=== PATIENT | female | born 1955 | race Caucasian/White ===

== ENCOUNTER 2018-09-17 17:47 | Inpatient (IN) | payer MEDICAID, OTHER ==
[~2018-09-17] VITALS: Ht 167.6 cm; Wt 127.7 kg
[2018-09-17] MEDS ORDERED: NS IV 1000 ML 1,000 ML IV SCH (17:59)
[2018-09-17] MEDS ORDERED: PIPERACILLIN/TAZOBACTAM (BULK) 3.375 GM in NS (IVPB) 100 ML IV STA (17:59)
[2018-09-17] MEDS ORDERED: VANCOMYCIN INJECTION 1,000 MG in NS (IVPB) 250 ML IV SCH (18:15)
[2018-09-17] MEDS ORDERED: NS 100 ML (IVPB) BAG IV ONE (18:15)
[2018-09-17] MEDS ORDERED: IOHEXOL 350 MG/ML 100 ML (OMNIPAQUE 350) VIAL IV ONE (18:15)
[2018-09-17] MEDS ORDERED: CATHETER FLUSH 10 ML SYR IV PRN (18:15)
[2018-09-17] MEDS ORDERED: HOLD METFORMIN - RECEIVED CONTRAST 20 ML VIAL IV SCH (18:15)
[2018-09-17 18:21] LABS: HEMATOCRIT 39 % (35-52); MEAN CORPUSCULAR HEMOGLOBIN 33 PG (25-34); MEAN CORPUSCULAR HGB CONC 33 G/DL (32-36); MEAN CORPUSCULAR VOLUME 100 FL (80-99); PLATELET COUNT 235 10^3/uL (130-400); RED CELL DISTRIBUTION WIDTH 13.7 % (10.0-14.5); WHITE BLOOD COUNT 9.1 10^3/uL (4.3-11.0)
[2018-09-17 18:22] LABS: BASOPHILS % (AUTO) 0 % (0-10); EOSINOPHILS # (AUTO) 0.1 10^3/uL (0.0-0.3); EOSINOPHILS % (AUTO) 1 % (0-10); LYMPHOCYTES # (AUTO) 2.7 X 10^3 (1.0-4.0); LYMPHOCYTES % (AUTO) 29 % (12-44); MONOCYTES # (AUTO) 0.7 X 10^3 (0.0-1.0); MONOCYTES % (AUTO) 8 % (0-12); NEUTROPHILS # (AUTO) 5.6 X 10^3 (1.8-7.8); NEUTROPHILS % (AUTO) 62 % (42-75)
[2018-09-17] MEDS ORDERED: diphenhydrAMINE 50 MG/ML INJ (BENADRYL) IVP ONE (18:30)
[2018-09-17] MEDS ORDERED: methylPREDNISolone 125 MG (Solu-MEDROL) VIAL IVP ONE (18:30)
[2018-09-17 18:40] LABS: CREATININE SERUM 1.04 MG/DL (0.60-1.30); POTASSIUM 4.3 MMOL/L (3.6-5.0)
[2018-09-17 18:41] LABS: BILIRUBIN,TOTAL 0.6 MG/DL (0.1-1.0); CALCIUM 9.4 MG/DL (8.5-10.1); TOTAL PROTEIN 7.6 GM/DL (6.4-8.2)
[2018-09-17 18:42] LABS: ALBUMIN 3.8 GM/DL (3.2-4.5)
[2018-09-17 18:45] LABS: ERYTHROCYTE SEDIMENTATION RATE 12 MM/HR (0-30)
[2018-09-17] MEDS ORDERED: ATOR40TA70 PO (18:47)
[2018-09-17] MEDS ORDERED: LOSA50TA63 PO (18:47)
[2018-09-17] MEDS ORDERED: AMIT50TA3 PO (18:47)
[2018-09-17] MEDS ORDERED: GBPN600T PO (18:47)
[2018-09-17] MEDS ORDERED: FLUO40CA PO (18:47)
[2018-09-17] MEDS ORDERED: OXYB5TAB9 PO (18:47)
[2018-09-17] MEDS ORDERED: IBUP-1780 PO (18:47)
[2018-09-17] MEDS ORDERED: METF-399 PO (18:47)
[2018-09-17] MEDS ORDERED: LIRA0.6P3 SC (18:47)
--- NOTE | 2018-09-17 18:55 | NUR ---
REPORT TO GIOVANNI ALFREDO.
[2018-09-17] MEDS ORDERED: VANCOMYCIN 1000 MG/VIAL ONE (19:05)
[2018-09-17] MEDS ORDERED: NS (IVPB) 250 ML ONE (19:07)
[2018-09-17] MEDS ORDERED: PIPERACILLIN/TAZO 4.5 GM VIAL (ZOSYN) IV ONE (19:07)
--- NOTE | 2018-09-17 19:26 | Diagnostic Imaging Report ---
INDICATION: Left eye swelling and drainage. CT of the orbits with contrast. FINDINGS: There is soft tissue swelling along the left eyelid in the preseptal tissues. There is no evidence of post bulbar edema. The extraocular muscles and optic nerve appear normal. The right orbit appears normal. The globes are symmetrical and normal. There is normal enhancement of the surrounding vessels. There are no bony abnormalities. The paranasal sinuses are well aerated and clear. Nasal septum is midline. IMPRESSION: Preseptal Periorbital edema with no evidence of inflammatory changes posterior to the bulb within the orbits bilaterally. Dictated by: Dictated on workstation # [id number]
--- NOTE | 2018-09-17 20:26 | ED EENT ---
History of Present Illness General Chief Complaint: Eye Problems Stated Complaint: EYE PAIN AND DRAINAGE Nursing Triage Note: PT ARRIVAL PER POV WITH REPORT OF LEFT EYE AREA PAIN AND DRAINAGE. PT BEGAN EYE IRRITATION MONDAY NIGHT AND WORSENING NOW WITH EXTREME REDNESS AND SWELLING INTO TISSUE AROUND ORBIT/CHEEK. NO EYE PAIN REPORTED. Source: patient Exam Limitations: no limitations History of Present Illness Date Seen by Provider: Sep 17, 2018 Time Seen by Provider: 18:00 Initial Comments Patient is a 63 diabetic who presents with redness swelling around left eye starting approximately 3 days prior to ED arrival. Patient denies trauma to that region. No history of MRSA. Pressure around upper eyelid has gradually spread around the orbit with yellow crusting on the surface of eyelid. Patient denies change in vision, or pain with extraocular movement. Blood sugars have also been elevated today in the low 200 region. Patient has a low-grade fever with temperature 99.9F. Patient denies nausea vomiting, sweats. Reports mild dysuria, but denies abdominal pain. No other acute symptoms or complaints. Timing/Duration: gradual Location: eye (L) Prearrival Treatment: no prearrival treatment Modifying Factors: Worse With Activity; Improves With Other Associated Symptoms: fever, malaise Allergies and Home Medications Allergies Uncoded Allergies: IV CONTRAST (Adverse Reaction, Mild, HIVES, 09/17/18) Patient Home Medication List Home Medication List Reviewed: Yes Review of Systems Review of Systems Constitutional: see HPI Eyes: See HPI Ears: See HPI Nose: see HPI Mouth: see HPI Throat: see HPI Respiratory: see HPI Cardiovascular: see HPI Musculoskeletal: see HPI Neurological: See HPI Hematologic/Lymphatic: See HPI Past [id number] Hx Past Med/Social Hx: Reviewed Nursing Past Med/Soc Hx Patient Social History Alcohol Use: Occasionally Uses Recreational Drug Use: No Smoking Status: Former Smoker Type Used: Cigarettes 2nd Hand Smoke Exposure: No Recent Foreign Travel: No Contact w/Someone Who Travel: No Recent Infectious Disease Expo: No Recent Hopitalizations: No Physical Abuse: No Sexual Abuse: No Mistreated: No Fear: No Immunizations Up To Date Tetanus Booster (TDap): Unknown Seasonal Allergies Seasonal Allergies: No Past Medical History Surgeries: Yes (CYSTOSCOPIES, DILITATION URETHRAL STRICTURE) Appendectomy, Bladder Surgery, Section, Eye Surgery, Gallbladder, Tonsillectomy, Tubal Ligation Respiratory: Yes COPD Cardiac: Yes High Cholesterol, Hypertension Neurological: Yes (CVA W/ R SIDED WEAKNESS) Neuropathy, Stroke Genitourinary: Yes (TRIGONITIS) UTI-Chronic Musculoskeletal: Yes (CHRONIC KNEE PAIN) Arthritis Endocrine: Yes (MORBID OBESITY) Diabetes, Insulin dep Psychosocial: Yes Depression Integumentary: Yes (L ORBITAL CELLULITIS, 2018 CHEEK CELLULITIS) Recent Skin Changes Visual Acuity : Eye Location: Left Physical Exam Vital Signs Vital Signs - First Documented 09/17/18 17:52 Temp 99.9 Pulse 83 Resp 18 B/P (MAP) 130/69 (89) Pulse Ox 93 O2 Delivery Room Air Height, Weight, BMI Height: 5'6.00" Weight: 295lbs. oz. 133.435935op; BMI Method:Stated General Appearance: WD/WN, no apparent distress Eyes: left eye lid inflammation, left eye other (cellulitis involving left upper lower eyelids, and maxilla. No sinus tenderness to palpation, no pain with ocular movement.); bilateral eye normal inspection, bilateral eye PERRL, bilateral eye EOMI Nose: normal inspection Mouth/Throat: normal mouth inspection, pharynx normal Neck: non-tender, supple Cardiovascular: normal peripheral pulses, regular rate, rhythm Respiratory: chest non-tender, lungs clear Gastrointestinal: normal bowel sounds, soft Neurologic/Psychiatric: executive administrative asst II-XII nml as tested, alert, oriented x 3 Skin: other Progress/Results/Core Measures Results/Orders Lab Results Laboratory Tests Test 09/17/18 18:00 Range/Units White Blood Count 9.1 4.3-11.0 10^3/uL Red Blood Count 3.92 L 4.35-5.85 10^6/uL Hemoglobin 13.0 11.5-16.0 G/DL Hematocrit 39 35-52 % Mean Corpuscular Volume 100 H 80-99 FL Mean Corpuscular Hemoglobin 33 25-34 PG Mean Corpuscular Hemoglobin Concent 33 32-36 G/DL Red Cell Distribution Width 13.7 10.0-14.5 % Platelet Count 235 130-400 10^3/uL Mean Platelet Volume 9.0 7.4-10.4 FL Neutrophils (%) (Auto) 62 42-75 % Lymphocytes (%) (Auto) 29 12-44 % Monocytes (%) (Auto) 8 0-12 % Eosinophils (%) (Auto) 1 0-10 % Basophils (%) (Auto) 0 0-10 % Neutrophils # (Auto) 5.6 1.8-7.8 X 10^3 Lymphocytes # (Auto) 2.7 1.0-4.0 X 10^3 Monocytes # (Auto) 0.7 0.0-1.0 X 10^3 Eosinophils # (Auto) 0.1 0.0-0.3 10^3/uL Basophils # (Auto) 0.0 0.0-0.1 10^3/uL Erythrocyte Sedimentation Rate 12 0-30 MM/HR Sodium Level 142 135-145 MMOL/L Potassium Level 4.3 3.6-5.0 MMOL/L Chloride Level 104 98-107 MMOL/L Carbon Dioxide Level 26 21-32 MMOL/L Anion Gap 12 5-14 MMOL/L Blood Urea Nitrogen 29 H 7-18 MG/DL Creatinine 1.04 0.60-1.30 MG/DL Estimat Glomerular Filtration Rate 54 BUN/Creatinine Ratio 28 Glucose Level 163 H 70-105 MG/DL Lactic Acid Level 1.56 0.50-2.00 MMOL/L Calcium Level 9.4 8.5-10.1 MG/DL Corrected Calcium 9.6 8.5-10.1 MG/DL Total Bilirubin 0.6 0.1-1.0 MG/DL Aspartate Amino Transf (AST/SGOT) 14 5-34 U/L Alanine Aminotransferase (ALT/SGPT) 14 0-55 U/L Alkaline Phosphatase 68 40-136 U/L Total Protein 7.6 6.4-8.2 GM/DL Albumin 3.8 3.2-4.5 GM/DL My Orders Orders - [facility] DO Diphenhydramine Injection (Benadryl Inje (09/17/18 18:30) Methylprednisolone Sod Succ (Solu-Medrol (09/17/18 18:30) Vancomycin Injection (Vancomycin Injecti (09/17/18 19:05) Ns (Ivpb) (Sodium Chloride 0.9%) (09/17/18 19:07) Piperacillin Sodium/Tazobactam (Zosyn Vi (09/17/18 19:07) Medications Given in ED Current Medications Medications Dose Ordered Sig/Suzi Route Start Time Stop Time Status Last Admin Dose Admin Diphenhydramine HCl 50 mg ONCE ONCE IVP 09/17/18 18:30 09/17/18 18:31 DC 09/17/18 18:49 50 MG Iohexol 100 ml ONCE ONCE IV 09/17/18 18:15 09/17/18 18:16 DC 09/17/18 19:07 75 ML Methylprednisolone Sodium Succinate 125 mg ONCE ONCE IVP 09/17/18 18:30 09/17/18 18:31 DC 09/17/18 18:48 125 MG Sodium Chloride 10 ml NEEDED PRN IV 09/17/18 18:15 09/17/18 19:07 10 ML Sodium Chloride 100 ml ONCE ONCE IV 09/17/18 18:15 09/17/18 18:16 DC 09/17/18 19:07 100 ML Vital Signs/I&O 09/17/18 17:52 Temp 99.9 Pulse 83 Resp 18 B/P (MAP) 130/69 (89) Pulse Ox 93 O2 Delivery Room Air Blood Pressure Mean: 89 Departure Communication (Admissions) No findings of orbital cellulitis on CT imaging study. Lab, reviewed. IV Zosyn and vancomycin initiated. Patient resting comfortably. Dr. 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 Oneal accepts patient Departure-Patient Inst. Decision time for Depature: 20:00 WE[facility] ELLER DO Sep 17, 2018 20:26
[2018-09-17] MEDS ORDERED: CALCIUM CARBONATE 500 MG (TUMS) TAB.CHEW PO PRN (21:15)
[2018-09-17] MEDS ORDERED: fentaNYL INJECTION 100 MCG/2 ML AMP IVP PRN (21:15)
[2018-09-17] MEDS ORDERED: PIPERACILLIN/TAZOBACTAM (BULK) 4.5 GM in NS (IVPB) 100 ML IV SCH (21:15)
[2018-09-17] MEDS ORDERED: LOPERAMIDE 2 MG (IMODIUM) TABLET PO PRN (21:15)
[2018-09-17] MEDS ORDERED: ONDANSETRON 4 MG (ZOFRAN) ORAL DISSOLVE TAB PO PRN ×2 (21:15→21:45)
[2018-09-17] MEDS ORDERED: ACETAMINOPHEN 500 MG TAB (TYLENOL) PO PRN (21:15)
[2018-09-17] MEDS ORDERED: IBUPROFEN TABLET 200 MG TAB PO PRN (21:15)
[2018-09-17] MEDS ORDERED: VANCOMYCIN INJECTION 0.1 MG in NS (IVPB) 250 ML IV SCH (21:15)
[2018-09-17] MEDS ORDERED: MELATONIN 3 MG TABLET PO PRN (21:15)
[2018-09-17] MEDS ORDERED: ALPRAZolam 0.25 MG (XANAX) TAB PO PRN (21:15)
[2018-09-17] MEDS ORDERED: diphenhydrAMINE 25 MG TAB (BENADRYL) PO PRN (21:15)
[2018-09-17] MEDS ORDERED: DOCUSATE SODIUM 100 MG (COLACE) CAP PO PRN (21:15)
[2018-09-17] MEDS ORDERED: ONDANSETRON 4 MG/2 ML (SDV) Z0FRAN IVP PRN (21:15)
[2018-09-17 21:30] VITALS: BP 127/75
--- NOTE | 2018-09-17 21:30 | NUR ---
MORALES WALKER admitted to room 408-1, with an admitting diagnosis of PERIORBITAL CELLULITIS , on 09/17/18 from ED via EMS, accompanied by EMS STAFF.MORALES WALKER introduced to surroundings, call light, bed controls, phone, TV, temperature control, lights, meal times, smoking policy, visitor policy, side rail policy, bathrooms and showers. Patient Rights given to patient in the handbook.MORALES WALKER verbalizes understanding that [facility] is not responsible for the loss or damage to any personal effects or valuables that are kept in the patients posession during their hospitalization.
[2018-09-17] MEDS: HYDROcodone/APAP 5 MG/325 MG (LORTAB) TAB PO PRN (22:06)
[2018-09-17] MEDS ORDERED: VANCOMYCIN 500 MG/VIAL IV ONE (22:51)
[2018-09-17] MEDS ORDERED: VANCOMYCIN INJECTION 1GM (OMNI 250 ML IV ONE (22:52)
[2018-09-17] MEDS ORDERED: NS IV 1000 ML 1,000 ML ONE (22:54)
[2018-09-17] MEDS ORDERED: WATER (STERILE) FOR INJECTION 10 ML ONE (23:00)
--- OUTSIDE RECORDS SUMMARY | 2018-09-17 23:16 | XMS REPORT ---
Author Author Migration, Doctor Organization [facility] Address Unknown Phone Unavailable Care Team Providers Care Vacuum Spindle Sander Name Role Phone Migration, Doctor Unavailable Unavailable PROBLEMS Type Condition ICD9-CM Code WUQ21-PL Code Onset Dates Condition Status SNOMED Code Problem CAD (coronary artery disease) I25.10 Active 15532412 Problem Osteoarthritis of knees, bilateral M17.0 Active 777284059 Problem Essential hypertension I10 Active 37907639 Problem Diabetes E11.9 Active 31743179 Problem Arthritis M19.90 Active 3409625 Problem Morbid obesity E66.01 Active 167596571 Problem Hyperlipemia E78.5 Active [id number] ALLERGIES No Information ENCOUNTERS Encounter Location Date Diagnosis [place] [id number] [place] [address] Jul, [place] [id number] [place] [address] Apr, [place] [address] [address] Mar, Pustular lesion L08.9 and Encounter for immunization Z23 [place] [id number] [place] [address] Feb, [place] [id number] [place] [address] Dec, [place] [id number] [place] [address] Dec, [place] [address] [address] Dec, Diabetes E11.9 ; Essential hypertension I10 ; Arthritis M19.90 ; Urinary frequency R35.0 ; Routine adult health maintenance Z00.00 and BMI 45.0- 49.9, adult Z68.42 [place] [id number] [place] [address] Dec, [facility] [id number] [place] [address] Dec, [facility] [id number] [place] [address] Oct, [place] [id number] [place] [address] Sep, Diabetes E11.9 [place] [id number] [place] [address] Sep, Diabetes E11.9 ; Hyperlipemia E78.5 ; CAD (coronary artery disease) I25.10 ; Essential hypertension I10 and BMI 45.0-49.9, adult Z68.42 [place] [id number] [place] [address] Sep, [place] [id number] [place] [address] August, [place] [id number] [place] [address] Jan, Dysuria R30.0 [place] [id number] [place] [address] Jan, Dysuria R30.0 [place] [id number] [place] [address] Jan, Osteoarthritis of knees, bilateral M17.0 [place] [id number] [place] [address] Nov, Dysuria R30.0 [place] [id number] [place] [address] Oct, Blood in urine R31.9 ; Dysuria R30.0 ; Pharyngeal dysphagia R13.13 ; Acute cystitis with hematuria N30.01 ; CAD (coronary artery disease) I25.10 and Diabetes E11.9 [place] [address] [address] 13 Oct, 2016 [facility] [id number] [place] [address] Sep, Arthritis M19.90 ; Blood in urine R31.9 ; Diabetes E11.9 ; Acute cystitis with hematuria N30.01 and Pharyngoesophageal dysphagia R13.14 [facility] [id number] [place] [address] Sep, Osteoarthritis of knees, bilateral M17.0 [facility] [id number] [place] [address] Sep, Osteoarthritis of knees, bilateral M17.0 [facility] [id number] [place] [address] August, Arthritis M19.90 [facility] [id number] [place] [address] Jul, Arthritis M19.90 [facility] [id number] [place] [address] Jun, Arthritis M19.90 [facility] [id number] [place] [address] Jun, [facility] [id number] [place] [address] Jun, [facility] [id number] [place] [address] May, Diabetes E11.9 ; Dysuria R30.0 and Arthritis M19.90 [facility] [id number] [place] [address] Apr, [facility] [address], [place] [address] Apr, Arthritis M19.90 [facility] [id number] [place] [address] Mar, Arthritis M19.90 [facility] [address], [place] [address] Feb, [facility] [id number] [place] [address] Jan, [facility] [id number] [place] [address] Dec, Diabetes E11.9 and Arthritis M19.90 [facility] [id number] [place] [address] Dec, [facility] [id number] [place] [address] Nov, Arthritis M19.90 [facility] [id number] [place] [address] Nov, [facility] [id number] [place] [address] Oct, Arthritis M19.90 [facility] [id number] [place] [address] Sep, Osteoarthritis of knees, bilateral M17.0 [facility] [id number] [place] [address] Sep, Osteoarthritis of knees, bilateral M17.0 [facility] [id number] [place] [address] August, Arthritis M19.90 [facility] [id number] [place] [address] August, [facility] [id number] [place] [address] Jul, Hyperlipemia E78.5 [facility] [address], [place] [address] Jul, Encounter for well woman exam Z01.419 ; Morbid obesity E66.01 ; Encounter for screening for malignant neoplasm of cervix Z12.4 and Encounter for screening mammogram for breast cancer Z12.31 [place] [address] [place] [address] Jul, Arthritis M19.90 ; Diabetes E11.9 ; Blood in urine R31.9 and UTI (urinary tract infection) N39.0 [place] [id number] [place] [address] Jul, [facility] [id number] [place] [address] Jun, Arthritis M19.90 [place] [id number] [place] [address] May, Arthritis M19.90 [place] [id number] [place] [address] May, [facility] [id number] [place] [address] Apr, [facility] [id number] [place] [address] Apr, Arthritis M19.90 ; Diabetes E11.9 and Morbid obesity E66.01 [place] [id number] [place] [address] Apr, [place] [id number] [place] [address] Apr, Dyspareunia N94.1 [place] [id number] [place] [address] Apr, [place] [id number] [place] [address] Apr, [place] [address] [place] [address] 14 Apr, 2015 Osteoarthritis of knees, bilateral M17.0 [place] [id number] [place] [address] Apr, Diabetes E11.9 and CAD (coronary artery disease) I25.10 [facility] [id number] [place] [address] Mar, [facility] [id number] [place] [address] Feb, [facility] [id number] [place] [address] Jan, [facility] [id number] [place] [address] Jan, [facility] [id number] [place] [address] Jan, [facility] [id number] [place] [address] Jan, Osteoarthritis of knees, bilateral M17.0 [facility] [id number] [place] [address] Dec, [facility] [id number] [place] [address] Dec, [facility] [id number] [place] [address] Dec, [facility] [id number] [place] [address] 08 Dec, 2014 Diabetes mellitus 250.00 and UTI (urinary tract infection) 599.0 [facility] [address] [place] [address] Dec, [facility] [id number] [place] [address] Nov, [facility] [id number] [place] [address] Oct, [facility] [id number] [place] [address] Oct, [facility] [place] [facility] [address] [id number] [place] [address] Oct, [facility] [place] [facility] [address] [id number] [place] [address] Oct, [facility] [place] [facility] [address] [id number] [place] [address] Oct, [facility] [place] [facility] [address] [id number] [place] [address] Sep, [facility] [place] [facility] [address] [id number] [place] [address] August, [facility] [place] [facility] [address] [id number] [place] [address] August, [facility] [place] [facility] [address] [id number] [place] [address] August, [facility] [place] [facility] [address] [id number] [place] [address] Jul, [facility] [place] [facility] [address] [id number] [place] [address] Jul, [facility] [place] [facility] [address] [id number] [place] [address] Jul, [facility] [place] [facility] [address] [id number] [place] [address] Jun, [facility] [place] [facility] [address] [id number] [place] [address] Jun, [facility] [place] [facility] [address] [id number] [place] [address] Jun, [facility] [place] [facility] [address] [id number] [place] [address] Jun, [facility] [place] [facility] [address] [id number] [place] [address] Jun, [facility] [place] [facility] [address] [id number], [place] [address] Jun, [facility] [place] [facility] [address] [id number] [place] [address] Jun, [facility] [place] [facility] [address] [id number] [place] [address] Jun, [facility] [place] [facility] [address] [facility] [id number] [place] [address] May, 2014 [facility] [place] [facility] [address] [id number] [place] [address] May, 2014 [facility] [place] [facility] [address] [id number] [place] [address] May, 2014 [facility] [place] [facility] [address] [facility] [id number] [place] [address] May, 2014 [facility] [place] [facility] [address] [facility] [id number] [place] [address] May, 2014 [facility] [place] [facility] [address] [facility] [id number] [place] [address] May, 2014 [facility] [place] [facility] [address] [facility] [id number] [place] [address] May, 2014 [facility] [place] [facility] [address] [facility] [id number] [place] [address] May, 2014 [facility] [place] [facility] [address] [facility] [id number] [place] [address] May, 2014 [facility] [place] [facility] [address] [facility] [id number] [place] [address] May, 2014 [facility] [place] [facility] [address] [facility] [id number] [place] [address] May, 2014 [facility] [place] [facility] [address] [facility] [id number] [place] [address] May, 2014 [facility] [place] [facility] [address] [facility] [id number] [place] [address] Apr, [facility] [place] [facility] [address] [id number] [place] [address] Apr, [facility] [place] [facility] [address] [id number] [place] [address] Mar, [facility] [place] [facility] [address] [id number] [place] [address] Mar, [facility] [place] [facility] [address] [id number] [place] [address] Mar, [facility] [place] [facility] [address] [id number] [place] [address] Mar, [facility] [place] [facility] [address] [id number] [place] [address] Mar, [facility] [place] [facility] [address] [id number] [place] [address] Mar, [facility] [place] [facility] [address] [id number] [place] [address] Feb, [facility] [place] [facility] [address] [id number] [place] [address] Feb, [facility] [place] [facility] [address] [id number] [place] [address] Feb, [facility] [place] [facility] [address] [id number], [place] [address] Feb, [facility] [place] [facility] [address] [id number], [place] [address] Feb, [facility] [place] [facility] [address] [id number] [place] [address] Feb, [facility] [place] [facility] [address] [id number] [place] [address] Feb, [facility] [place] [facility] [address] [id number], [place] [address] Feb, [facility] [place] [facility] [address] [id number] [place] [address] Feb, [facility] [place] [facility] [address] [id number] [place] [address] Jan, [facility] [place] [facility] [address] [id number] [place] [address] Jan, [facility] [place] [facility] [address] [id number] [place] [address] Jan, [facility] [place] [facility] [address] [id number] [place] [address] Jan, [facility] [place] [facility] [address] [id number] [place] [address] Jan, [facility] [place] [facility] [address] [id number] [place] [address] Jan, [facility] [place] [facility] [address] [id number] [place] [address] Jan, [facility] [place] [facility] [address] [id number] [place] [address] Jan, [facility] [place] [facility] [address] [id number] [place] [address] Jan, [facility] [place] [facility] [address] [id number] [place] [address] Jan, [facility] [place] [facility] [address] [id number] [place] [address] 19 Dec, 2013 [facility] [place] [facility] [address] [id number] [place] [address] 19 Dec, 2013 [facility] [place] [facility] [address] [id number] [place] [address] 10 Dec, 2013 [facility] [place] [facility] [address] [id number] [place] [address] Dec, [facility] [place] [facility] [address] [id number] [place] [address] Nov, [facility] [place] [facility] [address] [id number] [place] [address] Nov, [facility] [place] [facility] [address] [id number] [place] [address] Nov, [facility] [place] [facility] [address] [id number] [place] [address] Nov, [facility] [place] [facility] [address] [id number] [place] [address] Nov, [facility] [place] [facility] [address] [id number] [place] [address] Nov, [facility] [place] [facility] [address] [id number] [place] [address] Nov, [facility] [place] [facility] [address] [id number] [place] [address] Nov, [facility] [place] [facility] [address] [id number] [place] [address] Nov, [facility] [place] [facility] [address] [id number] [place] [address] Oct, [facility] [place] [facility] [address] [id number] [place] [address] Oct, [facility] [place] [facility] [address] [id number] [place] [address] Sep, [facility] [place] [facility] [address] [id number] [place] [address] Sep, [facility] [place] [facility] [address] [id number] [place] [address] Sep, [facility] [place] [facility] [address] [id number] [place] [address] Sep, [facility] [place] [facility] [address] [id number] [place] [address] Sep, [facility] [place] [facility] [address] [id number] [place] [address] Sep, [facility] [place] [facility] [address] [id number] [place] [address] Sep, [facility] [place] [facility] [address] [id number] [place] [address] Sep, [facility] [place] [facility] [address] [id number] [place] [address] Sep, [facility] [place] [facility] [address] [id number] [place] [address] Sep, [facility] [place] [facility] [address] [id number] [place] [address] Sep, [facility] [place] [facility] [address] [id number] [place] [address] Sep, [facility] [place] [facility] [address] [id number] [place] [address] Sep, [facility] [place] [facility] [address] [id number] [place] [address] Sep, [facility] [place] [facility] [address] [id number] [place] [address] August, [facility] [place] [facility] [address] [id number] [place] [address] August, [facility] [place] [facility] [address] [id number] [place] [address] August, [facility] [place] [facility] [address] [id number] [place] [address] August, [facility] [place] [facility] [address] [id number] [place] [address] Jul, [facility] [place] [facility] [address] [id number] [place] [address] Jul, [facility] [place] [facility] [address] [id number] [place] [address] Jul, [facility] [place] [facility] [address] [id number] [place] [address] Jul, [facility] [place] [facility] [address] [id number] [place] [address] Jun, [facility] [place] [facility] [address] [id number] [place] [address] Jun, [facility] [place] [facility] [address] [id number] [place] [address] May, [facility] [place] [facility] [address] [id number] [place] [address] May, [facility] [place] [facility] [address] [id number] [place] [address] May, [facility] [place] [facility] [address] [id number] [place] [address] May, [facility] [place] [facility] [address] [id number] [place] [address] May, [facility] [place] [facility] [address] [id number] [place] [address] May, [facility] [place] [facility] [address] [id number] [place] [address] May, [facility] [place] [facility] [address] [id number] [place] [address] May, [facility] [place] [facility] [address] [id number] [place] [address] May, [facility] [place] [facility] [address] [id number] [place] [address] Apr, [facility] [place] [facility] [address] [id number] [place] [address] Apr, [facility] [place] [facility] [address] [id number] [place] [address] Apr, [facility] [place] [facility] [address] [id number], [place] [address] Apr, [facility] [place] [facility] [address] [id number] [place] [address] Apr, [facility] [place] [facility] [address] [id number], [place] [address] Mar, [facility] [place] [facility] [address] [id number] [place] [address] Mar, [facility] [place] [facility] [address] [id number], [place] [address] Feb, [facility] [place] [facility] [address] [id number] [place] [address] Feb, [facility] [place] [facility] [address] [id number] [place] [address] Feb, [facility] [place] [facility] [address] [id number] [place] [address] Feb, [facility] [place] [facility] [address] [id number], [place] [address] Feb, [facility] [place] [facility] [address] [id number], [place] [address] Feb, [facility] [place] [facility] [address] [id number] [place] [address] Feb, [facility] [place] [facility] [address] [id number], [place] [address] Feb, [facility] [place] [facility] [address] [id number], [place] [address] Feb, [facility] [place] [facility] [address] [id number], [place] [address] Jan, [facility] [place] [facility] [address] [id number], [place] [address] Jan, [facility] [place] [facility] [address] [id number], [place] [address] Jan, [facility] [place] [facility] [address] [id number] [place] [address] Jan, [facility] [address] [id number] [place] [address] Jan, [facility] [address] [id number] [place] [address] Dec, [facility] [address] [id number] [place] [address] Dec, [facility] [address] [id number] [place] [address] Nov, [facility] [address] [id number] [place] [address] Nov, [facility] [address] [id number] [place] [address] Oct, [facility] [address] [id number] [place] [address] Oct, [facility] [address] [id number] [place] [address] Oct, [facility] [address] [id number] [place] [address] Sep, [facility] [address] [id number] [place] [address] Sep, [facility] [address] [id number] [place] [address] Sep, [facility] [address] [id number] [place] [address] August, [facility] [place] [facility] [address] [id number] [place] [address] August, [facility] [address] [id number] [place] [address] August, [facility] [address] [id number] [place] [address] August, [facility] [address] [id number] [place] [address] Jul, [facility] [place] [facility] [address] [id number] [place] [address] Jun, [facility] [place] [facility] [address] [id number] [place] [address] Jun, [facility] [place] [facility] [address] [id number] [place] [address] Jun, [facility] [place] [facility] [address] [id number] [place] [address] May, [facility] [place] [facility] [address] [id number] [place] [address] May, [facility] [place] [facility] [address] [id number] [place] [address] May, [facility] [place] [facility] [address] [id number] [place] [address] May, [facility] [place] [facility] [address] [id number] [place] [address] Apr, [facility] [place] [facility] [address] [id number] [place] [address] Apr, [facility] [place] [facility] [address] [id number] [place] [address] 15 Apr, 2012 [facility] [place] [facility] [address] [id number] [place] [address] 14 Apr, 2012 [facility] [place] [facility] [address] [id number] [place] [address] Apr, [facility] [place] [facility] [address] [id number] [place] [address] Mar, [facility] [place] [facility] [address] [id number] [place] [address] Mar, [facility] [place] [facility] [address] [address] [id number] [place] [address] Mar, [facility] [place] [facility] [address] [id number] [place] [address] Mar, [facility] [place] [facility] [address] [id number] [place] [address] Mar, [facility] [place] [facility] [address] [id number] [place] [address] Mar, [facility] [place] [facility] [address] [id number] [place] [address] Mar, [facility] [place] [facility] [address] [id number] [place] [address] Feb, [facility] [place] [facility] [address] [id number] [place] [address] Feb, [facility] [place] [facility] [address] [id number] [place] [address] Feb, [facility] [place] [facility] [address] [id number] [place] [address] Feb, [facility] [place] [facility] [address] [id number] [place] [address] Feb, [facility] [place] [facility] [address] [facility] [id number] [place] [address] Feb, [facility] [place] [facility] [address] [id number] [place] [address] Feb, [facility] [place] [facility] [address] [id number] [place] [address] Feb, [facility] [place] [facility] [address] [id number] [place] [address] Jan, [facility] [place] [facility] [address] [id number] [place] [address] Jan, [facility] [place] [facility] [address] [id number] [place] [address] Jan, [facility] [place] [facility] [address] [id number] [place] [address] 11 Jan, 2012 [facility] [place] [facility] [address] [id number] [place] [address] 27 Dec, 2011 [facility] [place] [facility] [address] [id number] [place] [address] 25 Dec, 2011 [facility] [place] [facility] [address] [id number] [place] [address] 18 Dec, 2011 [facility] [place] [facility] [address] [id number] [place] [address] 13 Dec, 2011 [facility] [place] [facility] [address] [id number] [place] [address] 11 Dec, 2011 [facility] [place] [facility] [address] [id number] [place] [address] Oct, [facility] [place] [facility] [address] [id number] [place] [address] Oct, [facility] [place] [facility] [address] [id number] [place] [address] Sep, [facility] [place] [facility] [address] [id number] [place] [address] Sep, [facility] [place] [facility] [address] [id number] [place] [address] August, [facility] [place] [facility] [address] [id number] [place] [address] August, [facility] [place] [facility] [address] [id number] [place] [address] Jul, [facility] [place] [facility] [address] [id number] [place] [address] Jun, [facility] [place] [facility] [address] [id number] [place] [address] Jun, [facility] [place] [facility] [address] [id number] [place] [address] 23 Jun, 2011 [facility] [address] [id number] [place] [address] 19 Jun, 2011 [facility] [place] [facility] [address] [id number] [place] [address] Jun, [facility] [place] [facility] [address] [id number] [place] [address] 24 May, 2011 [facility] [place] [facility] [address] [id number] [place] [address] 22 May, 2011 [facility] [place] [facility] [address] [id number] [place] [address] 20 May, 2011 [facility] [place] [facility] [address] [id number] [place] [address] 14 May, 2011 [facility] [address] [id number] [place] [address] 13 May, 2011 [facility] [place] [facility] [address] [id number] [place] [address] 03 May, 2011 [facility] [place] [facility] [address] [id number] [place] [address] 02 May, 2011 [facility] [address] [facility] [id number] [place] [address] 02 May, 2011 [facility] [address] [id number] [place] [address] Apr, [facility] [place] [facility] [address] [id number] [place] [address] Mar, [facility] [place] [facility] [address] [id number] [place] [address] Mar, [facility] [place] [facility] [address] [id number] [place] [address] Mar, [facility] [place] [facility] [address] [id number] [place] [address] Mar, [facility] [address] [facility] [id number], [place] [address] Mar, [facility] [address] [facility] [id number], [place] [address] Jan, [facility] [address] [facility] [id number], [place] [address] Jan, [facility] [id number], [place] [address] Jan, [facility] [address] [facility] [id number], [place] [address] August, [facility] [id number], [place] [address] Mar, [facility] [id number], [place] [address] Feb, [facility] [id number], [place] [address] Jan, [facility] [address] [id number] [address] Jan, IMMUNIZATIONS No Known Immunizations SOCIAL HISTORY Never Assessed REASON FOR VISIT [facility] PLAN OF CARE VITAL SIGNS MEDICATIONS Unknown Medications RESULTS No Results PROCEDURES No Known procedures INSTRUCTIONS MEDICATIONS ADMINISTERED No Known Medications MEDICAL (GENERAL) HISTORY Type Description Date Medical History diabetes mellitus Medical History morbid obesity Medical History hypertension Medical History chronic pain Medical History Anxiety disorder Surgical History cholecystectomy Surgical History x 2 Hospitalization History surgeries Hospitalization History labor and delivery
--- OUTSIDE RECORDS SUMMARY | 2018-09-17 23:17 | XMS REPORT ---
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 Name Role Phone Migration, Doctor Unavailable Unavailable PROBLEMS Type Condition ICD9-CM Code JOQ85-RJ Code Onset Dates Condition Status SNOMED Code Problem CAD (coronary artery disease) I25.10 Active 00259517 Problem Osteoarthritis of knees, bilateral M17.0 Active 612762227 Problem Essential hypertension I10 Active 32526070 Problem Diabetes E11.9 Active 38989562 Problem Arthritis M19.90 Active 2059147 Problem Morbid obesity E66.01 Active 484232946 Problem Hyperlipemia E78.5 Active 88028978 ALLERGIES No Information ENCOUNTERS Encounter Location Date Diagnosis [place] [id number] [place] [address] Jul, [place] [id number] [place] [address] Apr, [place] [address] [address] Mar, Pustular lesion L08.9 and Encounter for immunization Z23 [place] [id number] [place] [address] Feb, [place] [id number] [place] [address] Dec, [place] [id number] [place] [address] Dec, [place] [address] [address] Dec, Diabetes E11.9 ; Essential hypertension I10 ; Arthritis M19.90 ; Urinary frequency R35.0 ; Routine adult health maintenance Z00.00 and BMI 45.0- 49.9, adult Z68.42 [place] [id number] [place] [address] Dec, [facility] [id number] [place] [address] Dec, [facility] [id number] [place] [address] Oct, [place] [id number] [place] [address] Sep, Diabetes E11.9 [place] [id number] [place] [address] Sep, Diabetes E11.9 ; Hyperlipemia E78.5 ; CAD (coronary artery disease) I25.10 ; Essential hypertension I10 and BMI 45.0-49.9, adult Z68.42 [place] [id number] [place] [address] Sep, [place] [id number] [place] [address] August, [place] [id number] [place] [address] Jan, Dysuria R30.0 [place] [id number] [place] [address] Jan, Dysuria R30.0 [place] [id number] [place] [address] Jan, Osteoarthritis of knees, bilateral M17.0 [place] [id number] [place] [address] Nov, Dysuria R30.0 [place] [id number] [place] [address] Oct, Blood in urine R31.9 ; Dysuria R30.0 ; Pharyngeal dysphagia R13.13 ; Acute cystitis with hematuria N30.01 ; CAD (coronary artery disease) I25.10 and Diabetes E11.9 [place] [address] [address] 13 Oct, 2016 [facility] [id number] [place] [address] Sep, Arthritis M19.90 ; Blood in urine R31.9 ; Diabetes E11.9 ; Acute cystitis with hematuria N30.01 and Pharyngoesophageal dysphagia R13.14 [facility] [id number] [place] [address] Sep, Osteoarthritis of knees, bilateral M17.0 [facility] [id number] [place] [address] Sep, Osteoarthritis of knees, bilateral M17.0 [facility] [id number] [place] [address] August, Arthritis M19.90 [facility] [id number] [place] [address] Jul, Arthritis M19.90 [facility] [id number] [place] [address] Jun, Arthritis M19.90 [facility] [id number] [place] [address] Jun, [facility] [id number] [place] [address] Jun, [facility] [id number] [place] [address] May, Diabetes E11.9 ; Dysuria R30.0 and Arthritis M19.90 [facility] [id number] [place] [address] Apr, [facility] [address] [address] Apr, Arthritis M19.90 [facility] [id number] [place] [address] Mar, Arthritis M19.90 [facility] [address] [address] Feb, [facility] [id number] [place] [address] Jan, [facility] [id number] [place] [address] Dec, Diabetes E11.9 and Arthritis M19.90 [facility] [id number] [place] [address] Dec, [facility] [id number] [place] [address] Nov, Arthritis M19.90 [facility] [id number] [place] [address] Nov, [facility] [id number] [place] [address] Oct, Arthritis M19.90 [facility] [id number] [place] [address] Sep, Osteoarthritis of knees, bilateral M17.0 [facility] [id number] [place] [address] Sep, Osteoarthritis of knees, bilateral M17.0 [facility] [id number] [place] [address] August, Arthritis M19.90 [facility] [id number] [place] [address] August, [facility] [id number] [place] [address] Jul, Hyperlipemia E78.5 [facility] [address] [address] Jul, Encounter for well woman exam Z01.419 ; Morbid obesity E66.01 ; Encounter for screening for malignant neoplasm of cervix Z12.4 and Encounter for screening mammogram for breast cancer Z12.31 [place] [id number] [place] [address] Jul, Arthritis M19.90 ; Diabetes E11.9 ; Blood in urine R31.9 and UTI (urinary tract infection) N39.0 [place] [id number] [place] [address] Jul, [facility] [id number] [place] [address] Jun, Arthritis M19.90 [place] [id number] [place] [address] May, Arthritis M19.90 [place] [id number] [place] [address] May, [facility] [id number] [place] [address] Apr, [facility] [id number] [place] [address] Apr, Arthritis M19.90 ; Diabetes E11.9 and Morbid obesity E66.01 [place] [id number] [place] [address] Apr, [place] [id number] [place] [address] Apr, Dyspareunia N94.1 [place] [id number] [place] [address] Apr, [place] [id number] [place] [address] Apr, [place] [id number] [place] [address] 14 Apr, 2015 Osteoarthritis of knees, bilateral M17.0 [place] [id number] [place] [address] Apr, Diabetes E11.9 and CAD (coronary artery disease) I25.10 [facility] [id number] [place] [address] Mar, [facility] [id number] [place] [address] Feb, [facility] [id number] [place] [address] Jan, [facility] [id number] [place] [address] Jan, [facility] [id number] [place] [address] Jan, [facility] [id number] [place] [address] Jan, Osteoarthritis of knees, bilateral M17.0 [facility] [id number] [place] [address] Dec, [facility] [id number] [place] [address] Dec, [facility] [id number] [place] [address] Dec, [facility] [id number] [place] [address] 08 Dec, 2014 Diabetes mellitus 250.00 and UTI (urinary tract infection) 599.0 [facility] [address] [place] [address] Dec, [facility] [id number] [place] [address] Nov, [facility] [id number] [place] [address] Oct, [facility] [id number] [place] [address] Oct, [facility] [place] [facility] [address] [id number] [place] [address] Oct, [facility] [place] [facility] [address] [id number] [place] [address] Oct, [facility] [place] [facility] [address] [id number] [place] [address] Oct, [facility] [place] [facility] [address] [id number] [place] [address] Sep, [facility] [place] [facility] [address] [id number] [place] [address] August, [facility] [place] [facility] [address] [id number] [place] [address] August, [facility] [place] [facility] [address] [id number] [place] [address] August, [facility] [place] [facility] [address] [id number] [place] [address] Jul, [facility] [place] [facility] [address] [id number] [place] [address] Jul, [facility] [place] [facility] [address] [id number] [place] [address] Jul, [facility] [place] [facility] [address] [id number] [place] [address] Jun, [facility] [place] [facility] [address] [id number] [place] [address] Jun, [facility] [place] [facility] [address] [id number] [place] [address] Jun, [facility] [place] [facility] [address] [id number] [place] [address] Jun, [facility] [place] [facility] [address] [id number] [place] [address] Jun, [facility] [place] [facility] [address] [id number] [address] Jun, [facility] [place] [facility] [address] [id number] [place] [address] Jun, [facility] [place] [facility] [address] [id number] [place] [address] Jun, [facility] [place] [facility] [address] [facility] [id number] [place] [address] May, 2014 [facility] [place] [facility] [address] [id number] [place] [address] May, 2014 [facility] [place] [facility] [address] [id number] [place] [address] May, 2014 [facility] [place] [facility] [address] [facility] [id number] [place] [address] May, 2014 [facility] [place] [facility] [address] [facility] [id number] [place] [address] May, 2014 [facility] [place] [facility] [address] [facility] [id number] [place] [address] May, 2014 [facility] [place] [facility] [address] [facility] [id number] [place] [address] May, 2014 [facility] [place] [facility] [address] [facility] [id number] [place] [address] May, 2014 [facility] [place] [facility] [address] [facility] [id number] [place] [address] May, 2014 [facility] [place] [facility] [address] [facility] [id number] [place] [address] May, 2014 [facility] [place] [facility] [address] [facility] [id number] [place] [address] May, 2014 [facility] [place] [facility] [address] [facility] [id number] [place] [address] May, 2014 [facility] [place] [facility] [address] [facility] [id number] [place] [address] Apr, [facility] [place] [facility] [address] [id number] [place] [address] Apr, [facility] [place] [facility] [address] [id number] [place] [address] Mar, [facility] [place] [facility] [address] [id number] [place] [address] Mar, [facility] [place] [facility] [address] [id number] [place] [address] Mar, [facility] [place] [facility] [address] [id number] [place] [address] Mar, [facility] [place] [facility] [address] [id number] [place] [address] Mar, [facility] [place] [facility] [address] [id number] [place] [address] Mar, [facility] [place] [facility] [address] [id number] [place] [address] Feb, [facility] [place] [facility] [address] [id number] [place] [address] Feb, [facility] [place] [facility] [address] [id number] [place] [address] Feb, [facility] [place] [facility] [address] [id number] [address] Feb, [facility] [place] [facility] [address] [id number] [place] [address] Feb, [facility] [place] [facility] [address] [id number] [place] [address] Feb, [facility] [place] [facility] [address] [id number] [place] [address] Feb, [facility] [place] [facility] [address] [id number] [place] [address] Feb, [facility] [place] [facility] [address] [id number] [place] [address] Feb, [facility] [place] [facility] [address] [id number] [place] [address] Jan, [facility] [place] [facility] [address] [id number] [place] [address] Jan, [facility] [place] [facility] [address] [id number] [place] [address] Jan, [facility] [place] [facility] [address] [id number] [place] [address] Jan, [facility] [place] [facility] [address] [id number] [place] [address] Jan, [facility] [place] [facility] [address] [id number] [place] [address] Jan, [facility] [place] [facility] [address] [id number] [place] [address] Jan, [facility] [place] [facility] [address] [id number] [place] [address] Jan, [facility] [place] [facility] [address] [id number] [place] [address] Jan, [facility] [place] [facility] [address] [id number] [place] [address] Jan, [facility] [place] [facility] [address] [id number] [place] [address] 19 Dec, 2013 [facility] [place] [facility] [address] [id number] [place] [address] 19 Dec, 2013 [facility] [place] [facility] [address] [id number] [place] [address] 10 Dec, 2013 [facility] [place] [facility] [address] [id number] [place] [address] Dec, [facility] [place] [facility] [address] [id number] [place] [address] Nov, [facility] [place] [facility] [address] [id number] [place] [address] Nov, [facility] [place] [facility] [address] [id number] [place] [address] Nov, [facility] [place] [facility] [address] [id number] [place] [address] Nov, [facility] [place] [facility] [address] [id number] [place] [address] Nov, [facility] [place] [facility] [address] [id number] [place] [address] Nov, [facility] [place] [facility] [address] [id number] [place] [address] Nov, [facility] [place] [facility] [address] [id number] [place] [address] Nov, [facility] [place] [facility] [address] [id number] [place] [address] Nov, [facility] [place] [facility] [address] [id number] [place] [address] Oct, [facility] [place] [facility] [address] [id number] [place] [address] Oct, [facility] [place] [facility] [address] [id number] [place] [address] Sep, [facility] [place] [facility] [address] [id number] [place] [address] Sep, [facility] [place] [facility] [address] [id number] [place] [address] Sep, [facility] [place] [facility] [address] [id number] [place] [address] Sep, [facility] [place] [facility] [address] [id number] [place] [address] Sep, [facility] [place] [facility] [address] [id number] [place] [address] Sep, [facility] [place] [facility] [address] [id number] [place] [address] Sep, [facility] [place] [facility] [address] [id number] [place] [address] Sep, [facility] [place] [facility] [address] [id number] [place] [address] Sep, [facility] [place] [facility] [address] [id number] [place] [address] Sep, [facility] [place] [facility] [address] [id number] [place] [address] Sep, [facility] [place] [facility] [address] [id number] [place] [address] Sep, [facility] [place] [facility] [address] [id number] [place] [address] Sep, [facility] [place] [facility] [address] [id number] [place] [address] Sep, [facility] [place] [facility] [address] [id number] [place] [address] August, [facility] [place] [facility] [address] [id number] [place] [address] August, [facility] [place] [facility] [address] [id number] [place] [address] August, [facility] [place] [facility] [address] [id number] [place] [address] August, [facility] [place] [facility] [address] [id number] [place] [address] Jul, [facility] [place] [facility] [address] [id number] [place] [address] Jul, [facility] [place] [facility] [address] [id number] [place] [address] Jul, [facility] [place] [facility] [address] [id number] [place] [address] Jul, [facility] [place] [facility] [address] [id number] [place] [address] Jun, [facility] [place] [facility] [address] [id number] [place] [address] Jun, [facility] [place] [facility] [address] [id number] [place] [address] May, [facility] [place] [facility] [address] [id number] [place] [address] May, [facility] [place] [facility] [address] [id number] [place] [address] May, [facility] [place] [facility] [address] [id number] [place] [address] May, [facility] [place] [facility] [address] [id number] [place] [address] May, [facility] [place] [facility] [address] [id number] [place] [address] May, [facility] [place] [facility] [address] [id number] [place] [address] May, [facility] [place] [facility] [address] [id number] [place] [address] May, [facility] [place] [facility] [address] [id number] [place] [address] May, [facility] [place] [facility] [address] [id number] [place] [address] Apr, [facility] [place] [facility] [address] [id number] [place] [address] Apr, [facility] [place] [facility] [address] [id number] [place] [address] Apr, [facility] [place] [facility] [address] [id number] [address] Apr, [facility] [place] [facility] [address] [id number] [place] [address] Apr, [facility] [place] [facility] [address] [id number] [place] [address] Mar, [facility] [place] [facility] [address] [id number] [place] [address] Mar, [facility] [place] [facility] [address] [id number] [place] [address] Feb, [facility] [place] [facility] [address] [id number] [place] [address] Feb, [facility] [place] [facility] [address] [id number] [place] [address] Feb, [facility] [place] [facility] [address] [id number] [place] [address] Feb, [facility] [place] [facility] [address] [id number] [place] [address] Feb, [facility] [place] [facility] [address] [id number] [place] [address] Feb, [facility] [place] [facility] [address] [id number] [place] [address] Feb, [facility] [place] [facility] [address] [id number] [place] [address] Feb, [facility] [place] [facility] [address] [id number] [place] [address] Feb, [facility] [place] [facility] [address] [id number] [place] [address] Jan, [facility] [place] [facility] [address] [id number] [place] [address] Jan, [facility] [place] [facility] [address] [id number] [place] [address] Jan, [facility] [place] [facility] [address] [id number] [place] [address] Jan, [facility] [address] [id number] [place] [address] Jan, [facility] [address] [id number] [place] [address] Dec, [facility] [address] [id number] [place] [address] Dec, [facility] [address] [id number] [place] [address] Nov, [facility] [address] [id number] [place] [address] Nov, [facility] [address] [id number] [place] [address] Oct, [facility] [address] [id number] [place] [address] Oct, [facility] [address] [id number] [place] [address] Oct, [facility] [address] [id number] [place] [address] Sep, [facility] [address] [id number] [place] [address] Sep, [facility] [address] [id number] [place] [address] Sep, [facility] [address] [id number] [place] [address] August, [facility] [place] [facility] [address] [id number] [place] [address] August, [facility] [address] [id number] [place] [address] August, [facility] [address] [id number] [place] [address] August, [facility] [address] [id number] [place] [address] Jul, [facility] [place] [facility] [address] [id number] [place] [address] Jun, [facility] [place] [facility] [address] [id number] [place] [address] Jun, [facility] [place] [facility] [address] [id number] [place] [address] Jun, [facility] [place] [facility] [address] [id number] [place] [address] May, [facility] [place] [facility] [address] [id number] [place] [address] May, [facility] [place] [facility] [address] [id number] [place] [address] May, [facility] [place] [facility] [address] [id number] [place] [address] May, [facility] [place] [facility] [address] [id number] [place] [address] Apr, [facility] [place] [facility] [address] [id number] [place] [address] Apr, [facility] [place] [facility] [address] [id number] [place] [address] 15 Apr, 2012 [facility] [place] [facility] [address] [id number] [place] [address] 14 Apr, 2012 [facility] [place] [facility] [address] [id number] [place] [address] Apr, [facility] [place] [facility] [address] [id number] [place] [address] Mar, [facility] [place] [facility] [address] [id number] [place] [address] Mar, [facility] [place] [facility] [address] [id number] [place] [address] Mar, [facility] [place] [facility] [address] [id number] [place] [address] Mar, [facility] [place] [facility] [address] [id number] [place] [address] Mar, [facility] [place] [facility] [address] [id number] [place] [address] Mar, [facility] [place] [facility] [address] [id number] [place] [address] Mar, [facility] [place] [facility] [address] [id number] [place] [address] Feb, [facility] [place] [facility] [address] [id number] [place] [address] Feb, [facility] [place] [facility] [address] [id number] [place] [address] Feb, [facility] [place] [facility] [address] [id number] [place] [address] Feb, [facility] [place] [facility] [address] [id number] [place] [address] Feb, [facility] [place] [facility] [address] [facility] [id number] [place] [address] Feb, [facility] [place] [facility] [address] [id number] [place] [address] Feb, [facility] [place] [facility] [address] [id number] [place] [address] Feb, [facility] [place] [facility] [address] [id number] [place] [address] Jan, [facility] [place] [facility] [address] [id number] [place] [address] Jan, [facility] [place] [facility] [address] [id number] [place] [address] Jan, [facility] [place] [facility] [address] [id number] [place] [address] 11 Jan, 2012 [facility] [place] [facility] [address] [id number] [place] [address] 27 Dec, 2011 [facility] [place] [facility] [address] [id number] [place] [address] 25 Dec, 2011 [facility] [place] [facility] [address] [id number] [place] [address] 18 Dec, 2011 [facility] [place] [facility] [address] [id number] [place] [address] 13 Dec, 2011 [facility] [place] [facility] [address] [id number] [place] [address] 11 Dec, 2011 [facility] [place] [facility] [address] [id number] [place] [address] Oct, [facility] [place] [facility] [address] [id number] [place] [address] Oct, [facility] [place] [facility] [address] [id number] [place] [address] Sep, [facility] [place] [facility] [address] [id number] [place] [address] Sep, [facility] [place] [facility] [address] [id number] [place] [address] August, [facility] [place] [facility] [address] [id number] [place] [address] August, [facility] [place] [facility] [address] [id number] [place] [address] Jul, [facility] [place] [facility] [address] [id number] [place] [address] Jun, [facility] [place] [facility] [address] [id number] [place] [address] Jun, [facility] [place] [facility] [address] [id number] [place] [address] 23 Jun, 2011 [facility] [address] [id number] [place] [address] 19 Jun, 2011 [facility] [place] [facility] [address] [id number] [place] [address] Jun, [facility] [place] [facility] [address] [id number] [place] [address] 24 May, 2011 [facility] [place] [facility] [address] [id number] [place] [address] 22 May, 2011 [facility] [place] [facility] [address] [id number] [place] [address] 20 May, 2011 [facility] [place] [facility] [address] [id number] [place] [address] 14 May, 2011 [facility] [address] [id number] [place] [address] 13 May, 2011 [facility] [place] [facility] [address] [id number] [place] [address] 03 May, 2011 [facility] [place] [facility] [address] [id number] [place] [address] 02 May, 2011 [facility] [address] [facility] [id number] [place] [address] 02 May, 2011 [facility] [address] [id number] [place] [address] Apr, [facility] [place] [facility] [address] [id number] [place] [address] Mar, [facility] [place] [facility] [address] [id number] [place] [address] Mar, [facility] [place] [facility] [address] [id number] [place] [address] Mar, [facility] [place] [facility] [address] [id number] [place] [address] Mar, [facility] [address] [facility] [id number] [address] Mar, [facility] [address] [facility] [id number] [place] [address] Jan, [facility] [address] [facility] [id number] [place] [address] Jan, [facility] [id number] [place] [address] Jan, [facility] [address] [facility] [id number] [place] [address] August, [facility] [id number] [place] [address] Mar, [facility] [id number] [place] [address] Feb, [facility] [id number] [place] [address] Jan, [facility] [address] [id number] [address] Jan, IMMUNIZATIONS No Known Immunizations SOCIAL HISTORY Never Assessed REASON FOR VISIT [facility] PLAN OF CARE VITAL SIGNS MEDICATIONS Unknown [...]
--- OUTSIDE RECORDS SUMMARY | 2018-09-17 23:18 | XMS REPORT ---
Author Author Migration, Doctor Organization [facility] Address Unknown Phone Unavailable Care Team Providers Care Web Systems Developer Name Role Phone Migration, Doctor Unavailable Unavailable PROBLEMS Type Condition ICD9-CM Code USA63-AO Code Onset Dates Condition Status SNOMED Code Problem CAD (coronary artery disease) I25.10 Active 09396046 Problem Osteoarthritis of knees, bilateral M17.0 Active 558655786 Problem Essential hypertension I10 Active 25704932 Problem Diabetes E11.9 Active 90675842 Problem Arthritis M19.90 Active 3491764 Problem Morbid obesity E66.01 Active 624533031 Problem Hyperlipemia E78.5 Active 49717394 ALLERGIES No Information ENCOUNTERS Encounter Location Date Diagnosis [facility] [id number] [place] [address] Jul, [facility] [id number] [place] [address] Apr, [facility] [facility] [address] [address] Mar, Pustular lesion L08.9 and Encounter for immunization Z23 [facility] [id number] [place] [address] Feb, [facility] [id number] [place] [address] Dec, [facility] [id number] [place] [address] Dec, [facility] [facility] [address] [address] Dec, Diabetes E11.9 ; Essential hypertension I10 ; Arthritis M19.90 ; Urinary frequency R35.0 ; Routine adult health maintenance Z00.00 and BMI 45.0- 49.9, adult Z68.42 [facility] [id number] [place] [address] Dec, [facility] [id number] [place] [address] Dec, [facility] [id number] [place] [address] Oct, [facility] [id number] [place] [address] Sep, Diabetes E11.9 [facility] [id number] [place] [address] Sep, Diabetes E11.9 ; Hyperlipemia E78.5 ; CAD (coronary artery disease) I25.10 ; Essential hypertension I10 and BMI 45.0-49.9, adult Z68.42 [facility] [id number] [place] [address] Sep, [facility] [id number] [place] [address] August, [facility] [id number] [place] [address] Jan, Dysuria R30.0 [facility] [id number] [place] [address] Jan, Dysuria R30.0 [facility] [id number] [place] [address] Jan, Osteoarthritis of knees, bilateral M17.0 [facility] [id number] [place] [address] Nov, Dysuria R30.0 [facility] [id number] [place] [address] Oct, Blood in urine R31.9 ; Dysuria R30.0 ; Pharyngeal dysphagia R13.13 ; Acute cystitis with hematuria N30.01 ; CAD (coronary artery disease) I25.10 and Diabetes E11.9 [place] [id number] [address] 13 Oct, 2016 [facility] [id number] [place] [address] Sep, Arthritis M19.90 ; Blood in urine R31.9 ; Diabetes E11.9 ; Acute cystitis with hematuria N30.01 and Pharyngoesophageal dysphagia R13.14 [facility] [id number] [place] [address] Sep, Osteoarthritis of knees, bilateral M17.0 [facility] [id number] [place] [address] Sep, Osteoarthritis of knees, bilateral M17.0 [facility] [id number] [place] [address] August, Arthritis M19.90 [facility] [id number] [place] [address] Jul, Arthritis M19.90 [facility] [id number] [place] [address] Jun, Arthritis M19.90 [facility] [id number] [place] [address] Jun, [facility] [id number] [place] [address] Jun, [facility] [id number] [place] [address] May, Diabetes E11.9 ; Dysuria R30.0 and Arthritis M19.90 [facility] [id number] [place] [address] Apr, [facility] [id number] [address] Apr, Arthritis M19.90 [facility] [id number] [place] [address] Mar, Arthritis M19.90 [facility] [id number] [address] Feb, [facility] [id number] [place] [address] Jan, [facility] [id number] [place] [address] Dec, Diabetes E11.9 and Arthritis M19.90 [facility] [id number] [place] [address] Dec, [facility] [id number] [place] [address] Nov, Arthritis M19.90 [facility] [id number] [place] [address] Nov, [facility] [id number] [place] [address] Oct, Arthritis M19.90 [facility] [id number] [place] [address] Sep, Osteoarthritis of knees, bilateral M17.0 [facility] [id number] [place] [address] Sep, Osteoarthritis of knees, bilateral M17.0 [facility] [id number] [place] [address] August, Arthritis M19.90 [facility] [address] [place] [address] August, [facility] [id number] [place] [address] Jul, Hyperlipemia E78.5 [facility] [address] [address] Jul, Encounter for well woman exam Z01.419 ; Morbid obesity E66.01 ; Encounter for screening for malignant neoplasm of cervix Z12.4 and Encounter for screening mammogram for breast cancer Z12.31 [facility] [place] [address] [place] [address] Jul, Arthritis M19.90 ; Diabetes E11.9 ; Blood in urine R31.9 and UTI (urinary tract infection) N39.0 [facility] [id number] [place] [address] Jul, [facility] [id number] [place] [address] Jun, Arthritis M19.90 [facility] [id number] [place] [address] May, Arthritis M19.90 [facility] [id number] [place] [address] May, [facility] [id number] [place] [address] Apr, [facility] [id number] [place] [address] Apr, Arthritis M19.90 ; Diabetes E11.9 and Morbid obesity E66.01 [facility] [id number] [place] [address] Apr, [facility] [id number] [place] [address] Apr, Dyspareunia N94.1 [facility] [id number] [place] [address] Apr, [facility] [id number] [place] [address] Apr, [facility] [address] [place] [address] 14 Apr, 2015 Osteoarthritis of knees, bilateral M17.0 [facility] [id number] [place] [address] Apr, Diabetes E11.9 and CAD (coronary artery disease) I25.10 [facility] [id number] [place] [address] Mar, [facility] [id number] [place] [address] Feb, [facility] [id number] [place] [address] Jan, [facility] [id number] [place] [address] Jan, [facility] [id number] [place] [address] Jan, [facility] [id number] [place] [address] Jan, Osteoarthritis of knees, bilateral M17.0 [facility] [id number] [place] [address] Dec, [facility] [id number] [place] [address] Dec, [facility] [id number] [place] [address] Dec, [facility] [id number] [place] [address] 08 Dec, 2014 Diabetes mellitus 250.00 and UTI (urinary tract infection) 599.0 [facility] [address] [place] [address] Dec, [facility] [id number] [place] [address] Nov, [facility] [id number] [place] [address] Oct, [facility] [id number] [place] [address] Oct, [facility] [place] [facility] [address] [id number] [place] [address] Oct, [facility] [place] [facility] [address] [id number] [place] [address] Oct, [facility] [place] [facility] [address] [id number] [place] [address] Oct, [facility] [place] [facility] [address] [id number] [place] [address] Sep, [facility] [place] [facility] [address] [id number] [place] [address] August, [facility] [place] [facility] [address] [id number] [place] [address] August, [facility] [place] [facility] [address] [id number] [place] [address] August, [facility] [place] [facility] [address] [id number] [place] [address] Jul, [facility] [place] [facility] [address] [id number] [place] [address] Jul, [facility] [place] [facility] [address] [id number] [place] [address] Jul, [facility] [place] [facility] [address] [id number] [place] [address] Jun, [facility] [place] [facility] [address] [id number] [place] [address] Jun, [facility] [place] [facility] [address] [id number] [place] [address] Jun, [facility] [place] [facility] [address] [id number] [place] [address] Jun, [facility] [place] [facility] [address] [id number] [place] [address] Jun, [facility] [place] [facility] [address] [id number] [address] Jun, [facility] [place] [facility] [address] [id number] [place] [address] Jun, [facility] [place] [facility] [address] [id number] [place] [address] Jun, [facility] [place] [facility] [address] [facility] [id number] [place] [address] May, 2014 [facility] [place] [facility] [address] [id number] [place] [address] May, 2014 [facility] [place] [facility] [address] [id number] [place] [address] May, 2014 [facility] [place] [facility] [address] [facility] [id number] [place] [address] May, 2014 [facility] [place] [facility] [address] [facility] [id number] [place] [address] May, 2014 [facility] [place] [facility] [address] [facility] [id number] [place] [address] May, 2014 [facility] [place] [facility] [address] [facility] [id number] [place] [address] May, 2014 [facility] [place] [facility] [address] [facility] [id number] [place] [address] May, 2014 [facility] [place] [facility] [address] [facility] [id number] [place] [address] May, 2014 [facility] [place] [facility] [address] [facility] [id number] [place] [address] May, 2014 [facility] [place] [facility] [address] [facility] [id number] [place] [address] May, 2014 [facility] [place] [facility] [address] [facility] [id number] [place] [address] May, 2014 [facility] [place] [facility] [address] [facility] [id number] [place] [address] Apr, [facility] [place] [facility] [address] [id number] [place] [address] Apr, [facility] [place] [facility] [address] [id number] [place] [address] Mar, [facility] [place] [facility] [address] [id number] [place] [address] Mar, [facility] [place] [facility] [address] [id number] [place] [address] Mar, [facility] [place] [facility] [address] [id number] [place] [address] Mar, [facility] [place] [facility] [address] [id number] [place] [address] Mar, [facility] [place] [facility] [address] [id number] [place] [address] Mar, [facility] [place] [facility] [address] [id number] [place] [address] Feb, [facility] [place] [facility] [address] [id number] [place] [address] Feb, [facility] [place] [facility] [address] [id number] [place] [address] Feb, [facility] [place] [facility] [address] [id number] [address] Feb, [facility] [place] [facility] [address] [id number] [address] Feb, [facility] [place] [facility] [address] [id number] [place] [address] Feb, [facility] [place] [facility] [address] [id number] [place] [address] Feb, [facility] [place] [facility] [address] [id number] [address] Feb, [facility] [place] [facility] [address] [id number] [place] [address] Feb, [facility] [place] [facility] [address] [id number] [place] [address] Jan, [facility] [place] [facility] [address] [id number] [place] [address] Jan, [facility] [place] [facility] [address] [id number] [place] [address] Jan, [facility] [place] [facility] [address] [id number] [place] [address] Jan, [facility] [place] [facility] [address] [id number] [place] [address] Jan, [facility] [place] [facility] [address] [id number] [place] [address] Jan, [facility] [place] [facility] [address] [id number] [place] [address] Jan, [facility] [place] [facility] [address] [id number] [place] [address] Jan, [facility] [place] [facility] [address] [id number] [place] [address] Jan, [facility] [place] [facility] [address] [id number] [place] [address] Jan, [facility] [place] [facility] [address] [id number] [place] [address] 19 Dec, 2013 [facility] [place] [facility] [address] [id number] [place] [address] 19 Dec, 2013 [facility] [place] [facility] [address] [id number] [place] [address] 10 Dec, 2013 [facility] [place] [facility] [address] [id number] [place] [address] Dec, [facility] [place] [facility] [address] [id number] [place] [address] Nov, [facility] [place] [facility] [address] [id number] [place] [address] Nov, [facility] [place] [facility] [address] [id number] [place] [address] Nov, [facility] [place] [facility] [address] [id number] [place] [address] Nov, [facility] [place] [facility] [address] [id number] [place] [address] Nov, [facility] [place] [facility] [address] [id number] [place] [address] Nov, [facility] [place] [facility] [address] [id number] [place] [address] Nov, [facility] [place] [facility] [address] [id number] [place] [address] Nov, [facility] [place] [facility] [address] [id number] [place] [address] Nov, [facility] [place] [facility] [address] [id number] [place] [address] Oct, [facility] [place] [facility] [address] [id number] [place] [address] Oct, [facility] [place] [facility] [address] [id number] [place] [address] Sep, [facility] [place] [facility] [address] [id number] [place] [address] Sep, [facility] [place] [facility] [address] [id number] [place] [address] Sep, [facility] [place] [facility] [address] [id number] [place] [address] Sep, [facility] [place] [facility] [address] [id number] [place] [address] Sep, [facility] [place] [facility] [address] [id number] [place] [address] Sep, [facility] [place] [facility] [address] [id number] [place] [address] Sep, [facility] [place] [facility] [address] [id number] [place] [address] Sep, [facility] [place] [facility] [address] [id number] [place] [address] Sep, [facility] [place] [facility] [address] [id number] [place] [address] Sep, [facility] [place] [facility] [address] [id number] [place] [address] Sep, [facility] [place] [facility] [address] [id number] [place] [address] Sep, [facility] [place] [facility] [address] [id number] [place] [address] Sep, [facility] [place] [facility] [address] [id number] [place] [address] Sep, [facility] [place] [facility] [address] [id number] [place] [address] August, [facility] [place] [facility] [address] [id number] [place] [address] August, [facility] [place] [facility] [address] [id number] [place] [address] August, [facility] [place] [facility] [address] [id number] [place] [address] August, [facility] [place] [facility] [address] [id number] [place] [address] Jul, [facility] [place] [facility] [address] [id number] [place] [address] Jul, [facility] [place] [facility] [address] [id number] [place] [address] Jul, [facility] [place] [facility] [address] [id number] [place] [address] Jul, [facility] [place] [facility] [address] [id number] [place] [address] Jun, [facility] [place] [facility] [address] [id number] [place] [address] Jun, [facility] [place] [facility] [address] [id number] [place] [address] May, [facility] [place] [facility] [address] [id number] [place] [address] May, [facility] [place] [facility] [address] [id number] [place] [address] May, [facility] [place] [facility] [address] [id number] [place] [address] May, [facility] [place] [facility] [address] [id number] [place] [address] May, [facility] [place] [facility] [address] [id number] [place] [address] May, [facility] [place] [facility] [address] [id number] [place] [address] May, [facility] [place] [facility] [address] [id number] [place] [address] May, [facility] [place] [facility] [address] [id number] [place] [address] May, [facility] [place] [facility] [address] [id number] [place] [address] Apr, [facility] [place] [facility] [address] [id number] [place] [address] Apr, [facility] [place] [facility] [address] [id number] [place] [address] Apr, [facility] [place] [facility] [address] [id number] [place] [address] Apr, [facility] [place] [facility] [address] [id number] [place] [address] Apr, [facility] [place] [facility] [address] [id number] [place] [address] Mar, [facility] [place] [facility] [address] [id number] [place] [address] Mar, [facility] [place] [facility] [address] [id number] [place] [address] Feb, [facility] [place] [facility] [address] [id number] [place] [address] Feb, [facility] [place] [facility] [address] [id number] [place] [address] Feb, [facility] [place] [facility] [address] [id number] [place] [address] Feb, [facility] [place] [facility] [address] [id number] [place] [address] Feb, [facility] [place] [facility] [address] [id number] [place] [address] Feb, [facility] [place] [facility] [address] [id number] [place] [address] Feb, [facility] [place] [facility] [address] [id number] [place] [address] Feb, [facility] [place] [facility] [address] [id number] [place] [address] Feb, [facility] [place] [facility] [address] [id number] [place] [address] Jan, [facility] [place] [facility] [address] [id number] [place] [address] Jan, [facility] [place] [facility] [address] [id number] [place] [address] Jan, [facility] [place] [facility] [address] [id number] [place] [address] Jan, [facility] [address] [id number] [place] [address] Jan, [facility] [address] [id number] [place] [address] Dec, [facility] [address] [id number] [place] [address] Dec, [facility] [address] [id number] [place] [address] Nov, [facility] [address] [id number] [place] [address] Nov, [facility] [address] [id number] [place] [address] Oct, [facility] [address] [id number] [place] [address] Oct, [facility] [address] [id number] [place] [address] Oct, [facility] [address] [id number] [place] [address] Sep, [facility] [address] [id number] [place] [address] Sep, [facility] [address] [id number] [place] [address] Sep, [facility] [address] [id number] [place] [address] August, [facility] [place] [facility] [address] [id number] [place] [address] August, [facility] [address] [id number] [place] [address] August, [facility] [address] [id number] [place] [address] August, [facility] [address] [id number] [place] [address] Jul, [facility] [place] [facility] [address] [id number] [place] [address] Jun, [facility] [place] [facility] [address] [id number] [place] [address] Jun, [facility] [place] [facility] [address] [id number] [place] [address] Jun, [facility] [place] [facility] [address] [id number] [place] [address] May, [facility] [place] [facility] [address] [id number] [place] [address] May, [facility] [place] [facility] [address] [id number] [place] [address] May, [facility] [place] [facility] [address] [id number] [place] [address] May, [facility] [place] [facility] [address] [id number] [place] [address] Apr, [facility] [place] [facility] [address] [id number] [place] [address] Apr, [facility] [place] [facility] [address] [id number] [place] [address] 15 Apr, 2012 [facility] [place] [facility] [address] [id number] [place] [address] 14 Apr, 2012 [facility] [place] [facility] [address] [id number] [place] [address] Apr, [facility] [place] [facility] [address] [id number] [place] [address] Mar, [facility] [place] [facility] [address] [id number] [place] [address] Mar, [facility] [place] [facility] [address] [id number] [place] [address] Mar, [facility] [place] [facility] [address] [id number] [place] [address] Mar, [facility] [place] [facility] [address] [id number] [place] [address] Mar, [facility] [place] [facility] [address] [id number] [place] [address] Mar, [facility] [place] [facility] [address] [id number] [place] [address] Mar, [facility] [place] [facility] [address] [id number] [place] [address] Feb, [facility] [place] [facility] [address] [id number] [place] [address] Feb, [facility] [place] [facility] [address] [id number] [place] [address] Feb, [facility] [place] [facility] [address] [id number] [place] [id number] Feb, [facility] [place] [facility] [address] [id number] [place] [address] Feb, [facility] [place] [facility] [address] [facility] [id number] [place] [address] Feb, [facility] [place] [facility] [address] [id number] [place] [address] Feb, [facility] [place] [facility] [address] [id number] [place] [address] Feb, [facility] [place] [facility] [address] [id number] [place] [address] Jan, [facility] [place] [facility] [address] [id number] [place] [address] Jan, [facility] [place] [facility] [address] [id number] [place] [address] Jan, [facility] [place] [facility] [address] [id number] [place] [address] 11 Jan, 2012 [facility] [place] [facility] [address] [id number] [place] [address] 27 Dec, 2011 [facility] [place] [facility] [address] [id number] [place] [address] 25 Dec, 2011 [facility] [place] [facility] [address] [id number] [place] [address] 18 Dec, 2011 [facility] [place] [facility] [address] [id number] [place] [address] 13 Dec, 2011 [facility] [place] [facility] [address] [id number] [place] [address] 11 Dec, 2011 [facility] [place] [facility] [address] [id number] [place] [address] Oct, [facility] [place] [facility] [address] [id number] [place] [address] Oct, [facility] [place] [facility] [address] [id number] [place] [address] Sep, [facility] [place] [facility] [address] [id number] [place] [address] Sep, [facility] [place] [facility] [address] [id number] [place] [address] August, [facility] [place] [facility] [address] [id number] [place] [address] August, [facility] [place] [facility] [address] [id number] [place] [address] Jul, [facility] [place] [facility] [address] [id number] [place] [address] Jun, [facility] [place] [facility] [address] [id number] [place] [address] Jun, [facility] [place] [facility] [address] [id number] [place] [address] 23 Jun, 2011 [facility] [address] [id number] [place] [address] 19 Jun, 2011 [facility] [place] [facility] [address] [id number] [place] [address] Jun, [facility] [place] [facility] [address] [id number] [place] [address] 24 May, 2011 [facility] [place] [facility] [address] [id number] [place] [address] 22 May, 2011 [facility] [place] [facility] [address] [id number] [place] [address] 20 May, 2011 [facility] [place] [facility] [address] [id number] [place] [address] 14 May, 2011 [facility] [address] [id number] [place] [address] 13 May, 2011 [facility] [place] [facility] [address] [id number] [place] [address] 03 May, 2011 [facility] [place] [facility] [address] [id number] [place] [address] 02 May, 2011 [facility] [address] [facility] [id number] [place] [address] 02 May, 2011 [facility] [address] [id number] [place] [address] Apr, [facility] [place] [facility] [address] [id number] [place] [address] Mar, [facility] [place] [facility] [address] [id number] [place] [address] Mar, [facility] [place] [facility] [address] [id number] [place] [address] Mar, [facility] [place] [facility] [address] [id number] [place] [address] Mar, [facility] [address] [facility] [id number] [place] [address] Mar, [facility] [address] [facility] [id number] [place] [address] Jan, [facility] [address] [facility] [id number] [place] [address] Jan, [facility] [id number] [address] Jan, [facility] [address] [facility] [id number] [place] [address] August, [facility] [id number] [address] Mar, [facility] [id number] [address] Feb, [facility] [id number] [address] Jan, [facility] [address] [id number] [address] Jan, IMMUNIZATIONS No Known Immunizations SOCIAL HISTORY Never Assessed REASON FOR VISIT [facility] PLAN OF CARE VITAL SIGNS MEDICATIONS Unknown [...]
--- OUTSIDE RECORDS SUMMARY | 2018-09-17 23:19 | XMS REPORT ---
Author Author Migration, Doctor Organization [facility] Address Unknown Phone Unavailable Care Team Providers Care Ic Design Manager Name Role Phone Migration, Doctor Unavailable Unavailable PROBLEMS Type Condition ICD9-CM Code OHA33-HX Code Onset Dates Condition Status SNOMED Code Problem CAD (coronary artery disease) I25.10 Active 80462352 Problem Osteoarthritis of knees, bilateral M17.0 Active 333221451 Problem Essential hypertension I10 Active 58901277 Problem Diabetes E11.9 Active 52049541 Problem Arthritis M19.90 Active 8620504 Problem Morbid obesity E66.01 Active 934193138 Problem Hyperlipemia E78.5 Active [id number] ALLERGIES No Information ENCOUNTERS Encounter Location Date Diagnosis [place] [id number] [place] [address] Jul, [place] [id number] [place] [address] Apr, [place] [address] [address] Mar, Pustular lesion L08.9 and Encounter for immunization Z23 [place] [id number] [place] [address] Feb, [place] [id number] [place] [address] Dec, [place] [id number] [place] [address] Dec, [place] [address] [address] Dec, Diabetes E11.9 ; Essential hypertension I10 ; Arthritis M19.90 ; Urinary frequency R35.0 ; Routine adult health maintenance Z00.00 and BMI 45.0- 49.9, adult Z68.42 [place] [id number] [place] [address] Dec, [facility] [id number] [place] [address] Dec, [facility] [id number] [place] [address] Oct, [place] [id number] [place] [address] Sep, Diabetes E11.9 [place] [id number] [place] [address] Sep, Diabetes E11.9 ; Hyperlipemia E78.5 ; CAD (coronary artery disease) I25.10 ; Essential hypertension I10 and BMI 45.0-49.9, adult Z68.42 [place] [id number] [place] [address] Sep, [place] [id number] [place] [address] August, [place] [id number] [place] [address] Jan, Dysuria R30.0 [place] [id number] [place] [address] Jan, Dysuria R30.0 [place] [id number] [place] [address] Jan, Osteoarthritis of knees, bilateral M17.0 [place] [id number] [place] [address] Nov, Dysuria R30.0 [place] [id number] [place] [address] Oct, Blood in urine R31.9 ; Dysuria R30.0 ; Pharyngeal dysphagia R13.13 ; Acute cystitis with hematuria N30.01 ; CAD (coronary artery disease) I25.10 and Diabetes E11.9 [place] [address] [address] 13 Oct, 2016 [facility] [id number] [place] [address] Sep, Arthritis M19.90 ; Blood in urine R31.9 ; Diabetes E11.9 ; Acute cystitis with hematuria N30.01 and Pharyngoesophageal dysphagia R13.14 [facility] [id number] [place] [address] Sep, Osteoarthritis of knees, bilateral M17.0 [facility] [id number] [place] [address] Sep, Osteoarthritis of knees, bilateral M17.0 [facility] [id number] [place] [address] August, Arthritis M19.90 [facility] [id number] [place] [address] Jul, Arthritis M19.90 [facility] [id number] [place] [address] Jun, Arthritis M19.90 [facility] [id number] [place] [address] Jun, [facility] [id number] [place] [address] Jun, [facility] [id number] [place] [address] May, Diabetes E11.9 ; Dysuria R30.0 and Arthritis M19.90 [facility] [id number] [place] [address] Apr, [facility] [address] [address] Apr, Arthritis M19.90 [facility] [id number] [place] [address] Mar, Arthritis M19.90 [facility] [address] [address] Feb, [facility] [id number] [place] [address] Jan, [facility] [id number] [place] [address] Dec, Diabetes E11.9 and Arthritis M19.90 [facility] [id number] [place] [address] Dec, [facility] [id number] [place] [address] Nov, Arthritis M19.90 [facility] [id number] [place] [address] Nov, [facility] [id number] [place] [address] Oct, Arthritis M19.90 [facility] [id number] [place] [address] Sep, Osteoarthritis of knees, bilateral M17.0 [facility] [id number] [place] [address] Sep, Osteoarthritis of knees, bilateral M17.0 [facility] [id number] [place] [address] August, Arthritis M19.90 [facility] [id number] [place] [address] August, [facility] [id number] [place] [address] Jul, Hyperlipemia E78.5 [facility] [address] [address] Jul, Encounter for well woman exam Z01.419 ; Morbid obesity E66.01 ; Encounter for screening for malignant neoplasm of cervix Z12.4 and Encounter for screening mammogram for breast cancer Z12.31 [place] [id number] [place] [address] Jul, Arthritis M19.90 ; Diabetes E11.9 ; Blood in urine R31.9 and UTI (urinary tract infection) N39.0 [place] [id number] [place] [address] Jul, [facility] [id number] [place] [address] Jun, Arthritis M19.90 [place] [id number] [place] [address] May, Arthritis M19.90 [place] [id number] [place] [address] May, [facility] [id number] [place] [address] Apr, [facility] [id number] [place] [address] Apr, Arthritis M19.90 ; Diabetes E11.9 and Morbid obesity E66.01 [place] [id number] [place] [address] Apr, [place] [id number] [place] [address] Apr, Dyspareunia N94.1 [place] [id number] [place] [address] Apr, [place] [id number] [place] [address] Apr, [place] [id number] [place] [address] 14 Apr, 2015 Osteoarthritis of knees, bilateral M17.0 [place] [id number] [place] [address] Apr, Diabetes E11.9 and CAD (coronary artery disease) I25.10 [facility] [id number] [place] [address] Mar, [facility] [id number] [place] [address] Feb, [facility] [id number] [place] [address] Jan, [facility] [id number] [place] [address] Jan, [facility] [id number] [place] [address] Jan, [facility] [id number] [place] [address] Jan, Osteoarthritis of knees, bilateral M17.0 [facility] [id number] [place] [address] Dec, [facility] [id number] [place] [address] Dec, [facility] [id number] [place] [address] Dec, [facility] [id number] [place] [address] 08 Dec, 2014 Diabetes mellitus 250.00 and UTI (urinary tract infection) 599.0 [facility] [id number] [place] [address] Dec, [facility] [id number] [place] [address] Nov, [facility] [id number] [place] [address] Oct, [facility] [id number] [place] [address] Oct, [facility] [place] [facility] [address] [id number] [place] [address] Oct, [facility] [place] [facility] [address] [id number] [place] [address] Oct, [facility] [place] [facility] [address] [id number] [place] [address] Oct, [facility] [place] [facility] [address] [id number] [place] [address] Sep, [facility] [place] [facility] [address] [id number] [place] [address] August, [facility] [place] [facility] [address] [id number] [place] [address] August, [facility] [place] [facility] [address] [id number] [place] [address] August, [facility] [place] [facility] [address] [id number] [place] [address] Jul, [facility] [place] [facility] [address] [id number] [place] [address] Jul, [facility] [place] [facility] [address] [id number] [place] [address] Jul, [facility] [place] [facility] [address] [id number] [place] [address] Jun, [facility] [place] [facility] [address] [id number] [place] [address] Jun, [facility] [place] [facility] [address] [id number] [place] [address] Jun, [facility] [place] [facility] [address] [id number] [place] [address] Jun, [facility] [place] [facility] [address] [id number] [place] [address] Jun, [facility] [place] [facility] [address] [id number] [address] Jun, [facility] [place] [facility] [address] [id number] [place] [address] Jun, [facility] [place] [facility] [address] [id number] [place] [address] Jun, [facility] [place] [facility] [address] [facility] [id number] [place] [address] May, 2014 [facility] [place] [facility] [address] [id number] [place] [address] May, 2014 [facility] [place] [facility] [address] [id number] [place] [address] May, 2014 [facility] [place] [facility] [address] [facility] [id number] [place] [address] May, 2014 [facility] [place] [facility] [address] [facility] [id number] [place] [address] May, 2014 [facility] [place] [facility] [address] [facility] [id number] [place] [address] May, 2014 [facility] [place] [facility] [address] [facility] [id number] [place] [address] May, 2014 [facility] [place] [facility] [address] [facility] [id number] [place] [address] May, 2014 [facility] [place] [facility] [address] [facility] [id number] [place] [address] May, 2014 [facility] [place] [facility] [address] [facility] [id number] [place] [address] May, 2014 [facility] [place] [facility] [address] [facility] [id number] [place] [address] May, 2014 [facility] [place] [facility] [address] [facility] [id number] [place] [address] May, 2014 [facility] [place] [facility] [address] [facility] [id number] [place] [address] Apr, [facility] [place] [facility] [address] [id number] [place] [address] Apr, [facility] [place] [facility] [address] [id number] [place] [address] Mar, [facility] [place] [facility] [address] [id number] [place] [address] Mar, [facility] [place] [facility] [address] [id number] [place] [address] Mar, [facility] [place] [facility] [address] [id number] [place] [address] Mar, [facility] [place] [facility] [address] [id number] [place] [address] Mar, [facility] [place] [facility] [address] [id number] [place] [address] Mar, [facility] [place] [facility] [address] [id number] [place] [address] Feb, [facility] [place] [facility] [address] [id number] [place] [address] Feb, [facility] [place] [facility] [address] [id number] [place] [address] Feb, [facility] [place] [facility] [address] [id number] [address] Feb, [facility] [place] [facility] [address] [id number], [place] [address] Feb, [facility] [place] [facility] [address] [id number] [place] [address] Feb, [facility] [place] [facility] [address] [id number] [place] [address] Feb, [facility] [place] [facility] [address] [id number] [address] Feb, [facility] [place] [facility] [address] [id number] [place] [address] Feb, [facility] [place] [facility] [address] [id number] [place] [address] Jan, [facility] [place] [facility] [address] [id number] [place] [address] Jan, [facility] [place] [facility] [address] [id number] [place] [address] Jan, [facility] [place] [facility] [address] [id number] [place] [address] Jan, [facility] [place] [facility] [address] [id number] [place] [address] Jan, [facility] [place] [facility] [address] [id number] [place] [address] Jan, [facility] [place] [facility] [address] [id number] [place] [address] Jan, [facility] [place] [facility] [address] [id number] [place] [address] Jan, [facility] [place] [facility] [address] [id number] [place] [address] Jan, [facility] [place] [facility] [address] [id number] [place] [address] Jan, [facility] [place] [facility] [address] [id number] [place] [address] 19 Dec, 2013 [facility] [place] [facility] [address] [id number] [place] [address] 19 Dec, 2013 [facility] [place] [facility] [address] [id number] [place] [address] 10 Dec, 2013 [facility] [place] [facility] [address] [id number] [place] [address] Dec, [facility] [place] [facility] [address] [id number] [place] [address] Nov, [facility] [place] [facility] [address] [id number] [place] [address] Nov, [facility] [place] [facility] [address] [id number] [place] [address] Nov, [facility] [place] [facility] [address] [id number] [place] [address] Nov, [facility] [place] [facility] [address] [id number] [place] [address] Nov, [facility] [place] [facility] [address] [id number] [place] [address] Nov, [facility] [place] [facility] [address] [id number] [place] [address] Nov, [facility] [place] [facility] [address] [id number] [place] [address] Nov, [facility] [place] [facility] [address] [id number] [place] [address] Nov, [facility] [place] [facility] [address] [id number] [place] [address] Oct, [facility] [place] [facility] [address] [id number] [place] [address] Oct, [facility] [place] [facility] [address] [id number] [place] [address] Sep, [facility] [place] [facility] [address] [id number] [place] [address] Sep, [facility] [place] [facility] [address] [id number] [place] [address] Sep, [facility] [place] [facility] [address] [id number] [place] [address] Sep, [facility] [place] [facility] [address] [id number] [place] [address] Sep, [facility] [place] [facility] [address] [id number] [place] [address] Sep, [facility] [place] [facility] [address] [id number] [place] [address] Sep, [facility] [place] [facility] [address] [id number] [place] [address] Sep, [facility] [place] [facility] [address] [id number] [place] [address] Sep, [facility] [place] [facility] [address] [id number] [place] [address] Sep, [facility] [place] [facility] [address] [id number] [place] [address] Sep, [facility] [place] [facility] [address] [id number] [place] [address] Sep, [facility] [place] [facility] [address] [id number] [place] [address] Sep, [facility] [place] [facility] [address] [id number] [place] [address] Sep, [facility] [place] [facility] [address] [id number] [place] [address] August, [facility] [place] [facility] [address] [id number] [place] [address] August, [facility] [place] [facility] [address] [id number] [place] [address] August, [facility] [place] [facility] [address] [id number] [place] [address] August, [facility] [place] [facility] [address] [id number] [place] [address] Jul, [facility] [place] [facility] [address] [id number] [place] [address] Jul, [facility] [place] [facility] [address] [id number] [place] [address] Jul, [facility] [place] [facility] [address] [id number] [place] [address] Jul, [facility] [place] [facility] [address] [id number] [place] [address] Jun, [facility] [place] [facility] [address] [id number] [place] [address] Jun, [facility] [place] [facility] [address] [id number] [place] [address] May, [facility] [place] [facility] [address] [id number] [place] [address] May, [facility] [place] [facility] [address] [id number] [place] [address] May, [facility] [place] [facility] [address] [id number] [place] [address] May, [facility] [place] [facility] [address] [id number] [place] [address] May, [facility] [place] [facility] [address] [id number] [place] [address] May, [facility] [place] [facility] [address] [id number] [place] [address] May, [facility] [place] [facility] [address] [id number] [place] [address] May, [facility] [place] [facility] [address] [id number] [place] [address] May, [facility] [place] [facility] [address] [id number] [place] [address] Apr, [facility] [place] [facility] [address] [id number] [place] [address] Apr, [facility] [place] [facility] [address] [id number] [place] [address] Apr, [facility] [place] [facility] [address] [id number], [place] [address] Apr, [facility] [place] [facility] [address] [id number] [place] [address] Apr, [facility] [place] [facility] [address] [id number], [place] [address] Mar, [facility] [place] [facility] [address] [id number] [place] [address] Mar, [facility] [place] [facility] [address] [id number], [place] [address] Feb, [facility] [place] [facility] [address] [id number] [place] [address] Feb, [facility] [place] [facility] [address] [id number] [place] [address] Feb, [facility] [place] [facility] [address] [id number] [place] [address] Feb, [facility] [place] [facility] [address] [id number], [place] [address] Feb, [facility] [place] [facility] [address] [id number], [place] [address] Feb, [facility] [place] [facility] [address] [id number] [place] [address] Feb, [facility] [place] [facility] [address] [id number], [place] [address] Feb, [facility] [place] [facility] [address] [id number], [place] [address] Feb, [facility] [place] [facility] [address] [id number], [place] [address] Jan, [facility] [place] [facility] [address] [id number], [place] [address] Jan, [facility] [place] [facility] [address] [id number], [place] [address] Jan, [facility] [place] [facility] [address] [id number] [place] [address] Jan, [facility] [address] [id number] [place] [address] Jan, [facility] [address] [id number] [place] [address] Dec, [facility] [address] [id number] [place] [address] Dec, [facility] [address] [id number] [place] [address] Nov, [facility] [address] [id number] [place] [address] Nov, [facility] [address] [id number] [place] [address] Oct, [facility] [address] [id number] [place] [address] Oct, [facility] [address] [id number] [place] [address] Oct, [facility] [address] [id number] [place] [address] Sep, [facility] [address] [id number] [place] [address] Sep, [facility] [address] [id number] [place] [address] Sep, [facility] [address] [id number] [place] [address] August, [facility] [place] [facility] [address] [id number] [place] [address] August, [facility] [address] [id number] [place] [address] August, [facility] [address] [id number] [place] [address] August, [facility] [address] [id number] [place] [address] Jul, [facility] [place] [facility] [address] [id number] [place] [address] Jun, [facility] [place] [facility] [address] [id number] [place] [address] Jun, [facility] [place] [facility] [address] [id number] [place] [address] Jun, [facility] [place] [facility] [address] [id number] [place] [address] May, [facility] [place] [facility] [address] [id number] [place] [address] May, [facility] [place] [facility] [address] [id number] [place] [address] May, [facility] [place] [facility] [address] [id number] [place] [address] May, [facility] [place] [facility] [address] [id number] [place] [address] Apr, [facility] [place] [facility] [address] [id number] [place] [address] Apr, [facility] [place] [facility] [address] [id number] [place] [address] 15 Apr, 2012 [facility] [place] [facility] [address] [id number] [place] [address] 14 Apr, 2012 [facility] [place] [facility] [address] [id number] [place] [address] Apr, [facility] [place] [facility] [address] [id number] [place] [address] Mar, [facility] [place] [facility] [address] [id number] [place] [address] Mar, [facility] [place] [facility] [address] [id number] [place] [address] Mar, [facility] [place] [facility] [address] [id number] [place] [address] Mar, [facility] [place] [facility] [address] [id number] [place] [address] Mar, [facility] [place] [facility] [address] [id number] [place] [address] Mar, [facility] [place] [facility] [address] [id number] [place] [address] Mar, [facility] [place] [facility] [address] [id number] [place] [address] Feb, [facility] [place] [facility] [address] [id number] [place] [address] Feb, [facility] [place] [facility] [address] [id number] [place] [address] Feb, [facility] [place] [facility] [address] [id number] [place] [address] Feb, [facility] [place] [facility] [address] [id number] [place] [address] Feb, [facility] [place] [facility] [address] [facility] [id number] [place] [address] Feb, [facility] [place] [facility] [address] [id number] [place] [address] Feb, [facility] [place] [facility] [address] [id number] [place] [address] Feb, [facility] [place] [facility] [address] [id number] [place] [address] Jan, [facility] [place] [facility] [address] [id number] [place] [address] Jan, [facility] [place] [facility] [address] [id number] [place] [address] Jan, [facility] [place] [facility] [address] [id number] [place] [address] 11 Jan, 2012 [facility] [place] [facility] [address] [id number] [place] [address] 27 Dec, 2011 [facility] [place] [facility] [address] [id number] [place] [address] 25 Dec, 2011 [facility] [place] [facility] [address] [id number] [place] [address] 18 Dec, 2011 [facility] [place] [facility] [address] [id number] [place] [address] 13 Dec, 2011 [facility] [place] [facility] [address] [id number] [place] [address] 11 Dec, 2011 [facility] [place] [facility] [address] [id number] [place] [address] Oct, [facility] [place] [facility] [address] [id number] [place] [address] Oct, [facility] [place] [facility] [address] [id number] [place] [address] Sep, [facility] [place] [facility] [address] [id number] [place] [address] Sep, [facility] [place] [facility] [address] [id number] [place] [address] August, [facility] [place] [facility] [address] [id number] [place] [address] August, [facility] [place] [facility] [address] [id number] [place] [address] Jul, [facility] [place] [facility] [address] [id number] [place] [address] Jun, [facility] [place] [facility] [address] [id number] [place] [address] Jun, [facility] [place] [facility] [address] [id number] [place] [address] 23 Jun, 2011 [facility] [address] [id number] [place] [address] 19 Jun, 2011 [facility] [place] [facility] [address] [id number] [place] [address] Jun, [facility] [place] [facility] [address] [id number] [place] [address] 24 May, 2011 [facility] [place] [facility] [address] [id number] [place] [address] 22 May, 2011 [facility] [place] [facility] [address] [id number] [place] [address] 20 May, 2011 [facility] [place] [facility] [address] [id number] [place] [address] 14 May, 2011 [facility] [address] [id number] [place] [address] 13 May, 2011 [facility] [place] [facility] [address] [id number] [place] [address] 03 May, 2011 [facility] [place] [facility] [address] [id number] [place] [address] 02 May, 2011 [facility] [address] [facility] [id number] [place] [address] 02 May, 2011 [facility] [address] [id number] [place] [address] Apr, [facility] [place] [facility] [address] [id number] [place] [address] Mar, [facility] [place] [facility] [address] [id number] [place] [address] Mar, [facility] [place] [facility] [address] [id number] [place] [address] Mar, [facility] [place] [facility] [address] [id number] [place] [address] Mar, [facility] [address] [facility] [id number], [place] [address] Mar, [facility] [address] [facility] [id number], [place] [address] Jan, [facility] [address] [facility] [id number], [place] [address] Jan, [facility] [id number] [address] Jan, [facility] [address] [facility] [id number], [place] [address] August, [facility] [id number], [place] [address] Mar, [facility] [id number], [place] [address] Feb, [facility] [id number], [place] [address] Jan, [facility] [address] [id number], [place] [address] Jan, IMMUNIZATIONS No Known Immunizations SOCIAL HISTORY Never Assessed REASON FOR VISIT [facility] VITAL SIGNS MEDICATIONS Unknown [...]
--- OUTSIDE RECORDS SUMMARY | 2018-09-17 23:19 | XMS REPORT ---
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 Name Role Phone Migration, Doctor Unavailable Unavailable PROBLEMS Type Condition ICD9-CM Code BCL92-HV Code Onset Dates Condition Status SNOMED Code Problem CAD (coronary artery disease) I25.10 Active 12607117 Problem Osteoarthritis of knees, bilateral M17.0 Active 167971382 Problem Essential hypertension I10 Active 79365128 Problem Diabetes E11.9 Active 35460501 Problem Arthritis M19.90 Active 0597565 Problem Morbid obesity E66.01 Active 938571235 Problem Hyperlipemia E78.5 Active [id number] ALLERGIES No Information ENCOUNTERS Encounter Location Date Diagnosis [place] [id number] [place] [address] Apr, [place] [id number] [place] [address] Mar, Pustular lesion L08.9 and Encounter for immunization Z23 [place] [id number] [place] [address] Feb, [place] [id number] [place] [address] Dec, [place] [id number] [place] [address] Dec, [place] [id number] [place] [address] Dec, Diabetes E11.9 ; Essential hypertension I10 ; Arthritis M19.90 ; Urinary frequency R35.0 ; Routine adult health maintenance Z00.00 and BMI 45.0- 49.9, adult Z68.42 [place] [id number] [place] [address] Dec, [place] [id number] [place] [address] Dec, [place] [address] [address] Oct, [place] [id number] [place] [address] Sep, Diabetes E11.9 [place] [address] [address] Sep, Diabetes E11.9 ; Hyperlipemia E78.5 ; CAD (coronary artery disease) I25.10 ; Essential hypertension I10 and BMI 45.0-49.9, adult Z68.42 [place] [address] [address] Sep, [place] [id number] [place] [address] August, [place] [id number] [place] [address] Jan, Dysuria R30.0 [place] [address] [address] Jan, Dysuria R30.0 [place] [id number] [place] [address] Jan, Osteoarthritis of knees, bilateral M17.0 [place] [id number] [place] [address] Nov, Dysuria R30.0 [place] [id number] [place] [address] Oct, Blood in urine R31.9 ; Dysuria R30.0 ; Pharyngeal dysphagia R13.13 ; Acute cystitis with hematuria N30.01 ; CAD (coronary artery disease) I25.10 and Diabetes E11.9 [place] [id number] [place] [address] Oct, [place] [id number] [place] [address] Sep, Arthritis M19.90 ; Blood in urine R31.9 ; Diabetes E11.9 ; Acute cystitis with hematuria N30.01 and Pharyngoesophageal dysphagia R13.14 [facility] [id number] [place] [address] Sep, Osteoarthritis of knees, bilateral M17.0 [facility] [id number] [place] [address] Sep, Osteoarthritis of knees, bilateral M17.0 [facility] [id number] [place] [address] August, Arthritis M19.90 [facility] [id number] [place] [address] Jul, Arthritis M19.90 [facility] [id number] [place] [address] Jun, Arthritis M19.90 [facility] [id number] [place] [address] Jun, [facility] [id number] [place] [address] Jun, [facility] [id number] [place] [address] May, Diabetes E11.9 ; Dysuria R30.0 and Arthritis M19.90 [facility] [id number] [place] [address] Apr, [facility] [id number] [place] [address] Apr, Arthritis M19.90 [facility] [id number] [place] [address] Mar, Arthritis M19.90 [facility] [id number] [address] Feb, [facility] [id number] [place] [address] Jan, [facility] [id number] [place] [address] 29 Dec, 2015 Diabetes E11.9 and Arthritis M19.90 [facility] [id number] [place] [address] Dec, [facility] [id number] [place] [address] Nov, Arthritis M19.90 [facility] [id number] [place] [address] Nov, [facility] [id number] [place] [address] Oct, Arthritis M19.90 [facility] [id number] [place] [address] Sep, Osteoarthritis of knees, bilateral M17.0 [facility] [id number] [place] [address] Sep, Osteoarthritis of knees, bilateral M17.0 [facility] [id number] [place] [address] August, Arthritis M19.90 [facility] [id number] [place] [address] August, [facility] [id number] [place] [address] Jul, Hyperlipemia E78.5 [facility] [id number] [place] [address] Jul, Encounter for well woman exam Z01.419 ; Morbid obesity E66.01 ; Encounter for screening for malignant neoplasm of cervix Z12.4 and Encounter for screening mammogram for breast cancer Z12.31 [facility] [address] [address] Jul, Arthritis M19.90 ; Diabetes E11.9 ; Blood in urine R31.9 and UTI (urinary tract infection) N39.0 [facility] [id number] [address] Jul, [facility] [address] [address] Jun, Arthritis M19.90 [facility] [address] [address] May, Arthritis M19.90 [facility] [address] [address] May, [facility] [address] [address] Apr, [facility] [id number] [place] [address] Apr, Arthritis M19.90 ; Diabetes E11.9 and Morbid obesity E66.01 [facility] [address] [address] Apr, [facility] [id number] [address] Apr, Dyspareunia N94.1 [facility] [id number] [address] Apr, [facility] [id number] [address] Apr, [facility] [id number] [address] Apr, Osteoarthritis of knees, bilateral M17.0 [facility] [id number] [address] Apr, Diabetes E11.9 and CAD (coronary artery disease) I25.10 [facility] [id number] [address] Mar, [facility] [id number] [address] Feb, [facility] [id number] [address] Jan, [facility] [id number] [place] [address] Jan, [facility] [id number] [place] [address] Jan, [facility] [id number] [place] [address], [place] [address] Jan, Osteoarthritis of knees, bilateral M17.0 [facility] [id number] [place] [address] Dec, [facility] [id number] [address] Dec, [facility] [id number] [address] Dec, [facility] [id number] [address] Dec, Diabetes mellitus 250.00 and UTI (urinary tract infection) 599.0 [facility] [id number] [address] Dec, [facility] [id number] [address] Nov, [facility] [id number], [place] [address] Oct, [facility] [id number] [address] Oct, [facility] [id number] [address] Oct, [facility] [place] [facility] [address] [id number] [place] [address] Oct, [facility] [place] [facility] [address] [id number] [place] [address] Oct, [facility] [place] [facility] [address] [id number] [place] [address] Sep, [facility] [place] [facility] [address] [id number] [place] [address] August, [facility] [place] [facility] [address] [id number] [place] [address] August, [facility] [place] [facility] [address] [id number] [place] [address] August, [facility] [place] [facility] [address] [id number] [place] [address] Jul, [facility] [place] [facility] [address] [id number] [place] [address] Jul, [facility] [place] [facility] [address] [id number] [place] [address] Jul, [facility] [place] [facility] [address] [id number] [place] [address] Jun, [facility] [place] [facility] [address] [id number] [place] [address] 24 Jun, 2014 [facility] [place] [facility] [address] [id number] [place] [address] 24 Jun, 2014 [facility] [place] [facility] [address] [id number] [place] [address] 24 Jun, 2014 [facility] [place] [facility] [address] [id number] [place] [address] 24 Jun, 2014 [facility] [place] [facility] [address] [id number] [place] [address] 16 Jun, 2014 [facility] [place] [facility] [address] [id number] [address] Jun, [facility] [place] [facility] [address] [id number] [place] [address] Jun, [facility] [place] [facility] [address] [id number] [place] [address] May, 2014 [facility] [place] [facility] [address] [facility] [id number] [place] [address] May, 2014 [facility] [place] [facility] [address] [facility] [id number] [place] [address] May, 2014 [facility] [place] [facility] [address] [id number] [place] [address] May, 2014 [facility] [place] [facility] [address] [facility] [id number] [place] [address] May, 2014 [facility] [place] [facility] [id number] [place] [address] May, 2014 [facility] [place] [facility] [address] [facility] [id number] [place] [address] May, 2014 [facility] [place] [facility] [id number] [place] [address] May, 2014 [facility] [place] [facility] [id number] [place] [address] May, 2014 [facility] [place] [facility] [address] [facility] [id number] [place] [address] May, 2014 [facility] [place] [facility] [address] [facility] [id number], [place] [address] May, [facility] [place] [facility] [address] [facility] [id number] [place] [address] May, 2014 [facility] [place] [facility] [address] [facility] [id number], [place] [address] Apr, [facility] [place] [facility] [address] [facility] [id number] [address] Apr, [facility] [place] [facility] [address] [id number] [place] [address] Mar, [facility] [place] [facility] [address] [id number] [place] [address] Mar, [facility] [place] [facility] [address] [id number] [place] [address] Mar, [facility] [place] [facility] [address] [id number] [place] [address] Mar, [facility] [place] [facility] [address] [id number] [place] [address] Mar, [facility] [place] [facility] [address] [id number] [place] [address] Mar, [facility] [place] [facility] [address] [id number] [place] [address] Feb, [facility] [place] [facility] [address] [id number] [place] [address] Feb, [facility] [place] [facility] [address] [id number] [place] [address] Feb, [facility] [place] [facility] [address] [id number] [place] [address] Feb, [facility] [place] [facility] [address] [id number], [place] [address] Feb, [facility] [place] [facility] [address] [id number], [place] [address] Feb, [facility] [place] [facility] [address] [id number] [place] [address] Feb, [facility] [place] [facility] [address] [id number], [place] [address] Feb, [facility] [place] [facility] [address] [id number], [place] [address] Feb, [facility] [place] [facility] [address] [id number] [place] [address] Jan, [facility] [place] [facility] [address] [id number] [place] [address] Jan, [facility] [place] [facility] [address] [id number] [place] [address] Jan, [facility] [place] [facility] [address] [id number] [place] [address] Jan, [facility] [place] [facility] [address] [id number] [place] [address] Jan, [facility] [place] [facility] [address] [id number] [place] [address] Jan, [facility] [place] [facility] [address] [id number] [place] [address] Jan, [facility] [place] [facility] [address] [id number] [place] [address] Jan, [facility] [place] [facility] [address] [id number] [place] [address] Jan, [facility] [place] [facility] [address] [id number] [place] [address] Jan, [facility] [place] [facility] [address] [id number] [place] [address] Dec, [facility] [place] [facility] [address] [id number] [place] [address] 19 Dec, 2013 [facility] [place] [facility] [address] [id number] [place] [address] 10 Dec, 2013 [facility] [place] [facility] [address] [id number] [place] [address] Dec, [facility] [place] [facility] [address] [id number] [place] [address] Nov, [facility] [place] [facility] [address] [id number] [place] [address] Nov, [facility] [place] [facility] [address] [id number] [place] [address] Nov, [facility] [place] [facility] [address] [id number] [place] [address] Nov, [facility] [place] [facility] [address] [id number] [place] [address] Nov, [facility] [place] [facility] [address] [id number] [place] [address] Nov, [facility] [place] [facility] [address] [id number] [place] [address] Nov, [facility] [place] [facility] [address] [id number] [place] [address] Nov, [facility] [place] [facility] [address] [id number] [place] [address] Nov, [facility] [place] [facility] [address] [id number] [place] [address] Oct, [facility] [place] [facility] [address] [id number] [place] [address] Oct, [facility] [place] [facility] [address] [id number] [place] [address] Sep, [facility] [place] [facility] [address] [id number] [place] [address] Sep, [facility] [place] [facility] [address] [id number] [place] [address] Sep, [facility] [place] [facility] [address] [id number] [place] [address] Sep, [facility] [place] [facility] [address] [id number] [place] [address] Sep, [facility] [place] [facility] [address] [id number] [place] [address] Sep, [facility] [place] [facility] [address] [id number] [place] [address] Sep, [facility] [place] [facility] [address] [id number] [place] [address] Sep, [facility] [place] [facility] [address] [id number] [place] [address] Sep, [facility] [place] [facility] [address] [id number] [place] [address] Sep, [facility] [place] [facility] [address] [id number] [place] [address] Sep, [facility] [place] [facility] [address] [id number] [place] [address] Sep, [facility] [place] [facility] [address] [id number] [place] [address] Sep, [facility] [place] [facility] [address] [id number] [place] [address] Sep, [facility] [place] [facility] [address] [id number] [place] [address] August, [facility] [place] [facility] [address] [id number] [place] [address] August, [facility] [place] [facility] [address] [id number] [place] [address] August, [facility] [place] [facility] [address] [id number] [place] [address] August, [facility] [place] [facility] [address] [id number] [place] [address] Jul, [facility] [place] [facility] [address] [id number] [place] [address] Jul, [facility] [place] [facility] [address] [id number] [place] [address] Jul, [facility] [place] [facility] [address] [id number] [place] [address] Jul, [facility] [place] [facility] [address] [id number] [place] [address] Jun, [facility] [place] [facility] [address] [id number] [place] [address] Jun, [facility] [place] [facility] [address] [id number] [place] [address] May, [facility] [place] [facility] [address] [id number] [place] [address] May, [facility] [place] [facility] [address] [id number] [place] [address] May, [facility] [place] [facility] [address] [id number] [place] [address] May, [facility] [place] [facility] [address] [id number] [place] [address] May, [facility] [place] [facility] [address] [id number] [place] [address] May, [facility] [place] [facility] [address] [id number] [place] [address] May, [facility] [place] [facility] [address] [id number] [place] [address] May, [facility] [place] [facility] [address] [id number] [place] [address] May, [facility] [place] [facility] [address] [id number] [place] [address] Apr, [facility] [place] [facility] [address] [id number] [place] [address] Apr, [facility] [place] [facility] [address] [id number] [place] [address] Apr, [facility] [place] [facility] [address] [id number] [place] [address] Apr, [facility] [place] [facility] [address] [id number], [place] [address] Apr, [facility] [place] [facility] [address] [id number] [place] [address] Mar, [facility] [place] [facility] [address] [id number], [place] [address] Mar, [facility] [place] [facility] [address] [id number] [place] [address] Feb, [facility] [place] [facility] [address] [id number] [place] [address] Feb, [facility] [place] [facility] [address] [id number] [place] [address] Feb, [facility] [place] [facility] [address] [id number] [place] [address] Feb, [facility] [place] [facility] [address] [id number], [place] [address] Feb, [facility] [place] [facility] [address] [id number], [place] [address] Feb, [facility] [place] [facility] [address] [id number], [place] [address] Feb, [facility] [place] [facility] [address] [id number], [place] [address] Feb, [facility] [place] [facility] [address] [id number], [place] [address] Feb, [facility] [place] [facility] [address] [id number], [place] [address] Jan, [facility] [place] [facility] [address] [id number], [place] [address] Jan, [facility] [place] [facility] [address] [id number], [place] [address] Jan, [facility] [place] [facility] [address] [id number], [place] [address] Jan, [facility] [place] [facility] [address] [id number] [place] [address] Jan, [facility] [address] [id number] [place] [address] Dec, [facility] [address] [id number] [place] [address] Dec, [facility] [address] [id number] [place] [address] Nov, [facility] [address] [id number] [place] [address] Nov, [facility] [address] [id number] [place] [address] Oct, [facility] [address] [id number] [place] [address] Oct, [facility] [address] [id number] [place] [address] Oct, [facility] [address] [id number] [place] [address] Sep, [facility] [address] [id number] [place] [address] Sep, [facility] [address] [id number] [place] [address] Sep, [facility] [address] [id number] [place] [address] August, [facility] [address] [id number] [place] [address] August, [facility] [address] [id number] [place] [address] August, [facility] [address] [id number] [place] [address] August, [facility] [address] [id number] [place] [address] Jul, [facility] [address] [id number] [place] [address] Jun, [facility] [place] [facility] [address] [id number] [place] [address] Jun, [facility] [place] [facility] [address] [id number] [place] [address] Jun, [facility] [place] [facility] [address] [id number] [place] [address] May, [facility] [place] [facility] [address] [id number] [place] [address] May, [facility] [place] [facility] [address] [id number] [place] [address] May, [facility] [place] [facility] [address] [id number] [place] [address] May, [facility] [place] [facility] [address] [id number] [place] [address] Apr, [facility] [place] [facility] [address] [id number] [place] [address] Apr, [facility] [place] [facility] [address] [id number] [place] [address] Apr, [facility] [place] [facility] [address] [id number] [place] [address] Apr, [facility] [place] [facility] [address] [id number] [place] [address] Apr, [facility] [place] [facility] [address] [id number] [place] [address] Mar, [facility] [place] [facility] [address] [id number] [place] [address] Mar, [facility] [place] [facility] [address] [id number] [place] [address] Mar, [facility] [place] [facility] [address] [id number] [place] [address] Mar, [facility] [place] [facility] [address] [id number] [place] [address] Mar, [facility] [place] [facility] [address] [id number] [place] [address] Mar, [facility] [place] [facility] [address] [id number] [place] [address] Mar, [facility] [place] [facility] [address] [id number] [place] [address] Feb, [facility] [place] [facility] [address] [id number] [place] [address] Feb, [facility] [place] [facility] [address] [id number] [place] [address] Feb, [facility] [place] [facility] [address] [id number] [place] [address] Feb, [facility] [place] [facility] [address] [id number] [place] [address] Feb, [facility] [place] [facility] [address] [id number] [place] [address] Feb, [facility] [place] [facility] [address] [facility] [id number] [place] [address] Feb, [facility] [place] [facility] [address] [id number] [place] [address] Feb, [facility] [place] [facility] [address] [id number], [place] [address] Jan, [facility] [place] [facility] [address] [id number] [place] [address] Jan, [facility] [place] [facility] [address] [facility] [id number] [place] [address] Jan, [facility] [place] [facility] [address] [id number] [place] [address] Jan, [facility] [place] [facility] [address] [id number] [place] [address] 27 Dec, 2011 [facility] [place] [facility] [address] [id number] [place] [address] 25 Dec, 2011 [facility] [place] [facility] [address] [id number] [place] [address] 18 Dec, 2011 [facility] [place] [facility] [address] [id number] [place] [address] 13 Dec, 2011 [facility] [address] [id number] [place] [address] 11 Dec, 2011 [facility] [place] [facility] [address] [id number] [place] [address] Oct, [facility] [address] [id number] [place] [address] Oct, [facility] [address] [id number] [place] [address] Sep, [facility] [place] [facility] [address] [id number] [place] [address] Sep, [facility] [place] [facility] [address] [id number] [place] [address] August, [facility] [place] [facility] [address] [id number] [place] [address] August, [facility] [place] [facility] [address] [id number] [place] [address] Jul, [facility] [place] [facility] [address] [id number] [place] [address] Jun, [facility] [place] [facility] [address] [id number] [place] [address] Jun, [facility] [place] [facility] [address] [id number] [place] [address] Jun, [facility] [place] [facility] [address] [id number] [place] [address] Jun, [facility] [address] [id number] [place] [address] Jun, [facility] [place] [facility] [address] [id number] [place] [address] 24 May, 2011 [facility] [place] [facility] [address] [id number] [place] [address] May, [facility] [place] [facility] [address] [id number] [place] [address] 20 May, 2011 [facility] [place] [facility] [address] [id number] [place] [address] 14 May, 2011 [facility] [place] [facility] [address] [id number] [place] [address] 13 May, 2011 [facility] [address] [id number] [place] [address] 03 May, 2011 [facility] [place] [facility] [address] [id number] [place] [address] May, [facility] [place] [facility] [address] [id number] [place] [address] May, [facility] [address] [facility] [id number] [place] [address] Apr, [facility] [address] [id number] [place] [address] Mar, [facility] [place] [facility] [address] [id number] [place] [address] Mar, [facility] [place] [facility] [address] [id number] [place] [address] Mar, [facility] [place] [facility] [address] [id number] [place] [address] Mar, [facility] [place] [facility] [address] [id number] [place] [address] Mar, [facility] [address] [facility] [id number], [place] [address] Jan, [facility] [address] [id number], [place] [address] Jan, [facility] [address] [id number], [place] [address] Jan, [facility] [id number] [address] August, [facility] [address] [id number], [place] [address] Mar, [facility] [id number], [place] [address] Feb, [facility] [id number], [place] [address] Jan, [facility] [address] [id number], [place] [address] Jan, IMMUNIZATIONS No Known Immunizations SOCIAL HISTORY Never Assessed REASON FOR VISIT EMR-[facility] [place] PLAN OF CARE VITAL SIGNS MEDICATIONS Medication Instructions Dosage Frequency Start Date End Date Duration Status Bactrim DS 800-160 mg 1 tablet by Oral route 2 times per day for 5 day(s) May, Active Amoxicillin 500 mg 1 capsule by Oral route 3 times per day for 10 day(s) Oct, Active Cozaar 50 mg 1 tablet by Oral route 1 time per day for BP- take in PM May, Active Cipro 500 mg 1 tablet by Oral route every 12 hours for 7 day(s) Sep, Active RESULTS No Results PROCEDURES No Known procedures INSTRUCTIONS MEDICATIONS ADMINISTERED No Known Medications MEDICAL (GENERAL) HISTORY Type Description Date Medical History diabetes mellitus Medical History morbid obesity Medical History hypertension Medical History chronic pain Medical History Anxiety disorder Surgical History cholecystectomy Surgical History x 2 Hospitalization History surgeries Hospitalization History labor and delivery
--- OUTSIDE RECORDS SUMMARY | 2018-09-17 23:20 | XMS REPORT ---
Author Author Migration, Doctor Organization [facility] Address Unknown Phone Unavailable Care Team Providers Care Morgue Attendant Name Role Phone Migration, Doctor Unavailable Unavailable PROBLEMS Type Condition ICD9-CM Code [id number] Code Onset Dates Condition Status SNOMED Code Problem CAD (coronary artery disease) I25.10 Active 38260271 Problem Osteoarthritis of knees, bilateral M17.0 Active 972873658 Problem Essential hypertension I10 Active 10862865 Problem Diabetes E11.9 Active 50592029 Problem Arthritis M19.90 Active 2094487 Problem Morbid obesity E66.01 Active 779444631 Problem Hyperlipemia E78.5 Active 12353541 ALLERGIES No Information ENCOUNTERS Encounter Location Date Diagnosis [place] [id number] [place] [address] Apr, [place] [id number] [place] [address] Mar, Pustular lesion L08.9 and Encounter for immunization Z23 [place] [id number] [place] [address] Feb, [place] [id number] [place] [address] Dec, [place] [id number] [place] [address] Dec, [place] [id number] [place] [address] Dec, Diabetes E11.9 ; Essential hypertension I10 ; Arthritis M19.90 ; Urinary frequency R35.0 ; Routine adult health maintenance Z00.00 and BMI 45.0- 49.9, adult Z68.42 [place] [id number] [place] [address] Dec, [place] [id number] [place] [address] Dec, [place] [address] [address] Oct, [place] [id number] [place] [address] Sep, Diabetes E11.9 [place] [address] [address] Sep, Diabetes E11.9 ; Hyperlipemia E78.5 ; CAD (coronary artery disease) I25.10 ; Essential hypertension I10 and BMI 45.0-49.9, adult Z68.42 [place] [address] [address] Sep, [place] [id number] [place] [address] August, [place] [id number] [place] [address] Jan, Dysuria R30.0 [place] [address] [address] Jan, Dysuria R30.0 [place] [id number] [place] [address] Jan, Osteoarthritis of knees, bilateral M17.0 [place] [id number] [place] [address] Nov, Dysuria R30.0 [place] [id number] [place] [address] Oct, Blood in urine R31.9 ; Dysuria R30.0 ; Pharyngeal dysphagia R13.13 ; Acute cystitis with hematuria N30.01 ; CAD (coronary artery disease) I25.10 and Diabetes E11.9 [place] [id number] [place] [address] Oct, [place] [id number] [place] [address] Sep, Arthritis M19.90 ; Blood in urine R31.9 ; Diabetes E11.9 ; Acute cystitis with hematuria N30.01 and Pharyngoesophageal dysphagia R13.14 [facility] [id number] [place] [address] Sep, Osteoarthritis of knees, bilateral M17.0 [facility] [id number] [place] [address] Sep, Osteoarthritis of knees, bilateral M17.0 [facility] [id number] [place] [address] August, Arthritis M19.90 [facility] [id number] [place] [address] Jul, Arthritis M19.90 [facility] [id number] [place] [address] Jun, Arthritis M19.90 [facility] [id number] [place] [address] Jun, [facility] [id number] [place] [address] Jun, [facility] [id number] [place] [address] May, Diabetes E11.9 ; Dysuria R30.0 and Arthritis M19.90 [facility] [id number] [place] [address] Apr, [facility] [id number] [place] [address] Apr, Arthritis M19.90 [facility] [id number] [place] [address] Mar, Arthritis M19.90 [facility] [id number] [address] Feb, [facility] [id number] [place] [address] Jan, [facility] [id number] [place] [address] 29 Dec, 2015 Diabetes E11.9 and Arthritis M19.90 [facility] [id number] [place] [address] Dec, [facility] [id number] [place] [address] Nov, Arthritis M19.90 [facility] [id number] [place] [address] Nov, [facility] [id number] [place] [address] Oct, Arthritis M19.90 [facility] [id number] [place] [address] Sep, Osteoarthritis of knees, bilateral M17.0 [facility] [id number] [place] [address] Sep, Osteoarthritis of knees, bilateral M17.0 [facility] [id number] [place] [address] August, Arthritis M19.90 [facility] [id number] [place] [address] August, [facility] [id number] [place] [address] Jul, Hyperlipemia E78.5 [facility] [id number] [place] [address] Jul, Encounter for well woman exam Z01.419 ; Morbid obesity E66.01 ; Encounter for screening for malignant neoplasm of cervix Z12.4 and Encounter for screening mammogram for breast cancer Z12.31 [facility] [address] [address] Jul, Arthritis M19.90 ; Diabetes E11.9 ; Blood in urine R31.9 and UTI (urinary tract infection) N39.0 [facility] [address] [address] Jul, [facility] [address] [address] Jun, Arthritis M19.90 [facility] [address] [address] May, Arthritis M19.90 [facility] [address] [address] May, [facility] [address] [address] Apr, [facility] [address] [place] [address] Apr, Arthritis M19.90 ; Diabetes E11.9 and Morbid obesity E66.01 [facility] [address] [address] Apr, [facility] [address] [address] Apr, Dyspareunia N94.1 [facility] [address] [address] Apr, [facility] [address] [address] Apr, [facility] [address] [address] Apr, Osteoarthritis of knees, bilateral M17.0 [facility] [address] [address] Apr, Diabetes E11.9 and CAD (coronary artery disease) I25.10 [facility] [id number] [address] Mar, [facility] [address] [address] Feb, [facility] [address] [address] Jan, [facility] [id number] [place] [address] Jan, [facility] [id number] [place] [address] Jan, [facility] [id number] [place] [address], [place] [address] Jan, Osteoarthritis of knees, bilateral M17.0 [facility] [address] [place] [address] Dec, [facility] [address] [address] Dec, [facility] [address] [address] Dec, [facility] [address] [address] Dec, Diabetes mellitus 250.00 and UTI (urinary tract infection) 599.0 [facility] [address] [address] Dec, [facility] [id number] [address] Nov, [facility] [address] [address] Oct, [facility] [address] [address] Oct, [facility] [id number] [address] Oct, [facility] [place] [facility] [address] [id number] [place] [address] Oct, [facility] [place] [facility] [address] [id number] [place] [address] Oct, [facility] [place] [facility] [address] [id number] [place] [address] Sep, [facility] [place] [facility] [address] [id number] [place] [address] August, [facility] [place] [facility] [address] [id number] [place] [address] August, [facility] [place] [facility] [address] [id number] [place] [address] August, [facility] [place] [facility] [address] [id number] [place] [address] Jul, [facility] [place] [facility] [address] [id number] [place] [address] Jul, [facility] [place] [facility] [address] [id number] [place] [address] Jul, [facility] [place] [facility] [address] [id number] [place] [address] Jun, [facility] [place] [facility] [address] [id number] [place] [address] 24 Jun, 2014 [facility] [place] [facility] [address] [id number] [place] [address] 24 Jun, 2014 [facility] [place] [facility] [address] [id number] [place] [address] 24 Jun, 2014 [facility] [place] [facility] [address] [id number] [place] [address] 24 Jun, 2014 [facility] [place] [facility] [address] [id number] [place] [address] 16 Jun, 2014 [facility] [place] [facility] [address] [id number] [address] Jun, [facility] [place] [facility] [address] [id number] [place] [address] Jun, [facility] [place] [facility] [address] [id number] [place] [address] May, 2014 [facility] [place] [facility] [address] [facility] [id number] [place] [address] May, 2014 [facility] [place] [facility] [address] [facility] [id number] [place] [address] May, 2014 [facility] [place] [facility] [address] [id number] [place] [address] May, 2014 [facility] [place] [facility] [address] [facility] [id number] [place] [address] May, 2014 [facility] [place] [facility] [id number] [place] [address] May, 2014 [facility] [place] [facility] [address] [facility] [id number] [place] [address] May, 2014 [facility] [place] [facility] [id number] [place] [address] May, 2014 [facility] [place] [facility] [id number] [place] [address] May, 2014 [facility] [place] [facility] [address] [facility] [id number] [place] [address] May, 2014 [facility] [place] [facility] [address] [facility] [id number] [address] May, [facility] [place] [facility] [address] [facility] [id number] [place] [address] May, 2014 [facility] [place] [facility] [address] [facility] [id number] [address] Apr, [facility] [place] [facility] [address] [facility] [id number] [address] Apr, [facility] [place] [facility] [address] [id number] [place] [address] Mar, [facility] [place] [facility] [address] [id number] [place] [address] Mar, [facility] [place] [facility] [address] [id number] [place] [address] Mar, [facility] [place] [facility] [address] [id number] [place] [address] Mar, [facility] [place] [facility] [address] [id number] [place] [address] Mar, [facility] [place] [facility] [address] [id number] [place] [address] Mar, [facility] [place] [facility] [address] [id number] [place] [address] Feb, [facility] [place] [facility] [address] [id number] [place] [address] Feb, [facility] [place] [facility] [address] [id number] [place] [address] Feb, [facility] [place] [facility] [address] [id number] [place] [address] Feb, [facility] [place] [facility] [address] [id number] [address] Feb, [facility] [place] [facility] [address] [id number] [place] [address] Feb, [facility] [place] [facility] [address] [id number] [place] [address] Feb, [facility] [place] [facility] [address] [id number] [address] Feb, [facility] [place] [facility] [address] [id number] [address] Feb, [facility] [place] [facility] [address] [id number] [place] [address] Jan, [facility] [place] [facility] [address] [id number] [place] [address] Jan, [facility] [place] [facility] [address] [id number] [place] [address] Jan, [facility] [place] [facility] [address] [id number] [place] [address] Jan, [facility] [place] [facility] [address] [id number] [place] [address] Jan, [facility] [place] [facility] [address] [id number] [place] [address] Jan, [facility] [place] [facility] [address] [id number] [place] [address] Jan, [facility] [place] [facility] [address] [id number] [place] [address] Jan, [facility] [place] [facility] [address] [id number] [place] [address] Jan, [facility] [place] [facility] [address] [id number] [place] [address] Jan, [facility] [place] [facility] [address] [id number] [place] [address] Dec, [facility] [place] [facility] [address] [id number] [place] [address] 19 Dec, 2013 [facility] [place] [facility] [address] [id number] [place] [address] 10 Dec, 2013 [facility] [place] [facility] [address] [id number] [place] [address] Dec, [facility] [place] [facility] [address] [id number] [place] [address] Nov, [facility] [place] [facility] [address] [id number] [place] [address] Nov, [facility] [place] [facility] [address] [id number] [place] [address] Nov, [facility] [place] [facility] [address] [id number] [place] [address] Nov, [facility] [place] [facility] [address] [id number] [place] [address] Nov, [facility] [place] [facility] [address] [id number] [place] [address] Nov, [facility] [place] [facility] [address] [id number] [place] [address] Nov, [facility] [place] [facility] [address] [id number] [place] [address] Nov, [facility] [place] [facility] [address] [id number] [place] [address] Nov, [facility] [place] [facility] [address] [id number] [place] [address] Oct, [facility] [place] [facility] [address] [id number] [place] [address] Oct, [facility] [place] [facility] [address] [id number] [place] [address] Sep, [facility] [place] [facility] [address] [id number] [place] [address] Sep, [facility] [place] [facility] [address] [id number] [place] [address] Sep, [facility] [place] [facility] [address] [id number] [place] [address] Sep, [facility] [place] [facility] [address] [id number] [place] [address] Sep, [facility] [place] [facility] [address] [id number] [place] [address] Sep, [facility] [place] [facility] [address] [id number] [place] [address] Sep, [facility] [place] [facility] [address] [id number] [place] [address] Sep, [facility] [place] [facility] [address] [id number] [place] [address] Sep, [facility] [place] [facility] [address] [id number] [place] [address] Sep, [facility] [place] [facility] [address] [id number] [place] [address] Sep, [facility] [place] [facility] [address] [id number] [place] [address] Sep, [facility] [place] [facility] [address] [id number] [place] [address] Sep, [facility] [place] [facility] [address] [id number] [place] [address] Sep, [facility] [place] [facility] [address] [id number] [place] [address] August, [facility] [place] [facility] [address] [id number] [place] [address] August, [facility] [place] [facility] [address] [id number] [place] [address] August, [facility] [place] [facility] [address] [id number] [place] [address] August, [facility] [place] [facility] [address] [id number] [place] [address] Jul, [facility] [place] [facility] [address] [id number] [place] [address] Jul, [facility] [place] [facility] [address] [id number] [place] [address] Jul, [facility] [place] [facility] [address] [id number] [place] [address] Jul, [facility] [place] [facility] [address] [id number] [place] [address] Jun, [facility] [place] [facility] [address] [id number] [place] [address] Jun, [facility] [place] [facility] [address] [id number] [place] [address] May, [facility] [place] [facility] [address] [id number] [place] [address] May, [facility] [place] [facility] [address] [id number] [place] [address] May, [facility] [place] [facility] [address] [id number] [place] [address] May, [facility] [place] [facility] [address] [id number] [place] [address] May, [facility] [place] [facility] [address] [id number] [place] [address] May, [facility] [place] [facility] [address] [id number] [place] [address] May, [facility] [place] [facility] [address] [id number] [place] [address] May, [facility] [place] [facility] [address] [id number] [place] [address] May, [facility] [place] [facility] [address] [id number] [place] [address] Apr, [facility] [place] [facility] [address] [id number] [place] [address] Apr, [facility] [place] [facility] [address] [id number] [place] [address] Apr, [facility] [place] [facility] [address] [id number] [place] [address] Apr, [facility] [place] [facility] [address] [id number] [address] Apr, [facility] [place] [facility] [address] [id number] [place] [address] Mar, [facility] [place] [facility] [address] [id number] [place] [address] Mar, [facility] [place] [facility] [address] [id number] [place] [address] Feb, [facility] [place] [facility] [address] [id number] [place] [address] Feb, [facility] [place] [facility] [address] [id number] [place] [address] Feb, [facility] [place] [facility] [address] [id number] [place] [address] Feb, [facility] [place] [facility] [address] [id number] [place] [address] Feb, [facility] [place] [facility] [address] [id number] [place] [address] Feb, [facility] [place] [facility] [address] [id number] [place] [address] Feb, [facility] [place] [facility] [address] [id number] [place] [address] Feb, [facility] [place] [facility] [address] [id number] [place] [address] Feb, [facility] [place] [facility] [address] [id number] [place] [address] Jan, [facility] [place] [facility] [address] [id number] [place] [address] Jan, [facility] [place] [facility] [address] [id number] [place] [address] Jan, [facility] [place] [facility] [address] [id number] [place] [address] Jan, [facility] [place] [facility] [address] [id number] [place] [address] Jan, [facility] [address] [id number] [place] [address] Dec, [facility] [address] [id number] [place] [address] Dec, [facility] [address] [id number] [place] [address] Nov, [facility] [address] [id number] [place] [address] Nov, [facility] [address] [id number] [place] [address] Oct, [facility] [address] [id number] [place] [address] Oct, [facility] [address] [id number] [place] [address] Oct, [facility] [address] [id number] [place] [address] Sep, [facility] [address] [id number] [place] [address] Sep, [facility] [address] [id number] [place] [address] Sep, [facility] [address] [id number] [place] [address] August, [facility] [address] [id number] [place] [address] August, [facility] [address] [id number] [place] [address] August, [facility] [address] [id number] [place] [address] August, [facility] [address] [id number] [place] [address] Jul, [facility] [address] [id number] [place] [address] Jun, [facility] [place] [facility] [address] [id number] [place] [address] Jun, [facility] [place] [facility] [address] [id number] [place] [address] Jun, [facility] [place] [facility] [address] [id number] [place] [address] May, [facility] [place] [facility] [address] [id number] [place] [address] May, [facility] [place] [facility] [address] [id number] [place] [address] May, [facility] [place] [facility] [address] [id number] [place] [address] May, [facility] [place] [facility] [address] [id number] [place] [address] Apr, [facility] [place] [facility] [address] [id number] [place] [address] Apr, [facility] [place] [facility] [address] [id number] [place] [address] Apr, [facility] [place] [facility] [address] [id number] [place] [address] Apr, [facility] [place] [facility] [address] [id number] [place] [address] Apr, [facility] [place] [facility] [address] [id number] [place] [address] Mar, [facility] [place] [facility] [address] [id number] [place] [address] Mar, [facility] [place] [facility] [address] [id number] [place] [address] Mar, [facility] [place] [facility] [address] [id number] [place] [address] Mar, [facility] [place] [facility] [address] [id number] [place] [address] Mar, [facility] [place] [facility] [address] [id number] [place] [address] Mar, [facility] [place] [facility] [address] [id number] [place] [address] Mar, [facility] [place] [facility] [address] [id number] [place] [address] Feb, [facility] [place] [facility] [address] [id number] [place] [address] Feb, [facility] [place] [facility] [address] [id number] [place] [address] Feb, [facility] [place] [facility] [address] [id number] [place] [address] Feb, [facility] [place] [facility] [address] [id number] [place] [address] Feb, [facility] [place] [facility] [address] [id number] [place] [address] Feb, [facility] [place] [facility] [address] [facility] [id number] [place] [address] Feb, [facility] [place] [facility] [address] [id number] [place] [address] Feb, [facility] [place] [facility] [address] [id number] [address] Jan, [facility] [place] [facility] [address] [id number] [place] [address] Jan, [facility] [place] [facility] [address] [facility] [id number] [place] [address] Jan, [facility] [place] [facility] [address] [id number] [place] [address] Jan, [facility] [place] [facility] [address] [id number] [place] [address] 27 Dec, 2011 [facility] [place] [facility] [address] [id number] [place] [address] 25 Dec, 2011 [facility] [place] [facility] [address] [id number] [place] [address] 18 Dec, 2011 [facility] [place] [facility] [address] [id number] [place] [address] 13 Dec, 2011 [facility] [address] [id number] [place] [address] 11 Dec, 2011 [facility] [place] [facility] [address] [id number] [place] [address] Oct, [facility] [address] [id number] [place] [address] Oct, [facility] [address] [id number] [place] [address] Sep, [facility] [place] [facility] [address] [id number] [place] [address] Sep, [facility] [place] [facility] [address] [id number] [place] [address] August, [facility] [place] [facility] [address] [id number] [place] [address] August, [facility] [place] [facility] [address] [id number] [place] [address] Jul, [facility] [place] [facility] [address] [id number] [place] [address] Jun, [facility] [place] [facility] [address] [id number] [place] [address] Jun, [facility] [place] [facility] [address] [id number] [place] [address] Jun, [facility] [place] [facility] [address] [id number] [place] [address] Jun, [facility] [address] [id number] [place] [address] Jun, [facility] [place] [facility] [address] [id number] [place] [address] 24 May, 2011 [facility] [place] [facility] [address] [id number] [place] [address] May, [facility] [place] [facility] [address] [id number] [place] [address] 20 May, 2011 [facility] [place] [facility] [address] [id number] [place] [address] 14 May, 2011 [facility] [place] [facility] [address] [id number] [place] [address] 13 May, 2011 [facility] [address] [id number] [place] [address] 03 May, 2011 [facility] [place] [facility] [address] [id number] [place] [address] May, [facility] [place] [facility] [address] [id number] [place] [address] May, [facility] [address] [facility] [id number] [place] [address] Apr, [facility] [address] [id number] [place] [address] Mar, [facility] [place] [facility] [address] [id number] [place] [address] Mar, [facility] [place] [facility] [address] [id number] [place] [address] Mar, [facility] [place] [facility] [address] [id number] [place] [address] Mar, [facility] [place] [facility] [address] [id number] [place] [address] Mar, [facility] [address] [id number] [address] Jan, [facility] [id number] [address] Jan, [facility] [id number] [address] Jan, [facility] [id number] [address] August, [facility] [id number] [address] Mar, [facility] [id number] [address] Feb, [facility] [id number] [address] Jan, [facility] [id number] [address] Jan, IMMUNIZATIONS No Known Immunizations SOCIAL HISTORY Never Assessed REASON [place] [place] VITAL SIGNS MEDICATIONS Unknown [...]
--- OUTSIDE RECORDS SUMMARY | 2018-09-17 23:21 | XMS REPORT ---
Author Author KATIE HUDSON Organization [facility] Address [address] [place] [address] Care Team Providers Care Ruling Machine Feeder Name Role Phone KATIE HUDSON Unavailable PROBLEMS Type Condition ICD9-CM Code IEL01-QH Code Onset Dates Condition Status SNOMED Code Problem CAD (coronary artery disease) I25.10 Active 31967219 Problem Essential hypertension I10 Active 20277841 Problem Osteoarthritis of knees, bilateral M17.0 Active 174743530 Problem Arthritis M19.90 Active 3611702 Problem Diabetes E11.9 Active 52768097 Problem Hyperlipemia E78.5 Active 85648606 Problem Morbid obesity E66.01 Active [id number] ALLERGIES No Information ENCOUNTERS Encounter Location Date Diagnosis [facility] [id number] [place] [address] Dec, [facility] [id number] [place] [address] Dec, [facility] [id number] [place] [address] Dec, Diabetes E11.9 ; Essential hypertension I10 ; Arthritis M19.90 ; Urinary frequency R35.0 ; Routine adult health maintenance Z00.00 and BMI 45.0- 49.9, adult Z68.42 [facility] [id number] [place] [address] Dec, [facility] [address] [address] Dec, [facility] [id number] [place] [address] Oct, [facility] [id number] [place] [address] Sep, Diabetes E11.9 [facility] [id number] [place] [address] Sep, Diabetes E11.9 ; Hyperlipemia E78.5 ; CAD (coronary artery disease) I25.10 ; Essential hypertension I10 and BMI 45.0-49.9, adult Z68.42 [facility] [id number] [place] [address] Sep, [facility] [id number] [place] [address] August, [facility] [address] [address] Jan, Dysuria R30.0 [facility] [id number] [place] [address] Jan, Dysuria R30.0 [facility] [id number] [place] [address] Jan, Osteoarthritis of knees, bilateral M17.0 [facility] [id number] [place] [address] Nov, Dysuria R30.0 [facility] [id number] [place] [address] Oct, Blood in urine R31.9 ; Dysuria R30.0 ; Pharyngeal dysphagia R13.13 ; Acute cystitis with hematuria N30.01 ; CAD (coronary artery disease) I25.10 and Diabetes E11.9 [facility] [id number] [place] [address] Oct, [facility] [id number] [place] [address] Sep, Arthritis M19.90 ; Blood in urine R31.9 ; Diabetes E11.9 ; Acute cystitis with hematuria N30.01 and Pharyngoesophageal dysphagia R13.14 [facility] [address] [place] [address] 29 Sep, 2016 Osteoarthritis of knees, bilateral M17.0 [facility] [id number] [place] [address] 19 Sep, 2016 Osteoarthritis of knees, bilateral M17.0 [facility] [id number] [place] [address] August, Arthritis M19.90 [facility] [id number] [place] [address] Jul, Arthritis M19.90 [facility] [id number] [place] [address] Jun, Arthritis M19.90 [facility] [id number] [place] [address] Jun, [facility] [id number] [place] [address] Jun, [facility] [id number] [place] [address] May, Diabetes E11.9 ; Dysuria R30.0 and Arthritis M19.90 [facility] [id number] [place] [address] Apr, [facility] [id number] [place] [address] Apr, Arthritis M19.90 [facility] [id number] [place] [address] Mar, Arthritis M19.90 [facility] [id number] [place] [address] Feb, [facility] [id number] [place] [address] Jan, [facility] [id number] [place] [address] 29 Dec, 2015 Diabetes E11.9 and Arthritis M19.90 [facility] [address] [address] Dec, [facility] [id number] [place] [address] Nov, Arthritis M19.90 [facility] [address] [address] Nov, [facility] [id number] [place] [address] Oct, Arthritis M19.90 [facility] [id number] [place] [address] Sep, Osteoarthritis of knees, bilateral M17.0 [facility] [id number] [place] [address] Sep, Osteoarthritis of knees, bilateral M17.0 [facility] [id number] [place] [address] August, Arthritis M19.90 [facility] [address] [place] [address] August, [facility] [address] [place] [address] Jul, Hyperlipemia E78.5 [facility] [address] [place] [address] Jul, Encounter for well woman exam Z01.419 ; Morbid obesity E66.01 ; Encounter for screening for malignant neoplasm of cervix Z12.4 and Encounter for screening mammogram for breast cancer Z12.31 [facility] [address] [place] [address] Jul, Arthritis M19.90 ; Diabetes E11.9 ; Blood in urine R31.9 and UTI (urinary tract infection) N39.0 [facility] [address] [address] Jul, [facility] [address] [place] [address] Jun, Arthritis M19.90 [facility] [id number] [place] [address] May, Arthritis M19.90 [facility] [id number] [place] [address] May, [facility] [id number] [place] [address] Apr, [facility] [id number] [place] [address] Apr, Arthritis M19.90 ; Diabetes E11.9 and Morbid obesity E66.01 [facility] [id number] [place] [address] Apr, [facility] [id number] [place] [address] Apr, Dyspareunia N94.1 [facility] [id number] [place] [address] Apr, [facility] [id number] [place] [address] Apr, [facility] [id number] [place] [address] Apr, Osteoarthritis of knees, bilateral M17.0 [facility] [id number] [place] [address] Apr, Diabetes E11.9 and CAD (coronary artery disease) I25.10 [facility] [id number] [place] [address] 08 Mar, 2015 [facility] [id number] [place] [address] 10 Feb, 2015 [facility] [id number] [place] [address] Jan, [facility] [address] [id number] [address] Jan, [facility] [address] [facility] [id number] [address] Jan, [facility] [address] [facility] [id number] [address] Jan, Osteoarthritis of knees, bilateral M17.0 [facility] [address] [id number] [address] 30 Dec, 2014 [facility] [address] [facility] [id number] [place] [address] Dec, [facility] [address] [facility] [id number] [address] Dec, [facility] [id number] [address] 08 Dec, 2014 Diabetes mellitus 250.00 and UTI (urinary tract infection) 599.0 [facility] [address] [facility] [id number] [address] Dec, [facility] [address] [facility] [id number] [address] Nov, [facility] [address] [facility] [id number] [address] Oct, [facility] [address] [facility] [id number] [address] Oct, [facility] [address] [facility] [id number] [address] Oct, [facility] [address] [facility] [id number] [address] Oct, [facility] [address] [facility] [id number] [address] Oct, [facility] [address] [facility] [id number] [address] Sep, [facility] [place] [facility] [address] [id number] [place] [address] August, [facility] [place] [facility] [address] [id number] [place] [address] August, [facility] [place] [facility] [address] [id number] [place] [address] August, [facility] [place] [facility] [address] [id number] [place] [address] Jul, [facility] [place] [facility] [address] [id number] [place] [address] Jul, [facility] [place] [facility] [address] [id number] [place] [address] Jul, [facility] [place] [facility] [address] [id number] [place] [address] Jun, [facility] [place] [facility] [address] [id number] [place] [address] Jun, [facility] [place] [facility] [address] [id number] [place] [address] Jun, [facility] [place] [facility] [address] [facility] [id number] [place] [address] Jun, [facility] [place] [facility] [address] [id number] [place] [address] Jun, [facility] [place] [facility] [address] [id number] [place] [address] Jun, [facility] [place] [facility] [address] [id number] [place] [address] Jun, [facility] [place] [facility] [address] [facility] [id number] [place] [address] Jun, [facility] [place] [facility] [address] [facility] [id number] [place] [address] May, [facility] [place] [facility] [address] [id number] [place] [address] May, 2014 [facility] [place] [facility] [address] [id number] [place] [address] May, 2014 [facility] [place] [facility] [address] [id number] [place] [address] May, 2014 [facility] [place] [facility] [address] [id number] [place] [address] May, 2014 [facility] [place] [facility] [address] [id number] [place] [address] May, 2014 [facility] [place] [facility] [address] [id number] [place] [address] May, 2014 [facility] [place] [facility] [address] [facility] [id number] [place] [address] May, 2014 [facility] [place] [facility] [address] [id number] [place] [address] May, 2014 [facility] [place] [facility] [address] [id number] [place] [address] May, 2014 [facility] [place] [facility] [address] [facility] [id number] [place] [address] May, [facility] [place] [facility] [address] [facility] [id number] [address] May, [facility] [place] [facility] [address] [id number] [address] Apr, [facility] [place] [facility] [address] [id number] [place] [address] Apr, [facility] [place] [facility] [address] [id number] [address] Mar, [facility] [place] [facility] [address] [facility] [id number] [place] [address] Mar, [facility] [place] [facility] [address] [id number] [place] [address] 17 Mar, 2014 [facility] [place] [facility] [address] [id number] [place] [address] 17 Mar, 2014 [facility] [place] [facility] [address] [id number] [place] [address] 17 Mar, 2014 [facility] [place] [facility] [address] [id number] [place] [address] 16 Mar, 2014 [facility] [place] [facility] [address] [id number] [place] [address] Feb, [facility] [place] [facility] [address] [id number] [place] [address] Feb, [facility] [place] [facility] [address] [id number] [place] [address] Feb, [facility] [place] [facility] [address] [id number] [place] [address] 24 Feb, 2014 [facility] [place] [facility] [address] [id number] [place] [address] Feb, [facility] [place] [facility] [address] [id number] [place] [address] Feb, [facility] [place] [facility] [address] [facility] [id number] [place] [address] Feb, [facility] [place] [facility] [address] [id number] [place] [address] 18 Feb, 2014 [facility] [place] [facility] [address] [id number] [address] Feb, [facility] [place] [facility] [address] [id number] [place] [address] Jan, [facility] [place] [facility] [address] [id number] [place] [address] Jan, [facility] [place] [facility] [address] [id number] [address] Jan, [facility] [place] [facility] [address] [id number] [place] [address] Jan, [facility] [place] [facility] [address] [id number] [place] [address] Jan, [facility] [place] [facility] [address] [id number] [place] [address] Jan, [facility] [place] [facility] [address] [id number] [place] [address] Jan, [facility] [place] [facility] [address] [id number] [place] [address] Jan, [facility] [place] [facility] [address] [id number] [place] [address] Jan, [facility] [place] [facility] [address] [id number] [place] [address] Jan, [facility] [place] [facility] [address] [id number] [place] [address] Dec, [facility] [place] [facility] [address] [id number] [place] [address] Dec, [facility] [place] [facility] [address] [id number] [place] [address] Dec, [facility] [place] [facility] [address] [id number] [place] [address] Dec, [facility] [place] [facility] [address] [id number] [place] [address] Nov, [facility] [place] [facility] [address] [id number] [place] [address] Nov, [facility] [place] [facility] [address] [id number] [place] [address] Nov, [facility] [place] [facility] [address] [id number] [place] [address] Nov, [facility] [place] [facility] [address] [id number] [place] [address] Nov, [facility] [place] [facility] [address] [id number] [place] [address] Nov, [facility] [place] [facility] [address] [id number] [place] [address] Nov, [facility] [place] [facility] [address] [id number] [place] [address] Nov, [facility] [place] [facility] [address] [id number] [place] [address] Nov, [facility] [place] [facility] [address] [id number] [place] [address] Oct, [facility] [place] [facility] [address] [id number] [place] [address] Oct, [facility] [place] [facility] [address] [id number] [place] [address] Sep, [facility] [place] [facility] [address] [id number] [place] [address] Sep, [facility] [place] [facility] [address] [id number] [place] [address] Sep, [facility] [place] [facility] [address] [id number] [place] [address] Sep, [facility] [place] [facility] [address] [id number] [place] [address] Sep, [facility] [place] [facility] [address] [id number] [place] [address] Sep, [facility] [place] [facility] [address] [id number] [place] [address] Sep, [facility] [place] [facility] [address] [id number] [place] [address] Sep, [facility] [place] [facility] [address] [id number] [place] [address] Sep, [facility] [place] [facility] [address] [id number] [place] [address] Sep, [facility] [place] [facility] [address] [id number] [place] [address] Sep, [facility] [place] [facility] [address] [id number] [place] [address] Sep, [facility] [place] [facility] [address] [id number] [place] [address] Sep, [facility] [place] [facility] [address] [id number] [place] [address] Sep, [facility] [place] [facility] [address] [id number] [place] [address] August, [facility] [place] [facility] [address] [id number] [place] [address] August, [facility] [place] [facility] [address] [id number] [place] [address] August, [facility] [place] [facility] [address] [id number] [place] [address] August, [facility] [place] [facility] [address] [id number] [place] [address] Jul, [facility] [place] [facility] [address] [id number] [place] [address] Jul, [facility] [place] [facility] [address] [id number] [place] [address] Jul, [facility] [place] [facility] [address] [id number] [place] [address] Jul, [facility] [place] [facility] [address] [id number] [place] [address] Jun, [facility] [place] [facility] [address] [id number] [place] [address] Jun, [facility] [place] [facility] [address] [id number] [place] [address] May, [facility] [place] [facility] [address] [id number] [place] [address] May, [facility] [place] [facility] [address] [id number] [place] [address] May, [facility] [place] [facility] [address] [id number] [place] [address] May, [facility] [place] [facility] [address] [id number] [place] [address] May, [facility] [place] [facility] [address] [id number] [place] [address] May, [facility] [place] [facility] [address] [id number] [place] [address] May, [facility] [place] [facility] [address] [id number] [place] [address] May, [facility] [place] [facility] [address] [id number] [place] [address] May, [facility] [place] [facility] [address] [id number] [place] [address] Apr, [facility] [place] [facility] [address] [id number] [place] [address] Apr, [facility] [place] [facility] [address] [id number] [place] [address] Apr, [facility] [place] [facility] [address] [id number] [place] [address] Apr, [facility] [place] [facility] [address] [id number] [place] [address] Apr, [facility] [place] [facility] [address] [id number] [place] [address] Mar, [facility] [place] [facility] [address] [id number] [place] [address] Mar, [facility] [place] [facility] [address] [id number] [place] [address] Feb, [facility] [address] [id number] [place] [address] Feb, [facility] [place] [facility] [address] [id number] [place] [address] Feb, [facility] [address] [id number] [place] [address] Feb, [facility] [place] [facility] [address] [id number] [place] [address] Feb, [facility] [address] [id number] [place] [address] Feb, [facility] [address] [id number] [place] [address] Feb, [facility] [place] [facility] [address] [id number] [place] [address] Feb, [facility] [address] [id number] [place] [address] Feb, [facility] [place] [facility] [address] [id number] [place] [address] Jan, [facility] [address] [id number] [place] [address] Jan, [facility] [place] [facility] [address] [id number] [place] [address] Jan, [facility] [place] [facility] [address] [id number] [place] [address] Jan, [facility] [place] [facility] [address] [id number] [place] [address] Jan, [facility] [place] [facility] [address] [id number] [place] [address] Dec, [facility] [place] [facility] [address] [id number] [place] [address] Dec, [facility] [address] [id number] [place] [address] Nov, [facility] [place] [facility] [address] [id number] [place] [address] Nov, [facility] [place] [facility] [address] [id number] [place] [address] Oct, [facility] [place] [facility] [address] [id number] [place] [address] Oct, [facility] [place] [facility] [address] [id number] [place] [address] Oct, [facility] [place] [facility] [address] [id number] [place] [address] Sep, [facility] [place] [facility] [address] [id number] [place] [address] Sep, [facility] [place] [facility] [address] [id number] [place] [address] Sep, [facility] [place] [facility] [address] [id number] [place] [address] August, [facility] [place] [facility] [address] [id number] [place] [address] August, [facility] [place] [facility] [address] [id number] [place] [address] August, [facility] [place] [facility] [address] [id number] [place] [address] August, [facility] [place] [facility] [address] [id number] [place] [address] Jul, [facility] [place] [facility] [address] [id number] [place] [address] Jun, [facility] [place] [facility] [address] [id number] [place] [address] Jun, [facility] [place] [facility] [address] [id number] [place] [address] Jun, [facility] [address] [id number] [place] [address] May, [facility] [address] [id number] [place] [address] May, [facility] [address] [id number] [place] [address] May, [facility] [place] [facility] [address] [id number] [place] [address] May, [facility] [address] [id number] [place] [address] Apr, [facility] [address] [id number] [place] [address] Apr, [facility] [address] [id number] [place] [address] Apr, [facility] [address] [id number] [place] [address] Apr, [facility] [address] [id number] [place] [address] Apr, [facility] [address] [id number] [place] [address] Mar, [facility] [address] [id number] [place] [address] Mar, [facility] [address] [id number] [place] [address] Mar, [facility] [place] [facility] [address] [id number] [place] [address] Mar, [facility] [place] [facility] [address] [id number] [place] [address] Mar, [facility] [address] [id number] [place] [address] Mar, [facility] [place] [facility] [address] [id number] [place] [address] Mar, [facility] [place] [facility] [address] [id number] [place] [address] Feb, [facility] [place] [facility] [address] [id number] [place] [address] Feb, [facility] [place] [facility] [id number] [place] [address], [place] [address] Feb, [facility] [place] [facility] [address] [id number] [place] [address] Feb, [facility] [place] [facility] [address] [id number] [place] [address] Feb, [facility] [place] [facility] [address] [facility] [id number] [place] [address] Feb, [facility] [facility] [address] [id number] [place] [address] Feb, [facility] [place] [facility] [address] [id number] [place] [address] Feb, [facility] [place] [facility] [address] [id number] [place] [address] Jan, [facility] [place] [facility] [address] [id number] [place] [address] Jan, [facility] [place] [facility] [address] [id number] [address] Jan, [facility] [place] [facility] [address] [id number] [place] [address] Jan, [facility] [place] [facility] [address] [id number] [place] [address] Dec, [facility] [place] [facility] [address] [id number] [place] [address] Dec, [facility] [place] [facility] [address] [id number] [address] 18 Dec, 2011 [facility] [place] [facility] [address] [id number] [place] [address] 13 Dec, 2011 [facility] [place] [facility] [address] [id number] [place] [address] 11 Dec, 2011 [facility] [place] [facility] [address] [id number] [place] [address] Oct, [facility] [place] [facility] [address] [id number] [place] [address] Oct, [facility] [place] [facility] [address] [id number] [place] [address] Sep, [facility] [place] [facility] [address] [id number] [place] [address] Sep, [facility] [place] [facility] [address] [id number] [place] [address] August, [facility] [place] [facility] [address] [id number] [place] [address] August, [facility] [place] [facility] [address] [id number] [place] [address] Jul, [facility] [place] [facility] [address] [id number] [place] [address] Jun, [facility] [place] [facility] [address] [id number] [place] [address] Jun, [facility] [place] [facility] [address] [id number] [place] [address] Jun, [facility] [place] [facility] [address] [id number] [place] [address] Jun, [facility] [place] [facility] [address] [id number] [place] [address] Jun, [facility] [place] [facility] [address] [id number] [place] [address] 24 May, 2011 [facility] [place] [facility] [address] [id number] [place] [address] 22 May, 2011 [facility] [place] [facility] [address] [id number] [place] [address] 20 May, 2011 [facility] [place] [facility] [address] [id number] [place] [address] 14 May, 2011 [facility] [place] [facility] [address] [id number] [place] [address] 13 May, 2011 [facility] [place] [facility] [address] [id number] [place] [address] 03 May, 2011 [facility] [place] [facility] [address] [id number] [place] [address] 02 May, 2011 [facility] [address] [id number] [place] [address] May, [facility] [address] [facility] [id number] [place] [address] Apr, [facility] [address] [id number] [place] [address] Mar, [facility] [address] [id number] [place] [address] Mar, [facility] [address] [id number] [place] [address] Mar, [facility] [address] [id number] [address] 15 Mar, 2011 [facility] [address] [id number] [place] [address] Mar, [facility] [address] [id number] [place] [address] 17 Jan, 2011 [facility] [place] [facility] [address] [id number] [place] [address] 11 Jan, 2011 [facility] [address] [id number] [place] [address] Jan, [facility] [address] [facility] [id number] [address] August, [facility] [address] [id number] [address] Mar, [facility] [address] [id number] [address] Feb, [facility] [address] [id number] [address] 14 Jan, 2010 [facility] [address] [facility] [id number] [address] Jan, IMMUNIZATIONS No Known Immunizations SOCIAL HISTORY Never Assessed REASON FOR VISIT chest xray order PLAN OF CARE VITAL SIGNS MEDICATIONS Unknown [...]
--- OUTSIDE RECORDS SUMMARY | 2018-09-17 23:21 | XMS REPORT ---
Author Author KATIE HUDSON Organization [facility] Address [address] [place] [address] Care Team Providers Care Cna Hha Name Role Phone KATIE HUDSON Unavailable PROBLEMS Type Condition ICD9-CM Code [id number] Code Onset Dates Condition Status SNOMED Code Problem CAD (coronary artery disease) I25.10 Active 62397912 Problem Essential hypertension I10 Active 00118607 Problem Osteoarthritis of knees, bilateral M17.0 Active 672267269 Problem Arthritis M19.90 Active 8106416 Problem Diabetes E11.9 Active 79354708 Problem Hyperlipemia E78.5 Active 38255274 Problem Morbid obesity E66.01 Active [id number] ALLERGIES No Information ENCOUNTERS Encounter Location Date Diagnosis [place] [id number] [address] Mar, [facility] [address] [address] Feb, [facility] [address] [place] [id number] [place] [address] Dec, [facility] [address] [place] [id number] [place] [address] Dec, [place] [address] [address] Dec, Diabetes E11.9 ; Essential hypertension I10 ; Arthritis M19.90 ; Urinary frequency R35.0 ; Routine adult health maintenance Z00.00 and BMI 45.0- 49.9, adult Z68.42 [facility] [address] [place] [id number] [place] [address] 18 Dec, 2017 [facility] [address] [address] Dec, [facility] [address] [place] [id number] [place] [address] Oct, [facility] [address] [place] [id number] [place] [address] Sep, Diabetes E11.9 [place] [address] [place] [id number] [place] [address] Sep, Diabetes E11.9 ; Hyperlipemia E78.5 ; CAD (coronary artery disease) I25.10 ; Essential hypertension I10 and BMI 45.0-49.9, adult Z68.42 [place] [address] [address] Sep, [place] [address] [place] [id number] [place] [address] August, [place] [address] [address] Jan, Dysuria R30.0 [place] [address] [place] [id number] [place] [address] Jan, Dysuria R30.0 [place] [address] [address] Jan, Osteoarthritis of knees, bilateral M17.0 [place] [address] [place] [id number] [place] [address] Nov, Dysuria R30.0 [place] [address] [place] [id number] [place] [address] Oct, Blood in urine R31.9 ; Dysuria R30.0 ; Pharyngeal dysphagia R13.13 ; Acute cystitis with hematuria N30.01 ; CAD (coronary artery disease) I25.10 and Diabetes E11.9 [facility] [address] [place] [id number] [place] [address] Oct, [place] [address] [address] Sep, Arthritis M19.90 ; Blood in urine R31.9 ; Diabetes E11.9 ; Acute cystitis with hematuria N30.01 and Pharyngoesophageal dysphagia R13.14 [facility] [address] [address] 29 Sep, 2016 Osteoarthritis of knees, bilateral M17.0 [facility] [address] [place] [id number] [place] [address] Sep, Osteoarthritis of knees, bilateral M17.0 [facility] [address] [place] [id number] [place] [address] August, Arthritis M19.90 [facility] [address] [place] [id number] [place] [address] Jul, Arthritis M19.90 [facility] [address] [place] [id number] [place] [address] Jun, Arthritis M19.90 [facility] [address] [place] [id number] [place] [address] Jun, [facility] [address] [place] [id number] [place] [address] Jun, [facility] [id number] [place] [address] May, Diabetes E11.9 ; Dysuria R30.0 and Arthritis M19.90 [facility] [id number] [place] [address] Apr, [facility] [id number] [place] [address] Apr, Arthritis M19.90 [facility] [id number] [place] [address] Mar, Arthritis M19.90 [facility] [address] [place] [id number] [place] [address] Feb, [facility] [address] [address] Jan, [facility] [address] [place] [id number] [place] [address] 29 Dec, 2015 Diabetes E11.9 and Arthritis M19.90 [facility] [address] [address] Dec, [facility] [address] [place] [id number] [place] [address] Nov, Arthritis M19.90 [facility] [address] [place] [id number] [place] [address] Nov, [facility] [address] [place] [id number] [place] [address] Oct, Arthritis M19.90 [facility] [id number] [place] [address] Sep, Osteoarthritis of knees, bilateral M17.0 [facility] [id number] [place] [address] Sep, Osteoarthritis of knees, bilateral M17.0 [facility] [id number] [place] [address] August, Arthritis M19.90 [facility] [address] [address] August, [facility] [id number] [place] [address] Jul, Hyperlipemia E78.5 [facility] [id number] [place] [address] Jul, Encounter for well woman exam Z01.419 ; Morbid obesity E66.01 ; Encounter for screening for malignant neoplasm of cervix Z12.4 and Encounter for screening mammogram for breast cancer Z12.31 [facility] [address] [place] [address] Jul, Arthritis M19.90 ; Diabetes E11.9 ; Blood in urine R31.9 and UTI (urinary tract infection) N39.0 [facility] [address] [place] [id number] [place] [address] Jul, [facility] [address] [place] [id number] [place] [address] Jun, Arthritis M19.90 [facility] [address] [place] [id number] [place] [address] May, Arthritis M19.90 [facility] [address] [place] [id number] [place] [address] May, [facility] [address] [place] [id number] [place] [address] Apr, [facility] [address] [place] [id number] [place] [address] Apr, Arthritis M19.90 ; Diabetes E11.9 and Morbid obesity E66.01 [facility] [address] [place] [id number] [place] [address] Apr, [facility] [address] [place] [id number] [place] [address] Apr, Dyspareunia N94.1 [facility] [address] [place] [id number] [place] [address] Apr, [facility] [address] [place] [address] Apr, [facility] [address] [place] [address] Apr, Osteoarthritis of knees, bilateral M17.0 [facility] [address] [place] [id number] [place] [address] Apr, Diabetes E11.9 and CAD (coronary artery disease) I25.10 [facility] [address] [place] [id number] [place] [address] Mar, [facility] [address] [facility] [id number] [address] Feb, [facility] [address] [facility] [id number] [address] Jan, [facility] [address] [place] [id number] [address] Jan, [facility] [address] [facility] [id number] [place] [address] Jan, [facility] [address] [place] [id number] [address] Jan, Osteoarthritis of knees, bilateral M17.0 [facility] [address] [place] [id number] [address] Dec, [facility] [address] [place] [address] Dec, [facility] [address] [place] [id number] [address] Dec, [facility] [id number] [place] [address] Dec, Diabetes mellitus 250.00 and UTI (urinary tract infection) 599.0 [facility] [address] [place] [id number] [address] Dec, [facility] [address] [place] [id number] [address] Nov, [facility] [address] [place] [id number] [address] Oct, [facility] [address] [place] [id number] [address] Oct, [facility] [address] [place] [id number] [address] Oct, [facility] [address] [place] [id number] [address] Oct, [facility] [place] [facility] [address] [id number] [place] [address] Oct, [facility] [place] [facility] [address] [id number] [place] [address] Sep, [facility] [place] [facility] [address] [id number] [place] [address] August, [facility] [place] [facility] [address] [id number] [place] [address] August, [facility] [place] [facility] [address] [id number] [place] [address] August, [facility] [place] [facility] [address] [id number] [place] [address] Jul, [facility] [place] [facility] [address] [id number] [place] [address] Jul, [facility] [place] [facility] [address] [id number] [place] [address] Jul, [facility] [place] [facility] [address] [id number] [place] [address] Jun, [facility] [place] [facility] [address] [id number] [place] [address] 24 Jun, 2014 [facility] [place] [facility] [address] [id number] [place] [address] 24 Jun, 2014 [facility] [place] [facility] [address] [id number] [place] [address] 24 Jun, 2014 [facility] [place] [facility] [address] [id number] [place] [address] 24 Jun, 2014 [facility] [place] [facility] [address] [id number] [place] [address] 16 Jun, 2014 [facility] [place] [facility] [address] [id number] [place] [address] 16 Jun, 2014 [facility] [place] [facility] [address] [id number] [place] [address] Jun, [facility] [place] [facility] [address] [id number] [place] [address] May, 2014 [facility] [place] [facility] [address] [id number] [place] [address] May, 2014 [facility] [place] [facility] [address] [id number] [place] [address] May, 2014 [facility] [place] [facility] [address] [id number] [place] [address] May, 2014 [facility] [place] [facility] [address] [id number] [place] [address] May, 2014 [facility] [place] [facility] [address] [facility] [id number] [place] [address] May, 2014 [facility] [place] [facility] [address] [id number] [place] [address] May, 2014 [facility] [place] [facility] [address] [id number] [place] [address] May, [facility] [place] [facility] [address] [facility] [id number] [place] [address] May, [facility] [place] [facility] [address] [facility] [id number] [place] [address] May, 2014 [facility] [place] [facility] [address] [id number], [place] [address] May, [facility] [place] [facility] [address] [facility] [id number] [place] [address] May, [facility] [place] [facility] [address] [facility] [id number] [place] [address] Apr, [facility] [place] [facility] [address] [facility] [id number] [place] [address] Apr, [facility] [place] [facility] [address] [facility] [id number] [place] [address] 29 Mar, 2014 [facility] [place] [facility] [address] [id number] [place] [address] 29 Mar, 2014 [facility] [place] [facility] [address] [id number] [place] [address] Mar, [facility] [place] [facility] [address] [id number] [place] [address] Mar, [facility] [place] [facility] [address] [id number] [place] [address] Mar, [facility] [place] [facility] [address] [id number] [place] [address] 16 Mar, 2014 [facility] [place] [facility] [address] [id number] [place] [address] Feb, [facility] [place] [facility] [address] [id number] [place] [address] Feb, [facility] [place] [facility] [address] [id number] [place] [address] 24 Feb, 2014 [facility] [place] [facility] [address] [id number] [place] [address] 24 Feb, 2014 [facility] [place] [facility] [address] [facility] [id number] [place] [address] Feb, [facility] [place] [facility] [address] [id number] [place] [address] 18 Feb, 2014 [facility] [place] [facility] [address] [id number] [place] [address] 18 Feb, 2014 [facility] [place] [facility] [address] [id number] [place] [address] 18 Feb, 2014 [facility] [place] [facility] [address] [facility] [id number] [place] [address] 13 Feb, 2014 [facility] [place] [facility] [address] [id number] [place] [address] Jan, [facility] [place] [facility] [address] [id number] [place] [address] Jan, [facility] [place] [facility] [address] [id number] [place] [address] Jan, [facility] [place] [facility] [address] [id number] [place] [address] Jan, [facility] [place] [facility] [address] [id number] [place] [address] Jan, [facility] [place] [facility] [address] [id number] [place] [address] Jan, [facility] [place] [facility] [address] [id number] [place] [address] Jan, [facility] [place] [facility] [address] [id number] [place] [address] Jan, [facility] [place] [facility] [address] [id number] [place] [address] Jan, [facility] [place] [facility] [address] [id number] [place] [address] Jan, [facility] [place] [facility] [address] [id number] [place] [address] Dec, [facility] [place] [facility] [address] [id number] [place] [address] Dec, [facility] [place] [facility] [address] [id number] [place] [address] Dec, [facility] [place] [facility] [address] [id number] [place] [address] Dec, [facility] [place] [facility] [address] [id number] [place] [address] Nov, [facility] [place] [facility] [address] [id number] [place] [address] Nov, [facility] [place] [facility] [address] [id number] [place] [address] Nov, [facility] [place] [facility] [address] [id number] [place] [address] Nov, [facility] [place] [facility] [address] [id number] [place] [address] Nov, [facility] [place] [facility] [address] [id number] [place] [address] Nov, [facility] [place] [facility] [address] [id number] [place] [address] Nov, [facility] [place] [facility] [address] [id number] [place] [address] Nov, [facility] [place] [facility] [address] [id number] [place] [address] Nov, [facility] [place] [facility] [address] [id number] [place] [address] Oct, [facility] [place] [facility] [address] [id number] [place] [address] Oct, [facility] [place] [facility] [address] [id number] [place] [address] Sep, [facility] [place] [facility] [address] [id number] [place] [address] Sep, [facility] [place] [facility] [address] [id number] [place] [address] Sep, [facility] [place] [facility] [address] [id number] [place] [address] Sep, [facility] [place] [facility] [address] [id number] [place] [address] Sep, [facility] [place] [facility] [address] [id number] [place] [address] Sep, [facility] [place] [facility] [address] [id number] [place] [address] Sep, [facility] [place] [facility] [address] [id number] [place] [address] 14 Sep, 2013 [facility] [place] [facility] [address] [id number] [place] [address] Sep, [facility] [place] [facility] [address] [id number] [place] [address] Sep, [facility] [place] [facility] [address] [id number] [place] [address] Sep, [facility] [place] [facility] [address] [id number] [place] [address] Sep, [facility] [place] [facility] [address] [id number] [place] [address] Sep, [facility] [place] [facility] [address] [id number] [place] [address] Sep, [facility] [place] [facility] [address] [id number] [place] [address] August, [facility] [place] [facility] [address] [id number] [place] [address] August, [facility] [place] [facility] [address] [id number] [place] [address] August, [facility] [place] [facility] [address] [id number] [place] [address] August, [facility] [place] [facility] [address] [id number] [place] [address] Jul, [facility] [place] [facility] [address] [id number] [place] [address] Jul, [facility] [place] [facility] [address] [id number] [place] [address] Jul, [facility] [place] [facility] [address] [id number] [place] [address] Jul, [facility] [place] [facility] [address] [id number] [place] [address] Jun, [facility] [place] [facility] [address] [id number] [place] [address] Jun, [facility] [place] [facility] [address] [id number] [place] [address] May, [facility] [place] [facility] [address] [id number] [place] [address] May, [facility] [place] [facility] [address] [id number] [place] [address] May, [facility] [place] [facility] [address] [id number] [place] [address] May, [facility] [place] [facility] [address] [id number] [place] [address] May, [facility] [place] [facility] [address] [id number] [place] [address] May, [facility] [place] [facility] [address] [id number] [place] [address] May, [facility] [place] [facility] [address] [id number] [place] [address] May, [facility] [place] [facility] [address] [id number] [place] [address] May, [facility] [place] [facility] [address] [id number] [place] [address] Apr, [facility] [place] [facility] [address] [id number] [place] [address] Apr, [facility] [place] [facility] [address] [id number] [place] [address] Apr, [facility] [place] [facility] [address] [id number] [place] [address] Apr, [facility] [place] [facility] [address] [id number] [place] [address] Apr, [facility] [place] [facility] [address] [id number] [place] [address] Mar, [facility] [address] [id number] [place] [address] Mar, [facility] [place] [facility] [address] [id number] [place] [address] Feb, [facility] [address] [id number] [place] [address] Feb, [facility] [place] [facility] [address] [id number] [place] [address] Feb, [facility] [address] [id number] [place] [address] Feb, [facility] [address] [id number] [place] [address] Feb, [facility] [address] [id number] [place] [address] Feb, [facility] [address] [id number] [place] [address] Feb, [facility] [place] [facility] [address] [id number] [place] [address] Feb, [facility] [address] [id number] [place] [address] Feb, [facility] [place] [facility] [address] [id number] [place] [address] Jan, [facility] [place] [facility] [address] [id number], [place] [address] Jan, [facility] [place] [facility] [address] [id number] [place] [address] Jan, [facility] [place] [facility] [address] [id number] [place] [address] Jan, [facility] [place] [facility] [address] [id number] [place] [address] Jan, [facility] [address] [id number] [place] [address] Dec, [facility] [place] [facility] [address] [id number] [place] [address] Dec, [facility] [place] [facility] [address] [id number] [place] [address] Nov, [facility] [place] [facility] [address] [id number] [place] [address] Nov, [facility] [place] [facility] [address] [id number] [place] [address] Oct, [facility] [place] [facility] [address] [id number] [place] [address] Oct, [facility] [place] [facility] [address] [id number] [place] [address] Oct, [facility] [place] [facility] [address] [id number] [place] [address] Sep, [facility] [place] [facility] [address] [id number] [place] [address] Sep, [facility] [place] [facility] [address] [id number] [place] [address] Sep, [facility] [place] [facility] [address] [id number] [place] [address] August, [facility] [place] [facility] [address] [id number] [place] [address] August, [facility] [place] [facility] [address] [id number] [place] [address] August, [facility] [place] [facility] [address] [id number] [place] [address] August, [facility] [place] [facility] [address] [id number] [place] [address] Jul, [facility] [place] [facility] [address] [id number] [place] [address] Jun, [facility] [address] [id number] [place] [address] Jun, [facility] [place] [facility] [address] [id number] [place] [address] Jun, [facility] [address] [id number] [place] [address] May, [facility] [place] [facility] [address] [id number] [place] [address] May, [facility] [address] [id number] [place] [address] May, [facility] [place] [facility] [address] [id number] [place] [address] May, [facility] [address] [id number] [place] [address] Apr, [facility] [address] [id number] [place] [address] Apr, [facility] [address] [id number] [place] [address] Apr, [facility] [address] [id number] [place] [address] Apr, [facility] [address] [id number] [place] [address] Apr, [facility] [address] [id number] [place] [address] Mar, [facility] [place] [facility] [address] [id number] [place] [address] Mar, [facility] [place] [facility] [address] [id number] [place] [address] Mar, [facility] [place] [facility] [address] [id number] [place] [address] Mar, [facility] [place] [facility] [address] [id number] [place] [address] Mar, [facility] [place] [facility] [address] [id number] [place] [address] Mar, [facility] [place] [facility] [address] [id number] [place] [address] Mar, [facility] [place] [facility] [address] [id number] [place] [address] Feb, [facility] [place] [facility] [address] [id number] [place] [address] Feb, [facility] [place] [facility] [address] [id number] [place] [address] Feb, [facility] [place] [facility] [address] [id number] [place] [address] Feb, [facility] [place] [facility] [address] [id number] [place] [address] Feb, [facility] [place] [facility] [address] [id number] [place] [address] Feb, [facility] [place] [facility] [address] [id number] [place] [address] Feb, [facility] [place] [facility] [address] [id number] [place] [address] Feb, [facility] [place] [facility] [address] [id number], [place] [address] Jan, [facility] [place] [facility] [address] [id number] [place] [address] Jan, [facility] [place] [facility] [address] [id number] [place] [address] Jan, [facility] [place] [facility] [address] [id number] [place] [address] Jan, [facility] [place] [facility] [address] [id number], [place] [address] 27 Dec, 2011 [facility] [place] [facility] [address] [id number] [place] [address] 25 Dec, 2011 [facility] [place] [facility] [address] [id number] [place] [address] 18 Dec, 2011 [facility] [place] [facility] [address] [id number] [place] [address] 13 Dec, 2011 [facility] [place] [facility] [address] [id number] [place] [address] 11 Dec, 2011 [facility] [place] [facility] [address] [id number] [place] [address] 19 Oct, 2011 [facility] [place] [facility] [address] [id number] [place] [address] Oct, [facility] [place] [facility] [address] [id number] [place] [address] Sep, [facility] [place] [facility] [address] [id number] [place] [address] Sep, [facility] [place] [facility] [address] [id number] [place] [address] August, [facility] [place] [facility] [address] [id number] [place] [address] August, [facility] [place] [facility] [address] [id number] [place] [address] Jul, [facility] [place] [facility] [address] [id number] [place] [address] Jun, [facility] [place] [facility] [address] [id number] [place] [address] Jun, [facility] [place] [facility] [address] [id number] [place] [address] Jun, [facility] [place] [facility] [address] [id number] [place] [address] 19 Jun, 2011 [facility] [place] [facility] [address] [id number] [place] [address] Jun, [facility] [address] [id number] [place] [address] 24 May, 2011 [facility] [place] [facility] [address] [id number] [place] [address] May, [facility] [address] [id number] [place] [address] 20 May, 2011 [facility] [place] [facility] [address] [id number] [place] [address] 14 May, 2011 [facility] [place] [facility] [address] [id number] [place] [address] 13 May, 2011 [facility] [address] [facility] [id number] [place] [address] May, [facility] [address] [facility] [id number] [place] [address] May, [facility] [address] [id number] [place] [address] May, [facility] [address] [facility] [id number] [place] [address] Apr, [facility] [address] [facility] [id number] [place] [address] Mar, [facility] [address] [id number] [place] [address] Mar, [facility] [place] [place] [facility] [address] [id number] [place] [address] Mar, [facility] [place] [facility] [address] [id number] [place] [address] 15 Mar, 2011 [facility] [place] [facility] [address] [id number] [place] [address] Mar, [facility] [place] [place] [facility] [address] [id number], [place] [address] Jan, [facility] [address] [facility] [id number], [place] [address] Jan, [facility] [address] [facility] [id number], [place] [address] Jan, [facility] [address] [id number], [place] [address] August, [facility] [address] [id number], [place] [address] Mar, [facility] [address] [id number], [place] [address] Feb, [facility] [address] [id number], [place] [address] 14 Jan, 2010 [facility] [address] [id number], [place] [address] Jan, IMMUNIZATIONS No Known Immunizations SOCIAL HISTORY Never Assessed [facility]AN OF CARE VITAL SIGNS MEDICATIONS Unknown [...]
--- OUTSIDE RECORDS SUMMARY | 2018-09-17 23:22 | XMS REPORT ---
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 Name Role Phone KATIE HUDSON Unavailable PROBLEMS Type Condition ICD9-CM Code FII82-XT Code Onset Dates Condition Status SNOMED Code Problem CAD (coronary artery disease) I25.10 Active 33572514 Problem Essential hypertension I10 Active 75051480 Problem Osteoarthritis of knees, bilateral M17.0 Active 587893610 Problem Arthritis M19.90 Active 5809432 Problem Diabetes E11.9 Active 66592263 Problem Hyperlipemia E78.5 Active 44402274 Problem Morbid obesity E66.01 Active 541459388 ALLERGIES No Information ENCOUNTERS Encounter Location Date Diagnosis [facility] [id number] [place] [address] Dec, [facility] [id number] [place] [address] Dec, [facility] [id number] [place] [address] Dec, Diabetes E11.9 ; Essential hypertension I10 ; Arthritis M19.90 ; Urinary frequency R35.0 ; Routine adult health maintenance Z00.00 and BMI 45.0- 49.9, adult Z68.42 [facility] [id number] [place] [address] Dec, [facility] [address] [address] Dec, [facility] [id number] [place] [address] Oct, [facility] [id number] [place] [address] Sep, Diabetes E11.9 [facility] [id number] [place] [address] Sep, Diabetes E11.9 ; Hyperlipemia E78.5 ; CAD (coronary artery disease) I25.10 ; Essential hypertension I10 and BMI 45.0-49.9, adult Z68.42 [facility] [id number] [place] [address] Sep, [facility] [id number] [place] [address] August, [facility] [address] [address] Jan, Dysuria R30.0 [facility] [facility] [id number] [place] [address] Jan, Dysuria R30.0 [facility] [facility] [id number] [place] [address] Jan, Osteoarthritis of knees, bilateral M17.0 [facility] [facility] [id number] [place] [address] Nov, Dysuria R30.0 [facility] [id number] [place] [address] Oct, Blood in urine R31.9 ; Dysuria R30.0 ; Pharyngeal dysphagia R13.13 ; Acute cystitis with hematuria N30.01 ; CAD (coronary artery disease) I25.10 and Diabetes E11.9 [facility] [id number] [place] [address] Oct, [facility] [id number] [place] [address] Sep, Arthritis M19.90 ; Blood in urine R31.9 ; Diabetes E11.9 ; Acute cystitis with hematuria N30.01 and Pharyngoesophageal dysphagia R13.14 [facility] [address] [place] [address] 29 Sep, 2016 Osteoarthritis of knees, bilateral M17.0 [facility] [id number] [place] [address] 19 Sep, 2016 Osteoarthritis of knees, bilateral M17.0 [facility] [id number] [place] [address] August, Arthritis M19.90 [facility] [id number] [place] [address] Jul, Arthritis M19.90 [facility] [id number] [place] [address] Jun, Arthritis M19.90 [facility] [id number] [place] [address] Jun, [facility] [id number] [place] [address] Jun, [facility] [id number] [place] [address] May, Diabetes E11.9 ; Dysuria R30.0 and Arthritis M19.90 [facility] [id number] [place] [address] Apr, [facility] [id number] [place] [address] Apr, Arthritis M19.90 [facility] [id number] [place] [address] Mar, Arthritis M19.90 [facility] [id number] [place] [address] Feb, [facility] [id number] [place] [address] Jan, [facility] [id number] [place] [address] 29 Dec, 2015 Diabetes E11.9 and Arthritis M19.90 [facility] [address] [address] Dec, [facility] [id number] [place] [address] Nov, Arthritis M19.90 [facility] [address] [address] Nov, [facility] [id number] [place] [address] Oct, Arthritis M19.90 [facility] [id number] [place] [address] Sep, Osteoarthritis of knees, bilateral M17.0 [facility] [id number] [place] [address] Sep, Osteoarthritis of knees, bilateral M17.0 [facility] [id number] [place] [address] August, Arthritis M19.90 [facility] [id number] [place] [address] August, [facility] [id number] [place] [address] Jul, Hyperlipemia E78.5 [facility] [id number] [place] [address] Jul, Encounter for well woman exam Z01.419 ; Morbid obesity E66.01 ; Encounter for screening for malignant neoplasm of cervix Z12.4 and Encounter for screening mammogram for breast cancer Z12.31 [facility] [place] [id number] [place] [address] Jul, Arthritis M19.90 ; Diabetes E11.9 ; Blood in urine R31.9 and UTI (urinary tract infection) N39.0 [facility] [address] [address] Jul, [facility] [id number] [place] [address] Jun, Arthritis M19.90 [facility] [id number] [place] [address] May, Arthritis M19.90 [facility] [id number] [place] [address] May, [facility] [id number] [place] [address] Apr, [facility] [id number] [place] [address] Apr, Arthritis M19.90 ; Diabetes E11.9 and Morbid obesity E66.01 [facility] [id number] [place] [address] Apr, [facility] [id number] [place] [address] Apr, Dyspareunia N94.1 [facility] [id number] [place] [address] Apr, [facility] [id number] [place] [address] Apr, [facility] [id number] [place] [address] Apr, Osteoarthritis of knees, bilateral M17.0 [facility] [id number] [place] [address] Apr, Diabetes E11.9 and CAD (coronary artery disease) I25.10 [facility] [id number] [place] [address] 08 Mar, 2015 [facility] [id number] [place] [address] 10 Feb, 2015 [facility] [id number] [place] [address] Jan, [facility] [address] [id number] [address] Jan, [facility] [address] [facility] [id number], [place] [address] Jan, [facility] [address] [facility] [id number][place] [address] Jan, Osteoarthritis of knees, bilateral M17.0 [facility] [address] [id number], [place] [address] 30 Dec, 2014 [facility] [address] [facility] [id number] [place] [address] Dec, [facility] [address] [facility] [id number], [place] [address] Dec, [facility] [id number] [address] 08 Dec, 2014 Diabetes mellitus 250.00 and UTI (urinary tract infection) 599.0 [facility] [address] [facility] [id number], [place] [address] Dec, [facility] [address] [facility] [id number], [place] [address] Nov, [facility] [address] [facility] [id number][place] [address] Oct, [facility] [address] [facility] [id number], [place] [address] Oct, [facility] [address] [facility] [id number], [place] [address] Oct, [facility] [address] [facility] [id number], [place] [address] Oct, [facility] [address] [facility] [id number], [place] [address] Oct, [facility] [address] [facility] [id number], [place] [address] Sep, [facility] [place] [facility] [address] [id number] [place] [address] August, [facility] [place] [facility] [address] [id number] [place] [address] August, [facility] [place] [facility] [address] [id number] [place] [address] August, [facility] [place] [facility] [address] [id number] [place] [address] Jul, [facility] [place] [facility] [address] [id number] [place] [address] Jul, [facility] [place] [facility] [address] [id number] [place] [address] Jul, [facility] [place] [facility] [address] [id number] [place] [address] Jun, [facility] [place] [facility] [address] [id number] [place] [address] Jun, [facility] [place] [facility] [address] [id number] [place] [address] Jun, [facility] [place] [facility] [address] [facility] [id number] [place] [address] Jun, [facility] [place] [facility] [address] [id number] [place] [address] Jun, [facility] [place] [facility] [address] [id number] [place] [address] Jun, [facility] [place] [facility] [address] [id number] [place] [address] Jun, [facility] [place] [facility] [address] [facility] [id number] [place] [address] Jun, [facility] [place] [facility] [address] [facility] [id number] [place] [address] May, [facility] [place] [facility] [address] [id number] [place] [address] May, 2014 [facility] [place] [facility] [address] [id number] [place] [address] May, 2014 [facility] [place] [facility] [address] [id number] [place] [address] May, 2014 [facility] [place] [facility] [address] [id number] [place] [address] May, 2014 [facility] [place] [facility] [address] [id number] [place] [address] May, 2014 [facility] [place] [facility] [address] [id number] [place] [address] May, 2014 [facility] [place] [facility] [address] [facility] [id number] [place] [address] May, 2014 [facility] [place] [facility] [address] [id number] [place] [address] May, 2014 [facility] [place] [facility] [address] [id number] [place] [address] May, 2014 [facility] [place] [facility] [address] [facility] [id number] [place] [address] May, [facility] [place] [facility] [address] [facility] [id number], [place] [address] May, [facility] [place] [facility] [address] [id number], [place] [address] Apr, [facility] [place] [facility] [address] [id number] [place] [address] Apr, [facility] [place] [facility] [address] [id number], [place] [address] Mar, [facility] [place] [facility] [address] [facility] [id number] [place] [address] Mar, [facility] [place] [facility] [address] [id number] [place] [address] 17 Mar, 2014 [facility] [place] [facility] [address] [id number] [place] [address] 17 Mar, 2014 [facility] [place] [facility] [address] [id number] [place] [address] 17 Mar, 2014 [facility] [place] [facility] [address] [id number] [place] [address] 16 Mar, 2014 [facility] [place] [facility] [address] [id number] [place] [address] Feb, [facility] [place] [facility] [address] [id number] [place] [address] Feb, [facility] [place] [facility] [address] [id number] [place] [address] Feb, [facility] [place] [facility] [address] [id number] [place] [address] 24 Feb, 2014 [facility] [place] [facility] [address] [id number] [place] [address] Feb, [facility] [place] [facility] [address] [id number] [place] [address] Feb, [facility] [place] [facility] [address] [facility] [id number] [place] [address] Feb, [facility] [place] [facility] [address] [id number] [place] [address] 18 Feb, 2014 [facility] [place] [facility] [address] [id number], [place] [address] Feb, [facility] [place] [facility] [address] [id number] [place] [address] Jan, [facility] [place] [facility] [address] [id number] [place] [address] Jan, [facility] [place] [facility] [address] [id number], [place] [address] Jan, [facility] [place] [facility] [address] [id number] [place] [address] Jan, [facility] [place] [facility] [address] [id number] [place] [address] Jan, [facility] [place] [facility] [address] [id number] [place] [address] Jan, [facility] [place] [facility] [address] [id number] [place] [address] Jan, [facility] [place] [facility] [address] [id number] [place] [address] Jan, [facility] [place] [facility] [address] [id number] [place] [address] Jan, [facility] [place] [facility] [address] [id number] [place] [address] Jan, [facility] [place] [facility] [address] [id number] [place] [address] Dec, [facility] [place] [facility] [address] [id number] [place] [address] Dec, [facility] [place] [facility] [address] [id number] [place] [address] Dec, [facility] [place] [facility] [address] [id number] [place] [address] Dec, [facility] [place] [facility] [address] [id number] [place] [address] Nov, [facility] [place] [facility] [address] [id number] [place] [address] Nov, [facility] [place] [facility] [address] [id number] [place] [address] Nov, [facility] [place] [facility] [address] [id number] [place] [address] Nov, [facility] [place] [facility] [address] [id number] [place] [address] Nov, [facility] [place] [facility] [address] [id number] [place] [address] Nov, [facility] [place] [facility] [address] [id number] [place] [address] Nov, [facility] [place] [facility] [address] [id number] [place] [address] Nov, [facility] [place] [facility] [address] [id number] [place] [address] Nov, [facility] [place] [facility] [address] [id number] [place] [address] Oct, [facility] [place] [facility] [address] [id number] [place] [address] Oct, [facility] [place] [facility] [address] [id number] [place] [address] Sep, [facility] [place] [facility] [address] [id number] [place] [address] Sep, [facility] [place] [facility] [address] [id number] [place] [address] Sep, [facility] [place] [facility] [address] [id number] [place] [address] Sep, [facility] [place] [facility] [address] [id number] [place] [address] Sep, [facility] [place] [facility] [address] [id number] [place] [address] Sep, [facility] [place] [facility] [address] [id number] [place] [address] Sep, [facility] [place] [facility] [address] [id number] [place] [address] Sep, [facility] [place] [facility] [address] [id number] [place] [address] Sep, [facility] [place] [facility] [address] [id number] [place] [address] Sep, [facility] [place] [facility] [address] [id number] [place] [address] Sep, [facility] [place] [facility] [address] [id number] [place] [address] Sep, [facility] [place] [facility] [address] [id number] [place] [address] Sep, [facility] [place] [facility] [address] [id number] [place] [address] Sep, [facility] [place] [facility] [address] [id number] [place] [address] August, [facility] [place] [facility] [address] [id number] [place] [address] August, [facility] [place] [facility] [address] [id number] [place] [address] August, [facility] [place] [facility] [address] [id number] [place] [address] August, [facility] [place] [facility] [address] [id number] [place] [address] Jul, [facility] [place] [facility] [address] [id number] [place] [address] Jul, [facility] [place] [facility] [address] [id number] [place] [address] Jul, [facility] [place] [facility] [address] [id number] [place] [address] Jul, [facility] [place] [facility] [address] [id number] [place] [address] Jun, [facility] [place] [facility] [address] [id number] [place] [address] Jun, [facility] [place] [facility] [address] [id number] [place] [address] May, [facility] [place] [facility] [address] [id number] [place] [address] May, [facility] [place] [facility] [address] [id number] [place] [address] May, [facility] [place] [facility] [address] [id number] [place] [address] May, [facility] [place] [facility] [address] [id number] [place] [address] May, [facility] [place] [facility] [address] [id number] [place] [address] May, [facility] [place] [facility] [address] [id number] [place] [address] May, [facility] [place] [facility] [address] [id number] [place] [address] May, [facility] [place] [facility] [address] [id number] [place] [address] May, [facility] [place] [facility] [address] [id number] [place] [address] Apr, [facility] [place] [facility] [address] [id number] [place] [address] Apr, [facility] [place] [facility] [address] [id number] [place] [address] Apr, [facility] [place] [facility] [address] [id number] [place] [address] Apr, [facility] [place] [facility] [address] [id number] [place] [address] Apr, [facility] [place] [facility] [address] [id number] [place] [address] Mar, [facility] [place] [facility] [address] [id number] [place] [address] Mar, [facility] [place] [facility] [address] [id number] [place] [address] Feb, [facility] [address] [id number] [place] [address] Feb, [facility] [place] [facility] [address] [id number] [place] [address] Feb, [facility] [address] [id number] [place] [address] Feb, [facility] [place] [facility] [address] [id number] [place] [address] Feb, [facility] [address] [id number] [place] [address] Feb, [facility] [address] [id number] [place] [address] Feb, [facility] [place] [facility] [address] [id number] [place] [address] Feb, [facility] [address] [id number] [place] [address] Feb, [facility] [place] [facility] [address] [id number] [place] [address] Jan, [facility] [address] [id number] [place] [address] Jan, [facility] [place] [facility] [address] [id number] [place] [address] Jan, [facility] [place] [facility] [address] [id number] [place] [address] Jan, [facility] [place] [facility] [address] [id number] [place] [address] Jan, [facility] [place] [facility] [address] [id number] [place] [address] Dec, [facility] [place] [facility] [address] [id number] [place] [address] Dec, [facility] [address] [id number] [place] [address] Nov, [facility] [place] [facility] [address] [id number] [place] [address] Nov, [facility] [place] [facility] [address] [id number] [place] [address] Oct, [facility] [place] [facility] [address] [id number] [place] [address] Oct, [facility] [place] [facility] [address] [id number] [place] [address] Oct, [facility] [place] [facility] [address] [id number] [place] [address] Sep, [facility] [place] [facility] [address] [id number] [place] [address] Sep, [facility] [place] [facility] [address] [id number] [place] [address] Sep, [facility] [place] [facility] [address] [id number] [place] [address] August, [facility] [place] [facility] [address] [id number] [place] [address] August, [facility] [place] [facility] [address] [id number] [place] [address] August, [facility] [place] [facility] [address] [id number] [place] [address] August, [facility] [place] [facility] [address] [id number] [place] [address] Jul, [facility] [place] [facility] [address] [id number] [place] [address] Jun, [facility] [place] [facility] [address] [id number] [place] [address] Jun, [facility] [place] [facility] [address] [id number] [place] [address] Jun, [facility] [address] [id number] [place] [address] May, [facility] [address] [id number] [place] [address] May, [facility] [address] [id number] [place] [address] May, [facility] [place] [facility] [address] [id number] [place] [address] May, [facility] [address] [id number] [place] [address] Apr, [facility] [address] [id number] [place] [address] Apr, [facility] [address] [id number] [place] [address] Apr, [facility] [address] [id number] [place] [address] Apr, [facility] [address] [id number] [place] [address] Apr, [facility] [address] [id number] [place] [address] Mar, [facility] [address] [id number] [place] [address] Mar, [facility] [facility] [address] [id number] [place] [address] Mar, [facility] [place] [facility] [address] [id number] [place] [address] Mar, [facility] [place] [facility] [address] [id number] [place] [address] Mar, [facility] [address] [id number] [place] [address] Mar, [facility] [place] [facility] [address] [id number] [place] [address] Mar, [facility] [place] [facility] [address] [id number] [place] [address] Feb, [facility] [place] [facility] [address] [id number] [place] [address] Feb, [facility] [place] [facility] [address] [id number] [place] [place] [address], [place] [address] Feb, [facility] [place] [facility] [address] [id number] [place] [address] Feb, [facility] [place] [facility] [address] [id number] [place] [address] Feb, [facility] [place] [facility] [address] [facility] [id number] [place] [address] Feb, [facility] [place] [facility] [address] [id number] [place] [address] Feb, [facility] [place] [facility] [address] [id number] [place] [address] Feb, [facility] [place] [facility] [address] [id number] [place] [address] Jan, [facility] [place] [facility] [address] [id number] [place] [address] Jan, [facility] [place] [facility] [address] [id number] [address] Jan, [facility] [place] [facility] [address] [id number] [place] [address] Jan, [facility] [place] [facility] [address] [id number] [place] [address] Dec, [facility] [place] [facility] [address] [id number] [place] [address] Dec, [facility] [place] [facility] [address] [id number], [place] [address] 18 Dec, 2011 [facility] [place] [facility] [address] [id number] [place] [address] 13 Dec, 2011 [facility] [place] [facility] [address] [id number] [place] [address] 11 Dec, 2011 [facility] [place] [facility] [address] [id number] [place] [address] Oct, [facility] [place] [facility] [address] [id number] [place] [address] Oct, [facility] [place] [facility] [address] [id number] [place] [address] Sep, [facility] [place] [facility] [address] [id number] [place] [address] Sep, [facility] [place] [facility] [address] [id number] [place] [address] August, [facility] [place] [facility] [address] [id number] [place] [address] August, [facility] [place] [facility] [address] [id number] [place] [address] Jul, [facility] [place] [facility] [address] [id number] [place] [address] Jun, [facility] [place] [facility] [address] [id number] [place] [address] Jun, [facility] [place] [facility] [address] [id number] [place] [address] Jun, [facility] [place] [facility] [address] [id number] [place] [address] Jun, [facility] [place] [facility] [address] [id number] [place] [address] Jun, [facility] [place] [facility] [address] [id number] [place] [address] 24 May, 2011 [facility] [place] [facility] [address] [id number] [place] [address] 22 May, 2011 [facility] [place] [facility] [address] [id number] [place] [address] 20 May, 2011 [facility] [place] [facility] [address] [id number] [place] [address] 14 May, 2011 [facility] [place] [facility] [address] [id number] [place] [address] 13 May, 2011 [facility] [place] [facility] [address] [id number] [place] [address] 03 May, 2011 [facility] [place] [facility] [address] [id number] [place] [address] 02 May, 2011 [facility] [place] [facility] [address] [id number] [place] [address] May, [facility] [place] [facility] [address] [facility] [id number] [place] [address] Apr, [facility] [place] [facility] [address] [id number] [place] [address] Mar, [facility] [place] [facility] [address] [id number] [place] [address] Mar, [facility] [place] [facility] [address] [id number] [place] [address] Mar, [facility] [place] [facility] [address] [id number], [place] [address] 15 Mar, 2011 [facility] [place] [facility] [address] [id number] [place] [address] Mar, [facility] [place] [facility] [address] [id number] [place] [address] 17 Jan, 2011 [facility] [place] [facility] [address] [id number] [place] [address] 11 Jan, 2011 [facility] [place] [facility] [address] [id number] [place] [address] Jan, [facility] [address] [facility] [id number], [place] [address] August, [facility] [address] [id number] [address] Mar, [facility] [address] [id number] [address] Feb, [facility] [address] [id number] [address] 14 Jan, 2010 [facility] [address] [facility] [id number], [place] [address] Jan, IMMUNIZATIONS No Known Immunizations SOCIAL HISTORY Never Assessed REASON FOR VISIT request call PLAN OF CARE VITAL SIGNS MEDICATIONS Unknown [...]
--- OUTSIDE RECORDS SUMMARY | 2018-09-17 23:23 | XMS REPORT ---
Author Author KATIE HUDSON Organization [facility] Address [address] [place] [address] Care Team Providers Care Director Women Name Role Phone KATIE HUDSON Unavailable PROBLEMS Type Condition ICD9-CM Code [id number] Code Onset Dates Condition Status SNOMED Code Problem CAD (coronary artery disease) I25.10 Active 32738609 Problem Essential hypertension I10 Active 52998614 Problem Osteoarthritis of knees, bilateral M17.0 Active 899728676 Problem Arthritis M19.90 Active 7858135 Problem Diabetes E11.9 Active 07433142 Problem Hyperlipemia E78.5 Active 24634861 Problem Morbid obesity E66.01 Active [id number] ALLERGIES Substance Reaction Event Type Date Status contrast hives Non Drug Allergy Dec, Active ENCOUNTERS Encounter Location Date Diagnosis [facility] [id number] [place] [address] Dec, [facility] [id number] [place] [address] Dec, [facility] [id number] [place] [address] Dec, Diabetes E11.9 ; Essential hypertension I10 ; Arthritis M19.90 ; Urinary frequency R35.0 ; Routine adult health maintenance Z00.00 and BMI 45.0- 49.9, adult Z68.42 [facility] [id number] [address] Dec, [facility] [id number] [place] [address] Dec, [facility] [id number] [place] [address] Oct, [facility] [address] [place] [address] Sep, Diabetes E11.9 [place] [address] [address] Sep, Diabetes E11.9 ; Hyperlipemia E78.5 ; CAD (coronary artery disease) I25.10 ; Essential hypertension I10 and BMI 45.0-49.9, adult Z68.42 [place] [address] [address] Sep, [place] [id number] [place] [address] August, [place] [address] [address] Jan, Dysuria R30.0 [place] [address] [address] Jan, Dysuria R30.0 [place] [address] [address] Jan, Osteoarthritis of knees, bilateral M17.0 [place] [id number] [place] [address] Nov, Dysuria R30.0 [place] [id number] [place] [address] Oct, Blood in urine R31.9 ; Dysuria R30.0 ; Pharyngeal dysphagia R13.13 ; Acute cystitis with hematuria N30.01 ; CAD (coronary artery disease) I25.10 and Diabetes E11.9 [place] [id number] [place] [address] Oct, [place] [id number] [place] [address] Sep, Arthritis M19.90 ; Blood in urine R31.9 ; Diabetes E11.9 ; Acute cystitis with hematuria N30.01 and Pharyngoesophageal dysphagia R13.14 [facility] [id number] [address] 29 Sep, 2016 Osteoarthritis of knees, bilateral M17.0 [facility] [id number] [place] [address] Sep, Osteoarthritis of knees, bilateral M17.0 [facility] [id number] [place] [address] August, Arthritis M19.90 [facility] [id number] [place] [address] Jul, Arthritis M19.90 [facility] [id number] [place] [address] Jun, Arthritis M19.90 [facility] [id number] [place] [address] Jun, [facility] [id number] [place] [address] Jun, [facility] [id number] [place] [address] May, Diabetes E11.9 ; Dysuria R30.0 and Arthritis M19.90 [facility] [id number] [place] [address] Apr, [facility] [id number] [place] [address] Apr, Arthritis M19.90 [facility] [id number] [place] [address] Mar, Arthritis M19.90 [facility] [id number] [place] [address] Feb, [facility] [id number] [place] [address] Jan, [facility] [id number] [place] [address] Dec, Diabetes E11.9 and Arthritis M19.90 [facility] [id number] [place] [address] Dec, [facility] [id number] [place] [address] Nov, Arthritis M19.90 [facility] [id number] [place] [address] Nov, [facility] [id number] [place] [address] Oct, Arthritis M19.90 [place] [id number] [place] [address] Sep, Osteoarthritis of knees, bilateral M17.0 [place] [id number] [place] [address] Sep, Osteoarthritis of knees, bilateral M17.0 [facility] [id number] [place] [address] August, Arthritis M19.90 [place] [id number] [place] [address] August, [place] [id number] [place] [address] Jul, Hyperlipemia E78.5 [place] [address] [place] [address] Jul, Encounter for well woman exam Z01.419 ; Morbid obesity E66.01 ; Encounter for screening for malignant neoplasm of cervix Z12.4 and Encounter for screening mammogram for breast cancer Z12.31 [place] [address] [place] [address] Jul, Arthritis M19.90 ; Diabetes E11.9 ; Blood in urine R31.9 and UTI (urinary tract infection) N39.0 [place] [address] [address] 05 Jul, 2015 [facility] [address] [address] Jun, Arthritis M19.90 [facility] [id number] [place] [address] May, Arthritis M19.90 [facility] [id number] [place] [address] May, [facility] [id number] [place] [address] Apr, [facility] [id number] [place] [address] Apr, Arthritis M19.90 ; Diabetes E11.9 and Morbid obesity E66.01 [facility] [id number] [place] [address] Apr, [facility] [id number] [place] [address] Apr, Dyspareunia N94.1 [facility] [id number] [place] [address] Apr, [facility] [address], [place] [address] Apr, [facility] [id number] [place] [address] Apr, Osteoarthritis of knees, bilateral M17.0 [facility] [address], [place] [address] Apr, Diabetes E11.9 and CAD (coronary artery disease) I25.10 [facility] [address] [address] 08 Mar, 2015 [facility] [address], [place] [address] Feb, [facility] [address] [facility] [id number], [place] [address] Jan, [facility] [address] [facility] [id number], [place] [address] Jan, [facility] [address] [facility] [id number] [place] [address] Jan, [facility] [id number] [place] [address] Jan, Osteoarthritis of knees, bilateral M17.0 [facility] [address] [id number] [place] [address] Dec, [facility] [id number] [address] Dec, [facility] [address], [place] [address] Dec, [facility] [address], [place] [address] 08 Dec, 2014 Diabetes mellitus 250.00 and UTI (urinary tract infection) 599.0 [facility] [address], [place] [address] Dec, [facility] [id number] [address] Nov, [facility] [address], [place] [address] Oct, [facility] [address] [facility] [id number], [place] [address] Oct, [facility] [id number], [place] [address] Oct, [facility] [address] [facility] [id number], [place] [address] Oct, [facility] [id number], [place] [address] Oct, [facility] [place] [facility] [address] [id number] [place] [address] Sep, [facility] [place] [facility] [address] [id number] [place] [address] August, [facility] [place] [facility] [address] [id number] [place] [address] August, [facility] [place] [facility] [address] [id number] [place] [address] August, [facility] [place] [facility] [address] [id number] [place] [address] Jul, [facility] [place] [facility] [address] [id number] [place] [address] Jul, [facility] [place] [facility] [address] [id number] [place] [address] Jul, [facility] [place] [facility] [address] [id number] [place] [address] Jun, [facility] [place] [facility] [address] [id number] [place] [address] 24 Jun, 2014 [facility] [place] [facility] [address] [id number] [place] [address] 24 Jun, 2014 [facility] [place] [facility] [address] [id number] [place] [address] 24 Jun, 2014 [facility] [place] [facility] [address] [id number] [place] [address] 24 Jun, 2014 [facility] [place] [facility] [address] [id number] [place] [address] Jun, [facility] [place] [facility] [address] [id number] [place] [address] 16 Jun, 2014 [facility] [place] [facility] [address] [id number] [place] [address] Jun, [facility] [place] [facility] [address] [id number] [place] [address] May, 2014 [facility] [place] [facility] [address] [id number] [place] [address] May, 2014 [facility] [place] [facility] [address] [id number] [place] [address] May, 2014 [facility] [place] [facility] [address] [facility] [id number] [place] [address] May, 2014 [facility] [place] [facility] [address] [id number] [place] [address] May, 2014 [facility] [place] [facility] [address] [id number] [place] [address] May, 2014 [facility] [place] [facility] [address] [facility] [id number] [place] [address] May, 2014 [facility] [place] [facility] [address] [facility] [id number] [place] [address] May, 2014 [facility] [place] [facility] [address] [facility] [id number] [place] [address] May, [facility] [place] [facility] [address] [facility] [id number] [place] [address] May, 2014 [facility] [place] [facility] [address] [facility] [id number] [place] [address] May, [facility] [place] [facility] [address] [facility] [id number] [place] [address] May, [facility] [place] [facility] [address] [facility] [id number], [place] [address] Apr, [facility] [place] [facility] [address] [facility] [id number] [place] [address] Apr, [facility] [place] [facility] [address] [facility] [id number] [place] [address] Mar, [facility] [place] [facility] [address] [facility] [id number] [place] [address] Mar, [facility] [place] [facility] [address] [id number] [place] [address] Mar, [facility] [place] [facility] [address] [id number] [place] [address] Mar, [facility] [place] [facility] [address] [id number] [place] [address] Mar, [facility] [place] [facility] [address] [id number] [place] [address] Mar, [facility] [place] [facility] [address] [id number] [place] [address] Feb, [facility] [place] [facility] [address] [id number] [place] [address] Feb, [facility] [place] [facility] [address] [id number] [place] [address] Feb, [facility] [place] [facility] [address] [id number] [place] [address] Feb, [facility] [place] [facility] [address] [id number] [place] [address] Feb, [facility] [place] [facility] [address] [id number], [place] [address] Feb, [facility] [place] [facility] [address] [id number], [place] [address] Feb, [facility] [place] [facility] [address] [id number], [place] [address] 18 Feb, 2014 [facility] [place] [facility] [address] [id number], [place] [address] Feb, [facility] [place] [facility] [address] [id number], [place] [address] Jan, [facility] [place] [facility] [address] [id number], [place] [address] Jan, [facility] [place] [facility] [address] [id number], [place] [address] Jan, [facility] [place] [facility] [address] [id number] [place] [address] Jan, [facility] [place] [facility] [address] [id number] [place] [address] Jan, [facility] [place] [facility] [address] [id number] [place] [address] Jan, [facility] [place] [facility] [address] [id number] [place] [address] Jan, [facility] [place] [facility] [address] [id number] [place] [address] Jan, [facility] [place] [facility] [address] [id number] [place] [address] Jan, [facility] [place] [facility] [address] [id number] [place] [address] Jan, [facility] [place] [facility] [address] [id number] [place] [address] Dec, [facility] [place] [facility] [address] [id number] [place] [address] Dec, [facility] [place] [facility] [address] [id number] [place] [address] Dec, [facility] [place] [facility] [address] [id number] [place] [address] Dec, [facility] [place] [facility] [address] [id number] [place] [address] Nov, [facility] [place] [facility] [address] [id number] [place] [address] Nov, [facility] [place] [facility] [address] [id number] [place] [address] Nov, [facility] [place] [facility] [address] [id number] [place] [address] Nov, [facility] [place] [facility] [address] [id number] [place] [address] Nov, [facility] [place] [facility] [address] [id number] [place] [address] Nov, [facility] [place] [facility] [address] [id number] [place] [address] Nov, [facility] [place] [facility] [address] [id number] [place] [address] Nov, [facility] [place] [facility] [address] [id number] [place] [address] Nov, [facility] [place] [facility] [address] [id number] [place] [address] Oct, [facility] [place] [facility] [address] [id number] [place] [address] Oct, [facility] [place] [facility] [address] [id number] [place] [address] Sep, [facility] [place] [facility] [address] [id number] [place] [address] Sep, [facility] [place] [facility] [address] [id number] [place] [address] Sep, [facility] [place] [facility] [address] [id number] [place] [address] Sep, [facility] [place] [facility] [address] [id number] [place] [address] Sep, [facility] [place] [facility] [address] [id number] [place] [address] Sep, [facility] [place] [facility] [address] [id number] [place] [address] Sep, [facility] [place] [facility] [address] [id number] [place] [address] Sep, [facility] [place] [facility] [address] [id number] [place] [address] Sep, [facility] [place] [facility] [address] [id number] [place] [address] Sep, [facility] [place] [facility] [address] [id number] [place] [address] Sep, [facility] [place] [facility] [address] [id number] [place] [address] Sep, [facility] [place] [facility] [address] [id number] [place] [address] Sep, [facility] [place] [facility] [address] [id number] [place] [address] Sep, [facility] [place] [facility] [address] [id number] [place] [address] August, [facility] [place] [facility] [address] [id number] [place] [address] August, [facility] [place] [facility] [address] [id number] [place] [address] August, [facility] [place] [facility] [address] [id number] [place] [address] August, [facility] [place] [facility] [address] [id number] [place] [address] Jul, [facility] [place] [facility] [address] [id number] [place] [address] Jul, [facility] [place] [facility] [address] [id number], [place] [address] Jul, [facility] [place] [facility] [address] [id number] [place] [address] Jul, [facility] [place] [facility] [address] [id number] [place] [address] Jun, [facility] [place] [facility] [address] [id number] [place] [address] Jun, [facility] [place] [facility] [address] [id number] [place] [address] May, [facility] [place] [facility] [address] [id number] [place] [address] May, [facility] [place] [facility] [address] [id number] [place] [address] May, [facility] [place] [facility] [address] [id number] [place] [address] May, [facility] [place] [facility] [address] [id number] [place] [address] May, [facility] [place] [facility] [address] [id number] [place] [address] May, [facility] [place] [facility] [address] [id number] [place] [address] May, [facility] [place] [facility] [address] [id number] [place] [address] May, [facility] [place] [facility] [address] [id number] [place] [address] May, [facility] [place] [facility] [address] [id number] [place] [address] Apr, [facility] [place] [facility] [address] [id number] [place] [address] Apr, [facility] [place] [facility] [address] [id number] [place] [address] Apr, [facility] [place] [facility] [address] [id number] [place] [address] Apr, [facility] [place] [facility] [address] [id number] [place] [address] Apr, [facility] [place] [facility] [address] [id number] [place] [address] Mar, [facility] [place] [facility] [address] [id number] [place] [address] Mar, [facility] [place] [facility] [address] [id number] [place] [address] Feb, [facility] [place] [facility] [address] [id number] [place] [address] Feb, [facility] [place] [facility] [address] [id number] [place] [address] Feb, [facility] [place] [facility] [address] [id number] [place] [address] Feb, [facility] [place] [facility] [address] [id number] [place] [address] Feb, [facility] [place] [facility] [address] [id number] [place] [address] Feb, [facility] [place] [facility] [address] [id number] [place] [address] Feb, [facility] [place] [facility] [address] [id number], [place] [address] Feb, [facility] [place] [facility] [address] [id number], [place] [address] Feb, [facility] [place] [facility] [address] [id number], [place] [address] Jan, [facility] [place] [facility] [address] [id number], [place] [address] Jan, [facility] [place] [facility] [address] [id number], [place] [address] Jan, [facility] [place] [facility] [address] [id number], [place] [address] Jan, [facility] [place] [facility] [address] [id number], [place] [address] Jan, [facility] [place] [facility] [address] [id number], [place] [address] Dec, [facility] [place] [facility] [address] [id number] [place] [address] Dec, [facility] [address] [id number] [place] [address] Nov, [facility] [place] [facility] [address] [id number] [place] [address] Nov, [facility] [address] [id number] [place] [address] Oct, [facility] [place] [facility] [address] [id number] [place] [address] Oct, [facility] [address] [id number] [place] [address] Oct, [facility] [address] [id number] [place] [address] Sep, [facility] [address] [id number] [place] [address] Sep, [facility] [address] [id number] [place] [address] Sep, [facility] [place] [facility] [address] [id number] [place] [address] August, [facility] [address] [id number] [place] [address] August, [facility] [place] [facility] [address] [id number] [place] [address] August, [facility] [place] [facility] [address] [id number] [place] [address] August, [facility] [place] [facility] [address] [id number] [place] [address] Jul, [facility] [place] [facility] [address] [id number] [place] [address] Jun, [facility] [place] [facility] [address] [id number] [place] [address] Jun, [facility] [place] [facility] [address] [id number] [place] [address] Jun, [facility] [place] [facility] [address] [id number] [place] [address] May, [facility] [place] [facility] [address] [id number] [place] [address] May, [facility] [place] [facility] [address] [id number] [place] [address] May, [facility] [place] [facility] [address] [id number] [place] [address] May, [facility] [place] [facility] [address] [id number] [place] [address] Apr, [facility] [place] [facility] [address] [id number] [place] [address] Apr, [facility] [place] [facility] [address] [id number] [place] [address] Apr, [facility] [place] [facility] [address] [id number] [place] [address] Apr, [facility] [place] [facility] [address] [id number] [place] [address] Apr, [facility] [place] [facility] [address] [id number], [place] [address] Mar, [facility] [place] [facility] [address] [id number], [place] [address] Mar, [facility] [place] [facility] [address] [id number] [place] [address] Mar, [facility] [place] [facility] [address] [id number] [place] [address] Mar, [facility] [place] [facility] [address] [id number], [place] [address] Mar, [facility] [place] [facility] [address] [id number], [place] [address] Mar, [facility] [place] [facility] [address] [id number] [place] [address] Mar, [facility] [place] [facility] [address] [facility] [id number], [place] [address] Feb, [facility] [place] [facility] [id number] [place] [address] Feb, [facility] [place] [facility] [address] [facility] [id number] [address] Feb, [facility] [place] [facility] [id number] [place] [address], [place] [address] Feb, [facility] [place] [facility] [address] [facility] [id number] [place] [address] Feb, [facility] [place] [facility] [id number] [place] [address] Feb, [facility] [place] [facility] [address] [id number] [address] Feb, [facility] [place] [facility] [address] [id number] [address] Feb, [facility] [place] [facility] [address] [id number], [place] [address] Jan, [facility] [place] [facility] [address] [facility] [id number], [place] [address] Jan, [facility] [place] [facility] [address] [facility] [id number], [place] [address] Jan, [facility] [place] [facility] [address] [facility] [id number], [place] [address] Jan, [facility] [place] [facility] [address] [facility] [id number], [place] [address] Dec, [facility] [place] [facility] [address] [id number] [address] 25 Dec, 2011 [facility] [place] [facility] [address] [id number] [place] [address] 18 Dec, 2011 [facility] [place] [facility] [address] [id number] [place] [address] 13 Dec, 2011 [facility] [place] [facility] [address] [id number] [place] [address] 11 Dec, 2011 [facility] [place] [facility] [address] [id number] [place] [address] 19 Oct, 2011 [facility] [place] [facility] [address] [id number] [place] [address] Oct, [facility] [place] [facility] [address] [id number] [place] [address] Sep, [facility] [place] [facility] [address] [id number] [place] [address] Sep, [facility] [place] [facility] [address] [id number] [place] [address] August, [facility] [place] [facility] [address] [id number] [place] [address] August, [facility] [place] [facility] [address] [id number] [place] [address] Jul, [facility] [place] [facility] [address] [id number] [place] [address] Jun, [facility] [place] [facility] [address] [id number] [place] [address] Jun, [facility] [place] [facility] [address] [id number] [place] [address] 23 Jun, 2011 [facility] [place] [facility] [address] [id number] [place] [address] 19 Jun, 2011 [facility] [place] [facility] [address] [id number] [place] [address] 2011 [facility] [place] [facility] [address] [id number] [place] [address] 24 May, 2011 [facility] [address] [facility] [id number] [place] [address] May, [facility] [place] [facility] [address] [facility] [id number] [place] [address] 20 May, 2011 [facility] [place] [facility] [address] [facility] [id number] [place] [address] 14 May, 2011 [facility] [place] [facility] [address] [facility] [id number] [place] [address] 13 May, 2011 [facility] [place] [facility] [address] [facility] [id number] [place] [address] May, [facility] [place] [facility] [address] [facility] [id number] [place] [address] May, [facility] [id number] [place] [place] [address] May, [facility] [place] [facility] [id number] [place] [place] [address] Apr, [facility] [id number] [place] [address] Mar, [facility] [place] [facility] [id number] [place] [address] Mar, [facility] [place] [facility] [id number] [place] [place] [address] Mar, [facility] [place] [facility] [address] [facility] [id number], [place] [address] 15 Mar, 2011 [facility] [place] [facility] [address] [id number] [address] Mar, [facility] [place] [facility] [address] [id number], [place] [address] 17 Jan, 2011 [facility] [place] [facility] [id number], [place] [address] Jan, [facility] [place] [facility] [address] [facility] [id number], [place] [address] 11 Jan, 2011 [facility] [address] [facility] [id number], [place] [address] August, [facility] [address] [id number] [address] Mar, [facility] [address] [id number] [address] Feb, [facility] [address] [facility] [id number], [place] [address] Jan, [facility] [id number], [place] [address] Jan, IMMUNIZATIONS No Known Immunizations SOCIAL HISTORY Never Assessed REASON FOR VISIT Diabetes f/u [facility], A1C done [facility], wants admitted to hosp for mri and p ap and mammo and xrays for hernia's and see if any blood clots [facility] HOLBR[facility] PLAN OF CARE Activity Details Follow Up 3 Months Reason: Pending Test Mammogram, Bilateral Screening VITAL SIGNS Height 66 in 2018-01-09 Weight 308 lbs 2018-01-09 Temperature 98.1 degrees Fahrenheit 2018-01-09 Heart Rate 83 bpm 2018-01-09 Respiratory Rate 18 2018-01-09 BMI 49.71 kg/m2 2018-01-09 Blood pressure systolic 118 mmHg 2018-01-09 Blood pressure diastolic 62 mmHg 2018-01-09 MEDICATIONS Medication Instructions Dosage Frequency Start Date End Date Duration Status BD Pen Needle Short U/F 0 USE WITH VICTOZA DIRECTED 30 Active Nystatin 737148 UNIT/GM APPLY 3 TIMES PER DAY EXTERNALLY 10 10 Active Lipitor 40 mg Orally Once a day 1 tablet 24h Jul, Active Oxybutynin Chloride 5 mg Orally 3 times a day 1 tablet 8h 30 Active Fluoxetine HCl 40 mg Orally Once a day 2 capsule 24h 30 Active Easy Comfort Pen [place] 31G X 8 MM 1 pen needle 24h Apr, Active Victoza 18 MG/3ML Subcutaneous Once a day 1.8 mg 24h 14 Apr, 2015 Active Amitriptyline HCl 50 mg Orally Once a day 1 tablet 24h 30 Active Ibuprofen 800 MG Orally 3 times a day 1 tablet 8h Active Gabapentin 600 MG Orally 3 times a day 1 tablet 8h Active Metformin HCl 1000 MG Orally 2 times a day 1 tablet 12h 30 Active Cozaar 50 mg Orally Once a day 1 tablet 24h Active RESULTS Name Result Date Reference Range UA LONG DIP (IN HOUSE) 2018-01-09 Lot # [id number] Exp date 07/2018 Clarity clear Color orange Odor foul GLU negative HALEY positive KET trace SG 1.030 BLO trace-intact pH 6.0 Protein 2+ URO 1.0 NIT negative RIYA negative Lot # Exp date A1C (IN HOUSE) 2018-01-09 A1C IN HOUSE 7.1 4.3 - 5.6 % Previous A1c 7.2 Lot [id number] Exp date 06/2019 PROCEDURES Procedure Date Ordered Result Body Site URINALYSIS, AUTO, W/O SCOPE Jan 09, 2018 GLYCATED HEMOGLOBIN TEST Jan 09, 2018 INSTRUCTIONS MEDICATIONS ADMINISTERED No Known Medications MEDICAL (GENERAL) HISTORY Type Description Date Medical History diabetes mellitus Medical History morbid obesity Medical History hypertension Medical History chronic pain Medical History Anxiety disorder Surgical History cholecystectomy Surgical History x 2 Hospitalization History surgeries Hospitalization History labor and delivery
--- OUTSIDE RECORDS SUMMARY | 2018-09-17 23:24 | XMS REPORT ---
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 Name Role Phone NATALIO GUNN Unavailable PROBLEMS Type Condition ICD9-CM Code RNR68-BG Code Onset Dates Condition Status SNOMED Code Problem CAD (coronary artery disease) I25.10 Active 06939995 Problem Essential hypertension I10 Active 02878331 Problem Osteoarthritis of knees, bilateral M17.0 Active 334650769 Problem Arthritis M19.90 Active 3168699 Problem Diabetes E11.9 Active 20786695 Problem Hyperlipemia E78.5 Active 65119012 Problem Morbid obesity E66.01 Active [id number] ALLERGIES No Information ENCOUNTERS Encounter Location Date Diagnosis [facility] [id number] [place] [address] Dec, [facility] [id number] [place] [address] Dec, [facility] [id number] [place] [address] Dec, Diabetes E11.9 ; Essential hypertension I10 ; Arthritis M19.90 ; Urinary frequency R35.0 ; Routine adult health maintenance Z00.00 and BMI 45.0- 49.9, adult Z68.42 [facility] [id number] [place] [address] Dec, [facility] [address] [address] Dec, [facility] [id number] [place] [address] Oct, [facility] [id number] [place] [address] Sep, Diabetes E11.9 [facility] [id number] [place] [address] Sep, Diabetes E11.9 ; Hyperlipemia E78.5 ; CAD (coronary artery disease) I25.10 ; Essential hypertension I10 and BMI 45.0-49.9, adult Z68.42 [facility] [id number] [place] [address] Sep, [facility] [id number] [place] [address] August, [facility] [address] [address] Jan, Dysuria R30.0 [facility] [id number] [place] [address] Jan, Dysuria R30.0 [facility] [id number] [place] [address] Jan, Osteoarthritis of knees, bilateral M17.0 [facility] [id number] [place] [address] Nov, Dysuria R30.0 [facility] [id number] [place] [address] Oct, Blood in urine R31.9 ; Dysuria R30.0 ; Pharyngeal dysphagia R13.13 ; Acute cystitis with hematuria N30.01 ; CAD (coronary artery disease) I25.10 and Diabetes E11.9 [facility] [id number] [place] [address] Oct, [facility] [id number] [place] [address] Sep, Arthritis M19.90 ; Blood in urine R31.9 ; Diabetes E11.9 ; Acute cystitis with hematuria N30.01 and Pharyngoesophageal dysphagia R13.14 [facility] [address] [place] [address] 29 Sep, 2016 Osteoarthritis of knees, bilateral M17.0 [facility] [id number] [place] [address] 19 Sep, 2016 Osteoarthritis of knees, bilateral M17.0 [facility] [id number] [place] [address] August, Arthritis M19.90 [facility] [id number] [place] [address] Jul, Arthritis M19.90 [facility] [id number] [place] [address] Jun, Arthritis M19.90 [facility] [id number] [place] [address] Jun, [facility] [id number] [place] [address] Jun, [facility] [id number] [place] [address] May, Diabetes E11.9 ; Dysuria R30.0 and Arthritis M19.90 [facility] [id number] [place] [address] Apr, [facility] [id number] [place] [address] Apr, Arthritis M19.90 [facility] [id number] [place] [address] Mar, Arthritis M19.90 [facility] [id number] [place] [address] Feb, [facility] [id number] [place] [address] Jan, [facility] [id number] [place] [address] 29 Dec, 2015 Diabetes E11.9 and Arthritis M19.90 [facility] [address] [address] Dec, [facility] [id number] [place] [address] Nov, Arthritis M19.90 [facility] [address] [place] [address] Nov, [facility] [id number] [place] [address] Oct, Arthritis M19.90 [facility] [id number] [place] [address] Sep, Osteoarthritis of knees, bilateral M17.0 [facility] [id number] [place] [address] Sep, Osteoarthritis of knees, bilateral M17.0 [facility] [id number] [place] [address] August, Arthritis M19.90 [facility] [address] [place] [address] August, [facility] [address] [place] [address] Jul, Hyperlipemia E78.5 [facility] [id number] [place] [address] Jul, Encounter for well woman exam Z01.419 ; Morbid obesity E66.01 ; Encounter for screening for malignant neoplasm of cervix Z12.4 and Encounter for screening mammogram for breast cancer Z12.31 [facility] [address] [place] [address] Jul, Arthritis M19.90 ; Diabetes E11.9 ; Blood in urine R31.9 and UTI (urinary tract infection) N39.0 [facility] [address] [address] Jul, [facility] [id number] [place] [address] Jun, Arthritis M19.90 [facility] [id number] [place] [address] May, Arthritis M19.90 [facility] [id number] [place] [address] May, [facility] [id number] [place] [address] Apr, [facility] [id number] [place] [address] Apr, Arthritis M19.90 ; Diabetes E11.9 and Morbid obesity E66.01 [facility] [id number] [place] [address] Apr, [facility] [id number] [place] [address] Apr, Dyspareunia N94.1 [facility] [id number] [place] [address] Apr, [facility] [id number] [place] [address] Apr, [facility] [id number] [place] [address] Apr, Osteoarthritis of knees, bilateral M17.0 [facility] [id number] [place] [address] Apr, Diabetes E11.9 and CAD (coronary artery disease) I25.10 [facility] [id number] [place] [address] 08 Mar, 2015 [facility] [id number] [place] [address] 10 Feb, 2015 [facility] [id number] [place] [address] Jan, [facility] [address] [id number], [place] [address] Jan, [facility] [address] [facility] [id number], [place] [address] Jan, [facility] [address] [facility] [id number], [place] [address] Jan, Osteoarthritis of knees, bilateral M17.0 [facility] [address] [id number], [place] [address] 30 Dec, 2014 [facility] [address] [facility] [id number] [place] [address] Dec, [facility] [address] [facility] [id number], [place] [address] Dec, [facility] [id number] [address] 08 Dec, 2014 Diabetes mellitus 250.00 and UTI (urinary tract infection) 599.0 [facility] [address] [facility] [id number], [place] [address] Dec, [facility] [address] [facility] [id number], [place] [address] Nov, [facility] [address] [facility] [id number], [place] [address] Oct, [facility] [address] [facility] [id number], [place] [address] Oct, [facility] [address] [facility] [id number], [place] [address] Oct, [facility] [address] [facility] [id number], [place] [address] Oct, [facility] [address] [facility] [id number], [place] [address] Oct, [facility] [address] [facility] [id number], [place] [address] Sep, [facility] [place] [facility] [address] [id number] [place] [address] August, [facility] [place] [facility] [address] [id number] [place] [address] August, [facility] [place] [facility] [address] [id number] [place] [address] August, [facility] [place] [facility] [address] [id number] [place] [address] Jul, [facility] [place] [facility] [address] [id number] [place] [address] Jul, [facility] [place] [facility] [address] [id number] [place] [address] Jul, [facility] [place] [facility] [address] [id number] [place] [address] Jun, [facility] [place] [facility] [address] [id number] [place] [address] Jun, [facility] [place] [facility] [address] [id number] [place] [address] Jun, [facility] [place] [facility] [address] [facility] [id number] [place] [address] Jun, [facility] [place] [facility] [address] [id number] [place] [address] Jun, [facility] [place] [facility] [address] [id number] [place] [address] Jun, [facility] [place] [facility] [address] [id number] [place] [address] Jun, [facility] [place] [facility] [address] [facility] [id number] [place] [address] Jun, [facility] [place] [facility] [address] [facility] [id number] [place] [address] May, [facility] [place] [facility] [address] [id number] [place] [address] May, 2014 [facility] [place] [facility] [address] [id number] [place] [address] May, 2014 [facility] [place] [facility] [address] [id number] [place] [address] May, 2014 [facility] [place] [facility] [address] [id number] [place] [address] May, 2014 [facility] [place] [facility] [address] [id number] [place] [address] May, 2014 [facility] [place] [facility] [address] [id number] [place] [address] May, 2014 [facility] [place] [facility] [address] [facility] [id number] [place] [address] May, 2014 [facility] [place] [facility] [address] [id number] [place] [address] May, 2014 [facility] [place] [facility] [address] [id number] [place] [address] May, 2014 [facility] [place] [facility] [address] [facility] [id number] [place] [address] May, [facility] [place] [facility] [address] [facility] [id number], [place] [address] May, [facility] [place] [facility] [address] [id number], [place] [address] Apr, [facility] [place] [facility] [address] [id number] [place] [address] Apr, [facility] [place] [facility] [address] [id number], [place] [address] Mar, [facility] [place] [facility] [address] [facility] [id number] [place] [address] Mar, [facility] [place] [facility] [address] [id number] [place] [address] 17 Mar, 2014 [facility] [place] [facility] [address] [id number] [place] [address] 17 Mar, 2014 [facility] [place] [facility] [address] [id number] [place] [address] 17 Mar, 2014 [facility] [place] [facility] [address] [id number] [place] [address] 16 Mar, 2014 [facility] [place] [facility] [address] [id number] [place] [address] Feb, [facility] [place] [facility] [address] [id number] [place] [address] Feb, [facility] [place] [facility] [address] [id number] [place] [address] Feb, [facility] [place] [facility] [address] [id number] [place] [address] 24 Feb, 2014 [facility] [place] [facility] [address] [id number] [place] [address] Feb, [facility] [place] [facility] [address] [id number] [place] [address] Feb, [facility] [place] [facility] [address] [facility] [id number] [place] [address] Feb, [facility] [place] [facility] [address] [id number] [place] [address] 18 Feb, 2014 [facility] [place] [facility] [address] [id number], [place] [address] Feb, [facility] [place] [facility] [address] [id number] [place] [address] Jan, [facility] [place] [facility] [address] [id number] [place] [address] Jan, [facility] [place] [facility] [address] [id number], [place] [address] Jan, [facility] [place] [facility] [address] [id number] [place] [address] Jan, [facility] [place] [facility] [address] [id number] [place] [address] Jan, [facility] [place] [facility] [address] [id number] [place] [address] Jan, [facility] [place] [facility] [address] [id number] [place] [address] Jan, [facility] [place] [facility] [address] [id number] [place] [address] Jan, [facility] [place] [facility] [address] [id number] [place] [address] Jan, [facility] [place] [facility] [address] [id number] [place] [address] Jan, [facility] [place] [facility] [address] [id number] [place] [address] Dec, [facility] [place] [facility] [address] [id number] [place] [address] Dec, [facility] [place] [facility] [address] [id number] [place] [address] Dec, [facility] [place] [facility] [address] [id number] [place] [address] Dec, [facility] [place] [facility] [address] [id number] [place] [address] Nov, [facility] [place] [facility] [address] [id number] [place] [address] Nov, [facility] [place] [facility] [address] [id number] [place] [address] Nov, [facility] [place] [facility] [address] [id number] [place] [address] Nov, [facility] [place] [facility] [address] [id number] [place] [address] Nov, [facility] [place] [facility] [address] [id number] [place] [address] Nov, [facility] [place] [facility] [address] [id number] [place] [address] Nov, [facility] [place] [facility] [address] [id number] [place] [address] Nov, [facility] [place] [facility] [address] [id number] [place] [address] Nov, [facility] [place] [facility] [address] [id number] [place] [address] Oct, [facility] [place] [facility] [address] [id number] [place] [address] Oct, [facility] [place] [facility] [address] [id number] [place] [address] Sep, [facility] [place] [facility] [address] [id number] [place] [address] Sep, [facility] [place] [facility] [address] [id number] [place] [address] Sep, [facility] [place] [facility] [address] [id number] [place] [address] Sep, [facility] [place] [facility] [address] [id number] [place] [address] Sep, [facility] [place] [facility] [address] [id number] [place] [address] Sep, [facility] [place] [facility] [address] [id number] [place] [address] Sep, [facility] [place] [facility] [address] [id number] [place] [address] Sep, [facility] [place] [facility] [address] [id number] [place] [address] Sep, [facility] [place] [facility] [address] [id number] [place] [address] Sep, [facility] [place] [facility] [address] [id number] [place] [address] Sep, [facility] [place] [facility] [address] [id number] [place] [address] Sep, [facility] [place] [facility] [address] [id number] [place] [address] Sep, [facility] [place] [facility] [address] [id number] [place] [address] Sep, [facility] [place] [facility] [address] [id number] [place] [address] August, [facility] [place] [facility] [address] [id number] [place] [address] August, [facility] [place] [facility] [address] [id number] [place] [address] August, [facility] [place] [facility] [address] [id number] [place] [address] August, [facility] [place] [facility] [address] [id number] [place] [address] Jul, [facility] [place] [facility] [address] [id number] [place] [address] Jul, [facility] [place] [facility] [address] [id number] [place] [address] Jul, [facility] [place] [facility] [address] [id number] [place] [address] Jul, [facility] [place] [facility] [address] [id number] [place] [address] Jun, [facility] [place] [facility] [address] [id number] [place] [address] Jun, [facility] [place] [facility] [address] [id number] [place] [address] May, [facility] [place] [facility] [address] [id number] [place] [address] May, [facility] [place] [facility] [address] [id number] [place] [address] May, [facility] [place] [facility] [address] [id number] [place] [address] May, [facility] [place] [facility] [address] [id number] [place] [address] May, [facility] [place] [facility] [address] [id number] [place] [address] May, [facility] [place] [facility] [address] [id number] [place] [address] May, [facility] [place] [facility] [address] [id number] [place] [address] May, [facility] [place] [facility] [address] [id number] [place] [address] May, [facility] [place] [facility] [address] [id number] [place] [address] Apr, [facility] [place] [facility] [address] [id number] [place] [address] Apr, [facility] [place] [facility] [address] [id number] [place] [address] Apr, [facility] [place] [facility] [address] [id number] [place] [address] Apr, [facility] [place] [facility] [address] [id number] [place] [address] Apr, [facility] [place] [facility] [address] [id number] [place] [address] Mar, [facility] [place] [facility] [address] [id number] [place] [address] Mar, [facility] [place] [facility] [address] [id number] [place] [address] Feb, [facility] [address] [id number] [place] [address] Feb, [facility] [place] [facility] [address] [id number] [place] [address] Feb, [facility] [address] [id number] [place] [address] Feb, [facility] [place] [facility] [address] [id number] [place] [address] Feb, [facility] [address] [id number] [place] [address] Feb, [facility] [address] [id number] [place] [address] Feb, [facility] [place] [facility] [address] [id number] [place] [address] Feb, [facility] [address] [id number] [place] [address] Feb, [facility] [place] [facility] [address] [id number] [place] [address] Jan, [facility] [address] [id number] [place] [address] Jan, [facility] [place] [facility] [address] [id number] [place] [address] Jan, [facility] [place] [facility] [address] [id number] [place] [address] Jan, [facility] [place] [facility] [address] [id number] [place] [address] Jan, [facility] [place] [facility] [address] [id number] [place] [address] Dec, [facility] [place] [facility] [address] [id number] [place] [address] Dec, [facility] [address] [id number] [place] [address] Nov, [facility] [place] [facility] [address] [id number] [place] [address] Nov, [facility] [place] [facility] [address] [id number] [place] [address] Oct, [facility] [place] [facility] [address] [id number] [place] [address] Oct, [facility] [place] [facility] [address] [id number] [place] [address] Oct, [facility] [place] [facility] [address] [id number] [place] [address] Sep, [facility] [place] [facility] [address] [id number] [place] [address] Sep, [facility] [place] [facility] [address] [id number] [place] [address] Sep, [facility] [place] [facility] [address] [id number] [place] [address] August, [facility] [place] [facility] [address] [id number] [place] [address] August, [facility] [place] [facility] [address] [id number] [place] [address] August, [facility] [place] [facility] [address] [id number] [place] [address] August, [facility] [place] [facility] [address] [id number] [place] [address] Jul, [facility] [place] [facility] [address] [id number] [place] [address] Jun, [facility] [place] [facility] [address] [id number] [place] [address] Jun, [facility] [place] [facility] [address] [id number] [place] [address] Jun, [facility] [address] [id number] [place] [address] May, [facility] [address] [id number] [place] [address] May, [facility] [address] [id number] [place] [address] May, [facility] [place] [facility] [address] [id number] [place] [address] May, [facility] [address] [id number] [place] [address] Apr, [facility] [address] [id number] [place] [address] Apr, [facility] [address] [id number] [place] [address] Apr, [facility] [address] [id number] [place] [address] Apr, [facility] [address] [id number] [place] [address] Apr, [facility] [address] [id number] [place] [address] Mar, [facility] [address] [id number] [place] [address] Mar, [facility] [address] [id number] [place] [address] Mar, [facility] [place] [facility] [address] [id number] [place] [address] Mar, [facility] [place] [facility] [address] [id number] [place] [address] Mar, [facility] [address] [id number] [place] [address] Mar, [facility] [place] [facility] [address] [id number] [place] [address] Mar, [facility] [place] [facility] [address] [id number] [place] [address] Feb, [facility] [facility] [address] [id number] [place] [address] Feb, [facility] [place] [facility] [id number] [place] [address], [place] [address] Feb, [facility] [place] [facility] [address] [id number] [place] [address] Feb, [facility] [place] [facility] [address] [id number] [place] [address] Feb, [facility] [place] [facility] [address] [facility] [id number] [place] [address] Feb, [facility] [place] [facility] [address] [id number] [place] [address] Feb, [facility] [place] [facility] [address] [id number] [place] [address] Feb, [facility] [place] [facility] [address] [id number] [place] [address] Jan, [facility] [place] [facility] [address] [id number] [place] [address] Jan, [facility] [place] [facility] [address] [id number], [place] [address] Jan, [facility] [place] [facility] [address] [id number] [place] [address] Jan, [facility] [place] [facility] [address] [id number] [place] [address] Dec, [facility] [place] [facility] [address] [id number] [place] [address] Dec, [facility] [place] [facility] [address] [id number], [place] [address] 18 Dec, 2011 [facility] [place] [facility] [address] [id number] [place] [address] 13 Dec, 2011 [facility] [place] [facility] [address] [id number] [place] [address] 11 Dec, 2011 [facility] [place] [facility] [address] [id number] [place] [address] Oct, [facility] [place] [facility] [address] [id number] [place] [address] Oct, [facility] [place] [facility] [address] [id number] [place] [address] Sep, [facility] [place] [facility] [address] [id number] [place] [address] Sep, [facility] [place] [facility] [address] [id number] [place] [address] August, [facility] [place] [facility] [address] [id number] [place] [address] August, [facility] [place] [facility] [address] [id number] [place] [address] Jul, [facility] [place] [facility] [address] [id number] [place] [address] Jun, [facility] [place] [facility] [address] [id number] [place] [address] Jun, [facility] [place] [facility] [address] [id number] [place] [address] Jun, [facility] [place] [facility] [address] [id number] [place] [address] Jun, [facility] [place] [facility] [address] [id number] [place] [address] Jun, [facility] [place] [facility] [address] [id number] [place] [address] 24 May, 2011 [facility] [place] [facility] [address] [id number] [place] [address] 22 May, 2011 [facility] [place] [facility] [address] [id number] [place] [address] 20 May, 2011 [facility] [place] [facility] [address] [id number] [place] [address] 14 May, 2011 [facility] [place] [facility] [address] [id number] [place] [address] 13 May, 2011 [facility] [place] [facility] [address] [id number] [place] [address] 03 May, 2011 [facility] [place] [address] [id number] [place] [address] 02 May, 2011 [facility] [facility] [address] [id number] [place] [address] May, [facility] [place] [address] [facility] [id number] [place] [address] Apr, [facility] [address] [id number] [place] [address] Mar, [facility] [facility] [address] [id number] [place] [address] Mar, [facility] [address] [id number] [place] [address] Mar, [facility] [address] [id number], [place] [address] 15 Mar, 2011 [facility] [address] [id number] [place] [address] Mar, [facility] [place] [address] [id number] [place] [address] 17 Jan, 2011 [facility] [address] [id number] [place] [address] 11 Jan, 2011 [facility] [address] [id number] [place] [address] Jan, [facility] [address] [facility] [id number], [place] [address] August, [facility] [address] [id number], [place] [address] Mar, [facility] [address] [id number] [address] Feb, [facility] [address] [id number], [place] [address] 14 Jan, 2010 [facility] [address] [facility] [id number], [place] [address] Jan, IMMUNIZATIONS No Known Immunizations SOCIAL HISTORY Never Assessed REASON FOR VISIT Requests return call PLAN OF CARE VITAL SIGNS MEDICATIONS [...]
--- OUTSIDE RECORDS SUMMARY | 2018-09-17 23:24 | XMS REPORT ---
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 Name Role Phone KATIE HUDSON Unavailable PROBLEMS Type Condition ICD9-CM Code GDZ36-NE Code Onset Dates Condition Status SNOMED Code Problem CAD (coronary artery disease) I25.10 Active 44966903 Problem Essential hypertension I10 Active 40116113 Problem Osteoarthritis of knees, bilateral M17.0 Active 285637925 Problem Arthritis M19.90 Active 0958736 Problem Diabetes E11.9 Active 98243686 Problem Hyperlipemia E78.5 Active 67261131 Problem Morbid obesity E66.01 Active [id number] ALLERGIES No Information ENCOUNTERS Encounter Location Date Diagnosis [facility] [id number] [place] [address] Dec, [facility] [id number] [place] [address] Dec, [facility] [id number] [place] [address] Dec, Diabetes E11.9 ; Essential hypertension I10 ; Arthritis M19.90 ; Urinary frequency R35.0 ; Routine adult health maintenance Z00.00 and BMI 45.0- 49.9, adult Z68.42 [facility] [id number] [place] [address] Dec, [facility] [address] [address] Dec, [facility] [id number] [place] [address] Oct, [facility] [id number] [place] [address] Sep, Diabetes E11.9 [facility] [id number] [place] [address] Sep, Diabetes E11.9 ; Hyperlipemia E78.5 ; CAD (coronary artery disease) I25.10 ; Essential hypertension I10 and BMI 45.0-49.9, adult Z68.42 [facility] [id number] [place] [address] Sep, [facility] [id number] [place] [address] August, [facility] [address] [address] Jan, Dysuria R30.0 [facility] [id number] [place] [address] Jan, Dysuria R30.0 [facility] [id number] [place] [address] Jan, Osteoarthritis of knees, bilateral M17.0 [facility] [id number] [place] [address] Nov, Dysuria R30.0 [facility] [id number] [place] [address] Oct, Blood in urine R31.9 ; Dysuria R30.0 ; Pharyngeal dysphagia R13.13 ; Acute cystitis with hematuria N30.01 ; CAD (coronary artery disease) I25.10 and Diabetes E11.9 [facility] [id number] [place] [address] Oct, [facility] [id number] [place] [address] Sep, Arthritis M19.90 ; Blood in urine R31.9 ; Diabetes E11.9 ; Acute cystitis with hematuria N30.01 and Pharyngoesophageal dysphagia R13.14 [facility] [address] [place] [address] 29 Sep, 2016 Osteoarthritis of knees, bilateral M17.0 [facility] [id number] [place] [address] 19 Sep, 2016 Osteoarthritis of knees, bilateral M17.0 [facility] [id number] [place] [address] August, Arthritis M19.90 [facility] [id number] [place] [address] Jul, Arthritis M19.90 [facility] [id number] [place] [address] Jun, Arthritis M19.90 [facility] [id number] [place] [address] Jun, [facility] [id number] [place] [address] Jun, [facility] [id number] [place] [address] May, Diabetes E11.9 ; Dysuria R30.0 and Arthritis M19.90 [facility] [id number] [place] [address] Apr, [facility] [id number] [place] [address] Apr, Arthritis M19.90 [facility] [id number] [place] [address] Mar, Arthritis M19.90 [facility] [id number] [place] [address] Feb, [facility] [id number] [place] [address] Jan, [facility] [id number] [place] [address] 29 Dec, 2015 Diabetes E11.9 and Arthritis M19.90 [facility] [address] [address] Dec, [facility] [id number] [place] [address] Nov, Arthritis M19.90 [facility] [address] [address] Nov, [facility] [id number] [place] [address] Oct, Arthritis M19.90 [facility] [id number] [place] [address] Sep, Osteoarthritis of knees, bilateral M17.0 [facility] [id number] [place] [address] Sep, Osteoarthritis of knees, bilateral M17.0 [facility] [id number] [place] [address] August, Arthritis M19.90 [facility] [id number] [place] [address] August, [facility] [id number] [place] [address] Jul, Hyperlipemia E78.5 [facility] [place] [id number] [place] [address] Jul, Encounter for well woman exam Z01.419 ; Morbid obesity E66.01 ; Encounter for screening for malignant neoplasm of cervix Z12.4 and Encounter for screening mammogram for breast cancer Z12.31 [facility] [id number] [place] [address] Jul, Arthritis M19.90 ; Diabetes E11.9 ; Blood in urine R31.9 and UTI (urinary tract infection) N39.0 [facility] [address] [address] Jul, [facility] [id number] [place] [address] Jun, Arthritis M19.90 [facility] [id number] [place] [address] May, Arthritis M19.90 [facility] [id number] [place] [address] May, [facility] [id number] [place] [address] Apr, [facility] [id number] [place] [address] Apr, Arthritis M19.90 ; Diabetes E11.9 and Morbid obesity E66.01 [facility] [id number] [place] [address] Apr, [facility] [id number] [place] [address] Apr, Dyspareunia N94.1 [facility] [id number] [place] [address] Apr, [facility] [id number] [place] [address] Apr, [facility] [id number] [place] [address] Apr, Osteoarthritis of knees, bilateral M17.0 [facility] [id number] [place] [address] Apr, Diabetes E11.9 and CAD (coronary artery disease) I25.10 [facility] [id number] [place] [address] 08 Mar, 2015 [facility] [id number] [place] [address] 10 Feb, 2015 [facility] [id number] [place] [address] Jan, [facility] [address] [id number], [place] [address] Jan, [facility] [address] [facility] [id number], [place] [address] Jan, [facility] [address] [facility] [id number], [place] [address] Jan, Osteoarthritis of knees, bilateral M17.0 [facility] [address] [id number], [place] [address] 30 Dec, 2014 [facility] [address] [facility] [id number] [place] [address] Dec, [facility] [address] [facility] [id number], [place] [address] Dec, [facility] [id number] [address] 08 Dec, 2014 Diabetes mellitus 250.00 and UTI (urinary tract infection) 599.0 [facility] [address] [facility] [id number], [place] [address] Dec, [facility] [address] [facility] [id number], [place] [address] Nov, [facility] [address] [facility] [id number], [place] [address] Oct, [facility] [address] [facility] [id number], [place] [address] Oct, [facility] [address] [facility] [id number], [place] [address] Oct, [facility] [address] [facility] [id number], [place] [address] Oct, [facility] [address] [facility] [id number], [place] [address] Oct, [facility] [address] [facility] [id number], [place] [address] Sep, [facility] [place] [facility] [address] [id number] [place] [address] August, [facility] [place] [facility] [address] [id number] [place] [address] August, [facility] [place] [facility] [address] [id number] [place] [address] August, [facility] [place] [facility] [address] [id number] [place] [address] Jul, [facility] [place] [facility] [address] [id number] [place] [address] Jul, [facility] [place] [facility] [address] [id number] [place] [address] Jul, [facility] [place] [facility] [address] [id number] [place] [address] Jun, [facility] [place] [facility] [address] [id number] [place] [address] Jun, [facility] [place] [facility] [address] [id number] [place] [address] Jun, [facility] [place] [facility] [address] [facility] [id number] [place] [address] Jun, [facility] [place] [facility] [address] [id number] [place] [address] Jun, [facility] [place] [facility] [address] [id number] [place] [address] Jun, [facility] [place] [facility] [address] [id number] [place] [address] Jun, [facility] [place] [facility] [address] [facility] [id number] [place] [address] Jun, [facility] [place] [facility] [address] [facility] [id number] [place] [address] May, [facility] [place] [facility] [address] [id number] [place] [address] May, 2014 [facility] [place] [facility] [address] [id number] [place] [address] May, 2014 [facility] [place] [facility] [address] [id number] [place] [address] May, 2014 [facility] [place] [facility] [address] [id number] [place] [address] May, 2014 [facility] [place] [facility] [address] [id number] [place] [address] May, 2014 [facility] [place] [facility] [address] [id number] [place] [address] May, 2014 [facility] [place] [facility] [address] [facility] [id number] [place] [address] May, 2014 [facility] [place] [facility] [address] [id number] [place] [address] May, 2014 [facility] [place] [facility] [address] [id number] [place] [address] May, 2014 [facility] [place] [facility] [address] [facility] [id number] [place] [address] May, [facility] [place] [facility] [address] [facility] [id number], [place] [address] May, [facility] [place] [facility] [address] [id number], [place] [address] Apr, [facility] [place] [facility] [address] [id number] [place] [address] Apr, [facility] [place] [facility] [address] [id number], [place] [address] Mar, [facility] [place] [facility] [address] [facility] [id number] [place] [address] Mar, [facility] [place] [facility] [address] [id number] [place] [address] 17 Mar, 2014 [facility] [place] [facility] [address] [id number] [place] [address] 17 Mar, 2014 [facility] [place] [facility] [address] [id number] [place] [address] 17 Mar, 2014 [facility] [place] [facility] [address] [id number] [place] [address] 16 Mar, 2014 [facility] [place] [facility] [address] [id number] [place] [address] Feb, [facility] [place] [facility] [address] [id number] [place] [address] Feb, [facility] [place] [facility] [address] [id number] [place] [address] Feb, [facility] [place] [facility] [address] [id number] [place] [address] 24 Feb, 2014 [facility] [place] [facility] [address] [id number] [place] [address] Feb, [facility] [place] [facility] [address] [id number] [place] [address] Feb, [facility] [place] [facility] [address] [facility] [id number] [place] [address] Feb, [facility] [place] [facility] [address] [id number] [place] [address] 18 Feb, 2014 [facility] [place] [facility] [address] [id number], [place] [address] Feb, [facility] [place] [facility] [address] [id number] [place] [address] Jan, [facility] [place] [facility] [address] [id number] [place] [address] Jan, [facility] [place] [facility] [address] [id number], [place] [address] Jan, [facility] [place] [facility] [address] [id number] [place] [address] Jan, [facility] [place] [facility] [address] [id number] [place] [address] Jan, [facility] [place] [facility] [address] [id number] [place] [address] Jan, [facility] [place] [facility] [address] [id number] [place] [address] Jan, [facility] [place] [facility] [address] [id number] [place] [address] Jan, [facility] [place] [facility] [address] [id number] [place] [address] Jan, [facility] [place] [facility] [address] [id number] [place] [address] Jan, [facility] [place] [facility] [address] [id number] [place] [address] Dec, [facility] [place] [facility] [address] [id number] [place] [address] Dec, [facility] [place] [facility] [address] [id number] [place] [address] Dec, [facility] [place] [facility] [address] [id number] [place] [address] Dec, [facility] [place] [facility] [address] [id number] [place] [address] Nov, [facility] [place] [facility] [address] [id number] [place] [address] Nov, [facility] [place] [facility] [address] [id number] [place] [address] Nov, [facility] [place] [facility] [address] [id number] [place] [address] Nov, [facility] [place] [facility] [address] [id number] [place] [address] Nov, [facility] [place] [facility] [address] [id number] [place] [address] Nov, [facility] [place] [facility] [address] [id number] [place] [address] Nov, [facility] [place] [facility] [address] [id number] [place] [address] Nov, [facility] [place] [facility] [address] [id number] [place] [address] Nov, [facility] [place] [facility] [address] [id number] [place] [address] Oct, [facility] [place] [facility] [address] [id number] [place] [address] Oct, [facility] [place] [facility] [address] [id number] [place] [address] Sep, [facility] [place] [facility] [address] [id number] [place] [address] Sep, [facility] [place] [facility] [address] [id number] [place] [address] Sep, [facility] [place] [facility] [address] [id number] [place] [address] Sep, [facility] [place] [facility] [address] [id number] [place] [address] Sep, [facility] [place] [facility] [address] [id number] [place] [address] Sep, [facility] [place] [facility] [address] [id number] [place] [address] Sep, [facility] [place] [facility] [address] [id number] [place] [address] Sep, [facility] [place] [facility] [address] [id number] [place] [address] Sep, [facility] [place] [facility] [address] [id number] [place] [address] Sep, [facility] [place] [facility] [address] [id number] [place] [address] Sep, [facility] [place] [facility] [address] [id number] [place] [address] Sep, [facility] [place] [facility] [address] [id number] [place] [address] Sep, [facility] [place] [facility] [address] [id number] [place] [address] Sep, [facility] [place] [facility] [address] [id number] [place] [address] August, [facility] [place] [facility] [address] [id number] [place] [address] August, [facility] [place] [facility] [address] [id number] [place] [address] August, [facility] [place] [facility] [address] [id number] [place] [address] August, [facility] [place] [facility] [address] [id number] [place] [address] Jul, [facility] [place] [facility] [address] [id number] [place] [address] Jul, [facility] [place] [facility] [address] [id number] [place] [address] Jul, [facility] [place] [facility] [address] [id number] [place] [address] Jul, [facility] [place] [facility] [address] [id number] [place] [address] Jun, [facility] [place] [facility] [address] [id number] [place] [address] Jun, [facility] [place] [facility] [address] [id number] [place] [address] May, [facility] [place] [facility] [address] [id number] [place] [address] May, [facility] [place] [facility] [address] [id number] [place] [address] May, [facility] [place] [facility] [address] [id number] [place] [address] May, [facility] [place] [facility] [address] [id number] [place] [address] May, [facility] [place] [facility] [address] [id number] [place] [address] May, [facility] [place] [facility] [address] [id number] [place] [address] May, [facility] [place] [facility] [address] [id number] [place] [address] May, [facility] [place] [facility] [address] [id number] [place] [address] May, [facility] [place] [facility] [address] [id number] [place] [address] Apr, [facility] [place] [facility] [address] [id number] [place] [address] Apr, [facility] [place] [facility] [address] [id number] [place] [address] Apr, [facility] [place] [facility] [address] [id number] [place] [address] Apr, [facility] [place] [facility] [address] [id number] [place] [address] Apr, [facility] [place] [facility] [address] [id number] [place] [address] Mar, [facility] [place] [facility] [address] [id number] [place] [address] Mar, [facility] [place] [facility] [address] [id number] [place] [address] Feb, [facility] [address] [id number] [place] [address] Feb, [facility] [place] [facility] [address] [id number] [place] [address] Feb, [facility] [address] [id number] [place] [address] Feb, [facility] [place] [facility] [address] [id number] [place] [address] Feb, [facility] [address] [id number] [place] [address] Feb, [facility] [address] [id number] [place] [address] Feb, [facility] [place] [facility] [address] [id number] [place] [address] Feb, [facility] [address] [id number] [place] [address] Feb, [facility] [place] [facility] [address] [id number] [place] [address] Jan, [facility] [address] [id number] [place] [address] Jan, [facility] [place] [facility] [address] [id number] [place] [address] Jan, [facility] [place] [facility] [address] [id number] [place] [address] Jan, [facility] [place] [facility] [address] [id number] [place] [address] Jan, [facility] [place] [facility] [address] [id number] [place] [address] Dec, [facility] [place] [facility] [address] [id number] [place] [address] Dec, [facility] [address] [id number] [place] [address] Nov, [facility] [place] [facility] [address] [id number] [place] [address] Nov, [facility] [place] [facility] [address] [id number] [place] [address] Oct, [facility] [place] [facility] [address] [id number] [place] [address] Oct, [facility] [place] [facility] [address] [id number] [place] [address] Oct, [facility] [place] [facility] [address] [id number] [place] [address] Sep, [facility] [place] [facility] [address] [id number] [place] [address] Sep, [facility] [place] [facility] [address] [id number] [place] [address] Sep, [facility] [place] [facility] [address] [id number] [place] [address] August, [facility] [place] [facility] [address] [id number] [place] [address] August, [facility] [place] [facility] [address] [id number] [place] [address] August, [facility] [place] [facility] [address] [id number] [place] [address] August, [facility] [place] [facility] [address] [id number] [place] [address] Jul, [facility] [place] [facility] [address] [id number] [place] [address] Jun, [facility] [place] [facility] [address] [id number] [place] [address] Jun, [facility] [place] [facility] [address] [id number] [place] [address] Jun, [facility] [address] [id number] [place] [address] May, [facility] [address] [id number] [place] [address] May, [facility] [address] [id number] [place] [address] May, [facility] [place] [facility] [address] [id number] [place] [address] May, [facility] [address] [id number] [place] [address] Apr, [facility] [address] [id number] [place] [address] Apr, [facility] [address] [id number] [place] [address] Apr, [facility] [address] [id number] [place] [address] Apr, [facility] [address] [id number] [place] [address] Apr, [facility] [address] [id number] [place] [address] Mar, [facility] [address] [id number] [place] [address] Mar, [facility] [facility] [address] [id number] [place] [address] Mar, [facility] [place] [facility] [address] [id number] [place] [address] Mar, [facility] [place] [facility] [address] [id number] [place] [address] Mar, [facility] [address] [id number] [place] [address] Mar, [facility] [place] [facility] [address] [id number] [place] [address] Mar, [facility] [place] [facility] [address] [id number] [place] [address] Feb, [facility] [place] [facility] [address] [id number] [place] [address] Feb, [facility] [place] [facility] [address] [id number] [place] [address], [place] [address] Feb, [facility] [place] [facility] [address] [id number] [place] [address] Feb, [facility] [place] [facility] [address] [id number] [place] [address] Feb, [facility] [place] [facility] [address] [facility] [id number] [place] [address] Feb, [facility] [place] [facility] [address] [id number] [place] [address] Feb, [facility] [place] [facility] [address] [id number] [place] [address] Feb, [facility] [place] [facility] [address] [id number] [place] [address] Jan, [facility] [place] [facility] [address] [id number] [place] [address] Jan, [facility] [place] [facility] [address] [id number], [place] [address] Jan, [facility] [place] [facility] [address] [id number] [place] [address] Jan, [facility] [place] [facility] [address] [id number] [place] [address] Dec, [facility] [place] [facility] [address] [id number] [place] [address] Dec, [facility] [place] [facility] [address] [id number], [place] [address] 18 Dec, 2011 [facility] [place] [facility] [address] [id number] [place] [address] 13 Dec, 2011 [facility] [place] [facility] [address] [id number] [place] [address] 11 Dec, 2011 [facility] [place] [facility] [address] [id number] [place] [address] Oct, [facility] [place] [facility] [address] [id number] [place] [address] Oct, [facility] [place] [facility] [address] [id number] [place] [address] Sep, [facility] [place] [facility] [address] [id number] [place] [address] Sep, [facility] [place] [facility] [address] [id number] [place] [address] August, [facility] [place] [facility] [address] [id number] [place] [address] August, [facility] [place] [facility] [address] [id number] [place] [address] Jul, [facility] [place] [facility] [address] [id number] [place] [address] Jun, [facility] [place] [facility] [address] [id number] [place] [address] Jun, [facility] [place] [facility] [address] [id number] [place] [address] Jun, [facility] [place] [facility] [address] [id number] [place] [address] Jun, [facility] [place] [facility] [address] [id number] [place] [address] Jun, [facility] [place] [facility] [address] [id number] [place] [address] 24 May, 2011 [facility] [place] [facility] [address] [id number] [place] [address] 22 May, 2011 [facility] [place] [facility] [address] [id number] [place] [address] 20 May, 2011 [facility] [place] [facility] [address] [id number] [place] [address] 14 May, 2011 [facility] [place] [facility] [address] [id number] [place] [address] 13 May, 2011 [facility] [place] [facility] [address] [id number] [place] [address] 03 May, 2011 [facility] [place] [facility] [address] [id number] [place] [address] 02 May, 2011 [facility] [place] [facility] [address] [id number] [place] [address] May, [facility] [place] [facility] [address] [facility] [id number] [place] [address] Apr, [facility] [place] [facility] [address] [id number] [place] [address] Mar, [facility] [place] [facility] [address] [id number] [place] [address] Mar, [facility] [place] [facility] [address] [id number] [place] [address] Mar, [facility] [place] [facility] [address] [id number], [place] [address] 15 Mar, 2011 [facility] [place] [facility] [address] [id number] [place] [address] Mar, [facility] [place] [facility] [address] [id number] [place] [address] 17 Jan, 2011 [facility] [place] [facility] [address] [id number] [place] [address] 11 Jan, 2011 [facility] [place] [facility] [address] [id number] [place] [address] Jan, [facility] [address] [facility] [id number], [place] [address] August, [facility] [address] [id number], [place] [address] Mar, [facility] [address] [id number], [place] [address] Feb, [facility] [address] [id number], [place] [address] 14 Jan, 2010 [facility] [address] [facility] [id number], [place] [address] Jan, IMMUNIZATIONS No Known Immunizations SOCIAL HISTORY Never Assessed REASON FOR VISIT Refill request PLAN OF CARE VITAL SIGNS MEDICATIONS Unknown [...]
--- OUTSIDE RECORDS SUMMARY | 2018-09-17 23:25 | XMS REPORT ---
Author Author KATIE HUDSON Organization [facility] Address [address] [place] [address] Care Team Providers Care Water Quality Tester Name Role Phone KATIE HUDSON Unavailable PROBLEMS Type Condition ICD9-CM Code NOJ46-YU Code Onset Dates Condition Status SNOMED Code Problem CAD (coronary artery disease) I25.10 Active 55505084 Problem Arthritis M19.90 Active 0114760 Problem Diabetes E11.9 Active 67862017 Problem Essential hypertension I10 Active 23669609 Problem Pharyngeal dysphagia R13.13 Active [id number] Problem Hyperlipemia E78.5 Active 70194317 Problem Morbid obesity E66.01 Active 095292088 Problem Osteoarthritis of knees, bilateral M17.0 Active 817934514 Problem Pharyngoesophageal dysphagia R13.14 Active [id number] ALLERGIES No Information ENCOUNTERS Encounter Location Date Diagnosis [place] [id number] [place] [address] Dec, [place] [id number] [place] [address] Dec, [place] [id number] [place] [address] Oct, [facility] [id number] [place] [address] Sep, Diabetes E11.9 [place] [id number] [place] [address] Sep, Diabetes E11.9 ; Hyperlipemia E78.5 ; CAD (coronary artery disease) I25.10 ; Essential hypertension I10 and BMI 45.0-49.9, adult Z68.42 [place] [address] [address] Sep, [facility] [address] [address] August, [facility] [id number] [place] [address] Jan, Dysuria R30.0 [facility] [id number] [place] [address] Jan, Dysuria R30.0 [facility] [id number] [place] [address] Jan, Osteoarthritis of knees, bilateral M17.0 [facility] [id number] [place] [address] Nov, Dysuria R30.0 [facility] [id number] [place] [address] Oct, Blood in urine R31.9 ; Dysuria R30.0 ; Pharyngeal dysphagia R13.13 ; Acute cystitis with hematuria N30.01 ; CAD (coronary artery disease) I25.10 and Diabetes E11.9 [place] [id number] [place] [address] Oct, [facility] [id number] [place] [address] Sep, Arthritis M19.90 ; Blood in urine R31.9 ; Diabetes E11.9 ; Acute cystitis with hematuria N30.01 and Pharyngoesophageal dysphagia R13.14 [facility] [id number] [place] [address] Sep, Osteoarthritis of knees, bilateral M17.0 [facility] [id number] [place] [address] Sep, Osteoarthritis of knees, bilateral M17.0 [facility] [id number] [place] [address] August, Arthritis M19.90 [facility] [address] [address] Jul, [address].90 [facility] [id number] [place] [address] Jun, Arthritis M19.90 [facility] [id number] [place] [address] Jun, [facility] [id number] [place] [address] Jun, [facility] [id number] [place] [address] May, Diabetes E11.9 ; Dysuria R30.[address] [facility] [id number] [place] [address] Apr, [facility] [id number] [place] [address] Apr, Arthritis M19.90 [facility] [id number] [place] [address] Mar, Arthritis M19.90 [facility] [id number] [place] [address] Feb, [facility] [address] [address] Jan, [facility] [id number] [place] [address] Dec, Diabetes E11.[address] [facility] [id number] [place] [address] Dec, [facility] [id number] [place] [address] Nov, Arthritis M19.90 [facility] [address] [address] Nov, [facility] [address] [address] Oct, Arthritis M19.90 [facility] [address] [address] 10 Sep, 2015 Osteoarthritis of knees, bilateral M17.0 [facility] [address] [address] 09 Sep, 2015 Osteoarthritis of knees, bilateral M17.0 [facility] [address] [address] August, Arthritis M19.90 [place] [id number] [place] [address] August, [place] [id number] [place] [address] Jul, Hyperlipemia E78.5 [place] [id number] [place] [address] Jul, Encounter for well woman exam Z01.419 ; Morbid obesity E66.01 ; Encounter for screening for malignant neoplasm of cervix Z12.4 and Encounter for screening mammogram for breast cancer Z12.31 [place] [address] [address] Jul, Arthritis M19.90 ; Diabetes E11.9 ; Blood in urine R31.9 and UTI (urinary tract infection) N39.0 [place] [address] [address] Jul, [place] [address] [address] Jun, Arthritis M19.90 [place] [address] [address] May, Arthritis M19.90 [place] [address] [address] May, [facility] [address] [address] Apr, [facility] [id number] [place] [address] Apr, Arthritis M19.90 ; Diabetes E11.9 and Morbid obesity E66.01 [facility] [id number] [place] [address] Apr, [facility] [id number] [place] [address] Apr, Dyspareunia N94.1 [facility] [id number] [place] [address] Apr, [facility] [id number] [place] [address] Apr, [facility] [id number] [place] [address] Apr, Osteoarthritis of knees, bilateral M17.0 [facility] [address] [address] Apr, Diabetes E11.9 and CAD (coronary artery disease) I25.10 [facility] [address] [address] 08 Mar, 2015 [facility] [address] [address] Feb, [facility] [address] [address] 30 Jan, 2015 [facility] [id number] [place] [address] Jan, [facility] [id number] [address] Jan, [facility] [address] [address] Jan, Osteoarthritis of knees, bilateral M17.0 [facility] [address] [id number] [place] [address] [address], 2014 [facility] [address] [id number] [place] [address] Dec, [facility] [address] [id number] [place] [address] Dec, [facility] [address] [id number] [place] [address] Dec, Diabetes mellitus 250.00 and UTI (urinary tract infection) 599.0 [facility] [address] [id number] [place] [address] Dec, [facility] [address] [id number] [place] [address] Nov, [facility] [address] [id number] [place] [address] Oct, [facility] [address] [id number] [place] [address] Oct, [facility] [address] [id number] [place] [address] Oct, [facility] [address] [facility] [id number] [place] [address] Oct, [facility] [address] [id number] [place] [address] Oct, [facility] [address] [id number] [place] [address] Sep, [facility] [address] [id number] [place] [address] August, [facility] [address] [id number] [place] [address] August, [facility] [address] [id number] [place] [address] August, [facility] [place] [facility] [address] [id number] [place] [address] Jul, [facility] [place] [facility] [address] [id number] [place] [address] Jul, [facility] [place] [facility] [address] [id number] [place] [address] Jul, [facility] [place] [facility] [address] [id number] [place] [address] Jun, [facility] [place] [facility] [address] [id number] [place] [address] Jun, [facility] [place] [facility] [address] [id number] [place] [address] Jun, [facility] [place] [facility] [address] [id number] [place] [address] Jun, [facility] [place] [facility] [address] [id number] [place] [address] Jun, [facility] [place] [facility] [address] [id number] [place] [address] Jun, [facility] [place] [facility] [address] [id number] [place] [address] Jun, [facility] [place] [facility] [address] [id number] [place] [address] Jun, [facility] [place] [facility] [address] [id number] [place] [address] May, [facility] [place] [facility] [address] [id number] [place] [address] May, [facility] [place] [facility] [address] [id number] [place] [address] May, [facility] [place] [facility] [address] [id number] [place] [address] May, [facility] [place] [facility] [address] [id number] [place] [address] May, 2014 [facility] [place] [facility] [address] [id number] [place] [address] May, 2014 [facility] [place] [facility] [address] [id number] [place] [address] May, 2014 [facility] [place] [facility] [address] [id number] [place] [address] May, 2014 [facility] [place] [facility] [address] [id number] [place] [address] May, 2014 [facility] [place] [facility] [address] [id number] [place] [address] May, 2014 [facility] [place] [facility] [address] [facility] [id number] [place] [address] May, 2014 [facility] [place] [facility] [address] [facility] [id number] [place] [address] May, 2014 [facility] [place] [facility] [address] [id number] [place] [address] Apr, [facility] [place] [facility] [address] [facility] [id number] [place] [address] Apr, [facility] [place] [facility] [address] [facility] [id number] [place] [address] Mar, [facility] [place] [facility] [address] [id number] [place] [address] Mar, [facility] [place] [facility] [address] [id number] [place] [address] Mar, [facility] [place] [facility] [address] [id number] [place] [address] Mar, [facility] [place] [facility] [address] [id number] [place] [address] Mar, [facility] [place] [facility] [address] [facility] [id number] [place] [address] Mar, [facility] [place] [facility] [address] [id number] [place] [address] Feb, [facility] [place] [facility] [address] [id number] [place] [address] Feb, [facility] [place] [facility] [address] [id number] [place] [address] Feb, [facility] [place] [facility] [address] [id number] [place] [address] Feb, [facility] [place] [facility] [address] [id number] [place] [address] Feb, [facility] [place] [facility] [address] [id number] [place] [address] Feb, [facility] [place] [facility] [address] [id number] [place] [address] Feb, [facility] [place] [facility] [address] [id number] [place] [address] Feb, [facility] [place] [facility] [address] [id number] [place] [address] Feb, [facility] [place] [facility] [address] [id number] [place] [address] Jan, [facility] [place] [facility] [address] [id number] [place] [address] Jan, [facility] [place] [facility] [address] [id number] [address] Jan, [facility] [place] [facility] [address] [id number] [place] [address] Jan, [facility] [place] [facility] [address] [id number] [place] [address] Jan, [facility] [place] [facility] [address] [id number] [place] [address] Jan, [facility] [place] [facility] [address] [id number] [place] [address] 17 Jan, 2014 [facility] [place] [facility] [address] [id number] [place] [address] 17 Jan, 2014 [facility] [place] [facility] [address] [id number] [place] [address] 13 Jan, 2014 [facility] [place] [facility] [address] [id number] [place] [address] Jan, [facility] [place] [facility] [address] [id number] [place] [address] 19 Dec, 2013 [facility] [place] [facility] [address] [id number] [place] [address] 19 Dec, 2013 [facility] [place] [facility] [address] [id number] [place] [address] Dec, [facility] [place] [facility] [address] [id number] [place] [address] Dec, [facility] [place] [facility] [address] [id number] [place] [address] Nov, [facility] [place] [facility] [address] [id number] [place] [address] Nov, [facility] [place] [facility] [address] [id number] [place] [address] Nov, [facility] [place] [facility] [address] [id number] [place] [address] Nov, [facility] [place] [facility] [address] [id number] [place] [address] Nov, [facility] [place] [facility] [address] [id number] [place] [address] Nov, [facility] [place] [facility] [address] [id number] [place] [address] Nov, [facility] [place] [facility] [address] [id number] [place] [address] Nov, [facility] [place] [facility] [address] [id number] [place] [address] Nov, [facility] [place] [facility] [address] [id number] [place] [address] Oct, [facility] [place] [facility] [address] [id number] [place] [address] Oct, [facility] [place] [facility] [address] [id number] [place] [address] Sep, [facility] [place] [facility] [address] [id number] [place] [address] Sep, [facility] [place] [facility] [address] [id number] [place] [address] Sep, [facility] [place] [facility] [address] [id number] [place] [address] Sep, [facility] [place] [facility] [address] [id number] [place] [address] Sep, [facility] [place] [facility] [address] [id number] [place] [address] Sep, [facility] [place] [facility] [address] [id number] [place] [address] Sep, [facility] [place] [facility] [address] [id number] [place] [address] Sep, [facility] [place] [facility] [address] [id number] [place] [address] Sep, [facility] [place] [facility] [address] [id number] [place] [address] Sep, [facility] [place] [facility] [address] [id number] [place] [address] Sep, [facility] [place] [facility] [address] [id number] [place] [address] Sep, [facility] [place] [facility] [address] [id number] [place] [address] Sep, [facility] [place] [facility] [address] [id number] [place] [address] Sep, [facility] [place] [facility] [address] [id number] [place] [address] August, [facility] [place] [facility] [address] [id number] [place] [address] August, [facility] [place] [facility] [address] [id number] [place] [address] August, [facility] [place] [facility] [address] [id number] [place] [address] August, [facility] [place] [facility] [address] [id number] [place] [address] Jul, [facility] [place] [facility] [address] [id number] [place] [address] Jul, [facility] [place] [facility] [address] [id number] [place] [address] Jul, [facility] [place] [facility] [address] [id number] [place] [address] Jul, [facility] [place] [facility] [address] [id number] [place] [address] Jun, [facility] [place] [facility] [address] [id number] [place] [address] Jun, [facility] [place] [facility] [address] [id number] [place] [address] May, [facility] [place] [facility] [address] [id number] [place] [address] May, [facility] [place] [facility] [address] [id number] [place] [address] May, [facility] [place] [facility] [address] [id number] [place] [address] May, [facility] [place] [facility] [address] [id number] [place] [address] May, [facility] [place] [facility] [address] [id number] [place] [address] May, [facility] [place] [facility] [address] [id number] [place] [address] May, [facility] [place] [facility] [address] [id number] [place] [address] May, [facility] [place] [facility] [address] [id number] [place] [address] May, [facility] [place] [facility] [address] [id number] [place] [address] Apr, [facility] [place] [facility] [address] [id number] [place] [address] Apr, [facility] [place] [facility] [address] [id number] [place] [address] Apr, [facility] [place] [facility] [address] [id number] [place] [address] Apr, [facility] [place] [facility] [address] [id number] [place] [address] Apr, [facility] [place] [facility] [address] [id number] [place] [address] Mar, [facility] [place] [facility] [address] [id number] [place] [address] Mar, [facility] [place] [facility] [address] [id number] [place] [address] Feb, [facility] [place] [facility] [address] [id number] [place] [address] Feb, [facility] [place] [facility] [address] [id number] [place] [address] Feb, [facility] [place] [facility] [address] [id number] [place] [address] Feb, [facility] [place] [facility] [address] [id number] [place] [address] Feb, [facility] [place] [facility] [address] [id number] [place] [address] Feb, [facility] [place] [facility] [address] [id number] [place] [address] Feb, [facility] [place] [facility] [address] [id number] [place] [address] Feb, [facility] [place] [facility] [address] [id number] [place] [address] Feb, [facility] [place] [facility] [address] [id number] [place] [address] Jan, [facility] [place] [facility] [address] [id number] [place] [address] Jan, [facility] [place] [facility] [address] [id number] [place] [address] Jan, [facility] [place] [facility] [address] [id number] [place] [address] Jan, [facility] [place] [facility] [address] [id number] [place] [address] Jan, [facility] [place] [facility] [address] [id number] [place] [address] Dec, [facility] [place] [facility] [address] [id number] [place] [address] Dec, [facility] [place] [facility] [address] [id number] [place] [address] Nov, [facility] [place] [facility] [address] [id number] [place] [address] Nov, [facility] [place] [facility] [address] [id number] [place] [address] Oct, [facility] [place] [facility] [address] [id number] [place] [address] Oct, [facility] [address] [id number] [place] [address] Oct, [facility] [address] [id number] [place] [address] Sep, [facility] [address] [id number] [place] [address] Sep, [facility] [address] [id number] [place] [address] Sep, [facility] [address] [id number] [place] [address] August, [facility] [address] [id number] [place] [address] August, [facility] [address] [id number] [place] [address] August, [facility] [address] [id number] [place] [address] August, [facility] [address] [id number] [place] [address] Jul, [facility] [address] [id number] [place] [address] Jun, [facility] [address] [id number] [place] [address] Jun, [facility] [address] [id number] [place] [address] Jun, [facility] [address] [id number] [place] [address] May, [facility] [address] [id number] [place] [address] May, [facility] [address] [id number] [place] [address] May, [facility] [address] [id number] [place] [address] May, [facility] [place] [facility] [address] [id number] [place] [address] Apr, [facility] [address] [id number] [place] [address] Apr, [facility] [place] [facility] [address] [id number] [place] [address] Apr, [facility] [address] [id number] [place] [address] Apr, [facility] [address] [id number] [place] [address] Apr, [facility] [address] [id number] [place] [address] Mar, [facility] [place] [facility] [address] [id number] [place] [address] Mar, [facility] [place] [facility] [address] [id number] [place] [address] Mar, [facility] [place] [facility] [address] [id number] [place] [address] Mar, [facility] [place] [facility] [address] [id number] [place] [address] Mar, [facility] [place] [facility] [address] [id number] [place] [address] Mar, [facility] [place] [facility] [address] [id number] [place] [address] Mar, [facility] [place] [facility] [address] [id number] [place] [address] Feb, [facility] [place] [facility] [address] [id number] [place] [address] Feb, [facility] [place] [facility] [address] [id number] [place] [address] Feb, [facility] [place] [facility] [address] [id number] [place] [address] Feb, [facility] [place] [facility] [address] [id number] [place] [address] Feb, [facility] [place] [facility] [address] [id number] [place] [address] Feb, [facility] [place] [facility] [address] [id number] [place] [address] Feb, [facility] [place] [facility] [address] [id number] [place] [address] Feb, [facility] [place] [facility] [address] [id number] [place] [address] Jan, [facility] [place] [facility] [address] [id number] [place] [address] Jan, [facility] [place] [facility] [address] [id number] [place] [address] Jan, [facility] [place] [facility] [address] [id number] [place] [address] Jan, [facility] [place] [facility] [address] [facility] [id number] [place] [address] 27 Dec, 2011 [facility] [place] [facility] [address] [id number] [place] [address] 25 Dec, 2011 [facility] [place] [facility] [address] [id number] [place] [address] 18 Sep2011 [facility] [place] [facility] [address] [id number] [place] [address] 13 Dec, 2011 [facility] [place] [facility] [address] [facility] [id number] [place] [address] 11 Dec, 2011 [facility] [place] [facility] [address] [facility] [id number] [place] [address] Oct, [facility] [place] [facility] [address] [id number] [place] [address] Oct, [facility] [place] [facility] [address] [id number] [place] [address] Sep, [facility] [place] [facility] [address] [id number] [place] [address] Sep, [facility] [place] [facility] [address] [id number] [place] [address] August, [facility] [place] [facility] [address] [id number] [place] [address] August, [facility] [place] [facility] [address] [id number] [place] [address] Jul, [facility] [place] [facility] [address] [id number] [place] [address] Jun, [facility] [place] [facility] [address] [id number] [place] [address] Jun, [facility] [place] [facility] [address] [id number] [place] [address] Jun, [facility] [place] [facility] [address] [id number] [place] [address] Jun, [facility] [place] [facility] [address] [id number] [place] [address] Jun, [facility] [place] [facility] [address] [id number] [place] [address] May, [facility] [place] [facility] [address] [id number] [place] [address] May, [facility] [place] [facility] [address] [id number] [place] [address] May, [facility] [place] [facility] [address] [id number] [place] [address] 14 May, 2011 [facility] [place] [facility] [address] [id number] [place] [address] 13 May, 2011 [facility] [address] [id number] [place] [address] May, [facility] [place] [facility] [address] [id number] [place] [address] May, [facility] [place] [facility] [address] [id number] [place] [address] May, [facility] [place] [facility] [address] [id number] [place] [address] Apr, [facility] [address] [id number] [place] [address] Mar, [facility] [place] [facility] [address] [id number] [place] [address] Mar, [facility] [address] [facility] [id number] [place] [address] Mar, [facility] [place] [facility] [address] [facility] [id number] [place] [address] Mar, [facility] [place] [facility] [address] [facility] [id number] [place] [address] Mar, [facility] [place] [facility] [address] [facility] [id number] [place] [address] Jan, [facility] [place] [facility] [address] [facility] [id number] [place] [address] Jan, [facility] [place] [facility] [address] [id number] [place] [address] Jan, [facility] [place] [facility] [address] [id number] [place] [address] August, [facility] [place] [facility] [address] [facility] [id number] [place] [address] Mar, [facility] [place] [facility] [address] [facility] [id number] [place] [address] Feb, [facility] [place] [facility] [address] [facility] [id number] [place] [address] Jan, [facility] [address] [facility] [id number] [place] [address] Jan, IMMUNIZATIONS No Known Immunizations SOCIAL HISTORY [...]
--- OUTSIDE RECORDS SUMMARY | 2018-09-17 23:26 | XMS REPORT ---
Author Author KATIE HUDSON Organization [facility] Address [address] [place] [address] Care Team Providers Care Drier Operator Name Role Phone KATIE HUDSON Unavailable PROBLEMS Type Condition ICD9-CM Code FRW22-KC Code Onset Dates Condition Status SNOMED Code Problem CAD (coronary artery disease) I25.10 Active 69832322 Problem Arthritis M19.90 Active 2823190 Problem Diabetes E11.9 Active 02106543 Problem Essential hypertension I10 Active 04804353 Problem Pharyngeal dysphagia R13.13 Active 93171923475601 Problem Hyperlipemia E78.5 Active 69302838 Problem Morbid obesity E66.01 Active 215424379 Problem Osteoarthritis of knees, bilateral M17.0 Active 517531778 Problem Pharyngoesophageal dysphagia R13.14 Active 83910641 ALLERGIES Substance Reaction Event Type Date Status contrast hives Non Drug Allergy Sep, Active ENCOUNTERS Encounter Location Date Diagnosis [place] [address] [address] Oct, [place] [address] [place] [id number] [place] [address] Sep, Diabetes E11.9 [place] [address] [place] [id number] [place] [address] Sep, Diabetes E11.9 ; Hyperlipemia E78.5 ; CAD (coronary artery disease) I25.10 ; Essential hypertension I10 and BMI 45.0-49.9, adult Z68.42 [facility] [address] [address] Sep, [facility] [address] [place] [id number] [place] [address] August, [place] [address] [place] [address] Jan, Dysuria R30.0 [facility] [address] [address] Jan, Dysuria R30.0 [facility] [address] [place] [id number] [place] [address] Jan, Osteoarthritis of knees, bilateral M17.0 [facility] [address] [place] [id number] [place] [address] Nov, Dysuria R30.0 [facility] [address] [address] Oct, Blood in urine R31.9 ; Dysuria R30.0 ; Pharyngeal dysphagia R13.13 ; Acute cystitis with hematuria N30.01 ; CAD (coronary artery disease) I25.10 and Diabetes E11.9 [facility] [id number] [place] [address] Oct, [facility] [address] [place] [id number] [place] [address] Sep, Arthritis M19.90 ; Blood in urine R31.9 ; Diabetes E11.9 ; Acute cystitis with hematuria N30.01 and Pharyngoesophageal dysphagia R13.14 [facility] [address] [place] [id number] [place] [address] Sep, Osteoarthritis of knees, bilateral M17.0 [facility] [address] [place] [address] [id number] [place] [address] Sep, Osteoarthritis of knees, bilateral M17.0 [facility] [address] [place] [id number] [place] [address] August, Arthritis M19.90 [facility] [address] [place] [id number] [place] [address] Jul, Arthritis M19.90 [facility] [address] [place] [id number] [place] [address] Jun, Arthritis M19.90 [facility] [id number] [place] [address] Jun, [facility] [address] [place] [id number] [place] [address] Jun, [facility] [address] [place] [address] [id number] [place] [address] May, Diabetes E11.9 ; Dysuria R30.0 and Arthritis M19.90 [facility] [address] [place] [id number] [place] [address], [place] [address] Apr, [facility] [address] [place] [id number] [place] [address] Apr, Arthritis M19.90 [facility] [address] [place] [id number] [place] [address] Mar, Arthritis M19.90 [facility] [address] [place] [id number] [place] [address] Feb, [facility] [address] [place] [id number] [place] [address] Jan, [facility] [id number] [place] [address] Dec, Diabetes E11.9 and Arthritis M19.90 [facility] [address] [place] [id number] [place] [address] Dec, [facility] [address] [place] [address] Nov, Arthritis M19.90 [facility] [address] [place] [address] [id number] [address] Nov, [facility] [address] [address] Oct, Arthritis M19.90 [facility] [id number] [address] 10 Sep, 2015 Osteoarthritis of knees, bilateral M17.0 [facility] [address] [place] [id number] [place] [address] 09 Sep, 2015 Osteoarthritis of knees, bilateral M17.0 [facility] [address] [place] [address] August, Arthritis M19.90 [facility] [address] [place] [id number] [place] [address] August, [facility] [address] [place] [id number] [place] [address] Jul, Hyperlipemia E78.5 [place] [address] [place] [id number] [place] [address] Jul, Encounter for well woman exam Z01.419 ; Morbid obesity E66.01 ; Encounter for screening for malignant neoplasm of cervix Z12.4 and Encounter for screening mammogram for breast cancer Z12.31 [place] [address] [place] [address] Jul, Arthritis M19.90 ; Diabetes E11.9 ; Blood in urine R31.9 and UTI (urinary tract infection) N39.0 [place] [address] [place] [address] Jul, [facility] [address] [place] [address] Jun, Arthritis M19.90 [facility] [address] [place] [address] May, Arthritis M19.90 [facility] [address] [place] [id number] [place] [address] May, [facility] [address] [place] [address] Apr, [facility] [address] [place] [id number] [place] [address] Apr, Arthritis M19.90 ; Diabetes E11.9 and Morbid obesity E66.01 [facility] [address] [place] [address] Apr, [facility] [address] [place] [address] Apr, Dyspareunia N94.1 [facility] [address] [place] [id number] [place] [address] 15 Apr, 2015 [facility] [address] [place] [id number] [place] [address] Apr, [facility] [address] [place] [id number] [place] [address] Apr, Osteoarthritis of knees, bilateral M17.0 [facility] [address] [place] [id number] [place] [address] Apr, Diabetes E11.9 and CAD (coronary artery disease) I25.10 [facility] [address] [place] [id number] [place] [address] Mar, [facility] [address] [place] [id number] [place] [address] Feb, [facility] [address] [address] Jan, [facility] [address] [place] [address] Jan, [facility] [address] [address] Jan, [facility] [address] [place] [id number] [place] [address] Jan, Osteoarthritis of knees, bilateral M17.0 [facility] [address] [address] 30 Dec, 2014 [facility] [address] [place] [id number] [address] 17 Dec, 2014 [facility] [address] [id number], [place] [address] Dec, [facility] [address] [id number], [place] [address] Dec, Diabetes mellitus 250.00 and UTI (urinary tract infection) 599.0 [facility] [address] [id number] [place] [address] Dec, [facility] [address] [id number] [place] [address] Nov, [facility] [address] [id number], [place] [address] Oct, [facility] [address] [id number] [place] [address] Oct, [facility] [address] [id number], [place] [address] Oct, [facility] [address] [id number] [place] [address] Oct, [facility] [address] [facility] [id number], [place] [address] Oct, [facility] [address] [id number], [place] [address] Sep, [facility] [address] [id number], [place] [address] August, [facility] [address] [id number] [place] [address] August, [facility] [address] [id number], [place] [address] August, [facility] [address] [id number], [place] [address] Jul, [facility] [address] [id number], [place] [address] 14 Jul, 2014 [facility] [place] [facility] [address] [id number] [place] [address] 13 Jul, 2014 [facility] [place] [facility] [address] [facility] [id number] [place] [address] Jun, [facility] [place] [facility] [address] [facility] [id number] [place] [address] Jun, [facility] [place] [facility] [address] [facility] [id number] [place] [address] Jun, [facility] [place] [facility] [address] [facility] [id number] [place] [address] Jun, [facility] [place] [facility] [address] [facility] [id number] [place] [address] Jun, [facility] [place] [facility] [address] [place] [id number] [place] [address] Jun, [facility] [place] [facility] [address] [facility] [id number] [place] [address] Jun, [facility] [place] [facility] [address] [place] [id number] [place] [address] Jun, [facility] [place] [facility] [address] [place] [id number] [place] [address] May, [facility] [place] [facility] [address] [place] [id number] [place] [address] May, [facility] [place] [facility] [address] [facility] [id number], [place] [address] May, [facility] [place] [facility] [address] [id number] [place] [address] May, [facility] [place] [facility] [address] [facility] [id number], [place] [address] May, [facility] [place] [facility] [address] [facility] [id number], [place] [address] May, [facility] [place] [facility] [address] [id number] [place] [address] May, 2014 [facility] [place] [facility] [address] [id number] [place] [address] May, 2014 [facility] [place] [facility] [address] [id number] [place] [address] May, 2014 [facility] [place] [facility] [address] [id number] [place] [address] May, 2014 [facility] [place] [facility] [address] [id number] [place] [address] May, [facility] [place] [facility] [address] [id number] [place] [address] May, [facility] [place] [facility] [address] [facility] [id number] [place] [address] Apr, [facility] [place] [facility] [address] [id number] [place] [address] Apr, [facility] [place] [facility] [address] [id number] [place] [address] Mar, [facility] [place] [facility] [address] [id number] [place] [address] Mar, [facility] [place] [facility] [address] [id number] [place] [address] Mar, [facility] [place] [facility] [address] [id number] [place] [address] Mar, [facility] [place] [facility] [address] [id number] [place] [address] Mar, [facility] [place] [facility] [address] [id number] [place] [address] 16 Mar, 2014 [facility] [place] [facility] [address] [id number] [place] [address] Feb, [facility] [place] [facility] [address] [id number] [place] [address] Feb, [facility] [place] [facility] [address] [id number] [place] [address] Feb, [facility] [place] [facility] [address] [id number] [place] [address] Feb, [facility] [place] [facility] [address] [id number] [place] [address] Feb, [facility] [place] [facility] [address] [id number] [place] [address] Feb, [facility] [place] [facility] [address] [id number] [place] [address] Feb, [facility] [place] [facility] [address] [id number] [place] [address] Feb, [facility] [place] [facility] [address] [id number] [place] [address] Feb, [facility] [place] [facility] [address] [id number] [place] [address] Jan, [facility] [place] [facility] [address] [id number] [place] [address] Jan, [facility] [place] [facility] [address] [id number] [place] [address] Jan, [facility] [place] [facility] [address] [id number] [place] [address] Jan, [facility] [place] [facility] [address] [id number] [place] [address] Jan, [facility] [place] [facility] [address] [id number] [place] [address] Jan, [facility] [place] [facility] [address] [id number] [place] [address] Jan, [facility] [place] [facility] [address] [id number] [place] [address] Jan, [facility] [place] [facility] [address] [id number] [place] [address] Jan, [facility] [place] [facility] [address] [id number] [place] [address] Jan, [facility] [place] [facility] [address] [id number] [place] [address] Dec, [facility] [place] [facility] [address] [id number] [place] [address] Dec, [facility] [place] [facility] [address] [id number] [place] [address] Dec, [facility] [place] [facility] [address] [id number] [place] [address] Dec, [facility] [place] [facility] [address] [id number] [place] [address] Nov, [facility] [place] [facility] [address] [id number] [place] [address] Nov, [facility] [place] [facility] [address] [id number] [place] [address] Nov, [facility] [place] [facility] [address] [id number] [place] [address] Nov, [facility] [place] [facility] [address] [id number] [place] [address] Nov, [facility] [place] [facility] [address] [id number] [place] [address] Nov, [facility] [place] [facility] [address] [id number] [place] [address] Nov, [facility] [place] [facility] [address] [id number] [place] [address] Nov, [facility] [place] [facility] [address] [id number] [place] [address] Nov, [facility] [place] [facility] [address] [id number] [place] [address] Oct, [facility] [place] [facility] [address] [id number] [place] [address] Oct, [facility] [place] [facility] [address] [id number] [place] [address] Sep, [facility] [place] [facility] [address] [id number] [place] [address] Sep, [facility] [place] [facility] [address] [id number] [place] [address] Sep, [facility] [place] [facility] [address] [id number] [place] [address] Sep, [facility] [place] [facility] [address] [id number] [place] [address] Sep, [facility] [place] [facility] [address] [id number] [place] [address] Sep, [facility] [place] [facility] [address] [id number] [place] [address] Sep, [facility] [place] [facility] [address] [id number] [place] [address] Sep, [facility] [place] [facility] [address] [id number] [place] [address] Sep, [facility] [place] [facility] [address] [id number] [place] [address] Sep, [facility] [place] [facility] [address] [id number] [place] [address] Sep, [facility] [place] [facility] [address] [id number] [place] [address] Sep, [facility] [place] [facility] [address] [id number] [place] [address] Sep, [facility] [place] [facility] [address] [id number] [place] [address] Sep, [facility] [place] [facility] [address] [id number] [place] [address] August, [facility] [address] [id number] [place] [address] August, [facility] [place] [facility] [address] [id number] [place] [address] August, [facility] [address] [id number] [place] [address] August, [facility] [place] [facility] [address] [id number] [place] [address] Jul, [facility] [place] [facility] [address] [id number] [place] [address] Jul, [facility] [place] [facility] [address] [id number] [place] [address] Jul, [facility] [place] [facility] [address] [id number] [place] [address] Jul, [facility] [address] [id number] [place] [address] Jun, [facility] [place] [facility] [address] [id number] [place] [address] Jun, [facility] [address] [id number] [place] [address] May, [facility] [place] [facility] [address] [id number] [place] [address] May, [facility] [place] [facility] [address] [id number] [place] [address] May, [facility] [place] [facility] [address] [id number] [place] [address] May, [facility] [place] [facility] [address] [id number] [place] [address] May, [facility] [place] [facility] [address] [id number] [place] [address] May, [facility] [address] [id number] [place] [address] May, [facility] [place] [facility] [address] [id number] [place] [address] May, [facility] [place] [facility] [address] [id number] [place] [address] May, [facility] [place] [facility] [address] [id number] [place] [address] Apr, [facility] [place] [facility] [address] [id number] [place] [address] Apr, [facility] [place] [facility] [address] [id number] [place] [address] Apr, [facility] [place] [facility] [address] [id number] [place] [address] Apr, [facility] [place] [facility] [address] [id number] [place] [address] Apr, [facility] [place] [facility] [address] [id number] [place] [address] Mar, [facility] [place] [facility] [address] [id number] [place] [address] Mar, [facility] [place] [facility] [address] [id number], [place] [address] Feb, [facility] [place] [facility] [address] [id number], [place] [address] Feb, [facility] [place] [facility] [address] [id number] [place] [address] Feb, [facility] [place] [facility] [address] [id number] [place] [address] Feb, [facility] [place] [facility] [address] [id number] [place] [address] Feb, [facility] [place] [facility] [address] [id number] [place] [address] Feb, [facility] [place] [facility] [address] [id number] [place] [address] Feb, [facility] [place] [facility] [address] [id number] [place] [address] Feb, [facility] [place] [facility] [address] [id number] [place] [address] Feb, [facility] [place] [facility] [address] [id number] [place] [address] Jan, [facility] [place] [facility] [address] [id number] [place] [address] Jan, [facility] [place] [facility] [address] [id number] [place] [address] Jan, [facility] [place] [facility] [address] [id number] [place] [address] Jan, [facility] [place] [facility] [address] [id number] [place] [address] Jan, [facility] [place] [facility] [address] [id number] [place] [address] Dec, [facility] [place] [facility] [address] [id number] [place] [address] Dec, [facility] [place] [facility] [address] [id number] [place] [address] Nov, [facility] [place] [facility] [address] [id number] [place] [address] Nov, [facility] [place] [facility] [address] [id number] [place] [address] Oct, [facility] [place] [facility] [address] [id number] [place] [address] Oct, [facility] [place] [facility] [address] [id number] [place] [address] Oct, [facility] [address] [id number] [place] [address] Sep, [facility] [place] [facility] [address] [id number] [place] [address] Sep, [facility] [place] [facility] [address] [id number] [place] [address] Sep, [facility] [place] [facility] [address] [id number] [place] [address] August, [facility] [address] [id number] [place] [address] August, [facility] [place] [facility] [address] [id number] [place] [address] August, [facility] [place] [facility] [address] [id number] [place] [address] August, [facility] [place] [facility] [address] [id number] [place] [address] Jul, [facility] [place] [facility] [address] [id number] [place] [address] Jun, [facility] [place] [facility] [address] [id number] [place] [address] Jun, [facility] [place] [facility] [address] [id number] [place] [address] Jun, [facility] [place] [facility] [address] [id number] [place] [address] May, [facility] [place] [facility] [address] [id number] [place] [address] May, [facility] [place] [facility] [address] [id number] [place] [address] May, [facility] [place] [facility] [address] [id number] [place] [address] May, [facility] [place] [facility] [address] [id number] [place] [address] 31 Apr, 2012 [facility] [address] [id number] [place] [address] 31 Apr, 2012 [facility] [place] [facility] [address] [id number] [place] [address] 15 Apr, 2012 [facility] [address] [id number] [place] [address] 14 Apr, 2012 [facility] [place] [facility] [address] [address] [id number] [place] [address] 02 Apr, 2012 [facility] [address] [id number] [place] [address] Mar, [facility] [address] [id number] [place] [address] Mar, [facility] [address] [id number] [place] [address] Mar, [facility] [address] [id number] [place] [address] Mar, [facility] [place] [facility] [address] [id number] [place] [address] Mar, [facility] [address] [id number] [place] [address] Mar, [facility] [place] [facility] [address] [id number] [place] [address] Mar, [facility] [place] [facility] [address] [id number] [place] [address] Feb, [facility] [place] [facility] [address] [id number] [place] [address] Feb, [facility] [place] [facility] [address] [id number] [place] [address] Feb, [facility] [place] [facility] [address] [id number] [place] [address] Feb, [facility] [place] [facility] [address] [id number] [place] [address] Feb, [facility] [place] [facility] [address] [id number] [place] [address] Feb, [facility] [place] [facility] [address] [id number] [place] [address] Feb, [facility] [place] [facility] [address] [id number] [place] [address] Feb, [facility] [place] [facility] [address] [id number] [place] [address] Jan, [facility] [place] [facility] [address] [id number] [place] [address] Jan, [facility] [place] [facility] [address] [id number] [place] [address] Jan, [facility] [place] [facility] [address] [id number] [place] [address] Jan, [facility] [place] [facility] [address] [id number] [place] [address] 27 Dec, 2011 [facility] [place] [facility] [address] [id number] [place] [address] 25 Dec, 2011 [facility] [place] [facility] [address] [id number] [place] [address] 18 Dec, 2011 [facility] [place] [facility] [address] [id number], [place] [address] 13 Dec, 2011 [facility] [place] [facility] [address] [id number] [place] [address] 11 Dec, 2011 [facility] [place] [facility] [address] [id number] [place] [address] Oct, [facility] [place] [facility] [address] [id number] [place] [address] 12 Oct, 2011 [facility] [place] [facility] [address] [id number], [place] [address] Sep, [facility] [address] [id number] [place] [address] Sep, [facility] [place] [facility] [address] [id number] [place] [address] August, [facility] [place] [facility] [address] [id number] [place] [address] August, [facility] [place] [facility] [address] [id number] [place] [address] Jul, [facility] [place] [facility] [address] [id number] [place] [address] Jun, [facility] [place] [facility] [address] [id number] [place] [address] Jun, [facility] [address] [id number] [place] [address] Jun, [facility] [place] [facility] [address] [id number] [place] [address] Jun, [facility] [place] [facility] [address] [id number] [place] [address] Jun, [facility] [place] [facility] [address] [id number] [place] [address] May, [facility] [place] [facility] [address] [id number] [place] [address] May, [facility] [place] [facility] [address] [id number] [place] [address] 20 May, 2011 [facility] [place] [facility] [address] [id number] [place] [address] 14 May, 2011 [facility] [place] [facility] [address] [id number] [place] [address] 13 May, 2011 [facility] [place] [facility] [address] [facility] [id number] [place] [address] 03 May, 2011 [facility] [place] [facility] [address] [id number] [place] [address] May, [facility] [place] [facility] [address] [id number] [place] [address] May, [facility] [place] [facility] [address] [id number] [place] [address] Apr, [facility] [address] [id number] [place] [address] Mar, [facility] [address] [id number] [place] [address] Mar, [facility] [place] [facility] [address] [id number] [place] [address] Mar, [facility] [address] [id number] [place] [address] Mar, [facility] [address] [id number] [place] [address] Mar, [facility] [place] [facility] [address] [id number] [place] [address] Jan, [facility] [place] [facility] [address] [id number] [place] [address] Jan, [facility] [place] [facility] [address] [id number] [place] [address] Jan, [facility] [place] [facility] [address] [id number], [place] [address] August, [facility] [place] [facility] [address] [id number] [place] [address] Mar, [facility] [place] [facility] [address] [id number] [place] [address] Feb, [facility] [place] [facility] [address] [id number] [place] [address] 14 Jan, 2010 [facility] [place] [facility] [address] [id number] [place] [address] Jan, IMMUNIZATIONS No Known Immunizations SOCIAL HISTORY Never Assessed REASON FOR VISIT Diabetes-Cait HOLBROOK , PT went to the ER at [facility] on 09/17 due jewell avalos -Curtis HOLBROOK PLAN OF CARE Activity Details Follow Up 4 Months Reason: VITAL SIGNS Height 66 in 2017-10-06 Weight 296 lbs 2017-10-06 Temperature 98.5 degrees Fahrenheit 2017-10-06 Heart Rate 76 bpm 2017-10-06 Respiratory Rate 20 2017-10-06 Oximetry on room air:96 % 2017-10-06 BMI 47.77 kg/m2 2017-10-06 Blood pressure systolic 120 mmHg 2017-10-06 Blood pressure diastolic 72 mmHg 2017-10-06 MEDICATIONS Medication Instructions Dosage Frequency Start Date End Date Duration Status Fluoxetine HCl 40 MG TAKE 2 CAPSULES BY MOUTH DAILY IN THE MORNING 30 Active Lipitor 40 mg Orally Once a day 1 tablet 24h Jul, Active Gabapentin 600 mg Orally 3 times a day 1 tablet 8h 30 Not-Taking Victoza 18 MG/3ML Subcutaneous Once a day 1.8 mg 24h Apr, Active Ibuprofen 800 MG 1 Tablet by Oral route 3 times per day as needed for pain Active Oxybutynin Chloride 5 MG Orally 3 times a day 1 tablet 8h 30 Active Cozaar 50 MG 1 tablet by Oral route 1 time per day for BP- take in PM Active Losartan Potassium 50 TAKE 1 TABLET BY MOUTH ONE TIME PER DAY FOR BLOOD PRESSURE. TAKE IN EVENING 30 Active Amitriptyline HCl 50 mg Orally Once a day 1 tablet 24h 30 Not-Taking BD Pen Needle Short U/F 0 USE WITH VICTOZA DIRECTED 30 Active Metformin HCl 1000 TAKE 1 TABLET BY MOUTH TWICE DAILY 30 Not-Taking Fluoxetine HCl 40 TAKE 2 CAPSULES BY MOUTH DAILY IN THE MORNING 15 Not-Taking Gabapentin 600 MG TAKE ONE TABLET BY MOUTH THREE TIMES DAILY 30 Active Ibuprofen 800 mg Orally 3 times a day 1 tablet 8h 30 Not-Taking Easy Comfort Pen [place] 31G X 8 MM 1 pen needle 24h Apr, Active Metformin HCl 1000 MG TAKE 1 TABLET BY ORAL ROUTE 2 TIMES PER DAY 30 Active Nystatin [id number] UNIT/GM APPLY 3 TIMES PER DAY EXTERNALLY 10 10 Active Amitriptyline HCl 50 MG TAKE 1 TABLET BY ORAL ROUTE 1 TIME PER DAY AT BEDTIME 30 Active Oxybutynin Chloride 5 TAKE 1 TABLET BY MOUTH THREE TIMES DAILY 3 Not-Taking RESULTS No Results PROCEDURES Procedure Date Ordered Result Body Site GLYCATED HEMOGLOBIN TEST October 06, 2017 LAB NOT BILLED BY [facility] October 06, 2017 VENIPUNCT, ROUTINE* October 06, 2017 INSTRUCTIONS MEDICATIONS ADMINISTERED No Known Medications MEDICAL (GENERAL) HISTORY Type Description Date Medical History diabetes mellitus Medical History morbid obesity Medical History hypertension Medical History chronic pain Medical History Anxiety disorder Surgical History cholecystectomy Surgical History x 2 Hospitalization History surgeries Hospitalization History labor and delivery
--- OUTSIDE RECORDS SUMMARY | 2018-09-17 23:27 | XMS REPORT ---
Author Author KATIE HUDSON Organization [facility] Address [address] [place] [address] Care Team Providers Care Communication And Outreach Manager Name Role Phone KATIE HUDSON Unavailable PROBLEMS Type Condition ICD9-CM Code WIA01-DV Code Onset Dates Condition Status SNOMED Code Problem CAD (coronary artery disease) I25.10 Active 08228659 Problem Arthritis M19.90 Active 9336389 Problem Diabetes E11.9 Active 64923394 Problem Essential hypertension I10 Active 34454053 Problem Pharyngeal dysphagia R13.13 Active 81130260704791 Problem Hyperlipemia E78.5 Active 21040184 Problem Morbid obesity E66.01 Active 876169382 Problem Osteoarthritis of knees, bilateral M17.0 Active 199436742 Problem Pharyngoesophageal dysphagia R13.14 Active 03015884 ALLERGIES No Information ENCOUNTERS Encounter Location Date Diagnosis [place] [id number] [place] [address] Oct, [place] [id number] [place] [address] Sep, Diabetes E11.9 [place] [id number] [place] [address] Sep, Diabetes E11.9 ; Hyperlipemia E78.5 ; CAD (coronary artery disease) I25.10 ; Essential hypertension I10 and BMI 45.0-49.9, adult Z68.42 [place] [address] [address] Sep, [place] [id number] [place] [address] August, [place] [address] [address] Jan, Dysuria R30.0 [facility] [id number] [place] [address] Jan, Dysuria R30.0 [facility] [id number] [place] [address] Jan, Osteoarthritis of knees, bilateral M17.0 [place] [id number] [place] [address] 14 Nov, 2016 Dysuria R30.0 [place] [id number] [place] [address] 17 Oct, 2016 Blood in urine R31.9 ; Dysuria R30.0 ; Pharyngeal dysphagia R13.13 ; Acute cystitis with hematuria N30.01 ; CAD (coronary artery disease) I25.10 and Diabetes E11.9 [place] [id number] [place] [address] Oct, [place] [id number] [place] [address] Sep, Arthritis M19.90 ; Blood in urine R31.9 ; Diabetes E11.9 ; Acute cystitis with hematuria N30.01 and Pharyngoesophageal dysphagia R13.14 [place] [id number] [place] [address] 29 Sep, 2016 Osteoarthritis of knees, bilateral M17.0 [place] [id number] [place] [address] Sep, Osteoarthritis of knees, bilateral M17.0 [place] [id number] [place] [address] August, Arthritis M19.90 [place] [id number] [place] [address] Jul, Arthritis M19.90 [place] [id number] [place] [address] Jun, [address]ritis M19.90 [facility] [address], [place] [address] Jun, [facility] [id number] [place] [address] Jun, [facility] [id number] [place] [address] May, Diabetes E11.9 ; Dysuria R30.[address] [facility] [id number] [place] [address], [place] [address] Apr, [facility] [id number] [place] [address] Apr, Arthritis M19.90 [facility] [id number] [place] [address] Mar, Arthritis M19.90 [facility] [id number] [place] [address] Feb, [facility] [id number] [place] [address], [place] [address] Jan, [facility] [id number] [place] [address] Dec, Diabetes E11.[address] [facility] [id number] [place] [address] Dec, [facility] [id number] [place] [address] Nov, Arthritis M19.90 [facility] [address], [place] [address] Nov, [facility] [address], [place] [address] Oct, Ar[address]ritis M19.90 [facility] [id number] [place] [address] Sep, Osteoarthritis of knees, bilateral M17.0 [facility] [address], [place] [address] 09 Sep, 2015 Osteoarthritis of knees, bilateral M17.0 [facility] [id number] [place] [address] August, Arthritis M19.90 [place] [id number] [place] [address] August, [place] [id number] [place] [address] Jul, Hyperlipemia E78.5 [place] [id number] [place] [address] Jul, Encounter for well woman exam Z01.419 ; Morbid obesity E66.01 ; Encounter for screening for malignant neoplasm of cervix Z12.4 and Encounter for screening mammogram for breast cancer Z12.31 [place] [id number] [place] [address] Jul, Arthritis M19.90 ; Diabetes E11.9 ; Blood in urine R31.9 and UTI (urinary tract infection) N39.0 [place] [id number] [place] [address] Jul, [place] [address], [place] [address] Jun, Arthritis M19.90 [place] [id number] [place] [address] May, Arthritis M19.90 [place] [id number] [place] [address] May, [place] [id number] [place] [address] Apr, [place] [id number] [place] [address] Apr, Arthritis M19.90 ; Diabetes E11.9 and Morbid obesity E66.01 [facility] [address], [place] [address] Apr, [facility] [id number] [place] [address] 18 Apr, [address] [facility] [id number] [place] [address] 15 Apr, 2015 [facility] [id number] [place] [address] 15 Apr, 2015 [facility] [id number] [place] [address] Apr, Osteoarthritis of knees, bilateral M17.0 [facility] [id number] [place] [address] Apr, Diabetes E11.9 and CAD (coronary artery disease) I25.10 [facility] [id number] [place] [address] 08 Mar, 2015 [facility] [id number] [place] [address] Feb, [facility] [id number] [place] [address] 30 Jan, 2015 [facility] [id number] [place] [address] Jan, [facility] [id number] [place] [address] Jan, [facility] [id number] [place] [address] Jan, Osteoarthritis of knees, bilateral M17.0 [facility] [id number] [place] [address] [address], [address] [facility] [id number] [place] [address] Dec, [facility] [address] [id number] [place] [address] Dec, [facility] [address] [id number] [place] [address] Dec, Diabetes mellitus 250.00 and UTI (urinary tract infection) 599.0 [facility] [address] [id number] [place] [address] Dec, [facility] [address] [id number] [place] [address] Nov, [facility] [address] [id number] [place] [address] Oct, [facility] [address] [id number] [place] [address] Oct, [facility] [address] [id number] [place] [address] Oct, [facility] [address] [id number] [place] [address] Oct, [facility] [address] [id number] [place] [address] Oct, [facility] [address] [id number] [place] [address] Sep, [facility] [address] [id number] [place] [address] August, [facility] [address] [id number] [place] [address] August, [facility] [address] [id number] [place] [address] August, [facility] [address] [id number] [place] [address] Jul, [facility] [address] [id number] [place] [address] Jul, [facility] [place] [facility] [address] [id number] [place] [address] 13 Jul, 2014 [facility] [place] [facility] [address] [id number] [place] [address] Jun, [facility] [place] [facility] [address] [id number] [place] [address] Jun, [facility] [place] [facility] [address] [id number] [place] [address] Jun, [facility] [place] [facility] [address] [id number] [place] [address] Jun, [facility] [place] [facility] [address] [id number] [place] [address] Jun, [facility] [place] [facility] [address] [id number] [place] [address] Jun, [facility] [place] [facility] [address] [id number] [place] [address] Jun, [facility] [place] [facility] [address] [id number] [place] [address] Jun, [facility] [place] [facility] [address] [id number] [place] [address] May, [facility] [place] [facility] [address] [id number] [place] [address] May, [facility] [place] [facility] [address] [id number] [address] May, [facility] [place] [facility] [address] [id number] [place] [address] May, [facility] [place] [facility] [address] [id number] [place] [address] May, [facility] [place] [facility] [address] [id number] [place] [address] May, [facility] [place] [facility] [address] [id number] [place] [address] May, 2014 [facility] [place] [facility] [address] [id number] [place] [address] May, 2014 [facility] [place] [facility] [address] [id number] [place] [address] May, 2014 [facility] [place] [facility] [address] [id number] [place] [address] May, 2014 [facility] [place] [facility] [address] [id number] [place] [address] May, 2014 [facility] [place] [facility] [address] [id number] [place] [address] May, 2014 [facility] [place] [facility] [address] [facility] [id number] [place] [address] Apr, [facility] [place] [facility] [address] [facility] [id number] [place] [address] Apr, [facility] [place] [facility] [address] [id number] [place] [address] Mar, [facility] [place] [facility] [address] [id number] [place] [address] Mar, [facility] [place] [facility] [address] [facility] [id number] [place] [address] Mar, [facility] [place] [facility] [address] [id number] [place] [address] Mar, [facility] [place] [facility] [address] [id number] [place] [address] Mar, [facility] [place] [facility] [address] [id number] [place] [address] Mar, [facility] [place] [facility] [address] [id number] [place] [address] Feb, [facility] [place] [facility] [address] [id number] [place] [address] Feb, [facility] [place] [facility] [address] [id number] [place] [address] Feb, [facility] [place] [facility] [address] [id number] [place] [address] Feb, [facility] [place] [facility] [address] [id number] [place] [address] Feb, [facility] [place] [facility] [address] [id number] [place] [address] Feb, [facility] [place] [facility] [address] [id number] [place] [address] Feb, [facility] [place] [facility] [address] [id number] [place] [address] Feb, [facility] [place] [facility] [address] [id number] [place] [address] Feb, [facility] [place] [facility] [address] [id number] [place] [address] Jan, [facility] [place] [facility] [address] [id number] [place] [address] Jan, [facility] [place] [facility] [address] [id number] [place] [address] Jan, [facility] [place] [facility] [address] [id number] [place] [address] Jan, [facility] [place] [facility] [address] [id number] [address] Jan, [facility] [place] [facility] [address] [id number] [place] [address] Jan, [facility] [place] [facility] [address] [id number] [place] [address] Jan, [facility] [place] [facility] [address] [id number] [place] [address] Jan, [facility] [place] [facility] [address] [id number] [place] [address] Jan, [facility] [place] [facility] [address] [id number] [place] [address] Jan, [facility] [place] [facility] [address] [id number] [place] [address] Dec, [facility] [place] [facility] [address] [id number] [place] [address] Dec, [facility] [place] [facility] [address] [id number] [place] [address] Dec, [facility] [place] [facility] [address] [id number] [place] [address] Dec, [facility] [place] [facility] [address] [id number] [place] [address] Nov, [facility] [place] [facility] [address] [id number] [place] [address] Nov, [facility] [place] [facility] [address] [id number] [place] [address] Nov, [facility] [place] [facility] [address] [id number] [place] [address] Nov, [facility] [place] [facility] [address] [id number] [place] [address] Nov, [facility] [place] [facility] [address] [id number] [place] [address] Nov, [facility] [place] [facility] [address] [id number] [place] [address] Nov, [facility] [place] [facility] [address] [id number] [place] [address] Nov, [facility] [place] [facility] [address] [id number] [place] [address] Nov, [facility] [place] [facility] [address] [id number] [place] [address] Oct, [facility] [place] [facility] [address] [id number] [place] [address] Oct, [facility] [place] [facility] [address] [id number] [place] [address] Sep, [facility] [place] [facility] [address] [id number] [place] [address] Sep, [facility] [place] [facility] [address] [id number] [place] [address] Sep, [facility] [place] [facility] [address] [id number] [place] [address] Sep, [facility] [place] [facility] [address] [id number] [place] [address] Sep, [facility] [place] [facility] [address] [id number] [place] [address] Sep, [facility] [place] [facility] [address] [id number] [place] [address] Sep, [facility] [place] [facility] [address] [id number] [place] [address] Sep, [facility] [place] [facility] [address] [id number] [place] [address] Sep, [facility] [place] [facility] [address] [id number] [place] [address] Sep, [facility] [place] [facility] [address] [id number] [place] [address] Sep, [facility] [place] [facility] [address] [id number] [place] [address] Sep, [facility] [place] [facility] [address] [id number] [place] [address] Sep, [facility] [place] [facility] [address] [id number] [place] [address] Sep, [facility] [place] [facility] [address] [id number] [place] [address] August, [facility] [place] [facility] [address] [id number] [place] [address] August, [facility] [place] [facility] [address] [id number] [place] [address] August, [facility] [place] [facility] [address] [facility] [id number] [place] [address] August, [facility] [place] [facility] [address] [id number] [place] [address] Jul, [facility] [place] [facility] [address] [id number] [place] [address] Jul, [facility] [place] [facility] [address] [id number] [place] [address] Jul, [facility] [place] [facility] [address] [facility] [id number] [place] [address] Jul, [facility] [place] [facility] [address] [id number] [place] [address] Jun, [facility] [place] [facility] [address] [id number] [place] [address] Jun, [facility] [place] [facility] [address] [facility] [id number] [place] [address] May, [facility] [place] [facility] [address] [id number] [place] [address] May, [facility] [place] [facility] [address] [id number] [place] [address] May, [facility] [place] [facility] [address] [id number] [place] [address] May, [facility] [place] [facility] [address] [id number] [place] [address] May, [facility] [place] [facility] [address] [id number] [place] [address] May, [facility] [place] [facility] [address] [id number] [place] [address] May, [facility] [place] [facility] [address] [id number] [place] [address] May, [facility] [place] [facility] [address] [id number] [place] [address] May, [facility] [place] [facility] [address] [id number] [place] [address] Apr, [facility] [place] [facility] [address] [id number] [place] [address] Apr, [facility] [place] [facility] [address] [id number] [place] [address] Apr, [facility] [place] [facility] [address] [id number] [place] [address] Apr, [facility] [place] [facility] [address] [id number] [place] [address] Apr, [facility] [place] [facility] [address] [id number] [place] [address] Mar, [facility] [place] [facility] [address] [id number] [place] [address] Mar, [facility] [place] [facility] [address] [id number] [place] [address] Feb, [facility] [place] [facility] [address] [id number] [place] [address] Feb, [facility] [place] [facility] [address] [id number] [place] [address] Feb, [facility] [place] [facility] [address] [id number] [place] [address] Feb, [facility] [place] [facility] [address] [id number] [place] [address] Feb, [facility] [place] [facility] [address] [id number] [place] [address] Feb, [facility] [place] [facility] [address] [id number] [place] [address] Feb, [facility] [place] [facility] [address] [id number] [place] [address] Feb, [facility] [place] [facility] [address] [id number] [place] [address] Feb, [facility] [place] [facility] [address] [id number] [place] [address] Jan, [facility] [place] [facility] [address] [id number] [place] [address] Jan, [facility] [place] [facility] [address] [id number] [place] [address] Jan, [facility] [place] [facility] [address] [id number] [place] [address] Jan, [facility] [place] [facility] [address] [id number] [place] [address] Jan, [facility] [place] [facility] [address] [id number] [place] [address] Dec, [facility] [place] [facility] [address] [id number] [place] [address] Dec, [facility] [place] [facility] [address] [id number] [place] [address] Nov, [facility] [place] [facility] [address] [id number], [place] [address] Nov, [facility] [place] [facility] [address] [id number] [place] [address] Oct, [facility] [place] [facility] [address] [id number] [place] [address] Oct, [facility] [place] [facility] [address] [id number] [place] [address] Oct, [facility] [place] [facility] [address] [id number] [place] [address] Sep, [facility] [address] [id number] [place] [address] Sep, [facility] [address] [id number] [place] [address] Sep, [facility] [address] [id number] [place] [address] August, [facility] [address] [id number] [place] [address] August, [facility] [address] [id number] [place] [address] August, [facility] [address] [id number] [place] [address] August, [facility] [address] [id number] [place] [address] Jul, [facility] [address] [id number] [place] [address] Jun, [facility] [address] [id number] [place] [address] Jun, [facility] [address] [id number] [place] [address] Jun, [facility] [address] [id number] [place] [address] May, [facility] [address] [id number] [place] [address] May, [facility] [address] [id number] [place] [address] May, [facility] [address] [id number] [place] [address] May, [facility] [address] [id number] [place] [address] Apr, [facility] [address] [id number] [place] [address] 31 Apr, 2012 [facility] [place] [facility] [address] [id number] [place] [address] 15 Apr, 2012 [facility] [place] [facility] [address] [id number] [place] [address] 14 Apr, 2012 [facility] [place] [facility] [address] [id number] [place] [address] Apr, [facility] [place] [facility] [address] [id number] [place] [address] Mar, [facility] [place] [facility] [address] [id number] [place] [address] Mar, [facility] [place] [facility] [address] [id number] [place] [address] Mar, [facility] [place] [facility] [address] [id number] [place] [address] Mar, [facility] [place] [facility] [address] [id number] [place] [address] Mar, [facility] [place] [facility] [address] [id number] [place] [address] Mar, [facility] [place] [facility] [address] [id number] [place] [address] Mar, [facility] [place] [facility] [address] [id number], [place] [address] Feb, [facility] [place] [facility] [address] [id number] [place] [address] Feb, [facility] [place] [facility] [address] [id number] [place] [address] Feb, [facility] [place] [facility] [address] [id number] [place] [address] Feb, [facility] [place] [facility] [address] [id number] [place] [address] Feb, [facility] [place] [facility] [address] [id number] [place] [address] Feb, [facility] [place] [facility] [address] [id number] [place] [address] Feb, [facility] [place] [facility] [address] [facility] [id number] [place] [address] Feb, [facility] [place] [facility] [address] [id number] [place] [address] Jan, [facility] [place] [facility] [address] [id number] [place] [address] Jan, [facility] [place] [facility] [address] [id number] [place] [address] Jan, [facility] [place] [facility] [address] [id number] [place] [address] Jan, [facility] [place] [facility] [address] [id number] [place] [address] 27 Dec, 2011 [facility] [place] [facility] [address] [id number] [place] [address] 25 Dec, 2011 [facility] [place] [facility] [address] [facility] [id number] [place] [address] 18 Dec, 2011 [facility] [place] [facility] [address] [id number] [place] [address] 13 Dec, 2011 [facility] [place] [facility] [address] [id number] [place] [address] 11 Dec, 2011 [facility] [place] [facility] [address] [id number] [place] [address] Oct, [facility] [place] [facility] [address] [facility] [id number] [place] [address] Oct, [facility] [place] [facility] [address] [facility] [id number] [place] [address] Sep, [facility] [place] [facility] [address] [id number] [place] [address] Sep, [facility] [place] [facility] [address] [id number] [place] [address] August, [facility] [place] [facility] [address] [id number] [place] [address] August, [facility] [place] [facility] [address] [id number] [place] [address] Jul, [facility] [place] [facility] [address] [id number] [place] [address] Jun, [facility] [place] [facility] [address] [id number] [place] [address] Jun, [facility] [place] [facility] [address] [id number] [place] [address] Jun, [facility] [place] [facility] [address] [id number] [place] [address] Jun, [facility] [place] [facility] [address] [id number] [place] [address] Jun, [facility] [place] [facility] [address] [id number] [place] [address] May, [facility] [place] [facility] [address] [id number] [place] [address] May, [facility] [place] [facility] [address] [id number] [place] [address] 20 May, 2011 [facility] [place] [facility] [address] [id number] [place] [address] 14 May, 2011 [facility] [place] [facility] [address] [id number] [place] [address] 13 May, 2011 [facility] [place] [facility] [address] [id number] [place] [address] 03 May, 2011 [facility] [place] [facility] [address] [id number], [place] [address] May, [facility] [address] [facility] [id number] [place] [address] May, [facility] [address] [facility] [id number], [place] [address] Apr, [facility] [address] [facility] [id number] [place] [address] Mar, [facility] [address] [facility] [id number] [place] [address] Mar, [facility] [address] [facility] [id number] [place] [address] Mar, [facility] [address] [facility] [id number] [place] [address] Mar, [facility] [address] [id number], [place] [address] Mar, [facility] [address] [facility] [id number], [place] [address] Jan, [facility] [address] [id number], [place] [address] Jan, [facility] [address] [id number], [place] [address] Jan, [facility] [address] [id number], [place] [address] August, [facility] [address] [facility] [id number], [place] [address] Mar, [facility] [address] [facility] [id number], [place] [address] Feb, [facility] [address] [facility] [id number], [place] [address] 14 Jan, 2010 [facility] [address] [id number], [place] [address] Jan, IMMUNIZATIONS No Known Immunizations SOCIAL HISTORY Never Assessed REASON FOR VISIT Refill request PLAN OF CARE VITAL SIGNS MEDICATIONS Medication Instructions Dosage Frequency Start Date End Date Duration Status Gabapentin 600 MG Orally 3 times a day 1 tablet 8h Active Victoza 18 MG/3ML Subcutaneous Once a day 1.8 mg 24h Apr, Active Lipitor 40 mg Orally Once a day 1 tablet 24h Jul, Active Easy Comfort Pen Paradise 31G X 8 MM 1 pen needle 24h Apr, Active Ibuprofen 800 MG Orally 3 times a day 1 tablet 8h Active Oxybutynin Chloride 5 mg Orally 3 times a day 1 tablet 8h 30 Active Nystatin 050017 UNIT/GM APPLY 3 TIMES PER DAY EXTERNALLY 10 10 Active Amitriptyline HCl 50 mg Orally Once a day 1 tablet 24h 30 Active Metformin HCl 1000 MG Orally 2 times a day 1 tablet 12h 30 Active BD Pen Needle Short U/F 0 USE WITH VICTOZA DIRECTED 30 Active Fluoxetine HCl 40 mg Orally Once a day 2 capsule 24h 30 Active Cozaar 50 mg Orally Once a day 1 tablet 24h Active RESULTS No Results PROCEDURES No Known procedures INSTRUCTIONS MEDICATIONS ADMINISTERED No Known Medications MEDICAL (GENERAL) HISTORY Type Description Date Medical History diabetes mellitus Medical History morbid obesity Medical History hypertension Medical History chronic pain Medical History Anxiety disorder Surgical History cholecystectomy Surgical History x 2 Hospitalization History surgeries Hospitalization History labor and delivery
--- OUTSIDE RECORDS SUMMARY | 2018-09-17 23:28 | XMS REPORT ---
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 Name Role Phone KATIE HUDSON Unavailable PROBLEMS Type Condition ICD9-CM Code ADD87-AR Code Onset Dates Condition Status SNOMED Code Problem CAD (coronary artery disease) I25.10 Active 40620170 Problem Arthritis M19.90 Active 9365857 Problem Diabetes E11.9 Active 64303093 Problem Essential hypertension I10 Active 30250792 Problem Pharyngeal dysphagia R13.13 Active 73595410338893 Problem Hyperlipemia E78.5 Active 02405118 Problem Morbid obesity E66.01 Active 120677418 Problem Osteoarthritis of knees, bilateral M17.0 Active 815712730 Problem Pharyngoesophageal dysphagia R13.14 Active 03758393 ALLERGIES No Information ENCOUNTERS Encounter Location Date Diagnosis [place] [id number] [place] [address] Oct, [place] [id number] [place] [address] Sep, Diabetes E11.9 [facility] [facility] [id number] [place] [address] Sep, Diabetes E11.9 ; Hyperlipemia E78.5 ; CAD (coronary artery disease) I25.10 ; Essential hypertension I10 and BMI 45.0-49.9, adult Z68.42 [place] [address] [address] Sep, [place] [id number] [place] [address] August, [place] [address] [address] Jan, Dysuria R30.0 [facility] [id number] [place] [address] Jan, Dysuria R30.0 [facility] [id number] [place] [address] Jan, Osteoarthritis of knees, bilateral M17.0 [facility] [id number] [place] [address] 14 Nov, 2016 Dysuria R30.0 [facility] [id number] [place] [address] 17 Oct, 2016 Blood in urine R31.9 ; Dysuria R30.0 ; Pharyngeal dysphagia R13.13 ; Acute cystitis with hematuria N30.01 ; CAD (coronary artery disease) I25.10 and Diabetes E11.9 [place] [id number] [place] [address] Oct, [place] [id number] [place] [address] Sep, Arthritis M19.90 ; Blood in urine R31.9 ; Diabetes E11.9 ; Acute cystitis with hematuria N30.01 and Pharyngoesophageal dysphagia R13.14 [place] [id number] [place] [address] 29 Sep, 2016 Osteoarthritis of knees, bilateral M17.0 [place] [id number] [place] [address] Sep, Osteoarthritis of knees, bilateral M17.0 [place] [id number] [place] [address] August, Arthritis M19.90 [facility] [id number] [place] [address] Jul, Arthritis M19.90 [place] [id number] [place] [address] Jun, Arthritis M19.90 [facility] [address] [address] Jun, [facility] [id number] [place] [address] Jun, [facility] [id number] [place] [address] May, Diabetes E11.9 ; Dysuria R30.0 and Arthritis M19.90 [facility] [id number] [place] [address], [place] [address] Apr, [facility] [id number] [place] [address] Apr, Arthritis M19.90 [facility] [id number] [place] [address] Mar, Arthritis M19.90 [facility] [id number] [place] [address] Feb, [facility] [id number] [place] [address], [place] [address] Jan, [facility] [id number] [place] [address] Dec, Diabetes E11.9 and Arthritis M19.90 [facility] [id number] [place] [address] Dec, [facility] [id number] [place] [address] Nov, Arthritis M19.90 [facility] [address] [address] Nov, [facility] [address] [address] Oct, Arthritis M19.90 [facility] [id number] [place] [address] Sep, Osteoarthritis of knees, bilateral M17.0 [facility] [address] [address] 09 Sep, 2015 Osteoarthritis of knees, bilateral M17.0 [facility] [id number] [place] [address] August, Arthritis M19.90 [place] [id number] [place] [address] August, [place] [id number] [place] [address] Jul, Hyperlipemia E78.5 [place] [id number] [place] [address] Jul, Encounter for well woman exam Z01.419 ; Morbid obesity E66.01 ; Encounter for screening for malignant neoplasm of cervix Z12.4 and Encounter for screening mammogram for breast cancer Z12.31 [place] [address] [place] [address] Jul, Arthritis M19.90 ; Diabetes E11.9 ; Blood in urine R31.9 and UTI (urinary tract infection) N39.0 [place] [address] [place] [address] Jul, [place] [address] [address] Jun, Arthritis M19.90 [place] [id number] [place] [address] May, Arthritis M19.90 [place] [address] [place] [address] May, [place] [id number] [place] [address] Apr, [place] [address] [place] [address] Apr, Arthritis M19.90 ; Diabetes E11.9 and Morbid obesity E66.01 [facility] [address] [address] Apr, [facility] [id number] [place] [address] 18 Apr, 2015 Dyspareunia N94.1 [facility] [id number] [place] [address] 15 Apr, 2015 [facility] [id number] [place] [address] 15 Apr, 2015 [facility] [id number] [place] [address] Apr, Osteoarthritis of knees, bilateral M17.0 [facility] [id number] [place] [address] Apr, Diabetes E11.9 and CAD (coronary artery disease) I25.10 [facility] [id number] [place] [address] 08 Mar, 2015 [facility] [id number] [place] [address] Feb, [facility] [id number] [place] [address] 30 Jan, 2015 [facility] [id number] [place] [address] Jan, [facility] [id number] [place] [address] Jan, [facility] [id number] [place] [address] Jan, Osteoarthritis of knees, bilateral M17.0 [facility] [address] [place] [address] 30 Dec, 2014 [facility] [id number] [place] [address] Dec, [facility] [address] [id number] [place] [address] Dec, [facility] [address] [id number] [place] [address] Dec, Diabetes mellitus 250.00 and UTI (urinary tract infection) 599.0 [facility] [address] [id number] [place] [address] Dec, [facility] [address] [id number] [place] [address] Nov, [facility] [address] [id number] [place] [address] Oct, [facility] [address] [id number] [place] [address] Oct, [facility] [address] [id number] [place] [address] Oct, [facility] [address] [id number] [place] [address] Oct, [facility] [address] [id number] [place] [address] Oct, [facility] [address] [id number] [place] [address] Sep, [facility] [address] [id number] [place] [address] August, [facility] [address] [id number] [place] [address] August, [facility] [address] [id number] [place] [address] August, [facility] [address] [id number] [place] [address] Jul, [facility] [address] [id number] [place] [address] Jul, [facility] [place] [facility] [address] [id number] [place] [address] 13 Jul, 2014 [facility] [place] [facility] [address] [id number] [place] [address] Jun, [facility] [place] [facility] [address] [id number] [place] [address] Jun, [facility] [place] [facility] [address] [id number] [place] [address] Jun, [facility] [place] [facility] [address] [id number] [place] [address] Jun, [facility] [place] [facility] [address] [id number] [place] [address] Jun, [facility] [place] [facility] [address] [id number] [place] [address] Jun, [facility] [place] [facility] [address] [id number] [place] [address] Jun, [facility] [place] [facility] [address] [id number] [place] [address] Jun, [facility] [place] [facility] [address] [id number] [place] [address] May, [facility] [place] [facility] [address] [id number] [place] [address] May, [facility] [place] [facility] [address] [id number] [address] May, [facility] [place] [facility] [address] [id number] [place] [address] May, [facility] [place] [facility] [address] [id number] [place] [address] May, [facility] [place] [facility] [address] [id number] [place] [address] May, [facility] [place] [facility] [address] [id number] [place] [address] May, 2014 [facility] [place] [facility] [address] [id number] [place] [address] May, 2014 [facility] [place] [facility] [address] [id number] [place] [address] May, 2014 [facility] [place] [facility] [address] [id number] [place] [address] May, 2014 [facility] [place] [facility] [address] [id number] [place] [address] May, 2014 [facility] [place] [facility] [address] [id number] [place] [address] May, 2014 [facility] [place] [facility] [address] [facility] [id number] [place] [address] Apr, [facility] [place] [facility] [address] [facility] [id number] [place] [address] Apr, [facility] [place] [facility] [address] [id number] [place] [address] Mar, [facility] [place] [facility] [address] [id number] [place] [address] Mar, [facility] [place] [facility] [address] [facility] [id number] [place] [address] Mar, [facility] [place] [facility] [address] [id number] [place] [address] Mar, [facility] [place] [facility] [address] [id number] [place] [address] Mar, [facility] [place] [facility] [address] [id number] [place] [address] Mar, [facility] [place] [facility] [address] [id number] [place] [address] Feb, [facility] [place] [facility] [address] [id number] [place] [address] Feb, [facility] [place] [facility] [address] [id number] [place] [address] Feb, [facility] [place] [facility] [address] [id number] [place] [address] Feb, [facility] [place] [facility] [address] [id number] [place] [address] Feb, [facility] [place] [facility] [address] [id number] [place] [address] Feb, [facility] [place] [facility] [address] [id number] [place] [address] Feb, [facility] [place] [facility] [address] [id number] [place] [address] Feb, [facility] [place] [facility] [address] [id number] [place] [address] Feb, [facility] [place] [facility] [address] [id number] [place] [address] Jan, [facility] [place] [facility] [address] [id number] [place] [address] Jan, [facility] [place] [facility] [address] [id number] [place] [address] Jan, [facility] [place] [facility] [address] [id number] [place] [address] Jan, [facility] [place] [facility] [address] [id number] [address] Jan, [facility] [place] [facility] [address] [id number] [place] [address] Jan, [facility] [place] [facility] [address] [id number] [place] [address] Jan, [facility] [place] [facility] [address] [id number] [place] [address] Jan, [facility] [place] [facility] [address] [id number] [place] [address] Jan, [facility] [place] [facility] [address] [id number] [place] [address] Jan, [facility] [place] [facility] [address] [id number] [place] [address] Dec, [facility] [place] [facility] [address] [id number] [place] [address] Dec, [facility] [place] [facility] [address] [id number] [place] [address] Dec, [facility] [place] [facility] [address] [id number] [place] [address] Dec, [facility] [place] [facility] [address] [id number] [place] [address] Nov, [facility] [place] [facility] [address] [id number] [place] [address] Nov, [facility] [place] [facility] [address] [id number] [place] [address] Nov, [facility] [place] [facility] [address] [id number] [place] [address] Nov, [facility] [place] [facility] [address] [id number] [place] [address] Nov, [facility] [place] [facility] [address] [id number] [place] [address] Nov, [facility] [place] [facility] [address] [id number] [place] [address] Nov, [facility] [place] [facility] [address] [id number] [place] [address] Nov, [facility] [place] [facility] [address] [id number] [place] [address] Nov, [facility] [place] [facility] [address] [id number] [place] [address] Oct, [facility] [place] [facility] [address] [id number] [place] [address] Oct, [facility] [place] [facility] [address] [id number] [place] [address] Sep, [facility] [place] [facility] [address] [id number] [place] [address] Sep, [facility] [place] [facility] [address] [id number] [place] [address] Sep, [facility] [place] [facility] [address] [id number] [place] [address] Sep, [facility] [place] [facility] [address] [id number] [place] [address] Sep, [facility] [place] [facility] [address] [id number] [place] [address] Sep, [facility] [place] [facility] [address] [id number] [place] [address] Sep, [facility] [place] [facility] [address] [id number] [place] [address] Sep, [facility] [place] [facility] [address] [id number] [place] [address] Sep, [facility] [place] [facility] [address] [id number] [place] [address] Sep, [facility] [place] [facility] [address] [id number] [place] [address] Sep, [facility] [place] [facility] [address] [id number] [place] [address] Sep, [facility] [place] [facility] [address] [id number] [place] [address] Sep, [facility] [place] [facility] [address] [id number] [place] [address] Sep, [facility] [place] [facility] [address] [id number] [place] [address] August, [facility] [place] [facility] [address] [id number] [place] [address] August, [facility] [place] [facility] [address] [id number] [place] [address] August, [facility] [place] [facility] [address] [facility] [id number] [place] [address] August, [facility] [place] [facility] [address] [id number] [place] [address] Jul, [facility] [place] [facility] [address] [id number] [place] [address] Jul, [facility] [place] [facility] [address] [id number] [place] [address] Jul, [facility] [place] [facility] [address] [facility] [id number] [place] [address] Jul, [facility] [place] [facility] [address] [id number] [place] [address] Jun, [facility] [place] [facility] [address] [id number] [place] [address] Jun, [facility] [place] [facility] [address] [facility] [id number] [place] [address] May, [facility] [place] [facility] [address] [id number] [place] [address] May, [facility] [place] [facility] [address] [id number] [place] [address] May, [facility] [place] [facility] [address] [id number] [place] [address] May, [facility] [place] [facility] [address] [id number] [place] [address] May, [facility] [place] [facility] [address] [id number] [place] [address] May, [facility] [place] [facility] [address] [id number] [place] [address] May, [facility] [place] [facility] [address] [id number] [place] [address] May, [facility] [place] [facility] [address] [id number] [place] [address] May, [facility] [place] [facility] [address] [id number] [place] [address] Apr, [facility] [place] [facility] [address] [id number] [place] [address] Apr, [facility] [place] [facility] [address] [id number] [place] [address] Apr, [facility] [place] [facility] [address] [id number] [place] [address] Apr, [facility] [place] [facility] [address] [id number] [place] [address] Apr, [facility] [place] [facility] [address] [id number] [place] [address] Mar, [facility] [place] [facility] [address] [id number] [place] [address] Mar, [facility] [place] [facility] [address] [id number] [place] [address] Feb, [facility] [place] [facility] [address] [id number] [place] [address] Feb, [facility] [place] [facility] [address] [id number] [place] [address] Feb, [facility] [place] [facility] [address] [id number] [place] [address] Feb, [facility] [place] [facility] [address] [id number] [place] [address] Feb, [facility] [place] [facility] [address] [id number] [place] [address] Feb, [facility] [place] [facility] [address] [id number] [place] [address] Feb, [facility] [place] [facility] [address] [id number] [place] [address] Feb, [facility] [place] [facility] [address] [id number] [place] [address] Feb, [facility] [place] [facility] [address] [id number] [place] [address] Jan, [facility] [place] [facility] [address] [id number] [place] [address] Jan, [facility] [place] [facility] [address] [id number] [place] [address] Jan, [facility] [place] [facility] [address] [id number] [place] [address] Jan, [facility] [place] [facility] [address] [id number] [place] [address] Jan, [facility] [place] [facility] [address] [id number] [place] [address] Dec, [facility] [place] [facility] [address] [id number] [place] [address] Dec, [facility] [place] [facility] [address] [id number] [place] [address] Nov, [facility] [place] [facility] [address] [id number], [place] [address] Nov, [facility] [place] [facility] [address] [id number] [place] [address] Oct, [facility] [place] [facility] [address] [id number] [place] [address] Oct, [facility] [place] [facility] [address] [id number] [place] [address] Oct, [facility] [place] [facility] [address] [id number] [place] [address] Sep, [facility] [address] [id number] [place] [address] Sep, [facility] [address] [id number] [place] [address] Sep, [facility] [address] [id number] [place] [address] August, [facility] [address] [id number] [place] [address] August, [facility] [address] [id number] [place] [address] August, [facility] [address] [id number] [place] [address] August, [facility] [address] [id number] [place] [address] Jul, [facility] [address] [id number] [place] [address] Jun, [facility] [address] [id number] [place] [address] Jun, [facility] [address] [id number] [place] [address] Jun, [facility] [address] [id number] [place] [address] May, [facility] [address] [id number] [place] [address] May, [facility] [address] [id number] [place] [address] May, [facility] [address] [id number] [place] [address] May, [facility] [address] [id number] [place] [address] Apr, [facility] [address] [id number] [place] [address] 31 Apr, 2012 [facility] [place] [facility] [address] [id number] [place] [address] 15 Apr, 2012 [facility] [place] [facility] [address] [id number] [place] [address] 14 Apr, 2012 [facility] [place] [facility] [address] [id number] [place] [address] Apr, [facility] [place] [facility] [address] [id number] [place] [address] Mar, [facility] [place] [facility] [address] [id number] [place] [address] Mar, [facility] [place] [facility] [address] [id number] [place] [address] Mar, [facility] [place] [facility] [address] [id number] [place] [address] Mar, [facility] [place] [facility] [address] [id number] [place] [address] Mar, [facility] [place] [facility] [address] [id number] [place] [address] Mar, [facility] [place] [facility] [address] [id number] [place] [address] Mar, [facility] [place] [facility] [address] [id number], [place] [address] Feb, [facility] [place] [facility] [address] [id number] [place] [address] Feb, [facility] [place] [facility] [address] [id number] [place] [address] Feb, [facility] [place] [facility] [address] [id number] [place] [address] Feb, [facility] [place] [facility] [address] [id number] [place] [address] Feb, [facility] [place] [facility] [address] [id number] [place] [address] Feb, [facility] [place] [facility] [address] [id number] [place] [address] Feb, [facility] [place] [facility] [address] [facility] [id number] [place] [address] Feb, [facility] [place] [facility] [address] [id number] [place] [address] Jan, [facility] [place] [facility] [address] [id number] [place] [address] Jan, [facility] [place] [facility] [address] [id number] [place] [address] Jan, [facility] [place] [facility] [address] [id number] [place] [address] Jan, [facility] [place] [facility] [address] [id number] [place] [address] 27 Dec, 2011 [facility] [place] [facility] [address] [id number] [place] [address] 25 Dec, 2011 [facility] [place] [facility] [address] [facility] [id number] [place] [address] 18 Dec, 2011 [facility] [place] [facility] [address] [id number] [place] [address] 13 Dec, 2011 [facility] [place] [facility] [address] [id number] [place] [address] 11 Dec, 2011 [facility] [place] [facility] [address] [id number] [place] [address] Oct, [facility] [place] [facility] [address] [facility] [id number] [place] [address] Oct, [facility] [place] [facility] [address] [facility] [id number] [place] [address] Sep, [facility] [place] [facility] [address] [id number] [place] [address] Sep, [facility] [place] [facility] [address] [id number] [place] [address] August, [facility] [place] [facility] [address] [id number] [place] [address] August, [facility] [place] [facility] [address] [id number] [place] [address] Jul, [facility] [place] [facility] [address] [id number] [place] [address] Jun, [facility] [place] [facility] [address] [id number] [place] [address] Jun, [facility] [place] [facility] [address] [id number] [place] [address] Jun, [facility] [place] [facility] [address] [id number] [place] [address] Jun, [facility] [place] [facility] [address] [id number] [place] [address] Jun, [facility] [place] [facility] [address] [id number] [place] [address] May, [facility] [place] [facility] [address] [id number] [place] [address] May, [facility] [place] [facility] [address] [id number] [place] [address] 20 May, 2011 [facility] [place] [facility] [address] [id number] [place] [address] 14 May, 2011 [facility] [place] [facility] [address] [id number] [place] [address] 13 May, 2011 [facility] [place] [facility] [address] [id number] [place] [address] 03 May, 2011 [facility] [place] [facility] [address] [id number], [place] [address] May, [facility] [address] [facility] [id number] [place] [address] May, [facility] [address] [facility] [id number], [place] [address] Apr, [facility] [address] [facility] [id number] [place] [address] Mar, [facility] [address] [facility] [id number] [place] [address] Mar, [facility] [address] [facility] [id number] [place] [address] Mar, [facility] [address] [facility] [id number] [place] [address] Mar, [facility] [address] [id number] [address] Mar, [facility] [address] [facility] [id number], [place] [address] Jan, [facility] [address] [id number], [place] [address] Jan, [facility] [address] [id number], [place] [address] Jan, [facility] [address] [id number], [place] [address] August, [facility] [address] [facility] [id number], [place] [address] Mar, [facility] [address] [facility] [id number], [place] [address] Feb, [facility] [address] [facility] [id number], [place] [address] 14 Jan, 2010 [facility] [address] [id number], [place] [address] Jan, IMMUNIZATIONS No Known Immunizations SOCIAL HISTORY [...]
--- OUTSIDE RECORDS SUMMARY | 2018-09-17 23:29 | XMS REPORT ---
Author Author KATIE HUDSON Organization [facility] Address [address] [place] [address] Care Team Providers Care Certified Coder Name Role Phone KATIE HUDSON Unavailable PROBLEMS Type Condition ICD9-CM Code TAJ16-VA Code Onset Dates Condition Status SNOMED Code Problem CAD (coronary artery disease) I25.10 Active 84068130 Problem Arthritis M19.90 Active 7323207 Problem Diabetes E11.9 Active 77280730 Problem Essential hypertension I10 Active 94087635 Problem Pharyngeal dysphagia R13.13 Active 90167299429701 Problem Hyperlipemia E78.5 Active 15586410 Problem Morbid obesity E66.01 Active 246616610 Problem Osteoarthritis of knees, bilateral M17.0 Active 282524294 Problem Pharyngoesophageal dysphagia R13.14 Active 90430107 ALLERGIES No Information ENCOUNTERS Encounter Location Date Diagnosis [place] [id number] [place] [address] Oct, [place] [id number] [place] [address] Sep, Diabetes E11.9 [place] [id number] [place] [address] Sep, Diabetes E11.9 ; Hyperlipemia E78.5 ; CAD (coronary artery disease) I25.10 ; Essential hypertension I10 and BMI 45.0-49.9, adult Z68.42 [place] [address] [address] Sep, [place] [id number] [place] [address] August, [place] [address] [address] Jan, Dysuria R30.0 [facility] [id number] [place] [address] Jan, Dysuria R30.0 [facility] [id number] [place] [address] Jan, Osteoarthritis of knees, bilateral M17.0 [place] [id number] [place] [address] 14 Nov, 2016 Dysuria R30.0 [place] [id number] [place] [address] 17 Oct, 2016 Blood in urine R31.9 ; Dysuria R30.0 ; Pharyngeal dysphagia R13.13 ; Acute cystitis with hematuria N30.01 ; CAD (coronary artery disease) I25.10 and Diabetes E11.9 [place] [id number] [place] [address] Oct, [place] [id number] [place] [address] Sep, Arthritis M19.90 ; Blood in urine R31.9 ; Diabetes E11.9 ; Acute cystitis with hematuria N30.01 and Pharyngoesophageal dysphagia R13.14 [place] [id number] [place] [address] 29 Sep, 2016 Osteoarthritis of knees, bilateral M17.0 [place] [id number] [place] [address] Sep, Osteoarthritis of knees, bilateral M17.0 [place] [id number] [place] [address] August, Arthritis M19.90 [place] [id number] [place] [address] Jul, Arthritis M19.90 [place] [id number] [place] [address] Jun, Arthritis M19.90 [facility] [address] [address] Jun, [facility] [id number] [place] [address] Jun, [facility] [id number] [place] [address] May, Diabetes E11.9 ; Dysuria R30.0 and Arthritis M19.90 [facility] [id number] [place] [address], [place] [address] Apr, [facility] [id number] [place] [address] Apr, Arthritis M19.90 [facility] [id number] [place] [address] Mar, Arthritis M19.90 [facility] [id number] [place] [address] Feb, [facility] [id number] [place] [address], [place] [address] Jan, [facility] [id number] [place] [address] Dec, Diabetes E11.9 and Arthritis M19.90 [facility] [id number] [place] [address] Dec, [facility] [id number] [place] [address] Nov, Arthritis M19.90 [facility] [address] [address] Nov, [facility] [address], [place] [address] Oct, Arthritis M19.90 [facility] [id number] [place] [address] Sep, Osteoarthritis of knees, bilateral M17.0 [facility] [address] [address] 09 Sep, 2015 Osteoarthritis of knees, bilateral M17.0 [facility] [id number] [place] [address] August, Arthritis M19.90 [place] [id number] [place] [address] August, [place] [id number] [place] [address] Jul, Hyperlipemia E78.5 [place] [id number] [place] [address] Jul, Encounter for well woman exam Z01.419 ; Morbid obesity E66.01 ; Encounter for screening for malignant neoplasm of cervix Z12.4 and Encounter for screening mammogram for breast cancer Z12.31 [place] [id number] [place] [address] Jul, Arthritis M19.90 ; Diabetes E11.9 ; Blood in urine R31.9 and UTI (urinary tract infection) N39.0 [place] [id number] [place] [address] Jul, [place] [address] [address] Jun, Arthritis M19.90 [place] [id number] [place] [address] May, Arthritis M19.90 [place] [id number] [place] [address] May, [place] [id number] [place] [address] Apr, [place] [id number] [place] [address] Apr, Arthritis M19.90 ; Diabetes E11.9 and Morbid obesity E66.01 [facility] [address], [place] [address] Apr, [facility] [id number] [place] [address] 18 Apr, 2015 Dyspareunia N94.1 [facility] [id number] [place] [address] 15 Apr, 2015 [facility] [id number] [place] [address] 15 Apr, 2015 [facility] [id number] [place] [address] Apr, Osteoarthritis of knees, bilateral M17.0 [facility] [id number] [place] [address] Apr, Diabetes E11.9 and CAD (coronary artery disease) I25.10 [facility] [id number] [place] [address] 08 Mar, 2015 [facility] [id number] [place] [address] Feb, [facility] [id number] [place] [address] 30 Jan, 2015 [facility] [id number] [place] [address] Jan, [facility] [id number] [place] [address] Jan, [facility] [id number] [place] [address] Jan, Osteoarthritis of knees, bilateral M17.0 [facility] [id number] [place] [address] 30 Dec, 2014 [facility] [id number] [place] [address] Dec, [facility] [address] [id number] [place] [address] Dec, [facility] [address] [id number] [place] [address] Dec, Diabetes mellitus 250.00 and UTI (urinary tract infection) 599.0 [facility] [address] [id number] [place] [address] Dec, [facility] [address] [id number] [place] [address] Nov, [facility] [address] [id number] [place] [address] Oct, [facility] [address] [id number] [place] [address] Oct, [facility] [address] [id number] [place] [address] Oct, [facility] [address] [id number] [place] [address] Oct, [facility] [address] [id number] [place] [address] Oct, [facility] [address] [id number] [place] [address] Sep, [facility] [address] [id number] [place] [address] August, [facility] [address] [id number] [place] [address] August, [facility] [address] [id number] [place] [address] August, [facility] [address] [id number] [place] [address] Jul, [facility] [address] [id number] [place] [address] Jul, [facility] [place] [facility] [address] [id number] [place] [address] 13 Jul, 2014 [facility] [place] [facility] [address] [id number] [place] [address] Jun, [facility] [place] [facility] [address] [id number] [place] [address] Jun, [facility] [place] [facility] [address] [id number] [place] [address] Jun, [facility] [place] [facility] [address] [id number] [place] [address] Jun, [facility] [place] [facility] [address] [id number] [place] [address] Jun, [facility] [place] [facility] [address] [id number] [place] [address] Jun, [facility] [place] [facility] [address] [id number] [place] [address] Jun, [facility] [place] [facility] [address] [id number] [place] [address] Jun, [facility] [place] [facility] [address] [id number] [place] [address] May, [facility] [place] [facility] [address] [id number] [place] [address] May, [facility] [place] [facility] [address] [id number] [address] May, [facility] [place] [facility] [address] [id number] [place] [address] May, [facility] [place] [facility] [address] [id number] [place] [address] May, [facility] [place] [facility] [address] [id number] [place] [address] May, [facility] [place] [facility] [address] [id number] [place] [address] May, 2014 [facility] [place] [facility] [address] [id number] [place] [address] May, 2014 [facility] [place] [facility] [address] [id number] [place] [address] May, 2014 [facility] [place] [facility] [address] [id number] [place] [address] May, 2014 [facility] [place] [facility] [address] [id number] [place] [address] May, 2014 [facility] [place] [facility] [address] [id number] [place] [address] May, 2014 [facility] [place] [facility] [address] [facility] [id number] [place] [address] Apr, [facility] [place] [facility] [address] [facility] [id number] [place] [address] Apr, [facility] [place] [facility] [address] [id number] [place] [address] Mar, [facility] [place] [facility] [address] [id number] [place] [address] Mar, [facility] [place] [facility] [address] [facility] [id number] [place] [address] Mar, [facility] [place] [facility] [address] [id number] [place] [address] Mar, [facility] [place] [facility] [address] [id number] [place] [address] Mar, [facility] [place] [facility] [address] [id number] [place] [address] Mar, [facility] [place] [facility] [address] [id number] [place] [address] Feb, [facility] [place] [facility] [address] [id number] [place] [address] Feb, [facility] [place] [facility] [address] [id number] [place] [address] Feb, [facility] [place] [facility] [address] [id number] [place] [address] Feb, [facility] [place] [facility] [address] [id number] [place] [address] Feb, [facility] [place] [facility] [address] [id number] [place] [address] Feb, [facility] [place] [facility] [address] [id number] [place] [address] Feb, [facility] [place] [facility] [address] [id number] [place] [address] Feb, [facility] [place] [facility] [address] [id number] [place] [address] Feb, [facility] [place] [facility] [address] [id number] [place] [address] Jan, [facility] [place] [facility] [address] [id number] [place] [address] Jan, [facility] [place] [facility] [address] [id number] [place] [address] Jan, [facility] [place] [facility] [address] [id number] [place] [address] Jan, [facility] [place] [facility] [address] [id number], [place] [address] Jan, [facility] [place] [facility] [address] [id number] [place] [address] Jan, [facility] [place] [facility] [address] [id number] [place] [address] Jan, [facility] [place] [facility] [address] [id number] [place] [address] Jan, [facility] [place] [facility] [address] [id number] [place] [address] Jan, [facility] [place] [facility] [address] [id number] [place] [address] Jan, [facility] [place] [facility] [address] [id number] [place] [address] Dec, [facility] [place] [facility] [address] [id number] [place] [address] Dec, [facility] [place] [facility] [address] [id number] [place] [address] Dec, [facility] [place] [facility] [address] [id number] [place] [address] Dec, [facility] [place] [facility] [address] [id number] [place] [address] Nov, [facility] [place] [facility] [address] [id number] [place] [address] Nov, [facility] [place] [facility] [address] [id number] [place] [address] Nov, [facility] [place] [facility] [address] [id number] [place] [address] Nov, [facility] [place] [facility] [address] [id number] [place] [address] Nov, [facility] [place] [facility] [address] [id number] [place] [address] Nov, [facility] [place] [facility] [address] [id number] [place] [address] Nov, [facility] [place] [facility] [address] [id number] [place] [address] Nov, [facility] [place] [facility] [address] [id number] [place] [address] Nov, [facility] [place] [facility] [address] [id number] [place] [address] Oct, [facility] [place] [facility] [address] [id number] [place] [address] Oct, [facility] [place] [facility] [address] [id number] [place] [address] Sep, [facility] [place] [facility] [address] [id number] [place] [address] Sep, [facility] [place] [facility] [address] [id number] [place] [address] Sep, [facility] [place] [facility] [address] [id number] [place] [address] Sep, [facility] [place] [facility] [address] [id number] [place] [address] Sep, [facility] [place] [facility] [address] [id number] [place] [address] Sep, [facility] [place] [facility] [address] [id number] [place] [address] Sep, [facility] [place] [facility] [address] [id number] [place] [address] Sep, [facility] [place] [facility] [address] [id number] [place] [address] Sep, [facility] [place] [facility] [address] [id number] [place] [address] Sep, [facility] [place] [facility] [address] [id number] [place] [address] Sep, [facility] [place] [facility] [address] [id number] [place] [address] Sep, [facility] [place] [facility] [address] [id number] [place] [address] Sep, [facility] [place] [facility] [address] [id number] [place] [address] Sep, [facility] [place] [facility] [address] [id number] [place] [address] August, [facility] [place] [facility] [address] [id number] [place] [address] August, [facility] [place] [facility] [address] [id number] [place] [address] August, [facility] [place] [facility] [address] [facility] [id number] [place] [address] August, [facility] [place] [facility] [address] [id number] [place] [address] Jul, [facility] [place] [facility] [address] [id number] [place] [address] Jul, [facility] [place] [facility] [address] [id number] [place] [address] Jul, [facility] [place] [facility] [address] [facility] [id number] [place] [address] Jul, [facility] [place] [facility] [address] [id number] [place] [address] Jun, [facility] [place] [facility] [address] [id number] [place] [address] Jun, [facility] [place] [facility] [address] [facility] [id number] [place] [address] May, [facility] [place] [facility] [address] [id number] [place] [address] May, [facility] [place] [facility] [address] [id number] [place] [address] May, [facility] [place] [facility] [address] [id number] [place] [address] May, [facility] [place] [facility] [address] [id number] [place] [address] May, [facility] [place] [facility] [address] [id number] [place] [address] May, [facility] [place] [facility] [address] [id number] [place] [address] May, [facility] [place] [facility] [address] [id number] [place] [address] May, [facility] [place] [facility] [address] [id number] [place] [address] May, [facility] [place] [facility] [address] [id number] [place] [address] Apr, [facility] [place] [facility] [address] [id number] [place] [address] Apr, [facility] [place] [facility] [address] [id number] [place] [address] Apr, [facility] [place] [facility] [address] [id number] [place] [address] Apr, [facility] [place] [facility] [address] [id number] [place] [address] Apr, [facility] [place] [facility] [address] [id number] [place] [address] Mar, [facility] [place] [facility] [address] [id number] [place] [address] Mar, [facility] [place] [facility] [address] [id number] [place] [address] Feb, [facility] [place] [facility] [address] [id number] [place] [address] Feb, [facility] [place] [facility] [address] [id number] [place] [address] Feb, [facility] [place] [facility] [address] [id number] [place] [address] Feb, [facility] [place] [facility] [address] [id number] [place] [address] Feb, [facility] [place] [facility] [address] [id number] [place] [address] Feb, [facility] [place] [facility] [address] [id number] [place] [address] Feb, [facility] [place] [facility] [address] [id number] [place] [address] Feb, [facility] [place] [facility] [address] [id number] [place] [address] Feb, [facility] [place] [facility] [address] [id number] [place] [address] Jan, [facility] [place] [facility] [address] [id number] [place] [address] Jan, [facility] [place] [facility] [address] [id number] [place] [address] Jan, [facility] [place] [facility] [address] [id number] [place] [address] Jan, [facility] [place] [facility] [address] [id number] [place] [address] Jan, [facility] [place] [facility] [address] [id number] [place] [address] Dec, [facility] [place] [facility] [address] [id number] [place] [address] Dec, [facility] [place] [facility] [address] [id number] [place] [address] Nov, [facility] [place] [facility] [address] [id number] [address] Nov, [facility] [place] [facility] [address] [id number] [place] [address] Oct, [facility] [place] [facility] [address] [id number] [place] [address] Oct, [facility] [place] [facility] [address] [id number] [place] [address] Oct, [facility] [place] [facility] [address] [id number] [place] [address] Sep, [facility] [address] [id number] [place] [address] Sep, [facility] [address] [id number] [place] [address] Sep, [facility] [address] [id number] [place] [address] August, [facility] [address] [id number] [place] [address] August, [facility] [address] [id number] [place] [address] August, [facility] [address] [id number] [place] [address] August, [facility] [address] [id number] [place] [address] Jul, [facility] [address] [id number] [place] [address] Jun, [facility] [address] [id number] [place] [address] Jun, [facility] [address] [id number] [place] [address] Jun, [facility] [address] [id number] [place] [address] May, [facility] [address] [id number] [place] [address] May, [facility] [address] [id number] [place] [address] May, [facility] [address] [id number] [place] [address] May, [facility] [address] [id number] [place] [address] Apr, [facility] [address] [id number] [place] [address] 31 Apr, 2012 [facility] [place] [facility] [address] [id number] [place] [address] 15 Apr, 2012 [facility] [place] [facility] [address] [id number] [place] [address] 14 Apr, 2012 [facility] [place] [facility] [address] [id number] [place] [address] Apr, [facility] [place] [facility] [address] [id number] [place] [address] Mar, [facility] [place] [facility] [address] [id number] [place] [address] Mar, [facility] [place] [facility] [address] [id number] [place] [address] Mar, [facility] [place] [facility] [address] [id number] [place] [address] Mar, [facility] [place] [facility] [address] [id number] [place] [address] Mar, [facility] [place] [facility] [address] [id number] [place] [address] Mar, [facility] [place] [facility] [address] [id number] [place] [address] Mar, [facility] [place] [facility] [address] [id number], [place] [address] Feb, [facility] [place] [facility] [address] [id number] [place] [address] Feb, [facility] [place] [facility] [address] [id number] [place] [address] Feb, [facility] [place] [facility] [address] [id number] [place] [address] Feb, [facility] [place] [facility] [address] [id number] [place] [address] Feb, [facility] [place] [facility] [address] [id number] [place] [address] Feb, [facility] [place] [facility] [address] [id number] [place] [address] Feb, [facility] [place] [facility] [address] [facility] [id number] [place] [address] Feb, [facility] [place] [facility] [address] [id number] [place] [address] Jan, [facility] [place] [facility] [address] [id number] [place] [address] Jan, [facility] [place] [facility] [address] [id number] [place] [address] Jan, [facility] [place] [facility] [address] [id number] [place] [address] Jan, [facility] [place] [facility] [address] [id number] [place] [address] 27 Dec, 2011 [facility] [place] [facility] [address] [id number] [place] [address] 25 Dec, 2011 [facility] [place] [facility] [address] [facility] [id number] [place] [address] 18 Dec, 2011 [facility] [place] [facility] [address] [id number] [place] [address] 13 Dec, 2011 [facility] [place] [facility] [address] [id number] [place] [address] 11 Dec, 2011 [facility] [place] [facility] [address] [id number] [place] [address] Oct, [facility] [place] [facility] [address] [facility] [id number] [place] [address] Oct, [facility] [place] [facility] [address] [facility] [id number] [place] [address] Sep, [facility] [place] [facility] [address] [id number] [place] [address] Sep, [facility] [place] [facility] [address] [id number] [place] [address] August, [facility] [place] [facility] [address] [id number] [place] [address] August, [facility] [place] [facility] [address] [id number] [place] [address] Jul, [facility] [place] [facility] [address] [id number] [place] [address] Jun, [facility] [place] [facility] [address] [id number] [place] [address] Jun, [facility] [place] [facility] [address] [id number] [place] [address] Jun, [facility] [place] [facility] [address] [id number] [place] [address] Jun, [facility] [place] [facility] [address] [id number] [place] [address] Jun, [facility] [place] [facility] [address] [id number] [place] [address] May, [facility] [place] [facility] [address] [id number] [place] [address] May, [facility] [place] [facility] [address] [id number] [place] [address] 20 May, 2011 [facility] [place] [facility] [address] [id number] [place] [address] 14 May, 2011 [facility] [place] [facility] [address] [id number] [place] [address] 13 May, 2011 [facility] [place] [facility] [address] [id number] [place] [address] 03 May, 2011 [facility] [place] [facility] [address] [id number], [place] [address] May, [facility] [address] [facility] [id number] [place] [address] May, [facility] [address] [facility] [id number], [place] [address] Apr, [facility] [address] [facility] [id number] [place] [address] Mar, [facility] [address] [facility] [id number] [place] [address] Mar, [facility] [address] [facility] [id number] [place] [address] Mar, [facility] [address] [facility] [id number] [place] [address] Mar, [facility] [address] [id number], [place] [address] Mar, [facility] [address] [facility] [id number], [place] [address] Jan, [facility] [address] [id number], [place] [address] Jan, [facility] [address] [id number], [place] [address] Jan, [facility] [address] [id number], [place] [address] August, [facility] [address] [facility] [id number], [place] [address] Mar, [facility] [address] [facility] [id number], [place] [address] Feb, [facility] [address] [facility] [id number], [place] [address] 14 Jan, 2010 [facility] [address] [id number], [place] [address] Jan, IMMUNIZATIONS No Known Immunizations SOCIAL HISTORY Never Assessed REASON FOR VISIT Refill request PLAN OF CARE VITAL SIGNS MEDICATIONS Medication Instructions Dosage Frequency Start Date End Date Duration Status Ibuprofen 800 mg Orally 3 times a day 1 tablet 8h 30 Active Gabapentin 600 mg Orally 3 times a day 1 tablet 8h 30 Active Amitriptyline HCl 50 mg Orally Once a day 1 tablet 24h 30 Active RESULTS No Results PROCEDURES No Known procedures INSTRUCTIONS MEDICATIONS ADMINISTERED No Known Medications MEDICAL (GENERAL) HISTORY Type Description Date Medical History diabetes mellitus Medical History morbid obesity Medical History hypertension Medical History chronic pain Medical History Anxiety disorder Surgical History cholecystectomy Surgical History x 2 Hospitalization History surgeries Hospitalization History labor and delivery
--- OUTSIDE RECORDS SUMMARY | 2018-09-17 23:29 | XMS REPORT ---
Author Author KATIE HUDSON Organization [facility] Address [address] [place] [address] Care Team Providers Care Roundsman Name Role Phone KATIE HUDSON Unavailable PROBLEMS Type Condition ICD9-CM Code TTV73-WT Code Onset Dates Condition Status SNOMED Code Problem Diabetes E11.9 Active 64377754 Problem CAD (coronary artery disease) I25.10 Active 58266911 Problem Pharyngeal dysphagia R13.13 Active [id number] Problem Osteoarthritis of knees, bilateral M17.0 Active 382340740 Problem Arthritis M19.90 Active 1372981 Problem Morbid obesity E66.01 Active 596844647 Problem Pharyngoesophageal dysphagia R13.14 Active 52057650 Problem Hyperlipemia E78.5 Active 52576225 ALLERGIES No Information ENCOUNTERS Encounter Location Date Diagnosis [facility] [id number] [place] [address] Jan, Dysuria R30.0 [facility] [address] [address] Jan, Dysuria R30.0 [facility] [id number] [place] [address] Jan, Osteoarthritis of knees, bilateral M17.0 [facility] [id number] [place] [address] Nov, Dysuria R30.0 [facility] [address] [address] Oct, Blood in urine R31.9 ; Dysuria R30.0 ; Pharyngeal dysphagia R13.13 ; Acute cystitis with hematuria N30.01 ; CAD (coronary artery disease) I25.10 and Diabetes E11.9 [facility] [id number] [address] 13 Oct, 2016 [facility] [id number] [place] [address] Sep, Arthritis M19.90 ; Blood in urine R31.9 ; Diabetes E11.9 ; Acute cystitis with hematuria N30.01 and Pharyngoesophageal dysphagia R13.14 [facility] [id number] [place] [address] Sep, Osteoarthritis of knees, bilateral M17.0 [facility] [id number] [place] [address] Sep, Osteoarthritis of knees, bilateral M17.0 [facility] [id number] [place] [address] August, Arthritis M19.90 [facility] [id number] [place] [address] Jul, Arthritis M19.90 [facility] [id number] [place] [address] Jun, Arthritis M19.90 [facility] [address] [address] Jun, [facility] [address] [address] Jun, [facility] [id number] [place] [address] May, Diabetes E11.9 ; Dysuria R30.0 and Arthritis M19.90 [facility] [address] [address] Apr, [facility] [address] [address] Apr, Arthritis M19.90 [facility] [address] [address] Mar, Arthritis M19.90 [facility] [address] [address] Feb, [facility] [id number] [place] [address] Jan, [facility] [id number] [place] [address] Dec, Diabetes E11.9 and Arthritis M19.90 [facility] [id number] [place] [address] Dec, [facility] [id number] [place] [address] Nov, Arthritis M19.90 [facility] [id number] [place] [address] Nov, [facility] [id number] [place] [address] Oct, Arthritis M19.90 [facility] [id number] [place] [address] Sep, Osteoarthritis of knees, bilateral M17.0 [facility] [id number] [place] [address] Sep, Osteoarthritis of knees, bilateral M17.0 [facility] [id number] [place] [address] August, Arthritis M19.90 [facility] [address], [place] [address] August, [facility] [id number] [place] [address] Jul, Hyperlipemia E78.5 [facility] [address], [place] [address] Jul, Encounter for well woman exam Z01.419 ; Morbid obesity E66.01 ; Encounter for screening for malignant neoplasm of cervix Z12.4 and Encounter for screening mammogram for breast cancer Z12.31 [facility] [address], [place] [address] Jul, Arthritis M19.90 ; Diabetes E11.9 ; Blood in urine R31.9 and UTI (urinary tract infection) N39.0 [facility] [address] [place] [address] Jul, [facility] [id number] [place] [address] Jun, Arthritis M19.90 [facility] [id number] [place] [address] May, Arthritis M19.90 [facility] [id number] [place] [address] May, [facility] [id number] [place] [address] Apr, [facility] [id number] [place] [address] Apr, Arthritis M19.90 ; Diabetes E11.9 and Morbid obesity E66.01 [facility] [address] [address] Apr, [facility] [address] [place] [address] Apr, Dyspareunia N94.1 [facility] [address] [address] 15 Apr, 2015 [facility] [id number] [place] [address] Apr, [facility] [address], [place] [address] 14 Apr, 2015 Osteoarthritis of knees, bilateral M17.0 [facility] [id number] [place] [address] Apr, Diabetes E11.9 and CAD (coronary artery disease) I25.10 [facility] [id number] [place] [address] Mar, [facility] [id number] [place] [address] Feb, [facility] [id number] [place] [address] Jan, [facility] [id number] [place] [address] Jan, [facility] [id number] [place] [address] Jan, [facility] [id number] [place] [address] Jan, Osteoarthritis of knees, bilateral M17.0 [facility] [id number] [place] [address] Dec, [facility] [id number] [place] [address] Dec, [facility] [id number] [place] [address] Dec, [facility] [id number] [place] [address] Dec, Diabetes mellitus 250.00 and UTI (urinary tract infection) 599.0 [facility] [address] [place] [address] Dec, [facility] [id number] [place] [address] Nov, [facility] [id number] [place] [address] Oct, [facility] [address] [place] [address] Oct, [facility] [place] [facility] [address] [id number] [place] [address] Oct, [facility] [place] [facility] [address] [id number] [place] [address] Oct, [facility] [place] [facility] [address] [id number] [place] [address] Oct, [facility] [place] [facility] [address] [id number] [place] [address] Sep, [facility] [place] [facility] [address] [id number] [place] [address] August, [facility] [place] [facility] [address] [id number] [place] [address] August, [facility] [place] [facility] [address] [id number] [place] [address] August, [facility] [place] [facility] [address] [id number] [place] [address] Jul, [facility] [place] [facility] [address] [id number] [place] [address] Jul, [facility] [place] [facility] [address] [id number] [place] [address] Jul, [facility] [place] [facility] [address] [id number] [place] [address] Jun, [facility] [place] [facility] [address] [id number] [place] [address] 24 Jun, 2014 [facility] [place] [facility] [address] [id number] [place] [address] Jun, [facility] [place] [facility] [address] [id number] [place] [address] Jun, [facility] [place] [facility] [address] [id number] [place] [address] 24 Jun, 2014 [facility] [place] [facility] [address] [id number] [place] [address] Jun, [facility] [place] [facility] [address] [id number] [place] [address] Jun, [facility] [place] [facility] [address] [facility] [id number] [place] [address] Jun, [facility] [place] [facility] [address] [facility] [id number] [place] [address] May, 2014 [facility] [place] [facility] [address] [facility] [id number] [place] [address] May, 2014 [facility] [place] [facility] [address] [id number] [place] [address] May, 2014 [facility] [place] [facility] [address] [facility] [id number] [place] [address] May, 2014 [facility] [place] [facility] [address] [facility] [id number] [place] [address] May, 2014 [facility] [place] [facility] [address] [facility] [id number] [place] [address] May, 2014 [facility] [place] [facility] [address] [facility] [id number] [place] [address] May, 2014 [facility] [place] [facility] [address] [facility] [id number] [place] [address] May, [facility] [place] [facility] [address] [facility] [id number] [place] [address] May, 2014 [facility] [place] [facility] [address] [facility] [id number], [place] [address] May, 2014 [facility] [place] [facility] [address] [facility] [id number] [place] [address] May, 2014 [facility] [place] [facility] [address] [facility] [id number], [place] [address] May, 2014 [facility] [place] [facility] [address] [facility] [id number], [place] [address] Apr, [facility] [place] [facility] [address] [id number] [place] [address] Apr, [facility] [place] [facility] [address] [id number] [place] [address] Mar, [facility] [place] [facility] [address] [id number] [place] [address] Mar, [facility] [place] [facility] [address] [id number] [place] [address] Mar, [facility] [place] [facility] [address] [id number] [place] [address] Mar, [facility] [place] [facility] [address] [id number] [place] [address] Mar, [facility] [place] [facility] [address] [id number] [place] [address] Mar, [facility] [place] [facility] [address] [id number] [place] [address] Feb, [facility] [place] [facility] [address] [id number] [place] [address] Feb, [facility] [place] [facility] [address] [id number] [place] [address] Feb, [facility] [place] [facility] [address] [id number] [place] [address] Feb, [facility] [place] [facility] [address] [id number] [place] [address] Feb, [facility] [place] [facility] [address] [id number] [place] [address] Feb, [facility] [place] [facility] [address] [id number] [place] [address] Feb, [facility] [place] [facility] [address] [id number] [place] [address] Feb, [facility] [place] [facility] [address] [id number], [place] [address] Feb, [facility] [place] [facility] [address] [id number] [place] [address] Jan, [facility] [place] [facility] [address] [id number] [place] [address] Jan, [facility] [place] [facility] [address] [id number] [place] [address] Jan, [facility] [place] [facility] [address] [id number] [place] [address] Jan, [facility] [place] [facility] [address] [id number] [place] [address] Jan, [facility] [place] [facility] [address] [id number] [place] [address] Jan, [facility] [place] [facility] [address] [id number] [place] [address] Jan, [facility] [place] [facility] [address] [id number] [place] [address] Jan, [facility] [place] [facility] [address] [id number] [place] [address] Jan, [facility] [place] [facility] [address] [id number] [place] [address] Jan, [facility] [place] [facility] [address] [id number], [place] [address] Dec, [facility] [place] [facility] [address] [id number], [place] [address] 19 Dec, 2013 [facility] [place] [facility] [address] [id number] [place] [address] 10 Dec, 2013 [facility] [place] [facility] [address] [id number] [place] [address] Dec, [facility] [place] [facility] [address] [id number] [place] [address] Nov, [facility] [place] [facility] [address] [id number] [place] [address] Nov, [facility] [place] [facility] [address] [id number] [place] [address] Nov, [facility] [place] [facility] [address] [id number] [place] [address] Nov, [facility] [place] [facility] [address] [id number] [place] [address] Nov, [facility] [place] [facility] [address] [id number] [place] [address] Nov, [facility] [place] [facility] [address] [id number] [place] [address] Nov, [facility] [place] [facility] [address] [id number] [place] [address] Nov, [facility] [place] [facility] [address] [id number] [place] [address] Nov, [facility] [place] [facility] [address] [id number] [place] [address] Oct, [facility] [place] [facility] [address] [id number] [place] [address] Oct, [facility] [place] [facility] [address] [id number] [place] [address] Sep, [facility] [place] [facility] [address] [id number] [place] [address] Sep, [facility] [place] [facility] [address] [id number] [place] [address] Sep, [facility] [place] [facility] [address] [id number] [place] [address] Sep, [facility] [place] [facility] [address] [id number] [place] [address] Sep, [facility] [place] [facility] [address] [id number] [place] [address] Sep, [facility] [place] [facility] [address] [id number] [place] [address] Sep, [facility] [place] [facility] [address] [id number] [place] [address] Sep, [facility] [place] [facility] [address] [id number] [place] [address] Sep, [facility] [place] [facility] [address] [id number] [place] [address] Sep, [facility] [place] [facility] [address] [id number] [place] [address] Sep, [facility] [place] [facility] [address] [id number] [place] [address] Sep, [facility] [place] [facility] [address] [id number] [place] [address] Sep, [facility] [place] [facility] [address] [id number] [place] [address] Sep, [facility] [place] [facility] [address] [id number] [place] [address] August, [facility] [place] [facility] [address] [id number] [place] [address] August, [facility] [place] [facility] [address] [id number] [place] [address] August, [facility] [place] [facility] [address] [id number] [place] [address] August, [facility] [place] [facility] [address] [id number] [place] [address] Jul, [facility] [place] [facility] [address] [id number] [place] [address] Jul, [facility] [place] [facility] [address] [id number] [place] [address] Jul, [facility] [place] [facility] [address] [id number] [place] [address] Jul, [facility] [place] [facility] [address] [id number] [place] [address] Jun, [facility] [place] [facility] [address] [id number] [place] [address] Jun, [facility] [place] [facility] [address] [id number] [place] [address] May, [facility] [place] [facility] [address] [id number] [place] [address] May, [facility] [place] [facility] [address] [id number] [place] [address] May, [facility] [place] [facility] [address] [id number] [place] [address] May, [facility] [place] [facility] [address] [id number] [place] [address] May, [facility] [place] [facility] [address] [id number] [place] [address] May, [facility] [place] [facility] [address] [id number] [place] [address] May, [facility] [place] [facility] [address] [id number] [place] [address] May, [facility] [place] [facility] [address] [id number] [place] [address] May, [facility] [place] [facility] [address] [id number] [place] [address] Apr, [facility] [place] [facility] [address] [id number] [place] [address] Apr, [facility] [place] [facility] [address] [id number] [place] [address] Apr, [facility] [place] [facility] [address] [id number] [place] [address] Apr, [facility] [place] [facility] [address] [id number] [place] [address] Apr, [facility] [place] [facility] [address] [id number] [place] [address] Mar, [facility] [place] [facility] [address] [id number] [place] [address] Mar, [facility] [place] [facility] [address] [id number] [place] [address] Feb, [facility] [place] [facility] [address] [id number] [place] [address] Feb, [facility] [place] [facility] [address] [id number] [place] [address] Feb, [facility] [place] [facility] [address] [id number] [place] [address] Feb, [facility] [place] [facility] [address] [id number], [place] [address] Feb, [facility] [place] [facility] [address] [id number] [place] [address] Feb, [facility] [place] [facility] [address] [id number], [place] [address] Feb, [facility] [place] [facility] [address] [id number], [place] [address] Feb, [facility] [place] [facility] [address] [id number], [place] [address] Feb, [facility] [place] [facility] [address] [id number] [place] [address] Jan, [facility] [place] [facility] [address] [id number], [place] [address] Jan, [facility] [place] [facility] [address] [id number], [place] [address] Jan, [facility] [place] [facility] [address] [id number] [place] [address] Jan, [facility] [address] [id number] [place] [address] Jan, [facility] [place] [facility] [address] [id number] [place] [address] Dec, [facility] [place] [facility] [address] [id number] [place] [address] Dec, [facility] [place] [facility] [address] [id number] [place] [address] Nov, [facility] [place] [facility] [address] [id number] [place] [address] Nov, [facility] [place] [facility] [address] [id number] [place] [address] Oct, [facility] [address] [id number] [place] [address] Oct, [facility] [place] [facility] [address] [id number] [place] [address] Oct, [facility] [place] [facility] [address] [id number] [place] [address] Sep, [facility] [place] [facility] [address] [id number] [place] [address] Sep, [facility] [place] [facility] [address] [id number] [place] [address] Sep, [facility] [place] [facility] [address] [id number] [place] [address] August, [facility] [place] [facility] [address] [id number] [place] [address] August, [facility] [place] [facility] [address] [id number] [place] [address] August, [facility] [place] [facility] [address] [id number] [place] [address] August, [facility] [place] [facility] [address] [id number] [place] [address] 17 Jul, 2012 [facility] [place] [facility] [address] [id number] [place] [address] Jun, [facility] [place] [facility] [address] [id number] [place] [address] 08 Jun, 2012 [facility] [place] [facility] [address] [id number] [place] [address] 05 Jun, 2012 [facility] [place] [facility] [address] [id number] [place] [address] May, [facility] [place] [facility] [address] [id number] [place] [address] May, [facility] [place] [facility] [address] [id number] [place] [address] May, [facility] [place] [facility] [address] [id number] [place] [address] May, [facility] [place] [facility] [address] [id number] [place] [address] Apr, [facility] [place] [facility] [address] [id number] [place] [address] Apr, [facility] [place] [facility] [address] [id number] [place] [address] 15 Apr, 2012 [facility] [place] [facility] [address] [id number] [place] [address] 14 Apr, 2012 [facility] [place] [facility] [address] [id number] [place] [address] Apr, [facility] [place] [facility] [address] [id number] [place] [address] Mar, [facility] [place] [facility] [address] [id number] [place] [address] Mar, [facility] [place] [facility] [address] [id number], [place] [address] Mar, [facility] [place] [facility] [address] [id number] [place] [address] Mar, [facility] [place] [facility] [address] [id number], [place] [address] Mar, [facility] [place] [facility] [address] [facility] [id number] [place] [address] Mar, [facility] [place] [facility] [address] [id number] [place] [address] Mar, [facility] [place] [facility] [address] [id number] [place] [address] Feb, [facility] [place] [facility] [address] [id number] [place] [address] Feb, [facility] [place] [facility] [address] [id number], [place] [address] Feb, [facility] [place] [facility] [address] [id number] [place] [address] Feb, [facility] [place] [facility] [address] [id number], [place] [address] Feb, [facility] [place] [facility] [address] [facility] [id number], [place] [address] Feb, [facility] [place] [facility] [address] [id number], [place] [address] Feb, [facility] [place] [facility] [address] [id number], [place] [address] Feb, [facility] [place] [facility] [address] [id number], [place] [address] Jan, [facility] [place] [facility] [address] [id number], [place] [address] Jan, [facility] [place] [facility] [address] [facility] [id number], [place] [address] Jan, [facility] [place] [facility] [address] [id number] [place] [address] 11 Jan, 2012 [facility] [place] [facility] [address] [id number] [place] [address] 27 Dec, 2011 [facility] [place] [facility] [address] [id number] [place] [address] 25 Dec, 2011 [facility] [place] [facility] [address] [id number] [place] [address] 18 Dec, 2011 [facility] [place] [facility] [address] [id number] [place] [address] 13 Dec, 2011 [facility] [place] [facility] [address] [id number] [place] [address] 11 Dec, 2011 [facility] [place] [facility] [address] [id number] [place] [address] 19 Oct, 2011 [facility] [place] [facility] [address] [id number] [place] [address] Oct, [facility] [place] [facility] [address] [id number] [place] [address] Sep, [facility] [place] [facility] [address] [id number] [place] [address] Sep, [facility] [place] [facility] [address] [id number] [place] [address] August, [facility] [place] [facility] [address] [id number] [place] [address] August, [facility] [place] [facility] [address] [id number] [place] [address] Jul, [facility] [place] [facility] [address] [id number] [place] [address] Jun, [facility] [place] [facility] [address] [id number] [place] [address] Jun, [facility] [place] [facility] [address] [id number] [place] [address] Jun, [facility] [address] [id number] [place] [address] 19 Jun, 2011 [facility] [place] [facility] [address] [id number] [place] [address] Jun, [facility] [place] [facility] [address] [id number] [place] [address] 24 May, 2011 [facility] [place] [facility] [address] [id number] [place] [address] May, [facility] [place] [facility] [address] [id number] [place] [address] 20 May, 2011 [facility] [place] [facility] [address] [id number] [place] [address] 14 May, 2011 [facility] [place] [facility] [address] [id number] [place] [address] 13 May, 2011 [facility] [place] [facility] [address] [id number] [place] [address] 03 May, 2011 [facility] [place] [facility] [address] [id number] [place] [address] May, [facility] [place] [facility] [address] [id number] [place] [address] May, [facility] [place] [facility] [address] [id number] [place] [address] Apr, [facility] [place] [facility] [address] [id number] [place] [address] Mar, [facility] [place] [facility] [address] [id number] [place] [address] Mar, [facility] [place] [facility] [address] [id number] [place] [address] Mar, [facility] [place] [facility] [address] [id number] [place] [address] 15 Mar, 2011 [facility] [place] [facility] [address] [facility] [id number], [place] [address] Mar, [facility] [address] [facility] [id number], [place] [address] Jan, [facility] [address] [facility] [id number], [place] [address] Jan, [facility] [address] [id number], [place] [address] Jan, [facility] [address] [facility] [id number], [place] [address] August, [facility] [id number], [place] [address] Mar, [facility] [id number], [place] [address] Feb, [facility] [id number], [place] [address] Jan, [facility] [address] [id number], [place] [address] Jan, IMMUNIZATIONS No Known Immunizations SOCIAL HISTORY Never Assessed REASON FOR VISIT PLAN OF CARE VITAL SIGNS MEDICATIONS Medication Instructions Dosage Frequency Start Date End Date Duration Status Cipro 500 mg Orally Twice a day 1 tablet 12h 16 Jan, 2017 Jan, 05 days Active RESULTS No Results PROCEDURES No Known procedures INSTRUCTIONS MEDICATIONS ADMINISTERED No Known Medications MEDICAL (GENERAL) HISTORY Type Description Date Medical History diabetes mellitus Medical History morbid obesity Medical History hypertension Medical History chronic pain Medical History Anxiety disorder Surgical History cholecystectomy Surgical History x 2 Hospitalization History surgeries Hospitalization History labor and delivery
--- OUTSIDE RECORDS SUMMARY | 2018-09-17 23:30 | XMS REPORT ---
Author Author YAIR GUNN Organization [facility] [place] Address [address] [place] [address] Care Team Providers [employer] T[employer] Name Role Phone YAIR GUNN Unavailable PROBLEMS Type Condition ICD9-CM Code PWQ14-GV Code Onset Dates Condition Status SNOMED Code Problem Diabetes E11.9 Active 99837940 Problem CAD (coronary artery disease) I25.10 Active 01438218 Problem Pharyngeal dysphagia R13.13 Active [id number] Problem Osteoarthritis of knees, bilateral M17.0 Active 303124895 Problem Arthritis M19.90 Active 7669838 Problem Morbid obesity E66.01 Active 272754471 Problem Pharyngoesophageal dysphagia R13.14 Active 72735355 Problem Hyperlipemia E78.5 Active 99740035 ALLERGIES No Information ENCOUNTERS Encounter Location Date Diagnosis [facility] [facility] [id number] [place] [address] Jan, Dysuria R30.0 [facility] [facility] [address] [address] Jan, Dysuria R30.0 [facility] [id number] [place] [address] Jan, Osteoarthritis of knees, bilateral M17.0 [facility] [place] [id number] [place] [address] Nov, Dysuria R30.0 [place] [address] [address] Oct, Blood in urine R31.9 ; Dysuria R30.0 ; Pharyngeal dysphagia R13.13 ; Acute cystitis with hematuria N30.01 ; CAD (coronary artery disease) I25.10 and Diabetes E11.9 [facility] [place] [id number] [address] 13 Oct, 2016 [facility] [place] [id number] [place] [address] Sep, Arthritis M19.90 ; Blood in urine R31.9 ; Diabetes E11.9 ; Acute cystitis with hematuria N30.01 and Pharyngoesophageal dysphagia R13.14 [facility] [place] [id number] [place] [address] Sep, Osteoarthritis of knees, bilateral M17.0 [facility] [place] [id number] [place] [address] Sep, Osteoarthritis of knees, bilateral M17.0 [facility] [place] [id number] [place] [address] August, Arthritis M19.90 [facility] [place] [id number] [place] [address] Jul, Arthritis M19.90 [facility] [place] [id number] [place] [address] Jun, Arthritis M19.90 [facility] [place] [address] [address] Jun, [facility] [place] [address] [address] Jun, [facility] [place] [id number] [place] [address] May, Diabetes E11.9 ; Dysuria R30.0 and Arthritis M19.90 [facility] [place] [address] [address] Apr, [facility] [place] [address] [address] Apr, Arthritis M19.90 [facility] [place] [address] [address] Mar, Arthritis M19.90 [facility] [place] [address] [address] Feb, [facility] [place] [id number] [place] [address] Jan, [facility] [place] [id number] [place] [address] Dec, Diabetes E11.9 and Arthritis M19.90 [facility] [place] [id number] [place] [address] Dec, [facility] [place] [id number] [place] [address] Nov, Arthritis M19.90 [facility] [place] [id number] [place] [address] Nov, [facility] [place] [id number] [place] [address] Oct, Arthritis M19.90 [facility] [place] [id number] [place] [address] Sep, Osteoarthritis of knees, bilateral M17.0 [facility] [place] [id number] [place] [address] Sep, Osteoarthritis of knees, bilateral M17.0 [facility] [place] [id number] [place] [address] August, Arthritis M19.90 [facility] [place] [address] [address] August, [facility] [place] [id number] [place] [address] Jul, Hyperlipemia E78.5 [facility] [place] [address] [address] Jul, Encounter for well woman exam Z01.419 ; Morbid obesity E66.01 ; Encounter for screening for malignant neoplasm of cervix Z12.4 and Encounter for screening mammogram for breast cancer Z12.31 [facility] [place] [address] [address] Jul, Arthritis M19.90 ; Diabetes E11.9 ; Blood in urine R31.9 and UTI (urinary tract infection) N39.0 [facility] [place] [address] [address] Jul, [facility] [place] [id number] [place] [address] Jun, Arthritis M19.90 [facility] [place] [id number] [place] [address] May, Arthritis M19.90 [facility] [place] [id number] [place] [address] May, [facility] [place] [id number] [place] [address] Apr, [facility] [place] [id number] [place] [address] Apr, Arthritis M19.90 ; Diabetes E11.9 and Morbid obesity E66.01 [facility] [place] [id number] [address] Apr, [facility] [address] [address] Apr, Dyspareunia N94.1 [place] [id number] [address] 15 Apr, 2015 [place] [id number] [place] [address] Apr, [place] [address] [address] 14 Apr, 2015 Osteoarthritis of knees, bilateral M17.0 [facility] [place] [id number] [place] [address] Apr, Diabetes E11.9 and CAD (coronary artery disease) I25.10 [facility] [place] [id number] [place] [address] Mar, [facility] [place] [id number] [place] [address] Feb, [facility] [place] [id number] [place] [address] Jan, [facility] [place] [id number] [place] [address] Jan, [facility] [place] [id number] [place] [address] Jan, [facility] [place] [id number] [place] [address] Jan, Osteoarthritis of knees, bilateral M17.0 [facility] [place] [id number] [place] [address] Dec, [facility] [place] [id number] [place] [address] Dec, [facility] [place] [id number] [place] [address] Dec, [facility] [place] [id number] [place] [address] Dec, Diabetes mellitus 250.00 and UTI (urinary tract infection) 599.0 [facility] [place] [address] [address] Dec, [facility] [place] [id number] [place] [address] Nov, [facility] [place] [id number] [place] [address] Oct, [facility] [place] [id number] [place] [address] Oct, [facility] [place] [facility] [address] [id number] [place] [address] Oct, [facility] [place] [facility] [address] [id number] [place] [address] Oct, [facility] [place] [facility] [address] [id number] [place] [address] Oct, [facility] [place] [facility] [address] [id number] [place] [address] Sep, [facility] [place] [facility] [address] [id number] [place] [address] August, [facility] [place] [facility] [address] [id number] [place] [address] August, [facility] [place] [facility] [address] [id number] [place] [address] August, [facility] [place] [facility] [address] [id number] [place] [address] Jul, [facility] [place] [facility] [address] [id number] [place] [address] Jul, [facility] [place] [facility] [address] [id number] [place] [address] Jul, [facility] [place] [facility] [address] [id number] [place] [address] Jun, [facility] [place] [facility] [address] [id number] [place] [address] 24 Jun, 2014 [facility] [place] [facility] [address] [id number] [place] [address] Jun, [facility] [place] [facility] [address] [id number] [place] [address] Jun, [facility] [place] [facility] [address] [id number] [place] [address] 24 Jun, 2014 [facility] [place] [facility] [address] [id number] [place] [address] Jun, [facility] [place] [facility] [address] [id number] [place] [address] Jun, [facility] [place] [facility] [address] [facility] [id number] [place] [address] Jun, [facility] [place] [facility] [address] [facility] [id number] [place] [address] May, 2014 [facility] [place] [facility] [address] [facility] [id number] [place] [address] May, 2014 [facility] [place] [facility] [address] [id number] [place] [address] May, 2014 [facility] [place] [facility] [address] [facility] [id number] [place] [address] May, 2014 [facility] [place] [facility] [address] [facility] [id number] [place] [address] May, 2014 [facility] [place] [facility] [address] [facility] [id number] [place] [address] May, 2014 [facility] [place] [facility] [address] [facility] [id number] [place] [address] May, 2014 [facility] [place] [facility] [address] [facility] [id number] [place] [address] May, [facility] [place] [facility] [address] [facility] [id number] [place] [address] May, 2014 [facility] [place] [facility] [address] [facility] [id number] [address] May, 2014 [facility] [place] [facility] [address] [facility] [id number] [place] [address] May, 2014 [facility] [place] [facility] [address] [facility] [id number] [address] May, 2014 [facility] [place] [facility] [address] [facility] [id number] [address] Apr, [facility] [place] [facility] [address] [id number] [place] [address] Apr, [facility] [place] [facility] [address] [id number] [place] [address] Mar, [facility] [place] [facility] [address] [id number] [place] [address] Mar, [facility] [place] [facility] [address] [id number] [place] [address] Mar, [facility] [place] [facility] [address] [id number] [place] [address] Mar, [facility] [place] [facility] [address] [id number] [place] [address] Mar, [facility] [place] [facility] [address] [id number] [place] [address] Mar, [facility] [place] [facility] [address] [id number] [place] [address] Feb, [facility] [place] [facility] [address] [id number] [place] [address] Feb, [facility] [place] [facility] [address] [id number] [place] [address] Feb, [facility] [place] [facility] [address] [id number] [place] [address] Feb, [facility] [place] [facility] [address] [id number] [place] [address] Feb, [facility] [place] [facility] [address] [id number] [place] [address] Feb, [facility] [place] [facility] [address] [id number] [place] [address] Feb, [facility] [place] [facility] [address] [id number] [place] [address] Feb, [facility] [place] [facility] [address] [id number] [address] Feb, [facility] [place] [facility] [address] [id number] [place] [address] Jan, [facility] [place] [facility] [address] [id number] [place] [address] Jan, [facility] [place] [facility] [address] [id number] [place] [address] Jan, [facility] [place] [facility] [address] [id number] [place] [address] Jan, [facility] [place] [facility] [address] [id number] [place] [address] Jan, [facility] [place] [facility] [address] [id number] [place] [address] Jan, [facility] [place] [facility] [address] [id number] [place] [address] Jan, [facility] [place] [facility] [address] [id number] [place] [address] Jan, [facility] [place] [facility] [address] [id number] [place] [address] Jan, [facility] [place] [facility] [address] [id number] [place] [address] Jan, [facility] [place] [facility] [address] [id number] [address] Dec, [facility] [place] [facility] [address] [id number] [address] 19 Dec, 2013 [facility] [place] [facility] [address] [id number] [place] [address] 10 Dec, 2013 [facility] [place] [facility] [address] [id number] [place] [address] Dec, [facility] [place] [facility] [address] [id number] [place] [address] Nov, [facility] [place] [facility] [address] [id number] [place] [address] Nov, [facility] [place] [facility] [address] [id number] [place] [address] Nov, [facility] [place] [facility] [address] [id number] [place] [address] Nov, [facility] [place] [facility] [address] [id number] [place] [address] Nov, [facility] [place] [facility] [address] [id number] [place] [address] Nov, [facility] [place] [facility] [address] [id number] [place] [address] Nov, [facility] [place] [facility] [address] [id number] [place] [address] Nov, [facility] [place] [facility] [address] [id number] [place] [address] Nov, [facility] [place] [facility] [address] [id number] [place] [address] Oct, [facility] [place] [facility] [address] [id number] [place] [address] Oct, [facility] [place] [facility] [address] [id number] [place] [address] Sep, [facility] [place] [facility] [address] [id number] [place] [address] Sep, [facility] [place] [facility] [address] [id number] [place] [address] Sep, [facility] [place] [facility] [address] [id number] [place] [address] Sep, [facility] [place] [facility] [address] [id number] [place] [address] Sep, [facility] [place] [facility] [address] [id number] [place] [address] Sep, [facility] [place] [facility] [address] [id number] [place] [address] Sep, [facility] [place] [facility] [address] [id number] [place] [address] Sep, [facility] [place] [facility] [address] [id number] [place] [address] Sep, [facility] [place] [facility] [address] [id number] [place] [address] Sep, [facility] [place] [facility] [address] [id number] [place] [address] Sep, [facility] [place] [facility] [address] [id number] [place] [address] Sep, [facility] [place] [facility] [address] [id number] [place] [address] Sep, [facility] [place] [facility] [address] [id number] [place] [address] Sep, [facility] [place] [facility] [address] [id number] [place] [address] August, [facility] [place] [facility] [address] [id number] [place] [address] August, [facility] [place] [facility] [address] [id number] [place] [address] August, [facility] [place] [facility] [address] [id number] [place] [address] August, [facility] [place] [facility] [address] [id number] [place] [address] Jul, [facility] [place] [facility] [address] [id number] [place] [address] Jul, [facility] [place] [facility] [address] [id number] [place] [address] Jul, [facility] [place] [facility] [address] [id number] [place] [address] Jul, [facility] [place] [facility] [address] [id number] [place] [address] Jun, [facility] [place] [facility] [address] [id number] [place] [address] Jun, [facility] [place] [facility] [address] [id number] [place] [address] May, [facility] [place] [facility] [address] [id number] [place] [address] May, [facility] [place] [facility] [address] [id number] [place] [address] May, [facility] [place] [facility] [address] [id number] [place] [address] May, [facility] [place] [facility] [address] [id number] [place] [address] May, [facility] [place] [facility] [address] [id number] [place] [address] May, [facility] [place] [facility] [address] [id number] [place] [address] May, [facility] [place] [facility] [address] [id number] [place] [address] May, [facility] [place] [facility] [address] [id number] [place] [address] May, [facility] [place] [facility] [address] [id number] [place] [address] Apr, [facility] [place] [facility] [address] [id number] [place] [address] Apr, [facility] [place] [facility] [address] [id number] [place] [address] Apr, [facility] [place] [facility] [address] [id number] [place] [address] Apr, [facility] [place] [facility] [address] [id number] [place] [address] Apr, [facility] [place] [facility] [address] [id number] [place] [address] Mar, [facility] [place] [facility] [address] [id number] [place] [address] Mar, [facility] [place] [facility] [address] [id number] [place] [address] Feb, [facility] [place] [facility] [address] [id number] [place] [address] Feb, [facility] [place] [facility] [address] [id number] [place] [address] Feb, [facility] [place] [facility] [address] [id number] [place] [address] Feb, [facility] [place] [facility] [address] [id number] [place] [address] Feb, [facility] [place] [facility] [address] [id number] [place] [address] Feb, [facility] [place] [facility] [address] [id number] [place] [address] Feb, [facility] [place] [facility] [address] [id number] [place] [address] Feb, [facility] [place] [facility] [address] [id number] [place] [address] Feb, [facility] [place] [facility] [address] [id number] [place] [address] Jan, [facility] [place] [facility] [address] [id number] [place] [address] Jan, [facility] [place] [facility] [address] [id number] [place] [address] Jan, [facility] [place] [facility] [address] [id number] [place] [address] Jan, [facility] [address] [id number] [place] [address] Jan, [facility] [place] [facility] [address] [id number] [place] [address] Dec, [facility] [place] [facility] [address] [id number] [place] [address] Dec, [facility] [place] [facility] [address] [id number] [place] [address] Nov, [facility] [place] [facility] [address] [id number] [place] [address] Nov, [facility] [place] [facility] [address] [id number] [place] [address] Oct, [facility] [address] [id number] [place] [address] Oct, [facility] [place] [facility] [address] [id number] [place] [address] Oct, [facility] [place] [facility] [address] [id number] [place] [address] Sep, [facility] [place] [facility] [address] [id number] [place] [address] Sep, [facility] [place] [facility] [address] [id number] [place] [address] Sep, [facility] [place] [facility] [address] [id number] [place] [address] August, [facility] [place] [facility] [address] [id number] [place] [address] August, [facility] [place] [facility] [address] [id number] [place] [address] August, [facility] [place] [facility] [address] [id number] [place] [address] August, [facility] [place] [facility] [address] [id number] [place] [address] 17 Jul, 2012 [facility] [place] [facility] [address] [id number] [place] [address] Jun, [facility] [place] [facility] [address] [id number] [place] [address] 08 Jun, 2012 [facility] [place] [facility] [address] [id number] [place] [address] 05 Jun, 2012 [facility] [place] [facility] [address] [id number] [place] [address] May, [facility] [place] [facility] [address] [id number] [place] [address] May, [facility] [place] [facility] [address] [id number] [place] [address] May, [facility] [place] [facility] [address] [id number] [place] [address] May, [facility] [place] [facility] [address] [id number] [place] [address] Apr, [facility] [place] [facility] [address] [id number] [place] [address] Apr, [facility] [place] [facility] [address] [id number] [place] [address] 15 Apr, 2012 [facility] [place] [facility] [address] [id number] [place] [address] 14 Apr, 2012 [facility] [place] [facility] [address] [id number] [place] [address] Apr, [facility] [place] [facility] [address] [id number] [place] [address] Mar, [facility] [place] [facility] [address] [id number] [place] [address] Mar, [facility] [place] [facility] [address] [id number] [place] [address] Mar, [facility] [place] [facility] [address] [id number] [place] [address] Mar, [facility] [place] [facility] [address] [id number] [place] [address] Mar, [facility] [place] [facility] [address] [facility] [id number] [place] [address] Mar, [facility] [place] [facility] [address] [id number] [place] [address] Mar, [facility] [place] [facility] [address] [id number] [place] [address] Feb, [facility] [place] [facility] [address] [id number] [place] [address] Feb, [facility] [place] [facility] [address] [id number] [place] [address] Feb, [facility] [place] [facility] [address] [id number] [place] [address] Feb, [facility] [place] [facility] [address] [id number] [place] [address] Feb, [facility] [place] [facility] [address] [facility] [id number] [place] [address] Feb, [facility] [place] [facility] [address] [id number] [place] [address] Feb, [facility] [place] [facility] [address] [id number] [place] [address] Feb, [facility] [place] [facility] [address] [id number] [place] [address] Jan, [facility] [place] [facility] [address] [id number] [place] [address] Jan, [facility] [place] [facility] [address] [facility] [id number] [address] Jan, [facility] [place] [facility] [address] [id number] [place] [address] 11 Jan, 2012 [facility] [place] [facility] [address] [id number] [place] [address] 27 Dec, 2011 [facility] [place] [facility] [address] [id number] [place] [address] 25 Dec, 2011 [facility] [place] [facility] [address] [id number] [place] [address] 18 Dec, 2011 [facility] [place] [facility] [address] [id number] [place] [address] 13 Dec, 2011 [facility] [place] [facility] [address] [id number] [place] [address] 11 Dec, 2011 [facility] [place] [facility] [address] [id number] [place] [address] 19 Oct, 2011 [facility] [place] [facility] [address] [id number] [place] [address] Oct, [facility] [place] [facility] [address] [id number] [place] [address] Sep, [facility] [place] [facility] [address] [id number] [place] [address] Sep, [facility] [place] [facility] [address] [id number] [place] [address] August, [facility] [place] [facility] [address] [id number] [place] [address] August, [facility] [place] [facility] [address] [id number] [place] [address] Jul, [facility] [place] [facility] [address] [id number] [place] [address] Jun, [facility] [place] [facility] [address] [id number] [place] [address] Jun, [facility] [place] [facility] [address] [id number] [place] [address] Jun, [facility] [address] [id number] [place] [address] 19 Jun, 2011 [facility] [place] [facility] [address] [id number] [place] [address] Jun, [facility] [place] [facility] [address] [id number] [place] [address] 24 May, 2011 [facility] [place] [facility] [address] [id number] [place] [address] May, [facility] [place] [facility] [address] [id number] [place] [address] 20 May, 2011 [facility] [place] [facility] [address] [id number] [place] [address] 14 May, 2011 [facility] [place] [facility] [address] [id number] [place] [address] 13 May, 2011 [facility] [place] [facility] [address] [id number] [place] [address] 03 May, 2011 [facility] [place] [facility] [address] [id number] [place] [address] May, [facility] [place] [facility] [address] [id number] [place] [address] May, [facility] [place] [facility] [address] [id number] [place] [address] Apr, [facility] [place] [facility] [address] [id number] [place] [address] Mar, [facility] [place] [facility] [address] [id number] [place] [address] Mar, [facility] [place] [facility] [address] [id number] [place] [address] Mar, [facility] [place] [facility] [address] [id number] [place] [address] 15 Mar, 2011 [facility] [place] [facility] [address] [id number] [address] Mar, [facility] [place] [address] [facility] [id number] [place] [address] Jan, [facility] [place] [address] [facility] [id number] [place] [address] Jan, [facility] [place] [address] [id number] [address] Jan, [facility] [place] [address] [facility] [id number] [place] [address] August, [facility] [place] [address]00565[address] [address] Mar, [facility] [place] [address]65[address] [address] Feb, [facility] [place] [address] [id number] [address] Jan, [facility] [place] [address] [id number] [address] Jan, IMMUNIZATIONS No Known Immunizations SOCIAL HISTORY Never Assessed REASON FOR VISIT 3 mo f/u. Consult Yair Zhong RT(R) PLAN OF CARE Activity Details Follow Up prn Reason: VITAL SIGNS MEDICATIONS Unknown Medications RESULTS No Results PROCEDURES Procedure Date Ordered Result Body Site DRAIN/INJECT, JOINT/BURSA Jan 26, 2017 DEPO MEDROL 80 MG/ML Jan 26, 2017 INSTRUCTIONS MEDICATIONS ADMINISTERED No Known Medications MEDICAL (GENERAL) HISTORY Type Description Date Medical History diabetes mellitus Medical History morbid obesity Medical History hypertension Medical History chronic pain Medical History Anxiety disorder Surgical History cholecystectomy Surgical History x 2 Hospitalization History surgeries Hospitalization History labor and delivery
--- OUTSIDE RECORDS SUMMARY | 2018-09-17 23:30 | XMS REPORT ---
Author Author KATIE HUDSON [facility] Address [address] [place] [address] Care Team Providers Care Belt Measurer Name Role Phone KATIE HUDSON Unavailable PROBLEMS Type Condition ICD9-CM Code [id number] Code Onset Dates Condition Status SNOMED Code Problem Diabetes E11.9 Active 04624622 Problem CAD (coronary artery disease) I25.10 Active 27445259 Problem Pharyngeal dysphagia R13.13 Active 61458419714412 Problem Osteoarthritis of knees, bilateral M17.0 Active 606935983 Problem Arthritis M19.90 Active 5258165 Problem Morbid obesity E66.01 Active 050895015 Problem Pharyngoesophageal dysphagia R13.14 Active 80607563 Problem Hyperlipemia E78.5 Active 14434054 ALLERGIES No Information SOCIAL HISTORY Never Assessed PLAN OF CARE VITAL SIGNS MEDICATIONS Medication Instructions Dosage Frequency Start Date End Date Duration Status Hydrocodone-Acetaminophen 10-325 MG Orally every 6 hrs 1 tablet as needed 6h August, 28 days Active RESULTS No Results PROCEDURES No Known procedures IMMUNIZATIONS No Known Immunizations MEDICAL (GENERAL) HISTORY Type Description Date Medical History diabetes mellitus Medical History morbid obesity Medical History hypertension Medical History chronic pain Medical History Anxiety disorder Surgical History cholecystectomy Surgical History x 2 Hospitalization History surgeries Hospitalization History labor and delivery
--- OUTSIDE RECORDS SUMMARY | 2018-09-17 23:30 | XMS REPORT ---
Author Author KATIE HUDSON Organization [employer] Address Unknown Phone Unavailable Care Team Providers Care Forklift Wheel Loader Name Role Phone KATIE HUDSON CP Unavailable Allergies No Known Allergies Problems Problem Type Condition ICD-9 Code Onset Dates Condition Status Problem Unspecified arthropathy, site unspecified 716.90 Active Problem Dysuria 788.1 Active Problem Reflux esophagitis 530.11 Active Problem Coronary atherosclerosis of unspecified type of vessel, [place] or graft 414.00 Active Problem Unspecified hereditary and idiopathic peripheral neuropathy 356.9 Active Problem PPV23 (PNEUMOVAX) DX V03.82 Active Problem Dermatophytosis of nail 110.1 Active 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
--- OUTSIDE RECORDS SUMMARY | 2018-09-17 23:31 | XMS REPORT ---
Author Author KATIE CELIS [facility] eClinical[employer] Address Unknown Phone Unavailable Care Team Providers Care Swing Grinder Name Role Phone KATIE CELIS CP Unavailable Allergies No Known Allergies Problems Problem Type Condition Code Onset Dates Condition Status Problem Unspecified arthropathy, site unspecified 716.90 Active Problem Dysuria 788.1 Active Problem Reflux esophagitis 530.11 Active Problem Coronary atherosclerosis of unspecified type of vessel, [place] or graft 414.00 Active Problem Unspecified hereditary and idiopathic peripheral neuropathy 356.9 Active Problem PPV23 (PNEUMOVAX) DX V03.82 Active Problem Dermatophytosis of nail 110.1 Active 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
--- OUTSIDE RECORDS SUMMARY | 2018-09-17 23:31 | XMS REPORT ---
Author Author KATIE HUDSON Organization [employer] Address Unknown Phone Unavailable Care Team Providers Care Hadoop Analyst Name Role Phone KATIE HUDSON CP Unavailable Allergies No Known Allergies Problems Problem Type Condition Code Onset Dates Condition Status Problem CAD (coronary artery disease) I25.10 Active Problem Unspecified hereditary and idiopathic peripheral neuropathy 356.9 Active Problem Diabetes E11.9 Active Problem Reflux esophagitis 530.11 Active Problem Unspecified arthropathy, site unspecified 716.90 Active Medications Medication Code System Code Instructions Start Date End Date Status Dosage Osphena [facility] [address]-25 60 MG Orally Once a day May 04, 2015 1 tablet with food Results No Known Results Summary Purpose eClinicalWorks Submission
--- OUTSIDE RECORDS SUMMARY | 2018-09-17 23:31 | XMS REPORT ---
Author Author KATIE HUDSON [facility] eClinicalWorks Address Unknown Phone Unavailable Care Team Providers Care Highway Painter Name Role Phone KATIE HUDSON CP Unavailable Allergies, Adverse Reactions, Alerts Substance Reaction Event Type contrast hives Non Drug Allergy Problems Problem Type Condition Code Onset Dates Condition Status Assessment Blood in urine R31.9 Active Assessment Arthritis M19.90 Active Assessment Diabetes E11.9 Active Assessment UTI (urinary tract infection) N39.0 Active Problem Morbid obesity E66.01 Active Problem Diabetes E11.9 Active Problem Arthritis M19.90 Active Problem Reflux esophagitis 530.11 Active Problem Unspecified arthropathy, site unspecified 716.90 Active Problem CAD (coronary artery disease) I25.10 Active Problem Unspecified hereditary and idiopathic peripheral neuropathy 356.9 Active Medications Medication Code System Code Instructions Start Date End Date Status Dosage Nystatin [facility] 82950486433 619182 UNIT/GM APPLY 3 TIMES PER DAY Metformin HCl [facility] 82653652559 1000 MG TAKE 1 TABLET BY ORAL ROUTE 2 TIMES PER DAY Easy Comfort Pen [place] [facility] [address] 31G X 8 MM Once a day May 14, 2015 1 pen needle Oxybutynin Chloride [facility] 47536854415 5 MG Orally 3 times a day 1 tablet Victoza [facility] [address]-99 18 MG/3ML Subcutaneous Once a day Apr 30, 2015 Week 1: 0.6 mg, Week 2: 1.2 mg, Week 3: 1.8mg Cozaar [facility] 16562938922 50 MG 1 tablet by Oral route 1 time per day for BP- take in PM Aspirin EC Low Dose [facility] 72018576470 81 MG TAKE ONE TABLET BY MOUTH DAILY Bactrim DS [facility] [address]-21 800-160 MG Orally Twice a day August 06, 2015 August 13, 2015 1 tablet Ibuprofen [facility] 08506755486 800 MG 1 Tablet by Oral route 3 times per day as needed for pain Hydrocodone-Acetaminophen [facility] [address]-60 10-325 MG Orally 3 times a day August 13, 2014 1 tablet as needed Gabapentin [facility] 15432440125 600 MG TAKE ONE TABLET BY MOUTH THREE TIMES DAILY Fluoxetine HCl [facility] 24367993493 40 MG TAKE 2 CAPSULES BY MOUTH DAILY IN THE MORNING Amitriptyline HCl [facility] 98693960480 50 MG TAKE 1 TABLET BY ORAL ROUTE 1 TIME PER DAY AT BEDTIME Insulin Detemir [facility] [address]-86 100 UNIT/ML Subcutaneous Once a day Apr 30, 2015 20 u Procedures Procedure Coding System Code Date URINALYSIS, AUTO, W/O SCOPE CPT-4 74111 August 06, 2015 [facility] CPT-4 NOBLL August 06, 2015 GLYCATED HEMOGLOBIN TEST CPT-4 34623 August 06, 2015 Office Visit, Est Pt., Level 4 CPT-4 59840 August 06, 2015 VENIPUNCT, ROUTINE* CPT-4 14209 August 06, 2015 Vital Signs Date/Time: August 06, 2015 Temperature 97.9 F Weight 339.0 lbs Height 66 in BMI 54.71 Index Blood Pressure Diastolic 84 mmHg Blood Pressure Systolic 136 mmHg Cardiac Monitoring Heart Rate 92 bpm Results No Known Results Summary Purpose eClinicalWorks Submission
--- OUTSIDE RECORDS SUMMARY | 2018-09-17 23:31 | XMS REPORT ---
Author Author KATIE HUDSON [facility] Address [address] [place] [address] Care Team Providers Care Commodities Broker Name Role Phone KATIE HUDSON Unavailable PROBLEMS Type Condition ICD9-CM Code [id number] Code Onset Dates Condition Status SNOMED Code Problem Diabetes E11.9 Active 62866360 Problem CAD (coronary artery disease) I25.10 Active 96806661 Problem Pharyngeal dysphagia R13.13 Active 19564831765029 Problem Osteoarthritis of knees, bilateral M17.0 Active 572582192 Problem Arthritis M19.90 Active 7034881 Problem Morbid obesity E66.01 Active 163677681 Problem Pharyngoesophageal dysphagia R13.14 Active 91598692 Problem Hyperlipemia E78.5 Active 35856994 ALLERGIES No Information SOCIAL HISTORY Never Assessed PLAN OF CARE VITAL SIGNS MEDICATIONS Medication Instructions Dosage Frequency Start Date End Date Duration Status Hydrocodone-Acetaminophen 10-325 MG Orally every 6 hrs 1 tablet as needed 6h Jun, 28 days Active RESULTS No Results PROCEDURES No Known procedures IMMUNIZATIONS No Known Immunizations MEDICAL (GENERAL) HISTORY Type Description Date Medical History diabetes mellitus Medical History morbid obesity Medical History hypertension Medical History chronic pain Medical History Anxiety disorder Surgical History cholecystectomy Surgical History x 2 Hospitalization History surgeries Hospitalization History labor and delivery
--- OUTSIDE RECORDS SUMMARY | 2018-09-17 23:31 | XMS REPORT ---
Author Author KATIE HUDSON Organization eClinicalWorks Address Unknown Phone Unavailable Care Team Providers Care Process Plant Operator Name Role Phone KATIE HUDSON CP Unavailable Allergies No Known Allergies Problems Problem Type Condition Code Onset Dates Condition Status Problem Unspecified arthropathy, site unspecified 716.90 Active Problem Dysuria 788.1 Active Problem Reflux esophagitis 530.11 Active Problem Coronary atherosclerosis of unspecified type of vessel, [place] or graft 414.00 Active Problem Unspecified hereditary and idiopathic peripheral neuropathy 356.9 Active Problem PPV23 (PNEUMOVAX) DX V03.82 Active Problem Dermatophytosis of nail 110.1 Active 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
--- OUTSIDE RECORDS SUMMARY | 2018-09-17 23:31 | XMS REPORT ---
Author Author KATIE HUDSON [facility] eClinicalWorks Address Unknown Phone Unavailable Care Team Providers Care Vegetable Ii Farmworker Name Role Phone KATIE HUDSON CP Unavailable Allergies, Adverse Reactions, Alerts Substance Reaction Event Type N.K.D.A. Info Not Available Non Drug Allergy Problems Problem Type Condition ICD-9 Code Onset Dates Condition Status Assessment Diabetes mellitus 250.00 Active Problem Unspecified arthropathy, site unspecified 716.90 Active Problem Dysuria 788.1 Active Assessment UTI (urinary tract infection) 599.0 Active Problem Reflux esophagitis 530.11 Active Problem Coronary atherosclerosis of unspecified type of vessel, [place] or graft 414.00 Active Problem Unspecified hereditary and idiopathic peripheral neuropathy 356.9 Active Problem PPV23 (PNEUMOVAX) DX V03.82 Active Problem Dermatophytosis of nail 110.1 Active 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 Problem Unspecified disorder of the teeth and supporting structures 525.9 Active Medications Medication Code System Code Instructions Start Date End Date Status Dosage Bactrim DS [facility] [address]-77 800-160 MG Orally 2 times a day Dec 23, 2014 Dec 28, 2014 1 tablet Clopidogrel Bisulfate [facility] 85480356872 75 MG 1 Tablet by Oral route 1 time per day take one tablet by mouth daily Gabapentin [facility] 35433447131 600 MG TAKE ONE TABLET BY MOUTH THREE TIMES DAILY Nystatin [facility] 93844202626 693843 UNIT/GM APPLY 3 TIMES PER DAY Metformin HCl [facility] 24464239320 1000 MG TAKE 1 TABLET BY ORAL ROUTE 2 TIMES PER DAY Cozaar [facility] [address]-42 50 mg 2014 1 tablet by Oral route 1 time per day for BP- take in PM Humulin 70/30 [facility] [address]-53 (70-30) 100 UNIT/ML Must be seen for more refill 10 UNITS BY SUBCUTANEOUS ROUTE 2 TIMES PER DAY Amitriptyline HCl [facility] 03366285798 50 MG TAKE 1 TABLET BY ORAL ROUTE 1 TIME PER DAY AT BEDTIME Hydrocodone-Acetaminophen [facility] [address]-15 10-325 MG Orally, must be seen before more refills TID August 13, 2014 1 tablet as needed Aspirin EC Low Dose [facility] 77105358887 81 MG TAKE ONE TABLET BY MOUTH DAILY Oxybutynin Chloride [facility] [address]-62 5 MG Orally 3 times a day September 04, 2014 1 tablet Procedures Procedure Coding System Code Date URINALYSIS, AUTO, W/O SCOPE CPT-4 87997 Dec 23, 2014 URINE CULTURE/COLONY COUNT CPT-4 36772 Dec 23, 2014 GLYCATED HEMOGLOBIN TEST CPT-4 31315 Dec 23, 2014 Office Visit, Est Pt., Level 3 CPT-4 85373 Dec 23, 2014 Vital Signs Date/Time: Dec 23, 2014 Temperature 97.8 F Weight 352.8 lbs Height 66 in BMI 56.94 Index Blood Pressure Diastolic 70 mmHg Blood Pressure Systolic 122 mmHg Cardiac Monitoring Heart Rate 80 bpm Results No Known Results Summary Purpose eClinicalWorks Submission
--- OUTSIDE RECORDS SUMMARY | 2018-09-17 23:31 | XMS REPORT ---
Author Author KATIE HUDSON Organization eClinicalWorks Address Unknown Phone Unavailable Care Team Providers Care Electron Gun Inspector Name Role Phone KATIE HUDSON CP Unavailable Allergies No Known Allergies Problems Problem Type Condition Code Onset Dates Condition Status Problem CAD (coronary artery disease) I25.10 Active Problem Unspecified hereditary and idiopathic peripheral neuropathy 356.9 Active Problem Diabetes E11.9 Active Problem Reflux esophagitis 530.11 Active Problem Unspecified arthropathy, site unspecified 716.90 Active Medications No Known Medications Results No Known Results Summary Purpose eClinicalWorks Submission
--- OUTSIDE RECORDS SUMMARY | 2018-09-17 23:31 | XMS REPORT ---
Author Author KATIE HUDSON Organization [employer]Clinical[employer] Address Unknown Phone Unavailable Care Team Providers Care Community Action Worker Name Role Phone KATIE HUDSON CP Unavailable Allergies No Known Allergies Problems Problem Type Condition ICD-9 Code Onset Dates Condition Status Problem Unspecified arthropathy, site unspecified 716.90 Active Problem Dysuria 788.1 Active Problem Reflux esophagitis 530.11 Active Problem Coronary atherosclerosis of unspecified type of vessel, [place] or graft 414.00 Active Problem Unspecified hereditary and idiopathic peripheral neuropathy 356.9 Active Problem PPV23 (PNEUMOVAX) DX V03.82 Active Problem Dermatophytosis of nail 110.1 Active 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
--- OUTSIDE RECORDS SUMMARY | 2018-09-17 23:31 | XMS REPORT ---
Author KATIE Patrick [facility] eClinicalWorks Address Unknown Phone Unavailable Care Team Providers Care Cnc Maintenance Mechanic Name Role Phone KATIE CELIS CP Unavailable Allergies, Adverse Reactions, Alerts Substance Reaction Event Type N.K.D.A. Info Not Available Non Drug Allergy Problems Problem Type Condition Code Onset Dates Condition Status Assessment Morbid obesity E66.01 Active Assessment Arthritis M19.90 Active Assessment Diabetes E11.9 Active Problem Morbid obesity E66.01 Active Problem Diabetes E11.9 Active Problem Arthritis M19.90 Active Problem Reflux esophagitis 530.11 Active Problem Unspecified arthropathy, site unspecified 716.90 Active Problem CAD (coronary artery disease) I25.10 Active Problem Unspecified hereditary and idiopathic peripheral neuropathy 356.9 Active Medications Medication Code System Code Instructions Start Date End Date Status Dosage Hydrocodone-Acetaminophen [facility] [address]-45 10-325 MG Orally,Last fill, must be seen by Dr Celis for more refills 3 times a day August 13, 2014 1 tablet as needed Gabapentin [facility] 62760113609 600 MG TAKE ONE TABLET BY MOUTH THREE TIMES DAILY Nystatin [facility] 88666880372 662002 UNIT/GM APPLY 3 TIMES PER DAY Metformin HCl [facility] 83888847627 1000 MG TAKE 1 TABLET BY ORAL ROUTE 2 TIMES PER DAY Cozaar [facility] [address]-32 50 mg 2014 1 tablet by Oral route 1 time per day for BP- take in PM Fluoxetine HCl [facility] [address]-24 40 MG Orally Once a day 1 capsule in the morning Amitriptyline HCl [facility] 10145180306 50 MG TAKE 1 TABLET BY ORAL ROUTE 1 TIME PER DAY AT BEDTIME Osphena [facility] [address]-58 60 MG Orally Once a day May 04, 2015 1 tablet with food Ibuprofen ND 76738478519 800 MG 1 Tablet by Oral route 3 times per day as needed for pain Aspirin EC Low Dose ND 73316784487 81 MG TAKE ONE TABLET BY MOUTH DAILY Insulin Detemir [facility] [address]-14 100 UNIT/ML Subcutaneous Once a day Apr 30, 2015 20 u hs Victoza [facility] [address]-10 18 MG/3ML Subcutaneous Once a day Apr 30, 2015 Week 1: 0.6 mg, Week 2: 1.2 mg, Week 3: 1.8mg Oxybutynin Chloride [facility] 68571858628 5 MG Orally 3 times a day 1 tablet Procedures Procedure Coding System Code Date MEASURE BLOOD OXYGEN LEVEL CPT-4 60510 May 12, 2015 Vital Signs Date/Time: May 12, 2015 Temperature 98.4 F Weight 340 lbs Height 66 in Oximetry 96 % Blood Pressure Diastolic 70 mmHg Blood Pressure Systolic 124 mmHg Cardiac Monitoring Heart Rate 88 bpm BMI 54.87 Index Results No Known Results Summary Purpose eClinicalWorks Submission
--- OUTSIDE RECORDS SUMMARY | 2018-09-17 23:31 | XMS REPORT ---
Author Author KATIE HUDSON [facility] Address [address] [place] [address] Care Team Providers Care Document Preparer Microfilming Name Role Phone KATIE HUDSON Unavailable PROBLEMS Type Condition ICD9-CM Code [id number] Code Onset Dates Condition Status SNOMED Code Problem Hyperlipemia E78.5 Active 01473511 Problem Arthritis M19.90 Active 8592921 Problem CAD (coronary artery disease) I25.10 Active 89183534 Problem Morbid obesity E66.01 Active 104223880 Problem Diabetes E11.9 Active 06292775 ALLERGIES Unknown Allergies SOCIAL HISTORY No smoking Hx information available PLAN OF CARE VITAL SIGNS MEDICATIONS Unknown Medications RESULTS No Results PROCEDURES No Known procedures IMMUNIZATIONS No Known Immunizations
--- OUTSIDE RECORDS SUMMARY | 2018-09-17 23:31 | XMS REPORT ---
Author Author KATIE HUDSON [facility] Address [address] [place] [address] Care Team Providers Care Rescue Boat Operator Name Role Phone KATIE HUDSON Unavailable PROBLEMS Type Condition ICD9-CM Code [id number] Code Onset Dates Condition Status SNOMED Code Problem Diabetes E11.9 Active 02231847 Problem CAD (coronary artery disease) I25.10 Active 27640219 Problem Pharyngeal dysphagia R13.13 Active 28660183568595 Problem Osteoarthritis of knees, bilateral M17.0 Active 910152900 Problem Arthritis M19.90 Active 9312205 Problem Morbid obesity E66.01 Active 881757079 Problem Pharyngoesophageal dysphagia R13.14 Active 67486213 Problem Hyperlipemia E78.5 Active 85008264 ALLERGIES Unknown Allergies SOCIAL HISTORY No smoking Hx information available PLAN OF CARE VITAL SIGNS MEDICATIONS Unknown Medications RESULTS No Results PROCEDURES No Known procedures IMMUNIZATIONS No Known Immunizations
--- OUTSIDE RECORDS SUMMARY | 2018-09-17 23:32 | XMS REPORT ---
Author Author KATIE HUDSON Organization [employer] Address Unknown Phone Unavailable Care Team Providers Care Senior Clinical Research Scientist Name Role Phone KATIE HUDSON CP Unavailable Allergies No Known Allergies Problems Problem Type Condition Code Onset Dates Condition Status Problem Unspecified arthropathy, site unspecified 716.90 Active Problem Dysuria 788.1 Active Problem Reflux esophagitis 530.11 Active Problem Coronary atherosclerosis of unspecified type of vessel, [place] or graft 414.00 Active Problem Unspecified hereditary and idiopathic peripheral neuropathy 356.9 Active Problem PPV23 (PNEUMOVAX) DX V03.82 Active Problem Dermatophytosis of nail 110.1 Active 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
--- OUTSIDE RECORDS SUMMARY | 2018-09-17 23:32 | XMS REPORT ---
Author Author KATIE HUDSON Organization [employer] Address Unknown Phone Unavailable Care Team Providers Care General I Farmworker Name Role Phone KATIE HUDSON CP Unavailable Allergies No Known Allergies Problems Problem Type Condition Code Onset Dates Condition Status Problem Unspecified arthropathy, site unspecified 716.90 Active Assessment Hyperlipemia E78.5 Active Problem Arthritis M19.90 Active Problem Morbid obesity E66.01 Active Problem Hyperlipemia E78.5 Active Problem Unspecified hereditary and idiopathic peripheral neuropathy 356.9 Active Problem Reflux esophagitis 530.11 Active Problem Diabetes E11.9 Active Problem CAD (coronary artery disease) I25.10 Active Medications Medication Code System Code Instructions Start Date End Date Status Dosage Lipitor [facility] [address]-42 40 mg Orally Once a day August 13, 2015 1 tablet Results No Known Results Summary Purpose [employer] Submission
--- OUTSIDE RECORDS SUMMARY | 2018-09-17 23:32 | XMS REPORT ---
Author Author KATIE HUDSON Organization [employer] Address Unknown Phone Unavailable Care Team Providers Care Carbon Accountant Name Role Phone KATIE HUDSON CP Unavailable Allergies No Known Allergies Problems Problem Type Condition Code Onset Dates Condition Status Problem Unspecified arthropathy, site unspecified 716.90 Active Problem Dysuria 788.1 Active Problem Reflux esophagitis 530.11 Active Problem Coronary atherosclerosis of unspecified type of vessel, [place] or graft 414.00 Active Problem Unspecified hereditary and idiopathic peripheral neuropathy 356.9 Active Problem PPV23 (PNEUMOVAX) DX V03.82 Active Problem Dermatophytosis of nail 110.1 Active 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
--- OUTSIDE RECORDS SUMMARY | 2018-09-17 23:32 | XMS REPORT ---
Author Author KATIE HUDSON Organization [employer] Address Unknown Phone Unavailable Care Team Providers Care Ward Helper Name Role Phone KATIE HUDSON CP Unavailable Allergies No Known Allergies Problems Problem Type Condition Code Onset Dates Condition Status Problem Unspecified arthropathy, site unspecified 716.90 Active Problem Dysuria 788.1 Active Problem Reflux esophagitis 530.11 Active Problem Coronary atherosclerosis of unspecified type of vessel, [place] or graft 414.00 Active Problem Unspecified hereditary and idiopathic peripheral neuropathy 356.9 Active Problem PPV23 (PNEUMOVAX) DX V03.82 Active Problem Dermatophytosis of nail 110.1 Active 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
--- OUTSIDE RECORDS SUMMARY | 2018-09-17 23:32 | XMS REPORT ---
Author Author KATIE HUDSON Organization [employer] Address Unknown Phone Unavailable Care Team Providers Care Shift Production Associate Name Role Phone KATIE HUDSON Unavailable Allergies No Known Allergies Problems Problem Type Condition Code Onset Dates Condition Status Problem Morbid obesity E66.01 Active Problem Diabetes E11.9 Active Problem Arthritis M19.90 Active Problem Reflux esophagitis 530.11 Active Problem Unspecified arthropathy, site unspecified 716.90 Active Problem CAD (coronary artery disease) I25.10 Active Problem Unspecified hereditary and idiopathic peripheral neuropathy 356.9 Active Medications No Known Medications Results No Known Results Summary Purpose [employer]Clinical[employer] Submission
--- OUTSIDE RECORDS SUMMARY | 2018-09-17 23:32 | XMS REPORT ---
Author Author EVELYN POST Organization [employer] Address Unknown Phone Unavailable Care Team Providers Care Advertising Sales Representative Name Role Phone EVELYN POST CP Unavailable Allergies No Known Allergies Problems Problem Type Condition Code Onset Dates Condition Status Problem Arthritis M19.90 Active Problem Morbid obesity E66.01 Active Problem Hyperlipemia E78.5 Active Problem Diabetes E11.9 Active Problem CAD (coronary artery disease) I25.10 Active Medications Medication Code System Code Instructions Start Date End Date Status Dosage Hydrocodone-Acetaminophen [facility] [address]-53 10-325 MG Orally q 6 h prn pain August 13, 2014 1 tablet as needed Results No Known Results Summary Purpose [employer]ClinicalWorks Submission
--- OUTSIDE RECORDS SUMMARY | 2018-09-17 23:32 | XMS REPORT ---
Author Author KATIE HUDSON [facility] Address [address] [place] [address] Care Team Providers Care Airport Operations Supervisor Name Role Phone KATIE HUDSON Unavailable PROBLEMS Type Condition ICD9-CM Code [id number] Code Onset Dates Condition Status SNOMED Code Problem Diabetes E11.9 Active 86364660 Problem CAD (coronary artery disease) I25.10 Active 00204168 Problem Pharyngeal dysphagia R13.13 Active 11357818965893 Problem Osteoarthritis of knees, bilateral M17.0 Active 692691073 Problem Arthritis M19.90 Active 6022552 Problem Morbid obesity E66.01 Active 901871449 Problem Pharyngoesophageal dysphagia R13.14 Active 34947780 Problem Hyperlipemia E78.5 Active 22429097 ALLERGIES Substance Reaction Event Type Date Status contrast hives Non Drug Allergy May, Active SOCIAL HISTORY Never Assessed PLAN OF CARE Activity Details Follow Up 3 Months Reason: VITAL SIGNS Height 66 in 2016-06-03 Weight 323.0 lbs 2016-06-03 Temperature 98.3 degrees Fahrenheit 2016-06-03 Heart Rate 82 bpm 2016-06-03 Respiratory Rate 20 2016-06-03 BMI 52.13 kg/m2 2016-06-03 Blood pressure systolic 124 mmHg 2016-06-03 Blood pressure diastolic 74 mmHg 2016-06-03 MEDICATIONS Medication Instructions Dosage Frequency Start Date End Date Duration Status Amitriptyline HCl 50 MG TAKE 1 TABLET BY ORAL ROUTE 1 TIME PER DAY AT BEDTIME 30 Active Victoza 18 MG/3ML Subcutaneous Once a day Week 1: 0.6 mg, Week 2: 1.2 mg, Week 3: 1.8mg 24h Apr, Active Easy Comfort Pen Brinson 31G X 8 MM 1 pen needle 24h Apr, Active Metformin HCl 1000 MG TAKE 1 TABLET BY ORAL ROUTE 2 TIMES PER DAY 30 Active Ibuprofen 800 MG 1 Tablet by Oral route 3 times per day as needed for pain Active Cozaar 50 MG 1 tablet by Oral route 1 time per day for BP- take in PM Active Nystatin 542336 UNIT/GM APPLY 3 TIMES PER DAY 10 Active Fluoxetine HCl 40 MG TAKE 2 CAPSULES BY MOUTH DAILY IN THE MORNING 30 Active Insulin Detemir 100 UNIT/ML Subcutaneous Once a day 20 u hs 24h 14 Apr, 2015 Active Hydrocodone-Acetaminophen 10-325 MG Orally every 6 hrs 1 tablet as needed 6h 17 May, 2016 Active Gabapentin 600 MG TAKE ONE TABLET BY MOUTH THREE TIMES DAILY 30 Active Oxybutynin Chloride 5 MG Orally 3 times a day 1 tablet 8h 30 Active Lipitor 40 mg Orally Once a day 1 tablet 24h Jul, Active RESULTS Name Result Date Reference Range A1C (IN HOUSE) 2016-06-03 A1C IN HOUSE 7.6 4.3 - 5.6 % Previous A1c 7.6 Lot [id number] Exp date 02/2018 MICROALBUMIN, URINE (IN HOUSE) 2016-06-03 MICROALBUMIN abnormal Lot # [id number] Exp date 05/2017 Clarity clear Color orange ALB 80 CRE 200 A:C (IN HOUSE) 30-300 Control + Control Lot # Exp UA LONG DIP (IN HOUSE) 2016-06-03 Lot # [id number] Exp date 04/2017 Clarity clear Color orange Odor yes GLU 2+ HALEY 1+ KET trace* SG >=1.030 BLO trace-lysed pH 5.5 Protein 1+ URO 2.0 NIT negative RIYA negative Lot # Exp MICROALBUMIN/CREATININE RATIO, URINE 2016-06-03 Creatinine, Urine 184.8 Not Estab. Microalbumin, Urine 56.6 Not Estab. Microalb/Creat Ratio 30.6 0.0-30.0 MICROALBUMIN/CREATININE RATIO, URINE 2016-06-03 Creatinine, Urine 184.8 Not Estab. Microalbumin, Urine 56.6 Not Estab. Microalb/Creat Ratio 30.6 0.0-30.0 CULTURE, URINE 2016-06-03 Urine Culture, Routine Final report Result 1 No growth PROCEDURES Procedure Date Ordered Result Body Site GLYCATED HEMOGLOBIN TEST Jun 03, 2016 MICROALBUMIN, SEMIQUANT Jun 03, 2016 LAB NOT BILLED BY [facility] Jun 03, 2016 IMMUNIZATIONS No Known Immunizations MEDICAL (GENERAL) HISTORY Type Description Date Medical History diabetes mellitus Medical History morbid obesity Medical History hypertension Medical History chronic pain Medical History Anxiety disorder Surgical History cholecystectomy Surgical History x 2 Hospitalization History surgeries Hospitalization History labor and delivery
--- OUTSIDE RECORDS SUMMARY | 2018-09-17 23:32 | XMS REPORT ---
Author Author ALVARO MITCHELL Organization [employer] Address Unknown Phone Unavailable Care Team Providers Care New Business Clerk Name Role Phone ALVARO MITCHELL CP Unavailable Allergies, Adverse Reactions, Alerts Substance Reaction Event Type contrast hives Non Drug Allergy Problems Problem Type Condition Code Onset Dates Condition Status Assessment Encounter for screening for malignant neoplasm of cervix Z12.4 Active Assessment Encounter for well woman exam Z01.419 Active Assessment Morbid obesity E66.01 Active Assessment Encounter for screening mammogram for breast cancer Z12.31 Active Problem Morbid obesity E66.01 Active Problem Diabetes E11.9 Active Problem Arthritis M19.90 Active Problem Reflux esophagitis 530.11 Active Problem Unspecified arthropathy, site unspecified 716.90 Active Problem CAD (coronary artery disease) I25.10 Active Problem Unspecified hereditary and idiopathic peripheral neuropathy 356.9 Active Medications Medication Code System Code Instructions Start Date End Date Status Dosage Gabapentin [facility] 04402070674 600 MG TAKE ONE TABLET BY MOUTH THREE TIMES DAILY Victoza [facility] [address]-71 18 MG/3ML Subcutaneous Once a day Apr 30, 2015 Week 1: 0.6 mg, Week 2: 1.2 mg, Week 3: 1.8mg Aspirin EC Low Dose [facility] 58910069601 81 MG TAKE ONE TABLET BY MOUTH DAILY Fluoxetine HCl [facility] 63791996946 40 MG TAKE 2 CAPSULES BY MOUTH DAILY IN THE MORNING Ibuprofen [facility] 32967887428 800 MG 1 Tablet by Oral route 3 times per day as needed for pain Easy Comfort Pen Spade [facility] [address] 31G X 8 MM Once a day May 14, 2015 1 pen needle Oxybutynin Chloride [facility] 69683281510 5 MG Orally 3 times a day 1 tablet Nystatin [facility] 76273744610 179092 UNIT/GM APPLY 3 TIMES PER DAY Metformin HCl [facility] 37095886589 1000 MG TAKE 1 TABLET BY ORAL ROUTE 2 TIMES PER DAY Hydrocodone-Acetaminophen [facility] [address]-67 10-325 MG Orally 3 times a day August 13, 2014 1 tablet as needed Cozaar [facility] 68472818025 50 MG 1 tablet by Oral route 1 time per day for BP- take in PM Amitriptyline HCl [facility] 55825432119 50 MG TAKE 1 TABLET BY ORAL ROUTE 1 TIME PER DAY AT BEDTIME Bactrim DS [facility] [address]-42 800-160 MG Orally Twice a day August 06, 2015 August 13, 2015 1 tablet Insulin Detemir [facility] [address]-89 100 UNIT/ML Subcutaneous Once a day Apr 30, 2015 20 u Procedures Procedure Coding System Code Date Office Visit, Est Pt., Level 3 CPT-4 13348 August 06, 2015 SPECIMEN HANDLING CPT-4 06156 August 06, 2015 Vital Signs Date/Time: August 06, 2015 Temperature 98.0 F Weight 340.0 lbs Height 66 in BMI 54.87 Index Blood Pressure Diastolic 63 mmHg Blood Pressure Systolic 120 mmHg Cardiac Monitoring Heart Rate 80 bpm Results Name Result Date Reference Range Unit Abnormality Flag PDF Report ----PDF Report1 [facility] [id number] PAP TEST W/ HPV REGARDLESS ----HPV, high-risk Negative [id number] Negative ----. . [id number] Summary Purpose eClinicalWorks Submission
--- OUTSIDE RECORDS SUMMARY | 2018-09-17 23:32 | XMS REPORT ---
Author Author KATIE HUDSON Organization [employer] Address Unknown Phone Unavailable Care Team Providers Care Watcher Automat Long Goods Name Role Phone KATIE HUDSON CP Unavailable Allergies No Known Allergies Problems Problem Type Condition ICD-9 Code Onset Dates Condition Status Problem Unspecified arthropathy, site unspecified 716.90 Active Problem Dysuria 788.1 Active Problem Reflux esophagitis 530.11 Active Problem Coronary atherosclerosis of unspecified type of vessel, [place] or graft 414.00 Active Problem Unspecified hereditary and idiopathic peripheral neuropathy 356.9 Active Problem PPV23 (PNEUMOVAX) DX V03.82 Active Problem Dermatophytosis of nail 110.1 Active 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
--- OUTSIDE RECORDS SUMMARY | 2018-09-17 23:32 | XMS REPORT ---
Author Author KATIE HUDSON Organization [employer] Address Unknown Phone Unavailable Care Team Providers Care Underwriting Support Specialist Name Role Phone KATIE HUDSON CP Unavailable Allergies No Known Allergies Problems Problem Type Condition Code Onset Dates Condition Status Problem Unspecified arthropathy, site unspecified 716.90 Active Assessment Arthritis M19.90 Active Problem Arthritis M19.90 Active Problem Morbid obesity E66.01 Active Problem Hyperlipemia E78.5 Active Problem Unspecified hereditary and idiopathic peripheral neuropathy 356.9 Active Problem Reflux esophagitis 530.11 Active Problem Diabetes E11.9 Active Problem CAD (coronary artery disease) I25.10 Active Medications Medication Code System Code Instructions Start Date End Date Status Dosage Hydrocodone-Acetaminophen [facility] [address]-54 10-325 MG Orally 3 times a day August 13, 2014 1 tablet as needed Results No Known Results Summary Purpose eClinicalWorks Submission
--- OUTSIDE RECORDS SUMMARY | 2018-09-17 23:32 | XMS REPORT ---
Author Author KATIE HUDSON [facility] Address [address] [place] [address] Care Team Providers Care Cutter Hand Name Role Phone KATIE HUDSON Unavailable PROBLEMS Type Condition ICD9-CM Code [id number] Code Onset Dates Condition Status SNOMED Code Problem Diabetes E11.9 Active 06291044 Problem CAD (coronary artery disease) I25.10 Active 61831324 Problem Pharyngeal dysphagia R13.13 Active 70462475796051 Problem Osteoarthritis of knees, bilateral M17.0 Active 300811872 Problem Arthritis M19.90 Active 5981627 Problem Morbid obesity E66.01 Active 430920028 Problem Pharyngoesophageal dysphagia R13.14 Active 75524545 Problem Hyperlipemia E78.5 Active 91433632 ALLERGIES No Information SOCIAL HISTORY Never Assessed PLAN OF CARE VITAL SIGNS MEDICATIONS Medication Instructions Dosage Frequency Start Date End Date Duration Status Diflucan 150 MG 1 tablet Jun, Active RESULTS No Results PROCEDURES No Known procedures IMMUNIZATIONS No Known Immunizations MEDICAL (GENERAL) HISTORY Type Description Date Medical History diabetes mellitus Medical History morbid obesity Medical History hypertension Medical History chronic pain Medical History Anxiety disorder Surgical History cholecystectomy Surgical History x 2 Hospitalization History surgeries Hospitalization History labor and delivery
--- OUTSIDE RECORDS SUMMARY | 2018-09-17 23:33 | XMS REPORT ---
Author Author EARL SANDERSON Organization [facility] Address [address] [place] [address] Care Team Providers Care Timber Management Assistant Name Role Phone EARL SANDERSON Unavailable PROBLEMS Type Condition ICD9-CM Code [id number] Code Onset Dates Condition Status SNOMED Code Problem Diabetes E11.9 Active 42032780 Problem CAD (coronary artery disease) I25.10 Active 64612249 Problem Pharyngeal dysphagia R13.13 Active 72541424676977 Problem Osteoarthritis of knees, bilateral M17.0 Active 408589451 Problem Arthritis M19.90 Active 0711462 Problem Morbid obesity E66.01 Active 941764405 Problem Pharyngoesophageal dysphagia R13.14 Active 46165372 Problem Hyperlipemia E78.5 Active 15245135 ALLERGIES Unknown Allergies SOCIAL HISTORY No smoking Hx information available PLAN OF CARE VITAL SIGNS MEDICATIONS Medication Instructions Dosage Frequency Start Date End Date Duration Status Hydrocodone-Acetaminophen 10-325 MG Orally, Must be seen for more refills every 6 hrs 1 tablet 6h Mar, Active RESULTS No Results PROCEDURES No Known procedures IMMUNIZATIONS No Known Immunizations
--- OUTSIDE RECORDS SUMMARY | 2018-09-17 23:33 | XMS REPORT | Continuity of Care Document ---
Author Organization Unknown Address Unknown Allergies Active Description Code Type Severity Reaction Onset Reported/Identified Relationship to Patient Clinical Status Yes iodinated radiocontrast agent Drug Allergy 06/23/2009 Medications There is no data. Problems Date Dx Coded Attending Type Code Diagnosis Diagnosed By 05/26/2009 BRITTANY MIRZA DO 250.02 DIABETES II UNCONTROLLED 05/26/2009 BRITTANY MIRZA DO 278.01 MORBID OBESITY 05/26/2009 BRITTANY MIRZA DO 428.0 CONGESTIVE HEART FAILURE, UNSPECIFIED 05/26/2009 KATIE HUDSON MD 250.02 DIABETES II UNCONTROLLED 05/26/2009 BECCA CACERES, KATIE 278.01 MORBID OBESITY 05/26/2009 BECCA CACERES, KATIE 428.0 CONGESTIVE HEART FAILURE, UNSPECIFIED 05/26/2009 250.02 DIABETES II UNCONTROLLED 05/26/2009 278.01 MORBID OBESITY 05/26/2009 428.0 CONGESTIVE HEART FAILURE, UNSPECIFIED 05/26/2009 KATIE HUDSON MD 250.02 DIABETES II UNCONTROLLED 05/26/2009 KATIE HUDSON MD 278.01 MORBID OBESITY 05/26/2009 BECCA CACERES, KATIE 428.0 CONGESTIVE HEART FAILURE, UNSPECIFIED 05/26/2009 KATIE HUDSON MD 250.02 DIABETES II UNCONTROLLED 05/26/2009 KATIE HUDSON MD 278.01 MORBID OBESITY 05/26/2009 KATIE HUDSON MD 428.0 CONGESTIVE HEART FAILURE, UNSPECIFIED 05/26/2009 KATIE HUDSON MD 250.02 DIABETES II UNCONTROLLED 05/26/2009 KATIE HUDSON MD 278.01 MORBID OBESITY 05/26/2009 KATIE HUDSON MD 428.0 CONGESTIVE HEART FAILURE, UNSPECIFIED 05/26/2009 KTAIE HUDSON MD 250.02 DIABETES II UNCONTROLLED 05/26/2009 KATIE HUDSON MD 278.01 MORBID OBESITY 05/26/2009 KATIE HUDSON MD 428.0 CONGESTIVE HEART FAILURE, UNSPECIFIED 05/26/2009 BRITTANY MIRZA DO 250.02 DIABETES II UNCONTROLLED 05/26/2009 BRITTANY MIRZA DO 278.01 MORBID OBESITY 05/26/2009 BRITTANY MIRZA DO 428.0 CONGESTIVE HEART FAILURE, UNSPECIFIED 05/26/2009 KATIE HUDSON MD 250.02 DIABETES II UNCONTROLLED 05/26/2009 BECCA CACERES, KATIE 278.01 MORBID OBESITY 05/26/2009 BECCA ACCERES, KATIE 428.0 CONGESTIVE HEART FAILURE, UNSPECIFIED 05/26/2009 BRITTANY MIRZA DO K 250.02 DIABETES II UNCONTROLLED 05/26/2009 BRITTANY MIRZA DO K 278.01 MORBID OBESITY 05/26/2009 BRITTANY MIRZA DO 428.0 CONGESTIVE HEART FAILURE, UNSPECIFIED 05/26/2009 KATIE HUDSON MD 250.02 DIABETES II UNCONTROLLED 05/26/2009 KATIE HUDSON MD 278.01 MORBID OBESITY 05/26/2009 BECCA CACERES, KATIE 428.0 CONGESTIVE HEART FAILURE, UNSPECIFIED 05/26/2009 KATIE HUDSON MD 250.02 DIABETES II UNCONTROLLED 05/26/2009 KATIE HUDSON MD 278.01 MORBID OBESITY 05/26/2009 KATIE HUDSON MD 428.0 CONGESTIVE HEART FAILURE, UNSPECIFIED 05/26/2009 BRITTANY MIRZA DO 250.02 DIABETES II UNCONTROLLED 05/26/2009 BRITTANY MIRZA DO K 278.01 MORBID OBESITY 05/26/2009 BRITTANY MIRZA DO 428.0 CONGESTIVE HEART FAILURE, UNSPECIFIED 05/26/2009 KATIE HUDSON MD 250.02 DIABETES II UNCONTROLLED 05/26/2009 KATIE HUDSON MD 278.01 MORBID OBESITY 05/26/2009 KATIE HUDSON MD 428.0 CONGESTIVE HEART FAILURE, UNSPECIFIED 05/26/2009 KATIE HUDSON MD 250.02 DIABETES II UNCONTROLLED 05/26/2009 KATIE HUDSON MD 278.01 MORBID OBESITY 05/26/2009 BECCA CACERES, KATIE 428.0 CONGESTIVE HEART FAILURE, UNSPECIFIED 05/26/2009 KATIE HUDSON MD 250.02 DIABETES II UNCONTROLLED 05/26/2009 KATIE HUDSON MD 278.01 MORBID OBESITY 05/26/2009 KATIE HUDSON MD 428.0 CONGESTIVE HEART FAILURE, UNSPECIFIED 06/23/2009 BRITTANY MIRZA DO K 250.00 DIABETES II CONTROLLED 06/23/2009 BRITTANY MIRZA DO K 272.4 HYPERLIPIDEMIA UNSPECIFIED 06/23/2009 MIRZA DO, BRITTANY K 599.0 Urinary Tract Infection 06/23/2009 BECCA CACERES, KATIE 250.00 DIABETES II CONTROLLED 06/23/2009 BECCA CACERES, KATIE 272.4 HYPERLIPIDEMIA UNSPECIFIED 06/23/2009 BECCA CACERES, KATIE 599.0 Urinary Tract Infection 06/23/2009 250.00 DIABETES II CONTROLLED 06/23/2009 272.4 HYPERLIPIDEMIA UNSPECIFIED 06/23/2009 599.0 Urinary Tract Infection 06/23/2009 BECCA CACERES, KATIE 250.00 DIABETES II CONTROLLED 06/23/2009 BECCA CACERES, KATIE 272.4 HYPERLIPIDEMIA UNSPECIFIED 06/23/2009 BECCA CACERES, KATIE 599.0 Urinary Tract Infection 06/23/2009 BECCA CACERES, KATIE 250.00 DIABETES II CONTROLLED 06/23/2009 BECCA CACERES, KATIE 272.4 HYPERLIPIDEMIA UNSPECIFIED 06/23/2009 BECCA CACERES, KATIE 599.0 Urinary Tract Infection 06/23/2009 BECCA CACERES, KATIE 250.00 DIABETES II CONTROLLED 06/23/2009 BECCA CACERES, KATIE 272.4 HYPERLIPIDEMIA UNSPECIFIED 06/23/2009 KATIE HUDSON MD 599.0 Urinary Tract Infection 06/23/2009 KATIE HUDSON MD 250.00 DIABETES II CONTROLLED 06/23/2009 BECCA CACERES, KATIE 272.4 HYPERLIPIDEMIA UNSPECIFIED 06/23/2009 KATIE HUDSON MD 599.0 Urinary Tract Infection 06/23/2009 DEVYN MIRZA DOA K 250.00 DIABETES II CONTROLLED 06/23/2009 DEVYN MIRZA DOA K 272.4 HYPERLIPIDEMIA UNSPECIFIED 06/23/2009 DEVYN MIRZA DOA K 599.0 Urinary Tract Infection 06/23/2009 KATIE HUDSON MD 250.00 DIABETES II CONTROLLED 06/23/2009 KATIE HUDSON MD 272.4 HYPERLIPIDEMIA UNSPECIFIED 06/23/2009 KATIE HUDSON MD 599.0 Urinary Tract Infection 06/23/2009 MIRZA DO BRITTANY K 250.00 DIABETES II CONTROLLED 06/23/2009 MIRZA DEVYN HERNADEZA K 272.4 HYPERLIPIDEMIA UNSPECIFIED 06/23/2009 DEVYN MIRZA DOA K 599.0 Urinary Tract Infection 06/23/2009 KATIE HUDSON MD 250.00 DIABETES II CONTROLLED 06/23/2009 KATIE HUDSON MD 272.4 HYPERLIPIDEMIA UNSPECIFIED 06/23/2009 KATIE HUDSON MD 599.0 Urinary Tract Infection 06/23/2009 BECCA CACERES, KATIE 250.00 DIABETES II CONTROLLED 06/23/2009 BECCA CACERES, KATIE 272.4 HYPERLIPIDEMIA UNSPECIFIED 06/23/2009 BECCA CACERES, KATIE 599.0 Urinary Tract Infection 06/23/2009 BRITTANY MIRZA DO 250.00 DIABETES II CONTROLLED 06/23/2009 YUKI HERNADEZ, BRITTANY Vazquez 272.4 HYPERLIPIDEMIA UNSPECIFIED 06/23/2009 BRITTANY MIRZA DO 599.0 Urinary Tract Infection 06/23/2009 BECCA CACERES, KATIE 250.00 DIABETES II CONTROLLED 06/23/2009 BECCA CACERES, KATIE 272.4 HYPERLIPIDEMIA UNSPECIFIED 06/23/2009 BECCA CACERES, KATIE 599.0 Urinary Tract Infection 06/23/2009 BECCA CACERES, KATIE 250.00 DIABETES II CONTROLLED 06/23/2009 BECCA CACERES, KATIE 272.4 HYPERLIPIDEMIA UNSPECIFIED 06/23/2009 BECCA CACERES, KATIE 599.0 Urinary Tract Infection 06/23/2009 BECCA CACERES, KATIE 250.00 DIABETES II CONTROLLED 06/23/2009 BECCA CACERES, KATIE 272.4 HYPERLIPIDEMIA UNSPECIFIED 06/23/2009 BECCA CACERES, KATIE 599.0 Urinary Tract Infection 08/31/2010 BRITTANY MIRZA DO 716.90 Unspecified Arthropathy Site Unspecified 08/31/2010 KATIE HUDSON MD 716.90 Unspecified Arthropathy Site Unspecified 08/31/2010 716.90 Unspecified Arthropathy Site Unspecified 08/31/2010 KATIE HUDSON MD 716.90 Unspecified Arthropathy Site Unspecified 08/31/2010 KATIE HUDSON MD 716.90 Unspecified Arthropathy Site Unspecified 08/31/2010 KATIE HUDSON MD 716.90 Unspecified Arthropathy Site Unspecified 08/31/2010 KATIE HUDSON MD 716.90 Unspecified Arthropathy Site Unspecified 08/31/2010 BRITTANY MIRZA DO 716.90 Unspecified Arthropathy Site Unspecified 08/31/2010 KATIE HUDSON MD 716.90 Unspecified Arthropathy Site Unspecified 08/31/2010 BRITTANY MIRZA DO 716.90 Unspecified Arthropathy Site Unspecified 08/31/2010 KATIE HUDSON MD 716.90 Unspecified Arthropathy Site Unspecified 08/31/2010 BECCA CACERES, KATIE 716.90 Unspecified Arthropathy Site Unspecified 08/31/2010 BRITTANY MIRZA DO 716.90 Unspecified Arthropathy Site Unspecified 08/31/2010 BECCA CACERES, KATIE 716.90 Unspecified Arthropathy Site Unspecified 08/31/2010 BECCA CACERES, KATIE 716.90 Unspecified Arthropathy Site Unspecified 08/31/2010 BECCA CACERES, KATIE 716.90 Unspecified Arthropathy Site Unspecified 09/16/2010 BRITTANY MIRZA DO 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 09/16/2010 BECCA CACERES, KATIE 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 09/16/2010 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 09/16/2010 BECCA CACERES, KATIE 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 09/16/2010 BECCA CACERES, KATIE 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 09/16/2010 BECCA CACERES, KATIE 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 09/16/2010 BECCA CACERES, KATIE 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 09/16/2010 BRITTANY MIRZA DO 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 09/16/2010 BECCA CACERES, KATIE 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 09/16/2010 BRITTANY MIRZA DO 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 09/16/2010 BECCA CACERES, KATIE 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 09/16/2010 BECCA CACERES, KATIE 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 09/16/2010 BRITTANY MIRZA DO 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 09/16/2010 BECCA CACERES, KATIE 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 09/16/2010 KATIE HUDSON MD 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 09/16/2010 KATIE HUDSON MD 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 11/16/2010 BRITTANY MIRZA DO V72.31 Dcs Engineer Exam, Routine 11/16/2010 BECCA CACERES, KATIE V72.31 Dcs Engineer Exam, Routine 11/16/2010 V72.31 Dcs Engineer Exam, Routine 11/16/2010 BECCA CACERES, KATIE V72.31 Dcs Engineer Exam, Routine 11/16/2010 BECCA CACERES, KATIE V72.31 Dcs Engineer Exam, Routine 11/16/2010 KATIE HUDSON MD V72.31 Dcs Engineer Exam, Routine 11/16/2010 KATIE HUDSON MD V72.31 Dcs Engineer Exam, Routine 11/16/2010 BRITTANY MIRZA DO V72.31 Dcs Engineer Exam, Routine 11/16/2010 KATIE HUDSON MD V72.31 Dcs Engineer Exam, Routine 11/16/2010 BRITTANY MIRZA DO V72.31 Dcs Engineer Exam, Routine 11/16/2010 KATIE HUDSON MD V72.31 Dcs Engineer Exam, Routine 11/16/2010 KATIE HUDSON MD V72.31 Dcs Engineer Exam, Routine 11/16/2010 BRITTANY MIRZA DO V72.31 Dcs Engineer Exam, Routine 11/16/2010 KATIE HUDSON MD V72.31 Dcs Engineer Exam, Routine 11/16/2010 KATIE HUDSNO MD V72.31 Dcs Engineer Exam, Routine 11/16/2010 KATEI HUDSON MD V72.31 Dcs Engineer Exam, Routine 01/25/2011 BRITTANY MIRZA DO V04.81 Flu Dx (3 Yrs And Above, Im) 01/25/2011 KATIE HUDSON MD V04.81 Flu Dx (3 Yrs And Above, Im) 01/25/2011 V04.81 Flu Dx (3 Yrs And Above, Im) 01/25/2011 KATIE HUDSON MD V04.81 Flu Dx (3 Yrs And Above, Im) 01/25/2011 KATIE HUDSON MD V04.81 Flu Dx (3 Yrs And Above, Im) 01/25/2011 KATIE HUDSON MD V04.81 Flu Dx (3 Yrs And Above, Im) 01/25/2011 KATIE HUDSON MD V04.81 Flu Dx (3 Yrs And Above, Im) 01/25/2011 BRITTANY MIRZA DO V04.81 Flu Dx (3 Yrs And Above, Im) 01/25/2011 KATIE HUDSON MD V04.81 Flu Dx (3 Yrs And Above, Im) 01/25/2011 BRITTANY MIRZA DO V04.81 Flu Dx (3 Yrs And Above, Im) 01/25/2011 KATIE HUDSON MD V04.81 Flu Dx (3 Yrs And Above, Im) 01/25/2011 KATIE HUDSON MD V04.81 Flu Dx (3 Yrs And Above, Im) 01/25/2011 BRITTANY MIRZA DO V04.81 Flu Dx (3 Yrs And Above, Im) 01/25/2011 BECCA CACERES, KATIE V04.81 Flu Dx (3 Yrs And Above, Im) 01/25/2011 BECCA CACERES, KATIE V04.81 Flu Dx (3 Yrs And Above, Im) 01/25/2011 BECCA CACERES, KATIE V04.81 Flu Dx (3 Yrs And Above, Im) 04/21/2011 YUKI HERNADEZ, BRITTANY Vazquez 414.00 CAD 04/21/2011 BECCA CACERES, KATIE 414.00 CAD 04/21/2011 414.00 CAD 04/21/2011 BECCA CACERES, KATIE 414.00 CAD 04/21/2011 BECCA CACERES, KATIE 414.00 CAD 04/21/2011 BECCA CACERES, KATIE 414.00 CAD 04/21/2011 BECCA CACERES, KATIE 414.00 CAD 04/21/2011 YUKI HERNADEZ, BRITTANY Vazquez 414.00 CAD 04/21/2011 BECCA CACERES, KATIE 414.00 CAD 04/21/2011 BRITTANY MIRZA DO 414.00 CAD 04/21/2011 BECCA CACERES, KATIE 414.00 CAD 04/21/2011 BECCA CACERES, KATIE 414.00 CAD 04/21/2011 BRITTANY MIRZA DO 414.00 CAD 04/21/2011 BECCA CACERES, KATIE 414.00 CAD 04/21/2011 BECCA CACERES, KATIE 414.00 CAD 04/21/2011 BECCA CACERES, KATIE 414.00 CAD 08/19/2011 BRITTANY MIRZA DO 530.11 REFLUX ESOPHAGITIS 08/19/2011 BECCA CACERES, KATIE 530.11 REFLUX ESOPHAGITIS 08/19/2011 530.11 REFLUX ESOPHAGITIS 08/19/2011 BECCA CACERES, KATIE 530.11 REFLUX ESOPHAGITIS 08/19/2011 BECCA CACERES, KATIE 530.11 REFLUX ESOPHAGITIS 08/19/2011 BECCA CACERES, KATIE 530.11 REFLUX ESOPHAGITIS 08/19/2011 BECCA CACERES, KATIE 530.11 REFLUX ESOPHAGITIS 08/19/2011 BRITTANY MIRZA DO 530.11 REFLUX ESOPHAGITIS 08/19/2011 BECCA CACERES, KATIE 530.11 REFLUX ESOPHAGITIS 08/19/2011 BRITTANY MIRZA DO 530.11 REFLUX ESOPHAGITIS 08/19/2011 BECCA CACERES, KATIE 530.11 REFLUX ESOPHAGITIS 08/19/2011 BECCA CACERES, KATIE 530.11 REFLUX ESOPHAGITIS 08/19/2011 BRITTANY MIRZA DO 530.11 REFLUX ESOPHAGITIS 08/19/2011 KATIE HUDSON MD 530.11 REFLUX ESOPHAGITIS 08/19/2011 KATIE HUDSON MD 530.11 REFLUX ESOPHAGITIS 08/19/2011 BECCA CACERES, KATIE 530.11 REFLUX ESOPHAGITIS 03/16/2012 BRITTANY MIRZA DO 788.1 DYSURIA 03/16/2012 KATIE HUDSON MD8.1 DYSURIA 03/16/2012 788.1 DYSURIA 03/16/2012 KATIE HUDSON MD8.1 DYSURIA 03/16/2012 KATIE HUDSON MD.1 DYSURIA 03/16/2012 KATIE HUDSON MD8.1 DYSURIA 03/16/2012 KATIE HUDSON MD8.1 DYSURIA 03/16/2012 BRITTANY MIRZA DO 788.1 DYSURIA 03/16/2012 KATIE HUDSON MD 788.1 DYSURIA 03/16/2012 BRITTANY MIRZA DO 788.1 DYSURIA 03/16/2012 KATIE HUDSON MD 788.1 DYSURIA 03/16/2012 KATIE HUDSON MD 788.1 DYSURIA 03/16/2012 BRITTANY MIRZA DO 788.1 DYSURIA 03/16/2012 KATIE HUDSON MD 788.1 DYSURIA 03/16/2012 KATIE HUDSON MD 788.1 DYSURIA 03/16/2012 KATIE HUDSON MD8.1 DYSURIA 03/22/2012 BRITTANY MIRZA DO 733.92 CHONDROMALACIA 03/22/2012 KATIE HUDSON MD 733.92 CHONDROMALACIA 03/22/2012 733.92 CHONDROMALACIA 03/22/2012 KATIE HUDSON MD 733.92 CHONDROMALACIA 03/22/2012 KATIE HUDSON MD 733.92 CHONDROMALACIA 03/22/2012 KATIE HUDSON MD 733.92 CHONDROMALACIA 03/22/2012 BRITTANY MIRZA DO 733.92 CHONDROMALACIA 03/22/2012 KATIE HUDSON MD3.92 CHONDROMALACIA 03/22/2012 BRITTANY MIRZA DO 733.92 CHONDROMALACIA 03/22/2012 BECCA CACERES, KATIE 733.92 CHONDROMALACIA 03/22/2012 KATIE HUDSON MD 733.92 CHONDROMALACIA 03/22/2012 BRITTANY MIRZA DO 733.92 CHONDROMALACIA 03/22/2012 BECCA CACERES, KATIE 733.92 CHONDROMALACIA 03/22/2012 KATIE HUDSON MD 733.92 CHONDROMALACIA 03/22/2012 KATIE HUDSON MD 733.92 CHONDROMALACIA 04/18/2012 BRITTANY MIRZA DO 356.9 NEUROPATHY 04/18/2012 BECCA CACERES, KATIE 356.9 NEUROPATHY 04/18/2012 356.9 NEUROPATHY 04/18/2012 BECCA CACERES, KATIE 356.9 NEUROPATHY 04/18/2012 BECCA CACERES, KATIE 356.9 NEUROPATHY 04/18/2012 BECCA CACERES, KATIE 356.9 NEUROPATHY 04/18/2012 BRITTANY MIRZA DO 356.9 NEUROPATHY 04/18/2012 BECCA CACERES, KATIE 356.9 NEUROPATHY 04/18/2012 BRITTANY MIRZA DO 356.9 NEUROPATHY 04/18/2012 BECCA CACERES, KATIE 356.9 NEUROPATHY 04/18/2012 BECCA CACERES, KATIE 356.9 NEUROPATHY 04/18/2012 BRITTANY MIRZA DO 356.9 NEUROPATHY 04/18/2012 BECCA CACERES, KATIE 356.9 NEUROPATHY 04/18/2012 KATIE HUDSON MD 356.9 NEUROPATHY 04/18/2012 BECCA CACREES, KATIE 356.9 NEUROPATHY 10/25/2012 525.9 UNSPECIFIED DISORDER OF THE TEETH AND SUPPORTING STRUCTURES 10/25/2012 KATIE HUDSON MD 525.9 UNSPECIFIED DISORDER OF THE TEETH AND SUPPORTING STRUCTURES 10/25/2012 KATIE HUDSON MD 525.9 UNSPECIFIED DISORDER OF THE TEETH AND SUPPORTING STRUCTURES 10/25/2012 KATIE HUDSON MD 525.9 UNSPECIFIED DISORDER OF THE TEETH AND SUPPORTING STRUCTURES 10/25/2012 BRITTANY MIRZA DO 525.9 UNSPECIFIED DISORDER OF THE TEETH AND SUPPORTING STRUCTURES 10/25/2012 KATIE HUDSON MD 525.9 UNSPECIFIED DISORDER OF THE TEETH AND SUPPORTING STRUCTURES 10/25/2012 BRITTANY MIRZA DO 525.9 UNSPECIFIED DISORDER OF THE TEETH AND SUPPORTING STRUCTURES 10/25/2012 KATIE HUDSON MD 525.9 UNSPECIFIED DISORDER OF THE TEETH AND SUPPORTING STRUCTURES 10/25/2012 KATIE HUDSON MD 525.9 UNSPECIFIED DISORDER OF THE TEETH AND SUPPORTING STRUCTURES 10/25/2012 BRITTANY MIRZA DO 525.9 UNSPECIFIED DISORDER OF THE TEETH AND SUPPORTING STRUCTURES 10/25/2012 KATIE HUDSON MD 525.9 UNSPECIFIED DISORDER OF THE TEETH AND SUPPORTING STRUCTURES 10/25/2012 KATIE HUDSON MD 525.9 UNSPECIFIED DISORDER OF THE TEETH AND SUPPORTING STRUCTURES 10/25/2012 KATIE HUDSON MD 525.9 UNSPECIFIED DISORDER OF THE TEETH AND SUPPORTING STRUCTURES 03/10/2014 KATIE HUDSON MD 110.1 DERMATOPHYTOSIS OF NAIL 03/10/2014 KATIE HUDSON MD V03.82 PCV-13 (PREVNAR) DX 03/10/2014 KATIE HUDSON MD 110.1 DERMATOPHYTOSIS OF NAIL 03/10/2014 KATIE HUDSON MD V03.82 PCV-13 (PREVNAR) DX 06/12/2014 KATIE HUDSON MD 716.90 UNSPECIFIED ARTHROPATHY SITE UNSPECIFIED Procedures Code Description [place] [address] ROUTINE VENIPUNCTURE 03/16/2012 91325 UA W/ CULTURE IF INDICATED 03/16/2012 25844 URINE DRUG SCREEN (IN-HOUSE) 03/16/2012 16767 A1C (IN-HOUSE) 03/16/2012 61436 CBC 03/16/2012 61145 CMP 03/16/2012 60225 LIPID PANEL 03/16/2012 [id number] GFR CALC (RESULT ONLY) 03/16/2012 13457 CULTURE URINE 03/18/2012 91970 JOINT INJECTION- LARGE JOINT (SPECIFY MEDCIN DESCRIPTION) 03/22/2012 78016 ROUTINE VENIPUNCTURE 03/08/2013 80459 A1C (IN-HOUSE) 03/08/2013 [id number] GFR CALC (RESULT ONLY) 03/08/2013 25648 CMP 03/08/2013 85700 LIPID PANEL 03/08/2013 46848 JOINT INJECTION- LARGE JOINT (SPECIFY MEDCIN DESCRIPTION) 06/06/2013 01774 UA W/ CULTURE IF INDICATED 06/06/2013 78850 CULTURE URINE 06/08/2013 [facility] 09/26/2013 22741 A1C (IN-HOUSE) 09/26/2013 63242 UA W/ CULTURE IF INDICATED 09/26/2013 48948 CULTURE URINE 09/28/2013 19107 OXIMETRY - OVERNIGHT 10/07/2013 67408 A1C (IN-HOUSE) 02/06/2014 90550 JOINT INJECTION- LARGE JOINT (SPECIFY MEDCIN DESCRIPTION) 02/06/2014 J1040 DEPO MEDROL 80 MG INJ 02/06/2014 91572 ROUTINE VENIPUNCTURE 03/10/2014 [id number] GFR CALC (RESULT ONLY) 03/10/2014 94331 CMP 03/10/2014 Results Test Result Range Comp. Metabolic Panel (14) - 01/14/16 17:38 Glucose, Serum 165 mg/dL 65-99 BUN 17 mg/dL 8-27 Creatinine, Serum 0.94 mg/dL 0.57-1.00 eGFR If NonAfricn Am 66 mL/min/1.73 >59 eGFR If Africn Am 76 mL/min/1.73 >59 BUN/Creatinine Ratio 18 11-26 Sodium, Serum 138 mmol/L 134-144 Potassium, Serum 4.7 mmol/L 3.5-5.2 Chloride, Serum 98 mmol/L 97-108 Carbon Dioxide, Total 26 mmol/L 18-29 Calcium, Serum 8.9 mg/dL 8.7-10.3 Protein, Total, Serum 6.6 g/dL 6.0-8.5 Albumin, Serum 3.5 g/dL 3.6-4.8 Globulin, Total 3.1 g/dL 1.5-4.5 A/G Ratio 1.1 1.1-2.5 Bilirubin, Total 0.3 mg/dL 0.0-1.2 Alkaline Phosphatase, S 65 IU/L 39-117 AST (SGOT) 32 IU/L 0-40 ALT (SGPT) 25 IU/L 0-32 Microalb/Creat Ratio, Randm Ur - 06/03/16 08:04 Creatinine, Urine 184.8 mg/dL Not Estab. Microalbumin, Urine 56.6 ug/mL Not Estab. Microalb/Creat Ratio 30.6 mg/g creat 0.0-30.0 Urine Culture, Routine - 06/03/16 08:04 Urine Culture, Routine Note Urine Culture, Routine - 01/26/17 15:01 Urine Culture, Routine Note CULTURE, URINE - 01/26/17 15:01 Urine Culture, Routine Final report NRG Result 1 Escherichia coli NRG Antimicrobial Susceptibility NRG [facility] - 10/06/17 16:29 GLUCOSE 121 mg/dL 65-99 UREA NITROGEN (BUN) 23 mg/dL 7-25 CREATININE 0.90 mg/dL 0.50-0.99 eGFR NON-AFR. [place] 69 mL/min/1.73m2 > OR=60 eGFR 79 mL/min/1.73m2 > OR=60 BUN/CREATININE RATIO NOT APPLICABLE (calc) 6-22 SODIUM 139 mmol/L 135-146 POTASSIUM 4.0 mmol/L 3.5-5.3 CHLORIDE 101 mmol/L 98-110 CARBON DIOXIDE 26 mmol/L 20-31 CALCIUM 9.1 mg/dL 8.6-10.4 PROTEIN, TOTAL 7.5 g/dL 6.1-8.1 ALBUMIN 3.9 g/dL 3.6-5.1 GLOBULIN 3.6 g/dL (calc) 1.9-3.7 ALBUMIN/GLOBULIN RATIO 1.1 (calc) 1.0-2.5 BILIRUBIN, TOTAL 0.6 mg/dL 0.2-1.2 ALKALINE PHOSPHATASE 61 U/L 33-130 AST 42 U/L 10-35 ALT 26 U/L 6-29 CBC - 03/29/18 15:09 WHITE BLOOD CELL COUNT 6.5 Thousand/uL 3.8-10.8 RED BLOOD CELL COUNT 4.17 Million/uL 3.80-5.10 HEMOGLOBIN 13.4 g/dL 11.7-15.5 HEMATOCRIT 39.1 % 35.0-45.0 MCV 93.8 fL 80.0-100.0 MCH 32.1 pg 27.0-33.0 MCHC 34.3 g/dL 32.0-36.0 RDW 12.4 % 11.0-15.0 PLATELET COUNT 250 Thousand/uL 140-400 MPV 9.2 fL 7.5-12.5 ABSOLUTE NEUTROPHILS 4225 cells/uL 0765-6941 ABSOLUTE LYMPHOCYTES 1697 cells/uL 850-3900 ABSOLUTE MONOCYTES 397 cells/uL 200-950 ABSOLUTE EOSINOPHILS 150 cells/uL 15-500 ABSOLUTE BASOPHILS 33 cells/uL 0-200 NEUTROPHILS 65 % NRG LYMPHOCYTES 26.1 % NRG MONOCYTES 6.1 % NRG EOSINOPHILS 2.3 % NRG BASOPHILS 0.5 % NRG Encounters ACCT No. Visit Date/Time Discharge Status Pt. Type Provider Facility Loc./Unit Complaint [id number] 06/12/2014 14:34:00 06/12/2014 23:59:59 CLS Outpatient KATIE HUDSON MD [id number] 03/10/2014 13:49:00 03/10/2014 23:59:59 CLS Outpatient KATIE HUDSON MD [id number] 02/06/2014 14:56:00 02/06/2014 23:59:59 CLS Outpatient BRITTANY MIRZA DO [id number] 02/06/2014 14:01:00 02/06/2014 23:59:59 CLS Outpatient KATIE HUDSON MD [id number] 09/26/2013 13:12:00 09/26/2013 23:59:59 CLS Outpatient KATIE HUDSON MD [id number] 09/26/2013 13:12:00 09/26/2013 23:59:59 CLS Outpatient KATIE HUDSON MD [id number] 09/26/2013 12:43:00 09/26/2013 23:59:59 CLS Outpatient BRITTANY MIRZA DO [id number] 06/06/2013 14:02:00 06/06/2013 23:59:59 CLS Outpatient KATIE HUDSON MD [id number] 06/06/2013 13:04:00 06/06/2013 23:59:59 CLS Outpatient BRITTANY MIRZA DO [id number] 03/08/2013 14:26:00 03/08/2013 23:59:59 CLS Outpatient KATIE HUDSON MD [id number] 03/08/2013 14:26:00 03/08/2013 23:59:59 CLS Outpatient KATIE HUDSON MD [id number] 10/25/2012 15:19:00 10/25/2012 23:59:59 CLS Outpatient KATIE HUDSON MD [id number] 03/22/2012 13:00:00 03/22/2012 23:59:59 CLS Outpatient BRITTANY MIRZA DO [id number] 03/16/2012 10:37:00 03/16/2012 23:59:59 [place] [id number] 08/19/2011 09:42:00 08/19/2011 23:59:59 CLS Outpatient KATIE HUDSON MD [id number] 10/25/2012 15:19:00 Document Registration [id number] 01/15/2016 07:06:00 Document Registration [id number] 06/08/2016 03:06:00 Document Registration [id number] 01/29/2017 16:06:00 Document Registration [id number] 03/29/2018 14:20:00 03/29/2018 23:59:59 [facility] Megan HUDSON MD, KATIE [facility] [id number] 03/29/2018 14:20:00 Document Registration [id number] 10/06/2017 16:00:00 Document Registration [id number] 01/26/2017 15:00:00 Document Registration
--- OUTSIDE RECORDS SUMMARY | 2018-09-17 23:33 | XMS REPORT ---
Author Author KATIE HUDSON Organization [employer] Address Unknown Phone Unavailable Care Team Providers Care Edger Hand Name Role Phone KATIE HUDSON CP Unavailable Allergies No Known Allergies Problems Problem Type Condition Code Onset Dates Condition Status Problem Arthritis M19.90 Active Problem Morbid obesity E66.01 Active Problem Hyperlipemia E78.5 Active Problem Diabetes E11.9 Active Problem CAD (coronary artery disease) I25.10 Active Medications Medication Code System Code Instructions Start Date End Date Status Dosage Hydrocodone-Acetaminophen [facility] [address]-34 10-325 MG Orally q 6 h prn pain August 13, 2014 1 tablet as needed Results No Known Results Summary Purpose [employer] Submission
--- OUTSIDE RECORDS SUMMARY | 2018-09-17 23:33 | XMS REPORT ---
Author Author KATIE HUDSON [facility] Address [address] [place] [address] Care Team Providers Care Boarder Hand Name Role Phone KATIE HUDSON Unavailable PROBLEMS Type Condition ICD9-CM Code MYE28-VL Code Onset Dates Condition Status SNOMED Code Problem Diabetes E11.9 Active 34240403 Problem CAD (coronary artery disease) I25.10 Active 31777841 Problem Pharyngeal dysphagia R13.13 Active 88424086988771 Problem Osteoarthritis of knees, bilateral M17.0 Active 764810687 Problem Arthritis M19.90 Active 2454653 Problem Morbid obesity E66.01 Active 801454830 Problem Pharyngoesophageal dysphagia R13.14 Active 71461218 Problem Hyperlipemia E78.5 Active 49001650 ALLERGIES No Information SOCIAL HISTORY Never Assessed PLAN OF CARE VITAL SIGNS MEDICATIONS Unknown [...]
--- OUTSIDE RECORDS SUMMARY | 2018-09-17 23:33 | XMS REPORT ---
Author Author KATIE HUDSON Organization [employer] Address Unknown Phone Unavailable Care Team Providers Care Beverage Manager Name Role Phone KATIE HUDSON CP Unavailable Allergies No Known Allergies Problems Problem Type Condition ICD-9 Code Onset Dates Condition Status Problem Unspecified arthropathy, site unspecified 716.90 Active Problem Dysuria 788.1 Active Problem Reflux esophagitis 530.11 Active Problem Coronary atherosclerosis of unspecified type of vessel, pala or graft 414.00 Active Problem Unspecified hereditary and idiopathic peripheral neuropathy 356.9 Active Problem PPV23 (PNEUMOVAX) DX V03.82 Active Problem Dermatophytosis of nail 110.1 Active 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
--- OUTSIDE RECORDS SUMMARY | 2018-09-17 23:33 | XMS REPORT ---
Author Author NATALIO GUNN [facility] eClinicalWorks Address Unknown Phone Unavailable Care Team Providers Care Banquet Lead Name Role Phone NATALIO GUNN Unavailable Allergies No Known Allergies Problems Problem Type Condition Code Onset Dates Condition Status Problem CAD (coronary artery disease) I25.10 Active Problem Unspecified hereditary and idiopathic peripheral neuropathy 356.9 Active Problem Diabetes E11.9 Active Assessment Osteoarthritis of knees, bilateral M17.0 Active Problem Reflux esophagitis 530.11 Active Problem Unspecified arthropathy, site unspecified 716.90 Active Medications No Known Medications Procedures Procedure Coding System Code Date Office Visit, Est Pt., Level 3 CPT-4 00628 Apr 30, 2015 DEPO MEDROL 80 MG/ML CPT-4 J1040 Apr 30, 2015 DRAIN/INJECT, JOINT/BURSA CPT-4 30996 Apr 30, 2015 Vital Signs Date/Time: Apr 30, 2015 Blood Pressure Diastolic 64 mmHg Blood Pressure Systolic 122 mmHg Height 66 in Results Name Result Date Reference Range Unit Abnormality Flag JOINT INJECTION-LARGE JOINT (specify site) Summary Purpose eClinicalWorks Submission
[2018-09-17 23:49] VITALS: BP 141/77
--- OUTSIDE RECORDS SUMMARY | 2018-09-18 00:09 | XMS REPORT | Continuity of Care Document ---
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 11/16/2010 BRITTANY MIRZA DO V72.31 Section Repairer Exam, Routine 11/16/2010 BECCA CACERES, KATIE V72.31 Section Repairer Exam, Routine 11/16/2010 V72.31 Section Repairer Exam, Routine 11/16/2010 BECCA CACERES, KATIE V72.31 Section Repairer Exam, Routine 11/16/2010 BECCA CACERES, KATIE V72.31 Section Repairer Exam, Routine 11/16/2010 KATIE HUDSON MD V72.31 Section Repairer Exam, Routine 11/16/2010 KATIE HUDSON MD V72.31 Section Repairer Exam, Routine 11/16/2010 BRITTANY MIRZA DO V72.31 Section Repairer Exam, Routine 11/16/2010 AKTIE HUDSON MD V72.31 Section Repairer Exam, Routine 11/16/2010 BRITTANY MIRZA DO V72.31 Section Repairer Exam, Routine 11/16/2010 KATIE HUDSON MD V72.31 Section Repairer Exam, Routine 11/16/2010 KATIE HUDSON MD V72.31 Section Repairer Exam, Routine 11/16/2010 BRITTANY MIRZA DO V72.31 Section Repairer Exam, Routine 11/16/2010 KATIE HUDSON MD V72.31 Section Repairer Exam, Routine 11/16/2010 KATIE HUDSON MD V72.31 Section Repairer Exam, Routine 11/16/2010 KATIE HUDSON MD V72.31 Section Repairer Exam, Routine 01/25/2011 BRITTANY MIRZA DO V04.81 [...] Dx (3 Yrs And Above, Im) 01/25/2011 RBITTANY MIRZA DO V04.81 Flu Dx (3 Yrs [...] KATIE HUDSON MD 356.9 NEUROPATHY 04/18/2012 BECCA CACERES, KATIE 356.9 NEUROPATHY 10/25/2012 525.9 UNSPECIFIED DISORDER [...] Procedures Code [place] [address] ROUTINE VENIPUNCTURE 03/16/2012 56179 UA W/ CULTURE IF INDICATED 03/16/2012 98777 URINE DRUG SCREEN (IN-HOUSE) 03/16/2012 19978 A1C (IN-HOUSE) 03/16/2012 40995 CBC 03/16/2012 40179 CMP 03/16/2012 07978 LIPID PANEL 03/16/2012 4975173 GFR CALC (RESULT ONLY) 03/16/2012 12486 CULTURE URINE 03/18/2012 74715 JOINT INJECTION- LARGE JOINT (SPECIFY MEDCIN DESCRIPTION) 03/22/2012 43889 ROUTINE VENIPUNCTURE 03/08/2013 07607 A1C (IN-HOUSE) 03/08/2013 9375852 GFR CALC (RESULT ONLY) 03/08/2013 85225 CMP 03/08/2013 68047 LIPID PANEL 03/08/2013 74590 JOINT INJECTION- LARGE JOINT (SPECIFY MEDCIN DESCRIPTION) 06/06/2013 93820 UA W/ CULTURE IF INDICATED 06/06/2013 72484 CULTURE URINE 06/08/2013 [facility] 09/26/2013 00176 A1C (IN-HOUSE) 09/26/2013 97779 UA W/ CULTURE IF INDICATED 09/26/2013 13305 CULTURE URINE 09/28/2013 09481 OXIMETRY - OVERNIGHT 10/07/2013 45473 A1C (IN-HOUSE) 02/06/2014 07915 JOINT INJECTION- LARGE JOINT (SPECIFY MEDCIN DESCRIPTION) 02/06/2014 J1040 DEPO MEDROL 80 MG INJ 02/06/2014 10841 ROUTINE VENIPUNCTURE 03/10/2014 4382041 GFR CALC (RESULT ONLY) 03/10/2014 33210 CMP 03/10/2014 Results Test Result Range Comp. [...] - 06/03/16 08:04 Urine Culture, Routine Note CULTURE, URINE - 01/26/17 15:01 Urine Culture, Routine Final report NRG Result 1 Escherichia coli NRG Antimicrobial Susceptibility NRG Urine Culture, Routine - 01/26/17 15:01 Urine Culture, Routine Note CMP - 10/06/17 16:29 GLUCOSE 121 mg/dL 65-99 UREA NITROGEN (BUN) 23 mg/dL 7-25 CREATININE 0.90 mg/dL 0.50-0.99 eGFR NON-AFR. SRI LANKAN 69 mL/min/1.73m2 > OR=60 eGFR 79 mL/min/1.73m2 [...] 9.2 fL 7.5-12.5 ABSOLUTE NEUTROPHILS 4225 cells/uL 0564-0930 ABSOLUTE LYMPHOCYTES 1697 cells/uL 850-3900 ABSOLUTE MONOCYTES 397 cells/uL 200-950 ABSOLUTE EOSINOPHILS 150 cells/uL 15-500 ABSOLUTE BASOPHILS 33 cells/uL 0-200 NEUTROPHILS 65 % NRG LYMPHOCYTES 26.1 % NRG MONOCYTES 6.1 % NRG EOSINOPHILS 2.3 % NRG BASOPHILS 0.5 % NRG Encounters ACCT No. Visit Date/Time Discharge Status Pt. Type Provider Facility Loc./Unit Complaint [id number] 06/12/2014 14:34:00 06/12/2014 23:59:59 CLS Outpatient KATIE HUDSON MD [id number] 03/10/2014 13:49:00 03/10/2014 23:59:59 CLS Outpatient KATIE HUDSON MD [id number] 02/06/2014 14:56:00 02/06/2014 23:59:59 CLS Outpatient BRITTANY MIRZA DO [id number] 02/06/2014 14:01:00 02/06/2014 23:59:59 CLS Outpatient KATIE HUDSON MD [id number] 09/26/2013 13:12:00 09/26/2013 23:59:59 CLS Outpatient KATIE HUDSON MD [id number] 09/26/2013 13:12:00 09/26/2013 23:59:59 CLS Outpatient KATIE HUDSON MD [id number] 09/26/2013 12:43:00 09/26/2013 23:59:59 CLS Outpatient BRITTANY MIRZA DO [id number] 06/06/2013 14:02:00 06/06/2013 23:59:59 CLS Outpatient KATIE HUDSON MD [id number] 06/06/2013 13:04:00 06/06/2013 23:59:59 CLS Outpatient BRITTANY MIRZA DO [id number] 03/08/2013 14:26:00 03/08/2013 23:59:59 CLS Outpatient KATIE HUDSON MD [id number] 03/08/2013 14:26:00 03/08/2013 23:59:59 CLS Outpatient KATIE HUDSON MD [id number] 10/25/2012 15:19:00 10/25/2012 23:59:59 CLS Outpatient KATIE HUDSON MD [id number] 03/22/2012 13:00:00 03/22/2012 23:59:59 CLS Outpatient BRITTANY MIRZA DO [id number] 03/16/2012 10:37:00 03/16/2012 23:59:59 [place] [id number] 08/19/2011 09:42:00 08/19/2011 23:59:59 CLS Outpatient KATIE HUDSON MD [id number] 10/25/2012 15:19:00 Document Registration [id number] 06/08/2016 03:06:00 Document Registration [id number] 01/15/2016 07:06:00 Document Registration [id number] 03/29/2018 14:20:00 03/29/2018 23:59:59 [facility] Megan HUDSON MD, KATIE [facility] [id number] 03/29/2018 14:20:00 Document Registration [id number] 10/06/2017 16:00:00 Document Registration [id number] 01/26/2017 15:00:00 Document Registration [id number] 01/29/2017 16:06:00 Document Registration
[2018-09-18] MEDS ORDERED: PIPERACILLIN/TAZO 4.5 GM VIAL (ZOSYN) IV ONE (01:33)
[2018-09-18] MEDS ORDERED: NS (IVPB) 100 ML ONE (01:33)
[2018-09-18] MEDS: PIPERACILLIN/TAZOBACTAM (BULK) 4.5 GM in NS (IVPB) 100 ML IV SCH ×3 (01:58→16:39)
[2018-09-18 04:06] VITALS: BP 139/73
[2018-09-18 06:31] LABS: BASOPHILS % (AUTO) 0 % (0-10); EOSINOPHILS % (AUTO) 0 % (0-10); HEMATOCRIT 37 % (35-52); HEMOGLOBIN 12.4 G/DL (11.5-16.0); LYMPHOCYTES # (AUTO) 1.1 X 10^3 (1.0-4.0); LYMPHOCYTES % (AUTO) 18 % (12-44); MEAN CORPUSCULAR HEMOGLOBIN 33 PG (25-34); MEAN CORPUSCULAR HGB CONC 34 G/DL (32-36); MEAN CORPUSCULAR VOLUME 98 FL (80-99); MEAN PLATELET VOLUME 9.3 FL (7.4-10.4); MONOCYTES # (AUTO) 0.1 X 10^3 (0.0-1.0); MONOCYTES % (AUTO) 1 % (0-12); NEUTROPHILS # (AUTO) 5.2 X 10^3 (1.8-7.8); NEUTROPHILS % (AUTO) 81 % (42-75); PLATELET COUNT 226 10^3/uL (130-400); RED CELL DISTRIBUTION WIDTH 13.8 % (10.0-14.5); WHITE BLOOD COUNT 6.5 10^3/uL (4.3-11.0)
[2018-09-18 07:01] LABS: ALBUMIN 3.4 GM/DL (3.2-4.5); BILIRUBIN,TOTAL 0.5 MG/DL (0.1-1.0); CREATININE SERUM 1.05 MG/DL (0.60-1.30); POTASSIUM 4.2 MMOL/L (3.6-5.0); TOTAL PROTEIN 6.9 GM/DL (6.4-8.2)
[2018-09-18] MEDS: inSUlin ASPART (NovoLOG) 1 UNIT/0.01 ML (CHARGE PER UNIT) SC SCH ×3 (07:01→16:39)
--- NOTE | 2018-09-18 07:52 | NUR ---
VANCOMYCIN DOSING CALLED AT HOME AFTER HOURS TO DOSE VANCOMYCIN - BASED ON PT INFORMATION I ADDED AN ADDITIONAL 1500 MG TO THE 1000 MG GIVEN IN [facility] ED FOR A TOTAL BOLUS OF 2500 MG (127 KG X 20 MG/KG) THEN VANC 15 MG/KG ~ 1750 MG Q12H; SCR 1.05 CRCL ~ 74 CHECK TROUGH 6/5 1000 HOLD DOSE AND CONTACT PHARMACY IF LEVEL IS GREATER THAN 20
[2018-09-18 08:00] VITALS: BP 127/68
[2018-09-18] MEDS ORDERED: SENNA W/DOCUSATE (SENOKOT S) TABLET PO SCH (09:00)
--- NOTE | 2018-09-18 09:04 | NUR ---
WENT OVER THE EXT MED HX WITH THE PATIENT, SHE VERIFIED HOW SHE TAKES HER MEDICATIONS. SHE STATES SHE TAKES HER VICTOZA TWICE DAILY HOWEVER THAT IS NOT HOW IT IS PRESCRIBED AND SHE DOES NOT FILL IT MORE FREQUENTLY THAN ONCE A MONTH. I LEFT IT ON MED REC ONCE DAILY.
--- NOTE | 2018-09-18 10:12 | Short Stay Summary-Hospitalist ---
History of Present Illness HPI/Chief Complaint CC: Left facial redness HPI: This is 63yo[facility] clinic pt of Dr. Celis with a PMH of diabetes who presented with several day history of left eye redness that progressed to the point that she presented to the ER. Nancy Gonzalez evaluated her to have preseptal cellulitis of the left eyelid and pt was placed on Vancomycin and Zosyn with close monitoring on the med surge floor. Dr. Gale was gracious enough to consult and did perform a small IND and recommended Augmentin TID along with lid scrub and eye drops all those were ordered and placed on discharged med list. She is ready to go home I have accommodated by providing a small amount of Hydrocodone and overall she seems to be improved enough to go home and she agrees with the plan. Source: patient Exam Limitations: no limitations Date Seen 09/18/18 Time Seen by a Provider: 10:00 Attending Physician Bisi Newman DO PCP Andrew Celis MD Referring Physician Date of Admission Sep 17, 2018 at 20:37 Home Medications & Allergies Home Medications Reviewed patient Home Medication Reconciliation performed by pharmacy medication reconciliations phlebotomy services technician and/or nursing. Patients Allergies have been reviewed. Allergies Allergies Uncoded Allergies IV CONTRAST ( Adverse Reaction, Mild, HIVES, 09/17/18) Past Hswqzps-Nvgoch-Gwpaqx Hx Past Med/Social Hx: Reviewed Nursing Past Med/Soc Hx, Reviewed and Corrections made Patient Social History Marrital Status: single Alcohol Use: Occasionally Uses Recreational Drug Use: No Smoking Status: Former Smoker Type Used: Cigarettes 2nd Hand Smoke Exposure: No Physical Abuse Screen: No Sexual Abuse: No Recent Foreign Travel: No Contact w/other who traveled: No Recent Hopitalizations: No Recent Infectious Disease Expo: No Immunizations Up To Date Tetanus Booster (TDap): Unknown Date of Pneumonia Vaccine: Feb 13, 2018 Seasonal Allergies Seasonal Allergies: No Past Medical History Surgeries: Appendectomy, Bladder Surgery, Section, Eye Surgery, Gallbladder, Tonsillectomy, Tubal Ligation Cardiac: High Cholesterol, Hypertension Neurological: Neuropathy, Stroke : No Genitourinary: UTI-Chronic Musculoskeletal: Arthritis Endocrine: Diabetes, Insulin dep Psychosocial: Depression Skin/Integumentary: Recent Skin Changes Review of Systems Constitutional: see HPI EENTM: see HPI, ear pain, blurred vision, eye pain Respiratory: no symptoms reported Cardiovascular: no symptoms reported Gastrointestinal: no symptoms reported Genitourinary: no symptoms reported Musculoskeletal: no symptoms reported Skin: no symptoms reported Psychiatric/Neurological: No Symptoms Reported Physical Exam Physical Exam Vital Signs Vital Signs - First Documented 09/17/18 17:52 Temp 99.9 Pulse 83 Resp 18 B/P (MAP) 130/69 (89) Pulse Ox 93 O2 Delivery Room Air Capillary Refill : Less Than 3 Seconds Height, Weight, BMI Height: 5'6.00" Weight: 281lbs. 7.2oz. 127.623174wn; 45.4 BMI Method:Stated General Appearance: No Apparent Distress, WD/WN, Chronically ill, Obese Eyes: Left Eye Lid Inflammation, Left Eye Other (cellulitis involving left upper lower eyelids, and maxilla. No sinus tenderness to palpation, no pain with ocular movement.); Bilateral Eye Normal Inspection, Bilateral Eye PERRL, Bilateral Eye EOMI HEENT: TMs Normal, Pharynx Normal, Other (left eyelid edema with erythema improved from last evening reports) Neck: Full Range of Motion, Normal Inspection, Non Tender, Supple, Carotid Bruit Respiratory: Chest Non Tender, Lungs Clear, Normal Breath Sounds, No Accessory Muscle Use, No Respiratory Distress Cardiovascular: Regular Rate, Rhythm, No Edema, No Gallop, No JVD, No Murmur, Normal Peripheral Pulses Gastrointestinal: Normal Bowel Sounds, No Organomegaly, No Pulsatile Mass, Non Tender, Soft Back: Normal Inspection, No CVA Tenderness, No Vertebral Tenderness Extremity: Normal Capillary Refill, Normal Inspection, Normal Range of Motion, Non Tender, No Calf Tenderness, No Pedal Edema Neurologic/Psychiatric: Alert, Oriented x3, No Motor/Sensory Deficits, Normal Mood/Affect Skin: Normal Color, Warm/Dry Lymphatic: No Adenopathy Results Results/Procedures Labs Laboratory Tests 09/17/18 18:00 09/18/18 05:46 Patient resulted labs reviewed. Short Stay Diagnosis Discharge Diagnosis-Short Stay Admission Diagnosis Preseptal cellulitis DM HTN Final Discharge Diagnosis Preseptal cellulitis DM HTN Conclusion Plan Plan: DC home Abx Eye treatment Diagnosis/Problems Diagnosis/Problems (1) Facial cellulitis Status: Acute Clinical Quality Measures DVT/VTE Risk/Contraindication: Risk Factor Score Per Nursin RFS Level Per Nursing on Admit: 2=Moderate Other: SEE INTERVENTIONS BISI NEWMAN DO Sep 18, 2018 10:12
[2018-09-18] MEDS ORDERED: BESI5DRO OP (10:15)
[2018-09-18] MEDS ORDERED: AMOX1TAB11 PO (10:15)
[2018-09-18] MEDS ORDERED: EYEL1KIT TP (10:15)
[2018-09-18] MEDS ORDERED: ACHD5005 PO (10:15)
[2018-09-18] MEDS ORDERED: VANCOMYCIN 1,750 MG/NS 500 ML IVPB IV SCH ×2 (11:00)
[2018-09-18] MEDS: NS IV 1000 ML 1,000 ML IV SCH ×2 (11:28→15:27)
[2018-09-18 12:00] VITALS: BP 118/65
[2018-09-18] MEDS: HYDROcodone/APAP 5 MG/325 MG (LORTAB) TAB PO PRN (15:51)
[2018-09-18 16:38] VITALS: BP 140/68
[2018-09-18 17:34] VITALS: BP 118/65
[2018-09-18] MEDS ORDERED: VANCOMYCIN 2000 MG/NS 500 ML IVPB IV SCH ×2 (19:00)
[2018-09-18] MEDS ORDERED: GABAPENTIN 600 MG (NEURONTIN) TAB PO SCH (21:00)
[2018-09-18] MEDS ORDERED: ATORVASTATIN 40 MG (LIPITOR) TABLET PO SCH (21:00)
[2018-09-18] MEDS ORDERED: AMITRIPTYLINE 50 MG (ELAVIL) TAB PO SCH (21:00)
[2018-09-19] MEDS ORDERED: TROUGH ORDER-PHARMACY XX NR (10:00)
[2018-10-22] MEDS ORDERED: CIPR500T4 PO (13:45)
--- NOTE | 2018-10-26 09:47 | Physician Query Clarification ---
PQ-Further Specificity Admission/Discharge Admission Date: Sep 17, 2018 at 20:37 Discharge Date: Sep 18, 2018 at 18:00 The medical record reflects the following clinical scenario: History/Risk Factors: Cellulitis Lt. eyelid Clinical Findings: LEFT EYE AREA PAIN AND DRAINAGE. PT BEGAN EYE IRRITATION MONDAY NIGHT AND WORSENING NOW WITH EXTREME REDNESS AND SWELLING INTO TISSUE AROUND ORBIT/CHEEK. Treatment: IV Vancomycin, IV Zofran, Augmentin TID, Lid scrub, eye drops Question: Dr. Oneal states that you performed a small I&D. Please verify if this was done. If so, please document the I&D. Please document a response in the Progress Notes or Discharge Summary. 1. I&D lt upper eyelid 2. I&D lt lower eyelid 3. I&D both lt upper and lower eyelid 4.. Other, with explanation of the clinical findings. 5. Clinically undetermined, no explanation for the clinical findings. Please remember a lack of response to the above will prompt a phone page by CDI/Coding staff. In responding to this query, please exercise your independent professional judgment. The purpose of this communication is to more accurately reflect the complexity of your patients condition. The fact that a question is asked does not imply that any particular answer is desired or expected. Thank you for your timely response to this clarification. Requestors name: Cain THIS PHYSICIAN QUERY FORM IS A PERMANENT PART OF THE MEDICAL RECORD CAIN JORDAN Oct 26, 2018 09:47
== END 2018-09-18 18:00 | disposition home or self-care (01) | DRG 603 ==
LOC: ER FS 17:49 → 4TH 20:37
PROVIDERS: ADMIT Internal Medicine; ATTEND Internal Medicine
DX: L03.211 Cellulitis of face (principal); H00.034 Abscess of left upper eyelid; H00.035 Abscess of left lower eyelid; H00.016 Hordeolum externum left eye, unspecified eyelid; H01.006 Unspecified blepharitis left eye, unspecified eyelid; E66.01 Morbid (severe) obesity due to excess calories; Z68.42 Body mass index [BMI] 45.0-49.9, adult; I69.351 Hemiplegia and hemiparesis following cerebral infarction affecting right dominant side; E11.9 Type 2 diabetes mellitus without complications; Z87.891 Personal history of nicotine dependence; I10 Essential (primary) hypertension; J44.9 Chronic obstructive pulmonary disease, unspecified; E78.00 Pure hypercholesterolemia, unspecified; Z79.4 Long term (current) use of insulin
CPT/HCPCS: 36415; 70481; 80053; 82962; 83036; 83605; 85025; 85652; 86141; 87040; 87070; 87077; 87186; 87205; 96361; 96365; 96367; 96375

== ENCOUNTER 2018-10-19 11:48 | Emergency (ER) | payer MEDICAID ==
[~2018-10-19] VITALS: Ht 167.6 cm; Wt 127.5 kg
[~2018-10-19 11:48] MED LIST: ACHD5005 PO; AMIT50TA3 PO; AMOX1TAB11 PO; ATOR40TA70 PO; BESI5DRO OP; EYEL1KIT TP; FLUO40CA PO; GBPN600T PO; IBUP-1780 PO; LIRA0.6P3 SC; LOSA50TA63 PO; METF-399 PO; OXYB5TAB9 PO
--- OUTSIDE RECORDS SUMMARY | 2018-10-19 11:54 | XMS REPORT ---
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 Name Role Phone KATIE HUDSON Unavailable PROBLEMS Type Condition ICD9-CM Code LSG70-EM Code Onset Dates Condition Status SNOMED Code Problem CAD (coronary artery disease) I25.10 Active 00602776 Problem Osteoarthritis of knees, bilateral M17.0 Active 405205751 Problem Essential hypertension I10 Active 42596621 Problem Diabetes E11.9 Active 17029304 Problem Arthritis M19.90 Active 8345714 Problem Morbid obesity E66.01 Active 471967228 Problem Hyperlipemia E78.5 Active 00950725 ALLERGIES No Information ENCOUNTERS Encounter Location Date Diagnosis [facility] [address] [address] Sep, [facility] [address] [address] Jul, [facility] [address] [address] Apr, [facility] [id number] [place] [address] Mar, Pustular lesion L08.9 and Encounter for immunization Z23 [facility] [id number] [place] [address] Feb, [facility] [address] [address] Dec, [facility] [address] [address] Dec, [facility] [address] [address] Dec, Diabetes E11.9 ; Essential hypertension I10 ; Arthritis M19.90 ; Urinary frequency R35.0 ; Routine adult health maintenance Z00.00 and BMI 45.0- 49.9, adult Z68.42 [facility] [id number] [place] [address] 18 Dec, 2017 [facility] [id number] [place] [address] Dec, [facility] [id number] [place] [address] Oct, [facility] [id number] [place] [address] Sep, Diabetes E11.9 [facility] [id number] [place] [address] Sep, Diabetes E11.9 ; Hyperlipemia E78.5 ; CAD (coronary artery disease) I25.10 ; Essential hypertension I10 and BMI 45.0-49.9, adult Z68.42 [facility] [id number] [place] [address] Sep, [facility] [id number] [place] [address] August, [facility] [id number] [place] [address] Jan, Dysuria R30.0 [facility] [id number] [place] [address] Jan, Dysuria R30.0 [facility] [id number] [place] [address] Jan, Osteoarthritis of knees, bilateral M17.0 [facility] [id number] [place] [address] Nov, Dysuria R30.0 [facility] [id number] [place] [address] Oct, Blood in urine R31.9 ; Dysuria R30.0 ; Pharyngeal dysphagia R13.13 ; Acute cystitis with hematuria N30.01 ; CAD (coronary artery disease) I25.10 and Diabetes E11.9 [facility] [id number] [place] [address] Oct, [facility] [id number] [place] [address] Sep, Arthritis M19.90 ; Blood in urine R31.9 ; Diabetes E11.9 ; Acute cystitis with hematuria N30.01 and Pharyngoesophageal dysphagia R13.14 [facility] [id number] [place] [address] Sep, Osteoarthritis of knees, bilateral M17.0 [facility] [id number] [place] [address] Sep, Osteoarthritis of knees, bilateral M17.0 [facility] [id number] [place] [address] August, Arthritis M19.90 [facility] [id number] [place] [address] Jul, Arthritis M19.90 [facility] [id number] [place] [address] Jun, Arthritis M19.90 [facility] [id number] [place] [address] Jun, [facility] [id number] [place] [address] Jun, [facility] [id number] [place] [address] May, Diabetes E11.9 ; Dysuria R30.0 and Arthritis M19.90 [facility] [id number] [place] [address] Apr, [facility] [address] [facility] [id number] [address] Apr, Arthritis M19.90 [facility] [address] [place] [address] Mar, Arthritis M19.90 [facility] [id number] [place] [address] Feb, [facility] [address] [place] [address] Jan, [facility] [address] [place] [address] Dec, Diabetes E11.9 and Arthritis M19.90 [facility] [id number] [place] [address], [place] [address] Dec, [facility] [id number] [place] [address] Nov, Arthritis M19.90 [facility] [address] [address] Nov, [facility] [address] [address] Oct, Arthritis M19.90 [facility] [address] [address] Sep, Osteoarthritis of knees, bilateral M17.0 [facility] [id number] [address] Sep, Osteoarthritis of knees, bilateral M17.0 [facility] [id number] [address] August, Arthritis M19.90 [facility] [id number] [address] August, [facility] [id number] [address] Jul, Hyperlipemia E78.5 [facility] [address] [address] Jul, Encounter for well woman exam Z01.419 ; Morbid obesity E66.01 ; Encounter for screening for malignant neoplasm of cervix Z12.4 and Encounter for screening mammogram for breast cancer Z12.31 [facility] [address] [address] Jul, Arthritis M19.90 ; Diabetes E11.9 ; Blood in urine R31.9 and UTI (urinary tract infection) N39.0 [facility] [address] [address] Jul, [facility] [id number] [address] Jun, Arthritis M19.90 [facility] [id number] [address] May, Arthritis M19.90 [facility] [address] [address] May, [facility] [address] [address] Apr, [facility] [address] [address] Apr, Arthritis M19.90 ; Diabetes E11.9 and Morbid obesity E66.01 [facility] [address] [address] Apr, [facility] [address] [address] Apr, Dyspareunia N94.1 [facility] [address] [address] Apr, [facility] [address] [address] Apr, [facility] [address] [address] Apr, Osteoarthritis of knees, bilateral M17.0 [facility] [address] [place] [address] Apr, Diabetes E11.9 and CAD (coronary artery disease) I25.10 [facility] [address] [place] [address] Mar, [facility] [id number] [place] [address] Feb, [facility] [id number] [place] [address] Jan, [facility] [id number] [place] [address] Jan, [facility] [id number] [place] [address] Jan, [facility] [address] [place] [address] Jan, Osteoarthritis of knees, bilateral M17.0 [facility] [address] [address] 30 Dec, 2014 [facility] [address] [address] 17 Dec, 2014 [facility] [address] [place] [address] Dec, [facility] [address] [address] 08 Dec, 2014 Diabetes mellitus 250.00 and UTI (urinary tract infection) 599.0 [facility] [address] [address] Dec, [facility] [address] [address] Nov, [facility] [place] [facility] [address] [id number] [place] [address] Oct, [facility] [place] [facility] [address] [id number] [place] [address] Oct, [facility] [place] [facility] [address] [id number] [place] [address] Oct, [facility] [place] [facility] [address] [id number] [place] [address] Oct, [facility] [place] [facility] [address] [id number] [place] [address] Oct, [facility] [place] [facility] [address] [id number] [place] [address] Sep, [facility] [place] [facility] [address] [id number] [place] [address] August, [facility] [place] [facility] [address] [id number] [place] [address] August, [facility] [place] [facility] [address] [id number] [place] [address] August, [facility] [place] [facility] [address] [id number] [place] [address] Jul, [facility] [place] [facility] [address] [id number] [place] [address] Jul, [facility] [place] [facility] [address] [id number] [place] [address] Jul, [facility] [place] [facility] [address] [id number] [place] [address] Jun, [facility] [place] [facility] [address] [id number] [place] [address] Jun, [facility] [place] [facility] [address] [id number] [place] [address] Jun, [facility] [place] [facility] [address] [id number] [place] [address] Jun, [facility] [place] [facility] [address] [id number] [place] [address] Jun, [facility] [place] [facility] [address] [facility] [id number] [place] [address] Jun, [facility] [place] [facility] [address] [facility] [id number] [place] [address] Jun, [facility] [place] [facility] [address] [facility] [id number] [place] [address] Jun, [facility] [place] [facility] [address] [facility] [id number] [place] [address] May, [facility] [place] [facility] [address] [facility] [id number] [place] [address] May, 2014 [facility] [place] [facility] [address] [facility] [id number] [place] [address] May, 2014 [facility] [place] [facility] [address] [facility] [id number] [place] [address] May, 2014 [facility] [place] [facility] [address] [facility] [id number] [place] [address] May, 2014 [facility] [place] [facility] [address] [facility] [id number] [place] [address] May, 2014 [facility] [place] [facility] [address] [facility] [id number] [place] [address] May, 2014 [facility] [place] [facility] [address] [facility] [id number] [address] May, 2014 [facility] [place] [facility] [address] [facility] [id number] [place] [address] May, 2014 [facility] [place] [facility] [address] [facility] [id number] [address] May, 2014 [facility] [place] [facility] [address] [facility] [id number] [address] May, [facility] [place] [facility] [address] [id number] [place] [address] May, [facility] [place] [facility] [address] [id number] [place] [address] Apr, [facility] [place] [facility] [address] [id number] [place] [address] Apr, [facility] [place] [facility] [address] [id number] [place] [address] Mar, [facility] [place] [facility] [address] [id number] [place] [address] Mar, [facility] [place] [facility] [address] [id number] [place] [address] Mar, [facility] [place] [facility] [address] [id number] [place] [address] Mar, [facility] [place] [facility] [address] [id number] [place] [address] Mar, [facility] [place] [facility] [address] [id number] [place] [address] Mar, [facility] [place] [facility] [address] [id number] [place] [address] Feb, [facility] [place] [facility] [address] [id number] [place] [address] Feb, [facility] [place] [facility] [address] [id number] [place] [address] Feb, [facility] [place] [facility] [address] [id number] [place] [address] Feb, [facility] [place] [facility] [address] [id number] [place] [address] Feb, [facility] [place] [facility] [address] [id number] [place] [address] Feb, [facility] [place] [facility] [address] [id number], [place] [address] Feb, [facility] [place] [facility] [address] [id number] [place] [address] Feb, [facility] [place] [facility] [address] [id number] [place] [address] Feb, [facility] [place] [facility] [address] [id number] [place] [address] Jan, [facility] [place] [facility] [address] [id number] [place] [address] Jan, [facility] [place] [facility] [address] [id number] [place] [address] Jan, [facility] [place] [facility] [address] [id number] [place] [address] Jan, [facility] [place] [facility] [address] [id number] [place] [address] Jan, [facility] [place] [facility] [address] [id number] [place] [address] Jan, [facility] [place] [facility] [address] [id number] [place] [address] Jan, [facility] [place] [facility] [address] [id number] [place] [address] Jan, [facility] [place] [facility] [address] [id number] [address] Jan, [facility] [place] [facility] [address] [id number] [address] Jan, [facility] [place] [facility] [address] [id number] [place] [address] 19 Dec, 2013 [facility] [place] [facility] [address] [id number] [place] [address] 19 Dec, 2013 [facility] [place] [facility] [address] [id number] [place] [address] 10 Dec, 2013 [facility] [place] [facility] [address] [id number] [place] [address] Dec, [facility] [place] [facility] [address] [id number] [place] [address] Nov, [facility] [place] [facility] [address] [id number] [place] [address] Nov, [facility] [place] [facility] [address] [id number] [place] [address] Nov, [facility] [place] [facility] [address] [id number] [place] [address] Nov, [facility] [place] [facility] [address] [id number] [place] [address] Nov, [facility] [place] [facility] [address] [id number] [place] [address] Nov, [facility] [place] [facility] [address] [id number] [place] [address] Nov, [facility] [place] [facility] [address] [id number] [place] [address] Nov, [facility] [place] [facility] [address] [id number] [place] [address] Nov, [facility] [place] [facility] [address] [id number] [place] [address] Oct, [facility] [place] [facility] [address] [id number] [place] [address] Oct, [facility] [place] [facility] [address] [id number] [place] [address] Sep, [facility] [place] [facility] [address] [id number] [place] [address] Sep, [facility] [place] [facility] [address] [id number] [place] [address] Sep, [facility] [place] [facility] [address] [id number] [place] [address] Sep, [facility] [place] [facility] [address] [id number] [place] [address] Sep, [facility] [place] [facility] [address] [id number] [place] [address] Sep, [facility] [place] [facility] [address] [id number] [place] [address] Sep, [facility] [place] [facility] [address] [id number] [place] [address] Sep, [facility] [place] [facility] [address] [id number] [place] [address] Sep, [facility] [place] [facility] [address] [id number] [place] [address] Sep, [facility] [place] [facility] [address] [id number] [place] [address] Sep, [facility] [place] [facility] [address] [id number] [place] [address] Sep, [facility] [place] [facility] [address] [id number] [place] [address] Sep, [facility] [place] [facility] [address] [id number] [place] [address] Sep, [facility] [place] [facility] [address] [id number] [place] [address] August, [facility] [place] [facility] [address] [id number] [place] [address] August, [facility] [place] [facility] [address] [id number] [place] [address] August, [facility] [place] [facility] [address] [id number] [place] [address] August, [facility] [place] [facility] [address] [id number] [place] [address] Jul, [facility] [place] [facility] [address] [id number] [place] [address] Jul, [facility] [place] [facility] [address] [id number] [place] [address] Jul, [facility] [place] [facility] [address] [id number] [place] [address] Jul, [facility] [place] [facility] [address] [id number] [place] [address] Jun, [facility] [place] [facility] [address] [id number] [place] [address] Jun, [facility] [place] [facility] [address] [id number] [place] [address] May, [facility] [place] [facility] [address] [id number] [place] [address] May, [facility] [place] [facility] [address] [id number] [place] [address] May, [facility] [place] [facility] [address] [id number] [place] [address] May, [facility] [place] [facility] [address] [id number] [place] [address] May, [facility] [place] [facility] [address] [id number] [place] [address] May, [facility] [place] [facility] [address] [id number] [place] [address] May, [facility] [place] [facility] [address] [id number] [place] [address] May, [facility] [place] [facility] [address] [id number] [place] [address] May, [facility] [place] [facility] [address] [id number] [place] [address] Apr, [facility] [place] [facility] [address] [id number] [place] [address] Apr, [facility] [place] [facility] [address] [id number] [place] [address] Apr, [facility] [place] [facility] [address] [id number] [place] [address] Apr, [facility] [place] [facility] [address] [id number] [place] [address] Apr, [facility] [place] [facility] [address] [id number] [place] [address] Mar, [facility] [place] [facility] [address] [id number] [place] [address] Mar, [facility] [place] [facility] [address] [id number] [place] [address] Feb, [facility] [place] [facility] [address] [id number] [place] [address] Feb, [facility] [place] [facility] [address] [id number] [place] [address] Feb, [facility] [place] [facility] [address] [id number] [place] [address] Feb, [facility] [place] [facility] [address] [id number] [address] Feb, [facility] [place] [facility] [address] [id number], [place] [address] Feb, [facility] [place] [facility] [address] [id number], [place] [address] Feb, [facility] [place] [facility] [address] [id number] [place] [address] Feb, [facility] [place] [facility] [address] [id number], [place] [address] Feb, [facility] [place] [facility] [address] [id number], [place] [address] Jan, [facility] [place] [facility] [address] [id number] [place] [address] Jan, [facility] [address] [id number] [place] [address] Jan, [facility] [place] [facility] [address] [id number] [place] [address] Jan, [facility] [place] [facility] [address] [id number] [place] [address] Jan, [facility] [place] [facility] [address] [id number] [place] [address] Dec, [facility] [place] [facility] [address] [id number] [place] [address] Dec, [facility] [place] [facility] [address] [id number] [place] [address] Nov, [facility] [place] [facility] [address] [id number] [place] [address] Nov, [facility] [place] [facility] [address] [id number] [place] [address] Oct, [facility] [place] [facility] [address] [id number] [place] [address] Oct, [facility] [place] [facility] [address] [id number] [place] [address] Oct, [facility] [place] [facility] [address] [id number] [place] [address] Sep, [facility] [place] [facility] [address] [id number] [place] [address] Sep, [facility] [place] [facility] [address] [id number] [place] [address] Sep, [facility] [place] [facility] [address] [id number] [place] [address] August, [facility] [place] [facility] [address] [id number] [place] [address] August, [facility] [place] [facility] [address] [id number] [place] [address] August, [facility] [address] [id number] [place] [address] August, [facility] [place] [facility] [address] [id number] [place] [address] Jul, [facility] [place] [facility] [address] [id number] [place] [address] Jun, [facility] [place] [facility] [address] [id number] [place] [address] Jun, [facility] [place] [facility] [address] [id number] [place] [address] Jun, [facility] [address] [id number] [place] [address] May, [facility] [address] [id number] [place] [address] May, [facility] [place] [facility] [address] [id number] [place] [address] May, [facility] [address] [id number] [place] [address] May, [facility] [place] [facility] [address] [id number] [place] [address] Apr, [facility] [place] [facility] [address] [id number] [place] [address] Apr, [facility] [place] [facility] [address] [id number] [place] [address] Apr, [facility] [place] [facility] [address] [id number] [place] [address] 14 Apr, 2012 [facility] [place] [facility] [address] [id number] [place] [address] Apr, [facility] [place] [facility] [address] [id number], [place] [address] Mar, [facility] [place] [facility] [address] [id number] [place] [address] Mar, [facility] [place] [facility] [address] [id number] [place] [address] Mar, [facility] [place] [facility] [address] [facility] [id number] [place] [address] Mar, [facility] [place] [facility] [address] [id number] [place] [address] Mar, [facility] [place] [facility] [address] [address] [id number] [place] [address] Mar, [facility] [place] [facility] [address] [id number] [place] [address] Mar, [facility] [place] [facility] [address] [id number] [place] [address] Feb, [facility] [place] [facility] [address] [id number] [place] [address] Feb, [facility] [place] [facility] [address] [facility] [id number] [place] [address] Feb, [facility] [place] [facility] [address] [facility] [id number] [place] [address] Feb, [facility] [place] [facility] [address] [facility] [id number] [address] Feb, [facility] [place] [facility] [address] [facility] [id number] [address] Feb, [facility] [place] [facility] [address] [id number] [place] [address] Feb, [facility] [place] [facility] [address] [facility] [id number], [place] [address] Feb, [facility] [place] [facility] [address] [facility] [id number] [place] [address] Jan, [facility] [place] [facility] [address] [id number] [place] [address] 24 Jan, 2012 [facility] [place] [facility] [address] [id number] [place] [address] Jan, [facility] [place] [facility] [address] [id number] [place] [address] Jan, [facility] [place] [facility] [address] [id number] [place] [address] 27 Dec, 2011 [facility] [place] [facility] [address] [id number] [place] [address] 25 Dec, 2011 [facility] [place] [facility] [address] [id number] [place] [address] 18 Dec, 2011 [facility] [place] [facility] [address] [id number] [place] [address] 13 Dec, 2011 [facility] [place] [facility] [address] [id number] [place] [address] 11 Dec, 2011 [facility] [place] [facility] [address] [id number] [place] [address] Oct, [facility] [place] [facility] [address] [id number] [place] [address] Oct, [facility] [place] [facility] [address] [id number] [place] [address] Sep, [facility] [place] [facility] [address] [id number] [place] [address] Sep, [facility] [place] [facility] [address] [id number] [place] [address] August, [facility] [place] [facility] [address] [id number] [place] [address] August, [facility] [place] [facility] [address] [id number] [place] [address] Jul, [facility] [place] [facility] [address] [id number] [place] [address] 28 Jun, 2011 [facility] [place] [facility] [address] [id number] [place] [address] 23 Jun, 2011 [facility] [place] [facility] [address] [id number] [place] [address] 23 Jun, 2011 [facility] [place] [facility] [address] [id number] [place] [address] 19 Jun, 2011 [facility] [place] [facility] [address] [id number] [place] [address] 2011 [facility] [place] [facility] [address] [id number] [place] [address] 24 May, 2011 [facility] [place] [facility] [address] [id number] [place] [address] 22 May, 2011 [facility] [place] [facility] [address] [id number] [place] [address] 20 May, 2011 [facility] [place] [facility] [address] [id number] [place] [address] 14 May, 2011 [facility] [place] [facility] [address] [id number] [place] [address] 13 May, 2011 [facility] [place] [facility] [address] [id number] [place] [address] 03 May, 2011 [facility] [place] [facility] [address] [id number] [place] [address] May, [facility] [place] [facility] [address] [id number] [place] [address] May, [facility] [place] [facility] [address] [id number] [place] [address] Apr, [facility] [place] [facility] [address] [id number] [place] [address] Mar, [facility] [place] [facility] [address] [id number] [place] [address] Mar, [facility] [place] [facility] [address] [facility] [id number], [place] [address] Mar, [facility] [address] [facility] [id number], [place] [address] Mar, [facility] [address] [facility] [id number], [place] [address] Mar, [facility] [address] [facility] [id number][place] [address] Jan, [facility] [address] [facility] [id number], [place] [address] Jan, [facility] [address] [facility] [id number], [place] [address] Jan, [facility] [address] [facility] [id number], [place] [address] August, [facility] [id number] [address] Mar, [facility] [address] [facility] [id number], [place] [address] Feb, [facility] [address] [facility] [id number][place] [address] Jan, [facility] [address] [id number] [address] Jan, IMMUNIZATIONS No Known Immunizations SOCIAL HISTORY Never Assessed REASON FOR VISIT PLAN OF CARE VITAL SIGNS MEDICATIONS Unknown [...]
--- OUTSIDE RECORDS SUMMARY | 2018-10-19 12:07 | XMS REPORT | Continuity of Care Document ---
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 11/16/2010 BRITTANY MIRZA DO V72.31 [facility] Exam, Routine 11/16/2010 BECCA CACERES, KATIE V72.31 [facility] Exam, Routine 11/16/2010 V72.31 [facility] Exam, Routine 11/16/2010 BECCA CACERES, KATIE V72.31 [facility] Exam, Routine 11/16/2010 BECCA CACERES, KATIE V72.31 [facility] Exam, Routine 11/16/2010 KATIE HUDSON MD V72.31 [facility] Exam, Routine 11/16/2010 KATIE HUDSON MD V72.31 [facility] Exam, Routine 11/16/2010 BRITTANY MIRZA DO V72.31 [facility] Exam, Routine 11/16/2010 KATIE HUDSON MD V72.31 [facility] Exam, Routine 11/16/2010 BRITTANY MIRZA DO V72.31 [facility] Exam, Routine 11/16/2010 KATIE HUDSON MD V72.31 [facility] Exam, Routine 11/16/2010 KATIE HUDSON MD V72.31 [facility] Exam, Routine 11/16/2010 BRITTANY MIRZA DO V72.31 [facility] Exam, Routine 11/16/2010 KATIE HUDSON MD V72.31 [facility] Exam, Routine 11/16/2010 KATIE HUDSON MD V72.31 [facility] Exam, Routine 11/16/2010 KATIE HUDSON MD V72.31 [facility] Exam, Routine 01/25/2011 BRITTANY IMRZA DO V04.81 Flu Dx (3 Yrs And [...] Procedures Code [place] [address] ROUTINE VENIPUNCTURE 03/16/2012 34884 UA W/ CULTURE IF INDICATED 03/16/2012 99615 URINE DRUG SCREEN (IN-HOUSE) 03/16/2012 49963 A1C (IN-HOUSE) 03/16/2012 91437 CBC 03/16/2012 70768 CMP 03/16/2012 58886 LIPID PANEL 03/16/2012 [id number] GFR CALC (RESULT ONLY) 03/16/2012 29824 CULTURE URINE 03/18/2012 77154 JOINT INJECTION- LARGE JOINT (SPECIFY MEDCIN DESCRIPTION) 03/22/2012 64842 ROUTINE VENIPUNCTURE 03/08/2013 55211 A1C (IN-HOUSE) 03/08/2013 [id number] GFR CALC (RESULT ONLY) 03/08/2013 40653 CMP 03/08/2013 27072 LIPID PANEL 03/08/2013 75362 JOINT INJECTION- LARGE JOINT (SPECIFY MEDCIN DESCRIPTION) 06/06/2013 00966 UA W/ CULTURE IF INDICATED 06/06/2013 04799 CULTURE URINE 06/08/2013 [facility] 09/26/2013 83607 A1C (IN-HOUSE) 09/26/2013 71962 UA W/ CULTURE IF INDICATED 09/26/2013 82818 CULTURE URINE 09/28/2013 61270 OXIMETRY - OVERNIGHT 10/07/2013 12154 A1C (IN-HOUSE) 02/06/2014 66872 JOINT INJECTION- LARGE JOINT (SPECIFY MEDCIN DESCRIPTION) 02/06/2014 J1040 DEPO MEDROL 80 MG INJ 02/06/2014 05793 ROUTINE VENIPUNCTURE 03/10/2014 7210926 GFR CALC (RESULT ONLY) 03/10/2014 73654 CMP 03/10/2014 Results Test Result Range Comp. [...] 1 Escherichia coli NRG Antimicrobial Susceptibility NRG [facility] - 10/06/17 16:29 GLUCOSE 121 mg/dL 65-99 UREA NITROGEN (BUN) 23 mg/dL 7-25 CREATININE 0.90 mg/dL 0.50-0.99 eGFR NON-AFR. LAO 69 mL/min/1.73m2 > OR=60 eGFR 79 mL/min/1.73m2 [...] 9.2 fL 7.5-12.5 ABSOLUTE NEUTROPHILS 4225 cells/uL 1047-2024 ABSOLUTE LYMPHOCYTES 1697 cells/uL 850-3900 ABSOLUTE MONOCYTES 397 cells/uL 200-950 ABSOLUTE EOSINOPHILS 150 cells/uL 15-500 ABSOLUTE BASOPHILS 33 cells/uL 0-200 NEUTROPHILS 65 % NRG LYMPHOCYTES 26.1 % NRG MONOCYTES 6.1 % NRG EOSINOPHILS 2.3 % NRG BASOPHILS 0.5 % NRG Encounters ACCT No. Visit Date/Time Discharge Status Pt. Type Provider Facility Loc./Unit Complaint [id number] 06/12/2014 14:34:00 06/12/2014 23:59:59 CLS Outpatient KATIE HUDSON MD [id number] 03/10/2014 13:49:00 03/10/2014 23:59:59 CLS Outpatient KATIE HUDSON MD [id number] 02/06/2014 14:56:00 02/06/2014 23:59:59 CLS Outpatient BRITTANY MIRZA DO [id number] 02/06/2014 14:01:00 02/06/2014 23:59:59 CLS Outpatient KATIE HUDSON MD [id number] 09/26/2013 13:12:00 09/26/2013 23:59:59 CLS Outpatient KATIE HUDSON MD [id number] 09/26/2013 13:12:00 09/26/2013 23:59:59 CLS Outpatient KATIE HUDSON MD [id number] 09/26/2013 12:43:00 09/26/2013 23:59:59 CLS Outpatient BRITTANY MIRZA DO [id number] 06/06/2013 14:02:00 06/06/2013 23:59:59 CLS Outpatient KATIE HUDSON MD [id number] 06/06/2013 13:04:00 06/06/2013 23:59:59 CLS Outpatient BRITTANY MIRZA DO [id number] 03/08/2013 14:26:00 03/08/2013 23:59:59 CLS Outpatient KATIE HUDSON MD [id number] 03/08/2013 14:26:00 03/08/2013 23:59:59 CLS Outpatient KATIE HUDSON MD [id number] 10/25/2012 15:19:00 10/25/2012 23:59:59 CLS Outpatient KATIE HUDSON MD [id number] 03/22/2012 13:00:00 03/22/2012 23:59:59 CLS Outpatient BRITTANY MIRZA DO [id number] 03/16/2012 10:37:00 03/16/2012 23:59:59 [place] [id number] 08/19/2011 09:42:00 08/19/2011 23:59:59 CLS Outpatient KATIE HUDSON MD [id number] 10/25/2012 15:19:00 Document Registration [id number] 01/15/2016 07:06:00 Document Registration [id number] 06/08/2016 03:06:00 Document Registration [id number] 01/29/2017 16:06:00 Document Registration [id number] 03/29/2018 14:20:00 03/29/2018 23:59:59 [facility] Megan HUDSON MD, KATIE [facility] [id number] 03/29/2018 14:20:00 Document Registration [id number] 10/06/2017 16:00:00 Document Registration [id number] 01/26/2017 15:00:00 Document Registration
[2018-10-19 14:02] LABS: CLARITY,URINE CLOUDY; COLOR,URINE YELLOW; GLUCOSE, URINE (UA) NEGATIVE (NEGATIVE); PROTEIN,URINE 2+ (NEGATIVE)
[2018-10-19 14:03] LABS: BACTERIA,URINE LARGE /HPF; BILIRUBIN,URINE NEGATIVE (NEGATIVE); KETONES,URINE NEGATIVE (NEGATIVE); LEUKOCYTE ESTERASE ,URINE TRACE (NEGATIVE); NITRITE,URINE NEGATIVE (NEGATIVE); RBC,URINE 0-2 /HPF; UROBILINOGEN,URINE 0.2 MG/DL (NORMAL); WBC,URINE 25-50 /HPF
[2018-10-19] MEDS ORDERED: cefTRIAXone 1,000 MG/2.86 ml vial (IM ONLY) ONE (14:15)
[2018-10-19] MEDS ORDERED: KETOROLAC 60 MG/2 ML VIAL IM ONE (14:15)
[2018-10-19] MEDS ORDERED: LIDOCAINE 1% INJ 20 ML 20 ML VIAL INJ ONE (14:15)
[2018-10-19] MEDS ORDERED: CEFU250T80 PO (14:16)
--- NOTE | 2018-10-19 14:16 | ED GU-Female ---
General Chief Complaint: - Urinary Stated Complaint: URINARY PAIN; RASH Nursing Triage Note: Pt reports burning urination since this a.m. with lower back pain. Pt shows staff numerous scabbed lesions reporting a rash for 1 week. Pt reporting outdoors most of the time on porch and also has pets. Pt denies insect bites. Nursing Sepsis Screen: No Definite Risk Source: patient, RN notes reviewed Exam Limitations: no limitations History of Present Illness Date Seen by Provider: Oct 19, 2018 Time Seen by Provider: 12:00 Initial Comments Patient presents c/ c/o dysuria since this AM, and worsening LBP. Timing/Duration: this morning, constant Severity/Quality: severe (12/25) Location: other Radiation: none Activities at Onset: other (none) Modifying Factors: Worsens With Urinating Associated Symptoms: denies symptoms (x/ as noted.), dysuria, lower back pain Allergies and Home Medications Allergies Uncoded Allergies: IV CONTRAST (Adverse Reaction, Mild, HIVES, 09/17/18) Home Medications Amitriptyline HCl 50 Mg Tablet, 50 MG PO HS, (Reported) Amoxicillin/Potassium Clav 1 Each Tablet, 1 EACH PO TID Prescribed by: ALTHEA NEWMAN on 09/18/18 1015 Atorvastatin Calcium 40 Mg Tablet, 40 MG PO DAILY, (Reported) Besifloxacin Hydrochloride 5 Ml Drops.susp, 5 ML OP TID Prescribed by: ALTHEA NEWMAN on 09/18/18 1015 Cefuroxime Axetil 250 Mg Tablet, 250 MG PO BID Prescribed by: EVELYN SAMPSON on 10/19/18 1416 Eyelid Cleanser Comb No.7 1 Each Kit, 1 EACH TP TID Prescribed by: ALTHEA NEWMAN on 09/18/18 1015 Fluoxetine HCl 40 Mg Capsule, 40 MG PO BID, (Reported) Gabapentin 600 Mg Tablet, 600 MG PO TID, (Reported) Hydrocodone Bit/Acetaminophen 1 Tab Tab, 1 TAB PO Q4H PRN for MOD Prescribed by: ALTHEA NEWMAN on 09/18/18 1015 Ibuprofen 800 Mg Tablet, 800 MG PO TID PRN for PAIN-MILD, (Reported) Liraglutide 0.6 Mg/0.1 Ml Pen.injctr, 1.8 MG SC DAILY, (Reported) Losartan Potassium 50 Mg Tablet, 50 MG PO DAILY, (Reported) Metformin HCl 1,000 Mg Tablet, 1,000 MG PO BID, (Reported) Oxybutynin Chloride 5 Mg Tablet, 5 MG PO TID, (Reported) Patient Home Medication List Home Medication List Reviewed: Yes Review of Systems Review of Systems Constitutional: see HPI Genitourinary: see HPI, burning, dysuria : No Musculoskeletal: see HPI, back pain (lower) Skin: see HPI, lesions (diffuse, multiple, scabbed lesions) All Other Systemes Reviewed Negative Unless Noted: Yes (Negative excepted noted.) Past Zjahkzk-Osxtcl-Iptuvu Hx Patient Social History Alcohol Use: Denies Use Recreational Drug Use: No Smoking Status: Former Smoker Type Used: Cigarettes 2nd Hand Smoke Exposure: No Recent Foreign Travel: No Contact w/Someone Who Travel: No Recent Infectious Disease Expo: No Recent Hopitalizations: No Physical Abuse: No Sexual Abuse: No Mistreated: No Fear: No Immunizations Up To Date Tetanus Booster (TDap): Unknown Date of Pneumonia Vaccine: Feb 13, 2018 Seasonal Allergies Seasonal Allergies: No Past Medical History Surgeries: Yes (CYSTOSCOPIES, DILITATION URETHRAL STRICTURE) Appendectomy, Bladder Surgery, Section, Eye Surgery, Gallbladder, Tonsillectomy, Tubal Ligation Respiratory: Yes COPD Cardiac: Yes High Cholesterol, Hypertension Neurological: Yes (CVA W/ R SIDED WEAKNESS) Neuropathy, Stroke Genitourinary: Yes (TRIGONITIS) UTI-Chronic Gastrointestinal: No Musculoskeletal: Yes (CHRONIC KNEE PAIN) Arthritis Endocrine: Yes (MORBID OBESITY) Diabetes, Insulin dep HEENT: No (prior cataract surgeries) Psychosocial: Yes Depression Integumentary: Yes (L ORBITAL CELLULITIS, 2018 CHEEK CELLULITIS) Recent Skin Changes Physical Exam Vital Signs Vital Signs - First Documented 10/19/18 11:55 Temp 98.0 Pulse 74 Resp 18 B/P (MAP) 116/72 (87) Pulse Ox 98 O2 Delivery Room Air Capillary Refill : Less Than 3 Seconds Height, Weight, BMI Height: 5'6.00" Weight: 281lbs. 7.2oz. 127.056622xq; 45.4 BMI Method:Stated General Appearance: WD/WN, mild distress, obese Cardiovascular: regular rate, rhythm Respiratory: no respiratory distress Rectal: deferred Back: CVA tenderness (R), CVA tenderness (L) Neurologic/Psychiatric: no motor/sensory deficits, alert, oriented x 3 Skin: other (multiple scabbed lesions over body that appear c/w infected insect bites.) Progress/Results/Core Measures Suspected Sepsis Recent Fever Within 48 Hours: No Infection Criteria Present: None New/Unexplained Altered Menta: No Sepsis Screen: No Definite Risk SIRS Temperature:98.0 Pulse: 74 Respiratory Rate: 18 Blood Pressure 116 /72 Mean: 87 Results/Orders Lab Results My Orders Vital Signs/I&O Capillary Refill : Less Than 3 Seconds Blood Pressure Mean: 87 Departure Impression Primary Impression: Urinary tract infection Additional Impressions: Infected insect bites of multiple sites Back pain Disposition: HOME, SELF-CARE Condition: Stable Departure-Patient Inst. Referrals: KATIE HUDSON MD (PCP/Family) Primary Care Physician Patient Instructions: Insect Bites and Stings (DC), Urinary Tract Infection, Adult (DC) Add. Discharge Instructions: All discharge instructions reviewed with patient and/or family. Voiced understanding. RECOMMEND 600 mg OF IBUPROFEN &/OR 1000 mg OF TYLENOL EVERY 6 HOURS NEEDED FOR PAIN. DO NOT EXCEED 4000 mg OF TYLENOL IN A 24 HOUR PERIOD. Scripts Cefuroxime Axetil (Cefuroxime) 250 Mg Tablet 250 MG PO BID for UTI for 10 Days, #20 TAB 0 Refills Prov: EVELYN SAMPSON DO 10/19/18 EVELYN SAMPSON DO Oct 19, 2018 14:16
[2018-10-19 14:35] VITALS: BP 116/70
[2018-10-20] MEDS ORDERED: cefTRIAXone 1,000 MG/2.86 ml vial (IM ONLY) IM SCH (09:00)
[2018-10-22] MEDS ORDERED: CIPR500T4 PO (13:45)
== END 2018-10-19 14:35 | disposition home or self-care (01) ==
LOC: EDUNIT# 11:48 → ER FS 11:49
DX: T14.8XXA Other injury of unspecified body region, initial encounter (principal); N39.0 Urinary tract infection, site not specified; L08.9 Local infection of the skin and subcutaneous tissue, unspecified; J44.9 Chronic obstructive pulmonary disease, unspecified; I10 Essential (primary) hypertension; E78.00 Pure hypercholesterolemia, unspecified; E11.40 Type 2 diabetes mellitus with diabetic neuropathy, unspecified; E66.01 Morbid (severe) obesity due to excess calories; F32.9 Major depressive disorder, single episode, unspecified; Z87.440 Personal history of urinary (tract) infections; Z86.73 Personal history of transient ischemic attack (TIA), and cerebral infarction without residual deficits; Z90.49 Acquired absence of other specified parts of digestive tract; Z90.89 Acquired absence of other organs; Z98.51 Tubal ligation status; Z79.84 Long term (current) use of oral hypoglycemic drugs; Z87.891 Personal history of nicotine dependence; Z91.041 Radiographic dye allergy status; W57.XXXA Bitten or stung by nonvenomous insect and other nonvenomous arthropods, initial encounter
CPT/HCPCS: 81000; 87077; 87088; 87186; 96372; 99284

== ENCOUNTER 2018-11-10 16:00 | Emergency (ER) | payer MEDICAID ==
[~2018-11-10] VITALS: Ht 167.6 cm; Wt 127.5 kg
[~2018-11-10 16:00] MED LIST changes: +CEFU250T80 PO; +CIPR500T4 PO
--- OUTSIDE RECORDS SUMMARY | 2018-11-10 16:06 | XMS REPORT ---
Author Author KATIE HUDSON Organization [facility] Address [address] [place] [address] Care Team Providers Care [employer] Manager Name Role Phone KATIE HUDSON Unavailable PROBLEMS Type Condition ICD9-CM Code HNV90-SX Code Onset Dates Condition Status SNOMED Code Problem CAD (coronary artery disease) I25.10 Active 32749325 Problem Osteoarthritis of knees, bilateral M17.0 Active 741511983 Problem Essential hypertension I10 Active 73861966 Problem Diabetes E11.9 Active 09554779 Problem Arthritis M19.90 Active 1561596 Problem Morbid obesity E66.01 Active 188910150 Problem Hyperlipemia E78.5 Active 97025109 ALLERGIES No Information ENCOUNTERS Encounter Location Date Diagnosis [facility] [address] [address] Sep, [facility] [address] [address] Jul, [facility] [address] [address] Apr, [facility] [id number] [place] [address] Mar, Pustular lesion L08.9 and Encounter for immunization Z23 [facility] [id number] [place] [address] Feb, [facility] [address] [address] Dec, [facility] [address] [address] Dec, [facility] [address] [address] Dec, Diabetes E11.9 ; Essential hypertension I10 ; Arthritis M19.90 ; Urinary frequency R35.0 ; Routine adult health maintenance Z00.00 and BMI 45.0- 49.9, adult Z68.42 [facility] [id number] [place] [address] 18 Dec, 2017 [facility] [id number] [place] [address] Dec, [facility] [id number] [place] [address] Oct, [facility] [id number] [place] [address] Sep, Diabetes E11.9 [facility] [id number] [place] [address] Sep, Diabetes E11.9 ; Hyperlipemia E78.5 ; CAD (coronary artery disease) I25.10 ; Essential hypertension I10 and BMI 45.0-49.9, adult Z68.42 [facility] [id number] [place] [address] Sep, [facility] [id number] [place] [address] August, [facility] [id number] [place] [address] Jan, Dysuria R30.0 [facility] [id number] [place] [address] Jan, Dysuria R30.0 [facility] [id number] [place] [address] Jan, Osteoarthritis of knees, bilateral M17.0 [facility] [id number] [place] [address] Nov, Dysuria R30.0 [facility] [id number] [place] [address] Oct, Blood in urine R31.9 ; Dysuria R30.0 ; Pharyngeal dysphagia R13.13 ; Acute cystitis with hematuria N30.01 ; CAD (coronary artery disease) I25.10 and Diabetes E11.9 [facility] [id number] [place] [address] Oct, [facility] [id number] [place] [address] Sep, Arthritis M19.90 ; Blood in urine R31.9 ; Diabetes E11.9 ; Acute cystitis with hematuria N30.01 and Pharyngoesophageal dysphagia R13.14 [facility] [id number] [place] [address] Sep, Osteoarthritis of knees, bilateral M17.0 [facility] [id number] [place] [address] Sep, Osteoarthritis of knees, bilateral M17.0 [facility] [id number] [place] [address] August, Arthritis M19.90 [facility] [id number] [place] [address] Jul, Arthritis M19.90 [facility] [id number] [place] [address] Jun, Arthritis M19.90 [facility] [id number] [place] [address] Jun, [facility] [id number] [place] [address] Jun, [facility] [id number] [place] [address] May, Diabetes E11.9 ; Dysuria R30.0 and Arthritis M19.90 [facility] [id number] [place] [address] Apr, [facility] [address] [facility] [place] [id number] [address] Apr, Arthritis M19.90 [facility] [id number] [place] [address] Mar, Arthritis M19.90 [facility] [id number] [place] [address] Feb, [facility] [id number] [place] [address] Jan, [facility] [address] [place] [address] Dec, Diabetes E11.9 and Arthritis M19.90 [facility] [id number] [place] [address], [place] [address] Dec, [facility] [id number] [place] [address] Nov, Arthritis M19.90 [facility] [address], [place] [address] Nov, [facility] [address], [place] [address] Oct, Arthritis M19.90 [facility] [address], [place] [address] Sep, Osteoarthritis of knees, bilateral M17.0 [facility] [id number] [address] Sep, Osteoarthritis of knees, bilateral M17.0 [facility] [id number] [address] August, Arthritis M19.90 [facility] [id number] [address] August, [facility] [id number] [address] Jul, Hyperlipemia E78.5 [facility] [address], [place] [address] Jul, Encounter for well woman exam Z01.419 ; Morbid obesity E66.01 ; Encounter for screening for malignant neoplasm of cervix Z12.4 and Encounter for screening mammogram for breast cancer Z12.31 [facility] [address], [place] [address] Jul, Arthritis M19.90 ; Diabetes E11.9 ; Blood in urine R31.9 and UTI (urinary tract infection) N39.0 [facility] [address] [address] Jul, [facility] [id number] [address] Jun, Arthritis M19.90 [facility] [id number] [address] May, Arthritis M19.90 [facility] [address], [place] [address] May, [facility] [address], [place] [address] Apr, [facility] [address], [place] [address] Apr, Arthritis M19.90 ; Diabetes E11.9 and Morbid obesity E66.01 [facility] [address], [place] [address] Apr, [facility] [address], [place] [address] Apr, Dyspareunia N94.1 [facility] [address], [place] [address] Apr, [facility] [address], [place] [address] Apr, [facility] [address], [place] [address] Apr, Osteoarthritis of knees, bilateral M17.0 [facility] [address] [place] [address] Apr, Diabetes E11.9 and CAD (coronary artery disease) I25.10 [facility] [address] [place] [address] Mar, [facility] [id number] [place] [address] Feb, [facility] [id number] [place] [address] Jan, [facility] [id number] [place] [address] Jan, [facility] [id number] [place] [address] Jan, [facility] [address] [place] [address] Jan, Osteoarthritis of knees, bilateral M17.0 [facility] [address], [place] [address] 30 Dec, 2014 [facility] [address], [place] [address] 17 Dec, 2014 [facility] [address] [place] [address] Dec, [facility] [address], [place] [address] 08 Dec, 2014 Diabetes mellitus 250.00 and UTI (urinary tract infection) 599.0 [facility] [address], [place] [address] Dec, [facility] [address], [place] [address] Nov, [facility] [place] [facility] [address] [id number] [place] [address] Oct, [facility] [place] [facility] [address] [id number] [place] [address] Oct, [facility] [place] [facility] [address] [id number] [place] [address] Oct, [facility] [place] [facility] [address] [id number] [place] [address] Oct, [facility] [place] [facility] [address] [id number] [place] [address] Oct, [facility] [place] [facility] [address] [id number] [place] [address] Sep, [facility] [place] [facility] [address] [id number] [place] [address] August, [facility] [place] [facility] [address] [id number] [place] [address] August, [facility] [place] [facility] [address] [id number] [place] [address] August, [facility] [place] [facility] [address] [id number] [place] [address] Jul, [facility] [place] [facility] [address] [id number] [place] [address] Jul, [facility] [place] [facility] [address] [id number] [place] [address] Jul, [facility] [place] [facility] [address] [id number] [place] [address] Jun, [facility] [place] [facility] [address] [id number] [place] [address] Jun, [facility] [place] [facility] [address] [id number] [place] [address] Jun, [facility] [place] [facility] [address] [id number] [place] [address] Jun, [facility] [place] [facility] [address] [id number] [place] [address] Jun, [facility] [place] [facility] [address] [facility] [place] [id number] [place] [address] Jun, [facility] [place] [facility] [address] [facility] [place] [id number] [place] [address] Jun, [facility] [place] [facility] [address] [facility] [place] [id number] [place] [address] Jun, [facility] [place] [facility] [address] [facility] [place]] [id number] [place] [address] May, [facility] [place] [facility] [address] [facility] [place] [id number] [place] [address] May, 2014 [facility] [place] [facility] [address] [facility] [place] [id number] [place] [address] May, 2014 [facility] [place] [facility] [address] [facility] [place] [id number] [place] [address] May, 2014 [facility] [place] [facility] [address] [facility] [place] [id number] [place] [address] May, 2014 [facility] [place] [facility] [address] [facility] [place]] [id number] [place] [address] May, 2014 [facility] [place] [facility] [address] [facility] [place] [id number] [place] [address] May, 2014 [facility] [place] [facility] [address] [facility] [place] [id number], [place] [address] May, 2014 [facility] [place] [facility] [address] [facility] [place] [id number] [place] [address] May, 2014 [facility] [place] [facility] [address] [facility] [place]] [id number], [place] [address] May, 2014 [facility] [place] [facility] [address] [facility] [id number], [place] [address] May, [facility] [place] [facility] [address] [id number] [place] [address] May, [facility] [place] [facility] [address] [id number] [place] [address] Apr, [facility] [place] [facility] [address] [id number] [place] [address] Apr, [facility] [place] [facility] [address] [id number] [place] [address] Mar, [facility] [place] [facility] [address] [id number] [place] [address] Mar, [facility] [place] [facility] [address] [id number] [place] [address] Mar, [facility] [place] [facility] [address] [id number] [place] [address] Mar, [facility] [place] [facility] [address] [id number] [place] [address] Mar, [facility] [place] [facility] [address] [id number] [place] [address] Mar, [facility] [place] [facility] [address] [id number] [place] [address] Feb, [facility] [place] [facility] [address] [id number] [place] [address] Feb, [facility] [place] [facility] [address] [id number] [place] [address] Feb, [facility] [place] [facility] [address] [id number] [place] [address] Feb, [facility] [place] [facility] [address] [id number] [place] [address] Feb, [facility] [place] [facility] [address] [id number] [place] [address] Feb, [facility] [place] [facility] [address] [id number], [place] [address] Feb, [facility] [place] [facility] [address] [id number] [place] [address] Feb, [facility] [place] [facility] [address] [id number] [place] [address] Feb, [facility] [place] [facility] [address] [id number] [place] [address] Jan, [facility] [place] [facility] [address] [id number] [place] [address] Jan, [facility] [place] [facility] [address] [id number] [place] [address] Jan, [facility] [place] [facility] [address] [id number] [place] [address] Jan, [facility] [place] [facility] [address] [id number] [place] [address] Jan, [facility] [place] [facility] [address] [id number] [place] [address] Jan, [facility] [place] [facility] [address] [id number] [place] [address] Jan, [facility] [place] [facility] [address] [id number] [place] [address] Jan, [facility] [place] [facility] [address] [id number], [place] [address] Jan, [facility] [place] [facility] [address] [id number], [place] [address] Jan, [facility] [place] [facility] [address] [id number] [place] [address] 19 Dec, 2013 [facility] [place] [facility] [address] [id number] [place] [address] 19 Dec, 2013 [facility] [place] [facility] [address] [id number] [place] [address] 10 Dec, 2013 [facility] [place] [facility] [address] [id number] [place] [address] Dec, [facility] [place] [facility] [address] [id number] [place] [address] Nov, [facility] [place] [facility] [address] [id number] [place] [address] Nov, [facility] [place] [facility] [address] [id number] [place] [address] Nov, [facility] [place] [facility] [address] [id number] [place] [address] Nov, [facility] [place] [facility] [address] [id number] [place] [address] Nov, [facility] [place] [facility] [address] [id number] [place] [address] Nov, [facility] [place] [facility] [address] [id number] [place] [address] Nov, [facility] [place] [facility] [address] [id number] [place] [address] Nov, [facility] [place] [facility] [address] [id number] [place] [address] Nov, [facility] [place] [facility] [address] [id number] [place] [address] Oct, [facility] [place] [facility] [address] [id number] [place] [address] Oct, [facility] [place] [facility] [address] [id number] [place] [address] Sep, [facility] [place] [facility] [address] [id number] [place] [address] Sep, [facility] [place] [facility] [address] [id number] [place] [address] Sep, [facility] [place] [facility] [address] [id number] [place] [address] Sep, [facility] [place] [facility] [address] [id number] [place] [address] Sep, [facility] [place] [facility] [address] [id number] [place] [address] Sep, [facility] [place] [facility] [address] [id number] [place] [address] Sep, [facility] [place] [facility] [address] [id number] [place] [address] Sep, [facility] [place] [facility] [address] [id number] [place] [address] Sep, [facility] [place] [facility] [address] [id number] [place] [address] Sep, [facility] [place] [facility] [address] [id number] [place] [address] Sep, [facility] [place] [facility] [address] [id number] [place] [address] Sep, [facility] [place] [facility] [address] [id number] [place] [address] Sep, [facility] [place] [facility] [address] [id number] [place] [address] Sep, [facility] [place] [facility] [address] [id number] [place] [address] August, [facility] [place] [facility] [address] [id number] [place] [address] August, [facility] [place] [facility] [address] [id number] [place] [address] August, [facility] [place] [facility] [address] [id number] [place] [address] August, [facility] [place] [facility] [address] [id number] [place] [address] Jul, [facility] [place] [facility] [address] [id number] [place] [address] Jul, [facility] [place] [facility] [address] [id number] [place] [address] Jul, [facility] [place] [facility] [address] [id number] [place] [address] Jul, [facility] [place] [facility] [address] [id number] [place] [address] Jun, [facility] [place] [facility] [address] [id number] [place] [address] Jun, [facility] [place] [facility] [address] [id number] [place] [address] May, [facility] [place] [facility] [address] [id number] [place] [address] May, [facility] [place] [facility] [address] [id number] [place] [address] May, [facility] [place] [facility] [address] [id number] [place] [address] May, [facility] [place] [facility] [address] [id number] [place] [address] May, [facility] [place] [facility] [address] [id number] [place] [address] May, [facility] [place] [facility] [address] [id number] [place] [address] May, [facility] [place] [facility] [address] [id number] [place] [address] May, [facility] [place] [facility] [address] [id number] [place] [address] May, [facility] [place] [facility] [address] [id number] [place] [address] Apr, [facility] [place] [facility] [address] [id number] [place] [address] Apr, [facility] [place] [facility] [address] [id number] [place] [address] Apr, [facility] [place] [facility] [address] [id number] [place] [address] Apr, [facility] [place] [facility] [address] [id number] [place] [address] Apr, [facility] [place] [facility] [address] [id number] [place] [address] Mar, [facility] [place] [facility] [address] [id number] [place] [address] Mar, [facility] [place] [facility] [address] [id number] [place] [address] Feb, [facility] [place] [facility] [address] [id number] [place] [address] Feb, [facility] [place] [facility] [address] [id number] [place] [address] Feb, [facility] [place] [facility] [address] [id number] [place] [address] Feb, [facility] [place] [facility] [address] [id number], [place] [address] Feb, [facility] [place] [facility] [address] [id number], [place] [address] Feb, [facility] [place] [facility] [address] [id number], [place] [address] Feb, [facility] [place] [facility] [address] [id number] [place] [address] Feb, [facility] [place] [facility] [address] [id number], [place] [address] Feb, [facility] [place] [facility] [address] [id number], [place] [address] Jan, [facility] [place] [facility] [address] [id number] [place] [address] Jan, [facility] [address] [id number] [place] [address] Jan, [facility] [place] [facility] [address] [id number] [place] [address] Jan, [facility] [place] [facility] [address] [id number] [place] [address] Jan, [facility] [place] [facility] [address] [id number] [place] [address] Dec, [facility] [place] [facility] [address] [id number] [place] [address] Dec, [facility] [place] [facility] [address] [id number] [place] [address] Nov, [facility] [place] [facility] [address] [id number] [place] [address] Nov, [facility] [place] [facility] [address] [id number] [place] [address] Oct, [facility] [place] [facility] [address] [id number] [place] [address] Oct, [facility] [place] [facility] [address] [id number] [place] [address] Oct, [facility] [place] [facility] [address] [id number] [place] [address] Sep, [facility] [place] [facility] [address] [id number] [place] [address] Sep, [facility] [place] [facility] [address] [id number] [place] [address] Sep, [facility] [place] [facility] [address] [id number] [place] [address] August, [facility] [place] [facility] [address] [id number] [place] [address] August, [facility] [place] [facility] [address] [id number] [place] [address] August, [facility] [address] [id number] [place] [address] August, [facility] [place] [facility] [address] [id number] [place] [address] Jul, [facility] [place] [facility] [address] [id number] [place] [address] Jun, [facility] [place] [facility] [address] [id number] [place] [address] Jun, [facility] [place] [facility] [address] [id number] [place] [address] Jun, [facility] [address] [id number] [place] [address] May, [facility] [address] [id number] [place] [address] May, [facility] [place] [facility] [address] [id number] [place] [address] May, [facility] [address] [id number] [place] [address] May, [facility] [place] [facility] [address] [id number] [place] [address] Apr, [facility] [place] [facility] [address] [id number] [place] [address] Apr, [facility] [place] [facility] [address] [id number] [place] [address] Apr, [facility] [place] [facility] [address] [id number] [place] [address] 14 Apr, 2012 [facility] [place] [facility] [address] [id number] [place] [address] Apr, [facility] [place] [facility] [address] [id number], [place] [address] Mar, [facility] [place] [facility] [address] [id number] [place] [address] Mar, [facility] [place] [facility] [address] [id number] [place] [address] Mar, [facility] [place] [facility] [address] [facility] [place] [id number] [place] [address] Mar, [facility] [place] [facility] [address] [id number] [place] [address] Mar, [facility] [place] [facility] [address] [id number] [place] [address] Mar, [facility] [place] [facility] [address] [id number] [place] [address] Mar, [facility] [place] [facility] [address] [id number] [facility] [address] Feb, [facility] [place] [facility] [address] [id number] [place] [address] Feb, [facility] [place] [facility] [address] [facility] [place] [id number] [place] [address] Feb, [facility] [place] [facility] [address] [facility] [place] [id number] [place] [address] Feb, [facility] [place] [facility] [address] [facility] [place] [facility] [id number], [place] [address] Feb, [facility] [place] [facility] [address] [facility] [place] [id number], [place] [address] Feb, [facility] [place] [facility] [address] [id number] [place] [address] Feb, [facility] [place] [facility] [address] [facility] [place] [facility] [id number], [place] [address] Feb, [facility] [place] [facility] [address] [facility] [place] [id number] [place] [address] Jan, [facility] [place] [facility] [address] [id number] [place] [address] 24 Jan, 2012 [facility] [place] [facility] [address] [id number] [place] [address] Jan, [facility] [place] [facility] [address] [id number] [place] [address] Jan, [facility] [place] [facility] [address] [id number] [place] [address] 27 Dec, 2011 [facility] [place] [facility] [address] [id number] [place] [address] 25 Dec, 2011 [facility] [place] [facility] [address] [id number] [place] [address] 18 Dec, 2011 [facility] [place] [facility] [address] [id number] [place] [address] 13 Dec, 2011 [facility] [place] [facility] [address] [id number] [place] [address] 11 Dec, 2011 [facility] [place] [facility] [address] [id number] [place] [address] Oct, [facility] [place] [facility] [address] [id number] [place] [address] Oct, [facility] [place] [facility] [address] [id number] [place] [address] Sep, [facility] [place] [facility] [address] [id number] [place] [address] Sep, [facility] [place] [facility] [address] [id number] [place] [address] August, [facility] [place] [facility] [address] [id number] [place] [address] August, [facility] [place] [facility] [address] [id number] [place] [address] Jul, [facility] [place] [facility] [address] [id number] [place] [address] 28 Jun, 2011 [facility] [place] [facility] [address] [id number] [place] [address] 23 Jun, 2011 [facility] [place] [facility] [address] [id number] [place] [address] 23 Jun, 2011 [facility] [place] [facility] [address] [id number] [place] [address] 19 Jun, 2011 [facility] [place] [facility] [address] [id number] [place] [address] 2011 [facility] [place] [facility] [address] [id number] [place] [address] 24 May, 2011 [facility] [place] [facility] [address] [id number] [place] [address] 22 May, 2011 [facility] [place] [facility] [address] [id number] [place] [address] 20 May, 2011 [facility] [place] [facility] [address] [id number] [place] [address] 14 May, 2011 [facility] [place] [facility] [address] [id number] [place] [address] 13 May, 2011 [facility] [place] [facility] [address] [id number] [place] [address] 03 May, 2011 [facility] [place] [facility] [address] [id number] [place] [address] May, [facility] [place] [facility] [address] [id number] [place] [address] May, [facility] [place] [facility] [address] [id number] [place] [address] Apr, [facility] [place] [facility] [address] [id number] [place] [address] Mar, [facility] [place] [facility] [address] [id number] [place] [address] Mar, [facility] [place] [facility] [address] [facility] [place] [id number], [place] [address] Mar, [facility] [address] [facility] [place] [id number], [place] [address] Mar, [facility] [address] [facility] [place] [id number], [place] [address] Mar, [facility] [address] [facility] [place] [id number], [place] [address] Jan, [facility] [address] [facility] [place] [id number], [place] [address] Jan, [facility] [address] [facility] [place] [id number], [place] [address] Jan, [facility] [address] [facility] [place] [id number], [place] [address] August, [facility] [id number], [place] [address] Mar, [facility] [address] [facility] [place] [id number], [place] [address] Feb, [facility] [address] [facility] [place] [id number], [place] [address] Jan, [facility] [address] [id number], [place] [address] Jan, IMMUNIZATIONS No Known Immunizations SOCIAL HISTORY [...]
--- OUTSIDE RECORDS SUMMARY | 2018-11-10 16:06 | XMS REPORT ---
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 Name Role Phone KATIE HUDSON Unavailable PROBLEMS Type Condition ICD9-CM Code DOE93-JF Code Onset Dates Condition Status SNOMED Code Problem CAD (coronary artery disease) I25.10 Active 57561569 Problem Osteoarthritis of knees, bilateral M17.0 Active 416485112 Problem Essential hypertension I10 Active 65669235 Problem Diabetes E11.9 Active 89478017 Problem Arthritis M19.90 Active 6096022 Problem Morbid obesity E66.01 Active 676647674 Problem Hyperlipemia E78.5 Active 83910585 ALLERGIES No Information ENCOUNTERS Encounter Location Date Diagnosis [facility] [address] [address] Nov, [facility] [address] [address] Nov, [facility] [id number] [place] [address] Sep, [facility] [id number] [place] [address] Jul, [facility] [address] [address] Apr, [facility] [id number] [place] [address] Mar, Pustular lesion L08.9 and Encounter for immunization Z23 [facility] [id number] [place] [address] Feb, [facility] [address] [address] Dec, [facility] [address] [address] Dec, [facility] [id number] [place] [address] Dec, Diabetes E11.9 ; Essential hypertension I10 ; Arthritis M19.90 ; Urinary frequency R35.0 ; Routine adult health maintenance Z00.00 and BMI 45.0- 49.9, adult Z68.42 [facility] [id number] [place] [address] 18 Dec, 2017 [facility] [id number] [place] [address] Dec, [facility] [id number] [place] [address] Oct, [facility] [id number] [place] [address] Sep, Diabetes E11.9 [facility] [id number] [place] [address] Sep, Diabetes E11.9 ; Hyperlipemia E78.5 ; CAD (coronary artery disease) I25.10 ; Essential hypertension I10 and BMI 45.0-49.9, adult Z68.42 [facility] [id number] [place] [address] Sep, [facility] [id number] [place] [address] August, [facility] [id number] [place] [address] Jan, Dysuria R30.0 [facility] [id number] [place] [address] Jan, Dysuria R30.0 [facility] [id number] [place] [address] Jan, Osteoarthritis of knees, bilateral M17.0 [facility] [address] [place] [address] 14 Nov, 2016 Dysuria R30.0 [facility] [id number] [place] [address] Oct, Blood in urine R31.9 ; Dysuria R30.0 ; Pharyngeal dysphagia R13.13 ; Acute cystitis with hematuria N30.01 ; CAD (coronary artery disease) I25.10 and Diabetes E11.9 [facility] [id number] [place] [address] Oct, [facility] [id number] [place] [address] Sep, Arthritis M19.90 ; Blood in urine R31.9 ; Diabetes E11.9 ; Acute cystitis with hematuria N30.01 and Pharyngoesophageal dysphagia R13.14 [facility] [id number] [place] [address] Sep, Osteoarthritis of knees, bilateral M17.0 [facility] [id number] [place] [address] Sep, Osteoarthritis of knees, bilateral M17.0 [facility] [id number] [place] [address] August, Arthritis M19.90 [facility] [id number] [place] [address] Jul, Arthritis M19.90 [facility] [id number] [place] [address] Jun, Arthritis M19.90 [facility] [id number] [place] [address] Jun, [facility] [id number] [place] [address] Jun, [facility] [id number] [place] [address] May, Diabetes E11.9 ; Dysuria R30.0 and Arthritis M19.90 [facility] [id number] [place] [address] Apr, [facility] [id number] [place] [address] Apr, Arthritis M19.90 [facility] [id number] [place] [address] Mar, Arthritis M19.90 [facility] [id number] [place] [address] Feb, [facility] [id number] [place] [address] Jan, [facility] [id number] [place] [address] Dec, Diabetes E11.9 and Arthritis M19.90 [facility] [id number] [place] [address] Dec, [facility] [id number] [place] [address] Nov, Arthritis M19.90 [facility] [id number] [place] [address] Nov, [facility] [id number] [place] [address] Oct, Arthritis M19.90 [facility] [address] [place] [address] Sep, Osteoarthritis of knees, bilateral M17.0 [facility] [id number] [place] [address] Sep, Osteoarthritis of knees, bilateral M17.0 [facility] [address] [place] [address] August, Arthritis M19.90 [facility] [address] [address] August, [facility] [id number] [place] [address] Jul, Hyperlipemia E78.5 [facility] [address] [address] Jul, Encounter for well woman exam Z01.419 ; Morbid obesity E66.01 ; Encounter for screening for malignant neoplasm of cervix Z12.4 and Encounter for screening mammogram for breast cancer Z12.31 [place] [facility] [address] [place] [address] Jul, Arthritis M19.90 ; Diabetes E11.9 ; Blood in urine R31.9 and UTI (urinary tract infection) N39.0 [facility] [facility] [address] [address] Jul, [facility] [address] [address] Jun, Arthritis M19.90 [facility] [id number] [place] [address] May, Arthritis M19.90 [facility] [address] [address] May, [facility] [address] [address] Apr, [facility] [address] [address] Apr, Arthritis M19.90 ; Diabetes E11.9 and Morbid obesity E66.01 [facility] [address] [address] Apr, [facility] [address] [address] Apr, Dyspareunia N94.1 [facility] [address] [address] 15 Apr, 2015 [facility] [id number] [place] [address] 15 Apr, 2015 [facility] [id number] [place] [address] 14 Apr, 2015 Osteoarthritis of knees, bilateral M17.0 [facility] [id number] [place] [address] Apr, Diabetes E11.9 and CAD (coronary artery disease) I25.10 [facility] [id number] [place] [address] Mar, [facility] [id number] [place] [address] Feb, [facility] [id number] [place] [address] Jan, [facility] [address] [place] [address] Jan, [facility] [id number] [place] [address] Jan, [facility] [address] [place] [address] Jan, Osteoarthritis of knees, bilateral M17.0 [facility] [address] [place] [address] 30 Dec, 2014 [facility] [address] [address] 17 Dec, 2014 [facility] [address] [place] [address] 10 Dec, 2014 [facility] [address] [address] 08 Dec, 2014 Diabetes mellitus 250.00 and UTI (urinary tract infection) 599.0 [facility] [address] [id number] [place] [address] Dec, [facility] [place] [facility] [address] [id number] [place] [address] Nov, [facility] [place] [facility] [address] [id number] [place] [address] Oct, [facility] [place] [facility] [address] [id number] [place] [address] Oct, [facility] [place] [facility] [address] [id number] [place] [address] Oct, [facility] [place] [facility] [address] [id number] [place] [address] Oct, [facility] [place] [facility] [address] [id number] [place] [address] Oct, [facility] [place] [facility] [address] [id number] [place] [address] Sep, [facility] [place] [facility] [address] [id number] [place] [address] August, [facility] [place] [facility] [address] [id number] [place] [address] August, [facility] [place] [facility] [address] [id number] [place] [address] August, [facility] [place] [facility] [address] [id number] [place] [address] Jul, [facility] [place] [facility] [address] [id number] [place] [address] Jul, [facility] [place] [facility] [address] [id number] [place] [address] Jul, [facility] [place] [facility] [address] [id number] [place] [address] Jun, [facility] [place] [facility] [address] [id number] [place] [address] Jun, [facility] [place] [facility] [address] [id number] [place] [address] Jun, [facility] [place] [facility] [address] [id number] [place] [address] Jun, [facility] [place] [facility] [address] [facility] [id number] [place] [address] Jun, [facility] [place] [facility] [address] [facility] [id number] [place] [address] Jun, [facility] [place] [facility] [address] [id number] [place] [address] Jun, [facility] [place] [facility] [address] [facility] [id number] [place] [address] Jun, [facility] [place] [facility] [address] [facility] [id number] [place] [address] May, [facility] [place] [facility] [address] [facility] [id number] [place] [address] May, [facility] [place] [facility] [address] [facility] [id number] [place] [address] May, 2014 [facility] [place] [facility] [address] [facility] [id number] [place] [address] May, [facility] [place] [facility] [address] [facility] [id number] [place] [address] May, 2014 [facility] [place] [facility] [address] [facility] [id number] [address] May, 2014 [facility] [place] [facility] [address] [facility] [id number] [place] [address] May, 2014 [facility] [place] [facility] [address] [facility] [id number] [place] [address] May, 2014 [facility] [place] [facility] [address] [facility] [id number] [address] May, 2014 [facility] [place] [facility] [address] [id number] [place] [address] May, 2014 [facility] [place] [facility] [address] [id number] [place] [address] May, [facility] [place] [facility] [address] [id number] [place] [address] May, [facility] [place] [facility] [address] [id number] [place] [address] Apr, [facility] [place] [facility] [address] [id number] [place] [address] Apr, [facility] [place] [facility] [address] [id number] [place] [address] Mar, [facility] [place] [facility] [address] [id number] [place] [address] Mar, [facility] [place] [facility] [address] [id number] [place] [address] Mar, [facility] [place] [facility] [address] [id number] [place] [address] Mar, [facility] [place] [facility] [address] [id number] [place] [address] Mar, [facility] [place] [facility] [address] [id number] [place] [address] Mar, [facility] [place] [facility] [address] [id number] [place] [address] Feb, [facility] [place] [facility] [address] [id number] [place] [address] Feb, [facility] [place] [facility] [address] [id number] [place] [address] Feb, [facility] [place] [facility] [address] [id number] [place] [address] Feb, [facility] [place] [facility] [address] [id number] [address] Feb, [facility] [place] [facility] [address] [id number] [place] [address] Feb, [facility] [place] [facility] [address] [id number] [place] [address] Feb, [facility] [place] [facility] [address] [id number] [place] [address] Feb, [facility] [place] [facility] [address] [id number] [place] [address] Feb, [facility] [place] [facility] [address] [id number] [place] [address] Jan, [facility] [place] [facility] [address] [id number] [place] [address] Jan, [facility] [place] [facility] [address] [id number] [place] [address] Jan, [facility] [place] [facility] [address] [id number] [place] [address] Jan, [facility] [place] [facility] [address] [id number] [place] [address] Jan, [facility] [place] [facility] [address] [id number] [place] [address] Jan, [facility] [place] [facility] [address] [id number] [address] Jan, [facility] [place] [facility] [address] [id number] [address] 17 Jan, 2014 [facility] [place] [facility] [address] [id number] [place] [address] Jan, [facility] [place] [facility] [address] [id number] [place] [address] Jan, [facility] [place] [facility] [address] [id number] [place] [address] 19 Dec, 2013 [facility] [place] [facility] [address] [id number] [place] [address] Dec, [facility] [place] [facility] [address] [id number] [place] [address] Dec, [facility] [place] [facility] [address] [id number] [place] [address] Dec, [facility] [place] [facility] [address] [id number] [place] [address] Nov, [facility] [place] [facility] [address] [id number] [place] [address] Nov, [facility] [place] [facility] [address] [id number] [place] [address] Nov, [facility] [place] [facility] [address] [id number] [place] [address] Nov, [facility] [place] [facility] [address] [id number] [place] [address] Nov, [facility] [place] [facility] [address] [id number] [place] [address] Nov, [facility] [place] [facility] [address] [id number] [place] [address] Nov, [facility] [place] [facility] [address] [id number] [place] [address] Nov, [facility] [place] [facility] [address] [id number] [place] [address] Nov, [facility] [place] [facility] [address] [id number] [place] [address] Oct, [facility] [place] [facility] [address] [id number] [place] [address] Oct, [facility] [place] [facility] [address] [id number] [place] [address] Sep, [facility] [place] [facility] [address] [id number] [place] [address] Sep, [facility] [place] [facility] [address] [id number] [place] [address] Sep, [facility] [place] [facility] [address] [id number] [place] [address] Sep, [facility] [place] [facility] [address] [id number] [place] [address] Sep, [facility] [place] [facility] [address] [id number] [place] [address] Sep, [facility] [place] [facility] [address] [id number] [place] [address] Sep, [facility] [place] [facility] [address] [id number] [place] [address] Sep, [facility] [place] [facility] [address] [id number] [place] [address] Sep, [facility] [place] [facility] [address] [id number] [place] [address] Sep, [facility] [place] [facility] [address] [id number] [place] [address] Sep, [facility] [place] [facility] [address] [id number] [place] [address] Sep, [facility] [place] [facility] [address] [id number] [place] [address] Sep, [facility] [place] [facility] [address] [id number] [place] [address] Sep, [facility] [place] [facility] [address] [id number] [place] [address] August, [facility] [place] [facility] [address] [id number] [place] [address] August, [facility] [place] [facility] [address] [id number] [place] [address] August, [facility] [place] [facility] [address] [id number] [place] [address] August, [facility] [place] [facility] [address] [id number] [place] [address] Jul, [facility] [place] [facility] [address] [id number] [place] [address] Jul, [facility] [place] [facility] [address] [facility] [id number] [place] [address] Jul, [facility] [place] [facility] [address] [id number] [place] [address] Jul, [facility] [place] [facility] [address] [id number] [place] [address] Jun, [facility] [place] [facility] [address] [facility] [id number] [place] [address] Jun, [facility] [place] [facility] [address] [id number] [place] [address] May, [facility] [place] [facility] [address] [id number] [place] [address] May, [facility] [place] [facility] [address] [facility] [id number] [place] [address] May, [facility] [place] [facility] [address] [facility] [id number] [place] [address] May, [facility] [place] [facility] [address] [facility] [id number] [place] [address] May, [facility] [place] [facility] [address] [facility] [id number] [place] [address] May, [facility] [place] [facility] [address] [facility] [id number] [place] [address] May, [facility] [place] [facility] [address] [facility] [id number] [place] [address] May, [facility] [place] [facility] [address] [facility] [id number] [place] [address] May, [facility] [place] [facility] [address] [id number] [place] [address] Apr, [facility] [place] [facility] [address] [id number] [place] [address] Apr, [facility] [place] [facility] [address] [id number] [place] [address] Apr, [facility] [place] [facility] [address] [id number] [place] [address] Apr, [facility] [place] [facility] [address] [id number] [place] [address] Apr, [facility] [place] [facility] [address] [id number] [place] [address] Mar, [facility] [place] [facility] [address] [id number] [place] [address] Mar, [facility] [place] [facility] [address] [id number] [place] [address] Feb, [facility] [place] [facility] [address] [id number] [place] [address] Feb, [facility] [place] [facility] [address] [id number] [place] [address] Feb, [facility] [place] [facility] [address] [id number] [place] [address] Feb, [facility] [place] [facility] [address] [id number] [place] [address] Feb, [facility] [place] [facility] [address] [id number] [place] [address] Feb, [facility] [place] [facility] [address] [id number] [place] [address] Feb, [facility] [place] [facility] [address] [id number] [place] [address] Feb, [facility] [place] [facility] [address] [id number] [place] [address] Feb, [facility] [place] [facility] [address] [id number] [place] [address] Jan, [facility] [place] [facility] [address] [id number] [place] [address] Jan, [facility] [place] [facility] [address] [id number] [place] [address] Jan, [facility] [place] [facility] [address] [id number] [place] [address] Jan, [facility] [place] [facility] [address] [id number] [place] [address] Jan, [facility] [place] [facility] [address] [id number] [place] [address] Dec, [facility] [place] [facility] [address] [id number] [place] [address] Dec, [facility] [place] [facility] [address] [id number] [place] [address] Nov, [facility] [place] [facility] [address] [id number] [place] [address] Nov, [facility] [place] [facility] [address] [id number] [place] [address] Oct, [facility] [place] [facility] [address] [id number] [place] [address] Oct, [facility] [place] [facility] [address] [id number] [place] [address] Oct, [facility] [place] [facility] [address] [id number] [place] [address] Sep, [facility] [place] [facility] [address] [id number] [place] [address] Sep, [facility] [place] [facility] [address] [id number] [place] [address] Sep, [facility] [place] [facility] [address] [id number] [place] [address] August, [facility] [address] [id number] [place] [address] August, [facility] [address] [id number] [place] [address] August, [facility] [address] [id number] [place] [address] August, [facility] [address] [id number] [place] [address] Jul, [facility] [address] [id number] [place] [address] Jun, [facility] [address] [id number] [place] [address] Jun, [facility] [address] [id number] [place] [address] Jun, [facility] [address] [id number] [place] [address] May, [facility] [address] [id number] [place] [address] May, [facility] [place] [facility] [address] [id number] [place] [address] May, [facility] [address] [id number] [place] [address] May, [facility] [place] [facility] [address] [id number] [place] [address] Apr, [facility] [place] [facility] [address] [id number] [place] [address] Apr, [facility] [place] [facility] [address] [id number] [place] [address] Apr, [facility] [place] [facility] [address] [id number] [place] [address] Apr, [facility] [address] [id number] [place] [address] Apr, [facility] [place] [facility] [address] [id number] [place] [address] Mar, [facility] [place] [facility] [address] [id number] [place] [address] Mar, [facility] [place] [facility] [address] [id number] [place] [address] Mar, [facility] [facility] [address] [id number] [place] [address] Mar, [facility] [place] [facility] [address] [id number] [place] [address] Mar, [facility] [place] [facility] [address] [id number] [place] [address] Mar, [facility] [place] [facility] [address] [id number] [place] [address] Mar, [facility] [place] [facility] [address] [id number] [place] [address] Feb, [facility] [place] [facility] [address] [facility] [id number] [place] [address] Feb, [facility] [place] [facility] [address] [id number] [place] [address] Feb, [facility] [place] [facility] [address] [id number] [place] [address] Feb, [facility] [place] [facility] [address] [id number] [place] [address] Feb, [facility] [place] [facility] [address] [facility] [id number] [place] [address] Feb, [facility] [place] [facility] [address] [facility] [id number] [place] [address] Feb, [facility] [place] [facility] [address] [id number] [place] [address] Feb, [facility] [place] [facility] [address] [id number] [place] [address] Jan, [facility] [place] [facility] [address] [id number] [place] [address] Jan, [facility] [place] [facility] [address] [id number] [place] [address] Jan, [facility] [place] [facility] [address] [id number] [place] [address] Jan, [facility] [place] [facility] [address] [id number] [place] [address] 27 Dec, 2011 [facility] [place] [facility] [address] [id number] [place] [address] 25 Dec, 2011 [facility] [place] [facility] [address] [id number] [place] [address] 18 Dec, 2011 [facility] [place] [facility] [address] [id number] [place] [address] 13 Dec, 2011 [facility] [place] [facility] [address] [id number] [place] [address] Dec, [facility] [place] [facility] [address] [id number] [place] [address] Oct, [facility] [place] [facility] [address] [id number] [place] [address] Oct, [facility] [place] [facility] [address] [id number] [place] [address] Sep, [facility] [place] [facility] [address] [id number] [place] [address] Sep, [facility] [place] [facility] [address] [id number] [place] [address] August, [facility] [place] [facility] [address] [id number] [place] [address] August, [facility] [place] [facility] [address] [id number] [place] [address] 04 Jul, 2011 [facility] [place] [facility] [address] [id number] [place] [address] Jun, [facility] [place] [facility] [address] [id number] [place] [address] Jun, [facility] [place] [facility] [address] [id number] [place] [address] 23 Jun, 2011 [facility] [place] [facility] [address] [id number] [place] [address] 19 Jun, 2011 [facility] [place] [facility] [address] [id number] [place] [address] Jun, [facility] [place] [facility] [address] [facility] [id number] [place] [address] 24 May, 2011 [facility] [place] [facility] [address] [id number] [place] [address] May, [facility] [place] [facility] [address] [facility] [id number] [place] [address] May, [facility] [place] [facility] [address] [facility] [id number] [place] [address] 14 May, 2011 [facility] [place] [facility] [address] [id number] [place] [address] 13 May, 2011 [facility] [place] [facility] [address] [id number] [place] [address] 03 May, 2011 [facility] [place] [facility] [address] [facility] [id number] [place] [address] 02 May, 2011 [facility] [place] [facility] [address] [facility] [id number] [place] [address] 02 May, 2011 [facility] [place] [facility] [address] [facility] [id number] [place] [address] Apr, [facility] [place] [facility] [address] [facility] [id number] [place] [address] Mar, [facility] [address] [facility] [id number] [place] [address] Mar, [facility] [address] [facility] [id number] [place] [address] Mar, [facility] [address] [facility] [id number] [place] [address] Mar, [facility] [address] [facility] [id number] [place] [address] Mar, [facility] [address] [facility] [id number] [place] [address] Jan, [facility] [address] [facility] [id number] [place] [address] Jan, [facility] [id number] [address] Jan, [facility] [address] [facility] [id number] [place] [address] August, [facility] [address] [facility] [id number] [place] [address] Mar, [facility] [address] [id number] [address] Feb, [facility] [address] [id number] [place] [address] 14 Jan, 2010 [facility] [address] [facility] [id number] [place] [address] Jan, IMMUNIZATIONS No Known Immunizations SOCIAL HISTORY [...]
--- OUTSIDE RECORDS SUMMARY | 2018-11-10 16:07 | XMS REPORT ---
Author Author KATIE HUDSON Organization [facility] Address [address] [place] [address] Care Team Providers Care Foster Care Case Manager Name Role Phone KATIE HUDSON Unavailable PROBLEMS Type Condition ICD9-CM Code WLP12-QR Code Onset Dates Condition Status SNOMED Code Problem CAD (coronary artery disease) I25.10 Active 63008004 Problem Osteoarthritis of knees, bilateral M17.0 Active 639245391 Problem Essential hypertension I10 Active 32685466 Problem Diabetes E11.9 Active 77229647 Problem Arthritis M19.90 Active 6345372 Problem Morbid obesity E66.01 Active 734679332 Problem Hyperlipemia E78.5 Active [id number] ALLERGIES No Information ENCOUNTERS Encounter Location Date Diagnosis [facility] [address] [address] Sep, [facility] [address] [address] Jul, [facility] [address] [address] Apr, [facility] [id number] [place] [address] Mar, Pustular lesion L08.9 and Encounter for immunization Z23 [facility] [id number] [place] [address] Feb, [facility] [address] [address] Dec, [facility] [address] [address] Dec, [facility] [address] [address] Dec, Diabetes E11.9 ; Essential hypertension I10 ; Arthritis M19.90 ; Urinary frequency R35.0 ; Routine adult health maintenance Z00.00 and BMI 45.0- 49.9, adult Z68.42 [facility] [id number] [place] [address] 18 Dec, 2017 [facility] [id number] [place] [address] Dec, [facility] [id number] [place] [address] Oct, [facility] [id number] [place] [address] Sep, Diabetes E11.9 [facility] [id number] [place] [address] Sep, Diabetes E11.9 ; Hyperlipemia E78.5 ; CAD (coronary artery disease) I25.10 ; Essential hypertension I10 and BMI 45.0-49.9, adult Z68.42 [facility] [id number] [place] [address] Sep, [facility] [id number] [place] [address] August, [facility] [id number] [place] [address] Jan, Dysuria R30.0 [facility] [id number] [place] [address] Jan, Dysuria R30.0 [facility] [id number] [place] [address] Jan, Osteoarthritis of knees, bilateral M17.0 [facility] [id number] [place] [address] Nov, Dysuria R30.0 [facility] [id number] [place] [address] Oct, Blood in urine R31.9 ; Dysuria R30.0 ; Pharyngeal dysphagia R13.13 ; Acute cystitis with hematuria N30.01 ; CAD (coronary artery disease) I25.10 and Diabetes E11.9 [facility] [id number] [place] [address] Oct, [facility] [id number] [place] [address] Sep, Arthritis M19.90 ; Blood in urine R31.9 ; Diabetes E11.9 ; Acute cystitis with hematuria N30.01 and Pharyngoesophageal dysphagia R13.14 [place] [id number] [place] [address] Sep, Osteoarthritis of knees, bilateral M17.0 [place] [id number] [place] [address] Sep, Osteoarthritis of knees, bilateral M17.0 [place] [id number] [place] [address] August, Arthritis M19.90 [place] [id number] [place] [address] Jul, Arthritis M19.90 [facility] [id number] [place] [address] Jun, Arthritis M19.90 [facility] [id number] [place] [address] Jun, [facility] [id number] [place] [address] Jun, [facility] [id number] [place] [address] May, Diabetes E11.9 ; Dysuria R30.0 and Arthritis M19.90 [facility] [id number] [place] [address] Apr, [facility] [address] [facility] [id number] [address] Apr, Arthritis M19.90 [facility] [id number] [place] [address] Mar, Arthritis M19.90 [facility] [id number] [address] Feb, [facility] [id number] [place] [address] Jan, [facility] [id number] [place] [address] Dec, Diabetes E11.9 and Arthritis M19.90 [facility] [id number] [place] [address], [place] [address] Dec, [facility] [id number] [place] [address] Nov, Arthritis M19.90 [facility] [address] [address] Nov, [facility] [id number] [address] Oct, Arthritis M19.90 [facility] [address] [address] Sep, Osteoarthritis of knees, bilateral M17.0 [facility] [id number] [address] Sep, Osteoarthritis of knees, bilateral M17.0 [facility] [id number] [address] August, Arthritis M19.90 [facility] [id number] [address] August, [facility] [id number] [address] Jul, Hyperlipemia E78.5 [facility] [address] [address] Jul, Encounter for well woman exam Z01.419 ; Morbid obesity E66.01 ; Encounter for screening for malignant neoplasm of cervix Z12.4 and Encounter for screening mammogram for breast cancer Z12.31 [facility] [address] [address] Jul, Arthritis M19.90 ; Diabetes E11.9 ; Blood in urine R31.9 and UTI (urinary tract infection) N39.0 [facility] [address] [address] Jul, [facility] [id number] [address] Jun, Arthritis M19.90 [facility] [id number] [address] May, Arthritis M19.90 [facility] [address] [address] May, [facility] [address] [address] Apr, [facility] [address] [address] Apr, Arthritis M19.90 ; Diabetes E11.9 and Morbid obesity E66.01 [facility] [address] [address] Apr, [facility] [address] [address] Apr, Dyspareunia N94.1 [facility] [address] [address] Apr, [facility] [address] [address] Apr, [facility] [address] [address] Apr, Osteoarthritis of knees, bilateral M17.0 [facility] [id number] [place] [address] Apr, Diabetes E11.9 and CAD (coronary artery disease) I25.10 [facility] [id number] [place] [address] Mar, [facility] [id number] [place] [address] Feb, [facility] [id number] [place] [address] Jan, [facility] [id number] [place] [address] Jan, [facility] [id number] [place] [address] Jan, [facility] [id number] [place] [address] Jan, Osteoarthritis of knees, bilateral M17.0 [facility] [address] [address] 30 Dec, 2014 [facility] [address] [address] 17 Dec, 2014 [facility] [id number] [place] [address] Dec, [facility] [address] [address] 08 Dec, 2014 Diabetes mellitus 250.00 and UTI (urinary tract infection) 599.0 [facility] [address] [address] Dec, [facility] [address] [address] Nov, [facility] [place] [facility] [address] [id number] [place] [address] Oct, [facility] [place] [facility] [address] [id number] [place] [address] Oct, [facility] [place] [facility] [address] [id number] [place] [address] Oct, [facility] [place] [facility] [address] [id number] [place] [address] Oct, [facility] [place] [facility] [address] [id number] [place] [address] Oct, [facility] [place] [facility] [address] [id number] [place] [address] Sep, [facility] [place] [facility] [address] [id number] [place] [address] August, [facility] [place] [facility] [address] [id number] [place] [address] August, [facility] [place] [facility] [address] [id number] [place] [address] August, [facility] [place] [facility] [address] [id number] [place] [address] Jul, [facility] [place] [facility] [address] [id number] [place] [address] Jul, [facility] [place] [facility] [address] [id number] [place] [address] Jul, [facility] [place] [facility] [address] [id number] [place] [address] Jun, [facility] [place] [facility] [address] [id number] [place] [address] Jun, [facility] [place] [facility] [address] [id number] [place] [address] Jun, [facility] [place] [facility] [address] [id number] [place] [address] Jun, [facility] [place] [facility] [address] [id number] [place] [address] Jun, [facility] [place] [facility] [address] [facility] [id number] [place] [address] Jun, [facility] [place] [facility] [address] [facility] [id number] [place] [address] Jun, [facility] [place] [facility] [address] [facility] [id number] [place] [address] Jun, [facility] [place] [facility] [address] [facility] [id number] [place] [address] May, [facility] [place] [facility] [address] [facility] [id number] [place] [address] May, 2014 [facility] [place] [facility] [address] [facility] [id number] [place] [address] May, 2014 [facility] [place] [facility] [address] [facility] [id number] [place] [address] May, 2014 [facility] [place] [facility] [address] [facility] [id number] [place] [address] May, 2014 [facility] [place] [facility] [address] [facility] [id number] [place] [address] May, 2014 [facility] [place] [facility] [address] [facility] [id number] [place] [address] May, 2014 [facility] [place] [facility] [address] [facility] [id number] [place] [address] May, 2014 [facility] [place] [facility] [address] [facility] [id number] [place] [address] May, 2014 [facility] [place] [facility] [address] [facility] [id number] [place] [address] May, 2014 [facility] [place] [facility] [address] [facility] [id number] [place] [address] May, [facility] [place] [facility] [address] [id number] [place] [address] May, [facility] [place] [facility] [address] [id number] [place] [address] Apr, [facility] [place] [facility] [address] [id number] [place] [address] Apr, [facility] [place] [facility] [address] [id number] [place] [address] Mar, [facility] [place] [facility] [address] [id number] [place] [address] Mar, [facility] [place] [facility] [address] [id number] [place] [address] Mar, [facility] [place] [facility] [address] [id number] [place] [address] Mar, [facility] [place] [facility] [address] [id number] [place] [address] Mar, [facility] [place] [facility] [address] [id number] [place] [address] Mar, [facility] [place] [facility] [address] [id number] [place] [address] Feb, [facility] [place] [facility] [address] [id number] [place] [address] Feb, [facility] [place] [facility] [address] [id number] [place] [address] Feb, [facility] [place] [facility] [address] [id number] [place] [address] Feb, [facility] [place] [facility] [address] [id number] [place] [address] Feb, [facility] [place] [facility] [address] [id number] [place] [address] Feb, [facility] [place] [facility] [address] [id number] [place] [address] Feb, [facility] [place] [facility] [address] [id number] [place] [address] Feb, [facility] [place] [facility] [address] [id number] [place] [address] Feb, [facility] [place] [facility] [address] [id number] [place] [address] Jan, [facility] [place] [facility] [address] [id number] [place] [address] Jan, [facility] [place] [facility] [address] [id number] [place] [address] Jan, [facility] [place] [facility] [address] [id number] [place] [address] Jan, [facility] [place] [facility] [address] [id number] [place] [address] Jan, [facility] [place] [facility] [address] [id number] [place] [address] Jan, [facility] [place] [facility] [address] [id number] [place] [address] Jan, [facility] [place] [facility] [address] [id number] [place] [address] Jan, [facility] [place] [facility] [address] [id number] [place] [address] Jan, [facility] [place] [facility] [address] [id number] [place] [address] Jan, [facility] [place] [facility] [address] [id number] [place] [address] 19 Dec, 2013 [facility] [place] [facility] [address] [id number] [place] [address] 19 Dec, 2013 [facility] [place] [facility] [address] [id number] [place] [address] 10 Dec, 2013 [facility] [place] [facility] [address] [id number] [place] [address] Dec, [facility] [place] [facility] [address] [id number] [place] [address] Nov, [facility] [place] [facility] [address] [id number] [place] [address] Nov, [facility] [place] [facility] [address] [id number] [place] [address] Nov, [facility] [place] [facility] [address] [id number] [place] [address] Nov, [facility] [place] [facility] [address] [id number] [place] [address] Nov, [facility] [place] [facility] [address] [id number] [place] [address] Nov, [facility] [place] [facility] [address] [id number] [place] [address] Nov, [facility] [place] [facility] [address] [id number] [place] [address] Nov, [facility] [place] [facility] [address] [id number] [place] [address] Nov, [facility] [place] [facility] [address] [id number] [place] [address] Oct, [facility] [place] [facility] [address] [id number] [place] [address] Oct, [facility] [place] [facility] [address] [id number] [place] [address] Sep, [facility] [place] [facility] [address] [id number] [place] [address] Sep, [facility] [place] [facility] [address] [id number] [place] [address] Sep, [facility] [place] [facility] [address] [id number] [place] [address] Sep, [facility] [place] [facility] [address] [id number] [place] [address] Sep, [facility] [place] [facility] [address] [id number] [place] [address] Sep, [facility] [place] [facility] [address] [id number] [place] [address] Sep, [facility] [place] [facility] [address] [id number] [place] [address] Sep, [facility] [place] [facility] [address] [id number] [place] [address] Sep, [facility] [place] [facility] [address] [id number] [place] [address] Sep, [facility] [place] [facility] [address] [id number] [place] [address] Sep, [facility] [place] [facility] [address] [id number] [place] [address] Sep, [facility] [place] [facility] [address] [id number] [place] [address] Sep, [facility] [place] [facility] [address] [id number] [place] [address] Sep, [facility] [place] [facility] [address] [id number] [place] [address] August, [facility] [place] [facility] [address] [id number] [place] [address] August, [facility] [place] [facility] [address] [id number] [place] [address] August, [facility] [place] [facility] [address] [id number] [place] [address] August, [facility] [place] [facility] [address] [id number] [place] [address] Jul, [facility] [place] [facility] [address] [id number] [place] [address] Jul, [facility] [place] [facility] [address] [id number] [place] [address] Jul, [facility] [place] [facility] [address] [id number] [place] [address] Jul, [facility] [place] [facility] [address] [id number] [place] [address] Jun, [facility] [place] [facility] [address] [id number] [place] [address] Jun, [facility] [place] [facility] [address] [id number] [place] [address] May, [facility] [place] [facility] [address] [id number] [place] [address] May, [facility] [place] [facility] [address] [id number] [place] [address] May, [facility] [place] [facility] [address] [id number] [place] [address] May, [facility] [place] [facility] [address] [id number] [place] [address] May, [facility] [place] [facility] [address] [id number] [place] [address] May, [facility] [place] [facility] [address] [id number] [place] [address] May, [facility] [place] [facility] [address] [id number] [place] [address] May, [facility] [place] [facility] [address] [id number] [place] [address] May, [facility] [place] [facility] [address] [id number] [place] [address] Apr, [facility] [place] [facility] [address] [id number] [place] [address] Apr, [facility] [place] [facility] [address] [id number] [place] [address] Apr, [facility] [place] [facility] [address] [id number] [place] [address] Apr, [facility] [place] [facility] [address] [id number] [place] [address] Apr, [facility] [place] [facility] [address] [id number] [place] [address] Mar, [facility] [place] [facility] [address] [id number] [place] [address] Mar, [facility] [place] [facility] [address] [id number] [place] [address] Feb, [facility] [place] [facility] [address] [id number] [place] [address] Feb, [facility] [place] [facility] [address] [id number] [place] [address] Feb, [facility] [place] [facility] [address] [id number] [place] [address] Feb, [facility] [place] [facility] [address] [id number] [place] [address] Feb, [facility] [place] [facility] [address] [id number] [place] [address] Feb, [facility] [place] [facility] [address] [id number] [place] [address] Feb, [facility] [place] [facility] [address] [id number] [place] [address] Feb, [facility] [place] [facility] [address] [id number] [place] [address] Feb, [facility] [place] [facility] [address] [id number] [place] [address] Jan, [facility] [place] [facility] [address] [id number] [place] [address] Jan, [facility] [address] [id number] [place] [address] Jan, [facility] [place] [facility] [address] [id number] [place] [address] Jan, [facility] [place] [facility] [address] [id number] [place] [address] Jan, [facility] [place] [facility] [address] [id number] [place] [address] Dec, [facility] [place] [facility] [address] [id number] [place] [address] Dec, [facility] [place] [facility] [address] [id number] [place] [address] Nov, [facility] [place] [facility] [address] [id number] [place] [address] Nov, [facility] [place] [facility] [address] [id number] [place] [address] Oct, [facility] [place] [facility] [address] [id number] [place] [address] Oct, [facility] [place] [facility] [address] [id number] [place] [address] Oct, [facility] [place] [facility] [address] [id number] [place] [address] Sep, [facility] [place] [facility] [address] [id number] [place] [address] Sep, [facility] [place] [facility] [address] [id number] [place] [address] Sep, [facility] [place] [facility] [address] [id number] [place] [address] August, [facility] [place] [facility] [address] [id number] [place] [address] August, [facility] [place] [facility] [address] [id number] [place] [address] August, [facility] [address] [id number] [place] [address] August, [facility] [place] [facility] [address] [id number] [place] [address] Jul, [facility] [place] [facility] [address] [id number] [place] [address] Jun, [facility] [place] [facility] [address] [id number] [place] [address] Jun, [facility] [place] [facility] [address] [id number] [place] [address] Jun, [facility] [address] [id number] [place] [address] May, [facility] [address] [id number] [place] [address] May, [facility] [place] [facility] [address] [id number] [place] [address] May, [facility] [address] [id number] [place] [address] May, [facility] [place] [facility] [address] [id number] [place] [address] Apr, [facility] [place] [facility] [address] [id number] [place] [address] Apr, [facility] [place] [facility] [address] [id number] [place] [address] Apr, [facility] [place] [facility] [address] [id number] [place] [address] 14 Apr, 2012 [facility] [place] [facility] [address] [id number] [place] [address] Apr, [facility] [place] [facility] [address] [id number] [place] [address] Mar, [facility] [place] [facility] [address] [id number] [place] [address] Mar, [facility] [place] [facility] [address] [id number] [place] [address] Mar, [facility] [place] [facility] [address] [facility] [id number] [place] [address] Mar, [facility] [place] [facility] [address] [id number] [place] [address] Mar, [facility] [place] [facility] [address] [id number] [place] [address] Mar, [facility] [place] [facility] [address] [id number] [place] [address] Mar, [facility] [place] [facility] [address] [id number] [address] Feb, [facility] [place] [facility] [address] [id number] [place] [address] Feb, [facility] [place] [facility] [address] [facility] [id number] [place] [address] Feb, [facility] [place] [facility] [address] [facility] [id number] [place] [address] Feb, [facility] [place] [facility] [address] [facility] [id number] [place] [address] Feb, [facility] [place] [facility] [address] [facility] [id number] [place] [address] Feb, [facility] [place] [facility] [address] [id number] [place] [address] Feb, [facility] [place] [facility] [address] [facility] [id number] [place] [address] Feb, [facility] [place] [facility] [address] [facility] [id number] [place] [address] Jan, [facility] [place] [facility] [address] [id number] [place] [address] 24 Jan, 2012 [facility] [place] [facility] [address] [id number] [place] [address] Jan, [facility] [place] [facility] [address] [id number] [place] [address] Jan, [facility] [place] [facility] [address] [id number] [place] [address] 27 Dec, 2011 [facility] [place] [facility] [address] [id number] [place] [address] 25 Dec, 2011 [facility] [place] [facility] [address] [id number] [place] [address] 18 Dec, 2011 [facility] [place] [facility] [address] [id number] [place] [address] 13 Dec, 2011 [facility] [place] [facility] [address] [id number] [place] [address] 11 Dec, 2011 [facility] [place] [facility] [address] [id number] [place] [address] Oct, [facility] [place] [facility] [address] [id number] [place] [address] Oct, [facility] [place] [facility] [address] [id number] [place] [address] Sep, [facility] [place] [facility] [address] [id number] [place] [address] Sep, [facility] [place] [facility] [address] [id number] [place] [address] August, [facility] [place] [facility] [address] [id number] [place] [address] August, [facility] [place] [facility] [address] [id number] [place] [address] Jul, [facility] [place] [facility] [address] [id number] [place] [address] 28 Jun, 2011 [facility] [place] [facility] [address] [id number] [place] [address] 23 Jun, 2011 [facility] [place] [facility] [address] [id number] [place] [address] 23 Jun, 2011 [facility] [place] [facility] [address] [id number] [place] [address] 19 Jun, 2011 [facility] [place] [facility] [address] [id number] [place] [address] 2011 [facility] [place] [facility] [address] [id number] [place] [address] 24 May, 2011 [facility] [place] [facility] [address] [id number] [place] [address] 22 May, 2011 [facility] [place] [facility] [address] [id number] [place] [address] 20 May, 2011 [facility] [place] [facility] [address] [id number] [place] [address] 14 May, 2011 [facility] [place] [facility] [address] [id number] [place] [address] 13 May, 2011 [facility] [place] [facility] [address] [id number] [place] [address] 03 May, 2011 [facility] [place] [facility] [address] [id number] [place] [address] May, [facility] [place] [facility] [address] [id number] [place] [address] May, [facility] [place] [facility] [address] [id number] [place] [address] Apr, [facility] [place] [facility] [address] [id number] [place] [address] Mar, [facility] [place] [facility] [address] [id number] [place] [address] Mar, [facility] [place] [facility] [address] [facility] [id number] [place] [address] Mar, [facility] [address] [facility] [id number] [place] [address] Mar, [facility] [address] [facility] [id number] [place] [address] Mar, [facility] [address] [facility] [id number] [place] [address] Jan, [facility] [address] [facility] [id number] [place] [address] Jan, [facility] [address] [facility] [id number] [place] [address] Jan, [facility] [address] [facility] [id number] [place] [address] August, [facility] [id number] [address] Mar, [facility] [address] [facility] [id number] [place] [address] Feb, [facility] [address] [facility] [id number] [place] [address] Jan, [facility] [address] [id number] [address] Jan, IMMUNIZATIONS No Known Immunizations SOCIAL HISTORY [...]
--- OUTSIDE RECORDS SUMMARY | 2018-11-10 16:07 | XMS REPORT ---
Author Author Migration, Doctor Organization [facility] Address Unknown Phone Unavailable Care Team Providers Care Manager Editorial Name Role Phone Migration, Doctor Unavailable Unavailable PROBLEMS Type Condition ICD9-CM Code PBU84-HE Code Onset Dates Condition Status SNOMED Code Problem CAD (coronary artery disease) I25.10 Active 56907306 Problem Osteoarthritis of knees, bilateral M17.0 Active 403518679 Problem Essential hypertension I10 Active 11204499 Problem Diabetes E11.9 Active 29790884 Problem Arthritis M19.90 Active 8046820 Problem Morbid obesity E66.01 Active 635121253 Problem Hyperlipemia E78.5 Active 54412274 ALLERGIES No Information ENCOUNTERS Encounter Location Date Diagnosis [place] [address] [address] Sep, [place] [address] [address] Jul, [place] [address] [address] Apr, [facility], [place] [address] [address] Mar, Pustular lesion L08.9 and Encounter for immunization Z23 [place] [address] [place] [id number] [place] [address] Feb, [place] [address] [address] Dec, [place] [address] [address] Dec, [place] [address] [address] Dec, Diabetes E11.9 ; Essential hypertension I10 ; Arthritis M19.90 ; Urinary frequency R35.0 ; Routine adult health maintenance Z00.00 and BMI 45.0- 49.9, adult Z68.42 [place] [address] [place] [id number] [place] [address] 18 Dec, 2017 [facility], [place] [address] [place] [id number] [place] [address] Dec, [place] [address] [place] [id number] [place] [address] Oct, [place] [address] [place] [id number] [place] [address] Sep, Diabetes E11.9 [place] [address] [address] Sep, Diabetes E11.9 ; Hyperlipemia E78.5 ; CAD (coronary artery disease) I25.10 ; Essential hypertension I10 and BMI 45.0-49.9, adult Z68.42 [place] [address] [place] [id number] [place] [address] Sep, [place] [address] [place] [id number] [place] [address] August, [place] [address] [place] [id number] [place] [address] Jan, Dysuria R30.0 [place] [address] [place] [id number] [place] [address] Jan, Dysuria R30.0 [place] [address] [place] [id number] [place] [address] Jan, Osteoarthritis of knees, bilateral M17.0 [place] [address] [address] Nov, Dysuria R30.0 [place] [address] [place] [id number] [place] [address] Oct, Blood in urine R31.9 ; Dysuria R30.0 ; Pharyngeal dysphagia R13.13 ; Acute cystitis with hematuria N30.01 ; CAD (coronary artery disease) I25.10 and Diabetes E11.9 [facility], [place] [address] [place] [id number] [place] [address] Oct, [facility], [place] [address] [place] [id number] [place] [address] Sep, Arthritis M19.90 ; Blood in urine R31.9 ; Diabetes E11.9 ; Acute cystitis with hematuria N30.01 and Pharyngoesophageal dysphagia R13.14 [facility], [place] [address] [place] [id number] [place] [address] Sep, Osteoarthritis of knees, bilateral M17.0 [facility], [place] [address] [place] [id number] [place] [address] Sep, Osteoarthritis of knees, bilateral M17.0 [facility], [place] [address] [place] [id number] [place] [address] August, Arthritis M19.90 [facility], [place] [address] [place] [id number] [place] [address] Jul, Arthritis M19.90 [facility], [place] [address] [place] [id number] [place] [address] Jun, Arthritis M19.90 [facility], [place] [address] [place] [id number] [place] [address] Jun, [facility], [place] [address] [place] [id number] [place] [address] Jun, [facility], [place] [address] [place] [id number] [place] [address] May, Diabetes E11.9 ; Dysuria R30.0 and Arthritis M19.90 [facility], [place] [address] [place] [id number] [place] [address] Apr, [facility], [place] [address] [place] [id number] [place] [address] Apr, Arthritis M19.90 [facility], [place] [address] [address] Mar, Arthritis M19.90 [facility], [place] [id number] [place] [address] Feb, [facility], [place] [address] [place] [id number] [place] [address] Jan, [facility], [place] [address] [place] [id number] [place] [address] Dec, Diabetes E11.9 and Arthritis M19.90 [facility], [place] [address] [place] [id number] [place] [address] Dec, [facility], [place] [address] [place] [id number] [place] [address] Nov, Arthritis M19.90 [facility], [place] [address] [place] [id number] [place] [address] Nov, [facility], [place] [id number] [place] [address] Oct, Arthritis M19.90 [facility], [place] [id number] [place] [address] Sep, Osteoarthritis of knees, bilateral M17.0 [facility], [place] [id number] [place] [address] Sep, Osteoarthritis of knees, bilateral M17.0 [facility], [place] [id number] [place] [address] August, Arthritis M19.90 [facility], [place] [address] [place] [id number] [place] [address] August, [facility], [place] [id number] [place] [address] Jul, Hyperlipemia E78.5 [facility], [place] [address] [place] [id number] [place] [address] Jul, Encounter for well woman exam Z01.419 ; Morbid obesity E66.01 ; Encounter for screening for malignant neoplasm of cervix Z12.4 and Encounter for screening mammogram for breast cancer Z12.31 [facility], [place] [address] [address] Jul, Arthritis M19.90 ; Diabetes E11.9 ; Blood in urine R31.9 and UTI (urinary tract infection) N39.0 [facility], [place] [address] [address] Jul, [place] [id number] [place] [address] Jun, Arthritis M19.90 [place] [address], [place] [address] May, Arthritis M19.90 [place] [address] [address] May, [facility], [place] [address] [address] Apr, [place] [address], [place] [address] Apr, Arthritis M19.90 ; Diabetes E11.9 and Morbid obesity E66.01 [place] [address], [place] [address] Apr, [facility], [place] [address] [address] Apr, Dyspareunia N94.1 [place] [address] [address] Apr, [place] [address] [place] [address] Apr, [place] [address] [place] [address] Apr, Osteoarthritis of knees, bilateral M17.0 [facility], [place] [address] [place] [id number] [place] [address] Apr, Diabetes E11.9 and CAD (coronary artery disease) I25.10 [facility], [place] [address] [place] [id number] [place] [address] Mar, [facility], [place] [address] [address] Feb, [facility], [place] [address] [place] [id number] [place] [address] Jan, [facility], [place] [address] [place] [id number] [place] [address] Jan, [facility], [place] [address] [place] [id number] [place] [address] Jan, [facility], [place] [address] [place] [id number] [place] [address] Jan, Osteoarthritis of knees, bilateral M17.0 [facility], [place] [address] [place] [id number] [place] [address] Dec, [facility], [place] [address] [place] [id number] [place] [address] Dec, [facility], [place] [address] [place] [id number] [place] [address] Dec, [facility], [place] [address] [place] [id number] [place] [address] Dec, Diabetes mellitus 250.00 and UTI (urinary tract infection) 599.0 [facility], [place] [address] [place] [id number] [place] [address] Dec, [facility], [place] [address] [place] [id number] [place] [address] Nov, [facility], [place] [address] [place] [id number] [place] [address] Oct, [facility] [place] [facility] [address] [id number] [place] [address] Oct, [facility] [place] [facility] [address] [id number] [place] [address] Oct, [facility] [place] [facility] [address] [id number] [place] [address] Oct, [facility] [place] [facility] [address] [id number] [place] [address] Oct, [facility] [place] [facility] [address] [id number] [place] [address] Sep, [facility] [place] [facility] [address] [id number] [place] [address] August, [facility] [place] [facility] [address] [id number] [place] [address] August, [facility] [place] [facility] [address] [id number] [place] [address] August, [facility] [place] [facility] [address] [id number] [place] [address] Jul, [facility] [place] [facility] [address] [id number] [place] [address] Jul, [facility] [place] [facility] [address] [id number] [place] [address] Jul, [facility] [place] [facility] [address] [id number] [place] [address] Jun, [facility] [place] [facility] [address] [id number] [place] [address] Jun, [facility] [place] [facility] [address] [id number] [place] [address] Jun, [facility] [place] [facility] [address] [id number] [place] [address] Jun, [facility] [place] [facility] [address] [id number] [place] [address] Jun, [facility] [place] [facility] [address] [id number] [place] [address] Jun, 2014 [facility] [place] [facility] [address] [id number] [place] [address] Jun, 2014 [facility] [place] [facility] [address] [facility] [id number] [place] [address] Jun, [facility] [place] [facility] [address] [id number] [place] [address] May, 2014 [facility] [place] [facility] [address] [id number] [place] [address] May, 2014 [facility] [place] [facility] [address] [facility] [id number] [place] [address] May, 2014 [facility] [place] [facility] [address] [facility] [id number] [place] [address] May, 2014 [facility] [place] [facility] [address] [facility] [id number] [place] [address] May, 2014 [facility] [place] [facility] [address] [facility] [id number] [place] [address] May, 2014 [facility] [place] [facility] [address] [facility] [id number] [place] [address] May, 2014 [facility] [place] [facility] [address] [facility] [id number] [place] [address] May, 2014 [facility] [place] [facility] [address] [facility] [id number] [place] [address] May, 2014 [facility] [place] [facility] [address] [facility] [id number] [place] [address] May, 2014 [facility] [place] [facility] [address] [facility] [id number] [place] [address] May, 2014 [facility] [place] [facility] [address] [facility] [id number] [place] [address] May, [facility] [place] [facility] [address] [id number] [place] [address] Apr, [facility] [place] [facility] [address] [id number] [place] [address] Apr, [facility] [place] [facility] [address] [id number] [place] [address] Mar, [facility] [place] [facility] [address] [id number] [place] [address] Mar, [facility] [place] [facility] [address] [id number] [place] [address] Mar, [facility] [place] [facility] [address] [id number] [place] [address] Mar, [facility] [place] [facility] [address] [id number] [place] [address] Mar, [facility] [place] [facility] [address] [id number] [place] [address] Mar, [facility] [place] [facility] [address] [id number] [place] [address] Feb, [facility] [place] [facility] [address] [id number] [place] [address] Feb, [facility] [place] [facility] [address] [id number] [place] [address] Feb, [facility] [place] [facility] [address] [id number], [place] [address] Feb, [facility] [place] [facility] [address] [id number] [place] [address] Feb, [facility] [place] [facility] [address] [id number] [place] [address] Feb, [facility] [place] [facility] [address] [id number] [place] [address] Feb, [facility] [place] [facility] [address] [id number] [place] [address] Feb, [facility] [place] [facility] [address] [id number] [place] [address] Feb, [facility] [place] [facility] [address] [id number] [place] [address] Jan, [facility] [place] [facility] [address] [id number] [place] [address] Jan, [facility] [place] [facility] [address] [id number] [place] [address] Jan, [facility] [place] [facility] [address] [id number] [place] [address] Jan, [facility] [place] [facility] [address] [id number] [place] [address] Jan, [facility] [place] [facility] [address] [id number] [place] [address] Jan, [facility] [place] [facility] [address] [id number] [place] [address] Jan, [facility] [place] [facility] [address] [id number] [place] [address] Jan, [facility] [place] [facility] [address] [id number] [place] [address] Jan, [facility] [place] [facility] [address] [id number] [place] [address] Jan, [facility] [place] [facility] [address] [id number], [place] [address] 19 Dec, 2013 [facility] [place] [facility] [address] [id number] [place] [address] 19 Dec, 2013 [facility] [place] [facility] [address] [id number] [place] [address] 10 Dec, 2013 [facility] [place] [facility] [address] [id number] [place] [address] Dec, [facility] [place] [facility] [address] [id number] [place] [address] Nov, [facility] [place] [facility] [address] [id number] [place] [address] Nov, [facility] [place] [facility] [address] [id number] [place] [address] Nov, [facility] [place] [facility] [address] [id number] [place] [address] Nov, [facility] [place] [facility] [address] [id number] [place] [address] Nov, [facility] [place] [facility] [address] [id number] [place] [address] Nov, [facility] [place] [facility] [address] [id number] [place] [address] Nov, [facility] [place] [facility] [address] [id number] [place] [address] Nov, [facility] [place] [facility] [address] [id number] [place] [address] Nov, [facility] [place] [facility] [address] [id number] [place] [address] Oct, [facility] [place] [facility] [address] [id number] [place] [address] Oct, [facility] [place] [facility] [address] [id number] [place] [address] Sep, [facility] [place] [facility] [address] [id number] [place] [address] Sep, [facility] [place] [facility] [address] [id number] [place] [address] Sep, [facility] [place] [facility] [address] [id number] [place] [address] Sep, [facility] [place] [facility] [address] [id number] [place] [address] Sep, [facility] [place] [facility] [address] [id number] [place] [address] Sep, [facility] [place] [facility] [address] [id number] [place] [address] Sep, [facility] [place] [facility] [address] [id number] [place] [address] Sep, [facility] [place] [facility] [address] [id number] [place] [address] Sep, [facility] [place] [facility] [address] [id number] [place] [address] Sep, [facility] [place] [facility] [address] [id number] [place] [address] Sep, [facility] [place] [facility] [address] [id number] [place] [address] Sep, [facility] [place] [facility] [address] [id number] [place] [address] Sep, [facility] [place] [facility] [address] [id number] [place] [address] Sep, [facility] [place] [facility] [address] [id number] [place] [address] August, [facility] [place] [facility] [address] [id number] [place] [address] August, [facility] [place] [facility] [address] [id number] [place] [address] August, [facility] [place] [facility] [address] [id number] [place] [address] August, [facility] [place] [facility] [address] [id number] [place] [address] Jul, [facility] [place] [facility] [address] [id number] [place] [address] Jul, [facility] [place] [facility] [address] [id number] [place] [address] Jul, [facility] [place] [facility] [address] [id number] [place] [address] Jul, [facility] [place] [facility] [address] [id number] [place] [address] Jun, [facility] [place] [facility] [address] [id number] [place] [address] Jun, [facility] [place] [facility] [address] [id number] [place] [address] May, [facility] [place] [facility] [address] [id number] [place] [address] May, [facility] [place] [facility] [address] [id number] [place] [address] May, [facility] [place] [facility] [address] [id number] [place] [address] May, [facility] [place] [facility] [address] [id number] [place] [address] May, [facility] [place] [facility] [address] [id number] [place] [address] May, [facility] [place] [facility] [address] [id number] [place] [address] May, [facility] [place] [facility] [address] [id number] [place] [address] May, [facility] [place] [facility] [address] [id number] [place] [address] May, [facility] [place] [facility] [address] [id number] [place] [address] Apr, [facility] [place] [facility] [address] [id number] [place] [address] Apr, [facility] [place] [facility] [address] [id number], [place] [address] Apr, [facility] [address] [id number] [place] [address] Apr, [facility] [place] [facility] [address] [id number] [place] [address] Apr, [facility] [place] [facility] [address] [id number] [place] [address] Mar, [facility] [place] [facility] [address] [id number] [place] [address] Mar, [facility] [place] [facility] [address] [id number] [place] [address] Feb, [facility] [place] [facility] [address] [id number] [place] [address] Feb, [facility] [place] [facility] [address] [id number] [place] [address] Feb, [facility] [place] [facility] [address] [id number] [place] [address] Feb, [facility] [place] [facility] [address] [id number], [place] [address] Feb, [facility] [place] [facility] [address] [id number] [place] [address] Feb, [facility] [place] [facility] [address] [id number], [place] [address] Feb, [facility] [place] [facility] [address] [id number], [place] [address] Feb, [facility] [place] [facility] [address] [id number], [place] [address] Feb, [facility] [place] [facility] [address] [id number], [place] [address] Jan, [facility] [place] [facility] [address] [id number] [place] [address] Jan, [facility] [place] [facility] [address] [id number] [place] [address] Jan, [facility] [address] [id number] [place] [address] Jan, [facility] [place] [facility] [address] [id number] [place] [address] Jan, [facility] [address] [id number] [place] [address] Dec, [facility] [address] [id number] [place] [address] Dec, [facility] [address] [id number] [place] [address] Nov, [facility] [address] [id number] [place] [address] Nov, [facility] [address] [id number] [place] [address] Oct, [facility] [address] [id number] [place] [address] Oct, [facility] [address] [id number] [place] [address] Oct, [facility] [address] [id number] [place] [address] Sep, [facility] [address] [id number] [place] [address] Sep, [facility] [address] [id number] [place] [address] Sep, [facility] [place] [facility] [address] [id number] [place] [address] August, [facility] [place] [facility] [address] [id number] [place] [address] August, [facility] [address] [id number] [place] [address] August, [facility] [address] [id number] [place] [address] August, [facility] [address] [id number] [place] [address] Jul, [facility] [address] [id number] [place] [address] Jun, [facility] [place] [facility] [address] [id number] [place] [address] Jun, [facility] [address] [id number] [place] [address] Jun, [facility] [place] [facility] [address] [id number] [place] [address] May, [facility] [address] [id number] [place] [address] May, [facility] [address] [id number] [place] [address] May, [facility] [address] [id number] [place] [address] May, [facility] [address] [id number] [place] [address] Apr, [facility] [address] [id number] [place] [address] Apr, [facility] [place] [facility] [address] [id number] [place] [address] 15 Apr, 2012 [facility] [place] [facility] [address] [id number] [place] [address] Apr, [facility] [place] [facility] [address] [id number] [place] [address] Apr, [facility] [place] [facility] [address] [id number] [place] [address] Mar, [facility] [place] [facility] [address] [id number] [place] [address] Mar, [facility] [place] [facility] [address] [id number] [place] [address] Mar, [facility] [place] [facility] [address] [id number] [place] [address] Mar, [facility] [place] [facility] [address] [id number] [place] [id number] Mar, [facility] [place] [facility] [address] [id number] [place] [address] Mar, [facility] [place] [facility] [address] [id number] [place] [address] Mar, [facility] [place] [facility] [address] [id number] [place] [address] Feb, [facility] [place] [facility] [address] [id number] [place] [address] Feb, [facility] [place] [facility] [address] [id number] [place] [address] Feb, [facility] [place] [facility] [address] [id number] [place] [address] Feb, [facility] [place] [facility] [address] [facility] [id number] [place] [address] Feb, [facility] [place] [facility] [address] [id number] [place] [address] Feb, [facility] [place] [facility] [address] [id number] [place] [address] Feb, [facility] [place] [facility] [address] [id number] [place] [address] Feb, [facility] [place] [facility] [address] [facility] [id number] [place] [address] Jan, [facility] [place] [facility] [address] [id number] [place] [address] Jan, [facility] [place] [facility] [address] [id number] [place] [address] Jan, [facility] [place] [facility] [address] [id number] [place] [address] Jan, [facility] [place] [facility] [address] [id number] [place] [address] 27 Dec, 2011 [facility] [place] [facility] [address] [id number] [place] [address] 25 Dec, 2011 [facility] [address] [id number] [place] [address] 18 Dec, 2011 [facility] [place] [facility] [address] [id number] [place] [address] 13 Dec, 2011 [facility] [address] [id number] [place] [address] Dec, [facility] [place] [facility] [address] [id number] [place] [address] Oct, [facility] [place] [facility] [address] [id number] [place] [address] Oct, [facility] [place] [facility] [address] [id number] [place] [address] Sep, [facility] [place] [facility] [address] [id number] [place] [address] Sep, [facility] [place] [facility] [address] [id number] [place] [address] August, [facility] [place] [facility] [address] [id number] [place] [address] August, [facility] [place] [facility] [address] [id number] [place] [address] Jul, [facility] [place] [facility] [address] [id number] [place] [address] Jun, [facility] [place] [facility] [address] [id number] [place] [address] 23 Jun, 2011 [facility] [address] [id number] [place] [address] Jun, [facility] [place] [facility] [address] [id number] [place] [address] Jun, [facility] [address] [id number] [place] [address] Jun, [facility] [address] [id number] [place] [address] 24 May, 2011 [facility] [address] [id number] [place] [address] May, [facility] [place] [facility] [address] [id number] [place] [address] 20 May, 2011 [facility] [address] [id number] [place] [address] 14 May, 2011 [facility] [address] [id number] [place] [address] 13 May, 2011 [facility] [address] [id number] [place] [address] 03 May, 2011 [facility] [address] [id number] [place] [address] 02 May, 2011 [facility] [address] [id number] [place] [address] May, [facility] [address] [id number] [place] [address] Apr, [facility] [place] [facility] [address] [id number] [place] [address] Mar, [facility] [place] [facility] [address] [id number] [place] [address] Mar, [facility] [address] [id number] [place] [address] Mar, [facility] [place] [address] [id number] [address] 15 Mar, 2011 [facility] [place] [id number] [place] [address] Mar, [facility] [place] [address] [id number] [address] Jan, [facility] [place] [id number] [place] [address] Jan, [facility] [place] [address] [id number] [address] Jan, [facility] [place] [id number] [place] [address] August, [facility] [place] [id number] [place] [address] Mar, [facility] [place] [id number] [place] [address] Feb, [facility] [place] [address] [id number] [address] Jan, [facility] [place] [address] [id number] [address] Jan, IMMUNIZATIONS No Known Immunizations SOCIAL HISTORY Never Assessed REASON FOR VISIT PLAN OF CARE VITAL SIGNS Height 66 in 2014-06-12 Weight 340 lbs 2014-06-12 Temperature 97.8 degrees Fahrenheit 2014-06-12 Heart Rate 80 bpm 2014-06-12 Respiratory Rate 18 2014-06-12 Blood pressure systolic 130 mmHg 2014-06-12 Blood pressure diastolic 88 mmHg 2014-06-12 MEDICATIONS Unknown Medications RESULTS No Results PROCEDURES Procedure Date Ordered Result Body Site GLYCATED HEMOGLOBIN TEST Jun 12, 2014 BASIC METABOLIC PANEL Jun 12, 2014 DRAIN/INJECT, JOINT/BURSA Jun 12, 2014 VENIPUNCT, ROUTINE* Jun 12, 2014 INSTRUCTIONS MEDICATIONS ADMINISTERED No Known Medications MEDICAL (GENERAL) HISTORY Type Description Date Medical History diabetes mellitus Medical History morbid obesity Medical History hypertension Medical History chronic pain Medical History Anxiety disorder Surgical History cholecystectomy Surgical History x 2 Hospitalization History surgeries Hospitalization History labor and delivery
--- OUTSIDE RECORDS SUMMARY | 2018-11-10 16:08 | XMS REPORT ---
Author Author KATIE HUDSON Organization [facility] Address [address] [place] [address] Care Team Providers Care Site Administrator Name Role Phone KATIE HUDSON Unavailable PROBLEMS Type Condition ICD9-CM Code QCD92-VY Code Onset Dates Condition Status SNOMED Code Problem CAD (coronary artery disease) I25.10 Active 60308581 Problem Osteoarthritis of knees, bilateral M17.0 Active 873834434 Problem Essential hypertension I10 Active 93621111 Problem Diabetes E11.9 Active 87475227 Problem Arthritis M19.90 Active 7921989 Problem Morbid obesity E66.01 Active 402474782 Problem Hyperlipemia E78.5 Active 28805606 ALLERGIES No Information ENCOUNTERS Encounter Location Date Diagnosis [facility] [address] [address] Sep, [facility] [address] [address] Jul, [facility] [address] [address] Apr, [facility] [id number] [place] [address] Mar, Pustular lesion L08.9 and Encounter for immunization Z23 [facility] [id number] [place] [address] Feb, [facility] [address] [address] Dec, [facility] [address] [address] Dec, [facility] [address] [address] Dec, Diabetes E11.9 ; Essential hypertension I10 ; Arthritis M19.90 ; Urinary frequency R35.0 ; Routine adult health maintenance Z00.00 and BMI 45.0- 49.9, adult Z68.42 [facility] [id number] [place] [address] 18 Dec, 2017 [facility] [id number] [place] [address] Dec, [facility] [id number] [place] [address] Oct, [facility] [id number] [place] [address] Sep, Diabetes E11.9 [facility] [id number] [place] [address] Sep, Diabetes E11.9 ; Hyperlipemia E78.5 ; CAD (coronary artery disease) I25.10 ; Essential hypertension I10 and BMI 45.0-49.9, adult Z68.42 [facility] [id number] [place] [address] Sep, [facility] [id number] [place] [address] August, [facility] [id number] [place] [address] Jan, Dysuria R30.0 [facility] [id number] [place] [address] Jan, Dysuria R30.0 [facility] [id number] [place] [address] Jan, Osteoarthritis of knees, bilateral M17.0 [facility] [id number] [place] [address] Nov, Dysuria R30.0 [facility] [id number] [place] [address] Oct, Blood in urine R31.9 ; Dysuria R30.0 ; Pharyngeal dysphagia R13.13 ; Acute cystitis with hematuria N30.01 ; CAD (coronary artery disease) I25.10 and Diabetes E11.9 [facility] [id number] [place] [address] Oct, [facility] [id number] [place] [address] Sep, Arthritis M19.90 ; Blood in urine R31.9 ; Diabetes E11.9 ; Acute cystitis with hematuria N30.01 and Pharyngoesophageal dysphagia R13.14 [place] [id number] [place] [address] Sep, Osteoarthritis of knees, bilateral M17.0 [place] [id number] [place] [address] Sep, Osteoarthritis of knees, bilateral M17.0 [place] [id number] [place] [address] August, Arthritis M19.90 [place] [id number] [place] [address] Jul, Arthritis M19.90 [facility] [id number] [place] [address] Jun, Arthritis M19.90 [facility] [id number] [place] [address] Jun, [facility] [id number] [place] [address] Jun, [facility] [id number] [place] [address] May, Diabetes E11.9 ; Dysuria R30.0 and Arthritis M19.90 [facility] [id number] [place] [address] Apr, [facility] [address] [facility] [id number] [address] Apr, Arthritis M19.90 [facility] [id number] [place] [address] Mar, Arthritis M19.90 [facility] [id number] [address] Feb, [facility] [id number] [place] [address] Jan, [facility] [id number] [place] [address] Dec, Diabetes E11.9 and Arthritis M19.90 [facility] [address] [place] [address], [place] [address] Dec, [facility] [id number] [place] [address] Nov, Arthritis M19.90 [facility] [address] [address] Nov, [facility] [address] [address] Oct, Arthritis M19.90 [facility] [address] [address] Sep, Osteoarthritis of knees, bilateral M17.0 [facility] [id number] [address] Sep, Osteoarthritis of knees, bilateral M17.0 [facility] [id number] [address] August, Arthritis M19.90 [facility] [id number] [address] August, [facility] [id number] [address] Jul, Hyperlipemia E78.5 [facility] [address] [address] Jul, Encounter for well woman exam Z01.419 ; Morbid obesity E66.01 ; Encounter for screening for malignant neoplasm of cervix Z12.4 and Encounter for screening mammogram for breast cancer Z12.31 [facility] [address] [address] Jul, Arthritis M19.90 ; Diabetes E11.9 ; Blood in urine R31.9 and UTI (urinary tract infection) N39.0 [facility] [address] [address] Jul, [facility] [id number] [address] Jun, Arthritis M19.90 [facility] [id number] [address] May, Arthritis M19.90 [facility] [address] [address] May, [facility] [address] [address] Apr, [facility] [address] [address] Apr, Arthritis M19.90 ; Diabetes E11.9 and Morbid obesity E66.01 [facility] [address] [address] Apr, [facility] [address] [address] Apr, Dyspareunia N94.1 [facility] [address] [address] Apr, [facility] [address] [address] Apr, [facility] [address] [address] Apr, Osteoarthritis of knees, bilateral M17.0 [facility] [id number] [place] [address] Apr, Diabetes E11.9 and CAD (coronary artery disease) I25.10 [facility] [address] [place] [address] Mar, [facility] [id number] [place] [address] Feb, [facility] [id number] [place] [address] Jan, [facility] [id number] [place] [address] Jan, [facility] [id number] [place] [address] Jan, [facility] [id number] [place] [address] Jan, Osteoarthritis of knees, bilateral M17.0 [facility] [address] [address] 30 Dec, 2014 [facility] [address] [address] 17 Dec, 2014 [facility] [address] [place] [address] Dec, [facility] [address] [address] 08 Dec, 2014 Diabetes mellitus 250.00 and UTI (urinary tract infection) 599.0 [facility] [address] [address] Dec, [facility] [address] [address] Nov, [facility] [place] [facility] [address] [id number] [place] [address] Oct, [facility] [place] [facility] [address] [id number] [place] [address] Oct, [facility] [place] [facility] [address] [id number] [place] [address] Oct, [facility] [place] [facility] [address] [id number] [place] [address] Oct, [facility] [place] [facility] [address] [id number] [place] [address] Oct, [facility] [place] [facility] [address] [id number] [place] [address] Sep, [facility] [place] [facility] [address] [id number] [place] [address] August, [facility] [place] [facility] [address] [id number] [place] [address] August, [facility] [place] [facility] [address] [id number] [place] [address] August, [facility] [place] [facility] [address] [id number] [place] [address] Jul, [facility] [place] [facility] [address] [id number] [place] [address] Jul, [facility] [place] [facility] [address] [id number] [place] [address] Jul, [facility] [place] [facility] [address] [id number] [place] [address] Jun, [facility] [place] [facility] [address] [id number] [place] [address] Jun, [facility] [place] [facility] [address] [id number] [place] [address] Jun, [facility] [place] [facility] [address] [id number] [place] [address] Jun, [facility] [place] [facility] [address] [id number] [place] [address] Jun, [facility] [place] [facility] [address] [facility] [id number] [place] [address] Jun, [facility] [place] [facility] [address] [facility] [id number] [place] [address] Jun, [facility] [place] [facility] [address] [facility] [id number] [place] [address] Jun, [facility] [place] [facility] [address] [facility] [id number] [place] [address] May, [facility] [place] [facility] [address] [facility] [id number] [place] [address] May, 2014 [facility] [place] [facility] [address] [facility] [id number] [place] [address] May, 2014 [facility] [place] [facility] [address] [facility] [id number] [place] [address] May, 2014 [facility] [place] [facility] [address] [facility] [id number] [place] [address] May, 2014 [facility] [place] [facility] [address] [facility] [id number] [place] [address] May, 2014 [facility] [place] [facility] [address] [facility] [id number] [place] [address] May, 2014 [facility] [place] [facility] [address] [facility] [id number], [place] [address] May, 2014 [facility] [place] [facility] [address] [facility] [id number] [place] [address] May, 2014 [facility] [place] [facility] [address] [facility] [id number] [address] May, 2014 [facility] [place] [facility] [address] [facility] [id number] [address] May, [facility] [place] [facility] [address] [id number] [place] [address] May, [facility] [place] [facility] [address] [id number] [place] [address] Apr, [facility] [place] [facility] [address] [id number] [place] [address] Apr, [facility] [place] [facility] [address] [id number] [place] [address] Mar, [facility] [place] [facility] [address] [id number] [place] [address] Mar, [facility] [place] [facility] [address] [id number] [place] [address] Mar, [facility] [place] [facility] [address] [id number] [place] [address] Mar, [facility] [place] [facility] [address] [id number] [place] [address] Mar, [facility] [place] [facility] [address] [id number] [place] [address] Mar, [facility] [place] [facility] [address] [id number] [place] [address] Feb, [facility] [place] [facility] [address] [id number] [place] [address] Feb, [facility] [place] [facility] [address] [id number] [place] [address] Feb, [facility] [place] [facility] [address] [id number] [place] [address] Feb, [facility] [place] [facility] [address] [id number] [place] [address] Feb, [facility] [place] [facility] [address] [id number] [place] [address] Feb, [facility] [place] [facility] [address] [id number], [place] [address] Feb, [facility] [place] [facility] [address] [id number] [place] [address] Feb, [facility] [place] [facility] [address] [id number] [place] [address] Feb, [facility] [place] [facility] [address] [id number] [place] [address] Jan, [facility] [place] [facility] [address] [id number] [place] [address] Jan, [facility] [place] [facility] [address] [id number] [place] [address] Jan, [facility] [place] [facility] [address] [id number] [place] [address] Jan, [facility] [place] [facility] [address] [id number] [place] [address] Jan, [facility] [place] [facility] [address] [id number] [place] [address] Jan, [facility] [place] [facility] [address] [id number] [place] [address] Jan, [facility] [place] [facility] [address] [id number] [place] [address] Jan, [facility] [place] [facility] [address] [id number], [place] [address] Jan, [facility] [place] [facility] [address] [id number], [place] [address] Jan, [facility] [place] [facility] [address] [id number] [place] [address] 19 Dec, 2013 [facility] [place] [facility] [address] [id number] [place] [address] 19 Dec, 2013 [facility] [place] [facility] [address] [id number] [place] [address] 10 Dec, 2013 [facility] [place] [facility] [address] [id number] [place] [address] Dec, [facility] [place] [facility] [address] [id number] [place] [address] Nov, [facility] [place] [facility] [address] [id number] [place] [address] Nov, [facility] [place] [facility] [address] [id number] [place] [address] Nov, [facility] [place] [facility] [address] [id number] [place] [address] Nov, [facility] [place] [facility] [address] [id number] [place] [address] Nov, [facility] [place] [facility] [address] [id number] [place] [address] Nov, [facility] [place] [facility] [address] [id number] [place] [address] Nov, [facility] [place] [facility] [address] [id number] [place] [address] Nov, [facility] [place] [facility] [address] [id number] [place] [address] Nov, [facility] [place] [facility] [address] [id number] [place] [address] Oct, [facility] [place] [facility] [address] [id number] [place] [address] Oct, [facility] [place] [facility] [address] [id number] [place] [address] Sep, [facility] [place] [facility] [address] [id number] [place] [address] Sep, [facility] [place] [facility] [address] [id number] [place] [address] Sep, [facility] [place] [facility] [address] [id number] [place] [address] Sep, [facility] [place] [facility] [address] [id number] [place] [address] Sep, [facility] [place] [facility] [address] [id number] [place] [address] Sep, [facility] [place] [facility] [address] [id number] [place] [address] Sep, [facility] [place] [facility] [address] [id number] [place] [address] Sep, [facility] [place] [facility] [address] [id number] [place] [address] Sep, [facility] [place] [facility] [address] [id number] [place] [address] Sep, [facility] [place] [facility] [address] [id number] [place] [address] Sep, [facility] [place] [facility] [address] [id number] [place] [address] Sep, [facility] [place] [facility] [address] [id number] [place] [address] Sep, [facility] [place] [facility] [address] [id number] [place] [address] Sep, [facility] [place] [facility] [address] [id number] [place] [address] August, [facility] [place] [facility] [address] [id number] [place] [address] August, [facility] [place] [facility] [address] [id number] [place] [address] August, [facility] [place] [facility] [address] [id number] [place] [address] August, [facility] [place] [facility] [address] [id number] [place] [address] Jul, [facility] [place] [facility] [address] [id number] [place] [address] Jul, [facility] [place] [facility] [address] [id number] [place] [address] Jul, [facility] [place] [facility] [address] [id number] [place] [address] Jul, [facility] [place] [facility] [address] [id number] [place] [address] Jun, [facility] [place] [facility] [address] [id number] [place] [address] Jun, [facility] [place] [facility] [address] [id number] [place] [address] May, [facility] [place] [facility] [address] [id number] [place] [address] May, [facility] [place] [facility] [address] [id number] [place] [address] May, [facility] [place] [facility] [address] [id number] [place] [address] May, [facility] [place] [facility] [address] [id number] [place] [address] May, [facility] [place] [facility] [address] [id number] [place] [address] May, [facility] [place] [facility] [address] [id number] [place] [address] May, [facility] [place] [facility] [address] [id number] [place] [address] May, [facility] [place] [facility] [address] [id number] [place] [address] May, [facility] [place] [facility] [address] [id number] [place] [address] Apr, [facility] [place] [facility] [address] [id number] [place] [address] Apr, [facility] [place] [facility] [address] [id number] [place] [address] Apr, [facility] [place] [facility] [address] [id number] [place] [address] Apr, [facility] [place] [facility] [address] [id number] [place] [address] Apr, [facility] [place] [facility] [address] [id number] [place] [address] Mar, [facility] [place] [facility] [address] [id number] [place] [address] Mar, [facility] [place] [facility] [address] [id number] [place] [address] Feb, [facility] [place] [facility] [address] [id number] [place] [address] Feb, [facility] [place] [facility] [address] [id number] [place] [address] Feb, [facility] [place] [facility] [address] [id number] [place] [address] Feb, [facility] [place] [facility] [address] [id number], [place] [address] Feb, [facility] [place] [facility] [address] [id number], [place] [address] Feb, [facility] [place] [facility] [address] [id number], [place] [address] Feb, [facility] [place] [facility] [address] [id number] [place] [address] Feb, [facility] [place] [facility] [address] [id number], [place] [address] Feb, [facility] [place] [facility] [address] [id number], [place] [address] Jan, [facility] [place] [facility] [address] [id number] [place] [address] Jan, [facility] [address] [id number] [place] [address] Jan, [facility] [place] [facility] [address] [id number] [place] [address] Jan, [facility] [place] [facility] [address] [id number] [place] [address] Jan, [facility] [place] [facility] [address] [id number] [place] [address] Dec, [facility] [place] [facility] [address] [id number] [place] [address] Dec, [facility] [place] [facility] [address] [id number] [place] [address] Nov, [facility] [place] [facility] [address] [id number] [place] [address] Nov, [facility] [place] [facility] [address] [id number] [place] [address] Oct, [facility] [place] [facility] [address] [id number] [place] [address] Oct, [facility] [place] [facility] [address] [id number] [place] [address] Oct, [facility] [place] [facility] [address] [id number] [place] [address] Sep, [facility] [place] [facility] [address] [id number] [place] [address] Sep, [facility] [place] [facility] [address] [id number] [place] [address] Sep, [facility] [place] [facility] [address] [id number] [place] [address] August, [facility] [place] [facility] [address] [id number] [place] [address] August, [facility] [place] [facility] [address] [id number] [place] [address] August, [facility] [address] [id number] [place] [address] August, [facility] [place] [facility] [address] [id number] [place] [address] Jul, [facility] [place] [facility] [address] [id number] [place] [address] Jun, [facility] [place] [facility] [address] [id number] [place] [address] Jun, [facility] [place] [facility] [address] [id number] [place] [address] Jun, [facility] [address] [id number] [place] [address] May, [facility] [address] [id number] [place] [address] May, [facility] [place] [facility] [address] [id number] [place] [address] May, [facility] [address] [id number] [place] [address] May, [facility] [place] [facility] [address] [id number] [place] [address] Apr, [facility] [place] [facility] [address] [id number] [place] [address] Apr, [facility] [place] [facility] [address] [id number] [place] [address] Apr, [facility] [place] [facility] [address] [id number] [place] [address] 14 Apr, 2012 [facility] [place] [facility] [address] [id number] [place] [address] Apr, [facility] [place] [facility] [address] [id number], [place] [address] Mar, [facility] [place] [facility] [address] [id number] [place] [address] Mar, [facility] [place] [facility] [address] [id number] [place] [address] Mar, [facility] [place] [facility] [address] [facility] [id number] [place] [address] Mar, [facility] [place] [facility] [address] [id number] [place] [address] Mar, [facility] [facility] [address] [id number] [place] [address] Mar, [facility] [place] [facility] [address] [id number] [place] [address] Mar, [facility] [place] [facility] [address] [id number] [place] [address] Feb, [facility] [place] [facility] [address] [id number] [place] [address] Feb, [facility] [place] [facility] [address] [facility] [id number] [place] [address] Feb, [facility] [place] [facility] [address] [facility] [id number] [place] [address] Feb, [facility] [place] [facility] [address] [facility] [id number] [address] Feb, [facility] [place] [facility] [address] [facility] [id number], [place] [address] Feb, [facility] [place] [facility] [address] [id number] [place] [address] Feb, [facility] [place] [facility] [address] [facility] [id number][place] [address] Feb, [facility] [place] [facility] [address] [facility] [id number] [place] [address] Jan, [facility] [place] [facility] [address] [id number] [place] [address] 24 Jan, 2012 [facility] [place] [facility] [address] [id number] [place] [address] Jan, [facility] [place] [facility] [address] [id number] [place] [address] Jan, [facility] [place] [facility] [address] [id number] [place] [address] 27 Dec, 2011 [facility] [place] [facility] [address] [id number] [place] [address] 25 Dec, 2011 [facility] [place] [facility] [address] [id number] [place] [address] 18 Dec, 2011 [facility] [place] [facility] [address] [id number] [place] [address] 13 Dec, 2011 [facility] [place] [facility] [address] [id number] [place] [address] 11 Dec, 2011 [facility] [place] [facility] [address] [id number] [place] [address] Oct, [facility] [place] [facility] [address] [id number] [place] [address] Oct, [facility] [place] [facility] [address] [id number] [place] [address] Sep, [facility] [place] [facility] [address] [id number] [place] [address] Sep, [facility] [place] [facility] [address] [id number] [place] [address] August, [facility] [place] [facility] [address] [id number] [place] [address] August, [facility] [place] [facility] [address] [id number] [place] [address] Jul, [facility] [place] [facility] [address] [id number] [place] [address] 28 Jun, 2011 [facility] [place] [facility] [address] [id number] [place] [address] 23 Jun, 2011 [facility] [place] [facility] [address] [id number] [place] [address] 23 Jun, 2011 [facility] [place] [facility] [address] [id number] [place] [address] 19 Jun, 2011 [facility] [place] [facility] [address] [id number] [place] [address] 2011 [facility] [place] [facility] [address] [id number] [place] [address] 24 May, 2011 [facility] [place] [facility] [address] [id number] [place] [address] 22 May, 2011 [facility] [place] [facility] [address] [id number] [place] [address] 20 May, 2011 [facility] [place] [facility] [address] [id number] [place] [address] 14 May, 2011 [facility] [place] [facility] [address] [id number] [place] [address] 13 May, 2011 [facility] [place] [facility] [address] [id number] [place] [address] 03 May, 2011 [facility] [place] [facility] [address] [id number] [place] [address] May, [facility] [place] [facility] [address] [id number] [place] [address] May, [facility] [place] [facility] [address] [id number] [place] [address] Apr, [facility] [place] [facility] [address] [id number] [place] [address] Mar, [facility] [place] [facility] [address] [id number] [place] [address] Mar, [facility] [place] [facility] [address] [facility] [id number], [place] [address] Mar, [facility] [address] [facility] [id number], [place] [address] Mar, [facility] [address] [facility] [id number], [place] [address] Mar, [facility] [address] [facility] [id number], [place] [address] Jan, [facility] [address] [facility] [id number], [place] [address] Jan, [facility] [address] [facility] [id number], [place] [address] Jan, [facility] [address] [facility] [id number], [place] [address] August, [facility] [id number], [place] [address] Mar, [facility] [address] [facility] [id number], [place] [address] Feb, [facility] [address] [facility] [id number], [place] [address] Jan, [facility] [address] [id number] [address] Jan, IMMUNIZATIONS No Known Immunizations SOCIAL HISTORY [...]
--- OUTSIDE RECORDS SUMMARY | 2018-11-10 16:08 | XMS REPORT ---
Author Author KATIE HUDSON Organization [facility] Address [address] [place] [address] Care Team Providers Care Teletypist Name Role Phone KATIE HUDSON Unavailable PROBLEMS Type Condition ICD9-CM Code IBE53-OS Code Onset Dates Condition Status SNOMED Code Problem CAD (coronary artery disease) I25.10 Active 69730720 Problem Osteoarthritis of knees, bilateral M17.0 Active 095130232 Problem Essential hypertension I10 Active 59721445 Problem Diabetes E11.9 Active 45281551 Problem Arthritis M19.90 Active 8731615 Problem Morbid obesity E66.01 Active 519928059 Problem Hyperlipemia E78.5 Active [id number] ALLERGIES No Information ENCOUNTERS Encounter Location Date Diagnosis [facility] [address] [address] Sep, [facility] [address] [address] Jul, [facility] [address] [address] Apr, [facility] [id number] [place] [address] Mar, Pustular lesion L08.9 and Encounter for immunization Z23 [facility] [id number] [place] [address] Feb, [facility] [address] [address] Dec, [facility] [address] [address] Dec, [facility] [address] [address] Dec, Diabetes E11.9 ; Essential hypertension I10 ; Arthritis M19.90 ; Urinary frequency R35.0 ; Routine adult health maintenance Z00.00 and BMI 45.0- 49.9, adult Z68.42 [facility] [id number] [place] [address] 18 Dec, 2017 [facility] [id number] [place] [address] Dec, [facility] [id number] [place] [address] Oct, [facility] [id number] [place] [address] Sep, Diabetes E11.9 [facility] [id number] [place] [address] Sep, Diabetes E11.9 ; Hyperlipemia E78.5 ; CAD (coronary artery disease) I25.10 ; Essential hypertension I10 and BMI 45.0-49.9, adult Z68.42 [facility] [id number] [place] [address] Sep, [facility] [id number] [place] [address] August, [facility] [id number] [place] [address] Jan, Dysuria R30.0 [facility] [id number] [place] [address] Jan, Dysuria R30.0 [facility] [id number] [place] [address] Jan, Osteoarthritis of knees, bilateral M17.0 [facility] [id number] [place] [address] Nov, Dysuria R30.0 [facility] [id number] [place] [address] Oct, Blood in urine R31.9 ; Dysuria R30.0 ; Pharyngeal dysphagia R13.13 ; Acute cystitis with hematuria N30.01 ; CAD (coronary artery disease) I25.10 and Diabetes E11.9 [facility] [id number] [place] [address] Oct, [facility] [id number] [place] [address] Sep, Arthritis M19.90 ; Blood in urine R31.9 ; Diabetes E11.9 ; Acute cystitis with hematuria N30.01 and Pharyngoesophageal dysphagia R13.14 [facility] [id number] [place] [address] Sep, Osteoarthritis of knees, bilateral M17.0 [facility] [id number] [place] [address] Sep, Osteoarthritis of knees, bilateral M17.0 [facility] [id number] [place] [address] August, Arthritis M19.90 [facility] [id number] [place] [address] Jul, Arthritis M19.90 [facility] [id number] [place] [address] Jun, Arthritis M19.90 [facility] [id number] [place] [address] Jun, [facility] [id number] [place] [address] Jun, [facility] [id number] [place] [address] May, Diabetes E11.9 ; Dysuria R30.0 and Arthritis M19.90 [facility] [id number] [place] [address] Apr, [facility] [address] [facility] [id number] [address] Apr, Arthritis M19.90 [facility] [id number] [place] [address] Mar, Arthritis M19.90 [facility] [address] [place] [address] Feb, [facility] [id number] [place] [address] Jan, [facility] [id number] [place] [address] Dec, Diabetes E11.9 and Arthritis M19.90 [facility] [address] [place] [address], [place] [address] Dec, [facility] [id number] [place] [address] Nov, Arthritis M19.90 [facility] [address] [address] Nov, [facility] [address] [address] Oct, Arthritis M19.90 [facility] [address] [address] Sep, Osteoarthritis of knees, bilateral M17.0 [facility] [id number] [address] Sep, Osteoarthritis of knees, bilateral M17.0 [facility] [id number] [address] August, Arthritis M19.90 [facility] [id number] [address] August, [facility] [id number] [address] Jul, Hyperlipemia E78.5 [facility] [address] [address] Jul, Encounter for well woman exam Z01.419 ; Morbid obesity E66.01 ; Encounter for screening for malignant neoplasm of cervix Z12.4 and Encounter for screening mammogram for breast cancer Z12.31 [facility] [address], [place] [address] Jul, Arthritis M19.90 ; Diabetes E11.9 ; Blood in urine R31.9 and UTI (urinary tract infection) N39.0 [facility] [address] [address] Jul, [facility] [id number] [address] Jun, Arthritis M19.90 [facility] [id number] [address] May, Arthritis M19.90 [facility] [address] [address] May, [facility] [address], [place] [address] Apr, [facility] [address] [address] Apr, Arthritis M19.90 ; Diabetes E11.9 and Morbid obesity E66.01 [facility] [address], [place] [address] Apr, [facility] [address], [place] [address] Apr, Dyspareunia N94.1 [facility] [address] [address] Apr, [facility] [address], [place] [address] Apr, [facility] [address], [place] [address] Apr, Osteoarthritis of knees, bilateral M17.0 [facility] [address] [place] [address] Apr, Diabetes E11.9 and CAD (coronary artery disease) I25.10 [facility] [id number] [place] [address] Mar, [facility] [id number] [place] [address] Feb, [facility] [id number] [place] [address] Jan, [facility] [id number] [place] [address] Jan, [facility] [id number] [place] [address] Jan, [facility] [id number] [place] [address] Jan, Osteoarthritis of knees, bilateral M17.0 [facility] [address] [address] 30 Dec, 2014 [facility] [address], [place] [address] 17 Dec, 2014 [facility] [id number] [place] [address] Dec, [facility] [address], [place] [address] 08 Dec, 2014 Diabetes mellitus 250.00 and UTI (urinary tract infection) 599.0 [facility] [address], [place] [address] Dec, [facility] [address], [place] [address] Nov, [facility] [place] [facility] [address] [id number] [place] [address] Oct, [facility] [place] [facility] [address] [id number] [place] [address] Oct, [facility] [place] [facility] [address] [id number] [place] [address] Oct, [facility] [place] [facility] [address] [id number] [place] [address] Oct, [facility] [place] [facility] [address] [id number] [place] [address] Oct, [facility] [place] [facility] [address] [id number] [place] [address] Sep, [facility] [place] [facility] [address] [id number] [place] [address] August, [facility] [place] [facility] [address] [id number] [place] [address] August, [facility] [place] [facility] [address] [id number] [place] [address] August, [facility] [place] [facility] [address] [id number] [place] [address] Jul, [facility] [place] [facility] [address] [id number] [place] [address] Jul, [facility] [place] [facility] [address] [id number] [place] [address] Jul, [facility] [place] [facility] [address] [id number] [place] [address] Jun, [facility] [place] [facility] [address] [id number] [place] [address] Jun, [facility] [place] [facility] [address] [id number] [place] [address] Jun, [facility] [place] [facility] [address] [id number] [place] [address] Jun, [facility] [place] [facility] [address] [id number] [place] [address] Jun, [facility] [place] [facility] [address] [facility] [id number] [place] [address] Jun, [facility] [place] [facility] [address] [facility] [id number] [place] [address] Jun, [facility] [place] [facility] [address] [facility] [id number] [place] [address] Jun, [facility] [place] [facility] [address] [facility] [id number] [place] [address] May, [facility] [place] [facility] [address] [facility] [id number] [place] [address] May, 2014 [facility] [place] [facility] [address] [facility] [id number] [place] [address] May, 2014 [facility] [place] [facility] [address] [facility] [id number] [place] [address] May, 2014 [facility] [place] [facility] [address] [facility] [id number] [place] [address] May, 2014 [facility] [place] [facility] [address] [facility] [id number] [place] [address] May, 2014 [facility] [place] [facility] [address] [facility] [id number] [place] [address] May, 2014 [facility] [place] [facility] [address] [facility] [id number], [place] [address] May, 2014 [facility] [place] [facility] [address] [facility] [id number] [place] [address] May, 2014 [facility] [place] [facility] [address] [facility] [id number], [place] [address] May, 2014 [facility] [place] [facility] [address] [facility] [id number], [place] [address] May, [facility] [place] [facility] [address] [id number] [place] [address] May, [facility] [place] [facility] [address] [id number] [place] [address] Apr, [facility] [place] [facility] [address] [id number] [place] [address] Apr, [facility] [place] [facility] [address] [id number] [place] [address] Mar, [facility] [place] [facility] [address] [id number] [place] [address] Mar, [facility] [place] [facility] [address] [id number] [place] [address] Mar, [facility] [place] [facility] [address] [id number] [place] [address] Mar, [facility] [place] [facility] [address] [id number] [place] [address] Mar, [facility] [place] [facility] [address] [id number] [place] [address] Mar, [facility] [place] [facility] [address] [id number] [place] [address] Feb, [facility] [place] [facility] [address] [id number] [place] [address] Feb, [facility] [place] [facility] [address] [id number] [place] [address] Feb, [facility] [place] [facility] [address] [id number] [place] [address] Feb, [facility] [place] [facility] [address] [id number] [place] [address] Feb, [facility] [place] [facility] [address] [id number] [place] [address] Feb, [facility] [place] [facility] [address] [id number], [place] [address] Feb, [facility] [place] [facility] [address] [id number] [place] [address] Feb, [facility] [place] [facility] [address] [id number] [place] [address] Feb, [facility] [place] [facility] [address] [id number] [place] [address] Jan, [facility] [place] [facility] [address] [id number] [place] [address] Jan, [facility] [place] [facility] [address] [id number] [place] [address] Jan, [facility] [place] [facility] [address] [id number] [place] [address] Jan, [facility] [place] [facility] [address] [id number] [place] [address] Jan, [facility] [place] [facility] [address] [id number] [place] [address] Jan, [facility] [place] [facility] [address] [id number] [place] [address] Jan, [facility] [place] [facility] [address] [id number] [place] [address] Jan, [facility] [place] [facility] [address] [id number], [place] [address] Jan, [facility] [place] [facility] [address] [id number], [place] [address] Jan, [facility] [place] [facility] [address] [id number] [place] [address] 19 Dec, 2013 [facility] [place] [facility] [address] [id number] [place] [address] 19 Dec, 2013 [facility] [place] [facility] [address] [id number] [place] [address] 10 Dec, 2013 [facility] [place] [facility] [address] [id number] [place] [address] Dec, [facility] [place] [facility] [address] [id number] [place] [address] Nov, [facility] [place] [facility] [address] [id number] [place] [address] Nov, [facility] [place] [facility] [address] [id number] [place] [address] Nov, [facility] [place] [facility] [address] [id number] [place] [address] Nov, [facility] [place] [facility] [address] [id number] [place] [address] Nov, [facility] [place] [facility] [address] [id number] [place] [address] Nov, [facility] [place] [facility] [address] [id number] [place] [address] Nov, [facility] [place] [facility] [address] [id number] [place] [address] Nov, [facility] [place] [facility] [address] [id number] [place] [address] Nov, [facility] [place] [facility] [address] [id number] [place] [address] Oct, [facility] [place] [facility] [address] [id number] [place] [address] Oct, [facility] [place] [facility] [address] [id number] [place] [address] Sep, [facility] [place] [facility] [address] [id number] [place] [address] Sep, [facility] [place] [facility] [address] [id number] [place] [address] Sep, [facility] [place] [facility] [address] [id number] [place] [address] Sep, [facility] [place] [facility] [address] [id number] [place] [address] Sep, [facility] [place] [facility] [address] [id number] [place] [address] Sep, [facility] [place] [facility] [address] [id number] [place] [address] Sep, [facility] [place] [facility] [address] [id number] [place] [address] Sep, [facility] [place] [facility] [address] [id number] [place] [address] Sep, [facility] [place] [facility] [address] [id number] [place] [address] Sep, [facility] [place] [facility] [address] [id number] [place] [address] Sep, [facility] [place] [facility] [address] [id number] [place] [address] Sep, [facility] [place] [facility] [address] [id number] [place] [address] Sep, [facility] [place] [facility] [address] [id number] [place] [address] Sep, [facility] [place] [facility] [address] [id number] [place] [address] August, [facility] [place] [facility] [address] [id number] [place] [address] August, [facility] [place] [facility] [address] [id number] [place] [address] August, [facility] [place] [facility] [address] [id number] [place] [address] August, [facility] [place] [facility] [address] [id number] [place] [address] Jul, [facility] [place] [facility] [address] [id number] [place] [address] Jul, [facility] [place] [facility] [address] [id number] [place] [address] Jul, [facility] [place] [facility] [address] [id number] [place] [address] Jul, [facility] [place] [facility] [address] [id number] [place] [address] Jun, [facility] [place] [facility] [address] [id number] [place] [address] Jun, [facility] [place] [facility] [address] [id number] [place] [address] May, [facility] [place] [facility] [address] [id number] [place] [address] May, [facility] [place] [facility] [address] [id number] [place] [address] May, [facility] [place] [facility] [address] [id number] [place] [address] May, [facility] [place] [facility] [address] [id number] [place] [address] May, [facility] [place] [facility] [address] [id number] [place] [address] May, [facility] [place] [facility] [address] [id number] [place] [address] May, [facility] [place] [facility] [address] [id number] [place] [address] May, [facility] [place] [facility] [address] [id number] [place] [address] May, [facility] [place] [facility] [address] [id number] [place] [address] Apr, [facility] [place] [facility] [address] [id number] [place] [address] Apr, [facility] [place] [facility] [address] [id number] [place] [address] Apr, [facility] [place] [facility] [address] [id number] [place] [address] Apr, [facility] [place] [facility] [address] [id number] [place] [address] Apr, [facility] [place] [facility] [address] [id number] [place] [address] Mar, [facility] [place] [facility] [address] [id number] [place] [address] Mar, [facility] [place] [facility] [address] [id number] [place] [address] Feb, [facility] [place] [facility] [address] [id number] [place] [address] Feb, [facility] [place] [facility] [address] [id number] [place] [address] Feb, [facility] [place] [facility] [address] [id number] [place] [address] Feb, [facility] [place] [facility] [address] [id number], [place] [address] Feb, [facility] [place] [facility] [address] [id number], [place] [address] Feb, [facility] [place] [facility] [address] [id number], [place] [address] Feb, [facility] [place] [facility] [address] [id number] [place] [address] Feb, [facility] [place] [facility] [address] [id number], [place] [address] Feb, [facility] [place] [facility] [address] [id number], [place] [address] Jan, [facility] [place] [facility] [address] [id number] [place] [address] Jan, [facility] [address] [id number] [place] [address] Jan, [facility] [place] [facility] [address] [id number] [place] [address] Jan, [facility] [place] [facility] [address] [id number] [place] [address] Jan, [facility] [place] [facility] [address] [id number] [place] [address] Dec, [facility] [place] [facility] [address] [id number] [place] [address] Dec, [facility] [place] [facility] [address] [id number] [place] [address] Nov, [facility] [place] [facility] [address] [id number] [place] [address] Nov, [facility] [place] [facility] [address] [id number] [place] [address] Oct, [facility] [place] [facility] [address] [id number] [place] [address] Oct, [facility] [place] [facility] [address] [id number] [place] [address] Oct, [facility] [place] [facility] [address] [id number] [place] [address] Sep, [facility] [place] [facility] [address] [id number] [place] [address] Sep, [facility] [place] [facility] [address] [id number] [place] [address] Sep, [facility] [place] [facility] [address] [id number] [place] [address] August, [facility] [place] [facility] [address] [id number] [place] [address] August, [facility] [place] [facility] [address] [id number] [place] [address] August, [facility] [address] [id number] [place] [address] August, [facility] [place] [facility] [address] [id number] [place] [address] Jul, [facility] [place] [facility] [address] [id number] [place] [address] Jun, [facility] [place] [facility] [address] [id number] [place] [address] Jun, [facility] [place] [facility] [address] [id number] [place] [address] Jun, [facility] [address] [id number] [place] [address] May, [facility] [address] [id number] [place] [address] May, [facility] [place] [facility] [address] [id number] [place] [address] May, [facility] [address] [id number] [place] [address] May, [facility] [facility] [address] [id number] [place] [address] Apr, [facility] [place] [facility] [address] [id number] [place] [address] Apr, [facility] [place] [facility] [address] [id number] [place] [address] Apr, [facility] [place] [facility] [address] [id number] [place] [address] 14 Apr, 2012 [facility] [place] [facility] [address] [id number] [place] [address] Apr, [facility] [place] [facility] [address] [id number], [place] [address] Mar, [facility] [place] [facility] [address] [id number] [place] [address] Mar, [facility] [place] [facility] [address] [id number] [place] [address] Mar, [facility] [place] [facility] [address] [facility] [id number] [place] [address] Mar, [facility] [place] [facility] [address] [id number] [place] [address] Mar, [facility] [place] [facility] [address] [id number] [place] [address] Mar, [facility] [place] [facility] [address] [id number] [place] [address] Mar, [facility] [place] [facility] [address] [id number] [place] [address] Feb, [facility] [place] [facility] [address] [id number] [place] [address] Feb, [facility] [place] [facility] [address] [facility] [id number] [place] [address] Feb, [facility] [place] [facility] [address] [facility] [id number] [place] [address] Feb, [facility] [place] [facility] [address] [facility] [id number], [place] [address] Feb, [facility] [place] [facility] [address] [facility] [id number], [place] [address] Feb, [facility] [place] [facility] [address] [id number] [place] [address] Feb, [facility] [place] [facility] [address] [facility] [id number], [place] [address] Feb, [facility] [place] [facility] [address] [facility] [id number] [place] [address] Jan, [facility] [place] [facility] [address] [id number] [place] [address] 24 Jan, 2012 [facility] [place] [facility] [address] [id number] [place] [address] Jan, [facility] [place] [facility] [address] [id number] [place] [address] Jan, [facility] [place] [facility] [address] [id number] [place] [address] 27 Dec, 2011 [facility] [place] [facility] [address] [id number] [place] [address] 25 Dec, 2011 [facility] [place] [facility] [address] [id number] [place] [address] 18 Dec, 2011 [facility] [place] [facility] [address] [id number] [place] [address] 13 Dec, 2011 [facility] [place] [facility] [address] [id number] [place] [address] 11 Dec, 2011 [facility] [place] [facility] [address] [id number] [place] [address] Oct, [facility] [place] [facility] [address] [id number] [place] [address] Oct, [facility] [place] [facility] [address] [id number] [place] [address] Sep, [facility] [place] [facility] [address] [id number] [place] [address] Sep, [facility] [address] [id number] [place] [address] August, [facility] [place] [facility] [address] [id number] [place] [address] August, [facility] [place] [facility] [address] [id number] [place] [address] Jul, [facility] [place] [facility] [address] [id number] [place] [address] 28 Jun, 2011 [facility] [place] [facility] [address] [id number] [place] [address] 23 Jun, 2011 [facility] [place] [facility] [address] [id number] [place] [address] 23 Jun, 2011 [facility] [place] [facility] [address] [id number] [place] [address] 19 Jun, 2011 [facility] [place] [facility] [address] [id number] [place] [address] 2011 [facility] [place] [facility] [address] [id number] [place] [address] 24 May, 2011 [facility] [place] [facility] [address] [id number] [place] [address] 22 May, 2011 [facility] [place] [facility] [address] [id number] [place] [address] 20 May, 2011 [facility] [address] [id number] [place] [address] 14 May, 2011 [facility] [place] [address] [id number] [place] [address] 13 May, 2011 [facility] [place] [facility] [address] [id number] [place] [address] 03 May, 2011 [facility] [address] [id number] [place] [address] May, [facility] [address] [id number] [place] [address] May, [facility] [place] [facility] [address] [id number] [place] [address] Apr, [facility] [facility] [address] [id number] [place] [address] Mar, [facility] [address] [id number] [place] [address] Mar, [facility] [address] [facility] [id number], [place] [address] Mar, [facility] [address] [facility] [id number], [place] [address] Mar, [facility] [address] [facility] [id number], [place] [address] Mar, [facility] [address] [facility] [id number], [place] [address] Jan, [facility] [address] [facility] [id number], [place] [address] Jan, [facility] [address] [facility] [id number], [place] [address] Jan, [facility] [address] [facility] [id number], [place] [address] August, [facility] [id number] [address] Mar, [facility] [address] [facility] [id number], [place] [address] Feb, [facility] [address] [facility] [id number], [place] [address] Jan, [facility] [address] [id number], [place] [address] Jan, IMMUNIZATIONS No Known Immunizations SOCIAL HISTORY [...]
--- OUTSIDE RECORDS SUMMARY | 2018-11-10 16:09 | XMS REPORT ---
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 Name Role Phone KATIE HUDSON Unavailable PROBLEMS Type Condition ICD9-CM Code [id number] Code Onset Dates Condition Status SNOMED Code Problem CAD (coronary artery disease) I25.10 Active 19475591 Problem Osteoarthritis of knees, bilateral M17.0 Active 793959525 Problem Essential hypertension I10 Active 68262065 Problem Diabetes E11.9 Active 14274120 Problem Arthritis M19.90 Active 8669257 Problem Morbid obesity E66.01 Active 248485489 Problem Hyperlipemia E78.5 Active [id number] ALLERGIES No Information ENCOUNTERS Encounter Location Date Diagnosis [facility] [address] [address] Sep, [facility] [address] [address] Jul, [facility] [address] [address] Apr, [facility] [id number] [place] [address] Mar, Pustular lesion L08.9 and Encounter for immunization Z23 [facility] [id number] [place] [address] Feb, [facility] [address] [address] Dec, [facility] [address] [address] Dec, [facility] [address] [address] Dec, Diabetes E11.9 ; Essential hypertension I10 ; Arthritis M19.90 ; Urinary frequency R35.0 ; Routine adult health maintenance Z00.00 and BMI 45.0- 49.9, adult Z68.42 [facility] [id number] [place] [address] 18 Dec, 2017 [facility] [id number] [place] [address] Dec, [facility] [id number] [place] [address] Oct, [facility] [id number] [place] [address] Sep, Diabetes E11.9 [facility] [id number] [place] [address] Sep, Diabetes E11.9 ; Hyperlipemia E78.5 ; CAD (coronary artery disease) I25.10 ; Essential hypertension I10 and BMI 45.0-49.9, adult Z68.42 [facility] [id number] [place] [address] Sep, [facility] [id number] [place] [address] August, [facility] [id number] [place] [address] Jan, Dysuria R30.0 [facility] [id number] [place] [address] Jan, Dysuria R30.0 [facility] [id number] [place] [address] Jan, Osteoarthritis of knees, bilateral M17.0 [facility] [id number] [place] [address] Nov, Dysuria R30.0 [facility] [id number] [place] [address] Oct, Blood in urine R31.9 ; Dysuria R30.0 ; Pharyngeal dysphagia R13.13 ; Acute cystitis with hematuria N30.01 ; CAD (coronary artery disease) I25.10 and Diabetes E11.9 [facility] [id number] [place] [address] Oct, [facility] [id number] [place] [address] Sep, Arthritis M19.90 ; Blood in urine R31.9 ; Diabetes E11.9 ; Acute cystitis with hematuria N30.01 and Pharyngoesophageal dysphagia R13.14 [facility] [id number] [place] [address] Sep, Osteoarthritis of knees, bilateral M17.0 [facility] [id number] [place] [address] Sep, Osteoarthritis of knees, bilateral M17.0 [facility] [id number] [place] [address] August, Arthritis M19.90 [facility] [id number] [place] [address] Jul, Arthritis M19.90 [facility] [id number] [place] [address] Jun, Arthritis M19.90 [facility] [id number] [place] [address] Jun, [facility] [id number] [place] [address] Jun, [facility] [id number] [place] [address] May, Diabetes E11.9 ; Dysuria R30.0 and Arthritis M19.90 [facility] [id number] [place] [address] Apr, [facility] [address] [facility] [id number] [address] Apr, Arthritis M19.90 [facility] [id number] [place] [address] Mar, Arthritis M19.90 [facility] [address] [place] [address] Feb, [facility] [id number] [place] [address] Jan, [facility] [id number] [place] [address] Dec, Diabetes E11.9 and Arthritis M19.90 [facility] [address] [place] [address], [place] [address] Dec, [facility] [id number] [place] [address] Nov, Arthritis M19.90 [facility] [address] [address] Nov, [facility] [address] [address] Oct, Arthritis M19.90 [facility] [address] [address] Sep, Osteoarthritis of knees, bilateral M17.0 [facility] [id number] [address] Sep, Osteoarthritis of knees, bilateral M17.0 [facility] [id number] [address] August, Arthritis M19.90 [facility] [id number] [address] August, [facility] [id number] [address] Jul, Hyperlipemia E78.5 [facility] [address] [address] Jul, Encounter for well woman exam Z01.419 ; Morbid obesity E66.01 ; Encounter for screening for malignant neoplasm of cervix Z12.4 and Encounter for screening mammogram for breast cancer Z12.31 [facility] [address] [address] Jul, Arthritis M19.90 ; Diabetes E11.9 ; Blood in urine R31.9 and UTI (urinary tract infection) N39.0 [facility] [address] [address] Jul, [facility] [id number] [address] Jun, Arthritis M19.90 [facility] [id number] [address] May, Arthritis M19.90 [facility] [address] [address] May, [facility] [address] [address] Apr, [facility] [address], [place] [address] Apr, Arthritis M19.90 ; Diabetes E11.9 and Morbid obesity E66.01 [facility] [address], [place] [address] Apr, [facility] [address], [place] [address] Apr, Dyspareunia N94.1 [facility] [address] [address] Apr, [facility] [address], [place] [address] Apr, [facility] [address], [place] [address] Apr, Osteoarthritis of knees, bilateral M17.0 [facility] [address] [place] [address] Apr, Diabetes E11.9 and CAD (coronary artery disease) I25.10 [facility] [id number] [place] [address] Mar, [facility] [id number] [place] [address] Feb, [facility] [id number] [place] [address] Jan, [facility] [id number] [place] [address] Jan, [facility] [id number] [place] [address] Jan, [facility] [id number] [place] [address] Jan, Osteoarthritis of knees, bilateral M17.0 [facility] [address], [place] [address] 30 Dec, 2014 [facility] [address], [place] [address] 17 Dec, 2014 [facility] [id number] [place] [address] Dec, [facility] [address] [address] 08 Dec, 2014 Diabetes mellitus 250.00 and UTI (urinary tract infection) 599.0 [facility] [address], [place] [address] Dec, [facility] [address], [place] [address] Nov, [facility] [place] [facility] [address] [id number] [place] [address] Oct, [facility] [place] [facility] [address] [id number] [place] [address] Oct, [facility] [place] [facility] [address] [id number] [place] [address] Oct, [facility] [place] [facility] [address] [id number] [place] [address] Oct, [facility] [place] [facility] [address] [id number] [place] [address] Oct, [facility] [place] [facility] [address] [id number] [place] [address] Sep, [facility] [place] [facility] [address] [id number] [place] [address] August, [facility] [place] [facility] [address] [id number] [place] [address] August, [facility] [place] [facility] [address] [id number] [place] [address] August, [facility] [place] [facility] [address] [id number] [place] [address] Jul, [facility] [place] [facility] [address] [id number] [place] [address] Jul, [facility] [place] [facility] [address] [id number] [place] [address] Jul, [facility] [place] [facility] [address] [id number] [place] [address] Jun, [facility] [place] [facility] [address] [id number] [place] [address] Jun, [facility] [place] [facility] [address] [id number] [place] [address] Jun, [facility] [place] [facility] [address] [id number] [place] [address] Jun, [facility] [place] [facility] [address] [id number] [place] [address] Jun, [facility] [place] [facility] [address] [facility] [id number] [place] [address] Jun, [facility] [place] [facility] [address] [facility] [id number] [place] [address] Jun, [facility] [place] [facility] [address] [facility] [id number] [place] [address] Jun, [facility] [place] [facility] [address] [facility] [id number] [place] [address] May, [facility] [place] [facility] [address] [facility] [id number] [place] [address] May, 2014 [facility] [place] [facility] [address] [facility] [id number] [place] [address] May, 2014 [facility] [place] [facility] [address] [facility] [id number] [place] [address] May, 2014 [facility] [place] [facility] [address] [facility] [id number] [place] [address] May, 2014 [facility] [place] [facility] [address] [facility] [id number] [place] [address] May, 2014 [facility] [place] [facility] [address] [facility] [id number] [place] [address] May, 2014 [facility] [place] [facility] [address] [facility] [id number], [place] [address] May, 2014 [facility] [place] [facility] [address] [facility] [id number] [place] [address] May, 2014 [facility] [place] [facility] [address] [facility] [id number], [place] [address] May, 2014 [facility] [place] [facility] [address] [facility] [id number], [place] [address] May, [facility] [place] [facility] [address] [id number] [place] [address] May, [facility] [place] [facility] [address] [id number] [place] [address] Apr, [facility] [place] [facility] [address] [id number] [place] [address] Apr, [facility] [place] [facility] [address] [id number] [place] [address] Mar, [facility] [place] [facility] [address] [id number] [place] [address] Mar, [facility] [place] [facility] [address] [id number] [place] [address] Mar, [facility] [place] [facility] [address] [id number] [place] [address] Mar, [facility] [place] [facility] [address] [id number] [place] [address] Mar, [facility] [place] [facility] [address] [id number] [place] [address] Mar, [facility] [place] [facility] [address] [id number] [place] [address] Feb, [facility] [place] [facility] [address] [id number] [place] [address] Feb, [facility] [place] [facility] [address] [id number] [place] [address] Feb, [facility] [place] [facility] [address] [id number] [place] [address] Feb, [facility] [place] [facility] [address] [id number] [place] [address] Feb, [facility] [place] [facility] [address] [id number] [place] [address] Feb, [facility] [place] [facility] [address] [id number], [place] [address] Feb, [facility] [place] [facility] [address] [id number] [place] [address] Feb, [facility] [place] [facility] [address] [id number] [place] [address] Feb, [facility] [place] [facility] [address] [id number] [place] [address] Jan, [facility] [place] [facility] [address] [id number] [place] [address] Jan, [facility] [place] [facility] [address] [id number] [place] [address] Jan, [facility] [place] [facility] [address] [id number] [place] [address] Jan, [facility] [place] [facility] [address] [id number] [place] [address] Jan, [facility] [place] [facility] [address] [id number] [place] [address] Jan, [facility] [place] [facility] [address] [id number] [place] [address] Jan, [facility] [place] [facility] [address] [id number] [place] [address] Jan, [facility] [place] [facility] [address] [id number], [place] [address] Jan, [facility] [place] [facility] [address] [id number], [place] [address] Jan, [facility] [place] [facility] [address] [id number] [place] [address] 19 Dec, 2013 [facility] [place] [facility] [address] [id number] [place] [address] 19 Dec, 2013 [facility] [place] [facility] [address] [id number] [place] [address] 10 Dec, 2013 [facility] [place] [facility] [address] [id number] [place] [address] Dec, [facility] [place] [facility] [address] [id number] [place] [address] Nov, [facility] [place] [facility] [address] [id number] [place] [address] Nov, [facility] [place] [facility] [address] [id number] [place] [address] Nov, [facility] [place] [facility] [address] [id number] [place] [address] Nov, [facility] [place] [facility] [address] [id number] [place] [address] Nov, [facility] [place] [facility] [address] [id number] [place] [address] Nov, [facility] [place] [facility] [address] [id number] [place] [address] Nov, [facility] [place] [facility] [address] [id number] [place] [address] Nov, [facility] [place] [facility] [address] [id number] [place] [address] Nov, [facility] [place] [facility] [address] [id number] [place] [address] Oct, [facility] [place] [facility] [address] [id number] [place] [address] Oct, [facility] [place] [facility] [address] [id number] [place] [address] Sep, [facility] [place] [facility] [address] [id number] [place] [address] Sep, [facility] [place] [facility] [address] [id number] [place] [address] Sep, [facility] [place] [facility] [address] [id number] [place] [address] Sep, [facility] [place] [facility] [address] [id number] [place] [address] Sep, [facility] [place] [facility] [address] [id number] [place] [address] Sep, [facility] [place] [facility] [address] [id number] [place] [address] Sep, [facility] [place] [facility] [address] [id number] [place] [address] Sep, [facility] [place] [facility] [address] [id number] [place] [address] Sep, [facility] [place] [facility] [address] [id number] [place] [address] Sep, [facility] [place] [facility] [address] [id number] [place] [address] Sep, [facility] [place] [facility] [address] [id number] [place] [address] Sep, [facility] [place] [facility] [address] [id number] [place] [address] Sep, [facility] [place] [facility] [address] [id number] [place] [address] Sep, [facility] [place] [facility] [address] [id number] [place] [address] August, [facility] [place] [facility] [address] [id number] [place] [address] August, [facility] [place] [facility] [address] [id number] [place] [address] August, [facility] [place] [facility] [address] [id number] [place] [address] August, [facility] [place] [facility] [address] [id number] [place] [address] Jul, [facility] [place] [facility] [address] [id number] [place] [address] Jul, [facility] [place] [facility] [address] [id number] [place] [address] Jul, [facility] [place] [facility] [address] [id number] [place] [address] Jul, [facility] [place] [facility] [address] [id number] [place] [address] Jun, [facility] [place] [facility] [address] [id number] [place] [address] Jun, [facility] [place] [facility] [address] [id number] [place] [address] May, [facility] [place] [facility] [address] [id number] [place] [address] May, [facility] [place] [facility] [address] [id number] [place] [address] May, [facility] [place] [facility] [address] [id number] [place] [address] May, [facility] [place] [facility] [address] [id number] [place] [address] May, [facility] [place] [facility] [address] [id number] [place] [address] May, [facility] [place] [facility] [address] [id number] [place] [address] May, [facility] [place] [facility] [address] [id number] [place] [address] May, [facility] [place] [facility] [address] [id number] [place] [address] May, [facility] [place] [facility] [address] [id number] [place] [address] Apr, [facility] [place] [facility] [address] [id number] [place] [address] Apr, [facility] [place] [facility] [address] [id number] [place] [address] Apr, [facility] [place] [facility] [address] [id number] [place] [address] Apr, [facility] [place] [facility] [address] [id number] [place] [address] Apr, [facility] [place] [facility] [address] [id number] [place] [address] Mar, [facility] [place] [facility] [address] [id number] [place] [address] Mar, [facility] [place] [facility] [address] [id number] [place] [address] Feb, [facility] [place] [facility] [address] [id number] [place] [address] Feb, [facility] [place] [facility] [address] [id number] [place] [address] Feb, [facility] [place] [facility] [address] [id number] [place] [address] Feb, [facility] [place] [facility] [address] [id number] [address] Feb, [facility] [place] [facility] [address] [id number], [place] [address] Feb, [facility] [place] [facility] [address] [id number], [place] [address] Feb, [facility] [place] [facility] [address] [id number] [place] [address] Feb, [facility] [place] [facility] [address] [id number], [place] [address] Feb, [facility] [place] [facility] [address] [id number], [place] [address] Jan, [facility] [place] [facility] [address] [id number] [place] [address] Jan, [facility] [address] [id number] [place] [address] Jan, [facility] [place] [facility] [address] [id number] [place] [address] Jan, [facility] [place] [facility] [address] [id number] [place] [address] Jan, [facility] [place] [facility] [address] [id number] [place] [address] Dec, [facility] [place] [facility] [address] [id number] [place] [address] Dec, [facility] [place] [facility] [address] [id number] [place] [address] Nov, [facility] [place] [facility] [address] [id number] [place] [address] Nov, [facility] [place] [facility] [address] [id number] [place] [address] Oct, [facility] [place] [facility] [address] [id number] [place] [address] Oct, [facility] [place] [facility] [address] [id number] [place] [address] Oct, [facility] [place] [facility] [address] [id number] [place] [address] Sep, [facility] [place] [facility] [address] [id number] [place] [address] Sep, [facility] [place] [facility] [address] [id number] [place] [address] Sep, [facility] [place] [facility] [address] [id number] [place] [address] August, [facility] [place] [facility] [address] [id number] [place] [address] August, [facility] [place] [facility] [address] [id number] [place] [address] August, [facility] [address] [id number] [place] [address] August, [facility] [place] [facility] [address] [id number] [place] [address] Jul, [facility] [place] [facility] [address] [id number] [place] [address] Jun, [facility] [place] [facility] [address] [id number] [place] [address] Jun, [facility] [place] [facility] [address] [id number] [place] [address] Jun, [facility] [place] [address] [id number] [place] [address] May, [facility] [place] [facility] [address] [id number] [place] [address] May, [facility] [place] [facility] [address] [id number] [place] [address] May, [facility] [place] [address] [id number] [place] [address] May, [facility] [place] [facility] [address] [id number] [place] [address] Apr, [facility] [place] [facility] [address] [id number] [place] [address] Apr, [facility] [place] [facility] [address] [id number] [place] [address] Apr, [facility] [place] [facility] [address] [id number] [place] [address] 14 Apr, 2012 [facility] [place] [facility] [address] [id number] [place] [address] Apr, [facility] [place] [facility] [address] [id number], [place] [address] Mar, [facility] [place] [facility] [address] [id number] [place] [address] Mar, [facility] [place] [facility] [address] [id number] [place] [address] Mar, [facility] [place] [facility] [address] [facility] [id number] [place] [address] Mar, [facility] [place] [facility] [address] [id number] [place] [address] Mar, [facility] [place] [facility] [address] [id number] [place] [address] Mar, [facility] [place] [facility] [address] [id number] [place] [address] Mar, [facility] [place] [facility] [address] [id number] [place] [address] Feb, [facility] [place] [facility] [address] [id number] [place] [address] Feb, [facility] [place] [facility] [address] [facility] [id number] [place] [address] Feb, [facility] [place] [facility] [address] [facility] [id number] [place] [address] Feb, [facility] [place] [facility] [address] [facility] [id number], [place] [address] Feb, [facility] [place] [facility] [address] [facility] [id number], [place] [address] Feb, [facility] [place] [facility] [address] [id number] [place] [address] Feb, [facility] [place] [facility] [address] [facility] [id number], [place] [address] Feb, [facility] [place] [facility] [address] [facility] [id number] [place] [address] Jan, [facility] [place] [facility] [address] [id number] [place] [address] 24 Jan, 2012 [facility] [place] [facility] [address] [id number] [place] [address] Jan, [facility] [place] [facility] [address] [id number] [place] [address] Jan, [facility] [place] [facility] [address] [id number] [place] [address] 27 Dec, 2011 [facility] [place] [facility] [address] [id number] [place] [address] 25 Dec, 2011 [facility] [place] [facility] [address] [id number] [place] [address] 18 Dec, 2011 [facility] [place] [facility] [address] [id number] [place] [address] 13 Dec, 2011 [facility] [place] [facility] [address] [id number] [place] [address] 11 Dec, 2011 [facility] [place] [facility] [address] [id number] [place] [address] Oct, [facility] [place] [facility] [address] [id number] [place] [address] Oct, [facility] [place] [facility] [address] [id number] [place] [address] Sep, [facility] [place] [facility] [address] [id number] [place] [address] Sep, [facility] [place] [facility] [address] [id number] [place] [address] August, [facility] [place] [facility] [address] [id number] [place] [address] August, [facility] [place] [facility] [address] [id number] [place] [address] Jul, [facility] [place] [facility] [address] [id number] [place] [address] 28 Jun, 2011 [facility] [place] [facility] [address] [id number] [place] [address] 23 Jun, 2011 [facility] [place] [facility] [address] [id number] [place] [address] 23 Jun, 2011 [facility] [place] [facility] [address] [id number] [place] [address] 19 Jun, 2011 [facility] [place] [facility] [address] [id number] [place] [address] 2011 [facility] [place] [facility] [address] [id number] [place] [address] 24 May, 2011 [facility] [place] [facility] [address] [id number] [place] [address] 22 May, 2011 [facility] [place] [facility] [address] [id number] [place] [address] 20 May, 2011 [facility] [place] [facility] [address] [id number] [place] [address] 14 May, 2011 [facility] [place] [facility] [address] [id number] [place] [address] 13 May, 2011 [facility] [place] [facility] [address] [id number] [place] [address] 03 May, 2011 [facility] [place] [facility] [address] [id number] [place] [address] May, [facility] [place] [facility] [address] [id number] [place] [address] May, [facility] [place] [facility] [address] [id number] [place] [address] Apr, [facility] [place] [facility] [address] [id number] [place] [address] Mar, [facility] [place] [facility] [address] [id number] [place] [address] Mar, [facility] [place] [facility] [address] [facility] [id number], [place] [address] Mar, [facility] [address] [facility] [id number], [place] [address] Mar, [facility] [address] [facility] [id number], [place] [address] Mar, [facility] [address] [facility] [id number], [place] [address] Jan, [facility] [address] [facility] [id number], [place] [address] Jan, [facility] [address] [facility] [id number], [place] [address] Jan, [facility] [address] [facility] [id number], [place] [address] August, [facility] [id number], [place] [address] Mar, [facility] [address] [facility] [id number], [place] [address] Feb, [facility] [address] [facility] [id number], [place] [address] Jan, [facility] [address] [id number], [place] [address] Jan, IMMUNIZATIONS No Known Immunizations SOCIAL HISTORY [...]
--- OUTSIDE RECORDS SUMMARY | 2018-11-10 16:10 | XMS REPORT ---
Author Author KATIE HUDSON Organization [facility] [place] Address [address] [place] [address] Care Team Providers Care Senior Ux Designer Name Role Phone KATIE HUDSON Unavailable PROBLEMS Type Condition ICD9-CM Code RGA64-SX Code Onset Dates Condition Status SNOMED Code Problem CAD (coronary artery disease) I25.10 Active 95059020 Problem Osteoarthritis of knees, bilateral M17.0 Active 208298641 Problem Essential hypertension I10 Active 39080573 Problem Diabetes E11.9 Active 05237184 Problem Arthritis M19.90 Active 0814111 Problem Morbid obesity E66.01 Active 116516816 Problem Hyperlipemia E78.5 Active 22211238 ALLERGIES No Information ENCOUNTERS Encounter Location Date Diagnosis [facility] [place] [address] [address] Sep, [facility] [place] [address] [address] Jul, [facility] [place] [address] [address] Apr, [facility] [place] [id number] [place] [address] Mar, Pustular lesion L08.9 and Encounter for immunization Z23 [facility] [place] [id number] [place] [address] Feb, [facility] [place] [address] [address] Dec, [facility] [place] [address] [address] Dec, [facility] [place] [address] [address] Dec, Diabetes E11.9 ; Essential hypertension I10 ; Arthritis M19.90 ; Urinary frequency R35.0 ; Routine adult health maintenance Z00.00 and BMI 45.0- 49.9, adult Z68.42 [facility] [place] [id number] [place] [address] 18 Dec, 2017 [facility] [place] [id number] [place] [address] Dec, [facility] [place] [id number] [place] [address] Oct, [facility] [place] [id number] [place] [address] Sep, Diabetes E11.9 [facility] [place] [id number] [place] [address] Sep, Diabetes E11.9 ; Hyperlipemia E78.5 ; CAD (coronary artery disease) I25.10 ; Essential hypertension I10 and BMI 45.0-49.9, adult Z68.42 [facility] [place] [id number] [place] [address] Sep, [facility] [place] [id number] [place] [address] August, [facility] [place] [id number] [place] [address] Jan, Dysuria R30.0 [facility] [place] [id number] [place] [address] Jan, Dysuria R30.0 [facility] [place] [id number] [place] [address] Jan, Osteoarthritis of knees, bilateral M17.0 [facility] [place] [id number] [place] [address] Nov, Dysuria R30.0 [facility] [place] [id number] [place] [address] Oct, Blood in urine R31.9 ; Dysuria R30.0 ; Pharyngeal dysphagia R13.13 ; Acute cystitis with hematuria N30.01 ; CAD (coronary artery disease) I25.10 and Diabetes E11.9 [facility] [place] [id number] [place] [address] Oct, [facility] [place] [id number] [place] [address] Sep, Arthritis M19.90 ; Blood in urine R31.9 ; Diabetes E11.9 ; Acute cystitis with hematuria N30.01 and Pharyngoesophageal dysphagia R13.14 [facility] [id number] [place] [address] Sep, Osteoarthritis of knees, bilateral M17.0 [facility] [id number] [place] [address] Sep, Osteoarthritis of knees, bilateral M17.0 [facility] [id number] [place] [address] August, Arthritis M19.90 [facility] [id number] [place] [address] Jul, Arthritis M19.90 [facility] [place] [id number] [place] [address] Jun, Arthritis M19.90 [facility] [place] [id number] [place] [address] Jun, [facility] [place] [id number] [place] [address] Jun, [facility] [place] [id number] [place] [address] May, Diabetes E11.9 ; Dysuria R30.0 and Arthritis M19.90 [facility] [place] [id number] [place] [address] Apr, [facility] [place] [address] [facility] [id number] [address] Apr, Arthritis M19.90 [facility] [place] [id number] [place] [address] Mar, Arthritis M19.90 [facility] [place] [address] [place] [address] Feb, [facility] [place] [id number] [place] [address] Jan, [facility] [place] [id number] [place] [address] Dec, Diabetes E11.9 and Arthritis M19.90 [facility] [place] [id number] [place] [address], [place] [address] Dec, [facility] [place] [id number] [place] [address] Nov, Arthritis M19.90 [facility] [place] [address] [address] Nov, [facility] [place] [address] [address] Oct, Arthritis M19.90 [facility] [place] [address] [address] Sep, Osteoarthritis of knees, bilateral M17.0 [facility] [place] [id number] [address] Sep, Osteoarthritis of knees, bilateral M17.0 [facility] [place] [id number] [address] August, Arthritis M19.90 [facility] [place] [id number] [address] August, [facility] [place] [id number] [address] Jul, Hyperlipemia E78.5 [facility] [place] [address] [address] Jul, Encounter for well woman exam Z01.419 ; Morbid obesity E66.01 ; Encounter for screening for malignant neoplasm of cervix Z12.4 and Encounter for screening mammogram for breast cancer Z12.31 [facility] [place] [address] [address] Jul, Arthritis M19.90 ; Diabetes E11.9 ; Blood in urine R31.9 and UTI (urinary tract infection) N39.0 [facility] [place] [address] [address] Jul, [facility] [place] [id number] [address] Jun, Arthritis M19.90 [facility] [place] [id number] [address] May, Arthritis M19.90 [facility] [place] [address] [address] May, [facility] [place] [address], [place] [address] Apr, [facility] [place] [address] [address] Apr, Arthritis M19.90 ; Diabetes E11.9 and Morbid obesity E66.01 [facility] [place] [address] [address] Apr, [facility] [place] [address], [place] [address] Apr, Dyspareunia N94.1 [facility] [place] [address], [place] [address] Apr, [facility] [place] [address] [address] Apr, [facility] [place] [address], [place] [address] Apr, Osteoarthritis of knees, bilateral M17.0 [facility] [place] [id number] [place] [address] Apr, Diabetes E11.9 and CAD (coronary artery disease) I25.10 [facility] [place] [id number] [place] [address] Mar, [facility] [place] [id number] [place] [address] Feb, [facility] [place] [id number] [place] [address] Jan, [facility] [place] [id number] [place] [address] Jan, [facility] [place] [id number] [place] [address] Jan, [facility] [place] [id number] [place] [address] Jan, Osteoarthritis of knees, bilateral M17.0 [facility] [place] [address] [address] 30 Dec, 2014 [facility] [place] [address] [address] 17 Dec, 2014 [facility] [place] [id number] [place] [address] Dec, [facility] [place] [address] [address] 08 Dec, 2014 Diabetes mellitus 250.00 and UTI (urinary tract infection) 599.0 [facility] [place] [address], [place] [address] Dec, [facility] [place] [address], [place] [address] Nov, [facility] [place] [facility] [address] [id number] [place] [address] Oct, [facility] [place] [facility] [address] [id number] [place] [address] Oct, [facility] [place] [facility] [address] [id number] [place] [address] Oct, [facility] [place] [facility] [address] [id number] [place] [address] Oct, [facility] [place] [facility] [address] [id number] [place] [address] Oct, [facility] [place] [facility] [address] [id number] [place] [address] Sep, [facility] [place] [facility] [address] [id number] [place] [address] August, [facility] [place] [facility] [address] [id number] [place] [address] August, [facility] [place] [facility] [address] [id number] [place] [address] August, [facility] [place] [facility] [address] [id number] [place] [address] Jul, [facility] [place] [facility] [address] [id number] [place] [address] Jul, [facility] [place] [facility] [address] [id number] [place] [address] Jul, [facility] [place] [facility] [address] [id number] [place] [address] Jun, [facility] [place] [facility] [address] [id number] [place] [address] Jun, [facility] [place] [facility] [address] [id number] [place] [address] Jun, [facility] [place] [facility] [address] [id number] [place] [address] Jun, [facility] [place] [facility] [address] [id number] [place] [address] Jun, [facility] [place] [facility] [address] [facility] [id number] [place] [address] Jun, [facility] [place] [facility] [address] [facility] [id number] [place] [address] Jun, [facility] [place] [facility] [address] [facility] [id number] [place] [address] Jun, [facility] [place] [facility] [address] [facility] [id number] [place] [address] May, [facility] [place] [facility] [address] [facility] [id number] [place] [address] May, 2014 [facility] [place] [facility] [address] [facility] [id number] [place] [address] May, 2014 [facility] [place] [facility] [address] [facility] [id number] [place] [address] May, 2014 [facility] [place] [facility] [address] [facility] [id number] [place] [address] May, 2014 [facility] [place] [facility] [address] [facility] [id number] [place] [address] May, 2014 [facility] [place] [facility] [address] [facility] [id number] [place] [address] May, 2014 [facility] [place] [facility] [address] [facility] [id number], [place] [address] May, 2014 [facility] [place] [facility] [address] [facility] [id number] [place] [address] May, 2014 [facility] [place] [facility] [address] [facility] [id number], [place] [address] May, 2014 [facility] [place] [facility] [address] [facility] [id number], [place] [address] May, [facility] [place] [facility] [address] [id number] [place] [address] May, [facility] [place] [facility] [address] [id number] [place] [address] Apr, [facility] [place] [facility] [address] [id number] [place] [address] Apr, [facility] [place] [facility] [address] [id number] [place] [address] Mar, [facility] [place] [facility] [address] [id number] [place] [address] Mar, [facility] [place] [facility] [address] [id number] [place] [address] Mar, [facility] [place] [facility] [address] [id number] [place] [address] Mar, [facility] [place] [facility] [address] [id number] [place] [address] Mar, [facility] [place] [facility] [address] [id number] [place] [address] Mar, [facility] [place] [facility] [address] [id number] [place] [address] Feb, [facility] [place] [facility] [address] [id number] [place] [address] Feb, [facility] [place] [facility] [address] [id number] [place] [address] Feb, [facility] [place] [facility] [address] [id number] [place] [address] Feb, [facility] [place] [facility] [address] [id number] [place] [address] Feb, [facility] [place] [facility] [address] [id number] [place] [address] Feb, [facility] [place] [facility] [address] [id number], [place] [address] Feb, [facility] [place] [facility] [address] [id number] [place] [address] Feb, [facility] [place] [facility] [address] [id number] [place] [address] Feb, [facility] [place] [facility] [address] [id number] [place] [address] Jan, [facility] [place] [facility] [address] [id number] [place] [address] Jan, [facility] [place] [facility] [address] [id number] [place] [address] Jan, [facility] [place] [facility] [address] [id number] [place] [address] Jan, [facility] [place] [facility] [address] [id number] [place] [address] Jan, [facility] [place] [facility] [address] [id number] [place] [address] Jan, [facility] [place] [facility] [address] [id number] [place] [address] Jan, [facility] [place] [facility] [address] [id number] [place] [address] Jan, [facility] [place] [facility] [address] [id number], [place] [address] Jan, [facility] [place] [facility] [address] [id number], [place] [address] Jan, [facility] [place] [facility] [address] [id number] [place] [address] 19 Dec, 2013 [facility] [place] [facility] [address] [id number] [place] [address] 19 Dec, 2013 [facility] [place] [facility] [address] [id number] [place] [address] 10 Dec, 2013 [facility] [place] [facility] [address] [id number] [place] [address] Dec, [facility] [place] [facility] [address] [id number] [place] [address] Nov, [facility] [place] [facility] [address] [id number] [place] [address] Nov, [facility] [place] [facility] [address] [id number] [place] [address] Nov, [facility] [place] [facility] [address] [id number] [place] [address] Nov, [facility] [place] [facility] [address] [id number] [place] [address] Nov, [facility] [place] [facility] [address] [id number] [place] [address] Nov, [facility] [place] [facility] [address] [id number] [place] [address] Nov, [facility] [place] [facility] [address] [id number] [place] [address] Nov, [facility] [place] [facility] [address] [id number] [place] [address] Nov, [facility] [place] [facility] [address] [id number] [place] [address] Oct, [facility] [place] [facility] [address] [id number] [place] [address] Oct, [facility] [place] [facility] [address] [id number] [place] [address] Sep, [facility] [place] [facility] [address] [id number] [place] [address] Sep, [facility] [place] [facility] [address] [id number] [place] [address] Sep, [facility] [place] [facility] [address] [id number] [place] [address] Sep, [facility] [place] [facility] [address] [id number] [place] [address] Sep, [facility] [place] [facility] [address] [id number] [place] [address] Sep, [facility] [place] [facility] [address] [id number] [place] [address] Sep, [facility] [place] [facility] [address] [id number] [place] [address] Sep, [facility] [place] [facility] [address] [id number] [place] [address] Sep, [facility] [place] [facility] [address] [id number] [place] [address] Sep, [facility] [place] [facility] [address] [id number] [place] [address] Sep, [facility] [place] [facility] [address] [id number] [place] [address] Sep, [facility] [place] [facility] [address] [id number] [place] [address] Sep, [facility] [place] [facility] [address] [id number] [place] [address] Sep, [facility] [place] [facility] [address] [id number] [place] [address] August, [facility] [place] [facility] [address] [id number] [place] [address] August, [facility] [place] [facility] [address] [id number] [place] [address] August, [facility] [place] [facility] [address] [id number] [place] [address] August, [facility] [place] [facility] [address] [id number] [place] [address] Jul, [facility] [place] [facility] [address] [id number] [place] [address] Jul, [facility] [place] [facility] [address] [id number] [place] [address] Jul, [facility] [place] [facility] [address] [id number] [place] [address] Jul, [facility] [place] [facility] [address] [id number] [place] [address] Jun, [facility] [place] [facility] [address] [id number] [place] [address] Jun, [facility] [place] [facility] [address] [id number] [place] [address] May, [facility] [place] [facility] [address] [id number] [place] [address] May, [facility] [place] [facility] [address] [id number] [place] [address] May, [facility] [place] [facility] [address] [id number] [place] [address] May, [facility] [place] [facility] [address] [id number] [place] [address] May, [facility] [place] [facility] [address] [id number] [place] [address] May, [facility] [place] [facility] [address] [id number] [place] [address] May, [facility] [place] [facility] [address] [id number] [place] [address] May, [facility] [place] [facility] [address] [id number] [place] [address] May, [facility] [place] [facility] [address] [id number] [place] [address] Apr, [facility] [place] [facility] [address] [id number] [place] [address] Apr, [facility] [place] [facility] [address] [id number] [place] [address] Apr, [facility] [place] [facility] [address] [id number] [place] [address] Apr, [facility] [place] [facility] [address] [id number] [place] [address] Apr, [facility] [place] [facility] [address] [id number] [place] [address] Mar, [facility] [place] [facility] [address] [id number] [place] [address] Mar, [facility] [place] [facility] [address] [id number] [place] [address] Feb, [facility] [place] [facility] [address] [id number] [place] [address] Feb, [facility] [place] [facility] [address] [id number] [place] [address] Feb, [facility] [place] [facility] [address] [id number] [place] [address] Feb, [facility] [place] [facility] [address] [id number], [place] [address] Feb, [facility] [place] [facility] [address] [id number], [place] [address] Feb, [facility] [place] [facility] [address] [id number], [place] [address] Feb, [facility] [place] [facility] [address] [id number] [place] [address] Feb, [facility] [place] [facility] [address] [id number], [place] [address] Feb, [facility] [place] [facility] [address] [id number], [place] [address] Jan, [facility] [place] [facility] [address] [id number] [place] [address] Jan, [facility] [address] [id number] [place] [address] Jan, [facility] [place] [facility] [address] [id number] [place] [address] Jan, [facility] [place] [facility] [address] [id number] [place] [address] Jan, [facility] [place] [facility] [address] [address] [id number] [place] [address] Dec, [facility] [place] [facility] [address] [id number] [place] [address] Dec, [facility] [place] [facility] [address] [id number] [place] [address] Nov, [facility] [place] [facility] [address] [id number] [place] [address] Nov, [facility] [place] [facility] [address] [id number] [place] [address] Oct, [facility] [place] [facility] [address] [id number] [place] [address] Oct, [facility] [place] [facility] [address] [id number] [place] [address] Oct, [facility] [place] [facility] [address] [id number] [place] [address] Sep, [facility] [place] [facility] [address] [id number] [place] [address] Sep, [facility] [place] [facility] [address] [id number] [place] [address] Sep, [facility] [place] [facility] [address] [id number] [place] [address] August, [facility] [place] [facility] [address] [id number] [place] [address] August, [facility] [place] [facility] [address] [id number] [place] [address] August, [facility] [address] [id number] [place] [address] August, [facility] [place] [facility] [address] [id number] [place] [address] Jul, [facility] [place] [facility] [address] [id number] [place] [address] Jun, [facility] [place] [facility] [address] [id number] [place] [address] Jun, [facility] [place] [facility] [address] [id number] [place] [address] Jun, [facility] [address] [id number] [place] [address] May, [facility] [address] [id number] [place] [address] May, [facility] [place] [facility] [address] [id number] [place] [address] May, [facility] [address] [id number] [place] [address] May, [facility] [place] [facility] [address] [id number] [place] [address] Apr, [facility] [place] [facility] [address] [id number] [place] [address] Apr, [facility] [place] [facility] [address] [id number] [place] [address] Apr, [facility] [place] [facility] [address] [id number] [place] [address] 14 Apr, 2012 [facility] [place] [facility] [address] [id number] [place] [address] Apr, [facility] [place] [facility] [address] [id number], [place] [address] Mar, [facility] [place] [facility] [address] [id number] [place] [address] Mar, [facility] [place] [facility] [address] [id number] [place] [address] Mar, [facility] [place] [facility] [address] [facility] [id number] [place] [address] Mar, [facility] [place] [facility] [address] [id number] [place] [address] Mar, [facility] [place] [facility] [address] [id number] [place] [address] Mar, [facility] [place] [facility] [address] [id number] [place] [address] Mar, [facility] [place] [facility] [address] [id number] [place] [address] Feb, [facility] [place] [facility] [address] [id number] [place] [address] Feb, [facility] [place] [facility] [address] [facility] [id number] [place] [address] Feb, [facility] [place] [facility] [address] [facility] [id number] [place] [address] Feb, [facility] [place] [facility] [address] [facility] [id number], [place] [address] Feb, [facility] [place] [facility] [address] [facility] [id number], [place] [address] Feb, [facility] [place] [facility] [address] [id number] [place] [address] Feb, [facility] [place] [facility] [address] [facility] [id number], [place] [address] Feb, [facility] [place] [facility] [address] [facility] [id number] [place] [address] Jan, [facility] [place] [facility] [address] [id number] [place] [address] 24 Jan, 2012 [facility] [place] [facility] [address] [id number] [place] [address] Jan, [facility] [place] [facility] [address] [id number] [place] [address] Jan, [facility] [place] [facility] [address] [id number] [place] [address] 27 Dec, 2011 [facility] [place] [facility] [address] [id number] [place] [address] 25 Dec, 2011 [facility] [place] [facility] [address] [id number] [place] [address] 18 Dec, 2011 [facility] [place] [facility] [address] [id number] [place] [address] 13 Dec, 2011 [facility] [place] [facility] [address] [id number] [place] [address] 11 Dec, 2011 [facility] [place] [facility] [address] [id number] [place] [address] Oct, [facility] [place] [facility] [address] [id number] [place] [address] Oct, [facility] [place] [facility] [address] [id number] [place] [address] Sep, [facility] [place] [facility] [address] [id number] [place] [address] Sep, [facility] [place] [facility] [address] [id number] [place] [address] August, [facility] [place] [facility] [address] [id number] [place] [address] August, [facility] [place] [facility] [address] [id number] [place] [address] Jul, [facility] [place] [facility] [address] [id number] [place] [address] 28 Jun, 2011 [facility] [place] [facility] [address] [id number] [place] [address] 23 Jun, 2011 [facility] [place] [facility] [address] [id number] [place] [address] 23 Jun, 2011 [facility] [place] [facility] [address] [id number] [place] [address] 19 Jun, 2011 [facility] [place] [facility] [address] [id number] [place] [address] 2011 [facility] [place] [facility] [address] [id number] [place] [address] 24 May, 2011 [facility] [place] [facility] [address] [id number] [place] [address] 22 May, 2011 [facility] [place] [facility] [address] [id number] [place] [address] 20 May, 2011 [facility] [place] [facility] [address] [id number] [place] [address] 14 May, 2011 [facility] [place] [facility] [address] [id number] [place] [address] 13 May, 2011 [facility] [place] [facility] [address] [id number] [place] [address] 03 May, 2011 [facility] [place] [facility] [address] [id number] [place] [address] May, [facility] [place] [facility] [address] [id number] [place] [address] May, [facility] [place] [facility] [address] [id number] [place] [address] Apr, [facility] [place] [facility] [address] [id number] [place] [address] Mar, [facility] [place] [facility] [address] [id number] [place] [address] Mar, [facility] [place] [facility] [address] [facility] [id number], [place] [address] Mar, [facility] [place] [address] [facility] [id number], [place] [address] Mar, [facility] [place] [address] [facility] [id number], [place] [address] Mar, [facility] [place] [address] [facility] [id number], [place] [address] Jan, [facility] [place] [address] [facility] [id number], [place] [address] Jan, [facility] [place] [address] [facility] [id number], [place] [address] Jan, [facility] [place] [address] [facility] [id number], [place] [address] August, [facility] [place] [id number], [place] [address] Mar, [facility] [place] [address] [facility] [id number], [place] [address] Feb, [facility] [place] [address] [facility] [id number], [place] [address] Jan, [facility] [place] [address] [id number], [place] [address] Jan, IMMUNIZATIONS No Known Immunizations SOCIAL HISTORY [...]
--- OUTSIDE RECORDS SUMMARY | 2018-11-10 16:22 | XMS REPORT | Continuity of Care Document ---
Author Organization Unknown Address Unknown Phone Unavailable Allergies Active Description Code Type Severity Reaction [...] BECCA CACERES, KATIE 278.01 MORBID OBESITY 05/26/2009 KATIE HUDSON MD 428.0 CONGESTIVE HEART FAILURE, UNSPECIFIED 05/26/2009 250.02 [...] MIRZA DO 250.02 DIABETES II UNCONTROLLED 05/26/2009 MIRZA DO, BRITTANY K 278.01 MORBID OBESITY 05/26/2009 BRITTANY MIRZA DO K 428.0 CONGESTIVE HEART FAILURE, UNSPECIFIED 05/26/2009 KATIE HUDSON MD 250.02 DIABETES II UNCONTROLLED 05/26/2009 BECCA CACERES, KATIE 278.01 MORBID OBESITY 05/26/2009 BECCA CACERES, KATIE 428.0 CONGESTIVE HEART FAILURE, UNSPECIFIED 05/26/2009 YUKI HERNADEZ BRITTANY K 250.02 DIABETES II UNCONTROLLED 05/26/2009 DEVYN MIRZA DOA K 278.01 MORBID OBESITY 05/26/2009 BRITTANY MIRZA DO K 428.0 CONGESTIVE HEART FAILURE, UNSPECIFIED 05/26/2009 KATIE HUDSON MD 250.02 DIABETES II UNCONTROLLED 05/26/2009 BECCA CACERES, KATIE 278.01 MORBID OBESITY 05/26/2009 BECCA CACERES, KATIE 428.0 CONGESTIVE HEART FAILURE, UNSPECIFIED 05/26/2009 KATIE HUDSON MD 250.02 DIABETES II UNCONTROLLED 05/26/2009 BECCA CACERES, KATIE 278.01 MORBID OBESITY 05/26/2009 BECCA CACERES, KATIE 428.0 CONGESTIVE HEART FAILURE, UNSPECIFIED 05/26/2009 DEVYN MIRZA DOA K 250.02 DIABETES II UNCONTROLLED 05/26/2009 DEVYN MIRZA DOA K 278.01 MORBID OBESITY 05/26/2009 BRITTANY MIRZA DO K 428.0 CONGESTIVE HEART FAILURE, UNSPECIFIED 05/26/2009 KATIE HUDSON MD 250.02 DIABETES II UNCONTROLLED 05/26/2009 BECCA CACERES, KATIE 278.01 MORBID OBESITY 05/26/2009 KATIE HUDSON MD 428.0 CONGESTIVE HEART FAILURE, UNSPECIFIED 05/26/2009 KATIE HUDSON MD 250.02 DIABETES II UNCONTROLLED 05/26/2009 BECCA CACERES, KATIE 278.01 MORBID OBESITY 05/26/2009 BECCA CACERES, KATIE 428.0 CONGESTIVE HEART FAILURE, UNSPECIFIED 05/26/2009 KATIE HUDSON MD 250.02 DIABETES II UNCONTROLLED 05/26/2009 BECCA CACERES, KATIE 278.01 MORBID OBESITY 05/26/2009 BECCA CACERES, KATIE 428.0 CONGESTIVE HEART FAILURE, UNSPECIFIED 06/23/2009 DEVYN MIRAZ DOA K 250.00 DIABETES II CONTROLLED 06/23/2009 DEVYN MIRZA DOA K 272.4 HYPERLIPIDEMIA UNSPECIFIED 06/23/2009 DEVYN MIRZA DOA K 599.0 Urinary Tract Infection 06/23/2009 BECCA [...] Urinary Tract Infection 06/23/2009 BRITTANY MIRZA DO K 250.00 DIABETES II CONTROLLED 06/23/2009 BRITTANY MIRZA DO K 272.4 HYPERLIPIDEMIA UNSPECIFIED 06/23/2009 BRITTANY MIRZA DO K 599.0 Urinary Tract Infection 06/23/2009 KATIE HUDSON MD 250.00 DIABETES II CONTROLLED 06/23/2009 BECCA CACERES, KATIE 272.4 HYPERLIPIDEMIA UNSPECIFIED 06/23/2009 BECCA CACERES, KATIE 599.0 Urinary Tract Infection 06/23/2009 BRITTANY MIRZA DO K 250.00 DIABETES II CONTROLLED 06/23/2009 BRITTANY MIRZA DO K 272.4 HYPERLIPIDEMIA UNSPECIFIED 06/23/2009 BRITTANY MIRZA DO K 599.0 Urinary Tract Infection 06/23/2009 KATIE [...] HERNADEZ, BRITTANY Vazquez 272.4 HYPERLIPIDEMIA UNSPECIFIED 06/23/2009 YUKI HERNADEZ, BRITTANY Vazquez 599.0 Urinary Tract Infection 06/23/2009 BECCA CACERES, [...] Unspecified Arthropathy Site Unspecified 08/31/2010 KATIE HUDSON MD6.90 Unspecified Arthropathy Site Unspecified 08/31/2010 KATIE HUDSON [...] 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 11/16/2010 BRITTANY MIRZA DO V72.31 Transfer Station Attendant Exam, Routine 11/16/2010 BECCA CACERES, KATIE V72.31 Transfer Station Attendant Exam, Routine 11/16/2010 V72.31 Transfer Station Attendant Exam, Routine 11/16/2010 BECCA CACERES, KATIE V72.31 Transfer Station Attendant Exam, Routine 11/16/2010 BECCA CACERES, KATIE V72.31 Transfer Station Attendant Exam, Routine 11/16/2010 BECCA CACERES, KATIE V72.31 Transfer Station Attendant Exam, Routine 11/16/2010 KATIE HUDSON MD V72.31 Transfer Station Attendant Exam, Routine 11/16/2010 BRITTANY MIRZA DO V72.31 Transfer Station Attendant Exam, Routine 11/16/2010 KATIE HUDSON MD V72.31 Transfer Station Attendant Exam, Routine 11/16/2010 BRITTANY MIRZA DO V72.31 Transfer Station Attendant Exam, Routine 11/16/2010 KATIE HUDSON MD V72.31 Transfer Station Attendant Exam, Routine 11/16/2010 KATIE HUDSON MD V72.31 Transfer Station Attendant Exam, Routine 11/16/2010 BRITTANY MIRZA DO V72.31 Transfer Station Attendant Exam, Routine 11/16/2010 KATIE HUDSON MD V72.31 Transfer Station Attendant Exam, Routine 11/16/2010 KATIE HUDSON MD V72.31 Transfer Station Attendant Exam, Routine 11/16/2010 KATIE HUDSON MD V72.31 Transfer Station Attendant Exam, Routine 01/25/2011 BRITTANY MIRZA DO V04.81 [...] 04/21/2011 BECCA CACERES, KATIE 414.00 CAD 08/19/2011 YUKI HERNADEZ, BRITTANY Vazquez 530.11 REFLUX ESOPHAGITIS 08/19/2011 BECCA CACERES, KATIE 530.11 REFLUX ESOPHAGITIS 08/19/2011 530.11 REFLUX ESOPHAGITIS 08/19/2011 BECCA CACERES, KATIE 530.11 REFLUX ESOPHAGITIS 08/19/2011 BECCA CACERES, KATIE 530.11 REFLUX ESOPHAGITIS 08/19/2011 BECCA CACERES, KATIE 530.11 REFLUX ESOPHAGITIS 08/19/2011 BECCA CCAERES, KATIE 530.11 REFLUX ESOPHAGITIS 08/19/2011 BRITTANY MIRZA [...] HUDSON MD8.1 DYSURIA 03/16/2012 788.1 DYSURIA 03/16/2012 BECCA CACERES, KATIE Brito8.1 DYSURIA 03/16/2012 KATIE HUDSON MD8.1 DYSURIA 03/16/2012 [...] BECCA CACERES, KATIE 356.9 NEUROPATHY 04/18/2012 BECCA CACERSE, KATIE 356.9 NEUROPATHY 04/18/2012 KATIE HUDSON MD 356.9 NEUROPATHY 04/18/2012 BRITTANY MIRZA DO 356.9 NEUROPATHY 04/18/2012 BECCA CACERES, KATIE 356.9 NEUROPATHY 04/18/2012 BRITTANY MIRZA DO 356.9 NEUROPATHY 04/18/2012 KATIE HUDSON MD 356.9 NEUROPATHY 04/18/2012 BECCA CACERES, KATIE 356.9 NEUROPATHY 04/18/2012 BRITTANY MIRZA DO 356.9 NEUROPATHY 04/18/2012 KATIE HUDSON MD 356.9 NEUROPATHY 04/18/2012 KATIE HUDSON MD 356.9 NEUROPATHY 04/18/2012 KATIE HUDSON MD 356.9 NEUROPATHY 10/25/2012 525.9 UNSPECIFIED DISORDER OF [...] Procedures Code [place] [address] ROUTINE VENIPUNCTURE 03/16/2012 54724 UA W/ CULTURE IF INDICATED 03/16/2012 38650 URINE DRUG SCREEN (IN-HOUSE) 03/16/2012 42211 A1C (IN-HOUSE) 03/16/2012 00173 CBC 03/16/2012 83583 CMP 03/16/2012 32062 LIPID PANEL 03/16/2012 [id number] GFR CALC (RESULT ONLY) 03/16/2012 15691 CULTURE URINE 03/18/2012 53223 JOINT INJECTION- LARGE JOINT (SPECIFY MEDCIN DESCRIPTION) 03/22/2012 05180 ROUTINE VENIPUNCTURE 03/08/2013 09425 A1C (IN-HOUSE) 03/08/2013 [id number] GFR CALC (RESULT ONLY) 03/08/2013 81162 CMP 03/08/2013 48328 LIPID PANEL 03/08/2013 33946 JOINT INJECTION- LARGE JOINT (SPECIFY MEDCIN DESCRIPTION) 06/06/2013 62444 UA W/ CULTURE IF INDICATED 06/06/2013 26541 CULTURE URINE 06/08/2013 [facility] 09/26/2013 47873 A1C (IN-HOUSE) 09/26/2013 11205 UA W/ CULTURE IF INDICATED 09/26/2013 14864 CULTURE URINE 09/28/2013 34974 OXIMETRY - OVERNIGHT 10/07/2013 91171 A1C (IN-HOUSE) 02/06/2014 25418 JOINT INJECTION- LARGE JOINT (SPECIFY MEDCIN DESCRIPTION) 02/06/2014 J1040 DEPO MEDROL 80 MG INJ 02/06/2014 59204 ROUTINE VENIPUNCTURE 03/10/2014 0207137 GFR CALC (RESULT ONLY) 03/10/2014 88480 CMP 03/10/2014 Results Test Result Range Comp. [...] ALT (SGPT) 25 IU/L 0-32 Microalb/Creat Ratio, Rand Ur - 06/03/16 08:04 Creatinine, Urine 184.8 mg/dL Not Estab. Microalbumin, Urine 56.6 ug/mL Not Estab. Microalb/Creat Ratio 30.6 mg/g creat 0.0-30.0 Urine Culture, Routine - 06/03/16 08:04 Urine Culture, Routine Note Urine Culture, Routine - 01/26/17 15:01 Urine Culture, Routine Note CULTURE, URINE - 01/26/17 15:01 Urine Culture, Routine Final report NRG Result 1 Escherichia coli NRG Antimicrobial Susceptibility NRG [facility] - 10/06/17 16:29 GLUCOSE 121 mg/dL 65-99 UREA NITROGEN (BUN) 23 mg/dL 7-25 CREATININE 0.90 mg/dL 0.50-0.99 eGFR NON-AFR. UZBEK 69 mL/min/1.73m2 > OR=60 eGFR 79 mL/min/1.73m2 [...] 9.2 fL 7.5-12.5 ABSOLUTE NEUTROPHILS 4225 cells/uL 1847-8799 ABSOLUTE LYMPHOCYTES 1697 cells/uL 850-3900 ABSOLUTE MONOCYTES 397 cells/uL 200-950 ABSOLUTE EOSINOPHILS 150 cells/uL 15-500 ABSOLUTE BASOPHILS 33 cells/uL 0-200 NEUTROPHILS 65 % NRG LYMPHOCYTES 26.1 % NRG MONOCYTES 6.1 % NRG EOSINOPHILS 2.3 % NRG BASOPHILS 0.5 % NRG Encounters ACCT No. Visit Date/Time Discharge Status Pt. Type Provider Facility Loc./Unit Complaint [id number] 06/12/2014 14:34:00 06/12/2014 23:59:59 [facility] Outpatient KATIE HUDSON MD [id number] 03/10/2014 13:49:00 03/10/2014 23:59:59 [facility] Outpatient KATIE HUDSON MD [id number] 02/06/2014 14:56:00 02/06/2014 23:59:59 CLS Outpatient BRITTANY MIRZA DO [id number] 02/06/2014 14:01:00 02/06/2014 23:59:59 CLS Outpatient KATIE HUDSON MD [id number] 09/26/2013 13:12:00 09/26/2013 23:59:59 [facility] Outpatient KATIE HUDSON MD [id number] 09/26/2013 13:12:00 09/26/2013 23:59:59 CLS Outpatient KATIE HUDSON MD [id number] 09/26/2013 12:43:00 09/26/2013 23:59:59 CLS Outpatient BRITTANY MIRZA DO [id number] 06/06/2013 14:02:00 06/06/2013 23:59:59 CLS Outpatient KATIE HUDSON MD [id number] 06/06/2013 13:04:00 06/06/2013 23:59:59 CLS Outpatient BRITTANY MIRZA DO [id number] 03/08/2013 14:26:00 03/08/2013 23:59:59 CLS Outpatient KATIE HUDSON MD [id number] 03/08/2013 14:26:00 03/08/2013 23:59:59 CLS Outpatient KATIE HUDSON MD [id number] 10/25/2012 15:19:00 10/25/2012 23:59:59 CLS Outpatient KATIE HUDSON MD [id number] 03/22/2012 13:00:00 03/22/2012 23:59:59 CLS Outpatient BRITTANY MIRZA DO [id number] 03/16/2012 10:37:00 03/16/2012 23:59:59 [place] [id number] 08/19/2011 09:42:00 08/19/2011 23:59:59 CLS Outpatient KATIE HUDSON MD [id number] 10/25/2012 15:19:00 Document Registration [id number] 01/15/2016 07:06:00 Document Registration [id number] 06/08/2016 03:06:00 Document Registration [id number] 01/29/2017 16:06:00 Document Registration [id number] 03/29/2018 14:20:00 03/29/2018 23:59:59 [facility] Outpatient BECCA CACERES[facility] [id number] 03/29/2018 14:20:00 Document Registration [id number] 10/06/2017 16:00:00 Document Registration [id number] 01/26/2017 15:00:00 Document Registration
--- NOTE | 2018-11-10 16:24 | ED General ---
General Chief Complaint: Abdominal/GI Problems History of Present Illness Date Seen by Provider: Nov 10, 2018 Time Seen by Provider: 16:19 Initial Comments Onset monday nausea and vomiting, unable to keep fluids and food down. Presentation is dry heaving, with constipation. Recurring episode with similar presentation a month ago. Records indicated UTI, however. Allergies and Home Medications Allergies Uncoded Allergies: IV CONTRAST (Adverse Reaction, Mild, HIVES, 09/17/18) Home Medications Amitriptyline HCl 50 Mg Tablet, 50 MG PO HS, (Reported) Amoxicillin/Potassium Clav 1 Each Tablet, 1 EACH PO TID Prescribed by: ALTHEA NEWMAN on 09/18/18 1015 Atorvastatin Calcium 40 Mg Tablet, 40 MG PO DAILY, (Reported) Besifloxacin Hydrochloride 5 Ml Drops.susp, 5 ML OP TID Prescribed by: ALTHEA NEWMAN on 09/18/18 1015 Cefuroxime Axetil 250 Mg Tablet, 250 MG PO BID Prescribed by: EVELYN SAMPSON on 10/19/18 1416 Ciprofloxacin HCl 500 Mg Tablet, 500 MG PO BID, (Reported) Eyelid Cleanser Comb No.7 1 Each Kit, 1 EACH TP TID Prescribed by: ALTHEA NEWMAN on 09/18/18 1015 Fluoxetine HCl 40 Mg Capsule, 40 MG PO BID, (Reported) Gabapentin 600 Mg Tablet, 600 MG PO TID, (Reported) Hydrocodone Bit/Acetaminophen 1 Tab Tab, 1 TAB PO Q4H PRN for MOD Prescribed by: ALTHEA NEWMAN on 09/18/18 1015 Ibuprofen 800 Mg Tablet, 800 MG PO TID PRN for PAIN-MILD, (Reported) Liraglutide 0.6 Mg/0.1 Ml Pen.injctr, 1.8 MG SC DAILY, (Reported) Losartan Potassium 50 Mg Tablet, 50 MG PO DAILY, (Reported) Metformin HCl 1,000 Mg Tablet, 1,000 MG PO BID, (Reported) Oxybutynin Chloride 5 Mg Tablet, 5 MG PO TID, (Reported) Sulfamethoxazole/Trimethoprim 1 Each Tablet, 1 EACH PO BID Prescribed by: KATIE TABARES on 11/10/182053 Patient Home Medication List Home Medication List Reviewed: Yes Review of Systems Review of Systems Constitutional: see HPI, malaise EENTM: no symptoms reported Respiratory: No cough; short of breath; No wheezing Cardiovascular: no symptoms reported; No edema, No syncope Gastrointestinal: abdominal pain, constipation; No diarrhea; loss of appetite, nausea, vomiting Genitourinary: no symptoms reported : No Musculoskeletal: No back pain; joint pain, muscle pain, muscle weakness Skin: no symptoms reported Psychiatric/Neurological: Anxiety, Depressed, Weakness Hematologic/Lymphatic: No Symptoms Reported Immunological/Allergic: no symptoms reported All Other Systems Reviewed Negative Unless Noted: Yes Past Kwnlfov-Rywfap-Pnznsf Hx Patient Social History Alcohol Use: Denies Use Recreational Drug Use: No Smoking Status: Former Smoker Type Used: Cigarettes 2nd Hand Smoke Exposure: No Recent Hopitalizations: No Physical Abuse: No Sexual Abuse: No Mistreated: No Fear: No Immunizations Up To Date Tetanus Booster (TDap): Unknown Date of Pneumonia Vaccine: Feb 13, 2018 Seasonal Allergies Seasonal Allergies: No Past Medical History Surgeries: Yes (CYSTOSCOPIES, DILITATION URETHRAL STRICTURE) Appendectomy, Bladder Surgery, Section, Eye Surgery, Gallbladder, Tonsillectomy, Tubal Ligation Respiratory: Yes COPD Cardiac: Yes High Cholesterol, Hypertension Neurological: Yes (CVA W/ R SIDED WEAKNESS) Neuropathy, Stroke Genitourinary: Yes (TRIGONITIS) UTI-Chronic Gastrointestinal: No Musculoskeletal: Yes (CHRONIC KNEE PAIN) Arthritis Endocrine: Yes (MORBID OBESITY) Diabetes, Insulin dep HEENT: No (prior cataract surgeries) Psychosocial: Yes Depression Integumentary: Yes (L ORBITAL CELLULITIS, 2018 CHEEK CELLULITIS) Recent Skin Changes Physical Exam Vital Signs Vital Signs - First Documented 11/10/18 11/10/18 16:01 20:33 Temp 97.2 Pulse 73 Resp 18 B/P (MAP) 139/78 (98) Pulse Ox 100 O2 Delivery Room Air Capillary Refill : Height, Weight, BMI Height: 5'6.00" Weight: 281lbs. 7.2oz. [id number]; 45.4 BMI Method:Stated General Appearance: Mild Distress HEENT: PERRL/EOMI, Normal ENT Inspection, Pharynx Normal, Moist Mucous Membranes Neck: Full Range of Motion, Normal Inspection, Supple Respiratory: Chest Non Tender, No Accessory Muscle Use, No Respiratory Distress Cardiovascular: Regular Rate, Rhythm, No Edema Gastrointestinal: Normal Bowel Sounds; No Distended, No Guarding, No Rebound; Tenderness Back: Normal Inspection; No CVA Tenderness (L), No CVA Tenderness (R) Extremity: Normal Capillary Refill, Normal Inspection, Normal Range of Motion, No Pedal Edema Neurologic/Psychiatric: Alert, Oriented x3, Depressed Affect Skin: Normal Color, Warm/Dry Lymphatic: No Adenopathy Focused Exam Lactate Level 11/10/18 16:29: Lactic Acid Level 2.69*H 11/10/18 18:55: Lactic Acid Level 2.65*H Progress/Results/Core Measures Suspected Sepsis SIRS Temperature: Pulse: Respiratory Rate: Laboratory Tests 11/10/18 16:10: White Blood Count 7.6 Blood Pressure / Mean: 11/10/18 16:29: Lactic Acid Level 2.69*H 11/10/18 18:55: Lactic Acid Level 2.65*H Laboratory Tests 11/10/18 16:10: Creatinine 0.92, Platelet Count 241, Total Bilirubin 0.3 Results/Orders Lab Results Laboratory Tests Test 11/10/18 16:10 11/10/18 16:29 11/10/18 17:30 11/10/18 18:55 Range/Units White Blood Count 7.6 4.3-11.0 10^3/uL Red Blood Count 4.10 L 4.35-5.85 10^6/uL Hemoglobin 13.5 11.5-16.0 G/DL Hematocrit 40 35-52 % Mean Corpuscular Volume 98 80-99 FL Mean Corpuscular Hemoglobin 33 25-34 PG Mean Corpuscular Hemoglobin Concent 34 32-36 G/DL Red Cell Distribution Width 12.8 10.0-14.5 % Platelet Count 241 130-400 10^3/uL Mean Platelet Volume 9.2 7.4-10.4 FL Neutrophils (%) (Auto) 42-75 % Lymphocytes (%) (Auto) 12-44 % Monocytes (%) (Auto) 0-12 % Eosinophils (%) (Auto) 0-10 % Basophils (%) (Auto) 0-10 % Neutrophils # (Auto) 1.8-7.8 X 10^3 Lymphocytes # (Auto) 1.0-4.0 X 10^3 Monocytes # (Auto) 0.0-1.0 X 10^3 Eosinophils # (Auto) 0.0-0.3 10^3/uL Basophils # (Auto) 0.0-0.1 10^3/uL Neutrophils % (Manual) 51 % Lymphocytes % (Manual) 28 % Monocytes % (Manual) 5 % Eosinophils % (Manual) 1 % Band Neutrophils 15 % Blood Morphology Comment NORMAL Sodium Level 137 135-145 MMOL/L Potassium Level 4.9 3.6-5.0 MMOL/L Chloride Level 98 98-107 MMOL/L Carbon Dioxide Level 23 21-32 MMOL/L Anion Gap 16 H 5-14 MMOL/L Blood Urea Nitrogen 23 H 7-18 MG/DL Creatinine 0.92 0.60-1.30 MG/DL Estimat Glomerular Filtration Rate > 60 BUN/Creatinine Ratio 25 Glucose Level 184 H 70-105 MG/DL Calcium Level 9.2 8.5-10.1 MG/DL Corrected Calcium 9.4 8.5-10.1 MG/DL Total Bilirubin 0.3 0.1-1.0 MG/DL Aspartate Amino Transf (AST/SGOT) 16 5-34 U/L Alanine Aminotransferase (ALT/SGPT) 15 0-55 U/L Alkaline Phosphatase 70 40-136 U/L Total Protein 7.9 6.4-8.2 GM/DL Albumin 3.8 3.2-4.5 GM/DL Lactic Acid Level 2.69 *H 2.65 *H 0.50-2.00 MMOL/L Urine Color YELLOW Urine Clarity CLOUDY Urine pH 6.0 5-9 Urine Specific [place] 1.010 L 1.016-1.022 Urine Protein NEGATIVE NEGATIVE Urine Glucose (UA) NEGATIVE NEGATIVE Urine Ketones NEGATIVE NEGATIVE Urine Nitrite POSITIVE H NEGATIVE Urine Bilirubin NEGATIVE NEGATIVE Urine Urobilinogen 0.2 NORMAL MG/DL Urine Leukocyte Esterase 2+ H NEGATIVE Urine RBC (Auto) 1+ H NEGATIVE Urine RBC 5-10 H /HPF Urine WBC >100 H /HPF Urine Squamous Epithelial Cells 0-2 /HPF Urine Crystals NONE /LPF Urine Bacteria LARGE H /HPF Urine Casts NONE /LPF Urine Mucus SMALL H /LPF Urine Culture Indicated YES My Orders Orders - CAROLANN-KATIE CRUMP MD Cbc And Manual Diff (11/10/18 16:20) Comprehensive Metabolic Panel (11/10/18 16:20) Promethazine Injection (Phenergan Injec (11/10/18 16:30) Lactic Acid Analyzer (11/10/18 16:23) Hs C Reactive Protein (11/10/18 16:10) Ns Iv 1000 Ml (Sodium Chloride 0.9%) (11/10/18 17:15) Ns Iv 1000 Ml (Sodium Chloride 0.9%) (11/10/18 17:02) Straight Cath For Spec.-Adult (11/10/18 17:17) Ua Culture If Indicated (11/10/18 17:34) Urine Culture (11/10/18 17:30) Levofloxacin 750 Mg/150 Ml Iv (Levaquin (11/10/18 18:30) Ns Iv 1000 Ml (Sodium Chloride 0.9%) (11/10/18 19:30) Medications Given in ED Current Medications Medications Dose Ordered Sig/Suzi Route Start Time Stop Time Status Last Admin Dose Admin Levofloxacin/ Dextrose 150 ml @ 100 mls/hr ONCE ONCE IV 11/10/18 18:30 11/10/18 19:59 DC 11/10/18 18:33 100 MLS/HR Promethazine HCl 25 mg ONCE ONCE IVP 11/10/18 16:30 11/10/18 16:31 DC 11/10/18 16:30 25 MG Sodium Chloride 1,000 ml @ 500 mls/hr Q2H ONCE IV 11/10/18 19:30 11/10/18 21:03 DC 11/10/18 19:34 500 MLS/HR Vital Signs/I&O 11/10/18 11/10/18 16:01 20:33 Temp 97.2 97.0 Pulse 73 67 Resp 18 18 B/P (MAP) 139/78 (98) 137/95 (109) Pulse Ox 100 96 O2 Delivery Room Air 11/10/18 23:59 Intake Total 2150 ml Balance 2150 ml Capillary Refill : Departure Impression Primary Impression: Urinary tract infection Disposition: 01 HOME, SELF-CARE Condition: Improved Departure-Patient Inst. Referrals: KATIE HUDSON MD (PCP/Family) Primary Care Physician Scripts Sulfamethoxazole/Trimethoprim (Bactrim Ds Tablet) 1 Each Tablet 1 EACH PO BID for 10 Days, #20 TAB 0 Refills Prov: KATIE BYERS MD 11/10/18 KATIE BYERS MD Nov 10, 2018 16:24
[2018-11-10] MEDS ORDERED: PROMETHAZINE INJ 25 MG/ML (PHENERGAN) AMP IVP ONE (16:30)
[2018-11-10 16:50] LABS: HEMATOCRIT 40 % (35-52); HEMOGLOBIN 13.5 G/DL (11.5-16.0); MEAN CORPUSCULAR HEMOGLOBIN 33 PG (25-34); MEAN CORPUSCULAR HGB CONC 34 G/DL (32-36); MEAN CORPUSCULAR VOLUME 98 FL (80-99); PLATELET COUNT 241 10^3/uL (130-400); RED CELL DISTRIBUTION WIDTH 12.8 % (10.0-14.5); WHITE BLOOD COUNT 7.6 10^3/uL (4.3-11.0)
[2018-11-10 16:51] LABS: MEAN PLATELET VOLUME 9.2 FL (7.4-10.4)
[2018-11-10 16:55] LABS: ALANINE AMINOTRANSFERASE 15 U/L (0-55); ALBUMIN 3.8 GM/DL (3.2-4.5); ALKALINE PHOSPHATASE 70 U/L (40-136); BILIRUBIN,TOTAL 0.3 MG/DL (0.1-1.0); BUN/CREATININE RATIO 25; CALCIUM 9.2 MG/DL (8.5-10.1); CARBON DIOXIDE 23 MMOL/L (21-32); CHLORIDE 98 MMOL/L (98-107); CREATININE SERUM 0.92 MG/DL (0.60-1.30); GFR ESTIMATED > 60; GLUCOSE 184 MG/DL (70-105); POTASSIUM 4.9 MMOL/L (3.6-5.0); SODIUM 137 MMOL/L (135-145); TOTAL PROTEIN 7.9 GM/DL (6.4-8.2)
[2018-11-10] MEDS ORDERED: NS IV 1000 ML 1,000 ML ONE (17:02)
[2018-11-10] MEDS: NS IV 1000 ML 1,000 ML IV SCH ×2 (17:10→18:24)
[2018-11-10 17:23] LABS: BAND NEUTROPHILS 15 %; EOSINOPHILS % (MANUAL) 1 %; LYMPHOCYTES % (MANUAL) 28 %; MONOCYTES % (MANUAL) 5 %; NEUTROPHILS % (MANUAL) 51 %; RBC MORPH NORMAL
[2018-11-10 17:47] LABS: BILIRUBIN,URINE NEGATIVE (NEGATIVE); CLARITY,URINE CLOUDY; COLOR,URINE YELLOW; GLUCOSE, URINE (UA) NEGATIVE (NEGATIVE); KETONES,URINE NEGATIVE (NEGATIVE); NITRITE,URINE POSITIVE (NEGATIVE); PROTEIN,URINE NEGATIVE (NEGATIVE)
[2018-11-10 17:48] LABS: BACTERIA,URINE LARGE /HPF; LEUKOCYTE ESTERASE ,URINE 2+ (NEGATIVE); SQUAMOUS EPITHELIAL CELL,UR 0-2 /HPF; UROBILINOGEN,URINE 0.2 MG/DL (NORMAL); WBC,URINE >100 /HPF
[2018-11-10] MEDS ORDERED: LEVOFLOXACIN 750 MG/150 ML IV 150 ML IV ONE (18:30)
--- NOTE | 2018-11-10 19:27 | NUR ---
pt. sleeping, aroused easily.
[2018-11-10] MEDS ORDERED: NS IV 1000 ML 1,000 ML IV ONE (19:30)
[2018-11-10 20:33] VITALS: BP 137/95
[2018-11-10] MEDS ORDERED: SULF1TAB35 PO (20:54)
--- NOTE | 2018-11-13 14:24 | NUR ---
PT IS IN ON APPROPRIATE FOR THE ORGANISM FOUND ON THE CULTURE REPORT. LEVOQUIN.
== END 2018-11-10 21:03 | disposition home or self-care (01) ==
LOC: EDUNIT# 16:00 → ER FS 16:01
DX: N39.0 Urinary tract infection, site not specified (principal); I10 Essential (primary) hypertension; E11.9 Type 2 diabetes mellitus without complications; J44.9 Chronic obstructive pulmonary disease, unspecified; E78.00 Pure hypercholesterolemia, unspecified; G62.9 Polyneuropathy, unspecified; E66.01 Morbid (severe) obesity due to excess calories; F32.9 Major depressive disorder, single episode, unspecified; Z86.73 Personal history of transient ischemic attack (TIA), and cerebral infarction without residual deficits; Z79.4 Long term (current) use of insulin; Z91.041 Radiographic dye allergy status; Z87.891 Personal history of nicotine dependence; Z90.49 Acquired absence of other specified parts of digestive tract; Z90.89 Acquired absence of other organs; Z98.51 Tubal ligation status
CPT/HCPCS: 36415; 51701; 80053; 81000; 83605; 85007; 85027; 86141; 87077; 87088; 87186

== ENCOUNTER 2018-11-17 20:22 | Observation (INO) | payer MEDICAID ==
[~2018-11-17] VITALS: Ht 167.6 cm; Wt 137.0 kg
[~2018-11-17 20:22] MED LIST changes: +SULF1TAB35 PO
[2018-11-17] MEDS ORDERED: NS IV 1000 ML 1,000 ML IV SCH (20:28)
[2018-11-17] MEDS ORDERED: NS IV 1000 ML 1,000 ML IV ONE (20:28)
[2018-11-17] MEDS ORDERED: fentaNYL INJECTION 100 MCG/2 ML AMP IVP ONE ×2 (20:30→22:00)
--- NOTE | 2018-11-17 20:36 | ED Fall/Injury ---
General Stated Complaint: R LEG PAIN Source: patient Exam Limitations: no limitations History of Present Illness Date Seen by Provider: Nov 17, 2018 Time Seen by Provider: 20:23 Initial Comments Patient presents to ER by EMS from [facility] with chief complaint that she has had 3 falls in the last 2 days. First time she fell getting out of the bathtub and called some family members who came over and picked her up. She then fell again later that night. She crawled to the bathroom and pulled herself up and was starting have some pain in her right leg when she put weight on it. She then fell a third time the following day and crawled to a chair where she sat until her home health nurse came and then called 911. The patient is a diabetic with a blood sugar of 127 per EMS. She denies any blood thinners. She did strike her head nor lose consciousness the second time she says. EMS said they gave her 50 g of fentanyl that her blood pressures been hovering around 100 systolic so they were cautious with giving her anymore. Patient has some bruising swelling around the left knee with pain there as well. She has no pain anywhere else. She gets around with a walker and her electric wheelchair. Patient denies a coronary history but says she does have a distant history of stroke with no residual weakness. Allergies and Home Medications Allergies Uncoded Allergies: IV CONTRAST (Adverse Reaction, Mild, HIVES, 09/17/18) Home Medications Amitriptyline HCl 50 Mg Tablet, 50 MG PO HS, (Reported) Amoxicillin/Potassium Clav 1 Each Tablet, 1 EACH PO TID Prescribed by: ALTHEA NEWMAN on 09/18/18 1015 Atorvastatin Calcium 40 Mg Tablet, 40 MG PO DAILY, (Reported) Besifloxacin Hydrochloride 5 Ml Drops.susp, 5 ML OP TID Prescribed by: ALTHEA NEWMAN on 09/18/18 1015 Cefuroxime Axetil 250 Mg Tablet, 250 MG PO BID Prescribed by: EVELYN SAMPSON on 10/19/18 1416 Ciprofloxacin HCl 500 Mg Tablet, 500 MG PO BID, (Reported) Eyelid Cleanser Comb No.7 1 Each Kit, 1 EACH TP TID Prescribed by: ALTHEA NEWMAN on 09/18/18 1015 Fluoxetine HCl 40 Mg Capsule, 40 MG PO BID, (Reported) Gabapentin 600 Mg Tablet, 600 MG PO TID, (Reported) Hydrocodone Bit/Acetaminophen 1 Tab Tab, 1 TAB PO Q4H PRN for MOD Prescribed by: ALTHEA NEWMAN on 09/18/18 1015 Ibuprofen 800 Mg Tablet, 800 MG PO TID PRN for PAIN-MILD, (Reported) Liraglutide 0.6 Mg/0.1 Ml Pen.injctr, 1.8 MG SC DAILY, (Reported) Losartan Potassium 50 Mg Tablet, 50 MG PO DAILY, (Reported) Metformin HCl 1,000 Mg Tablet, 1,000 MG PO BID, (Reported) Oxybutynin Chloride 5 Mg Tablet, 5 MG PO TID, (Reported) Sulfamethoxazole/Trimethoprim 1 Each Tablet, 1 EACH PO BID Prescribed by: KATIE TABARES on 11/10/182053 Patient Home Medication List Home Medication List Reviewed: Yes Review of Systems Review of Systems Constitutional: No chills, No diaphoresis, No fever Eyes: Denies Blindness, Denies Blurred Vision, Denies Drainage Ears, Nose, Mouth, Throat: denies ear pain, denies ear discharge Respiratory: No cough, No phlegm, No short of breath Cardiovascular: No chest pain; edema Gastrointestinal: No abdominal pain, No diarrhea, No nausea, No vomiting Past Cqwqmkc-Qvpwpf-Lnvnto Hx Patient Social History Alcohol Use: Denies Use Recreational Drug Use: No Smoking Status: Current Everyday Smoker Type Used: Cigarettes 2nd Hand Smoke Exposure: No Recent Foreign Travel: No Contact w/Someone Who Travel: No Recent Hopitalizations: No Immunizations Up To Date Tetanus Booster (TDap): Unknown Date of Pneumonia Vaccine: Feb 13, 2018 Seasonal Allergies Seasonal Allergies: No Past Medical History Surgeries: Yes (CYSTOSCOPIES, DILITATION URETHRAL STRICTURE) Appendectomy, Bladder Surgery, Section, Eye Surgery, Gallbladder, Tonsillectomy, Tubal Ligation Respiratory: Yes COPD Cardiac: Yes High Cholesterol, Hypertension Neurological: Yes (CVA W/ R SIDED WEAKNESS) Neuropathy, Stroke Genitourinary: Yes (TRIGONITIS) UTI-Chronic Gastrointestinal: No Musculoskeletal: Yes (CHRONIC KNEE PAIN) Arthritis Endocrine: Yes (MORBID OBESITY) Diabetes, Insulin dep HEENT: No (prior cataract surgeries) Psychosocial: Yes Depression Integumentary: Yes (L ORBITAL CELLULITIS, 2018 CHEEK CELLULITIS) Recent Skin Changes Physical Exam Vital Signs Vital Signs - First Documented 11/17/18 20:40 Temp 98.2 Pulse 73 Resp 20 B/P (MAP) 103/58 (73) Pulse Ox 99 Capillary Refill : Height, Weight, BMI Height: 5'6.00" Weight: 281lbs. 7.2oz. 127.697426ic; 45.4 BMI Method:Stated General Appearance: moderate distress, obese HEENT: PERRL/EOMI, normal ENT inspection, TMs normal, pharynx normal, other (atraumatic head without Crockett sign and raccoon eyes or hemotympanum) Neck: non-tender, full range of motion, supple, normal inspection Cardiovascular: normal peripheral pulses, regular rate, rhythm Respiratory: chest non-tender, lungs clear, normal breath sounds, no respiratory distress, no accessory muscle use Peripheral Pulses: 1+ Dorsalis Pedis (R), 1+ Left Dors-Pedis (L), 1+ Radial Pulses (R), 1+ Radial Pulses (L) Gastrointestinal: normal bowel sounds, non tender, soft 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, no motor/sensory deficits, alert, normal mood/affect, oriented x 3 Skin: warm/dry, ecchymosis (bilateral knees) [place]ura Coma Score Best Eye Response: (4) Open Spontaneously Best Verbal Response: (5) Oriented Best Motor Response: (6) Obeys Commands [place] Total: 15 Progress/Results/Core Measures Results/Orders Lab Results Laboratory Tests Test 11/17/18 20:28 11/17/18 20:37 11/17/18 20:53 11/17/18 22:42 Range/Units Glucometer 312 H 70-110 MG/DL White Blood Count 6.4 4.3-11.0 10^3/uL Red Blood Count 3.53 L 4.35-5.85 10^6/uL Hemoglobin 11.6 11.5-16.0 G/DL Hematocrit 34 L 35-52 % Mean Corpuscular Volume 98 80-99 FL Mean Corpuscular Hemoglobin 33 25-34 PG Mean Corpuscular Hemoglobin Concent 34 32-36 G/DL Red Cell Distribution Width 13.3 10.0-14.5 % Platelet Count 173 130-400 10^3/uL Mean Platelet Volume 9.5 7.4-10.4 FL Neutrophils (%) (Auto) 63 42-75 % Lymphocytes (%) (Auto) 26 12-44 % Monocytes (%) (Auto) 7 0-12 % Eosinophils (%) (Auto) 4 0-10 % Basophils (%) (Auto) 0 0-10 % Neutrophils # (Auto) 4.1 1.8-7.8 X 10^3 Lymphocytes # (Auto) 1.7 1.0-4.0 X 10^3 Monocytes # (Auto) 0.4 0.0-1.0 X 10^3 Eosinophils # (Auto) 0.2 0.0-0.3 10^3/uL Basophils # (Auto) 0.0 0.0-0.1 10^3/uL Prothrombin Time 14.8 H 12.2-14.7 SEC INR Comment 1.1 0.8-1.4 Activated Partial Thromboplast Time 30 24-35 SEC Sodium Level 134 L 135-145 MMOL/L Potassium Level 5.3 H 3.6-5.0 MMOL/L Chloride Level 107 98-107 MMOL/L Carbon Dioxide Level 15 L 21-32 MMOL/L Anion Gap 12 5-14 MMOL/L Blood Urea Nitrogen 35 H 7-18 MG/DL Creatinine 2.13 H 0.60-1.30 MG/DL Estimat Glomerular Filtration Rate 23 BUN/Creatinine Ratio 16 Glucose Level 131 H 70-105 MG/DL Calcium Level 8.5 8.5-10.1 MG/DL Corrected Calcium 9.2 8.5-10.1 MG/DL Magnesium Level 1.3 L 1.8-2.4 MG/DL Total Bilirubin 0.2 0.1-1.0 MG/DL Aspartate Amino Transf (AST/SGOT) 14 5-34 U/L Alanine Aminotransferase (ALT/SGPT) 11 0-55 U/L Alkaline Phosphatase 53 40-136 U/L Total Creatine Kinase 91 29-168 U/L Troponin I < 0.028 < 0.028 <0.028 NG/ML Total Protein 6.4 6.4-8.2 GM/DL Albumin 3.1 L 3.2-4.5 GM/DL Urine Color YELLOW Urine Clarity CLEAR Urine pH 5 5-9 Urine Specific Ada 1.015 L 1.016-1.022 Urine Protein 1+ H NEGATIVE Urine Glucose (UA) NEGATIVE NEGATIVE Urine Ketones NEGATIVE NEGATIVE Urine Nitrite NEGATIVE NEGATIVE Urine Bilirubin NEGATIVE NEGATIVE Urine Urobilinogen NORMAL NORMAL MG/DL Urine Leukocyte Esterase NEGATIVE NEGATIVE Urine RBC (Auto) NEGATIVE NEGATIVE Urine RBC RARE /HPF Urine WBC RARE /HPF Urine Squamous Epithelial Cells >50 H /HPF Urine Crystals NONE /LPF Urine Bacteria TRACE /HPF Urine Casts NONE /LPF Urine Mucus NEGATIVE /LPF Urine Culture Indicated NO My Orders Orders - PAYTON ISSA Ct Head/Cervical Spine Wo (11/17/18 20:28) Chest 1 View, Ap/Pa Only (11/17/18 20:28) Hip, Right, 2 Views (11/17/18 20:28) Cbc With Automated Diff (11/17/18 20:28) Comprehensive Metabolic Panel (11/17/18 20:28) Creatine Kinase (11/17/18 20:28) Magnesium (11/17/18 20:28) Protime With Inr (11/17/18 20:28) Partial Thromboplastin Time (11/17/18 20:28) Troponin I (11/17/18 20:28) Ua Culture If Indicated (11/17/18 20:28) Ed Iv/Invasive Line Start (11/17/18 20:28) Ns Iv 1000 Ml (Sodium Chloride 0.9%) (11/17/18 20:28) Ns Iv 1000 Ml (Sodium Chloride 0.9%) (11/17/18 20:28) Fentanyl Injection (Sublimaze Injection (11/17/18 20:30) Knee, 3 Views, Bilateral (11/17/18 20:28) Magnesium 1 Gm/100 Ml Ivpb (Magnesium [place] (11/17/18 21:15) Ct Chest/Abdomen/Pelvis Wo (11/17/18 22:00) Fentanyl Injection (Sublimaze Injection (11/17/18 22:00) Troponin I (11/17/18 22:16) Continuous Ekg Monitoring (11/17/18 22:16) Ekg Tracing (11/17/18 22:16) Medications Given in ED Current Medications Medications Dose Ordered Sig/Suzi Route Start Time Stop Time Status Last Admin Dose Admin Fentanyl Citrate 50 mcg ONCE ONCE IVP 11/17/18 20:30 11/17/18 20:34 DC 11/17/18 21:42 50 MCG Fentanyl Citrate 75 mcg ONCE ONCE IVP 11/17/18 22:00 11/17/18 22:02 DC 11/17/18 23:24 75 MCG Magnesium Sulfate/ Dextrose 100 ml @ 100 mls/hr ONCE ONCE IV 11/17/18 21:15 11/17/18 22:14 DC 11/17/18 21:50 100 MLS/HR Vital Signs/I&O 11/17/18 20:40 Temp 98.2 Pulse 73 Resp 20 B/P (MAP) 103/58 (73) Pulse Ox 99 Progress Progress Note : Time: 21:50 Progress Note The patient's demonstrating an acute kidney injury secondary to dehydration most likely due to immobilization and all the attendant electrolyte disorders. She has osteopenic-appearing bones with advanced osteoarthritis and so it is difficult to tell if the neck of the right femur is slightly fractured. CT of the pelvis without contrast is been ordered. IV fluids were given for an adjusted ideal body weight of 197 pounds, 2 L. Patient denies having any surgeries on her chest, bowels or having swallowed anything metallic like a mercado ring. Plan to get a CT of the chest abdomen pelvis without IV contrast; evaluate her right hip and pelvis as well as look for any other foreign bodies and get some idea either what this foreign body is and/or where it is. Initial ECG Impression Date: Nov 17, 2018 Initial ECG Impression Time: 22:27 Initial ECG Rate: 78 Initial ECG Rhythm: Normal Sinus Initial ECG Intervals: Normal Initial ECG Impression: Normal Comment No ST elevation or depression. Diagnostic Imaging Diagonstic Imaging: Xray Plain Films/CT/US/NM/MRI: chest Comments No acute cardiopulmonary process. There is a metallic mercado ring appearing object in the center of the chest which on the lateral seo coordinator view for the CT head and neck does appear to be deep in the chest. [facility], [place] NAME: MORALES WALKER [facility] REC#: [id number] PT STATUS: REG ER : 1955 PHYSICIAN: PAYTON ISSA MD ADMIT DATE: 11/17/18/ER Draft Date of Exam:11/17/18 CHEST 1 VIEW, AP/PA ONLY EXAMINATION: Chest radiograph, portable AP view. DATE: November 17, 2018 at 2119 hours. INDICATION: 63-year-old female, fall three days ago. Chest pain. COMPARISON: None available. FINDINGS: The mediastinum does appear somewhat wide. Especially if comparison imaging is not available to demonstrate stability, further evaluation with CT chest with intravenous contrast is recommended. There is no identified pneumothorax. There is no large pleural effusion. There are linear opacities in the left lung base most likely relating to atelectasis. There are mildly displaced right-sided rib fractures of unclear exact age. These are involving the right seventh, eighth and ninth ribs. IMPRESSION: 1. Age indeterminate fractures of the right seventh, eighth and ninth ribs. 2. The mediastinum does appear to be wide. If comparison imaging is not available to demonstrate stability, dedicated CT chest with intravenous contrast is recommended for further assessment. 3. Probable atelectasis in the lung base. Dictated on workstation # [id number] Dict: 11/17/182155 Trans: 11/17/182201 PJE [id number] Interpreted by: KANA BUNDY MD Electronically signed by: Reviewed: Reviewed by Me Diagonstic Imaging: Xray Plain Films/CT/US/NM/MRI: knee (and bilateral) Comments No acute osseous abnormalities. Osteoarthritis noted. [facility] [place] [place] NAME: MORALES WALKER [facility] REC#: [id number] PT STATUS: REG ER : 1955 PHYSICIAN: PAYTON ISSA MD ADMIT DATE: 11/17/18/ER Draft Date of Exam:11/17/18 KNEE, 3 VIEWS, BILATERAL EXAM: Right knee radiographs, 3 views. Left knee radiographs, 3 views. DATE: November 17, 2018. INDICATION: 63-year-old female, fall three days ago. Bilateral knee pain. COMPARISON: None. FINDINGS: There is no definite right or left knee joint effusion. There is end-stage tricompartmental arthritis of both knees with very prominent osteophyte formation. These are not weightbearing images although there does appear to be right genu varum. The bones are demineralized. There are technical limitations of the exam relating to difficulties with exposure. The bones appear somewhat demineralized. There is no obvious fracture. IMPRESSION: 1. Significantly technically limited exam. 2. No obvious fracture or knee joint effusion. 3. End-stage tricompartmental arthritis of both knees. Dictated on workstation # [id number] Dict: 11/17/182209 Trans: 11/17/182213 PJE [id number] Interpreted by: KANA BUNDY MD Electronically signed by: Reviewed: Reviewed by Ny Diagonstic Imaging: Xray Plain Films/CT/US/NM/MRI: hip (Right) Comments Possible subtle collapse of the surgical neck of the femur, right, closed, non displaced, non-angulated. [facility] [place] NAME: MORALES WALKER [facility] REC#: [id number] PT STATUS: REG ER : 1955 PHYSICIAN: PAYTON ISSA MD ADMIT DATE: 11/17/18/ER Draft Date of Exam:11/17/18 HIP, RIGHT, 2 VIEWS EXAMINATION: Right hip radiographs, 2 views. COMPARISON: None. HISTORY: 63-year-old female, fall three days ago. Right hip pain. FINDINGS: There is likely material external to the patient which does limit the exam. There is no definite fracture identified. The hip is not dislocated. There is no pronounced joint space loss of the right hip. There are gas distended segments of bowel. The abdomen is incompletely imaged. IMPRESSION: 1. No definite acute fracture identified. 2. Abnormally distended gas-filled segments of bowel which is an abnormal but nonspecific bowel gas pattern. Recommend correlation and further evaluation, as needed. Dictated on workstation # [id number] Dict: 11/17/182154 Trans: 11/17/182199 PJE [id number] Interpreted by: KANA BUNDY MD Electronically signed by: Reviewed: Reviewed by Ny Diagonstic Imaging: CT (no IV contrast) Plain Films/CT/US/NM/MRI: c-spine, head Comments No intracranial hemorrhage, mass effect, midline shift or tumor. No calvarial or C-spine fracture/subluxation/misalignment. NAME: MORALES WALKER MED REC#: [id number] PT STATUS: REG ER : 1955 PHYSICIAN: PAYTON ISSA MD ADMIT DATE: 11/17/18/ER Draft Date of Exam:11/17/18 CT HEAD/CERVICAL SPINE WO PROCEDURE: CT head and CT cervical spine without contrast. TECHNIQUE: Multiple contiguous axial images were obtained through the brain and cervical spine without the use of intravenous contrast. Sagittal and coronal reformations through the cervical spine were then performed. Auto Exposure Controls were utilized during the CT exam to meet ALARA standards for radiation dose reduction. DATE: November 17, 2018. COMPARISON: CT exam, September 17, 2018. INDICATION: 63-year-old female, fall three days ago. Head and neck pain. FINDINGS: There is no identified skull fracture. The visualized portions of the paranasal sinuses, mastoid air cells and middle ears are well aerated. The ventricles and cerebral spinal fluid spaces are of normal size and configuration for the patient's age. There is no mass effect or midline shift. There is no acute intracranial hemorrhage. There is no abnormal extra-axial fluid collection. There is no identified facet joint subluxation or dislocation. There is no asymmetric widening of the cervical disc spaces. There is a mild reversal of the normal cervical lordosis. There are multilevel disc degenerative changes of the cervical spine with disc height loss most notable at C5-C6 and C6-C7. There are posterior disc osteophyte complexes at least at C4-C5, C5-C6 and C6-C7. CT is limited for assessment of disc pathology as well as additional non-bony causes of pathology within the spinal canal. There is no identified acute fracture of the cervical spine. Very limited visualized portions of the lung apices are grossly clear. There are significant limitations for soft tissue assessment and quantum mottle artifact. IMPRESSION: 1. No identified acute intracranial abnormality. 2. No identified acute posttraumatic abnormality of the cervical spine. Dictated on workstation # [id number] Dict: 11/17/18 2201 Trans: 11/17/18 2211 [facility] [id number] Interpreted by: KANA BUNDY MD Electronically signed by: Reviewed: Reviewed by Me Diagonstic Imaging: CT (no IV contrast) Plain Films/CT/US/NM/MRI: chest, abdomen, pelvis Comments No acute fracture. Bilateral lower lobe mild atelectasis versus infiltrates. Metallic density in the proximal esophagus which may be a foreign body, postoperative other etiology. Please correlate clinically. No acute fracture in the abdomen pelvis. Moderate colonic stool/air which may be ileus versus constipation. No mechanical bowel obstruction. No diverticulitis. Reviewed: Reviewed [place] Hawk Study, Reviewed by Me Departure Communication (Admissions) Time/Spoke to Admitting Phy: 23:20 Discussed the case lab imaging with Dr. Tijerina and he agrees with IV rehydration and admission. Consult Dr. Lugo, General Surgery about a foreign body esophagus. Time/Spoke to Consulting Phy: 23:25 Discussed the case with Dr. Lugo and he would like insulin anesthesia to come in to do upper endoscopy for foreign body retrieval. Dr. Lugo has visited with the patient. Impression Primary Impression: Acute kidney injury Additional Impressions: Dehydration Electrolyte and fluid disorder Falls Qualified Codes: W19.XXXA - Unspecified fall, initial encounter Delirium Traumatic ecchymosis of left knee Qualified Codes: S80.02XA - Contusion of left knee, initial encounter Acute right hip pain Foreign body in esophagus Qualified Codes: T18.108A - Unspecified foreign body in esophagus causing other injury, initial encounter Ileus Disposition: ADMITTED INPATIENT Condition: Stable Admissions Decision to Admit Reason: Admit from ER (General) Decision to Admit/Date: Nov 17, 2018 Time/Decision to Admit Time: 22:00 Departure-Patient Inst. Referrals: KATIE HUDSON MD (PCP/Family) Primary Care Physician PAYTON ISSA Nov 17, 2018 20:36
[2018-11-17 20:43] LABS: BASOPHILS % (AUTO) 0 % (0-10); EOSINOPHILS # (AUTO) 0.2 10^3/uL (0.0-0.3); EOSINOPHILS % (AUTO) 4 % (0-10); HEMATOCRIT 34 % (35-52); HEMOGLOBIN 11.6 G/DL (11.5-16.0); LYMPHOCYTES # (AUTO) 1.7 X 10^3 (1.0-4.0); LYMPHOCYTES % (AUTO) 26 % (12-44); MEAN CORPUSCULAR HEMOGLOBIN 33 PG (25-34); MEAN CORPUSCULAR HGB CONC 34 G/DL (32-36); MEAN CORPUSCULAR VOLUME 98 FL (80-99); MEAN PLATELET VOLUME 9.5 FL (7.4-10.4); MONOCYTES # (AUTO) 0.4 X 10^3 (0.0-1.0); MONOCYTES % (AUTO) 7 % (0-12); NEUTROPHILS # (AUTO) 4.1 X 10^3 (1.8-7.8); NEUTROPHILS % (AUTO) 63 % (42-75); PLATELET COUNT 173 10^3/uL (130-400); RED CELL DISTRIBUTION WIDTH 13.3 % (10.0-14.5); WHITE BLOOD COUNT 6.4 10^3/uL (4.3-11.0)
[2018-11-17 20:54] LABS: INR 1.1 (0.8-1.4); PROTHROMBIN TIME PATIENT 14.8 SEC (12.2-14.7)
[2018-11-17 21:00] LABS: BILIRUBIN,URINE NEGATIVE (NEGATIVE); CLARITY,URINE CLEAR; COLOR,URINE YELLOW; GLUCOSE, URINE (UA) NEGATIVE (NEGATIVE); KETONES,URINE NEGATIVE (NEGATIVE); LEUKOCYTE ESTERASE ,URINE NEGATIVE (NEGATIVE); NITRITE,URINE NEGATIVE (NEGATIVE); PH,URINE 5 (5-9); PROTEIN,URINE 1+ (NEGATIVE); UROBILINOGEN,URINE NORMAL (NORMAL)
[2018-11-17 21:03] LABS: ALANINE AMINOTRANSFERASE 11 U/L (0-55); ALBUMIN 3.1 GM/DL (3.2-4.5); ALKALINE PHOSPHATASE 53 U/L (40-136); BILIRUBIN,TOTAL 0.2 MG/DL (0.1-1.0); BUN/CREATININE RATIO 16; CALCIUM 8.5 MG/DL (8.5-10.1); CARBON DIOXIDE 15 MMOL/L (21-32); CHLORIDE 107 MMOL/L (98-107); CREATINE KINASE 91 U/L (29-168); CREATININE SERUM 2.13 MG/DL (0.60-1.30); GFR ESTIMATED 23; GLUCOSE 131 MG/DL (70-105); MAGNESIUM 1.3 MG/DL (1.8-2.4); POTASSIUM 5.3 MMOL/L (3.6-5.0); SODIUM 134 MMOL/L (135-145); TOTAL PROTEIN 6.4 GM/DL (6.4-8.2)
[2018-11-17] MEDS ORDERED: MAGNESIUM 1 GM/100 ML IVPB 100 ML IV ONE (21:15)
[2018-11-17 21:19] LABS: BACTERIA,URINE TRACE /HPF; RBC,URINE RARE /HPF; SQUAMOUS EPITHELIAL CELL,UR >50 /HPF; WBC,URINE RARE /HPF
--- NOTE | 2018-11-17 21:59 | Diagnostic Imaging Report ---
EXAMINATION: Right hip radiographs, 2 views. COMPARISON: None. HISTORY: 63-year-old female, fall three days ago. Right hip pain. FINDINGS: There is likely material external to the patient which does limit the exam. There is no definite fracture identified. The hip is not dislocated. There is no pronounced joint space loss of the right hip. There are gas distended segments of bowel. The abdomen is incompletely imaged. IMPRESSION: 1. No definite acute fracture identified. 2. Abnormally distended gas-filled segments of bowel which is an abnormal but nonspecific bowel gas pattern. Recommend correlation and further evaluation, as needed. Dictated by: Dictated on workstation # [id number]
--- NOTE | 2018-11-17 22:02 | Diagnostic Imaging Report ---
EXAMINATION: Chest radiograph, portable AP view. DATE: November 17, 2018 at 2119 hours. INDICATION: 63-year-old female, fall three days ago. Chest pain. COMPARISON: None available. FINDINGS: The mediastinum does appear somewhat wide. Especially if comparison imaging is not available to demonstrate stability, further evaluation with CT chest with intravenous contrast is recommended. There is no identified pneumothorax. There is no large pleural effusion. There are linear opacities in the left lung base most likely relating to atelectasis. There are mildly displaced right-sided rib fractures of unclear exact age. These are involving the right seventh, eighth and ninth ribs. IMPRESSION: 1. Age indeterminate fractures of the right seventh, eighth and ninth ribs. 2. The mediastinum does appear to be wide. If comparison imaging is not available to demonstrate stability, dedicated CT chest with intravenous contrast is recommended for further assessment. 3. Probable atelectasis in the lung base. Dictated by: Dictated on workstation # [id number]
--- NOTE | 2018-11-17 22:12 | Diagnostic Imaging Report ---
PROCEDURE: CT head and CT cervical spine without contrast. TECHNIQUE: Multiple contiguous axial images were obtained through the brain and cervical spine without the use of intravenous contrast. Sagittal and coronal reformations through the cervical spine were then performed. Auto Exposure Controls were utilized during the CT exam to meet ALARA standards for radiation dose reduction. DATE: November 17, 2018. COMPARISON: CT exam, September 17, 2018. INDICATION: 63-year-old female, fall three days ago. Head and neck pain. FINDINGS: There is no identified skull fracture. The visualized portions of the paranasal sinuses, mastoid air cells and middle ears are well aerated. The ventricles and cerebral spinal fluid spaces are of normal size and configuration for the patient's age. There is no mass effect or midline shift. There is no acute intracranial hemorrhage. There is no abnormal extra-axial fluid collection. There is no identified facet joint subluxation or dislocation. There is no asymmetric widening of the cervical disc spaces. There is a mild reversal of the normal cervical lordosis. There are multilevel disc degenerative changes of the cervical spine with disc height loss most notable at C5-C6 and C6-C7. There are posterior disc osteophyte complexes at least at C4-C5, C5-C6 and C6-C7. CT is limited for assessment of disc pathology as well as additional non-bony causes of pathology within the spinal canal. There is no identified acute fracture of the cervical spine. Very limited visualized portions of the lung apices are grossly clear. There are significant limitations for soft tissue assessment and quantum mottle artifact. IMPRESSION: 1. No identified acute intracranial abnormality. 2. No identified acute posttraumatic abnormality of the cervical spine. Dictated by: Dictated on workstation # [id number]
--- NOTE | 2018-11-17 22:15 | Diagnostic Imaging Report ---
EXAM: Right knee radiographs, 3 views. Left knee radiographs, 3 views. DATE: November 17, 2018. INDICATION: 63-year-old female, fall three days ago. Bilateral knee pain. COMPARISON: None. FINDINGS: There is no definite right or left knee joint effusion. There is end-stage tricompartmental arthritis of both knees with very prominent osteophyte formation. These are not weightbearing images although there does appear to be right genu varum. The bones are demineralized. There are technical limitations of the exam relating to difficulties with exposure. The bones appear somewhat demineralized. There is no obvious fracture. IMPRESSION: 1. Significantly technically limited exam. 2. No obvious fracture or knee joint effusion. 3. End-stage tricompartmental arthritis of both knees. Dictated by: Dictated on workstation # [id number]
[2018-11-18] VITALS (11 sets, daily range): BP systolic 104–131; BP diastolic 52–75
--- NOTE | 2018-11-18 00:18 | Consultation - Surgery ---
History of Present Illness History of Present Illness Patient Consulted On(randolph/time) 11/18/18 00:10 Date Seen by Provider: Nov 18, 2018 Time Seen by Provider: 00:11 History of Present Illness consult requested by Dr. Marte for foreign body esophagus. Patient is a 63 year old female with recent falls last several day. Patient was brought by ems. Patient with recent UTI which she was treated for. Patient was unable to get up after falling and had to wait for home nurse to help her call 911. Patient has pain in her right hip. She had ct head and cspine without acute abnormality, ct chest abd/pelvis demonstrating a metallic foreign body in esophagus. Patient son states he wears a lot of rings and think she might have swallowed a ring with her medications. She is not experiencing any signicant pain or discomfort in her chest. She is having right hip pain, and knee pain. Denies n/v fever sweats chills shortness of breath or chest pain. RIght hip x ray no acute fx, chest x ray, metallic foreign body, right 7-9 age indeterminate rib fxs. Allergies and Home Medications Allergies Uncoded Allergies: IV CONTRAST (Adverse Reaction, Mild, HIVES, 09/17/18) Home Medications Amitriptyline HCl 50 Mg Tablet, 50 MG PO HS, (Reported) Amoxicillin/Potassium Clav 1 Each Tablet, 1 EACH PO TID Prescribed by: ALTHEA NEWMAN on 09/18/18 1015 Atorvastatin Calcium 40 Mg Tablet, 40 MG PO DAILY, (Reported) Besifloxacin Hydrochloride 5 Ml Drops.susp, 5 ML OP TID Prescribed by: ALTHEA NEWMAN on 09/18/18 1015 Cefuroxime Axetil 250 Mg Tablet, 250 MG PO BID Prescribed by: EVELYN SAMPSON on 10/19/18 1416 Ciprofloxacin HCl 500 Mg Tablet, 500 MG PO BID, (Reported) Eyelid Cleanser Comb No.7 1 Each Kit, 1 EACH TP TID Prescribed by: ALTHEA NEWMAN on 09/18/18 1015 Fluoxetine HCl 40 Mg Capsule, 40 MG PO BID, (Reported) Gabapentin 600 Mg Tablet, 600 MG PO TID, (Reported) Hydrocodone Bit/Acetaminophen 1 Tab Tab, 1 TAB PO Q4H PRN for MOD Prescribed by: ALTHEA NEWMAN on 09/18/18 1015 Ibuprofen 800 Mg Tablet, 800 MG PO TID PRN for PAIN-MILD, (Reported) Liraglutide 0.6 Mg/0.1 Ml Pen.injctr, 1.8 MG SC DAILY, (Reported) Losartan Potassium 50 Mg Tablet, 50 MG PO DAILY, (Reported) Metformin HCl 1,000 Mg Tablet, 1,000 MG PO BID, (Reported) Oxybutynin Chloride 5 Mg Tablet, 5 MG PO TID, (Reported) Sulfamethoxazole/Trimethoprim 1 Each Tablet, 1 EACH PO BID Prescribed by: KATIE TABARES on 11/10/182053 Patient Home Medication List Home Medication List Reviewed: Yes Past Uouydyu-Gyeyxi-Tecfwy Hx Patient Social History Alcohol Use: Denies Use Recreational Drug Use: No Smoking Status: Current Everyday Smoker Type Used: Cigarettes 2nd Hand Smoke Exposure: No Recent Foreign Travel: No Contact w/Someone Who Travel: No Recent Infectious Disease Expo: No Recent Hopitalizations: No Immunizations Up To Date Tetanus Booster (TDap): Unknown Date of Pneumonia Vaccine: Feb 13, 2018 Seasonal Allergies Seasonal Allergies: No Surgeries History of Surgeries: Yes (CYSTOSCOPIES, DILITATION URETHRAL STRICTURE) Surgeries: Appendectomy, Bladder Surgery, Section, Eye Surgery, Gallbladder, Tonsillectomy, Tubal Ligation Respiratory History of Respiratory Disorde: Yes Respiratory Disorders: COPD Cardiovascular History of Cardiac Disorders: Yes Cardiac Disorders: High Cholesterol, Hypertension Neurological History of Neurological Disord: Yes (CVA W/ R SIDED WEAKNESS) Neurological Disorders: Neuropathy, Stroke Genitourinary History of Genitourinary Disor: Yes (TRIGONITIS) Genitourinary Disorders: UTI-Chronic Gastrointestinal History of Gastrointestinal Di: No Musculoskeletal History of Musculoskeletal Dis: Yes (CHRONIC KNEE PAIN) Musculoskeletal Disorders: Arthritis Endocrine History of Endocrine Disorders: Yes (MORBID OBESITY) Endocrine Disorders: Diabetes, Insulin dep HEENT History of HEENT Disorders: No (prior cataract surgeries) Psychosocial History of Psychiatric Problem: Yes Behavioral Health Disorders: Depression Integumentary History of Skin or Integumenta: Yes (L ORBITAL CELLULITIS, 2018 CHEEK CELLULITIS) Skin/Integumentary Disorders: Recent Skin Changes Family Medical History Significant Family History: No Pertinent Family Hx Review of Systems-General Constitutional: no symptoms reported EENTM: no symptoms reported Respiratory: no symptoms reported Cardiovascular: no symptoms reported Gastrointestinal: see HPI Genitourinary: see HPI Musculoskeletal: see HPI Skin: no symptoms reported Psychiatric/Neurological: No Symptoms Reported Physical Exam-General Problems Physical Exam Vital Signs Vital Signs - First Documented 11/17/18 20:40 Temp 98.2 Pulse 73 Resp 20 B/P (MAP) 103/58 (73) Pulse Ox 99 Capillary Refill : Less Than 3 Seconds General Appearance: no apparent distress, obese HEENT: PERRL/EOMI, normal ENT inspection Neck: non-tender, supple Respiratory: chest non-tender, no respiratory distress, no accessory muscle use Cardiovascular: regular rate, rhythm Gastrointestinal: non tender, soft Rectal: deferred Back: no CVA tenderness Extremities: other (right lower ext tender) Neurologic/Psychiatric: alert, normal mood/affect, oriented x 3 Skin: normal color, warm/dry Lymphatic: no adenopathy Data Review Labs Laboratory Tests 11/17/18 20:28: Glucometer 312H 11/17/18 20:37: White Blood Count 6.4, Red Blood Count 3.53L, Hemoglobin 11.6, Hematocrit 34L, Mean Corpuscular Volume 98, Mean Corpuscular Hemoglobin 33, Mean Corpuscular Hemoglobin Concent 34, Red Cell Distribution Width 13.3, Platelet Count 173, Mean Platelet Volume 9.5, Neutrophils (%) (Auto) 63, Lymphocytes (%) (Auto) 26, Monocytes (%) (Auto) 7, Eosinophils (%) (Auto) 4, Basophils (%) (Auto) 0, Neutrophils # (Auto) 4.1, Lymphocytes # (Auto) 1.7, Monocytes # (Auto) 0.4, Eosinophils # (Auto) 0.2, Basophils # (Auto) 0.0, Prothrombin Time 14.8H, INR Comment 1.1, Activated Partial Thromboplast Time 30, Sodium Level 134L, Potassium Level 5.3H, Chloride Level 107, Carbon Dioxide Level 15L, Anion Gap 12, Blood Urea Nitrogen 35H, Creatinine 2.13H, Estimat Glomerular Filtration Rate 23, BUN/Creatinine Ratio 16, Glucose Level 131H, Calcium Level 8.5, Corrected Calcium 9.2, Magnesium Level 1.3L, Total Bilirubin 0.2, Aspartate Amino Transf (AST/SGOT) 14, Alanine Aminotransferase (ALT/SGPT) 11, Alkaline Phosphatase 53, Total Creatine Kinase 91, Troponin I < 0.028, Total Protein 6.4, Albumin 3.1L 11/17/18 20:53: Urine Color YELLOW, Urine Clarity CLEAR, Urine pH 5, Urine Specific [place] 1.015L, Urine Protein 1+H, Urine Glucose (UA) NEGATIVE, Urine Ketones NEGATIVE, Urine Nitrite NEGATIVE, Urine Bilirubin NEGATIVE, Urine Urobilinogen NORMAL, Urine Leukocyte Esterase NEGATIVE, Urine RBC (Auto) NEGATIVE, Urine RBC RARE, Urine WBC RARE, Urine Squamous Epithelial Cells >50H, Urine Crystals NONE, Urine Bacteria TRACE, Urine Casts NONE, Urine Mucus NEGATIVE, Urine Culture Indicated NO 11/17/18 22:42: Troponin I < 0.028 Assessment/Plan Assessment/Plan Assessment/Plan foreign body esophagus hx uti recent falls right 7-9 rib fx age indeterminate right hip pain patient and son discussed risks and benefits of egd to evaluate and remove foreign body they understand the risks and benefits and wish to proceed. npo consent Pain control to endoscopy for further evaluation MICHI MENEZES DO Nov 18, 2018 00:18
[2018-11-18] MEDS ORDERED: proPOfol 200 MG/20 ML (DIPRIVAN) VIAL IV ONE (00:31)
[2018-11-18] MEDS ORDERED: MIDAZOLAM 2 MG/2 ML (VERSED) VIAL ONE (00:32)
[2018-11-18] MEDS ORDERED: LACTATED RINGERS 1,000 ML IV ONE ×2 (00:34→01:45)
--- NOTE | 2018-11-18 01:11 | Progress Note-Post Operative ---
Post-Operative Progess Note Surgeon (s)/Pack Out Operator (s) Surgeon MICHI MENEEZS DO Pack Out Operator: na Pre-Operative Diagnosis foreign body esophagus Post-Operative Diagnosis metallic ring foreign body esophagus, hiatal hernia, gastritis with ulcerations Procedure & Operative Findings Date of Procedure 11/18/18 Procedure Performed/Findings egd c removal foreign body esophagus and biopsy antrum Anesthesia Type per income tax preparer Estimated Blood Loss Estimated blood loss (mL): none Specimens/Packing Specimens Removed foreign body, antrum MICHI MENEZES DO Nov 18, 2018 01:10
[2018-11-18] MEDS ORDERED: HURRICAINE EXT TUBE (BENZOCAINE) XX PRN (01:45)
--- OUTSIDE RECORDS SUMMARY | 2018-11-18 02:53 | XMS REPORT | Continuity of Care Document ---
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 11/16/2010 BRITTANY MIRZA DO V72.31 Rehab Technician Exam, Routine 11/16/2010 BECCA CACERES, KATIE V72.31 Rehab Technician Exam, Routine 11/16/2010 V72.31 Rehab Technician Exam, Routine 11/16/2010 BECCA CACERES, KATIE V72.31 Rehab Technician Exam, Routine 11/16/2010 BECCA CACERES, KATIE V72.31 Rehab Technician Exam, Routine 11/16/2010 BECCA CACERES, KATIE V72.31 Rehab Technician Exam, Routine 11/16/2010 KATIE HUDSON MD V72.31 Rehab Technician Exam, Routine 11/16/2010 BRITTANY MIRZA DO V72.31 Rehab Technician Exam, Routine 11/16/2010 KATIE HUDSON MD V72.31 Rehab Technician Exam, Routine 11/16/2010 BRITTANY MIRZA DO V72.31 Rehab Technician Exam, Routine 11/16/2010 KATIE HUDSON MD V72.31 Rehab Technician Exam, Routine 11/16/2010 KATIE HUDSON MD V72.31 Rehab Technician Exam, Routine 11/16/2010 BRITTANY MIRZA DO V72.31 Rehab Technician Exam, Routine 11/16/2010 KATIE HUDSON MD V72.31 Rehab Technician Exam, Routine 11/16/2010 KATIE HUDSON MD V72.31 Rehab Technician Exam, Routine 11/16/2010 KATIE HUDSON MD V72.31 Rehab Technician Exam, Routine 01/25/2011 BRITTANY MIRZA DO V04.81 [...] 03/22/2012 BRITTANY MIRZA DO 733.92 CHONDROMALACIA 03/22/2012 AKTIE HUDSON MD 733.92 CHONDROMALACIA 03/22/2012 BRITTANY MIRZA [...] Procedures Code [place] [address] ROUTINE VENIPUNCTURE 03/16/2012 79961 UA W/ CULTURE IF INDICATED 03/16/2012 05866 URINE DRUG SCREEN (IN-HOUSE) 03/16/2012 15474 A1C (IN-HOUSE) 03/16/2012 29059 CBC 03/16/2012 84057 CMP 03/16/2012 97672 LIPID PANEL 03/16/2012 3227910 GFR CALC (RESULT ONLY) 03/16/2012 21241 CULTURE URINE 03/18/2012 50614 JOINT INJECTION- LARGE JOINT (SPECIFY MEDCIN DESCRIPTION) 03/22/2012 86861 ROUTINE VENIPUNCTURE 03/08/2013 54800 A1C (IN-HOUSE) 03/08/2013 9397642 GFR CALC (RESULT ONLY) 03/08/2013 56720 CMP 03/08/2013 99084 LIPID PANEL 03/08/2013 92871 JOINT INJECTION- LARGE JOINT (SPECIFY MEDCIN DESCRIPTION) 06/06/2013 38594 UA W/ CULTURE IF INDICATED 06/06/2013 52775 CULTURE URINE 06/08/2013 [facility] 09/26/2013 78782 A1C (IN-HOUSE) 09/26/2013 57156 UA W/ CULTURE IF INDICATED 09/26/2013 95942 CULTURE URINE 09/28/2013 04884 OXIMETRY - OVERNIGHT 10/07/2013 27631 A1C (IN-HOUSE) 02/06/2014 38425 JOINT INJECTION- LARGE JOINT (SPECIFY MEDCIN DESCRIPTION) 02/06/2014 J1040 DEPO MEDROL 80 MG INJ 02/06/2014 78212 ROUTINE VENIPUNCTURE 03/10/2014 8634927 GFR CALC (RESULT ONLY) 03/10/2014 95341 CMP 03/10/2014 Results Test Result Range Comp. [...] 1 Escherichia coli NRG Antimicrobial Susceptibility NRG [facility] - 10/06/17 16:29 GLUCOSE 121 mg/dL 65-99 UREA NITROGEN (BUN) 23 mg/dL 7-25 CREATININE 0.90 mg/dL 0.50-0.99 eGFR NON-AFR. PERUVIAN 69 mL/min/1.73m2 > OR=60 eGFR 79 mL/min/1.73m2 [...] 9.2 fL 7.5-12.5 ABSOLUTE NEUTROPHILS 4225 cells/uL 1922-3856 ABSOLUTE LYMPHOCYTES 1697 cells/uL 850-3900 ABSOLUTE MONOCYTES 397 cells/uL 200-950 ABSOLUTE EOSINOPHILS 150 cells/uL 15-500 ABSOLUTE BASOPHILS 33 cells/uL 0-200 NEUTROPHILS 65 % NRG LYMPHOCYTES 26.1 % NRG MONOCYTES 6.1 % NRG EOSINOPHILS 2.3 % NRG BASOPHILS 0.5 % NRG Encounters ACCT No. Visit Date/Time Discharge Status Pt. Type Provider Facility Loc./Unit Complaint [id number] 06/12/2014 14:34:00 06/12/2014 23:59:59 [facility] Outpatient KATIE HUDSON MD [id number] 03/10/2014 13:49:00 03/10/2014 23:59:59 CLS Outpatient KATIE HUDSON MD [id number] 02/06/2014 14:56:00 02/06/2014 23:59:59 CLS Outpatient BRITTANY MIRZA DO [id number] 02/06/2014 14:01:00 02/06/2014 23:59:59 CLS Outpatient KATIE HUDSON MD [id number] 09/26/2013 13:12:00 09/26/2013 23:59:59 [facility]INA Outpatient KATIE HUDSON MD [id number] 09/26/2013 13:12:00 09/26/2013 23:59:59 CLS Outpatient KATIE HUDSON MD [id number] 09/26/2013 12:43:00 09/26/2013 23:59:59 CLS Outpatient BRITTANY MIRZA DO [id number] 06/06/2013 14:02:00 06/06/2013 23:59:59 CLS Outpatient KATIE HUDSON MD [id number] 06/06/2013 13:04:00 06/06/2013 23:59:59 CLS Outpatient BRITTANY MIRZA DO [id number] 03/08/2013 14:26:00 03/08/2013 23:59:59 CLS Outpatient KATIE HUDSON MD [id number] 03/08/2013 14:26:00 03/08/2013 23:59:59 CLS Outpatient KATIE HUDSON MD [id number] 10/25/2012 15:19:00 10/25/2012 23:59:59 CLS Outpatient KATIE HUDSON MD [id number] 03/22/2012 13:00:00 03/22/2012 23:59:59 CLS Outpatient BRITTANY MIRZA DO [id number] 03/16/2012 10:37:00 03/16/2012 23:59:59 [place] [id number] 08/19/2011 09:42:00 08/19/2011 23:59:59 CLS Outpatient KATIE HUDSON MD [id number] 10/25/2012 15:19:00 Document Registration [id number] 01/15/2016 07:06:00 Document Registration [id number] 06/08/2016 03:06:00 Document Registration [id number] 01/29/2017 16:06:00 Document Registration [id number] 03/29/2018 14:20:00 03/29/2018 23:59:59 [facility] [id number] 03/29/2018 14:20:00 Document Registration [id number] 10/06/2017 16:00:00 Document Registration [id number] 01/26/2017 15:00:00 Document Registration
[2018-11-18] MEDS ORDERED: fentaNYL INJECTION 100 MCG/2 ML AMP IV PRN (03:00)
[2018-11-18] MEDS ORDERED: ONDANSETRON 4 MG/2 ML (SDV) Z0FRAN IV PRN (03:00)
[2018-11-18] MEDS: NS IV 1000 ML 1,000 ML IV SCH ×3 (03:00→18:45)
--- OUTSIDE RECORDS SUMMARY | 2018-11-18 03:07 | XMS REPORT | Continuity of Care Document ---
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 11/16/2010 BRITTANY MIRZA DO V72.31 Manager Supply Chain Planning Exam, Routine 11/16/2010 BECCA CACERES, KATIE V72.31 Manager Supply Chain Planning Exam, Routine 11/16/2010 V72.31 Manager Supply Chain Planning Exam, Routine 11/16/2010 BECCA CACERES, KATIE V72.31 Manager Supply Chain Planning Exam, Routine 11/16/2010 BECCA CACERES, KATIE V72.31 Manager Supply Chain Planning Exam, Routine 11/16/2010 BECCA CACERES, KATIE V72.31 Manager Supply Chain Planning Exam, Routine 11/16/2010 KATIE HUDSON MD V72.31 Manager Supply Chain Planning Exam, Routine 11/16/2010 BRITTANY MIRZA DO V72.31 Manager Supply Chain Planning Exam, Routine 11/16/2010 KATIE HUDSON MD V72.31 Manager Supply Chain Planning Exam, Routine 11/16/2010 BRITTANY MIRZA DO V72.31 Manager Supply Chain Planning Exam, Routine 11/16/2010 KATIE HUDSON MD V72.31 Manager Supply Chain Planning Exam, Routine 11/16/2010 KATIE HUDSON MD V72.31 Manager Supply Chain Planning Exam, Routine 11/16/2010 BRITTANY MIRZA DO V72.31 Manager Supply Chain Planning Exam, Routine 11/16/2010 KATIE HUDSON MD V72.31 Manager Supply Chain Planning Exam, Routine 11/16/2010 KATIE HUDSON MD V72.31 Manager Supply Chain Planning Exam, Routine 11/16/2010 KATIE HUDSON MD V72.31 Manager Supply Chain Planning Exam, Routine 01/25/2011 BRITTANY MIRZA DO V04.81 [...] Dx (3 Yrs And Above, Im) 01/25/2011 KTAIE HUDSON MD V04.81 Flu Dx (3 Yrs [...] OF THE TEETH AND SUPPORTING STRUCTURES 10/25/2012 KAITE HUDSON MD 525.9 UNSPECIFIED DISORDER OF THE [...] Procedures Code Description [place] [address] ROUTINE VENIPUNCTURE 03/16/2012 68920 UA W/ CULTURE IF INDICATED 03/16/2012 09222 URINE DRUG SCREEN (IN-HOUSE) 03/16/2012 21653 A1C (IN-HOUSE) 03/16/2012 62629 CBC 03/16/2012 83028 CMP 03/16/2012 93834 LIPID PANEL 03/16/2012 5584487 GFR CALC (RESULT ONLY) 03/16/2012 98189 CULTURE URINE 03/18/2012 04926 JOINT INJECTION- LARGE JOINT (SPECIFY MEDCIN DESCRIPTION) 03/22/2012 58889 ROUTINE VENIPUNCTURE 03/08/2013 29152 A1C (IN-HOUSE) 03/08/2013 3943725 GFR CALC (RESULT ONLY) 03/08/2013 62023 CMP 03/08/2013 33319 LIPID PANEL 03/08/2013 83188 JOINT INJECTION- LARGE JOINT (SPECIFY MEDCIN DESCRIPTION) 06/06/2013 53779 UA W/ CULTURE IF INDICATED 06/06/2013 78345 CULTURE URINE 06/08/2013 [facility] 09/26/2013 87425 A1C (IN-HOUSE) 09/26/2013 91936 UA W/ CULTURE IF INDICATED 09/26/2013 27743 CULTURE URINE 09/28/2013 71923 OXIMETRY - OVERNIGHT 10/07/2013 95057 A1C (IN-HOUSE) 02/06/2014 73229 JOINT INJECTION- LARGE JOINT (SPECIFY MEDCIN DESCRIPTION) 02/06/2014 J1040 DEPO MEDROL 80 MG INJ 02/06/2014 36004 ROUTINE VENIPUNCTURE 03/10/2014 4423763 GFR CALC (RESULT ONLY) 03/10/2014 49876 CMP 03/10/2014 Results Test Result Range Comp. [...] - 01/26/17 15:01 Urine Culture, Routine Note [facility] - 10/06/17 16:29 GLUCOSE 121 mg/dL [...] 9.2 fL 7.5-12.5 ABSOLUTE NEUTROPHILS 4225 cells/uL 6258-3880 ABSOLUTE LYMPHOCYTES 1697 cells/uL 850-3900 ABSOLUTE MONOCYTES 397 cells/uL 200-950 ABSOLUTE EOSINOPHILS 150 cells/uL 15-500 ABSOLUTE BASOPHILS 33 cells/uL 0-200 NEUTROPHILS 65 % NRG LYMPHOCYTES 26.1 % NRG MONOCYTES 6.1 % NRG EOSINOPHILS 2.3 % NRG BASOPHILS 0.5 % NRG Encounters ACCT No. Visit Date/Time Discharge Status Pt. Type Provider Facility Loc./Unit Complaint [id number] 06/12/2014 14:34:00 06/12/2014 23:59:59 [facility] Outpatient KATIE HUDSON MD [id number] 03/10/2014 13:49:00 03/10/2014 23:59:59 CLS Outpatient KATIE HUDSON MD [id number] 02/06/2014 14:56:00 02/06/2014 23:59:59 CLS Outpatient BRITTANY MIRZA DO [id number] 02/06/2014 14:01:00 02/06/2014 23:59:59 CLS Outpatient KATIE HUDSON MD [id number] 09/26/2013 13:12:00 09/26/2013 23:59:59 [facility] Outpatient KATIE HUDSON MD [id number] 09/26/2013 13:12:00 09/26/2013 23:59:59 CLS Outpatient KATIE HUDSON MD [id number] 09/26/2013 12:43:00 09/26/2013 23:59:59 CLS Outpatient BRITTANY MIRZA DO [id number] 06/06/2013 14:02:00 06/06/2013 23:59:59 CLS Outpatient KATIE HUDSON MD [id number] 06/06/2013 13:04:00 06/06/2013 23:59:59 CLS Outpatient BRITTANY MIRZA DO [id number] 03/08/2013 14:26:00 03/08/2013 23:59:59 CLS Outpatient KATIE HUDSON MD [id number] 03/08/2013 14:26:00 03/08/2013 23:59:59 CLS Outpatient KATIE HUDSON MD [id number] 10/25/2012 15:19:00 10/25/2012 23:59:59 CLS Outpatient KATIE HUDSON MD [id number] 03/22/2012 13:00:00 03/22/2012 23:59:59 CLS Outpatient BRITTANY MIRZA DO [id number] 03/16/2012 10:37:00 03/16/2012 23:59:59 [place] [id number] 08/19/2011 09:42:00 08/19/2011 23:59:59 CLS Outpatient KATIE HUDSON MD [id number] 10/25/2012 15:19:00 Document Registration [id number] 06/08/2016 03:06:00 Document Registration [id number] 01/15/2016 07:06:00 Document Registration [id number] 03/29/2018 14:20:00 03/29/2018 23:59:59 [facility] Megan HUDSON MD, KATIE [facility] [id number] 03/29/2018 14:20:00 Document Registration [id number] 10/06/2017 16:00:00 Document Registration [id number] 01/26/2017 15:00:00 Document Registration [id number] 01/29/2017 16:06:00 Document Registration
--- NOTE | 2018-11-18 03:14 | OPERATIVE REPORT ---
DATE OF SERVICE: 11/18/2018 PREOPERATIVE DIAGNOSIS: Foreign body esophagus. POSTOPERATIVE DIAGNOSES: Foreign body esophagus, gastritis with ulcerations and hiatal hernia. SURGEON: Michi Lugo DO ANESTHESIA: Per STEAM SHOVEL RUNNER. ESTIMATED BLOOD LOSS: None. DESCRIPTION OF PROCEDURE: The patient was taken to the endoscopy suite, placed in partial left lateral recumbent position. Timeout was performed. Scope was inserted in mouth, down the esophagus with a metallic ring was discovered approximately penitentiary down. A Levin Net was then inserted and used to retrieve the metallic ring and then it was removed. The scope was reinserted in the mouth, down the esophagus and into the stomach and into the duodenum without difficulty. There were no polyps, masses or ulcerations within the duodenum. Scope was then slowly retracted back into the stomach, which was further insufflated. Changes of gastritis with some ulcerations within the antrum were present. Biopsy of the antrum was obtained. Scope was then retroflexed noting just gastritis appearance with a small to moderate sized hiatal hernia. No other pathology was noted. Scope was returned to its normal position, slowly withdrawn to the distal esophagus. There are no polyps, masses or ulcerations. No erythematous changes. Scope was then slowly retracted back to completely remove noting no other pathology. The patient tolerated procedure well without any complications. She was taken to recovery room in stable condition. RECOMMENDATIONS: The patient will be started on Protonix 40 mg daily. The patient will follow up on the biopsy. May benefit from repeat EGD in 6 to 8 weeks depending upon symptomatology and biopsy results. Job ID: [id number] DocumentID: [id number] Dictated Date: 11/18/2018 01:14:52 Boxing And Pressing Supervisor Date: 11/18/2018 03:13:05 Dictated By: MICHI LUGO DO
[2018-11-18 05:45] LABS: BASOPHILS % (AUTO) 0 % (0-10); EOSINOPHILS # (AUTO) 0.2 10^3/uL (0.0-0.3); EOSINOPHILS % (AUTO) 4 % (0-10); HEMATOCRIT 35 % (35-52); HEMOGLOBIN 11.7 G/DL (11.5-16.0); LYMPHOCYTES # (AUTO) 1.1 X 10^3 (1.0-4.0); LYMPHOCYTES % (AUTO) 19 % (12-44); MEAN CORPUSCULAR HEMOGLOBIN 33 PG (25-34); MEAN CORPUSCULAR HGB CONC 34 G/DL (32-36); MEAN CORPUSCULAR VOLUME 98 FL (80-99); MEAN PLATELET VOLUME 9.1 FL (7.4-10.4); MONOCYTES # (AUTO) 0.4 X 10^3 (0.0-1.0); MONOCYTES % (AUTO) 7 % (0-12); NEUTROPHILS # (AUTO) 4.2 X 10^3 (1.8-7.8); NEUTROPHILS % (AUTO) 71 % (42-75); PLATELET COUNT 176 10^3/uL (130-400); RED CELL DISTRIBUTION WIDTH 13.4 % (10.0-14.5); WHITE BLOOD COUNT 5.9 10^3/uL (4.3-11.0)
[2018-11-18 06:09] LABS: ALANINE AMINOTRANSFERASE 11 U/L (0-55); ALKALINE PHOSPHATASE 58 U/L (40-136); BILIRUBIN,TOTAL 0.2 MG/DL (0.1-1.0); BUN/CREATININE RATIO 17; CALCIUM 8.2 MG/DL (8.5-10.1); CARBON DIOXIDE 16 MMOL/L (21-32); CHLORIDE 110 MMOL/L (98-107); CREATININE SERUM 1.54 MG/DL (0.60-1.30); GFR ESTIMATED 34; GLUCOSE 154 MG/DL (70-105); MAGNESIUM 1.2 MG/DL (1.8-2.4); SODIUM 135 MMOL/L (135-145); TOTAL PROTEIN 6.2 GM/DL (6.4-8.2)
--- NOTE | 2018-11-18 07:51 | Diagnostic Imaging Report ---
PROCEDURE: CT chest, abdomen, and pelvis without contrast. TECHNIQUE: Multiple contiguous axial images were obtained through the chest, abdomen, and pelvis without the use of intravenous contrast. Auto Exposure Controls were utilized during the CT exam to meet ALARA standards for radiation dose reduction. INDICATION: Evaluation for a foreign body ingestion. FINDINGS: There is a metallic ring present within the proximal esophagus. No history of surgery given. There is mild bilateral basilar atelectasis. The thoracic and lumbar spine show good alignment with diffuse degenerative changes. No evidence of fracture. There is hepatomegaly with hepatic steatosis. Abdominal organs otherwise appear normal. Bowel gas pattern is normal. There is diverticulosis without diverticulitis. IMPRESSION: 1. Metallic ring foreign body noted in the proximal esophagus just below the thoracic inlet. 2. Mild bibasilar atelectasis. 3. Hepatomegaly with hepatic steatosis. Dictated by: Dictated on workstation # [id number]
[2018-11-18] MEDS: PANTOPRAZOLE 40 MG (PROTONIX) TAB PO SCH (08:03)
--- NOTE | 2018-11-18 08:07 | Diagnostic Imaging Report ---
INDICATION: Followup of foreign body removal. FINDINGS: Portable chest shows metallic ring previously noted on CT scan has been removed. No radiopaque foreign bodies are demonstrated. Mild atelectasis noted in the left lung base. IMPRESSION: Removal of the metallic foreign body from the esophagus since previous CT scan. Dictated by: Dictated on workstation # [id number]
[2018-11-18] MEDS: HYDROcodone/APAP 5 MG/325 MG (LORTAB) TAB PO PRN ×3 (10:51→23:43)
--- NOTE | 2018-11-18 13:27 | History & Physical-Hospitalist ---
History of Present Illness HPI/Chief Complaint The patient is a 63-year-old white female who has limited abilities because of severe degenerative arthritis in both knees. She walks with a walker. She reports that on Monday she was feeling quite weak and was attempting to get back to her chair. She reported that she sank lower and lower and ultimately ended up on the floor. She called for help and her neighbor came over and got her back up. This difficulty continued. On Monday night she was unable to get out of the bathtub. She again required help. On she spent the day mostly in a low bed and her son checked on her and brought her food. This declined continued and she came to the emergency room on Monday. Her laboratory showed a normal CBC and white count. The sodium was 134/135. The BUN yesterday was 35 and today 26 after hydration. Creatinine was 2.13 and today 1.54. There was a reference creatinine of 0.92 on 11/10/18. UA showed no evidence of urinary tract infection and it is not clear why she should have been dehydrated. Date Seen 11/18/18 Time Seen by a Provider: 13:22 Attending Physician Gerardo Cervantes MD PCP Andrew Celis MD Referring Physician Date of Admission Nov 17, 2018 at 22:20 Home Medications & Allergies Home Medications Reviewed patient Home Medication Reconciliation performed by pharmacy medication reconciliations electrical service technician and/or nursing. Patients Allergies have been reviewed. Allergies Allergies Uncoded Allergies IV CONTRAST ( Adverse Reaction, Mild, HIVES, 09/17/18) Past Vparfog-Acroiz-Twxjcc Hx Past Med/Social Hx: Reviewed Nursing Past Med/Soc Hx Patient Social History Alcohol Use: Denies Use Recreational Drug Use: No Smoking Status: Current Everyday Smoker Former Smoker, Quit: Dec 07, 1994 Type Used: Cigarettes 2nd Hand Smoke Exposure: No Recent Foreign Travel: No Contact w/other who traveled: No Recent Hopitalizations: No Recent Infectious Disease Expo: No Immunizations Up To Date Tetanus Booster (TDap): Unknown Date of Pneumonia Vaccine: Feb 13, 2018 Seasonal Allergies Seasonal Allergies: No Past Medical History Surgeries: Appendectomy, Bladder Surgery, Section, Eye Surgery, Gallbladder, Tonsillectomy, Tubal Ligation Cardiac: High Cholesterol, Hypertension Neurological: Neuropathy, Stroke Genitourinary: UTI-Chronic Musculoskeletal: Arthritis Endocrine: Diabetes, Insulin dep Psychosocial: Depression Skin/Integumentary: Recent Skin Changes Family History Patient reports no known family medical history. No Pertinent Family Hx Review of Systems Constitutional: see HPI EENTM: no symptoms reported Respiratory: no symptoms reported Cardiovascular: no symptoms reported Gastrointestinal: no symptoms reported Genitourinary: no symptoms reported Musculoskeletal: muscle weakness Skin: no symptoms reported Psychiatric/Neurological: No Symptoms Reported Physical Exam Physical Exam Vital Signs Vital Signs - First Documented 11/17/18 11/18/18 20:40 00:57 Temp 98.2 Pulse 73 Resp 20 B/P (MAP) 103/58 (73) Pulse Ox 99 O2 Delivery OxyMask O2 Flow Rate 10 Capillary Refill : Less Than 3 Seconds Height, Weight, BMI Height: 5'6.00" Weight: 302lbs. 1.0oz. 137.757150yx; 49.3 BMI Method:Actual General Appearance: Mild Distress Eyes: Bilateral Eye Normal Inspection HEENT: Normal ENT Inspection Neck: Full Range of Motion, Normal Inspection, Non Tender Respiratory: Chest Non Tender, Lungs Clear, Normal Breath Sounds, No Accessory Muscle Use, No Respiratory Distress Cardiovascular: Regular Rate, Rhythm, No Edema, No Gallop, No JVD, No Murmur, Normal Peripheral Pulses Gastrointestinal: Normal Bowel Sounds, No Organomegaly, No Pulsatile Mass, Non Tender, Soft Back: Normal Inspection, No CVA Tenderness, No Vertebral Tenderness Extremity: Normal Capillary Refill, Normal Inspection Neurologic/Psychiatric: Alert, Oriented x3, No Motor/Sensory Deficits, Normal Mood/Affect Skin: Normal Color, Warm/Dry Lymphatic: No Adenopathy Results Results/Procedures Labs Laboratory Tests 11/17/18 20:37 11/18/18 05:38 Patient resulted labs reviewed. Assessment/Plan Admission Diagnosis Dehydration. 2.acute renal insufficiency. 3.severe degenerative arthritis both knees Admission Status: Observation Clinical Quality Measures DVT/VTE Risk/Contraindication: Risk Factor Score Per Nursin RFS Level Per Nursing on Admit: 4+=Very High GERARDO CERVANTES MD Nov 18, 2018 13:27
--- NOTE | 2018-11-18 13:47 | Progress Note - Surgery ---
FIDEL BARRIOS,MED STUDENT 11/18/18 1347: Subjective Date Seen by a Provider: Nov 18, 2018 Time Seen by a Provider: 10:50 Subjective/Events-last exam PT states pain is well controlled. Denies dysphagia or odynophagia with eating/drinking,denies nausea, vomiting, chest pain, shortness of breath, fever or chills. Review of Systems General: No Chills, No Night Sweats Cardiovascular: No: Chest Pain Gastrointestinal: No: Nausea, Vomiting, Abdominal Pain Objective Exam Vital Signs Date Time Temp Pulse Resp B/P (MAP) Pulse Ox O2 Delivery O2 Flow Rate FiO2 11/18/18 12:00 98.1 83 20 108/67 (81) 97 Nasal Cannula 1.00 11/18/18 08:00 96 Nasal Cannula 1.00 11/18/18 08:00 98.2 85 18 131/71 (91) 96 Nasal Cannula 1.00 11/18/18 04:47 96.9 82 20 128/75 (92) 100 Nasal Cannula 2.00 11/18/18 01:38 96.6 82 20 128/75 100 Nasal Cannula 2.00 11/18/18 01:30 Nasal Cannula 2.00 11/18/18 01:15 89 16 98 Room Air 11/18/18 01:10 88 16 100 OxyMask 10 11/18/18 01:05 85 16 100 OxyMask 10 11/18/18 01:00 88 20 100 OxyMask 10 11/18/18 00:57 89 20 100 OxyMask 10 11/18/18 00:26 87 18 104/59 (74) 99 11/17/18 20:40 98.2 73 20 103/58 (73) 99 I & O 11/18/18 07:00 Intake Total 2470 ml Output Total 2650 ml Balance -180 ml Capillary Refill : Less Than 3 Seconds General Appearance: No Apparent Distress, WD/WN HEENT: PERRL/EOMI, Normal ENT Inspection Neck: Normal Inspection, Non Tender Respiratory: Chest Non Tender, No Accessory Muscle Use, No Respiratory Distress Cardiovascular: Regular Rate, Rhythm Peripheral Pulses: 1+ Dorsalis Pedis (R), 1+ Left Dors-Pedis (L), 1+ Radial Pulses (R), 1+ Radial Pulses (L) Gastrointestinal: non tender, soft Extremity: Normal Inspection, Non Tender Neurologic/Psychiatric: Alert, Oriented x3, No Motor/Sensory Deficits Skin: Normal Color, Warm/Dry Lymphatic: No Adenopathy Results Lab Laboratory Tests 11/17/18 20:28: Glucometer 312H 11/17/18 20:37: White Blood Count 6.4, Red Blood Count 3.53L, Hemoglobin 11.6, Hematocrit 34L, Mean Corpuscular Volume 98, Mean Corpuscular Hemoglobin 33, Mean Corpuscular Hemoglobin Concent 34, Red Cell Distribution Width 13.3, Platelet Count 173, Mean Platelet Volume 9.5, Neutrophils (%) (Auto) 63, Lymphocytes (%) (Auto) 26, Monocytes (%) (Auto) 7, Eosinophils (%) (Auto) 4, Basophils (%) (Auto) 0, Neutrophils # (Auto) 4.1, Lymphocytes # (Auto) 1.7, Monocytes # (Auto) 0.4, Eosinophils # (Auto) 0.2, Basophils # (Auto) 0.0, Prothrombin Time 14.8H, INR Comment 1.1, Activated Partial Thromboplast Time 30, Sodium Level 134L, Potassium Level 5.3H, Chloride Level 107, Carbon Dioxide Level 15L, Anion Gap 12, Blood Urea Nitrogen 35H, Creatinine 2.13H, Estimat Glomerular Filtration Rate 23, BUN/Creatinine Ratio 16, Glucose Level 131H, Calcium Level 8.5, Corrected Calcium 9.2, Magnesium Level 1.3L, Total Bilirubin 0.2, Aspartate Amino Transf (AST/SGOT) 14, Alanine Aminotransferase (ALT/SGPT) 11, Alkaline Phosphatase 53, Total Creatine Kinase 91, Troponin I < 0.028, Total Protein 6.4, Albumin 3.1L 11/17/18 20:53: Urine Color YELLOW, Urine Clarity CLEAR, Urine pH 5, Urine Specific [place] 1.015L, Urine Protein 1+H, Urine Glucose (UA) NEGATIVE, Urine Ketones NEGATIVE, Urine Nitrite NEGATIVE, Urine Bilirubin NEGATIVE, Urine Urobilinogen NORMAL, Urine Leukocyte Esterase NEGATIVE, Urine RBC (Auto) NEGATIVE, Urine RBC RARE, Urine WBC RARE, Urine Squamous Epithelial Cells >50H, Urine Crystals NONE, Urine Bacteria TRACE, Urine Casts NONE, Urine Mucus NEGATIVE, Urine Culture Indicated NO 11/17/18 22:42: Troponin I < 0.028 11/18/18 05:38: White Blood Count 5.9, Red Blood Count 3.58L, Hemoglobin 11.7, Hematocrit 35, Mean Corpuscular Volume 98, Mean Corpuscular Hemoglobin 33, Mean Corpuscular Hemoglobin Concent 34, Red Cell Distribution Width 13.4, Platelet Count 176, Mean Platelet Volume 9.1, Neutrophils (%) (Auto) 71, Lymphocytes (%) (Auto) 19, Monocytes (%) (Auto) 7, Eosinophils (%) (Auto) 4, Basophils (%) (Auto) 0, Neutrophils # (Auto) 4.2, Lymphocytes # (Auto) 1.1, Monocytes # (Auto) 0.4, Eosinophils # (Auto) 0.2, Basophils # (Auto) 0.0, Sodium Level 135, Potassium Level 5.0, Chloride Level 110H, Carbon Dioxide Level 16L, Anion Gap 9, Blood Urea Nitrogen 26H, Creatinine 1.54H, Estimat Glomerular Filtration Rate 34, BUN/Creatinine Ratio 17, Glucose Level 154H, Calcium Level 8.2L, Corrected Calcium 9.0, Magnesium Level 1.2L, Total Bilirubin 0.2, Aspartate Amino Transf (AST/SGOT) 10, Alanine Aminotransferase (ALT/SGPT) 11, Alkaline Phosphatase 58, Troponin I < 0.028, Total Protein 6.2L, Albumin 3.0L Assessment/Plan Assessment/Plan Assessment/Plan foreign body esophagus hx uti recent falls right 7-9 rib fx age indeterminate right hip pain hypomagnesemia continue pain control will sign off call as needed Clinical Quality Measures DVT/VTE Risk/Contraindication: Risk Factor Score Per Nursin RFS Level Per Nursing on Admit: 4+=Very High MICHI LUGO DO 11/18/18 1451: Subjective Subjective/Events-last exam No difficulty with swallowing. denies any new complaints. Assessment/Plan Assessment/Plan Assessment/Plan patient with gastritis c ulcers/hiatal hernia placed on protonix no new complaints. will sign off and have patient follow up 2 weeks Brittney, call if needed. Supervisory-Addendum Brief Verification & Attestation Time: Verification & Attestat.: 14:51 Participated in pt care: history, MDM, physical Personally performed: exam, history, MDM, supervision of care Care discussed with: Medical Student Procedures: n/a Results interpretation: Verified all documentation `Verification and Attestation of Medical Student E/M Service A medical student performed and documented this service in my presence. I reviewed and verified all information documented by the medical student and made modifications to such information, when appropriate. I personally performed the physical exam and medical decision making. Michi Lugo, Nov 18, 2018,14:51 FIDEL BARRIOS,MED STUDENT Nov 18, 2018 13:47 MICHI LUGO DO Nov 18, 2018 14:51
--- NOTE | 2018-11-18 14:50 | NUR ---
PT ARRIVED TO FLOOR VIA STRETCHER BY EMS FROM [facility]. A/O, ABLE TO ANSWER QUESTIONS APPROPRIATELY BUT RAMBLES WHEN ASKED QUESTIONS. X1 ASSIST TO BSC PT IS UNSTEADY AND WEAK ON FEET. +3 EDEMA NOTED TO BILATERAL LOWER EXTREMITIES. NO SKIN ISSUES NOTED. UNABLE TO REPORT WHEN LAST BM WAS. PT WAS PLACED IN GOWN UPON ARRIVAL AND HAS STRONG BODY ODOR. PER ED NURSE PATIENT KATHLEEN AREA WAS UNCLEAN WITH OLD BM PRESENT. ADMISSION EDUCATION GONE OVER WITH PT. RIGHT AC IV INTACT. MEDICAL ALERT NECKLACE LOCKED IN BUSINESS ENGLISH INSTRUCTOR ROOM. ORIENTED PT TO ROOM, CALL LIGHT WITHIN REACH. PT FALL RISK WITH NON SLIP SOCKS APPLIED AND BED ALARM TURNED ON. SCD'S APPLIED TO PATIENT LEGS Addendum: 11/18/18 at 1731 by AHMET FROST RN CHARTED ON WRONG PATIENT
[2018-11-19] VITALS: BP 110/55
[2018-11-19] MEDS: NS IV 1000 ML 1,000 ML IV SCH ×2 (02:47→10:00)
[2018-11-19 04:00] VITALS: BP 107/60
[2018-11-19 08:32] VITALS: BP 112/65
[2018-11-19] MEDS: HYDROcodone/APAP 5 MG/325 MG (LORTAB) TAB PO PRN ×2 (08:55→18:06)
[2018-11-19] MEDS: PANTOPRAZOLE 40 MG (PROTONIX) TAB PO SCH (08:55)
[2018-11-19] MEDS ORDERED: SULF-222 PO (08:58)
--- NOTE | 2018-11-19 09:02 | NUR ---
SPOKE WITH THE PATIENT ABOUT HER MEDICATIONS. WE WENT OVER THE EXT MED HX AND SHE VERIFIED HOW SHE TAKES THEM. SHE STATES SHE IS STILL TAKING HER FLUOXETINE AND SHE IS NOT OUT OF IT AT HOME HOWEVER ACCORDING TO THE EXT MED HX IT WAS LAST FILLED FOR A 30 DAY SUPPLY IN AUGUST. I NOTED THE PAST DUE FILL DATE ON THE MED REC.
[2018-11-19 10:53] LABS: CALCIUM 8.3 MG/DL (8.5-10.1); CREATININE SERUM 1.27 MG/DL (0.60-1.30); POTASSIUM 4.6 MMOL/L (3.6-5.0)
--- NOTE | 2018-11-19 10:58 | Physical Therapy Evaluation ---
PT Evaluation-General Medical Diagnosis Admission Date Nov 17, 2018 at 22:20 Medical Diagnosis: ELEANOR/dehydration/fall Onset Date: Nov 17, 2018 Therapy Diagnosis Therapy Diagnosis: debility/weakness Height/Weight Height (Feet): 5 Height (Inches): 6.00 Weight (Pounds): 302 Weight (Ounces): 1.0 Precautions Precautions/Isolations: Contact Isolation Weight Bear Status Right Lower Extremity: Right Weight Bearing/Tolerated Left Lower Extremity: Left Weight Bearing/Tolerated Referral Physician: Breezy Reason for Referral: Evaluation/Treatment Medical History Pertinent Medical History: Arthritis, CAD, CVA, DM, Smoking Additional Medical History morbid obesity Current History ER secondary to 3 falls in 2 days per report. Reviewed History: Yes Social History Home: Single Level Current Living Status: Children Entry Into Home: Ramp Prior/Core FIM Prior Level of Function Therapy Code Descriptions/Definitions Functional [place] Measure: 0=Not Assessed/NA 4=Minimal Assistance 1=Total Assistance 5=Supervision or Setup 2=Maximal Assistance 6=Modified [place] 3=Moderate Assistance 7=Complete [place] Therapy Quality Codes: 6 Independent with activity with or without an assistive device 5 Patient requires set up or clean up by helper. Patient completes activity by themselves 4 Supervision or touching assist (CGA). [place] provide cues , steadying assist 3 The helper provides less than half the effort to complete the activity 2 The helper provides more than half the effort to complete the activity 1 Dependent. The helper does all the effort to complete an activity 7 Patient refused to complete or attempt activity 9 The patient did not perform the activity before the current illness or injury 88 Not attempted due to Medical conditions or safety concerns Functional Abilities and Goals: Independent: Patient completed the activities by him/herself, with or without an assistive device, with no assistance from a helper. Needed Some Help: Patient needed partial assistance from another person to complete activities. Dependent: A helper completed the activities for the patient. Unknown: Not Applicable: Bed Mobility: 6 Transfers (B,C,W/C) (FIM): 6 Gait: 1 Stairs: 0 Wheelchair Mobility: 6 Indoor Mobility (Ambulation): Independent (short distances only per patient report) Prior Devices Use: Manual wheelchair, Motorized wheelchair, Walker PT Evaluation-Current Subjective Patient states, "I can't move." After much encouragement, patient was able to perform all gross motor skills SBA without difficulty, however, yelling the entire time. Pain Numeric Pain Scale: 10-Worst Possible Pain Location: Right Location Body Site: Knee Pain Description: Chronic Objective Patient Orientation: Normal For Age Problem Solving: Fair Attachments: Oxygen, IV ROM/Strength ROM Lower Extremities bilateral LE limited due to morbid obesity and immobility PLOF Strength Lower Extremities 3/5 grossly bilaterally Integumentary/Posture Integumentary refer to nursing notes Bowel Incontinence: No Bladder Incontinence: No Posture trunk flexed posture due to sedentary lifestyle Neuromuscular (Tone, Coordination, Reflexes) grossly intact Sensory Vision: Functional Hearing: Functional Sensation Right Lower Extremit: Impaired Sensation Left Lower Extremity: Impaired Transfers Therapy Code Descriptions/Definitions Functional [place] Measure: 0=Not Assessed/NA 4=Minimal Assistance 1=Total Assistance 5=Supervision or Setup 2=Maximal Assistance 6=Modified [place] 3=Moderate Assistance 7=Complete [place] Transfers (B, C, W/C) (FIM): 5 Scootin Supine to/from Sit: 5 Sit to/from Stand: 5 Gait Mode of Locomotion: Both Anticipated Mode of Locomotion: Both Gait (FIM): 1 Distance (FIM): 1=up to 49 ft Distance: 20' Gait Level of Assist: 5 Gait Assistive Device: FWW Comments/Gait Description WBOS, shuffle gait sequence Balance Sitting Static: Normal Sitting Dynamic: Normal Standing Static: Fair Standing Dynamic: Fair Assessment/Needs 63 y.o. female, will be seen short term skilled PT to address functional mobility to improve current LOF to safely return to home with family at maximum LOF. Patient is very limited due to morbid obesity and sedentary lifestyle. Rehab Potential: Fair PT Shelter Goals Tour Escort Goals PT Shelter Goals Time Frame: Nov 26, 2018 Transfers (B,C,W/C) (FIM): 6 Gait (FIM): 1 Gait distance (FIM): 1=up to 49 ft Distance: 25' Gait Level of Assist: 6 Gait Assistive Device: FWW PT Plan Problem List Problem List: Activity Tolerance, Functional Strength, Safety, Balance, Gait, Transfer, Bed Mobility Treatment/Plan Treatment Plan: Continue Plan of Care Treatment Plan: Bed Mobility, Education, Functional Activity Ezra, Functional Strength, Gait, Safety, Therapeutic Exercise, Transfers Treatment Duration: Nov 26, 2018 Frequency: 6 times per week Estimated Hrs Per Day: .25 hour per day Patient and/or Family Agrees t: Yes Discharge Recommendations Therapy D/C Recommendations: Home w/ Family Support Time/GCodes Time In: 940 Time Out: 955 Total Billed Treatment Time: 15 Total Billed Treatment 1 visit EVMod 15 min RENATA RYAN PT Nov 19, 2018 10:58
[2018-11-19] MEDS: ACETAMINOPHEN 325 MG TABLET PO PRN (12:11)
[2018-11-19 12:39] VITALS: BP 110/71
--- NOTE | 2018-11-19 13:45 | Occupational Therapy Eval ---
OT Evaluation-General/PLF Medical Diagnosis Admission Date Nov 17, 2018 at 22:20 Medical Diagnosis: ELEANOR/dehydration/fall Onset Date: Nov 17, 2018 Therapy Diagnosis Therapy Diagnosis: impaired ADLS and mobility Height/Weight Height (Feet): 5 Height (Inches): 6.00 Weight (Pounds): 302 Weight (Ounces): 1.0 Precautions Precautions/Isolations: Contact Isolation Referral Physician: Breezy Medical History Pertinent Medical History: Arthritis, CAD, CVA, DM, Smoking Additional Medical History PER h&p: "he patient is a 63-year-old white female who has limited abilities because of severe degenerative arthritis in both knees. She walks with a walker. She reports that on Monday she was feeling quite weak and was attempting to get back to her chair. She reported that she sank lower and lower and ultimately ended up on the floor. She called for help and her neighbor came over and got her back up. This difficulty continued. On Monday night she was unable to get out of the bathtub. She again required help. On she spent the day mostly in a low bed and her son checked on her and brought her food. This declined continued and she came to the emergency room on Monday. Her laboratory showed a normal CBC and white count. The sodium was 134/135. The BUN yesterday was 35 and today 26 after hydration. Creatinine was 2.13 and today 1.54. There was a reference creatinine of 0.92 on 11/10/18. UA showed no evidence of urinary tract infection and it is not clear why she should have been dehydrated." Reviewed History: Yes Social History Home: Single Level Current Living Status: Children Entry Into Home: Ramp ADL-Prior Level of Function Therapy Code Descriptions/Definitions Functional [place] Measure: 0=Not Assessed/NA 4=Minimal Assistance 1=Total Assistance 5=Supervision or Setup 2=Maximal Assistance 6=Modified [place] 3=Moderate Assistance 7=Complete [place] Therapy Quality Codes: 6 Independent with activity with or without an assistive device 5 Patient requires set up or clean up by helper. Patient completes activity by themselves 4 Supervision or touching assist (CGA). [place] provide cues , steadying assist 3 The helper provides less than half the effort to complete the activity 2 The helper provides more than half the effort to complete the activity 1 Dependent. The helper does all the effort to complete an activity 7 Patient refused to complete or attempt activity 9 The patient did not perform the activity before the current illness or injury 88 Not attempted due to Medical conditions or safety concerns Functional Abilities and Goals: Independent: Patient completed the activities by him/herself, with or without an assistive device, with no assistance from a helper. Needed Some Help: Patient needed partial assistance from another person to complete activities. Dependent: A helper completed the activities for the patient. Unknown: Not Applicable: ADL PLOF Comments PT STATED SHE USED MANUAL W/C WHEN IN PUBLIC AND RW WHILE AT HOME Self Care: Independent Functional Cognition: Independent DME/Equipment: Bath Chair, Tub/Shower Drive Self: Yes OT Current Status Subjective pt laying in bed upon OT arrival. pt agreed to OT evaluation session and TX session. pt complains of no pain. Mental Status/Objective Patient Orientation: Person, Place, Time, Situation Current Glasses/Contacts: No Hearing Aids: No Dentures/Partials: No Hand Dominance: Right Upper Extremity ROM WNL Upper Extremity Coordination opposition WNL finger to nose WNL Upper Extremity Sensation WNL light touch Upper Extremity Strength 4-/5 MMT ADL-Treatment Therapy Code Descriptions/Definitions Functional [place] Measure: 0=Not Assessed/NA 4=Minimal Assistance 1=Total Assistance 5=Supervision or Setup 2=Maximal Assistance 6=Modified [place] 3=Moderate Assistance 7=Complete [place] Therapy Quality Codes: 6 Independent with activity with or without an assistive device 5 Patient requires set up or clean up by helper. Patient completes activity by themselves 4 Supervision or touching assist (CGA). [place] provide cues , steadying assist 3 The helper provides less than half the effort to complete the activity 2 The helper provides more than half the effort to complete the activity 1 Dependent. The helper does all the effort to complete an activity 7 Patient refused to complete or attempt activity 9 The patient did not perform the activity before the current illness or injury 88 Not attempted due to Medical conditions or safety concerns pt currently dep for LB dressing, toileting, and MOD A for functional transfers. Other Treatments pt education on proper sit to stand with using RW. pt required MiN- MOD A to perform sit to stands. noted antan knee buckling while standing. pt perform 3 sit to stands. pt required MAX A to perform bed mobility. Education OT Patient Education: Correct positioning, Energy conservation, Safety issues, Transfer techniques OT Short Term Goals Short Term Goals Grooming(FIM): 5 Bathing(FIM): 5 Lower Body Dressing(FIM): 5 Toileting(FIM): 5 Transfers (B,C,W/C) (FIM): 5 Toilet/Commode Transfer(FIM): 5 1=Demonstrate adherence to instructed precautions during ADL tasks. 2=Patient will verbalize/demonstrate understanding of assistive devices/modifications for ADL. 3=Patient will improve strength/tolerance for activity to enable patient to perform ADL's. OT Half-Way Goals Half-Way Goals Time Frame: Dec 03, 2018 Grooming(FIM): 6 Bathing(FIM): 6 Lower Body Dressing(FIM): 6 Toileting(FIM): 6 Transfers (B,C,W/C) (FIM): 6 Toilet/Commode Transfer(FIM): 6 Additional Goals: 1-Demonstrate ADL Tasks, 2-Verbalize Understanding, 3- ImproveStrength/[place] 1=Demonstrate adherence to instructed precautions during ADL tasks. 2=Patient will verbalize/demonstrate understanding of assistive devices/modifications for ADL. 3=Patient will improve strength/tolerance for activity to enable patient to perform ADL's. OT Education/Plan Problem List/Assessment Assessment: Decreased Activ Tolerance, Decreased Safety Aware, Decreased UE Strength, Impaired Bed Mobility, Impaired Funct Balance, Impaired I ADL's, Impaired Self-Care Skills Discharge Recommendations Plan/Recommendations: Continue POC Treatment Plan/Plan of Care Treatment,Training & Education: Yes Patient would benefit from OT for education, treatment and training to promote independence in ADL's, mobility, safety and/or upper extremity function for ADL's. Plan of Care: ADL Retraining, Caregiver Training, Functional Mobility, Group Exercise/Act as Ind, UE Funct Exercise/Act Treatment Duration: Dec 03, 2018 Frequency: 5 times per week Estimated Hrs Per Day: .25 hour per day Agreement: Yes Rehab Potential: Fair Time/GCodes Start Time: 13:30 Stop Time: 13:55 Billed Treatment Time EVM 15 minutes FA 10 minutes ROSANA LARKIN OT Nov 19, 2018 13:45
--- NOTE | 2018-11-19 14:00 | NUR ---
Pastoral care visit.
--- NOTE | 2018-11-19 15:36 | Progress Note ---
Subjective Subjective/Events-last exam States that she is still feeling weak. She still has [place] in place. Tolerating PO diet. States that she got up and took a shower this AM and felt weak but feeling better. Review of Systems Pulmonary: Dyspnea Cardiovascular: No: Chest Pain, Palpitations Gastrointestinal: No: Nausea, Vomiting, Diarrhea, Constipation Neurological: Weakness Objective Exam Last Set of Vital Signs Vital Signs Date Time Temp Pulse Resp B/P (MAP) Pulse Ox O2 Delivery O2 Flow Rate FiO2 11/19/18 12:39 97.5 73 18 110/71 (84) 99 Room Air 11/19/18 08:32 1.00 Capillary Refill : Less Than 3 Seconds I&O Intake and Output 11/19/18 00:00 Intake Total 3262 ml Output Total 4725 ml Balance -1463 ml Intake Oral 1512 ml IV Total 1750 ml Output Urine Total 4725 ml # Bowel Movements 1 Daily Weight Change No No General: Alert, Oriented X3, Cooperative, No Acute Distress HEENT: Mucous Memb Moist/[place] Lungs: Clear to Auscultation, Normal Air Movement Heart: Regular Rate, No Murmurs Abdomen: Soft, No Tenderness, No Hepatosplenomegaly Extremities: Other (1+ pitting edema bilaterally) Skin: No Rashes, No Breakdown Neuro: Other (Strength 4/5 LE bilaterally) Results/Procedures Lab Laboratory Tests 11/19/18 10:20: Sodium Level 134L, Potassium Level 4.6, Chloride Level 108H, Carbon Dioxide Level 18L, Anion Gap 8, Blood Urea Nitrogen 20H, Creatinine 1.27, Estimat Glomerular Filtration Rate 42, BUN/Creatinine Ratio 16, Glucose Level 195H, Calcium Level 8.3L Assessment/Plan Assessment/Plan (1) Acute kidney injury Status: Acute Assessment & Plan: 11/19: Improving but still above baseline, encourage PO hydration (2) Falls Status: Acute Assessment & Plan: 11/19: PT/OT, patient may need SNF stay Qualifiers: Qualified Codes: W19.XXXA - Unspecified fall, initial encounter (3) Dehydration Status: Acute (4) Debility Status: Acute (5) Body mass index (BMI) 45.0-49.9, adult Clinical Quality Measures DVT/VTE Risk/Contraindication: Risk Factor Score Per Nursin RFS Level Per Nursing on Admit: 4+=Very High MARIA DEL ROSARIO DEVINE MD Nov 19, 2018 15:36
[2018-11-19 16:00] VITALS: BP 112/73
[2018-11-19 19:29] VITALS: BP 132/74
[2018-11-20] VITALS: BP 121/79
[2018-11-20] MEDS: HYDROcodone/APAP 5 MG/325 MG (LORTAB) TAB PO PRN ×2 (00:38→14:29)
[2018-11-20 04:00] VITALS: BP 116/73
[2018-11-20 06:37] LABS: BASOPHILS % (AUTO) 0 % (0-10); EOSINOPHILS # (AUTO) 0.4 10^3/uL (0.0-0.3); EOSINOPHILS % (AUTO) 7 % (0-10); HEMATOCRIT 33 % (35-52); LYMPHOCYTES % (AUTO) 40 % (12-44); MEAN CORPUSCULAR HEMOGLOBIN 33 PG (25-34); MEAN CORPUSCULAR HGB CONC 34 G/DL (32-36); MEAN CORPUSCULAR VOLUME 97 FL (80-99); MEAN PLATELET VOLUME 9.7 FL (7.4-10.4); MONOCYTES # (AUTO) 0.5 X 10^3 (0.0-1.0); MONOCYTES % (AUTO) 9 % (0-12); NEUTROPHILS # (AUTO) 2.1 X 10^3 (1.8-7.8); NEUTROPHILS % (AUTO) 43 % (42-75); PLATELET COUNT 172 10^3/uL (130-400)
[2018-11-20 06:55] LABS: BUN/CREATININE RATIO 17; CALCIUM 8.5 MG/DL (8.5-10.1); CARBON DIOXIDE 17 MMOL/L (21-32); CHLORIDE 109 MMOL/L (98-107); CREATININE SERUM 0.93 MG/DL (0.60-1.30); GFR ESTIMATED > 60; GLUCOSE 161 MG/DL (70-105); POTASSIUM 4.7 MMOL/L (3.6-5.0); SODIUM 135 MMOL/L (135-145)
[2018-11-20 08:00] VITALS: BP 123/73
--- NOTE | 2018-11-20 09:25 | Physical Therapy Daily Note ---
PT Daily Note-Current Subjective Patient agrees to PT. Mental Status Patient Orientation: Normal For Age Transfers Therapy Code Descriptions/Definitions Functional Emmons Measure: 0=Not Assessed/NA 4=Minimal Assistance 1=Total Assistance 5=Supervision or Setup 2=Maximal Assistance 6=Modified Emmons 3=Moderate Assistance 7=Complete Emmons Therapy Quality Codes: 6 Independent with activity with or without an assistive device 5 Patient requires set up or clean up by helper. Patient completes activity by themselves 4 Supervision or touching assist (CGA). [place] provide cues , steadying assist 3 The helper provides less than half the effort to complete the activity 2 The helper provides more than half the effort to complete the activity 1 Dependent. The helper does all the effort to complete an activity 7 Patient refused to complete or attempt activity 9 The patient did not perform the activity before the current illness or injury 88 Not attempted due to Medical conditions or safety concerns Transfers (B, C, W/C) (FIM): 6 Scootin Rollin Supine to/from Sit: 6 Sit to/from Stand: 6 Bed to/from Chair: 6 Weight Bearing Right Lower Extremity: Right Weight Bearing/Tolerated Left Lower Extremity: Left Weight Bearing/Tolerated Gait Training Gait (FIM): 6 Distance (FIM): 3=150 ft Distance: 150' Gait Level of Assist: 6 Gait Assistive Device: FWW slow, functional gait sequence Assessment Patient tolerated treatment well and has been up in room independently per her report. Patient donned socks independently and toileted without difficulty PT Short Term Goals Short Term Goals Transfers (B,C,W/C) (FIM): 5 PT Correction Goals Mysql Database Developer Goals PT Correction Goals Time Frame: Nov 26, 2018 Transfers (B,C,W/C) (FIM): 6 Gait (FIM): 1 Gait distance (FIM): 1=up to 49 ft Distance: 25' Gait Level of Assist: 6 Gait Assistive Device: FWW PT Plan Treatment/Plan Treatment Plan: Continue Plan of Care Treatment Plan: Bed Mobility, Education, Functional Activity Ezra, Functional Strength, Gait, Safety, Therapeutic Exercise, Transfers Treatment Duration: Nov 26, 2018 Frequency: 6 times per week Estimated Hrs Per Day: .25 hour per day Patient and/or Family Agrees t: Yes Time/GCodes Time In: 826 Time Out: 841 Total Billed Treatment Time: 15 Total Billed Treatment 1 visit GT 15 min RENATA RYAN PT Nov 20, 2018 09:25
[2018-11-20] MEDS: PANTOPRAZOLE 40 MG (PROTONIX) TAB PO SCH (09:40)
--- NOTE | 2018-11-20 11:17 | Discharge Summary ---
Diagnosis/Chief Complaint Date of Admission Nov 17, 2018 at 22:20 Date of Discharge 11/20/2018 Admission Diagnosis Admission Diagnosis See problem list Discharge Diagnosis See below Problems/Diagnosis: (1) Acute kidney injury Assessment & Plan: 11/19: Improving but still above baseline, encourage PO hydration 11/20: Resolved and at baseline, off IVFs for 24 hrs Status: Resolved Resolution Date/Time: 11/20/18 @ 19:44 (2) Falls Assessment & Plan: 11/19: PT/OT, patient may need SNF stay 11/20: Working with PT, independent with walker Qualifiers: Qualified Codes: W19.XXXA - Unspecified fall, initial encounter Status: Acute (3) Dehydration Status: Resolved Resolution Date/Time: 11/20/18 @ 19:44 (4) Debility Status: Acute (5) Body mass index (BMI) 45.0-49.9, adult (6) Foreign body in esophagus Assessment & Plan: 11/20: Removed by Dr Lugo 11/17 Qualifiers: Qualified Codes: T18.108A - Unspecified foreign body in esophagus causing other injury, initial encounter Status: Acute Discharge Summary-Simple/Stand Procedures Foreign body removal from esophagus by Dr Lugo Consultations Dr Lugo General Surgery Discharge Physical Examination Allergies: Uncoded Allergies: IV CONTRAST (Adverse Reaction, Mild, HIVES, 09/17/18) Vitals & I&Os Vital Sign - Last 12Hours Date Time Temp Pulse Resp B/P (MAP) Pulse Ox O2 Delivery O2 Flow Rate FiO2 11/20/18 08:00 99.1 76 16 123/73 (90) 98 Room Air 11/19/18 08:32 1.00 Intake and Output 11/20/18 00:00 Intake Total 1642 ml Output Total 2500 ml Balance -858 ml General Appearance: Alert, Oriented X3, Cooperative, No Acute Distress HEENT: Mucous Memb Moist/[place] Respiratory: Clear to Auscultation, Normal Air Movement Cardiovascular: Regular Rate, No Murmurs Abdominal: Normal Bowel Sounds, Soft, No Tenderness, No Masses Extremities: No Edema, No Tenderness/Swelling Skin: No Rashes, No Breakdown Neuro: Normal Gait, Normal Speech, Strength at 5/5 X4 Ext, Sensation Intact, Cranial Nerves 3-12 NL Psych/Mental Status: Mental Status NL, Mood NL Hospital Course Was the Problem List Reviewed?: Yes See final discharge diagnosis. Discussion & Recommendations 63 yo F that presented after fall and found to have ELEANOR and abnormal electrolytes. Patient was started on IVFs and BUN/Cr resolved on day 3. She was also found to have a foreign body in her esophagus which was removed by Dr Ary long on 11/17. Patient did well with PT and was independent at time of discharge with walker. Will have close f.u with PCP Discharge Condition at discharge stable Instructions to patient/family Please see electronic discharge instructions given to patient. Discharge Medications Reviewed and agree with Discharge Medication list on patient's Discharge Instruction sheet Clinical Quality Measures DVT/VTE Risk/Contraindication: Risk Factor Score Per Nursin RFS Level Per Nursing on Admit: 4+=Very High Copy Copies To 1: KATIE HUDSON MD, HOLLY R MD Nov 20, 2018 11:17
[2018-11-20 12:00] VITALS: BP 128/79
[2018-11-20 16:31] VITALS: BP 143/83
[2018-11-20] MEDS: ACETAMINOPHEN 325 MG TABLET PO PRN (18:29)
[2018-11-20 19:00] VITALS: BP 143/83
--- NOTE | 2018-11-20 19:42 | Discharge Instructions ---
Discharge [facility] Reconcile Patient Problems Problems Reviewed?: Yes Discharge Medications New, Converted or Re-Newed RX: Other Continued Medications: Amitriptyline HCl (Amitriptyline HCl) 50 Mg Tablet 50 MG PO HS, TAB Atorvastatin Calcium (Atorvastatin Calcium) 40 Mg Tablet 40 MG PO DAILY, TAB Fluoxetine HCl (Fluoxetine HCl) 40 Mg Capsule 40 MG PO BID, CAP LAST FILLED #60 08-15-18 Gabapentin (Gabapentin) 600 Mg Tablet 600 MG PO TID, TAB Liraglutide (Victoza 3-John) 0.6 Mg/0.1 Ml Pen.injctr 1.8 MG SC DAILY, EA Losartan Potassium (Losartan Potassium) 50 Mg Tablet 50 MG PO DAILY, TAB Metformin HCl (Metformin HCl) 1,000 Mg Tablet 1000 MG PO BID, TAB Oxybutynin Chloride (Oxybutynin Chloride) 5 Mg Tablet 5 MG PO TID, TAB Discontinued Medications: Ibuprofen (Ibuprofen) 800 Mg Tablet 800 MG PO TID PRN for PAIN-MILD, TAB Sulfamethoxazole/Trimethoprim (Sulfamethoxazole-Tmp Ds Tablet) 1 Each Tablet 1 TAB PO BID for 10 Days, TAB 10 DAY SUPPLY FILLED 11-13-18 Activity & Diet Discharge Diet: Cardiac Diet Activity as Tolerated: Yes Copy Copies To 1: KATIE HUDSON MD, HOLLY R MD Nov 20, 2018 11:22
--- OUTSIDE RECORDS SUMMARY | 2018-11-23 14:25 | XMS REPORT ---
Author Author KATIE HUDSON Organization [facility] Address [address] [place] [address] Care Team Providers Care Social Media Director Name Role Phone KATIE HUDSON Unavailable PROBLEMS Type Condition ICD9-CM Code [id number] Code Onset Dates Condition Status SNOMED Code Problem CAD (coronary artery disease) I25.10 Active 04388666 Problem Osteoarthritis of knees, bilateral M17.0 Active 348129681 Problem Essential hypertension I10 Active 48969095 Problem Diabetes E11.9 Active 41746305 Problem Arthritis M19.90 Active 2783723 Problem Morbid obesity E66.01 Active 729453589 Problem Hyperlipemia E78.5 Active [id number] ALLERGIES No Information ENCOUNTERS Encounter Location Date Diagnosis [facility] [address] [address] Nov, [facility] [address] [address] Nov, [facility] [id number] [place] [address] Sep, [facility] [id number] [place] [address] Jul, [facility] [address] [address] Apr, [facility] [id number] [place] [address] Mar, Pustular lesion L08.9 and Encounter for immunization Z23 [facility] [id number] [place] [address] Feb, [facility] [address] [address] Dec, [facility] [address] [address] Dec, [facility] [id number] [place] [address] Dec, Diabetes E11.9 ; Essential hypertension I10 ; Arthritis M19.90 ; Urinary frequency R35.0 ; Routine adult health maintenance Z00.00 and BMI 45.0- 49.9, adult Z68.42 [facility] [id number] [place] [address] 18 Dec, 2017 [facility] [id number] [place] [address] Dec, [facility] [id number] [place] [address] Oct, [facility] [id number] [place] [address] Sep, Diabetes E11.9 [facility] [id number] [place] [address] Sep, Diabetes E11.9 ; Hyperlipemia E78.5 ; CAD (coronary artery disease) I25.10 ; Essential hypertension I10 and BMI 45.0-49.9, adult Z68.42 [facility] [id number] [place] [address] Sep, [facility] [id number] [place] [address] August, [facility] [id number] [place] [address] Jan, Dysuria R30.0 [facility] [id number] [place] [address] Jan, Dysuria R30.0 [facility] [id number] [place] [address] Jan, Osteoarthritis of knees, bilateral M17.0 [facility] [id number] [place] [address] 14 Nov, 2016 Dysuria R30.0 [facility] [id number] [place] [address] Oct, Blood in urine R31.9 ; Dysuria R30.0 ; Pharyngeal dysphagia R13.13 ; Acute cystitis with hematuria N30.01 ; CAD (coronary artery disease) I25.10 and Diabetes E11.9 [facility] [id number] [place] [address] Oct, [facility] [id number] [place] [address] Sep, Arthritis M19.90 ; Blood in urine R31.9 ; Diabetes E11.9 ; Acute cystitis with hematuria N30.01 and Pharyngoesophageal dysphagia R13.14 [facility] [id number] [place] [address] Sep, Osteoarthritis of knees, bilateral M17.0 [facility] [id number] [place] [address] Sep, Osteoarthritis of knees, bilateral M17.0 [facility] [id number] [place] [address] August, Arthritis M19.90 [facility] [id number] [place] [address] Jul, Arthritis M19.90 [facility] [id number] [place] [address] Jun, Arthritis M19.90 [facility] [id number] [place] [address] Jun, [facility] [id number] [place] [address] Jun, [facility] [id number] [place] [address] May, Diabetes E11.9 ; Dysuria R30.0 and Arthritis M19.90 [facility] [id number] [place] [address] Apr, [facility] [id number] [place] [address] Apr, Arthritis M19.90 [facility] [id number] [place] [address] Mar, Arthritis M19.90 [facility] [id number] [place] [address] Feb, [facility] [id number] [place] [address] Jan, [facility] [id number] [place] [address] Dec, Diabetes E11.9 and Arthritis M19.90 [facility] [id number] [place] [address] Dec, [facility] [id number] [place] [address] Nov, Arthritis M19.90 [facility] [id number] [place] [address] Nov, [facility] [id number] [place] [address] Oct, Arthritis M19.90 [facility] [address] [place] [address] Sep, Osteoarthritis of knees, bilateral M17.0 [facility] [id number] [place] [address] Sep, Osteoarthritis of knees, bilateral M17.0 [facility] [address] [place] [address] August, Arthritis M19.90 [facility] [address] [address] August, [facility] [id number] [place] [address] Jul, Hyperlipemia E78.5 [facility] [address], [place] [address] Jul, Encounter for well woman exam Z01.419 ; Morbid obesity E66.01 ; Encounter for screening for malignant neoplasm of cervix Z12.4 and Encounter for screening mammogram for breast cancer Z12.31 [place] [address] [place] [address] Jul, Arthritis M19.90 ; Diabetes E11.9 ; Blood in urine R31.9 and UTI (urinary tract infection) N39.0 [place] [address] [address] Jul, [facility] [address] [address] Jun, Arthritis M19.90 [facility] [id number] [place] [address] May, Arthritis M19.90 [facility] [address] [address] May, [facility] [address] [address] Apr, [facility] [address] [address] Apr, Arthritis M19.90 ; Diabetes E11.9 and Morbid obesity E66.01 [facility] [address] [address] Apr, [facility] [address] [address] Apr, Dyspareunia N94.1 [facility] [address] [address] 15 Apr, 2015 [facility] [id number] [place] [address] 15 Apr, 2015 [facility] [id number] [place] [address] 14 Apr, 2015 Osteoarthritis of knees, bilateral M17.0 [facility] [id number] [place] [address] Apr, Diabetes E11.9 and CAD (coronary artery disease) I25.10 [facility] [id number] [place] [address] Mar, [facility] [id number] [place] [address] Feb, [facility] [id number] [place] [address] Jan, [facility] [address] [place] [address] Jan, [facility] [id number] [place] [address] Jan, [facility] [address] [place] [address] Jan, Osteoarthritis of knees, bilateral M17.0 [facility] [address] [place] [address] 30 Dec, 2014 [facility] [address] [address] 17 Dec, 2014 [facility] [address] [place] [address] 10 Dec, 2014 [facility] [address], [place] [address] 08 Dec, 2014 Diabetes mellitus 250.00 and UTI (urinary tract infection) 599.0 [facility] [address] [id number] [place] [address] Dec, [facility] [place] [facility] [address] [id number] [place] [address] Nov, [facility] [place] [facility] [address] [id number] [place] [address] Oct, [facility] [place] [facility] [address] [id number] [place] [address] Oct, [facility] [place] [facility] [address] [id number] [place] [address] Oct, [facility] [place] [facility] [address] [id number] [place] [address] Oct, [facility] [place] [facility] [address] [id number] [place] [address] Oct, [facility] [place] [facility] [address] [id number] [place] [address] Sep, [facility] [place] [facility] [address] [id number] [place] [address] August, [facility] [place] [facility] [address] [id number] [place] [address] August, [facility] [place] [facility] [address] [id number] [place] [address] August, [facility] [place] [facility] [address] [id number] [place] [address] Jul, [facility] [place] [facility] [address] [id number] [place] [address] Jul, [facility] [place] [facility] [address] [id number] [place] [address] Jul, [facility] [place] [facility] [address] [id number] [place] [address] Jun, [facility] [place] [facility] [address] [id number] [place] [address] Jun, [facility] [place] [facility] [address] [id number] [place] [address] Jun, [facility] [place] [facility] [address] [id number] [place] [address] Jun, [facility] [place] [facility] [address] [facility] [id number] [place] [address] Jun, [facility] [place] [facility] [address] [facility] [id number] [place] [address] Jun, [facility] [place] [facility] [address] [id number] [place] [address] Jun, [facility] [place] [facility] [address] [facility] [id number] [place] [address] Jun, [facility] [place] [facility] [address] [facility] [id number] [place] [address] May, [facility] [place] [facility] [address] [facility] [id number] [place] [address] May, [facility] [place] [facility] [address] [facility] [id number] [place] [address] May, 2014 [facility] [place] [facility] [address] [facility] [id number] [place] [address] May, [facility] [place] [facility] [address] [facility] [id number] [place] [address] May, 2014 [facility] [place] [facility] [address] [facility] [id number], [place] [address] May, 2014 [facility] [place] [facility] [address] [facility] [id number] [place] [address] May, 2014 [facility] [place] [facility] [address] [facility] [id number] [place] [address] May, 2014 [facility] [place] [facility] [address] [facility] [id number], [place] [address] May, 2014 [facility] [place] [facility] [address] [id number] [place] [address] May, 2014 [facility] [place] [facility] [address] [id number] [place] [address] May, [facility] [place] [facility] [address] [id number] [place] [address] May, [facility] [place] [facility] [address] [id number] [place] [address] Apr, [facility] [place] [facility] [address] [id number] [place] [address] Apr, [facility] [place] [facility] [address] [id number] [place] [address] Mar, [facility] [place] [facility] [address] [id number] [place] [address] Mar, [facility] [place] [facility] [address] [id number] [place] [address] Mar, [facility] [place] [facility] [address] [id number] [place] [address] Mar, [facility] [place] [facility] [address] [id number] [place] [address] Mar, [facility] [place] [facility] [address] [id number] [place] [address] Mar, [facility] [place] [facility] [address] [id number] [place] [address] Feb, [facility] [place] [facility] [address] [id number] [place] [address] Feb, [facility] [place] [facility] [address] [id number] [place] [address] Feb, [facility] [place] [facility] [address] [id number] [place] [address] Feb, [facility] [place] [facility] [address] [id number], [place] [address] Feb, [facility] [place] [facility] [address] [id number] [place] [address] Feb, [facility] [place] [facility] [address] [id number] [place] [address] Feb, [facility] [place] [facility] [address] [id number] [place] [address] Feb, [facility] [place] [facility] [address] [id number] [place] [address] Feb, [facility] [place] [facility] [address] [id number] [place] [address] Jan, [facility] [place] [facility] [address] [id number] [place] [address] Jan, [facility] [place] [facility] [address] [id number] [place] [address] Jan, [facility] [place] [facility] [address] [id number] [place] [address] Jan, [facility] [place] [facility] [address] [id number] [place] [address] Jan, [facility] [place] [facility] [address] [id number] [place] [address] Jan, [facility] [place] [facility] [address] [id number], [place] [address] Jan, [facility] [place] [facility] [address] [id number], [place] [address] 17 Jan, 2014 [facility] [place] [facility] [address] [id number] [place] [address] Jan, [facility] [place] [facility] [address] [id number] [place] [address] Jan, [facility] [place] [facility] [address] [id number] [place] [address] 19 Dec, 2013 [facility] [place] [facility] [address] [id number] [place] [address] Dec, [facility] [place] [facility] [address] [id number] [place] [address] Dec, [facility] [place] [facility] [address] [id number] [place] [address] Dec, [facility] [place] [facility] [address] [id number] [place] [address] Nov, [facility] [place] [facility] [address] [id number] [place] [address] Nov, [facility] [place] [facility] [address] [id number] [place] [address] Nov, [facility] [place] [facility] [address] [id number] [place] [address] Nov, [facility] [place] [facility] [address] [id number] [place] [address] Nov, [facility] [place] [facility] [address] [id number] [place] [address] Nov, [facility] [place] [facility] [address] [id number] [place] [address] Nov, [facility] [place] [facility] [address] [id number] [place] [address] Nov, [facility] [place] [facility] [address] [id number] [place] [address] Nov, [facility] [place] [facility] [address] [id number] [place] [address] Oct, [facility] [place] [facility] [address] [id number] [place] [address] Oct, [facility] [place] [facility] [address] [id number] [place] [address] Sep, [facility] [place] [facility] [address] [id number] [place] [address] Sep, [facility] [place] [facility] [address] [id number] [place] [address] Sep, [facility] [place] [facility] [address] [id number] [place] [address] Sep, [facility] [place] [facility] [address] [id number] [place] [address] Sep, [facility] [place] [facility] [address] [id number] [place] [address] Sep, [facility] [place] [facility] [address] [id number] [place] [address] Sep, [facility] [place] [facility] [address] [id number] [place] [address] Sep, [facility] [place] [facility] [address] [id number] [place] [address] Sep, [facility] [place] [facility] [address] [id number] [place] [address] Sep, [facility] [place] [facility] [address] [id number] [place] [address] Sep, [facility] [place] [facility] [address] [id number] [place] [address] Sep, [facility] [place] [facility] [address] [id number] [place] [address] Sep, [facility] [place] [facility] [address] [id number] [place] [address] Sep, [facility] [place] [facility] [address] [id number] [place] [address] August, [facility] [place] [facility] [address] [id number] [place] [address] August, [facility] [place] [facility] [address] [id number] [place] [address] August, [facility] [place] [facility] [address] [id number] [place] [address] August, [facility] [place] [facility] [address] [id number] [place] [address] Jul, [facility] [place] [facility] [address] [id number] [place] [address] Jul, [facility] [place] [facility] [address] [facility] [id number] [place] [address] Jul, [facility] [place] [facility] [address] [id number] [place] [address] Jul, [facility] [place] [facility] [address] [id number] [place] [address] Jun, [facility] [place] [facility] [address] [facility] [id number] [place] [address] Jun, [facility] [place] [facility] [address] [id number] [place] [address] May, [facility] [place] [facility] [address] [id number] [place] [address] May, [facility] [place] [facility] [address] [facility] [id number] [place] [address] May, [facility] [place] [facility] [address] [facility] [id number] [place] [address] May, [facility] [place] [facility] [address] [facility] [id number] [place] [address] May, [facility] [place] [facility] [address] [facility] [id number] [place] [address] May, [facility] [place] [facility] [address] [facility] [id number] [place] [address] May, [facility] [place] [facility] [address] [facility] [id number] [place] [address] May, [facility] [place] [facility] [address] [facility] [id number] [place] [address] May, [facility] [place] [facility] [address] [id number] [place] [address] Apr, [facility] [place] [facility] [address] [id number] [place] [address] Apr, [facility] [place] [facility] [address] [id number] [place] [address] Apr, [facility] [place] [facility] [address] [id number] [place] [address] Apr, [facility] [place] [facility] [address] [id number] [place] [address] Apr, [facility] [place] [facility] [address] [id number] [place] [address] Mar, [facility] [place] [facility] [address] [id number] [place] [address] Mar, [facility] [place] [facility] [address] [id number] [place] [address] Feb, [facility] [place] [facility] [address] [id number] [place] [address] Feb, [facility] [place] [facility] [address] [id number] [place] [address] Feb, [facility] [place] [facility] [address] [id number], [place] [address] Feb, [facility] [place] [facility] [address] [id number], [place] [address] Feb, [facility] [place] [facility] [address] [id number] [place] [address] Feb, [facility] [place] [facility] [address] [id number], [place] [address] Feb, [facility] [place] [facility] [address] [id number] [place] [address] Feb, [facility] [place] [facility] [address] [id number] [place] [address] Feb, [facility] [place] [facility] [address] [id number] [place] [address] Jan, [facility] [place] [facility] [address] [id number] [place] [address] Jan, [facility] [place] [facility] [address] [id number] [place] [address] Jan, [facility] [place] [facility] [address] [id number] [place] [address] Jan, [facility] [place] [facility] [address] [id number] [place] [address] Jan, [facility] [place] [facility] [address] [id number] [place] [address] Dec, [facility] [place] [facility] [address] [id number] [place] [address] Dec, [facility] [place] [facility] [address] [id number] [place] [address] Nov, [facility] [place] [facility] [address] [id number] [place] [address] Nov, [facility] [place] [facility] [address] [id number] [place] [address] Oct, [facility] [place] [facility] [address] [id number] [place] [address] Oct, [facility] [place] [facility] [address] [id number] [place] [address] Oct, [facility] [place] [facility] [address] [id number] [place] [address] Sep, [facility] [place] [facility] [address] [id number] [place] [address] Sep, [facility] [place] [facility] [address] [id number] [place] [address] Sep, [facility] [place] [facility] [address] [id number] [place] [address] August, [facility] [address] [id number] [place] [address] August, [facility] [address] [id number] [place] [address] August, [facility] [address] [id number] [place] [address] August, [facility] [address] [id number] [place] [address] Jul, [facility] [address] [id number] [place] [address] Jun, [facility] [address] [id number] [place] [address] Jun, [facility] [address] [id number] [place] [address] Jun, [facility] [address] [id number] [place] [address] May, [facility] [address] [id number] [place] [address] May, [facility] [place] [facility] [address] [id number] [place] [address] May, [facility] [address] [id number] [place] [address] May, [facility] [place] [facility] [address] [id number] [place] [address] Apr, [facility] [place] [facility] [address] [id number] [place] [address] Apr, [facility] [place] [facility] [address] [id number] [place] [address] Apr, [facility] [place] [facility] [address] [id number], [place] [address] Apr, [facility] [address] [id number] [place] [address] Apr, [facility] [place] [facility] [address] [id number] [place] [address] Mar, [facility] [place] [facility] [address] [id number] [place] [address] Mar, [facility] [place] [facility] [address] [id number] [place] [address] Mar, [facility] [place] [facility] [address] [id number] [place] [address] Mar, [facility] [place] [facility] [address] [id number] [place] [address] Mar, [facility] [place] [facility] [address] [id number] [place] [address] Mar, [facility] [place] [facility] [address] [id number] [place] [address] Mar, [facility] [place] [facility] [address] [id number] [place] [address] Feb, [facility] [place] [facility] [address] [facility] [id number] [place] [address] Feb, [facility] [place] [facility] [address] [id number] [place] [address] Feb, [facility] [place] [facility] [address] [id number] [place] [address] Feb, [facility] [place] [facility] [address] [id number] [place] [address] Feb, [facility] [place] [facility] [address] [facility] [id number] [place] [address] Feb, [facility] [place] [facility] [address] [facility] [id number] [place] [address] Feb, [facility] [place] [facility] [address] [id number] [place] [address] Feb, [facility] [place] [facility] [address] [id number] [place] [address] Jan, [facility] [place] [facility] [address] [id number] [place] [address] Jan, [facility] [place] [facility] [address] [id number] [place] [address] Jan, [facility] [place] [facility] [address] [id number] [place] [address] Jan, [facility] [place] [facility] [address] [id number] [place] [address] 27 Dec, 2011 [facility] [place] [facility] [address] [id number] [place] [address] 25 Dec, 2011 [facility] [place] [facility] [address] [id number] [place] [address] 18 Dec, 2011 [facility] [place] [facility] [address] [id number] [place] [address] 13 Dec, 2011 [facility] [place] [facility] [address] [id number] [place] [address] Dec, [facility] [place] [facility] [address] [id number] [place] [address] Oct, [facility] [place] [facility] [address] [id number] [place] [address] Oct, [facility] [place] [facility] [address] [id number] [place] [address] Sep, [facility] [place] [facility] [address] [id number] [place] [address] Sep, [facility] [place] [facility] [address] [id number] [place] [address] August, [facility] [place] [facility] [address] [id number] [place] [address] August, [facility] [place] [facility] [address] [id number] [place] [address] 04 Jul, 2011 [facility] [place] [facility] [address] [id number] [place] [address] Jun, [facility] [place] [facility] [address] [id number] [place] [address] Jun, [facility] [place] [facility] [address] [id number] [place] [address] 23 Jun, 2011 [facility] [place] [facility] [address] [id number] [place] [address] 19 Jun, 2011 [facility] [place] [facility] [address] [id number] [place] [address] Jun, [facility] [place] [facility] [address] [facility] [id number] [place] [address] 24 May, 2011 [facility] [place] [facility] [address] [id number] [place] [address] May, [facility] [place] [facility] [address] [facility] [id number] [place] [address] May, [facility] [place] [facility] [address] [facility] [id number] [place] [address] 14 May, 2011 [facility] [place] [facility] [address] [id number] [place] [address] 13 May, 2011 [facility] [place] [facility] [address] [id number] [place] [address] 03 May, 2011 [facility] [place] [facility] [address] [facility] [id number] [place] [address] 02 May, 2011 [facility] [place] [facility] [address] [facility] [id number] [place] [address] 02 May, 2011 [facility] [place] [facility] [address] [facility] [id number] [place] [address] Apr, [facility] [place] [facility] [address] [facility] [id number], [place] [address] Mar, [facility] [address] [facility] [id number], [place] [address] Mar, [facility] [address] [facility] [id number], [place] [address] Mar, [facility] [address] [facility] [id number], [place] [address] Mar, [facility] [address] [facility] [id number], [place] [address] Mar, [facility] [address] [facility] [id number], [place] [address] Jan, [facility] [address] [facility] [id number], [place] [address] Jan, [facility] [id number], [place] [address] Jan, [facility] [address] [facility] [id number], [place] [address] August, [facility] [address] [facility] [id number], [place] [address] Mar, [facility] [address] [id number] [address] Feb, [facility] [address] [id number] [address] 14 Jan, 2010 [facility] [address] [facility] [id number], [place] [address] Jan, IMMUNIZATIONS No Known Immunizations SOCIAL HISTORY [...]
--- OUTSIDE RECORDS SUMMARY | 2018-11-23 14:26 | XMS REPORT ---
Author Author KATIE HUDSON Organization [facility] Address [address] [place] [address] Care Team Providers Care Saw Maker Name Role Phone KATIE HUDSON Unavailable PROBLEMS Type Condition ICD9-CM Code WSY95-PI Code Onset Dates Condition Status SNOMED Code Problem CAD (coronary artery disease) I25.10 Active 92209476 Problem Osteoarthritis of knees, bilateral M17.0 Active 800172268 Problem Essential hypertension I10 Active 32478548 Problem Diabetes E11.9 Active 89192779 Problem Arthritis M19.90 Active 3585014 Problem Morbid obesity E66.01 Active 022431143 Problem Hyperlipemia E78.5 Active [id number] ALLERGIES No Information ENCOUNTERS Encounter Location Date Diagnosis [facility] [address] [address] Nov, [facility] [address] [address] Nov, [facility] [id number] [place] [address] Sep, [facility] [id number] [place] [address] Jul, [facility] [address] [address] Apr, [facility] [id number] [place] [address] Mar, Pustular lesion L08.9 and Encounter for immunization Z23 [facility] [id number] [place] [address] Feb, [facility] [address] [address] Dec, [facility] [address] [address] Dec, [facility] [id number] [place] [address] Dec, Diabetes E11.9 ; Essential hypertension I10 ; Arthritis M19.90 ; Urinary frequency R35.0 ; Routine adult health maintenance Z00.00 and BMI 45.0- 49.9, adult Z68.42 [facility] [id number] [place] [address] 18 Dec, 2017 [facility] [id number] [place] [address] Dec, [facility] [id number] [place] [address] Oct, [facility] [id number] [place] [address] Sep, Diabetes E11.9 [facility] [id number] [place] [address] Sep, Diabetes E11.9 ; Hyperlipemia E78.5 ; CAD (coronary artery disease) I25.10 ; Essential hypertension I10 and BMI 45.0-49.9, adult Z68.42 [facility] [id number] [place] [address] Sep, [facility] [id number] [place] [address] August, [facility] [id number] [place] [address] Jan, Dysuria R30.0 [facility] [id number] [place] [address] Jan, Dysuria R30.0 [facility] [id number] [place] [address] Jan, Osteoarthritis of knees, bilateral M17.0 [facility] [id number] [place] [address] 14 Nov, 2016 Dysuria R30.0 [facility] [id number] [place] [address] Oct, Blood in urine R31.9 ; Dysuria R30.0 ; Pharyngeal dysphagia R13.13 ; Acute cystitis with hematuria N30.01 ; CAD (coronary artery disease) I25.10 and Diabetes E11.9 [facility] [id number] [place] [address] Oct, [facility] [id number] [place] [address] Sep, Arthritis M19.90 ; Blood in urine R31.9 ; Diabetes E11.9 ; Acute cystitis with hematuria N30.01 and Pharyngoesophageal dysphagia R13.14 [facility] [id number] [place] [address] Sep, Osteoarthritis of knees, bilateral M17.0 [facility] [id number] [place] [address] Sep, Osteoarthritis of knees, bilateral M17.0 [facility] [id number] [place] [address] August, Arthritis M19.90 [facility] [id number] [place] [address] Jul, Arthritis M19.90 [facility] [id number] [place] [address] Jun, Arthritis M19.90 [facility] [id number] [place] [address] Jun, [facility] [id number] [place] [address] Jun, [facility] [id number] [place] [address] May, Diabetes E11.9 ; Dysuria R30.0 and Arthritis M19.90 [facility] [id number] [place] [address] Apr, [facility] [id number] [place] [address] Apr, Arthritis M19.90 [facility] [id number] [place] [address] Mar, Arthritis M19.90 [facility] [id number] [place] [address] Feb, [facility] [id number] [place] [address] Jan, [facility] [id number] [place] [address] Dec, Diabetes E11.9 and Arthritis M19.90 [facility] [id number] [place] [address] Dec, [facility] [id number] [place] [address] Nov, Arthritis M19.90 [facility] [id number] [place] [address] Nov, [facility] [id number] [place] [address] Oct, Arthritis M19.90 [facility] [id number] [place] [address] Sep, Osteoarthritis of knees, bilateral M17.0 [facility] [id number] [place] [address] Sep, Osteoarthritis of knees, bilateral M17.0 [facility] [id number] [place] [address] August, Arthritis M19.90 [facility] [address] [address] August, [facility] [id number] [place] [address] Jul, Hyperlipemia E78.5 [facility] [address] [address] Jul, Encounter for well woman exam Z01.419 ; Morbid obesity E66.01 ; Encounter for screening for malignant neoplasm of cervix Z12.4 and Encounter for screening mammogram for breast cancer Z12.31 [place] [id number] [place] [address] Jul, Arthritis M19.90 ; Diabetes E11.9 ; Blood in urine R31.9 and UTI (urinary tract infection) N39.0 [place] [address] [address] Jul, [facility] [address] [address] Jun, Arthritis M19.90 [facility] [id number] [place] [address] May, Arthritis M19.90 [facility] [address] [address] May, [facility] [address] [address] Apr, [facility] [address] [address] Apr, Arthritis M19.90 ; Diabetes E11.9 and Morbid obesity E66.01 [facility] [address] [address] Apr, [facility] [address] [address] Apr, Dyspareunia N94.1 [facility] [address] [address] 15 Apr, 2015 [facility] [id number] [place] [address] 15 Apr, 2015 [facility] [id number] [place] [address] 14 Apr, 2015 Osteoarthritis of knees, bilateral M17.0 [facility] [id number] [place] [address] Apr, Diabetes E11.9 and CAD (coronary artery disease) I25.10 [facility] [id number] [place] [address] Mar, [facility] [id number] [place] [address] Feb, [facility] [id number] [place] [address] Jan, [facility] [id number] [place] [address] Jan, [facility] [id number] [place] [address] Jan, [facility] [id number] [place] [address] Jan, Osteoarthritis of knees, bilateral M17.0 [facility] [id number] [place] [address] 30 Dec, 2014 [facility] [address] [address] 17 Dec, 2014 [facility] [id number] [place] [address] 10 Dec, 2014 [facility] [address] [address] 08 Dec, 2014 Diabetes mellitus 250.00 and UTI (urinary tract infection) 599.0 [facility] [address] [id number] [place] [address] Dec, [facility] [place] [facility] [address] [id number] [place] [address] Nov, [facility] [place] [facility] [address] [id number] [place] [address] Oct, [facility] [place] [facility] [address] [id number] [place] [address] Oct, [facility] [place] [facility] [address] [id number] [place] [address] Oct, [facility] [place] [facility] [address] [id number] [place] [address] Oct, [facility] [place] [facility] [address] [id number] [place] [address] Oct, [facility] [place] [facility] [address] [id number] [place] [address] Sep, [facility] [place] [facility] [address] [id number] [place] [address] August, [facility] [place] [facility] [address] [id number] [place] [address] August, [facility] [place] [facility] [address] [id number] [place] [address] August, [facility] [place] [facility] [address] [id number] [place] [address] Jul, [facility] [place] [facility] [address] [id number] [place] [address] Jul, [facility] [place] [facility] [address] [id number] [place] [address] Jul, [facility] [place] [facility] [address] [id number] [place] [address] Jun, [facility] [place] [facility] [address] [id number] [place] [address] Jun, [facility] [place] [facility] [address] [id number] [place] [address] Jun, [facility] [place] [facility] [address] [id number] [place] [address] Jun, [facility] [place] [facility] [address] [facility] [facility] [id number] [place] [address] Jun, [facility] [place] [facility] [address] [facility] [id number] [place] [address] Jun, [facility] [place] [facility] [address] [id number] [place] [address] Jun, [facility] [place] [facility] [address] [facility] [id number] [place] [address] Jun, [facility] [place] [facility] [address] [facility] [id number] [place] [address] May, [facility] [place] [facility] [address] [facility] [id number] [place] [address] May, [facility] [place] [facility] [address] [facility] [id number] [place] [address] May, 2014 [facility] [place] [facility] [address] [facility] [id number] [place] [address] May, [facility] [place] [facility] [address] [facility] [id number] [place] [address] May, 2014 [facility] [place] [facility] [address] [facility] [id number] [address] May, 2014 [facility] [place] [facility] [address] [facility] [id number] [place] [address] May, 2014 [facility] [place] [facility] [address] [facility] [id number] [place] [address] May, 2014 [facility] [place] [facility] [address] [facility] [id number] [address] May, 2014 [facility] [place] [facility] [address] [id number] [place] [address] May, 2014 [facility] [place] [facility] [address] [id number] [place] [address] May, [facility] [place] [facility] [address] [id number] [place] [address] May, [facility] [place] [facility] [address] [id number] [place] [address] Apr, [facility] [place] [facility] [address] [id number] [place] [address] Apr, [facility] [place] [facility] [address] [id number] [place] [address] Mar, [facility] [place] [facility] [address] [id number] [place] [address] Mar, [facility] [place] [facility] [address] [id number] [place] [address] Mar, [facility] [place] [facility] [address] [id number] [place] [address] Mar, [facility] [place] [facility] [address] [id number] [place] [address] Mar, [facility] [place] [facility] [address] [id number] [place] [address] Mar, [facility] [place] [facility] [address] [id number] [place] [address] Feb, [facility] [place] [facility] [address] [id number] [place] [address] Feb, [facility] [place] [facility] [address] [id number] [place] [address] Feb, [facility] [place] [facility] [address] [id number] [place] [address] Feb, [facility] [place] [facility] [address] [id number] [address] Feb, [facility] [place] [facility] [address] [id number] [place] [address] Feb, [facility] [place] [facility] [address] [id number] [place] [address] Feb, [facility] [place] [facility] [address] [id number] [place] [address] Feb, [facility] [place] [facility] [address] [id number] [place] [address] Feb, [facility] [place] [facility] [address] [id number] [place] [address] Jan, [facility] [place] [facility] [address] [id number] [place] [address] Jan, [facility] [place] [facility] [address] [id number] [place] [address] Jan, [facility] [place] [facility] [address] [id number] [place] [address] Jan, [facility] [place] [facility] [address] [id number] [place] [address] Jan, [facility] [place] [facility] [address] [id number] [place] [address] Jan, [facility] [place] [facility] [address] [id number] [address] Jan, [facility] [place] [facility] [address] [id number] [address] 17 Jan, 2014 [facility] [place] [facility] [address] [id number] [place] [address] Jan, [facility] [place] [facility] [address] [id number] [place] [address] Jan, [facility] [place] [facility] [address] [id number] [place] [address] 19 Dec, 2013 [facility] [place] [facility] [address] [id number] [place] [address] Dec, [facility] [place] [facility] [address] [id number] [place] [address] Dec, [facility] [place] [facility] [address] [id number] [place] [address] Dec, [facility] [place] [facility] [address] [id number] [place] [address] Nov, [facility] [place] [facility] [address] [id number] [place] [address] Nov, [facility] [place] [facility] [address] [id number] [place] [address] Nov, [facility] [place] [facility] [address] [id number] [place] [address] Nov, [facility] [place] [facility] [address] [id number] [place] [address] Nov, [facility] [place] [facility] [address] [id number] [place] [address] Nov, [facility] [place] [facility] [address] [id number] [place] [address] Nov, [facility] [place] [facility] [address] [id number] [place] [address] Nov, [facility] [place] [facility] [address] [id number] [place] [address] Nov, [facility] [place] [facility] [address] [id number] [place] [address] Oct, [facility] [place] [facility] [address] [id number] [place] [address] Oct, [facility] [place] [facility] [address] [id number] [place] [address] Sep, [facility] [place] [facility] [address] [id number] [place] [address] Sep, [facility] [place] [facility] [address] [id number] [place] [address] Sep, [facility] [place] [facility] [address] [id number] [place] [address] Sep, [facility] [place] [facility] [address] [id number] [place] [address] Sep, [facility] [place] [facility] [address] [id number] [place] [address] Sep, [facility] [place] [facility] [address] [id number] [place] [address] Sep, [facility] [place] [facility] [address] [id number] [place] [address] Sep, [facility] [place] [facility] [address] [id number] [place] [address] Sep, [facility] [place] [facility] [address] [id number] [place] [address] Sep, [facility] [place] [facility] [address] [id number] [place] [address] Sep, [facility] [place] [facility] [address] [id number] [place] [address] Sep, [facility] [place] [facility] [address] [id number] [place] [address] Sep, [facility] [place] [facility] [address] [id number] [place] [address] Sep, [facility] [place] [facility] [address] [id number] [place] [address] August, [facility] [place] [facility] [address] [id number] [place] [address] August, [facility] [place] [facility] [address] [id number] [place] [address] August, [facility] [place] [facility] [address] [id number] [place] [address] August, [facility] [place] [facility] [address] [id number] [place] [address] Jul, [facility] [place] [facility] [address] [id number] [place] [address] Jul, [facility] [place] [facility] [address] [facility] [id number] [place] [address] Jul, [facility] [place] [facility] [address] [id number] [place] [address] Jul, [facility] [place] [facility] [address] [id number] [place] [address] Jun, [facility] [place] [facility] [address] [facility] [id number] [place] [address] Jun, [facility] [place] [facility] [address] [id number] [place] [address] May, [facility] [place] [facility] [address] [id number] [place] [address] May, [facility] [place] [facility] [address] [facility] [id number] [place] [address] May, [facility] [place] [facility] [address] [facility] [id number] [place] [address] May, [facility] [place] [facility] [address] [facility] [id number] [place] [address] May, [facility] [place] [facility] [address] [facility] [id number] [place] [address] May, [facility] [place] [facility] [address] [facility] [id number] [place] [address] May, [facility] [place] [facility] [address] [facility] [id number] [place] [address] May, [facility] [place] [facility] [address] [facility] [id number] [place] [address] May, [facility] [place] [facility] [address] [id number] [place] [address] Apr, [facility] [place] [facility] [address] [id number] [place] [address] Apr, [facility] [place] [facility] [address] [id number] [place] [address] Apr, [facility] [place] [facility] [address] [id number] [place] [address] Apr, [facility] [place] [facility] [address] [id number] [place] [address] Apr, [facility] [place] [facility] [address] [id number] [place] [address] Mar, [facility] [place] [facility] [address] [id number] [place] [address] Mar, [facility] [place] [facility] [address] [id number] [place] [address] Feb, [facility] [place] [facility] [address] [id number] [place] [address] Feb, [facility] [place] [facility] [address] [id number] [place] [address] Feb, [facility] [place] [facility] [address] [id number] [address] Feb, [facility] [place] [facility] [address] [id number] [address] Feb, [facility] [place] [facility] [address] [id number] [place] [address] Feb, [facility] [place] [facility] [address] [id number] [address] Feb, [facility] [place] [facility] [address] [id number] [place] [address] Feb, [facility] [place] [facility] [address] [id number] [place] [address] Feb, [facility] [place] [facility] [address] [id number] [place] [address] Jan, [facility] [place] [facility] [address] [id number] [place] [address] Jan, [facility] [place] [facility] [address] [id number] [place] [address] Jan, [facility] [place] [facility] [address] [id number] [place] [address] Jan, [facility] [place] [facility] [address] [id number] [place] [address] Jan, [facility] [place] [facility] [address] [id number] [place] [address] Dec, [facility] [place] [facility] [address] [id number] [place] [address] Dec, [facility] [place] [facility] [address] [id number] [place] [address] Nov, [facility] [place] [facility] [address] [id number] [place] [address] Nov, [facility] [place] [facility] [address] [id number] [place] [address] Oct, [facility] [place] [facility] [address] [id number] [place] [address] Oct, [facility] [place] [facility] [address] [id number] [place] [address] Oct, [facility] [place] [facility] [address] [id number] [place] [address] Sep, [facility] [place] [facility] [address] [id number] [place] [address] Sep, [facility] [place] [facility] [address] [id number] [place] [address] Sep, [facility] [place] [facility] [address] [id number] [place] [address] August, [facility] [address] [id number] [place] [address] August, [facility] [address] [id number] [place] [address] August, [facility] [address] [id number] [place] [address] August, [facility] [address] [id number] [place] [address] Jul, [facility] [address] [id number] [place] [address] Jun, [facility] [address] [id number] [place] [address] Jun, [facility] [address] [id number] [place] [address] Jun, [facility] [address] [id number] [place] [address] May, [facility] [address] [id number] [place] [address] May, [facility] [facility] [place] [facility] [address] [id number] [place] [address] May, [facility] [address] [id number] [place] [address] May, [facility] [place] [facility] [address] [id number] [place] [address] Apr, [facility] [place] [facility] [address] [id number] [place] [address] Apr, [facility] [place] [facility] [address] [id number] [place] [address] Apr, [facility] [place] [facility] [address] [id number] [address] Apr, [facility] [address] [id number] [place] [address] Apr, [facility] [place] [facility] [address] [id number] [place] [address] Mar, [facility] [place] [facility] [address] [id number] [place] [address] Mar, [facility] [place] [facility] [address] [id number] [place] [address] Mar, [facility] [place] [facility] [address] [id number] [place] [address] Mar, [facility] [place] [facility] [address] [id number] [place] [address] Mar, [facility] [place] [facility] [address] [id number] [place] [address] Mar, [facility] [place] [facility] [address] [id number] [place] [address] Mar, [facility] [place] [facility] [address] [id number] [place] [address] Feb, [facility] [place] [facility] [address] [facility] [id number] [place] [address] Feb, [facility] [place] [facility] [address] [id number] [place] [address] Feb, [facility] [place] [facility] [address] [id number] [place] [address] Feb, [facility] [place] [facility] [address] [id number] [place] [address] Feb, [facility] [place] [facility] [address] [facility] [id number] [place] [address] Feb, [facility] [place] [facility] [address] [facility] [id number] [place] [address] Feb, [facility] [place] [facility] [address] [id number] [place] [address] Feb, [facility] [place] [facility] [address] [id number] [place] [address] Jan, [facility] [place] [facility] [address] [id number] [place] [address] Jan, [facility] [place] [facility] [address] [id number] [place] [address] Jan, [facility] [place] [facility] [address] [id number] [place] [address] Jan, [facility] [place] [facility] [address] [id number] [place] [address] 27 Dec, 2011 [facility] [place] [facility] [address] [id number] [place] [address] 25 Dec, 2011 [facility] [place] [facility] [address] [id number] [place] [address] 18 Dec, 2011 [facility] [place] [facility] [address] [id number] [place] [address] 13 Dec, 2011 [facility] [place] [facility] [address] [id number] [place] [address] Dec, [facility] [place] [facility] [address] [id number] [place] [address] Oct, [facility] [place] [facility] [address] [id number] [place] [address] Oct, [facility] [place] [facility] [address] [id number] [place] [address] Sep, [facility] [place] [facility] [address] [id number] [place] [address] Sep, [facility] [place] [facility] [address] [id number] [place] [address] August, [facility] [place] [facility] [address] [id number] [place] [address] August, [facility] [place] [facility] [address] [id number] [place] [address] 04 Jul, 2011 [facility] [place] [facility] [address] [id number] [place] [address] Jun, [facility] [place] [facility] [address] [id number] [place] [address] Jun, [facility] [place] [facility] [address] [id number] [place] [address] 23 Jun, 2011 [facility] [place] [facility] [address] [id number] [place] [address] 19 Jun, 2011 [facility] [place] [facility] [address] [id number] [place] [address] Jun, [facility] [place] [facility] [address] [facility] [id number] [place] [address] 24 May, 2011 [facility] [place] [facility] [address] [id number] [place] [address] May, [facility] [place] [facility] [address] [facility] [id number] [place] [address] May, [facility] [place] [facility] [address] [facility] [id number] [place] [address] 14 May, 2011 [facility] [place] [facility] [address] [id number] [place] [address] 13 May, 2011 [facility] [place] [facility] [address] [id number] [place] [address] 03 May, 2011 [facility] [place] [facility] [address] [facility] [id number] [place] [address] 02 May, 2011 [facility] [place] [facility] [address] [facility] [id number] [place] [address] 02 May, 2011 [facility] [place] [facility] [address] [facility] [id number] [place] [address] Apr, [facility] [place] [facility] [address] [facility] [id number] [place] [address] Mar, [facility] [address] [facility] [id number] [place] [address] Mar, [facility] [address] [facility] [id number] [place] [address] Mar, [facility] [address] [facility] [id number] [place] [address] Mar, [facility] [address] [facility] [id number] [place] [address] Mar, [facility] [address] [facility] [id number] [place] [address] Jan, [facility] [address] [facility] [id number] [place] [address] Jan, [facility] [id number] [address] Jan, [facility] [address] [facility] [id number] [place] [address] August, [facility] [address] [facility] [id number] [place] [address] Mar, [facility] [address] [id number] [address] Feb, [facility] [address] [id number] [address] 14 Jan, 2010 [facility] [address] [facility] [id number] [place] [address] Jan, IMMUNIZATIONS No Known Immunizations SOCIAL HISTORY [...]
--- OUTSIDE RECORDS SUMMARY | 2018-11-23 14:26 | XMS REPORT ---
Author Author KATIE HUDSON Organization [facility] Address [address] [place] [address] Care Team Providers Care Mds Manager Name Role Phone KATIE HUDSON Unavailable PROBLEMS Type Condition ICD9-CM Code YSS95-GD Code Onset Dates Condition Status SNOMED Code Problem CAD (coronary artery disease) I25.10 Active 38951915 Problem Osteoarthritis of knees, bilateral M17.0 Active 037042584 Problem Essential hypertension I10 Active 13096556 Problem Diabetes E11.9 Active 82768143 Problem Arthritis M19.90 Active 7996744 Problem Morbid obesity E66.01 Active 395545357 Problem Hyperlipemia E78.5 Active [id number] ALLERGIES No Information ENCOUNTERS Encounter Location Date Diagnosis [facility] [address] [address] Nov, [facility] [address] [address] Nov, [facility] [id number] [place] [address] Sep, [facility] [id number] [place] [address] Jul, [facility] [address] [address] Apr, [facility] [id number] [place] [address] Mar, Pustular lesion L08.9 and Encounter for immunization Z23 [facility] [id number] [place] [address] Feb, [facility] [address] [address] Dec, [facility] [address], [place] [address] Dec, [facility] [id number] [place] [address] Dec, Diabetes E11.9 ; Essential hypertension I10 ; Arthritis M19.90 ; Urinary frequency R35.0 ; Routine adult health maintenance Z00.00 and BMI 45.0- 49.9, adult Z68.42 [facility] [id number] [place] [address] 18 Dec, 2017 [facility] [id number] [place] [address] Dec, [facility] [id number] [place] [address] Oct, [facility] [id number] [place] [address] Sep, Diabetes E11.9 [facility] [id number] [place] [address] Sep, Diabetes E11.9 ; Hyperlipemia E78.5 ; CAD (coronary artery disease) I25.10 ; Essential hypertension I10 and BMI 45.0-49.9, adult Z68.42 [facility] [id number] [place] [address] Sep, [facility] [id number] [place] [address] August, [facility] [id number] [place] [address] Jan, Dysuria R30.0 [facility] [id number] [place] [address] Jan, Dysuria R30.0 [facility] [id number] [place] [address] Jan, Osteoarthritis of knees, bilateral M17.0 [facility] [id number] [place] [address] 14 Nov, 2016 Dysuria R30.0 [facility] [id number] [place] [address] Oct, Blood in urine R31.9 ; Dysuria R30.0 ; Pharyngeal dysphagia R13.13 ; Acute cystitis with hematuria N30.01 ; CAD (coronary artery disease) I25.10 and Diabetes E11.9 [facility] [id number] [place] [address] Oct, [facility] [id number] [place] [address] Sep, Arthritis M19.90 ; Blood in urine R31.9 ; Diabetes E11.9 ; Acute cystitis with hematuria N30.01 and Pharyngoesophageal dysphagia R13.14 [facility] [id number] [place] [address] Sep, Osteoarthritis of knees, bilateral M17.0 [facility] [id number] [place] [address] Sep, Osteoarthritis of knees, bilateral M17.0 [facility] [id number] [place] [address] August, Arthritis M19.90 [facility] [id number] [place] [address] Jul, Arthritis M19.90 [facility] [id number] [place] [address] Jun, Arthritis M19.90 [facility] [id number] [place] [address] Jun, [facility] [id number] [place] [address] Jun, [facility] [id number] [place] [address] May, Diabetes E11.9 ; Dysuria R30.0 and Arthritis M19.90 [facility] [id number] [place] [address] Apr, [facility] [id number] [place] [address] Apr, Arthritis M19.90 [facility] [id number] [place] [address] Mar, Arthritis M19.90 [facility] [id number] [place] [address] Feb, [facility] [id number] [place] [address] Jan, [facility] [id number] [place] [address] Dec, Diabetes E11.9 and Arthritis M19.90 [facility] [id number] [place] [address] Dec, [facility] [id number] [place] [address] Nov, Arthritis M19.90 [facility] [id number] [place] [address] Nov, [facility] [id number] [place] [address] Oct, Arthritis M19.90 [facility] [id number] [place] [address] Sep, Osteoarthritis of knees, bilateral M17.0 [facility] [id number] [place] [address] Sep, Osteoarthritis of knees, bilateral M17.0 [facility] [id number] [place] [address] August, Arthritis M19.90 [facility] [address], [place] [address] August, [facility] [id number] [place] [address] Jul, Hyperlipemia E78.5 [facility] [address], [place] [address] Jul, Encounter for well woman exam Z01.419 ; Morbid obesity E66.01 ; Encounter for screening for malignant neoplasm of cervix Z12.4 and Encounter for screening mammogram for breast cancer Z12.31 [id number] [place] [address] Jul, Arthritis M19.90 ; Diabetes E11.9 ; Blood in urine R31.9 and UTI (urinary tract infection) N39.0 [place] [address] [address] Jul, [facility] [address] [address] Jun, Arthritis M19.90 [facility] [id number] [place] [address] May, Arthritis M19.90 [facility] [address], [place] [address] May, [facility] [address] [address] Apr, [facility] [address], [place] [address] Apr, Arthritis M19.90 ; Diabetes E11.9 and Morbid obesity E66.01 [facility] [address], [place] [address] Apr, [facility] [address], [place] [address] Apr, Dyspareunia N94.1 [facility] [address] [address] 15 Apr, 2015 [facility] [id number] [place] [address] 15 Apr, 2015 [facility] [id number] [place] [address] 14 Apr, 2015 Osteoarthritis of knees, bilateral M17.0 [facility] [id number] [place] [address] Apr, Diabetes E11.9 and CAD (coronary artery disease) I25.10 [facility] [id number] [place] [address] Mar, [facility] [id number] [place] [address] Feb, [facility] [id number] [place] [address] Jan, [facility] [id number] [place] [address] Jan, [facility] [id number] [place] [address] Jan, [facility] [id number] [place] [address] Jan, Osteoarthritis of knees, bilateral M17.0 [facility] [id number] [place] [address] 30 Dec, 2014 [facility] [address], [place] [address] 17 Dec, 2014 [facility] [id number] [place] [address] 10 Dec, 2014 [facility] [address], [place] [address] 08 Dec, 2014 Diabetes mellitus 250.00 and UTI (urinary tract infection) 599.0 [facility] [address] [id number] [place] [address] Dec, [facility] [place] [facility] [address] [id number] [place] [address] Nov, [facility] [place] [facility] [address] [id number] [place] [address] Oct, [facility] [place] [facility] [address] [id number] [place] [address] Oct, [facility] [place] [facility] [address] [id number] [place] [address] Oct, [facility] [place] [facility] [address] [id number] [place] [address] Oct, [facility] [place] [facility] [address] [id number] [place] [address] Oct, [facility] [place] [facility] [address] [id number] [place] [address] Sep, [facility] [place] [facility] [address] [id number] [place] [address] August, [facility] [place] [facility] [address] [id number] [place] [address] August, [facility] [place] [facility] [address] [id number] [place] [address] August, [facility] [place] [facility] [address] [id number] [place] [address] Jul, [facility] [place] [facility] [address] [id number] [place] [address] Jul, [facility] [place] [facility] [address] [id number] [place] [address] Jul, [facility] [place] [facility] [address] [id number] [place] [address] Jun, [facility] [place] [facility] [address] [id number] [place] [address] Jun, [facility] [place] [facility] [address] [id number] [place] [address] Jun, [facility] [place] [facility] [address] [id number] [place] [address] Jun, [facility] [place] [facility] [address] [facility] [id number] [place] [address] Jun, [facility] [place] [facility] [address] [facility] [id number] [place] [address] Jun, [facility] [place] [facility] [address] [id number] [place] [address] Jun, [facility] [place] [facility] [address] [facility] [id number] [place] [address] Jun, [facility] [place] [facility] [address] [facility] [id number] [place] [address] May, [facility] [place] [facility] [address] [facility] [id number] [place] [address] May, [facility] [place] [facility] [address] [facility] [address] [id number] [place] [address] May, 2014 [facility] [place] [facility] [address] [facility] [id number] [place] [address] May, [facility] [place] [facility] [address] [facility] [address] [id number] [place] [address] May, 2014 [facility] [place] [facility] [address] [facility] [address] [id number] [address] May, 2014 [facility] [place] [facility] [address] [facility] [address] [id number] [place] [address] May, 2014 [facility] [place] [facility] [address] [facility] [address] [id number] [place] [address] May, 2014 [facility] [place] [facility] [address] [facility] [address] [id number] [address] May, 2014 [facility] [place] [facility] [address] [id number] [place] [address] May, 2014 [facility] [place] [facility] [address] [id number] [place] [address] May, [facility] [place] [facility] [address] [id number] [place] [address] May, [facility] [place] [facility] [address] [id number] [place] [address] Apr, [facility] [place] [facility] [address] [id number] [place] [address] Apr, [facility] [place] [facility] [address] [id number] [place] [address] Mar, [facility] [place] [facility] [address] [id number] [place] [address] Mar, [facility] [place] [facility] [address] [id number] [place] [address] Mar, [facility] [place] [facility] [address] [id number] [place] [address] Mar, [facility] [place] [facility] [address] [id number] [place] [address] Mar, [facility] [place] [facility] [address] [id number] [place] [address] Mar, [facility] [place] [facility] [address] [id number] [place] [address] Feb, [facility] [place] [facility] [address] [id number] [place] [address] Feb, [facility] [place] [facility] [address] [id number] [place] [address] Feb, [facility] [place] [facility] [address] [id number] [place] [address] Feb, [facility] [place] [facility] [address] [id number], [place] [address] Feb, [facility] [place] [facility] [address] [id number] [place] [address] Feb, [facility] [place] [facility] [address] [id number] [place] [address] Feb, [facility] [place] [facility] [address] [id number] [place] [address] Feb, [facility] [place] [facility] [address] [id number] [place] [address] Feb, [facility] [place] [facility] [address] [id number] [place] [address] Jan, [facility] [place] [facility] [address] [id number] [place] [address] Jan, [facility] [place] [facility] [address] [id number] [place] [address] Jan, [facility] [place] [facility] [address] [id number] [place] [address] Jan, [facility] [place] [facility] [address] [id number] [place] [address] Jan, [facility] [place] [facility] [address] [id number] [place] [address] Jan, [facility] [place] [facility] [address] [id number], [place] [address] Jan, [facility] [place] [facility] [address] [id number], [place] [address] 17 Jan, 2014 [facility] [place] [facility] [address] [id number] [place] [address] Jan, [facility] [place] [facility] [address] [id number] [place] [address] Jan, [facility] [place] [facility] [address] [id number] [place] [address] 19 Dec, 2013 [facility] [place] [facility] [address] [id number] [place] [address] Dec, [facility] [place] [facility] [address] [id number] [place] [address] Dec, [facility] [place] [facility] [address] [id number] [place] [address] Dec, [facility] [place] [facility] [address] [id number] [place] [address] Nov, [facility] [place] [facility] [address] [id number] [place] [address] Nov, [facility] [place] [facility] [address] [id number] [place] [address] Nov, [facility] [place] [facility] [address] [id number] [place] [address] Nov, [facility] [place] [facility] [address] [id number] [place] [address] Nov, [facility] [place] [facility] [address] [id number] [place] [address] Nov, [facility] [place] [facility] [address] [id number] [place] [address] Nov, [facility] [place] [facility] [address] [id number] [place] [address] Nov, [facility] [place] [facility] [address] [id number] [place] [address] Nov, [facility] [place] [facility] [address] [id number] [place] [address] Oct, [facility] [place] [facility] [address] [id number] [place] [address] Oct, [facility] [place] [facility] [address] [id number] [place] [address] Sep, [facility] [place] [facility] [address] [id number] [place] [address] Sep, [facility] [place] [facility] [address] [id number] [place] [address] Sep, [facility] [place] [facility] [address] [id number] [place] [address] Sep, [facility] [place] [facility] [address] [id number] [place] [address] Sep, [facility] [place] [facility] [address] [id number] [place] [address] Sep, [facility] [place] [facility] [address] [id number] [place] [address] Sep, [facility] [place] [facility] [address] [id number] [place] [address] Sep, [facility] [place] [facility] [address] [id number] [place] [address] Sep, [facility] [place] [facility] [address] [id number] [place] [address] Sep, [facility] [place] [facility] [address] [id number] [place] [address] Sep, [facility] [place] [facility] [address] [id number] [place] [address] Sep, [facility] [place] [facility] [address] [id number] [place] [address] Sep, [facility] [place] [facility] [address] [id number] [place] [address] Sep, [facility] [place] [facility] [address] [id number] [place] [address] August, [facility] [place] [facility] [address] [id number] [place] [address] August, [facility] [place] [facility] [address] [id number] [place] [address] August, [facility] [place] [facility] [address] [id number] [place] [address] August, [facility] [place] [facility] [address] [id number] [place] [address] Jul, [facility] [place] [facility] [address] [id number] [place] [address] Jul, [facility] [place] [facility] [address] [facility] [id number] [place] [address] Jul, [facility] [place] [facility] [address] [id number] [place] [address] Jul, [facility] [place] [facility] [address] [id number] [place] [address] Jun, [facility] [place] [facility] [address] [facility] [address] [id number] [place] [address] Jun, [facility] [place] [facility] [address] [id number] [place] [address] May, [facility] [place] [facility] [address] [id number] [place] [address] May, [facility] [place] [facility] [address] [facility] [id number] [place] [address] May, [facility] [place] [facility] [address] [facility] [address] [id number] [place] [address] May, [facility] [place] [facility] [address] [facility] [address] [id number] [place] [address] May, [facility] [place] [facility] [address] [facility] [address] [id number] [place] [address] May, [facility] [place] [facility] [address] [facility] [address] [id number] [place] [address] May, [facility] [place] [facility] [address] [facility] [address] [id number] [place] [address] May, [facility] [place] [facility] [address] [facility] [address] [id number] [place] [address] May, [facility] [place] [facility] [address] [id number] [place] [address] Apr, [facility] [place] [facility] [address] [id number] [place] [address] Apr, [facility] [place] [facility] [address] [id number] [place] [address] Apr, [facility] [place] [facility] [address] [id number] [place] [address] Apr, [facility] [place] [facility] [address] [id number] [place] [address] Apr, [facility] [place] [facility] [address] [id number] [place] [address] Mar, [facility] [place] [facility] [address] [id number] [place] [address] Mar, [facility] [place] [facility] [address] [id number] [place] [address] Feb, [facility] [place] [facility] [address] [id number] [place] [address] Feb, [facility] [place] [facility] [address] [id number] [place] [address] Feb, [facility] [place] [facility] [address] [id number], [place] [address] Feb, [facility] [place] [facility] [address] [id number], [place] [address] Feb, [facility] [place] [facility] [address] [id number] [place] [address] Feb, [facility] [place] [facility] [address] [id number], [place] [address] Feb, [facility] [place] [facility] [address] [id number] [place] [address] Feb, [facility] [place] [facility] [address] [id number] [place] [address] Feb, [facility] [place] [facility] [address] [id number] [place] [address] Jan, [facility] [place] [facility] [address] [id number] [place] [address] Jan, [facility] [place] [facility] [address] [id number] [place] [address] Jan, [facility] [place] [facility] [address] [id number] [place] [address] Jan, [facility] [place] [facility] [address] [id number] [place] [address] Jan, [facility] [place] [facility] [address] [id number] [place] [address] Dec, [facility] [place] [facility] [address] [id number] [place] [address] Dec, [facility] [place] [facility] [address] [id number] [place] [address] Nov, [facility] [place] [facility] [address] [id number] [place] [address] Nov, [facility] [place] [facility] [address] [id number] [place] [address] Oct, [facility] [place] [facility] [address] [id number] [place] [address] Oct, [facility] [place] [facility] [address] [id number] [place] [address] Oct, [facility] [place] [facility] [address] [id number] [place] [address] Sep, [facility] [place] [facility] [address] [id number] [place] [address] Sep, [facility] [place] [facility] [address] [id number] [place] [address] Sep, [facility] [place] [facility] [address] [id number] [place] [address] August, [facility] [address] [id number] [place] [address] August, [facility] [address] [id number] [place] [address] August, [facility] [address] [id number] [place] [address] August, [facility] [address] [id number] [place] [address] Jul, [facility] [address] [id number] [place] [address] Jun, [facility] [address] [id number] [place] [address] Jun, [facility] [facility] [address] [id number] [place] [address] Jun, [facility] [address] [id number] [place] [address] May, [facility] [address] [id number] [place] [address] May, [facility] [place] [facility] [address] [id number] [place] [address] May, [facility] [address] [id number] [place] [address] May, [facility] [place] [facility] [address] [id number] [place] [address] Apr, [facility] [place] [facility] [address] [id number] [place] [address] Apr, [facility] [place] [facility] [address] [id number] [place] [address] Apr, [facility] [place] [facility] [address] [id number], [place] [address] Apr, [facility] [address] [id number] [place] [address] Apr, [facility] [place] [facility] [address] [id number] [place] [address] Mar, [facility] [place] [facility] [address] [id number] [place] [address] Mar, [facility] [place] [facility] [address] [id number] [place] [address] Mar, [facility] [place] [facility] [address] [id number] [place] [address] Mar, [facility] [place] [facility] [address] [id number] [place] [address] Mar, [facility] [place] [facility] [address] [id number] [place] [address] Mar, [facility] [place] [facility] [address] [id number] [place] [address] Mar, [facility] [place] [facility] [address] [id number] [place] [address] Feb, [facility] [place] [facility] [address] [facility] [id number] [place] [address] Feb, [facility] [place] [facility] [address] [id number] [place] [address] Feb, [facility] [place] [facility] [address] [id number] [place] [address] Feb, [facility] [place] [facility] [address] [id number] [place] [address] Feb, [facility] [place] [facility] [address] [facility] [id number] [place] [address] Feb, [facility] [place] [facility] [address] [facility] [address] [id number] [place] [address] Feb, [facility] [place] [facility] [address] [id number] [place] [address] Feb, [facility] [place] [facility] [address] [id number] [place] [address] Jan, [facility] [place] [facility] [address] [id number] [place] [address] Jan, [facility] [place] [facility] [address] [id number] [place] [address] Jan, [facility] [place] [facility] [address] [id number] [place] [address] Jan, [facility] [place] [facility] [address] [id number] [place] [address] 27 Dec, 2011 [facility] [place] [facility] [address] [id number] [place] [address] 25 Dec, 2011 [facility] [place] [facility] [address] [id number] [place] [address] 18 Dec, 2011 [facility] [place] [facility] [address] [id number] [place] [address] 13 Dec, 2011 [facility] [place] [facility] [address] [id number] [place] [address] Dec, [facility] [place] [facility] [address] [id number] [place] [address] Oct, [facility] [place] [facility] [address] [id number] [place] [address] Oct, [facility] [place] [facility] [address] [id number] [place] [address] Sep, [facility] [place] [facility] [address] [id number] [place] [address] Sep, [facility] [place] [facility] [address] [id number] [place] [address] August, [facility] [place] [facility] [address] [id number] [place] [address] August, [facility] [place] [facility] [address] [id number] [place] [address] 04 Jul, 2011 [facility] [place] [facility] [address] [id number] [place] [address] Jun, [facility] [place] [facility] [address] [id number] [place] [address] Jun, [facility] [place] [facility] [address] [id number] [place] [address] 23 Jun, 2011 [facility] [place] [facility] [address] [id number] [place] [address] 19 Jun, 2011 [facility] [place] [facility] [address] [id number] [place] [address] Jun, [facility] [place] [facility] [address] [facility] [id number] [place] [address] 24 May, 2011 [facility] [place] [facility] [address] [id number] [place] [address] May, [facility] [place] [facility] [address] [facility] [address] [id number] [place] [address] May, [facility] [place] [facility] [address] [facility] [address] [id number] [place] [address] 14 May, 2011 [facility] [place] [facility] [address] [id number] [place] [address] 13 May, 2011 [facility] [place] [facility] [address] [id number] [place] [address] 03 May, 2011 [facility] [place] [facility] [address] [facility] [address] [id number] [place] [address] 02 May, 2011 [facility] [place] [facility] [address] [facility] [address] [id number] [place] [address] 02 May, 2011 [facility] [place] [facility] [address] [facility] [address] [id number] [place] [address] Apr, [facility] [place] [facility] [address] [facility] [address] [id number], [place] [address] Mar, [facility] [address] [facility] [address] [id number], [place] [address] Mar, [facility] [address] [facility] [address] [id number], [place] [address] Mar, [facility] [address] [facility] [address] [id number], [place] [address] Mar, [facility] [address] [facility] [address] [id number], [place] [address] Mar, [facility] [address] [facility] [address] [id number], [place] [address] Jan, [facility] [address] [facility] [address] [id number], [place] [address] Jan, [facility] [id number], [place] [address] Jan, [facility] [address] [facility] [address] [id number], [place] [address] August, [facility] [address] [facility] [address] [id number], [place] [address] Mar, [facility] [address] [id number], [place] [address] Feb, [facility] [address] [id number], [place] [address] 14 Jan, 2010 [facility] [address] [facility] [address] [id number], [place] [address] Jan, IMMUNIZATIONS No Known Immunizations SOCIAL HISTORY [...]
--- OUTSIDE RECORDS SUMMARY | 2018-11-23 14:45 | XMS REPORT | Continuity of Care Document ---
[...] KATIE 272.4 HYPERLIPIDEMIA UNSPECIFIED 06/23/2009 BECCA CACERES, KAITE 599.0 Urinary Tract Infection 06/23/2009 250.00 DIABETES [...] CACERES, KATIE 272.4 HYPERLIPIDEMIA UNSPECIFIED 06/23/2009 KATIE UHDSON MD 599.0 Urinary Tract Infection 06/23/2009 BECCA CACERES, KATIE 250.00 DIABETES II CONTROLLED 06/23/2009 BECCA CACERES, KATIE 272.4 HYPERLIPIDEMIA UNSPECIFIED 06/23/2009 BECCA CACERES, KATIE 599.0 Urinary Tract Infection 06/23/2009 BRITTANY MIRZA DO 250.00 DIABETES II CONTROLLED 06/23/2009 YUKI HERNADEZ, BRITTANY Vazquez 272.4 HYPERLIPIDEMIA UNSPECIFIED 06/23/2009 YUKI HERNADEZ, BRITTANY Vazquez 599.0 Urinary Tract Infection 06/23/2009 BECCA CCAERES, KATIE 250.00 DIABETES II CONTROLLED 06/23/2009 BECCA [...] 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 11/16/2010 BRITTANY MIRZA DO V72.31 Director Presales Exam, Routine 11/16/2010 BECCA CACERES, KATIE V72.31 Director Presales Exam, Routine 11/16/2010 V72.31 Director Presales Exam, Routine 11/16/2010 BECCA CACERES, KATIE V72.31 Director Presales Exam, Routine 11/16/2010 BECCA CACERES, KATIE V72.31 Director Presales Exam, Routine 11/16/2010 BECCA CACERES, KATIE V72.31 Director Presales Exam, Routine 11/16/2010 KATIE HUDSON MD V72.31 Director Presales Exam, Routine 11/16/2010 BRITTANY MIRZA DO V72.31 Director Presales Exam, Routine 11/16/2010 KATIE HUDSON MD V72.31 Director Presales Exam, Routine 11/16/2010 BRITTANY MIRZA DO V72.31 Director Presales Exam, Routine 11/16/2010 KATIE HUDSON MD V72.31 Director Presales Exam, Routine 11/16/2010 KATIE HUDSON MD V72.31 Director Presales Exam, Routine 11/16/2010 BRITTANY MIRZA DO V72.31 Director Presales Exam, Routine 11/16/2010 KATIE HUDSON MD V72.31 Director Presales Exam, Routine 11/16/2010 KATIE HUDSON MD V72.31 Director Presales Exam, Routine 11/16/2010 KATIE HUDSON MD V72.31 Director Presales Exam, Routine 01/25/2011 BRITTANY MIRZA DO V04.81 Flu Dx (3 Yrs And Above, Im) 01/25/2011 KATIE HUDSON MD V04.81 Flu Dx (3 Yrs And Above, Im) 01/25/2011 V04.81 Flu Dx (3 Yrs And Above, Im) 01/25/2011 KAITE HUDSON MD V04.81 Flu Dx (3 Yrs And Above, Im) 01/25/2011 KATIE HUDSON MD V04.81 Flu Dx (3 Yrs And Above, Im) 01/25/2011 KATIE HUDSON MD V04.81 Flu Dx (3 Yrs And Above, Im) 01/25/2011 KATIE UHDSON MD V04.81 Flu Dx (3 Yrs And [...] Procedures Code Description [place] [address] ROUTINE VENIPUNCTURE 03/16/2012 66525 UA W/ CULTURE IF INDICATED 03/16/2012 46443 URINE DRUG SCREEN (IN-HOUSE) 03/16/2012 74564 A1C (IN-HOUSE) 03/16/2012 49010 CBC 03/16/2012 42908 CMP 03/16/2012 56796 LIPID PANEL 03/16/2012 [id number] GFR CALC (RESULT ONLY) 03/16/2012 69372 CULTURE URINE 03/18/2012 93821 JOINT INJECTION- LARGE JOINT (SPECIFY MEDCIN DESCRIPTION) 03/22/2012 36821 ROUTINE VENIPUNCTURE 03/08/2013 21339 A1C (IN-HOUSE) 03/08/2013 [id number] GFR CALC (RESULT ONLY) 03/08/2013 89321 CMP 03/08/2013 34854 LIPID PANEL 03/08/2013 89647 JOINT INJECTION- LARGE JOINT (SPECIFY MEDCIN DESCRIPTION) 06/06/2013 28651 UA W/ CULTURE IF INDICATED 06/06/2013 43083 CULTURE URINE 06/08/2013 [facility] 09/26/2013 36533 A1C (IN-HOUSE) 09/26/2013 83836 UA W/ CULTURE IF INDICATED 09/26/2013 78217 CULTURE URINE 09/28/2013 80448 OXIMETRY - OVERNIGHT 10/07/2013 11048 A1C (IN-HOUSE) 02/06/2014 19379 JOINT INJECTION- LARGE JOINT (SPECIFY MEDCIN DESCRIPTION) 02/06/2014 J1040 DEPO MEDROL 80 MG INJ 02/06/2014 05523 ROUTINE VENIPUNCTURE 03/10/2014 [id number] GFR CALC (RESULT ONLY) 03/10/2014 41291 CMP 03/10/2014 Results Test Result Range Comp. [...] 1 Escherichia coli NRG Antimicrobial Susceptibility NRG [facility] - 10/06/17 16:29 GLUCOSE 121 mg/dL 65-99 UREA NITROGEN (BUN) 23 mg/dL 7-25 CREATININE 0.90 mg/dL 0.50-0.99 eGFR NON-AFR. STATELESS 69 mL/min/1.73m2 > OR=60 eGFR 79 mL/min/1.73m2 [...] 9.2 fL 7.5-12.5 ABSOLUTE NEUTROPHILS 4225 cells/uL 0304-2080 ABSOLUTE LYMPHOCYTES 1697 cells/uL 850-3900 ABSOLUTE MONOCYTES 397 cells/uL 200-950 ABSOLUTE EOSINOPHILS 150 cells/uL 15-500 ABSOLUTE BASOPHILS 33 cells/uL 0-200 NEUTROPHILS 65 % NRG LYMPHOCYTES 26.1 % NRG MONOCYTES 6.1 % NRG EOSINOPHILS 2.3 % NRG BASOPHILS 0.5 % NRG Encounters ACCT No. Visit Date/Time Discharge Status Pt. Type Provider Facility Loc./Unit Complaint [id number] 06/12/2014 14:34:00 06/12/2014 23:59:59 [facility] Outpatient KATIE HUDSON MD [id number] 03/10/2014 13:49:00 03/10/2014 23:59:59 CLS Outpatient KATIE HUDSON MD [id number] 02/06/2014 14:56:00 02/06/2014 23:59:59 CLS Outpatient BRITTANY MIRZA DO [id number] 02/06/2014 14:01:00 02/06/2014 23:59:59 CLS Outpatient KATIE HUDSON MD [id number] 09/26/2013 13:12:00 09/26/2013 23:59:59 [facility]INA Outpatient KATIE HUDSON MD [id number] 09/26/2013 13:12:00 09/26/2013 23:59:59 CLS Outpatient KATIE HUDSON MD [id number] 09/26/2013 12:43:00 09/26/2013 23:59:59 CLS Outpatient BRITTANY MIRZA DO [id number] 06/06/2013 14:02:00 06/06/2013 23:59:59 CLS Outpatient KATIE HUDSON MD [id number] 06/06/2013 13:04:00 06/06/2013 23:59:59 CLS Outpatient BRITTANY MIRZA DO [id number] 03/08/2013 14:26:00 03/08/2013 23:59:59 CLS Outpatient KATIE HUDSON MD [id number] 03/08/2013 14:26:00 03/08/2013 23:59:59 CLS Outpatient KATIE HUDSON MD [id number] 10/25/2012 15:19:00 10/25/2012 23:59:59 CLS Outpatient KATIE HUDSON MD [id number] 03/22/2012 13:00:00 03/22/2012 23:59:59 CLS Outpatient BRITTANY MIRZA DO [id number] 03/16/2012 10:37:00 03/16/2012 23:59:59 [place] [id number] 08/19/2011 09:42:00 08/19/2011 23:59:59 CLS Outpatient KATIE HUDSON MD [id number] 10/25/2012 15:19:00 Document Registration [id number] 01/15/2016 07:06:00 Document Registration [id number] 06/08/2016 03:06:00 Document Registration [id number] 01/29/2017 16:06:00 Document Registration [id number] 03/29/2018 14:20:00 03/29/2018 23:59:59 [facility] Outpatient [facility]ES[facility] [id number] 03/29/2018 14:20:00 Document Registration [id number] 10/06/2017 16:00:00 Document Registration [id number] 01/26/2017 15:00:00 Document Registration
== END 2018-11-20 11:19 | disposition home or self-care (01) ==
LOC: EDUNIT# 20:22 → ER 20:23 → UNDOADMIN 22:20 → 4TH 22:20 → UNDODISIN 11-20 19:05
PROVIDERS: ADMIT Internal Medicine; ATTEND Internal Medicine
DX: T18.2XXA Foreign body in stomach, initial encounter (principal); K25.9 Gastric ulcer, unspecified as acute or chronic, without hemorrhage or perforation; K29.60 Other gastritis without bleeding; K31.89 Other diseases of stomach and duodenum; N17.9 Acute kidney failure, unspecified; E86.0 Dehydration; S22.41XA Multiple fractures of ribs, right side, initial encounter for closed fracture; S80.02XA Contusion of left knee, initial encounter; Z68.42 Body mass index [BMI] 45.0-49.9, adult; K56.7 Ileus, unspecified; N28.9 Disorder of kidney and ureter, unspecified; M17.0 Bilateral primary osteoarthritis of knee; K44.9 Diaphragmatic hernia without obstruction or gangrene; J44.9 Chronic obstructive pulmonary disease, unspecified; I10 Essential (primary) hypertension; E78.00 Pure hypercholesterolemia, unspecified; E11.40 Type 2 diabetes mellitus with diabetic neuropathy, unspecified; F32.9 Major depressive disorder, single episode, unspecified; E66.9 Obesity, unspecified; F17.210 Nicotine dependence, cigarettes, uncomplicated; M25.551 Pain in right hip; W18.2XXA Fall in (into) shower or empty bathtub, initial encounter; Y92.002 Bathroom of unspecified non-institutional (private) residence as the place of occurrence of the external cause; Z86.73 Personal history of transient ischemic attack (TIA), and cerebral infarction without residual deficits; Z87.440 Personal history of urinary (tract) infections; Z91.041 Radiographic dye allergy status
CPT/HCPCS: 36415; 70450; 71045; 71250; 72125; 73502; 74176; 80048; 80053; 81000; 82550; 82962; 83735; 84484; 85025; 85610; 85730; 88305; 93005; 96361; 96365; 96375; 96376; G0378

== ENCOUNTER 2018-12-08 23:31 | Emergency (ER) | payer MEDICAID ==
[~2018-12-08] VITALS: Ht 167.6 cm; Wt 131.5 kg
[~2018-12-08 23:31] MED LIST changes: +SULF-222 PO
[2018-12-08] MEDS ORDERED: ONDANSETRON 4 MG/2 ML (SDV) Z0FRAN IVP ONE (23:45)
[2018-12-08] MEDS ORDERED: NS IV 1000 ML 1,000 ML IV SCH (23:45)
--- NOTE | 2018-12-08 23:51 | ED GI ---
General Chief Complaint: Lower Extremity Stated Complaint: NAUSEA; VOMITING Source of Information: Patient, EMS Exam Limitations: No Limitations History of Present Illness Date Seen by Provider: Dec 08, 2018 Time Seen by Provider: 23:46 Initial Comments Presents via EMS with complaint of nausea and vomiting with some abdominal cramping most of the afternoon and tonight. States that began after eating ice cream and that's all she is eaten today. No fever or chills. No chest pain or shortness of air. Normal bowel movement yesterday, none today. Denies constipation or diarrhea. History of similar symptoms in the past. Radiation: No Radiation Modifying Factors: Worsens With Eating Associated Symptoms: No Back Pain, No Chest Pain, No Diaphoresis, No Fever/Chills, No Headache, No Heartburn; Nausea/Vomiting; No Shortness of Air, No Weakness Allergies and Home Medications Allergies Uncoded Allergies: IV CONTRAST (Adverse Reaction, Mild, HIVES, 09/17/18) Home Medications Amitriptyline HCl 50 Mg Tablet, 50 MG PO HS, (Reported) Atorvastatin Calcium 40 Mg Tablet, 40 MG PO DAILY, (Reported) Fluoxetine HCl 40 Mg Capsule, 40 MG PO BID, (Reported) LAST FILLED #60 08-15-18 Gabapentin 600 Mg Tablet, 600 MG PO TID, (Reported) Liraglutide 0.6 Mg/0.1 Ml Pen.injctr, 1.8 MG SC DAILY, (Reported) Losartan Potassium 50 Mg Tablet, 50 MG PO DAILY, (Reported) Metformin HCl 1,000 Mg Tablet, 1,000 MG PO BID, (Reported) Oxybutynin Chloride 5 Mg Tablet, 5 MG PO TID, (Reported) Patient Home Medication List Home Medication List Reviewed: Yes Review of Systems Review of Systems Constitutional: No chills, No diaphoresis, No dizziness, No fever, No malaise, No weakness Respiratory: Denies Cough, Denies Orthopnea, Denies SOA With Exertion, Denies SOA at Rest Cardiovascular: Denies Chest Pain; Edema (chronic LE edema); Denies Palpitations, Denies Syncope Gastrointestinal: Denies Abdomen Distended; Abdominal Pain; Denies Constipated, Denies Diarrhea, Denies Difficulty Swallowing; Nausea; Denies Poor Appetite, Denies Poor Fluid Intake; Vomiting Musculoskeletal: No back pain, No joint pain Past Cyfjfbg-Hqixmj-Yuiaea Hx Past Med/Social Hx: Reviewed Nursing Past Med/Soc Hx Patient Social History Alcohol Use: Denies Use Recreational Drug Use: No Type Used: Cigarettes Former Smoker, Quit: Dec 07, 1994 2nd Hand Smoke Exposure: No Recent Hopitalizations: No Immunizations Up To Date Tetanus Booster (TDap): Unknown Date of Pneumonia Vaccine: Feb 13, 2018 Seasonal Allergies Seasonal Allergies: No Past Medical History Surgeries: Yes (CYSTOSCOPIES, DILITATION URETHRAL STRICTURE) Appendectomy, Bladder Surgery, Section, Eye Surgery, Gallbladder, Tonsillectomy, Tubal Ligation Respiratory: Yes COPD Cardiac: Yes High Cholesterol, Hypertension Neurological: Yes (CVA W/ R SIDED WEAKNESS) Neuropathy, Stroke Genitourinary: Yes (TRIGONITIS) UTI-Chronic Gastrointestinal: No Musculoskeletal: Yes (CHRONIC KNEE PAIN) Arthritis Endocrine: Yes (MORBID OBESITY) Diabetes, Insulin dep HEENT: No (prior cataract surgeries) Psychosocial: Yes Depression Integumentary: Yes (L ORBITAL CELLULITIS, 2017 CHEEK CELLULITIS) Recent Skin Changes Family Medical History Patient reports no known family medical history. No Pertinent Family Hx Physical Exam Vital Signs Vital Signs - First Documented 12/08/18 23:44 Temp 99.2 Pulse 94 Resp 20 B/P (MAP) 134/74 (94) Pulse Ox 95 O2 Delivery Room Air Capillary Refill : Height/Weight/BMI Height: 5'6.00" Weight: 302lbs. 1.0oz. 137.986916fg; 49.3 BMI Method:Actual General Appearance: WD/WN, no apparent distress Neck: non-tender, supple Respiratory: chest non-tender, lungs clear Cardiovascular: normal peripheral pulses, regular rate, rhythm, no JVD Gastrointestinal: normal bowel sounds, soft, no organomegaly, no pulsatile mass; No guarding, No rebound; tenderness (generalized); No mass, No hepatomegaly, No spleenomegaly Progress/Results/Core Measures Results/Orders Lab Results Laboratory Tests Test 12/08/18 11:40 Range/Units White Blood Count 6.6 4.3-11.0 10^3/uL Red Blood Count 3.80 L 4.35-5.85 10^6/uL Hemoglobin 12.3 11.5-16.0 G/DL Hematocrit 37 35-52 % Mean Corpuscular Volume 97 80-99 FL Mean Corpuscular Hemoglobin 32 25-34 PG Mean Corpuscular Hemoglobin Concent 33 32-36 G/DL Red Cell Distribution Width 13.5 10.0-14.5 % Platelet Count 222 130-400 10^3/uL Mean Platelet Volume 9.5 7.4-10.4 FL Neutrophils (%) (Auto) 56 42-75 % Lymphocytes (%) (Auto) 34 12-44 % Monocytes (%) (Auto) 7 0-12 % Eosinophils (%) (Auto) 2 0-10 % Basophils (%) (Auto) 0 0-10 % Neutrophils # (Auto) 3.7 1.8-7.8 X 10^3 Lymphocytes # (Auto) 2.2 1.0-4.0 X 10^3 Monocytes # (Auto) 0.5 0.0-1.0 X 10^3 Eosinophils # (Auto) 0.2 0.0-0.3 10^3/uL Basophils # (Auto) 0.0 0.0-0.1 10^3/uL My Orders Orders - KARTIK MCCARTY DO Abdomen Flat & Upright/Decub (12/08/18 23:44) Cbc With Automated Diff (12/08/18 23:44) Comprehensive Metabolic Panel (12/08/18 23:44) Ns Iv 1000 Ml (Sodium Chloride 0.9%) (12/08/18 23:45) Ondansetron Injection (Zofran Injectio (12/08/18 23:45) Medications Given in ED Current Medications Medications Dose Ordered Sig/Suzi Route Start Time Stop Time Status Last Admin Dose Admin Ondansetron HCl 4 mg ONCE ONCE IVP 12/08/18 23:45 12/08/18 23:46 DC 12/08/18 23:53 4 MG Vital Signs/I&O 12/08/18 23:44 Temp 99.2 Pulse 94 Resp 20 B/P (MAP) 134/74 (94) Pulse Ox 95 O2 Delivery Room Air Diagnostic Imaging Diagonstic Imaging: Xray Plain Films/CT/US/NM/MRI: abdomen Reviewed: Reviewed by Me (no free air. non-specific BGP, dilated loops of small bowel. no obstruction) Departure Impression Primary Impression: Nausea & vomiting Qualified Codes: R11.2 - Nausea with vomiting, unspecified Additional Impression: Abdominal pain Qualified Codes: R10.84 - Generalized abdominal pain Disposition: 01 HOME, SELF-CARE Departure-Patient Inst. Referrals: KATIE HUDSON MD (PCP/Family) Primary Care Physician Scripts Ondansetron (Ondansetron Odt) 4 Mg Tab.rapdis 4 MG PO Q6H for Nausea/Vomiting, #10 TAB Prov: KARTIK MCCARTY DO 12/09/18 KARTIK MCCARTY DO Dec 08, 2018 23:51
[2018-12-08 23:53] LABS: WHITE BLOOD COUNT 6.6 10^3/uL (4.3-11.0)
[2018-12-08 23:54] LABS: BASOPHILS % (AUTO) 0 % (0-10); EOSINOPHILS # (AUTO) 0.2 10^3/uL (0.0-0.3); EOSINOPHILS % (AUTO) 2 % (0-10); HEMATOCRIT 37 % (35-52); HEMOGLOBIN 12.3 G/DL (11.5-16.0); LYMPHOCYTES # (AUTO) 2.2 X 10^3 (1.0-4.0); LYMPHOCYTES % (AUTO) 34 % (12-44); MEAN CORPUSCULAR HEMOGLOBIN 32 PG (25-34); MEAN CORPUSCULAR HGB CONC 33 G/DL (32-36); MEAN CORPUSCULAR VOLUME 97 FL (80-99); MEAN PLATELET VOLUME 9.5 FL (7.4-10.4); MONOCYTES # (AUTO) 0.5 X 10^3 (0.0-1.0); MONOCYTES % (AUTO) 7 % (0-12); NEUTROPHILS # (AUTO) 3.7 X 10^3 (1.8-7.8); NEUTROPHILS % (AUTO) 56 % (42-75); PLATELET COUNT 222 10^3/uL (130-400); RED CELL DISTRIBUTION WIDTH 13.5 % (10.0-14.5)
[2018-12-09] MEDS ORDERED: ONDA4TAB11 PO (00:18)
[2018-12-09 00:19] LABS: BILIRUBIN,TOTAL 0.2 MG/DL (0.1-1.0); CALCIUM 8.7 MG/DL (8.5-10.1); CREATININE SERUM 0.99 MG/DL (0.60-1.30)
[2018-12-09 00:20] LABS: ALBUMIN 3.4 GM/DL (3.2-4.5)
[2018-12-09 00:36] VITALS: BP 126/60
--- NOTE | 2018-12-09 07:44 | Diagnostic Imaging Report ---
INDICATION: Nausea and vomiting since earlier in the day. TECHNIQUE: Supine and upright view of the abdomen 11:35 p.m. CORRELATION STUDY: None FINDINGS: Heart size appears enlarged. Stomach contains an air-fluid level. Large amount of stool is noted within the colon. No definitive evidence for abnormally dilated loops of bowel to suggest high degree bowel obstruction. Overall, assessment, however, is fairly compromised and limited on this study. IMPRESSION: 1. Moderate severity fecal retention. High-degree bowel obstruction not definitively suggested. Dictated by: Dictated on workstation # [id number]
== END 2018-12-09 00:36 | disposition home or self-care (01) ==
LOC: EDUNIT# 23:31 → ER FS 23:38
DX: R11.2 Nausea with vomiting, unspecified (principal); R10.84 Generalized abdominal pain; J44.9 Chronic obstructive pulmonary disease, unspecified; I10 Essential (primary) hypertension; E78.00 Pure hypercholesterolemia, unspecified; E11.42 Type 2 diabetes mellitus with diabetic polyneuropathy; E66.01 Morbid (severe) obesity due to excess calories; F32.9 Major depressive disorder, single episode, unspecified; Z86.73 Personal history of transient ischemic attack (TIA), and cerebral infarction without residual deficits; Z90.49 Acquired absence of other specified parts of digestive tract; Z90.89 Acquired absence of other organs; Z98.51 Tubal ligation status; Z91.041 Radiographic dye allergy status; Z79.84 Long term (current) use of oral hypoglycemic drugs; Z87.891 Personal history of nicotine dependence; Z68.42 Body mass index [BMI] 45.0-49.9, adult
CPT/HCPCS: 36415; 74019; 80053; 85025

== ENCOUNTER 2019-05-14 18:31 | Observation (INO) | payer MEDICAID ==
[~2019-05-14] VITALS: Ht 167.6 cm; Wt 123.3 kg
[~2019-05-14 18:31] MED LIST changes: +ONDA4TAB11 PO; +OXYB5TAB13 PO; -OXYB5TAB9 PO
[2019-05-14] MEDS ORDERED: ASPIRIN 81 MG CHEW (CHILDREN'S ASA) PO ONE (18:45)
--- NOTE | 2019-05-14 18:47 | ED Chest Pain ---
General Chief Complaint: Skin/Wound Problems Stated Complaint: NAUSEA,VOMITING,CHEST/THROAT TIGHTNESS Source: patient, EMS Exam Limitations: no limitations History of Present Illness Date Seen by Provider: May 14, 2019 Time Seen by Provider: 18:35 Initial Comments The patient is a morbidly obese 63-year-old female who presents for evaluation of chest pain, nausea and vomiting, shortness of breath, and a skin rash. She arrives via EMS. She has not taken an aspirin today so will be given to her. She reports a history of coronary disease status post [place], hypertension, and diabetes. She denies fevers or chills, productive cough but does have a dry cough, abdominal discomfort, back or flank pain, urinary complaints, diaphoresis, dizziness or syncope. She has a pruritic rash on her body and her face. She lives with her son and states that he is not experiencing a rash or any bites and she denies any history of MRSA. Timing/Duration: 1-2 days Severity/Quality: mild Location: substernal Radiation: no radiation Activities at Onset: none Prior CP/Workup: heart attack ASA po FINGERPRINT CLERK: No NTG SL FINGERPRINT CLERK: No Allergies and Home Medications Allergies Uncoded Allergies: IV CONTRAST (Adverse Reaction, Mild, HIVES, 09/17/18) Home Medications Amitriptyline HCl 50 Mg Tablet, 50 MG PO HS, (Reported) Atorvastatin Calcium 40 Mg Tablet, 40 MG PO DAILY, (Reported) Fluoxetine HCl 40 Mg Capsule, 40 MG PO BID, (Reported) LAST FILLED #60 08-15-18 Gabapentin 600 Mg Tablet, 600 MG PO TID, (Reported) Liraglutide 0.6 Mg/0.1 Ml Pen.injctr, 1.8 MG SC DAILY, (Reported) Losartan Potassium 50 Mg Tablet, 50 MG PO DAILY, (Reported) Metformin HCl 1,000 Mg Tablet, 1,000 MG PO BID, (Reported) Ondansetron 4 Mg Tab.rapdis, 4 MG PO Q6H Prescribed by: KARTIK MCCARTY on 12/09/18 0018 Oxybutynin Chloride 5 Mg Tablet, 5 MG PO TID, (Reported) Patient Home Medication List Home Medication List Reviewed: Yes Review of Systems Review of Systems Constitutional: no symptoms reported EENTM: No Symptoms Reported Respiratory: Cough, Shortness of Air Cardiovascular: Chest Pain Gastrointestinal: No Symptoms Reported Genitourinary: No Symptoms Reported Musculoskeletal: no symptoms reported Skin: pruritus, rash Psychiatric/Neurological: No Symptoms Reported Endocrine: No Symptoms Reported Hematologic/Lymphatic: No Symptoms Reported All Other Systems Reviewed Negative Unless Noted: Yes Past Ythinog-Wvxgyj-Vgqtmf Hx Past Med/Social Hx: Reviewed Nursing Past Med/Soc Hx Patient Social History Type Used: Cigarettes Former Smoker, Quit: Dec 07, 1994 2nd Hand Smoke Exposure: No Recent Hopitalizations: No Immunizations Up To Date Tetanus Booster (TDap): Unknown Date of Pneumonia Vaccine: Feb 13, 2018 Seasonal Allergies Seasonal Allergies: No Past Medical History Surgeries: Yes (CYSTOSCOPIES, DILITATION URETHRAL STRICTURE) Appendectomy, Bladder Surgery, Section, Eye Surgery, Gallbladder, Tonsillectomy, Tubal Ligation Respiratory: Yes COPD Cardiac: Yes High Cholesterol, Hypertension Neurological: Yes (CVA W/ R SIDED WEAKNESS) Neuropathy, Stroke Genitourinary: Yes (TRIGONITIS) UTI-Chronic Gastrointestinal: No Musculoskeletal: Yes (CHRONIC KNEE PAIN) Arthritis Endocrine: Yes (MORBID OBESITY) Diabetes, Insulin dep HEENT: No (prior cataract surgeries) Psychosocial: Yes Depression Integumentary: Yes (L ORBITAL CELLULITIS, 2017 CHEEK CELLULITIS) Recent Skin Changes Family Medical History Patient reports no known family medical history. No Pertinent Family Hx Physical Exam Vital Signs Vital Signs - First Documented 05/14/19 05/14/19 18:31 18:42 Temp 36.8 Pulse 56 Resp 18 B/P (MAP) 136/74 (94) Pulse Ox 100 O2 Delivery Room Air O2 Flow Rate 2.00 FiO2 100 Capillary Refill : Height, Weight, BMI Height: 5'6.00" Weight: 290lbs. 1.0oz. 131.280990iq; 49.3 BMI Method:Stated General Appearance: No Apparent Distress, WD/WN, Obese HEENT: PERRL/EOMI, Normal ENT Inspection Neck: Full Range of Motion, Normal Inspection, Non Tender Respiratory: Chest Non Tender, Lungs Clear, Normal Breath Sounds, No Accessory Muscle Use, No Respiratory Distress Cardiovascular: Regular Rate, Rhythm, No Edema Gastrointestinal: Normal Bowel Sounds, No Organomegaly, Non Tender, Soft Extremity: Normal Capillary Refill, Non Tender, No Calf Tenderness Neurologic/Psychiatric: Alert, Oriented x3, No Motor/Sensory Deficits, Normal Mood/Affect Skin: Normal Color, Warm/Dry, Rash (rash noted on extremities which is small and erythematous, more severe rash on face with excoriations, somewhat nonspecific could represent MRSA) Progress/Results/Core Measures Results/Orders Lab Results Laboratory Tests Test 05/14/19 18:35 Range/Units White Blood Count 8.7 4.3-11.0 10^3/uL Red Blood Count 4.36 4.35-5.85 10^6/uL Hemoglobin 14.0 11.5-16.0 G/DL Hematocrit 41 35-52 % Mean Corpuscular Volume 94 80-99 FL Mean Corpuscular Hemoglobin 32 25-34 PG Mean Corpuscular Hemoglobin Concent 34 32-36 G/DL Red Cell Distribution Width 13.3 10.0-14.5 % Platelet Count 260 130-400 10^3/uL Mean Platelet Volume 8.9 7.4-10.4 FL Neutrophils (%) (Auto) 66 42-75 % Lymphocytes (%) (Auto) 26 12-44 % Monocytes (%) (Auto) 6 0-12 % Eosinophils (%) (Auto) 2 0-10 % Basophils (%) (Auto) 0 0-10 % Neutrophils # (Auto) 5.7 1.8-7.8 X 10^3 Lymphocytes # (Auto) 2.2 1.0-4.0 X 10^3 Monocytes # (Auto) 0.5 0.0-1.0 X 10^3 Eosinophils # (Auto) 0.2 0.0-0.3 10^3/uL Basophils # (Auto) 0.0 0.0-0.1 10^3/uL Prothrombin Time 13.7 12.2-14.7 SEC INR Comment 1.0 0.8-1.4 Activated Partial Thromboplast Time 29 24-35 SEC Sodium Level 136 135-145 MMOL/L Potassium Level 4.6 3.6-5.0 MMOL/L Chloride Level 98 98-107 MMOL/L Carbon Dioxide Level 22 21-32 MMOL/L Anion Gap 16 H 5-14 MMOL/L Blood Urea Nitrogen 18 7-18 MG/DL Creatinine 1.02 0.60-1.30 MG/DL Estimat Glomerular Filtration Rate 55 BUN/Creatinine Ratio 18 Glucose Level 158 H 70-105 MG/DL Calcium Level 9.5 8.5-10.1 MG/DL Corrected Calcium 9.6 8.5-10.1 MG/DL Total Bilirubin 0.5 0.1-1.0 MG/DL Aspartate Amino Transf (AST/SGOT) 17 5-34 U/L Alanine Aminotransferase (ALT/SGPT) 11 0-55 U/L Alkaline Phosphatase 69 40-136 U/L Total Protein 7.9 6.4-8.2 GM/DL Albumin 3.9 3.2-4.5 GM/DL My Orders Orders - LINDA CISNEROS DO Cbc With Automated Diff (05/14/19 18:34) Chest 1 View Ap/Pa Only (05/14/19 18:34) Ekg Tracing (05/14/19 18:34) Comprehensive Metabolic Panel (05/14/19 18:34) Protime With Inr (05/14/19 18:34) Partial Thromboplastin Time (05/14/19 18:34) O2 (05/14/19 18:34) Monitor-Rhythm Ecg Trace Only (05/14/19 18:34) Ed Iv/Invasive Line Start (05/14/19 18:34) Troponin I Fs (05/14/19 18:34) Probnp Fs (05/14/19 18:34) Aspirin Chewable Tablet (Baby Aspirin Ch (05/14/19 18:45) Medications Given in ED Current Medications Medications Dose Ordered Sig/Suzi Route Start Time Stop Time Status Last Admin Dose Admin Aspirin 324 mg ONCE ONCE PO 05/14/19 18:45 05/14/19 18:46 DC 05/14/19 18:47 324 MG Vital Signs/I&O 05/14/19 05/14/19 18:31 18:42 Temp 36.8 Pulse 56 Resp 18 B/P (MAP) 136/74 (94) Pulse Ox 100 100 O2 Delivery Room Air Nasal Cannula O2 Flow Rate 2.00 FiO2 100 Progress Progress Note : Progress Note @1932 - Patient updated on lab and imaging results. She agrees with the plan to be observed considering her risk factors for cardiac disease. Dr. Oneal accepts the admission at [facility] and Dr. Garner accepts the cardiology consultation. EKG : Comment @1843 - Sinus bradycardia, rate of 52, no acute ischemic findings noted, no STEMI, reviewed and interpreted by myself Diagnostic Imaging Diagonstic Imaging: Xray Comments [facility] [place], [place] NAME: MORALES WALKER [facility] REC#: [id number] PT STATUS: REG ER : 1955 PHYSICIAN: LINDA CISNEROS DO ADMIT DATE: 05/14/19/ER FS Draft Date of Exam:05/14/19 CHEST 1 VIEW AP/PA ONLY INDICATION: Nausea and vomiting and chest tightness. Time of exam: 6:58 PM Comparison is made with prior chest from 11/18/2018. The heart size is stable. The lungs are clear. The pulmonary vascularity is unremarkable. No infiltrate, effusion or pneumothorax is seen. IMPRESSION: No acute cardiopulmonary process is detected. Dictated on workstation # [id number] Dict: 05/14/191908 Trans: 05/14/191913 REPLACED BY [facility] [id number] Interpreted by: GLENDY HAYES MD Electronically signed by: Departure Communication (Admissions) Time/Spoke to Admitting Phy: 19:25 Dr. Oneal at [facility] accepts the telemetry observation admission and requests a cardiology consultation Time/Spoke to Consulting Phy: 19:32 Impression Primary Impression: Chest pain Additional Impression: Rash and nonspecific skin eruption Disposition: ADMITTED INPATIENT Condition: Stable Admissions Decision to Admit Reason: Admit from ER (General) Decision to Admit/Date: May 14, 2019 Time/Decision to Admit Time: 19:30 Departure-Patient Inst. Referrals: KATIE HUDSON MD (PCP/Family) Primary Care Physician LINDA CISNEROS DO May 14, 2019 18:47
[2019-05-14 19:14] LABS: HEMATOCRIT 41 % (35-52); MEAN CORPUSCULAR HEMOGLOBIN 32 PG (25-34); MEAN CORPUSCULAR HGB CONC 34 G/DL (32-36); MEAN CORPUSCULAR VOLUME 94 FL (80-99); PLATELET COUNT 260 10^3/uL (130-400); RED CELL DISTRIBUTION WIDTH 13.3 % (10.0-14.5); WHITE BLOOD COUNT 8.7 10^3/uL (4.3-11.0)
--- NOTE | 2019-05-14 19:14 | Diagnostic Imaging Report ---
INDICATION: Nausea and vomiting and chest tightness. Time of exam: 6:58 PM Comparison is made with prior chest from 11/18/2018. The heart size is stable. The lungs are clear. The pulmonary vascularity is unremarkable. No infiltrate, effusion or pneumothorax is seen. IMPRESSION: No acute cardiopulmonary process is detected. Dictated by: Dictated on workstation # [id number]
[2019-05-14 19:15] LABS: BASOPHILS % (AUTO) 0 % (0-10); EOSINOPHILS # (AUTO) 0.2 10^3/uL (0.0-0.3); EOSINOPHILS % (AUTO) 2 % (0-10); LYMPHOCYTES # (AUTO) 2.2 X 10^3 (1.0-4.0); LYMPHOCYTES % (AUTO) 26 % (12-44); MEAN PLATELET VOLUME 8.9 FL (7.4-10.4); MONOCYTES # (AUTO) 0.5 X 10^3 (0.0-1.0); MONOCYTES % (AUTO) 6 % (0-12); NEUTROPHILS # (AUTO) 5.7 X 10^3 (1.8-7.8); NEUTROPHILS % (AUTO) 66 % (42-75); PROTHROMBIN TIME PATIENT 13.7 SEC (12.2-14.7)
[2019-05-14 19:16] LABS: POTASSIUM 4.6 MMOL/L (3.6-5.0)
[2019-05-14 19:17] LABS: ALBUMIN 3.9 GM/DL (3.2-4.5); BILIRUBIN,TOTAL 0.5 MG/DL (0.1-1.0); CALCIUM 9.5 MG/DL (8.5-10.1); CREATININE SERUM 1.02 MG/DL (0.60-1.30); TOTAL PROTEIN 7.9 GM/DL (6.4-8.2)
--- NOTE | 2019-05-14 20:05 | NUR ---
ems here for transort
--- NOTE | 2019-05-14 20:14 | NUR ---
REPORT RECEIVED FROM SAYDA HA AT [facility] AT THIS TIME.
--- NOTE | 2019-05-14 20:40 | NUR ---
PT ORIGINALLY ASSIGNED TO ROOM 419, HOWEVER, MOVED PATIENT TO 418 D/T ROOM 419 BEING SET UP FOR EDUCATIONAL CLASS FOR THE HOSPITAL.
[2019-05-14] MEDS ORDERED: CALCIUM CARBONATE 500 MG (TUMS) TAB.CHEW PO PRN (20:45)
[2019-05-14] MEDS ORDERED: morphine INJ 10 MG/ML 1ML (SYR OR VIAL) IV PRN (20:45)
[2019-05-14] MEDS ORDERED: ENOXAPARIN 40 MG/0.4 ML (LOVENOX) SYR SC SCH (20:45)
[2019-05-14] MEDS ORDERED: ALPRAZolam 0.25 MG (XANAX) TAB PO PRN (20:45)
[2019-05-14] MEDS ORDERED: BISACODYL 10 MG SUPP (DULCOLAX) PR PRN (20:45)
[2019-05-14] MEDS ORDERED: ONDANSETRON 4 MG (ZOFRAN) ORAL DISSOLVE TAB PO PRN (20:45)
[2019-05-14] MEDS ORDERED: ONDANSETRON 4 MG/2 ML (SDV) Z0FRAN IV PRN (20:45)
[2019-05-14] MEDS ORDERED: LACTULOSE SYRUP 10GM/15ML (ENULOSE) 30ML UDC PO PRN (20:45)
[2019-05-14] MEDS ORDERED: ANTACID SUSP 30 ML UDC (MYLANTA) PO PRN (20:45)
[2019-05-14] MEDS ORDERED: MILK OF MAGNESIA 400 MG/5 ML 30 ML UDC PO PRN (20:45)
[2019-05-14] MEDS ORDERED: ACETAMINOPHEN 325 MG TABLET PO PRN (20:45)
[2019-05-14] MEDS ORDERED: HYDROmorphone 2 MG/ML VIAL (DILAUDID) IV PRN (20:45)
[2019-05-14] MEDS ORDERED: diphenhydrAMINE 50 MG/ML INJ (BENADRYL) IVP PRN (20:45)
[2019-05-14] MEDS ORDERED: LOPERAMIDE 2 MG (IMODIUM) TABLET PO PRN (20:45)
[2019-05-14] MEDS ORDERED: MELATONIN 3 MG TABLET PO PRN (20:45)
[2019-05-14] MEDS ORDERED: polyethylene glycoL POWDER 17 GM (MIRALAX) PACK PO PRN (20:45)
--- NOTE | 2019-05-14 20:50 | NUR ---
MORALES WALKER admitted to room 418-1, with an admitting diagnosis of CHEST PAIN , on 05/14/19 from [facility], accompanied by EMS. MORALES WALKER introduced to surroundings, call light, bed controls, phone, TV, temperature control, lights, meal times, smoking policy, visitor policy, side rail policy, bathrooms and showers. Patient Rights given to patient in the handbook. MORALES WALKER verbalizes understanding that [facility] is not responsible for the loss or damage to any personal effects or valuables that are kept in the patients posession during their hospitalization. MORALES WALKER verbalizes understanding of Interdisciplinary Patient Education. Patient and/or family were informed about the Rapid Response Team and its purpose.
[2019-05-14 21:11] VITALS: BP 144/84
[2019-05-14 21:31] VITALS: BP 144/84
[2019-05-14 23:00] VITALS: BP 136/76
--- NOTE | 2019-05-14 23:13 | NUR ---
PATIENT STATES HISTORY OF DIABETES AND MRSA. SHE TAKES VICTOZA 1.8 MG BID AND METFORMIN 1000 MG BID AT HOME TO CONTROL HER BLOOD SUGAR. NO ACCUCHECK OR SSI ORDERED. PATIENT, ALSO, ASKED ABOUT GABAPENTIN 600 MG THAT SHE TAKES PRN FOR NERVE PAIN. NOTIFIED DR. NEWMAN OF HISTORY. NEW ORDERS FOR ACCUCHECKS ACHS WITH SLIDING SCALE A. DO NOT RESTART METFORMIN AT THIS TIME. GABAPENTIN 600 MG PRN. CONTACT ISOLATION FOR HISTORY OR MRSA.
[2019-05-14] MEDS ORDERED: GABAPENTIN 600 MG (NEURONTIN) TAB PO SCH (23:15)
[2019-05-14] MEDS: SENNA W/DOCUSATE (SENOKOT S) TABLET PO SCH (23:31)
[2019-05-14] MEDS: DOCUSATE SODIUM 100 MG (COLACE) CAP PO SCH (23:31)
[2019-05-14] MEDS: SENNOSIDES 8.6 MG (SENOKOT) TAB PO SCH (23:32)
[2019-05-14] MEDS ORDERED: NITROGLYCERIN 0.4 MG SL TABS BTL 25'S SL PRN (23:45)
[2019-05-14] MEDS ORDERED: morphine INJ 4 MG/ML 1 ML (VIAL/SYRINGE) IV PRN (23:45)
[2019-05-15] VITALS (7 sets, daily range): BP systolic 93–136; BP diastolic 63–80
[2019-05-15] MEDS ORDERED: RT-ALBUTEROL SULF 2.5 MG/3 ML PRE-MIX VIAL INH PRN (03:45)
[2019-05-15 06:43] LABS: BASOPHILS % (AUTO) 0 % (0-10); EOSINOPHILS # (AUTO) 0.3 10^3/uL (0.0-0.3); EOSINOPHILS % (AUTO) 4 % (0-10); HEMATOCRIT 37 % (35-52); HEMOGLOBIN 12.6 G/DL (11.5-16.0); LYMPHOCYTES # (AUTO) 2.1 X 10^3 (1.0-4.0); LYMPHOCYTES % (AUTO) 28 % (12-44); MEAN CORPUSCULAR HEMOGLOBIN 32 PG (25-34); MEAN CORPUSCULAR HGB CONC 34 G/DL (32-36); MEAN CORPUSCULAR VOLUME 94 FL (80-99); MEAN PLATELET VOLUME 8.9 FL (7.4-10.4); MONOCYTES # (AUTO) 0.7 X 10^3 (0.0-1.0); MONOCYTES % (AUTO) 9 % (0-12); NEUTROPHILS # (AUTO) 4.2 X 10^3 (1.8-7.8); NEUTROPHILS % (AUTO) 58 % (42-75); PLATELET COUNT 217 10^3/uL (130-400); RED CELL DISTRIBUTION WIDTH 13.7 % (10.0-14.5); WHITE BLOOD COUNT 7.3 10^3/uL (4.3-11.0)
[2019-05-15] MEDS: inSUlin ASPART (NovoLOG) 1 UNIT/0.01 ML (CHARGE PER UNIT) SC SCH ×4 (06:43→22:50)
[2019-05-15 07:01] LABS: ALANINE AMINOTRANSFERASE 11 U/L (0-55); ALBUMIN 3.4 GM/DL (3.2-4.5); ALKALINE PHOSPHATASE 60 U/L (40-136); BILIRUBIN,TOTAL 0.4 MG/DL (0.1-1.0); BUN/CREATININE RATIO 19; CALCIUM 8.9 MG/DL (8.5-10.1); CARBON DIOXIDE 23 MMOL/L (21-32); CHLORIDE 104 MMOL/L (98-107); CHOLESTEROL 96 MG/DL (< 200); CREATININE SERUM 0.88 MG/DL (0.60-1.30); GFR ESTIMATED > 60; GLUCOSE 148 MG/DL (70-105); HDL CHOLESTEROL 27 MG/DL (40-60); POTASSIUM 3.8 MMOL/L (3.6-5.0); SODIUM 136 MMOL/L (135-145); TOTAL PROTEIN 6.9 GM/DL (6.4-8.2); TRIGLYCERIDES 139 MG/DL (<150); VLDL CHOLESTEROL 28 MG/DL (5-40)
--- NOTE | 2019-05-15 07:05 | NUR ---
NOTIFIED DR. MAGAÑA OF CONSULT AT THIS TIME.
--- NOTE | 2019-05-15 09:30 | NUR ---
patient stated she was never having chest pain. patient stated she went to the ED for a rash on her face and that is why she was admited
[2019-05-15] MEDS: ASPIRIN E.C. 81 MG (ECOTRIN) TAB PO SCH (09:56)
[2019-05-15] MEDS: SENNA W/DOCUSATE (SENOKOT S) TABLET PO SCH ×2 (09:57→22:51)
[2019-05-15] MEDS: DOCUSATE SODIUM 100 MG (COLACE) CAP PO SCH ×2 (09:57→22:51)
[2019-05-15] MEDS: ENOXAPARIN 40 MG/0.4 ML (LOVENOX) SYR SC SCH ×2 (09:57→22:50)
[2019-05-15] MEDS: SENNOSIDES 8.6 MG (SENOKOT) TAB PO SCH ×2 (09:57→22:51)
--- NOTE | 2019-05-15 10:13 | Short Stay Summary-Hospitalist ---
History of Present Illness HPI/Chief Complaint CC: Chest discomfort with nausea HPI: This is a 63yoWF Pt of [facility] who resides at home with her son and remains extremely chronically debilitated who presents for nonspecific chest discomfort and nausea. All troponins were negative, she remains lying in bed with eyes closed and does answer my questions appropriately but will arrange PT to help get her out of bed and resume all her home medication and discharge home since she appears to be at her baseline. Overall prognosis is poor due to the severity of her chronic debility. Source: patient Exam Limitations: clinical condition Date Seen 05/15/19 Time Seen by a Provider: 09:30 Attending Physician Bisi Oneal David F MD Referring Physician Date of Admission May 14, 2019 at 19:55 Home Medications & Allergies Home Medications Reviewed patient Home Medication Reconciliation performed by pharmacy medication reconciliations ordnance engineering technician and/or nursing. Patients Allergies have been reviewed. Allergies Allergies Uncoded Allergies IV CONTRAST ( Adverse Reaction, Mild, HIVES, 09/17/18) Past Ryevtee-Mddits-Hspqhz Hx Past Med/Social Hx: Reviewed Nursing Past Med/Soc Hx, Reviewed and Corrections made Patient Social History Marrital Status: single Employed/Student: unemployed Alcohol Use: Past History Recreational Drug Use: No Smoking Status: Former Smoker Former Smoker, Quit: Dec 07, 1994 Type Used: Cigarettes 2nd Hand Smoke Exposure: No Recent Foreign Travel: No Contact w/other who traveled: No Recent Hopitalizations: No Recent Infectious Disease Expo: No Immunizations Up To Date Tetanus Booster (TDap): Unknown Date of Pneumonia Vaccine: Apr 17, 2015 Seasonal Allergies Seasonal Allergies: No Past Medical History Surgeries: Appendectomy, Bladder Surgery, Section, Eye Surgery, Gallbladder, Tonsillectomy, Tubal Ligation Cardiac: High Cholesterol, Hypertension Neurological: Neuropathy, Stroke Genitourinary: UTI-Chronic Musculoskeletal: Arthritis Endocrine: Diabetes, Insulin dep Psychosocial: Depression Skin/Integumentary: Recent Skin Changes Family History Patient reports no known family medical history. No Pertinent Family Hx Review of Systems Constitutional: see HPI, weakness Cardiovascular: chest pain Psychiatric/Neurological: Depressed Physical Exam Physical Exam Vital Signs Vital Signs - First Documented 05/14/19 05/14/19 18:31 18:42 Temp 36.8 Pulse 56 Resp 18 B/P (MAP) 136/74 (94) Pulse Ox 100 O2 Delivery Room Air O2 Flow Rate 2.00 FiO2 100 Capillary Refill : Less Than 3 Seconds Height, Weight, BMI Height: 5'6.00" Weight: 290lbs. 1.0oz. 131.405802jn; 43.89 BMI Method:Stated General Appearance: No Apparent Distress, WD/WN, Chronically ill, Obese HEENT: PERRL/EOMI, Normal ENT Inspection Neck: Full Range of Motion, Normal Inspection, Non Tender Respiratory: Chest Non Tender, Lungs Clear, Normal Breath Sounds, No Accessory Muscle Use, No Respiratory Distress Cardiovascular: Regular Rate, Rhythm, No Edema Gastrointestinal: Normal Bowel Sounds, No Organomegaly, Non Tender, Soft Extremity: Normal Capillary Refill, Non Tender, No Calf Tenderness Neurologic/Psychiatric: Alert, Oriented x3, No Motor/Sensory Deficits, Normal Mood/Affect Skin: Normal Color, Warm/Dry, Rash (rash noted on extremities which is small and erythematous, more severe rash on face with excoriations, somewhat nonspecific could represent MRSA) Results Results/Procedures Labs Laboratory Tests 05/14/19 18:35 05/15/19 06:21 Patient resulted labs reviewed. Short Stay Diagnosis Discharge Diagnosis-Short Stay Admission Diagnosis Assessment: Chest pain Nausea Obesity Chronic debility Flat affect Final Discharge Diagnosis Assessment: Chest pain Nausea Obesity Chronic debility Flat affect Conclusion Plan Plan: EST tomorrow Home meds PT/OT Diagnosis/Problems Diagnosis/Problems (1) Chest pain Status: Acute (2) Rash and nonspecific skin eruption Status: Acute (3) Debility Status: Acute (4) Body mass index (BMI) 45.0-49.9, adult Clinical Quality Measures AMI/AHF: ASA po Prior to arrival: No DVT/VTE Risk/Contraindication: Risk Factor Score Per Nursin RFS Level Per Nursing on Admit: 3=High BISI ONEAL DO May 15, 2019 10:13
[2019-05-15] MEDS ORDERED: ONDA4TAB11 PO (10:15)
[2019-05-15] MEDS ORDERED: IBUP-1780 PO (10:15)
--- NOTE | 2019-05-15 10:16 | NUR ---
SPOKE WITH THE PATIENT ABOUT HER MEDICATIONS. WE WENT OVER THE EXT MED HX AND SHE VERIFIED HOW SHE TAKES THEM TO THE BEST OF HER ABILITY. WHEN I ASKED ABOUT VICTOZA SHE STATES SHE IS SUPPOSED TO US 20 BUT THE PEN ONLY GOES UP TO 18 BID NEEDED FOR BLOOD SUGAR. I EXPLAINED IT IS TYPICALLY ONCE DAILY. SHE AGREED SHE TAKES IT ONCE DAILY AFTER THAT. WHEN I ASKED ABOUT METFORMIN AND GLIPIZIDE SHE SAID SHE ONLY TAKES METFORMIN. IT IS PAST DUE FOR REFILL ACCORDING TO THE EXT MED HX BEING FILLED LAST #60 02-20-19- SHE STATES THAT YOU ARE SUPPOSED TO TAKE THAT WITH YOUR SHOTS TO HELP IT WORK AND SHE USUALLY DOES IT TWICE DAILY. I AM NOT CERTAIN HOW CONFIDENT SHE IS IN HOW SHE TAKES HER MEDICATIONS AT HOME. SHE SEEMS TO EASILY AGREE. I LEFT THE GLIPIZIDE OFF THE MED REC IT WAS NOT ON THERE FROM PREVIOUS AND IT IS PAST DUE BEING LAST FILLED 02-27-19 #30. I LEFT THE METFORMIN AND NOTED THE PAST DUE FILL DATE. SHE STATES SHE DOES NOT TAKE ANY MEDICATION OTC.
[2019-05-15] MEDS ORDERED: ONDANSETRON 4 MG (ZOFRAN) ORAL DISSOLVE TAB PO PRN (10:30)
--- NOTE | 2019-05-15 11:36 | Physical Therapy Evaluation ---
PT Evaluation-General Medical Diagnosis Admission Date May 14, 2019 at 19:55 Medical Diagnosis: chest pain Onset Date: May 14, 2019 Therapy Diagnosis Therapy Diagnosis: impaired mobility, strength, endurance Height/Weight Height (Feet): 5 Height (Inches): 6.00 Weight (Pounds): 290 Weight (Ounces): 1.0 Precautions Precautions/Isolations: Contact Isolation, Fall Prevention Referral Physician: Bisi Oneal DO Reason for Referral: Evaluation/Treatment Medical History Pertinent Medical History: Arthritis, CAD, CVA, DM, Smoking Additional Medical History Past Medical History Surgeries: Yes (CYSTOSCOPIES, DILITATION URETHRAL STRICTURE) Appendectomy, Bladder Surgery, Section, Eye Surgery, Gallbladder, Tonsillectomy, Tubal Ligation Respiratory: Yes COPD Cardiac: Yes High Cholesterol, Hypertension Neurological: Yes (CVA W/ R SIDED WEAKNESS) Neuropathy, Stroke Genitourinary: Yes (TRIGONITIS) UTI-Chronic Gastrointestinal: No Musculoskeletal: Yes (CHRONIC KNEE PAIN) Arthritis Endocrine: Yes (MORBID OBESITY) Diabetes, Insulin dep HEENT: No (prior cataract surgeries) Psychosocial: Yes Depression Integumentary: Yes (L ORBITAL CELLULITIS, 2018 CHEEK CELLULITIS) Recent Skin Changes Reviewed History: Yes Social History Home: Single Level Entry Into Home: Stairs With Railing Patient is unable to state how many steps she has to get into her home but says there are 2 sets but she doesn't live on a second floor. Prior Prior Level of Function SCALE: Activities may be completed with or without assistive devices. 9-Sbgunexczz-jnsojmx completes the activity by him/herself with no assistance from a helper. 5-Set-up or Clean-up Assistance-helper sets up or cleans up; patient completes activity. [place] assists only prior to or following the activity. 4-Supervision or Touching Assistance-helper provides verbal cues and/or touching/steadying and/or contact guard assistance as patient completes activity. Assistance may be provided throughout the activity or intermittently. 3-Partial/Moderate Assistance-helper does LESS THAN HALF the effort. [place] lifts, holds or supports trunk or limbs, but provides less than half the effort. 2-Substantial/Maximal Assistance-helper does MORE THAN HALF the effort. [place] lifts or holds trunk or limbs and provides more than half the effort. 1-Jjxmvdfcv-wdseri does ALL the effort. Patient does none of the effort to complete the activity. Or, the assistance of 2 or more helpers is required for the patient to complete the activity. If activity was not attempted, code reason: 7-Patient Refused. 9-Not Applicable-not attempted and the patient did not perform the activity before the current illness, exacerbation or injury. 10-Not Attempted due to Environmental Limitations-(lack of equipment, weather restraints, etc.). 88-Not Attempted due to Medical Conditions or Safety Concerns. Bed Mobility: 6 Transfers (B,C,W/C): 6 Gait: 6 Indoor Mobility (Ambulation): Independent Patient states she was using a rolling walker previously. PT Evaluation-Current Subjective Patient in bed pre tx, agrees to PT but states that she is not going to get out of bed until she has a bath. OT also has orders and patient agrees to get into a recliner and bathe with OT. Patient has unrated pain in both knees due to arthritis. Patient has scabs on her face. Pt/Family Goals "to go home" Objective Patient Orientation: Person, Place, Situation Attachments: Oxygen 2L of O2 nasal canula ROM/Strength ROM Lower Extremities WNL Strength Lower Extremities 3/5 gross BLE Integumentary/Posture Integumentary swelling BLE Sensory Vision: Functional Hearing: Functional Sensation Right Lower Extremit: Impaired Sensation Left Lower Extremity: Impaired Sensation Lower Extremities Patient has numbness/tingling in both feet Transfers Roll Left to Right (QC): 6 Lying to Sitting/Side of Bed(Q: 3 Sit to Stand (QC): 3 Chair/Hhq-ms-Nhfcd Xfer(QC): 3 Min assist for supine to sit and sit to stand, CGA for transfer to recliner. Patient needs cues for positioning, tries to sit before turning completely. Balance Sitting Static: Normal Sitting Dynamic: Normal Standing Static: Fair Standing Dynamic: Fair Assessment/Needs Patient has impaired mobility, strength, endurance. She needs min assist for standing and transfers. Poor motivation. Rehab Potential: Guarded PT Senior Care Goals Senior Care Goals PT Senior Care Goals Time Frame: May 22, 2019 Roll Left & Right (QC): 6 Sit to Lying (QC): 6 Lying-Sitting on Side/Bed(QC): 6 Sit to Stand (QC): 6 Chair/Dkh-dc-Mlxry Xfer(QC): 6 Walk 10 feet (QC): 4 Walk 50ft with 2 Turns (QC): 4 PT Plan Problem List Problem List: Activity Tolerance, Functional Strength, Safety, Balance, Gait, Transfer, Bed Mobility Treatment/Plan Treatment Plan: Continue Plan of Care Treatment Plan: Bed Mobility, Education, Functional Activity Ezra, Functional Strength, Gait, Safety, Therapeutic Exercise, Transfers Treatment Duration: May 22, 2019 Frequency: 6 times per week Estimated Hrs Per Day: .25 hour per day Patient and/or Family Agrees t: Yes Safety Risks/Education Patient Education: Transfer Techniques, Correct Positioning, Safety Issues Teaching Recipient: Patient Teaching Methods: Demonstration, Discussion Response to Teaching: Reinforcement Needed Discharge Recommendations Plan Patient will perform bed mobility and transfer training, balance and endurance training, functional strengthening, stair training, gait training, and education, to improve functional mobility and independence at home. Time/GCodes Time In: 1115 Time Out: 1125 Total Billed Treatment Time: 10 Total Billed Treatment 1 visit MARCO FERMIN PT May 15, 2019 11:36
--- NOTE | 2019-05-15 11:36 | Consultation-Cardiology ---
HPI-Cardiology Cardiology Consultation: Date of Consultation 05/15/19 Date of Admission Attending Physician Bisi Oneal DO Admitting Physician Andrew Celis MD Consulting Physician Concepción GARNER MD HPI: Time Seen by a Provider: 08:45 Chief Complaint: Chest discomfort This is a 63-year-old lady who has previous history of an WI but no PCI. She presents with chest pain, nausea vomiting and shortness of breath. She denies any other symptoms. She denies active smoking. She has history of diabetes and hypertension. No pertinent family history. Review of Systems-Cardiology Review of Systems Constitutional: As described under HPI; No As described under HPI, No no symptoms reported, No chills, No fever, No lightheadedness Eyes: No As described under HPI, No no symptoms reported, No blindness, No blurred vision, No contact lenses, No drainage, No decreased acuity, No foreign body sensation, No pain, No vision change Ears/Nose/Throat: No As described under HPI, No no symptoms reported, No chronic hearing loss, No ear discharge, No ear pain, No nasal drainage, No ulcerations Respiratory: No no symptoms reported; As described under HPI; No As described under HPI, No cough, No orthopnea, No shortness of breath, No SOB with excertion Cardiovascular: No no symptoms reported; As described under HPI; No As described under HPI; chest pain; No edema, No irregular heart rate, No lightheadedness, No palpitations Gastrointestinal: No no symptoms reported, No As described under HPI, No abdomen distended, No abdominal pain, No blood streaked bowels, No constipation, No diarrhea, No nausea, No vomiting; nausea/vomiting/diarrhea; No stool coloration changes Genitourinary: No As described under HPI, No burning, No dysuria, No discharge, No frequency, No flank pain, No hematuria, No urgency : Yes : No Skin: No rash, No skin related problems, No ulcerations Psychiatric/Neurological: No anxiety, No depression, No seizure, No focal weakness, No syncope Hematologic: No bleeding abnormalities All Other Systems Reviewed Negative Unless Noted: Yes FXT-[id number]-Lzontz Hx Patient Social History Alcohol Use: Past History Recreational Drug Use: No Smoking Status: Former Smoker Type Used: Cigarettes 2nd Hand Smoke Exposure: No Recent Foreign Travel: No Recent Infectious Disease Expo: No Hospitalization with Isolation: Denies Immunizations Up To Date Tetanus Booster (TDap): Unknown Date of Pneumonia Vaccine: Apr 17, 2015 Past Medical History PMH As described under Assessment. Family Medical History Family History: Patient reports no known family medical history. Allergies and Home Medications Allergies Uncoded Allergies: IV CONTRAST (Adverse Reaction, Mild, HIVES, 09/17/18) Home Medications Amitriptyline HCl 50 Mg Tablet, 50 MG PO HS, (Reported) Atorvastatin Calcium 40 Mg Tablet, 40 MG PO HS, (Reported) Gabapentin 600 Mg Tablet, 600 MG PO TID, (Reported) Ibuprofen 800 Mg Tablet, 800 MG PO TID, (Reported) Liraglutide 0.6 Mg/0.1 Ml Pen.injctr, 1.8 MG SC DAILY, (Reported) Losartan Potassium 50 Mg Tablet, 50 MG PO DAILY, (Reported) Metformin HCl 1,000 Mg Tablet, 1,000 MG PO BID, (Reported) LAST FILLED #60 02-20-19 Ondansetron 4 Mg Tab.rapdis, 4 MG PO Q6H PRN for NAUSEA/VOMITING-1ST LINE, (Reported) Oxybutynin Chloride 5 Mg Tablet, 5 MG PO TID, (Reported) Patient Home Medication List Home Medication List Reviewed: Yes Physical Exam-Cardiology Physical Exam Vital Signs/I&O 05/15/19 05/15/19 05/15/19 05/15/19 00:00 01:01 04:00 06:41 Temp 36.4 36.8 Pulse 69 65 68 74 Resp 20 18 B/P (MAP) 127/66 (86) 117/69 (85) Pulse Ox 96 96 O2 Delivery Nasal Cannula Nasal Cannula O2 Flow Rate 2.00 2.00 05/15/19 05/15/19 08:00 09:24 Temp 37.0 36.8 Pulse 68 58 Resp 22 B/P (MAP) 120/65 (83) Pulse Ox 95 100 O2 Delivery Nasal Cannula O2 Flow Rate 2.00 Capillary Refill : Less Than 3 Seconds Constitutional: appears stated age, AAO x 3; No apparent distress; well-developed, well-nourished HEENT: PERRL; No discharge; hearing is well preserved, oral hygience is good; No ulceration, No xanthelasmas are seen Neck: No carotid bruit; carotid pulses are 2 + bilaterally Respiratory: chest is bilaterally symmetric, lungs clear to auscultation Cardiovascular: regular rate-rhythm, S1 and S2 Gastrointestinal: soft, distended, audible bowel sounds; No spleenomegaly Rectal: deferred Extremities: normal range of motion, non-tender, normal inspection, pedal edema; No clubbing, No cyanosis, No significant edema Neurologic/Psychiatric: no motor/sensory deficits, alert, normal mood/affect, oriented x 3, power is 5/5 both on sides Skin: normal color; No rash, No ulcerations Data Review Labs Laboratory Tests 05/14/19 18:35: White Blood Count 8.7, Red Blood Count 4.36, Hemoglobin 14.0, Hematocrit 41, Mean Corpuscular Volume 94, Mean Corpuscular Hemoglobin 32, Mean Corpuscular Hemoglobin Concent 34, Red Cell Distribution Width 13.3, Platelet Count 260, Mean Platelet Volume 8.9, Neutrophils (%) (Auto) 66, Lymphocytes (%) (Auto) 26, Monocytes (%) (Auto) 6, Eosinophils (%) (Auto) 2, Basophils (%) (Auto) 0, Neutrophils # (Auto) 5.7, Lymphocytes # (Auto) 2.2, Monocytes # (Auto) 0.5, Eosinophils # (Auto) 0.2, Basophils # (Auto) 0.0, Prothrombin Time 13.7, INR Comment 1.0, Activated Partial Thromboplast Time 29, Sodium Level 136, Potassium Level 4.6, Chloride Level 98, Carbon Dioxide Level 22, Anion Gap 16H, Blood Urea Nitrogen 18, Creatinine 1.02, Estimat Glomerular Filtration Rate 55, BUN/Creatinine Ratio 18, Glucose Level 158H, Calcium Level 9.5, Corrected Calcium 9.6, Total Bilirubin 0.5, Aspartate Amino Transf (AST/SGOT) 17, Alanine Aminotransferase (ALT/SGPT) 11, Alkaline Phosphatase 69, Troponin I < 0.30, Pro-B-Type Natriuretic Peptide 274.7H, Total Protein 7.9, Albumin 3.9 05/14/19 22:00: Troponin I < 0.028 05/15/19 06:06: Glucometer 146H 05/15/19 06:21: White Blood Count 7.3, Red Blood Count 3.98L, Hemoglobin 12.6, Hematocrit 37, Mean Corpuscular Volume 94, Mean Corpuscular Hemoglobin 32, Mean Corpuscular Hemoglobin Concent 34, Red Cell Distribution Width 13.7, Platelet Count 217, Mean Platelet Volume 8.9, Neutrophils (%) (Auto) 58, Lymphocytes (%) (Auto) 28, Monocytes (%) (Auto) 9, Eosinophils (%) (Auto) 4, Basophils (%) (Auto) 0, Neutrophils # (Auto) 4.2, Lymphocytes # (Auto) 2.1, Monocytes # (Auto) 0.7, Eosinophils # (Auto) 0.3, Basophils # (Auto) 0.0, Sodium Level 136, Potassium Level 3.8, Chloride Level 104, Carbon Dioxide Level 23, Anion Gap 9, Blood Urea Nitrogen 17, Creatinine 0.88, Estimat Glomerular Filtration Rate > 60, BUN/Creatinine Ratio 19, Glucose Level 148H, Calcium Level 8.9, Corrected Calcium 9.4, Total Bilirubin 0.4, Aspartate Amino Transf (AST/SGOT) 15, Alanine Aminotransferase (ALT/SGPT) 11, Alkaline Phosphatase 60, Troponin I < 0.028, Total Protein 6.9, Albumin 3.4, Triglycerides Level 139, Cholesterol Level 96, LDL Cholesterol Direct 46, VLDL Cholesterol 28, HDL Cholesterol 27L ECG Impression ECG Initial ECG Rhythm: Normal Sinus Initial ECG Impression: Normal A/P-Cardiology Assessment/Admission Diagnosis Chest pain, Nausea, vomiting, History of WI, Diabetes, Hypertension, Hyperlipidemia Plan Chest pain, EKG negative. Serial troponin negative. Echocardiogram today. Nuclear stress test tomorrow. Nausea, vomiting, History of WI, continue outpatient medical therapy. Diabetes, continue metformin. Hypertension, continue angiotensin receptor naldo. Hyperlipidemia, continue statin therapy. Thank you for your consultation. Please call me if you have any questions. Precious Garner MD, FACP, FACC, FSCAI, FHRS, CCDS Interventional Cardiology Cardiac Electrophysiology Vascular Medicine and Endovascular Interventions Clinical Quality Measures AMI/AHF: ASA po Prior to arrival: No DVT/VTE Risk/Contraindication: Risk Factor Score Per Nursin RFS Level Per Nursing on Admit: 3=High Concepción GARNER MD May 15, 2019 11:36
[2019-05-15] MEDS: RT-ALBUTEROL SULF 2.5 MG/3 ML PRE-MIX VIAL INH SCH ×2 (11:39→18:34)
[2019-05-15] MEDS ORDERED: REGADENOSON 0.4 MG/5 ML SYR (LEXISCAN) IV ONE (11:45)
--- NOTE | 2019-05-15 12:07 | Occupational Therapy Eval ---
OT Evaluation-General/PLF Medical Diagnosis Admission Date May 14, 2019 at 19:55 Medical Diagnosis: chest pain Onset Date: May 14, 2019 Therapy Diagnosis Therapy Diagnosis: decreased self care skills Height/Weight Height (Feet): 5 Height (Inches): 6.00 Weight (Pounds): 290 Weight (Ounces): 1.0 Precautions Precautions/Isolations: Contact Isolation, Fall Prevention Referral Physician: Bisi Oneal DO Medical History Pertinent Medical History: Arthritis, CAD, CVA, DM, Neuropathy, Smoking Additional Medical History high cholesterol, depression Social History Home: Single Level Current Living Status: Children (son) Entry Into Home: Stairs With Railing ADL-Prior Level of Function SCALE: Activities may be completed with or without assistive devices. 6-Cirqsmrfcs-ghhcxgp completes the activity by him/herself with no assistance from a helper. 5-Set-up or Clean-up Assistance-helper sets up or cleans up; patient completes activity. [place] assists only prior to or following the activity. 4-Supervision or Touching Assistance-helper provides verbal cues and/or touching/steadying and/or contact guard assistance as patient completes activity. Assistance may be provided throughout the activity or intermittently. 3-Partial/Moderate Assistance-helper does LESS THAN HALF the effort. [place] lifts, holds or supports trunk or limbs, but provides less than half the effort. 2-Substantial/Maximal Assistance-helper does MORE THAN HALF the effort. [place] lifts or holds trunk or limbs and provides more than half the effort. 7-Pqkdrqzvj-eeimnb does ALL the effort. Patient does none of the effort to complete the activity. Or, the assistance of 2 or more helpers is required for the patient to complete the activity. If activity was not attempted, code reason: 7-Patient Refused. 9-Not Applicable-not attempted and the patient did not perform the activity before the current illness, exacerbation or injury. 10-Not Attempted due to Environmental Limitations-(lack of equipment, weather restraints, etc.). 88-Not Attempted due to Medical Conditions or Safety Concerns. ADL PLOF Comments Pt reports being independent with self care and mobility prior to admission. Pt reports using a walker or w/c for mobility secondary to knee pain DME/Equipment: Tub/Shower OT Current Status Subjective Pt agreeable to therapy, would like to get cleaned up. Mental Status/Objective Patient Orientation: Person, Place Attachments: Oxygen ADL-Treatment ADL-Current Pt had just transferred to recliner with PT. Sponge bath completed while seated in chair. Pt doffed night gown without assist. Completed upper body bathing with set up and increased time. Pt able to wash bilateral upper and lower legs. Stood with CGA to wash buttocks and [place] area. Don hospital gown with set up. Pt doffed socks without assist, but required assist to don socks. Increased time required for ADL tasks. Pt sitting in chair with needs met after session. Eating (QC): 6 Shower/Bathe Self (QC): 4 On/Off Footwear (QC): 3 Education OT Patient Education: Rehab process Teaching Recipient: Patient Teaching Methods: Discussion Response to Teaching: Verbalize Understanding OT Fpc Goals Fpc Goals Time Frame: May 22, 2019 Eating (QC): 6 Oral Hygiene (QC): 6 Toileting Hygiene (QC): 6 Shower/Bathe Self (QC): 6 Upper Body Dressing (QC): 6 Lower Body Dressing (QC): 6 On/Off Footwear (QC): 6 Additional Goals: 1-Demonstrate ADL Tasks, 2-Verbalize Understanding, 3- ImproveStrength/Ezra 1=Demonstrate adherence to instructed precautions during ADL tasks. 2=Patient will verbalize/demonstrate understanding of assistive devices/modifications for ADL. 3=Patient will improve strength/tolerance for activity to enable patient to perform ADL's. OT Education/Plan Problem List/Assessment Assessment: Decreased Activ Tolerance, Decreased UE Strength, Dependent Transfers, Impaired Self-Care Skills Pt to benefit from skilled OT intervention for ADL training, transfers, strengthening, and home safety education to increase level of independence and allow safe discharge. Discharge Recommendations Plan/Recommendations: Continue POC Treatment Plan/Plan of Care Treatment,Training & Education: Yes Patient would benefit from OT for education, treatment and training to promote independence in ADL's, mobility, safety and/or upper extremity function for ADL's. Plan of Care: ADL Retraining, Functional Mobility, UE Funct Exercise/Act Treatment Duration: May 22, 2019 Frequency: 5 times per week Estimated Hrs Per Day: .25 hour per day Rehab Potential: Fair Time/GCodes Start Time: 11:25 Stop Time: 11:57 Total Time Billed (hr/min): 32 Billed Treatment Time 1 visit, EVM(12minutes), ADL(20minutes) BALTAZAR GUERRERO OT May 15, 2019 12:07
--- NOTE | 2019-05-15 12:30 | NUR ---
RD ASSESSMENT PMHx: COPD; hypercholesterolemia; HTN; stroke; DM PT INTERACTION: Pt was awake and pleasant during nutrition assessment. Pt states current appetite is "okay" but it had been poor 1d ago. Note PO intake of 100% x1meal, per chart review. Pt states following a "low-everything" diet at home, and has no issues with chewing/swallowing food at this time. Pt states episodes of nausea/vomiting x1d prior to admit. Pt states recent episodes of diarrhea. Note last BM was 05/15 and pt currently on bowel regimen of colace BID; and senna BID, per chart review. Pt states recent wt loss. "They said I have lost weight." Pt states UBW of 280#. Note pt current wt of 271, and pt had recent 18# wt loss x5mon, per chart review. ABNORMAL NUTRITION-RELATED LAB VALUES LOW: HDL 27 HIGH: glu 148 Est. kcal needs: 5516-3316 kcal | 15-18 kcal/kg Est. Pro needs: 99-123 g Pro | 0.8-1.0 g Pro/kg PES STATEMENT: Inadequate oral intake (NI-2.1) related to loss of appetite | nausea | vomiting | diarrhea as evidenced by pt interview INTERVENTION: Continue with current diet order of Clear Liquid diet. Would recommend advancing diet as medically able and as tolerated. Will continue to follow and reassess as pt needs and status change. MONITOR/EVALUATE: PO Intake; Plan of Care; Hydration Status; Weight Status; Lab Values Janiya Rayo, MS, RD, LD
[2019-05-15] MEDS: IBUPROFEN 800 MG (MOTRIN) TAB PO SCH ×2 (13:48→22:50)
[2019-05-15] MEDS: GABAPENTIN 600 MG (NEURONTIN) TAB PO SCH ×2 (13:48→22:50)
[2019-05-15] MEDS: OXYBUTYNIN (DITROPAN) 5 MG TAB PO SCH ×2 (13:48→22:57)
[2019-05-15] MEDS ORDERED: AMITRIPTYLINE 50 MG (ELAVIL) TAB PO SCH (21:00)
[2019-05-15] MEDS: metFORMIN 500 MG (GLUCOPHAGE) TAB PO SCH (22:50)
[2019-05-16] VITALS (8 sets, daily range): BP systolic 109–135; BP diastolic 64–84
[2019-05-16] MEDS: inSUlin ASPART (NovoLOG) 1 UNIT/0.01 ML (CHARGE PER UNIT) SC SCH ×3 (05:53→16:00)
[2019-05-16] MEDS: CATHETER FLUSH 10 ML SYR IV PRN ×2 (08:26→09:08)
--- NOTE | 2019-05-16 08:30 | NUR ---
TO NUCLEAR MED PER W/C FOR NUCLEAR STRESS TEST.
[2019-05-16] MEDS ORDERED: REGADENOSON 0.4 MG/5 ML SYR (LEXISCAN) IV ONE (08:54)
[2019-05-16] MEDS ORDERED: LOSARTAN 50 MG (COZAAR) TAB PO SCH (09:00)
[2019-05-16] MEDS ORDERED: NON-FORMULARY MEDICATION 1 EA EA (Liraglutide (Victoza 3-Pak) 1.8 MG) SC SCH (09:00)
--- NOTE | 2019-05-16 10:00 | NUR ---
RETURNED FROM NUCLEAR MED PER W/C. DENIES CHEST PAIN. ALERT AND CHEERFUL. VOIDING WITHOUT DIFFICULTY.
--- NOTE | 2019-05-16 10:25 | Discharge Summary ---
Discharge Summary Hospital Course Was the Problem List Reviewed?: Yes Problems/Dx: (1) Chest pain Status: Acute (2) Rash and nonspecific skin eruption Status: Acute (3) Debility Status: Acute (4) Body mass index (BMI) 45.0-49.9, adult Hospital Course Date of Admission: May 14, 2019 at 19:55 Admission Diagnosis : Family Physician/Provider: Andrew Celis MD Date of Discharge: 05/16/19 Discharge Diagnosis: Chest pain, chronic debility, facial skin rash of uncertain cause acute on chronic Hospital Course: Hospital Course: Pt had an uneventful hospital course she was admitted for chest tightness and nausea. Labs remained stable but such chronic debility required risk stratification with cardiac stress test by Dr. Garner. Pt was deemed stable for DC, social work inquired to see if she needed an additional support at home and will be discharghed in improved condition but poor prognosis given due to severe chronic debility. Labs and Pending Lab Test: Laboratory Tests 05/15/19 11:37: Glucometer 190H 05/15/19 16:01: Glucometer 165H 05/15/19 20:09: Glucometer 184H 05/16/19 05:29: Glucometer 126H Home Meds Active Reported Ondansetron Odt (Ondansetron) 4 Mg Tab.rapdis 4 Mg PO Q6H PRN Ibuprofen 800 Mg Tablet 800 Mg PO TID Atorvastatin Calcium 40 Mg Tablet 40 Mg PO HS Victoza 3-John (Liraglutide) 0.6 Mg/0.1 Ml Pen.injctr 1.8 Mg SC DAILY Amitriptyline HCl 50 Mg Tablet 50 Mg PO HS Gabapentin 600 Mg Tablet 600 Mg PO TID Metformin HCl 1,000 Mg Tablet 1,000 Mg PO BID LAST FILLED #60 -6- Losartan Potassium 50 Mg Tablet 50 Mg PO DAILY Oxybutynin Chloride 5 Mg Tablet 5 Mg PO TID Assessment/Pt Instructions [facility] 1 week Discharge Planning: <30 minutes discharge planning Discharge Instructions Discharge Diet: No Restrictions Discharge Physical Examination Vital Signs Vital Signs Date Time Temp Pulse Resp B/P (MAP) Pulse Ox O2 Delivery O2 Flow Rate FiO2 05/16/19 09:10 81 16 135/75 (95) 96 05/16/19 08:00 Nasal Cannula 2.00 05/16/19 04:00 36.8 05/14/19 18:42 100 General Appearance: No Apparent Distress, WD/WN, Chronically ill Respiratory: Lungs Clear Cardiovascular: Regular Rate, Rhythm Allergies: Uncoded Allergies: IV CONTRAST (Adverse Reaction, Mild, HIVES, 09/17/18) Discharge Summary Date of Admission May 14, 2019 at 19:55 Date of Discharge Discharge Date: May 15, 2019 Admission Diagnosis Assessment: Chest pain Nausea Obesity Chronic debility Flat affect Discharge Diagnosis Plan: EST tomorrow Home meds PT/OT (1) Chest pain Status: Acute (2) Rash and nonspecific skin eruption Status: Acute (3) Debility Status: Acute (4) Body mass index (BMI) 45.0-49.9, adult Clinical Quality Measures AMI/AHF: ASA po Prior to arrival: No DVT/VTE Risk/Contraindication: Risk Factor Score Per Nursin RFS Level Per Nursing on Admit: 3=High ALTHEA NEWMAN DO May 16, 2019 10:25
[2019-05-16] MEDS: RT-ALBUTEROL SULF 2.5 MG/3 ML PRE-MIX VIAL INH SCH ×2 (10:48→19:10)
--- NOTE | 2019-05-16 11:42 | Physical Therapy Daily Note ---
PT Daily Note-Current Subjective Patient sitting in recliner and agreeable to therapy. Appearance Post treatment patient in recliner with feet up, call light and bedside table within reach. Mental Status Patient Orientation: Normal For Age Transfers SCALE: Activities may be completed with or without assistive devices. 6-Nwbshgrunc-vznmfek completes the activity by him/herself with no assistance from a helper. 5-Set-up or Clean-up Assistance-helper sets up or cleans up; patient completes activity. [place] assists only prior to or following the activity. 4-Supervision or Touching Assistance-helper provides verbal cues and/or touching/steadying and/or contact guard assistance as patient completes activity. Assistance may be provided throughout the activity or intermittently. 3-Partial/Moderate Assistance-helper does LESS THAN HALF the effort. [place] lifts, holds or supports trunk or limbs, but provides less than half the effort. 2-Substantial/Maximal Assistance-helper does MORE THAN HALF the effort. [place] lifts or holds trunk or limbs and provides more than half the effort. 2-Xztccbegs-uwpejv does ALL the effort. Patient does none of the effort to complete the activity. Or, the assistance of 2 or more helpers is required for the patient to complete the activity. If activity was not attempted, code reason: 7-Patient Refused. 9-Not Applicable-not attempted and the patient did not perform the activity before the current illness, exacerbation or injury. 10-Not Attempted due to Environmental Limitations-(lack of equipment, weather restraints, etc.). 88-Not Attempted due to Medical Conditions or Safety Concerns. Sit to Stand (QC): 4 (CGA for safety) Gait Training Does the Patient Walk?: Yes Distance: 80' Walk 10 feet (QC): 4 Walk 50 ft with 2 Turns(QC): 4 Gait Assistive Device: FWW CGA for safety. Patient was stable during ambulation. Wheelchair Training Does the Pt Use a Wheelchair?: No Assessment Patient was steady during ambulation due to increases in knee pain during ambulation patient put a lot of weight through her walker with BUE. Patient fatigued quickly and ceased ambulation due to fatigue. PT Rail Setter Goals Half-Way Goals PT Half-Way Goals Time Frame: May 22, 2019 Roll Left & Right (QC): 6 Sit to Lying (QC): 6 Lying-Sitting on Side/Bed(QC): 6 Sit to Stand (QC): 6 Chair/Bws-kq-Kusml Xfer(QC): 6 Walk 10 feet (QC): 4 Walk 50ft with 2 Turns (QC): 4 PT Plan Problem List Problem List: Activity Tolerance, Functional Strength, Safety, Balance, Gait, Transfer, Bed Mobility, ROM Treatment/Plan Treatment Plan: Continue Plan of Care, Discontinue PT Treatment Plan: Bed Mobility, Education, Functional Activity Ezra, Functional Strength, Gait, Safety, Therapeutic Exercise, Transfers Treatment Duration: May 22, 2019 Frequency: 6 times per week Estimated Hrs Per Day: .25 hour per day Patient and/or Family Agrees t: Yes Safety Risks/Education Patient Education: Gait Training, Transfer Techniques Teaching Methods: Discussion Response to Teaching: Reinforcement Needed Time/GCodes Time In: 1120 Time Out: 1132 Total Billed Treatment Time: 12 Total Billed Treatment 1 visit FA 12 RENATA RYAN PT May 16, 2019 11:42
[2019-05-16] MEDS: ENOXAPARIN 40 MG/0.4 ML (LOVENOX) SYR SC SCH (11:47)
[2019-05-16] MEDS: OXYBUTYNIN (DITROPAN) 5 MG TAB PO SCH (11:48)
[2019-05-16] MEDS: IBUPROFEN 800 MG (MOTRIN) TAB PO SCH ×2 (11:49→18:02)
[2019-05-16] MEDS: GABAPENTIN 600 MG (NEURONTIN) TAB PO SCH ×2 (11:49→18:02)
[2019-05-16] MEDS: metFORMIN 500 MG (GLUCOPHAGE) TAB PO SCH (11:49)
[2019-05-16] MEDS: ASPIRIN E.C. 81 MG (ECOTRIN) TAB PO SCH (11:49)
[2019-05-16] MEDS: DOCUSATE SODIUM 100 MG (COLACE) CAP PO SCH (11:55)
--- NOTE | 2019-05-16 11:55 | NUR ---
C/O OF SL. NAUSEA. ZOFRAN P.O. AND DIET SPRITE GIVEN
--- NOTE | 2019-05-16 13:09 | Cardiology Progress Note ---
Cardiology SOAP Progress Note Subjective: No cardiac complaints. Objective: I&O/Vital Signs 05/16/19 05/16/19 05/16/19 05/16/19 04:00 07:00 08:00 08:00 Temp 36.8 35.9 Pulse 63 63 63 Resp 18 18 B/P (MAP) 109/68 (82) 116/64 (81) Pulse Ox 96 93 O2 Delivery Nasal Cannula Nasal Cannula Nasal Cannula O2 Flow Rate 2.00 2.00 2.00 05/16/19 05/16/19 05/16/19 05/16/19 09:05 09:10 10:52 12:00 Temp 36.0 Pulse 63 81 64 Resp 16 18 B/P (MAP) 130/84 (99) 135/75 (95) 128/67 (87) Pulse Ox 96 99 O2 Delivery Room Air Nasal Cannula O2 Flow Rate 2.00 05/16/19 12:00 Temp 36.0 Pulse 64 Resp 18 B/P (MAP) 128/67 (87) Pulse Ox 99 O2 Delivery Nasal Cannula O2 Flow Rate 4.00 05/16/19 00:00 Intake Total 1978 ml Output Total 1 ml Balance 1977 ml Weight (Pounds): 290 Weight (Ounces): 1.0 Weight (Calculated Kilograms): 131.881233 Constitutional: appears stated age, AAO x 3; No apparent distress; well- developed, well-nourished Respiratory: chest is bilaterally symmetric, lungs clear to auscultation Cardiovascular: regular rate-rhythm, S1 and S2 Gastrointestional: soft, distended, audible bowel sounds; No spleenomegaly Extremities: normal range of motion, non-tender, normal inspection, pedal edema; No clubbing, No cyanosis, No significant edema Neurologic/Psychiatric: no motor/sensory deficits, alert, normal mood/affect, oriented x 3, power is 5/5 both on sides Skin: normal color; No rash, No ulcerations Results/Procedures: Labs Laboratory Tests 05/15/19 16:01: Glucometer 165H 05/15/19 20:09: Glucometer 184H 05/16/19 05:29: Glucometer 126H 05/16/19 11:26: Glucometer 155H A/P: Assessment/Dx: Chest pain, Nausea, vomiting, History of CO, Diabetes, Hypertension, Hyperlipidemia Plan: Chest pain, EKG negative. Serial troponin negative. Echocardiogram 05/16/2019 shows normal LV function with no significant valve abnormality. Nuclear stress test done today which did not show any evidence of infarct or ischemia. Okay to discharge to follow-up with primary care physician. Nausea, vomiting, History of CO, continue outpatient medical therapy. Diabetes, continue metformin. Hypertension, continue angiotensin receptor naldo. Hyperlipidemia, continue statin therapy. Thank you for your consultation. Please call me if you have any questions. Precious Garner MD, FACP, FACC, FSCAI, FHRS, CCDS Interventional Cardiology Cardiac Electrophysiology Vascular Medicine and Endovascular Interventions Clinical Quality Measures AMI/AHF: ASA po Prior to arrival: Concepción Brewer MD May 16, 2019 13:09
--- NOTE | 2019-05-16 13:10 | Cardiology Stress Test Report ---
Stress Test Report Type of NM Stress Test: Test Type: LEXISCAN 0.4MG/5ML Date of Procedure/Referring: Date of Procedure: May 16, 2019 PCP Bisi Oneal DO Admitting Physician Andrew Celis MD Indications: Chest pain Baseline Heart Rate: 60 Baseline Blood Pressure: Blood Pressure Systolic: 128 Blood Pressure Diastolic: 67 Baseline EKG: Baseline EKG: sinus rhythm Summary & Conclusion: Summary: The patient was brought to the stress lab after informed consent was taken. Stress test was performed according to the Lexiscan protocol. 0.4 mg of IV Lexiscan was given. Low-grade exercise was performed. Baseline EKG showed sinus rhythm at 60 BPM, blood pressure 130/84 mmHg. Maximum heart rate 74 bpm and blood pressure 128/73 mmHg. Patient did not have any chest pain, arrhythmias or ST segment changes during the stress test. 10.53 mCi of Myoview were given for rest imaging and 31.9 mCi of Myoview given for stress imaging. Transient ischemic dilatation score 0.96 , EF 73 percent. Normal wall motion. Normal myocardial perfusion imaging during rest and stress. Conclusion: Pharmacological stress test was negative for ischemia. Normal LV function with no wall motion abnormalities. Normal myocardial perfusion imaging during rest and stress. Concepción MAGAÑA MD May 16, 2019 13:10
[2019-05-16] MEDS: SENNOSIDES 8.6 MG (SENOKOT) TAB PO SCH (14:38)
[2019-05-16] MEDS: SENNA W/DOCUSATE (SENOKOT S) TABLET PO SCH (14:38)
--- NOTE | 2019-05-16 14:44 | Occ Therapy Progress Note ---
Therapy Progress Note Pt to discharge this afternoon. Pt reported that she was able to bathe all areas with nrsg while taking shower except back and lower legs due to neuropathy. Long handle sponge given to pt for use at home with bathing. [id number] 1 visit-FA 1 (10 min) JACI PARRA May 16, 2019 14:44
--- NOTE | 2019-05-16 19:35 | NUR ---
MORALES WALKER demonstrates understanding of discharge instructions and accurately returns instructions upon questioning. Copy of Post-Discharge Instructions given to PT. MORALES WALKER is/is not able to manage continuing needs after discharge. Patients belongings returned to PT. Patient discharged from [facility] on 05/16/19 at 1935. MORALES WALKER left floor via W/C, accompanied by STAFF AND VOUCHER TO CAB.
== END 2019-05-16 12:18 | disposition home or self-care (01) ==
LOC: EDUNIT# 18:31 → ER FS 18:32 → UNDOADMIN 19:55 → 4TH 19:55 → UNDODISIN 05-16 19:35
PROVIDERS: ADMIT Internal Medicine; ATTEND Internal Medicine
DX: R07.2 Precordial pain (principal); R00.1 Bradycardia, unspecified; R21 Rash and other nonspecific skin eruption; I69.351 Hemiplegia and hemiparesis following cerebral infarction affecting right dominant side; Z68.41 Body mass index [BMI] 40.0-44.9, adult; E66.01 Morbid (severe) obesity due to excess calories; R11.2 Nausea with vomiting, unspecified; I25.10 Atherosclerotic heart disease of native coronary artery without angina pectoris; I25.2 Old myocardial infarction; I10 Essential (primary) hypertension; J44.9 Chronic obstructive pulmonary disease, unspecified; E11.40 Type 2 diabetes mellitus with diabetic neuropathy, unspecified; E78.5 Hyperlipidemia, unspecified; F32.9 Major depressive disorder, single episode, unspecified; M19.91 Primary osteoarthritis, unspecified site; R53.81 Other malaise; E78.00 Pure hypercholesterolemia, unspecified; Z79.84 Long term (current) use of oral hypoglycemic drugs; Z87.891 Personal history of nicotine dependence
CPT/HCPCS: 36415; 71045; 78452; 80053; 80061; 82962; 83880; 84484; 85025; 85610; 85730; 93005; 93017; 93041; 93306; 94640; G0378

== ENCOUNTER 2019-06-11 17:17 | Emergency (ER) | payer MEDICAID ==
[~2019-06-11] VITALS: Ht 167 cm; Wt 118.0 kg
--- NOTE | 2019-06-11 17:27 | ED General ---
General Stated Complaint: BACK PAIN Source of Information: Patient, EMS Exam Limitations: No Limitations History of Present Illness Date Seen by Provider: Jun 11, 2019 Time Seen by Provider: 17:10 Initial Comments The patient is a 63-year-old morbidly obese female brought in by EMS for evaluation of 2-3 days of low back pain as well as 2 days of dysuria. She states that she is having a problem with skin overgrowing her urethra and that she is scheduled to see a specialist soon. She states that she was able to urinate earlier today without difficulty. She did have some burning with urination and some urgency at that time. The patient is well-known to this emergency department. She denies fevers or chills, chest pain or shortness of breath, abdominal pain other than some suprapubic discomfort, nausea or vomiting, diarrhea, dizziness or syncope. She is alert and oriented 4, calm, and appears to be in no distress at this time. Timing/Duration: 2-3 Days Severity: Moderate Allergies and Home Medications Allergies Uncoded Allergies: IV CONTRAST (Adverse Reaction, Mild, HIVES, 09/17/18) Home Medications Amitriptyline HCl 50 Mg Tablet, 50 MG PO HS, (Reported) Atorvastatin Calcium 40 Mg Tablet, 40 MG PO HS, (Reported) Gabapentin 600 Mg Tablet, 600 MG PO TID, (Reported) Ibuprofen 800 Mg Tablet, 800 MG PO TID, (Reported) Liraglutide 0.6 Mg/0.1 Ml Pen.injctr, 1.8 MG SC DAILY, (Reported) Losartan Potassium 50 Mg Tablet, 50 MG PO DAILY, (Reported) Metformin HCl 1,000 Mg Tablet, 1,000 MG PO BID, (Reported) LAST FILLED #60 02-20-19 Ondansetron 4 Mg Tab.rapdis, 4 MG PO Q6H PRN for NAUSEA/VOMITING-1ST LINE, (Reported) Oxybutynin Chloride 5 Mg Tablet, 5 MG PO TID, (Reported) Patient Home Medication List Home Medication List Reviewed: Yes Review of Systems Review of Systems Constitutional: no symptoms reported EENTM: no symptoms reported Respiratory: no symptoms reported Cardiovascular: no symptoms reported Gastrointestinal: abdominal pain (suprapubic) Genitourinary: dysuria Musculoskeletal: no symptoms reported Skin: no symptoms reported Psychiatric/Neurological: No Symptoms Reported Hematologic/Lymphatic: No Symptoms Reported Immunological/Allergic: no symptoms reported All Other Systems Reviewed Negative Unless Noted: Yes Past Yqksbdn-Rbodzp-Dxqolg Hx Past Med/Social Hx: Reviewed Nursing Past Med/Soc Hx Patient Social History Type Used: Cigarettes Former Smoker, Quit: Dec 07, 1994 2nd Hand Smoke Exposure: No Recent Hopitalizations: No Immunizations Up To Date Tetanus Booster (TDap): Unknown Date of Pneumonia Vaccine: Apr 17, 2015 Seasonal Allergies Seasonal Allergies: No Past Medical History Surgeries: Yes (CYSTOSCOPIES, DILITATION URETHRAL STRICTURE) Appendectomy, Bladder Surgery, Section, Eye Surgery, Gallbladder, Tonsillectomy, Tubal Ligation Respiratory: Yes COPD Cardiac: Yes High Cholesterol, Hypertension Neurological: Yes (CVA W/ R SIDED WEAKNESS) Neuropathy, Stroke Genitourinary: Yes (TRIGONITIS) UTI-Chronic Gastrointestinal: No Musculoskeletal: Yes (CHRONIC KNEE PAIN) Arthritis Endocrine: Yes (MORBID OBESITY) Diabetes, Insulin dep HEENT: No (prior cataract surgeries) Psychosocial: Yes Depression Integumentary: Yes (L ORBITAL CELLULITIS, 2018 CHEEK CELLULITIS) Recent Skin Changes Family Medical History Patient reports no known family medical history. No Pertinent Family Hx Physical Exam Vital Signs Vital Signs - First Documented 06/11/19 17:27 Temp 36.5 Pulse 61 Resp 18 B/P (MAP) 138/97 (111) Pulse Ox 97 O2 Delivery Room Air Capillary Refill : Height, Weight, BMI Height: 5'6.00" Weight: 290lbs. 1.0oz. 131.093573mv; 43.89 BMI Method:Stated General Appearance: No Apparent Distress, WD/WN, Obese HEENT: PERRL/EOMI, Pharynx Normal Respiratory: Chest Non Tender, Lungs Clear, Normal Breath Sounds, No Accessory Muscle Use Cardiovascular: Regular Rate, Rhythm, No Edema, No Murmur, Normal Peripheral Pulses Gastrointestinal: Normal Bowel Sounds, No Pulsatile Mass, Soft, Tenderness (mild suprapubic ttp) Genital/Rectal: Other (No urethral abnormality seen, no difficulty with straight cath) Back: Normal Inspection, CVA Tenderness (L), CVA Tenderness (R) Extremity: Normal Capillary Refill, Normal Inspection, Normal Range of Motion, Non Tender Neurologic/Psychiatric: Alert, Oriented x3, No Motor/Sensory Deficits, Normal Mood/Affect Skin: Normal Color, Warm/Dry Progress/Results/Core Measures Suspected Sepsis SIRS Temperature: Pulse: Respiratory Rate: Laboratory Tests 06/11/19 17:21: White Blood Count 7.3 Blood Pressure / Mean: Laboratory Tests 06/11/19 17:21: Creatinine 0.88, Platelet Count 243, Total Bilirubin 0.4 Results/Orders Lab Results Laboratory Tests Test 06/11/19 17:21 Range/Units White Blood Count 7.3 4.3-11.0 10^3/uL Red Blood Count 3.92 L 4.35-5.85 10^6/uL Hemoglobin 12.6 11.5-16.0 G/DL Hematocrit 37 35-52 % Mean Corpuscular Volume 95 80-99 FL Mean Corpuscular Hemoglobin 32 25-34 PG Mean Corpuscular Hemoglobin Concent 34 32-36 G/DL Red Cell Distribution Width 13.8 10.0-14.5 % Platelet Count 243 130-400 10^3/uL Mean Platelet Volume 8.7 7.4-10.4 FL Neutrophils (%) (Auto) 59 42-75 % Lymphocytes (%) (Auto) 32 12-44 % Monocytes (%) (Auto) 7 0-12 % Eosinophils (%) (Auto) 2 0-10 % Basophils (%) (Auto) 0 0-10 % Neutrophils # (Auto) 4.4 1.8-7.8 X 10^3 Lymphocytes # (Auto) 2.3 1.0-4.0 X 10^3 Monocytes # (Auto) 0.5 0.0-1.0 X 10^3 Eosinophils # (Auto) 0.1 0.0-0.3 10^3/uL Basophils # (Auto) 0.0 0.0-0.1 10^3/uL Urine Color YELLOW Urine Clarity CLEAR Urine pH 5.5 5-9 Urine Specific [place] >=1.030 1.016-1.022 Urine Protein NEGATIVE NEGATIVE Urine Glucose (UA) NEGATIVE NEGATIVE Urine Ketones NEGATIVE NEGATIVE Urine Nitrite NEGATIVE NEGATIVE Urine Bilirubin NEGATIVE NEGATIVE Urine Urobilinogen 0.2 < = 1.0 MG/DL Urine Leukocyte Esterase NEGATIVE NEGATIVE Urine RBC (Auto) NEGATIVE NEGATIVE Urine RBC NONE /HPF Urine WBC 0-2 /HPF Urine Squamous Epithelial Cells 2-5 /HPF Urine Crystals NONE /LPF Urine Bacteria NEGATIVE /HPF Urine Casts NONE /LPF Urine Mucus SMALL H /LPF Urine Culture Indicated NO Sodium Level 140 135-145 MMOL/L Potassium Level 4.1 3.6-5.0 MMOL/L Chloride Level 106 98-107 MMOL/L Carbon Dioxide Level 19 L 21-32 MMOL/L Anion Gap 15 H 5-14 MMOL/L Blood Urea Nitrogen 19 H 7-18 MG/DL Creatinine 0.88 0.60-1.30 MG/DL Estimat Glomerular Filtration Rate > 60 BUN/Creatinine Ratio 22 Glucose Level 101 70-105 MG/DL Calcium Level 8.7 8.5-10.1 MG/DL Corrected Calcium 9.0 8.5-10.1 MG/DL Total Bilirubin 0.4 0.1-1.0 MG/DL Aspartate Amino Transf (AST/SGOT) 14 5-34 U/L Alanine Aminotransferase (ALT/SGPT) 12 0-55 U/L Alkaline Phosphatase 56 40-136 U/L Total Protein 7.1 6.4-8.2 GM/DL Albumin 3.6 3.2-4.5 GM/DL My Orders Orders - LINDA CISNEROS DO Cbc With Automated Diff (06/11/19 17:19) Comprehensive Metabolic Panel (06/11/19 17:19) Ua Culture If Indicated (06/11/19 17:19) Ct Abdomen/Pelvis Wo (06/11/19 17:19) Straight Cath For Spec.-Adult (06/11/19 17:19) Vital Signs/I&O 06/11/19 17:27 Temp 36.5 Pulse 61 Resp 18 B/P (MAP) 138/97 (111) Pulse Ox 97 O2 Delivery Room Air Capillary Refill : Progress Note : Progress Note @1820 - patient updated on lab and imaging results which are acutely unremarkable. She states that she is feeling better. She has received some IV fluids which should help with the dehydration. Advised Pyridium for urinary discomfort. Advised the patient to keep the appointment with her other doctors. Workup today fails to reveal any emergent pathology. The patient is stable for discharge home at this time. The patient expresses verbal understanding and agreement with the plan and is stable for discharge. Departure Impression Primary Impression: Dysuria Additional Impressions: Low back pain DEHYDRATION Disposition: HOME, SELF-CARE Condition: Stable Departure-Patient Inst. Decision time for Depature: 18:26 Referrals: KATIE HUDSON MD (PCP/Family) Primary Care Physician Patient Instructions: Dysuria, Adult (DC), Low Back Pain (DC) Add. Discharge Instructions: Take the prescribed medicine instructed. Return to the Emergency Department immediately for new or worsening symptoms. Follow-up with your doctor in the next 1-2 days. Scripts Phenazopyridine HCl (Pyridium) 200 Mg Tablet 1 TAB PO Q8H for 5 Days, #15 TAB Prov: LINDA CISNEROS DO 06/11/19 LINDA CISNEROS DO Jun 11, 2019 17:27
[2019-06-11 17:32] LABS: EOSINOPHILS % (AUTO) 2 % (0-10); HEMATOCRIT 37 % (35-52); HEMOGLOBIN 12.6 G/DL (11.5-16.0); LYMPHOCYTES % (AUTO) 32 % (12-44); MEAN CORPUSCULAR HEMOGLOBIN 32 PG (25-34); MEAN CORPUSCULAR HGB CONC 34 G/DL (32-36); MEAN CORPUSCULAR VOLUME 95 FL (80-99); MEAN PLATELET VOLUME 8.7 FL (7.4-10.4); MONOCYTES % (AUTO) 7 % (0-12); NEUTROPHILS % (AUTO) 59 % (42-75); PLATELET COUNT 243 10^3/uL (130-400); RED CELL DISTRIBUTION WIDTH 13.8 % (10.0-14.5); WHITE BLOOD COUNT 7.3 10^3/uL (4.3-11.0)
[2019-06-11 17:33] LABS: BASOPHILS % (AUTO) 0 % (0-10); EOSINOPHILS # (AUTO) 0.1 10^3/uL (0.0-0.3); LYMPHOCYTES # (AUTO) 2.3 X 10^3 (1.0-4.0); MONOCYTES # (AUTO) 0.5 X 10^3 (0.0-1.0); NEUTROPHILS # (AUTO) 4.4 X 10^3 (1.8-7.8)
[2019-06-11 17:41] LABS: BACTERIA,URINE NEGATIVE /HPF; BILIRUBIN,URINE NEGATIVE (NEGATIVE); CLARITY,URINE CLEAR; COLOR,URINE YELLOW; GLUCOSE, URINE (UA) NEGATIVE (NEGATIVE); KETONES,URINE NEGATIVE (NEGATIVE); LEUKOCYTE ESTERASE ,URINE NEGATIVE (NEGATIVE); NITRITE,URINE NEGATIVE (NEGATIVE); PH,URINE 5.5 (5-9); PROTEIN,URINE NEGATIVE (NEGATIVE); WBC,URINE 0-2 /HPF
[2019-06-11 17:56] LABS: ALANINE AMINOTRANSFERASE 12 U/L (0-55); ALBUMIN 3.6 GM/DL (3.2-4.5); ALKALINE PHOSPHATASE 56 U/L (40-136); BILIRUBIN,TOTAL 0.4 MG/DL (0.1-1.0); BUN/CREATININE RATIO 22; CALCIUM 8.7 MG/DL (8.5-10.1); CARBON DIOXIDE 19 MMOL/L (21-32); CHLORIDE 106 MMOL/L (98-107); CREATININE SERUM 0.88 MG/DL (0.60-1.30); GFR ESTIMATED > 60; GLUCOSE 101 MG/DL (70-105); POTASSIUM 4.1 MMOL/L (3.6-5.0); SODIUM 140 MMOL/L (135-145); TOTAL PROTEIN 7.1 GM/DL (6.4-8.2)
--- NOTE | 2019-06-11 18:03 | Diagnostic Imaging Report ---
PROCEDURE: CT abdomen and pelvis without contrast. TECHNIQUE: Multiple contiguous axial images were obtained through the abdomen and pelvis without the use of intravenous contrast. Auto Exposure Controls were utilized during the CT exam to meet ALARA standards for radiation dose reduction. INDICATION: Midback pain as well as painful urination for three days. COMPARISON: Correlation is made with prior CT from 11/17/2018. FINDINGS: The lung bases are clear. No discrete liver mass is identified. Gallbladder appears to be surgically absent. No biliary ductal dilatation is seen. The pancreas and spleen are unremarkable. No adrenal mass is identified. No renal calculi or hydronephrosis is identified. Aorta is nonaneurysmal. The bowel loops appear to be nondilated. No obstruction is seen. The bladder is decompressed by Jones catheter. There is no free fluid or fluid collection. Uterus is unremarkable. Bony structures are nonacute. IMPRESSION: Essentially unremarkable noncontrast CT of the abdomen and pelvis. No acute abnormality is detected. Dictated by: Dictated on workstation # [id number]
[2019-06-11] MEDS ORDERED: PHEN-640 PO (18:27)
[2019-06-11 18:37] VITALS: BP 124/60
== END 2019-06-11 18:45 | disposition home or self-care (01) ==
LOC: EDUNIT# 17:17 → ER FS 17:18
DX: R30.0 Dysuria (principal); M54.5 Low back pain; E86.0 Dehydration; I10 Essential (primary) hypertension; E78.00 Pure hypercholesterolemia, unspecified; E11.42 Type 2 diabetes mellitus with diabetic polyneuropathy; E66.01 Morbid (severe) obesity due to excess calories; M25.561 Pain in right knee; G89.29 Other chronic pain; F32.9 Major depressive disorder, single episode, unspecified; Z68.41 Body mass index [BMI] 40.0-44.9, adult; Z86.73 Personal history of transient ischemic attack (TIA), and cerebral infarction without residual deficits; Z91.041 Radiographic dye allergy status; Z79.84 Long term (current) use of oral hypoglycemic drugs; Z87.891 Personal history of nicotine dependence; Z90.49 Acquired absence of other specified parts of digestive tract; Z90.89 Acquired absence of other organs; Z98.51 Tubal ligation status
CPT/HCPCS: 36415; 51701; 74176; 80053; 81000; 85025; 93005

== ENCOUNTER 2019-08-20 12:50 | Emergency (ER) | payer MEDICAID ==
[~2019-08-20] VITALS: Ht 167 cm; Wt 118.0 kg
[~2019-08-20 12:50] MED LIST changes: +PHEN-640 PO
--- NOTE | 2019-08-20 13:02 | ED GI ---
General Chief Complaint: Abdominal/GI Problems Stated Complaint: N,V,D Source of Information: Patient, EMS Exam Limitations: No Limitations History of Present Illness Date Seen by Provider: August 20, 2019 Time Seen by Provider: 12:59 Initial Comments presents w a few days of nausea, vomiting and diarrhea w abdominal cramping and body aches. Denies sick contacts. No known fever. Able to drink clear liquids, but vomits solid food. Also states she "has MRSA break out" on her face. Hx of the same and says she can't get her ahold of her Dr. No other skin lesions. Allergies and Home Medications Allergies Uncoded Allergies: IV CONTRAST (Adverse Reaction, Mild, HIVES, 09/17/18) Home Medications Amitriptyline HCl 50 Mg Tablet, 50 MG PO HS, (Reported) Atorvastatin Calcium 40 Mg Tablet, 40 MG PO HS, (Reported) Gabapentin 600 Mg Tablet, 600 MG PO TID, (Reported) Ibuprofen 800 Mg Tablet, 800 MG PO TID, (Reported) Liraglutide 0.6 Mg/0.1 Ml Pen.injctr, 1.8 MG SC DAILY, (Reported) Loperamide HCl 2 Mg Tablet, 2 MG PO BID PRN Prescribed by: KARTIK MCCARTY on 08/20/19 1433 Losartan Potassium 50 Mg Tablet, 50 MG PO DAILY, (Reported) Metformin HCl 1,000 Mg Tablet, 1,000 MG PO BID, (Reported) LAST FILLED #60 02-20-19 Mupirocin 22 Gm Oint...g., 22 GM TP DAILY Prescribed by: KARTIK MCCARTY on 08/20/19 1433 Ondansetron 4 Mg Tab.rapdis, 4 MG PO Q6H PRN for NAUSEA/VOMITING-1ST LINE, (Reported) Ondansetron 4 Mg Tab.rapdis, 4 MG PO TID Prescribed by: KARTIK RENNERSTCAMERON on 08/20/19 1433 Oxybutynin Chloride 5 Mg Tablet, 5 MG PO TID, (Reported) Phenazopyridine HCl 200 Mg Tablet, 1 TAB PO Q8H Prescribed by: LINDA CISNEROS on 06/11/19 1827 Sulfamethoxazole/Trimethoprim 1 Each Tablet, 1 EACH PO BID Prescribed by: KARTIK MCCARTY on 08/20/19 1433 Sulfamethoxazole/Trimethoprim 1 Each Tablet, 1 EACH PO BID Prescribed by: KARTIK MCCARTY on 08/20/19 7259 Patient Home Medication List Home Medication List Reviewed: Yes Review of Systems Review of Systems Constitutional: see HPI; No diaphoresis, No dizziness, No fever; malaise Respiratory: Denies Cough, Denies Shortness of Air Cardiovascular: Denies Chest Pain, Denies Edema Gastrointestinal: See HPI, Abdominal Pain, Diarrhea, Nausea, Poor Appetite, Poor Fluid Intake, Vomiting Genitourinary: Denies Burning, Denies Frequency Musculoskeletal: back pain, joint pain, muscle cramps Skin: No change in color, No lesions; rash (face) Past Jtlsosb-Eqaqxc-Vgloah Hx Past Med/Social Hx: Reviewed Nursing Past Med/Soc Hx Patient Social History Type Used: Cigarettes Former Smoker, Quit: Dec 07, 1994 2nd Hand Smoke Exposure: No Recent Hopitalizations: No Immunizations Up To Date Tetanus Booster (TDap): Unknown Date of Pneumonia Vaccine: Apr 17, 2015 Seasonal Allergies Seasonal Allergies: No Past Medical History Surgeries: Yes (CYSTOSCOPIES, DILITATION URETHRAL STRICTURE) Appendectomy, Bladder Surgery, Section, Eye Surgery, Gallbladder, Tonsillectomy, Tubal Ligation Respiratory: Yes COPD Cardiac: Yes High Cholesterol, Hypertension Neurological: Yes (CVA W/ R SIDED WEAKNESS) Neuropathy, Stroke Genitourinary: Yes (TRIGONITIS) UTI-Chronic Gastrointestinal: No Musculoskeletal: Yes (CHRONIC KNEE PAIN) Arthritis Endocrine: Yes (MORBID OBESITY) Diabetes, Insulin dep HEENT: No (prior cataract surgeries) Cancer: No Psychosocial: Yes Depression Integumentary: Yes (L ORBITAL CELLULITIS, 2018 CHEEK CELLULITIS) Recent Skin Changes Blood Disorders: No Family Medical History Patient reports no known family medical history. No Pertinent Family Hx Physical Exam Vital Signs Vital Signs - First Documented 08/20/19 13:01 Temp 36.7 Pulse 63 Resp 16 B/P (MAP) 126/66 (86) Pulse Ox 91 Capillary Refill : Height/Weight/BMI Height: 5'6.00" Weight: 290lbs. 1.0oz. 131.326886bm; 42.00 BMI Method:Stated General Appearance: WD/WN, no apparent distress HEENT: normal ENT inspection Respiratory: chest non-tender, lungs clear Cardiovascular: regular rate, rhythm, no edema, no JVD Gastrointestinal: normal bowel sounds, non tender, soft Extremities: normal range of motion, non-tender Neurologic/Psychiatric: no motor/sensory deficits, alert, normal mood/affect Skin: normal color, warm/dry, other (erythematous papules, non vessicular face.) Progress/Results/Core Measures Results/Orders Lab Results Laboratory Tests Test 08/20/19 13:00 Range/Units White Blood Count 6.6 4.3-11.0 10^3/uL Red Blood Count 3.89 L 4.35-5.85 10^6/uL Hemoglobin 12.6 11.5-16.0 G/DL Hematocrit 38 35-52 % Mean Corpuscular Volume 97 80-99 FL Mean Corpuscular Hemoglobin 32 25-34 PG Mean Corpuscular Hemoglobin Concent 33 32-36 G/DL Red Cell Distribution Width 13.2 10.0-14.5 % Platelet Count 217 130-400 10^3/uL Mean Platelet Volume 9.0 7.4-10.4 FL Neutrophils (%) (Auto) 69 42-75 % Lymphocytes (%) (Auto) 23 12-44 % Monocytes (%) (Auto) 6 0-12 % Eosinophils (%) (Auto) 2 0-10 % Basophils (%) (Auto) 0 0-10 % Neutrophils # (Auto) 4.5 1.8-7.8 X 10^3 Lymphocytes # (Auto) 1.5 1.0-4.0 X 10^3 Monocytes # (Auto) 0.4 0.0-1.0 X 10^3 Eosinophils # (Auto) 0.1 0.0-0.3 10^3/uL Basophils # (Auto) 0.0 0.0-0.1 10^3/uL Sodium Level 137 135-145 MMOL/L Potassium Level 3.9 3.6-5.0 MMOL/L Chloride Level 102 98-107 MMOL/L Carbon Dioxide Level 21 21-32 MMOL/L Anion Gap 14 5-14 MMOL/L Blood Urea Nitrogen 17 7-18 MG/DL Creatinine 0.80 0.60-1.30 MG/DL Estimat Glomerular Filtration Rate > 60 BUN/Creatinine Ratio 21 Glucose Level 154 H 70-105 MG/DL Calcium Level 8.4 L 8.5-10.1 MG/DL Corrected Calcium 8.9 8.5-10.1 MG/DL Total Bilirubin 0.4 0.1-1.0 MG/DL Aspartate Amino Transf (AST/SGOT) 12 5-34 U/L Alanine Aminotransferase (ALT/SGPT) 7 0-55 U/L Alkaline Phosphatase 54 40-136 U/L Total Protein 6.7 6.4-8.2 GM/DL Albumin 3.4 3.2-4.5 GM/DL My Orders Orders - ROVENSTINEUYENKARTIK L DO Ed Iv/Invasive Line Start (08/20/19 13:03) Cbc With Automated Diff (08/20/19 13:03) Comprehensive Metabolic Panel (08/20/19 13:03) Abdomen Flat & Upright/Decub (08/20/19 13:03) Vital Signs/I&O 08/20/19 08/20/19 13:01 14:43 Temp 36.7 36.9 Pulse 63 67 Resp 16 16 B/P (MAP) 126/66 (86) 123/69 Pulse Ox 91 94 Progress Progress Note : Progress Note pt requesting tx for "MRSA" on face. Not confirmed, but per pt Hx. Rx- bactroban for nasal use and bactrim DS Departure Impression Primary Impression: Gastroenteritis Additional Impression: Acne Qualified Codes: L70.9 - Acne, unspecified Disposition: HOME, SELF-CARE Condition: Stable Departure-Patient Inst. Decision time for Depature: 14:30 Referrals: KATIE HUDSON MD (PCP/Family) Primary Care Physician Patient Instructions: Viral Gastroenteritis, Adult (DC), Acne Add. Discharge Instructions: see your doctor in 1 week for re-evaluation, ER sooner if unable to be seen or worse. All discharge instructions reviewed with patient and/or family. Voiced understanding. Scripts Sulfamethoxazole/Trimethoprim (Bactrim Ds Tablet) 1 Each Tablet 1 EACH PO BID, #14 TAB 0 Refills Prov: ROVENSTINE,KARTIK L DO 5/5/20 Sulfamethoxazole/Trimethoprim (Sulfamethoxazole-Tmp Ss Tablet) 1 Each Tablet 1 EACH PO BID, #14 TAB Prov: ROVENSTINEUYENKARTIK L DO 5/5/20 Mupirocin (Mupirocin) 22 Gm Oint...g. 22 GM TP DAILY, #1 TUBE Prov: ROVENSTINEUYENKARTIK L DO 5/20 Ondansetron (Ondansetron Odt) 4 Mg Tab.rapdis 4 MG PO TID for Nausea, #10 TAB Prov: KARTIK MCCARTY DO 08/20/19 Loperamide HCl (Loperamide) 2 Mg Tablet 2 MG PO BID PRN for Diarrhea, #10 TAB Prov: KARTIK MCCARTY DO 08/20/19 KARTIK MCCARTY DO August 20, 2019 13:02
--- NOTE | 2019-08-20 13:05 | NUR ---
1 liter of normal saline started by EMS. At arrival of EMS 500ml were completed. Liter running wide open.
[2019-08-20 13:16] LABS: HEMOGLOBIN 12.6 G/DL (11.5-16.0); MEAN CORPUSCULAR HEMOGLOBIN 32 PG (25-34); WHITE BLOOD COUNT 6.6 10^3/uL (4.3-11.0)
[2019-08-20 13:17] LABS: BASOPHILS % (AUTO) 0 % (0-10); EOSINOPHILS # (AUTO) 0.1 10^3/uL (0.0-0.3); EOSINOPHILS % (AUTO) 2 % (0-10); HEMATOCRIT 38 % (35-52); LYMPHOCYTES # (AUTO) 1.5 X 10^3 (1.0-4.0); LYMPHOCYTES % (AUTO) 23 % (12-44); MEAN CORPUSCULAR HGB CONC 33 G/DL (32-36); MEAN CORPUSCULAR VOLUME 97 FL (80-99); MONOCYTES # (AUTO) 0.4 X 10^3 (0.0-1.0); MONOCYTES % (AUTO) 6 % (0-12); NEUTROPHILS # (AUTO) 4.5 X 10^3 (1.8-7.8); NEUTROPHILS % (AUTO) 69 % (42-75); PLATELET COUNT 217 10^3/uL (130-400); RED CELL DISTRIBUTION WIDTH 13.2 % (10.0-14.5)
[2019-08-20 13:31] LABS: SODIUM 137 MMOL/L (135-145)
[2019-08-20 13:32] LABS: ALANINE AMINOTRANSFERASE 7 U/L (0-55); ALBUMIN 3.4 GM/DL (3.2-4.5); ALKALINE PHOSPHATASE 54 U/L (40-136); BILIRUBIN,TOTAL 0.4 MG/DL (0.1-1.0); BUN/CREATININE RATIO 21; CALCIUM 8.4 MG/DL (8.5-10.1); CARBON DIOXIDE 21 MMOL/L (21-32); CHLORIDE 102 MMOL/L (98-107); GFR ESTIMATED > 60; GLUCOSE 154 MG/DL (70-105); POTASSIUM 3.9 MMOL/L (3.6-5.0); TOTAL PROTEIN 6.7 GM/DL (6.4-8.2)
--- NOTE | 2019-08-20 14:09 | Diagnostic Imaging Report ---
INDICATION: Nausea, vomiting and diarrhea x4 days. Right-sided abdominal pain. TECHNIQUE: Supine and upright view of the abdomen 1:30 PM CORRELATION STUDY: None FINDINGS: Moderate amount of retained fecal material throughout the colon. No disproportionate fecal impaction. There is no abnormally dilated loops of bowel or findings to suggest high degree bowel obstruction. Advanced degenerative changes lumbar spine with rightward curvature present. Also significantly advanced degenerative changes of both hips with rather prominent overhanging osteophytes. IMPRESSION: 1. Mild severity fecal retention without evidence for large fecal impaction or overt bowel obstruction. Dictated by: Dictated on workstation # [id number]
[2019-08-20] MEDS ORDERED: LOPE2TAB34 PO (14:33)
[2019-08-20] MEDS ORDERED: SULF1TAB35 PO (14:33)
[2019-08-20] MEDS ORDERED: ONDA4TAB11 PO (14:33)
[2019-08-20] MEDS ORDERED: MUPI22OI2 TP (14:33)
[2019-08-20] MEDS ORDERED: SULF-11 PO (14:33)
[2019-08-20 14:43] VITALS: BP 123/69
--- OUTSIDE RECORDS SUMMARY | 2019-08-20 15:57 | XMS REPORT ---
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 Name Role Phone KATIE HUDSON Unavailable PROBLEMS Type Condition ICD9-CM Code UGB15-VS Code Onset Dates Condition S tatus SNOMED Code Problem CAD (coronary artery disease) I25.10 Active 27038537 Problem Osteoarthritis of knees, bilateral M17.0 Active 549478447 Problem Essential hypertension I10 Active 09906600 Problem Diabetes E11.9 Active 79180167 Problem Arthritis M19.90 Active 8039462 Problem Morbid obesity E66.01 Active 04328 6002 Problem Hyperlipemia E78.5 Active 5174267 4 ALLERGIES No Information ENCOUNTERS Encounter Location Date Diagnosis [facility] [address] [id number] [address] [place] [id number] August, [facility] [address] [facility] [id number] [address] [place] [phone] August, [facility] [address] [facility] [id number] [address] [place] [phone] August, [facility] [address] [facility] [id number] [address] [place] [phone] August, [facility] [address] [id number] [address] [place] [id number] Jul, [facility] [address] [facility] [id number] [address] [place] [phone] Jul, [facility] [address] [facility] [id number] [address] [place] [id number] Jul, [facility] [address] [facility] [id number] [address] [place] [id number] Jul, [facility] [address] [facility] [id number] [address] [place] [phone] Jun, [facility] [address] [facility] [id number] [address] [place] [phone] Jun, [facility] [address] [facility] [id number] [address] [place] [phone] Jun, Diabetes E11.9 ; Skin infect ion L08.9 and Essential hypertension I10 [facility] [address] [facility] [id number] [address] [place] [id number] 05 May, 2019 [facility] [address] [facility] [id number] [address] [place] [phone] May, [facility] [address] [facility] [id number] [address] [place] [phone] May, [facility] [address] [facility] [id number] [address] [place] [phone] Apr, [facility] [address] [facility] [id number] [address] [place] [phone] Mar, [facility] [address] [address] Mar, [facility] [address] [facility] [id number] [address] [place] [phone] Feb, [facility] [address] [facility] [id number] [address] [place] [phone] Nov, [facility] [address] [facility] [id number] [address] [place] [id number] Nov, Diabetes E11.9 and Syncope, unspecified syncope type R55 [facility] [address] [facility] [id number] [address] [place] [phone] Nov, Osteoarthritis of knees, natan ateral M17.0 [facility] [address] [facility] [id number] [address] [place] [phone] Oct, Diabetes E11.9 ; CAD (guardado ry artery disease) I25.10 ; Essential hypertension I10 and Hyperlipemia E78.5 [facility] [address] [place] [id number] [address] [place] [phone] Sep, [facility] [address] [place] [id number] [address] [place] [id number] Jul, [facility] [address] [place] [id number] [place] [address] Apr, [facility] [address] [place] [id number] [place] [phone] Mar, Pustular lesion L08.9 and En counter for immunization Z23 [place] [address] [place] [id number] [place] [phone] Feb, [place] [address] [address] Dec, [place] [address] [phone] Dec, [facility] [address] [place] [id number] [address] [place] [address] Dec, Diabetes E11.9 ; Essential h ypertension I10 ; Arthritis M19.90 ; Urinary frequency R35.0 ; Routine adult health maintenance Z00.00 and BMI 45.0- 49.9, adult Z68.42 [place] [address] [place] [id number] [address] [place] [address] Dec, [facility] [address] [place] [id number] [address] [place] [phone] Dec, [facility] [address] [place] [id number] [place] [phone] Oct, [facility] [address] [place] [id number] [address] [place] [phone] Sep, Diabetes E11.9 [place] [address] [place] [id number] [place] [address] Sep, Diabetes E11.9 ; Hyperlipemi a E78.5 ; CAD (coronary artery disease) I25.10 ; Essential hypertension I10 and BMI 45.0-49.9, adult Z68.42 [place] [address] [address] Sep, [place] [address] [address] August, [place] [address] [address] Jan, Dysuria R30.0 [place] [address] [address] Jan, Dysuria R30.0 [place] [address] [address] Jan, Osteoarthritis of knees, natan ateral M17.0 [place] [address] [address] Nov, Dysuria R30.0 [place] [address] [address] Oct, Blood in urine R31.9 ; Dysur ia R30.0 ; Pharyngeal dysphagia R13.13 ; Acute cystitis with hematuria N30.01 ; CAD (coronary artery disease) I25.10 and Diabetes E11.9 [place] [address] [address] Oct, [place] [address] [address] Sep, Arthritis M19.90 ; Blood in urine R31.9 ; Diabetes E11.9 ; Acute cystitis with hematuria N30.01 and Pharyngoesophageal dysphagia R13.14 [place] [address] [address] Sep, Osteoarthritis of knees, natan ateral M17.0 [place] [address] [id number] [address] [place] [phone] Sep, Osteoarthritis of knees, natan ateral M17.0 [facility] [address] [id number] [address] [place] [id number] August, Arthritis M19.90 [facility] [address] [id number] [address] [place] [id number] Jul, Arthritis M19.90 [facility] [address] [id number] [address] [place] [address] Jun, Arthritis M19.90 [facility] [address] [id number] [address] [place] [id number] Jun, [facility] [address] [facility] [id number] [address] [place] [address] Jun, [facility] [address] [facility] [id number] [address] [place] [address] May, Diabetes E11.9 ; Dysuria R30 .0 and Arthritis M19.90 [facility] [address] [id number] [address] [place] [address] Apr, [facility] [address] [facility] [id number] [address] [place] [address] Apr, Arthritis M19.90 [facility] [address] [id number] [address] [place] [id number] Mar, Arthritis M19.90 [facility] [address] [id number] [address] [place] [phone] Feb, [facility] [address] [id number] [address] [place] [id number] 28 Jan, 2016 [facility] [address] [id number] [address] [place] [id number] 29 Dec, 2015 Diabetes E11.9 and Arthritis M19.90 [facility] [address] [id number] [address] [place] [id number] Dec, [facility] [address] [id number] [address] [place] [phone] Nov, Arthritis M19.90 [facility] [address] [id number] [address] [place] [phone] Nov, [facility] [address] [id number] [address] [place] [id number] Oct, Arthritis M19.90 [facility] [address] [id number] [address] [place] [address] Sep, Osteoarthritis of knees, natan ateral M17.0 [facility] [address] [id number] [address] [place] [id number] Sep, Osteoarthritis of knees, natan ateral M17.0 [facility] [address] [id number] [address] [place] [address] August, Arthritis M19.90 [facility] [address] [id number] [address] [place] [id number] August, [facility] [address] [id number] [address] [place] [phone] Jul, Hyperlipemia E78.5 [facility] [address] [id number] [address] [place] [address] Jul, Encounter for well woman exa m Z01.419 ; Morbid obesity E66.01 ; Encounter for screening for malignant neoplasm of cervix Z12.4 and Encounter for screening mammogram for breast cancer Z12.31 [facility] [address] [id number] [address] [place] [id number] Jul, Arthritis M19.90 ; Diabetes E11.9 ; Blood in urine R31.9 and UTI (urinary tract infection) N39.0 [facility] [address] [id number] [address] [place] [phone] Jul, [facility] [address] [id number] [address] [place] [address] Jun, Arthritis M19.90 [facility] [address] [id number] [address] [place] [phone] May, Arthritis M19.90 [facility] [address] [id number] [address] [place] [id number] May, [facility] [address] [id number] [address] [place] [phone] Apr, [facility] [address] [id number] [address] [place] [id number] Apr, Arthritis M19.90 ; Diabetes E11.9 and Morbid obesity E66.01 [facility] [address] [id number] [address] [place] [id number] Apr, [facility] [address] [facility] [id number] [address] [place] [address] Apr, Dyspareunia N94.1 [facility] [address] [id number] [address] [place] [id number] Apr, [facility] [address] [facility] [id number] [address] [place] [phone] Apr, [facility] [address] [facility] [id number] [address] [place] [id number] Apr, Osteoarthritis of knees, natan ateral M17.0 [facility] [address] [id number] [address] [place] [id number] Apr, Diabetes E11.9 and CAD (elysia nary artery disease) I25.10 [facility] [address] [id number] [address] [place] [phone] Mar, [facility] [address] [facility] [id number] [address] [place] [phone] Feb, [facility] [address] [facility] [id number] [address] [place] [id number] 30 Jan, 2015 [facility] [address] [id number] [address] [place] [id number] 15 Jan, 2015 [facility] [address] [id number] [address] [place] [phone] Jan, [facility] [address] [id number] [address] [place] [id number] Jan, Osteoarthritis of knees, natan ateral M17.0 [facility] [address] [id number] [address] [place] [id number] 30 Dec, 2014 [facility] [address] [id number] [address] [place] [id number] Dec, [facility] [address] [id number] [address] [place] [phone] Dec, [facility] [address] [id number] [address] [place] [phone] Dec, Diabetes mellitus 250.00 and UTI (urinary tract infection) 599.0 [facility] [address] [id number] [address] [place] [id number] Dec, [facility] [address] [id number] [address] [place] [id number] Nov, [facility] [address] [id number] [address] [place] [id number] Oct, [facility] [address] [id number] [address] [place] [phone] Oct, [facility] [address] [id number] [address] [place] [phone] Oct, [facility] [address] [id number] [address] [place] [id number] Oct, [facility] [address] [id number] [address] [place] [phone] Oct, [facility] [address] [id number] [address] [place] [id number] Sep, [facility] [address] [id number] [address] [place] [address], [place] [address] August, [facility] [address] [id number] [address] [place] [address], [place] [id number] August, [facility] [address] [id number] [address] [place] [address], [place] [address] August, [facility] [address] [id number] [address] [place] [address], [place] [id number] Jul, [facility] [address] [id number] [address] [place] [address], [place] [address] Jul, [facility] [address] [id number] [address] [place] [address], [place] [address] Jul, [facility] [address] [id number] [address] [place] [address], [place] [id number] Jun, [facility] [address] [id number] [address] [place] [address], [place] [address] Jun, [facility] [address] [id number] [address] [place] [address], [place] [address] Jun, [facility] [address] [id number] [address] [place] [address], [place] [address] Jun, [facility] [address] [id number] [address] [place] [address], [place] [address] Jun, [facility] [address] [id number] [address] [place] [address], [place] [address] Jun, [facility] [address] [id number] [address] [place] [address], [place] [address] Jun, [facility] [address] [id number] [address] [place] [address], [place] [address] Jun, [facility] [address] [id number] [address] [place] [address], [place] [address] May, [facility] [address] [id number] [address] [place] [address], [place] [address] May, 2014 [facility] [address] [id number] [address] [place] [address], [place] [address] May, 2014 [facility] [address] [id number] [address] [place] [address], [place] [address] May, 2014 [facility] [address] [id number] [address] [place] [address], [place] [id number] May, 2014 [facility] [address] [id number] [address] [place] [address], [place] [id number] May, 2014 [facility] [address] [id number] [address] [place] [address], [place] [id number] May, 2014 [facility] [address] [id number] [address] [place] [address], [place] [phone] May, 2014 [facility] [address] [id number] [address] [place] [address], [place] [phone] May, 2014 [facility] [address] [id number] [address] [place] [address], [place] [address] May, [facility] [address] [id number] [address] [place] [address], [place] [address] May, [facility] [address] [id number] [address] [place] [address], [place] [phone] May, [facility] [address] [id number] [address] [place] [address], [place] [address] Apr, [facility] [address] [id number] [address] [place] [address], [place] [address] Apr, [facility] [address] [id number] [address] [place] [address], [place] [address] Mar, [facility] [address] [id number] [address] [place] [address], [place] [address] Mar, [facility] [address] [id number] [address] [place] [address], [place] [address] Mar, [facility] [address] [id number] [address] [place] [address], [place] [id number] 17 Mar, 2014 [facility] [address] [id number] [address] [place] [address], [place] [address] 17 Mar, 2014 [facility] [address] [id number] [address] [place] [address], [place] [address] 16 Mar, 2014 [facility] [address] [id number] [address] [place] [address], [place] [address] Feb, [facility] [address] [id number] [address] [place] [address], [place] [address] Feb, [facility] [address] [id number] [address] [place] [address], [place] [id number] Feb, [facility] [address] [id number] [address] [place] [address], [place] [address] Feb, [facility] [address] [id number] [address] [place] [address], [place] [address] Feb, [facility] [address] [id number] [address] [place] [address], [place] [address] Feb, [facility] [address] [id number] [address] [place] [id number] Feb, [facility] [address] [id number] [address] [place] [phone] Feb, [facility] [address] [id number] [address] [place] [id number] Feb, [facility] [address] [id number] [address] [place] [address], [place] [address] Jan, [facility] [address] [id number] [address] [place] [address], [place] [address] Jan, [facility] [address] [id number] [address] [place] [phone] Jan, [facility] [address] [id number] [address] [place] [id number] Jan, [facility] [address] [id number] [address] [place] [address], [place] [address] Jan, [facility] [address] [id number] [address] [place] [address], [place] [address] Jan, [facility] [address] [id number] [address] [place] [address], [place] [address] 17 Jan, 2014 [facility] [address] [id number] [address] [place] [address], [place] [id number] 17 Jan, 2014 [facility] [address] [id number] [address] [place] [address], [place] [id number] Jan, [facility] [address] [id number] [address] [place] [address], [place] [address] Jan, [facility] [address] [id number] [address] [place] [address], [place] [address] Dec, [facility] [address] [id number] [address] [place] [address], [place] [address] Dec, [facility] [address] [id number] [address] [place] [address], [place] [id number] 10 Dec, 2013 [facility] [address] [id number] [address] [place] [address], [place] [address] Dec, [facility] [address] [id number] [address] [place] [address], [place] [address] Nov, [facility] [address] [id number] [address] [place] [address], [place] [address] Nov, [facility] [address] [id number] [address] [place] [address], [place] [address] Nov, [facility] [address] [id number] [address] [place] [address], [place] [address] Nov, [facility] [address] [id number] [address] [place] [address], [place] [address] Nov, [facility] [address] [id number] [facility] [place] [address] Nov, [facility] [address] [id number] [facility] [place] [address] Nov, [facility] [address] [id number] [facility] [place] [address] Nov, [facility] [address] [id number] [facility] [place] [address] Nov, [facility] [address] [id number] [facility] [place] [address] Oct, [facility] [address] [id number] [facility] [place] [address] Oct, [facility] [address] [id number] [address] [place] [address], [place] [id number] Sep, [facility] [address] [id number] [address] [place] [address], [place] [address] Sep, [facility] [address] [id number] [address] [place] [address], [place] [address] Sep, [facility] [address] [id number] [address] [place] [address], [place] [address] Sep, [facility] [address] [id number] [address] [place] [address], [place] [address] Sep, [facility] [address] [id number] [address] [place] [address], [place] [address] Sep, [facility] [address] [id number] [address] [place] [address], [place] [address] Sep, [facility] [address] [id number] [address] [place] [address], [place] [id number] Sep, [facility] [address] [id number] [address] [place] [address], [place] [address] Sep, [facility] [address] [id number] [address] [place] [address], [place] [address] Sep, [facility] [address] [id number] [facility] [place] [address] Sep, [facility] [address] [id number] [facility] [place] [address] Sep, [facility] [address] [id number] [facility] [place] [address] Sep, [facility] [address] [id number] [address] [place] [address], [place] [address] Sep, [facility] [address] [id number] [facility] [place] [address] August, [facility] [address] [id number] [address] [place] [address], [place] [address] August, [facility] [address] [id number] [address] [place] [address], [place] [address] August, [facility] [address] [id number] [address] [place] [address], [place] [address] August, [facility] [address] [id number] [address] [place] [address], [place] [address] Jul, [facility] [address] [id number] [address] [place] [address], [place] [address] Jul, [facility] [address] [id number] [address] [place] [address], [place] [address] Jul, [facility] [address] [id number] [address] [place] [address], [place] [address] Jul, [facility] [address] [id number] [address] [place] [address], [place] [address] Jun, [facility] [address] [id number] [address] [place] [address], [place] [address] Jun, [facility] [address] [address] [id number] [address] [place] [address], [place] [address] May, [facility] [address] [id number] [address] [place] [address], [place] [address] May, [facility] [address] [id number] [address] [place] [address], [place] [address] May, [facility] [address] [id number] [address] [place] [address], [place] [address] May, [facility] [address] [id number] [address] [place] [address], [place] [address] May, [facility] [address] [id number] [address] [place] [address], [place] [address] May, [facility] [address] [id number] [address] [place] [address], [place] [address] May, [facility] [address] [id number] [address] [place] [address], [place] [address] May, [facility] [address] [id number] [address] [place] [address], [place] [address] May, [facility] [address] [id number] [address] [place] [address], [place] [address] Apr, [facility] [address] [id number] [address] [place] [address], [place] [address] Apr, [facility] [address] [id number] [address] [place] [address], [place] [address] Apr, [facility] [address] [id number] [address] [place] [address], [place] [address] Apr, [facility] [address] [id number] [address] [place] [address], [place] [address] Apr, [facility] [address] [id number] [address] [place] [address], [place] [address] Mar, [facility] [address] [id number] [address] [place] [address], [place] [address] Mar, [facility] [address] [id number] [address] [place] [address] [address] Feb, [facility] [address] [id number] [address] [place] [address], [place] [address] Feb, [facility] [address] [id number] [address] [place] [address], [place] [address] Feb, [facility] [address] [id number] [address] [place] [address], [place] [address] Feb, [facility] [address] [id number] [address] [place] [address], [place] [address] Feb, [facility] [address] [id number] [address] [place] [address], [place] [address] Feb, [facility] [address] [id number] [address] [place] [address], [place] [address] Feb, [facility] [address] [id number] [address] [place] [address], [place] [address] Feb, [facility] [address] [id number] [address] [place] [address], [place] [address] Feb, [facility] [address] [id number] [address] [place] [address], [place] [address] Jan, [facility] [address] [id number] [address] [place] [address], [place] [address] Jan, [facility] [address] [id number] [address] [place] [phone] Jan, [facility] [address] [id number] [address] [place] [id number] Jan, [facility] [address] [id number] [address] [place] [address], [place] [address] Jan, [facility] [address] [id number] [address] [place] [id number] Dec, [facility] [address] [id number] [address] [place] [address], [place] [address] Dec, [facility] [address] [id number] [address] [place] [address], [place] [address] Nov, [facility] [address] [id number] [address] [place] [address], [place] [address] Nov, [facility] [address] [id number] [address] [place] [address], [place] [address] Oct, [facility] [address] [id number] [address] [place] [address], [place] [address] Oct, [facility] [address] [id number] [address] [place] [address], [place] [address] Oct, [facility] [address] [id number] [address] [place] [address], [place] [address] Sep, [facility] [address] [id number] [address] [place] [address], [place] [address] Sep, [facility] [address] [id number] [address] [place] [address], [place] [address] Sep, [facility] [address] [id number] [address] [place] [address], [place] [address] August, [facility] [address] [id number] [address] [place] [address], [place] [address] August, [facility] [address] [id number] [address] [place] [address], [place] [address] August, [facility] [address] [id number] [address] [place] [address], [place] [address] August, [facility] [address] [id number] [address] [place] [address], [place] [address] Jul, [facility] [address] [id number] [address] [place] [address], [place] [address] Jun, [facility] [address] [id number] [address] [place] [address], [place] [address] Jun, [facility] [address] [id number] [address] [place] [address], [place] [address] Jun, [facility] [address] [id number] [address] [place] [address], [place] [address] May, [facility] [address] [id number] [address] [place] [address], [place] [address] May, [facility] [address] [id number] [address] [place] [address], [place] [address] May, [facility] [address] [id number] [address] [place] [address], [place] [address] May, [facility] [address] [id number] [address] [place] [address], [place] [address] Apr, [facility] [address] [id number] [address] [place] [address], [place] [address] Apr, [facility] [address] [id number] [address] [place] [address], [place] [address] Apr, [facility] [address] [id number] [address] [place] [address], [place] [address] Apr, [facility] [address] [id number] [address] [place] [address], [place] [address] Apr, [facility] [address] [id number] [address] [place] [address], [place] [address] Mar, [facility] [address] [id number] [address] [place] [address], [place] [address] Mar, [facility] [address] [id number] [address] [place] [address], [place] [address] Mar, [facility] [address] [id number] [address] [place] [address], [place] [address] Mar, [facility] [address] [id number] [address] [place] [address], [place] [id number] Mar, [facility] [address] [id number] [address] [place] [address], [place] [address] Mar, [facility] [address] [id number] [address] [place] [id number] Mar, [facility] [address] [id number] [address] [place] [address], [place] [address] Feb, [facility] [address] [id number] [address] [place] [id number] Feb, [facility] [address] [id number] [address] [place] [address], [place] [address] Feb, [facility] [address] [id number] [address] [place] [address], [place] [address] Feb, [facility] [address] [id number] [address] [place] [address], [place] [address] Feb, [facility] [address] [id number] [address] [place] [address], [place] [address] Feb, [facility] [address] [id number] [address] [place] [id number] Feb, [facility] [address] [id number] [address] [place] [address], [place] [address] Feb, [facility] [address] [id number] [address] [place] [address], [place] [address] Jan, [facility] [address] [id number] [address] [place] [id number] Jan, [facility] [address] [id number] [address] [place] [address], [place] [address] Jan, [facility] [address] [id number] [address] [place] [id number] Jan, [facility] [address] [id number] [address] [place] [address], [place] [address] 27 Dec, 2011 [facility] [address] [id number] [address] [place] [address], [place] [address] 25 Dec, 2011 [facility] [address] [id number] [address] [place] [id number] 18 Dec, 2011 [facility] [address] [id number] [address] [place] [address], [place] [address] 13 Dec, 2011 [facility] [address] [id number] [address] [place] [address], [place] [address] 11 Dec, 2011 [facility] [address] [id number] [address] [place] [address], [place] [address] Oct, [facility] [address] [id number] [address] [place] [address], [place] [address] Oct, [facility] [address] [id number] [address] [place] [address], [place] [address] Sep, [facility] [address] [id number] [address] [place] [address], [place] [address] Sep, [facility] [address] [id number] [address] [place] [address], [place] [address] August, [facility] [address] [id number] [address] [place] [address], [place] [address] August, [facility] [address] [id number] [address] [place] [address], [place] [address] Jul, [facility] [address] [id number] [address] [place] [address], [place] [address] Jun, [facility] [address] [id number] [address] [place] [address], [place] [address] Jun, [facility] [address] [id number] [address] [place] [address], [place] [address] Jun, [facility] [address] [id number] [address] [place] [address], [place] [address] Jun, [facility] [address] [id number] [address] [place] [address], [place] [address] Jun, [facility] [address] [id number] [address] [place] [address], [place] [address] May, [facility] [address] [id number] [address] [place] [address], [place] [address] May, [facility] [address] [id number] [address] [place] [address], [place] [address] May, [facility] [address] [id number] [address] [place] [address], [place] [address] 14 May, 2011 [facility] [address] [id number] [address] [place] [address], [place] [address] May, [facility] [address] [id number] [address] [place] [address], [place] [address] May, [facility] [address] [id number] [address] [place] [address], [place] [address] May, [facility] [address] [id number] [address] [place] [address], [place] [address] May, [facility] [address] [id number] [address] [place] [address] Apr, [facility] [address] [id number] [address] [place] [address], [place] [address] Mar, [facility] [address] [id number] [address] [place] [address], [place] [address] Mar, [facility] [address] [id number] [address] [place] [address], [place] [address] Mar, [facility] [address] [id number] [address] [place] [address], [place] [address] 15 Mar, 2011 [facility] [address] [id number] [address] [place] [id number] Mar, [facility] [address] [id number] [address] [place] [id number] 17 Jan, 2011 [facility] [address] [id number] [address] [place] [id number] Jan, [facility] [address] [id number] [address] [place] [id number] Jan, [facility] [address] [facility] [id number] [address] [place] [id number] August, [facility] [address] [facility] [id number] [address] [place] [id number] Mar, [facility] [address] [facility] [id number] [address] [place] [id number] Feb, [facility] [address] [facility] [id number] [address] [place] [id number] Jan, [facility] [address] [facility] [id number] [address] [place] [id number] Jan, IMMUNIZATIONS No Known Immunizations SOCIAL HISTORY [...] History surgeries Hospitalization History labor and delivery Hospitalization History Infection Hospitalization History Foreign object in gastrointe stinal tract (swallowed a keychain) Hospitalization History Falling
--- OUTSIDE RECORDS SUMMARY | 2019-08-20 15:58 | XMS REPORT ---
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 Name Role Phone KATIE HUDSON Unavailable PROBLEMS Type Condition ICD9-CM Code [id number] Code Onset Dates Condition S tatus SNOMED Code Problem CAD (coronary artery disease) I25.10 Active 87840535 Problem Osteoarthritis of knees, bilateral M17.0 Active 245896179 Problem Essential hypertension I10 Active 85797098 Problem Diabetes E11.9 Active 77082982 Problem Arthritis M19.90 Active 7215165 Problem Morbid obesity E66.01 Active 43012 6002 Problem Hyperlipemia E78.5 Active 5524503 4 ALLERGIES No Information ENCOUNTERS Encounter Location Date Diagnosis [facility] [address] [facility] [place] [id number] [address] [place] [id number] Jul, [facility] [address] [facility] [place] [id number] [address] [place] [id number] Jul, [facility] [address] [facility] [place] [id number] [address] [place] [address] Jul, [facility] [address] [facility] [place] [id number] [address] [place] [phone] 15 Jul, 2019 [facility] [address] [facility] [place] [id number] [address] [place] [id number] Jul, [facility] [address] [facility] [place] [id number] [address] [place] [id number] 16 Jun, 2019 [facility] [address] [facility] [place] [id number] [address] [place] [phone] 16 Jun, 2019 [facility] [address] [facility] [place] [id number] [address] [place] [id number] 12 Jun, 2019 Diabetes E11.9 ; Skin infect ion L08.9 and Essential hypertension I10 [facility] [address] [address] May, [facility] [address] [place] [id number] [address] [place] [phone] May, [facility] [address] [address] May, [facility] [address] [address] Apr, [facility] [address] [address] Mar, [facility] [address] [address] Mar, [facility] [address] [address] Feb, [facility] [address] [address] Nov, [facility] [address] [address] Nov, Diabetes E11.9 and Syncope, unspecified syncope type R55 [place] [address] [address] Nov, Osteoarthritis of knees, natan ateral M17.0 [facility] [address] [address] Oct, Diabetes E11.9 ; CAD (guarddao ry artery disease) I25.10 ; Essential hypertension I10 and Hyperlipemia E78.5 [facility] [address] [address] Sep, [facility] [address] [place] [id number] [place] [address] Jul, [facility] [address] [place] [address] Apr, [facility] [address] [address] Mar, Pustular lesion L08.9 and En counter for immunization Z23 [facility] [address] [place] [id number] [place] [address] Feb, [facility] [address] [address] Dec, [facility] [address] [place] [id number] [place] [address] Dec, [facility] [address] [address] Dec, Diabetes E11.9 ; Essential h ypertension I10 ; Arthritis M19.90 ; Urinary frequency R35.0 ; Routine adult health maintenance Z00.00 and BMI 45.0- 49.9, adult Z68.42 [facility] [address] [address] 18 Dec, 2017 [facility] [address] [address] Dec, [facility] [address] [address] Oct, [facility] [address] [address] Sep, Diabetes E11.9 [facility] [address] [place] [id number] [address] [place] [address] Sep, Diabetes E11.9 ; Hyperlipemi a E78.5 ; CAD (coronary artery disease) I25.10 ; Essential hypertension I10 and BMI 45.0-49.9, adult Z68.42 [facility] [address] [place] [id number] [address] [place] [address] Sep, [facility] [address] [address] August, [facility] [address] [facility] [place] [id number] [address] [place] [address] Jan, Dysuria R30.0 [facility] [address] [place] [id number] [address] [place] [phone] Jan, Dysuria R30.0 [facility] [address] [place] [id number] [address] [place] [address] Jan, Osteoarthritis of knees, natan ateral M17.0 [facility] [address] [place] [id number] [address] [place] [address] Nov, Dysuria R30.0 [place] [address] [place] [id number] [place] [address] Oct, Blood in urine R31.9 ; Dysur ia R30.0 ; Pharyngeal dysphagia R13.13 ; Acute cystitis with hematuria N30.01 ; CAD (coronary artery disease) I25.10 and Diabetes E11.9 [facility] [address] [place] [id number] [address] [place] [phone] Oct, [facility] [address] [place] [id number] [place] [address] Sep, Arthritis M19.90 ; Blood in urine R31.9 ; Diabetes E11.9 ; Acute cystitis with hematuria N30.01 and Pharyngoesophageal dysphagia R13.14 [facility] [address] [place] [id number] [address] [place] [phone] Sep, Osteoarthritis of knees, natan ateral M17.0 [facility] [address] [place] [id number] [address] [place] [id number] Sep, Osteoarthritis of knees, natan ateral M17.0 [facility] [address] [place] [id number] [address] [place] [address] August, Arthritis M19.90 [facility] [address] [place] [id number] [address] [place] [address] Jul, Arthritis M19.90 [facility] [address] [id number] [address] [place] [address] Jun, Arthritis M19.90 [facility] [address] [id number] [address] [place] [phone] Jun, [facility] [address] [id number] [address] [place] [phone] Jun, [facility] [address] [id number] [address] [place] [address] May, Diabetes E11.9 ; Dysuria R30 .0 and Arthritis M19.90 [facility] [address] [id number] [address] [place] [address] Apr, [facility] [address] [id number] [address] [place] [address] Apr, Arthritis M19.90 [facility] [address] [id number] [address] [place] [address] Mar, Arthritis M19.90 [facility] [address] [id number] [address] [place] [address] Feb, [facility] [address] [id number] [address] [place] [phone] Jan, [facility] [address] [id number] [address] [place] [address] Dec, Diabetes E11.9 and Arthritis M19.90 [facility] [address] [id number] [address] [place] [phone] Dec, [facility] [address] [id number] [address] [place] [address] Nov, Arthritis M19.90 [facility] [address] [id number] [address] [place] [address] Nov, [facility] [address] [id number] [address] [place] [id number] Oct, Arthritis M19.90 [facility] [address] [id number] [address] [place] [phone] Sep, Osteoarthritis of knees, natan ateral M17.0 [facility] [address] [id number] [address] [place] [phone] Sep, Osteoarthritis of knees, natan ateral M17.0 [facility] [address] [facility] [place] [id number] [address] [place] [address] August, Arthritis M19.90 [facility] [address] [facility] [place] [id number] [address] [place] [phone] August, [facility] [address] [facility] [place] [id number] [address] [place] [address] Jul, Hyperlipemia E78.5 [place] [address] [facility] [place] [id number] [address] [place] [address] Jul, Encounter for well woman exa m Z01.419 ; Morbid obesity E66.01 ; Encounter for screening for malignant neoplasm of cervix Z12.4 and Encounter for screening mammogram for breast cancer Z12.31 [place] [address] [facility] [place] [id number] [address] [place] [address] Jul, Arthritis M19.90 ; Diabetes E11.9 ; Blood in urine R31.9 and UTI (urinary tract infection) N39.0 [facility] [address] [facility] [place] [id number] [address] [place] [phone] Jul, [facility] [address] [facility] [place] [id number] [address] [place] [address] Jun, Arthritis M19.90 [facility] [address] [facility] [place] [id number] [address] [place] [address] May, Arthritis M19.90 [facility] [address] [facility] [place] [id number] [address] [place] [phone] May, [facility] [address] [id number] [address] [place] [id number] Apr, [facility] [address] [id number] [address] [place] [address] Apr, Arthritis M19.90 ; Diabetes E11.9 and Morbid obesity E66.01 [facility] [address] [id number] [address] [place] [phone] Apr, [facility] [address] [id number] [address] [place] [id number] Apr, Dyspareunia N94.1 [facility] [address] [id number] [address] [place] [phone] Apr, [facility] [address] [id number] [address] [place] [phone] Apr, [facility] [address] [id number] [address] [place] [phone] Apr, Osteoarthritis of knees, natan ateral M17.0 [facility] [address] [id number] [address] [place] [id number] Apr, Diabetes E11.9 and CAD (elysia nary artery disease) I25.10 [facility] [address] [id number] [address] [place] [phone] Mar, [facility] [address] [id number] [address] [place] [id number] Feb, [facility] [address] [id number] [address] [place] [phone] 30 Jan, 2015 [facility] [address] [id number] [address] [place] [id number] Jan, [facility] [address] [id number] [address] [place] [phone] Jan, [facility] [address] [id number] [address] [place] [phone] Jan, Osteoarthritis of knees, natan ateral M17.0 [facility] [address] [id number] [address] [place] [address], [place] [address] Dec, [facility] [address] [id number] [address] [place] [address], [place] [address] Dec, [facility] [address] [id number] [address] [place] [id number] Dec, [facility] [address] [id number] [address] [place] [address] Dec, Diabetes mellitus 250.00 and UTI (urinary tract infection) 599.0 [facility] [address] [id number] [address] [place] [address], [place] [address] Dec, [facility] [address] [id number] [address] [place] [phone] Nov, [facility] [address] [id number] [address] [place] [phone] Oct, [facility] [address] [id number] [address] [place] [phone] Oct, [facility] [address] [id number] [address] [place] [address], [place] [address] Oct, [facility] [address] [id number] [address] [place] [phone] Oct, [facility] [address] [id number] [address] [place] [address], [place] [address] Oct, [facility] [address] [id number] [address] [place] [phone] Sep, [facility] [address] [id number] [address] [place] [phone] August, [facility] [address] [id number] [address] [place] [phone] August, [facility] [address] [id number] [address] [place] [phone] August, [facility] [address] [id number] [address] [place] [address], [place] [address] 29 Jul, 2014 [facility] [address] [id number] [address] [place] [address], [place] [address] 14 Jul, 2014 [facility] [address] [id number] [address] [place] [address], [place] [address] Jul, [facility] [address] [id number] [address] [place] [address], [place] [address] Jun, [facility] [address] [id number] [address] [place] [address], [place] [address] 24 Jun, 2014 [facility] [address] [id number] [address] [place] [address], [place] [address] Jun, [facility] [address] [id number] [address] [place] [address], [place] [address] Jun, [facility] [address] [id number] [address] [place] [address], [place] [address] Jun, [facility] [address] [id number] [address] [place] [address], [place] [address] Jun, [facility] [address] [id number] [address] [place] [address], [place] [address] Jun, [facility] [address] [id number] [address] [place] [address], [place] [address] Jun, [facility] [address] [id number] [address] [place] [address], [place] [address] May, [facility] [address] [id number] [address] [place] [address], [place] [address] May, [facility] [address] [id number] [address] [place] [address], [place] [address] May, [facility] [address] [id number] [address] [place] [address], [place] [address] May, [facility] [address] [id number] [address] [place] [address], [place] [address] May, 2014 [facility] [address] [id number] [address] [place] [address], [place] [address] May, 2014 [facility] [address] [id number] [address] [place] [address], [place] [address] May, 2014 [facility] [address] [id number] [address] [place] [address], [place] [address] May, 2014 [facility] [address] [id number] [address] [place] [address], [place] [address] May, 2014 [facility] [address] [id number] [address] [place] [address], [place] [address] May, 2014 [facility] [address] [id number] [address] [place] [address], [place] [address] May, 2014 [facility] [address] [id number] [address] [place] [address], [place] [address] May, 2014 [facility] [address] [id number] [address] [place] [address], [place] [address] Apr, [facility] [address] [id number] [address] [place] [address], [place] [address] Apr, [facility] [address] [id number] [address] [place] [address], [place] [address] Mar, [facility] [address] [id number] [address] [place] [address], [place] [address] Mar, [facility] [address] [id number] [address] [place] [address], [place] [address] Mar, [facility] [address] [id number] [address] [place] [address], [place] [address] Mar, [facility] [address] [id number] [address] [place] [address], [place] [address] Mar, [facility] [address] [id number] [address] [place] [address], [place] [address] Mar, [facility] [address] [id number] [address] [place] [address], [place] [address] Feb, [facility] [address] [id number] [address] [place] [address], [place] [address] Feb, [facility] [address] [id number] [address] [place] [address], [place] [address] Feb, [facility] [address] [id number] [address] [place] [address], [place] [address] Feb, [facility] [address] [id number] [address] [place] [address], [place] [address] Feb, [facility] [address] [id number] [address] [place] [address], [place] [address] Feb, [facility] [address] [id number] [address] [place] [address], [place] [address] Feb, [facility] [address] [id number] [address] [place] [address], [place] [address] Feb, [facility] [address] [id number] [address] [place] [address], [place] [address] Feb, [facility] [address] [id number] [address] [place] [address] Jan, [facility] [address] [id number] [address] [place] [address] Jan, [facility] [address] [id number] [address] [place] [address] Jan, [facility] [address] [id number] [address] [place] [address], [place] [address] Jan, [facility] [address] [id number] [address] [place] [address], [place] [address] Jan, [facility] [address] [id number] [address] [place] [id number] Jan, [facility] [address] [id number] [address] [place] [id number] 17 Jan, 2014 [facility] [address] [id number] [address] [place] [address], [place] [address] 17 Jan, 2014 [facility] [address] [id number] [address] [place] [address], [place] [address] Jan, [facility] [address] [id number] [address] [place] [address], [place] [address] Jan, [facility] [address] [id number] [address] [place] [address], [place] [address] 19 Dec, 2013 [facility] [address] [id number] [address] [place] [address], [place] [address] 19 Dec, 2013 [facility] [address] [id number] [address] [place] [address], [place] [address] Dec, [facility] [address] [id number] [address] [place] [address], [place] [address] Dec, [facility] [address] [id number] [address] [place] [address], [place] [address] Nov, [facility] [address] [id number] [address] [place] [address], [place] [address] Nov, [facility] [address] [id number] [address] [place] [address], [place] [address] Nov, [facility] [address] [id number] [address] [place] [address], [place] [address] Nov, [facility] [address] [id number] [address] [place] [address], [place] [address] Nov, [facility] [address] [id number] [address] [place] [address], [place] [address] Nov, [facility] [address] [id number] [address] [place] [address], [place] [address] Nov, [facility] [address] [id number] [address] [place] [address], [place] [address] Nov, [facility] [address] [id number] [facility] [place] [address] Nov, [facility] [address] [id number] [facility] [place] [address] Oct, [facility] [address] [id number] [facility] [place] [address] Oct, [facility] [address] [id number] [facility] [place] [address] Sep, [facility] [address] [id number] [facility] [place] [address] Sep, [facility] [address] [id number] [facility] [place] [address] Sep, [facility] [address] [id number] [address] [place] [address], [place] [address] Sep, [facility] [address] [id number] [address] [place] [address], [place] [address] Sep, [facility] [address] [id number] [address] [place] [address], [place] [address] Sep, [facility] [address] [id number] [address] [place] [address], [place] [address] Sep, [facility] [address] [id number] [address] [place] [address], [place] [address] Sep, [facility] [address] [id number] [address] [place] [address], [place] [address] Sep, [facility] [address] [id number] [address] [place] [address], [place] [address] Sep, [facility] [address] [id number] [address] [place] [address], [place] [address] Sep, [facility] [address] [id number] [address] [place] [address], [place] [address] Sep, [facility] [address] [id number] [address] [place] [address], [place] [address] Sep, [facility] [address] [id number] [address] [place] [address], [place] [address] Sep, [facility] [address] [id number] [address] [place] [address], [place] [address] August, [facility] [address] [id number] [address] [place] [address], [place] [address] August, [facility] [address] [id number] [address] [place] [address], [place] [address] August, [facility] [address] [id number] [address] [place] [address], [place] [address] August, [facility] [facility] [address] [id number] [address] [place] [address], [place] [address] Jul, [facility] [address] [id number] [address] [place] [address], [place] [address] Jul, [facility] [address] [id number] [address] [place] [address], [place] [address] Jul, [facility] [address] [id number] [address] [place] [address], [place] [address] Jul, [facility] [address] [id number] [address] [place] [address], [place] [address] Jun, [facility] [address] [id number] [address] [place] [address], [place] [address] Jun, [facility] [address] [id number] [address] [place] [address], [place] [address] May, [facility] [address] [id number] [address] [place] [address], [place] [address] May, [facility] [address] [id number] [address] [place] [address], [place] [address] May, [facility] [address] [id number] [address] [place] [address], [place] [address] May, [facility] [address] [id number] [address] [place] [address], [place] [address] May, [facility] [address] [id number] [address] [place] [address], [place] [address] May, [facility] [address] [id number] [address] [place] [address], [place] [address] May, [facility] [address] [id number] [address] [place] [address], [place] [address] May, [facility] [address] [id number] [address] [place] [address], [place] [address] May, [facility] [address] [id number] [address] [place] [address], [place] [address] Apr, [facility] [address] [id number] [address] [place] [address], [place] [address] Apr, [facility] [address] [id number] [address] [place] [address], [place] [address] Apr, [facility] [address] [id number] [address] [place] [address], [place] [address] Apr, [facility] [address] [id number] [address] [place] [address], [place] [address] Apr, [facility] [address] [id number] [address] [place] [address], [place] [address] Mar, [facility] [address] [id number] [address] [place] [address], [place] [address] Mar, [facility] [address] [id number] [address] [place] [address], [place] [address] Feb, [facility] [address] [id number] [address] [place] [address], [place] [address] Feb, [facility] [address] [id number] [address] [place] [address], [place] [address] Feb, [facility] [address] [id number] [address] [place] [address] [address] Feb, [facility] [address] [id number] [address] [place] [address], [place] [address] Feb, [facility] [address] [id number] [address] [place] [address], [place] [address] Feb, [facility] [address] [id number] [address] [place] [address], [place] [address] Feb, [facility] [address] [id number] [address] [place] [address], [place] [address] Feb, [facility] [address] [id number] [address] [place] [address], [place] [address] Feb, [facility] [address] [id number] [address] [place] [address], [place] [address] Jan, [facility] [address] [id number] [address] [place] [address], [place] [address] Jan, [facility] [address] [id number] [address] [place] [address], [place] [address] Jan, [facility] [address] [id number] [address] [place] [address], [place] [address] Jan, [facility] [address] [id number] [address] [place] [address], [place] [address] Jan, [facility] [address] [id number] [address] [place] [address], [place] [address] Dec, [facility] [address] [id number] [address] [place] [address] Dec, [facility] [address] [id number] [address] [place] [address], [place] [address] Nov, [facility] [address] [id number] [address] [place] [address], [place] [address] Nov, [facility] [address] [id number] [address] [place] [address], [place] [address] Oct, [facility] [address] [id number] [address] [place] [address], [place] [address] Oct, [facility] [address] [id number] [address] [place] [address], [place] [address] Oct, [facility] [address] [id number] [address] [place] [address], [place] [address] Sep, [facility] [address] [id number] [address] [place] [address], [place] [address] Sep, [facility] [address] [id number] [address] [place] [address], [place] [address] Sep, [facility] [address] [id number] [address] [place] [address], [place] [address] August, [facility] [address] [id number] [address] [place] [address], [place] [address] August, [facility] [address] [id number] [address] [place] [address], [place] [address] August, [facility] [address] [id number] [address] [place] [address], [place] [address] August, [facility] [address] [id number] [address] [place] [address], [place] [address] Jul, [facility] [address] [id number] [address] [place] [address], [place] [address] Jun, [facility] [address] [id number] [address] [place] [address], [place] [address] Jun, [facility] [address] [id number] [address] [place] [address], [place] [address] Jun, [facility] [address] [id number] [address] [place] [address], [place] [address] May, [facility] [address] [id number] [address] [place] [address], [place] [address] May, [facility] [address] [id number] [address] [place] [address], [place] [address] May, [facility] [address] [id number] [address] [place] [address], [place] [address] May, [facility] [address] [id number] [address] [place] [address], [place] [address] Apr, [facility] [address] [id number] [address] [place] [address], [place] [address] Apr, [facility] [address] [id number] [address] [place] [address], [place] [address] Apr, [facility] [address] [id number] [address] [place] [address], [place] [address] Apr, [facility] [address] [id number] [address] [place] [address], [place] [address] Apr, [facility] [address] [id number] [address] [place] [address], [place] [address] Mar, [facility] [address] [id number] [address] [place] [address], [place] [address] Mar, [facility] [address] [id number] [address] [place] [address], [place] [address] Mar, [facility] [address] [id number] [address] [place] [address], [place] [address] Mar, [facility] [address] [id number] [address] [place] [address], [place] [address] Mar, [facility] [address] [id number] [address] [place] [address] Mar, [facility] [address] [id number] [address] [place] [address], [place] [address] Mar, [facility] [address] [id number] [address] [place] [address], [place] [address] Feb, [facility] [address] [id number] [address] [place] [address], [place] [address] Feb, [facility] [address] [id number] [address] [place] [address] Feb, [facility] [address] [id number] [address] [place] [address], [place] [address] Feb, [facility] [address] [id number] [address] [place] [address] Feb, [facility] [address] [id number] [address] [place] [address], [place] [address] Feb, [facility] [address] [id number] [address] [place] [address], [place] [address] Feb, [facility] [address] [id number] [address] [place] [address], [place] [address] Feb, [facility] [address] [id number] [address] [place] [address], [place] [address] Jan, [facility] [address] [id number] [address] [place] [address] Jan, [facility] [address] [id number] [address] [place] [address], [place] [address] Jan, [facility] [address] [id number] [address] [place] [address], [place] [address] Jan, [facility] [address] [id number] [address] [place] [address], [place] [address] 27 Dec, 2011 [facility] [address] [id number] [address] [place] [address], [place] [address] 25 Dec, 2011 [facility] [address] [id number] [address] [place] [address] 18 Dec, 2011 [facility] [address] [id number] [address] [place] [address], [place] [address] 13 Dec, 2011 [facility] [address] [id number] [address] [place] [address], [place] [address] 11 Dec, 2011 [facility] [address] [id number] [address] [place] [address], [place] [address] Oct, [facility] [address] [id number] [address] [place] [address], [place] [address] Oct, [facility] [address] [id number] [address] [place] [address], [place] [address] Sep, [facility] [address] [id number] [address] [place] [address], [place] [address] Sep, [facility] [address] [id number] [address] [place] [address], [place] [address] August, [facility] [address] [id number] [address] [place] [address], [place] [address] August, [facility] [address] [id number] [address] [place] [address], [place] [address] Jul, [facility] [address] [id number] [address] [place] [address], [place] [address] Jun, [facility] [address] [id number] [address] [place] [address], [place] [address] Jun, [facility] [address] [id number] [address] [place] [address], [place] [address] Jun, [facility] [address] [id number] [address] [place] [address], [place] [address] Jun, [facility] [address] [id number] [address] [place] [address], [place] [address] Jun, [facility] [address] [id number] [address] [place] [address], [place] [address] 24 May, 2011 [facility] [address] [id number] [address] [place] [address], [place] [address] May, [facility] [address] [id number] [address] [place] [address], [place] [address] May, [facility] [address] [id number] [address] [place] [address], [place] [address] 14 May, 2011 [facility] [address] [id number] [address] [place] [address], [place] [address] 13 May, 2011 [facility] [address] [id number] [address] [place] [address], [place] [address] May, [facility] [address] [id number] [address] [place] [address], [place] [address] 02 May, 2011 [facility] [address] [id number] [address] [place] [address], [place] [address] May, [facility] [address] [id number] [address] [place] [address], [place] [address] Apr, [facility] [address] [id number] [address] [place] [address], [place] [address] Mar, [facility] [address] [id number] [address] [place] [address], [place] [address] Mar, [facility] [address] [id number] [address] [place] [address], [place] [address] Mar, [facility] [address] [id number] [address] [place] [address], [place] [address] Mar, [facility] [address] [id number] [address] [place] [address], [place] [address] Mar, [facility] [address] [id number] [address] [place] [address], [place] [address] Jan, [facility] [address] [id number] [address] [place] [address], [place] [address] Jan, [facility] [address] [id number] [address] [place] [address] Jan, [facility] [address] [id number] [address] [place] [address], [place] [address] August, [facility] [address] [id number] [address] [place] [address], [place] [address] Mar, [facility] [address] [id number] [address] [place] [address] Feb, [facility] [address] [facility] [place] [id number] [address] [place] [address] Jan, [facility] [address] [facility] [place] [id number] [address] [place] [address] Jan, IMMUNIZATIONS No Known Immunizations SOCIAL HISTORY [...]
--- OUTSIDE RECORDS SUMMARY | 2019-08-20 15:58 | XMS REPORT ---
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 Role Phone KATIE HUDSON Unavailable PROBLEMS Type Condition ICD9-CM Code [id number] Code Onset Dates Condition S tatus SNOMED Code Problem CAD (coronary artery disease) I25.10 Active 11415843 Problem Osteoarthritis of knees, bilateral M17.0 Active 437406096 Problem Essential hypertension I10 Active 02725978 Problem Diabetes E11.9 Active 50054251 Problem Arthritis M19.90 Active 1032177 Problem Morbid obesity E66.01 Active 42529 6002 Problem Hyperlipemia E78.5 Active 8972709 4 ALLERGIES No Information ENCOUNTERS Encounter Location Date Diagnosis [facility] [address] [facility] [id number] [address] [place] [address] Jul, [facility] [address] [facility] [id number] [address] [place] [address] Jul, [facility] [address] [facility] [id number] [address] [place] [address] Jul, [facility] [address] [facility] [id number] [address] [place] [address] 15 Jul, 2019 [facility] [address] [facility] [id number] [address] [place] [address] Jul, [facility] [address] [facility] [id number] [address] [place] [address] 16 Jun, 2019 [facility] [address] [facility] [id number] [address] [place] [address] 16 Jun, 2019 [facility] [address] [facility] [id number] [address] [place] [address] 12 Jun, 2019 Diabetes E11.9 ; Skin infect ion L08.9 and Essential hypertension I10 [facility] [address] [address] May, [facility] [address] [place] [id number] [address] [place] [address] May, [facility] [address] [address] May, [facility] [address] [address] Apr, [facility] [address] [address] Mar, [facility] [address] [address] Mar, [facility] [address] [address] Feb, [facility] [address] [address] Nov, [facility] [address] [address] Nov, Diabetes E11.9 and Syncope, unspecified syncope type R55 [place] [address] [address] Nov, Osteoarthritis of knees, natan ateral M17.0 [facility] [address] [address] Oct, Diabetes E11.9 ; CAD (guardado ry artery disease) I25.10 ; Essential hypertension I10 and Hyperlipemia E78.5 [facility] [address] [address] Sep, [facility] [address] [place] [id number] [place] [address] Jul, [facility] [address] [place] [address] Apr, [facility] [address] [address] Mar, Pustular lesion L08.9 and En counter for immunization Z23 [facility] [address] [place] [id number] [place] [address] Feb, [facility] [address] [address] Dec, [facility] [address] [place] [id number] [place] [address] Dec, [facility] [address] [address] Dec, Diabetes E11.9 ; Essential h ypertension I10 ; Arthritis M19.90 ; Urinary frequency R35.0 ; Routine adult health maintenance Z00.00 and BMI 45.0- 49.9, adult Z68.42 [facility] [address] [address] 18 Dec, 2017 [facility] [address] [address] Dec, [facility] [address] [address] Oct, [facility] [address] [address] Sep, Diabetes E11.9 [facility] [address] [place] [id number] [address] [place] [address] Sep, Diabetes E11.9 ; Hyperlipemi a E78.5 ; CAD (coronary artery disease) I25.10 ; Essential hypertension I10 and BMI 45.0-49.9, adult Z68.42 [facility] [address] [place] [id number] [address] [place] [address] Sep, [facility] [address] [address] August, [facility] [address] [facility] [id number] [address] [place] [address] Jan, Dysuria R30.0 [facility] [address] [place] [id number] [address] [place] [address] Jan, Dysuria R30.0 [facility] [address] [place] [id number] [address] [place] [address] Jan, Osteoarthritis of knees, natan ateral M17.0 [facility] [address] [place] [id number] [address] [place] [address] Nov, Dysuria R30.0 [place] [address] [place] [id number] [place] [address] Oct, Blood in urine R31.9 ; Dysur ia R30.0 ; Pharyngeal dysphagia R13.13 ; Acute cystitis with hematuria N30.01 ; CAD (coronary artery disease) I25.10 and Diabetes E11.9 [facility] [address] [place] [id number] [address] [place] [address] Oct, [facility] [address] [place] [id number] [place] [address] Sep, Arthritis M19.90 ; Blood in urine R31.9 ; Diabetes E11.9 ; Acute cystitis with hematuria N30.01 and Pharyngoesophageal dysphagia R13.14 [facility] [address] [place] [id number] [address] [place] [address] Sep, Osteoarthritis of knees, natan ateral M17.0 [facility] [address] [place] [id number] [address] [place] [address] Sep, Osteoarthritis of knees, natan ateral M17.0 [facility] [address] [place] [id number] [address] [place] [address] August, Arthritis M19.90 [facility] [address] [place] [id number] [address] [place] [address] Jul, Arthritis M19.90 [facility] [address] [id number] [address] [place] [address] Jun, Arthritis M19.90 [facility] [address] [id number] [address] [place] [address] Jun, [facility] [address] [id number] [address] [place] [address] Jun, [facility] [address] [id number] [address] [place] [address] May, Diabetes E11.9 ; Dysuria R30 .0 and Arthritis M19.90 [facility] [address] [id number] [address] [place] [address] Apr, [facility] [address] [id number] [address] [place] [address] Apr, Arthritis M19.90 [facility] [address] [id number] [address] [place] [address] Mar, Arthritis M19.90 [facility] [address] [id number] [address] [place] [address] Feb, [facility] [address] [id number] [address] [place] [address] Jan, [facility] [address] [id number] [address] [place] [address] Dec, Diabetes E11.9 and Arthritis M19.90 [facility] [address] [id number] [address] [place] [address] Dec, [facility] [address] [id number] [address] [place] [address] Nov, Arthritis M19.90 [facility] [address] [id number] [address] [place] [address] Nov, [facility] [address] [id number] [address] [place] [address] Oct, Arthritis M19.90 [facility] [address] [id number] [address] [place] [address] Sep, Osteoarthritis of knees, natan ateral M17.0 [facility] [address] [id number] [address] [place] [address] Sep, Osteoarthritis of knees, natan ateral M17.0 [facility] [address] [facility] [id number] [address] [place] [address] August, Arthritis M19.90 [facility] [address] [facility] [id number] [address] [place] [address] August, [facility] [address] [facility] [id number] [address] [place] [address] Jul, Hyperlipemia E78.5 [place] [address] [facility] [id number] [address] [place] [address] Jul, Encounter for well woman exa m Z01.419 ; Morbid obesity E66.01 ; Encounter for screening for malignant neoplasm of cervix Z12.4 and Encounter for screening mammogram for breast cancer Z12.31 [place] [address] [facility] [id number] [address] [place] [address] Jul, Arthritis M19.90 ; Diabetes E11.9 ; Blood in urine R31.9 and UTI (urinary tract infection) N39.0 [facility] [address] [facility] [id number] [address] [place] [address] Jul, [facility] [address] [facility] [id number] [address] [place] [address] Jun, Arthritis M19.90 [facility] [address] [facility] [id number] [address] [place] [address] May, Arthritis M19.90 [facility] [address] [facility] [id number] [address] [place] [address] May, [facility] [address] [id number] [address] [place] [address] Apr, [facility] [address] [id number] [address] [place] [address] Apr, Arthritis M19.90 ; Diabetes E11.9 and Morbid obesity E66.01 [facility] [address] [id number] [address] [place] [address] Apr, [facility] [address] [id number] [address] [place] [address] Apr, Dyspareunia N94.1 [facility] [address] [id number] [address] [place] [address] Apr, [facility] [address] [id number] [address] [place] [address] Apr, [facility] [address] [id number] [address] [place] [address] Apr, Osteoarthritis of knees, natan ateral M17.0 [facility] [address] [id number] [address] [place] [address] Apr, Diabetes E11.9 and CAD (elysia nary artery disease) I25.10 [facility] [address] [id number] [address] [place] [address] Mar, [facility] [address] [id number] [address] [place] [address] Feb, [facility] [address] [id number] [address] [place] [address] 30 Jan, 2015 [facility] [address] [id number] [address] [place] [address] Jan, [facility] [address] [id number] [address] [place] [address] Jan, [facility] [address] [id number] [address] [place] [address] Jan, Osteoarthritis of knees, natan ateral M17.0 [facility] [address] [id number] [address] [place] [address], [place] [address] Dec, [facility] [address] [id number] [address] [place] [address], [place] [address] Dec, [facility] [address] [id number] [address] [place] [address] Dec, [facility] [address] [id number] [address] [place] [address] Dec, Diabetes mellitus 250.00 and UTI (urinary tract infection) 599.0 [facility] [address] [id number] [address] [place] [address], [place] [address] Dec, [facility] [address] [id number] [address] [place] [address] Nov, [facility] [address] [id number] [address] [place] [address] Oct, [facility] [address] [id number] [address] [place] [address] Oct, [facility] [address] [id number] [address] [place] [address], [place] [address] Oct, [facility] [address] [id number] [address] [place] [address] Oct, [facility] [address] [id number] [address] [place] [address], [place] [address] Oct, [facility] [address] [id number] [address] [place] [address] Sep, [facility] [address] [id number] [address] [place] [address] August, [facility] [address] [id number] [address] [place] [address] August, [facility] [address] [id number] [address] [place] [address] August, [facility] [address] [id number] [address] [place] [address], [place] [address] 29 Jul, 2014 [facility] [address] [id number] [address] [place] [address], [place] [address] 14 Jul, 2014 [facility] [address] [id number] [address] [place] [address], [place] [address] Jul, [facility] [address] [id number] [address] [place] [address], [place] [address] Jun, [facility] [address] [id number] [address] [place] [address], [place] [address] 24 Jun, 2014 [facility] [address] [id number] [address] [place] [address], [place] [address] Jun, [facility] [address] [id number] [address] [place] [address], [place] [address] Jun, [facility] [address] [id number] [address] [place] [address], [place] [address] Jun, [facility] [address] [id number] [address] [place] [address], [place] [address] Jun, [facility] [address] [id number] [address] [place] [address], [place] [address] Jun, [facility] [address] [id number] [address] [place] [address], [place] [address] Jun, [facility] [address] [id number] [address] [place] [address], [place] [address] May, [facility] [address] [id number] [address] [place] [address], [place] [address] May, [facility] [address] [id number] [address] [place] [address], [place] [address] May, [facility] [address] [id number] [address] [place] [address], [place] [address] May, [facility] [address] [id number] [address] [place] [address], [place] [address] May, 2014 [facility] [address] [id number] [address] [place] [address], [place] [address] May, 2014 [facility] [address] [id number] [address] [place] [address], [place] [address] May, 2014 [facility] [address] [id number] [address] [place] [address], [place] [address] May, 2014 [facility] [address] [id number] [address] [place] [address], [place] [address] May, 2014 [facility] [address] [id number] [address] [place] [address], [place] [address] May, 2014 [facility] [address] [id number] [address] [place] [address], [place] [address] May, 2014 [facility] [address] [id number] [address] [place] [address], [place] [address] May, 2014 [facility] [address] [id number] [address] [place] [address], [place] [address] Apr, [facility] [address] [id number] [address] [place] [address], [place] [address] Apr, [facility] [address] [id number] [address] [place] [address], [place] [address] Mar, [facility] [address] [id number] [address] [place] [address], [place] [address] Mar, [facility] [address] [id number] [address] [place] [address], [place] [address] Mar, [facility] [address] [id number] [address] [place] [address], [place] [address] Mar, [facility] [address] [id number] [address] [place] [address], [place] [address] Mar, [facility] [address] [id number] [address] [place] [address], [place] [address] Mar, [facility] [address] [id number] [address] [place] [address], [place] [address] Feb, [facility] [address] [id number] [address] [place] [address], [place] [address] Feb, [facility] [address] [id number] [address] [place] [address], [place] [address] Feb, [facility] [address] [id number] [address] [place] [address], [place] [address] Feb, [facility] [address] [id number] [address] [place] [address], [place] [address] Feb, [facility] [address] [id number] [address] [place] [address], [place] [address] Feb, [facility] [address] [id number] [address] [place] [address], [place] [address] Feb, [facility] [address] [id number] [address] [place] [address], [place] [address] Feb, [facility] [address] [id number] [address] [place] [address], [place] [address] Feb, [facility] [address] [id number] [address] [place] [address] Jan, [facility] [address] [id number] [address] [place] [address] Jan, [facility] [address] [id number] [address] [place] [address] Jan, [facility] [address] [id number] [address] [place] [address], [place] [address] Jan, [facility] [address] [id number] [address] [place] [address], [place] [address] Jan, [facility] [address] [id number] [address] [place] [address] Jan, [facility] [address] [id number] [address] [place] [address] 17 Jan, 2014 [facility] [address] [id number] [address] [place] [address], [place] [address] 17 Jan, 2014 [facility] [address] [id number] [address] [place] [address], [place] [address] Jan, [facility] [address] [id number] [address] [place] [address], [place] [address] Jan, [facility] [address] [id number] [address] [place] [address], [place] [address] 19 Dec, 2013 [facility] [address] [id number] [address] [place] [address], [place] [address] 19 Dec, 2013 [facility] [address] [id number] [address] [place] [address], [place] [address] Dec, [facility] [address] [id number] [address] [place] [address], [place] [address] Dec, [facility] [address] [id number] [address] [place] [address], [place] [address] Nov, [facility] [address] [id number] [address] [place] [address], [place] [address] Nov, [facility] [address] [id number] [address] [place] [address], [place] [address] Nov, [facility] [address] [id number] [address] [place] [address], [place] [address] Nov, [facility] [address] [id number] [address] [place] [address], [place] [address] Nov, [facility] [address] [id number] [address] [place] [address], [place] [address] Nov, [facility] [address] [id number] [address] [place] [address], [place] [address] Nov, [facility] [address] [id number] [address] [place] [address], [place] [address] Nov, [facility] [address] [id number] [facility] [address] Nov, [facility] [address] [id number] [facility] [address] Oct, [facility] [address] [id number] [facility] [address] Oct, [facility] [address] [id number] [facility] [address] Sep, [facility] [address] [id number] [facility] [address] Sep, [facility] [address] [id number] [facility] [address] Sep, [facility] [address] [id number] [address] [place] [address], [place] [address] Sep, [facility] [address] [id number] [address] [place] [address], [place] [address] Sep, [facility] [address] [id number] [address] [place] [address], [place] [address] Sep, [facility] [address] [id number] [address] [place] [address], [place] [address] Sep, [facility] [address] [id number] [address] [place] [address], [place] [address] Sep, [facility] [address] [id number] [address] [place] [address], [place] [address] Sep, [facility] [address] [id number] [address] [place] [address], [place] [address] Sep, [facility] [address] [id number] [address] [place] [address], [place] [address] Sep, [facility] [address] [id number] [address] [place] [address], [place] [address] Sep, [facility] [address] [id number] [address] [place] [address], [place] [address] Sep, [facility] [address] [id number] [address] [place] [address], [place] [address] Sep, [facility] [address] [id number] [address] [place] [address], [place] [address] August, [facility] [address] [id number] [address] [place] [address], [place] [address] August, [facility] [address] [id number] [address] [place] [address], [place] [address] August, [facility] [address] [id number] [address] [place] [address], [place] [address] August, [facility] [address] [id number] [address] [place] [address], [place] [address] Jul, [facility] [address] [id number] [address] [place] [address], [place] [address] Jul, [facility] [address] [id number] [address] [place] [address], [place] [address] Jul, [facility] [address] [id number] [address] [place] [address], [place] [address] Jul, [facility] [address] [id number] [address] [place] [address], [place] [address] Jun, [facility] [address] [id number] [address] [place] [address], [place] [address] Jun, [facility] [address] [id number] [address] [place] [address], [place] [address] May, [facility] [address] [id number] [address] [place] [address], [place] [address] May, [facility] [address] [id number] [address] [place] [address], [place] [address] May, [facility] [address] [id number] [address] [place] [address], [place] [address] May, [facility] [address] [id number] [address] [place] [address], [place] [address] May, [facility] [address] [id number] [address] [place] [address], [place] [address] May, [facility] [address] [id number] [address] [place] [address], [place] [address] May, [facility] [address] [id number] [address] [place] [address], [place] [address] May, [facility] [address] [id number] [address] [place] [address], [place] [address] May, [facility] [address] [id number] [address] [place] [address], [place] [address] Apr, [facility] [address] [id number] [address] [place] [address], [place] [address] Apr, [facility] [address] [id number] [address] [place] [address], [place] [address] Apr, [facility] [address] [id number] [address] [place] [address], [place] [address] Apr, [facility] [address] [id number] [address] [place] [address], [place] [address] Apr, [facility] [address] [id number] [address] [place] [address], [place] [address] Mar, [facility] [address] [id number] [address] [place] [address], [place] [address] Mar, [facility] [address] [id number] [address] [place] [address], [place] [address] Feb, [facility] [address] [id number] [address] [place] [address], [place] [address] Feb, [facility] [address] [id number] [address] [place] [address], [place] [address] Feb, [facility] [address] [id number] [address] [place], [place] [address] [address] Feb, [facility] [address] [id number] [address] [place] [address], [place] [address] Feb, [facility] [address] [id number] [address] [place] [address], [place] [address] Feb, [facility] [address] [id number] [address] [place] [address], [place] [address] Feb, [facility] [address] [id number] [address] [place] [address], [place] [address] Feb, [facility] [address] [id number] [address] [place] [address], [place] [address] Feb, [facility] [address] [id number] [address] [place] [address], [place] [address] Jan, [facility] [address] [id number] [address] [place] [address], [place] [address] Jan, [facility] [address] [id number] [address] [place] [address], [place] [address] Jan, [facility] [address] [id number] [address] [place] [address], [place] [address] Jan, [facility] [address] [id number] [address] [place] [address], [place] [address] Jan, [facility] [address] [id number] [address] [place] [address], [place] [address] Dec, [facility] [address] [id number] [address] [place] [address] Dec, [facility] [address] [id number] [address] [place] [address], [place] [address] Nov, [facility] [address] [id number] [address] [place] [address], [place] [address] Nov, [facility] [address] [id number] [address] [place] [address], [place] [address] Oct, [facility] [address] [id number] [address] [place] [address], [place] [address] Oct, [facility] [address] [id number] [address] [place] [address], [place] [address] Oct, [facility] [address] [id number] [address] [place] [address], [place] [address] Sep, [facility] [address] [id number] [address] [place] [address], [place] [address] Sep, [facility] [address] [id number] [address] [place] [address], [place] [address] Sep, [facility] [address] [id number] [address] [place] [address], [place] [address] August, [facility] [address] [id number] [address] [place] [address], [place] [address] August, [facility] [address] [id number] [address] [place] [address], [place] [address] August, [facility] [address] [id number] [address] [place] [address], [place] [address] August, [facility] [address] [id number] [address] [place] [address], [place] [address] Jul, [facility] [address] [id number] [address] [place] [address], [place] [address] Jun, [facility] [address] [id number] [address] [place] [address], [place] [address] Jun, [facility] [address] [id number] [address] [place] [address], [place] [address] Jun, [facility] [address] [id number] [address] [place] [address], [place] [address] May, [facility] [address] [id number] [address] [place] [address], [place] [address] May, [facility] [address] [id number] [address] [place] [address], [place] [address] May, [facility] [address] [id number] [address] [place] [address], [place] [address] May, [facility] [address] [id number] [address] [place] [address], [place] [address] Apr, [facility] [address] [id number] [address] [place] [address], [place] [address] Apr, [facility] [address] [id number] [address] [place] [address], [place] [address] Apr, [facility] [address] [id number] [address] [place] [address], [place] [address] Apr, [facility] [address] [id number] [address] [place] [address], [place] [address] Apr, [facility] [address] [id number] [address] [place] [address], [place] [address] Mar, [facility] [address] [id number] [address] [place] [address], [place] [address] Mar, [facility] [address] [id number] [address] [place] [address], [place] [address] Mar, [facility] [address] [id number] [address] [place] [address], [place] [address] Mar, [facility] [address] [id number] [address] [place] [address], [place] [address] Mar, [facility] [address] [id number] [address] [place] [address] Mar, [facility] [address] [id number] [address] [place] [address], [place] [address] Mar, [facility] [address] [id number] [address] [place] [address], [place] [address] Feb, [facility] [address] [id number] [address] [place] [address], [place] [address] Feb, [facility] [address] [id number] [address] [place] [address] Feb, [facility] [address] [id number] [address] [place] [address], [place] [address] Feb, [facility] [address] [id number] [address] [place] [address] Feb, [facility] [address] [id number] [address] [place] [address], [place] [address] Feb, [facility] [address] [id number] [address] [place] [address], [place] [address] Feb, [facility] [address] [id number] [address] [place] [address], [place] [address] Feb, [facility] [address] [id number] [address] [place] [address], [place] [address] Jan, [facility] [address] [id number] [address] [place] [address] Jan, [facility] [address] [id number] [address] [place] [address], [place] [address] Jan, [facility] [address] [id number] [address] [place] [address], [place] [address] Jan, [facility] [address] [id number] [address] [place] [address], [place] [address] 27 Dec, 2011 [facility] [address] [id number] [address] [place] [address], [place] [address] 25 Dec, 2011 [facility] [address] [id number] [address] [place] [address] 18 Dec, 2011 [facility] [address] [id number] [address] [place] [address], [place] [address] 13 Dec, 2011 [facility] [address] [id number] [address] [place] [address], [place] [address] 11 Dec, 2011 [facility] [address] [id number] [address] [place] [address], [place] [address] Oct, [facility] [address] [id number] [address] [place] [address], [place] [address] Oct, [facility] [address] [id number] [address] [place] [address], [place] [address] Sep, [facility] [address] [id number] [address] [place] [address], [place] [address] Sep, [facility] [address] [id number] [address] [place] [address], [place] [address] August, [facility] [address] [id number] [address] [place] [address], [place] [address] August, [facility] [address] [id number] [address] [place] [address], [place] [address] Jul, [facility] [address] [id number] [address] [place] [address], [place] [address] Jun, [facility] [address] [id number] [address] [place] [address], [place] [address] Jun, [facility] [address] [id number] [address] [place] [address], [place] [address] Jun, [facility] [address] [id number] [address] [place] [address], [place] [address] Jun, [facility] [address] [id number] [address] [place] [address], [place] [address] Jun, [facility] [address] [id number] [address] [place] [address], [place] [address] 24 May, 2011 [facility] [address] [id number] [address] [place] [address], [place] [address] May, [facility] [address] [id number] [address] [place] [address], [place] [address] May, [facility] [address] [id number] [address] [place] [address], [place] [address] 14 May, 2011 [facility] [address] [id number] [address] [place] [address], [place] [address] 13 May, 2011 [facility] [address] [id number] [address] [place] [address], [place] [address] May, [facility] [address] [id number] [address] [place] [address], [place] [address] 02 May, 2011 [facility] [address] [id number] [address] [place] [address], [place] [address] May, [facility] [address] [id number] [address] [place] [address], [place] [address] Apr, [facility] [address] [id number] [address] [place] [address], [place] [address] Mar, [facility] [address] [id number] [address] [place] [address], [place] [address] Mar, [facility] [address] [id number] [address] [place] [address], [place] [address] Mar, [facility] [address] [id number] [address] [place] [address], [place] [address] Mar, [facility] [address] [id number] [address] [place] [address], [place] [address] Mar, [facility] [address] [id number] [address] [place] [address], [place] [address] Jan, [facility] [address] [id number] [address] [place] [address], [place] [address] Jan, [facility] [address] [id number] [address] [place] [address] Jan, [facility] [address] [id number] [address] [place] [address], [place] [address] August, [facility] [address] [id number] [address] [place] [address], [place] [address] Mar, [facility] [address] [id number] [address] [place] [address] Feb, [facility] [address] [facility] [id number] [address] [place] [address] Jan, [facility] [address] [facility] [id number] [address] [place] [address] Jan, IMMUNIZATIONS No Known Immunizations SOCIAL HISTORY [...]
--- OUTSIDE RECORDS SUMMARY | 2019-08-20 15:58 | XMS REPORT ---
Author Author Talia HUDSON Organization [facility] Address [address] [place] [address] Care Team Providers Care Bakery Technician Name Role Phone KATIE HUDSON Unavailable PROBLEMS Type Condition ICD9-CM Code [id number] Code Onset Dates Condition S tatus SNOMED Code Problem CAD (coronary artery disease) I25.10 Active 10944266 Problem Osteoarthritis of knees, bilateral M17.0 Active 670287836 Problem Essential hypertension I10 Active 30295443 Problem Diabetes E11.9 Active 38829128 Problem Arthritis M19.90 Active 6581742 Problem Morbid obesity E66.01 Active 57251 6002 Problem Hyperlipemia E78.5 Active 2310836 4 ALLERGIES No Information ENCOUNTERS Encounter Location Date Diagnosis [facility] [address] [facility] [id number] [address] [place] [address] August, [facility] [address] [id number] [address] [place] [address] August, [facility] [address] [id number] [address] [place] [address] Jul, [facility] [address] [id number] [address] [place] [address] Jul, [facility] [address] [facility] [id number] [address] [place] [address] Jul, [facility] [address] [facility] [id number] [address] [place] [address] Jul, [facility] [address] [facility] [id number] [address] [place] [address] Jun, [facility] [address] [facility] [id number] [address] [place] [address] Jun, [facility] [address] [address] Jun, Diabetes E11.9 ; Skin infect ion L08.9 and Essential hypertension I10 [facility] [address] [place] [address] May, [facility] [address] [address] May, [facility] [address] [address] May, [facility] [address] [address] Apr, [facility] [address] [address] Mar, [facility] [address] [address] Mar, [facility] [address] [address] Feb, [facility] [address] [address] Nov, [facility] [address] [address] Nov, Diabetes E11.9 and Syncope, unspecified syncope type R55 [place] [address] [address] Nov, Osteoarthritis of knees, natan ateral M17.0 [facility] [address] [address] Oct, Diabetes E11.9 ; CAD (guardado ry artery disease) I25.10 ; Essential hypertension I10 and Hyperlipemia E78.5 [facility] [address] [address] Sep, [facility] [address] [address] Jul, [facility] [address] [address] Apr, [facility] [address] [address] Mar, Pustular lesion L08.9 and En counter for immunization Z23 [facility] [address] [address] Feb, [facility] [address] [address] Dec, [facility] [address] [address] Dec, [facility] [address] [address] Dec, Diabetes E11.9 ; Essential h ypertension I10 ; Arthritis M19.90 ; Urinary frequency R35.0 ; Routine adult health maintenance Z00.00 and BMI 45.0- 49.9, adult Z68.42 [facility] [address] [address] 18 Dec, 2017 [facility] [address] [address] Dec, [facility] [address] [address] Oct, [facility] [address] [address] Sep, Diabetes E11.9 [facility] [address] [address] Sep, Diabetes E11.9 ; Hyperlipemi a E78.5 ; CAD (coronary artery disease) I25.10 ; Essential hypertension I10 and BMI 45.0-49.9, adult Z68.42 [facility] [address] [address] Sep, [facility] [address] [facility] [id number] [address] [place] [address] August, [facility] [address] [facility] [id number] [address] [place] [address] Jan, Dysuria R30.0 [facility] [address] [place] [id number] [address] [place] [address] Jan, Dysuria R30.0 [place] [address] [place] [id number] [address] [place] [address] Jan, Osteoarthritis of knees, natan ateral M17.0 [place] [address] [place] [id number] [address] [place] [address] Nov, Dysuria R30.0 [place] [address] [place] [id number] [address] [place] [address] Oct, Blood in urine R31.9 ; Dysur ia R30.0 ; Pharyngeal dysphagia R13.13 ; Acute cystitis with hematuria N30.01 ; CAD (coronary artery disease) I25.10 and Diabetes E11.9 [place] [address] [place] [id number] [address] [place] [address] Oct, [place] [address] [place] [id number] [address] [place] [address] Sep, Arthritis M19.90 ; Blood in urine R31.9 ; Diabetes E11.9 ; Acute cystitis with hematuria N30.01 and Pharyngoesophageal dysphagia R13.14 [facility] [address] [place] [id number] [address] [place] [address] Sep, Osteoarthritis of knees, natan ateral M17.0 [facility] [address] [place] [id number] [address] [place] [address] Sep, Osteoarthritis of knees, natan ateral M17.0 [facility] [address] [place] [id number] [address] [place] [address] August, Arthritis M19.90 [facility] [address] [id number] [address] [place] [address] Jul, Arthritis M19.90 [facility] [address] [id number] [address] [place] [address] Jun, Arthritis M19.90 [facility] [address] [id number] [address] [place] [address] Jun, [facility] [address] [id number] [address] [place] [address] Jun, [facility] [address] [id number] [address] [place] [address] May, Diabetes E11.9 ; Dysuria R30 .0 and Arthritis M19.90 [facility] [address] [id number] [address] [place] [address] Apr, [facility] [address] [id number] [address] [place] [address] Apr, Arthritis M19.90 [facility] [address] [id number] [address] [place] [address] Mar, Arthritis M19.90 [facility] [address] [facility] [id number] [address] [place] [address] Feb, [facility] [address] [id number] [address] [place] [address] Jan, [facility] [address] [id number] [address] [place] [address] 29 Dec, 2015 Diabetes E11.9 and Arthritis M19.90 [facility] [address] [id number] [address] [place] [address] Dec, [facility] [address] [id number] [address] [place] [address] Nov, Arthritis M19.90 [facility] [address] [id number] [address] [place] [address] Nov, [facility] [address] [id number] [address] [place] [address] Oct, Arthritis M19.90 [facility] [address] [facility] [id number] [address] [place] [address] Sep, Osteoarthritis of knees, natan ateral M17.0 [facility] [address] [facility] [id number] [address] [place] [address] Sep, Osteoarthritis of knees, natan ateral M17.0 [facility] [address] [facility] [id number] [address] [place] [address] August, Arthritis M19.90 [facility] [address] [facility] [id number] [address] [place] [address] August, [facility] [address] [facility] [id number] [address] [place] [address] Jul, Hyperlipemia E78.5 [facility] [address] [id number] [address] [place] [address] Jul, Encounter for well woman exa m Z01.419 ; Morbid obesity E66.01 ; Encounter for screening for malignant neoplasm of cervix Z12.4 and Encounter for screening mammogram for breast cancer Z12.31 [place] [address] [id number] [address] [place] [address] Jul, Arthritis M19.90 ; Diabetes E11.9 ; Blood in urine R31.9 and UTI (urinary tract infection) N39.0 [facility] [address] [facility] [id number] [address] [place] [address] Jul, [facility] [address] [id number] [address] [place] [address] Jun, Arthritis M19.90 [facility] [address] [facility] [id number] [address] [place] [address] May, Arthritis M19.90 [facility] [address] [facility] [id number] [address] [place] [address] May, [facility] [address] [id number] [address] [place] [address] Apr, [facility] [address] [facility] [id number] [address] [place] [address] Apr, Arthritis M19.90 ; Diabetes E11.9 and Morbid obesity E66.01 [facility] [address] [id number] [address] [place] [address] Apr, [facility] [address] [facility] [id number] [address] [place] [address] Apr, Dyspareunia N94.1 [facility] [address] [facility] [id number] [address] [place] [address] 15 Apr, 2015 [facility] [address] [address] Apr, [facility] [address] [facility] [id number] [address] [place] [address] 14 Apr, 2015 Osteoarthritis of knees, natan ateral M17.0 [facility] [address] [facility] [id number] [address] [place] [address] 14 Apr, 2015 Diabetes E11.9 and CAD (elysia nary artery disease) I25.10 [facility] [address] [facility] [id number] [address] [place] [address] 08 Mar, 2015 [facility] [address] [facility] [id number] [address] [place] [address] Feb, [facility] [address] [id number] [address] [place] [address] 30 Jan, 2015 [facility] [address] [facility] [id number] [address] [place] [address] Jan, [facility] [address] [id number] [address] [place] [address] Jan, [facility] [address] [id number] [address] [place] [address] 15 Jan, 2015 Osteoarthritis of knees, natan ateral M17.0 [facility] [address] [id number] [address] [place] [address] 30 Dec, 2014 [facility] [address] [id number] [address] [place] [address] Dec, [facility] [address] [id number] [address] [place] [address] Dec, [facility] [address] [id number] [address] [place] [address] 08 Dec, 2014 Diabetes mellitus 250.00 and UTI (urinary tract infection) 599.0 [facility] [address] [id number] [address] [place] [address] Dec, [facility] [address] [id number] [address] [place] [address] Nov, [facility] [address] [id number] [address] [place] [address] Oct, [facility] [address] [id number] [address] [place] [address] Oct, [facility] [address] [id number] [address] [place] [address] Oct, [facility] [address] [id number] [address] [place] [address] Oct, [facility] [address] [id number] [address] [place] [address] Oct, [facility] [address] [id number] [address] [place] [address] Sep, [facility] [address] [id number] [address] [place] [address] August, [facility] [address] [id number] [address] [place] [address] August, [facility] [address] [id number] [address] [place] [address], [place] [address] August, [facility] [address] [id number] [address] [place] [address], [place] [address] Jul, [facility] [address] [id number] [address] [place] [address], [place] [address] Jul, [facility] [address] [id number] [address] [place] [address], [place] [address] Jul, [facility] [address] [id number] [address] [place] [address], [place] [address] Jun, [facility] [address] [id number] [address] [place] [address], [place] [address] Jun, [facility] [address] [id number] [address] [place] [address], [place] [address] Jun, [facility] [address] [id number] [address] [place] [address], [place] [address] Jun, [facility] [address] [id number] [address] [place] [address], [place] [address] Jun, [facility] [address] [id number] [address] [place] [address], [place] [address] Jun, [facility] [address] [id number] [address] [place] [address], [place] [address] Jun, [facility] [address] [id number] [address] [place] [address], [place] [address] Jun, [facility] [address] [id number] [address] [place] [address], [place] [address] May, [facility] [address] [id number] [address] [place] [address], [place] [address] May, [facility] [address] [id number] [address] [place] [address], [place] [address] May, [facility] [address] [id number] [address] [place] [address], [place] [address] May, 2014 [facility] [address] [id number] [address] [place] [address], [place] [address] May, 2014 [facility] [address] [id number] [address] [place] [address], [place] [address] May, 2014 [facility] [address] [id number] [address] [place] [address], [place] [address] May, 2014 [facility] [address] [id number] [address] [place] [address], [place] [address] May, 2014 [facility] [address] [id number] [address] [place] [address], [place] [address] May, 2014 [facility] [address] [id number] [address] [place] [address], [place] [address] May, 2014 [facility] [address] [id number] [address] [place] [address], [place] [address] May, 2014 [facility] [address] [id number] [address] [place] [address], [place] [address] May, [facility] [address] [id number] [address] [place] [address], [place] [address] Apr, [facility] [address] [id number] [address] [place] [address], [place] [address] Apr, [facility] [address] [id number] [address] [place] [address], [place] [address] Mar, [facility] [address] [id number] [address] [place] [address], [place] [address] Mar, [facility] [address] [id number] [address] [place] [address], [place] [address] Mar, [facility] [address] [id number] [address] [place] [address], [place] [address] Mar, [facility] [address] [id number] [address] [place] [address], [place] [address] Mar, [facility] [address] [id number] [address] [place] [address], [place] [address] 16 Mar, 2014 [facility] [address] [id number] [address] [place] [address], [place] [address] Feb, [facility] [address] [id number] [address] [place] [address], [place] [address] Feb, [facility] [address] [id number] [address] [place] [address], [place] [address] Feb, [facility] [address] [id number] [address] [place] [address], [place] [address] Feb, [facility] [address] [id number] [address] [place] [address], [place] [address] Feb, [facility] [address] [id number] [address] [place] [address], [place] [address] Feb, [facility] [address] [id number] [address] [place] [address], [place] [address] Feb, [facility] [address] [id number] [address] [place] [address], [place] [address] Feb, [facility] [address] [id number] [address] [place] [address] Feb, [facility] [address] [id number] [address] [place] [address] Jan, [facility] [address] [id number] [address] [place] [address] Jan, [facility] [address] [id number] [address] [place] [address], [place] [address] Jan, [facility] [address] [id number] [address] [place] [address] Jan, [facility] [address] [id number] [address] [place] [address] Jan, [facility] [address] [id number] [address] [place] [address] Jan, [facility] [address] [id number] [address] [place] [address], [place] [address] Jan, [facility] [address] [id number] [address] [place] [address], [place] [address] 17 Jan, 2014 [facility] [address] [id number] [address] [place] [address], [place] [address] Jan, [facility] [address] [id number] [address] [place] [address], [place] [address] Jan, [facility] [address] [id number] [address] [place] [address], [place] [address] Dec, [facility] [address] [id number] [address] [place] [address], [place] [address] Dec, [facility] [address] [id number] [address] [place] [address], [place] [address] Dec, [facility] [address] [id number] [address] [place] [address], [place] [address] Dec, [facility] [address] [id number] [address] [place] [address], [place] [address] Nov, [facility] [address] [id number] [address] [place] [address], [place] [address] Nov, [facility] [address] [id number] [address] [place] [address], [place] [address] Nov, [facility] [address] [id number] [address] [place] [address], [place] [address] Nov, [facility] [address] [id number] [address] [place] [address], [place] [address] Nov, [facility] [address] [id number] [address] [place] [address], [place] [address] Nov, [facility] [address] [id number] [address] [place] [address], [place] [address] Nov, [facility] [address] [id number] [facility] [place] [address] Nov, [facility] [address] [id number] [facility] [place] [address] Nov, [facility] [address] [id number] [facility] [place] [address] Oct, [facility] [address] [id number] [facility] [place] [address] Oct, [facility] [address] [id number] [facility] [place] [address] Sep, [facility] [address] [id number] [address] [place] [address], [place] [address] Sep, [facility] [address] [id number] [address] [place] [address], [place] [address] Sep, [facility] [address] [id number] [address] [place] [address], [place] [address] Sep, [facility] [address] [id number] [address] [place] [address], [place] [address] Sep, [facility] [address] [id number] [address] [place] [address], [place] [address] Sep, [facility] [address] [id number] [address] [place] [address], [place] [address] Sep, [facility] [address] [id number] [address] [place] [address], [place] [address] Sep, [facility] [address] [id number] [address] [place] [address], [place] [address] Sep, [facility] [address] [id number] [address] [place] [address], [place] [address] Sep, [facility] [address] [id number] [address] [place] [address], [place] [address] Sep, [facility] [address] [id number] [address] [place] [address], [place] [address] Sep, [facility] [address] [id number] [facility] [place] [address] Sep, [facility] [address] [id number] [address] [place] [address], [place] [address] Sep, [facility] [address] [id number] [address] [place] [address], [place] [address] August, [facility] [address] [id number] [address] [place] [address], [place] [address] August, [facility] [address] [id number] [address] [place] [address], [place] [address] August, [facility] [address] [id number] [address] [place] [address], [place] [address] August, [facility] [address] [id number] [address] [place] [address], [place] [address] Jul, [facility] [address] [id number] [address] [place] [address], [place] [address] Jul, [facility] [address] [id number] [address] [place] [address], [place] [address] Jul, [facility] [address] [id number] [address] [place] [address], [place] [address] Jul, [facility] [address] [id number] [address] [place] [address], [place] [address] Jun, [facility] [address] [id number] [address] [place] [address], [place] [address] Jun, [facility] [address] [id number] [address] [place] [address], [place] [address] May, [facility] [address] [id number] [address] [place] [address], [place] [address] May, [facility] [address] [id number] [address] [place] [address], [place] [address] May, [facility] [address] [id number] [address] [place] [address], [place] [address] May, [facility] [address] [id number] [address] [place] [address], [place] [address] May, [facility] [address] [id number] [address] [place] [address], [place] [address] May, [facility] [address] [id number] [address] [place] [address], [place] [address] May, [facility] [address] [id number] [address] [place] [address], [place] [address] May, [facility] [address] [id number] [address] [place] [address], [place] [address] May, [facility] [address] [id number] [address] [place] [address], [place] [address] Apr, [facility] [address] [id number] [address] [place] [address], [place] [address] Apr, [facility] [facility] [address] [id number] [address] [place] [address], [place] [address] Apr, [facility] [address] [id number] [address] [place] [address], [place] [address] Apr, [facility] [address] [id number] [address] [place] [address], [place] [address] Apr, [facility] [address] [id number] [address] [place] [address], [place] [id number] Mar, [facility] [address] [id number] [address] [place] [address], [place] [address] Mar, [facility] [address] [id number] [address] [place] [address], [place] [id number] Feb, [facility] [address] [id number] [address] [place] [address], [place] [address] Feb, [facility] [address] [id number] [address] [place] [address] [address] Feb, [facility] [address] [id number] [address] [place] [address], [place] [address] Feb, [facility] [address] [id number] [address] [place] [address], [place] [address] Feb, [facility] [address] [id number] [address] [place] [address], [place] [address] Feb, [facility] [address] [id number] [address] [place] [address], [place] [address] Feb, [facility] [address] [id number] [address] [place] [address], [place] [address] Feb, [facility] [address] [id number] [address] [place] [address], [place] [address] Feb, [facility] [address] [id number] [address] [place] [address], [place] [address] Jan, [facility] [address] [id number] [address] [place] [address], [place] [address] Jan, [facility] [address] [id number] [address] [place] [address], [place] [address] Jan, [facility] [address] [id number] [address] [place] [address], [place] [address] Jan, [facility] [address] [id number] [address] [place] [id number] Jan, [facility] [address] [id number] [address] [place] [address] Dec, [facility] [address] [id number] [address] [place] [address], [place] [address] Dec, [facility] [address] [id number] [address] [place] [address], [place] [address] Nov, [facility] [address] [id number] [address] [place] [address], [place] [address] Nov, [facility] [address] [id number] [address] [place] [address], [place] [id number] Oct, [facility] [address] [id number] [address] [place] [address], [place] [address] Oct, [facility] [address] [id number] [address] [place] [address], [place] [address] Oct, [facility] [address] [id number] [address] [place] [address], [place] [address] Sep, [facility] [address] [id number] [address] [place] [address], [place] [address] Sep, [facility] [address] [id number] [address] [place] [address], [place] [address] Sep, [facility] [address] [id number] [address] [place] [address], [place] [address] August, [facility] [address] [id number] [address] [place] [address], [place] [address] August, [facility] [address] [id number] [address] [place] [address], [place] [address] August, [facility] [address] [id number] [address] [place] [address], [place] [address] August, [facility] [address] [id number] [address] [place] [address], [place] [address] Jul, [facility] [address] [id number] [address] [place] [address], [place] [address] Jun, [facility] [address] [id number] [address] [place] [address], [place] [address] Jun, [facility] [address] [id number] [address] [place] [address], [place] [id number] 05 Jun, 2012 [facility] [address] [id number] [address] [place] [address], [place] [address] May, [facility] [address] [id number] [address] [place] [address], [place] [address] May, [facility] [address] [id number] [address] [place] [address], [place] [address] May, [facility] [address] [id number] [address] [place] [address], [place] [address] May, [facility] [address] [id number] [address] [place] [address], [place] [address] Apr, [facility] [address] [id number] [address] [place] [address], [place] [address] Apr, [facility] [address] [id number] [address] [place] [address], [place] [address] Apr, [facility] [address] [id number] [address] [place] [address], [place] [address] Apr, [facility] [address] [id number] [address] [place] [address], [place] [address] Apr, [facility] [address] [id number] [address] [place] [address], [place] [address] Mar, [facility] [address] [id number] [address] [place] [address], [place] [address] Mar, [facility] [address] [id number] [address] [place] [address], [place] [address] Mar, [facility] [address] [id number] [address] [place] [address], [place] [address] Mar, [facility] [address] [id number] [address] [place] [address] Mar, [facility] [address] [id number] [address] [place] [address], [place] [address] Mar, [facility] [address] [id number] [address] [place] [address], [place] [address] Mar, [facility] [address] [id number] [address] [place] [address], [place] [address] Feb, [facility] [address] [id number] [address] [place] [id number] Feb, [facility] [address] [id number] [address] [place] [address], [place] [address] Feb, [facility] [address] [id number] [address] [place] [address] Feb, [facility] [address] [id number] [address] [place] [address], [place] [address] Feb, [facility] [address] [id number] [address] [place] [address], [place] [address] Feb, [facility] [address] [id number] [address] [place] [address], [place] [address] Feb, [facility] [address] [id number] [address] [place] [address], [place] [address] Feb, [facility] [address] [id number] [address] [place] [id number] Jan, [facility] [address] [id number] [address] [place] [address], [place] [address] Jan, [facility] [address] [id number] [address] [place] [address], [place] [address] Jan, [facility] [address] [id number] [address] [place] [address] Jan, [facility] [address] [id number] [address] [place] [address], [place] [id number] 27 Sep2011 [facility] [address] [id number] [address] [place] [address] 25 Sep2011 [facility] [address] [id number] [address] [place] [address] [address] 18 Sep2011 [facility] [address] [id number] [address] [place] [address], [place] [address] 13 Sep2011 [facility] [address] [id number] [address] [place] [id number] 11 Sep2011 [facility] [address] [id number] [address] [place] [address], [place] [address] Oct, [facility] [address] [id number] [address] [place] [address], [place] [address] Oct, [facility] [address] [id number] [address] [place] [address], [place] [address] Sep, [facility] [address] [id number] [address] [place] [address], [place] [address] Sep, [facility] [address] [id number] [address] [place] [address], [place] [address] August, [facility] [address] [id number] [address] [place] [address], [place] [address] August, [facility] [address] [id number] [address] [place] [address], [place] [address] Jul, [facility] [address] [id number] [address] [place] [address], [place] [address] Jun, [facility] [address] [id number] [address] [place] [address], [place] [id number] Jun, [facility] [address] [id number] [address] [place] [address], [place] [address] Jun, [facility] [address] [id number] [address] [place] [address], [place] [address] Jun, [facility] [address] [id number] [address] [place] [address], [place] [address] Jun, [facility] [address] [id number] [address] [place] [address], [place] [address] May, [facility] [address] [id number] [address] [place] [address], [place] [address] May, [facility] [address] [id number] [address] [place] [address], [place] [address] May, [facility] [address] [id number] [address] [place] [address], [place] [id number] 14 May, 2011 [facility] [address] [id number] [address] [place] [address], [place] [id number] 13 May, 2011 [facility] [address] [id number] [address] [place] [id number] 03 May, 2011 [facility] [address] [id number] [address] [place] [address], [place] [id number] 02 May, 2011 [facility] [address] [id number] [address] [place] [address], [place] [id number] 02 May, 2011 [facility] [address] [id number] [address] [place] [address], [place] [address] Apr, [facility] [address] [id number] [address] [place] [address], [place] [address] Mar, [facility] [address] [id number] [address] [place] [id number] Mar, [facility] [address] [id number] [address] [place] [address], [place] [id number] Mar, [facility] [address] [id number] [address] [place] [address], [place] [id number] 15 Mar, 2011 [facility] [address] [id number] [address] [place] [address], [place] [address] Mar, [facility] [address] [id number] [address] [place] [id number] Jan, [facility] [address] [id number] [address] [place] [address] Jan, [facility] [address] [id number] [address] [place] [id number] Jan, [facility] [address] [id number] [address] [place] [address] August, [facility] [address] [id number] [address] [place] [id number] Mar, [facility] [address] [facility] [id number] [address] [place] [id number] Feb, [facility] [address] [facility] [id number] [address] [place] [id number] Jan, [facility] [address] [facility] [id number] [address] [place] [id number] Jan, IMMUNIZATIONS No Known Immunizations SOCIAL HISTORY [...]
--- OUTSIDE RECORDS SUMMARY | 2019-08-20 15:58 | XMS REPORT ---
Author Author Talia HUDSON Organization [facility] Address [address] [place] [address] Care Team Providers Care Client Renewal Specialist Name Role Phone KATIE HUDSON Unavailable PROBLEMS Type Condition ICD9-CM Code [id number] Code Onset Dates Condition S tatus SNOMED Code Problem CAD (coronary artery disease) I25.10 Active 04691642 Problem Osteoarthritis of knees, bilateral M17.0 Active 462374137 Problem Essential hypertension I10 Active 77960478 Problem Diabetes E11.9 Active 59083560 Problem Arthritis M19.90 Active 0463066 Problem Morbid obesity E66.01 Active 06162 6002 Problem Hyperlipemia E78.5 Active 6575547 4 ALLERGIES No Information ENCOUNTERS Encounter Location Date Diagnosis [facility] [address] [facility] [id number] [address] [place] [phone] August, [facility] [address] [facility] [id number] [address] [place] [phone] August, [facility] [address] [facility] [id number] [address] [place] [phone] Jul, [facility] [address] [facility] [id number] [address] [place] [phone] Jul, [facility] [address] [facility] [id number] [address] [place] [phone] Jul, [facility] [address] [facility] [id number] [address] [place] [phone] Jul, [facility] [address] [facility] [id number] [address] [place] [phone] Jun, [facility] [address] [facility] [id number] [address] [place] [phone] Jun, [facility] [address] [address] Jun, Diabetes E11.9 ; Skin infect ion L08.9 and Essential hypertension I10 [facility] [address] [place] [address] May, [facility] [address] [address] May, [facility] [address] [address] May, [facility] [address] [address] Apr, [facility] [address] [address] Mar, [facility] [address] [address] Mar, [facility] [address] [address] Feb, [facility] [address] [address] Nov, [facility] [address] [address] Nov, Diabetes E11.9 and Syncope, unspecified syncope type R55 [place] [address] [address] Nov, Osteoarthritis of knees, natan ateral M17.0 [facility] [address] [address] Oct, Diabetes E11.9 ; CAD (guardado ry artery disease) I25.10 ; Essential hypertension I10 and Hyperlipemia E78.5 [facility] [address] [address] Sep, [facility] [address] [address] Jul, [facility] [address] [address] Apr, [facility] [address] [address] Mar, Pustular lesion L08.9 and En counter for immunization Z23 [facility] [address] [address] Feb, [facility] [address] [address] Dec, [facility] [address] [address] Dec, [facility] [address] [address] Dec, Diabetes E11.9 ; Essential h ypertension I10 ; Arthritis M19.90 ; Urinary frequency R35.0 ; Routine adult health maintenance Z00.00 and BMI 45.0- 49.9, adult Z68.42 [facility] [address] [address] 18 Dec, 2017 [facility] [address] [address] Dec, [facility] [address] [address] Oct, [facility] [address] [address] Sep, Diabetes E11.9 [facility] [address] [address] Sep, Diabetes E11.9 ; Hyperlipemi a E78.5 ; CAD (coronary artery disease) I25.10 ; Essential hypertension I10 and BMI 45.0-49.9, adult Z68.42 [facility] [address] [address] Sep, [facility] [address] [facility] [id number] [address] [place] [phone] August, [facility] [address] [facility] [id number] [address] [place] [address] Jan, Dysuria R30.0 [facility] [address] [place] [id number] [address] [place] [phone] Jan, Dysuria R30.0 [place] [address] [place] [id number] [address] [place] [phone] Jan, Osteoarthritis of knees, natan ateral M17.0 [place] [address] [place] [id number] [address] [place] [phone] Nov, Dysuria R30.0 [place] [address] [place] [id number] [address] [place] [address] Oct, Blood in urine R31.9 ; Dysur ia R30.0 ; Pharyngeal dysphagia R13.13 ; Acute cystitis with hematuria N30.01 ; CAD (coronary artery disease) I25.10 and Diabetes E11.9 [place] [address] [place] [id number] [address] [place] [address] Oct, [place] [address] [place] [id number] [address] [place] [address] Sep, Arthritis M19.90 ; Blood in urine R31.9 ; Diabetes E11.9 ; Acute cystitis with hematuria N30.01 and Pharyngoesophageal dysphagia R13.14 [facility] [address] [place] [id number] [address] [place] [phone] Sep, Osteoarthritis of knees, natan ateral M17.0 [facility] [address] [place] [id number] [address] [place] [phone] Sep, Osteoarthritis of knees, natan ateral M17.0 [facility] [address] [place] [id number] [address] [place] [address] August, Arthritis M19.90 [facility] [address] [id number] [address] [place] [address] Jul, Arthritis M19.90 [facility] [address] [id number] [address] [place] [phone] Jun, Arthritis M19.90 [facility] [address] [id number] [address] [place] [phone] Jun, [facility] [address] [id number] [address] [place] [phone] Jun, [facility] [address] [facility] [id number] [address] [place] [phone] May, Diabetes E11.9 ; Dysuria R30 .0 and Arthritis M19.90 [facility] [address] [id number] [address] [place] [phone] Apr, [facility] [address] [id number] [address] [place] [phone] Apr, Arthritis M19.90 [facility] [address] [id number] [address] [place] [address] Mar, Arthritis M19.90 [facility] [address] [facility] [id number] [address] [place] [phone] Feb, [facility] [address] [id number] [address] [place] [address] Jan, [facility] [address] [id number] [address] [place] [phone] 29 Dec, 2015 Diabetes E11.9 and Arthritis M19.90 [facility] [address] [id number] [address] [place] [phone] Dec, [facility] [address] [facility] [id number] [address] [place] [phone] Nov, Arthritis M19.90 [facility] [address] [id number] [address] [place] [id number] Nov, [facility] [address] [id number] [address] [place] [phone] Oct, Arthritis M19.90 [facility] [address] [facility] [id number] [address] [place] [id number] Sep, Osteoarthritis of knees, natan ateral M17.0 [facility] [address] [facility] [id number] [address] [place] [id number] Sep, Osteoarthritis of knees, natan ateral M17.0 [facility] [address] [facility] [id number] [address] [place] [address] August, Arthritis M19.90 [facility] [address] [facility] [id number] [address] [place] [phone] August, [facility] [address] [facility] [id number] [address] [place] [phone] Jul, Hyperlipemia E78.5 [facility] [address] [facility] [id number] [address] [place] [id number] Jul, Encounter for well woman exa m Z01.419 ; Morbid obesity E66.01 ; Encounter for screening for malignant neoplasm of cervix Z12.4 and Encounter for screening mammogram for breast cancer Z12.31 [place] [address] [facility] [id number] [address] [place] [id number] Jul, Arthritis M19.90 ; Diabetes E11.9 ; Blood in urine R31.9 and UTI (urinary tract infection) N39.0 [facility] [address] [facility] [id number] [address] [place] [id number] Jul, [facility] [address] [facility] [id number] [address] [place] [address] Jun, Arthritis M19.90 [facility] [address] [facility] [id number] [address] [place] [address] May, Arthritis M19.90 [facility] [address] [facility] [id number] [address] [place] [phone] May, [facility] [address] [id number] [address] [place] [phone] Apr, [facility] [address] [facility] [id number] [address] [place] [phone] Apr, Arthritis M19.90 ; Diabetes E11.9 and Morbid obesity E66.01 [facility] [address] [id number] [address] [place] [phone] Apr, [facility] [address] [facility] [id number] [address] [place] [phone] Apr, Dyspareunia N94.1 [facility] [address] [facility] [id number] [address] [place] [phone] 15 Apr, 2015 [facility] [address] [id number] Apr, [facility] [address] [facility] [id number] [address] [place] [id number] 14 Apr, 2015 Osteoarthritis of knees, natan ateral M17.0 [facility] [address] [facility] [id number] [address] [place] [phone] 14 Apr, 2015 Diabetes E11.9 and CAD (elysia nary artery disease) I25.10 [facility] [address] [facility] [id number] [address] [place] [phone] 08 Mar, 2015 [facility] [address] [facility] [id number] [address] [place] [phone] Feb, [facility] [address] [facility] [id number] [address] [place] [phone] 30 Jan, 2015 [facility] [address] [facility] [id number] [address] [place] [phone] Jan, [facility] [address] [facility] [id number] [address] [place] [phone] Jan, [facility] [address] [id number] [address] [place] [phone] 15 Jan, 2015 Osteoarthritis of knees, natan ateral M17.0 [facility] [address] [id number] [address] [place] [phone] 30 Dec, 2014 [facility] [address] [id number] [address] [place] [phone] Dec, [facility] [address] [id number] [address] [place] [id number] Dec, [facility] [address] [id number] [address] [place] [id number] 08 Dec, 2014 Diabetes mellitus 250.00 and UTI (urinary tract infection) 599.0 [facility] [address] [id number] [address] [place] [id number] Dec, [facility] [address] [id number] [address] [place] [phone] Nov, [facility] [address] [id number] [address] [place] [phone] Oct, [facility] [address] [id number] [address] [place] [phone] Oct, [facility] [address] [id number] [address] [place] [phone] Oct, [facility] [address] [id number] [address] [place] [phone] Oct, [facility] [address] [id number] [address] [place] [phone] Oct, [facility] [address] [id number] [address] [place] [phone] Sep, [facility] [address] [id number] [address] [place] [phone] August, [facility] [address] [id number] [address] [place] [phone] August, [facility] [address] [id number] [address] [place] [address], [place] [address] August, [facility] [address] [id number] [address] [place] [address], [place] [address] Jul, [facility] [address] [id number] [address] [place] [address], [place] [address] Jul, [facility] [address] [id number] [address] [place] [address], [place] [address] Jul, [facility] [address] [id number] [address] [place] [address], [place] [address] Jun, [facility] [address] [id number] [address] [place] [address], [place] [address] Jun, [facility] [address] [id number] [address] [place] [address], [place] [address] Jun, [facility] [address] [id number] [address] [place] [address], [place] [address] Jun, [facility] [address] [id number] [address] [place] [address], [place] [address] Jun, [facility] [address] [id number] [address] [place] [address], [place] [address] Jun, [facility] [address] [id number] [address] [place] [address], [place] [address] Jun, [facility] [address] [id number] [address] [place] [address], [place] [address] Jun, [facility] [address] [id number] [address] [place] [address], [place] [address] May, [facility] [address] [id number] [address] [place] [address], [place] [address] May, [facility] [address] [id number] [address] [place] [address], [place] [address] May, [facility] [address] [id number] [address] [place] [address], [place] [address] May, 2014 [facility] [address] [id number] [address] [place] [address], [place] [address] May, 2014 [facility] [address] [id number] [address] [place] [address], [place] [address] May, 2014 [facility] [address] [id number] [address] [place] [address], [place] [address] May, 2014 [facility] [address] [id number] [address] [place] [address], [place] [address] May, 2014 [facility] [address] [id number] [address] [place] [address], [place] [address] May, 2014 [facility] [address] [id number] [address] [place] [address], [place] [address] May, 2014 [facility] [address] [id number] [address] [place] [address], [place] [address] May, 2014 [facility] [address] [id number] [address] [place] [address], [place] [address] May, [facility] [address] [id number] [address] [place] [address], [place] [address] Apr, [facility] [address] [id number] [address] [place] [address], [place] [address] Apr, [facility] [address] [id number] [address] [place] [address], [place] [address] Mar, [facility] [address] [id number] [address] [place] [address], [place] [address] Mar, [facility] [address] [id number] [address] [place] [address], [place] [address] Mar, [facility] [address] [id number] [address] [place] [address], [place] [address] Mar, [facility] [address] [id number] [address] [place] [address], [place] [address] Mar, [facility] [address] [id number] [address] [place] [address], [place] [address] 16 Mar, 2014 [facility] [address] [id number] [address] [place] [address], [place] [address] Feb, [facility] [address] [id number] [address] [place] [address], [place] [address] Feb, [facility] [address] [id number] [address] [place] [address], [place] [address] Feb, [facility] [address] [id number] [address] [place] [address], [place] [address] Feb, [facility] [address] [id number] [address] [place] [address], [place] [address] Feb, [facility] [address] [id number] [address] [place] [address], [place] [address] Feb, [facility] [address] [id number] [address] [place] [address], [place] [address] Feb, [facility] [address] [id number] [address] [place] [address], [place] [address] Feb, [facility] [address] [id number] [address] [place] [phone] Feb, [facility] [address] [id number] [address] [place] [phone] Jan, [facility] [address] [id number] [address] [place] [phone] Jan, [facility] [address] [id number] [address] [place] [address], [place] [address] Jan, [facility] [address] [id number] [address] [place] [phone] Jan, [facility] [address] [id number] [address] [place] [phone] Jan, [facility] [address] [id number] [address] [place] [phone] Jan, [facility] [address] [id number] [address] [place] [address], [place] [address] Jan, [facility] [address] [id number] [address] [place] [address], [place] [address] 17 Jan, 2014 [facility] [address] [id number] [address] [place] [address], [place] [address] Jan, [facility] [address] [id number] [address] [place] [address], [place] [address] Jan, [facility] [address] [id number] [address] [place] [address], [place] [address] Dec, [facility] [address] [id number] [address] [place] [address], [place] [address] Dec, [facility] [address] [id number] [address] [place] [address], [place] [address] Dec, [facility] [address] [id number] [address] [place] [address], [place] [address] Dec, [facility] [address] [id number] [address] [place] [address], [place] [address] Nov, [facility] [address] [id number] [address] [place] [address], [place] [address] Nov, [facility] [address] [id number] [address] [place] [address], [place] [address] Nov, [facility] [address] [id number] [address] [place] [address], [place] [address] Nov, [facility] [address] [id number] [address] [place] [address], [place] [address] Nov, [facility] [address] [id number] [address] [place] [address], [place] [address] Nov, [facility] [address] [id number] [address] [place] [address], [place] [address] Nov, [facility] [address] [id number] [facility] [place] [address] Nov, [facility] [address] [id number] [facility] [place] [address] Nov, [facility] [address] [id number] [facility] [place] [address] Oct, [facility] [address] [id number] [facility] [place] [address] Oct, [facility] [address] [id number] [facility] [place] [address] Sep, [facility] [address] [id number] [address] [place] [address], [place] [address] Sep, [facility] [address] [id number] [address] [place] [address], [place] [address] Sep, [facility] [address] [id number] [address] [place] [address], [place] [address] Sep, [facility] [address] [id number] [address] [place] [address], [place] [address] Sep, [facility] [address] [id number] [address] [place] [address], [place] [address] Sep, [facility] [address] [id number] [address] [place] [address], [place] [address] Sep, [facility] [address] [id number] [address] [place] [address], [place] [address] Sep, [facility] [address] [id number] [address] [place] [address], [place] [address] Sep, [facility] [address] [id number] [address] [place] [address], [place] [address] Sep, [facility] [address] [id number] [address] [place] [address], [place] [address] Sep, [facility] [address] [id number] [address] [place] [address], [place] [address] Sep, [facility] [address] [id number] [facility] [place] [address] Sep, [facility] [address] [id number] [address] [place] [address], [place] [address] Sep, [facility] [address] [id number] [address] [place] [address], [place] [address] August, [facility] [address] [id number] [address] [place] [address], [place] [address] August, [facility] [address] [id number] [address] [place] [address], [place] [address] August, [facility] [address] [id number] [address] [place] [address], [place] [address] August, [facility] [address] [id number] [address] [place] [address], [place] [address] Jul, [facility] [address] [id number] [address] [place] [address], [place] [address] Jul, [facility] [address] [id number] [address] [place] [address], [place] [address] Jul, [facility] [address] [id number] [address] [place] [address], [place] [address] Jul, [facility] [address] [id number] [address] [place] [address], [place] [address] Jun, [facility] [address] [id number] [address] [place] [address], [place] [address] Jun, [facility] [address] [id number] [address] [place] [address], [place] [address] May, [facility] [address] [id number] [address] [place] [address], [place] [address] May, [facility] [address] [address] [id number] [address] [place] [address], [place] [address] May, [facility] [address] [id number] [address] [place] [address], [place] [address] May, [facility] [address] [id number] [address] [place] [address], [place] [address] May, [facility] [address] [id number] [address] [place] [address], [place] [address] May, [facility] [address] [id number] [address] [place] [address], [place] [address] May, [facility] [address] [id number] [address] [place] [address], [place] [address] May, [facility] [address] [id number] [address] [place] [address], [place] [address] May, [facility] [address] [id number] [address] [place] [address], [place] [address] Apr, [facility] [address] [id number] [address] [place] [address], [place] [address] Apr, [facility] [address] [id number] [address] [place] [address], [place] [address] Apr, [facility] [address] [id number] [address] [place] [address], [place] [address] Apr, [facility] [address] [id number] [address] [place] [address], [place] [address] Apr, [facility] [address] [id number] [address] [place] [address], [place] [address] Mar, [facility] [address] [id number] [address] [place] [address], [place] [address] Mar, [facility] [address] [id number] [address] [place] [address], [place] [address] Feb, [facility] [address] [id number] [address] [place] [address], [place] [address] Feb, [facility] [address] [id number] [address] [place] [address] [address] Feb, [facility] [address] [id number] [address] [place] [address], [place] [address] Feb, [facility] [address] [id number] [address] [place] [address], [place] [address] Feb, [facility] [address] [id number] [address] [place] [address], [place] [address] Feb, [facility] [address] [id number] [address] [place] [address], [place] [address] Feb, [facility] [address] [id number] [address] [place] [address], [place] [address] Feb, [facility] [address] [id number] [address] [place] [address], [place] [address] Feb, [facility] [address] [id number] [address] [place] [address], [place] [address] Jan, [facility] [address] [id number] [address] [place] [address], [place] [address] Jan, [facility] [address] [id number] [address] [place] [address], [place] [address] Jan, [facility] [address] [id number] [address] [place] [address], [place] [address] Jan, [facility] [address] [id number] [address] [place] [address] Jan, [facility] [address] [id number] [address] [place] [address] Dec, [facility] [address] [id number] [address] [place] [address], [place] [address] Dec, [facility] [address] [id number] [address] [place] [address], [place] [address] Nov, [facility] [address] [id number] [address] [place] [address], [place] [address] Nov, [facility] [address] [id number] [address] [place] [address], [place] [address] Oct, [facility] [address] [id number] [address] [place] [address], [place] [address] Oct, [facility] [address] [id number] [address] [place] [address], [place] [address] Oct, [facility] [address] [id number] [address] [place] [address], [place] [address] Sep, [facility] [address] [id number] [address] [place] [address], [place] [address] Sep, [facility] [address] [id number] [address] [place] [address], [place] [address] Sep, [facility] [address] [id number] [address] [place] [address], [place] [address] August, [facility] [address] [id number] [address] [place] [address], [place] [address] August, [facility] [address] [id number] [address] [place] [address], [place] [address] August, [facility] [address] [id number] [address] [place] [address], [place] [address] August, [facility] [address] [id number] [address] [place] [address], [place] [address] Jul, [facility] [address] [id number] [address] [place] [address], [place] [address] Jun, [facility] [address] [id number] [address] [place] [address], [place] [address] Jun, [facility] [address] [id number] [address] [place] [address], [place] [address] 05 Jun, 2012 [facility] [address] [id number] [address] [place] [address], [place] [address] May, [facility] [address] [id number] [address] [place] [address], [place] [address] May, [facility] [address] [id number] [address] [place] [address], [place] [address] May, [facility] [address] [id number] [address] [place] [address], [place] [address] May, [facility] [address] [id number] [address] [place] [address], [place] [address] Apr, [facility] [address] [id number] [address] [place] [address], [place] [address] Apr, [facility] [address] [id number] [address] [place] [address], [place] [address] Apr, [facility] [address] [id number] [address] [place] [address], [place] [address] Apr, [facility] [address] [id number] [address] [place] [address], [place] [address] Apr, [facility] [address] [id number] [address] [place] [address], [place] [address] Mar, [facility] [address] [id number] [address] [place] [address], [place] [address] Mar, [facility] [address] [id number] [address] [place] [address], [place] [address] Mar, [facility] [address] [id number] [address] [place] [address], [place] [address] Mar, [facility] [address] [id number] [address] [place] [address] Mar, [facility] [address] [id number] [address] [place] [address], [place] [address] Mar, [facility] [address] [id number] [address] [place] [address], [place] [address] Mar, [facility] [address] [id number] [address] [place] [address], [place] [address] Feb, [facility] [address] [id number] [address] [place] [address] Feb, [facility] [address] [id number] [address] [place] [address], [place] [address] Feb, [facility] [address] [id number] [address] [place] [address] Feb, [facility] [address] [id number] [address] [place] [address], [place] [address] Feb, [facility] [address] [id number] [address] [place] [address], [place] [address] Feb, [facility] [address] [id number] [address] [place] [address], [place] [address] Feb, [facility] [address] [id number] [address] [place] [address], [place] [address] Feb, [facility] [address] [id number] [address] [place] [address] Jan, [facility] [address] [id number] [address] [place] [address], [place] [address] Jan, [facility] [address] [id number] [address] [place] [address], [place] [address] Jan, [facility] [address] [id number] [address] [place] [address] Jan, [facility] [address] [id number] [address] [place] [address], [place] [address] 27 Sep2011 [facility] [address] [id number] [address] [place] [address] 25 Sep2011 [facility] [address] [id number] [address] [place] [address], [place] [address] 18 Sep2011 [facility] [address] [id number] [address] [place] [address], [place] [address] 13 Sep2011 [facility] [address] [id number] [address] [place] [address] 11 Sep2011 [facility] [address] [id number] [address] [place] [address], [place] [address] Oct, [facility] [address] [id number] [address] [place] [address], [place] [address] Oct, [facility] [address] [id number] [address] [place] [address], [place] [address] Sep, [facility] [address] [id number] [address] [place] [address], [place] [address] Sep, [facility] [address] [id number] [address] [place] [address], [place] [address] August, [facility] [address] [id number] [address] [place] [address], [place] [address] August, [facility] [address] [id number] [address] [place] [address], [place] [address] Jul, [facility] [address] [id number] [address] [place] [address], [place] [address] Jun, [facility] [address] [id number] [address] [place] [address], [place] [address] Jun, [facility] [address] [id number] [address] [place] [address], [place] [address] Jun, [facility] [address] [id number] [address] [place] [address], [place] [address] Jun, [facility] [address] [id number] [address] [place] [address], [place] [address] Jun, [facility] [address] [id number] [address] [place] [address], [place] [address] May, [facility] [address] [id number] [address] [place] [address], [place] [address] May, [facility] [address] [id number] [address] [place] [address], [place] [address] May, [facility] [address] [id number] [address] [place] [address], [place] [address] 14 May, 2011 [facility] [address] [id number] [address] [place] [address], [place] [address] 13 May, 2011 [facility] [address] [id number] [address] [place] [address] 03 May, 2011 [facility] [address] [id number] [address] [place] [address], [place] [address] 02 May, 2011 [facility] [address] [id number] [address] [place] [address], [place] [address] 02 May, 2011 [facility] [address] [id number] [address] [place] [address], [place] [address] Apr, [facility] [address] [id number] [address] [place] [address], [place] [address] Mar, [facility] [address] [id number] [address] [place] [address] Mar, [facility] [address] [id number] [address] [place] [address], [place] [address] Mar, [facility] [address] [id number] [address] [place] [address], [place] [address] 15 Mar, 2011 [facility] [address] [id number] [address] [place] [address], [place] [address] Mar, [facility] [address] [id number] [address] [place] [address] Jan, [facility] [address] [id number] [address] [place] [address] Jan, [facility] [address] [id number] [address] [place] [address] Jan, [facility] [address] [id number] [address] [place] [address] August, [facility] [address] [id number] [address] [place] [address] Mar, [facility] [address] [facility] [id number] [address] [place] [address] Feb, [facility] [address] [facility] [id number] [address] [place] [phone] Jan, [facility] [address] [facility] [id number] [address] [place] [phone] Jan, IMMUNIZATIONS No Known Immunizations SOCIAL HISTORY [...]
--- OUTSIDE RECORDS SUMMARY | 2019-08-20 15:59 | XMS REPORT ---
Author Author Talia HUDSNO Organization [facility] Address [address] [place] [address] Care Team Providers [employer] Name Role Phone KATIE UHDSON Unavailable PROBLEMS Type Condition ICD9-CM Code [id number] Code Onset Dates Condition S tatus SNOMED Code Problem CAD (coronary artery disease) I25.10 Active 55417576 Problem Osteoarthritis of knees, bilateral M17.0 Active 422543469 Problem Essential hypertension I10 Active 82469363 Problem Diabetes E11.9 Active 85837537 Problem Arthritis M19.90 Active 3779128 Problem Morbid obesity E66.01 Active 05894 6002 Problem Hyperlipemia E78.5 Active 6749135 4 ALLERGIES No Information ENCOUNTERS Encounter Location Date Diagnosis [facility] [address] [facility] [id number] [address] [place] [address] Jul, [facility] [address] [facility] [id number] [address] [place] [address] Jul, [facility] [address] [facility] [id number] [address] [place] [address] Jul, [facility] [address] [facility] [id number] [address] [place] [address] 15 Jul, 2019 [facility] [address] [facility] [id number] [address] [place] [address] Jul, [facility] [address] [facility] [id number] [address] [place] [address] 16 Jun, 2019 [facility] [address] [facility] [id number] [address] [place] [address] 16 Jun, 2019 [facility] [address] [facility] [id number] [address] [place] [address] 12 Jun, 2019 Diabetes E11.9 ; Skin infect ion L08.9 and Essential hypertension I10 [facility] [address] [address] May, [facility] [address] [place] [id number] [address] [place] [address] May, [facility] [address] [address] May, [facility] [address] [address] Apr, [facility] [address] [address] Mar, [facility] [address] [address] Mar, [facility] [address] [address] Feb, [facility] [address] [address] Nov, [facility] [address] [address] Nov, Diabetes E11.9 and Syncope, unspecified syncope type R55 [place] [address] [address] Nov, Osteoarthritis of knees, natan ateral M17.0 [facility] [address] [address] Oct, Diabetes E11.9 ; CAD (guardado ry artery disease) I25.10 ; Essential hypertension I10 and Hyperlipemia E78.5 [facility] [address] [address] Sep, [facility] [address] [place] [id number] [place] [address] Jul, [facility] [address] [place] [address] Apr, [facility] [address] [address] Mar, Pustular lesion L08.9 and En counter for immunization Z23 [facility] [address] [place] [id number] [place] [address] Feb, [facility] [address] [address] Dec, [facility] [address] [place] [id number] [place] [address] Dec, [facility] [address] [address] Dec, Diabetes E11.9 ; Essential h ypertension I10 ; Arthritis M19.90 ; Urinary frequency R35.0 ; Routine adult health maintenance Z00.00 and BMI 45.0- 49.9, adult Z68.42 [facility] [address] [address] 18 Dec, 2017 [facility] [address] [address] Dec, [facility] [address] [address] Oct, [facility] [address] [address] Sep, Diabetes E11.9 [facility] [address] [place] [id number] [address] [place] [address] Sep, Diabetes E11.9 ; Hyperlipemi a E78.5 ; CAD (coronary artery disease) I25.10 ; Essential hypertension I10 and BMI 45.0-49.9, adult Z68.42 [facility] [address] [place] [id number] [address] [place] [address] Sep, [facility] [address] [address] August, [facility] [address] [facility] [id number] [address] [place] [address] Jan, Dysuria R30.0 [facility] [address] [place] [id number] [address] [place] [address] Jan, Dysuria R30.0 [facility] [address] [place] [id number] [address] [place] [address] Jan, Osteoarthritis of knees, natan ateral M17.0 [facility] [address] [place] [id number] [address] [place] [address] Nov, Dysuria R30.0 [place] [address] [place] [id number] [place] [address] Oct, Blood in urine R31.9 ; Dysur ia R30.0 ; Pharyngeal dysphagia R13.13 ; Acute cystitis with hematuria N30.01 ; CAD (coronary artery disease) I25.10 and Diabetes E11.9 [facility] [address] [place] [id number] [address] [place] [address] Oct, [facility] [address] [place] [id number] [place] [address] Sep, Arthritis M19.90 ; Blood in urine R31.9 ; Diabetes E11.9 ; Acute cystitis with hematuria N30.01 and Pharyngoesophageal dysphagia R13.14 [facility] [address] [place] [id number] [address] [place] [address] Sep, Osteoarthritis of knees, natan ateral M17.0 [facility] [address] [place] [id number] [address] [place] [address] Sep, Osteoarthritis of knees, natan ateral M17.0 [facility] [address] [place] [id number] [address] [place] [address] August, Arthritis M19.90 [facility] [address] [place] [id number] [address] [place] [address] Jul, Arthritis M19.90 [facility] [address] [id number] [address] [place] [address] Jun, Arthritis M19.90 [facility] [address] [id number] [address] [place] [address] Jun, [facility] [address] [id number] [address] [place] [address] Jun, [facility] [address] [id number] [address] [place] [address] May, Diabetes E11.9 ; Dysuria R30 .0 and Arthritis M19.90 [facility] [address] [id number] [address] [place] [address] Apr, [facility] [address] [id number] [address] [place] [address] Apr, Arthritis M19.90 [facility] [address] [id number] [address] [place] [address] Mar, Arthritis M19.90 [facility] [address] [id number] [address] [place] [address] Feb, [facility] [address] [id number] [address] [place] [address] Jan, [facility] [address] [id number] [address] [place] [address] Dec, Diabetes E11.9 and Arthritis M19.90 [facility] [address] [id number] [address] [place] [address] Dec, [facility] [address] [id number] [address] [place] [address] Nov, Arthritis M19.90 [facility] [address] [id number] [address] [place] [address] Nov, [facility] [address] [id number] [address] [place] [address] Oct, Arthritis M19.90 [facility] [address] [id number] [address] [place] [address] Sep, Osteoarthritis of knees, natan ateral M17.0 [facility] [address] [id number] [address] [place] [address] Sep, Osteoarthritis of knees, natan ateral M17.0 [facility] [address] [facility] [id number] [address] [place] [address] August, Arthritis M19.90 [facility] [address] [facility] [id number] [address] [place] [address] August, [facility] [address] [facility] [id number] [address] [place] [address] Jul, Hyperlipemia E78.5 [place] [address] [facility] [id number] [address] [place] [address] Jul, Encounter for well woman exa m Z01.419 ; Morbid obesity E66.01 ; Encounter for screening for malignant neoplasm of cervix Z12.4 and Encounter for screening mammogram for breast cancer Z12.31 [place] [address] [facility] [id number] [address] [place] [address] Jul, Arthritis M19.90 ; Diabetes E11.9 ; Blood in urine R31.9 and UTI (urinary tract infection) N39.0 [facility] [address] [facility] [id number] [address] [place] [address] Jul, [facility] [address] [facility] [id number] [address] [place] [address] Jun, Arthritis M19.90 [facility] [address] [facility] [id number] [address] [place] [address] May, Arthritis M19.90 [facility] [address] [facility] [id number] [address] [place] [address] May, [facility] [address] [id number] [address] [place] [address] Apr, [facility] [address] [id number] [address] [place] [address] Apr, Arthritis M19.90 ; Diabetes E11.9 and Morbid obesity E66.01 [facility] [address] [id number] [address] [place] [address] Apr, [facility] [address] [id number] [address] [place] [address] Apr, Dyspareunia N94.1 [facility] [address] [id number] [address] [place] [address] Apr, [facility] [address] [id number] [address] [place] [address] Apr, [facility] [address] [id number] [address] [place] [address] Apr, Osteoarthritis of knees, natan ateral M17.0 [facility] [address] [id number] [address] [place] [address] Apr, Diabetes E11.9 and CAD (elysia nary artery disease) I25.10 [facility] [address] [id number] [address] [place] [address] Mar, [facility] [address] [id number] [address] [place] [address] Feb, [facility] [address] [id number] [address] [place] [address] 30 Jan, 2015 [facility] [address] [id number] [address] [place] [address] Jan, [facility] [address] [id number] [address] [place] [address] Jan, [facility] [address] [id number] [address] [place] [address] Jan, Osteoarthritis of knees, natan ateral M17.0 [facility] [address] [id number] [address] [place] [address], [place] [address] Dec, [facility] [address] [id number] [address] [place] [address], [place] [address] Dec, [facility] [address] [id number] [address] [place] [address] Dec, [facility] [address] [id number] [address] [place] [address] Dec, Diabetes mellitus 250.00 and UTI (urinary tract infection) 599.0 [facility] [address] [id number] [address] [place] [address], [place] [address] Dec, [facility] [address] [id number] [address] [place] [address] Nov, [facility] [address] [id number] [address] [place] [address] Oct, [facility] [address] [id number] [address] [place] [address] Oct, [facility] [address] [id number] [address] [place] [address], [place] [address] Oct, [facility] [address] [id number] [address] [place] [address] Oct, [facility] [address] [id number] [address] [place] [address], [place] [address] Oct, [facility] [address] [id number] [address] [place] [address] Sep, [facility] [address] [id number] [address] [place] [address] August, [facility] [address] [id number] [address] [place] [address] August, [facility] [address] [id number] [address] [place] [address] August, [facility] [address] [id number] [address] [place] [address], [place] [address] 29 Jul, 2014 [facility] [address] [id number] [address] [place] [address], [place] [address] 14 Jul, 2014 [facility] [address] [id number] [address] [place] [address], [place] [address] Jul, [facility] [address] [id number] [address] [place] [address], [place] [address] Jun, [facility] [address] [id number] [address] [place] [address], [place] [address] 24 Jun, 2014 [facility] [address] [id number] [address] [place] [address], [place] [address] Jun, [facility] [address] [id number] [address] [place] [address], [place] [address] Jun, [facility] [address] [id number] [address] [place] [address], [place] [address] Jun, [facility] [address] [id number] [address] [place] [address], [place] [address] Jun, [facility] [address] [id number] [address] [place] [address], [place] [address] Jun, [facility] [address] [id number] [address] [place] [address], [place] [address] Jun, [facility] [address] [id number] [address] [place] [address], [place] [address] May, [facility] [address] [id number] [address] [place] [address], [place] [address] May, [facility] [address] [id number] [address] [place] [address], [place] [address] May, [facility] [address] [id number] [address] [place] [address], [place] [address] May, [facility] [address] [id number] [address] [place] [address], [place] [address] May, 2014 [facility] [address] [id number] [address] [place] [address], [place] [address] May, 2014 [facility] [address] [id number] [address] [place] [address], [place] [address] May, 2014 [facility] [address] [id number] [address] [place] [address], [place] [address] May, 2014 [facility] [address] [id number] [address] [place] [address], [place] [address] May, 2014 [facility] [address] [id number] [address] [place] [address], [place] [address] May, 2014 [facility] [address] [id number] [address] [place] [address], [place] [address] May, 2014 [facility] [address] [id number] [address] [place] [address], [place] [address] May, 2014 [facility] [address] [id number] [address] [place] [address], [place] [address] Apr, [facility] [address] [id number] [address] [place] [address], [place] [address] Apr, [facility] [address] [id number] [address] [place] [address], [place] [address] Mar, [facility] [address] [id number] [address] [place] [address], [place] [address] Mar, [facility] [address] [id number] [address] [place] [address], [place] [address] Mar, [facility] [address] [id number] [address] [place] [address], [place] [address] Mar, [facility] [address] [id number] [address] [place] [address], [place] [address] Mar, [facility] [address] [id number] [address] [place] [address], [place] [address] Mar, [facility] [address] [id number] [address] [place] [address], [place] [address] Feb, [facility] [address] [id number] [address] [place] [address], [place] [address] Feb, [facility] [address] [id number] [address] [place] [address], [place] [address] Feb, [facility] [address] [id number] [address] [place] [address], [place] [address] Feb, [facility] [address] [id number] [address] [place] [address], [place] [address] Feb, [facility] [address] [id number] [address] [place] [address], [place] [address] Feb, [facility] [address] [id number] [address] [place] [address], [place] [address] Feb, [facility] [address] [id number] [address] [place] [address], [place] [address] Feb, [facility] [address] [id number] [address] [place] [address], [place] [address] Feb, [facility] [address] [id number] [address] [place] [address] Jan, [facility] [address] [id number] [address] [place] [address] Jan, [facility] [address] [id number] [address] [place] [address] Jan, [facility] [address] [id number] [address] [place] [address], [place] [address] Jan, [facility] [address] [id number] [address] [place] [address], [place] [address] Jan, [facility] [address] [id number] [address] [place] [address] Jan, [facility] [address] [id number] [address] [place] [address] 17 Jan, 2014 [facility] [address] [id number] [address] [place] [address], [place] [address] 17 Jan, 2014 [facility] [address] [id number] [address] [place] [address], [place] [address] Jan, [facility] [address] [id number] [address] [place] [address], [place] [address] Jan, [facility] [address] [id number] [address] [place] [address], [place] [address] 19 Dec, 2013 [facility] [address] [id number] [address] [place] [address], [place] [address] 19 Dec, 2013 [facility] [address] [id number] [address] [place] [address], [place] [address] Dec, [facility] [address] [id number] [address] [place] [address], [place] [address] Dec, [facility] [address] [id number] [address] [place] [address], [place] [address] Nov, [facility] [address] [id number] [address] [place] [address], [place] [address] Nov, [facility] [address] [id number] [address] [place] [address], [place] [address] Nov, [facility] [address] [id number] [address] [place] [address], [place] [address] Nov, [facility] [address] [id number] [address] [place] [address], [place] [address] Nov, [facility] [address] [id number] [address] [place] [address], [place] [address] Nov, [facility] [address] [id number] [address] [place] [address], [place] [address] Nov, [facility] [address] [id number] [address] [place] [address], [place] [address] Nov, [facility] [address] [id number] [facility] [place] [address] Nov, [facility] [address] [id number] [facility] [place] [address] Oct, [facility] [address] [id number] [facility] [place] [address] Oct, [facility] [address] [id number] [facility] [place] [address] Sep, [facility] [address] [id number] [facility] [place] [address] Sep, [facility] [address] [id number] [facility] [place] [address] Sep, [facility] [address] [id number] [address] [place] [address], [place] [address] Sep, [facility] [address] [id number] [address] [place] [address], [place] [address] Sep, [facility] [address] [id number] [address] [place] [address], [place] [address] Sep, [facility] [address] [id number] [address] [place] [address], [place] [address] Sep, [facility] [address] [id number] [address] [place] [address], [place] [address] Sep, [facility] [address] [id number] [address] [place] [address], [place] [address] Sep, [facility] [address] [id number] [address] [place] [address], [place] [address] Sep, [facility] [address] [id number] [address] [place] [address], [place] [address] Sep, [facility] [address] [id number] [address] [place] [address], [place] [address] Sep, [facility] [address] [id number] [address] [place] [address], [place] [address] Sep, [facility] [address] [id number] [address] [place] [address], [place] [address] Sep, [facility] [address] [id number] [address] [place] [address], [place] [address] August, [facility] [address] [id number] [address] [place] [address], [place] [address] August, [facility] [address] [id number] [address] [place] [address], [place] [address] August, [facility] [address] [id number] [address] [place] [address], [place] [address] August, [facility] [address] [id number] [address] [place] [address], [place] [address] Jul, [facility] [address] [id number] [address] [place] [address], [place] [address] Jul, [facility] [address] [id number] [address] [place] [address], [place] [address] Jul, [facility] [address] [id number] [address] [place] [address], [place] [address] Jul, [facility] [address] [id number] [address] [place] [address], [place] [address] Jun, [facility] [address] [id number] [address] [place] [address], [place] [address] Jun, [facility] [address] [id number] [address] [place] [address], [place] [address] May, [facility] [address] [id number] [address] [place] [address], [place] [address] May, [facility] [address] [id number] [address] [place] [address], [place] [address] May, [facility] [address] [id number] [address] [place] [address], [place] [address] May, [facility] [address] [id number] [address] [place] [address], [place] [address] May, [facility] [address] [id number] [address] [place] [address], [place] [address] May, [facility] [address] [id number] [address] [place] [address], [place] [id number] May, [facility] [address] [id number] [address] [place] [address], [place] [address] May, [facility] [address] [id number] [address] [place] [address], [place] [address] May, [facility] [address] [id number] [address] [place] [address], [place] [address] Apr, [facility] [address] [id number] [address] [place] [address], [place] [address] Apr, [facility] [address] [id number] [address] [place] [address], [place] [address] Apr, [facility] [address] [id number] [address] [place] [address], [place] [address] Apr, [facility] [address] [id number] [address] [place] [address], [place] [address] Apr, [facility] [address] [id number] [address] [place] [address], [place] [address] Mar, [facility] [address] [id number] [address] [place] [address], [place] [address] Mar, [facility] [address] [id number] [address] [place] [address], [place] [address] Feb, [facility] [address] [id number] [address] [place] [address], [place] [address] Feb, [facility] [address] [id number] [address] [place] [address], [place] [address] Feb, [facility] [address] [id number] [address] [place] [address] [address] Feb, [facility] [address] [id number] [address] [place] [address], [place] [address] Feb, [facility] [address] [id number] [address] [place] [address], [place] [address] Feb, [facility] [address] [id number] [address] [place] [address], [place] [address] Feb, [facility] [address] [id number] [address] [place] [address], [place] [address] Feb, [facility] [address] [id number] [address] [place] [address], [place] [address] Feb, [facility] [address] [id number] [address] [place] [address], [place] [address] Jan, [facility] [address] [id number] [address] [place] [address], [place] [address] Jan, [facility] [address] [id number] [address] [place] [address], [place] [address] Jan, [facility] [address] [id number] [address] [place] [address], [place] [address] Jan, [facility] [address] [id number] [address] [place] [address], [place] [address] Jan, [facility] [address] [id number] [address] [place] [address], [place] [address] Dec, [facility] [address] [id number] [address] [place] [address] Dec, [facility] [address] [id number] [address] [place] [address], [place] [address] Nov, [facility] [address] [id number] [address] [place] [address], [place] [address] Nov, [facility] [address] [id number] [address] [place] [address], [place] [address] Oct, [facility] [address] [id number] [address] [place] [address], [place] [address] Oct, [facility] [address] [id number] [address] [place] [address], [place] [address] Oct, [facility] [address] [id number] [address] [place] [address], [place] [address] Sep, [facility] [address] [id number] [address] [place] [address], [place] [address] Sep, [facility] [address] [id number] [address] [place] [address], [place] [address] Sep, [facility] [address] [id number] [address] [place] [address], [place] [address] August, [facility] [address] [id number] [address] [place] [address], [place] [address] August, [facility] [address] [id number] [address] [place] [address], [place] [address] August, [facility] [address] [id number] [address] [place] [address], [place] [address] August, [facility] [address] [id number] [address] [place] [address], [place] [address] Jul, [facility] [address] [id number] [address] [place] [address], [place] [address] Jun, [facility] [address] [id number] [address] [place] [address], [place] [address] Jun, [facility] [address] [id number] [address] [place] [address], [place] [address] Jun, [facility] [address] [id number] [address] [place] [address], [place] [address] May, [facility] [address] [id number] [address] [place] [address], [place] [address] May, [facility] [address] [id number] [address] [place] [address], [place] [address] May, [facility] [address] [id number] [address] [place] [address], [place] [address] May, [facility] [address] [id number] [address] [place] [address], [place] [address] Apr, [facility] [address] [id number] [address] [place] [address], [place] [address] Apr, [facility] [address] [id number] [address] [place] [address], [place] [address] Apr, [facility] [address] [id number] [address] [place] [address], [place] [address] Apr, [facility] [address] [id number] [address] [place] [address], [place] [address] Apr, [facility] [address] [id number] [address] [place] [address], [place] [address] Mar, [facility] [address] [id number] [address] [place] [address], [place] [address] Mar, [facility] [address] [id number] [address] [place] [address], [place] [address] Mar, [facility] [address] [id number] [address] [place] [address], [place] [address] Mar, [facility] [address] [id number] [address] [place] [address], [place] [address] Mar, [facility] [address] [id number] [address] [place] [address] Mar, [facility] [address] [id number] [address] [place] [address], [place] [address] Mar, [facility] [address] [id number] [address] [place] [address], [place] [address] Feb, [facility] [address] [id number] [address] [place] [address], [place] [address] Feb, [facility] [address] [id number] [address] [place] [address] Feb, [facility] [address] [id number] [address] [place] [address], [place] [address] Feb, [facility] [address] [id number] [address] [place] [address] Feb, [facility] [address] [id number] [address] [place] [address], [place] [address] Feb, [facility] [address] [id number] [address] [place] [address], [place] [address] Feb, [facility] [address] [id number] [address] [place] [address], [place] [address] Feb, [facility] [address] [id number] [address] [place] [address], [place] [address] Jan, [facility] [address] [id number] [address] [place] [address] Jan, [facility] [address] [id number] [address] [place] [address], [place] [address] Jan, [facility] [address] [id number] [address] [place] [address], [place] [address] Jan, [facility] [address] [id number] [address] [place] [address], [place] [address] 27 Dec, 2011 [facility] [address] [id number] [address] [place] [address], [place] [address] 25 Dec, 2011 [facility] [address] [id number] [address] [place] [address] 18 Dec, 2011 [facility] [address] [id number] [address] [place] [address], [place] [address] 13 Dec, 2011 [facility] [address] [id number] [address] [place] [address], [place] [address] 11 Dec, 2011 [facility] [address] [id number] [address] [place] [address], [place] [address] Oct, [facility] [address] [id number] [address] [place] [address], [place] [address] Oct, [facility] [address] [id number] [address] [place] [address], [place] [address] Sep, [facility] [address] [id number] [address] [place] [address], [place] [address] Sep, [facility] [address] [id number] [address] [place] [address], [place] [address] August, [facility] [address] [id number] [address] [place] [address], [place] [address] August, [facility] [address] [id number] [address] [place] [address], [place] [address] Jul, [facility] [address] [id number] [address] [place] [address], [place] [address] Jun, [facility] [address] [id number] [address] [place] [address], [place] [address] Jun, [facility] [address] [id number] [address] [place] [address], [place] [address] Jun, [facility] [address] [id number] [address] [place] [address], [place] [address] Jun, [facility] [address] [id number] [address] [place] [address], [place] [address] Jun, [facility] [address] [id number] [address] [place] [address], [place] [address] 24 May, 2011 [facility] [address] [id number] [address] [place] [address], [place] [address] May, [facility] [address] [id number] [address] [place] [address], [place] [address] May, [facility] [address] [id number] [address] [place] [address], [place] [address] 14 May, 2011 [facility] [address] [id number] [address] [place] [address], [place] [address] 13 May, 2011 [facility] [address] [id number] [address] [place] [address], [place] [address] May, [facility] [address] [id number] [address] [place] [address], [place] [address] 02 May, 2011 [facility] [address] [id number] [address] [place] [address], [place] [address] May, [facility] [address] [id number] [address] [place] [address], [place] [address] Apr, [facility] [address] [id number] [address] [place] [address], [place] [address] Mar, [facility] [address] [id number] [address] [place] [address], [place] [address] Mar, [facility] [address] [id number] [address] [place] [address], [place] [address] Mar, [facility] [address] [id number] [address] [place] [address], [place] [address] Mar, [facility] [address] [id number] [address] [place] [address], [place] [address] Mar, [facility] [address] [id number] [address] [place] [address], [place] [address] Jan, [facility] [address] [id number] [address] [place] [address], [place] [address] Jan, [facility] [address] [id number] [address] [place] [address] Jan, [facility] [address] [id number] [address] [place] [address], [place] [address] August, [facility] [address] [id number] [address] [place] [address], [place] [address] Mar, [facility] [address] [id number] [address] [place] [address] Feb, [facility] [address] [facility] [id number] [address] [place] [address] Jan, [facility] [address] [facility] [id number] [address] [place] [address] Jan, IMMUNIZATIONS No Known Immunizations SOCIAL HISTORY [...]
--- OUTSIDE RECORDS SUMMARY | 2019-08-20 15:59 | XMS REPORT ---
Author Author Talia HUDSON Organization [facility] Address [address] [place] [address] Care Team Providers Care Support Services Rep Name Role Phone KATIE HUDSON Unavailable PROBLEMS Type Condition ICD9-CM Code [id number] Code Onset Dates Condition S tatus SNOMED Code Problem CAD (coronary artery disease) I25.10 Active 85838107 Problem Osteoarthritis of knees, bilateral M17.0 Active 766877640 Problem Essential hypertension I10 Active 92613255 Problem Diabetes E11.9 Active 85778207 Problem Arthritis M19.90 Active 7583151 Problem Morbid obesity E66.01 Active 66186 6002 Problem Hyperlipemia E78.5 Active 5165222 4 ALLERGIES No Information ENCOUNTERS Encounter Location Date Diagnosis [facility] [address] [facility]NOTE [facility]] [id number] [address] [place] [address] Jul, [facility] [address] [facility]NOTE [facility]] [id number] [address] [place] [address] Jul, [facility] [address] [facility]NOTE [facility]] [id number] [address] [place] [address] Jul, [facility] [address] [facility]] [id number] [address] [place] [address] 16 Jun, 2019 [facility] [address] [facility]] [id number] [address] [place] [address] Jun, [facility] [address] [facility]] [id number] [address] [place] [address] 12 Jun, 2019 Diabetes E11.9 ; Skin infect ion L08.9 and Essential hypertension I10 [facility] [address] [facility]NOTE [facility]] [id number] [address] [place] [address] 05 May, 2019 [facility] [address] [facility]] [id number] [address] [place] [address] May, [facility] [address] [facility]] [id number] [address] [place] [address] May, [facility] [address] [facility]] [id number] [address] [place] [address] Apr, [facility] [address] [facility]] [id number] [address] [place] [address] Mar, [facility] [address] [address] Mar, [facility] [address] [place] [id number] [place] [address] Feb, [facility] [address] [place] [id number] [place] [address] Nov, [facility] [address] [address] Nov, Diabetes E11.9 and Syncope, unspecified syncope type R55 [facility] [address] [place] [id number] [address] [place] [address] Nov, Osteoarthritis of knees, natan ateral M17.0 [facility] [address] [place] [id number] [address] [place] [address] Oct, Diabetes E11.9 ; CAD (guardado ry artery disease) I25.10 ; Essential hypertension I10 and Hyperlipemia E78.5 [facility] [id number] [place] [address] Sep, [facility] [address] [place] [id number] [address] [place] [address] Jul, [facility] [address] [address] Apr, [facility] [address] [place] [id number] [address] [place] [address] Mar, Pustular lesion L08.9 and En counter for immunization Z23 [facility] [address] [facility]] [id number] [address] [place] [address] Feb, [facility] [address] [facility]] [id number] [address] [place] [address] Dec, [facility] [address] [facility]] [id number] [address] [place] [address] Dec, [facility] [address] [facility]] [id number] [address] [place] [address] Dec, Diabetes E11.9 ; Essential h ypertension I10 ; Arthritis M19.90 ; Urinary frequency R35.0 ; Routine adult health maintenance Z00.00 and BMI 45.0- 49.9, adult Z68.42 [facility] [address] [facility]] [id number] [address] [place] [address] 18 Dec, 2017 [facility] [address] [place] [id number] [address] [place] [address] 04 Dec, 2017 [facility] [address] [facility]] [id number] [address] [place] [address] Oct, [facility] [address] [place] [id number] [address] [place] [address] Sep, Diabetes E11.9 [facility] [address] [facility]] [id number] [address] [place] [address] Sep, Diabetes E11.9 ; Hyperlipemi a E78.5 ; CAD (coronary artery disease) I25.10 ; Essential hypertension I10 and BMI 45.0-49.9, adult Z68.42 [facility] [address] [facility]] [id number] [address] [place] [address] Sep, [facility] [address] [facility]] [id number] [address] [place] [address] August, [facility] [address] [facility]] [id number] [address] [place] [address] Jan, Dysuria R30.0 [facility] [address] [address] Jan, Dysuria R30.0 [place] [address] [address] Jan, Osteoarthritis of knees, natan ateral M17.0 [facility] [address] [address] Nov, Dysuria R30.0 [place] [address] [address] Oct, Blood in urine R31.9 ; Dysur ia R30.0 ; Pharyngeal dysphagia R13.13 ; Acute cystitis with hematuria N30.01 ; CAD (coronary artery disease) I25.10 and Diabetes E11.9 [place] [address] [address] Oct, [place] [address] [address] Sep, Arthritis M19.90 ; Blood in urine R31.9 ; Diabetes E11.9 ; Acute cystitis with hematuria N30.01 and Pharyngoesophageal dysphagia R13.14 [place] [address] [address] Sep, Osteoarthritis of knees, natan ateral M17.0 [place] [address] [address] Sep, Osteoarthritis of knees, natan ateral M17.0 [place] [address] [address] August, Arthritis M19.90 [place] [address] [address] Jul, Arthritis M19.90 [place] [address] [place] [id number] [place] [address] Jun, Arthritis M19.90 [place] [address] [place] [id number] [place] [address] Jun, [facility] [address] [id number] [address] [place] [address] Jun, [facility] [address] [id number] [address] [place] [address] May, Diabetes E11.9 ; Dysuria R30 .0 and Arthritis M19.90 [facility] [address] [id number] [address] [place] [address] Apr, [facility] [address] [id number] [address] [place] [address] Apr, Arthritis M19.90 [facility] [address] [id number] [address] [place] [address] Mar, Arthritis M19.90 [facility] [address] [id number] [address] [place] [address] Feb, [facility] [address] [id number] [address] [place] [address] Jan, [facility] [address] [id number] [address] [place] [address] Dec, Diabetes E11.9 and Arthritis M19.90 [facility] [address] [id number] [address] [place] [address] Dec, [facility] [address] [id number] [address] [place] [address] Nov, Arthritis M19.90 [facility] [address] [id number] [address] [place] [address] Nov, [facility] [address] [id number] [address] [place] [address] Oct, Arthritis M19.90 [facility] [address] [facility]] [id number] [address] [place] [address] Sep, Osteoarthritis of knees, natan ateral M17.0 [facility] [address] [facility]] [id number] [address] [place] [address] Sep, Osteoarthritis of knees, natan ateral M17.0 [facility] [address] [facility]] [id number] [address] [place] [address] August, Arthritis M19.90 [facility] [address] [facility]] [id number] [address] [place] [address] August, [facility] [address] [facility]] [id number] [address] [place] [address] Jul, Hyperlipemia E78.5 [place] [address] [facility]] [id number] [address] [place] [address] Jul, Encounter for well woman exa m Z01.419 ; Morbid obesity E66.01 ; Encounter for screening for malignant neoplasm of cervix Z12.4 and Encounter for screening mammogram for breast cancer Z12.31 [place] [address] [place] [id number] [address] [place] [address] Jul, Arthritis M19.90 ; Diabetes E11.9 ; Blood in urine R31.9 and UTI (urinary tract infection) N39.0 [place] [address] [facility]] [id number] [address] [place] [address] Jul, [place] [address] [facility] 3] [id number] [address] [place] [address] Jun, Arthritis M19.90 [place] [address] [facility] 3] [id number] [address] [place] [address] May, Arthritis M19.90 [facility] [address] [facility]] [id number] [address] [place] [address] May, [facility] [address] [facility]] [id number] [address] [place] [address] Apr, [facility] [address] [facility]] [id number] [address] [place] [address] Apr, Arthritis M19.90 ; Diabetes E11.9 and Morbid obesity E66.01 [facility] [address] [id number] [address] [place] [address] Apr, [facility] [address] [id number] [address] [place] [address] 18 Apr, 2015 Dyspareunia N94.1 [facility] [address] [id number] [address] [place] [address] 15 Apr, 2015 [facility] [address] [id number] [address] [place] [address] 15 Apr, 2015 [facility] [address] [id number] [address] [place] [address] 14 Apr, 2015 Osteoarthritis of knees, natan ateral M17.0 [facility] [address] [id number] [address] [place] [address] 14 Apr, 2015 Diabetes E11.9 and CAD (elysia nary artery disease) I25.10 [facility] [address] [id number] [address] [place] [address] 08 Mar, 2015 [facility] [address] [id number] [address] [place] [address] Feb, [facility] [address] [id number] [address] [place] [address] 30 Jan, 2015 [facility] [address] [id number] [address] [place] [address] Jan, [facility] [address] [id number] [address] [place] [address] 15 Jan, 2015 [facility] [address] [id number] [address] [place] [address] 15 Jan, 2015 Osteoarthritis of knees, natan ateral M17.0 [facility] [address] [id number] [address] [place] [address] 30 Dec, 2014 [facility] [address] [id number] [address] [place] [address] Dec, [facility] [address] [id number] [address] [place] [address], [place] [address] Dec, [facility] [address] [id number] [address] [place] [address], [place] [address] Dec, Diabetes mellitus 250.00 and UTI (urinary tract infection) 599.0 [facility] [address] [id number] [address] [place] [address], [place] [address] Dec, [facility] [address] [id number] [address] [place] [address], [place] [address] Nov, [facility] [address] [id number] [address] [place] [address], [place] [address] Oct, [facility] [address] [id number] [address] [place] [address], [place] [address] Oct, [facility] [address] [id number] [address] [place] [address], [place] [address] Oct, [facility] [address] [id number] [address] [place] [address], [place] [address] Oct, [facility] [address] [id number] [address] [place] [address], [place] [address] Oct, [facility] [address] [id number] [address] [place] [address], [place] [address] Sep, [facility] [address] [id number] [address] [place] [address], [place] [address] August, [facility] [address] [id number] [address] [place] [address], [place] [address] August, [facility] [address] [id number] [address] [place] [address], [place] [address] August, [facility] [address] [id number] [address] [place] [address], [place] [address] Jul, [facility] [address] [id number] [address] [place] [address], [place] [address] Jul, [facility] [address] [id number] [address] [place] [address], [place] [address] Jul, [facility] [address] [id number] [address] [place] [address], [place] [address] Jun, [facility] [address] [id number] [address] [place] [address], [place] [address] Jun, [facility] [address] [id number] [address] [place] [address], [place] [address] Jun, [facility] [address] [id number] [address] [place] [address], [place] [address] Jun, [facility] [address] [id number] [address] [place] [address], [place] [address] Jun, [facility] [address] [id number] [address] [place] [address], [place] [address] Jun, [facility] [address] [id number] [address] [place] [address], [place] [address] Jun, [facility] [address] [id number] [address] [place] [address], [place] [address] Jun, [facility] [address] [id number] [address] [place] [address], [place] [address] May, [facility] [address] [id number] [address] [place] [address], [place] [address] May, [facility] [address] [id number] [address] [place] [address], [place] [address] May, [facility] [address] [id number] [address] [place] [address], [place] [address] May, [facility] [address] [id number] [address] [place] [address], [place] [address] May, [facility] [address] [id number] [address] [place] [address], [place] [address] May, [facility] [address] [id number] [address] [place] [address], [place] [address] May, 2014 [facility] [address] [id number] [address] [place] [address], [place] [address] May, 2014 [facility] [address] [id number] [address] [place] [address], [place] [address] May, 2014 [facility] [address] [id number] [address] [place] [address], [place] [address] May, 2014 [facility] [address] [id number] [address] [place] [address], [place] [address] May, 2014 [facility] [address] [id number] [address] [place] [address], [place] [address] May, 2014 [facility] [address] [id number] [address] [place] [address], [place] [address] Apr, [facility] [address] [id number] [address] [place] [address], [place] [address] Apr, [facility] [address] [id number] [address] [place] [address], [place] [address] Mar, [facility] [address] [id number] [address] [place] [address], [place] [address] Mar, [facility] [address] [id number] [address] [place] [address], [place] [address] Mar, [facility] [address] [id number] [address] [place] [address], [place] [address] Mar, [facility] [address] [id number] [address] [place] [address], [place] [address] Mar, [facility] [address] [id number] [address] [place] [address], [place] [address] Mar, [facility] [address] [id number] [address] [place] [address], [place] [address] Feb, [facility] [address] [id number] [address] [place] [address], [place] [address] Feb, [facility] [address] [id number] [address] [place] [address], [place] [address] Feb, [facility] [address] [id number] [address] [place] [address], [place] [address] Feb, [facility] [address] [id number] [address] [place] [address], [place] [address] Feb, [facility] [address] [id number] [address] [place] [address], [place] [address] Feb, [facility] [address] [id number] [address] [place] [address], [place] [address] Feb, [facility] [address] [id number] [address] [place] [address], [place] [address] Feb, [facility] [address] [id number] [address] [place] [address], [place] [address] Feb, [facility] [address] [id number] [address] [place] [address], [place] [address] Jan, [facility] [address] [id number] [address] [place] [address], [place] [address] Jan, [facility] [address] [id number] [address] [place] [address] Jan, [facility] [address] [id number] [address] [place] [address] Jan, [facility] [address] [id number] [address] [place] [address] Jan, [facility] [address] [id number] [address] [place] [address], [place] [address] Jan, [facility] [address] [id number] [address] [place] [address] Jan, [facility] [address] [id number] [address] [place] [address] Jan, [facility] [address] [id number] [address] [place] [address] Jan, [facility] [address] [id number] [address] [place] [address], [place] [address] Jan, [facility] [address] [id number] [address] [place] [address], [place] [address] Dec, [facility] [address] [id number] [address] [place] [address], [place] [address] Dec, [facility] [address] [id number] [address] [place] [address], [place] [address] Dec, [facility] [address] [id number] [address] [place] [address], [place] [address] Dec, [facility] [address] [id number] [address] [place] [address], [place] [address] Nov, [facility] [address] [id number] [address] [place] [address], [place] [address] Nov, [facility] [address] [id number] [address] [place] [address], [place] [address] Nov, [facility] [address] [id number] [address] [place] [address], [place] [address] Nov, [facility] [address] [id number] [address] [place] [address], [place] [address] Nov, [facility] [address] [id number] [address] [place] [address], [place] [address] Nov, [facility] [address] [id number] [address] [place] [address], [place] [address] Nov, [facility] [address] [id number] [address] [place] [address], [place] [address] Nov, [facility] [address] [id number] [address] [place] [address], [place] [address] Nov, [facility] [address] [id number] [address] [place] [address], [place] [address] Oct, [facility] [address] [id number] [address] [place] [address] Oct, [facility] [address] [id number] [facility] [place] [address] Sep, [facility] [address] [id number] [address] [place] [address] Sep, [facility] [address] [id number] [address] [place] [address] Sep, [facility] [address] [id number] [address] [place] [address] Sep, [facility] [address] [id number] [address] [place] [address], [place] [address] Sep, [facility] [address] [id number] [address] [place] [address], [place] [address] Sep, [facility] [address] [id number] [address] [place] [address], [place] [address] Sep, [facility] [address] [id number] [address] [place] [address], [place] [address] Sep, [facility] [address] [id number] [address] [place] [address], [place] [address] Sep, [facility] [address] [id number] [address] [place] [address], [place] [address] Sep, [facility] [address] [id number] [address] [place] [address], [place] [address] Sep, [facility] [address] [id number] [address] [place] [address], [place] [address] Sep, [facility] [address] [id number] [address] [place] [address], [place] [address] Sep, [facility] [address] [id number] [address] [place] [address], [place] [address] Sep, [facility] [address] [id number] [address] [place] [address], [place] [address] August, [facility] [address] [id number] [address] [place] [address], [place] [address] August, [facility] [address] [id number] [address] [place] [address], [place] [address] August, [facility] [address] [id number] [address] [place] [address], [place] [address] August, [facility] [address] [id number] [address] [place] [address], [place] [address] Jul, [facility] [address] [id number] [address] [place] [address], [place] [address] Jul, [facility] [address] [id number] [address] [place] [address], [place] [address] Jul, [facility] [address] [id number] [address] [place] [address], [place] [address] Jul, [facility] [address] [id number] [address] [place] [address], [place] [address] Jun, [facility] [address] [id number] [address] [place] [address], [place] [address] Jun, [facility] [address] [id number] [address] [place] [address], [place] [address] May, [facility] [address] [id number] [address] [place] [address] [address] May, [facility] [address] [id number] [address] [place] [address], [place] [address] May, [facility] [address] [id number] [address] [place] [address], [place] [address] May, [facility] [address] [id number] [address] [place] [address], [place] [address] May, [facility] [address] [id number] [address] [place] [address], [place] [address] May, [facility] [address] [id number] [address] [place] [address], [place] [address] May, [facility] [address] [id number] [address] [place] [address], [place] [address] May, [facility] [address] [id number] [address] [place] [address], [place] [address] May, [facility] [address] [id number] [address] [place] [address], [place] [address] Apr, [facility] [address] [id number] [address] [place] [address], [place] [address] Apr, [facility] [address] [id number] [address] [place] [address], [place] [address] Apr, [facility] [address] [id number] [address] [place] [address], [place] [address] Apr, [facility] [address] [id number] [address] [place] [address], [place] [address] Apr, [facility] [address] [id number] [address] [place] [address], [place] [address] Mar, [facility] [address] [id number] [address] [place] [address], [place] [address] Mar, [facility] [address] [id number] [address] [place] [address], [place] [address] Feb, [facility] [address] [id number] [address] [place] [address], [place] [address] Feb, [facility] [address] [id number] [address] [place] [address], [place] [address] Feb, [facility] [address] [id number] [address] [place] [address], [place] [address] Feb, [facility] [address] [id number] [address] [place] [address], [place] [address] Feb, [facility] [address] [id number] [address] [place], [place] [address] [address] Feb, [facility] [address] [id number] [address] [place] [address], [place] [address] Feb, [facility] [address] [id number] [address] [place] [address], [place] [address] Feb, [facility] [address] [id number] [address] [place] [address], [place] [address] Feb, [facility] [address] [id number] [address] [place] [address], [place] [address] Jan, [facility] [address] [id number] [address] [place] [address], [place] [address] Jan, [facility] [address] [id number] [address] [place] [address], [place] [address] Jan, [facility] [address] [id number] [address] [place] [address], [place] [address] Jan, [facility] [address] [id number] [address] [place] [address], [place] [address] Jan, [facility] [address] [id number] [address] [place] [address], [place] [address] Dec, [facility] [address] [id number] [address] [place] [address], [place] [address] Dec, [facility] [address] [id number] [address] [place] [address], [place] [address] Nov, [facility] [address] [id number] [address] [place] [address], [place] [address] Nov, [facility] [address] [id number] [address] [place] [address], [place] [address] Oct, [facility] [address] [id number] [address] [place] [address], [place] [address] Oct, [facility] [address] [id number] [address] [place] [address], [place] [address] Oct, [facility] [address] [id number] [address] [place] [address], [place] [address] Sep, [facility] [address] [id number] [address] [place] [address], [place] [address] Sep, [facility] [address] [id number] [address] [place] [address], [place] [address] Sep, [facility] [address] [id number] [address] [place] [address], [place] [address] August, [facility] [address] [id number] [address] [place] [address], [place] [address] August, [facility] [address] [id number] [address] [place] [address], [place] [address] August, [facility] [address] [id number] [address] [place] [address], [place] [address] August, [facility] [address] [id number] [address] [place] [address], [place] [address] Jul, [facility] [address] [id number] [address] [place] [address], [place] [address] Jun, [facility] [address] [id number] [address] [place] [address], [place] [address] Jun, [facility] [address] [id number] [address] [place] [address], [place] [address] Jun, [facility] [address] [id number] [address] [place] [address], [place] [address] May, [facility] [address] [id number] [address] [place] [address], [place] [address] May, [facility] [address] [id number] [address] [place] [address], [place] [address] May, [facility] [address] [id number] [address] [place] [address], [place] [address] May, [facility] [address] [id number] [address] [place] [address], [place] [address] Apr, [facility] [address] [id number] [address] [place] [address], [place] [address] Apr, [facility] [address] [id number] [address] [place] [address], [place] [address] 15 Apr, 2012 [facility] [address] [id number] [address] [place] [address], [place] [address] 14 Apr, 2012 [facility] [address] [id number] [address] [place] [address], [place] [address] Apr, [facility] [address] [id number] [address] [place] [address], [place] [address] Mar, [facility] [address] [id number] [address] [place] [address], [place] [address] Mar, [facility] [address] [id number] [address] [place] [address], [place] [address] Mar, [facility] [address] [id number] [address] [place] [address], [place] [address] Mar, [facility] [address] [id number] [address] [place] [address], [place] [address] Mar, [facility] [address] [id number] [address] [place] [address], [place] [address] Mar, [facility] [address] [id number] [address] [place] [address], [place] [address] Mar, [facility] [address] [id number] [address] [place] [address], [place] [address] Feb, [facility] [address] [id number] [address] [place] [address], [place] [address] Feb, [facility] [address] [id number] [address] [place] [address], [place] [address] Feb, [facility] [address] [id number] [address] [place] [address], [place] [address] Feb, [facility] [address] [id number] [address] [place] [address] Feb, [facility] [address] [id number] [address] [place] [address], [place] [address] Feb, [facility] [address] [id number] [address] [place] [address] Feb, [facility] [address] [id number] [address] [place] [address], [place] [address] Feb, [facility] [address] [id number] [address] [place] [address], [place] [address] Jan, [facility] [address] [id number] [address] [place] [address], [place] [address] Jan, [facility] [address] [id number] [address] [place] [address], [place] [address] Jan, [facility] [address] [id number] [address] [place] [address], [place] [address] Jan, [facility] [address] [id number] [address] [place] [address], [place] [address] 27 Dec, 2011 [facility] [address] [id number] [address] [place] [address], [place] [address] 25 Dec, 2011 [facility] [address] [id number] [address] [place] [address], [place] [address] 18 Dec, 2011 [facility] [address] [id number] [address] [place] [address], [place] [address] 13 Dec, 2011 [facility] [address] [id number] [address] [place] [address] 11 Dec, 2011 [facility] [address] [id number] [address] [place] [address], [place] [address] Oct, [facility] [address] [id number] [address] [place] [address], [place] [address] Oct, [facility] [address] [id number] [address] [place] [address], [place] [address] Sep, [facility] [address] [id number] [address] [place] [address], [place] [address] Sep, [facility] [address] [id number] [address] [place] [address], [place] [address] August, [facility] [address] [id number] [address] [place] [address], [place] [address] August, [facility] [address] [id number] [address] [place] [address], [place] [address] Jul, [facility] [address] [id number] [address] [place] [address], [place] [address] Jun, [facility] [address] [id number] [address] [place] [address], [place] [address] Jun, [facility] [address] [id number] [address] [place] [address], [place] [address] Jun, [facility] [address] [id number] [address] [place] [address], [place] [address] Jun, [facility] [address] [id number] [address] [place] [address], [place] [address] Jun, [facility] [address] [id number] [address] [place] [address], [place] [address] 24 May, 2011 [facility] [address] [id number] [address] [place] [address], [place] [address] May, [facility] [address] [id number] [address] [place] [address], [place] [address] 20 May, 2011 [facility] [address] [id number] [address] [place] [address], [place] [address] 14 May, 2011 [facility] [address] [id number] [address] [place] [address], [place] [address] 13 May, 2011 [facility] [address] [id number] [address] [place] [address], [place] [address] 03 May, 2011 [facility] [address] [id number] [address] [place] [address] May, [facility] [address] [id number] [address] [place] [address] May, [facility] [address] [id number] [address] [place] [address] Apr, [facility] [address] [id number] [address] [place] [address] Mar, [facility] [address] [id number] [address] [place] [address] Mar, [facility] [address] [id number] [address] [place] [address] Mar, [facility] [address] [id number] [address] [place] [address] Mar, [facility] [address] [id number] [address] [place] [address] Mar, [facility] [address] [id number] [address] [place] [address] Jan, [facility] [address] [id number] [address] [place] [address] Jan, [facility] [address] [id number] [address] [place] [address] Jan, [facility] [address] [id number] [address] [place] [address] August, [facility] [address] [id number] [address] [place] [address] Mar, [facility] [address] [id number] [address] [place] [address] Feb, [facility] [address] [id number] [address] [place] [address] 14 Jan, 2010 [facility] [address] [id number] [address] [place] [address] 11 Jan, 2010 IMMUNIZATIONS No Known Immunizations SOCIAL HISTORY Never [...]
--- OUTSIDE RECORDS SUMMARY | 2019-08-20 15:59 | XMS REPORT ---
Author Author Talia HUDSON Organization [facility] Address [address] [place] [address] Care Team Providers Care Risk Assessor Name Role Phone KATIE HUDSON Unavailable PROBLEMS Type Condition ICD9-CM Code [id number] Code Onset Dates Condition S tatus SNOMED Code Problem CAD (coronary artery disease) I25.10 Active 40888939 Problem Osteoarthritis of knees, bilateral M17.0 Active 612066312 Problem Essential hypertension I10 Active 59270666 Problem Diabetes E11.9 Active 40578014 Problem Arthritis M19.90 Active 0786989 Problem Morbid obesity E66.01 Active 36618 6002 Problem Hyperlipemia E78.5 Active 3067895 4 ALLERGIES No Information ENCOUNTERS Encounter Location Date Diagnosis [facility] [address] [facility] [id number] [address] [place] [phone] Jul, [facility] [address] [facility] [id number] [address] [place] [phone] Jul, [facility] [address] [facility] [id number] [address] [place] [phone] Jul, [facility] [address] [facility] [id number] [address] [place] [id number] 15 Jul, 2019 [facility] [address] [facility] [id number] [address] [place] [phone] Jul, [facility] [address] [facility] [id number] [address] [place] [id number] 16 Jun, 2019 [facility] [address] [facility] [id number] [address] [place] [phone] 16 Jun, 2019 [facility] [address] [facility] [id number] [address] [place] [phone] 12 Jun, 2019 Diabetes E11.9 ; Skin infect ion L08.9 and Essential hypertension I10 [facility] [address] [address] May, [facility] [address] [place] [id number] [address] [place] [phone] May, [facility] [address] [address] May, [facility] [address] [address] Apr, [facility] [address] [address] Mar, [facility] [address] [address] Mar, [facility] [address] [address] Feb, [facility] [address] [address] Nov, [facility] [address] [address] Nov, Diabetes E11.9 and Syncope, unspecified syncope type R55 [place] [address] [id number] Nov, Osteoarthritis of knees, natan ateral M17.0 [facility] [address] [address] Oct, Diabetes E11.9 ; CAD (guardado ry artery disease) I25.10 ; Essential hypertension I10 and Hyperlipemia E78.5 [facility] [address] [address] Sep, [facility] [address] [place] [id number] [place] [phone] Jul, [facility] [address] [place] [address] Apr, [facility] [address] [address] Mar, Pustular lesion L08.9 and En counter for immunization Z23 [facility] [address] [place] [id number] [place] [phone] Feb, [facility] [address] [address] Dec, [facility] [address] [place] [id number] [place] [phone] Dec, [facility] [address] [address] Dec, Diabetes E11.9 ; Essential h ypertension I10 ; Arthritis M19.90 ; Urinary frequency R35.0 ; Routine adult health maintenance Z00.00 and BMI 45.0- 49.9, adult Z68.42 [facility] [address] [address] 18 Dec, 2017 [facility] [address] [id number] Dec, [facility] [address] [address] Oct, [facility] [address] [address] Sep, Diabetes E11.9 [facility] [address] [place] [id number] [address] [place] [phone] Sep, Diabetes E11.9 ; Hyperlipemi a E78.5 ; CAD (coronary artery disease) I25.10 ; Essential hypertension I10 and BMI 45.0-49.9, adult Z68.42 [facility] [address] [place] [id number] [address] [place] [phone] Sep, [facility] [address] [address] August, [facility] [address] [facility] [id number] [address] [place] [phone] Jan, Dysuria R30.0 [facility] [address] [place] [id number] [address] [place] [phone] Jan, Dysuria R30.0 [facility] [address] [place] [id number] [address] [place] [phone] Jan, Osteoarthritis of knees, natan ateral M17.0 [facility] [address] [place] [id number] [address] [place] [phone] Nov, Dysuria R30.0 [place] [address] [place] [id number] [place] [phone] Oct, Blood in urine R31.9 ; Dysur ia R30.0 ; Pharyngeal dysphagia R13.13 ; Acute cystitis with hematuria N30.01 ; CAD (coronary artery disease) I25.10 and Diabetes E11.9 [facility] [address] [place] [id number] [address] [place] [phone] Oct, [facility] [address] [place] [id number] [place] [phone] Sep, Arthritis M19.90 ; Blood in urine R31.9 ; Diabetes E11.9 ; Acute cystitis with hematuria N30.01 and Pharyngoesophageal dysphagia R13.14 [facility] [address] [place] [id number] [address] [place] [phone] Sep, Osteoarthritis of knees, natan ateral M17.0 [facility] [address] [place] [id number] [address] [place] [phone] Sep, Osteoarthritis of knees, natan ateral M17.0 [facility] [address] [place] [id number] [address] [place] [phone] August, Arthritis M19.90 [facility] [address] [place] [id number] [address] [place] [phone] Jul, Arthritis M19.90 [facility] [address] [id number] [address] [place] [phone] Jun, Arthritis M19.90 [facility] [address] [id number] [address] [place] [phone] Jun, [facility] [address] [id number] [address] [place] [phone] Jun, [facility] [address] [id number] [address] [place] [phone] May, Diabetes E11.9 ; Dysuria R30 .0 and Arthritis M19.90 [facility] [address] [id number] [address] [place] [id number] Apr, [facility] [address] [id number] [address] [place] [id number] Apr, Arthritis M19.90 [facility] [address] [id number] [address] [place] [phone] Mar, Arthritis M19.90 [facility] [address] [id number] [address] [place] [phone] Feb, [facility] [address] [id number] [address] [place] [phone] Jan, [facility] [address] [id number] [address] [place] [phone] Dec, Diabetes E11.9 and Arthritis M19.90 [facility] [address] [id number] [address] [place] [phone] Dec, [facility] [address] [id number] [address] [place] [id number] Nov, Arthritis M19.90 [facility] [address] [id number] [address] [place] [phone] Nov, [facility] [address] [id number] [address] [place] [id number] Oct, Arthritis M19.90 [facility] [address] [id number] [address] [place] [phone] Sep, Osteoarthritis of knees, natan ateral M17.0 [facility] [address] [id number] [address] [place] [phone] Sep, Osteoarthritis of knees, natan ateral M17.0 [facility] [address] [facility] [id number] [address] [place] [id number] August, Arthritis M19.90 [facility] [address] [facility] [id number] [address] [place] [id number] August, [facility] [address] [facility] [id number] [address] [place] [id number] Jul, Hyperlipemia E78.5 [place] [address] [facility] [id number] [address] [place] [id number] Jul, Encounter for well woman exa m Z01.419 ; Morbid obesity E66.01 ; Encounter for screening for malignant neoplasm of cervix Z12.4 and Encounter for screening mammogram for breast cancer Z12.31 [place] [address] [facility] [id number] [address] [place] [phone] Jul, Arthritis M19.90 ; Diabetes E11.9 ; Blood in urine R31.9 and UTI (urinary tract infection) N39.0 [facility] [address] [facility] [id number] [address] [place] [id number] Jul, [facility] [address] [facility] [id number] [address] [place] [phone] Jun, Arthritis M19.90 [facility] [address] [facility] [id number] [address] [place] [phone] May, Arthritis M19.90 [facility] [address] [facility] [id number] [address] [place] [phone] May, [facility] [address] [id number] [address] [place] [phone] Apr, [facility] [address] [id number] [address] [place] [phone] Apr, Arthritis M19.90 ; Diabetes E11.9 and Morbid obesity E66.01 [facility] [address] [id number] [address] [place] [id number] Apr, [facility] [address] [id number] [address] [place] [phone] Apr, Dyspareunia N94.1 [facility] [address] [id number] [address] [place] [phone] Apr, [facility] [address] [id number] [address] [place] [phone] Apr, [facility] [address] [id number] [address] [place] [id number] Apr, Osteoarthritis of knees, natan ateral M17.0 [facility] [address] [id number] [address] [place] [phone] Apr, Diabetes E11.9 and CAD (elysia nary artery disease) I25.10 [facility] [address] [id number] [address] [place] [phone] Mar, [facility] [address] [id number] [address] [place] [phone] Feb, [facility] [address] [id number] [address] [place] [phone] 30 Jan, 2015 [facility] [address] [id number] [address] [place] [id number] Jan, [facility] [address] [id number] [address] [place] [phone] Jan, [facility] [address] [id number] [address] [place] [id number] Jan, Osteoarthritis of knees, natan ateral M17.0 [facility] [address] [id number] [address] [place] [address], [place] [address] Dec, [facility] [address] [id number] [address] [place] [address], [place] [address] Dec, [facility] [address] [id number] [address] [place] [id number] Dec, [facility] [address] [id number] [address] [place] [phone] Dec, Diabetes mellitus 250.00 and UTI (urinary tract infection) 599.0 [facility] [address] [id number] [address] [place] [address], [place] [address] Dec, [facility] [address] [id number] [address] [place] [id number] Nov, [facility] [address] [id number] [address] [place] [phone] Oct, [facility] [address] [id number] [address] [place] [phone] Oct, [facility] [address] [id number] [address] [place] [address], [place] [address] Oct, [facility] [address] [id number] [address] [place] [phone] Oct, [facility] [address] [id number] [address] [place] [address], [place] [address] Oct, [facility] [address] [id number] [address] [place] [phone] Sep, [facility] [address] [id number] [address] [place] [id number] August, [facility] [address] [id number] [address] [place] [id number] August, [facility] [address] [id number] [address] [place] [phone] August, [facility] [address] [id number] [address] [place] [address], [place] [address] 29 Jul, 2014 [facility] [address] [id number] [address] [place] [address], [place] [address] 14 Jul, 2014 [facility] [address] [id number] [address] [place] [address], [place] [address] Jul, [facility] [address] [id number] [address] [place] [address], [place] [address] Jun, [facility] [address] [id number] [address] [place] [address], [place] [address] 24 Jun, 2014 [facility] [address] [id number] [address] [place] [address], [place] [address] Jun, [facility] [address] [id number] [address] [place] [address], [place] [address] Jun, [facility] [address] [id number] [address] [place] [address], [place] [address] Jun, [facility] [address] [id number] [address] [place] [address], [place] [address] Jun, [facility] [address] [id number] [address] [place] [address], [place] [address] Jun, [facility] [address] [id number] [address] [place] [address], [place] [address] Jun, [facility] [address] [id number] [address] [place] [address], [place] [address] May, [facility] [address] [id number] [address] [place] [address], [place] [address] May, [facility] [address] [id number] [address] [place] [address], [place] [address] May, [facility] [address] [id number] [address] [place] [address], [place] [address] May, [facility] [address] [id number] [address] [place] [address], [place] [address] May, 2014 [facility] [address] [id number] [address] [place] [address], [place] [address] May, 2014 [facility] [address] [id number] [address] [place] [address], [place] [address] May, 2014 [facility] [address] [id number] [address] [place] [address], [place] [address] May, 2014 [facility] [address] [id number] [address] [place] [address], [place] [address] May, 2014 [facility] [address] [id number] [address] [place] [address], [place] [address] May, 2014 [facility] [address] [id number] [address] [place] [address], [place] [address] May, 2014 [facility] [address] [id number] [address] [place] [address], [place] [address] May, 2014 [facility] [address] [id number] [address] [place] [address], [place] [address] Apr, [facility] [address] [id number] [address] [place] [address], [place] [address] Apr, [facility] [address] [id number] [address] [place] [address], [place] [address] Mar, [facility] [address] [id number] [address] [place] [address], [place] [address] Mar, [facility] [address] [id number] [address] [place] [address], [place] [address] Mar, [facility] [address] [id number] [address] [place] [address], [place] [address] Mar, [facility] [address] [id number] [address] [place] [address], [place] [address] Mar, [facility] [address] [id number] [address] [place] [address], [place] [address] Mar, [facility] [address] [id number] [address] [place] [address], [place] [address] Feb, [facility] [address] [id number] [address] [place] [address], [place] [address] Feb, [facility] [address] [id number] [address] [place] [address], [place] [address] Feb, [facility] [address] [id number] [address] [place] [address], [place] [address] Feb, [facility] [address] [id number] [address] [place] [address], [place] [address] Feb, [facility] [address] [id number] [address] [place] [address], [place] [address] Feb, [facility] [address] [id number] [address] [place] [address], [place] [address] Feb, [facility] [address] [id number] [address] [place] [address], [place] [address] Feb, [facility] [address] [id number] [address] [place] [address], [place] [address] Feb, [facility] [address] [id number] [address] [place] [phone] Jan, [facility] [address] [id number] [address] [place] [phone] Jan, [facility] [address] [id number] [address] [place] [id number] Jan, [facility] [address] [id number] [address] [place] [address], [place] [address] Jan, [facility] [address] [id number] [address] [place] [address], [place] [address] Jan, [facility] [address] [id number] [address] [place] [phone] Jan, [facility] [address] [id number] [address] [place] [id number] 17 Jan, 2014 [facility] [address] [id number] [address] [place] [address], [place] [address] 17 Jan, 2014 [facility] [address] [id number] [address] [place] [address], [place] [address] Jan, [facility] [address] [id number] [address] [place] [address], [place] [address] Jan, [facility] [address] [id number] [address] [place] [address], [place] [address] 19 Dec, 2013 [facility] [address] [id number] [address] [place] [address], [place] [address] 19 Dec, 2013 [facility] [address] [id number] [address] [place] [address], [place] [address] Dec, [facility] [address] [id number] [address] [place] [address], [place] [address] Dec, [facility] [address] [id number] [address] [place] [address], [place] [address] Nov, [facility] [address] [id number] [address] [place] [address], [place] [address] Nov, [facility] [address] [id number] [address] [place] [address], [place] [address] Nov, [facility] [address] [id number] [address] [place] [address], [place] [address] Nov, [facility] [address] [id number] [address] [place] [address], [place] [address] Nov, [facility] [address] [id number] [address] [place] [address], [place] [address] Nov, [facility] [address] [id number] [address] [place] [address], [place] [address] Nov, [facility] [address] [id number] [address] [place] [address], [place] [address] Nov, [facility] [address] [id number] [address] [place] [address] Nov, [facility] [address] [id number] [address] [place] [address] Oct, [facility] [address] [id number] [address] [place] [address] Oct, [facility] [address] [id number] [address] [place] [address] Sep, [facility] [address] [id number] [address] [place] [address] Sep, [facility] [address] [id number] [address] [place] [address] Sep, [facility] [address] [id number] [address] [place] [address], [place] [address] Sep, [facility] [address] [id number] [address] [place] [address], [place] [address] Sep, [facility] [address] [id number] [address] [place] [address], [place] [address] Sep, [facility] [address] [id number] [address] [place] [address], [place] [address] Sep, [facility] [address] [id number] [address] [place] [address], [place] [address] Sep, [facility] [address] [id number] [address] [place] [address], [place] [address] Sep, [facility] [address] [id number] [address] [place] [address], [place] [address] Sep, [facility] [address] [id number] [address] [place] [address], [place] [address] Sep, [facility] [address] [id number] [address] [place] [address], [place] [address] Sep, [facility] [address] [id number] [address] [place] [address], [place] [address] Sep, [facility] [address] [id number] [address] [place] [address], [place] [address] Sep, [facility] [address] [id number] [address] [place] [address], [place] [address] August, [facility] [address] [id number] [address] [place] [address], [place] [address] August, [facility] [address] [id number] [address] [place] [address], [place] [address] August, [facility] [address] [id number] [address] [place] [address], [place] [address] August, [facility] [address] [id number] [address] [place] [address], [place] [address] Jul, [facility] [address] [id number] [address] [place] [address], [place] [address] Jul, [facility] [address] [id number] [address] [place] [address], [place] [address] Jul, [facility] [address] [id number] [address] [place] [address], [place] [address] Jul, [facility] [address] [id number] [address] [place] [address], [place] [address] Jun, [facility] [address] [id number] [address] [place] [address], [place] [address] Jun, [facility] [address] [id number] [address] [place] [address], [place] [address] May, [facility] [address] [id number] [address] [place] [address], [place] [address] May, [facility] [address] [id number] [address] [place] [address], [place] [address] May, [facility] [address] [id number] [address] [place] [address], [place] [address] May, [facility] [address] [id number] [address] [place] [address], [place] [address] May, [facility] [address] [id number] [address] [place] [address], [place] [address] May, [facility] [address] [id number] [address] [place] [address], [place] [address] May, [facility] [address] [id number] [address] [place] [address], [place] [address] May, [facility] [address] [id number] [address] [place] [address], [place] [address] May, [facility] [address] [id number] [address] [place] [address], [place] [address] Apr, [facility] [address] [id number] [address] [place] [address], [place] [address] Apr, [facility] [address] [id number] [address] [place] [address], [place] [address] Apr, [facility] [address] [id number] [address] [place] [address], [place] [address] Apr, [facility] [address] [id number] [address] [place] [address], [place] [address] Apr, [facility] [address] [id number] [address] [place] [address], [place] [address] Mar, [facility] [address] [id number] [address] [place] [address], [place] [address] Mar, [facility] [address] [id number] [address] [place] [address], [place] [address] Feb, [facility] [address] [id number] [address] [place] [address], [place] [address] Feb, [facility] [address] [id number] [address] [place] [address], [place] [address] Feb, [facility] [address] [id number] [address] [place] [address] [address] Feb, [facility] [address] [id number] [address] [place] [address], [place] [address] Feb, [facility] [address] [id number] [address] [place] [address], [place] [address] Feb, [facility] [address] [id number] [address] [place] [address], [place] [address] Feb, [facility] [address] [id number] [address] [place] [address], [place] [address] Feb, [facility] [address] [id number] [address] [place] [address], [place] [address] Feb, [facility] [address] [id number] [address] [place] [address], [place] [address] Jan, [facility] [address] [id number] [address] [place] [address], [place] [address] Jan, [facility] [address] [id number] [address] [place] [address], [place] [address] Jan, [facility] [address] [id number] [address] [place] [address], [place] [address] Jan, [facility] [address] [id number] [address] [place] [address], [place] [address] Jan, [facility] [address] [id number] [address] [place] [address], [place] [address] Dec, [facility] [address] [id number] [address] [place] [id number] Dec, [facility] [address] [id number] [address] [place] [address], [place] [address] Nov, [facility] [address] [id number] [address] [place] [address], [place] [address] Nov, [facility] [address] [id number] [address] [place] [address], [place] [address] Oct, [facility] [address] [id number] [address] [place] [address], [place] [address] Oct, [facility] [address] [id number] [address] [place] [address], [place] [address] Oct, [facility] [address] [id number] [address] [place] [address], [place] [address] Sep, [facility] [address] [id number] [address] [place] [address], [place] [address] Sep, [facility] [address] [id number] [address] [place] [address], [place] [address] Sep, [facility] [address] [id number] [address] [place] [address], [place] [address] August, [facility] [address] [id number] [address] [place] [address], [place] [address] August, [facility] [address] [id number] [address] [place] [address], [place] [address] August, [facility] [address] [id number] [address] [place] [address], [place] [address] August, [facility] [address] [id number] [address] [place] [address], [place] [address] Jul, [facility] [address] [id number] [address] [place] [address], [place] [address] Jun, [facility] [address] [id number] [address] [place] [address], [place] [address] Jun, [facility] [address] [id number] [address] [place] [address], [place] [address] Jun, [facility] [address] [id number] [address] [place] [address], [place] [address] May, [facility] [address] [id number] [address] [place] [address], [place] [address] May, [facility] [address] [id number] [address] [place] [address], [place] [address] May, [facility] [address] [id number] [address] [place] [address], [place] [address] May, [facility] [address] [id number] [address] [place] [address], [place] [address] Apr, [facility] [address] [id number] [address] [place] [address], [place] [address] Apr, [facility] [address] [id number] [address] [place] [address], [place] [address] Apr, [facility] [address] [id number] [address] [place] [address], [place] [address] Apr, [facility] [address] [id number] [address] [place] [address], [place] [address] Apr, [facility] [address] [id number] [address] [place] [address], [place] [address] Mar, [facility] [address] [id number] [address] [place] [address], [place] [address] Mar, [facility] [address] [id number] [address] [place] [address], [place] [address] Mar, [facility] [address] [id number] [address] [place] [address], [place] [address] Mar, [facility] [address] [id number] [address] [place] [address], [place] [address] Mar, [facility] [address] [id number] [address] [place] [address] Mar, [facility] [address] [id number] [address] [place] [address], [place] [address] Mar, [facility] [address] [id number] [address] [place] [address], [place] [address] Feb, [facility] [address] [id number] [address] [place] [address], [place] [address] Feb, [facility] [address] [id number] [address] [place] [id number] Feb, [facility] [address] [id number] [address] [place] [address], [place] [address] Feb, [facility] [address] [id number] [address] [place] [address] Feb, [facility] [address] [id number] [address] [place] [address], [place] [address] Feb, [facility] [address] [id number] [address] [place] [address], [place] [address] Feb, [facility] [address] [id number] [address] [place] [address], [place] [address] Feb, [facility] [address] [id number] [address] [place] [address], [place] [address] Jan, [facility] [address] [id number] [address] [place] [address] Jan, [facility] [address] [id number] [address] [place] [address], [place] [address] Jan, [facility] [address] [id number] [address] [place] [address], [place] [address] Jan, [facility] [address] [id number] [address] [place] [address], [place] [address] 27 Dec, 2011 [facility] [address] [id number] [address] [place] [address], [place] [address] 25 Dec, 2011 [facility] [address] [id number] [address] [place] [address] 18 Dec, 2011 [facility] [address] [id number] [address] [place] [address], [place] [address] 13 Dec, 2011 [facility] [address] [id number] [address] [place] [address], [place] [address] 11 Dec, 2011 [facility] [address] [id number] [address] [place] [address], [place] [address] Oct, [facility] [address] [id number] [address] [place] [address], [place] [address] Oct, [facility] [address] [id number] [address] [place] [address], [place] [address] Sep, [facility] [address] [id number] [address] [place] [address], [place] [address] Sep, [facility] [address] [id number] [address] [place] [address], [place] [address] August, [facility] [address] [id number] [address] [place] [address], [place] [address] August, [facility] [address] [id number] [address] [place] [address], [place] [address] Jul, [facility] [address] [id number] [address] [place] [address], [place] [address] Jun, [facility] [address] [id number] [address] [place] [address], [place] [address] Jun, [facility] [address] [id number] [address] [place] [address], [place] [address] Jun, [facility] [address] [id number] [address] [place] [address], [place] [address] Jun, [facility] [address] [id number] [address] [place] [address], [place] [address] Jun, [facility] [address] [id number] [address] [place] [address], [place] [address] 24 May, 2011 [facility] [address] [id number] [address] [place] [address], [place] [address] May, [facility] [address] [id number] [address] [place] [address], [place] [address] May, [facility] [address] [id number] [address] [place] [address], [place] [address] 14 May, 2011 [facility] [address] [id number] [address] [place] [address], [place] [address] 13 May, 2011 [facility] [address] [id number] [address] [place] [address], [place] [address] May, [facility] [address] [id number] [address] [place] [address], [place] [address] 02 May, 2011 [facility] [address] [id number] [address] [place] [address], [place] [address] May, [facility] [address] [id number] [address] [place] [address], [place] [address] Apr, [facility] [address] [id number] [address] [place] [address], [place] [address] Mar, [facility] [address] [id number] [address] [place] [address], [place] [address] Mar, [facility] [address] [id number] [address] [place] [address], [place] [address] Mar, [facility] [address] [id number] [address] [place] [address], [place] [address] Mar, [facility] [address] [id number] [address] [place] [address], [place] [address] Mar, [facility] [address] [id number] [address] [place] [address], [place] [address] Jan, [facility] [address] [id number] [address] [place] [address], [place] [address] Jan, [facility] [address] [id number] [address] [place] [address] Jan, [facility] [address] [id number] [address] [place] [address], [place] [address] August, [facility] [address] [id number] [address] [place] [address], [place] [address] Mar, [facility] [address] [id number] [address] [place] [id number] Feb, [facility] [address] [facility] [id number] [address] [place] [id number] Jan, [facility] [address] [facility] [id number] [address] [place] [id number] Jan, IMMUNIZATIONS No Known Immunizations SOCIAL HISTORY [...]
--- OUTSIDE RECORDS SUMMARY | 2019-08-20 16:00 | XMS REPORT ---
Author Author Talia HUDSON Organization [facility] [place] Address [address] [place] [address] Care Team Providers Care Clinical Programmer Name Role Phone KATIE HUDSON Unavailable PROBLEMS Type Condition ICD9-CM Code YAD13-DR Code Onset Dates Condition S tatus SNOMED Code Problem CAD (coronary artery disease) I25.10 Active 66728597 Problem Osteoarthritis of knees, bilateral M17.0 Active 541236886 Problem Essential hypertension I10 Active 04070524 Problem Diabetes E11.9 Active 84095770 Problem Arthritis M19.90 Active 7555627 Problem Morbid obesity E66.01 Active 86570 6002 Problem Hyperlipemia E78.5 Active 3235220 4 ALLERGIES No Information ENCOUNTERS Encounter Location Date Diagnosis [facility] [place] [address] [facility] [id number] [address] [place] [id number] Jul, [facility] [place] [address] [facility] [id number] [address] [place] [id number] Jul, [facility] [place] [address] [facility] [id number] [address] [place] [id number] Jul, [facility] [place] [address] [facility] [id number] [address] [place] [id number] 16 Jun, 2019 [facility] [place] [address] [facility] [id number] [address] [place] [id number] Jun, [facility] [place] [address] [facility] [id number] [address] [place] [id number] 12 Jun, 2019 Diabetes E11.9 ; Skin infect ion L08.9 and Essential hypertension I10 [facility] [place] [address] [facility] [id number] [address] [place] [id number] 05 May, 2019 [facility] [place] [address] [facility] [id number] [address] [place] [id number] May, [facility] [place] [address] [facility] [id number] [address] [place] [phone] May, [facility] [place] [address] [facility] [id number] [address] [place] [id number] Apr, [facility] [place] [address] [facility] [id number] [address] [place] [id number] Mar, [facility] [place] [address] [id number] Mar, [facility] [place] [address] [place] [id number] [place] [id number] Feb, [facility] [place] [address] [place] [id number] [place] [id number] Nov, [facility] [place] [address] [id number] Nov, Diabetes E11.9 and Syncope, unspecified syncope type R55 [facility] [place] [address] [place] [id number] [address] [place] [id number] Nov, Osteoarthritis of knees, natan ateral M17.0 [facility] [place] [address] [place] [id number] [address] [place] [id number] Oct, Diabetes E11.9 ; CAD (guardado ry artery disease) I25.10 ; Essential hypertension I10 and Hyperlipemia E78.5 [facility] [place] [id number] [place] [phone] Sep, [facility] [place] [address] [place] [id number] [address] [place] [id number] Jul, [facility] [place] [address] [id number] Apr, [facility] [place] [address] [place] [id number] [address] [place] [id number] Mar, Pustular lesion L08.9 and En counter for immunization Z23 [facility] [place] [address] [facility] [id number] [address] [place] [id number] Feb, [facility] [place] [address] [facility] [id number] [address] [place] [phone] Dec, [facility] [place] [address] [facility] [id number] [address] [place] [id number] Dec, [facility] [place] [address] [facility] [id number] [address] [place] [id number] Dec, Diabetes E11.9 ; Essential h ypertension I10 ; Arthritis M19.90 ; Urinary frequency R35.0 ; Routine adult health maintenance Z00.00 and BMI 45.0- 49.9, adult Z68.42 [facility] [place] [address] [facility] [id number] [address] [place] [id number] 18 Dec, 2017 [facility] [place] [address] [place] [id number] [address] [place] [id number] 04 Dec, 2017 [facility] [place] [address] [facility] [id number] [address] [place] [id number] Oct, [facility] [place] [address] [place] [id number] [address] [place] [phone] Sep, Diabetes E11.9 [facility] [place] [address] [facility] [id number] [address] [place] [id number] Sep, Diabetes E11.9 ; Hyperlipemi a E78.5 ; CAD (coronary artery disease) I25.10 ; Essential hypertension I10 and BMI 45.0-49.9, adult Z68.42 [facility] [place] [address] [facility] [id number] [address] [place] [id number] Sep, [facility] [place] [address] [facility] [id number] [address] [place] [id number] August, [facility] [place] [address] [facility] [id number] [address] [place] [id number] Jan, Dysuria R30.0 [facility] [place] [address] [id number] Jan, Dysuria R30.0 [place] [address] [address] Jan, Osteoarthritis of knees, natan ateral M17.0 [facility] [place] [address] [id number] Nov, Dysuria R30.0 [place] [address] [id number] Oct, Blood in urine R31.9 ; Dysur ia R30.0 ; Pharyngeal dysphagia R13.13 ; Acute cystitis with hematuria N30.01 ; CAD (coronary artery disease) I25.10 and Diabetes E11.9 [place] [address] [address] Oct, [place] [address] [address] Sep, Arthritis M19.90 ; Blood in urine R31.9 ; Diabetes E11.9 ; Acute cystitis with hematuria N30.01 and Pharyngoesophageal dysphagia R13.14 [place] [address] [id number] Sep, Osteoarthritis of knees, natan ateral M17.0 [place] [address] [id number] Sep, Osteoarthritis of knees, natan ateral M17.0 [place] [address] [id number] August, Arthritis M19.90 [place] [address] [address] Jul, Arthritis M19.90 [place] [address] [place] [id number] [place] [id number] Jun, Arthritis M19.90 [place] [address] [place] [id number] [place] [id number] Jun, [facility] [place] [address] [id number] [address] [place] [id number] Jun, [facility] [place] [address] [id number] [address] [place] [phone] May, Diabetes E11.9 ; Dysuria R30 .0 and Arthritis M19.90 [facility] [place] [address] [id number] [address] [place] [id number] Apr, [facility] [place] [address] [id number] [address] [place] [id number] Apr, Arthritis M19.90 [facility] [place] [address] [id number] [address] [place] [id number] Mar, Arthritis M19.90 [facility] [place] [address] [id number] [address] [place] [id number] Feb, [facility] [place] [address] [id number] [address] [place] [id number] Jan, [facility] [place] [address] [id number] [address] [place] [id number] Dec, Diabetes E11.9 and Arthritis M19.90 [facility] [place] [address] [id number] [address] [place] [id number] Dec, [facility] [place] [address] [id number] [address] [place] [id number] Nov, Arthritis M19.90 [facility] [place] [address] [id number] [address] [place] [id number] Nov, [facility] [place] [address] [id number] [address] [place] [phone] Oct, Arthritis M19.90 [facility] [place] [address] [facility] [id number] [address] [place] [id number] Sep, Osteoarthritis of knees, natan ateral M17.0 [facility] [place] [address] [facility] [id number] [address] [place] [id number] Sep, Osteoarthritis of knees, natan ateral M17.0 [facility] [place] [address] [facility] [id number] [address] [place] [id number] August, Arthritis M19.90 [facility] [place] [address] [facility] [id number] [address] [place] [phone] August, [facility] [place] [address] [facility] [id number] [address] [place] [id number] Jul, Hyperlipemia E78.5 [place] [address] [facility] [id number] [address] [place] [id number] Jul, Encounter for well woman exa m Z01.419 ; Morbid obesity E66.01 ; Encounter for screening for malignant neoplasm of cervix Z12.4 and Encounter for screening mammogram for breast cancer Z12.31 [place] [address] [place] [id number] [address] [place] [id number] Jul, Arthritis M19.90 ; Diabetes E11.9 ; Blood in urine R31.9 and UTI (urinary tract infection) N39.0 [place] [address] [facility] [id number] [address] [place] [id number] Jul, [place] [address] [facility] [id number] [address] [place] [id number] Jun, Arthritis M19.90 [place] [address] [facility] [id number] [address] [place] [id number] May, Arthritis M19.90 [facility] [place] [address] [facility] [id number] [address] [place] [id number] May, [facility] [place] [address] [facility] [id number] [address] [place] [id number] Apr, [facility] [place] [address] [facility] [id number] [address] [place] [id number] Apr, Arthritis M19.90 ; Diabetes E11.9 and Morbid obesity E66.01 [facility] [place] [address] [id number] [address] [place] [id number] Apr, [facility] [place] [address] [id number] [address] [place] [id number] 18 Apr, 2015 Dyspareunia N94.1 [facility] [place] [address] [id number] [address] [place] [id number] 15 Apr, 2015 [facility] [place] [address] [id number] [address] [place] [id number] 15 Apr, 2015 [facility] [place] [address] [id number] [address] [place] [id number] 14 Apr, 2015 Osteoarthritis of knees, natan ateral M17.0 [facility] [place] [address] [id number] [address] [place] [id number] 14 Apr, 2015 Diabetes E11.9 and CAD (elysia nary artery disease) I25.10 [facility] [place] [address] [id number] [address] [place] [id number] 08 Mar, 2015 [facility] [place] [address] [id number] [address] [place] [phone] Feb, [facility] [place] [address] [id number] [address] [place] [id number] 30 Jan, 2015 [facility] [place] [address] [id number] [address] [place] [id number] Jan, [facility] [place] [address] [id number] [address] [place] [id number] 15 Jan, 2015 [facility] [place] [address] [id number] [address] [place] [id number] 15 Jan, 2015 Osteoarthritis of knees, natan ateral M17.0 [facility] [place] [address] [id number] [address] [place] [id number] 30 Dec, 2014 [facility] [place] [address] [id number] [address] [place] [phone] Dec, [facility] [address] [id number] [address] [place] [address], [place] [address] Dec, [facility] [address] [id number] [address] [place] [address], [place] [address] Dec, Diabetes mellitus 250.00 and UTI (urinary tract infection) 599.0 [facility] [address] [id number] [address] [place] [address], [place] [address] Dec, [facility] [address] [id number] [address] [place] [address], [place] [address] Nov, [facility] [address] [id number] [address] [place] [address], [place] [address] Oct, [facility] [address] [id number] [address] [place] [address], [place] [address] Oct, [facility] [address] [id number] [address] [place] [address], [place] [address] Oct, [facility] [address] [id number] [address] [place] [address], [place] [address] Oct, [facility] [address] [id number] [address] [place] [address], [place] [address] Oct, [facility] [address] [id number] [address] [place] [address], [place] [address] Sep, [facility] [address] [id number] [address] [place] [address], [place] [address] August, [facility] [address] [id number] [address] [place] [address], [place] [address] August, [facility] [address] [id number] [address] [place] [address], [place] [address] August, [facility] [address] [id number] [address] [place] [address], [place] [address] Jul, [facility] [address] [id number] [address] [place] [address], [place] [address] Jul, [facility] [address] [id number] [address] [place] [address], [place] [address] Jul, [facility] [address] [id number] [address] [place] [address], [place] [address] Jun, [facility] [address] [id number] [address] [place] [address], [place] [address] Jun, [facility] [address] [id number] [address] [place] [address], [place] [address] Jun, [facility] [address] [id number] [address] [place] [address], [place] [address] Jun, [facility] [address] [id number] [address] [place] [address], [place] [address] Jun, [facility] [address] [id number] [address] [place] [address], [place] [address] Jun, [facility] [address] [id number] [address] [place] [address], [place] [address] Jun, [facility] [address] [id number] [address] [place] [address], [place] [address] Jun, [facility] [address] [id number] [address] [place] [address], [place] [address] May, [facility] [address] [id number] [address] [place] [address], [place] [address] May, [facility] [address] [id number] [address] [place] [address], [place] [address] May, [facility] [address] [id number] [address] [place] [address], [place] [address] May, [facility] [address] [id number] [address] [place] [address], [place] [address] May, [facility] [address] [id number] [address] [place] [address], [place] [address] May, [facility] [address] [id number] [address] [place] [address], [place] [address] May, 2014 [facility] [address] [id number] [address] [place] [address], [place] [address] May, 2014 [facility] [address] [id number] [address] [place] [address], [place] [address] May, 2014 [facility] [address] [id number] [address] [place] [address], [place] [address] May, 2014 [facility] [address] [id number] [address] [place] [address], [place] [address] May, 2014 [facility] [address] [id number] [address] [place] [address], [place] [address] May, 2014 [facility] [address] [id number] [address] [place] [address], [place] [address] Apr, [facility] [address] [id number] [address] [place] [address], [place] [address] Apr, [facility] [address] [id number] [address] [place] [address], [place] [address] Mar, [facility] [address] [id number] [address] [place] [address], [place] [address] Mar, [facility] [address] [id number] [address] [place] [address], [place] [address] Mar, [facility] [address] [id number] [address] [place] [address], [place] [address] Mar, [facility] [address] [id number] [address] [place] [address], [place] [address] Mar, [facility] [address] [id number] [address] [place] [address], [place] [address] Mar, [facility] [address] [id number] [address] [place] [address], [place] [address] Feb, [facility] [address] [id number] [address] [place] [address], [place] [address] Feb, [facility] [address] [id number] [address] [place] [address], [place] [address] Feb, [facility] [address] [id number] [address] [place] [address], [place] [address] Feb, [facility] [address] [id number] [address] [place] [address], [place] [address] Feb, [facility] [address] [id number] [address] [place] [address], [place] [address] Feb, [facility] [address] [id number] [address] [place] [address], [place] [address] Feb, [facility] [address] [id number] [address] [place] [address], [place] [address] Feb, [facility] [address] [id number] [address] [place] [address], [place] [address] Feb, [facility] [address] [id number] [address] [place] [address], [place] [address] Jan, [facility] [address] [id number] [address] [place] [address], [place] [address] Jan, [facility] [address] [id number] [address] [place] [id number] Jan, [facility] [address] [id number] [address] [place] [id number] Jan, [facility] [address] [id number] [address] [place] [id number] Jan, [facility] [address] [id number] [address] [place] [address], [place] [address] Jan, [facility] [address] [id number] [address] [place] [id number] Jan, [facility] [address] [id number] [address] [place] [id number] Jan, [facility] [address] [id number] [address] [place] [id number] Jan, [facility] [address] [id number] [address] [place] [address], [place] [address] Jan, [facility] [address] [id number] [address] [place] [address], [place] [address] Dec, [facility] [address] [id number] [address] [place] [address], [place] [address] Dec, [facility] [address] [id number] [address] [place] [address], [place] [address] Dec, [facility] [address] [id number] [address] [place] [address], [place] [address] Dec, [facility] [address] [id number] [address] [place] [address], [place] [address] Nov, [facility] [address] [id number] [address] [place] [address], [place] [address] Nov, [facility] [address] [id number] [address] [place] [address], [place] [address] Nov, [facility] [address] [id number] [address] [place] [address], [place] [address] Nov, [facility] [address] [id number] [address] [place] [address], [place] [address] Nov, [facility] [address] [id number] [address] [place] [address], [place] [address] Nov, [facility] [address] [id number] [address] [place] [address], [place] [address] Nov, [facility] [address] [id number] [address] [place] [address], [place] [address] Nov, [facility] [address] [id number] [address] [place] [address], [place] [address] Nov, [facility] [address] [id number] [address] [place] [address], [place] [address] Oct, [facility] [address] [id number] [facility] [place] [address] Oct, [facility] [address] [id number] [facility] [place] [address] Sep, [facility] [address] [id number] [facility] [place] [address] Sep, [facility] [address] [id number] [facility] [place] [address] Sep, [facility] [address] [id number] [facility] [place] [address] Sep, [facility] [address] [id number] [address] [place] [address], [place] [address] Sep, [facility] [address] [id number] [address] [place] [address], [place] [address] Sep, [facility] [address] [id number] [address] [place] [address], [place] [address] Sep, [facility] [address] [id number] [address] [place] [address], [place] [address] Sep, [facility] [address] [id number] [address] [place] [address], [place] [address] Sep, [facility] [address] [id number] [address] [place] [address], [place] [address] Sep, [facility] [address] [id number] [address] [place] [address], [place] [address] Sep, [facility] [address] [id number] [address] [place] [address], [place] [address] Sep, [facility] [address] [id number] [address] [place] [address], [place] [address] Sep, [facility] [address] [id number] [address] [place] [address], [place] [address] Sep, [facility] [address] [id number] [address] [place] [address], [place] [address] August, [facility] [address] [id number] [address] [place] [address], [place] [address] August, [facility] [address] [id number] [address] [place] [address], [place] [address] August, [facility] [address] [id number] [address] [place] [address], [place] [address] August, [facility] [address] [id number] [address] [place] [address], [place] [address] Jul, [facility] [address] [id number] [address] [place] [address], [place] [address] Jul, [facility] [address] [id number] [address] [place] [address], [place] [address] Jul, [facility] [address] [id number] [address] [place] [address], [place] [address] Jul, [facility] [address] [id number] [address] [place] [address], [place] [address] Jun, [facility] [address] [id number] [address] [place] [address], [place] [address] Jun, [facility] [address] [id number] [address] [place] [address], [place] [address] May, [facility] [address] [id number] [address] [place] [address], [place] [address] May, [facility] [address] [id number] [address] [place] [address], [place] [address] May, [facility] [address] [id number] [address] [place] [address], [place] [address] May, [facility] [address] [id number] [address] [place] [address], [place] [address] May, [facility] [address] [id number] [address] [place] [address], [place] [address] May, [facility] [address] [id number] [address] [place] [address], [place] [address] May, [facility] [address] [id number] [address] [place] [address], [place] [address] May, [facility] [address] [id number] [address] [place] [address], [place] [address] May, [facility] [address] [id number] [address] [place] [address], [place] [address] Apr, [facility] [address] [id number] [address] [place] [address], [place] [address] Apr, [facility] [address] [id number] [address] [place] [address], [place] [address] Apr, [facility] [address] [id number] [address] [place] [address], [place] [address] Apr, [facility] [address] [id number] [address] [place] [address], [place] [address] Apr, [facility] [address] [id number] [address] [place] [address], [place] [address] Mar, [facility] [address] [id number] [address] [place] [address], [place] [address] Mar, [facility] [address] [id number] [address] [place] [address], [place] [address] Feb, [facility] [address] [id number] [address] [place] [address], [place] [address] Feb, [facility] [address] [id number] [address] [place] [address], [place] [address] Feb, [facility] [address] [id number] [address] [place] [address], [place] [address] Feb, [facility] [address] [id number] [address] [place] [address], [place] [address] Feb, [facility] [address] [id number] [address] [place] [address] [address] Feb, [facility] [address] [id number] [address] [place] [address], [place] [address] Feb, [facility] [address] [id number] [address] [place] [address], [place] [address] Feb, [facility] [address] [id number] [address] [place] [address], [place] [address] Feb, [facility] [address] [id number] [address] [place] [address], [place] [address] Jan, [facility] [address] [id number] [address] [place] [address], [place] [address] Jan, [facility] [address] [id number] [address] [place] [address], [place] [address] Jan, [facility] [address] [id number] [address] [place] [address], [place] [address] Jan, [facility] [address] [id number] [address] [place] [address], [place] [address] Jan, [facility] [address] [id number] [address] [place] [address], [place] [address] Dec, [facility] [address] [id number] [address] [place] [address], [place] [address] Dec, [facility] [address] [id number] [address] [place] [address], [place] [address] Nov, [facility] [address] [id number] [address] [place] [address], [place] [address] Nov, [facility] [address] [id number] [address] [place] [address], [place] [address] Oct, [facility] [address] [id number] [address] [place] [address], [place] [address] Oct, [facility] [address] [id number] [address] [place] [address], [place] [address] Oct, [facility] [address] [id number] [address] [place] [address], [place] [address] Sep, [facility] [address] [id number] [address] [place] [address], [place] [address] Sep, [facility] [address] [id number] [address] [place] [address], [place] [address] Sep, [facility] [address] [id number] [address] [place] [address], [place] [address] August, [facility] [address] [id number] [address] [place] [address], [place] [address] August, [facility] [address] [id number] [address] [place] [address], [place] [address] August, [facility] [address] [id number] [address] [place] [address], [place] [address] August, [facility] [address] [id number] [address] [place] [address], [place] [address] Jul, [facility] [address] [id number] [address] [place] [address], [place] [address] Jun, [facility] [address] [id number] [address] [place] [address], [place] [address] Jun, [facility] [address] [id number] [address] [place] [address], [place] [address] Jun, [facility] [address] [id number] [address] [place] [address], [place] [address] May, [facility] [address] [id number] [address] [place] [address], [place] [address] May, [facility] [address] [id number] [address] [place] [address], [place] [address] May, [facility] [address] [id number] [address] [place] [address], [place] [address] May, [facility] [address] [id number] [address] [place] [address], [place] [address] Apr, [facility] [address] [id number] [address] [place] [address], [place] [address] Apr, [facility] [address] [id number] [address] [place] [address], [place] [address] 15 Apr, 2012 [facility] [address] [id number] [address] [place] [address], [place] [address] 14 Apr, 2012 [facility] [address] [id number] [address] [place] [address], [place] [address] Apr, [facility] [address] [id number] [address] [place] [address], [place] [address] Mar, [facility] [address] [id number] [address] [place] [address], [place] [address] Mar, [facility] [address] [id number] [address] [place] [address], [place] [address] Mar, [facility] [address] [id number] [address] [place] [address], [place] [address] Mar, [facility] [address] [id number] [address] [place] [address], [place] [address] Mar, [facility] [address] [id number] [address] [place] [address], [place] [address] Mar, [facility] [address] [id number] [address] [place] [address], [place] [address] Mar, [facility] [address] [id number] [address] [place] [address], [place] [address] Feb, [facility] [address] [id number] [address] [place] [address], [place] [address] Feb, [facility] [address] [id number] [address] [place] [address], [place] [address] Feb, [facility] [address] [id number] [address] [place] [address], [place] [address] Feb, [facility] [address] [id number] [address] [place] [address] Feb, [facility] [address] [id number] [address] [place] [address], [place] [address] Feb, [facility] [address] [id number] [address] [place] [address] Feb, [facility] [address] [id number] [address] [place] [address], [place] [address] Feb, [facility] [address] [id number] [address] [place] [address], [place] [address] Jan, [facility] [address] [id number] [address] [place] [address], [place] [address] Jan, [facility] [address] [id number] [address] [place] [address], [place] [address] Jan, [facility] [address] [id number] [address] [place] [address], [place] [address] Jan, [facility] [address] [id number] [address] [place] [address], [place] [address] 27 Dec, 2011 [facility] [address] [id number] [address] [place] [address], [place] [address] 25 Dec, 2011 [facility] [address] [id number] [address] [place] [address], [place] [address] 18 Dec, 2011 [facility] [address] [id number] [address] [place] [address], [place] [address] 13 Dec, 2011 [facility] [address] [id number] [address] [place] [id number] 11 Dec, 2011 [facility] [address] [id number] [address] [place] [address], [place] [address] Oct, [facility] [address] [id number] [address] [place] [address], [place] [address] Oct, [facility] [address] [id number] [address] [place] [address], [place] [address] Sep, [facility] [address] [id number] [address] [place] [address], [place] [address] Sep, [facility] [address] [id number] [address] [place] [address], [place] [address] August, [facility] [address] [id number] [address] [place] [address], [place] [address] August, [facility] [address] [id number] [address] [place] [address], [place] [address] Jul, [facility] [address] [id number] [address] [place] [address], [place] [address] Jun, [facility] [address] [id number] [address] [place] [address], [place] [address] Jun, [facility] [address] [id number] [address] [place] [address], [place] [address] Jun, [facility] [address] [id number] [address] [place] [address], [place] [address] Jun, [facility] [address] [id number] [address] [place] [address], [place] [address] Jun, [facility] [address] [id number] [address] [place] [address], [place] [address] 24 May, 2011 [facility] [address] [id number] [address] [place] [address], [place] [address] May, [facility] [address] [id number] [address] [place] [address], [place] [address] 20 May, 2011 [facility] [address] [id number] [address] [place] [address], [place] [address] 14 May, 2011 [facility] [address] [id number] [address] [place] [address], [place] [address] 13 May, 2011 [facility] [address] [id number] [address] [place] [address], [place] [address] 03 May, 2011 [facility] [address] [id number] [address] [place] [address] May, [facility] [address] [id number] [address] [place] [address] May, [facility] [address] [id number] [address] [place] [address] Apr, [facility] [address] [id number] [address] [place] [address] Mar, [facility] [address] [id number] [address] [place] [address] Mar, [facility] [address] [id number] [address] [place] [address] Mar, [facility] [address] [id number] [address] [place] [address] Mar, [facility] [address] [id number] [address] [place] [address] Mar, [facility] [address] [id number] [address] [place] [address] Jan, [facility] [address] [id number] [address] [place] [id number] Jan, [facility] [address] [id number] [address] [place] [id number] Jan, [facility] [address] [id number] [address] [place] [id number] August, [facility] [address] [id number] [address] [place] [id number] Mar, [facility] [address] [id number] [address] [place] [id number] Feb, [facility] [address] [id number] [address] [place] [address] 14 Jan, 2010 [facility] [address] [id number] [address] [place] [id number] 11 Jan, 2010 IMMUNIZATIONS No Known Immunizations [...]
--- OUTSIDE RECORDS SUMMARY | 2019-08-20 16:00 | XMS REPORT ---
Author Author Talia HUDSON Organization [facility] Address [address] [place] [address] Care Team Providers Care Elder Counselor Name Role Phone KATIE HUDSON Unavailable PROBLEMS Type Condition ICD9-CM Code [id number] Code Onset Dates Condition S tatus SNOMED Code Problem CAD (coronary artery disease) I25.10 Active 76445483 Problem Osteoarthritis of knees, bilateral M17.0 Active 870821225 Problem Essential hypertension I10 Active 60498029 Problem Diabetes E11.9 Active 98538235 Problem Arthritis M19.90 Active 9898602 Problem Morbid obesity E66.01 Active 32124 6002 Problem Hyperlipemia E78.5 Active 8745352 4 ALLERGIES No Information ENCOUNTERS Encounter Location Date Diagnosis [facility] [address] [facility] [id number] [address] [place] [phone] Jul, [facility] [address] [facility] [id number] [address] [place] [address] Jul, [facility] [address] [facility] [id number] [address] [place] [address] Jul, [facility] [address] [facility] [id number] [address] [place] [phone] 16 Jun, 2019 [facility] [address] [facility] [id number] [address] [place] [address] Jun, [facility] [address] [facility] [id number] [address] [place] [address] 12 Jun, 2019 Diabetes E11.9 ; Skin infect ion L08.9 and Essential hypertension I10 [facility] [address] [facility] [id number] [address] [place] [phone] 05 May, 2019 [facility] [address] [facility] [id number] [address] [place] [phone] May, [facility] [address] [facility] [id number] [address] [place] [phone] May, [facility] [address] [facility] [id number] [address] [place] [phone] Apr, [facility] [address] [facility] [id number] [address] [place] [phone] Mar, [facility] [address] [address] Mar, [facility] [address] [place] [id number] [place] [address] Feb, [facility] [address] [place] [id number] [place] [address] Nov, [facility] [address] [address] Nov, Diabetes E11.9 and Syncope, unspecified syncope type R55 [facility] [address] [place] [id number] [address] [place] [address] Nov, Osteoarthritis of knees, natan ateral M17.0 [facility] [address] [place] [id number] [address] [place] [phone] Oct, Diabetes E11.9 ; CAD (guardado ry artery disease) I25.10 ; Essential hypertension I10 and Hyperlipemia E78.5 [facility] [id number] [place] [phone] Sep, [facility] [address] [place] [id number] [address] [place] [address] Jul, [facility] [address] [address] Apr, [facility] [address] [place] [id number] [address] [place] [address] Mar, Pustular lesion L08.9 and En counter for immunization Z23 [facility] [address] [facility] [id number] [address] [place] [phone] Feb, [facility] [address] [facility] [id number] [address] [place] [phone] Dec, [facility] [address] [facility] [id number] [address] [place] [address] Dec, [facility] [address] [facility] [id number] [address] [place] [phone] Dec, Diabetes E11.9 ; Essential h ypertension I10 ; Arthritis M19.90 ; Urinary frequency R35.0 ; Routine adult health maintenance Z00.00 and BMI 45.0- 49.9, adult Z68.42 [facility] [address] [facility] [id number] [address] [place] [phone] 18 Dec, 2017 [facility] [address] [place] [id number] [address] [place] [phone] 04 Dec, 2017 [facility] [address] [facility] [id number] [address] [place] [phone] Oct, [facility] [address] [place] [id number] [address] [place] [address] Sep, Diabetes E11.9 [facility] [address] [facility] [id number] [address] [place] [address] Sep, Diabetes E11.9 ; Hyperlipemi a E78.5 ; CAD (coronary artery disease) I25.10 ; Essential hypertension I10 and BMI 45.0-49.9, adult Z68.42 [facility] [address] [facility] [id number] [address] [place] [address] Sep, [facility] [address] [facility] [id number] [address] [place] [address] August, [facility] [address] [facility] [id number] [address] [place] [address] Jan, Dysuria R30.0 [facility] [address] [id number] Jan, Dysuria R30.0 [place] [address] [address] Jan, Osteoarthritis of knees, natan ateral M17.0 [facility] [address] [address] Nov, Dysuria R30.0 [place] [address] [address] Oct, Blood in urine R31.9 ; Dysur ia R30.0 ; Pharyngeal dysphagia R13.13 ; Acute cystitis with hematuria N30.01 ; CAD (coronary artery disease) I25.10 and Diabetes E11.9 [place] [address] [address] Oct, [place] [address] [address] Sep, Arthritis M19.90 ; Blood in urine R31.9 ; Diabetes E11.9 ; Acute cystitis with hematuria N30.01 and Pharyngoesophageal dysphagia R13.14 [place] [address] [address] Sep, Osteoarthritis of knees, natan ateral M17.0 [place] [address] [address] Sep, Osteoarthritis of knees, natan ateral M17.0 [place] [address] [address] August, Arthritis M19.90 [place] [address] [address] Jul, Arthritis M19.90 [place] [address] [place] [id number] [address] [place] [address] Jun, Arthritis M19.90 [place] [address] [place] [id number] [address] [place] [phone] Jun, [facility] [address] [id number] [address] [place] [address] Jun, [facility] [address] [id number] [address] [place] [address] May, Diabetes E11.9 ; Dysuria R30 .0 and Arthritis M19.90 [facility] [address] [id number] [address] [place] [address] Apr, [facility] [address] [id number] [address] [place] [address] Apr, Arthritis M19.90 [facility] [address] [id number] [address] [place] [address] Mar, Arthritis M19.90 [facility] [address] [id number] [address] [place] [phone] Feb, [facility] [address] [id number] [address] [place] [phone] Jan, [facility] [address] [id number] [address] [place] [address] Dec, Diabetes E11.9 and Arthritis M19.90 [facility] [address] [id number] [address] [place] [phone] Dec, [facility] [address] [id number] [address] [place] [address] Nov, Arthritis M19.90 [facility] [address] [id number] [address] [place] [phone] Nov, [facility] [address] [id number] [address] [place] [address] Oct, Arthritis M19.90 [facility] [address] [facility] [id number] [address] [place] [address] Sep, Osteoarthritis of knees, natan ateral M17.0 [facility] [address] [facility] [id number] [address] [place] [address] Sep, Osteoarthritis of knees, natan ateral M17.0 [facility] [address] [facility] [id number] [address] [place] [address] August, Arthritis M19.90 [facility] [address] [facility] [id number] [address] [place] [address] August, [facility] [address] [facility] [id number] [address] [place] [address] Jul, Hyperlipemia E78.5 [place] [address] [facility] [id number] [address] [place] [address] Jul, Encounter for well woman exa m Z01.419 ; Morbid obesity E66.01 ; Encounter for screening for malignant neoplasm of cervix Z12.4 and Encounter for screening mammogram for breast cancer Z12.31 [place] [address] [place] [id number] [address] [place] [address] Jul, Arthritis M19.90 ; Diabetes E11.9 ; Blood in urine R31.9 and UTI (urinary tract infection) N39.0 [place] [address] [facility] [id number] [address] [place] [address] Jul, [place] [address] [facility] [id number] [address] [place] [address] Jun, Arthritis M19.90 [place] [address] [facility] [id number] [address] [place] [address] May, Arthritis M19.90 [facility] [address] [facility] [id number] [address] [place] [phone] May, [facility] [address] [facility] [id number] [address] [place] [phone] Apr, [facility] [address] [facility] [id number] [address] [place] [address] Apr, Arthritis M19.90 ; Diabetes E11.9 and Morbid obesity E66.01 [facility] [address] [id number] [address] [place] [phone] Apr, [facility] [address] [id number] [address] [place] [phone] 18 Apr, 2015 Dyspareunia N94.1 [facility] [address] [id number] [address] [place] [phone] 15 Apr, 2015 [facility] [address] [id number] [address] [place] [phone] 15 Apr, 2015 [facility] [address] [id number] [address] [place] [phone] 14 Apr, 2015 Osteoarthritis of knees, natan ateral M17.0 [facility] [address] [id number] [address] [place] [phone] 14 Apr, 2015 Diabetes E11.9 and CAD (elysia nary artery disease) I25.10 [facility] [address] [id number] [address] [place] [phone] 08 Mar, 2015 [facility] [address] [id number] [address] [place] [phone] Feb, [facility] [address] [id number] [address] [place] [phone] 30 Jan, 2015 [facility] [address] [id number] [address] [place] [phone] Jan, [facility] [address] [id number] [address] [place] [phone] 15 Jan, 2015 [facility] [address] [id number] [address] [place] [phone] 15 Jan, 2015 Osteoarthritis of knees, natan ateral M17.0 [facility] [address] [id number] [address] [place] [phone] 30 Dec, 2014 [facility] [address] [id number] [address] [place] [phone] Dec, [facility] [address] [id number] [address] [place] [address], [place] [address] Dec, [facility] [address] [id number] [address] [place] [address], [place] [address] Dec, Diabetes mellitus 250.00 and UTI (urinary tract infection) 599.0 [facility] [address] [id number] [address] [place] [address], [place] [address] Dec, [facility] [address] [id number] [address] [place] [address], [place] [address] Nov, [facility] [address] [id number] [address] [place] [address], [place] [address] Oct, [facility] [address] [id number] [address] [place] [address], [place] [address] Oct, [facility] [address] [id number] [address] [place] [address], [place] [address] Oct, [facility] [address] [id number] [address] [place] [address], [place] [address] Oct, [facility] [address] [id number] [address] [place] [address], [place] [address] Oct, [facility] [address] [id number] [address] [place] [address], [place] [address] Sep, [facility] [address] [id number] [address] [place] [address], [place] [address] August, [facility] [address] [id number] [address] [place] [address], [place] [address] August, [facility] [address] [id number] [address] [place] [address], [place] [address] August, [facility] [address] [id number] [address] [place] [address], [place] [address] Jul, [facility] [address] [id number] [address] [place] [address], [place] [address] Jul, [facility] [address] [id number] [address] [place] [address], [place] [address] Jul, [facility] [address] [id number] [address] [place] [address], [place] [address] Jun, [facility] [address] [id number] [address] [place] [address], [place] [address] Jun, [facility] [address] [id number] [address] [place] [address], [place] [address] Jun, [facility] [address] [id number] [address] [place] [address], [place] [address] Jun, [facility] [address] [id number] [address] [place] [address], [place] [address] Jun, [facility] [address] [id number] [address] [place] [address], [place] [address] Jun, [facility] [address] [id number] [address] [place] [address], [place] [address] Jun, [facility] [address] [id number] [address] [place] [address], [place] [address] Jun, [facility] [address] [id number] [address] [place] [address], [place] [address] May, [facility] [address] [id number] [address] [place] [address], [place] [address] May, [facility] [address] [id number] [address] [place] [address], [place] [address] May, [facility] [address] [id number] [address] [place] [address], [place] [address] May, [facility] [address] [id number] [address] [place] [address], [place] [address] May, [facility] [address] [id number] [address] [place] [address], [place] [address] May, [facility] [address] [id number] [address] [place] [address], [place] [address] May, 2014 [facility] [address] [id number] [address] [place] [address], [place] [address] May, 2014 [facility] [address] [id number] [address] [place] [address], [place] [address] May, 2014 [facility] [address] [id number] [address] [place] [address], [place] [address] May, 2014 [facility] [address] [id number] [address] [place] [address], [place] [address] May, 2014 [facility] [address] [id number] [address] [place] [address], [place] [address] May, 2014 [facility] [address] [id number] [address] [place] [address], [place] [address] Apr, [facility] [address] [id number] [address] [place] [address], [place] [address] Apr, [facility] [address] [id number] [address] [place] [address], [place] [address] Mar, [facility] [address] [id number] [address] [place] [address], [place] [address] Mar, [facility] [address] [id number] [address] [place] [address], [place] [address] Mar, [facility] [address] [id number] [address] [place] [address], [place] [address] Mar, [facility] [address] [id number] [address] [place] [address], [place] [address] Mar, [facility] [address] [id number] [address] [place] [address], [place] [address] Mar, [facility] [address] [id number] [address] [place] [address], [place] [address] Feb, [facility] [address] [id number] [address] [place] [address], [place] [address] Feb, [facility] [address] [id number] [address] [place] [address], [place] [address] Feb, [facility] [address] [id number] [address] [place] [address], [place] [address] Feb, [facility] [address] [id number] [address] [place] [address], [place] [address] Feb, [facility] [address] [id number] [address] [place] [address], [place] [address] Feb, [facility] [address] [id number] [address] [place] [address], [place] [address] Feb, [facility] [address] [id number] [address] [place] [address], [place] [address] Feb, [facility] [address] [id number] [address] [place] [address], [place] [address] Feb, [facility] [address] [id number] [address] [place] [address], [place] [address] Jan, [facility] [address] [id number] [address] [place] [address], [place] [address] Jan, [facility] [address] [id number] [address] [place] [phone] Jan, [facility] [address] [id number] [address] [place] [phone] Jan, [facility] [address] [id number] [address] [place] [id number] Jan, [facility] [address] [id number] [address] [place] [address], [place] [address] Jan, [facility] [address] [id number] [address] [place] [phone] Jan, [facility] [address] [id number] [address] [place] [phone] Jan, [facility] [address] [id number] [address] [place] [phone] Jan, [facility] [address] [id number] [address] [place] [address], [place] [address] Jan, [facility] [address] [id number] [address] [place] [address], [place] [address] Dec, [facility] [address] [id number] [address] [place] [address], [place] [address] Dec, [facility] [address] [id number] [address] [place] [address], [place] [address] Dec, [facility] [address] [id number] [address] [place] [address], [place] [address] Dec, [facility] [address] [id number] [address] [place] [address], [place] [address] Nov, [facility] [address] [id number] [address] [place] [address], [place] [address] Nov, [facility] [address] [id number] [address] [place] [address], [place] [address] Nov, [facility] [address] [id number] [address] [place] [address], [place] [address] Nov, [facility] [address] [id number] [address] [place] [address], [place] [address] Nov, [facility] [address] [id number] [address] [place] [address], [place] [address] Nov, [facility] [address] [id number] [address] [place] [address], [place] [address] Nov, [facility] [address] [id number] [address] [place] [address], [place] [address] Nov, [facility] [address] [id number] [address] [place] [address], [place] [address] Nov, [facility] [address] [id number] [address] [place] [address], [place] [address] Oct, [facility] [address] [id number] [address] [place] [address] Oct, [facility] [address] [id number] [facility] [place] [address] Sep, [facility] [address] [id number] [facility] [place] [address] Sep, [facility] [address] [id number] [facility] [place] [address] Sep, [facility] [address] [id number] [address] [place] [address] Sep, [facility] [address] [id number] [address] [place] [address], [place] [address] Sep, [facility] [address] [id number] [address] [place] [address], [place] [address] Sep, [facility] [address] [id number] [address] [place] [address], [place] [address] Sep, [facility] [address] [id number] [address] [place] [address], [place] [address] Sep, [facility] [address] [id number] [address] [place] [address], [place] [address] Sep, [facility] [address] [id number] [address] [place] [address], [place] [address] Sep, [facility] [address] [id number] [address] [place] [address], [place] [address] Sep, [facility] [address] [id number] [address] [place] [address], [place] [address] Sep, [facility] [address] [id number] [address] [place] [address], [place] [address] Sep, [facility] [address] [id number] [address] [place] [address], [place] [address] Sep, [facility] [address] [id number] [address] [place] [address], [place] [address] August, [facility] [address] [id number] [address] [place] [address], [place] [address] August, [facility] [address] [id number] [address] [place] [address], [place] [address] August, [facility] [address] [id number] [address] [place] [address], [place] [address] August, [facility] [address] [id number] [address] [place] [address], [place] [address] Jul, [facility] [address] [id number] [address] [place] [address], [place] [address] Jul, [facility] [address] [id number] [address] [place] [address], [place] [address] Jul, [facility] [address] [id number] [address] [place] [address], [place] [address] Jul, [facility] [address] [id number] [address] [place] [address], [place] [address] Jun, [facility] [address] [id number] [address] [place] [address], [place] [address] Jun, [facility] [address] [id number] [address] [place] [address], [place] [address] May, [facility] [address] [id number] [address] [place] [address], [place] [address] May, [facility] [address] [id number] [address] [place] [address], [place] [address] May, [facility] [address] [id number] [address] [place] [address], [place] [address] May, [facility] [address] [id number] [address] [place] [address], [place] [address] May, [facility] [address] [id number] [address] [place] [address], [place] [address] May, [facility] [address] [address] [id number] [address] [place] [address], [place] [address] May, [facility] [address] [id number] [address] [place] [address], [place] [address] May, [facility] [address] [id number] [address] [place] [address], [place] [address] May, [facility] [address] [id number] [address] [place] [address], [place] [address] Apr, [facility] [address] [id number] [address] [place] [address], [place] [address] Apr, [facility] [address] [id number] [address] [place] [address], [place] [address] Apr, [facility] [address] [id number] [address] [place] [address], [place] [address] Apr, [facility] [address] [id number] [address] [place] [address], [place] [address] Apr, [facility] [address] [id number] [address] [place] [address], [place] [address] Mar, [facility] [address] [id number] [address] [place] [address], [place] [address] Mar, [facility] [address] [id number] [address] [place] [address], [place] [address] Feb, [facility] [address] [id number] [address] [place] [address], [place] [address] Feb, [facility] [address] [id number] [address] [place] [address], [place] [address] Feb, [facility] [address] [id number] [address] [place] [address], [place] [address] Feb, [facility] [address] [id number] [address] [place] [address], [place] [address] Feb, [facility] [address] [id number] [address] [place] [address] [address] Feb, [facility] [address] [id number] [address] [place] [address], [place] [address] Feb, [facility] [address] [id number] [address] [place] [address], [place] [address] Feb, [facility] [address] [id number] [address] [place] [address], [place] [address] Feb, [facility] [address] [id number] [address] [place] [address], [place] [address] Jan, [facility] [address] [id number] [address] [place] [address], [place] [address] Jan, [facility] [address] [id number] [address] [place] [address], [place] [address] Jan, [facility] [address] [id number] [address] [place] [address], [place] [address] Jan, [facility] [address] [id number] [address] [place] [address], [place] [address] Jan, [facility] [address] [id number] [address] [place] [address], [place] [address] Dec, [facility] [address] [id number] [address] [place] [address], [place] [address] Dec, [facility] [address] [id number] [address] [place] [address], [place] [address] Nov, [facility] [address] [id number] [address] [place] [address], [place] [address] Nov, [facility] [address] [id number] [address] [place] [address], [place] [address] Oct, [facility] [address] [id number] [address] [place] [address], [place] [address] Oct, [facility] [address] [id number] [address] [place] [address], [place] [address] Oct, [facility] [address] [id number] [address] [place] [address], [place] [address] Sep, [facility] [address] [id number] [address] [place] [address], [place] [address] Sep, [facility] [address] [id number] [address] [place] [address], [place] [address] Sep, [facility] [address] [id number] [address] [place] [address], [place] [address] August, [facility] [address] [id number] [address] [place] [address], [place] [address] August, [facility] [address] [id number] [address] [place] [address], [place] [address] August, [facility] [address] [id number] [address] [place] [address], [place] [address] August, [facility] [address] [id number] [address] [place] [address], [place] [address] Jul, [facility] [address] [id number] [address] [place] [address], [place] [address] Jun, [facility] [address] [id number] [address] [place] [address], [place] [address] Jun, [facility] [address] [id number] [address] [place] [address], [place] [address] Jun, [facility] [address] [id number] [address] [place] [address], [place] [address] May, [facility] [address] [id number] [address] [place] [address], [place] [address] May, [facility] [address] [id number] [address] [place] [address], [place] [address] May, [facility] [address] [id number] [address] [place] [address], [place] [address] May, [facility] [address] [id number] [address] [place] [address], [place] [address] Apr, [facility] [address] [id number] [address] [place] [address], [place] [address] Apr, [facility] [address] [id number] [address] [place] [address], [place] [address] 15 Apr, 2012 [facility] [address] [id number] [address] [place] [address], [place] [address] 14 Apr, 2012 [facility] [address] [id number] [address] [place] [address], [place] [address] Apr, [facility] [address] [id number] [address] [place] [address], [place] [address] Mar, [facility] [address] [id number] [address] [place] [address], [place] [address] Mar, [facility] [address] [id number] [address] [place] [address], [place] [address] Mar, [facility] [address] [id number] [address] [place] [address], [place] [address] Mar, [facility] [address] [id number] [address] [place] [address], [place] [address] Mar, [facility] [address] [id number] [address] [place] [address], [place] [address] Mar, [facility] [address] [id number] [address] [place] [address], [place] [address] Mar, [facility] [address] [id number] [address] [place] [address], [place] [address] Feb, [facility] [address] [id number] [address] [place] [address], [place] [address] Feb, [facility] [address] [id number] [address] [place] [address], [place] [address] Feb, [facility] [address] [id number] [address] [place] [address], [place] [address] Feb, [facility] [address] [id number] [address] [place] [address] Feb, [facility] [address] [id number] [address] [place] [address], [place] [address] Feb, [facility] [address] [id number] [address] [place] [id number] Feb, [facility] [address] [id number] [address] [place] [address], [place] [address] Feb, [facility] [address] [id number] [address] [place] [address], [place] [address] Jan, [facility] [address] [id number] [address] [place] [address], [place] [address] Jan, [facility] [address] [id number] [address] [place] [address], [place] [address] Jan, [facility] [address] [id number] [address] [place] [address], [place] [address] Jan, [facility] [address] [id number] [address] [place] [address], [place] [address] 27 Dec, 2011 [facility] [address] [id number] [address] [place] [address], [place] [address] 25 Dec, 2011 [facility] [address] [id number] [address] [place] [address], [place] [address] 18 Dec, 2011 [facility] [address] [id number] [address] [place] [address], [place] [address] 13 Dec, 2011 [facility] [address] [id number] [address] [place] [address] 11 Dec, 2011 [facility] [address] [id number] [address] [place] [address], [place] [address] Oct, [facility] [address] [id number] [address] [place] [address], [place] [address] Oct, [facility] [address] [id number] [address] [place] [address], [place] [address] Sep, [facility] [address] [id number] [address] [place] [address], [place] [address] Sep, [facility] [address] [id number] [address] [place] [address], [place] [address] August, [facility] [address] [id number] [address] [place] [address], [place] [address] August, [facility] [address] [id number] [address] [place] [address], [place] [address] Jul, [facility] [address] [id number] [address] [place] [address], [place] [address] Jun, [facility] [address] [id number] [address] [place] [address], [place] [address] Jun, [facility] [address] [id number] [address] [place] [address], [place] [address] Jun, [facility] [address] [id number] [address] [place] [address], [place] [address] Jun, [facility] [address] [id number] [address] [place] [address], [place] [address] Jun, [facility] [address] [id number] [address] [place] [address], [place] [address] 24 May, 2011 [facility] [address] [id number] [address] [place] [address], [place] [address] May, [facility] [address] [id number] [address] [place] [address], [place] [address] 20 May, 2011 [facility] [address] [id number] [address] [place] [address], [place] [address] 14 May, 2011 [facility] [address] [id number] [address] [place] [address], [place] [address] 13 May, 2011 [facility] [address] [id number] [address] [place] [address], [place] [address] 03 May, 2011 [facility] [address] [id number] [address] [place] [id number] May, [facility] [address] [id number] [address] [place] [address] May, [facility] [address] [id number] [address] [place] [address] Apr, [facility] [address] [id number] [address] [place] [id number] Mar, [facility] [address] [id number] [address] [place] [id number] Mar, [facility] [address] [id number] [address] [place] [id number] Mar, [facility] [address] [id number] [address] [place] [id number] Mar, [facility] [address] [id number] [address] [place] [id number] Mar, [facility] [address] [id number] [address] [place] [id number] Jan, [facility] [address] [id number] [address] [place] [id number] Jan, [facility] [address] [id number] [address] [place] [id number] Jan, [facility] [address] [id number] [address] [place] [id number] August, [facility] [address] [id number] [address] [place] [id number] Mar, [facility] [address] [id number] [address] [place] [id number] Feb, [facility] [address] [id number] [address] [place] [id number] 14 Jan, 2010 [facility] [address] [id number] [address] [place] [id number] 11 Jan, 2010 IMMUNIZATIONS No Known Immunizations [...]
--- OUTSIDE RECORDS SUMMARY | 2019-08-20 16:00 | XMS REPORT ---
Author Author Talia HUDSON Organization [facility] Address [address] [place] [address] Care Team Providers Care Developer Relations Manager Name Role Phone KATIE HUDSON Unavailable PROBLEMS Type Condition ICD9-CM Code GDH27-HP Code Onset Dates Condition S tatus SNOMED Code Problem CAD (coronary artery disease) I25.10 Active 73432521 Problem Osteoarthritis of knees, bilateral M17.0 Active 956664102 Problem Essential hypertension I10 Active 58227272 Problem Diabetes E11.9 Active 76322400 Problem Arthritis M19.90 Active 8975023 Problem Morbid obesity E66.01 Active 48811 6002 Problem Hyperlipemia E78.5 Active 6457535 4 ALLERGIES No Information ENCOUNTERS Encounter Location Date Diagnosis [facility] [address] [facility] [id number] [address] [place] [address] Jul, [facility] [address] [facility] [id number] [address] [place] [address] Jul, [facility] [address] [facility] [id number] [address] [place] [address] Jul, [facility] [address] [facility] [id number] [address] [place] [address] 16 Jun, 2019 [facility] [address] [facility] [id number] [address] [place] [address] Jun, [facility] [address] [facility] [id number] [address] [place] [address] 12 Jun, 2019 Diabetes E11.9 ; Skin infect ion L08.9 and Essential hypertension I10 [facility] [address] [facility] [id number] [address] [place] [phone] 05 May, 2019 [facility] [address] [facility] [id number] [address] [place] [address] May, [facility] [address] [facility] [id number] [address] [place] [address] May, [facility] [address] [facility] [id number] [address] [place] [address] Apr, [facility] [address] [facility] [id number] [address] [place] [address] Mar, [facility] [address] [address] Mar, [facility] [address] [place] [id number] [place] [phone] Feb, [facility] [address] [place] [id number] [place] [phone] Nov, [facility] [address] [address] Nov, Diabetes E11.9 and Syncope, unspecified syncope type R55 [facility] [address] [place] [id number] [address] [place] [address] Nov, Osteoarthritis of knees, natan ateral M17.0 [facility] [address] [place] [id number] [address] [place] [address] Oct, Diabetes E11.9 ; CAD (guardado ry artery disease) I25.10 ; Essential hypertension I10 and Hyperlipemia E78.5 [facility] [id number] [place] [address] Sep, [facility] [address] [place] [id number] [address] [place] [address] Jul, [facility] [address] [address] Apr, [facility] [address] [place] [id number] [address] [place] [address] Mar, Pustular lesion L08.9 and En counter for immunization Z23 [facility] [address] [facility] [id number] [address] [place] [address] Feb, [facility] [address] [facility] [id number] [address] [place] [address] Dec, [facility] [address] [facility] [id number] [address] [place] [address] Dec, [facility] [address] [facility] [id number] [address] [place] [address] Dec, Diabetes E11.9 ; Essential h ypertension I10 ; Arthritis M19.90 ; Urinary frequency R35.0 ; Routine adult health maintenance Z00.00 and BMI 45.0- 49.9, adult Z68.42 [facility] [address] [facility] [id number] [address] [place] [address] 18 Dec, 2017 [facility] [address] [place] [id number] [address] [place] [address] 04 Dec, 2017 [facility] [address] [facility] [id number] [address] [place] [address] Oct, [facility] [address] [place] [id number] [address] [place] [address] Sep, Diabetes E11.9 [facility] [address] [facility] [id number] [address] [place] [address] Sep, Diabetes E11.9 ; Hyperlipemi a E78.5 ; CAD (coronary artery disease) I25.10 ; Essential hypertension I10 and BMI 45.0-49.9, adult Z68.42 [facility] [address] [facility] [id number] [address] [place] [address] Sep, [facility] [address] [facility] [id number] [address] [place] [address] August, [facility] [address] [facility] [id number] [address] [place] [address] Jan, Dysuria R30.0 [facility] [address] [address] Jan, Dysuria R30.0 [place] [address] [address] Jan, Osteoarthritis of knees, natan ateral M17.0 [facility] [address] [address] Nov, Dysuria R30.0 [place] [address] [address] Oct, Blood in urine R31.9 ; Dysur ia R30.0 ; Pharyngeal dysphagia R13.13 ; Acute cystitis with hematuria N30.01 ; CAD (coronary artery disease) I25.10 and Diabetes E11.9 [place] [address] [address] Oct, [place] [address] [address] Sep, Arthritis M19.90 ; Blood in urine R31.9 ; Diabetes E11.9 ; Acute cystitis with hematuria N30.01 and Pharyngoesophageal dysphagia R13.14 [place] [address] [address] Sep, Osteoarthritis of knees, natan ateral M17.0 [place] [address] [address] Sep, Osteoarthritis of knees, natan ateral M17.0 [place] [address] [address] August, Arthritis M19.90 [place] [address] [address] Jul, Arthritis M19.90 [place] [address] [place] [id number] [address] [place] [address] Jun, Arthritis M19.90 [place] [address] [place] [id number] [address] [place] [address] Jun, [facility] [address] [id number] [address] [place] [address] Jun, [facility] [address] [id number] [address] [place] [address] May, Diabetes E11.9 ; Dysuria R30 .0 and Arthritis M19.90 [facility] [address] [id number] [address] [place] [address] Apr, [facility] [address] [id number] [address] [place] [address] Apr, Arthritis M19.90 [facility] [address] [id number] [address] [place] [address] Mar, Arthritis M19.90 [facility] [address] [id number] [address] [place] [address] Feb, [facility] [address] [id number] [address] [place] [address] Jan, [facility] [address] [id number] [address] [place] [address] Dec, Diabetes E11.9 and Arthritis M19.90 [facility] [address] [id number] [address] [place] [address] Dec, [facility] [address] [id number] [address] [place] [address] Nov, Arthritis M19.90 [facility] [address] [id number] [address] [place] [address] Nov, [facility] [address] [id number] [address] [place] [address] Oct, Arthritis M19.90 [facility] [address] [facility] [id number] [address] [place] [address] Sep, Osteoarthritis of knees, natan ateral M17.0 [facility] [address] [facility] [id number] [address] [place] [address] Sep, Osteoarthritis of knees, natan ateral M17.0 [facility] [address] [facility] [id number] [address] [place] [address] August, Arthritis M19.90 [facility] [address] [facility] [id number] [address] [place] [address] August, [facility] [address] [facility] [id number] [address] [place] [address] Jul, Hyperlipemia E78.5 [place] [address] [facility] [id number] [address] [place] [address] Jul, Encounter for well woman exa m Z01.419 ; Morbid obesity E66.01 ; Encounter for screening for malignant neoplasm of cervix Z12.4 and Encounter for screening mammogram for breast cancer Z12.31 [place] [address] [place] [id number] [address] [place] [address] Jul, Arthritis M19.90 ; Diabetes E11.9 ; Blood in urine R31.9 and UTI (urinary tract infection) N39.0 [place] [address] [facility] [id number] [address] [place] [address] Jul, [place] [address] [facility] [id number] [address] [place] [address] Jun, Arthritis M19.90 [place] [address] [facility] [id number] [address] [place] [address] May, Arthritis M19.90 [facility] [address] [facility] [id number] [address] [place] [address] May, [facility] [address] [facility] [id number] [address] [place] [address] Apr, [facility] [address] [facility] [id number] [address] [place] [address] Apr, Arthritis M19.90 ; Diabetes E11.9 and Morbid obesity E66.01 [facility] [address] [id number] [address] [place] [address] Apr, [facility] [address] [id number] [address] [place] [address] 18 Apr, 2015 Dyspareunia N94.1 [facility] [address] [id number] [address] [place] [address] 15 Apr, 2015 [facility] [address] [id number] [address] [place] [address] 15 Apr, 2015 [facility] [address] [id number] [address] [place] [address] 14 Apr, 2015 Osteoarthritis of knees, natan ateral M17.0 [facility] [address] [id number] [address] [place] [address] 14 Apr, 2015 Diabetes E11.9 and CAD (elysia nary artery disease) I25.10 [facility] [address] [id number] [address] [place] [address] 08 Mar, 2015 [facility] [address] [id number] [address] [place] [address] Feb, [facility] [address] [id number] [address] [place] [address] 30 Jan, 2015 [facility] [address] [id number] [address] [place] [address] Jan, [facility] [address] [id number] [address] [place] [address] 15 Jan, 2015 [facility] [address] [id number] [address] [place] [phone] 15 Jan, 2015 Osteoarthritis of knees, natan ateral M17.0 [facility] [address] [id number] [address] [place] [address] 30 Dec, 2014 [facility] [address] [id number] [address] [place] [address] Dec, [facility] [address] [id number] [address] [place] [address], [place] [address] Dec, [facility] [address] [id number] [address] [place] [address], [place] [address] Dec, Diabetes mellitus 250.00 and UTI (urinary tract infection) 599.0 [facility] [address] [id number] [address] [place] [address], [place] [address] Dec, [facility] [address] [id number] [address] [place] [address], [place] [address] Nov, [facility] [address] [id number] [address] [place] [address], [place] [address] Oct, [facility] [address] [id number] [address] [place] [address], [place] [address] Oct, [facility] [address] [id number] [address] [place] [address], [place] [address] Oct, [facility] [address] [id number] [address] [place] [address], [place] [address] Oct, [facility] [address] [id number] [address] [place] [address], [place] [address] Oct, [facility] [address] [id number] [address] [place] [address], [place] [address] Sep, [facility] [address] [id number] [address] [place] [address], [place] [address] August, [facility] [address] [id number] [address] [place] [address], [place] [address] August, [facility] [address] [id number] [address] [place] [address], [place] [address] August, [facility] [address] [id number] [address] [place] [address], [place] [address] Jul, [facility] [address] [id number] [address] [place] [address], [place] [address] Jul, [facility] [address] [id number] [address] [place] [address], [place] [address] Jul, [facility] [address] [id number] [address] [place] [address], [place] [address] Jun, [facility] [address] [id number] [address] [place] [address], [place] [address] Jun, [facility] [address] [id number] [address] [place] [address], [place] [address] Jun, [facility] [address] [id number] [address] [place] [address], [place] [address] Jun, [facility] [address] [id number] [address] [place] [address], [place] [address] Jun, [facility] [address] [id number] [address] [place] [address], [place] [address] Jun, [facility] [address] [id number] [address] [place] [address], [place] [address] Jun, [facility] [address] [id number] [address] [place] [address], [place] [address] Jun, [facility] [address] [id number] [address] [place] [address], [place] [address] May, [facility] [address] [id number] [address] [place] [address], [place] [address] May, [facility] [address] [id number] [address] [place] [address], [place] [address] May, [facility] [address] [id number] [address] [place] [address], [place] [address] May, [facility] [address] [id number] [address] [place] [address], [place] [address] May, [facility] [address] [id number] [address] [place] [address], [place] [address] May, [facility] [address] [id number] [address] [place] [address], [place] [address] May, 2014 [facility] [address] [id number] [address] [place] [address], [place] [address] May, 2014 [facility] [address] [id number] [address] [place] [address], [place] [address] May, 2014 [facility] [address] [id number] [address] [place] [address], [place] [address] May, 2014 [facility] [address] [id number] [address] [place] [address], [place] [address] May, 2014 [facility] [address] [id number] [address] [place] [address], [place] [address] May, 2014 [facility] [address] [id number] [address] [place] [address], [place] [address] Apr, [facility] [address] [id number] [address] [place] [address], [place] [address] Apr, [facility] [address] [id number] [address] [place] [address], [place] [address] Mar, [facility] [address] [id number] [address] [place] [address], [place] [address] Mar, [facility] [address] [id number] [address] [place] [address], [place] [address] Mar, [facility] [address] [id number] [address] [place] [address], [place] [address] Mar, [facility] [address] [id number] [address] [place] [address], [place] [address] Mar, [facility] [address] [id number] [address] [place] [address], [place] [address] Mar, [facility] [address] [id number] [address] [place] [address], [place] [address] Feb, [facility] [address] [id number] [address] [place] [address], [place] [address] Feb, [facility] [address] [id number] [address] [place] [address], [place] [address] Feb, [facility] [address] [id number] [address] [place] [address], [place] [address] Feb, [facility] [address] [id number] [address] [place] [address], [place] [address] Feb, [facility] [address] [id number] [address] [place] [address], [place] [address] Feb, [facility] [address] [id number] [address] [place] [address], [place] [address] Feb, [facility] [address] [id number] [address] [place] [address], [place] [address] Feb, [facility] [address] [id number] [address] [place] [address], [place] [address] Feb, [facility] [address] [id number] [address] [place] [address], [place] [address] Jan, [facility] [address] [id number] [address] [place] [address], [place] [address] Jan, [facility] [address] [id number] [address] [place] [address] Jan, [facility] [address] [id number] [address] [place] [address] Jan, [facility] [address] [id number] [address] [place] [address] Jan, [facility] [address] [id number] [address] [place] [address], [place] [address] Jan, [facility] [address] [id number] [address] [place] [address] Jan, [facility] [address] [id number] [address] [place] [address] Jan, [facility] [address] [id number] [address] [place] [address] Jan, [facility] [address] [id number] [address] [place] [address], [place] [address] Jan, [facility] [address] [id number] [address] [place] [address], [place] [address] Dec, [facility] [address] [id number] [address] [place] [address], [place] [address] Dec, [facility] [address] [id number] [address] [place] [address], [place] [address] Dec, [facility] [address] [id number] [address] [place] [address], [place] [address] Dec, [facility] [address] [id number] [address] [place] [address], [place] [address] Nov, [facility] [address] [id number] [address] [place] [address], [place] [address] Nov, [facility] [address] [id number] [address] [place] [address], [place] [address] Nov, [facility] [address] [id number] [address] [place] [address], [place] [address] Nov, [facility] [address] [id number] [address] [place] [address], [place] [address] Nov, [facility] [address] [id number] [address] [place] [address], [place] [address] Nov, [facility] [address] [id number] [address] [place] [address], [place] [address] Nov, [facility] [address] [id number] [address] [place] [address], [place] [address] Nov, [facility] [address] [id number] [address] [place] [address], [place] [address] Nov, [facility] [address] [id number] [address] [place] [address], [place] [address] Oct, [facility] [address] [id number] [address] [place] [address] Oct, [facility] [address] [id number] [address] [place] [address] Sep, [facility] [address] [id number] [address] [place] [address] Sep, [facility] [address] [id number] [address] [place] [address] Sep, [facility] [address] [id number] [address] [place] [address] Sep, [facility] [address] [id number] [address] [place] [address], [place] [address] Sep, [facility] [address] [id number] [address] [place] [address], [place] [address] Sep, [facility] [address] [id number] [address] [place] [address], [place] [address] Sep, [facility] [address] [id number] [address] [place] [address], [place] [address] Sep, [facility] [address] [id number] [address] [place] [address], [place] [address] Sep, [facility] [address] [id number] [address] [place] [address], [place] [address] Sep, [facility] [address] [id number] [address] [place] [address], [place] [address] Sep, [facility] [address] [id number] [address] [place] [address], [place] [address] Sep, [facility] [address] [id number] [address] [place] [address], [place] [address] Sep, [facility] [address] [id number] [address] [place] [address], [place] [address] Sep, [facility] [address] [id number] [address] [place] [address], [place] [address] August, [facility] [address] [id number] [address] [place] [address], [place] [address] August, [facility] [address] [id number] [address] [place] [address], [place] [address] August, [facility] [address] [id number] [address] [place] [address], [place] [address] August, [facility] [address] [id number] [address] [place] [address], [place] [address] Jul, [facility] [address] [id number] [address] [place] [address], [place] [address] Jul, [facility] [address] [id number] [address] [place] [address], [place] [address] Jul, [facility] [address] [id number] [address] [place] [address], [place] [address] Jul, [facility] [address] [id number] [address] [place] [address], [place] [address] Jun, [facility] [address] [address] [id number] [address] [place] [address], [place] [address] Jun, [facility] [address] [id number] [address] [place] [address], [place] [address] May, [facility] [address] [id number] [address] [place] [address], [place] [address] May, [facility] [address] [id number] [address] [place] [address], [place] [address] May, [facility] [address] [id number] [address] [place] [address], [place] [address] May, [facility] [address] [id number] [address] [place] [address], [place] [address] May, [facility] [address] [id number] [address] [place] [address], [place] [address] May, [facility] [address] [id number] [address] [place] [address], [place] [address] May, [facility] [address] [id number] [address] [place] [address], [place] [address] May, [facility] [address] [id number] [address] [place] [address], [place] [address] May, [facility] [address] [id number] [address] [place] [address], [place] [address] Apr, [facility] [address] [id number] [address] [place] [address], [place] [address] Apr, [facility] [address] [id number] [address] [place] [address], [place] [address] Apr, [facility] [address] [id number] [address] [place] [address], [place] [address] Apr, [facility] [address] [id number] [address] [place] [address], [place] [address] Apr, [facility] [address] [id number] [address] [place] [address], [place] [address] Mar, [facility] [address] [id number] [address] [place] [address], [place] [address] Mar, [facility] [address] [id number] [address] [place] [address], [place] [address] Feb, [facility] [address] [id number] [address] [place] [address], [place] [address] Feb, [facility] [address] [id number] [address] [place] [address], [place] [address] Feb, [facility] [address] [id number] [address] [place] [address], [place] [address] Feb, [facility] [address] [id number] [address] [place] [address], [place] [address] Feb, [facility] [address] [id number] [address] [place] [address] [address] Feb, [facility] [address] [id number] [address] [place] [address], [place] [address] Feb, [facility] [address] [id number] [address] [place] [address], [place] [address] Feb, [facility] [address] [id number] [address] [place] [address], [place] [address] Feb, [facility] [address] [id number] [address] [place] [address], [place] [address] Jan, [facility] [address] [id number] [address] [place] [address], [place] [address] Jan, [facility] [address] [id number] [address] [place] [address], [place] [address] Jan, [facility] [address] [id number] [address] [place] [address], [place] [address] Jan, [facility] [address] [id number] [address] [place] [address], [place] [address] Jan, [facility] [address] [id number] [address] [place] [address], [place] [address] Dec, [facility] [address] [id number] [address] [place] [address], [place] [address] Dec, [facility] [address] [id number] [address] [place] [address], [place] [address] Nov, [facility] [address] [id number] [address] [place] [address], [place] [address] Nov, [facility] [address] [id number] [address] [place] [address], [place] [address] Oct, [facility] [address] [id number] [address] [place] [address], [place] [address] Oct, [facility] [address] [id number] [address] [place] [address], [place] [address] Oct, [facility] [address] [id number] [address] [place] [address], [place] [address] Sep, [facility] [address] [id number] [address] [place] [address], [place] [address] Sep, [facility] [address] [id number] [address] [place] [address], [place] [address] Sep, [facility] [address] [id number] [address] [place] [address], [place] [address] August, [facility] [address] [id number] [address] [place] [address], [place] [address] August, [facility] [address] [id number] [address] [place] [address], [place] [address] August, [facility] [address] [id number] [address] [place] [address], [place] [address] August, [facility] [address] [id number] [address] [place] [address], [place] [address] Jul, [facility] [address] [id number] [address] [place] [address], [place] [address] Jun, [facility] [address] [id number] [address] [place] [address], [place] [address] Jun, [facility] [address] [id number] [address] [place] [address], [place] [address] Jun, [facility] [address] [id number] [address] [place] [address], [place] [address] May, [facility] [address] [id number] [address] [place] [address], [place] [address] May, [facility] [address] [id number] [address] [place] [address], [place] [address] May, [facility] [address] [id number] [address] [place] [address], [place] [address] May, [facility] [address] [id number] [address] [place] [address], [place] [address] Apr, [facility] [address] [id number] [address] [place] [address], [place] [address] Apr, [facility] [address] [id number] [address] [place] [address], [place] [address] 15 Apr, 2012 [facility] [address] [id number] [address] [place] [address], [place] [address] 14 Apr, 2012 [facility] [address] [id number] [address] [place] [address], [place] [address] Apr, [facility] [address] [id number] [address] [place] [address], [place] [address] Mar, [facility] [address] [id number] [address] [place] [address], [place] [address] Mar, [facility] [address] [id number] [address] [place] [address], [place] [address] Mar, [facility] [address] [id number] [address] [place] [address], [place] [address] Mar, [facility] [address] [id number] [address] [place] [address], [place] [address] Mar, [facility] [address] [id number] [address] [place] [address], [place] [address] Mar, [facility] [address] [id number] [address] [place] [address], [place] [address] Mar, [facility] [address] [id number] [address] [place] [address], [place] [address] Feb, [facility] [address] [id number] [address] [place] [address], [place] [address] Feb, [facility] [address] [id number] [address] [place] [address], [place] [address] Feb, [facility] [address] [id number] [address] [place] [address], [place] [address] Feb, [facility] [address] [id number] [address] [place] [address] Feb, [facility] [address] [id number] [address] [place] [address], [place] [address] Feb, [facility] [address] [id number] [address] [place] [address] Feb, [facility] [address] [id number] [address] [place] [address], [place] [address] Feb, [facility] [address] [id number] [address] [place] [address], [place] [address] Jan, [facility] [address] [id number] [address] [place] [address], [place] [address] Jan, [facility] [address] [id number] [address] [place] [address], [place] [address] Jan, [facility] [address] [id number] [address] [place] [address], [place] [address] Jan, [facility] [address] [id number] [address] [place] [address], [place] [address] 27 Dec, 2011 [facility] [address] [id number] [address] [place] [address], [place] [address] 25 Dec, 2011 [facility] [address] [id number] [address] [place] [address], [place] [address] 18 Dec, 2011 [facility] [address] [id number] [address] [place] [address], [place] [address] 13 Dec, 2011 [facility] [address] [id number] [address] [place] [address] 11 Dec, 2011 [facility] [address] [id number] [address] [place] [address], [place] [address] Oct, [facility] [address] [id number] [address] [place] [address], [place] [address] Oct, [facility] [address] [id number] [address] [place] [address], [place] [address] Sep, [facility] [address] [id number] [address] [place] [address], [place] [address] Sep, [facility] [address] [id number] [address] [place] [address], [place] [address] August, [facility] [address] [id number] [address] [place] [address], [place] [address] August, [facility] [address] [id number] [address] [place] [address], [place] [address] Jul, [facility] [address] [id number] [address] [place] [address], [place] [address] Jun, [facility] [address] [id number] [address] [place] [address], [place] [address] Jun, [facility] [address] [id number] [address] [place] [address], [place] [address] Jun, [facility] [address] [id number] [address] [place] [address], [place] [address] Jun, [facility] [address] [id number] [address] [place] [address], [place] [address] Jun, [facility] [address] [id number] [address] [place] [address], [place] [address] 24 May, 2011 [facility] [address] [id number] [address] [place] [address], [place] [address] May, [facility] [address] [id number] [address] [place] [address], [place] [address] 20 May, 2011 [facility] [address] [id number] [address] [place] [address], [place] [address] 14 May, 2011 [facility] [address] [id number] [address] [place] [address], [place] [address] 13 May, 2011 [facility] [address] [id number] [address] [place] [address], [place] [address] 03 May, 2011 [facility] [address] [id number] [address] [place] [address] May, [facility] [address] [id number] [address] [place] [address] May, [facility] [address] [id number] [address] [place] [address] Apr, [facility] [address] [id number] [address] [place] [address] Mar, [facility] [address] [id number] [address] [place] [address] Mar, [facility] [address] [id number] [address] [place] [address] Mar, [facility] [address] [id number] [address] [place] [address] Mar, [facility] [address] [id number] [address] [place] [address] Mar, [facility] [address] [id number] [address] [place] [address] Jan, [facility] [address] [id number] [address] [place] [address] Jan, [facility] [address] [id number] [address] [place] [address] Jan, [facility] [address] [id number] [address] [place] [address] August, [facility] [address] [id number] [address] [place] [address] Mar, [facility] [address] [id number] [address] [place] [address] Feb, [facility] [address] [id number] [address] [place] [address] 14 Jan, 2010 [facility] [address] [id number] [address] [place] [address] 11 Jan, 2010 IMMUNIZATIONS No Known Immunizations [...]
--- OUTSIDE RECORDS SUMMARY | 2019-08-20 16:01 | XMS REPORT ---
Author Author Talia HUDSON Organization [facility] Address [address] [place] [address] Care Team Providers Care Graphic Arts Technician Name Role Phone KATIE HUDSON Unavailable PROBLEMS Type Condition ICD9-CM Code [id number] Code Onset Dates Condition S tatus SNOMED Code Problem CAD (coronary artery disease) I25.10 Active 58017898 Problem Osteoarthritis of knees, bilateral M17.0 Active 839867249 Problem Essential hypertension I10 Active 48514706 Problem Diabetes E11.9 Active 41072386 Problem Arthritis M19.90 Active 2886811 Problem Morbid obesity E66.01 Active 89406 6002 Problem Hyperlipemia E78.5 Active 2366906 4 ALLERGIES No Information ENCOUNTERS Encounter Location Date Diagnosis [facility] [address] [facility] [id number] [address] [place] [id number] Jul, [facility] [address] [facility] [id number] [address] [place] [phone] Jun, [facility] [address] [facility] [id number] [address] [place] [phone] Jun, [facility] [address] [facility] [id number] [address] [place] [address] Jun, Diabetes E11.9 ; Skin infect ion L08.9 and Essential hypertension I10 [facility] [address] [facility] [id number] [address] [place] [id number] 05 May, 2019 [facility] [address] [facility] [id number] [address] [place] [place] [address] May, [facility] [address] [facility] [id number] [address] [place] [place] [phone] May, [facility] [address] [facility] [id number] [address] [place] [place] [phone] Apr, [facility] [address] [facility] [id number] [place] [phone] Mar, [facility] [address] [place] [id number] [place] [address] Mar, [facility] [address] [place] [id number] [place] [address] Feb, [facility] [address] [address] Nov, [facility] [address] [address] Nov, Diabetes E11.9 and Syncope, unspecified syncope type R55 [place] [address] [address] Nov, Osteoarthritis of knees, natan ateral M17.0 [place] [address] [address] Oct, Diabetes E11.9 ; CAD (guardado ry artery disease) I25.10 ; Essential hypertension I10 and Hyperlipemia E78.5 [place] [address] [address] Sep, [facility] [address] [address] Jul, [facility] [address] [address] Apr, [facility] [address] [address] Mar, Pustular lesion L08.9 and En counter for immunization Z23 [facility] [address] [place] [id number] [address] [place] [place] [phone] Feb, [facility] [address] [address] Dec, [facility] [address] [facility] [id number] [address] [place] [place] [address] Dec, [facility] [address] [facility] [id number] [address] [place] [place] [address] Dec, Diabetes E11.9 ; Essential h ypertension I10 ; Arthritis M19.90 ; Urinary frequency R35.0 ; Routine adult health maintenance Z00.00 and BMI 45.0- 49.9, adult Z68.42 [facility] [address] [facility] [id number] [address] [place] [id number] 18 Dec, 2017 [facility] [address] [facility] [id number] [address] [place] [place] [address] Dec, [facility] [address] [facility] [id number] [address] [place] [place] [address] Oct, [facility] [address] [place] [id number] [address] [place] [place] [address] Sep, Diabetes E11.9 [facility] [address] [facility] [id number] [address] [place] [place] [address] Sep, Diabetes E11.9 ; Hyperlipemi a E78.5 ; CAD (coronary artery disease) I25.10 ; Essential hypertension I10 and BMI 45.0-49.9, adult Z68.42 [facility] [address] [place] [id number] [address] [place] [place] [address] Sep, [facility] [address] [place] [id number] [address] [place] [place] [address] August, [facility] [address] [facility] [id number] [address] [place] [place] [address] Jan, Dysuria R30.0 [place] [address] [place] [id number] [address] [place] [place] [address] Jan, Dysuria R30.0 [facility] [address] [place] [id number] [address] [place] [place] [address] Jan, Osteoarthritis of knees, natan ateral M17.0 [place] [id number] [place] [id number] [address] [place] [address] 14 Nov, 2016 Dysuria R30.0 [place] [address] [place] [id number] [place] [address] Oct, Blood in urine R31.9 ; Dysur ia R30.0 ; Pharyngeal dysphagia R13.13 ; Acute cystitis with hematuria N30.01 ; CAD (coronary artery disease) I25.10 and Diabetes E11.9 [place] [address] [place] [id number] [address] [place] [address] Oct, [place] [address] [address] Sep, Arthritis M19.90 ; Blood in urine R31.9 ; Diabetes E11.9 ; Acute cystitis with hematuria N30.01 and Pharyngoesophageal dysphagia R13.14 [place] [address] [address] Sep, Osteoarthritis of knees, natan ateral M17.0 [place] [address] [address] Sep, Osteoarthritis of knees, natan ateral M17.0 [place] [address] [place] [id number] [place] [place] [address] August, Arthritis M19.90 [place] [address] [place] [id number] [address] [place] [place] [address] Jul, Arthritis M19.90 [place] [address] [place] [id number] [address] [place] [place] [address] Jun, Arthritis M19.90 [place] [address] [place] [id number] [place] [phone] Jun, [place] [address] [place] [id number] [place] [place] [address] Jun, [place] [address] [place] [id number] [place] [address] May, Diabetes E11.9 ; Dysuria R30 .0 and Arthritis M19.90 [facility] [address] [id number] [address] [place] [place] [address] Apr, [facility] [address] [id number] [address] [place] [place] [address] Apr, Arthritis M19.90 [facility] [address] [id number] [address] [place] [place] [address] Mar, Arthritis M19.90 [facility] [address] [id number] [address] [place] [place] [address] Feb, [facility] [address] [id number] [address] [place] [place] [address] Jan, [facility] [address] [id number] [address] [place] [address] Dec, Diabetes E11.9 and Arthritis M19.90 [facility] [address] [id number] [address] [place] [place] [address] Dec, [facility] [address] [id number] [address] [place] [place] [address] Nov, Arthritis M19.90 [facility] [address] [id number] [address] [place] [address] Nov, [facility] [address] [id number] [address] [place] [address] Oct, Arthritis M19.90 [facility] [address] [id number] [address] [place] [address] Sep, Osteoarthritis of knees, natan ateral M17.0 [facility] [address] [id number] [address] [place] [place] [id number] 09 Sep, 2015 Osteoarthritis of knees, natan ateral M17.0 [facility] [address] [id number] [address] [place] [place] [address] August, Arthritis M19.90 [facility] [address] [id number] [address] [place] [place] [address] August, [facility] [address] [facility] [id number] [address] [place] [place] [address] Jul, Hyperlipemia E78.5 [facility] [address] [facility] [id number] [address] [place] [place] [address] Jul, Encounter for well woman exa m Z01.419 ; Morbid obesity E66.01 ; Encounter for screening for malignant neoplasm of cervix Z12.4 and Encounter for screening mammogram for breast cancer Z12.31 [facility] [address] [facility] [id number] [address] [place] [place] [address] Jul, Arthritis M19.90 ; Diabetes E11.9 ; Blood in urine R31.9 and UTI (urinary tract infection) N39.0 [facility] [address] [facility] [id number] [address] [place] [place] [phone] Jul, [facility] [address] [facility] [id number] [address] [place] [place] [address] Jun, Arthritis M19.90 [facility] [address] [facility] [id number] [address] [place] [place] [address] May, Arthritis M19.90 [facility] [address] [facility] [id number] [address] [place] [place] [address] May, [facility] [address] [facility] [id number] [address] [place] [address] Apr, [facility] [address] [facility] [id number] [address] [place] [place] [address] Apr, Arthritis M19.90 ; Diabetes E11.9 and Morbid obesity E66.01 [facility] [address] [facility] [facility] [id number] [address] [place] [place] [address] Apr, [facility] [address] [facility] [id number] [address] [place] [place] [address] 18 Apr, 2015 Dyspareunia N94.1 [facility] [address] [id number] [address] [place] [place] [id number] 15 Apr, 2015 [facility] [address] [id number] [address] [place] [id number] 15 Apr, 2015 [facility] [address] [id number] [address] [place] [id number] 14 Apr, 2015 Osteoarthritis of knees, natan ateral M17.0 [facility] [address] [id number] [address] [place] [place] [id number] 14 Apr, 2015 Diabetes E11.9 and CAD (elysia nary artery disease) I25.10 [facility] [address] [id number] [address] [place] [place] [phone] 08 Mar, 2015 [facility] [address] [id number] [address] [place] [phone] Feb, [facility] [address] [id number] [address] [place] [phone] 30 Jan, 2015 [facility] [address] [id number] [address] [place] [address] Jan, [facility] [address] [id number] [address] [place] [phone] Jan, [facility] [address] [id number] [address] [place] [address] Jan, Osteoarthritis of knees, natan ateral M17.0 [facility] [address] [id number] [address] [place] [place] [id number] 30 Dec, 2014 [facility] [address] [id number] [address] [place] [id number] 17 Dec, 2014 [facility] [address] [id number] [address] [place] [id number] 10 Dec, 2014 [facility] [address] [id number] [address] [place] [place] [address] Dec, Diabetes mellitus 250.00 and UTI (urinary tract infection) 599.0 [facility] [address] [id number] [address] [place] [address], [place] [address] Dec, [facility] [address] [id number] [address] [place] [address], [place] [address] Nov, [facility] [address] [id number] [address] [place] [address], [place] [address] Oct, [facility] [address] [id number] [address] [place] [address], [place] [address] Oct, [facility] [address] [id number] [address] [place] [address], [place] [address] Oct, [facility] [address] [id number] [address] [place] [address], [place] [address] Oct, [facility] [address] [id number] [address] [place] [address], [place] [address] Oct, [facility] [address] [id number] [address] [place] [address], [place] [address] Sep, [facility] [address] [id number] [address] [place] [address], [place] [address] August, [facility] [address] [id number] [address] [place] [address], [place] [address] August, [facility] [address] [id number] [address] [place] [address], [place] [address] August, [facility] [address] [id number] [address] [place] [address], [place] [address] Jul, [facility] [address] [id number] [address] [place] [phone] Jul, [facility] [address] [id number] [address] [place] [address] Jul, [facility] [address] [id number] [address] [place] [phone] Jun, [facility] [address] [id number] [facility] [place] [address] Jun, [facility] [address] [id number] [address] [place] [address], [place] [address] Jun, [facility] [address] [id number] [facility] [place] [address] Jun, [facility] [address] [id number] [address] [place] [address], [place] [address] Jun, [facility] [address] [id number] [address] [place] [address], [place] [address] Jun, [facility] [address] [id number] [address] [place] [address], [place] [address] Jun, [facility] [address] [id number] [address] [place] [address], [place] [address] Jun, [facility] [address] [id number] [address] [place] [address], [place] [address] May, [facility] [address] [id number] [address] [place] [address], [place] [address] May, [facility] [address] [id number] [address] [place] [address], [place] [address] May, [facility] [address] [id number] [address] [place] [address], [place] [address] May, [facility] [address] [id number] [address] [place] [address], [place] [address] May, 2014 [facility] [address] [id number] [address] [place] [address], [place] [address] May, [facility] [address] [id number] [address] [place] [address], [place] [address] May, 2014 [facility] [address] [id number] [address] [place] [address], [place] [address] May, 2014 [facility] [address] [id number] [address] [place] [address], [place] [address] May, 2014 [facility] [address] [id number] [address] [place] [address], [place] [address] May, 2014 [facility] [address] [id number] [address] [place] [address], [place] [address] May, 2014 [facility] [address] [id number] [address] [place] [address], [place] [address] May, 2014 [facility] [address] [id number] [address] [place] [address], [place] [address] Apr, [facility] [address] [id number] [address] [place] [address], [place] [address] Apr, [facility] [address] [id number] [address] [place] [address], [place] [address] Mar, [facility] [address] [id number] [address] [place] [address], [place] [address] Mar, [facility] [address] [id number] [address] [place] [address], [place] [address] Mar, [facility] [address] [id number] [address] [place] [address], [place] [address] Mar, [facility] [address] [id number] [address] [place] [address], [place] [address] Mar, [facility] [address] [id number] [address] [place] [address], [place] [address] Mar, [facility] [address] [id number] [address] [place] [address], [place] [address] Feb, [facility] [address] [id number] [address] [place] [address], [place] [address] Feb, [facility] [address] [id number] [address] [place] [address], [place] [address] Feb, [facility] [address] [id number] [address] [place] [address], [place] [address] Feb, [facility] [address] [id number] [address] [place] [address], [place] [address] Feb, [facility] [address] [id number] [address] [place] [address], [place] [address] Feb, [facility] [address] [id number] [address] [place] [address], [place] [address] Feb, [facility] [address] [id number] [address] [place] [address], [place] [address] Feb, [facility] [address] [id number] [address] [place] [address], [place] [address] Feb, [facility] [address] [id number] [address] [place] [address], [place] [address] Jan, [facility] [address] [id number] [address] [place] [address], [place] [address] Jan, [facility] [address] [id number] [address] [place] [place] [address] Jan, [facility] [address] [id number] [address] [place] [address], [place] [address] Jan, [facility] [address] [id number] [address] [place] [place] [address] Jan, [facility] [address] [id number] [address] [place] [place] [address] Jan, [facility] [address] [id number] [address] [place] [place] [address] Jan, [facility] [address] [id number] [address] [place] [address], [place] [address] Jan, [facility] [address] [id number] [address] [place] [place] [address] Jan, [facility] [address] [id number] [address] [place] [place] [id number] Jan, [facility] [address] [id number] [address] [place] [place] [address] Dec, [facility] [address] [id number] [address] [place] [address], [place] [address] Dec, [facility] [address] [id number] [address] [place] [address], [place] [address] Dec, [facility] [address] [id number] [address] [place] [address], [place] [address] Dec, [facility] [address] [id number] [address] [place] [address], [place] [address] Nov, [facility] [address] [id number] [address] [place] [address], [place] [address] Nov, [facility] [address] [id number] [address] [place] [address], [place] [address] Nov, [facility] [address] [id number] [address] [place] [address], [place] [address] Nov, [facility] [address] [id number] [address] [place] [address], [place] [address] Nov, [facility] [address] [id number] [address] [place] [address], [place] [address] Nov, [facility] [address] [id number] [address] [place] [address], [place] [address] Nov, [facility] [address] [id number] [address] [place] [address], [place] [address] Nov, [facility] [address] [id number] [address] [place] [address], [place] [address] Nov, [facility] [address] [id number] [address] [place] [address], [place] [address] Oct, [facility] [address] [id number] [address] [place] [address], [place] [address] Oct, [facility] [address] [id number] [address] [place] [address], [place] [address] Sep, [facility] [address] [id number] [address] [place] [address] Sep, [facility] [address] [id number] [facility] [place] [address] Sep, [facility] [address] [id number] [facility] [place] [address] Sep, [facility] [address] [id number] [facility] [place] [address] Sep, [facility] [address] [id number] [facility] [place] [address] Sep, [facility] [address] [id number] [facility] [place] [address] Sep, [facility] [address] [id number] [address] [place] [address], [place] [address] Sep, [facility] [address] [id number] [address] [place] [address], [place] [address] Sep, [facility] [address] [id number] [address] [place] [address], [place] [address] Sep, [facility] [address] [id number] [address] [place] [address], [place] [address] Sep, [facility] [address] [id number] [address] [place] [address], [place] [address] Sep, [facility] [address] [id number] [address] [place] [address], [place] [address] Sep, [facility] [address] [id number] [address] [place] [address], [place] [address] Sep, [facility] [address] [id number] [address] [place] [address], [place] [address] August, [facility] [address] [id number] [address] [place] [address], [place] [address] August, [facility] [address] [id number] [address] [place] [address], [place] [address] August, [facility] [address] [id number] [address] [place] [address], [place] [address] August, [facility] [address] [id number] [address] [place] [address], [place] [address] Jul, [facility] [address] [id number] [address] [place] [address], [place] [address] Jul, [facility] [address] [id number] [address] [place] [address], [place] [address] Jul, [facility] [address] [id number] [address] [place] [address], [place] [address] Jul, [facility] [address] [id number] [address] [place] [address], [place] [address] Jun, [facility] [address] [id number] [address] [place] [address], [place] [address] Jun, [facility] [address] [id number] [address] [place] [address], [place] [address] May, [facility] [address] [id number] [address] [place] [address], [place] [address] May, [facility] [address] [id number] [address] [place] [address], [place] [address] May, [facility] [address] [id number] [address] [place] [address], [place] [address] May, [facility] [address] [id number] [address] [place] [address], [place] [address] May, [facility] [address] [id number] [address] [place] [address], [place] [address] May, [facility] [address] [id number] [address] [place] [address], [place] [address] May, [facility] [address] [id number] [address] [place] [address], [place] [address] May, [facility] [address] [id number] [address] [place] [address], [place] [address] May, [facility] [address] [id number] [address] [place] [address], [place] [address] Apr, [facility] [address] [id number] [address] [place] [address], [place] [address] Apr, [facility] [address] [id number] [address] [place] [address], [place] [address] Apr, [facility] [address] [id number] [address] [place] [address], [place] [address] Apr, [facility] [address] [id number] [address] [place] [address], [place] [address] Apr, [facility] [address] [id number] [address] [place] [address], [place] [address] Mar, [facility] [address] [id number] [address] [place] [address], [place] [address] Mar, [facility] [address] [id number] [address] [place] [address], [place] [address] Feb, [facility] [address] [id number] [address] [place] [address], [place] [address] Feb, [facility] [address] [id number] [address] [place] [address], [place] [address] Feb, [facility] [address] [id number] [address] [place] [address], [place] [address] Feb, [facility] [address] [id number] [address] [place] [address], [place] [address] Feb, [facility] [address] [id number] [address] [place] [address], [place] [address] Feb, [facility] [address] [id number] [address] [place] [address], [place] [address] Feb, [facility] [address] [id number] [address] [place] [address] [address] Feb, [facility] [address] [id number] [address] [place] [address], [place] [address] Feb, [facility] [address] [id number] [address] [place] [address], [place] [address] Jan, [facility] [address] [id number] [address] [place] [address], [place] [address] Jan, [facility] [address] [id number] [address] [place] [address], [place] [address] Jan, [facility] [address] [id number] [address] [place] [address], [place] [address] Jan, [facility] [address] [id number] [address] [place] [address], [place] [address] Jan, [facility] [address] [id number] [address] [place] [address], [place] [address] Dec, [facility] [address] [id number] [address] [place] [address], [place] [address] Dec, [facility] [address] [id number] [address] [place] [address], [place] [address] Nov, [facility] [address] [id number] [address] [place] [address], [place] [address] Nov, [facility] [address] [id number] [address] [place] [address], [place] [address] Oct, [facility] [address] [id number] [address] [place] [place] [address] Oct, [facility] [address] [id number] [address] [place] [address], [place] [address] Oct, [facility] [address] [id number] [address] [place] [address], [place] [address] Sep, [facility] [address] [id number] [address] [place] [address], [place] [address] Sep, [facility] [address] [id number] [address] [place] [address], [place] [address] 07 Sep, 2012 [facility] [address] [id number] [address] [place] [address], [place] [address] August, [facility] [address] [id number] [address] [place] [address], [place] [address] August, [facility] [address] [id number] [address] [place] [address], [place] [address] August, [facility] [address] [id number] [address] [place] [address], [place] [address] August, [facility] [address] [id number] [address] [place] [address], [place] [address] Jul, [facility] [address] [id number] [address] [place] [address], [place] [address] Jun, [facility] [address] [id number] [address] [place] [address], [place] [address] Jun, [facility] [address] [id number] [address] [place] [address], [place] [address] 05 Jun, 2012 [facility] [address] [id number] [address] [place] [address], [place] [address] May, [facility] [address] [id number] [address] [place] [address], [place] [address] May, [facility] [address] [id number] [address] [place] [address], [place] [address] May, [facility] [address] [id number] [address] [place] [address], [place] [address] May, [facility] [address] [id number] [address] [place] [address], [place] [address] Apr, [facility] [address] [id number] [address] [place] [address], [place] [address] Apr, [facility] [address] [id number] [address] [place] [address], [place] [address] Apr, [facility] [address] [id number] [address] [place] [address], [place] [address] Apr, [facility] [address] [id number] [address] [place] [address], [place] [address] Apr, [facility] [address] [id number] [address] [place] [address], [place] [address] Mar, [facility] [address] [id number] [address] [place] [address], [place] [address] Mar, [facility] [address] [id number] [address] [place] [address], [place] [address] Mar, [facility] [address] [id number] [address] [place] [address], [place] [address] Mar, [facility] [address] [id number] [address] [place] [address], [place] [address] Mar, [facility] [address] [id number] [address] [place] [address], [place] [address] Mar, [facility] [address] [id number] [address] [place] [address], [place] [address] Mar, [facility] [address] [id number] [address] [place] [address], [place] [address] Feb, [facility] [address] [id number] [address] [place] [address], [place] [address] Feb, [facility] [address] [id number] [address] [place] [address], [place] [address] Feb, [facility] [address] [id number] [address] [place] [address], [place] [address] Feb, [facility] [address] [id number] [address] [place] [address], [place] [address] Feb, [facility] [address] [id number] [address] [place] [address], [place] [address] Feb, [facility] [address] [id number] [address] [place] [address] Feb, [facility] [address] [id number] [address] [place] [address], [place] [address] Feb, [facility] [address] [id number] [address] [place] [address], [place] [address] Jan, [facility] [address] [id number] [address] [place] [address], [place] [address] Jan, [facility] [address] [id number] [address] [place] [address], [place] [address] Jan, [facility] [address] [id number] [address] [place] [address], [place] [address] Jan, [facility] [address] [id number] [address] [place] [address], [place] [address] 27 Dec, 2011 [facility] [address] [id number] [address] [place] [address], [place] [address] 25 Dec, 2011 [facility] [address] [id number] [address] [place] [address], [place] [address] 18 Dec, 2011 [facility] [address] [id number] [address] [place] [address], [place] [address] 13 Dec, 2011 [facility] [address] [id number] [address] [place] [address], [place] [address] 11 Dec, 2011 [facility] [address] [id number] [address] [place] [address], [place] [address] Oct, [facility] [address] [id number] [address] [place] [address] Oct, [facility] [address] [id number] [address] [place] [address], [place] [address] Sep, [facility] [address] [id number] [address] [place] [address], [place] [address] Sep, [facility] [address] [id number] [address] [place] [address], [place] [address] August, [facility] [address] [id number] [address] [place] [address], [place] [address] August, [facility] [address] [id number] [address] [place] [address], [place] [address] 04 Jul, 2011 [facility] [address] [id number] [address] [place] [address], [place] [address] 28 Jun, 2011 [facility] [address] [id number] [address] [place] [address], [place] [address] Jun, [facility] [address] [id number] [address] [place] [address], [place] [address] 23 Jun, 2011 [facility] [address] [id number] [address] [place] [address], [place] [address] Jun, [facility] [address] [id number] [address] [place] [address], [place] [address] Jun, [facility] [address] [id number] [address] [place] [address], [place] [address] 24 May, 2011 [facility] [address] [id number] [address] [place] [address], [place] [address] May, [facility] [address] [id number] [address] [place] [address], [place] [address] 20 May, 2011 [facility] [address] [id number] [address] [place] [address], [place] [address] 14 May, 2011 [facility] [address] [id number] [address] [place] [address], [place] [address] 13 May, 2011 [facility] [address] [id number] [address] [place] [address], [place] [address] 03 May, 2011 [facility] [address] [id number] [address] [place] [address], [place] [address] 02 May, 2011 [facility] [address] [id number] [address] [place] [address], [place] [address] 02 May, 2011 [facility] [address] [id number] [address] [place] [address] Apr, [facility] [address] [id number] [address] [place] [id number] Mar, [facility] [address] [id number] [address] [place] [address] Mar, [facility] [address] [id number] [address] [place] [address] Mar, [facility] [address] [id number] [address] [place] [id number] Mar, [facility] [address] [id number] [address] [place] [id number] Mar, [facility] [address] [id number] [address] [place] [address] Jan, [facility] [address] [id number] [address] [place] [place] [id number] Jan, [facility] [address] [id number] [address] [place] [id number] Jan, [facility] [address] [id number] [address] [place] [id number] August, [facility] [address] [id number] [address] [place] [address] Mar, [facility] [address] [id number] [address] [place] [id number] Feb, [facility] [address] [id number] [address] [place] [id number] Jan, [facility] [address] [id number] [address] [place] [id number] Jan, IMMUNIZATIONS No Known Immunizations SOCIAL HISTORY [...]
--- OUTSIDE RECORDS SUMMARY | 2019-08-20 16:01 | XMS REPORT ---
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 Name Role Phone KATIE HUDSON Unavailable PROBLEMS Type Condition ICD9-CM Code [id number] Code Onset Dates Condition S tatus SNOMED Code Problem CAD (coronary artery disease) I25.10 Active 16683250 Problem Osteoarthritis of knees, bilateral M17.0 Active 526538575 Problem Essential hypertension I10 Active 24853155 Problem Diabetes E11.9 Active 58198247 Problem Arthritis M19.90 Active 7520341 Problem Morbid obesity E66.01 Active 97290 6002 Problem Hyperlipemia E78.5 Active 3378292 4 ALLERGIES No Information ENCOUNTERS Encounter Location Date Diagnosis [facility] [address] [facility] [id number] [address] [place] [address] Jul, [facility] [address] [facility] [id number] [address] [place] [address] Jun, [facility] [address] [facility] [id number] [address] [place] [address] Jun, [facility] [address] [facility] [id number] [address] [place] [address] Jun, Diabetes E11.9 ; Skin infect ion L08.9 and Essential hypertension I10 [facility] [address] [facility] [id number] [address] [place] [phone] 05 May, 2019 [facility] [address] [facility] [id number] [address] [place] [address] May, [facility] [address] [facility] [id number] [address] [place] [address] May, [facility] [address] [facility] [id number] [address] [place] [address] Apr, [facility] [address] [facility] [id number] [place] [phone] Mar, [facility] [address] [place] [id number] [place] [address] Mar, [facility] [address] [id number] [place] [address] Feb, [facility] [address] [address] Nov, [facility] [address] [address] Nov, Diabetes E11.9 and Syncope, unspecified syncope type R55 [place] [address] [address] Nov, Osteoarthritis of knees, natan ateral M17.0 [place] [address] [address] Oct, Diabetes E11.9 ; CAD (guardado ry artery disease) I25.10 ; Essential hypertension I10 and Hyperlipemia E78.5 [place] [address] [address] Sep, [facility] [address] [address] Jul, [facility] [address] [address] Apr, [facility] [address] [address] Mar, Pustular lesion L08.9 and En counter for immunization Z23 [facility] [address] [place] [id number] [address] [place] [address] Feb, [facility] [address] [address] Dec, [facility] [address] [facility] [id number] [address] [place] [address] Dec, [facility] [address] [facility] [id number] [address] [place] [address] Dec, Diabetes E11.9 ; Essential h ypertension I10 ; Arthritis M19.90 ; Urinary frequency R35.0 ; Routine adult health maintenance Z00.00 and BMI 45.0- 49.9, adult Z68.42 [facility] [address] [facility] [id number] [address] [place] [address] 18 Dec, 2017 [facility] [address] [facility] [id number] [address] [place] [address] Dec, [facility] [address] [facility] [id number] [address] [place] [address] Oct, [facility] [address] [place] [id number] [address] [place] [address] Sep, Diabetes E11.9 [facility] [address] [facility] [id number] [address] [place] [address] Sep, Diabetes E11.9 ; Hyperlipemi a E78.5 ; CAD (coronary artery disease) I25.10 ; Essential hypertension I10 and BMI 45.0-49.9, adult Z68.42 [facility] [address] [place] [id number] [address] [place] [address] Sep, [facility] [address] [place] [id number] [address] [place] [address] August, [facility] [address] [facility] [id number] [address] [place] [address] Jan, Dysuria R30.0 [place] [address] [place] [id number] [address] [place] [address] Jan, Dysuria R30.0 [facility] [address] [place] [id number] [address] [place] [address] Jan, Osteoarthritis of knees, natan ateral M17.0 [place] [address] [place] [id number] [address] [place] [address] 14 Nov, 2016 Dysuria R30.0 [place] [address] [place] [id number] [place] [address] Oct, Blood in urine R31.9 ; Dysur ia R30.0 ; Pharyngeal dysphagia R13.13 ; Acute cystitis with hematuria N30.01 ; CAD (coronary artery disease) I25.10 and Diabetes E11.9 [place] [address] [place] [id number] [address] [place] [address] Oct, [place] [address] [address] Sep, Arthritis M19.90 ; Blood in urine R31.9 ; Diabetes E11.9 ; Acute cystitis with hematuria N30.01 and Pharyngoesophageal dysphagia R13.14 [place] [address] [address] Sep, Osteoarthritis of knees, natan ateral M17.0 [place] [address] [address] Sep, Osteoarthritis of knees, natan ateral M17.0 [place] [address] [place] [id number] [address] [place] [address] August, Arthritis M19.90 [place] [address] [place] [id number] [address] [place] [address] Jul, Arthritis M19.90 [place] [address] [place] [id number] [address] [place] [address] Jun, Arthritis M19.90 [place] [address] [place] [id number] [place] [address] Jun, [place] [address] [place] [id number] [address] [place] [address] Jun, [place] [address] [place] [id number] [address] [place] [address] May, Diabetes E11.9 ; Dysuria R30 .0 and Arthritis M19.90 [facility] [address] [id number] [address] [place] [address] Apr, [facility] [address] [id number] [address] [place] [address] Apr, Arthritis M19.90 [facility] [address] [id number] [address] [place] [address] Mar, Arthritis M19.90 [facility] [address] [id number] [address] [place] [address] Feb, [facility] [address] [id number] [address] [place] [address] Jan, [facility] [address] [id number] [address] [place] [address] Dec, Diabetes E11.9 and Arthritis M19.90 [facility] [address] [id number] [address] [place] [address] Dec, [facility] [address] [id number] [address] [place] [address] Nov, Arthritis M19.90 [facility] [address] [id number] [address] [place] [address] Nov, [facility] [address] [id number] [address] [place] [address] Oct, Arthritis M19.90 [facility] [address] [id number] [address] [place] [address] Sep, Osteoarthritis of knees, natan ateral M17.0 [facility] [address] [id number] [address] [place] [phone] 09 Sep, 2015 Osteoarthritis of knees, natan ateral M17.0 [facility] [address] [id number] [address] [place] [address] August, Arthritis M19.90 [facility] [address] [id number] [address] [place] [address] August, [facility] [address] [facility] [id number] [address] [place] [address] Jul, Hyperlipemia E78.5 [facility] [address] [facility] [id number] [address] [place] [address] Jul, Encounter for well woman exa m Z01.419 ; Morbid obesity E66.01 ; Encounter for screening for malignant neoplasm of cervix Z12.4 and Encounter for screening mammogram for breast cancer Z12.31 [facility] [address] [facility] [id number] [address] [place] [address] Jul, Arthritis M19.90 ; Diabetes E11.9 ; Blood in urine R31.9 and UTI (urinary tract infection) N39.0 [facility] [address] [facility] [id number] [address] [place] [address] Jul, [facility] [address] [facility] [id number] [address] [place] [address] Jun, Arthritis M19.90 [facility] [address] [facility] [id number] [address] [place] [address] May, Arthritis M19.90 [facility] [address] [facility] [id number] [address] [place] [address] May, [facility] [address] [facility] [id number] [address] [place] [address] Apr, [facility] [address] [facility] [id number] [address] [place] [address] Apr, Arthritis M19.90 ; Diabetes E11.9 and Morbid obesity E66.01 [facility] [address] [facility] [id number] [address] [place] [address] Apr, [facility] [address] [facility] [id number] [address] [place] [phone] 18 Apr, 2015 Dyspareunia N94.1 [facility] [address] [id number] [address] [place] [phone] 15 Apr, 2015 [facility] [address] [id number] [address] [place] [phone] 15 Apr, 2015 [facility] [address] [id number] [address] [place] [phone] 14 Apr, 2015 Osteoarthritis of knees, natan ateral M17.0 [facility] [address] [id number] [address] [place] [address] 14 Apr, 2015 Diabetes E11.9 and CAD (elysia nary artery disease) I25.10 [facility] [address] [id number] [address] [place] [phone] 08 Mar, 2015 [facility] [address] [id number] [address] [place] [phone] Feb, [facility] [address] [id number] [address] [place] [phone] 30 Jan, 2015 [facility] [address] [id number] [address] [place] [address] Jan, [facility] [address] [id number] [address] [place] [phone] Jan, [facility] [address] [id number] [address] [place] [phone] Jan, Osteoarthritis of knees, natan ateral M17.0 [facility] [address] [id number] [address] [place] [phone] 30 Dec, 2014 [facility] [address] [id number] [address] [place] [phone] 17 Dec, 2014 [facility] [address] [id number] [address] [place] [id number] 10 Dec, 2014 [facility] [address] [id number] [address] [place] [address] Dec, Diabetes mellitus 250.00 and UTI (urinary tract infection) 599.0 [facility] [address] [id number] [address] [place] [address], [place] [address] Dec, [facility] [address] [id number] [address] [place] [address], [place] [address] Nov, [facility] [address] [id number] [address] [place] [address], [place] [address] Oct, [facility] [address] [id number] [address] [place] [address], [place] [address] Oct, [facility] [address] [id number] [address] [place] [address], [place] [address] Oct, [facility] [address] [id number] [address] [place] [address], [place] [address] Oct, [facility] [address] [id number] [address] [place] [address], [place] [address] Oct, [facility] [address] [id number] [address] [place] [address], [place] [address] Sep, [facility] [address] [id number] [address] [place] [address], [place] [address] August, [facility] [address] [id number] [address] [place] [address], [place] [address] August, [facility] [address] [id number] [address] [place] [address], [place] [address] August, [facility] [address] [id number] [address] [place] [address], [place] [address] Jul, [facility] [address] [id number] [address] [place] [phone] Jul, [facility] [address] [id number] [address] [place] [phone] Jul, [facility] [address] [id number] [address] [place] [phone] Jun, [facility] [address] [id number] [facility] [place] [address] Jun, [facility] [address] [id number] [address] [place] [address], [place] [address] Jun, [facility] [address] [id number] [facility] [place] [address] Jun, [facility] [address] [id number] [address] [place] [address], [place] [address] Jun, [facility] [address] [id number] [address] [place] [address], [place] [address] Jun, [facility] [address] [id number] [address] [place] [address], [place] [address] Jun, [facility] [address] [id number] [address] [place] [address], [place] [address] Jun, [facility] [address] [id number] [address] [place] [address], [place] [address] May, [facility] [address] [id number] [address] [place] [address], [place] [address] May, [facility] [address] [id number] [address] [place] [address], [place] [address] May, [facility] [address] [id number] [address] [place] [address], [place] [address] May, [facility] [address] [id number] [address] [place] [address], [place] [address] May, 2014 [facility] [address] [id number] [address] [place] [address], [place] [address] May, [facility] [address] [id number] [address] [place] [address], [place] [address] May, 2014 [facility] [address] [id number] [address] [place] [address], [place] [address] May, 2014 [facility] [address] [id number] [address] [place] [address], [place] [address] May, 2014 [facility] [address] [id number] [address] [place] [address], [place] [address] May, 2014 [facility] [address] [id number] [address] [place] [address], [place] [address] May, 2014 [facility] [address] [id number] [address] [place] [address], [place] [address] May, 2014 [facility] [address] [id number] [address] [place] [address], [place] [address] Apr, [facility] [address] [id number] [address] [place] [address], [place] [address] Apr, [facility] [address] [id number] [address] [place] [address], [place] [address] Mar, [facility] [address] [id number] [address] [place] [address], [place] [address] Mar, [facility] [address] [id number] [address] [place] [address], [place] [address] Mar, [facility] [address] [id number] [address] [place] [address], [place] [address] Mar, [facility] [address] [id number] [address] [place] [address], [place] [address] Mar, [facility] [address] [id number] [address] [place] [address], [place] [address] Mar, [facility] [address] [id number] [address] [place] [address], [place] [address] Feb, [facility] [address] [id number] [address] [place] [address], [place] [address] Feb, [facility] [address] [id number] [address] [place] [address], [place] [address] Feb, [facility] [address] [id number] [address] [place] [address], [place] [address] Feb, [facility] [address] [id number] [address] [place] [address], [place] [address] Feb, [facility] [address] [id number] [address] [place] [address], [place] [address] Feb, [facility] [address] [id number] [address] [place] [address], [place] [address] Feb, [facility] [address] [id number] [address] [place] [address], [place] [address] Feb, [facility] [address] [id number] [address] [place] [address], [place] [address] Feb, [facility] [address] [id number] [address] [place] [address], [place] [address] Jan, [facility] [address] [id number] [address] [place] [address], [place] [address] Jan, [facility] [address] [id number] [address] [place] [address] Jan, [facility] [address] [id number] [address] [place] [address], [place] [address] Jan, [facility] [address] [id number] [address] [place] [address] Jan, [facility] [address] [id number] [address] [place] [address] Jan, [facility] [address] [id number] [address] [place] [address] Jan, [facility] [address] [id number] [address] [place] [address], [place] [address] Jan, [facility] [address] [id number] [address] [place] [address] Jan, [facility] [address] [id number] [address] [place] [address] Jan, [facility] [address] [id number] [address] [place] [id number] Dec, [facility] [address] [id number] [address] [place] [address], [place] [address] Dec, [facility] [address] [id number] [address] [place] [address], [place] [address] Dec, [facility] [address] [id number] [address] [place] [address], [place] [address] Dec, [facility] [address] [id number] [address] [place] [address], [place] [address] Nov, [facility] [address] [id number] [address] [place] [address], [place] [address] Nov, [facility] [address] [id number] [address] [place] [address], [place] [address] Nov, [facility] [address] [id number] [address] [place] [address], [place] [address] Nov, [facility] [address] [id number] [address] [place] [address], [place] [address] Nov, [facility] [address] [id number] [address] [place] [address], [place] [address] Nov, [facility] [address] [id number] [address] [place] [address], [place] [address] Nov, [facility] [address] [id number] [address] [place] [address], [place] [address] Nov, [facility] [address] [id number] [address] [place] [address], [place] [address] Nov, [facility] [address] [id number] [address] [place] [address], [place] [address] Oct, [facility] [address] [id number] [address] [place] [address], [place] [address] Oct, [facility] [address] [id number] [address] [place] [address], [place] [address] Sep, [facility] [address] [id number] [address] [place] [address] Sep, [facility] [address] [id number] [facility] [place] [address] Sep, [facility] [address] [id number] [facility] [place] [address] Sep, [facility] [address] [id number] [facility] [place] [address] Sep, [facility] [address] [id number] [facility] [place] [address] Sep, [facility] [address] [id number] [facility] [place] [address] Sep, [facility] [address] [id number] [address] [place] [address], [place] [address] Sep, [facility] [address] [id number] [address] [place] [address], [place] [address] Sep, [facility] [address] [id number] [address] [place] [address], [place] [address] Sep, [facility] [address] [id number] [address] [place] [address], [place] [address] Sep, [facility] [address] [id number] [address] [place] [address], [place] [address] Sep, [facility] [address] [id number] [address] [place] [address], [place] [address] Sep, [facility] [address] [id number] [address] [place] [address], [place] [address] Sep, [facility] [address] [id number] [address] [place] [address], [place] [address] August, [facility] [address] [id number] [address] [place] [address], [place] [address] August, [facility] [address] [id number] [address] [place] [address], [place] [address] August, [facility] [address] [id number] [address] [place] [address], [place] [address] August, [facility] [address] [id number] [address] [place] [address], [place] [address] Jul, [facility] [address] [id number] [address] [place] [address], [place] [address] Jul, [facility] [address] [id number] [address] [place] [address], [place] [address] Jul, [facility] [address] [id number] [address] [place] [address], [place] [address] Jul, [facility] [address] [id number] [address] [place] [address], [place] [address] Jun, [facility] [address] [id number] [address] [place] [address], [place] [address] Jun, [facility] [address] [id number] [address] [place] [address], [place] [address] May, [facility] [address] [id number] [address] [place] [address], [place] [address] May, [facility] [address] [id number] [address] [place] [address], [place] [address] May, [facility] [address] [id number] [address] [place] [address], [place] [address] May, [facility] [address] [id number] [address] [place] [address], [place] [address] May, [facility] [address] [id number] [address] [place] [address], [place] [address] May, [facility] [facility] [address] [id number] [address] [place] [address], [place] [address] May, [facility] [address] [id number] [address] [place] [address], [place] [address] May, [facility] [address] [id number] [address] [place] [address], [place] [address] May, [facility] [address] [id number] [address] [place] [address], [place] [address] Apr, [facility] [address] [id number] [address] [place] [address], [place] [address] Apr, [facility] [address] [id number] [address] [place] [address], [place] [address] Apr, [facility] [address] [id number] [address] [place] [address], [place] [address] Apr, [facility] [address] [id number] [address] [place] [address], [place] [address] Apr, [facility] [address] [id number] [address] [place] [address], [place] [address] Mar, [facility] [address] [id number] [address] [place] [address], [place] [address] Mar, [facility] [address] [id number] [address] [place] [address], [place] [address] Feb, [facility] [address] [id number] [address] [place] [address], [place] [address] Feb, [facility] [address] [id number] [address] [place] [address], [place] [address] Feb, [facility] [address] [id number] [address] [place] [address], [place] [address] Feb, [facility] [address] [id number] [address] [place] [address], [place] [address] Feb, [facility] [address] [id number] [address] [place] [address], [place] [address] Feb, [facility] [address] [id number] [address] [place] [address], [place] [address] Feb, [facility] [address] [id number] [address] [place], [place] [address] [address] Feb, [facility] [address] [id number] [address] [place] [address], [place] [address] Feb, [facility] [address] [id number] [address] [place] [address], [place] [address] Jan, [facility] [address] [id number] [address] [place] [address], [place] [address] Jan, [facility] [address] [id number] [address] [place] [address], [place] [address] Jan, [facility] [address] [id number] [address] [place] [address], [place] [address] Jan, [facility] [address] [id number] [address] [place] [address], [place] [address] Jan, [facility] [address] [id number] [address] [place] [address], [place] [address] Dec, [facility] [address] [id number] [address] [place] [address], [place] [address] Dec, [facility] [address] [id number] [address] [place] [address], [place] [address] Nov, [facility] [address] [id number] [address] [place] [address], [place] [address] Nov, [facility] [address] [id number] [address] [place] [address], [place] [address] Oct, [facility] [address] [id number] [address] [place] [address] Oct, [facility] [address] [id number] [address] [place] [address], [place] [address] Oct, [facility] [address] [id number] [address] [place] [address], [place] [address] Sep, [facility] [address] [id number] [address] [place] [address], [place] [address] Sep, [facility] [address] [id number] [address] [place] [address], [place] [address] 07 Sep, 2012 [facility] [address] [id number] [address] [place] [address], [place] [address] August, [facility] [address] [id number] [address] [place] [address], [place] [address] August, [facility] [address] [id number] [address] [place] [address], [place] [address] August, [facility] [address] [id number] [address] [place] [address], [place] [address] August, [facility] [address] [id number] [address] [place] [address], [place] [address] Jul, [facility] [address] [id number] [address] [place] [address], [place] [address] Jun, [facility] [address] [id number] [address] [place] [address], [place] [address] Jun, [facility] [address] [id number] [address] [place] [address], [place] [address] 05 Jun, 2012 [facility] [address] [id number] [address] [place] [address], [place] [address] May, [facility] [address] [id number] [address] [place] [address], [place] [address] May, [facility] [address] [id number] [address] [place] [address], [place] [address] May, [facility] [address] [id number] [address] [place] [address], [place] [address] May, [facility] [address] [id number] [address] [place] [address], [place] [address] Apr, [facility] [address] [id number] [address] [place] [address], [place] [address] Apr, [facility] [address] [id number] [address] [place] [address], [place] [address] Apr, [facility] [address] [id number] [address] [place] [address], [place] [address] Apr, [facility] [address] [id number] [address] [place] [address], [place] [address] Apr, [facility] [address] [id number] [address] [place] [address], [place] [address] Mar, [facility] [address] [id number] [address] [place] [address], [place] [address] Mar, [facility] [address] [id number] [address] [place] [address], [place] [address] Mar, [facility] [address] [id number] [address] [place] [address], [place] [address] Mar, [facility] [address] [id number] [address] [place] [address], [place] [address] Mar, [facility] [address] [id number] [address] [place] [address], [place] [address] Mar, [facility] [address] [id number] [address] [place] [address], [place] [address] Mar, [facility] [address] [id number] [address] [place] [address], [place] [address] Feb, [facility] [address] [id number] [address] [place] [address], [place] [address] Feb, [facility] [address] [id number] [address] [place] [address], [place] [address] Feb, [facility] [address] [id number] [address] [place] [address], [place] [address] Feb, [facility] [address] [id number] [address] [place] [address], [place] [address] Feb, [facility] [address] [id number] [address] [place] [address], [place] [address] Feb, [facility] [address] [id number] [address] [place] [address] Feb, [facility] [address] [id number] [address] [place] [address], [place] [address] Feb, [facility] [address] [id number] [address] [place] [address], [place] [address] Jan, [facility] [address] [id number] [address] [place] [address], [place] [address] Jan, [facility] [address] [id number] [address] [place] [address], [place] [address] Jan, [facility] [address] [id number] [address] [place] [address], [place] [address] Jan, [facility] [address] [id number] [address] [place] [address], [place] [address] 27 Dec, 2011 [facility] [address] [id number] [address] [place] [address], [place] [address] 25 Dec, 2011 [facility] [address] [id number] [address] [place] [address], [place] [address] 18 Dec, 2011 [facility] [address] [id number] [address] [place] [address], [place] [address] 13 Dec, 2011 [facility] [address] [id number] [address] [place] [address], [place] [address] 11 Dec, 2011 [facility] [address] [id number] [address] [place] [address], [place] [address] Oct, [facility] [address] [id number] [address] [place] [address] Oct, [facility] [address] [id number] [address] [place] [address], [place] [address] Sep, [facility] [address] [id number] [address] [place] [address], [place] [address] Sep, [facility] [address] [id number] [address] [place] [address], [place] [address] August, [facility] [address] [id number] [address] [place] [address], [place] [address] August, [facility] [address] [id number] [address] [place] [address], [place] [address] 04 Jul, 2011 [facility] [address] [id number] [address] [place] [address], [place] [address] 28 Jun, 2011 [facility] [address] [id number] [address] [place] [address], [place] [address] Jun, [facility] [address] [id number] [address] [place] [address], [place] [address] 23 Jun, 2011 [facility] [address] [id number] [address] [place] [address], [place] [address] Jun, [facility] [address] [id number] [address] [place] [address], [place] [address] Jun, [facility] [address] [id number] [address] [place] [address], [place] [address] 24 May, 2011 [facility] [address] [id number] [address] [place] [address], [place] [address] May, [facility] [address] [id number] [address] [place] [address], [place] [address] 20 May, 2011 [facility] [address] [id number] [address] [place] [address], [place] [address] 14 May, 2011 [facility] [address] [id number] [address] [place] [address], [place] [address] 13 May, 2011 [facility] [address] [id number] [address] [place] [address], [place] [address] 03 May, 2011 [facility] [address] [id number] [address] [place] [address], [place] [address] 02 May, 2011 [facility] [address] [id number] [address] [place] [address], [place] [address] 02 May, 2011 [facility] [address] [id number] [address] [place] [address] Apr, [facility] [address] [id number] [address] [place] [address] Mar, [facility] [address] [id number] [address] [place] [address] Mar, [facility] [address] [id number] [address] [place] [address] Mar, [facility] [address] [id number] [address] [place] [address] Mar, [facility] [address] [id number] [address] [place] [address] Mar, [facility] [address] [id number] [address] [place] [address] Jan, [facility] [address] [id number] [address] [place] [address] Jan, [facility] [address] [id number] [address] [place] [address] Jan, [facility] [address] [id number] [address] [place] [address] August, [facility] [address] [id number] [address] [place] [address] Mar, [facility] [address] [id number] [address] [place] [address] Feb, [facility] [address] [id number] [address] [place] [address] Jan, [facility] [address] [id number] [address] [place] [address] Jan, IMMUNIZATIONS No Known Immunizations SOCIAL HISTORY [...]
--- OUTSIDE RECORDS SUMMARY | 2019-08-20 16:01 | XMS REPORT ---
Author Author Talia HUDSON Organization [facility] Address [address] [place] [address] Care Team Providers Care Rural Route Mail Carrier Name Role Phone KATIE HUDSON Unavailable PROBLEMS Type Condition ICD9-CM Code MGU17-LV Code Onset Dates Condition S tatus SNOMED Code Problem CAD (coronary artery disease) I25.10 Active 32712243 Problem Osteoarthritis of knees, bilateral M17.0 Active 803204947 Problem Essential hypertension I10 Active 09928255 Problem Diabetes E11.9 Active 95055102 Problem Arthritis M19.90 Active 9659460 Problem Morbid obesity E66.01 Active 03017 6002 Problem Hyperlipemia E78.5 Active 2105513 4 ALLERGIES No Information ENCOUNTERS Encounter Location Date Diagnosis [facility] [address] [facility] [id number] [address] [place] [id number] Jul, [facility] [address] [facility] [id number] [address] [place] [address] Jun, [facility] [address] [facility] [id number] [address] [place] [phone] Jun, [facility] [address] [facility] [id number] [address] [place] [address] Jun, Diabetes E11.9 ; Skin infect ion L08.9 and Essential hypertension I10 [facility] [address] [facility] [id number] [address] [place] [id number] 05 May, 2019 [facility] [address] [facility] [id number] [address] [place] [address] May, [facility] [address] [facility] [id number] [address] [place] [id number] May, [facility] [address] [facility] [id number] [address] [place] [id number] Apr, [facility] [address] [facility] [id number] [place] [address] Mar, [facility] [address] [place] [id number] [place] [phone] Mar, [facility] [address] [place] [id number] [place] [address] Feb, [facility] [address] [address] Nov, [facility] [address] [address] Nov, Diabetes E11.9 and Syncope, unspecified syncope type R55 [place] [address] [address] Nov, Osteoarthritis of knees, natan ateral M17.0 [place] [address] [address] Oct, Diabetes E11.9 ; CAD (guardado ry artery disease) I25.10 ; Essential hypertension I10 and Hyperlipemia E78.5 [place] [address] [address] Sep, [facility] [address] [address] Jul, [facility] [address] [address] Apr, [facility] [address] [address] Mar, Pustular lesion L08.9 and En counter for immunization Z23 [facility] [address] [place] [id number] [address] [place] [address] Feb, [facility] [address] [address] Dec, [facility] [address] [facility] [id number] [address] [place] [phone] Dec, [facility] [address] [facility] [id number] [address] [place] [address] Dec, Diabetes E11.9 ; Essential h ypertension I10 ; Arthritis M19.90 ; Urinary frequency R35.0 ; Routine adult health maintenance Z00.00 and BMI 45.0- 49.9, adult Z68.42 [facility] [address] [facility] [id number] [address] [place] [id number] 18 Dec, 2017 [facility] [address] [facility] [id number] [address] [place] [phone] Dec, [facility] [address] [facility] [id number] [address] [place] [phone] Oct, [facility] [address] [place] [id number] [address] [place] [address] Sep, Diabetes E11.9 [facility] [address] [facility] [id number] [address] [place] [address] Sep, Diabetes E11.9 ; Hyperlipemi a E78.5 ; CAD (coronary artery disease) I25.10 ; Essential hypertension I10 and BMI 45.0-49.9, adult Z68.42 [facility] [address] [place] [id number] [address] [place] [address] Sep, [facility] [address] [place] [id number] [address] [place] [id number] August, [facility] [address] [facility] [id number] [address] [place] [address] Jan, Dysuria R30.0 [place] [address] [place] [id number] [address] [place] [address] Jan, Dysuria R30.0 [facility] [address] [place] [id number] [address] [place] [address] Jan, Osteoarthritis of knees, natan ateral M17.0 [place] [address] [place] [id number] [address] [place] [id number] 14 Nov, 2016 Dysuria R30.0 [place] [address] [place] [id number] [place] [address] Oct, Blood in urine R31.9 ; Dysur ia R30.0 ; Pharyngeal dysphagia R13.13 ; Acute cystitis with hematuria N30.01 ; CAD (coronary artery disease) I25.10 and Diabetes E11.9 [place] [address] [place] [id number] [address] [place] [address] Oct, [place] [address] [address] Sep, Arthritis M19.90 ; Blood in urine R31.9 ; Diabetes E11.9 ; Acute cystitis with hematuria N30.01 and Pharyngoesophageal dysphagia R13.14 [place] [address] [address] Sep, Osteoarthritis of knees, natan ateral M17.0 [place] [address] [address] Sep, Osteoarthritis of knees, natan ateral M17.0 [place] [address] [place] [id number] [address] [place] [address] August, Arthritis M19.90 [place] [address] [place] [id number] [address] [place] [id number] Jul, Arthritis M19.90 [place] [address] [place] [id number] [address] [place] [id number] Jun, Arthritis M19.90 [place] [address] [place] [id number] [place] [phone] Jun, [place] [address] [place] [id number] [address] [place] [address] Jun, [place] [address] [place] [id number] [address] [place] [address] May, Diabetes E11.9 ; Dysuria R30 .0 and Arthritis M19.90 [facility] [address] [id number] [address] [place] [address] Apr, [facility] [address] [id number] [address] [place] [id number] Apr, Arthritis M19.90 [facility] [address] [id number] [address] [place] [address] Mar, Arthritis M19.90 [facility] [address] [id number] [address] [place] [address] Feb, [facility] [address] [id number] [address] [place] [id number] Jan, [facility] [address] [id number] [address] [place] [address] Dec, Diabetes E11.9 and Arthritis M19.90 [facility] [address] [id number] [address] [place] [address] Dec, [facility] [address] [id number] [address] [place] [address] Nov, Arthritis M19.90 [facility] [address] [id number] [address] [place] [address] Nov, [facility] [address] [id number] [address] [place] [address] Oct, Arthritis M19.90 [facility] [address] [id number] [address] [place] [id number] Sep, Osteoarthritis of knees, natan ateral M17.0 [facility] [address] [id number] [address] [place] [id number] 09 Sep, 2015 Osteoarthritis of knees, natan ateral M17.0 [facility] [address] [id number] [address] [place] [id number] August, Arthritis M19.90 [facility] [address] [id number] [address] [place] [phone] August, [facility] [address] [facility] [id number] [address] [place] [address] Jul, Hyperlipemia E78.5 [facility] [address] [facility] [id number] [address] [place] [id number] Jul, Encounter for well woman exa m Z01.419 ; Morbid obesity E66.01 ; Encounter for screening for malignant neoplasm of cervix Z12.4 and Encounter for screening mammogram for breast cancer Z12.31 [facility] [address] [facility] [id number] [address] [place] [id number] Jul, Arthritis M19.90 ; Diabetes E11.9 ; Blood in urine R31.9 and UTI (urinary tract infection) N39.0 [facility] [address] [facility] [id number] [address] [place] [id number] Jul, [facility] [address] [facility] [id number] [address] [place] [address] Jun, Arthritis M19.90 [facility] [address] [facility] [id number] [address] [place] [id number] May, Arthritis M19.90 [facility] [address] [facility] [id number] [address] [place] [phone] May, [facility] [address] [facility] [id number] [address] [place] [id number] Apr, [facility] [address] [facility] [id number] [address] [place] [address] Apr, Arthritis M19.90 ; Diabetes E11.9 and Morbid obesity E66.01 [facility] [address] [facility] [id number] [address] [place] [id number] Apr, [facility] [address] [facility] [id number] [address] [place] [id number] 18 Apr, 2015 Dyspareunia N94.1 [facility] [address] [id number] [address] [place] [id number] 15 Apr, 2015 [facility] [address] [id number] [address] [place] [id number] 15 Apr, 2015 [facility] [address] [id number] [address] [place] [id number] 14 Apr, 2015 Osteoarthritis of knees, natan ateral M17.0 [facility] [address] [id number] [address] [place] [id number] 14 Apr, 2015 Diabetes E11.9 and CAD (elysia nary artery disease) I25.10 [facility] [address] [id number] [address] [place] [id number] 08 Mar, 2015 [facility] [address] [id number] [address] [place] [phone] Feb, [facility] [address] [id number] [address] [place] [id number] 30 Jan, 2015 [facility] [address] [id number] [address] [place] [phone] Jan, [facility] [address] [id number] [address] [place] [phone] Jan, [facility] [address] [id number] [address] [place] [id number] Jan, Osteoarthritis of knees, natan ateral M17.0 [facility] [address] [id number] [address] [place] [id number] 30 Dec, 2014 [facility] [address] [id number] [address] [place] [id number] 17 Dec, 2014 [facility] [address] [id number] [address] [place] [id number] 10 Dec, 2014 [facility] [address] [id number] [address] [place] [id number] Dec, Diabetes mellitus 250.00 and UTI (urinary tract infection) 599.0 [facility] [address] [id number] [address] [place] [address], [place] [address] Dec, [facility] [address] [id number] [address] [place] [address], [place] [address] Nov, [facility] [address] [id number] [address] [place] [address], [place] [address] Oct, [facility] [address] [id number] [address] [place] [address], [place] [address] Oct, [facility] [address] [id number] [address] [place] [address], [place] [address] Oct, [facility] [address] [id number] [address] [place] [address], [place] [address] Oct, [facility] [address] [id number] [address] [place] [address], [place] [address] Oct, [facility] [address] [id number] [address] [place] [address], [place] [address] Sep, [facility] [address] [id number] [address] [place] [address], [place] [address] August, [facility] [address] [id number] [address] [place] [address], [place] [address] August, [facility] [address] [id number] [address] [place] [address], [place] [address] August, [facility] [address] [id number] [address] [place] [address], [place] [address] Jul, [facility] [address] [id number] [address] [place] [id number] Jul, [facility] [address] [id number] [address] [place] [phone] Jul, [facility] [address] [id number] [address] [place] [id number] Jun, [facility] [address] [id number] [facility] [place] [address] Jun, [facility] [address] [id number] [address] [place] [address], [place] [address] Jun, [facility] [address] [id number] [facility] [place] [address] Jun, [facility] [address] [id number] [address] [place] [address], [place] [address] Jun, [facility] [address] [id number] [address] [place] [address], [place] [address] Jun, [facility] [address] [id number] [address] [place] [address], [place] [address] Jun, [facility] [address] [id number] [address] [place] [address], [place] [address] Jun, [facility] [address] [id number] [address] [place] [address], [place] [address] May, [facility] [address] [id number] [address] [place] [address], [place] [address] May, [facility] [address] [id number] [address] [place] [address], [place] [address] May, [facility] [address] [id number] [address] [place] [address], [place] [address] May, [facility] [address] [id number] [address] [place] [address], [place] [address] May, 2014 [facility] [address] [id number] [address] [place] [address], [place] [address] May, [facility] [address] [id number] [address] [place] [address], [place] [address] May, 2014 [facility] [address] [id number] [address] [place] [address], [place] [address] May, 2014 [facility] [address] [id number] [address] [place] [address], [place] [address] May, 2014 [facility] [address] [id number] [address] [place] [address], [place] [address] May, 2014 [facility] [address] [id number] [address] [place] [address], [place] [address] May, 2014 [facility] [address] [id number] [address] [place] [address], [place] [address] May, 2014 [facility] [address] [id number] [address] [place] [address], [place] [address] Apr, [facility] [address] [id number] [address] [place] [address], [place] [address] Apr, [facility] [address] [id number] [address] [place] [address], [place] [address] Mar, [facility] [address] [id number] [address] [place] [address], [place] [address] Mar, [facility] [address] [id number] [address] [place] [address], [place] [address] Mar, [facility] [address] [id number] [address] [place] [address], [place] [address] Mar, [facility] [address] [id number] [address] [place] [address], [place] [address] Mar, [facility] [address] [id number] [address] [place] [address], [place] [address] Mar, [facility] [address] [id number] [address] [place] [address], [place] [address] Feb, [facility] [address] [id number] [address] [place] [address], [place] [address] Feb, [facility] [address] [id number] [address] [place] [address], [place] [address] Feb, [facility] [address] [id number] [address] [place] [address], [place] [address] Feb, [facility] [address] [id number] [address] [place] [address], [place] [address] Feb, [facility] [address] [id number] [address] [place] [address], [place] [address] Feb, [facility] [address] [id number] [address] [place] [address], [place] [address] Feb, [facility] [address] [id number] [address] [place] [address], [place] [address] Feb, [facility] [address] [id number] [address] [place] [address], [place] [address] Feb, [facility] [address] [id number] [address] [place] [address], [place] [address] Jan, [facility] [address] [id number] [address] [place] [address], [place] [address] Jan, [facility] [address] [id number] [address] [place] [address] Jan, [facility] [address] [id number] [address] [place] [address], [place] [address] Jan, [facility] [address] [id number] [address] [place] [address] Jan, [facility] [address] [id number] [address] [place] [address] Jan, [facility] [address] [id number] [address] [place] [address] Jan, [facility] [address] [id number] [address] [place] [address], [place] [address] Jan, [facility] [address] [id number] [address] [place] [id number] Jan, [facility] [address] [id number] [address] [place] [address] Jan, [facility] [address] [id number] [address] [place] [phone] Dec, [facility] [address] [id number] [address] [place] [address], [place] [address] Dec, [facility] [address] [id number] [address] [place] [address], [place] [address] Dec, [facility] [address] [id number] [address] [place] [address], [place] [address] Dec, [facility] [address] [id number] [address] [place] [address], [place] [address] Nov, [facility] [address] [id number] [address] [place] [address], [place] [address] Nov, [facility] [address] [id number] [address] [place] [address], [place] [address] Nov, [facility] [address] [id number] [address] [place] [address], [place] [address] Nov, [facility] [address] [id number] [address] [place] [address], [place] [address] Nov, [facility] [address] [id number] [address] [place] [address], [place] [address] Nov, [facility] [address] [id number] [address] [place] [address], [place] [address] Nov, [facility] [address] [id number] [address] [place] [address], [place] [address] Nov, [facility] [address] [id number] [address] [place] [address], [place] [address] Nov, [facility] [address] [id number] [address] [place] [address], [place] [address] Oct, [facility] [address] [id number] [address] [place] [address], [place] [address] Oct, [facility] [address] [id number] [address] [place] [address], [place] [address] Sep, [facility] [address] [id number] [facility] [place] [address] Sep, [facility] [address] [id number] [facility] [place] [address] Sep, [facility] [address] [id number] [facility] [place] [address] Sep, [facility] [address] [id number] [facility] [place] [address] Sep, [facility] [address] [id number] [facility] [place] [address] Sep, [facility] [address] [id number] [facility] [place] [address] Sep, [facility] [address] [id number] [address] [place] [address], [place] [address] Sep, [facility] [address] [id number] [address] [place] [address], [place] [address] Sep, [facility] [address] [id number] [address] [place] [address], [place] [address] Sep, [facility] [address] [id number] [address] [place] [address], [place] [address] Sep, [facility] [address] [id number] [address] [place] [address], [place] [address] Sep, [facility] [address] [id number] [address] [place] [address], [place] [address] Sep, [facility] [address] [id number] [address] [place] [address], [place] [address] Sep, [facility] [address] [id number] [address] [place] [address], [place] [address] August, [facility] [address] [id number] [address] [place] [address], [place] [address] August, [facility] [address] [id number] [address] [place] [address], [place] [address] August, [facility] [address] [id number] [address] [place] [address], [place] [address] August, [facility] [address] [id number] [address] [place] [address], [place] [address] Jul, [facility] [address] [id number] [address] [place] [address], [place] [address] Jul, [facility] [address] [id number] [address] [place] [address], [place] [address] Jul, [facility] [address] [id number] [address] [place] [address], [place] [address] Jul, [facility] [address] [id number] [address] [place] [address], [place] [address] Jun, [facility] [address] [id number] [address] [place] [address], [place] [address] Jun, [facility] [address] [id number] [address] [place] [address], [place] [address] May, [facility] [address] [id number] [address] [place] [address], [place] [address] May, [facility] [address] [id number] [address] [place] [address], [place] [address] May, [facility] [address] [id number] [address] [place] [address], [place] [address] May, [facility] [address] [id number] [address] [place] [address], [place] [address] May, [facility] [facility] [address] [id number] [address] [place] [address], [place] [address] May, [facility] [address] [id number] [address] [place] [address], [place] [address] May, [facility] [address] [id number] [address] [place] [address], [place] [address] May, [facility] [address] [id number] [address] [place] [address], [place] [address] May, [facility] [address] [id number] [address] [place] [address], [place] [address] Apr, [facility] [address] [id number] [address] [place] [address], [place] [address] Apr, [facility] [address] [id number] [address] [place] [address], [place] [address] Apr, [facility] [address] [id number] [address] [place] [address], [place] [address] Apr, [facility] [address] [id number] [address] [place] [address], [place] [address] Apr, [facility] [address] [id number] [address] [place] [address], [place] [address] Mar, [facility] [address] [id number] [address] [place] [address], [place] [address] Mar, [facility] [address] [id number] [address] [place] [address], [place] [address] Feb, [facility] [address] [id number] [address] [place] [address], [place] [address] Feb, [facility] [address] [id number] [address] [place] [address], [place] [address] Feb, [facility] [address] [id number] [address] [place] [address], [place] [address] Feb, [facility] [address] [id number] [address] [place] [address], [place] [address] Feb, [facility] [address] [id number] [address] [place] [address], [place] [address] Feb, [facility] [address] [id number] [address] [place] [address], [place] [address] Feb, [facility] [address] [id number] [address] [place] [address] [address] Feb, [facility] [address] [id number] [address] [place] [address], [place] [address] Feb, [facility] [address] [id number] [address] [place] [address], [place] [address] Jan, [facility] [address] [id number] [address] [place] [address], [place] [address] Jan, [facility] [address] [id number] [address] [place] [address], [place] [address] Jan, [facility] [address] [id number] [address] [place] [address], [place] [address] Jan, [facility] [address] [id number] [address] [place] [address], [place] [address] Jan, [facility] [address] [id number] [address] [place] [address], [place] [address] Dec, [facility] [address] [id number] [address] [place] [address], [place] [address] Dec, [facility] [address] [id number] [address] [place] [address], [place] [address] Nov, [facility] [address] [id number] [address] [place] [address], [place] [address] Nov, [facility] [address] [id number] [address] [place] [address], [place] [address] Oct, [facility] [address] [id number] [address] [place] [address] Oct, [facility] [address] [id number] [address] [place] [address], [place] [address] Oct, [facility] [address] [id number] [address] [place] [address], [place] [address] Sep, [facility] [address] [id number] [address] [place] [address], [place] [address] Sep, [facility] [address] [id number] [address] [place] [address], [place] [address] 07 Sep, 2012 [facility] [address] [id number] [address] [place] [address], [place] [address] August, [facility] [address] [id number] [address] [place] [address], [place] [address] August, [facility] [address] [id number] [address] [place] [address], [place] [address] August, [facility] [address] [id number] [address] [place] [address], [place] [address] August, [facility] [address] [id number] [address] [place] [address], [place] [address] Jul, [facility] [address] [id number] [address] [place] [address], [place] [address] Jun, [facility] [address] [id number] [address] [place] [address], [place] [address] Jun, [facility] [address] [id number] [address] [place] [address], [place] [address] 05 Jun, 2012 [facility] [address] [id number] [address] [place] [address], [place] [address] May, [facility] [address] [id number] [address] [place] [address], [place] [address] May, [facility] [address] [id number] [address] [place] [address], [place] [address] May, [facility] [address] [id number] [address] [place] [address], [place] [address] May, [facility] [address] [id number] [address] [place] [address], [place] [address] Apr, [facility] [address] [id number] [address] [place] [address], [place] [address] Apr, [facility] [address] [id number] [address] [place] [address], [place] [address] Apr, [facility] [address] [id number] [address] [place] [address], [place] [address] Apr, [facility] [address] [id number] [address] [place] [address], [place] [address] Apr, [facility] [address] [id number] [address] [place] [address], [place] [address] Mar, [facility] [address] [id number] [address] [place] [address], [place] [address] Mar, [facility] [address] [id number] [address] [place] [address], [place] [address] Mar, [facility] [address] [id number] [address] [place] [address], [place] [address] Mar, [facility] [address] [id number] [address] [place] [address], [place] [address] Mar, [facility] [address] [id number] [address] [place] [address], [place] [address] Mar, [facility] [address] [id number] [address] [place] [address], [place] [address] Mar, [facility] [address] [id number] [address] [place] [address], [place] [address] Feb, [facility] [address] [id number] [address] [place] [address], [place] [address] Feb, [facility] [address] [id number] [address] [place] [address], [place] [address] Feb, [facility] [address] [id number] [address] [place] [address], [place] [address] Feb, [facility] [address] [id number] [address] [place] [address], [place] [address] Feb, [facility] [address] [id number] [address] [place] [address], [place] [address] Feb, [facility] [address] [id number] [address] [place] [address] Feb, [facility] [address] [id number] [address] [place] [address], [place] [address] Feb, [facility] [address] [id number] [address] [place] [address], [place] [address] Jan, [facility] [address] [id number] [address] [place] [address], [place] [address] Jan, [facility] [address] [id number] [address] [place] [address], [place] [address] Jan, [facility] [address] [id number] [address] [place] [address], [place] [address] Jan, [facility] [address] [id number] [address] [place] [address], [place] [address] 27 Dec, 2011 [facility] [address] [id number] [address] [place] [address], [place] [address] 25 Dec, 2011 [facility] [address] [id number] [address] [place] [address], [place] [address] 18 Dec, 2011 [facility] [address] [id number] [address] [place] [address], [place] [address] 13 Dec, 2011 [facility] [address] [id number] [address] [place] [address], [place] [address] 11 Dec, 2011 [facility] [address] [id number] [address] [place] [address], [place] [address] Oct, [facility] [address] [id number] [address] [place] [address] Oct, [facility] [address] [id number] [address] [place] [address], [place] [address] Sep, [facility] [address] [id number] [address] [place] [address], [place] [address] Sep, [facility] [address] [id number] [address] [place] [address], [place] [address] August, [facility] [address] [id number] [address] [place] [address], [place] [address] August, [facility] [address] [id number] [address] [place] [address], [place] [address] 04 Jul, 2011 [facility] [address] [id number] [address] [place] [address], [place] [address] 28 Jun, 2011 [facility] [address] [id number] [address] [place] [address], [place] [address] Jun, [facility] [address] [id number] [address] [place] [address], [place] [address] 23 Jun, 2011 [facility] [address] [id number] [address] [place] [address], [place] [address] Jun, [facility] [address] [id number] [address] [place] [address], [place] [address] Jun, [facility] [address] [id number] [address] [place] [address], [place] [address] 24 May, 2011 [facility] [address] [id number] [address] [place] [address], [place] [address] May, [facility] [address] [id number] [address] [place] [address], [place] [address] 20 May, 2011 [facility] [address] [id number] [address] [place] [address], [place] [address] 14 May, 2011 [facility] [address] [id number] [address] [place] [address], [place] [address] 13 May, 2011 [facility] [address] [id number] [address] [place] [address], [place] [address] 03 May, 2011 [facility] [address] [id number] [address] [place] [address], [place] [address] 02 May, 2011 [facility] [address] [id number] [address] [place] [address], [place] [address] 02 May, 2011 [facility] [address] [id number] [address] [place] [address] Apr, [facility] [address] [id number] [address] [place] [address] Mar, [facility] [address] [id number] [address] [place] [address] Mar, [facility] [address] [id number] [address] [place] [address] Mar, [facility] [address] [id number] [address] [place] [address] Mar, [facility] [address] [id number] [address] [place] [address] Mar, [facility] [address] [id number] [address] [place] [address] Jan, [facility] [address] [id number] [address] [place] [address] Jan, [facility] [address] [id number] [address] [place] [address] Jan, [facility] [address] [id number] [address] [place] [address] August, [facility] [address] [id number] [address] [place] [address] Mar, [facility] [address] [id number] [address] [place] [address] Feb, [facility] [address] [id number] [address] [place] [address] Jan, [facility] [address] [id number] [address] [place] [address] Jan, IMMUNIZATIONS No Known Immunizations SOCIAL HISTORY [...]
--- OUTSIDE RECORDS SUMMARY | 2019-08-20 16:01 | XMS REPORT ---
Author Author Talia HUDSON Organization [facility] Address [address] [place] [address] Care Team Providers Care Reconciliation Analyst Name Role Phone KATIE HUDSON Unavailable PROBLEMS Type Condition ICD9-CM Code UPM59-CW Code Onset Dates Condition S tatus SNOMED Code Problem CAD (coronary artery disease) I25.10 Active 38079219 Problem Osteoarthritis of knees, bilateral M17.0 Active 686155306 Problem Essential hypertension I10 Active 88924049 Problem Diabetes E11.9 Active 36080661 Problem Arthritis M19.90 Active 4520519 Problem Morbid obesity E66.01 Active 69441 6002 Problem Hyperlipemia E78.5 Active 4566748 4 ALLERGIES No Information ENCOUNTERS Encounter Location Date Diagnosis [facility] [address] [facility] [id number] [address] [place] [id number] Jul, [facility] [address] [facility] [id number] [address] [place] [phone] Jun, [facility] [address] [facility] [id number] [address] [place] [phone] Jun, [facility] [address] [facility] [id number] [address] [place] [phone] Jun, Diabetes E11.9 ; Skin infect ion L08.9 and Essential hypertension I10 [facility] [address] [facility] [id number] [address] [place] [id number] 05 May, 2019 [facility] [address] [facility] [id number] [address] [place] [phone] May, [facility] [address] [facility] [id number] [address] [place] [phone] May, [facility] [address] [facility] [id number] [address] [place] [phone] Apr, [facility] [address] [facility] [id number] [place] [phone] Mar, [facility] [address] [place] [id number] [place] [phone] Mar, [facility] [address] [place] [id number] [place] [phone] Feb, [facility] [address] [id number] Nov, [facility] [address] [address] Nov, Diabetes E11.9 and Syncope, unspecified syncope type R55 [place] [address] [address] Nov, Osteoarthritis of knees, natan ateral M17.0 [place] [address] [id number] Oct, Diabetes E11.9 ; CAD (guardado ry artery disease) I25.10 ; Essential hypertension I10 and Hyperlipemia E78.5 [place] [address] [phone] Sep, [facility] [address] [id number] Jul, [facility] [address] [id number] Apr, [facility] [address] [address] Mar, Pustular lesion L08.9 and En counter for immunization Z23 [facility] [address] [place] [id number] [address] [place] [phone] Feb, [facility] [address] [id number] Dec, [facility] [address] [facility] [id number] [address] [place] [phone] Dec, [facility] [address] [facility] [id number] [address] [place] [address] Dec, Diabetes E11.9 ; Essential h ypertension I10 ; Arthritis M19.90 ; Urinary frequency R35.0 ; Routine adult health maintenance Z00.00 and BMI 45.0- 49.9, adult Z68.42 [facility] [address] [facility] [id number] [address] [place] [phone] 18 Dec, 2017 [facility] [address] [facility] [id number] [address] [place] [phone] Dec, [facility] [address] [facility] [id number] [address] [place] [id number] Oct, [facility] [address] [place] [id number] [address] [place] [address] Sep, Diabetes E11.9 [facility] [address] [facility] [id number] [address] [place] [address] Sep, Diabetes E11.9 ; Hyperlipemi a E78.5 ; CAD (coronary artery disease) I25.10 ; Essential hypertension I10 and BMI 45.0-49.9, adult Z68.42 [facility] [address] [place] [id number] [address] [place] [id number] Sep, [facility] [address] [place] [id number] [address] [place] [phone] August, [facility] [address] [facility] [id number] [address] [place] [id number] Jan, Dysuria R30.0 [place] [address] [place] [id number] [address] [place] [address] Jan, Dysuria R30.0 [facility] [address] [place] [id number] [address] [place] [address] Jan, Osteoarthritis of knees, natan ateral M17.0 [place] [id number] [place] [id number] [address] [place] [id number] 14 Nov, 2016 Dysuria R30.0 [place] [address] [place] [id number] [place] [address] Oct, Blood in urine R31.9 ; Dysur ia R30.0 ; Pharyngeal dysphagia R13.13 ; Acute cystitis with hematuria N30.01 ; CAD (coronary artery disease) I25.10 and Diabetes E11.9 [place] [address] [place] [id number] [address] [place] [address] Oct, [place] [address] [address] Sep, Arthritis M19.90 ; Blood in urine R31.9 ; Diabetes E11.9 ; Acute cystitis with hematuria N30.01 and Pharyngoesophageal dysphagia R13.14 [place] [address] [address] Sep, Osteoarthritis of knees, natan ateral M17.0 [place] [address] [address] Sep, Osteoarthritis of knees, natan ateral M17.0 [place] [address] [place] [id number] [address] [place] [address] August, Arthritis M19.90 [place] [address] [place] [id number] [address] [place] [address] Jul, Arthritis M19.90 [place] [address] [place] [id number] [address] [place] [address] Jun, Arthritis M19.90 [place] [address] [place] [id number] [place] [phone] Jun, [place] [address] [place] [id number] [address] [place] [address] Jun, [place] [address] [place] [id number] [address] [place] [address] May, Diabetes E11.9 ; Dysuria R30 .0 and Arthritis M19.90 [facility] [address] [id number] [address] [place] [phone] Apr, [facility] [address] [id number] [address] [place] [id number] Apr, Arthritis M19.90 [facility] [address] [id number] [address] [place] [phone] Mar, Arthritis M19.90 [facility] [address] [id number] [address] [place] [phone] Feb, [facility] [address] [id number] [address] [place] [phone] Jan, [facility] [address] [id number] [address] [place] [phone] Dec, Diabetes E11.9 and Arthritis M19.90 [facility] [address] [id number] [address] [place] [phone] Dec, [facility] [address] [id number] [address] [place] [address] Nov, Arthritis M19.90 [facility] [address] [id number] [address] [place] [id number] Nov, [facility] [address] [id number] [address] [place] [address] Oct, Arthritis M19.90 [facility] [address] [id number] [address] [place] [id number] Sep, Osteoarthritis of knees, natan ateral M17.0 [facility] [address] [id number] [address] [place] [id number] 09 Sep, 2015 Osteoarthritis of knees, natan ateral M17.0 [facility] [address] [id number] [address] [place] [address] August, Arthritis M19.90 [facility] [address] [id number] [address] [place] [address] August, [facility] [address] [facility] [id number] [address] [place] [address] Jul, Hyperlipemia E78.5 [facility] [address] [facility] [id number] [address] [place] [address] Jul, Encounter for well woman exa m Z01.419 ; Morbid obesity E66.01 ; Encounter for screening for malignant neoplasm of cervix Z12.4 and Encounter for screening mammogram for breast cancer Z12.31 [facility] [address] [facility] [id number] [address] [place] [address] Jul, Arthritis M19.90 ; Diabetes E11.9 ; Blood in urine R31.9 and UTI (urinary tract infection) N39.0 [facility] [address] [facility] [id number] [address] [place] [id number] Jul, [facility] [address] [facility] [id number] [address] [place] [address] Jun, Arthritis M19.90 [facility] [address] [facility] [id number] [address] [place] [address] May, Arthritis M19.90 [facility] [address] [facility] [id number] [address] [place] [phone] May, [facility] [address] [facility] [id number] [address] [place] [address] Apr, [facility] [address] [facility] [id number] [address] [place] [address] Apr, Arthritis M19.90 ; Diabetes E11.9 and Morbid obesity E66.01 [facility] [address] [facility] [id number] [address] [place] [address] Apr, [facility] [address] [facility] [id number] [address] [place] [id number] 18 Apr, 2015 Dyspareunia N94.1 [facility] [address] [id number] [address] [place] [id number] 15 Apr, 2015 [facility] [address] [id number] [address] [place] [id number] 15 Apr, 2015 [facility] [address] [id number] [address] [place] [id number] 14 Apr, 2015 Osteoarthritis of knees, natan ateral M17.0 [facility] [address] [id number] [address] [place] [phone] 14 Apr, 2015 Diabetes E11.9 and CAD (elysia nary artery disease) I25.10 [facility] [address] [id number] [address] [place] [id number] 08 Mar, 2015 [facility] [address] [id number] [address] [place] [id number] Feb, [facility] [address] [id number] [address] [place] [phone] 30 Jan, 2015 [facility] [address] [id number] [address] [place] [phone] Jan, [facility] [address] [id number] [address] [place] [phone] Jan, [facility] [address] [id number] [address] [place] [phone] Jan, Osteoarthritis of knees, natan ateral M17.0 [facility] [address] [id number] [address] [place] [id number] 30 Dec, 2014 [facility] [address] [id number] [address] [place] [id number] 17 Dec, 2014 [facility] [address] [id number] [address] [place] [id number] 10 Dec, 2014 [facility] [address] [id number] [address] [place] [address] Dec, Diabetes mellitus 250.00 and UTI (urinary tract infection) 599.0 [facility] [address] [id number] [address] [place] [address], [place] [address] Dec, [facility] [address] [id number] [address] [place] [place] [address], [place] [address] Nov, [facility] [address] [id number] [address] [place] [address], [place] [address] Oct, [facility] [address] [id number] [address] [place] [place] [address], [place] [address] Oct, [facility] [address] [id number] [address] [place] [address], [place] [address] Oct, [facility] [address] [id number] [address] [place] [address], [place] [address] Oct, [facility] [address] [id number] [address] [place] [address], [place] [address] Oct, [facility] [address] [id number] [address] [place] [address], [place] [address] Sep, [facility] [address] [id number] [address] [place] [address], [place] [address] August, [facility] [address] [id number] [address] [place] [address], [place] [address] August, [facility] [address] [id number] [address] [place] [address], [place] [address] August, [facility] [address] [id number] [address] [place] [address], [place] [address] Jul, [facility] [address] [id number] [address] [place] [id number] Jul, [facility] [address] [id number] [address] [place] [id number] Jul, [facility] [address] [id number] [address] [place] [id number] Jun, [facility] [address] [id number] [facility] [place] [address] Jun, [facility] [address] [id number] [address] [place] [address], [place] [address] Jun, [facility] [address] [id number] [facility] [place] [address] Jun, [facility] [address] [id number] [address] [place] [address], [place] [address] Jun, [facility] [address] [id number] [address] [place] [address], [place] [address] Jun, [facility] [address] [id number] [address] [place] [address], [place] [address] Jun, [facility] [address] [id number] [address] [place] [address], [place] [address] Jun, [facility] [address] [id number] [address] [place] [address], [place] [address] May, [facility] [address] [id number] [address] [place] [address], [place] [address] May, [facility] [address] [id number] [address] [place] [address], [place] [address] May, [facility] [address] [id number] [address] [place] [address], [place] [address] May, [facility] [address] [id number] [address] [place] [address], [place] [address] May, 2014 [facility] [address] [id number] [address] [place] [address], [place] [address] May, [facility] [address] [id number] [address] [place] [address], [place] [address] May, 2014 [facility] [address] [id number] [address] [place] [address], [place] [address] May, 2014 [facility] [address] [id number] [address] [place] [address], [place] [address] May, 2014 [facility] [address] [id number] [address] [place] [address], [place] [address] May, 2014 [facility] [address] [id number] [address] [place] [address], [place] [address] May, 2014 [facility] [address] [id number] [address] [place] [address], [place] [address] May, 2014 [facility] [address] [id number] [address] [place] [address], [place] [address] Apr, [facility] [address] [id number] [address] [place] [address], [place] [address] Apr, [facility] [address] [id number] [address] [place] [address], [place] [address] Mar, [facility] [address] [id number] [address] [place] [address], [place] [address] Mar, [facility] [address] [id number] [address] [place] [address], [place] [address] Mar, [facility] [address] [id number] [address] [place] [address], [place] [address] Mar, [facility] [address] [id number] [address] [place] [address], [place] [address] Mar, [facility] [address] [id number] [address] [place] [address], [place] [address] Mar, [facility] [address] [id number] [address] [place] [address], [place] [address] Feb, [facility] [address] [id number] [address] [place] [address], [place] [address] Feb, [facility] [address] [id number] [address] [place] [address], [place] [address] Feb, [facility] [address] [id number] [address] [place] [address], [place] [address] Feb, [facility] [address] [id number] [address] [place] [address], [place] [address] Feb, [facility] [address] [id number] [address] [place] [address], [place] [address] Feb, [facility] [address] [id number] [address] [place] [address], [place] [address] Feb, [facility] [address] [id number] [address] [place] [address], [place] [address] Feb, [facility] [address] [id number] [address] [place] [address], [place] [address] Feb, [facility] [address] [id number] [address] [place] [address], [place] [address] Jan, [facility] [address] [id number] [address] [place] [address], [place] [address] Jan, [facility] [address] [id number] [address] [place] [id number] Jan, [facility] [address] [id number] [address] [place] [address], [place] [address] Jan, [facility] [address] [id number] [address] [place] [address] Jan, [facility] [address] [id number] [address] [place] [address] Jan, [facility] [address] [id number] [address] [place] [address] Jan, [facility] [address] [id number] [address] [place] [address], [place] [address] Jan, [facility] [address] [id number] [address] [place] [id number] Jan, [facility] [address] [id number] [address] [place] [address] Jan, [facility] [address] [id number] [address] [place] [address] Dec, [facility] [address] [id number] [address] [place] [address], [place] [address] Dec, [facility] [address] [id number] [address] [place] [address], [place] [address] Dec, [facility] [address] [id number] [address] [place] [address], [place] [address] Dec, [facility] [address] [id number] [address] [place] [address], [place] [address] Nov, [facility] [address] [id number] [address] [place] [address], [place] [address] Nov, [facility] [address] [id number] [address] [place] [address], [place] [address] Nov, [facility] [address] [id number] [address] [place] [address], [place] [address] Nov, [facility] [address] [id number] [address] [place] [address], [place] [address] Nov, [facility] [address] [id number] [address] [place] [address], [place] [address] Nov, [facility] [address] [id number] [address] [place] [address], [place] [address] Nov, [facility] [address] [id number] [address] [place] [address], [place] [address] Nov, [facility] [address] [id number] [address] [place] [address], [place] [address] Nov, [facility] [address] [id number] [address] [place] [address], [place] [address] Oct, [facility] [address] [id number] [address] [place] [address], [place] [address] Oct, [facility] [address] [id number] [address] [place] [address], [place] [address] Sep, [facility] [address] [id number] [facility] [place] [address] Sep, [facility] [address] [id number] [facility] [place] [address] Sep, [facility] [address] [id number] [facility] [place] [address] Sep, [facility] [address] [id number] [facility] [place] [address] Sep, [facility] [address] [id number] [facility] [place] [address] Sep, [facility] [address] [id number] [facility] [place] [address] Sep, [facility] [address] [id number] [address] [place] [address], [place] [address] Sep, [facility] [address] [id number] [address] [place] [address], [place] [address] Sep, [facility] [address] [id number] [address] [place] [address], [place] [address] Sep, [facility] [address] [id number] [address] [place] [address], [place] [address] Sep, [facility] [address] [id number] [address] [place] [address], [place] [address] Sep, [facility] [address] [id number] [address] [place] [address], [place] [address] Sep, [facility] [address] [id number] [address] [place] [address], [place] [address] Sep, [facility] [address] [id number] [address] [place] [address], [place] [address] August, [facility] [address] [id number] [address] [place] [address], [place] [address] August, [facility] [address] [id number] [address] [place] [address], [place] [address] August, [facility] [address] [id number] [address] [place] [address], [place] [address] August, [facility] [address] [id number] [address] [place] [address], [place] [address] Jul, [facility] [address] [id number] [address] [place] [address], [place] [address] Jul, [facility] [address] [id number] [address] [place] [address], [place] [address] Jul, [facility] [address] [id number] [address] [place] [address], [place] [address] Jul, [facility] [address] [id number] [address] [place] [address], [place] [address] Jun, [facility] [address] [id number] [address] [place] [address], [place] [address] Jun, [facility] [address] [id number] [address] [place] [address], [place] [address] May, [facility] [address] [id number] [address] [place] [address], [place] [address] May, [facility] [address] [id number] [address] [place] [address], [place] [address] May, [facility] [address] [id number] [address] [place] [address], [place] [address] May, [facility] [address] [id number] [address] [place] [address], [place] [address] May, [facility] [address] [id number] [address] [place] [address], [place] [address] May, [facility] [address] [id number] [address] [place] [address], [place] [id number] May, [facility] [address] [id number] [address] [place] [address], [place] [address] May, [facility] [address] [id number] [address] [place] [address], [place] [address] May, [facility] [address] [id number] [address] [place] [address], [place] [address] Apr, [facility] [address] [id number] [address] [place] [address], [place] [address] Apr, [facility] [address] [id number] [address] [place] [address], [place] [address] Apr, [facility] [address] [id number] [address] [place] [address], [place] [address] Apr, [facility] [address] [id number] [address] [place] [address], [place] [address] Apr, [facility] [address] [id number] [address] [place] [address], [place] [address] Mar, [facility] [address] [id number] [address] [place] [address], [place] [address] Mar, [facility] [address] [id number] [address] [place] [address], [place] [address] Feb, [facility] [address] [id number] [address] [place] [address], [place] [address] Feb, [facility] [address] [id number] [address] [place] [address], [place] [address] Feb, [facility] [address] [id number] [address] [place] [address], [place] [address] Feb, [facility] [address] [id number] [address] [place] [address], [place] [address] Feb, [facility] [address] [id number] [address] [place] [address], [place] [address] Feb, [facility] [address] [id number] [address] [place] [address], [place] [address] Feb, [facility] [address] [id number] [address] [place] [address] [address] Feb, [facility] [address] [id number] [address] [place] [address], [place] [address] Feb, [facility] [address] [id number] [address] [place] [address], [place] [address] Jan, [facility] [address] [id number] [address] [place] [address], [place] [address] Jan, [facility] [address] [id number] [address] [place] [address], [place] [address] Jan, [facility] [address] [id number] [address] [place] [address], [place] [address] Jan, [facility] [address] [id number] [address] [place] [address], [place] [address] Jan, [facility] [address] [id number] [address] [place] [address], [place] [address] Dec, [facility] [address] [id number] [address] [place] [address], [place] [address] Dec, [facility] [address] [id number] [address] [place] [address], [place] [address] Nov, [facility] [address] [id number] [address] [place] [address], [place] [address] Nov, [facility] [address] [id number] [address] [place] [address], [place] [address] Oct, [facility] [address] [id number] [address] [place] [id number] Oct, [facility] [address] [id number] [address] [place] [address], [place] [address] Oct, [facility] [address] [id number] [address] [place] [address], [place] [address] Sep, [facility] [address] [id number] [address] [place] [address], [place] [address] Sep, [facility] [address] [id number] [address] [place] [address], [place] [address] 07 Sep, 2012 [facility] [address] [id number] [address] [place] [address], [place] [address] August, [facility] [address] [id number] [address] [place] [address], [place] [address] August, [facility] [address] [id number] [address] [place] [address], [place] [address] August, [facility] [address] [id number] [address] [place] [address], [place] [address] August, [facility] [place] [address] [id number] [address] [place] [address], [place] [address] Jul, [facility] [place] [address] [id number] [address] [place] [address], [place] [address] Jun, [facility] [place] [address] [id number] [address] [place] [address], [place] [address] Jun, [facility] [address] [id number] [address] [place] [address], [place] [address] 05 Jun, 2012 [facility] [place] [address] [id number] [address] [place] [address], [place] [address] May, [facility] [address] [id number] [address] [place] [address], [place] [address] May, [facility] [place] [address] [id number] [address] [place] [address], [place] [address] May, [facility] [address] [id number] [address] [place] [address], [place] [address] May, [facility] [address] [id number] [address] [place] [address], [place] [address] Apr, [facility] [address] [id number] [address] [place] [address], [place] [address] Apr, [facility] [address] [id number] [address] [place] [address], [place] [address] Apr, [facility] [address] [id number] [address] [place] [address], [place] [address] Apr, [facility] [address] [id number] [address] [place] [address], [place] [address] Apr, [facility] [address] [id number] [address] [place] [address], [place] [address] Mar, [facility] [address] [id number] [address] [place] [address], [place] [address] Mar, [facility] [address] [id number] [address] [place] [address], [place] [address] Mar, [facility] [address] [id number] [address] [place] [address], [place] [address] Mar, [facility] [address] [id number] [address] [place] [address], [place] [address] Mar, [facility] [address] [id number] [address] [place] [address], [place] [address] Mar, [facility] [address] [id number] [address] [place] [address], [place] [address] Mar, [facility] [address] [id number] [address] [place] [address], [place] [address] Feb, [facility] [address] [id number] [address] [place] [address], [place] [address] Feb, [facility] [address] [id number] [address] [place] [address], [place] [address] Feb, [facility] [address] [id number] [address] [place] [address], [place] [address] Feb, [facility] [address] [id number] [address] [place] [address], [place] [address] Feb, [facility] [address] [id number] [address] [place] [address], [place] [address] Feb, [facility] [address] [id number] [address] [place] [id number] Feb, [facility] [address] [id number] [address] [place] [address], [place] [address] Feb, [facility] [address] [id number] [address] [place] [address], [place] [address] Jan, [facility] [address] [id number] [address] [place] [address], [place] [address] Jan, [facility] [address] [id number] [address] [place] [address], [place] [address] Jan, [facility] [address] [id number] [address] [place] [address], [place] [address] Jan, [facility] [address] [id number] [address] [place] [address], [place] [address] 27 Dec, 2011 [facility] [address] [id number] [address] [place] [address], [place] [address] 25 Dec, 2011 [facility] [address] [id number] [address] [place] [address], [place] [address] 18 Dec, 2011 [facility] [address] [id number] [address] [place] [address], [place] [address] 13 Dec, 2011 [facility] [address] [id number] [address] [place] [address], [place] [address] 11 Dec, 2011 [facility] [address] [id number] [address] [place] [address], [place] [address] Oct, [facility] [address] [id number] [address] [place] [id number] Oct, [facility] [address] [id number] [address] [place] [address], [place] [address] Sep, [facility] [address] [id number] [address] [place] [address], [place] [address] Sep, [facility] [address] [id number] [address] [place] [address], [place] [address] August, [facility] [address] [id number] [address] [place] [address], [place] [address] August, [facility] [address] [id number] [address] [place] [address], [place] [address] 04 Jul, 2011 [facility] [address] [id number] [address] [place] [address], [place] [address] 28 Jun, 2011 [facility] [address] [id number] [address] [place] [address], [place] [address] Jun, [facility] [address] [id number] [address] [place] [address], [place] [address] 23 Jun, 2011 [facility] [address] [id number] [address] [place] [address], [place] [address] Jun, [facility] [address] [id number] [address] [place] [address], [place] [address] Jun, [facility] [address] [id number] [address] [place] [address], [place] [address] 24 May, 2011 [facility] [address] [id number] [address] [place] [address], [place] [address] May, [facility] [address] [id number] [address] [place] [address], [place] [address] 20 May, 2011 [facility] [address] [id number] [address] [place] [address], [place] [address] 14 May, 2011 [facility] [address] [id number] [address] [place] [address], [place] [address] 13 May, 2011 [facility] [address] [id number] [address] [place] [address], [place] [address] 03 May, 2011 [facility] [address] [id number] [address] [place] [address], [place] [address] 02 May, 2011 [facility] [address] [id number] [address] [place] [address], [place] [address] 02 May, 2011 [facility] [address] [id number] [address] [place] [id number] Apr, [facility] [address] [id number] [address] [place] [id number] Mar, [facility] [address] [id number] [address] [place] [id number] Mar, [facility] [address] [id number] [address] [place] [id number] Mar, [facility] [address] [id number] [address] [place] [id number] Mar, [facility] [address] [id number] [address] [place] [id number] Mar, [facility] [address] [id number] [address] [place] [id number] Jan, [facility] [address] [id number] [address] [place] [id number] Jan, [facility] [address] [id number] [address] [place] [id number] Jan, [facility] [address] [id number] [address] [place] [id number] August, [facility] [address] [id number] [address] [place] [id number] Mar, [facility] [address] [id number] [address] [place] [id number] Feb, [facility] [address] [id number] [address] [place] [id number] Jan, [facility] [address] [id number] [address] [place] [id number] Jan, IMMUNIZATIONS No Known Immunizations SOCIAL HISTORY [...]
--- OUTSIDE RECORDS SUMMARY | 2019-08-20 16:02 | XMS REPORT ---
Author Author Talia HUDSON Organization [facility] Address [address] [place] [address] Care Team Providers Care Physical Geographer Name Role Phone KATIE HUDSON Unavailable PROBLEMS Type Condition ICD9-CM Code QLF61-WM Code Onset Dates Condition S tatus SNOMED Code Problem CAD (coronary artery disease) I25.10 Active 81465286 Problem Osteoarthritis of knees, bilateral M17.0 Active 557067247 Problem Essential hypertension I10 Active 68455880 Problem Diabetes E11.9 Active 94473890 Problem Arthritis M19.90 Active 1701685 Problem Morbid obesity E66.01 Active 45415 6002 Problem Hyperlipemia E78.5 Active 3972815 4 ALLERGIES No Information ENCOUNTERS Encounter Location Date Diagnosis [facility] [address] [address] Jun, [facility] [address] [address] Jun, [facility] [address] [address] Jun, Diabetes E11.9 ; Skin infection L08.9 an d Essential hypertension I10 [facility] [address] [address] 05 May, 2019 [facility] [address] [address] May, [facility] [address] [address] May, [facility] [address] [address] Apr, [facility] [address] [address] Mar, [place] [address] [address] Mar, [facility] [address] [address] Feb, [facility] [address] [address] Nov, [place] [address] [address] Nov, Diabetes E11.9 and Syncope, unspecified syncope type R55 [place] [address] [address] Nov, Osteoarthritis of knees, bilateral M17.0 [place] [address] [address] Oct, Diabetes E11.9 ; CAD (coronary artery di sease) I25.10 ; Essential hypertension I10 and Hyperlipemia E78.5 [place] [address] [address] Sep, [place] [address] [address] Jul, [place] [address] [address] Apr, [place] [address] [address] Mar, Pustular lesion L08.9 and Encounter for immunization Z23 [place] [address] [address] Feb, [place] [address] [address] Dec, [place] [address] [address] Dec, [place] [address] [address] Dec, Diabetes E11.9 ; Essential hypertension I10 ; Arthritis M19.90 ; Urinary frequency R35.0 ; Routine adult health maintenance Z00.00 and BMI 45.0- 49.9, adult Z68.42 [place] [address] [address] 18 Dec, 2017 [place] [address] [address] Dec, [place] [address] [address] Oct, [place] [address] [address] Sep, Diabetes E11.9 [place] [address] [address] Sep, Diabetes E11.9 ; Hyperlipemia E78.5 ; CA D (coronary artery disease) I25.10 ; Essential hypertension I10 and BMI 45.0-49.9, adult Z68.42 [place] [address] [address] Sep, [place] [address] [address] August, [place] [address] [address] Jan, Dysuria R30.0 [place] [address] [address] Jan, Dysuria R30.0 [place] [address] [address] Jan, Osteoarthritis of knees, bilateral M17.0 [place] [address] [address] Nov, Dysuria R30.0 [place] [address] [address] Oct, Blood in urine R31.9 ; Dysuria R30.0 ; P haryngeal dysphagia R13.13 ; Acute cystitis with hematuria N30.01 ; CAD (coronary artery disease) I25.10 and Diabetes E11.9 [place] [address] [address] Oct, [place] [address] [address] Sep, Arthritis M19.90 ; Blood in urine R31.9 ; Diabetes E11.9 ; Acute cystitis with hematuria N30.01 and Pharyngoesophageal dysphagia R13.14 [place] [address] [address] Sep, Osteoarthritis of knees, bilateral M17.0 [place] [address] [address] Sep, Osteoarthritis of knees, bilateral M17.0 [place] [address] [address] August, Arthritis M19.90 [place] [address] [address] Jul, Arthritis M19.90 [place] [address] [address] Jun, Arthritis M19.90 [place] [address] [address] Jun, [place] [address] [address] Jun, [place] [address] [address] May, Diabetes E11.9 ; Dysuria R30.0 and Arthr itis M19.90 [place] [address] [address] Apr, [place] [address] [address] Apr, Arthritis M19.90 [place] [address] [address] Mar, Arthritis M19.90 [facility] [address] [place] [address] [id number] [place] [address] Feb, [facility] [address] [address] Jan, [facility] [address] [address] Dec, Diabetes E11.9 and Arthritis M19.90 [facility] [address] [address] Dec, [facility] [address] [address] Nov, Arthritis M19.90 [facility] [address] [place] [id number] [place] [address] Nov, [facility] [address] [address] Oct, Arthritis M19.90 [facility] [address] [address] Sep, Osteoarthritis of knees, bilateral M17.0 [facility] [address] [address] Sep, Osteoarthritis of knees, bilateral M17.0 [facility] [address] [address] August, Arthritis M19.90 [facility] [address] [address] August, [facility] [address] [address] Jul, Hyperlipemia E78.5 [place] [address] [address] Jul, Encounter for well woman exam Z01.419 ; Morbid obesity E66.01 ; Encounter for screening for malignant neoplasm of cervix Z12.4 and Encounter for screening mammogram for breast cancer Z12.31 [place] [address] [address] Jul, Arthritis M19.90 ; Diabetes E11.9 ; Bloo d in urine R31.9 and UTI (urinary tract infection) N39.0 [facility] [address] [address] Jul, [place] [address] [address] Jun, Arthritis M19.90 [place] [address] [address] May, Arthritis M19.90 [place] [address] [address] May, [place] [address] [address] Apr, [place] [address] [address] Apr, Arthritis M19.90 ; Diabetes E11.9 and Mo rbid obesity E66.01 [place] [address] [address] Apr, [place] [address] [address] Apr, Dyspareunia N94.1 [place] [address] [address] Apr, [place] [address] [address] Apr, [place] [address] [address] Apr, Osteoarthritis of knees, bilateral M17.0 [place] [address] [address] Apr, Diabetes E11.9 and CAD (coronary artery disease) I25.10 [place] [address] [address] Mar, [facility] [id number] [place] [address] Feb, [facility] [id number] [place] [address] Jan, [facility] [id number] [place] [address] Jan, [facility] [id number] [place] [address] Jan, [facility] [id number] [place] [address] Jan, Osteoarthritis of knees, bilateral M17.0 [facility] [id number] [place] [address] Dec, [facility] [id number] [place] [address] Dec, [facility] [id number] [place] [address] Dec, [facility] [id number] [place] [address] Dec, Diabetes mellitus 250.00 and UTI (urinar y tract infection) 599.0 [facility] [id number] [place] [address] Dec, [facility] [id number] [place] [address] Nov, [facility] [id number] [place] [address] Oct, [facility] [id number] [place] [address] Oct, [facility] [id number] [place] [address] Oct, [facility] [id number] [place] [address] Oct, [facility] [id number] [place] [address] Oct, [facility] [place] [facility] [address] [facility] [id number] [facility] [place] [address] Sep, [facility] [place] [facility] [address] [id number] [place] [address] August, [facility] [place] [facility] [address] [id number] [place] [address] August, [facility] [place] [facility] [address] [id number] [place] [address] August, [facility] [place] [facility] [address] [id number] [place] [address] Jul, [facility] [place] [facility] [address] [id number] [place] [address] Jul, [facility] [place] [facility] [address] [id number] [place] [address] Jul, [facility] [place] [facility] [address] [id number] [place] [address] Jun, [facility] [place] [facility] [address] [id number] [place] [address] Jun, [facility] [place] [facility] [address] [id number] [place] [address] Jun, [facility] [place] [facility] [address] [id number] [place] [address] Jun, [facility] [place] [facility] [address] [id number] [place] [address] Jun, [facility] [place] [facility] [address] [id number] [place] [address] Jun, [facility] [place] [facility] [address] [id number] [place] [address] Jun, [facility] [place] [facility] [address] [id number] [place] [address] Jun, [facility] [place] [facility] [address] [id number] [place] [address] May, [facility] [place] [facility] [address] [facility] [id number] [facility] [place] [address] May, 2014 [facility] [place] [facility] [address] [id number] [facility] [place] [address] May, 2014 [facility] [place] [facility] [address] [facility] [id number] [facility] [place] [address] May, 2014 [facility] [place] [facility] [address] [id number] [place] [address] May, 2014 [facility] [place] [facility] [address] [facility] [id number] [facility] [place] [address] May, 2014 [facility] [place] [facility] [address] [id number] [place] [address] May, 2014 [facility] [place] [facility] [address] [id number] [place] [address] May, 2014 [facility] [place] [facility] [address] [id number] [place] [address] May, 2014 [facility] [place] [facility] [address] [id number] [place] [address] May, 2014 [facility] [place] [facility] [address] [id number] [place] [address] May, 2014 [facility] [place] [facility] [address] [id number] [place] [address] May, [facility] [place] [facility] [address] [id number] [place] [address] Apr, [facility] [place] [facility] [address] [id number] [place] [address] Apr, [facility] [place] [facility] [address] [id number] [place] [address] Mar, [facility] [place] [facility] [address] [id number] [place] [address] Mar, [facility] [place] [facility] [address] [id number] [place] [address] Mar, [facility] [place] [facility] [address] [id number] [place] [address] 17 Mar, 2014 [facility] [place] [facility] [address] [id number] [place] [address] 17 Mar, 2014 [facility] [place] [facility] [address] [id number] [place] [address] 16 Mar, 2014 [facility] [place] [facility] [address] [id number] [place] [address] Feb, [facility] [place] [facility] [address] [id number] [place] [address] Feb, [facility] [place] [facility] [address] [id number] [place] [address] Feb, [facility] [place] [facility] [address] [id number] [place] [address] Feb, [facility] [place] [facility] [address] [id number] [place] [address] Feb, [facility] [place] [facility] [address] [id number] [place] [address] Feb, [facility] [place] [facility] [address] [id number] [place] [address] Feb, [facility] [place] [facility] [address] [id number] [place] [address] Feb, [facility] [place] [facility] [address] [id number] [place] [address] Feb, [facility] [place] [facility] [address] [id number] [place] [address] Jan, [facility] [place] [facility] [address] [id number] [place] [address] Jan, [facility] [place] [facility] [id number] [place] [address] Jan, [facility] [place] [facility] [address] [id number] [place] [address] Jan, [facility] [place] [facility] [address] [id number] [place] [address] Jan, [facility] [place] [facility] [address] [facility] [id number] [place] [address] Jan, [facility] [place] [facility] [address] [facility] [id number] [place] [address] Jan, [facility] [place] [facility] [address] [facility] [id number] [place] [address] Jan, [facility] [place] [facility] [address] [id number] [place] [address] Jan, [facility] [place] [facility] [address] [facility] [id number] [place] [address] Jan, [facility] [place] [facility] [address] [id number] [place] [address] Dec, [facility] [place] [facility] [address] [id number] [place] [address] Dec, [facility] [place] [facility] [address] [id number] [place] [address] Dec, [facility] [place] [facility] [address] [id number] [place] [address] Dec, [facility] [place] [facility] [address] [id number] [place] [address] Nov, [facility] [place] [facility] [address] [id number] [place] [address] Nov, [facility] [place] [facility] [address] [id number] [place] [address] Nov, [facility] [place] [facility] [address] [id number] [place] [address] Nov, [facility] [place] [facility] [address] [facility] [id number] [place] [address] Nov, [facility] [place] [facility] [address] [id number] [place] [address] Nov, [facility] [place] [facility] [address] [id number] [place] [address] Nov, [facility] [place] [facility] [address] [id number] [place] [address] Nov, [facility] [place] [facility] [address] [id number] [facility] [place] [address] Nov, [facility] [place] [facility] [address] [id number] [place] [address] Oct, [facility] [place] [facility] [address] [facility] [id number] [facility] [place] [address] Oct, [facility] [place] [facility] [address] [id number] [facility] [place] [address] Sep, [facility] [place] [facility] [address] [id number] [place] [address] Sep, [facility] [place] [facility] [address] [id number] [place] [address] Sep, [facility] [place] [facility] [address] [facility] [id number] [facility] [place] [address] Sep, [facility] [place] [facility] [address] [id number] [facility] [place] [address] Sep, [facility] [place] [facility] [address] [id number] [facility] [place] [address] Sep, [facility] [place] [facility] [address] [id number] [facility] [place] [address] Sep, [facility] [place] [facility] [address] [facility] [id number] [place] [address] Sep, [facility] [place] [facility] [address] [id number] [place] [address] Sep, [facility] [place] [facility] [address] [id number] [facility] [place] [address] Sep, [facility] [place] [facility] [address] [id number] [place] [address] Sep, [facility] [place] [facility] [address] [facility] [id number] [place] [address] Sep, [facility] [place] [facility] [address] [facility] [id number] [place] [address] Sep, [facility] [place] [facility] [address] [id number] [place] [address] Sep, [facility] [place] [facility] [address] [id number] [place] [address] August, [facility] [place] [facility] [address] [id number] [place] [address] August, [facility] [place] [facility] [address] [id number] [place] [address] August, [facility] [place] [facility] [address] [id number] [place] [address] August, [facility] [place] [facility] [address] [id number] [place] [address] Jul, [facility] [place] [facility] [address] [id number] [place] [address] Jul, [facility] [place] [facility] [address] [id number] [place] [address] Jul, [facility] [place] [facility] [address] [id number] [place] [address] Jul, [facility] [place] [facility] [address] [id number] [place] [address] Jun, [facility] [place] [facility] [address] [id number] [place] [address] Jun, [facility] [place] [facility] [address] [id number] [place] [address] May, [facility] [place] [facility] [address] [id number] [place] [address] May, [facility] [place] [facility] [address] [id number] [place] [address] May, [facility] [place] [facility] [address] [id number] [place] [address] May, [facility] [place] [facility] [address] [id number] [place] [address] May, [facility] [place] [facility] [address] [id number] [place] [address] May, [facility] [place] [facility] [address] [facility] [id number] [place] [address] May, [facility] [place] [facility] [address] [id number] [place] [address] May, [facility] [place] [facility] [address] [id number] [place] [address] May, [facility] [place] [facility] [address] [id number] [place] [address] Apr, [facility] [place] [facility] [address] [facility] [id number] [place] [address] Apr, [facility] [place] [facility] [address] [id number] [place] [address] Apr, [facility] [place] [facility] [address] [id number] [place] [address] Apr, [facility] [address] [id number] [place] [address] Apr, [facility] [address] [id number] [place] [address] Mar, [facility] [address] [id number] [place] [address] Mar, [facility] [address] [id number] [place] [address] Feb, [facility] [address] [id number] [place] [address] Feb, [facility] [address] [id number] [place] [address] Feb, [facility] [address] [id number] [place] [address] Feb, [facility] [address] [id number] [place] [address] Feb, [facility] [address] [id number] [place] [address] Feb, [facility] [address] [id number] [place] [address] Feb, [facility] [address] [facility] [id number] [place] [address] Feb, [facility] [address] [id number] [place] [address] Feb, [facility] [address] [id number] [place] [address] Jan, [facility] [address] [id number] [place] [address] Jan, [facility] [address] [id number] [place] [address] Jan, [facility] [address] [id number] [place] [address] Jan, [facility] [address] [id number] [place] [address] Jan, [facility] [address] [id number] [place] [address] Dec, [facility] [address] [id number] [place] [address] Dec, [facility] [address] [id number] [place] [address] Nov, [facility] [address] [id number] [place] [address] Nov, [facility] [address] [id number] [place] [address] Oct, [facility] [address] [id number] [place] [address] Oct, [facility] [address] [id number] [place] [address] Oct, [facility] [address] [id number] [place] [address] Sep, [facility] [address] [id number] [place] [address] Sep, [facility] [address] [id number] [place] [address] Sep, [facility] [address] [id number] [place] [address] August, [facility] [address] [id number] [place] [address] August, [facility] [address] [id number] [place] [address] August, [facility] [address] [id number] [place] [address] August, [facility] [address] [id number] [place] [address] Jul, [facility] [address] [id number] [place] [address] Jun, [facility] [address] [id number] [place] [address] Jun, [facility] [address] [id number] [place] [address] Jun, [facility] [address] [id number] [place] [address] May, [facility] [address] [id number] [place] [address] May, [facility] [address] [id number] [place] [address] May, [facility] [address] [id number] [place] [address] May, [facility] [address] [id number] [place] [address] Apr, [facility] [address] [id number] [place] [address] Apr, [facility] [address] [id number] [place] [address] Apr, [facility] [address] [id number] [place] [address] Apr, [facility] [address] [id number] [place] [address] Apr, [facility] [address] [id number] [place] [address] Mar, [facility] [address] [id number] [place] [address] Mar, [facility] [address] [id number] [place] [address] Mar, [facility] [address] [id number] [place] [address] Mar, [facility] [address] [id number] [place] [address] Mar, [facility] [address] [id number] [place] [address] Mar, [facility] [address] [id number] [place] [address] Mar, [facility] [address] [id number] [place] [address] Feb, [facility] [address] [id number] [place] [address] Feb, [facility] [address] [facility] [id number] [place] [address] Feb, [facility] [id number] [place] [address] Feb, [facility] [address] [facility] [address] [id number] [place] [address] Feb, [facility] [address] [facility] [address] [id number] [place] [address] Feb, [facility] [address] [address] [id number] [place] [address] Feb, [facility] [address] [facility] [address] [id number] [place] [address] Feb, [facility] [address] [id number] [place] [address] 24 Jan, 2012 [facility] [id number] [place] [address] 24 Jan, 2012 [facility] [id number] [place] [address] Jan, [facility] [id number] [place] [address] Jan, [facility] [id number] [place] [address] 27 Dec, 2011 [facility] [id number] [place] [address] 25 Dec, 2011 [facility] [id number] [place] [address] 18 Dec, 2011 [facility] [id number] [place] [address] 13 Dec, 2011 [facility] [id number] [place] [address] 11 Dec, 2011 [facility] [address] [id number] [place] [address] Oct, [facility] [id number] [place] [address] Oct, [facility] [id number] [place] [address] Sep, [facility] [id number] [place] [address] Sep, [facility] [id number] [place] [address] August, [facility] [id number] [place] [address] August, [facility] [id number] [place] [address] Jul, [facility] [id number] [place] [address] Jun, [facility] [id number] [place] [address] Jun, [facility] [id number] [place] [address] 23 Jun, 2011 [facility] [id number] [place] [address] Jun, [facility] [id number] [place] [address] Jun, [facility] [id number] [place] [address] 24 May, 2011 [facility] [id number] [place] [address] May, [facility] [id number] [place] [address] 20 May, 2011 [facility] [id number] [place] [address] 14 May, 2011 [facility] [id number] [place] [address] 13 May, 2011 [facility] [id number] [place] [address] 03 May, 2011 [facility] [id number] [place] [address] 02 May, 2011 [facility] [id number] [place] [address] May, [facility] [id number] [place] [address] Apr, [facility] [id number] [place] [address] Mar, [facility] [id number] [place] [address] Mar, [facility] [id number] [place] [address] Mar, [facility] [id number] [place] [address] 15 Mar, 2011 [facility] [id number] [place] [address] Mar, [facility] [id number] [place] [address] Jan, [facility] [id number] [place] [address] Jan, [facility] [id number] [place] [address] Jan, [facility] [id number] [place] [address] August, [facility] [id number] [place] [address] Mar, [facility] [id number] [place] [address] Feb, [facility] [id number] [place] [address] 14 Jan, 2010 [facility] [id number] [place] [address] Jan, IMMUNIZATIONS No Known Immunizations SOCIAL HISTORY [...]
--- OUTSIDE RECORDS SUMMARY | 2019-08-20 16:02 | XMS REPORT ---
Author Author Talia HUDSON Organization [facility] Address [address] [place] [address] Care Team Providers Care Travel Registered Nurse Oncology Name Role Phone KATIE HUDSON Unavailable PROBLEMS Type Condition ICD9-CM Code SBR50-TG Code Onset Dates Condition S tatus SNOMED Code Problem CAD (coronary artery disease) I25.10 Active 14462860 Problem Osteoarthritis of knees, bilateral M17.0 Active 375049655 Problem Essential hypertension I10 Active 27714428 Problem Diabetes E11.9 Active 91505403 Problem Arthritis M19.90 Active 0353910 Problem Morbid obesity E66.01 Active 42947 6002 Problem Hyperlipemia E78.5 Active 6074727 4 ALLERGIES No Information ENCOUNTERS Encounter Location Date Diagnosis [facility] [address] [address] Jun, [facility] [address] [address] Jun, [facility] [address] [address] Jun, Diabetes E11.9 ; Skin infection L08.9 an d Essential hypertension I10 [facility] [address] [address] 05 May, 2019 [facility] [address] [address] May, [facility] [address] [address] May, [facility] [address] [address] Apr, [facility] [address] [address] Mar, [place] [address] [address] Mar, [facility] [address] [address] Feb, [facility] [address] [address] Nov, [place] [address] [address] Nov, Diabetes E11.9 and Syncope, unspecified syncope type R55 [place] [address] [address] Nov, Osteoarthritis of knees, bilateral M17.0 [place] [address] [address] Oct, Diabetes E11.9 ; CAD (coronary artery di sease) I25.10 ; Essential hypertension I10 and Hyperlipemia E78.5 [place] [address] [address] Sep, [place] [address] [address] Jul, [place] [address] [address] Apr, [place] [address] [address] Mar, Pustular lesion L08.9 and Encounter for immunization Z23 [place] [address] [address] Feb, [place] [address] [address] Dec, [place] [address] [address] Dec, [place] [address] [address] Dec, Diabetes E11.9 ; Essential hypertension I10 ; Arthritis M19.90 ; Urinary frequency R35.0 ; Routine adult health maintenance Z00.00 and BMI 45.0- 49.9, adult Z68.42 [place] [address] [address] 18 Dec, 2017 [place] [address] [address] Dec, [place] [address] [address] Oct, [place] [address] [address] Sep, Diabetes E11.9 [place] [address] [address] Sep, Diabetes E11.9 ; Hyperlipemia E78.5 ; CA D (coronary artery disease) I25.10 ; Essential hypertension I10 and BMI 45.0-49.9, adult Z68.42 [place] [address] [address] Sep, [place] [address] [address] August, [place] [address] [address] Jan, Dysuria R30.0 [place] [address] [address] Jan, Dysuria R30.0 [place] [address] [address] Jan, Osteoarthritis of knees, bilateral M17.0 [place] [address] [address] Nov, Dysuria R30.0 [place] [address] [address] Oct, Blood in urine R31.9 ; Dysuria R30.0 ; P haryngeal dysphagia R13.13 ; Acute cystitis with hematuria N30.01 ; CAD (coronary artery disease) I25.10 and Diabetes E11.9 [place] [address] [address] Oct, [place] [address] [address] Sep, Arthritis M19.90 ; Blood in urine R31.9 ; Diabetes E11.9 ; Acute cystitis with hematuria N30.01 and Pharyngoesophageal dysphagia R13.14 [place] [address] [address] Sep, Osteoarthritis of knees, bilateral M17.0 [place] [address] [address] Sep, Osteoarthritis of knees, bilateral M17.0 [place] [address] [address] August, Arthritis M19.90 [place] [address] [address] Jul, Arthritis M19.90 [place] [address] [address] Jun, Arthritis M19.90 [place] [address] [address] Jun, [place] [address] [address] Jun, [place] [address] [address] May, Diabetes E11.9 ; Dysuria R30.0 and Arthr itis M19.90 [place] [address] [address] Apr, [place] [address] [address] Apr, Arthritis M19.90 [place] [address] [address] Mar, Arthritis M19.90 [facility] [id number] [place] [address] Feb, [facility] [address] [address] Jan, [facility] [address] [address] Dec, Diabetes E11.9 and Arthritis M19.90 [facility] [address] [address] Dec, [facility] [address] [address] Nov, Arthritis M19.90 [facility] [address] [place] [id number] [place] [address] Nov, [facility] [address] [address] Oct, Arthritis M19.90 [facility] [address] [address] Sep, Osteoarthritis of knees, bilateral M17.0 [facility] [address] [address] Sep, Osteoarthritis of knees, bilateral M17.0 [facility] [address] [address] August, Arthritis M19.90 [facility] [address] [address] August, [facility] [address] [address] Jul, Hyperlipemia E78.5 [place] [address] [address] Jul, Encounter for well woman exam Z01.419 ; Morbid obesity E66.01 ; Encounter for screening for malignant neoplasm of cervix Z12.4 and Encounter for screening mammogram for breast cancer Z12.31 [place] [address] [address] Jul, Arthritis M19.90 ; Diabetes E11.9 ; Bloo d in urine R31.9 and UTI (urinary tract infection) N39.0 [facility] [address] [address] Jul, [place] [address] [address] Jun, Arthritis M19.90 [place] [address] [address] May, Arthritis M19.90 [place] [address] [address] May, [place] [address] [address] Apr, [place] [address] [address] Apr, Arthritis M19.90 ; Diabetes E11.9 and Mo rbid obesity E66.01 [place] [address] [address] Apr, [place] [address] [address] Apr, Dyspareunia N94.1 [place] [address] [address] Apr, [place] [address] [address] Apr, [place] [address] [address] Apr, Osteoarthritis of knees, bilateral M17.0 [place] [address] [address] Apr, Diabetes E11.9 and CAD (coronary artery disease) I25.10 [place] [address] [address] Mar, [facility] [id number] [place] [address] Feb, [facility] [id number] [place] [address] Jan, [facility] [id number] [place] [address] Jan, [facility] [id number] [place] [address] Jan, [facility] [id number] [place] [address] Jan, Osteoarthritis of knees, bilateral M17.0 [facility] [id number] [place] [address] Dec, [facility] [id number] [place] [address] Dec, [facility] [id number] [place] [address] Dec, [facility] [id number] [place] [address] Dec, Diabetes mellitus 250.00 and UTI (urinar y tract infection) 599.0 [facility] [id number] [place] [address] Dec, [facility] [id number] [place] [address] Nov, [facility] [id number] [place] [address] Oct, [facility] [id number] [place] [address] Oct, [facility] [id number] [place] [address] Oct, [facility] [id number] [place] [address] Oct, [facility] [id number] [place] [address] Oct, [facility] [place] [facility] [address] [facility] [id number] [facility] [place] [address] Sep, [facility] [place] [facility] [address] [id number] [place] [address] August, [facility] [place] [facility] [address] [id number] [place] [address] August, [facility] [place] [facility] [address] [id number] [place] [address] August, [facility] [place] [facility] [address] [id number] [place] [address] Jul, [facility] [place] [facility] [address] [id number] [place] [address] Jul, [facility] [place] [facility] [address] [id number] [place] [address] Jul, [facility] [place] [facility] [address] [id number] [place] [address] Jun, [facility] [place] [facility] [address] [id number] [place] [address] Jun, [facility] [place] [facility] [address] [id number] [place] [address] Jun, [facility] [place] [facility] [address] [id number] [place] [address] Jun, [facility] [place] [facility] [address] [id number] [place] [address] Jun, [facility] [place] [facility] [address] [id number] [place] [address] Jun, [facility] [place] [facility] [address] [id number] [place] [address] Jun, [facility] [place] [facility] [address] [id number] [place] [address] Jun, [facility] [place] [facility] [address] [id number] [place] [address] May, [facility] [place] [facility] [address] [facility] [id number] [facility] [place] [address] May, 2014 [facility] [place] [facility] [address] [id number] [facility] [place] [address] May, 2014 [facility] [place] [facility] [address] [facility] [id number] [facility] [place] [address] May, 2014 [facility] [place] [facility] [address] [id number] [place] [address] May, 2014 [facility] [place] [facility] [address] [facility] [id number] [facility] [place] [address] May, 2014 [facility] [place] [facility] [address] [id number] [place] [address] May, 2014 [facility] [place] [facility] [address] [id number] [place] [address] May, 2014 [facility] [place] [facility] [address] [id number] [place] [address] May, 2014 [facility] [place] [facility] [address] [id number] [place] [address] May, 2014 [facility] [place] [facility] [address] [id number] [place] [address] May, 2014 [facility] [place] [facility] [address] [id number] [place] [address] May, [facility] [place] [facility] [address] [id number] [place] [address] Apr, [facility] [place] [facility] [address] [id number] [place] [address] Apr, [facility] [place] [facility] [address] [id number] [place] [address] Mar, [facility] [place] [facility] [address] [id number] [place] [address] Mar, [facility] [place] [facility] [address] [id number] [place] [address] Mar, [facility] [place] [facility] [address] [id number] [place] [address] 17 Mar, 2014 [facility] [place] [facility] [address] [id number] [place] [address] 17 Mar, 2014 [facility] [place] [facility] [address] [id number] [place] [address] 16 Mar, 2014 [facility] [place] [facility] [address] [id number] [place] [address] Feb, [facility] [place] [facility] [address] [id number] [place] [address] Feb, [facility] [place] [facility] [address] [id number] [place] [address] Feb, [facility] [place] [facility] [address] [id number] [place] [address] Feb, [facility] [place] [facility] [address] [id number] [place] [address] Feb, [facility] [place] [facility] [address] [id number] [place] [address] Feb, [facility] [place] [facility] [address] [id number] [place] [address] Feb, [facility] [place] [facility] [address] [id number] [place] [address] Feb, [facility] [place] [facility] [address] [id number] [place] [address] Feb, [facility] [place] [facility] [address] [id number] [place] [address] Jan, [facility] [place] [facility] [address] [id number] [place] [address] Jan, [facility] [place] [facility] [id number] [place] [address] Jan, [facility] [place] [facility] [address] [id number] [place] [address] Jan, [facility] [place] [facility] [address] [id number] [place] [address] Jan, [facility] [place] [facility] [address] [facility] [id number] [place] [address] Jan, [facility] [place] [facility] [address] [facility] [id number] [place] [address] Jan, [facility] [place] [facility] [address] [facility] [id number] [place] [address] Jan, [facility] [place] [facility] [address] [id number] [place] [address] Jan, [facility] [place] [facility] [address] [facility] [id number] [place] [address] Jan, [facility] [place] [facility] [address] [id number] [place] [address] Dec, [facility] [place] [facility] [address] [id number] [place] [address] Dec, [facility] [place] [facility] [address] [id number] [place] [address] Dec, [facility] [place] [facility] [address] [id number] [place] [address] Dec, [facility] [place] [facility] [address] [id number] [place] [address] Nov, [facility] [place] [facility] [address] [id number] [place] [address] Nov, [facility] [place] [facility] [address] [id number] [place] [address] Nov, [facility] [place] [facility] [address] [id number] [place] [address] Nov, [facility] [place] [facility] [address] [facility] [id number] [place] [address] Nov, [facility] [place] [facility] [address] [id number] [place] [address] Nov, [facility] [place] [facility] [address] [id number] [place] [address] Nov, [facility] [place] [facility] [address] [id number] [place] [address] Nov, [facility] [place] [facility] [address] [id number] [facility] [place] [address] Nov, [facility] [place] [facility] [address] [id number] [place] [address] Oct, [facility] [place] [facility] [address] [facility] [id number] [facility] [place] [address] Oct, [facility] [place] [facility] [address] [id number] [facility] [place] [address] Sep, [facility] [place] [facility] [address] [id number] [place] [address] Sep, [facility] [place] [facility] [address] [id number] [place] [address] Sep, [facility] [place] [facility] [address] [facility] [id number] [facility] [place] [address] Sep, [facility] [place] [facility] [address] [id number] [facility] [place] [address] Sep, [facility] [place] [facility] [address] [id number] [facility] [place] [address] Sep, [facility] [place] [facility] [address] [id number] [facility] [place] [address] Sep, [facility] [place] [facility] [address] [facility] [id number] [place] [address] Sep, [facility] [place] [facility] [address] [id number] [place] [address] Sep, [facility] [place] [facility] [address] [id number] [facility] [place] [address] Sep, [facility] [place] [facility] [address] [id number] [place] [address] Sep, [facility] [place] [facility] [address] [facility] [id number] [place] [address] Sep, [facility] [place] [facility] [address] [facility] [id number] [place] [address] Sep, [facility] [place] [facility] [address] [id number] [place] [address] Sep, [facility] [place] [facility] [address] [id number] [place] [address] August, [facility] [place] [facility] [address] [id number] [place] [address] August, [facility] [place] [facility] [address] [id number] [place] [address] August, [facility] [place] [facility] [address] [id number] [place] [address] August, [facility] [place] [facility] [address] [id number] [place] [address] Jul, [facility] [place] [facility] [address] [id number] [place] [address] Jul, [facility] [place] [facility] [address] [id number] [place] [address] Jul, [facility] [place] [facility] [address] [id number] [place] [address] Jul, [facility] [place] [facility] [address] [id number] [place] [address] Jun, [facility] [place] [facility] [address] [id number] [place] [address] Jun, [facility] [place] [facility] [address] [id number] [place] [address] May, [facility] [place] [facility] [address] [id number] [place] [address] May, [facility] [place] [facility] [address] [id number] [place] [address] May, [facility] [place] [facility] [address] [id number] [place] [address] May, [facility] [place] [facility] [address] [id number] [place] [address] May, [facility] [place] [facility] [address] [id number] [place] [address] May, [facility] [place] [facility] [address] [facility] [id number] [place] [address] May, [facility] [place] [facility] [address] [id number] [place] [address] May, [facility] [place] [facility] [address] [id number] [place] [address] May, [facility] [place] [facility] [address] [id number] [place] [address] Apr, [facility] [place] [facility] [address] [facility] [id number] [place] [address] Apr, [facility] [place] [facility] [address] [id number] [place] [address] Apr, [facility] [place] [facility] [address] [id number] [place] [address] Apr, [facility] [place] [facility] [address] [id number] [place] [address] Apr, [facility] [place] [facility] [address] [id number] [place] [address] Mar, [facility] [place] [facility] [address] [id number] [place] [address] Mar, [facility] [place] [facility] [address] [id number] [place] [address] Feb, [facility] [place] [facility] [address] [id number] [place] [address] Feb, [facility] [place] [facility] [address] [id number] [place] [address] Feb, [facility] [place] [facility] [address] [id number] [place] [address] Feb, [facility] [place] [facility] [address] [id number] [place] [address] Feb, [facility] [place] [facility] [address] [id number] [place] [address] Feb, [facility] [place] [facility] [address] [id number] [place] [address] Feb, [facility] [place] [facility] [address] [facility] [id number] [place] [address] Feb, [facility] [place] [facility] [address] [id number] [place] [address] Feb, [facility] [place] [facility] [address] [id number] [place] [address] Jan, [facility] [place] [facility] [address] [id number] [place] [address] Jan, [facility] [place] [facility] [address] [id number] [place] [address] Jan, [facility] [place] [facility] [address] [id number] [place] [address] Jan, [facility] [place] [facility] [address] [id number] [place] [address] Jan, [facility] [place] [address] [id number] [place] [address] Dec, [facility] [address] [id number] [place] [address] Dec, [facility] [address] [id number] [place] [address] Nov, [facility] [address] [id number] [place] [address] Nov, [facility] [address] [id number] [place] [address] Oct, [facility] [address] [id number] [place] [address] Oct, [facility] [address] [id number] [place] [address] Oct, [facility] [address] [id number] [place] [address] Sep, [facility] [address] [id number] [place] [address] Sep, [facility] [address] [id number] [place] [address] Sep, [facility] [address] [id number] [place] [address] August, [facility] [address] [id number] [place] [address] August, [facility] [address] [id number] [place] [address] August, [facility] [address] [id number] [place] [address] August, [facility] [address] [id number] [place] [address] Jul, [facility] [address] [id number] [place] [address] Jun, [facility] [address] [id number] [place] [address] Jun, [facility] [address] [id number] [place] [address] Jun, [facility] [address] [id number] [place] [address] May, [facility] [address] [id number] [place] [address] May, [facility] [address] [id number] [place] [address] May, [facility] [address] [id number] [place] [address] May, [facility] [address] [id number] [place] [address] Apr, [facility] [address] [id number] [place] [address] Apr, [facility] [address] [id number] [place] [address] Apr, [facility] [address] [id number] [place] [address] Apr, [facility] [address] [id number] [place] [address] Apr, [facility] [address] [id number] [place] [address] Mar, [facility] [address] [id number] [place] [address] Mar, [facility] [address] [id number] [place] [address] Mar, [facility] [address] [id number] [place] [address] Mar, [facility] [address] [id number] [place] [address] Mar, [facility] [address] [id number] [place] [address] Mar, [facility] [address] [id number] [place] [address] Mar, [facility] [address] [id number] [place] [address] Feb, [facility] [address] [id number] [place] [address] Feb, [facility] [address] [id number] [place] [address] Feb, [facility] [address] [id number] [place] [address] Feb, [facility] [address] [id number] [place] [address] Feb, [facility] [address] [id number] [place] [address] Feb, [facility] [address] [id number] [place] [address] Feb, [facility] [address] [id number] [place] [address] Feb, [facility] [address] [id number] [place] [address] 24 Jan, 2012 [facility] [id number] [place] [address] 24 Jan, 2012 [facility] [address] [id number] [place] [address] Jan, [facility] [address] [id number] [place] [address] Jan, [facility] [address] [id number] [place] [address] 27 Dec, 2011 [facility] [address] [id number] [place] [address] 25 Dec, 2011 [facility] [address] [id number] [place] [address] 18 Dec, 2011 [facility] [address] [id number] [place] [address] 13 Dec, 2011 [facility] [address] [id number] [place] [address] 11 Dec, 2011 [facility] [facility] [address] [id number] [place] [address] Oct, [facility] [address] [id number] [place] [address] Oct, [facility] [address] [id number] [place] [address] Sep, [facility] [address] [id number] [place] [address] Sep, [facility] [address] [id number] [place] [address] August, [facility] [address] [id number] [place] [address] August, [facility] [address] [id number] [place] [address] Jul, [facility] [address] [id number] [place] [address] Jun, [facility] [address] [id number] [place] [address] Jun, [facility] [address] [id number] [place] [address] 23 Jun, 2011 [facility] [address] [id number] [place] [address] Jun, [facility] [address] [id number] [place] [address] Jun, [facility] [address] [id number] [place] [address] 24 May, 2011 [facility] [address] [id number] [place] [address] May, [facility] [address] [id number] [place] [address] 20 May, 2011 [facility] [address] [id number] [place] [address] 14 May, 2011 [facility] [address] [id number] [place] [address] 13 May, 2011 [facility] [address] [id number] [place] [address] 03 May, 2011 [facility] [address] [id number] [place] [address] 02 May, 2011 [facility] [address] [id number] [place] [address] May, [facility] [address] [id number] [place] [address] Apr, [facility] [address] [id number] [place] [address] Mar, [facility] [address] [id number] [place] [address] Mar, [facility] [address] [id number] [place] [address] Mar, [facility] [address] [id number] [place] [address] 15 Mar, 2011 [facility] [address] [id number] [place] [address] Mar, [facility] [address] [id number] [place] [address] Jan, [facility] [address] [id number] [place] [address] Jan, [facility] [id number] [place] [address] Jan, [facility] [address] [id number] [place] [address] August, [facility] [address] [id number] [place] [address] Mar, [facility] [address] [id number] [place] [address] Feb, [facility] [address] [id number] [place] [address] 14 Jan, 2010 [facility] [address] [id number] [place] [address] Jan, IMMUNIZATIONS No Known Immunizations SOCIAL HISTORY [...]
--- OUTSIDE RECORDS SUMMARY | 2019-08-20 16:02 | XMS REPORT ---
Author Author Talia HUDSON Organization [facility] Address [address] [place] [address] Care Team Providers Care Director Outcomes Name Role Phone KATIE HUDSON Unavailable PROBLEMS Type Condition ICD9-CM Code HNS60-QM Code Onset Dates Condition S tatus SNOMED Code Problem CAD (coronary artery disease) I25.10 Active 74765696 Problem Osteoarthritis of knees, bilateral M17.0 Active 717757229 Problem Essential hypertension I10 Active 38319187 Problem Diabetes E11.9 Active 43377932 Problem Arthritis M19.90 Active 3888552 Problem Morbid obesity E66.01 Active 06111 6002 Problem Hyperlipemia E78.5 Active 8336614 4 ALLERGIES No Information ENCOUNTERS Encounter Location Date Diagnosis [facility] [address] [address] Jun, [facility] [address] [address] Jun, [facility] [address] [address] Jun, Diabetes E11.9 ; Skin infection L08.9 an d Essential hypertension I10 [facility] [address] [address] 05 May, 2019 [facility] [address] [address] May, [facility] [address] [address] May, [facility] [address] [address] Apr, [facility] [address] [address] Mar, [place] [address] [address] Mar, [facility] [address] [address] Feb, [facility] [address] [address] Nov, [place] [address] [address] Nov, Diabetes E11.9 and Syncope, unspecified syncope type R55 [place] [address] [address] Nov, Osteoarthritis of knees, bilateral M17.0 [place] [address] [address] Oct, Diabetes E11.9 ; CAD (coronary artery di sease) I25.10 ; Essential hypertension I10 and Hyperlipemia E78.5 [place] [address] [address] Sep, [place] [address] [address] Jul, [place] [address] [address] Apr, [place] [address] [address] Mar, Pustular lesion L08.9 and Encounter for immunization Z23 [place] [address] [address] Feb, [place] [address] [address] Dec, [place] [address] [address] Dec, [place] [address] [address] Dec, Diabetes E11.9 ; Essential hypertension I10 ; Arthritis M19.90 ; Urinary frequency R35.0 ; Routine adult health maintenance Z00.00 and BMI 45.0- 49.9, adult Z68.42 [place] [address] [address] 18 Dec, 2017 [place] [address] [address] Dec, [place] [address] [address] Oct, [place] [address] [address] Sep, Diabetes E11.9 [place] [address] [address] Sep, Diabetes E11.9 ; Hyperlipemia E78.5 ; CA D (coronary artery disease) I25.10 ; Essential hypertension I10 and BMI 45.0-49.9, adult Z68.42 [place] [address] [address] Sep, [place] [address] [address] August, [place] [address] [address] Jan, Dysuria R30.0 [place] [address] [address] Jan, Dysuria R30.0 [place] [address] [address] Jan, Osteoarthritis of knees, bilateral M17.0 [place] [address] [address] Nov, Dysuria R30.0 [place] [address] [address] Oct, Blood in urine R31.9 ; Dysuria R30.0 ; P haryngeal dysphagia R13.13 ; Acute cystitis with hematuria N30.01 ; CAD (coronary artery disease) I25.10 and Diabetes E11.9 [place] [address] [address] Oct, [place] [address] [address] Sep, Arthritis M19.90 ; Blood in urine R31.9 ; Diabetes E11.9 ; Acute cystitis with hematuria N30.01 and Pharyngoesophageal dysphagia R13.14 [place] [address] [address] Sep, Osteoarthritis of knees, bilateral M17.0 [place] [address] [address] Sep, Osteoarthritis of knees, bilateral M17.0 [place] [address] [address] August, Arthritis M19.90 [place] [address] [address] Jul, Arthritis M19.90 [place] [address] [address] Jun, Arthritis M19.90 [place] [address] [address] Jun, [place] [address] [address] Jun, [place] [address] [address] May, Diabetes E11.9 ; Dysuria R30.0 and Arthr itis M19.90 [place] [address] [address] Apr, [place] [address] [address] Apr, Arthritis M19.90 [place] [address] [address] Mar, Arthritis M19.90 [facility] [id number] [place] [address] Feb, [facility] [address] [address] Jan, [facility] [address] [address] Dec, Diabetes E11.9 and Arthritis M19.90 [facility] [address] [address] Dec, [facility] [address] [address] Nov, Arthritis M19.90 [facility] [address] [place] [id number] [place] [address] Nov, [facility] [address] [address] Oct, Arthritis M19.90 [facility] [address] [address] Sep, Osteoarthritis of knees, bilateral M17.0 [facility] [address] [address] Sep, Osteoarthritis of knees, bilateral M17.0 [facility] [address] [address] August, Arthritis M19.90 [facility] [address] [address] August, [facility] [address] [address] Jul, Hyperlipemia E78.5 [place] [address] [address] Jul, Encounter for well woman exam Z01.419 ; Morbid obesity E66.01 ; Encounter for screening for malignant neoplasm of cervix Z12.4 and Encounter for screening mammogram for breast cancer Z12.31 [place] [address] [address] Jul, Arthritis M19.90 ; Diabetes E11.9 ; Bloo d in urine R31.9 and UTI (urinary tract infection) N39.0 [facility] [address] [address] Jul, [place] [address] [address] Jun, Arthritis M19.90 [place] [address] [address] May, Arthritis M19.90 [place] [address] [address] May, [place] [address] [address] Apr, [place] [address] [address] Apr, Arthritis M19.90 ; Diabetes E11.9 and Mo rbid obesity E66.01 [place] [address] [address] Apr, [place] [address] [address] Apr, Dyspareunia N94.1 [place] [address] [address] Apr, [place] [address] [address] Apr, [place] [address] [address] Apr, Osteoarthritis of knees, bilateral M17.0 [place] [address] [address] Apr, Diabetes E11.9 and CAD (coronary artery disease) I25.10 [place] [address] [address] Mar, [facility] [id number] [place] [address] Feb, [facility] [id number] [place] [address] Jan, [facility] [id number] [place] [address] Jan, [facility] [address] [id number] [place] [address] Jan, [facility] [id number] [place] [address] Jan, Osteoarthritis of knees, bilateral M17.0 [facility] [id number] [place] [address] Dec, [facility] [id number] [place] [address] Dec, [facility] [id number] [place] [address] Dec, [facility] [id number] [place] [address] Dec, Diabetes mellitus 250.00 and UTI (urinar y tract infection) 599.0 [facility] [id number] [place] [address] Dec, [facility] [id number] [place] [address] Nov, [facility] [id number] [place] [address] Oct, [facility] [id number] [place] [address] Oct, [facility] [id number] [place] [address] Oct, [facility] [id number] [place] [address] Oct, [facility] [address] [place] [id number] [place] [address] Oct, [facility] [place] [facility] [address] [facility] [id number] [facility] [place] [address] Sep, [facility] [place] [facility] [address] [id number] [place] [address] August, [facility] [place] [facility] [address] [id number] [place] [address] August, [facility] [place] [facility] [address] [id number] [place] [address] August, [facility] [place] [facility] [address] [id number] [place] [address] Jul, [facility] [place] [facility] [address] [id number] [place] [address] Jul, [facility] [place] [facility] [address] [id number] [place] [address] Jul, [facility] [place] [facility] [address] [id number] [place] [address] Jun, [facility] [place] [facility] [address] [id number] [place] [address] Jun, [facility] [place] [facility] [address] [id number] [place] [address] Jun, [facility] [place] [facility] [address] [id number] [place] [address] Jun, [facility] [place] [facility] [address] [id number] [place] [address] Jun, [facility] [place] [facility] [address] [id number] [place] [address] Jun, [facility] [place] [facility] [address] [id number] [place] [address] Jun, [facility] [place] [facility] [address] [id number] [place] [address] Jun, [facility] [place] [facility] [address] [id number] [place] [address] May, [facility] [place] [facility] [address] [facility] [id number] [facility] [place] [address] May, 2014 [facility] [place] [facility] [address] [id number] [facility] [place] [address] May, 2014 [facility] [place] [facility] [address] [facility] [id number] [facility] [place] [address] May, 2014 [facility] [place] [facility] [address] [id number] [place] [address] May, 2014 [facility] [place] [facility] [address] [facility] [id number] [facility] [place] [address] May, 2014 [facility] [place] [facility] [address] [id number] [place] [address] May, 2014 [facility] [place] [facility] [address] [id number] [place] [address] May, 2014 [facility] [place] [facility] [address] [id number] [place] [address] May, 2014 [facility] [place] [facility] [address] [id number] [place] [address] May, 2014 [facility] [place] [facility] [address] [id number] [place] [address] May, 2014 [facility] [place] [facility] [address] [id number] [place] [address] May, [facility] [place] [facility] [address] [id number] [place] [address] Apr, [facility] [place] [facility] [address] [id number] [place] [address] Apr, [facility] [place] [facility] [address] [id number] [place] [address] Mar, [facility] [place] [facility] [address] [id number] [place] [address] Mar, [facility] [place] [facility] [address] [id number] [place] [address] Mar, [facility] [place] [facility] [address] [id number] [place] [address] 17 Mar, 2014 [facility] [place] [facility] [address] [id number] [place] [address] 17 Mar, 2014 [facility] [place] [facility] [address] [id number] [place] [address] 16 Mar, 2014 [facility] [place] [facility] [address] [id number] [place] [address] Feb, [facility] [place] [facility] [address] [id number] [place] [address] Feb, [facility] [place] [facility] [address] [id number] [place] [address] Feb, [facility] [place] [facility] [address] [id number] [place] [address] Feb, [facility] [place] [facility] [address] [id number] [place] [address] Feb, [facility] [place] [facility] [address] [id number] [place] [address] Feb, [facility] [place] [facility] [address] [id number] [place] [address] Feb, [facility] [place] [facility] [address] [id number] [place] [address] Feb, [facility] [place] [facility] [address] [id number] [place] [address] Feb, [facility] [place] [facility] [address] [id number] [place] [address] Jan, [facility] [place] [facility] [address] [id number] [place] [address] Jan, [facility] [place] [facility] [id number] [place] [address] Jan, [facility] [place] [facility] [address] [id number] [place] [address] Jan, [facility] [place] [facility] [address] [id number] [place] [address] Jan, [facility] [place] [facility] [address] [facility] [id number] [place] [address] Jan, [facility] [place] [facility] [address] [facility] [id number] [place] [address] Jan, [facility] [place] [facility] [address] [facility] [id number] [place] [address] Jan, [facility] [place] [facility] [address] [id number] [place] [address] Jan, [facility] [place] [facility] [address] [facility] [id number] [place] [address] Jan, [facility] [place] [facility] [address] [id number] [place] [address] Dec, [facility] [place] [facility] [address] [id number] [place] [address] Dec, [facility] [place] [facility] [address] [id number] [place] [address] Dec, [facility] [place] [facility] [address] [id number] [place] [address] Dec, [facility] [place] [facility] [address] [id number] [place] [address] Nov, [facility] [place] [facility] [address] [id number] [place] [address] Nov, [facility] [place] [facility] [address] [id number] [place] [address] Nov, [facility] [place] [facility] [address] [id number] [place] [address] Nov, [facility] [place] [facility] [address] [facility] [id number] [place] [address] Nov, [facility] [place] [facility] [address] [id number] [place] [address] Nov, [facility] [place] [facility] [address] [id number] [place] [address] Nov, [facility] [place] [facility] [address] [id number] [place] [address] Nov, [facility] [place] [facility] [address] [id number] [facility] [place] [address] Nov, [facility] [place] [facility] [address] [id number] [place] [address] Oct, [facility] [place] [facility] [address] [facility] [id number] [facility] [place] [address] Oct, [facility] [place] [facility] [address] [id number] [facility] [place] [address] Sep, [facility] [place] [facility] [address] [id number] [place] [address] Sep, [facility] [place] [facility] [address] [id number] [place] [address] Sep, [facility] [place] [facility] [address] [facility] [id number] [facility] [address] Sep, [facility] [place] [facility] [address] [id number] [facility] [place] [address] Sep, [facility] [place] [facility] [address] [id number] [facility] [place] [address] Sep, [facility] [place] [facility] [address] [id number] [facility] [address] Sep, [facility] [place] [facility] [address] [facility] [id number] [place] [address] Sep, [facility] [place] [facility] [address] [id number] [place] [address] Sep, [facility] [place] [facility] [address] [id number] [facility] [place] [address] Sep, [facility] [place] [facility] [address] [id number] [place] [address] Sep, [facility] [place] [facility] [address] [facility] [id number] [place] [address] Sep, [facility] [place] [facility] [address] [facility] [id number] [place] [address] Sep, [facility] [place] [facility] [address] [id number] [place] [address] Sep, [facility] [place] [facility] [address] [id number] [place] [address] August, [facility] [place] [facility] [address] [id number] [place] [address] August, [facility] [place] [facility] [address] [id number] [place] [address] August, [facility] [place] [facility] [address] [id number] [place] [address] August, [facility] [place] [facility] [address] [id number] [place] [address] Jul, [facility] [place] [facility] [address] [id number] [place] [address] Jul, [facility] [place] [facility] [address] [id number] [place] [address] Jul, [facility] [place] [facility] [address] [id number] [place] [address] Jul, [facility] [place] [facility] [address] [id number] [place] [address] Jun, [facility] [place] [facility] [address] [id number] [place] [address] Jun, [facility] [place] [facility] [address] [id number] [place] [address] May, [facility] [place] [facility] [address] [id number] [place] [address] May, [facility] [place] [facility] [address] [id number] [place] [address] May, [facility] [place] [facility] [address] [id number] [place] [address] May, [facility] [place] [facility] [address] [id number] [place] [address] May, [facility] [place] [facility] [address] [id number] [place] [address] May, [facility] [place] [facility] [address] [facility] [id number] [place] [address] May, [facility] [place] [facility] [address] [id number] [place] [address] May, [facility] [place] [facility] [address] [id number] [place] [address] May, [facility] [place] [facility] [address] [id number] [place] [address] Apr, [facility] [place] [facility] [address] [facility] [id number] [place] [address] Apr, [facility] [place] [facility] [address] [id number] [place] [address] Apr, [facility] [place] [facility] [address] [id number] [place] [address] Apr, [facility] [address] [id number] [place] [address] Apr, [facility] [address] [id number] [place] [address] Mar, [facility] [address] [id number] [place] [address] Mar, [facility] [address] [id number] [place] [address] Feb, [facility] [address] [id number] [place] [address] Feb, [facility] [address] [id number] [place] [address] Feb, [facility] [address] [id number] [place] [address] Feb, [facility] [address] [id number] [place] [address] Feb, [facility] [address] [id number] [place] [address] Feb, [facility] [address] [id number] [place] [address] Feb, [facility] [address] [facility] [id number] [place] [address] Feb, [facility] [address] [id number] [place] [address] Feb, [facility] [address] [id number] [place] [address] Jan, [facility] [address] [id number] [place] [address] Jan, [facility] [address] [id number] [place] [address] Jan, [facility] [address] [id number] [place] [address] Jan, [facility] [address] [id number] [place] [address] Jan, [facility] [address] [id number] [place] [address] Dec, [facility] [address] [id number] [place] [address] Dec, [facility] [address] [id number] [place] [address] Nov, [facility] [address] [id number] [place] [address] Nov, [facility] [address] [id number] [place] [address] Oct, [facility] [address] [id number] [place] [address] Oct, [facility] [address] [id number] [place] [address] Oct, [facility] [address] [id number] [place] [address] Sep, [facility] [address] [id number] [place] [address] Sep, [facility] [address] [id number] [place] [address] Sep, [facility] [address] [id number] [place] [address] August, [facility] [address] [id number] [place] [address] August, [facility] [address] [id number] [place] [address] August, [facility] [address] [id number] [place] [address] August, [facility] [address] [id number] [place] [address] Jul, [facility] [address] [id number] [place] [address] Jun, [facility] [address] [id number] [place] [address] Jun, [facility] [address] [id number] [place] [address] Jun, [facility] [address] [id number] [place] [address] May, [facility] [address] [id number] [place] [address] May, [facility] [address] [id number] [place] [address] May, [facility] [address] [id number] [place] [address] May, [facility] [address] [id number] [place] [address] Apr, [facility] [address] [id number] [place] [address] Apr, [facility] [address] [id number] [place] [address] Apr, [facility] [address] [id number] [place] [address] Apr, [facility] [address] [id number] [place] [address] Apr, [facility] [address] [id number] [place] [address] Mar, [facility] [address] [id number] [place] [address] Mar, [facility] [address] [id number] [place] [address] Mar, [facility] [address] [id number] [place] [address] Mar, [facility] [address] [id number] [place] [address] Mar, [facility] [address] [id number] [place] [address] Mar, [facility] [address] [id number] [place] [address] Mar, [facility] [address] [id number] [place] [address] Feb, [facility] [address] [id number] [place] [address] Feb, [facility] [address] [id number] [place] [address] Feb, [facility] [address] [id number] [place] [address] Feb, [facility] [address] [id number] [place] [address] Feb, [facility] [address] [id number] [place] [address] Feb, [facility] [address] [id number] [place] [address] Feb, [facility] [address] [id number] [place] [address] Feb, [facility] [address] [id number] [place] [address] 24 Jan, 2012 [facility] [address] [id number] [place] [address] 24 Jan, 2012 [facility] [address] [id number] [place] [address] Jan, [facility] [address] [id number] [place] [address] Jan, [facility] [address] [id number] [place] [address] 27 Dec, 2011 [facility] [address] [id number] [place] [address] 25 Dec, 2011 [facility] [address] [id number] [place] [address] 18 Dec, 2011 [facility] [address] [id number] [place] [address] 13 Dec, 2011 [facility] [address] [id number] [place] [address] 11 Dec, 2011 [facility] [address] [id number] [place] [address] Oct, [facility] [address] [id number] [place] [address] Oct, [facility] [address] [id number] [place] [address] Sep, [facility] [address] [id number] [place] [address] Sep, [facility] [address] [id number] [place] [address] August, [facility] [address] [id number] [place] [address] August, [facility] [address] [id number] [place] [address] Jul, [facility] [address] [id number] [place] [address] Jun, [facility] [address] [id number] [place] [address] Jun, [facility] [address] [id number] [place] [address] 23 Jun, 2011 [facility] [address] [id number] [place] [address] Jun, [facility] [address] [id number] [place] [address] Jun, [facility] [address] [id number] [place] [address] 24 May, 2011 [facility] [address] [id number] [place] [address] May, [facility] [address] [id number] [place] [address] 20 May, 2011 [facility] [address] [id number] [place] [address] 14 May, 2011 [facility] [address] [id number] [place] [address] 13 May, 2011 [facility] [address] [id number] [place] [address] 03 May, 2011 [facility] [address] [id number] [place] [address] 02 May, 2011 [facility] [address] [id number] [place] [address] May, [facility] [address] [id number] [place] [address] Apr, [facility] [address] [id number] [place] [address] Mar, [facility] [address] [id number] [place] [address] Mar, [facility] [address] [id number] [place] [address] Mar, [facility] [address] [id number] [place] [address] 15 Mar, 2011 [facility] [address] [id number] [place] [address] Mar, [facility] [address] [id number] [place] [address] Jan, [facility] [address] [id number] [place] [address] Jan, [facility] [id number] [place] [address] Jan, [facility] [address] [id number] [place] [address] August, [facility] [address] [id number] [place] [address] Mar, [facility] [address] [id number] [place] [address] Feb, [facility] [address] [id number] [place] [address] 14 Jan, 2010 [facility] [address] [id number] [place] [address] Jan, IMMUNIZATIONS No Known Immunizations SOCIAL HISTORY [...]
--- OUTSIDE RECORDS SUMMARY | 2019-08-20 16:03 | XMS REPORT ---
Author Author Talia HUDSON Organization [facility] Address [address] [place] [address] Care Team Providers Care Customer Consulting Manager Name Role Phone KATIE HUDSON Unavailable PROBLEMS Type Condition ICD9-CM Code [id number] Code Onset Dates Condition S tatus SNOMED Code Problem CAD (coronary artery disease) I25.10 Active 98094278 Problem Osteoarthritis of knees, bilateral M17.0 Active 481048732 Problem Essential hypertension I10 Active 37529940 Problem Diabetes E11.9 Active 09267733 Problem Arthritis M19.90 Active 8006554 Problem Morbid obesity E66.01 Active 63150 6002 Problem Hyperlipemia E78.5 Active 5481235 4 ALLERGIES No Information ENCOUNTERS Encounter Location Date Diagnosis [facility] [address] [address] Jun, [facility] [address] [address] May, [facility] [address] [address] May, [facility] [address] [address] May, [facility] [address] [address] Apr, [facility] [address] [address] Mar, [facility] [address] [address] Mar, [facility] [address] [address] Feb, [facility] [address] [address] Nov, [place] [address] [address] Nov, Diabetes E11.9 and Syncope, unspecified syncope type R55 [place] [address] [address] 15 Nov, 2018 Osteoarthritis of knees, bilateral M17.0 [place] [address] [address] Oct, Diabetes E11.9 ; CAD (coronary artery di sease) I25.10 ; Essential hypertension I10 and Hyperlipemia E78.5 [place] [address] [address] Sep, [place] [address] [address] Jul, [place] [address] [address] Apr, [place] [address] [address] Mar, Pustular lesion L08.9 and Encounter for immunization Z23 [place] [address] [address] Feb, [place] [address] [address] Dec, [place] [address] [address] Dec, [place] [address] [address] Dec, Diabetes E11.9 ; Essential hypertension I10 ; Arthritis M19.90 ; Urinary frequency R35.0 ; Routine adult health maintenance Z00.00 and BMI 45.0- 49.9, adult Z68.42 [place] [address] [address] 18 Dec, 2017 [place] [address] [address] Dec, [place] [address] [address] Oct, [place] [address] [address] Sep, Diabetes E11.9 [place] [address] [address] Sep, Diabetes E11.9 ; Hyperlipemia E78.5 ; CA D (coronary artery disease) I25.10 ; Essential hypertension I10 and BMI 45.0-49.9, adult Z68.42 [place] [address] [address] Sep, [place] [address] [address] August, [place] [address] [address] Jan, Dysuria R30.0 [place] [address] [address] Jan, Dysuria R30.0 [place] [address] [address] Jan, Osteoarthritis of knees, bilateral M17.0 [place] [address] [address] Nov, Dysuria R30.0 [place] [address] [address] Oct, Blood in urine R31.9 ; Dysuria R30.0 ; P haryngeal dysphagia R13.13 ; Acute cystitis with hematuria N30.01 ; CAD (coronary artery disease) I25.10 and Diabetes E11.9 [facility] [address] [address] Oct, [place] [address] [address] Sep, Arthritis M19.90 ; Blood in urine R31.9 ; Diabetes E11.9 ; Acute cystitis with hematuria N30.01 and Pharyngoesophageal dysphagia R13.14 [facility] [address] [address] Sep, Osteoarthritis of knees, bilateral M17.0 [facility] [address] [address] Sep, Osteoarthritis of knees, bilateral M17.0 [facility] [address] [address] August, Arthritis M19.90 [facility] [address] [address] Jul, Arthritis M19.90 [facility] [address] [address] Jun, Arthritis M19.90 [facility] [address] [address] Jun, [facility] [address] [address] Jun, [facility] [address] [address] May, Diabetes E11.9 ; Dysuria R30.0 and Arthr itis M19.90 [facility] [address] [address] Apr, [facility] [address] [address] Apr, Arthritis M19.90 [facility] [address] [address] Mar, Arthritis M19.90 [facility] [address] [address] Feb, [facility] [address] [address] Jan, [place] [address] [place] [id number] [place] [address] 29 Dec, 2015 Diabetes E11.9 and Arthritis M19.90 [facility] [address] [address] Dec, [facility] [address] [address] Nov, Arthritis M19.90 [facility] [address] [address] Nov, [facility] [address] [address] Oct, Arthritis M19.90 [place] [address] [address] Sep, Osteoarthritis of knees, bilateral M17.0 [place] [address] [address] Sep, Osteoarthritis of knees, bilateral M17.0 [place] [address] [address] August, Arthritis M19.90 [place] [address] [address] August, [place] [address] [address] Jul, Hyperlipemia E78.5 [place] [address] [address] Jul, Encounter for well woman exam Z01.419 ; Morbid obesity E66.01 ; Encounter for screening for malignant neoplasm of cervix Z12.4 and Encounter for screening mammogram for breast cancer Z12.31 [place] [address] [address] Jul, Arthritis M19.90 ; Diabetes E11.9 ; Bloo d in urine R31.9 and UTI (urinary tract infection) N39.0 [place] [address] [address] Jul, [facility] [address] [place] [id number] [place] [address] Jun, Arthritis M19.90 [facility] [address] [address] May, Arthritis M19.90 [facility] [address] [address] May, [facility] [address] [address] Apr, [facility] [address] [address] Apr, Arthritis M19.90 ; Diabetes E11.9 and Mo rbid obesity E66.01 [facility] [address] [address] Apr, [facility] [address] [address] Apr, Dyspareunia N94.1 [facility] [address] [address] Apr, [facility] [address] [address] Apr, [facility] [address] [address] Apr, Osteoarthritis of knees, bilateral M17.0 [facility] [address] [address] Apr, Diabetes E11.9 and CAD (coronary artery disease) I25.10 [facility] [address] [address] 08 Mar, 2015 [facility] [address] [address] Feb, [facility] [address] [address] 30 Jan, 2015 [facility] [address] [place] [id number] [place] [address] Jan, [facility] [address] [id number] [place] [address] Jan, [facility] [address] [place] [address] [id number] [place] [address] Jan, Osteoarthritis of knees, bilateral M17.0 [facility] [address] [place] [id number] [place] [address] 30 Dec, 2014 [facility] [address] [id number] [place] [address] Dec, [facility] [address] [address] Dec, [facility] [address] [place] [address] [id number] [place] [address] Dec, Diabetes mellitus 250.00 and UTI (urinar y tract infection) 599.0 [facility] [address] [place] [id number] [place] [address] Dec, [facility] [address] [place] [address] [id number] [place] [address] Nov, [facility] [address] [place] [address] [id number] [place] [address] Oct, [facility] [address] [place] [id number] [place] [address] Oct, [facility] [address] [place] [id number] [place] [address] Oct, [facility] [address] [place] [address] [id number] [place] [address] Oct, [facility] [address] [place] [address] [id number] [place] [address] Oct, [facility] [address] [place] [id number] [place] [address] Sep, [facility] [address] [place] [id number] [place] [address] August, [facility] [place] [facility] [address] [facility] [id number] [place] [address] August, [facility] [place] [facility] [address] [id number] [place] [address] August, [facility] [place] [facility] [address] [id number] [place] [address] Jul, [facility] [place] [facility] [address] [id number] [place] [address] Jul, [facility] [place] [facility] [address] [id number] [place] [address] Jul, [facility] [place] [facility] [address] [id number] [place] [address] Jun, [facility] [place] [facility] [address] [id number] [place] [address] Jun, [facility] [place] [facility] [address] [id number] [place] [address] Jun, [facility] [place] [facility] [address] [id number] [place] [address] Jun, [facility] [place] [facility] [address] [id number] [place] [address] Jun, [facility] [place] [facility] [address] [id number] [place] [address] Jun, [facility] [place] [facility] [address] [id number] [place] [address] Jun, [facility] [place] [facility] [address] [id number] [place] [address] Jun, [facility] [place] [facility] [address] [id number] [place] [address] May, [facility] [place] [facility] [address] [id number] [place] [address] May, [facility] [place] [facility] [address] [id number] [place] [address] May, [facility] [place] [facility] [address] [id number] [place] [address] May, 2014 [facility] [place] [facility] [address] [facility] [id number] [place] [address] May, [facility] [place] [facility] [address] [id number] [place] [address] May, 2014 [facility] [place] [facility] [address] [id number] [place] [address] May, 2014 [facility] [place] [facility] [address] [id number] [place] [address] May, 2014 [facility] [place] [facility] [address] [id number] [place] [address] May, [facility] [place] [facility] [address] [id number] [place] [address] May, 2014 [facility] [place] [facility] [address] [id number] [place] [address] May, [facility] [place] [facility] [address] [id number] [place] [address] May, [facility] [place] [facility] [address] [id number] [place] [address] Apr, [facility] [place] [facility] [address] [id number] [place] [address] Apr, [facility] [place] [facility] [address] [id number] [place] [address] Mar, [facility] [place] [facility] [address] [id number] [place] [address] Mar, [facility] [place] [facility] [address] [id number] [place] [address] Mar, [facility] [place] [facility] [address] [id number] [place] [address] Mar, [facility] [place] [facility] [address] [id number] [place] [address] Mar, [facility] [place] [facility] [address] [id number] [place] [address] Mar, [facility] [place] [facility] [address] [id number] [place] [address] Feb, [facility] [place] [facility] [address] [id number] [place] [address] Feb, [facility] [place] [facility] [address] [id number] [place] [address] Feb, [facility] [place] [facility] [address] [id number] [place] [address] Feb, [facility] [place] [facility] [address] [id number] [place] [address] Feb, [facility] [place] [facility] [address] [id number] [place] [address] Feb, [facility] [place] [facility] [address] [id number] [place] [address] Feb, [facility] [place] [facility] [address] [place] [id number] [place] [address] Feb, [facility] [place] [facility] [address] [id number] [place] [address] Feb, [facility] [place] [facility] [address] [id number] [place] [address] Jan, [facility] [place] [facility] [address] [id number] [place] [address] Jan, [facility] [place] [facility] [address] [id number] [place] [address] Jan, [facility] [place] [facility] [address] [id number] [place] [address] Jan, [facility] [place] [facility] [address] [id number] [place] [address] Jan, [facility] [place] [facility] [address] [id number] [place] [address] Jan, [facility] [place] [facility] [address] [id number] [place] [address] Jan, [facility] [place] [facility] [address] [id number] [place] [address] Jan, [facility] [place] [facility] [address] [id number] [facility] [address] Jan, [facility] [place] [facility] [address] [facility] [id number] [place] [address] Jan, [facility] [place] [facility] [address] [id number] [facility] [place] [address] Dec, [facility] [place] [facility] [address] [facility] [id number] [place] [address] Dec, [facility] [place] [facility] [address] [facility] [id number] [place] [address] Dec, [facility] [place] [facility] [address] [facility] [id number] [place] [address] Dec, [facility] [place] [facility] [address] [id number] [facility] [place] [address] Nov, [facility] [place] [facility] [address] [id number] [facility] [place] [address] Nov, [facility] [place] [facility] [address] [id number] [facility] [place] [address] Nov, [facility] [place] [facility] [address] [id number] [facility] [place] [address] Nov, [facility] [place] [facility] [address] [id number] [place] [address] Nov, [facility] [place] [facility] [address] [id number] [place] [address] Nov, [facility] [place] [facility] [address] [facility] [id number] [facility] [place] [address] Nov, [facility] [place] [facility] [address] [id number] [place] [address] Nov, [facility] [place] [facility] [address] [id number] [place] [address] Nov, [facility] [place] [facility] [address] [id number] [facility] [place] [address] Oct, [facility] [place] [facility] [address] [id number] [facility] [place] [address] Oct, [facility] [place] [facility] [address] [id number] [facility] [place] [address] Sep, [facility] [place] [facility] [address] [facility] [id number] [facility] [place] [address] Sep, [facility] [place] [facility] [address] [facility] [id number] [place] [address] Sep, [facility] [place] [facility] [address] [facility] [id number] [facility] [place] [address] Sep, [facility] [place] [facility] [address] [id number] [place] [address] Sep, [facility] [place] [facility] [address] [facility] [id number] [place] [address] Sep, [facility] [place] [facility] [address] [id number] [place] [address] Sep, [facility] [place] [facility] [address] [id number] [place] [address] Sep, [facility] [place] [facility] [address] [id number] [place] [address] Sep, [facility] [place] [facility] [address] [facility] [id number] [place] [address] Sep, [facility] [place] [facility] [address] [id number] [place] [address] Sep, [facility] [place] [facility] [address] [id number] [place] [address] Sep, [facility] [place] [facility] [address] [id number] [place] [address] Sep, [facility] [place] [facility] [address] [id number] [place] [address] Sep, [facility] [place] [facility] [address] [facility] [id number] [place] [address] August, [facility] [place] [facility] [address] [id number] [place] [address] August, [facility] [place] [facility] [address] [id number] [place] [address] August, [facility] [place] [facility] [address] [id number] [place] [address] August, [facility] [place] [facility] [address] [id number] [place] [address] Jul, [facility] [place] [facility] [address] [id number] [place] [address] Jul, [facility] [place] [facility] [address] [id number] [place] [address] Jul, [facility] [place] [facility] [address] [id number] [place] [address] Jul, [facility] [place] [facility] [address] [id number] [place] [address] Jun, [facility] [place] [facility] [address] [id number] [place] [address] Jun, [facility] [place] [facility] [address] [id number] [place] [address] May, [facility] [place] [facility] [address] [id number] [place] [address] May, [facility] [place] [facility] [address] [id number] [place] [address] May, [facility] [place] [facility] [address] [id number] [place] [address] May, [facility] [place] [facility] [address] [id number] [place] [address] May, [facility] [place] [facility] [address] [id number] [place] [address] May, [facility] [place] [facility] [address] [id number] [place] [address] May, [facility] [place] [facility] [address] [id number] [place] [address] May, [facility] [place] [facility] [address] [id number] [place] [address] May, [facility] [place] [facility] [address] [id number] [place] [address] Apr, [facility] [place] [facility] [address] [id number] [place] [address] Apr, [facility] [place] [facility] [address] [id number] [place] [address] Apr, [facility] [place] [facility] [address] [id number] [place] [address] Apr, [facility] [place] [facility] [address] [id number] [place] [address] Apr, [facility] [place] [facility] [address] [id number] [place] [address] Mar, [facility] [place] [facility] [address] [id number] [place] [address] Mar, [facility] [place] [facility] [address] [id number] [place] [address] Feb, [facility] [place] [facility] [address] [id number] [place] [address] Feb, [facility] [place] [facility] [address] [id number] [place] [address] Feb, [facility] [place] [facility] [address] [id number] [place] [address] Feb, [facility] [place] [facility] [address] [id number] [place] [address] Feb, [facility] [place] [facility] [address] [id number] [place] [address] Feb, [facility] [place] [facility] [address] [id number] [place] [address] Feb, [facility] [place] [facility] [address] [id number] [place] [address] Feb, [facility] [place] [facility] [address] [id number] [place] [address] Feb, [facility] [place] [facility] [address] [facility] [id number] [place] [address] Jan, [facility] [place] [facility] [address] [id number] [place] [address] Jan, [facility] [place] [facility] [address] [id number] [place] [address] Jan, [facility] [address] [id number] [place] [address] Jan, [facility] [address] [facility] [id number] [place] [address] Jan, [facility] [address] [id number] [place] [address] Dec, [facility] [address] [id number] [place] [address] Dec, [facility] [address] [id number] [place] [address] Nov, [facility] [address] [id number] [place] [address] Nov, [facility] [address] [id number] [place] [address] Oct, [facility] [address] [id number] [place] [address] Oct, [facility] [address] [id number] [place] [address] Oct, [facility] [address] [id number] [place] [address] Sep, [facility] [address] [id number] [place] [address] Sep, [facility] [address] [id number] [place] [address] Sep, [facility] [address] [id number] [place] [address] August, [facility] [address] [id number] [place] [address] August, [facility] [address] [id number] [place] [address] August, [facility] [address] [id number] [place] [address] August, [facility] [address] [id number] [place] [address] Jul, [facility] [address] [id number] [place] [address] Jun, [facility] [address] [id number] [place] [address] Jun, [facility] [address] [id number] [place] [address] Jun, [facility] [address] [id number] [place] [address] May, [facility] [address] [id number] [place] [address] May, [facility] [address] [id number] [place] [address] May, [facility] [address] [id number] [place] [address] May, [facility] [address] [id number] [place] [address] Apr, [facility] [address] [id number] [place] [address] Apr, [facility] [address] [id number] [place] [address] Apr, [facility] [address] [id number] [place] [address] Apr, [facility] [address] [id number] [place] [address] Apr, [facility] [address] [id number] [place] [address] Mar, [facility] [address] [id number] [place] [address] Mar, [facility] [address] [id number] [place] [address] Mar, [facility] [address] [id number] [place] [address] Mar, [facility] [address] [id number] [place] [address] Mar, [facility] [address] [id number] [place] [address] Mar, [facility] [address] [id number] [place] [address] Mar, [facility] [address] [id number] [place] [address] Feb, [facility] [id number] [place] [address] Feb, [facility] [address] [id number] [place] [address] Feb, [facility] [address] [id number] [place] [address] Feb, [facility] [id number] [place] [address] Feb, [facility] [address] [id number] [place] [address] Feb, [facility] [address] [id number] [place] [address] Feb, [facility] [address] [id number] [place] [address] Feb, [facility] [id number] [place] [address] Jan, [facility] [address] [id number] [place] [address] Jan, [facility] [address] [id number] [place] [address] Jan, [facility] [address] [id number] [place] [address] Jan, [facility] [address] [id number] [place] [address] 27 Dec, 2011 [facility] [address] [id number] [place] [address] 25 Dec, 2011 [facility] [address] [id number] [place] [address] 18 Dec, 2011 [facility] [address] [facility] [id number] [place] [address] 13 Dec, 2011 [facility] [facility] [address] [id number] [place] [address] 11 Dec, 2011 [facility] [address] [id number] [place] [address] Oct, [facility] [address] [id number] [place] [address] Oct, [facility] [address] [id number] [place] [address] Sep, [facility] [address] [id number] [place] [address] Sep, [facility] [address] [id number] [place] [address] August, [facility] [address] [id number] [place] [address] August, [facility] [address] [id number] [place] [address] Jul, [facility] [address] [id number] [place] [address] Jun, [facility] [address] [id number] [place] [address] Jun, [facility] [address] [id number] [place] [address] Jun, [facility] [address] [id number] [place] [address] Jun, [facility] [address] [id number] [place] [address] Jun, [facility] [address] [id number] [place] [address] 24 May, 2011 [facility] [address] [id number] [place] [address] May, [facility] [address] [id number] [place] [address] May, [facility] [address] [id number] [place] [address] 14 May, 2011 [facility] [address] [id number] [place] [address] May, [facility] [address] [id number] [place] [address] May, [facility] [address] [id number] [place] [address] May, [facility] [address] [id number] [place] [address] May, [facility] [address] [id number] [place] [address] Apr, [facility] [address] [id number] [place] [address] Mar, [facility] [address] [id number] [place] [address] Mar, [facility] [address] [id number] [place] [address] Mar, [facility] [address] [id number] [place] [address] Mar, [facility] [address] [id number] [place] [address] Mar, [facility] [address] [id number] [place] [address] Jan, [facility] [address] [id number] [place] [address] Jan, [facility] [id number] [place] [address] Jan, [facility] [address] [id number] [place] [address] August, [facility] [id number] [place] [address] Mar, [facility] [address] [id number] [place] [address] Feb, [facility] [id number] [place] [address] 14 Jan, 2010 [facility] [address] [id number] [place] [address] 11 Jan, 2010 IMMUNIZATIONS No Known Immunizations [...]
--- OUTSIDE RECORDS SUMMARY | 2019-08-20 16:03 | XMS REPORT ---
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 Name Role Phone Migration, Doctor Unavailable Unavailable PROBLEMS Type Condition ICD9-CM Code PIO21-FS Code Onset Dates Condition S tatus SNOMED Code Problem CAD (coronary artery disease) I25.10 Active 41488968 Problem Osteoarthritis of knees, bilateral M17.0 Active 763214945 Problem Essential hypertension I10 Active 40163636 Problem Diabetes E11.9 Active 38567909 Problem Arthritis M19.90 Active 5144572 Problem Morbid obesity E66.01 Active 35832 6002 Problem Hyperlipemia E78.5 Active 1496921 4 ALLERGIES No Information ENCOUNTERS Encounter Location Date Diagnosis [facility] [address] [address] Jun, [facility] [address] [address] May, [facility] [address] [address] May, [facility] [address] [address] May, [facility] [address] [address] Apr, [facility] [address] [address] Mar, [facility] [address] [address] Mar, [facility] [address] [address] Feb, [facility] [address] [address] Nov, [facility] [address] [address] Nov, Diabetes E11.9 and Syncope, unspecified syncope type R55 [place] [address] [address] Nov, Osteoarthritis of knees, bilateral M17.0 [place] [address] [address] Oct, Diabetes E11.9 ; CAD (coronary artery di sease) I25.10 ; Essential hypertension I10 and Hyperlipemia E78.5 [place] [address] [address] Sep, [place] [address] [address] Jul, [place] [address] [address] Apr, [place] [address] [address] Mar, Pustular lesion L08.9 and Encounter for immunization Z23 [place] [address] [address] Feb, [place] [address] [address] Dec, [place] [address] [address] Dec, [place] [address] [address] Dec, Diabetes E11.9 ; Essential hypertension I10 ; Arthritis M19.90 ; Urinary frequency R35.0 ; Routine adult health maintenance Z00.00 and BMI 45.0- 49.9, adult Z68.42 [place] [address] [address] 18 Dec, 2017 [place] [address] [address] Dec, [place] [address] [address] Oct, [place] [address] [address] Sep, Diabetes E11.9 [place] [address] [address] Sep, Diabetes E11.9 ; Hyperlipemia E78.5 ; CA D (coronary artery disease) I25.10 ; Essential hypertension I10 and BMI 45.0-49.9, adult Z68.42 [place] [address] [address] Sep, [place] [address] [address] August, [place] [address] [address] Jan, Dysuria R30.0 [place] [address] [address] Jan, Dysuria R30.0 [place] [address] [address] Jan, Osteoarthritis of knees, bilateral M17.0 [place] [address] [address] Nov, Dysuria R30.0 [place] [address] [address] Oct, Blood in urine R31.9 ; Dysuria R30.0 ; P haryngeal dysphagia R13.13 ; Acute cystitis with hematuria N30.01 ; CAD (coronary artery disease) I25.10 and Diabetes E11.9 [place] [address] [address] Oct, [place] [address] [address] Sep, Arthritis M19.90 ; Blood in urine R31.9 ; Diabetes E11.9 ; Acute cystitis with hematuria N30.01 and Pharyngoesophageal dysphagia R13.14 [facility] [address] [address] 29 Sep, 2016 Osteoarthritis of knees, bilateral M17.0 [facility] [address] [address] 19 Sep, 2016 Osteoarthritis of knees, bilateral M17.0 [facility] [address] [address] August, Arthritis M19.90 [facility] [address] [address] Jul, Arthritis M19.90 [facility] [address] [address] Jun, Arthritis M19.90 [facility] [address] [address] Jun, [facility] [address] [address] Jun, [facility] [address] [address] May, Diabetes E11.9 ; Dysuria R30.0 and Arthr itis M19.90 [facility] [address] [address] Apr, [facility] [address] [address] Apr, Arthritis M19.90 [facility] [address] [address] Mar, Arthritis M19.90 [facility] [address] [address] Feb, [facility] [address] [address] Jan, [facility] [address] [address] Dec, Diabetes E11.9 and Arthritis M19.90 [facility] [address] [id number] [place] [address] Dec, [facility] [address] [address] [id number] [place] [address] Nov, Arthritis M19.90 [facility] [id number] [place] [address] Nov, [facility] [address] [address] Oct, Arthritis M19.90 [facility] [address] [id number] [place] [address] Sep, Osteoarthritis of knees, bilateral M17.0 [facility] [address] [address] Sep, Osteoarthritis of knees, bilateral M17.0 [facility] [address] [address] August, Arthritis M19.90 [facility] [address] [address] August, [facility] [address] [address] Jul, Hyperlipemia E78.5 [place] [address] [address] Jul, Encounter for well woman exam Z01.419 ; Morbid obesity E66.01 ; Encounter for screening for malignant neoplasm of cervix Z12.4 and Encounter for screening mammogram for breast cancer Z12.31 [facility] [address] [address] Jul, Arthritis M19.90 ; Diabetes E11.9 ; Bloo d in urine R31.9 and UTI (urinary tract infection) N39.0 [facility] [id number] [place] [address] Jul, [facility] [address] [address] Jun, Arthritis M19.90 [facility] [address] [address] May, Arthritis M19.90 [facility] [address] [address] May, [facility] [address] [address] Apr, [facility] [address] [address] Apr, Arthritis M19.90 ; Diabetes E11.9 and Mo rbid obesity E66.01 [facility] [address] [address] Apr, [facility] [address] [address] Apr, Dyspareunia N94.1 [facility] [address] [address] Apr, [facility] [address] [address] Apr, [facility] [address] [address] Apr, Osteoarthritis of knees, bilateral M17.0 [facility] [address] [address] Apr, Diabetes E11.9 and CAD (coronary artery disease) I25.10 [facility] [address] [address] 08 Mar, 2015 [facility] [address] [address] 10 Feb, 2015 [facility] [address] [address] 30 Jan, 2015 [facility] [address] [address] 15 Jan, 2015 [place] [id number] [place] [address] Jan, [facility] [id number] [place] [address] Jan, Osteoarthritis of knees, bilateral M17.0 [facility] [id number] [place] [address] 30 Dec, 2014 [facility] [id number] [place] [address] Dec, [facility] [id number] [place] [address] Dec, [facility] [id number] [place] [address] Dec, Diabetes mellitus 250.00 and UTI (urinar y tract infection) 599.0 [facility] [id number] [place] [address] Dec, [facility] [id number] [place] [address] Nov, [facility] [id number] [place] [address] Oct, [facility] [id number] [place] [address] Oct, [facility] [id number] [place] [address] Oct, [facility] [id number] [place] [address] Oct, [facility] [id number] [place] [address] Oct, [facility] [id number] [place] [address] Sep, [facility] [address] [id number] [place] [address] August, [facility] [id number] [place] [address] August, [facility] [place] [facility] [address] [id number] [place] [address] August, [facility] [place] [facility] [address] [id number] [place] [address] 29 Jul, 2014 [facility] [place] [facility] [address] [id number] [place] [address] 14 Jul, 2014 [facility] [place] [facility] [address] [id number] [place] [address] Jul, [facility] [place] [facility] [address] [facility] [id number] [place] [address] Jun, [facility] [place] [facility] [address] [id number] [place] [address] Jun, [facility] [place] [facility] [address] [id number] [place] [address] Jun, [facility] [place] [facility] [address] [id number] [place] [address] Jun, [facility] [place] [facility] [address] [id number] [place] [address] Jun, [facility] [place] [facility] [address] [id number] [place] [address] Jun, [facility] [place] [facility] [address] [id number] [place] [address] Jun, [facility] [place] [facility] [address] [id number] [place] [address] Jun, [facility] [place] [facility] [address] [id number] [place] [address] May, [facility] [place] [facility] [address] [id number] [place] [address] May, [facility] [place] [facility] [address] [id number] [place] [address] May, [facility] [place] [facility] [address] [id number] [place] [address] May, [facility] [place] [facility] [address] [id number] [place] [address] May, 2014 [facility] [place] [facility] [address] [id number] [place] [address] May, 2014 [facility] [place] [facility] [address] [id number] [place] [address] May, 2014 [facility] [place] [facility] [address] [id number] [place] [address] May, 2014 [facility] [place] [facility] [address] [id number] [place] [address] May, 2014 [facility] [place] [facility] [address] [id number] [place] [address] May, 2014 [facility] [place] [facility] [address] [id number] [place] [address] May, 2014 [facility] [place] [facility] [id number] [place] [address] May, 2014 [facility] [place] [facility] [id number] [place] [address] Apr, [facility] [place] [facility] [address] [id number] [place] [address] Apr, [facility] [place] [facility] [address] [id number] [place] [address] Mar, [facility] [place] [facility] [id number] [place] [address] Mar, [facility] [place] [facility] [id number] [place] [address] Mar, [facility] [place] [facility] [address] [id number] [place] [address] Mar, [facility] [place] [facility] [address] [id number] [place] [address] Mar, [facility] [place] [facility] [address] [id number] [place] [address] Mar, [facility] [place] [facility] [address] [id number] [place] [address] Feb, [facility] [place] [facility] [address] [id number] [place] [address] Feb, [facility] [place] [facility] [address] [id number] [place] [address] Feb, [facility] [place] [facility] [address] [id number] [place] [address] Feb, [facility] [place] [facility] [address] [id number] [place] [address] Feb, [facility] [place] [facility] [address] [facility] [id number] [place] [address] Feb, [facility] [place] [facility] [address] [id number] [place] [address] Feb, [facility] [place] [facility] [address] [id number] [place] [address] Feb, [facility] [place] [facility] [address] [id number] [place] [address] Feb, [facility] [place] [facility] [address] [id number] [place] [address] Jan, [facility] [place] [facility] [address] [id number] [place] [address] Jan, [facility] [place] [facility] [address] [id number] [place] [address] Jan, [facility] [place] [facility] [address] [id number] [place] [address] Jan, [facility] [place] [facility] [address] [id number] [place] [address] Jan, [facility] [place] [facility] [address] [id number] [place] [address] Jan, [facility] [place] [facility] [address] [id number] [place] [address] Jan, [facility] [place] [facility] [address] [id number] [place] [address] Jan, [facility] [place] [facility] [address] [id number] [place] [address] Jan, [facility] [place] [facility] [address] [id number] [place] [address] Jan, [facility] [place] [facility] [address] [facility] [id number] [place] [address] Dec, [facility] [place] [facility] [address] [facility] [id number] [place] [address] Dec, [facility] [place] [facility] [address] [facility] [id number] [place] [address] Dec, [facility] [place] [facility] [address] [facility] [id number] [place] [address] Dec, [facility] [place] [facility] [address] [facility] [id number] [place] [address] Nov, [facility] [place] [facility] [address] [id number] [place] [address] Nov, [facility] [place] [facility] [address] [id number] [place] [address] Nov, [facility] [place] [facility] [address] [facility] [id number] [place] [address] Nov, [facility] [place] [facility] [address] [id number] [place] [address] Nov, [facility] [place] [facility] [address] [id number] [place] [address] Nov, [facility] [place] [facility] [address] [id number] [place] [address] Nov, [facility] [place] [facility] [address] [id number] [place] [address] Nov, [facility] [place] [facility] [address] [id number] [place] [address] Nov, [facility] [place] [facility] [address] [facility] [id number] [place] [address] Oct, [facility] [place] [facility] [address] [id number] [place] [address] Oct, [facility] [place] [facility] [address] [id number] [place] [address] Sep, [facility] [place] [facility] [address] [facility] [id number] [place] [address] Sep, [facility] [place] [facility] [address] [facility] [id number] [place] [address] Sep, [facility] [place] [facility] [address] [id number] [place] [address] Sep, [facility] [place] [facility] [address] [facility] [id number] [place] [address] Sep, [facility] [place] [facility] [address] [facility] [id number] [place] [address] Sep, [facility] [place] [facility] [address] [id number] [place] [address] Sep, [facility] [place] [facility] [address] [id number] [place] [address] Sep, [facility] [place] [facility] [address] [id number] [place] [address] Sep, [facility] [place] [facility] [address] [id number] [place] [address] Sep, [facility] [place] [facility] [address] [id number] [place] [address] Sep, [facility] [place] [facility] [address] [id number] [place] [address] Sep, [facility] [place] [facility] [address] [id number] [place] [address] Sep, [facility] [place] [facility] [address] [facility] [id number] [place] [address] Sep, [facility] [place] [facility] [address] [id number] [place] [address] August, [facility] [place] [facility] [address] [id number] [place] [address] August, [facility] [place] [facility] [address] [id number] [place] [address] August, [facility] [place] [facility] [address] [facility] [id number] [place] [address] August, [facility] [place] [facility] [address] [id number] [place] [address] Jul, [facility] [place] [facility] [address] [id number] [place] [address] Jul, [facility] [place] [facility] [address] [id number] [place] [address] Jul, [facility] [place] [facility] [address] [facility] [id number] [place] [address] Jul, [facility] [place] [facility] [address] [id number] [place] [address] Jun, [facility] [place] [facility] [address] [id number] [place] [address] Jun, [facility] [place] [facility] [address] [id number] [place] [address] May, [facility] [place] [facility] [address] [id number] [place] [address] May, [facility] [place] [facility] [address] [id number] [place] [address] May, [facility] [place] [facility] [address] [id number] [place] [address] May, [facility] [place] [facility] [address] [id number] [place] [address] May, [facility] [place] [facility] [address] [id number] [place] [address] May, [facility] [place] [facility] [address] [id number] [place] [address] May, [facility] [place] [facility] [address] [id number] [place] [address] May, [facility] [place] [facility] [address] [id number] [place] [address] May, [facility] [place] [facility] [address] [id number] [place] [address] Apr, [facility] [place] [facility] [address] [id number] [place] [address] Apr, [facility] [place] [facility] [address] [id number] [place] [address] Apr, [facility] [place] [facility] [address] [id number] [place] [address] Apr, [facility] [place] [facility] [address] [id number] [place] [address] Apr, [facility] [place] [facility] [address] [id number] [place] [address] Mar, [facility] [place] [facility] [address] [id number] [place] [address] Mar, [facility] [place] [facility] [address] [id number] [place] [address] Feb, [facility] [place] [facility] [address] [id number] [place] [address] Feb, [facility] [place] [facility] [address] [id number] [place] [address] Feb, [facility] [place] [facility] [address] [id number] [place] [address] Feb, [facility] [place] [facility] [address] [id number] [place] [address] Feb, [facility] [place] [facility] [address] [id number] [place] [address] Feb, [facility] [place] [facility] [address] [id number] [place] [address] Feb, [facility] [place] [facility] [address] [id number] [place] [address] Feb, [facility] [address] [id number] [place] [address] Feb, [facility] [address] [id number] [place] [address] Jan, [facility] [address] [facility] [id number] [place] [address] Jan, [facility] [address] [facility] [id number] [place] [address] Jan, [facility] [address] [id number] [place] [address] Jan, [facility] [address] [id number] [place] [address] Jan, [facility] [address] [facility] [id number] [place] [address] Dec, [facility] [address] [id number] [place] [address] Dec, [facility] [address] [id number] [place] [address] Nov, [facility] [address] [id number] [place] [address] Nov, [facility] [address] [id number] [place] [address] Oct, [facility] [address] [id number] [place] [address] Oct, [facility] [address] [id number] [place] [address] Oct, [facility] [address] [id number] [place] [address] Sep, [facility] [address] [id number] [place] [address] Sep, [facility] [address] [id number] [place] [address] Sep, [facility] [address] [id number] [place] [address] August, [facility] [address] [id number] [place] [address] August, [facility] [address] [id number] [place] [address] August, [facility] [address] [facility] [id number] [place] [address] August, [facility] [address] [id number] [place] [address] Jul, [facility] [address] [id number] [place] [address] Jun, [facility] [address] [id number] [place] [address] Jun, [facility] [address] [id number] [place] [address] Jun, [facility] [address] [id number] [place] [address] May, [facility] [address] [id number] [place] [address] May, [facility] [address] [id number] [place] [address] May, [facility] [address] [id number] [place] [address] May, [facility] [address] [id number] [place] [address] Apr, [facility] [address] [id number] [place] [address] Apr, [facility] [address] [id number] [place] [address] 15 Apr, 2012 [facility] [address] [id number] [place] [address] Apr, [facility] [address] [id number] [place] [address] Apr, [facility] [address] [id number] [place] [address] Mar, [facility] [address] [id number] [place] [address] Mar, [facility] [address] [id number] [place] [address] Mar, [facility] [address] [id number] [place] [address] Mar, [facility] [address] [id number] [place] [address] Mar, [facility] [address] [id number] [place] [address] Mar, [facility] [address] [id number] [place] [address] Mar, [facility] [address] [id number] [place] [address] Feb, [facility] [address] [id number] [place] [address] Feb, [facility] [id number] [place] [address] Feb, [facility] [address] [id number] [place] [address] Feb, [facility] [id number] [place] [address] Feb, [facility] [address] [id number] [place] [address] Feb, [facility] [id number] [place] [address] Feb, [facility] [address] [id number] [place] [address] Feb, [facility] [address] [id number] [place] [address] Jan, [facility] [address] [id number] [place] [address] Jan, [facility] [address] [id number] [place] [address] Jan, [facility] [address] [id number] [place] [address] 11 Jan, 2012 [facility] [address] [id number] [place] [address] 27 Dec, 2011 [facility] [address] [facility] [id number] [place] [address] 25 Dec, 2011 [facility] [address] [id number] [place] [address] 18 Dec, 2011 [facility] [address] [id number] [place] [address] 13 Dec, 2011 [facility] [address] [facility] [id number] [place] [address] 11 Dec, 2011 [facility] [address] [id number] [place] [address] Oct, [facility] [address] [id number] [place] [address] Oct, [facility] [address] [id number] [place] [address] Sep, [facility] [address] [id number] [place] [address] Sep, [facility] [address] [id number] [place] [address] August, [facility] [address] [id number] [place] [address] August, [facility] [address] [id number] [place] [address] Jul, [facility] [address] [id number] [place] [address] Jun, [facility] [address] [id number] [place] [address] Jun, [facility] [address] [id number] [place] [address] Jun, [facility] [address] [id number] [place] [address] Jun, [facility] [address] [id number] [place] [address] Jun, [facility] [address] [id number] [place] [address] 24 May, 2011 [facility] [address] [id number] [place] [address] May, [facility] [address] [id number] [place] [address] 20 May, 2011 [facility] [address] [id number] [place] [address] 14 May, 2011 [facility] [address] [id number] [place] [address] 13 May, 2011 [facility] [id number] [place] [address] 03 May, 2011 [facility] [id number] [place] [address] May, [facility] [id number] [place] [address] May, [facility] [address] [id number] [place] [address] Apr, [facility] [id number] [place] [address] Mar, [facility] [id number] [place] [address] Mar, [facility] [id number] [place] [address] Mar, [facility] [address] [id number] [place] [address] 15 Mar, 2011 [facility] [id number] [place] [address] Mar, [facility] [address] [id number] [place] [address] 17 Jan, 2011 [facility] [id number] [place] [address] 11 Jan, 2011 [facility] [address] [id number] [place] [address] Jan, [facility] [address] [id number] [place] [address] August, [facility] [address] [id number] [place] [address] Mar, [facility] [address] [id number] [place] [address] Feb, [facility] [address] [id number] [place] [address] 14 Jan, 2010 [facility] [address] [id number] [place] [address] Jan, IMMUNIZATIONS No Known Immunizations SOCIAL HISTORY Never Assessed REASON FOR VISIT PLAN OF CARE VITAL SIGNS Blood pressure systolic 124 mmHg 2013-06-06 Blood pressure diastolic 82 mmHg 2013-06-06 MEDICATIONS Unknown Medications RESULTS No Results PROCEDURES Procedure Date Ordered Result Body Site DRAIN/INJECT, JOINT/BURSA Jun 06, 2013 URINE CULTURE/COLONY COUNT Jun 06, 2013 URINALYSIS, AUTO, W/O SCOPE Jun 06, 2013 INSTRUCTIONS MEDICATIONS ADMINISTERED No Known Medications MEDICAL [...]
--- OUTSIDE RECORDS SUMMARY | 2019-08-20 16:03 | XMS REPORT ---
Author Author Talia HUDSON Organization [facility] Address [address] [place] [address] Care Team Providers Care Brusher Warp Name Role Phone KATIE HUDSON Unavailable PROBLEMS Type Condition ICD9-CM Code [id number] Code Onset Dates Condition S tatus SNOMED Code Problem CAD (coronary artery disease) I25.10 Active 49046885 Problem Osteoarthritis of knees, bilateral M17.0 Active 324796220 Problem Essential hypertension I10 Active 53697741 Problem Diabetes E11.9 Active 15580859 Problem Arthritis M19.90 Active 3557025 Problem Morbid obesity E66.01 Active 36444 6002 Problem Hyperlipemia E78.5 Active 3095527 4 ALLERGIES No Information ENCOUNTERS Encounter Location Date Diagnosis [facility] [address] [address] Jun, [facility] [address] [address] May, [facility] [address] [address] May, [facility] [address] [address] May, [facility] [address] [address] Apr, [facility] [address] [address] Mar, [facility] [address] [address] Mar, [facility] [address] [address] Feb, [facility] [address] [address] Nov, [place] [address] [address] Nov, Diabetes E11.9 and Syncope, unspecified syncope type R55 [place] [address] [address] 15 Nov, 2018 Osteoarthritis of knees, bilateral M17.0 [place] [address] [address] Oct, Diabetes E11.9 ; CAD (coronary artery di sease) I25.10 ; Essential hypertension I10 and Hyperlipemia E78.5 [place] [address] [address] Sep, [place] [address] [address] Jul, [place] [address] [address] Apr, [place] [address] [address] Mar, Pustular lesion L08.9 and Encounter for immunization Z23 [place] [address] [address] Feb, [place] [address] [address] Dec, [place] [address] [address] Dec, [place] [address] [address] Dec, Diabetes E11.9 ; Essential hypertension I10 ; Arthritis M19.90 ; Urinary frequency R35.0 ; Routine adult health maintenance Z00.00 and BMI 45.0- 49.9, adult Z68.42 [place] [address] [address] 18 Dec, 2017 [place] [address] [address] Dec, [place] [address] [address] Oct, [place] [address] [address] Sep, Diabetes E11.9 [place] [address] [address] Sep, Diabetes E11.9 ; Hyperlipemia E78.5 ; CA D (coronary artery disease) I25.10 ; Essential hypertension I10 and BMI 45.0-49.9, adult Z68.42 [place] [address] [address] Sep, [place] [address] [address] August, [place] [address] [address] Jan, Dysuria R30.0 [place] [address] [address] Jan, Dysuria R30.0 [place] [address] [address] Jan, Osteoarthritis of knees, bilateral M17.0 [place] [address] [address] Nov, Dysuria R30.0 [place] [address] [address] Oct, Blood in urine R31.9 ; Dysuria R30.0 ; P haryngeal dysphagia R13.13 ; Acute cystitis with hematuria N30.01 ; CAD (coronary artery disease) I25.10 and Diabetes E11.9 [facility] [address] [address] Oct, [place] [address] [address] Sep, Arthritis M19.90 ; Blood in urine R31.9 ; Diabetes E11.9 ; Acute cystitis with hematuria N30.01 and Pharyngoesophageal dysphagia R13.14 [facility] [address] [address] Sep, Osteoarthritis of knees, bilateral M17.0 [facility] [address] [address] Sep, Osteoarthritis of knees, bilateral M17.0 [facility] [address] [address] August, Arthritis M19.90 [facility] [address] [address] Jul, Arthritis M19.90 [facility] [address] [address] Jun, Arthritis M19.90 [facility] [address] [address] Jun, [facility] [address] [address] Jun, [facility] [address] [address] May, Diabetes E11.9 ; Dysuria R30.0 and Arthr itis M19.90 [facility] [address] [address] Apr, [facility] [address] [address] Apr, Arthritis M19.90 [facility] [address] [address] Mar, Arthritis M19.90 [facility] [address] [address] Feb, [facility] [address] [address] Jan, [place] [address] [place] [id number] [place] [address] 29 Dec, 2015 Diabetes E11.9 and Arthritis M19.90 [facility] [address] [address] Dec, [facility] [address] [address] Nov, Arthritis M19.90 [facility] [address] [address] Nov, [facility] [address] [address] Oct, Arthritis M19.90 [place] [address] [address] Sep, Osteoarthritis of knees, bilateral M17.0 [place] [address] [address] Sep, Osteoarthritis of knees, bilateral M17.0 [place] [address] [address] August, Arthritis M19.90 [place] [address] [address] August, [place] [address] [address] Jul, Hyperlipemia E78.5 [place] [address] [address] Jul, Encounter for well woman exam Z01.419 ; Morbid obesity E66.01 ; Encounter for screening for malignant neoplasm of cervix Z12.4 and Encounter for screening mammogram for breast cancer Z12.31 [place] [address] [address] Jul, Arthritis M19.90 ; Diabetes E11.9 ; Bloo d in urine R31.9 and UTI (urinary tract infection) N39.0 [place] [address] [address] Jul, [facility] [address] [place] [id number] [place] [address] Jun, Arthritis M19.90 [facility] [address] [address] May, Arthritis M19.90 [facility] [address] [address] May, [facility] [address] [address] Apr, [facility] [address] [address] Apr, Arthritis M19.90 ; Diabetes E11.9 and Mo rbid obesity E66.01 [facility] [address] [address] Apr, [facility] [address] [address] Apr, Dyspareunia N94.1 [facility] [address] [address] Apr, [facility] [address] [address] Apr, [facility] [address] [address] Apr, Osteoarthritis of knees, bilateral M17.0 [facility] [address] [address] Apr, Diabetes E11.9 and CAD (coronary artery disease) I25.10 [facility] [address] [address] 08 Mar, 2015 [facility] [address] [address] Feb, [facility] [address] [address] 30 Jan, 2015 [facility] [address] [id number] [place] [address] Jan, [facility] [id number] [place] [address] Jan, [facility] [address] [id number] [place] [address] Jan, Osteoarthritis of knees, bilateral M17.0 [facility] [address] [id number] [place] [address] 30 Dec, 2014 [facility] [address] [place] [address] [id number] [place] [address] Dec, [facility] [address] [address] Dec, [facility] [id number] [place] [address] Dec, Diabetes mellitus 250.00 and UTI (urinar y tract infection) 599.0 [facility] [id number] [place] [address] Dec, [facility] [id number] [place] [address] Nov, [facility] [id number] [place] [address] Oct, [facility] [id number] [place] [address] Oct, [facility] [id number] [place] [address] Oct, [facility] [id number] [place] [address] Oct, [facility] [address] [place] [address] [id number] [place] [address] Oct, [facility] [id number] [place] [address] Sep, [facility] [address] [place] [address] [id number] [place] [address] August, [facility] [place] [facility] [address] [facility] [id number] [place] [address] August, [facility] [place] [facility] [address] [id number] [place] [address] August, [facility] [place] [facility] [address] [id number] [place] [address] Jul, [facility] [place] [facility] [address] [id number] [place] [address] Jul, [facility] [place] [facility] [address] [id number] [place] [address] Jul, [facility] [place] [facility] [address] [id number] [place] [address] Jun, [facility] [place] [facility] [address] [id number] [place] [address] Jun, [facility] [place] [facility] [address] [id number] [place] [address] Jun, [facility] [place] [facility] [address] [id number] [place] [address] Jun, [facility] [place] [facility] [address] [id number] [place] [address] Jun, [facility] [place] [facility] [address] [id number] [place] [address] Jun, [facility] [place] [facility] [address] [id number] [place] [address] Jun, [facility] [place] [facility] [address] [id number] [place] [address] Jun, [facility] [place] [facility] [address] [id number] [place] [address] May, [facility] [place] [facility] [address] [id number] [place] [address] May, [facility] [place] [facility] [address] [id number] [place] [address] May, [facility] [place] [facility] [address] [id number] [place] [address] May, 2014 [facility] [place] [facility] [address] [facility] [id number] [place] [address] May, [facility] [place] [facility] [address] [id number] [place] [address] May, 2014 [facility] [place] [facility] [address] [id number] [place] [address] May, 2014 [facility] [place] [facility] [address] [id number] [place] [address] May, 2014 [facility] [place] [facility] [address] [id number] [place] [address] May, [facility] [place] [facility] [address] [id number] [place] [address] May, 2014 [facility] [place] [facility] [address] [id number] [place] [address] May, [facility] [place] [facility] [address] [id number] [place] [address] May, [facility] [place] [facility] [address] [id number] [place] [address] Apr, [facility] [place] [facility] [address] [id number] [place] [address] Apr, [facility] [place] [facility] [address] [id number] [place] [address] Mar, [facility] [place] [facility] [address] [id number] [place] [address] Mar, [facility] [place] [facility] [address] [id number] [place] [address] Mar, [facility] [place] [facility] [address] [id number] [place] [address] Mar, [facility] [place] [facility] [address] [id number] [place] [address] Mar, [facility] [place] [facility] [address] [id number] [place] [address] Mar, [facility] [place] [facility] [address] [id number] [place] [address] Feb, [facility] [place] [facility] [address] [id number] [place] [address] Feb, [facility] [place] [facility] [address] [id number] [place] [address] Feb, [facility] [place] [facility] [address] [id number] [place] [address] Feb, [facility] [place] [facility] [address] [id number] [place] [address] Feb, [facility] [place] [facility] [address] [id number] [place] [address] Feb, [facility] [place] [facility] [address] [id number] [place] [address] Feb, [facility] [place] [facility] [id number] [place] [address] Feb, [facility] [place] [facility] [address] [id number] [place] [address] Feb, [facility] [place] [facility] [address] [id number] [place] [address] Jan, [facility] [place] [facility] [address] [id number] [place] [address] Jan, [facility] [place] [facility] [address] [id number] [place] [address] Jan, [facility] [place] [facility] [address] [id number] [place] [address] Jan, [facility] [place] [facility] [address] [id number] [place] [address] Jan, [facility] [place] [facility] [address] [id number] [place] [address] Jan, [facility] [place] [facility] [address] [id number] [place] [address] Jan, [facility] [place] [facility] [address] [id number] [place] [address] Jan, [facility] [place] [facility] [address] [id number] [facility] [address] Jan, [facility] [place] [facility] [address] [facility] [id number] [place] [address] Jan, [facility] [place] [facility] [address] [id number] [facility] [place] [address] Dec, [facility] [place] [facility] [address] [facility] [id number] [place] [address] Dec, [facility] [place] [facility] [address] [facility] [id number] [place] [address] Dec, [facility] [place] [facility] [address] [facility] [id number] [place] [address] Dec, [facility] [place] [facility] [address] [id number] [facility] [place] [address] Nov, [facility] [place] [facility] [address] [id number] [facility] [place] [address] Nov, [facility] [place] [facility] [address] [id number] [facility] [place] [address] Nov, [facility] [place] [facility] [address] [id number] [facility] [place] [address] Nov, [facility] [place] [facility] [address] [id number] [place] [address] Nov, [facility] [place] [facility] [address] [id number] [place] [address] Nov, [facility] [place] [facility] [address] [facility] [id number] [facility] [place] [address] Nov, [facility] [place] [facility] [address] [id number] [place] [address] Nov, [facility] [place] [facility] [address] [id number] [place] [address] Nov, [facility] [place] [facility] [address] [id number] [facility] [place] [address] Oct, [facility] [place] [facility] [address] [id number] [facility] [place] [address] Oct, [facility] [place] [facility] [address] [id number] [facility] [place] [address] Sep, [facility] [place] [facility] [address] [facility] [id number] [facility] [place] [address] Sep, [facility] [place] [facility] [address] [facility] [id number] [place] [address] Sep, [facility] [place] [facility] [address] [facility] [id number] [facility] [place] [address] Sep, [facility] [place] [facility] [address] [id number] [place] [address] Sep, [facility] [place] [facility] [address] [facility] [id number] [place] [address] Sep, [facility] [place] [facility] [address] [id number] [place] [address] Sep, [facility] [place] [facility] [address] [id number] [place] [address] Sep, [facility] [place] [facility] [address] [id number] [place] [address] Sep, [facility] [place] [facility] [address] [facility] [id number] [place] [address] Sep, [facility] [place] [facility] [address] [id number] [place] [address] Sep, [facility] [place] [facility] [address] [id number] [place] [address] Sep, [facility] [place] [facility] [address] [id number] [place] [address] Sep, [facility] [place] [facility] [address] [id number] [place] [address] Sep, [facility] [place] [facility] [address] [facility] [id number] [place] [address] August, [facility] [place] [facility] [address] [id number] [place] [address] August, [facility] [place] [facility] [address] [id number] [place] [address] August, [facility] [place] [facility] [address] [id number] [place] [address] August, [facility] [place] [facility] [address] [id number] [place] [address] Jul, [facility] [place] [facility] [address] [id number] [place] [address] Jul, [facility] [place] [facility] [address] [id number] [place] [address] Jul, [facility] [place] [facility] [address] [id number] [place] [address] Jul, [facility] [place] [facility] [address] [id number] [place] [address] Jun, [facility] [place] [facility] [address] [id number] [place] [address] Jun, [facility] [place] [facility] [address] [id number] [place] [address] May, [facility] [place] [facility] [address] [id number] [place] [address] May, [facility] [place] [facility] [address] [id number] [place] [address] May, [facility] [place] [facility] [address] [id number] [place] [address] May, [facility] [place] [facility] [address] [id number] [place] [address] May, [facility] [place] [facility] [address] [id number] [place] [address] May, [facility] [place] [facility] [address] [id number] [place] [address] May, [facility] [place] [facility] [address] [id number] [place] [address] May, [facility] [place] [facility] [address] [id number] [place] [address] May, [facility] [place] [facility] [address] [id number] [place] [address] Apr, [facility] [place] [facility] [address] [id number] [place] [address] Apr, [facility] [place] [facility] [address] [id number] [place] [address] Apr, [facility] [place] [facility] [address] [id number] [place] [address] Apr, [facility] [place] [facility] [address] [id number] [place] [address] Apr, [facility] [place] [facility] [address] [id number] [place] [address] Mar, [facility] [place] [facility] [address] [id number] [place] [address] Mar, [facility] [place] [facility] [address] [id number] [place] [address] Feb, [facility] [address] [id number] [place] [address] Feb, [facility] [address] [id number] [place] [address] Feb, [facility] [address] [id number] [place] [address] Feb, [facility] [address] [id number] [place] [address] Feb, [facility] [address] [id number] [place] [address] Feb, [facility] [address] [id number] [place] [address] Feb, [facility] [address] [id number] [place] [address] Feb, [facility] [address] [id number] [place] [address] Feb, [facility] [address] [facility] [id number] [place] [address] Jan, [facility] [address] [id number] [place] [address] Jan, [facility] [address] [id number] [place] [address] Jan, [facility] [address] [id number] [place] [address] Jan, [facility] [address] [facility] [id number] [place] [address] Jan, [facility] [address] [id number] [place] [address] Dec, [facility] [address] [id number] [place] [address] Dec, [facility] [address] [id number] [place] [address] Nov, [facility] [address] [id number] [place] [address] Nov, [facility] [address] [id number] [place] [address] Oct, [facility] [address] [id number] [place] [address] Oct, [facility] [address] [id number] [place] [address] Oct, [facility] [address] [id number] [place] [address] Sep, [facility] [address] [id number] [place] [address] Sep, [facility] [address] [id number] [place] [address] Sep, [facility] [address] [id number] [place] [address] August, [facility] [address] [id number] [place] [address] August, [facility] [address] [id number] [place] [address] August, [facility] [address] [id number] [place] [address] August, [facility] [address] [id number] [place] [address] Jul, [facility] [address] [id number] [place] [address] Jun, [facility] [address] [id number] [place] [address] Jun, [facility] [address] [id number] [place] [address] Jun, [facility] [address] [id number] [place] [address] May, [facility] [address] [id number] [place] [address] May, [facility] [address] [id number] [place] [address] May, [facility] [address] [id number] [place] [address] May, [facility] [address] [id number] [place] [address] Apr, [facility] [address] [id number] [place] [address] Apr, [facility] [address] [id number] [place] [address] Apr, [facility] [address] [id number] [place] [address] Apr, [facility] [address] [id number] [place] [address] Apr, [facility] [address] [id number] [place] [address] Mar, [facility] [address] [id number] [place] [address] Mar, [facility] [address] [id number] [place] [address] Mar, [facility] [address] [id number] [place] [address] Mar, [facility] [address] [id number] [place] [address] Mar, [facility] [address] [id number] [place] [address] Mar, [facility] [address] [id number] [place] [address] Mar, [facility] [address] [id number] [place] [address] Feb, [facility] [id number] [place] [address] Feb, [facility] [address] [id number] [place] [address] Feb, [facility] [address] [id number] [place] [address] Feb, [facility] [id number] [place] [address] Feb, [facility] [address] [id number] [place] [address] Feb, [facility] [address] [id number] [place] [address] Feb, [facility] [address] [id number] [place] [address] Feb, [facility] [id number] [place] [address] Jan, [facility] [address] [id number] [place] [address] Jan, [facility] [address] [id number] [place] [address] Jan, [facility] [address] [id number] [place] [address] Jan, [facility] [address] [id number] [place] [address] 27 Dec, 2011 [facility] [address] [id number] [place] [address] 25 Dec, 2011 [facility] [address] [id number] [place] [address] 18 Dec, 2011 [facility] [address] [facility] [id number] [place] [address] 13 Dec, 2011 [facility] [address] [id number] [place] [address] 11 Dec, 2011 [facility] [address] [id number] [place] [address] Oct, [facility] [address] [id number] [place] [address] Oct, [facility] [address] [id number] [place] [address] Sep, [facility] [address] [id number] [place] [address] Sep, [facility] [address] [id number] [place] [address] August, [facility] [address] [id number] [place] [address] August, [facility] [address] [id number] [place] [address] Jul, [facility] [address] [id number] [place] [address] Jun, [facility] [address] [id number] [place] [address] Jun, [facility] [address] [id number] [place] [address] Jun, [facility] [address] [id number] [place] [address] Jun, [facility] [address] [id number] [place] [address] Jun, [facility] [address] [id number] [place] [address] 24 May, 2011 [facility] [address] [id number] [place] [address] May, [facility] [address] [id number] [place] [address] May, [facility] [address] [id number] [place] [address] 14 May, 2011 [facility] [address] [id number] [place] [address] May, [facility] [address] [id number] [place] [address] May, [facility] [address] [id number] [place] [address] May, [facility] [address] [id number] [place] [address] May, [facility] [address] [id number] [place] [address] Apr, [facility] [address] [id number] [place] [address] Mar, [facility] [address] [id number] [place] [address] Mar, [facility] [address] [id number] [place] [address] Mar, [facility] [address] [id number] [place] [address] Mar, [facility] [address] [id number] [place] [address] Mar, [facility] [address] [id number] [place] [address] Jan, [facility] [address] [id number] [place] [address] Jan, [facility] [id number] [place] [address] Jan, [facility] [address] [id number] [place] [address] August, [facility] [id number] [place] [address] Mar, [facility] [address] [id number] [place] [address] Feb, [facility] [id number] [place] [address] 14 Jan, 2010 [facility] [address] [id number] [place] [address] 11 Jan, 2010 IMMUNIZATIONS No Known Immunizations [...]
== END 2019-08-20 15:00 | disposition home or self-care (01) ==
LOC: EDUNIT# 12:50 → ER FS 12:51
DX: K52.9 Noninfective gastroenteritis and colitis, unspecified (principal); L70.9 Acne, unspecified; E11.40 Type 2 diabetes mellitus with diabetic neuropathy, unspecified; I10 Essential (primary) hypertension; E78.00 Pure hypercholesterolemia, unspecified; F32.9 Major depressive disorder, single episode, unspecified; E66.01 Morbid (severe) obesity due to excess calories; Z86.73 Personal history of transient ischemic attack (TIA), and cerebral infarction without residual deficits; Z91.041 Radiographic dye allergy status; Z79.84 Long term (current) use of oral hypoglycemic drugs; Z87.891 Personal history of nicotine dependence; Z68.41 Body mass index [BMI] 40.0-44.9, adult
CPT/HCPCS: 36415; 74019; 80053; 85025

== ENCOUNTER 2019-09-18 14:52 | Emergency (ER) | payer MEDICAID ==
[~2019-09-18] VITALS: Ht 167.7 cm; Wt 122.7 kg
[~2019-09-18 14:52] MED LIST changes: +LOPE2TAB34 PO; +MUPI22OI2 TP; +SULF-11 PO
[2019-09-18 14:54] VITALS: BP 118/58
--- NOTE | 2019-09-18 15:07 | ED General ---
General Stated Complaint: SKIN INFECTION Source of Information: Patient, EMS, EMS Notes Reviewed, Old Records, RN/MD History of Present Illness Date Seen by Provider: Sep 18, 2019 Time Seen by Provider: 14:55 Initial Comments This patient is a 64-year-old female presents to the emerge from for skin lesions. Patient is adamant that she believes its MRSA and has been there for months. However the lesions. Be consistent with bedbugs. For scabies. Patient states that they do itch frequently and she has a mild her legs and arms and some up on her face. Intermittently. Patient has some excoriations from itching. We'll advise the patient that the appear to be scabies versus bed bugs patient was adamant that is not bedbugs or scabies that its MRSA. I did discuss at length with patient about signs and symptoms that she continues to describe scabies/bedbugs. I advised the patient that I brought her 2 different prescriptions 1 him for Elimite cream and then 1 for Bactroban ointment. Patient states these lesions have been present for months. Patient will be advised to follow-up with primary care physician in 2-3 days if not improved. Timing/Duration: Constant, Other (3-4 months) Severity: Mild Associated Systoms: No Denies Symptoms, No Chest Pain, No Cough, No Diaphoresis, No Fever/Chills, No Headaches, No Loss of Appetite, No Malaise, No Nausea/Vomiting, No Rash, No Seizure, No Shortness of Air, No Syncope, No Weakness, No Other Allergies and Home Medications Allergies Uncoded Allergies: IV CONTRAST (Adverse Reaction, Mild, HIVES, 09/17/18) Home Medications Amitriptyline HCl 50 Mg Tablet, 50 MG PO HS, (Reported) Atorvastatin Calcium 40 Mg Tablet, 40 MG PO HS, (Reported) Gabapentin 600 Mg Tablet, 600 MG PO TID, (Reported) Ibuprofen 800 Mg Tablet, 800 MG PO TID, (Reported) Liraglutide 0.6 Mg/0.1 Ml Pen.injctr, 1.8 MG SC DAILY, (Reported) Loperamide HCl 2 Mg Tablet, 2 MG PO BID PRN Prescribed by: KARTIK MCCARTY on 08/20/19 9873 Losartan Potassium 50 Mg Tablet, 50 MG PO DAILY, (Reported) Metformin HCl 1,000 Mg Tablet, 1,000 MG PO BID, (Reported) LAST FILLED #60 02-20-19 Mupirocin 22 Gm Oint...g., 22 GM TP DAILY Prescribed by: KARTIK MCCARTY on 08/20/191432 Ondansetron 4 Mg Tab.rapdis, 4 MG PO Q6H PRN for NAUSEA/VOMITING-1ST LINE, (Reported) Ondansetron 4 Mg Tab.rapdis, 4 MG PO TID Prescribed by: KARTIK MCCARTY on 08/20/19 143 Oxybutynin Chloride 5 Mg Tablet, 5 MG PO TID, (Reported) Phenazopyridine HCl 200 Mg Tablet, 1 TAB PO Q8H Prescribed by: LINDA CISNEROS on 06/11/19 182 Sulfamethoxazole/Trimethoprim 1 Each Tablet, 1 EACH PO BID Prescribed by: KARTIK MCCARTY on 08/20/191432 Sulfamethoxazole/Trimethoprim 1 Each Tablet, 1 EACH PO BID Prescribed by: KARTIK MCCARTY on 08/20/191432 Patient Home Medication List Home Medication List Reviewed: Yes Review of Systems Review of Systems Constitutional: No no symptoms reported; see HPI; No chills, No diaphoresis, No dizziness, No fever, No malaise, No weakness, No weight gain, No weight loss, No other EENTM: No see HPI, No no symptoms reported, No ear discharge, No hearing loss, No ear pain, No blurred vision, No double vision, No eye pain, No tearing, No vision loss, No dental problems, No hoarseness, No mouth pain, No mouth swell ing, No epistaxis, No nose congestion, No nose pain, No throat pain, No throat swelling, No other Respiratory: No no symptoms reported, No see HPI, No cough, No dyspnea on exertion, No hemoptysis, No orthopnea, No phlegm, No short of breath, No stridor, No wheezing, No other Cardiovascular: No no symptoms reported, No see HPI, No chest pain, No edema, No Hx of Intervention, No palpitations, No syncope, No vascular heart diseas, No other Gastrointestinal: No RUQ, No LUQ, No RLQ, No LLQ, No no symptoms reported, No see HPI, No abdominal pain, No constipation, No diarrhea, No dysphagia, No hematemesis, No heartburn, No jaundice, No loss of appetite, No melena, No nausea, No vomiting, No other Skin: see HPI, lesions All Other Systems Reviewed Negative Unless Noted: Yes Past Zubycog-Rzyeco-Kdbmjb Hx Patient Social History Type Used: Cigarettes Former Smoker, Quit: Dec 07, 1994 2nd Hand Smoke Exposure: No Recent Hopitalizations: No Immunizations Up To Date Tetanus Booster (TDap): Unknown Date of Pneumonia Vaccine: Apr 17, 2015 Seasonal Allergies Seasonal Allergies: No Past Medical History Surgeries: Yes (CYSTOSCOPIES, DILITATION URETHRAL STRICTURE) Appendectomy, Bladder Surgery, Section, Eye Surgery, Gallbladder, Tonsillectomy, Tubal Ligation Respiratory: Yes COPD Cardiac: Yes High Cholesterol, Hypertension Neurological: Yes (CVA W/ R SIDED WEAKNESS) Neuropathy, Stroke Genitourinary: Yes (TRIGONITIS) UTI-Chronic Gastrointestinal: No Musculoskeletal: Yes (CHRONIC KNEE PAIN) Arthritis Endocrine: Yes (MORBID OBESITY) Diabetes, Insulin dep HEENT: No (prior cataract surgeries) Cancer: No Psychosocial: Yes Depression Integumentary: Yes (L ORBITAL CELLULITIS, 2018 CHEEK CELLULITIS) Recent Skin Changes Blood Disorders: No Family Medical History Patient reports no known family medical history. No Pertinent Family Hx Physical Exam Vital Signs Capillary Refill : Height, Weight, BMI Height: 5'6.00" Weight: 290lbs. 1.0oz. 131.238220wf; 42.00 BMI Method:Stated General Appearance: No Apparent Distress, WD/WN Respiratory: Chest Non Tender, Lungs Clear, Normal Breath Sounds, No Accessory Muscle Use, No Respiratory Distress Cardiovascular: Regular Rate, Rhythm, No Edema, No Gallop, No JVD, No Murmur, Normal Peripheral Pulses Gastrointestinal: Normal Bowel Sounds, No Organomegaly, No Pulsatile Mass, Non Tender, Soft Skin: Normal Color, Warm/Dry, Other (multiple lesions consistent with bed bugs. Patient does have excoriations and skin.) Progress/Results/Core Measures Suspected Sepsis SIRS Temperature: Pulse: Respiratory Rate: Blood Pressure / Mean: Results/Orders Vital Signs/I&O Capillary Refill : Progress Note : Time: 15:04 Progress Note Patient is lesions consistent with scabies/bedbugs. The patient is adamant that is MRSA. No significant lesions that would need I&D. Excoriations. Patient states these lesions been there 3-4 months and continues. Patient is insistent that she has MRSA therefore we will write her prescription for Bactroban appointment. Patient will also be receiving Elimite cream patient is instructed to use medications as instructed. Patient be discharged home follow up with PCP in 2-3 days Departure Impression Primary Impression: Bedbug bite Disposition: HOME, SELF-CARE Condition: Stable Departure-Patient Inst. Decision time for Depature: 15:06 Referrals: [facility] [place] (PCP/Family) Primary Care Physician Patient Instructions: Bedbugs Add. Discharge Instructions: Take medications as instructed. Clean home wash sheets fumigate if needed. Follow-up with PCP in 2-3 days Scripts Permethrin (Elimite) 60 Gm Cream..g. 60 GM TP DAILY for 7 Days, #1 TUBE 0 Refills Prov: KARLEY MCKNIGHT MD 09/18/19 Mupirocin (Mupirocin) 22 Gm Oint...g. 22 GM TP BID for 7 Days, #1 TUBE 0 Refills Prov: KARLEY MCKNIGHT MD 09/18/19 KARLEY MCKNIGHT MD Sep 18, 2019 15:07
[2019-09-18] MEDS ORDERED: MUPI22OI2 TP (15:08)
[2019-09-18] MEDS ORDERED: PERM60CR17 TP (15:08)
--- OUTSIDE RECORDS SUMMARY | 2019-09-18 18:55 | XMS REPORT ---
Author Author Talia HUDSON Organization [facility] Address [address] [place] [address] Care Team Providers Care Cmo Name Role Phone KATIE HUDSON Unavailable PROBLEMS Type Condition ICD9-CM Code [id number] Code Onset Dates Condition S tatus SNOMED Code Problem CAD (coronary artery disease) I25.10 Active 71277203 Problem Osteoarthritis of knees, bilateral M17.0 Active 435207069 Problem Essential hypertension I10 Active 18080221 Problem Diabetes E11.9 Active 88174554 Problem Arthritis M19.90 Active 8506402 Problem Morbid obesity E66.01 Active 46423 6002 Problem Hyperlipemia E78.5 Active 7506682 4 ALLERGIES No Information ENCOUNTERS Encounter Location Date Diagnosis [facility] [address] [id number] [address] [place] [address] August, [facility] [address] [facility] [id number] [address] [place] [address] August, [facility] [address] [facility] [id number] [address] [place] [address] August, [facility] [address] [facility] [id number] [address] [place] [address] August, [facility] [address] [id number] [address] [place] [address] August, [facility] [address] [facility] [id number] [address] [place] [address] August, [facility] [address] [facility] [id number] [address] [place] [phone] August, [facility] [address] [facility] [id number] [address] [place] [address] August, Diabetes E11.9 [facility] [address] [id number] [address] [place] [address] August, [facility] [address] [id number] [address] [place] [address], [place] [address] August, [facility] [address] [id number] [address] [place] [address] August, [facility] [address] [id number] [address] [place] [phone] Jul, [facility] [address] [id number] [address] [place] [address] Jul, [facility] [address] [id number] [address] [place] [address] Jul, [facility] [address] [id number] [address] [place] [phone] Jul, [facility] [address] [id number] [address] [place] [phone] Jun, [facility] [address] [id number] [address] [place] [phone] Jun, [facility] [address] [facility] [id number] [address] [place] [address] Jun, Diabetes E11.9 ; Skin infect ion L08.9 and Essential hypertension I10 [facility] [address] [id number] [address] [place] [phone] May, [facility] [address] [id number] [address] [place] [phone] May, [facility] [address] [id number] [address] [place] [address] May, [facility] [address] [id number] [address] [place] [phone] Apr, [facility] [address] [id number] [address] [place] [phone] Mar, [facility] [address] [id number] [address] [place] [phone] Mar, [facility] [address] [facility] [id number] [address] [place] [address] Feb, [facility] [address] [id number] [address] [place] [phone] Nov, [facility] [address] [facility] [id number] [address] [place] [address] Nov, Diabetes E11.9 and Syncope, unspecified syncope type R55 [facility] [address] [id number] [address] [place] [address] Nov, Osteoarthritis of knees, natan ateral M17.0 [facility] [address] [facility] [id number] [address] [place] [address] Oct, Diabetes E11.9 ; CAD (guardado ry artery disease) I25.10 ; Essential hypertension I10 and Hyperlipemia E78.5 [facility] [address] [id number] [address] [place] [address] Sep, [facility] [address] [facility] [id number] [address] [place] [address] Jul, [facility] [address] [facility] [id number] [address] [place] [address] Apr, [facility] [address] [facility] [id number] [address] [place] [address] Mar, Pustular lesion L08.9 and En counter for immunization Z23 [facility] [address] [facility] [id number] [address] [place] [address] Feb, [facility] [address] [facility] [id number] [address] [place] [address] Dec, [facility] [address] [facility] [id number] [address] [place] [address] Dec, [facility] [address] [facility] [id number] [address] [place] [address] 25 Dec, 2017 Diabetes E11.9 ; Essential h ypertension I10 ; Arthritis M19.90 ; Urinary frequency R35.0 ; Routine adult health maintenance Z00.00 and BMI 45.0- 49.9, adult Z68.42 [facility] [address] [place] [id number] [address] [place] [address] 18 Dec, 2017 [facility] [address] [address] 04 Dec, 2017 [facility] [address] [place] [id number] [place] [address] Oct, [facility] [address] [address] Sep, Diabetes E11.9 [facility] [address] [place] [id number] [place] [address] Sep, Diabetes E11.9 ; Hyperlipemi a E78.5 ; CAD (coronary artery disease) I25.10 ; Essential hypertension I10 and BMI 45.0-49.9, adult Z68.42 [facility] [address] [address] Sep, [facility] [address] [place] [id number] [address] [place] [address] August, [facility] [address] [address] Jan, Dysuria R30.0 [facility] [address] [place] [id number] [place] [address] Jan, Dysuria R30.0 [facility] [address] [place] [id number] [place] [address] Jan, Osteoarthritis of knees, natan ateral M17.0 [facility] [address] [place] [id number] [address] [place] [address] Nov, Dysuria R30.0 [place] [address] [facility] [id number] [address] [place] [address] Oct, Blood in urine R31.9 ; Dysur ia R30.0 ; Pharyngeal dysphagia R13.13 ; Acute cystitis with hematuria N30.01 ; CAD (coronary artery disease) I25.10 and Diabetes E11.9 [facility] [address] [facility] [id number] [address] [place] [address] Oct, [place] [address] [facility] [id number] [address] [place] [address] Sep, Arthritis M19.90 ; Blood in urine R31.9 ; Diabetes E11.9 ; Acute cystitis with hematuria N30.01 and Pharyngoesophageal dysphagia R13.14 [place] [address] [place] [id number] [address] [place] [phone] Sep, Osteoarthritis of knees, natan ateral M17.0 [place] [address] [place] [id number] [address] [place] [address] Sep, Osteoarthritis of knees, natan ateral M17.0 [place] [address] [place] [id number] [address] [place] [address] August, Arthritis M19.90 [place] [address] [place] [id number] [address] [place] [phone] Jul, Arthritis M19.90 [place] [address] [place] [id number] [address] [place] [address] Jun, Arthritis M19.90 [place] [address] [facility] [id number] [address] [place] [phone] Jun, [place] [address] [place] [id number] [address] [place] [address] Jun, [place] [address] [place] [id number] [address] [place] [address] May, Diabetes E11.9 ; Dysuria R30 .0 and Arthritis M19.90 [place] [address] [place] [id number] [address] [place] [address] Apr, [facility] [address] [id number] [address] [place] [address] Apr, Arthritis M19.90 [facility] [address] [id number] [address] [place] [address] Mar, Arthritis M19.90 [facility] [address] [id number] [address] [place] [address] Feb, [facility] [address] [id number] [address] [place] [address] Jan, [facility] [address] [id number] [address] [place] [address] Dec, Diabetes E11.9 and Arthritis M19.90 [facility] [address] [id number] [address] [place] [address] Dec, [facility] [address] [id number] [address] [place] [address] Nov, Arthritis M19.90 [facility] [address] [id number] [address] [place] [address] Nov, [facility] [address] [id number] [address] [place] [address] Oct, Arthritis M19.90 [facility] [address] [id number] [address] [place] [address] Sep, Osteoarthritis of knees, natan ateral M17.0 [facility] [address] [id number] [address] [place] [phone] Sep, Osteoarthritis of knees, natan ateral M17.0 [facility] [address] [facility] [id number] [address] [place] [address] August, Arthritis M19.90 [facility] [address] [id number] [address] [place] [address] August, [facility] [address] [facility] [id number] [address] [place] [phone] Jul, Hyperlipemia E78.5 [facility] [address] [facility] [id number] [address] [place] [address] Jul, Encounter for well woman exa m Z01.419 ; Morbid obesity E66.01 ; Encounter for screening for malignant neoplasm of cervix Z12.4 and Encounter for screening mammogram for breast cancer Z12.31 [facility] [address] [facility] [id number] [address] [place] [address] Jul, Arthritis M19.90 ; Diabetes E11.9 ; Blood in urine R31.9 and UTI (urinary tract infection) N39.0 [facility] [address] [facility] [id number] [address] [place] [address] Jul, [place] [address] [facility] [id number] [address] [place] [address] Jun, Arthritis M19.90 [facility] [address] [facility] [id number] [address] [place] [id number] May, Arthritis M19.90 [facility] [address] [facility] [id number] [address] [place] [address] May, [facility] [address] [facility] [id number] [address] [place] [address] Apr, [facility] [address] [facility] [id number] [address] [place] [address] Apr, Arthritis M19.90 ; Diabetes E11.9 and Morbid obesity E66.01 [facility] [address] [facility] [id number] [address] [place] [phone] Apr, [facility] [address] [facility] [id number] [address] [place] [id number] Apr, Dyspareunia N94.1 [facility] [address] [facility] [id number] [address] [place] [phone] Apr, [facility] [address] [id number] [address] [place] [phone] 15 Apr, 2015 [facility] [address] [id number] [address] [place] [phone] Apr, Osteoarthritis of knees, natan ateral M17.0 [facility] [address] [id number] [address] [place] [address] Apr, Diabetes E11.9 and CAD (elysia nary artery disease) I25.10 [facility] [address] [id number] [address] [place] [address] Mar, [facility] [address] [id number] [address] [place] [phone] Feb, [facility] [address] [id number] [address] [place] [phone] Jan, [facility] [address] [id number] [address] [place] [address] Jan, [facility] [address] [id number] [address] [place] [address] Jan, [facility] [address] [id number] [address] [place] [phone] Jan, Osteoarthritis of knees, natan ateral M17.0 [facility] [address] [id number] [address] [place] [phone] 30 Dec, 2014 [facility] [address] [id number] [address] [place] [phone] 17 Dec, 2014 [facility] [address] [id number] [address] [place] [phone] 10 Dec, 2014 [facility] [address] [id number] [address] [place] [phone] 08 Dec, 2014 Diabetes mellitus 250.00 and UTI (urinary tract infection) 599.0 [facility] [address] [id number] [address] [place] [address] Dec, [facility] [address] [id number] [address] [place] [address], [place] [address] Nov, [facility] [address] [id number] [address] [place] [address], [place] [address] Oct, [facility] [address] [id number] [address] [place] [address], [place] [address] Oct, [facility] [address] [id number] [address] [place] [address], [place] [address] Oct, [facility] [address] [id number] [address] [place] [address], [place] [address] Oct, [facility] [address] [id number] [address] [place] [address], [place] [address] Oct, [facility] [address] [id number] [address] [place] [address], [place] [address] Sep, [facility] [address] [id number] [address] [place] [address], [place] [address] August, [facility] [address] [id number] [address] [place] [address], [place] [address] August, [facility] [address] [id number] [address] [place] [address], [place] [address] August, [facility] [address] [id number] [address] [place] [address], [place] [address] Jul, [facility] [address] [id number] [address] [place] [address], [place] [address] Jul, [facility] [address] [id number] [address] [place] [address], [place] [address] Jul, [facility] [address] [id number] [address] [place] [address], [place] [address] Jun, [facility] [address] [id number] [address] [place] [address], [place] [address] Jun, [facility] [address] [id number] [address] [place] [address], [place] [address] Jun, [facility] [address] [id number] [address] [place] [address], [place] [address] Jun, [facility] [address] [id number] [address] [place] [address], [place] [address] Jun, [facility] [address] [id number] [address] [place] [address], [place] [address] 16 Jun, 2014 [facility] [address] [id number] [address] [place] [address], [place] [address] 16 Jun, 2014 [facility] [address] [id number] [address] [place] [address], [place] [address] Jun, [facility] [address] [id number] [address] [place] [address], [place] [address] May, 2014 [facility] [address] [id number] [address] [place] [address], [place] [address] May, 2014 [facility] [address] [id number] [address] [place] [address], [place] [address] May, 2014 [facility] [address] [id number] [address] [place] [address], [place] [address] May, 2014 [facility] [address] [id number] [address] [place] [address], [place] [address] May, 2014 [facility] [address] [id number] [address] [place] [address], [place] [address] May, 2014 [facility] [address] [id number] [address] [place] [address], [place] [address] May, 2014 [facility] [address] [id number] [address] [place] [address], [place] [address] May, 2014 [facility] [address] [id number] [address] [place] [address], [place] [address] May, 2014 [facility] [address] [id number] [address] [place] [address], [place] [address] May, [facility] [address] [id number] [address] [place] [address], [place] [address] May, [facility] [address] [id number] [address] [place] [address], [place] [address] May, [facility] [address] [id number] [address] [place] [address], [place] [address] Apr, [facility] [address] [id number] [address] [place] [address], [place] [address] Apr, [facility] [address] [id number] [address] [place] [address], [place] [address] Mar, [facility] [address] [id number] [address] [place] [address], [place] [address] Mar, [facility] [address] [id number] [address] [place] [address], [place] [address] Mar, [facility] [address] [id number] [address] [place] [address], [place] [address] Mar, [facility] [address] [id number] [address] [place] [address], [place] [address] Mar, [facility] [address] [id number] [address] [place] [address], [place] [address] Mar, [facility] [address] [id number] [address] [place] [address], [place] [address] Feb, [facility] [address] [id number] [address] [place] [address], [place] [address] Feb, [facility] [address] [id number] [address] [place] [address], [place] [address] Feb, [facility] [address] [id number] [address] [place] [address], [place] [address] Feb, [facility] [address] [id number] [address] [place] [address], [place] [address] Feb, [facility] [address] [id number] [address] [place] [address], [place] [address] 18 Feb, 2014 [facility] [address] [id number] [address] [place] [address], [place] [address] Feb, [facility] [address] [id number] [address] [place] [address], [place] [address] Feb, [facility] [address] [id number] [address] [place] [address], [place] [address] Feb, [facility] [address] [id number] [address] [place] [address], [place] [address] Jan, [facility] [address] [id number] [address] [place] [address], [place] [address] Jan, [facility] [address] [id number] [address] [place] [address], [place] [address] Jan, [facility] [address] [id number] [address] [place] [address], [place] [address] Jan, [facility] [address] [id number] [address] [place] [address], [place] [address] Jan, [facility] [address] [id number] [address] [place] [address], [place] [address] Jan, [facility] [address] [id number] [address] [place] [address], [place] [address] Jan, [facility] [address] [id number] [address] [place] [address], [place] [address] Jan, [facility] [address] [id number] [address] [place] [address], [place] [address] Jan, [facility] [address] [id number] [address] [place] [address], [place] [address] Jan, [facility] [address] [id number] [address] [place] [address], [place] [address] 19 Dec, 2013 [facility] [address] [id number] [address] [place] [address], [place] [address] 19 Dec, 2013 [facility] [address] [id number] [address] [place] [address] Dec, [facility] [address] [id number] [address] [place] [address] Dec, [facility] [address] [id number] [facility] [place] [address] Nov, [facility] [address] [id number] [address] [place] [address], [place] [address] Nov, [facility] [address] [id number] [address] [place] [address], [place] [address] Nov, [facility] [address] [id number] [address] [place] [address], [place] [address] Nov, [facility] [address] [id number] [address] [place] [address], [place] [address] Nov, [facility] [address] [id number] [address] [place] [address], [place] [address] Nov, [facility] [address] [id number] [address] [place] [address], [place] [address] Nov, [facility] [address] [id number] [address] [place] [address], [place] [address] Nov, [facility] [address] [id number] [address] [place] [address], [place] [address] Nov, [facility] [address] [id number] [address] [place] [address], [place] [address] Oct, [facility] [address] [id number] [address] [place] [address], [place] [address] Oct, [facility] [address] [id number] [address] [place] [address], [place] [address] Sep, [facility] [address] [id number] [address] [place] [address], [place] [address] Sep, [facility] [address] [id number] [address] [place] [address], [place] [address] Sep, [facility] [address] [id number] [address] [place] [address] Sep, [facility] [address] [id number] [address] [place] [address], [place] [address] Sep, [facility] [address] [id number] [address] [place] [address], [place] [address] Sep, [facility] [address] [id number] [address] [place] [address], [place] [address] Sep, [facility] [address] [id number] [address] [place] [address], [place] [address] Sep, [facility] [address] [id number] [address] [place] [address], [place] [address] Sep, [facility] [address] [id number] [address] [place] [address], [place] [address] Sep, [facility] [address] [id number] [address] [place] [address], [place] [address] Sep, [facility] [address] [id number] [address] [place] [address], [place] [address] Sep, [facility] [address] [id number] [address] [place] [address], [place] [address] Sep, [facility] [address] [id number] [address] [place] [address], [place] [address] Sep, [facility] [address] [id number] [address] [place] [address], [place] [address] August, [facility] [address] [id number] [address] [place] [address], [place] [address] August, [facility] [address] [id number] [address] [place] [address], [place] [address] August, [facility] [address] [id number] [address] [place] [address], [place] [address] August, [facility] [address] [id number] [address] [place] [address], [place] [address] Jul, [facility] [address] [id number] [address] [place] [address], [place] [address] Jul, [facility] [address] [id number] [address] [place] [address], [place] [address] Jul, [facility] [address] [id number] [address] [place] [address], [place] [address] Jul, [facility] [address] [id number] [address] [place] [address], [place] [address] Jun, [facility] [address] [id number] [address] [place] [address], [place] [address] Jun, [facility] [address] [id number] [address] [place] [address], [place] [address] May, [facility] [address] [id number] [address] [place] [address], [place] [address] May, [facility] [address] [id number] [address] [place] [address], [place] [address] May, [facility] [address] [id number] [address] [place] [address], [place] [address] May, [facility] [address] [id number] [address] [place] [address], [place] [address] May, [facility] [address] [id number] [address] [place] [address], [place] [address] May, [facility] [address] [id number] [address] [place] [address], [place] [address] May, [facility] [address] [id number] [address] [place] [address], [place] [address] May, [facility] [address] [id number] [address] [place] [address], [place] [address] May, [facility] [address] [id number] [address] [place] [address], [place] [address] Apr, [facility] [address] [id number] [address] [place] [address], [place] [address] Apr, [facility] [address] [id number] [address] [place] [address], [place] [address] Apr, [facility] [address] [id number] [address] [place] [address], [place] [address] Apr, [facility] [address] [id number] [address] [place] [address], [place] [address] Apr, [facility] [address] [id number] [address] [place] [address], [place] [address] Mar, [facility] [address] [id number] [address] [place] [address], [place] [address] Mar, [facility] [address] [id number] [address] [place] [address], [place] [address] Feb, [facility] [address] [id number] [address] [place] [address], [place] [address] Feb, [facility] [address] [id number] [address] [place] [address], [place] [address] Feb, [facility] [address] [id number] [address] [place] [address], [place] [address] Feb, [facility] [address] [id number] [address] [place] [address], [place] [address] Feb, [facility] [address] [id number] [address] [place] [address], [place] [address] Feb, [facility] [address] [id number] [address] [place] [address], [place] [address] Feb, [facility] [address] [id number] [address] [place] [address], [place] [address] Feb, [facility] [address] [id number] [address] [place] [address], [place] [address] Feb, [facility] [address] [id number] [address] [place] [address], [place] [address] Jan, [facility] [address] [id number] [address] [place] [address], [place] [address] Jan, [facility] [address] [id number] [address] [place] [address], [place] [address] Jan, [facility] [address] [id number] [address] [place] [address], [place] [address] Jan, [facility] [address] [id number] [address] [place] [address], [place] [address] Jan, [facility] [address] [id number] [address] [place] [address], [place] [address] Dec, [facility] [address] [id number] [address] [place] [address], [place] [address] Dec, [facility] [address] [id number] [address] [place] [address], [place] [address] Nov, [facility] [address] [id number] [address] [place] [address], [place] [address] Nov, [facility] [address] [id number] [address] [place] [address], [place] [address] Oct, [facility] [address] [id number] [address] [place] [address], [place] [address] Oct, [facility] [address] [id number] [address] [place] [address], [place] [address] Oct, [facility] [address] [id number] [address] [place] [address], [place] [address] Sep, [facility] [address] [id number] [address] [place] [address], [place] [address] Sep, [facility] [address] [id number] [address] [place] [address], [place] [address] Sep, [facility] [address] [id number] [address] [place] [address], [place] [address] August, [facility] [address] [id number] [address] [place] [address], [place] [address] August, [facility] [address] [id number] [address] [place] [address], [place] [address] August, [facility] [address] [id number] [address] [place] [address], [place] [address] August, [facility] [address] [id number] [address] [place] [address], [place] [address] Jul, [facility] [address] [id number] [address] [place] [address], [place] [address] Jun, [facility] [address] [id number] [address] [place] [address], [place] [address] Jun, [facility] [address] [id number] [address] [place] [address], [place] [address] Jun, [facility] [address] [id number] [address] [place] [address], [place] [address] May, [facility] [address] [id number] [address] [place] [address], [place] [address] May, [facility] [address] [id number] [address] [place] [address], [place] [address] May, [facility] [address] [id number] [address] [place] [address], [place] [address] May, [facility] [address] [id number] [address] [place] [address], [place] [address] Apr, [facility] [address] [id number] [address] [place] [address], [place] [address] Apr, [facility] [address] [id number] [address] [place] [address], [place] [address] 15 Apr, 2012 [facility] [address] [id number] [address] [place] [address], [place] [address] Apr, [facility] [address] [id number] [address] [place] [address], [place] [address] Apr, [facility] [address] [id number] [address] [place] [address], [place] [address] Mar, [facility] [address] [id number] [address] [place] [address], [place] [address] Mar, [facility] [address] [id number] [address] [place] [address], [place] [address] Mar, [facility] [address] [id number] [address] [place] [address], [place] [address] Mar, [facility] [address] [id number] [address] [place] [address], [place] [address] Mar, [facility] [address] [id number] [address] [place] [address], [place] [address] Mar, [facility] [address] [id number] [address] [place] [address], [place] [address] Mar, [facility] [address] [id number] [address] [place] [address], [place] [address] Feb, [facility] [address] [id number] [address] [place] [address], [place] [address] Feb, [facility] [address] [id number] [address] [place] [address], [place] [address] Feb, [facility] [address] [id number] [address] [place] [address], [place] [address] Feb, [facility] [address] [id number] [address] [place] [address], [place] [address] Feb, [facility] [address] [id number] [address] [place] [address], [place] [address] Feb, [facility] [address] [id number] [address] [place] [address], [place] [address] Feb, [facility] [address] [id number] [address] [place] [address], [place] [address] Feb, [facility] [address] [id number] [address] [place] [address], [place] [address] Jan, [facility] [address] [id number] [address] [place] [address], [place] [address] Jan, [facility] [address] [id number] [address] [place] [address], [place] [address] Jan, [facility] [address] [id number] [address] [place] [address], [place] [address] Jan, [facility] [address] [id number] [address] [place] [address], [place] [address] 27 Dec, 2011 [facility] [address] [id number] [address] [place] [address], [place] [address] 25 Dec, 2011 [facility] [address] [id number] [address] [place] [address], [place] [address] 18 Dec, 2011 [facility] [address] [id number] [address] [place] [address], [place] [address] 13 Dec, 2011 [facility] [address] [id number] [address] [place] [address], [place] [address] Dec, [facility] [address] [id number] [address] [place] [address], [place] [address] Oct, [facility] [address] [id number] [address] [place] [address], [place] [address] Oct, [facility] [address] [id number] [address] [place] [address], [place] [address] Sep, [facility] [address] [id number] [address] [place] [address], [place] [address] Sep, [facility] [address] [id number] [address] [place] [address], [place] [address] August, [facility] [address] [id number] [address] [place] [address], [place] [address] August, [facility] [address] [id number] [address] [place] [address], [place] [address] 04 Jul, 2011 [facility] [address] [id number] [address] [place] [address], [place] [address] 28 Jun, 2011 [facility] [address] [id number] [address] [place] [address], [place] [address] 23 Jun, 2011 [facility] [address] [id number] [address] [place] [address], [place] [address] 23 Jun, 2011 [facility] [address] [id number] [address] [place] [address], [place] [address] 19 Jun, 2011 [facility] [address] [id number] [address] [place] [address], [place] [address] 2011 [facility] [address] [id number] [address] [place] [address], [place] [address] 24 May, 2011 [facility] [address] [id number] [address] [place] [address], [place] [address] 22 May, 2011 [facility] [address] [id number] [address] [place] [address], [place] [address] 20 May, 2011 [facility] [address] [id number] [address] [place] [address], [place] [address] 14 May, 2011 [facility] [address] [id number] [address] [place] [address], [place] [address] 13 May, 2011 [facility] [address] [id number] [address] [place] [address], [place] [address] 03 May, 2011 [facility] [address] [id number] [address] [place] [address], [place] [address] May, [facility] [address] [id number] [address] [place] [address], [place] [address] 02 May, 2011 [facility] [address] [id number] [address] [place] [address], [place] [address] Apr, [facility] [address] [id number] [address] [place] [address], [place] [address] Mar, [facility] [address] [id number] [address] [place] [address] Mar, [facility] [address] [id number] [address] [place] [address] Mar, [facility] [address] [id number] [address] [place] [address] 15 Mar, 2011 [facility] [address] [id number] [address] [place] [address] Mar, [facility] [address] [id number] [address] [place] [address] Jan, [facility] [address] [id number] [address] [place] [address] Jan, [facility] [address] [id number] [address] [place] [address] Jan, [facility] [address] [id number] [address] [place] [address] August, [facility] [address] [id number] [address] [place] [address] Mar, [facility] [address] [id number] [address] [place] [address] Feb, [facility] [address] [id number] [address] [place] [address] 14 Jan, 2010 [facility] [address] [id number] [address] [place] [address] Jan, IMMUNIZATIONS No Known Immunizations SOCIAL HISTORY Never Assessed REASON FOR VISIT PLAN OF CARE VITAL SIGNS Height 66 in 2013-03-08 Weight 354.8 lbs 2013-03-08 Temperature 97.8 degrees Fahrenheit 2013-03-08 Heart Rate 76 bpm 2013-03-08 Respiratory Rate 24 2013-03-08 Blood pressure systolic 116 mmHg 2013-03-08 Blood pressure diastolic 74 mmHg 2013-03-08 MEDICATIONS Unknown Medications RESULTS No Results PROCEDURES Procedure Date Ordered Result Body Site GLYCATED HEMOGLOBIN TEST Mar 08, 2013 LIPID PANEL Mar 08, 2013 COMPREHEN METABOLIC PANEL Mar 08, 2013 VENIPUNCT, ROUTINE* Mar 08, 2013 INSTRUCTIONS MEDICATIONS ADMINISTERED No Known Medications [...]
--- OUTSIDE RECORDS SUMMARY | 2019-09-18 18:55 | XMS REPORT ---
Author Author Talia HUDSON Organization [facility] Address [address] [place] [address] Care Team Providers Care Mold Clamper Name Role Phone KATIE HUDSON Unavailable PROBLEMS Type Condition ICD9-CM Code KOW59-DF Code Onset Dates Condition S tatus SNOMED Code Problem CAD (coronary artery disease) I25.10 Active 41143980 Problem Osteoarthritis of knees, bilateral M17.0 Active 717907569 Problem Essential hypertension I10 Active 24735461 Problem Diabetes E11.9 Active 35737888 Problem Arthritis M19.90 Active 4966537 Problem Morbid obesity E66.01 Active 23926 6002 Problem Hyperlipemia E78.5 Active 6648415 4 ALLERGIES No Information ENCOUNTERS Encounter Location Date Diagnosis [facility] [address] [id number] [address] [place] [address] August, [facility] [address] [facility] [id number] [address] [place] [address] August, [facility] [address] [facility] [id number] [address] [place] [address] August, [facility] [address] [facility] [id number] [address] [place] [address] August, [facility] [address] [facility] [id number] [address] [place] [address] August, Diabetes E11.9 [facility] [address] [facility] [id number] [address] [place] [address] August, [facility] [address] [facility] [id number] [address] [place] [address] August, [facility] [address] [facility] [id number] [address] [place] [address] August, [facility] [address] [id number] [address] [place] [address], [place] [address] Jul, [facility] [address] [id number] [address] [place] [address], [place] [address] Jul, [facility] [address] [id number] [address] [place] [address] Jul, [facility] [address] [id number] [address] [place] [address] Jul, [facility] [address] [id number] [address] [place] [address] Jun, [facility] [address] [id number] [address] [place] [address], [place] [address] Jun, [facility] [address] [facility] [id number] [address] [place] [address] Jun, Diabetes E11.9 ; Skin infect ion L08.9 and Essential hypertension I10 [facility] [address] [id number] [address] [place] [address], [place] [address] May, [facility] [address] [id number] [address] [place] [address] May, [facility] [address] [facility] [id number] [address] [place] [address] May, [facility] [address] [id number] [address] [place] [address] Apr, [facility] [address] [id number] [address] [place] [address] Mar, [facility] [address] [id number] [address] [place] [address] Mar, [facility] [address] [facility] [id number] [address] [place] [address] Feb, [facility] [address] [facility] [id number] [address] [place] [address] Nov, [place] [address] [address] Nov, Diabetes E11.9 and Syncope, unspecified syncope type R55 [place] [address] [address] Nov, Osteoarthritis of knees, natan ateral M17.0 [place] [address] [address] Oct, Diabetes E11.9 ; CAD (guardado ry artery disease) I25.10 ; Essential hypertension I10 and Hyperlipemia E78.5 [place] [address] [address] Sep, [place] [address] [address] Jul, [place] [address] [address] Apr, [place] [address] [address] Mar, Pustular lesion L08.9 and En counter for immunization Z23 [place] [address] [address] Feb, [place] [address] [address] Dec, [place] [address] [address] Dec, [place] [address] [address] Dec, Diabetes E11.9 ; Essential h ypertension I10 ; Arthritis M19.90 ; Urinary frequency R35.0 ; Routine adult health maintenance Z00.00 and BMI 45.0- 49.9, adult Z68.42 [place] [address] [address] Dec, [place] [address] [address] Dec, [place] [address] [address] Oct, [place] [address] [address] Sep, Diabetes E11.9 [place] [address] [address] Sep, Diabetes E11.9 ; Hyperlipemi a E78.5 ; CAD (coronary artery disease) I25.10 ; Essential hypertension I10 and BMI 45.0-49.9, adult Z68.42 [place] [address] [address] Sep, [place] [address] [address] August, [place] [address] [address] Jan, Dysuria R30.[address] [address] Jan, Dysuria R30.0 [place] [address] [address] Jan, Osteoarthritis of knees, natan ateral M17.0 [place] [address] [address] Nov, Dysuria R30.0 [place] [address] [address] Oct, Blood in urine R31.9 ; Dysur ia R30.0 ; Pharyngeal dysphagia R13.13 ; Acute cystitis with hematuria N30.01 ; CAD (coronary artery disease) I25.10 and Diabetes E11.9 [place] [address] [address] Oct, [facility] [address] [id number] [address] [place] [address] Sep, Arthritis M19.90 ; Blood in urine R31.9 ; Diabetes E11.9 ; Acute cystitis with hematuria N30.01 and Pharyngoesophageal dysphagia R13.14 [facility] [address] [facility] [id number] [address] [place] [address] Sep, Osteoarthritis of knees, natan ateral M17.0 [facility] [address] [id number] [address] [place] [address] Sep, Osteoarthritis of knees, natan ateral M17.0 [facility] [address] [facility] [id number] [address] [place] [address] August, Arthritis M19.90 [facility] [address] [facility] [id number] [address] [place] [address] Jul, Arthritis M19.90 [facility] [address] [id number] [address] [place] [address] Jun, Arthritis M19.90 [facility] [address] [facility] [id number] [address] [place] [address] Jun, [facility] [address] [facility] [id number] [address] [place] [address] Jun, [facility] [address] [facility] [id number] [address] [place] [address] May, Diabetes E11.9 ; Dysuria R30 .0 and Arthritis M19.90 [facility] [address] [id number] [address] [place] [address] Apr, [facility] [address] [facility] [id number] [address] [place] [address] Apr, Arthritis M19.90 [facility] [address] [facility] [id number] [address] [place] [address] Mar, Arthritis M19.90 [facility] [address] [id number] [address] [place] [address] Feb, [facility] [address] [id number] [address] [place] [address] Jan, [facility] [address] [id number] [address] [place] [address] Dec, Diabetes E11.9 and Arthritis M19.90 [facility] [address] [id number] [address] [place] [address] Dec, [facility] [address] [id number] [address] [place] [address] Nov, Arthritis M19.90 [facility] [address] [id number] [address] [place] [address] Nov, [facility] [address] [facility] [id number] [address] [place] [address] Oct, Arthritis M19.90 [facility] [address] [id number] [address] [place] [address] Sep, Osteoarthritis of knees, natan ateral M17.0 [facility] [address] [facility] [id number] [address] [place] [address] Sep, Osteoarthritis of knees, natan ateral M17.0 [facility] [address] [facility] [id number] [address] [place] [address] August, Arthritis M19.90 [facility] [address] [id number] [address] [place] [address] August, [facility] [address] [facility] [id number] [address] [place] [address] Jul, Hyperlipemia E78.5 [facility] [address] [facility] [id number] [address] [place] [address] Jul, Encounter for well woman exa m Z01.419 ; Morbid obesity E66.01 ; Encounter for screening for malignant neoplasm of cervix Z12.4 and Encounter for screening mammogram for breast cancer Z12.31 [facility] [address] [id number] [address] [place] [address] Jul, Arthritis M19.90 ; Diabetes E11.9 ; Blood in urine R31.9 and UTI (urinary tract infection) N39.0 [facility] [address] [id number] [address] [place] [address] Jul, [facility] [address] [id number] [address] [place] [address] Jun, Arthritis M19.90 [facility] [address] [id number] [address] [place] [address] May, Arthritis M19.90 [facility] [address] [id number] [address] [place] [address] May, [facility] [address] [id number] [address] [place] [address] Apr, [facility] [address] [id number] [address] [place] [address] Apr, Arthritis M19.90 ; Diabetes E11.9 and Morbid obesity E66.01 [facility] [address] [id number] [address] [place] [address] Apr, [facility] [address] [id number] [address] [place] [address] Apr, Dyspareunia N94.1 [facility] [address] [id number] [address] [place] [address] Apr, [facility] [address] [id number] [address] [place] [address] Apr, [facility] [address] [id number] [address] [place] [address] 14 Apr, 2015 Osteoarthritis of knees, natan ateral M17.0 [facility] [address] [id number] [address] [place] [address] Apr, Diabetes E11.9 and CAD (elysia nary artery disease) I25.10 [facility] [address] [id number] [address] [place] [address] Mar, [facility] [address] [id number] [address] [place] [address] Feb, [facility] [address] [id number] [address] [place] [address] Jan, [facility] [address] [id number] [address] [place] [address] Jan, [facility] [address] [id number] [address] [place] [address] Jan, [facility] [address] [id number] [address] [place] [address] Jan, Osteoarthritis of knees, natan ateral M17.0 [facility] [address] [id number] [address] [place] [address] Dec, [facility] [address] [id number] [address] [place] [address] Dec, [facility] [address] [id number] [address] [place] [address] Dec, [facility] [address] [id number] [address] [place] [address] Dec, Diabetes mellitus 250.00 and UTI (urinary tract infection) 599.0 [facility] [address] [id number] [address] [place] [address] Dec, [facility] [address] [id number] [address] [place] [address] Nov, [facility] [address] [id number] [address] [place] [address] Oct, [facility] [address] [id number] [address] [place] [address] Oct, [facility] [address] [id number] [address] [place] [address], [place] [address] Oct, [facility] [address] [id number] [address] [place] [address], [place] [address] Oct, [facility] [address] [id number] [address] [place] [address], [place] [address] Oct, [facility] [address] [id number] [address] [place] [address], [place] [address] Sep, [facility] [address] [id number] [address] [place] [address], [place] [address] August, [facility] [address] [id number] [address] [place] [address], [place] [address] August, [facility] [address] [id number] [address] [place] [address], [place] [address] August, [facility] [address] [id number] [address] [place] [address], [place] [address] Jul, [facility] [address] [id number] [address] [place] [address], [place] [address] Jul, [facility] [address] [id number] [address] [place] [address], [place] [address] Jul, [facility] [address] [id number] [address] [place] [address], [place] [address] Jun, [facility] [address] [id number] [address] [place] [address], [place] [address] Jun, [facility] [address] [id number] [address] [place] [address], [place] [address] Jun, [facility] [address] [id number] [address] [place] [address], [place] [address] Jun, [facility] [address] [id number] [address] [place] [address], [place] [address] Jun, [facility] [address] [id number] [address] [place] [address], [place] [address] Jun, [facility] [address] [id number] [address] [place] [address], [place] [address] Jun, [facility] [address] [id number] [address] [place] [address], [place] [address] Jun, [facility] [address] [id number] [address] [place] [address], [place] [address] May, 2014 [facility] [address] [id number] [address] [place] [address], [place] [address] May, 2014 [facility] [address] [id number] [address] [place] [address], [place] [address] May, 2014 [facility] [address] [id number] [address] [place] [address], [place] [address] May, 2014 [facility] [address] [id number] [address] [place] [address], [place] [address] May, 2014 [facility] [address] [id number] [address] [place] [address], [place] [address] May, 2014 [facility] [address] [id number] [address] [place] [address], [place] [address] May, 2014 [facility] [address] [id number] [address] [place] [address], [place] [address] May, 2014 [facility] [address] [id number] [address] [place] [address], [place] [address] May, 2014 [facility] [address] [id number] [address] [place] [address], [place] [address] May, 2014 [facility] [address] [id number] [address] [place] [address], [place] [address] May, 2014 [facility] [address] [id number] [address] [place] [address], [place] [address] May, 2014 [facility] [address] [id number] [address] [place] [address], [place] [address] Apr, [facility] [address] [id number] [address] [place] [address], [place] [address] Apr, [facility] [address] [id number] [address] [place] [address], [place] [address] Mar, [facility] [address] [id number] [address] [place] [address], [place] [address] Mar, [facility] [address] [id number] [address] [place] [address], [place] [address] Mar, [facility] [address] [id number] [address] [place] [address], [place] [address] Mar, [facility] [address] [id number] [address] [place] [address], [place] [address] Mar, [facility] [address] [id number] [address] [place] [address], [place] [address] Mar, [facility] [address] [id number] [address] [place] [address], [place] [address] Feb, [facility] [address] [id number] [address] [place] [address], [place] [address] Feb, [facility] [address] [id number] [address] [place] [address], [place] [address] Feb, [facility] [address] [id number] [address] [place] [address], [place] [address] Feb, [facility] [address] [id number] [address] [place] [address], [place] [address] Feb, [facility] [address] [id number] [address] [place] [address], [place] [address] Feb, [facility] [address] [id number] [address] [place] [address], [place] [address] Feb, [facility] [address] [id number] [address] [place] [address], [place] [address] Feb, [facility] [address] [id number] [address] [place] [address], [place] [address] Feb, [facility] [address] [id number] [address] [place] [address], [place] [address] Jan, [facility] [address] [id number] [address] [place] [address], [place] [address] Jan, [facility] [address] [id number] [address] [place] [address], [place] [address] Jan, [facility] [address] [id number] [address] [place] [address], [place] [address] Jan, [facility] [address] [id number] [address] [place] [address], [place] [address] Jan, [facility] [address] [id number] [address] [place] [address], [place] [address] Jan, [facility] [address] [id number] [address] [place] [address], [place] [address] Jan, [facility] [address] [id number] [address] [place] [address], [place] [address] Jan, [facility] [address] [id number] [address] [place] [address], [place] [address] Jan, [facility] [address] [id number] [address] [place] [address], [place] [address] Jan, [facility] [address] [id number] [address] [place] [address], [place] [address] 19 Dec, 2013 [facility] [address] [id number] [address] [place] [address], [place] [address] 19 Dec, 2013 [facility] [address] [id number] [address] [place] [address], [place] [address] 10 Dec, 2013 [facility] [address] [id number] [address] [place] [address], [place] [address] Dec, [facility] [address] [id number] [address] [place] [address], [place] [address] Nov, [facility] [address] [id number] [facility] [place] [address] Nov, [facility] [address] [id number] [facility] [place] [address] Nov, [facility] [address] [id number] [facility] [place] [address] Nov, [facility] [address] [id number] [facility] [place] [address] Nov, [facility] [address] [id number] [facility] [place] [address] Nov, [facility] [address] [id number] [address] [place] [address], [place] [address] Nov, [facility] [address] [id number] [address] [place] [address], [place] [address] Nov, [facility] [address] [id number] [address] [place] [address], [place] [address] Nov, [facility] [address] [id number] [address] [place] [address], [place] [address] Oct, [facility] [address] [id number] [address] [place] [address], [place] [address] Oct, [facility] [address] [id number] [address] [place] [address], [place] [address] Sep, [facility] [address] [id number] [address] [place] [address], [place] [address] Sep, [facility] [address] [id number] [address] [place] [address], [place] [address] Sep, [facility] [address] [id number] [address] [place] [address], [place] [address] Sep, [facility] [address] [id number] [address] [place] [address], [place] [address] Sep, [facility] [address] [id number] [address] [place] [address], [place] [address] Sep, [facility] [address] [id number] [facility] [place] [address] Sep, [facility] [address] [id number] [address] [place] [address], [place] [address] Sep, [facility] [address] [id number] [address] [place] [address], [place] [address] Sep, [facility] [address] [id number] [address] [place] [address], [place] [address] Sep, [facility] [address] [id number] [address] [place] [address], [place] [address] Sep, [facility] [address] [id number] [address] [place] [address], [place] [address] Sep, [facility] [address] [id number] [address] [place] [address], [place] [address] Sep, [facility] [address] [id number] [address] [place] [address], [place] [address] Sep, [facility] [address] [id number] [address] [place] [address], [place] [address] August, [facility] [address] [id number] [address] [place] [address], [place] [address] August, [facility] [address] [id number] [address] [place] [address], [place] [address] August, [facility] [address] [id number] [address] [place] [address], [place] [address] August, [facility] [address] [id number] [address] [place] [address], [place] [address] Jul, [facility] [address] [id number] [address] [place] [address], [place] [address] Jul, [facility] [address] [id number] [address] [place] [address], [place] [address] Jul, [facility] [address] [id number] [address] [place] [address], [place] [address] Jul, [facility] [address] [id number] [address] [place] [address], [place] [address] Jun, [facility] [address] [id number] [address] [place] [address], [place] [address] Jun, [facility] [address] [id number] [address] [place] [address], [place] [address] May, [facility] [address] [id number] [address] [place] [address], [place] [address] May, [facility] [address] [id number] [address] [place] [address], [place] [address] May, [facility] [address] [id number] [address] [place] [address], [place] [address] May, [facility] [address] [id number] [address] [place] [address], [place] [address] May, [facility] [address] [id number] [address] [place] [address], [place] [address] May, [facility] [address] [id number] [address] [place] [address], [place] [address] May, [facility] [address] [address] [id number] [address] [place] [address], [place] [address] May, [facility] [address] [id number] [address] [place] [address], [place] [address] May, [facility] [address] [id number] [address] [place] [address], [place] [address] Apr, [facility] [address] [id number] [address] [place] [address], [place] [address] Apr, [facility] [address] [id number] [address] [place] [address], [place] [address] Apr, [facility] [address] [id number] [address] [place] [address], [place] [address] Apr, [facility] [address] [id number] [address] [place] [address], [place] [address] Apr, [facility] [address] [id number] [address] [place] [address], [place] [address] Mar, [facility] [address] [id number] [address] [place] [address], [place] [address] Mar, [facility] [address] [id number] [address] [place] [address], [place] [address] Feb, [facility] [address] [id number] [address] [place] [address], [place] [address] Feb, [facility] [address] [id number] [address] [place] [address], [place] [address] Feb, [facility] [address] [id number] [address] [place] [address], [place] [address] Feb, [facility] [address] [id number] [address] [place] [address], [place] [address] Feb, [facility] [address] [id number] [address] [place] [address], [place] [address] Feb, [facility] [address] [id number] [address] [place] [address], [place] [address] Feb, [facility] [address] [id number] [address] [place] [address], [place] [address] Feb, [facility] [address] [id number] [address] [place] [address] Feb, [facility] [address] [id number] [address] [place] [address], [place] [address] Jan, [facility] [address] [id number] [address] [place] [address], [place] [address] Jan, [facility] [address] [id number] [address] [place] [address], [place] [address] Jan, [facility] [address] [id number] [address] [place] [address], [place] [address] Jan, [facility] [address] [id number] [address] [place] [address], [place] [address] Jan, [facility] [address] [id number] [address] [place] [address], [place] [address] Dec, [facility] [address] [id number] [address] [place] [address], [place] [address] Dec, [facility] [address] [id number] [address] [place] [address], [place] [address] Nov, [facility] [address] [id number] [address] [place] [address], [place] [address] Nov, [facility] [address] [id number] [address] [place] [address], [place] [address] Oct, [facility] [address] [id number] [address] [place] [address], [place] [address] Oct, [facility] [address] [id number] [address] [place] [address], [place] [address] Oct, [facility] [address] [id number] [address] [place] [address], [place] [address] Sep, [facility] [address] [id number] [address] [place] [address], [place] [address] Sep, [facility] [address] [id number] [address] [place] [address], [place] [address] Sep, [facility] [address] [id number] [address] [place] [address], [place] [address] August, [facility] [address] [id number] [address] [place] [address], [place] [address] August, [facility] [address] [id number] [address] [place] [address], [place] [address] August, [facility] [address] [id number] [address] [place] [address], [place] [address] August, [facility] [address] [id number] [address] [place] [address], [place] [address] Jul, [facility] [address] [id number] [address] [place] [address], [place] [address] Jun, [facility] [address] [id number] [address] [place] [address], [place] [address] 08 Jun, 2012 [facility] [address] [id number] [address] [place] [address], [place] [address] Jun, [facility] [address] [id number] [address] [place] [address], [place] [address] May, [facility] [address] [id number] [address] [place] [address], [place] [address] May, [facility] [address] [id number] [address] [place] [address], [place] [address] May, [facility] [address] [id number] [address] [place] [address], [place] [address] May, [facility] [address] [id number] [address] [place] [address], [place] [address] Apr, [facility] [address] [id number] [address] [place] [address], [place] [address] Apr, [facility] [address] [id number] [address] [place] [address], [place] [address] 15 Apr, 2012 [facility] [address] [id number] [address] [place] [address], [place] [address] 14 Apr, 2012 [facility] [address] [id number] [address] [place] [address], [place] [address] Apr, [facility] [address] [id number] [address] [place] [address], [place] [address] Mar, [facility] [address] [id number] [address] [place] [address], [place] [address] Mar, [facility] [address] [id number] [address] [place] [address], [place] [address] Mar, [facility] [address] [id number] [address] [place] [address], [place] [address] Mar, [facility] [address] [id number] [address] [place] [address], [place] [address] Mar, [facility] [address] [id number] [address] [place] [address], [place] [address] Mar, [facility] [address] [id number] [address] [place] [address], [place] [address] Mar, [facility] [address] [id number] [address] [place] [address], [place] [address] Feb, [facility] [address] [id number] [address] [place] [address], [place] [address] Feb, [facility] [address] [id number] [address] [place] [address], [place] [address] Feb, [facility] [address] [id number] [address] [place] [address], [place] [address] Feb, [facility] [address] [id number] [address] [place] [address], [place] [address] Feb, [facility] [address] [id number] [address] [place] [address], [place] [address] Feb, [facility] [address] [id number] [address] [place] [address], [place] [address] Feb, [facility] [address] [id number] [address] [place] [address], [place] [address] Feb, [facility] [address] [id number] [address] [place] [address], [place] [address] Jan, [facility] [address] [id number] [address] [place] [address], [place] [address] Jan, [facility] [address] [id number] [address] [place] [address] Jan, [facility] [address] [id number] [address] [place] [address], [place] [address] Jan, [facility] [address] [id number] [address] [place] [address], [place] [address] 27 Dec, 2011 [facility] [address] [id number] [address] [place] [address], [place] [address] 25 Dec, 2011 [facility] [address] [id number] [address] [place] [address], [place] [address] 18 Dec, 2011 [facility] [address] [id number] [address] [place] [address], [place] [address] 13 Dec, 2011 [facility] [address] [id number] [address] [place] [address], [place] [address] 11 Dec, 2011 [facility] [address] [id number] [address] [place] [address], [place] [address] Oct, [facility] [address] [id number] [address] [place] [address], [place] [address] Oct, [facility] [address] [id number] [address] [place] [address], [place] [address] Sep, [facility] [address] [id number] [address] [place] [address], [place] [address] Sep, [facility] [address] [id number] [address] [place] [address], [place] [address] August, [facility] [address] [id number] [address] [place] [address], [place] [address] August, [facility] [address] [id number] [address] [place] [address], [place] [address] Jul, [facility] [address] [id number] [address] [place] [address], [place] [address] Jun, [facility] [address] [id number] [address] [place] [address], [place] [address] Jun, [facility] [address] [id number] [address] [place] [address], [place] [address] 23 Jun, 2011 [facility] [address] [id number] [address] [place] [address], [place] [address] 19 Jun, 2011 [facility] [address] [id number] [address] [place] [address], [place] [address] 2011 [facility] [address] [id number] [address] [place] [address], [place] [address] 24 May, 2011 [facility] [address] [id number] [address] [place] [address], [place] [address] 22 May, 2011 [facility] [address] [id number] [address] [place] [address], [place] [address] 20 May, 2011 [facility] [address] [id number] [address] [place] [address], [place] [address] 14 May, 2011 [facility] [address] [id number] [address] [place] [address], [place] [address] 13 May, 2011 [facility] [address] [id number] [address] [place] [address], [place] [address] 03 May, 2011 [facility] [address] [id number] [address] [place] [address], [place] [address] 02 May, 2011 [facility] [address] [id number] [address] [place] [address], [place] [address] 02 May, 2011 [facility] [address] [id number] [address] [place] [address], [place] [address] 05 Apr, 2011 [facility] [address] [id number] [address] [place] [address], [place] [address] Mar, [facility] [address] [id number] [address] [place] [address], [place] [address] Mar, [facility] [address] [id number] [address] [place] [address], [place] [address] Mar, [facility] [address] [id number] [address] [place] [address], [place] [address] 15 Mar, 2011 [facility] [address] [id number] [address] [place] [address] Mar, [facility] [address] [id number] [address] [place] [address] Jan, [facility] [address] [id number] [address] [place] [address] Jan, [facility] [address] [id number] [address] [place] [address] Jan, [facility] [address] [id number] [address] [place] [address] August, [facility] [address] [id number] [address] [place] [address] Mar, [facility] [address] [id number] [address] [place] [address] Feb, [facility] [address] [id number] [address] [place] [address] Jan, [facility] [address] [id number] [address] [place] [address] Jan, IMMUNIZATIONS No Known Immunizations SOCIAL HISTORY [...]
--- OUTSIDE RECORDS SUMMARY | 2019-09-18 18:55 | XMS REPORT ---
Author Author Talia HUDSON Organization [facility] Address [address] [place] [address] Care Team Providers Care Supply Chain Tech Name Role Phone KATIE HUDSON Unavailable PROBLEMS Type Condition ICD9-CM Code ZBE30-PF Code Onset Dates Condition S tatus SNOMED Code Problem CAD (coronary artery disease) I25.10 Active 53528624 Problem Osteoarthritis of knees, bilateral M17.0 Active 143152356 Problem Essential hypertension I10 Active 80201425 Problem Diabetes E11.9 Active 19862961 Problem Arthritis M19.90 Active 7980505 Problem Morbid obesity E66.01 Active 02901 6002 Problem Hyperlipemia E78.5 Active 8495038 4 ALLERGIES No Information ENCOUNTERS Encounter Location Date Diagnosis [facility] [address] [id number] [address] [place] [phone] August, [facility] [address] [facility] [id number] [address] [place] [phone] August, [facility] [address] [facility] [id number] [address] [place] [phone] August, [facility] [address] [facility] [id number] [address] [place] [phone] August, [facility] [address] [id number] [address] [place] [phone] August, [facility] [address] [facility] [id number] [address] [place] [phone] August, [facility] [address] [facility] [id number] [address] [place] [phone] August, [facility] [address] [facility] [id number] [address] [place] [phone] August, Diabetes E11.9 [facility] [address] [id number] [address] [place] [phone] August, [facility] [address] [id number] [address] [place] [address], [place] [address] August, [facility] [address] [id number] [address] [place] [phone] August, [facility] [address] [id number] [address] [place] [phone] Jul, [facility] [address] [id number] [address] [place] [phone] Jul, [facility] [address] [id number] [address] [place] [phone] Jul, [facility] [address] [id number] [address] [place] [phone] Jul, [facility] [address] [id number] [address] [place] [phone] Jun, [facility] [address] [id number] [address] [place] [phone] Jun, [facility] [address] [facility] [id number] [address] [place] [address] Jun, Diabetes E11.9 ; Skin infect ion L08.9 and Essential hypertension I10 [facility] [address] [id number] [address] [place] [phone] May, [facility] [address] [id number] [address] [place] [phone] May, [facility] [address] [id number] [address] [place] [phone] May, [facility] [address] [id number] [address] [place] [phone] Apr, [facility] [address] [id number] [address] [place] [phone] Mar, [facility] [address] [id number] [address] [place] [phone] Mar, [facility] [address] [facility] [id number] [address] [place] [phone] Feb, [facility] [address] [id number] [address] [place] [phone] Nov, [facility] [address] [facility] [id number] [address] [place] [phone] Nov, Diabetes E11.9 and Syncope, unspecified syncope type R55 [facility] [address] [id number] [address] [place] [phone] Nov, Osteoarthritis of knees, natan ateral M17.0 [facility] [address] [facility] [id number] [address] [place] [phone] Oct, Diabetes E11.9 ; CAD (guardado ry artery disease) I25.10 ; Essential hypertension I10 and Hyperlipemia E78.5 [facility] [address] [id number] [address] [place] [phone] Sep, [facility] [address] [facility] [id number] [address] [place] [phone] Jul, [facility] [address] [facility] [id number] [address] [place] [phone] Apr, [facility] [address] [facility] [id number] [address] [place] [phone] Mar, Pustular lesion L08.9 and En counter for immunization Z23 [facility] [address] [facility] [id number] [address] [place] [phone] Feb, [facility] [address] [facility] [id number] [address] [place] [phone] Dec, [facility] [address] [facility] [id number] [address] [place] [phone] Dec, [facility] [address] [facility] [id number] [address] [place] [phone] 25 Dec, 2017 Diabetes E11.9 ; Essential h ypertension I10 ; Arthritis M19.90 ; Urinary frequency R35.0 ; Routine adult health maintenance Z00.00 and BMI 45.0- 49.9, adult Z68.42 [facility] [address] [place] [id number] [address] [place] [phone] 18 Dec, 2017 [facility] [address] [id number] 04 Dec, 2017 [facility] [address] [place] [id number] [place] [phone] Oct, [facility] [address] [address] Sep, Diabetes E11.9 [facility] [address] [place] [id number] [place] [address] Sep, Diabetes E11.9 ; Hyperlipemi a E78.5 ; CAD (coronary artery disease) I25.10 ; Essential hypertension I10 and BMI 45.0-49.9, adult Z68.42 [facility] [address] [address] Sep, [facility] [address] [place] [id number] [address] [place] [phone] August, [facility] [address] [address] Jan, Dysuria R30.0 [facility] [address] [place] [id number] [place] [address] Jan, Dysuria R30.0 [facility] [address] [place] [id number] [place] [phone] Jan, Osteoarthritis of knees, natan ateral M17.0 [facility] [address] [place] [id number] [address] [place] [phone] Nov, Dysuria R30.0 [place] [address] [facility] [id number] [address] [place] [phone] Oct, Blood in urine R31.9 ; Dysur ia R30.0 ; Pharyngeal dysphagia R13.13 ; Acute cystitis with hematuria N30.01 ; CAD (coronary artery disease) I25.10 and Diabetes E11.9 [facility] [address] [facility] [id number] [address] [place] [phone] Oct, [place] [address] [facility] [id number] [address] [place] [phone] Sep, Arthritis M19.90 ; Blood in urine R31.9 ; Diabetes E11.9 ; Acute cystitis with hematuria N30.01 and Pharyngoesophageal dysphagia R13.14 [place] [address] [place] [id number] [address] [place] [address] Sep, Osteoarthritis of knees, natan ateral M17.0 [place] [address] [place] [id number] [address] [place] [phone] Sep, Osteoarthritis of knees, natan ateral M17.0 [place] [address] [place] [id number] [address] [place] [address] August, Arthritis M19.90 [place] [address] [place] [id number] [address] [place] [phone] Jul, Arthritis M19.90 [place] [address] [place] [id number] [address] [place] [phone] Jun, Arthritis M19.90 [place] [address] [facility] [id number] [address] [place] [phone] Jun, [place] [address] [place] [id number] [address] [place] [phone] Jun, [place] [address] [place] [id number] [address] [place] [phone] May, Diabetes E11.9 ; Dysuria R30 .0 and Arthritis M19.90 [place] [address] [place] [id number] [address] [place] [phone] Apr, [facility] [address] [id number] [address] [place] [phone] Apr, Arthritis M19.90 [facility] [address] [id number] [address] [place] [phone] Mar, Arthritis M19.90 [facility] [address] [id number] [address] [place] [phone] Feb, [facility] [address] [id number] [address] [place] [phone] Jan, [facility] [address] [id number] [address] [place] [id number] Dec, Diabetes E11.9 and Arthritis M19.90 [facility] [address] [id number] [address] [place] [phone] Dec, [facility] [address] [id number] [address] [place] [phone] Nov, Arthritis M19.90 [facility] [address] [id number] [address] [place] [phone] Nov, [facility] [address] [id number] [address] [place] [phone] Oct, Arthritis M19.90 [facility] [address] [id number] [address] [place] [phone] Sep, Osteoarthritis of knees, natan ateral M17.0 [facility] [address] [id number] [address] [place] [id number] Sep, Osteoarthritis of knees, natan ateral M17.0 [facility] [address] [facility] [id number] [address] [place] [phone] August, Arthritis M19.90 [facility] [address] [id number] [address] [place] [phone] August, [facility] [address] [facility] [id number] [address] [place] [phone] Jul, Hyperlipemia E78.5 [facility] [address] [facility] [id number] [address] [place] [phone] Jul, Encounter for well woman exa m Z01.419 ; Morbid obesity E66.01 ; Encounter for screening for malignant neoplasm of cervix Z12.4 and Encounter for screening mammogram for breast cancer Z12.31 [facility] [address] [facility] [id number] [address] [place] [phone] Jul, Arthritis M19.90 ; Diabetes E11.9 ; Blood in urine R31.9 and UTI (urinary tract infection) N39.0 [facility] [address] [facility] [id number] [address] [place] [phone] Jul, [place] [address] [facility] [id number] [address] [place] [address] Jun, Arthritis M19.90 [facility] [address] [facility] [id number] [address] [place] [phone] May, Arthritis M19.90 [facility] [address] [facility] [id number] [address] [place] [phone] May, [facility] [address] [facility] [id number] [address] [place] [phone] Apr, [facility] [address] [facility] [id number] [address] [place] [phone] Apr, Arthritis M19.90 ; Diabetes E11.9 and Morbid obesity E66.01 [facility] [address] [facility] [id number] [address] [place] [phone] Apr, [facility] [address] [facility] [id number] [address] [place] [phone] Apr, Dyspareunia N94.1 [facility] [address] [facility] [id number] [address] [place] [phone] Apr, [facility] [address] [id number] [address] [place] [phone] 15 Apr, 2015 [facility] [address] [id number] [address] [place] [phone] Apr, Osteoarthritis of knees, natan ateral M17.0 [facility] [address] [id number] [address] [place] [phone] Apr, Diabetes E11.9 and CAD (elysia nary artery disease) I25.10 [facility] [address] [id number] [address] [place] [phone] Mar, [facility] [address] [id number] [address] [place] [phone] Feb, [facility] [address] [id number] [address] [place] [phone] Jan, [facility] [address] [id number] [address] [place] [phone] Jan, [facility] [address] [id number] [address] [place] [phone] Jan, [facility] [address] [id number] [address] [place] [phone] Jan, Osteoarthritis of knees, natan ateral M17.0 [facility] [address] [id number] [address] [place] [phone] 30 Dec, 2014 [facility] [address] [id number] [address] [place] [id number] 17 Dec, 2014 [facility] [address] [id number] [address] [place] [phone] 10 Dec, 2014 [facility] [address] [id number] [address] [place] [id number] 08 Dec, 2014 Diabetes mellitus 250.00 and UTI (urinary tract infection) 599.0 [facility] [address] [id number] [address] [place] [phone] Dec, [facility] [address] [id number] [address] [place] [address], [place] [address] Nov, [facility] [address] [id number] [address] [place] [address], [place] [address] Oct, [facility] [address] [id number] [address] [place] [address], [place] [address] Oct, [facility] [address] [id number] [address] [place] [address], [place] [address] Oct, [facility] [address] [id number] [address] [place] [address], [place] [address] Oct, [facility] [address] [id number] [address] [place] [address], [place] [address] Oct, [facility] [address] [id number] [address] [place] [address], [place] [address] Sep, [facility] [address] [id number] [address] [place] [address], [place] [address] August, [facility] [address] [id number] [address] [place] [address], [place] [address] August, [facility] [address] [id number] [address] [place] [address], [place] [address] August, [facility] [address] [id number] [address] [place] [address], [place] [address] Jul, [facility] [address] [id number] [address] [place] [address], [place] [address] Jul, [facility] [address] [id number] [address] [place] [address], [place] [address] Jul, [facility] [address] [id number] [address] [place] [address], [place] [address] Jun, [facility] [address] [id number] [address] [place] [address], [place] [address] Jun, [facility] [address] [id number] [address] [place] [address], [place] [address] Jun, [facility] [address] [id number] [address] [place] [address], [place] [address] Jun, [facility] [address] [id number] [address] [place] [address], [place] [address] Jun, [facility] [address] [id number] [address] [place] [address], [place] [address] 16 Jun, 2014 [facility] [address] [id number] [address] [place] [address], [place] [address] 16 Jun, 2014 [facility] [address] [id number] [address] [place] [address], [place] [address] Jun, [facility] [address] [id number] [address] [place] [address], [place] [address] May, 2014 [facility] [address] [id number] [address] [place] [address], [place] [address] May, 2014 [facility] [address] [id number] [address] [place] [address], [place] [address] May, 2014 [facility] [address] [id number] [address] [place] [address], [place] [address] May, 2014 [facility] [address] [id number] [address] [place] [address], [place] [address] May, 2014 [facility] [address] [id number] [address] [place] [address], [place] [address] May, 2014 [facility] [address] [id number] [address] [place] [address], [place] [address] May, 2014 [facility] [address] [id number] [address] [place] [address], [place] [address] May, 2014 [facility] [address] [id number] [address] [place] [address], [place] [address] May, 2014 [facility] [address] [id number] [address] [place] [address], [place] [address] May, [facility] [address] [id number] [address] [place] [address], [place] [address] May, [facility] [address] [id number] [address] [place] [address], [place] [address] May, [facility] [address] [id number] [address] [place] [address], [place] [address] Apr, [facility] [address] [id number] [address] [place] [address], [place] [address] Apr, [facility] [address] [id number] [address] [place] [address], [place] [address] Mar, [facility] [address] [id number] [address] [place] [address], [place] [address] Mar, [facility] [address] [id number] [address] [place] [address], [place] [address] Mar, [facility] [address] [id number] [address] [place] [address], [place] [address] Mar, [facility] [address] [id number] [address] [place] [address], [place] [address] Mar, [facility] [address] [id number] [address] [place] [address], [place] [address] Mar, [facility] [address] [id number] [address] [place] [address], [place] [address] Feb, [facility] [address] [id number] [address] [place] [address], [place] [address] Feb, [facility] [address] [id number] [address] [place] [address], [place] [address] Feb, [facility] [address] [id number] [address] [place] [address], [place] [address] Feb, [facility] [address] [id number] [address] [place] [address], [place] [address] Feb, [facility] [address] [id number] [address] [place] [address], [place] [address] 18 Feb, 2014 [facility] [address] [id number] [address] [place] [address], [place] [address] Feb, [facility] [address] [id number] [address] [place] [address], [place] [address] Feb, [facility] [address] [id number] [address] [place] [address], [place] [address] Feb, [facility] [address] [id number] [address] [place] [address], [place] [address] Jan, [facility] [address] [id number] [address] [place] [address], [place] [address] Jan, [facility] [address] [id number] [address] [place] [address], [place] [address] Jan, [facility] [address] [id number] [address] [place] [address], [place] [address] Jan, [facility] [address] [id number] [address] [place] [address], [place] [address] Jan, [facility] [address] [id number] [address] [place] [address], [place] [address] Jan, [facility] [address] [id number] [address] [place] [address], [place] [address] Jan, [facility] [address] [id number] [address] [place] [address], [place] [address] Jan, [facility] [address] [id number] [address] [place] [address], [place] [address] Jan, [facility] [address] [id number] [address] [place] [address], [place] [address] Jan, [facility] [address] [id number] [address] [place] [address], [place] [address] 19 Dec, 2013 [facility] [address] [id number] [address] [place] [address], [place] [address] 19 Dec, 2013 [facility] [address] [id number] [address] [place] [address] Dec, [facility] [address] [id number] [address] [place] [address] Dec, [facility] [address] [id number] [address] [place] [address] Nov, [facility] [address] [id number] [address] [place] [address], [place] [address] Nov, [facility] [address] [id number] [address] [place] [address], [place] [address] Nov, [facility] [address] [id number] [address] [place] [address], [place] [address] Nov, [facility] [address] [id number] [address] [place] [address], [place] [address] Nov, [facility] [address] [id number] [address] [place] [address], [place] [address] Nov, [facility] [address] [id number] [address] [place] [address], [place] [address] Nov, [facility] [address] [id number] [address] [place] [address], [place] [address] Nov, [facility] [address] [id number] [address] [place] [address], [place] [address] Nov, [facility] [address] [id number] [address] [place] [address], [place] [address] Oct, [facility] [address] [id number] [address] [place] [address], [place] [address] Oct, [facility] [address] [id number] [address] [place] [address], [place] [address] Sep, [facility] [address] [id number] [address] [place] [address], [place] [address] Sep, [facility] [address] [id number] [address] [place] [address], [place] [address] Sep, [facility] [address] [id number] [address] [place] [address] Sep, [facility] [address] [id number] [address] [place] [address], [place] [address] Sep, [facility] [address] [id number] [address] [place] [address], [place] [address] Sep, [facility] [address] [id number] [address] [place] [address], [place] [address] Sep, [facility] [address] [id number] [address] [place] [address], [place] [address] Sep, [facility] [address] [id number] [address] [place] [address], [place] [address] Sep, [facility] [address] [id number] [address] [place] [address], [place] [address] Sep, [facility] [address] [id number] [address] [place] [address], [place] [address] Sep, [facility] [address] [id number] [address] [place] [address], [place] [address] Sep, [facility] [address] [id number] [address] [place] [address], [place] [address] Sep, [facility] [address] [id number] [address] [place] [address], [place] [address] Sep, [facility] [address] [id number] [address] [place] [address], [place] [address] August, [facility] [address] [id number] [address] [place] [address], [place] [address] August, [facility] [address] [id number] [address] [place] [address], [place] [address] August, [facility] [address] [id number] [address] [place] [address], [place] [address] August, [facility] [address] [id number] [address] [place] [address], [place] [address] Jul, [facility] [address] [id number] [address] [place] [address], [place] [address] Jul, [facility] [address] [id number] [address] [place] [address], [place] [address] Jul, [facility] [address] [id number] [address] [place] [address], [place] [address] Jul, [facility] [address] [id number] [address] [place] [address], [place] [address] Jun, [facility] [address] [id number] [address] [place] [address], [place] [address] Jun, [facility] [address] [id number] [address] [place] [address], [place] [address] May, [facility] [address] [id number] [address] [place] [address], [place] [address] May, [facility] [address] [id number] [address] [place] [address], [place] [address] May, [facility] [address] [id number] [address] [place] [address], [place] [address] May, [facility] [address] [id number] [address] [place] [address], [place] [address] May, [facility] [address] [id number] [address] [place] [address], [place] [address] May, [facility] [address] [id number] [address] [place] [address], [place] [address] May, [facility] [address] [id number] [address] [place] [address], [place] [address] May, [facility] [address] [id number] [address] [place] [address], [place] [address] May, [facility] [address] [id number] [address] [place] [address], [place] [address] Apr, [facility] [address] [id number] [address] [place] [address], [place] [address] Apr, [facility] [address] [id number] [address] [place] [address], [place] [address] Apr, [facility] [address] [id number] [address] [place] [address], [place] [address] Apr, [facility] [address] [id number] [address] [place] [address], [place] [address] Apr, [facility] [address] [id number] [address] [place] [address], [place] [address] Mar, [facility] [address] [id number] [address] [place] [address], [place] [address] Mar, [facility] [address] [id number] [address] [place] [address], [place] [address] Feb, [facility] [address] [id number] [address] [place] [address], [place] [address] Feb, [facility] [address] [id number] [address] [place] [address], [place] [address] Feb, [facility] [address] [id number] [address] [place] [address], [place] [address] Feb, [facility] [address] [id number] [address] [place] [address], [place] [address] Feb, [facility] [address] [id number] [address] [place] [address], [place] [address] Feb, [facility] [address] [id number] [address] [place] [address], [place] [address] Feb, [facility] [address] [id number] [address] [place] [address], [place] [address] Feb, [facility] [address] [id number] [address] [place] [address], [place] [address] Feb, [facility] [address] [id number] [address] [place] [address], [place] [address] Jan, [facility] [address] [id number] [address] [place] [address], [place] [address] Jan, [facility] [address] [id number] [address] [place] [address], [place] [address] Jan, [facility] [address] [id number] [address] [place] [address], [place] [address] Jan, [facility] [address] [id number] [address] [place] [address], [place] [address] Jan, [facility] [address] [id number] [address] [place] [address], [place] [address] Dec, [facility] [address] [id number] [address] [place] [address], [place] [address] Dec, [facility] [address] [id number] [address] [place] [address], [place] [address] Nov, [facility] [address] [id number] [address] [place] [address], [place] [address] Nov, [facility] [address] [id number] [address] [place] [address], [place] [address] Oct, [facility] [address] [id number] [address] [place] [address], [place] [address] Oct, [facility] [address] [id number] [address] [place] [address], [place] [address] Oct, [facility] [address] [id number] [address] [place] [address], [place] [address] Sep, [facility] [address] [id number] [address] [place] [address], [place] [address] Sep, [facility] [address] [id number] [address] [place] [address], [place] [address] Sep, [facility] [address] [id number] [address] [place] [address], [place] [address] August, [facility] [address] [id number] [address] [place] [address], [place] [address] August, [facility] [address] [id number] [address] [place] [address], [place] [address] August, [facility] [address] [id number] [address] [place] [address], [place] [address] August, [facility] [address] [id number] [address] [place] [address], [place] [address] Jul, [facility] [address] [id number] [address] [place] [address], [place] [address] Jun, [facility] [address] [id number] [address] [place] [address], [place] [address] Jun, [facility] [address] [id number] [address] [place] [address], [place] [address] Jun, [facility] [address] [id number] [address] [place] [address], [place] [address] May, [facility] [address] [id number] [address] [place] [address], [place] [address] May, [facility] [address] [id number] [address] [place] [address], [place] [address] May, [facility] [address] [id number] [address] [place] [address], [place] [address] May, [facility] [address] [id number] [address] [place] [address], [place] [address] Apr, [facility] [address] [id number] [address] [place] [address], [place] [address] Apr, [facility] [address] [id number] [address] [place] [address], [place] [address] 15 Apr, 2012 [facility] [address] [id number] [address] [place] [address], [place] [address] Apr, [facility] [address] [id number] [address] [place] [address], [place] [address] Apr, [facility] [address] [id number] [address] [place] [address], [place] [address] Mar, [facility] [address] [id number] [address] [place] [address], [place] [address] Mar, [facility] [address] [id number] [address] [place] [address], [place] [address] Mar, [facility] [address] [id number] [address] [place] [address], [place] [address] Mar, [facility] [address] [id number] [address] [place] [address], [place] [address] Mar, [facility] [address] [id number] [address] [place] [address], [place] [address] Mar, [facility] [address] [id number] [address] [place] [address], [place] [address] Mar, [facility] [address] [id number] [address] [place] [address], [place] [address] Feb, [facility] [address] [id number] [address] [place] [address], [place] [address] Feb, [facility] [address] [id number] [address] [place] [address], [place] [address] Feb, [facility] [address] [id number] [address] [place] [address], [place] [address] Feb, [facility] [address] [id number] [address] [place] [address], [place] [address] Feb, [facility] [address] [id number] [address] [place] [address], [place] [address] Feb, [facility] [address] [id number] [address] [place] [address], [place] [address] Feb, [facility] [address] [id number] [address] [place] [address], [place] [address] Feb, [facility] [address] [id number] [address] [place] [address], [place] [address] Jan, [facility] [address] [id number] [address] [place] [address], [place] [address] Jan, [facility] [address] [id number] [address] [place] [address], [place] [address] Jan, [facility] [address] [id number] [address] [place] [address], [place] [address] Jan, [facility] [address] [id number] [address] [place] [address], [place] [address] 27 Dec, 2011 [facility] [address] [id number] [address] [place] [address], [place] [address] 25 Dec, 2011 [facility] [address] [id number] [address] [place] [address], [place] [address] 18 Dec, 2011 [facility] [address] [id number] [address] [place] [address], [place] [address] 13 Dec, 2011 [facility] [address] [id number] [address] [place] [address], [place] [address] Dec, [facility] [address] [id number] [address] [place] [address], [place] [address] Oct, [facility] [address] [id number] [address] [place] [address], [place] [address] Oct, [facility] [address] [id number] [address] [place] [address], [place] [address] Sep, [facility] [address] [id number] [address] [place] [address], [place] [address] Sep, [facility] [address] [id number] [address] [place] [address], [place] [address] August, [facility] [address] [id number] [address] [place] [address], [place] [address] August, [facility] [address] [id number] [address] [place] [address], [place] [address] 04 Jul, 2011 [facility] [address] [id number] [address] [place] [address], [place] [address] 28 Jun, 2011 [facility] [address] [id number] [address] [place] [address], [place] [address] 23 Jun, 2011 [facility] [address] [id number] [address] [place] [address], [place] [address] 23 Jun, 2011 [facility] [address] [id number] [address] [place] [address], [place] [address] 19 Jun, 2011 [facility] [address] [id number] [address] [place] [address], [place] [address] 2011 [facility] [address] [id number] [address] [place] [address], [place] [address] 24 May, 2011 [facility] [address] [id number] [address] [place] [address], [place] [address] 22 May, 2011 [facility] [address] [id number] [address] [place] [address], [place] [address] 20 May, 2011 [facility] [address] [id number] [address] [place] [address], [place] [address] 14 May, 2011 [facility] [address] [id number] [address] [place] [address], [place] [address] 13 May, 2011 [facility] [address] [id number] [address] [place] [address], [place] [address] 03 May, 2011 [facility] [address] [id number] [address] [place] [address], [place] [address] May, [facility] [address] [id number] [address] [place] [address], [place] [address] 02 May, 2011 [facility] [address] [id number] [address] [place] [address], [place] [address] Apr, [facility] [address] [id number] [address] [place] [address], [place] [address] Mar, [facility] [address] [id number] [address] [place] [address] Mar, [facility] [address] [id number] [address] [place] [address] Mar, [facility] [address] [id number] [address] [place] [address] Mar, [facility] [address] [id number] [address] [place] [address] Mar, [facility] [address] [id number] [address] [place] [address] Jan, [facility] [address] [id number] [address] [place] [address] Jan, [facility] [address] [id number] [address] [place] [id number] Jan, [facility] [address] [id number] [address] [place] [address] August, [facility] [address] [id number] [address] [place] [id number] Mar, [facility] [address] [id number] [address] [place] [address] Feb, [facility] [address] [id number] [address] [place] [address] Jan, [facility] [address] [id number] [address] [place] [address] Jan, IMMUNIZATIONS No Known Immunizations SOCIAL HISTORY [...]
--- OUTSIDE RECORDS SUMMARY | 2019-09-18 18:56 | XMS REPORT ---
Author Author Talia HUDSON Organization [facility] Address [address] [place] [address] Care Team Providers Care Optometry Professor Name Role Phone KATIE HUDSON Unavailable PROBLEMS Type Condition ICD9-CM Code RYQ40-PO Code Onset Dates Condition S tatus SNOMED Code Problem CAD (coronary artery disease) I25.10 Active 97049612 Problem Osteoarthritis of knees, bilateral M17.0 Active 983196125 Problem Essential hypertension I10 Active 60095097 Problem Diabetes E11.9 Active 76365212 Problem Arthritis M19.90 Active 6941610 Problem Morbid obesity E66.01 Active 47505 6002 Problem Hyperlipemia E78.5 Active 1687220 4 ALLERGIES No Information ENCOUNTERS Encounter Location Date Diagnosis [facility] [address] [id number] [address] [place] [address] August, [facility] [address] [facility] [id number] [address] [place] [address] August, [facility] [address] [facility] [id number] [address] [place] [address] August, [facility] [address] [facility] [id number] [address] [place] [address] August, [facility] [address] [facility] [id number] [address] [place] [address] August, Diabetes E11.9 [facility] [address] [facility] [id number] [address] [place] [address] August, [facility] [address] [facility] [id number] [address] [place] [address] August, [facility] [address] [facility] [id number] [address] [place] [address] August, [facility] [address] [id number] [address] [place] [address], [place] [address] Jul, [facility] [address] [id number] [address] [place] [address], [place] [address] Jul, [facility] [address] [id number] [address] [place] [address] Jul, [facility] [address] [id number] [address] [place] [address] Jul, [facility] [address] [id number] [address] [place] [address] Jun, [facility] [address] [id number] [address] [place] [address], [place] [address] Jun, [facility] [address] [facility] [id number] [address] [place] [address] Jun, Diabetes E11.9 ; Skin infect ion L08.9 and Essential hypertension I10 [facility] [address] [id number] [address] [place] [address], [place] [address] May, [facility] [address] [id number] [address] [place] [address] May, [facility] [address] [facility] [id number] [address] [place] [address] May, [facility] [address] [id number] [address] [place] [address] Apr, [facility] [address] [id number] [address] [place] [address] Mar, [facility] [address] [id number] [address] [place] [address] Mar, [facility] [address] [facility] [id number] [address] [place] [address] Feb, [facility] [address] [facility] [id number] [address] [place] [address] Nov, [place] [address] [address] Nov, Diabetes E11.9 and Syncope, unspecified syncope type R55 [place] [address] [address] Nov, Osteoarthritis of knees, natan ateral M17.0 [place] [address] [address] Oct, Diabetes E11.9 ; CAD (guardado ry artery disease) I25.10 ; Essential hypertension I10 and Hyperlipemia E78.5 [place] [address] [address] Sep, [place] [address] [address] Jul, [place] [address] [address] Apr, [place] [address] [address] Mar, Pustular lesion L08.9 and En counter for immunization Z23 [place] [address] [address] Feb, [place] [address] [address] Dec, [place] [address] [address] Dec, [place] [address] [address] Dec, Diabetes E11.9 ; Essential h ypertension I10 ; Arthritis M19.90 ; Urinary frequency R35.0 ; Routine adult health maintenance Z00.00 and BMI 45.0- 49.9, adult Z68.42 [place] [address] [address] Dec, [place] [address] [address] Dec, [place] [address] [address] Oct, [place] [address] [address] Sep, Diabetes E11.9 [place] [address] [address] Sep, Diabetes E11.9 ; Hyperlipemi a E78.5 ; CAD (coronary artery disease) I25.10 ; Essential hypertension I10 and BMI 45.0-49.9, adult Z68.42 [place] [address] [address] Sep, [place] [address] [address] August, [place] [address] [address] Jan, Dysuria R30.[address] [address] Jan, Dysuria R30.0 [place] [address] [address] Jan, Osteoarthritis of knees, natan ateral M17.0 [place] [address] [address] Nov, Dysuria R30.0 [place] [address] [address] Oct, Blood in urine R31.9 ; Dysur ia R30.0 ; Pharyngeal dysphagia R13.13 ; Acute cystitis with hematuria N30.01 ; CAD (coronary artery disease) I25.10 and Diabetes E11.9 [place] [address] [address] Oct, [facility] [address] [id number] [address] [place] [address] Sep, Arthritis M19.90 ; Blood in urine R31.9 ; Diabetes E11.9 ; Acute cystitis with hematuria N30.01 and Pharyngoesophageal dysphagia R13.14 [facility] [address] [facility] [id number] [address] [place] [address] Sep, Osteoarthritis of knees, natan ateral M17.0 [facility] [address] [id number] [address] [place] [address] Sep, Osteoarthritis of knees, natan ateral M17.0 [facility] [address] [facility] [id number] [address] [place] [address] August, Arthritis M19.90 [facility] [address] [facility] [id number] [address] [place] [address] Jul, Arthritis M19.90 [facility] [address] [id number] [address] [place] [address] Jun, Arthritis M19.90 [facility] [address] [facility] [id number] [address] [place] [address] Jun, [facility] [address] [facility] [id number] [address] [place] [address] Jun, [facility] [address] [facility] [id number] [address] [place] [address] May, Diabetes E11.9 ; Dysuria R30 .0 and Arthritis M19.90 [facility] [address] [id number] [address] [place] [address] Apr, [facility] [address] [facility] [id number] [address] [place] [address] Apr, Arthritis M19.90 [facility] [address] [facility] [id number] [address] [place] [address] Mar, Arthritis M19.90 [facility] [address] [id number] [address] [place] [address] Feb, [facility] [address] [id number] [address] [place] [address] Jan, [facility] [address] [id number] [address] [place] [address] Dec, Diabetes E11.9 and Arthritis M19.90 [facility] [address] [id number] [address] [place] [address] Dec, [facility] [address] [id number] [address] [place] [address] Nov, Arthritis M19.90 [facility] [address] [id number] [address] [place] [address] Nov, [facility] [address] [facility] [id number] [address] [place] [address] Oct, Arthritis M19.90 [facility] [address] [id number] [address] [place] [address] Sep, Osteoarthritis of knees, natan ateral M17.0 [facility] [address] [facility] [id number] [address] [place] [address] Sep, Osteoarthritis of knees, natan ateral M17.0 [facility] [address] [facility] [id number] [address] [place] [address] August, Arthritis M19.90 [facility] [address] [id number] [address] [place] [address] August, [facility] [address] [facility] [id number] [address] [place] [address] Jul, Hyperlipemia E78.5 [facility] [address] [facility] [id number] [address] [place] [address] Jul, Encounter for well woman exa m Z01.419 ; Morbid obesity E66.01 ; Encounter for screening for malignant neoplasm of cervix Z12.4 and Encounter for screening mammogram for breast cancer Z12.31 [facility] [address] [id number] [address] [place] [address] Jul, Arthritis M19.90 ; Diabetes E11.9 ; Blood in urine R31.9 and UTI (urinary tract infection) N39.0 [facility] [address] [id number] [address] [place] [address] Jul, [facility] [address] [id number] [address] [place] [address] Jun, Arthritis M19.90 [facility] [address] [id number] [address] [place] [address] May, Arthritis M19.90 [facility] [address] [id number] [address] [place] [address] May, [facility] [address] [id number] [address] [place] [address] Apr, [facility] [address] [id number] [address] [place] [address] Apr, Arthritis M19.90 ; Diabetes E11.9 and Morbid obesity E66.01 [facility] [address] [id number] [address] [place] [address] Apr, [facility] [address] [id number] [address] [place] [address] Apr, Dyspareunia N94.1 [facility] [address] [id number] [address] [place] [address] Apr, [facility] [address] [id number] [address] [place] [address] Apr, [facility] [address] [id number] [address] [place] [address] 14 Apr, 2015 Osteoarthritis of knees, natan ateral M17.0 [facility] [address] [id number] [address] [place] [address] Apr, Diabetes E11.9 and CAD (elysia nary artery disease) I25.10 [facility] [address] [id number] [address] [place] [address] Mar, [facility] [address] [id number] [address] [place] [address] Feb, [facility] [address] [id number] [address] [place] [address] Jan, [facility] [address] [id number] [address] [place] [address] Jan, [facility] [address] [id number] [address] [place] [address] Jan, [facility] [address] [id number] [address] [place] [address] Jan, Osteoarthritis of knees, natan ateral M17.0 [facility] [address] [id number] [address] [place] [address] Dec, [facility] [address] [id number] [address] [place] [address] Dec, [facility] [address] [id number] [address] [place] [address] Dec, [facility] [address] [id number] [address] [place] [address] Dec, Diabetes mellitus 250.00 and UTI (urinary tract infection) 599.0 [facility] [address] [id number] [address] [place] [address] Dec, [facility] [address] [id number] [address] [place] [address] Nov, [facility] [address] [id number] [address] [place] [address] Oct, [facility] [address] [id number] [address] [place] [address] Oct, [facility] [address] [id number] [address] [place] [address], [place] [address] Oct, [facility] [address] [id number] [address] [place] [address], [place] [address] Oct, [facility] [address] [id number] [address] [place] [address], [place] [address] Oct, [facility] [address] [id number] [address] [place] [address], [place] [address] Sep, [facility] [address] [id number] [address] [place] [address], [place] [address] August, [facility] [address] [id number] [address] [place] [address], [place] [address] August, [facility] [address] [id number] [address] [place] [address], [place] [address] August, [facility] [address] [id number] [address] [place] [address], [place] [address] Jul, [facility] [address] [id number] [address] [place] [address], [place] [address] Jul, [facility] [address] [id number] [address] [place] [address], [place] [address] Jul, [facility] [address] [id number] [address] [place] [address], [place] [address] Jun, [facility] [address] [id number] [address] [place] [address], [place] [address] Jun, [facility] [address] [id number] [address] [place] [address], [place] [address] Jun, [facility] [address] [id number] [address] [place] [address], [place] [address] Jun, [facility] [address] [id number] [address] [place] [address], [place] [address] Jun, [facility] [address] [id number] [address] [place] [address], [place] [address] Jun, [facility] [address] [id number] [address] [place] [address], [place] [address] Jun, [facility] [address] [id number] [address] [place] [address], [place] [address] Jun, [facility] [address] [id number] [address] [place] [address], [place] [address] May, 2014 [facility] [address] [id number] [address] [place] [address], [place] [address] May, 2014 [facility] [address] [id number] [address] [place] [address], [place] [address] May, 2014 [facility] [address] [id number] [address] [place] [address], [place] [address] May, 2014 [facility] [address] [id number] [address] [place] [address], [place] [address] May, 2014 [facility] [address] [id number] [address] [place] [address], [place] [address] May, 2014 [facility] [address] [id number] [address] [place] [address], [place] [address] May, 2014 [facility] [address] [id number] [address] [place] [address], [place] [address] May, 2014 [facility] [address] [id number] [address] [place] [address], [place] [address] May, 2014 [facility] [address] [id number] [address] [place] [address], [place] [address] May, 2014 [facility] [address] [id number] [address] [place] [address], [place] [address] May, 2014 [facility] [address] [id number] [address] [place] [address], [place] [address] May, 2014 [facility] [address] [id number] [address] [place] [address], [place] [address] Apr, [facility] [address] [id number] [address] [place] [address], [place] [address] Apr, [facility] [address] [id number] [address] [place] [address], [place] [address] Mar, [facility] [address] [id number] [address] [place] [address], [place] [address] Mar, [facility] [address] [id number] [address] [place] [address], [place] [address] Mar, [facility] [address] [id number] [address] [place] [address], [place] [address] Mar, [facility] [address] [id number] [address] [place] [address], [place] [address] Mar, [facility] [address] [id number] [address] [place] [address], [place] [address] Mar, [facility] [address] [id number] [address] [place] [address], [place] [address] Feb, [facility] [address] [id number] [address] [place] [address], [place] [address] Feb, [facility] [address] [id number] [address] [place] [address], [place] [address] Feb, [facility] [address] [id number] [address] [place] [address], [place] [address] Feb, [facility] [address] [id number] [address] [place] [address], [place] [address] Feb, [facility] [address] [id number] [address] [place] [address], [place] [address] Feb, [facility] [address] [id number] [address] [place] [address], [place] [address] Feb, [facility] [address] [id number] [address] [place] [address], [place] [address] Feb, [facility] [address] [id number] [address] [place] [address], [place] [address] Feb, [facility] [address] [id number] [address] [place] [address], [place] [address] Jan, [facility] [address] [id number] [address] [place] [address], [place] [address] Jan, [facility] [address] [id number] [address] [place] [address], [place] [address] Jan, [facility] [address] [id number] [address] [place] [address], [place] [address] Jan, [facility] [address] [id number] [address] [place] [address], [place] [address] Jan, [facility] [address] [id number] [address] [place] [address], [place] [address] Jan, [facility] [address] [id number] [address] [place] [address], [place] [address] Jan, [facility] [address] [id number] [address] [place] [address], [place] [address] Jan, [facility] [address] [id number] [address] [place] [address], [place] [address] Jan, [facility] [address] [id number] [address] [place] [address], [place] [address] Jan, [facility] [address] [id number] [address] [place] [address], [place] [address] 19 Dec, 2013 [facility] [address] [id number] [address] [place] [address], [place] [address] 19 Dec, 2013 [facility] [address] [id number] [address] [place] [address], [place] [address] 10 Dec, 2013 [facility] [address] [id number] [address] [place] [address], [place] [address] Dec, [facility] [address] [id number] [address] [place] [address], [place] [address] Nov, [facility] [address] [id number] [facility] [place] [address] Nov, [facility] [address] [id number] [facility] [place] [address] Nov, [facility] [address] [id number] [facility] [place] [address] Nov, [facility] [address] [id number] [facility] [place] [address] Nov, [facility] [address] [id number] [address] [place] [address] Nov, [facility] [address] [id number] [address] [place] [address], [place] [address] Nov, [facility] [address] [id number] [address] [place] [address], [place] [address] Nov, [facility] [address] [id number] [address] [place] [address], [place] [address] Nov, [facility] [address] [id number] [address] [place] [address], [place] [address] Oct, [facility] [address] [id number] [address] [place] [address], [place] [address] Oct, [facility] [address] [id number] [address] [place] [address], [place] [address] Sep, [facility] [address] [id number] [address] [place] [address], [place] [address] Sep, [facility] [address] [id number] [address] [place] [address], [place] [address] Sep, [facility] [address] [id number] [address] [place] [address], [place] [address] Sep, [facility] [address] [id number] [address] [place] [address], [place] [address] Sep, [facility] [address] [id number] [address] [place] [address], [place] [address] Sep, [facility] [address] [id number] [address] [place] [address] Sep, [facility] [address] [id number] [address] [place] [address], [place] [address] Sep, [facility] [address] [id number] [address] [place] [address], [place] [address] Sep, [facility] [address] [id number] [address] [place] [address], [place] [address] Sep, [facility] [address] [id number] [address] [place] [address], [place] [address] Sep, [facility] [address] [id number] [address] [place] [address], [place] [address] Sep, [facility] [address] [id number] [address] [place] [address], [place] [address] Sep, [facility] [address] [id number] [address] [place] [address], [place] [address] Sep, [facility] [address] [id number] [address] [place] [address], [place] [address] August, [facility] [address] [id number] [address] [place] [address], [place] [address] August, [facility] [address] [id number] [address] [place] [address], [place] [address] August, [facility] [address] [id number] [address] [place] [address], [place] [address] August, [facility] [address] [id number] [address] [place] [address], [place] [address] Jul, [facility] [address] [id number] [address] [place] [address], [place] [address] Jul, [facility] [address] [id number] [address] [place] [address], [place] [address] Jul, [facility] [address] [id number] [address] [place] [address], [place] [address] Jul, [facility] [address] [id number] [address] [place] [address], [place] [address] Jun, [facility] [address] [id number] [address] [place] [address], [place] [address] Jun, [facility] [address] [id number] [address] [place] [address], [place] [address] May, [facility] [address] [id number] [address] [place] [address], [place] [address] May, [facility] [address] [id number] [address] [place] [address], [place] [address] May, [facility] [address] [id number] [address] [place] [address], [place] [address] May, [facility] [address] [id number] [address] [place] [address], [place] [address] May, [facility] [address] [id number] [address] [place] [address], [place] [address] May, [facility] [address] [id number] [address] [place] [address], [place] [address] May, [facility] [address] [id number] [address] [place] [address], [place] [address] May, [facility] [address] [id number] [address] [place] [address], [place] [address] May, [facility] [address] [id number] [address] [place] [address], [place] [address] Apr, [facility] [address] [id number] [address] [place] [address], [place] [address] Apr, [facility] [address] [id number] [address] [place] [address], [place] [address] Apr, [facility] [address] [id number] [address] [place] [address], [place] [address] Apr, [facility] [address] [id number] [address] [place] [address], [place] [address] Apr, [facility] [address] [id number] [address] [place] [address], [place] [address] Mar, [facility] [address] [id number] [address] [place] [address], [place] [address] Mar, [facility] [address] [id number] [address] [place] [address], [place] [address] Feb, [facility] [address] [id number] [address] [place] [address], [place] [address] Feb, [facility] [address] [id number] [address] [place] [address], [place] [address] Feb, [facility] [address] [id number] [address] [place] [address], [place] [address] Feb, [facility] [address] [id number] [address] [place] [address], [place] [address] Feb, [facility] [address] [id number] [address] [place] [address], [place] [address] Feb, [facility] [address] [id number] [address] [place] [address], [place] [address] Feb, [facility] [address] [id number] [address] [place] [address], [place] [address] Feb, [facility] [address] [id number] [address] [place] [phone] Feb, [facility] [address] [id number] [address] [place] [address], [place] [address] Jan, [facility] [address] [id number] [address] [place] [address], [place] [address] Jan, [facility] [address] [id number] [address] [place] [address], [place] [address] Jan, [facility] [address] [id number] [address] [place] [address], [place] [address] Jan, [facility] [place] [address] [id number] [address] [place] [address], [place] [address] Jan, [facility] [address] [id number] [address] [place] [address], [place] [address] Dec, [facility] [address] [id number] [address] [place] [address], [place] [address] Dec, [facility] [address] [id number] [address] [place] [address], [place] [address] Nov, [facility] [address] [id number] [address] [place] [address], [place] [address] Nov, [facility] [address] [id number] [address] [place] [address], [place] [address] Oct, [facility] [place] [address] [id number] [address] [place] [address], [place] [address] Oct, [facility] [address] [id number] [address] [place] [address], [place] [address] Oct, [facility] [place] [address] [id number] [address] [place] [address], [place] [address] Sep, [facility] [address] [id number] [address] [place] [address], [place] [address] Sep, [facility] [place] [address] [id number] [address] [place] [address], [place] [address] Sep, [facility] [address] [id number] [address] [place] [address], [place] [address] August, [facility] [address] [id number] [address] [place] [address], [place] [address] August, [facility] [address] [id number] [address] [place] [address], [place] [address] August, [facility] [address] [id number] [address] [place] [address], [place] [address] August, [facility] [place] [address] [id number] [address] [place] [address], [place] [address] Jul, [facility] [address] [id number] [address] [place] [address], [place] [address] Jun, [facility] [address] [id number] [address] [place] [address], [place] [address] 08 Jun, 2012 [facility] [address] [id number] [address] [place] [address], [place] [address] Jun, [facility] [address] [id number] [address] [place] [address], [place] [address] May, [facility] [address] [id number] [address] [place] [address], [place] [address] May, [facility] [address] [id number] [address] [place] [address], [place] [address] May, [facility] [address] [id number] [address] [place] [address], [place] [address] May, [facility] [address] [id number] [address] [place] [address], [place] [address] Apr, [facility] [place] [address] [id number] [address] [place] [address], [place] [address] Apr, [facility] [place] [address] [id number] [address] [place] [address], [place] [address] 15 Apr, 2012 [facility] [address] [id number] [address] [place] [address], [place] [address] 14 Apr, 2012 [facility] [address] [id number] [address] [place] [address], [place] [address] Apr, [facility] [address] [id number] [address] [place] [address], [place] [address] Mar, [facility] [address] [id number] [address] [place] [address], [place] [address] Mar, [facility] [address] [id number] [address] [place] [address], [place] [address] Mar, [facility] [address] [id number] [address] [place] [address], [place] [address] Mar, [facility] [address] [id number] [address] [place] [address], [place] [address] Mar, [facility] [address] [id number] [address] [place] [address], [place] [address] Mar, [facility] [address] [id number] [address] [place] [address], [place] [address] Mar, [facility] [address] [id number] [address] [place] [address], [place] [address] Feb, [facility] [address] [id number] [address] [place] [address], [place] [address] Feb, [facility] [address] [id number] [address] [place] [address], [place] [address] Feb, [facility] [address] [id number] [address] [place] [address], [place] [address] Feb, [facility] [address] [id number] [address] [place] [address], [place] [address] Feb, [facility] [address] [id number] [address] [place] [address], [place] [address] Feb, [facility] [address] [id number] [address] [place] [address], [place] [address] Feb, [facility] [address] [id number] [address] [place] [address], [place] [address] Feb, [facility] [address] [id number] [address] [place] [address], [place] [address] Jan, [facility] [address] [id number] [address] [place] [address], [place] [address] Jan, [facility] [address] [id number] [address] [place] [id number] Jan, [facility] [address] [id number] [address] [place] [address], [place] [address] Jan, [facility] [address] [id number] [address] [place] [address], [place] [address] 27 Dec, 2011 [facility] [address] [id number] [address] [place] [address], [place] [address] 25 Dec, 2011 [facility] [address] [id number] [address] [place] [address], [place] [address] 18 Dec, 2011 [facility] [address] [id number] [address] [place] [address], [place] [address] 13 Dec, 2011 [facility] [address] [id number] [address] [place] [address], [place] [address] 11 Dec, 2011 [facility] [address] [id number] [address] [place] [address], [place] [address] Oct, [facility] [address] [id number] [address] [place] [address], [place] [address] Oct, [facility] [address] [id number] [address] [place] [address], [place] [address] Sep, [facility] [address] [id number] [address] [place] [address], [place] [address] Sep, [facility] [address] [id number] [address] [place] [address], [place] [address] August, [facility] [address] [id number] [address] [place] [address], [place] [address] August, [facility] [address] [id number] [address] [place] [address], [place] [address] Jul, [facility] [address] [id number] [address] [place] [address], [place] [address] Jun, [facility] [address] [id number] [address] [place] [address], [place] [address] Jun, [facility] [address] [id number] [address] [place] [address], [place] [address] 23 Jun, 2011 [facility] [address] [id number] [address] [place] [address], [place] [address] 19 Jun, 2011 [facility] [address] [id number] [address] [place] [address], [place] [address] 2011 [facility] [address] [id number] [address] [place] [address], [place] [address] 24 May, 2011 [facility] [address] [id number] [address] [place] [address], [place] [address] 22 May, 2011 [facility] [address] [id number] [address] [place] [address], [place] [address] 20 May, 2011 [facility] [address] [id number] [address] [place] [address], [place] [address] 14 May, 2011 [facility] [place] [address] [id number] [address] [place] [address], [place] [address] 13 May, 2011 [facility] [address] [id number] [address] [place] [address], [place] [address] 03 May, 2011 [facility] [address] [id number] [address] [place] [address], [place] [address] 02 May, 2011 [facility] [place] [address] [id number] [address] [place] [address], [place] [address] 02 May, 2011 [facility] [address] [id number] [address] [place] [address], [place] [address] 05 Apr, 2011 [facility] [address] [id number] [address] [place] [address], [place] [address] Mar, [facility] [address] [id number] [address] [place] [address], [place] [address] Mar, [facility] [address] [id number] [address] [place] [address], [place] [address] Mar, [facility] [address] [id number] [address] [place] [address], [place] [address] 15 Mar, 2011 [facility] [address] [id number] [address] [place] [id number] Mar, [facility] [address] [id number] [address] [place] [id number] Jan, [facility] [address] [id number] [address] [place] [id number] Jan, [facility] [address] [id number] [address] [place] [id number] Jan, [facility] [address] [id number] [address] [place] [id number] August, [facility] [address] [id number] [address] [place] [id number] Mar, [facility] [address] [id number] [address] [place] [id number] Feb, [facility] [address] [id number] [address] [place] [id number] Jan, [facility] [address] [id number] [address] [place] [id number] Jan, IMMUNIZATIONS No Known Immunizations SOCIAL HISTORY [...]
--- OUTSIDE RECORDS SUMMARY | 2019-09-18 19:08 | XMS REPORT | Continuity of Care Document ---
Demographics Preferred Language Unknown Marital Status Unknown Islam Affiliation Unknown Race Unknown Ethnic Group Unknown Author Organization Unknown Address Unknown Phone Unavailable Allergies Active Description Code Type Severity Reaction Onset Reported/Identified Relationship to Patient Clinical Status Yes iodinated radiocontrast agent Drug Allergy 06/23/2009 Yes IV CONTRAST IV CONTRAST Mild HIVES 09/17/2018 Yes No Known Drug Allergies [id number] Drug Allergy Unknown N/A 09/17/2018 Medications There is no data. Problems Date Dx Coded Attending Type Code Diagnosis Diagnosed By 05/26/2009 BRITTANY MIRZA DO 250.02 DIABETES II UNCONTROLLED 05/26/2009 BRITTANY MIRZA DO 278.01 MORBID OBESITY 05/26/2009 BRITTANY MIRZA DO 428.0 CONGESTIVE HEART FAILURE, UNSPECIFIED 05/26/2009 KATIE HUDSON MD 250.0 2 DIABETES II UNCONTROLLED 05/26/2009 KATIE HUDSON MD 278.0 1 MORBID OBESITY 05/26/2009 KATIE HUDSON MD 428.0 CONGESTIVE HEART FAILURE, UNSPECIFIED 05/26/2009 250.02 ALICE BETES II UNCONTROLLED 05/26/2009 278.01 MOR BID OBESITY 05/26/2009 428.0 ZAINAB ESTIVE HEART FAILURE, UNSPECIFIED 05/26/2009 KATIE HUDSON MD 250.0 2 DIABETES II UNCONTROLLED 05/26/2009 KATIE HUDSON MD 278.0 1 MORBID OBESITY 05/26/2009 KATIE HUDSON MD 428.0 CONGESTIVE HEART FAILURE, UNSPECIFIED 05/26/2009 KATIE HUDSON MD 250.0 2 DIABETES II UNCONTROLLED 05/26/2009 KATIE HUDSON MD 278.0 1 MORBID OBESITY 05/26/2009 KATIE HUDSON MD 428.0 CONGESTIVE HEART FAILURE, UNSPECIFIED 05/26/2009 KATIE HUDSON MD 250.0 2 DIABETES II UNCONTROLLED 05/26/2009 KATIE HUDSON MD 278.0 1 MORBID OBESITY 05/26/2009 KATIE HUDSON MD 428.0 CONGESTIVE HEART FAILURE, UNSPECIFIED 05/26/2009 KATIE HUDSON MD 250.0 2 DIABETES II UNCONTROLLED 05/26/2009 KATIE HUDSON MD 278.0 1 MORBID OBESITY 05/26/2009 KATIE HUDSON MD 428.0 CONGESTIVE HEART FAILURE, UNSPECIFIED 05/26/2009 BRITTANY MIRZA DO 250.02 DIABETES II UNCONTROLLED 05/26/2009 BRITTANY MIRZA DO K 278.01 MORBID OBESITY 05/26/2009 BRITTANY MIRZA DO 428.0 CONGESTIVE HEART FAILURE, UNSPECIFIED 05/26/2009 KATIE HUDSON MD 250.0 2 DIABETES II UNCONTROLLED 05/26/2009 KATIE HUDSON MD 278.0 1 MORBID OBESITY 05/26/2009 KATIE HUDSON MD 428.0 CONGESTIVE HEART FAILURE, UNSPECIFIED 05/26/2009 BRITTANY MIRZA DO 250.02 DIABETES II UNCONTROLLED 05/26/2009 BRITTANY MIRZA DO K 278.01 MORBID OBESITY 05/26/2009 BRITTANY MIRZA DO 428.0 CONGESTIVE HEART FAILURE, UNSPECIFIED 05/26/2009 KATIE HUDSON MD 250.0 2 DIABETES II UNCONTROLLED 05/26/2009 KATIE HUDSON MD 278.0 1 MORBID OBESITY 05/26/2009 KATIE HUDSON MD 428.0 CONGESTIVE HEART FAILURE, UNSPECIFIED 05/26/2009 KATIE HUDSON MD 250.0 2 DIABETES II UNCONTROLLED 05/26/2009 KATIE HUDSON MD 278.0 1 MORBID OBESITY 05/26/2009 KATIE HUDSON MD 428.0 CONGESTIVE HEART FAILURE, UNSPECIFIED 05/26/2009 BRITTANY MIRZA DO 250.02 DIABETES II UNCONTROLLED 05/26/2009 BRITTANY MIRZA DO 278.01 MORBID OBESITY 05/26/2009 BRITTANY MIRZA DO 428.0 CONGESTIVE HEART FAILURE, UNSPECIFIED 05/26/2009 KATIE HUDSON MD 250.0 2 DIABETES II UNCONTROLLED 05/26/2009 KATIE HUDSON MD 278.0 1 MORBID OBESITY 05/26/2009 KATIE HUDSON MD 428.0 CONGESTIVE HEART FAILURE, UNSPECIFIED 05/26/2009 KATIE HUDSON MD 250.0 2 DIABETES II UNCONTROLLED 05/26/2009 KATIE HUDSON MD 278.0 1 MORBID OBESITY 05/26/2009 KATIE HUDSON MD 428.0 CONGESTIVE HEART FAILURE, UNSPECIFIED 05/26/2009 KATIE HUDSON MD 250.0 2 DIABETES II UNCONTROLLED 05/26/2009 KATIE HUDSON MD 278.0 1 MORBID OBESITY 05/26/2009 KATIE HUDSON MD 428.0 CONGESTIVE HEART FAILURE, UNSPECIFIED 06/23/2009 MIRZA DO, BRITTANY K 250.00 DIABETES II CONTROLLED 06/23/2009 MIRZA DO, BRITTANY K 272.4 HYPERLIPIDEMIA UNSPECIFIED 06/23/2009 MIRZA DO, BRITTANY K 599.0 Urinary Tract Infection 06/23/2009 BECCA CACERES, KATIE 250.0 0 DIABETES II CONTROLLED 06/23/2009 BECCA CACERES, KATIE 272.4 HYPERLIPIDEMIA UNSPECIFIED 06/23/2009 BECCA CACERES, KATIE 599.0 Urinary Tract Infection 06/23/2009 250.00 ALICE BETES II CONTROLLED 06/23/2009 272.4 HYPE RLIPIDEMIA UNSPECIFIED 06/23/2009 599.0 Urin santa Tract Infection 06/23/2009 KATIE HUDSON MD 250.0 0 DIABETES II CONTROLLED 06/23/2009 KATIE HUDSON MD 272.4 HYPERLIPIDEMIA UNSPECIFIED 06/23/2009 KATIE HUDSON MD 599.0 Urinary Tract Infection 06/23/2009 KATIE HUDSON MD 250.0 0 DIABETES II CONTROLLED 06/23/2009 KATIE HUDSON MD 272.4 HYPERLIPIDEMIA UNSPECIFIED 06/23/2009 KATIE HUDSON MD 599.0 Urinary Tract Infection 06/23/2009 KATIE HUDSON MD 250.0 0 DIABETES II CONTROLLED 06/23/2009 KATIE HUDSON MD 272.4 HYPERLIPIDEMIA UNSPECIFIED 06/23/2009 KATIE HUDSON MD 599.0 Urinary Tract Infection 06/23/2009 KATIE HUDSON MD 250.0 0 DIABETES II CONTROLLED 06/23/2009 KATIE HUDSON MD 272.4 HYPERLIPIDEMIA UNSPECIFIED 06/23/2009 KATIE HUDSON MD 599.0 Urinary Tract Infection 06/23/2009 YUKI HERNADEZ, BRITTANY K 250.00 DIABETES II CONTROLLED 06/23/2009 MIRZA DO, BRITTANY K 272.4 HYPERLIPIDEMIA UNSPECIFIED 06/23/2009 MIRZA , BRITTANY K 599.0 Urinary Tract Infection 06/23/2009 KATIE HUDSON MD 250.0 0 DIABETES II CONTROLLED 06/23/2009 KATIE HUDSON MD 272.4 HYPERLIPIDEMIA UNSPECIFIED 06/23/2009 KATIE HUDSON MD 599.0 Urinary Tract Infection 06/23/2009 MIRZA DO, BRITTANY K 250.00 DIABETES II CONTROLLED 06/23/2009 MIRZA DO, BRITTANY K 272.4 HYPERLIPIDEMIA UNSPECIFIED 06/23/2009 BRITTANY MIRZA DO 599.0 Urinary Tract Infection 06/23/2009 KATIE HUDSON MD 250.0 0 DIABETES II CONTROLLED 06/23/2009 BECCA CACERES, KATIE 272.4 HYPERLIPIDEMIA UNSPECIFIED 06/23/2009 KATIE HUDSON MD 599.0 Urinary Tract Infection 06/23/2009 BECCA CACERES, KATIE 250.0 0 DIABETES II CONTROLLED 06/23/2009 BECCA CACERES, KATIE 272.4 HYPERLIPIDEMIA UNSPECIFIED 06/23/2009 KATIE HUDSON MD 599.0 Urinary Tract Infection 06/23/2009 BRITTANY MIRZA DO 250.00 DIABETES II CONTROLLED 06/23/2009 BRITTANY MIRZA DO 272.4 HYPERLIPIDEMIA UNSPECIFIED 06/23/2009 BRITTANY MIRZA DO 599.0 Urinary Tract Infection 06/23/2009 KATIE HUDSON MD 250.0 0 DIABETES II CONTROLLED 06/23/2009 KATIE HUDSON MD 272.4 HYPERLIPIDEMIA UNSPECIFIED 06/23/2009 KATIE HUDSON MD 599.0 Urinary Tract Infection 06/23/2009 KATIE HUDSON MD 250.0 0 DIABETES II CONTROLLED 06/23/2009 KATIE HUDSON MD 272.4 HYPERLIPIDEMIA UNSPECIFIED 06/23/2009 KATIE HUDSON MD 599.0 Urinary Tract Infection 06/23/2009 KATIE HUDSON MD 250.0 0 DIABETES II CONTROLLED 06/23/2009 KATIE HUDSON MD 272.4 HYPERLIPIDEMIA UNSPECIFIED 06/23/2009 KATIE HUDSON MD 599.0 Urinary Tract Infection 08/31/2010 BRITTANY MIRZA DO 716.90 Unspecified Arthropathy Site Unspecified 08/31/2010 KATIE HUDSON MD 716.9 0 Unspecified Arthropathy Site Unspecified 08/31/2010 716.90 Uns pecified Arthropathy Site Unspecified 08/31/2010 KATIE HUDSON MD 716.9 0 Unspecified Arthropathy Site Unspecified 08/31/2010 KATIE HUDSON MD 716.9 0 Unspecified Arthropathy Site Unspecified 08/31/2010 KATIE HUDSON MD 716.9 0 Unspecified Arthropathy Site Unspecified 08/31/2010 KATIE HUDSON MD 716.9 0 Unspecified Arthropathy Site Unspecified 08/31/2010 BRITTANY MIRZA DO 716.90 Unspecified Arthropathy Site Unspecified 08/31/2010 KATIE HUDSON MD 716.9 0 Unspecified Arthropathy Site Unspecified 08/31/2010 BRITTANY MIRZA DO 716.90 Unspecified Arthropathy Site Unspecified 08/31/2010 KATIE HUDSON MD 716.9 0 Unspecified Arthropathy Site Unspecified 08/31/2010 KATIE HUDSON MD 716.9 0 Unspecified Arthropathy Site Unspecified 08/31/2010 BRITTANY MIRZA DO 716.90 Unspecified Arthropathy Site Unspecified 08/31/2010 KATIE HUDSON MD 716.9 0 Unspecified Arthropathy Site Unspecified 08/31/2010 KATIE HUDSON MD 716.9 0 Unspecified Arthropathy Site Unspecified 08/31/2010 KATIE HUDSON MD 716.9 0 Unspecified Arthropathy Site Unspecified 09/16/2010 BRITTANY MIRZA DO 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 09/16/2010 KATIE HUDSON MD 733.9 2 Chondromalacia 09/16/2010 733.92 Cho ndromalacia 09/16/2010 KATIE HUDSON MD 733.9 2 Chondromalacia 09/16/2010 KATIE HUDSON MD 733.9 2 Chondromalacia 09/16/2010 KATIE HUDSON MD 733.9 2 Chondromalacia 09/16/2010 KATIE HUDSON MD 733.9 2 Chondromalacia 09/16/2010 BRITTANY MIRZA DO 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 09/16/2010 KATIE HUDSON MD 733.9 2 Chondromalacia 09/16/2010 BRITTANY MIRZA DO 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 09/16/2010 KATIE HUDSON MD 733.9 2 Chondromalacia 09/16/2010 KATIE HUDSON MD 733.9 2 Chondromalacia 09/16/2010 BRITTANY MIRZA DO 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 09/16/2010 KATIE HUDSON MD 733.9 2 Chondromalacia 09/16/2010 KATIE HUDSON MD 733.9 2 Chondromalacia 09/16/2010 KATIE HUDSON MD 733.9 2 Chondromalacia 11/16/2010 BRITTANY MIRZA DO V72.31 Yarder Exam, Routine 11/16/2010 KATIE HUDSON MD V72.3 1 Yarder Exam, Routine 11/16/2010 V72.31 Yarder Exam, Routine 11/16/2010 KATIE HUDSON MD V72.3 1 Yarder Exam, Routine 11/16/2010 KATIE HUDSON MD V72.3 1 Yarder Exam, Routine 11/16/2010 KATIE HUDSON MD V72.3 1 Yarder Exam, Routine 11/16/2010 KATIE HUDSON MD V72.3 1 Yarder Exam, Routine 11/16/2010 YUKI HERNADEZ, BRITTANY Vazquez V72.31 Yarder Exam, Routine 11/16/2010 BECCA CACERES, KATIE V72.3 1 Yarder Exam, Routine 11/16/2010 YUKI HERNADEZ, BRITTANY Vazquez V72.31 Yarder Exam, Routine 11/16/2010 BECCA CACERES, KATIE V72.3 1 Yarder Exam, Routine 11/16/2010 KATIE HUDSON MD V72.3 1 Yarder Exam, Routine 11/16/2010 YUKI HERNADEZ, BRITTANY Vazquez V72.31 Yarder Exam, Routine 11/16/2010 KATIE HUDSON MD V72.3 1 Yarder Exam, Routine 11/16/2010 KATIE HUDSON MD V72.3 1 Yarder Exam, Routine 11/16/2010 KATIE HUDSON MD V72.3 1 Yarder Exam, Routine 01/25/2011 BRITTANY MIRZA DO V04.81 Flu Dx (3 Yrs And Above, Im) 01/25/2011 KATIE HUDSON MD V04.8 1 Flu Dx (3 Yrs And Above, Im) 01/25/2011 V04.81 Flu Dx (3 Yrs And Above, Im) 01/25/2011 KATIE HUDSON MD V04.8 1 Flu Dx (3 Yrs And Above, Im) 01/25/2011 KATIE HUDSON MD V04.8 1 Flu Dx (3 Yrs And Above, Im) 01/25/2011 KATIE HUDSON MD V04.8 1 Flu Dx (3 Yrs And Above, Im) 01/25/2011 KATIE HUDSON MD V04.8 1 Flu Dx (3 Yrs And Above, Im) 01/25/2011 BRITTANY MIRZA DO V04.81 Flu Dx (3 Yrs And Above, Im) 01/25/2011 KATIE HUDSON MD V04.8 1 Flu Dx (3 Yrs And Above, Im) 01/25/2011 BRITTANY MIRZA DO V04.81 Flu Dx (3 Yrs And Above, Im) 01/25/2011 KATIE HUDSON MD V04.8 1 Flu Dx (3 Yrs And Above, Im) 01/25/2011 KATIE HUDSON MD V04.8 1 Flu Dx (3 Yrs And Above, Im) 01/25/2011 BRITTANY MRIZA DO V04.81 Flu Dx (3 Yrs And Above, Im) 01/25/2011 KATIE HUDSON MD V04.8 1 Flu Dx (3 Yrs And Above, Im) 01/25/2011 KATIE HUDSON MD4.8 1 Flu Dx (3 Yrs And Above, Im) 01/25/2011 KATIE HUDSON MD V04.8 1 Flu Dx (3 Yrs And Above, Im) 04/21/2011 BRITTANY MIRZA DO 414.00 CAD 04/21/2011 KATIE HUDSON MD 414.0 0 CAD 04/21/2011 414.00 CAD 04/21/2011 BECCA CACERES, KATIE 414.0 0 CAD 04/21/2011 BECCA CACERES, KATIE 414.0 0 CAD 04/21/2011 BECCA CACERES, KATIE 414.0 0 CAD 04/21/2011 BECCA CACERES, KATIE 414.0 0 CAD 04/21/2011 BRITTANY MIRZA DO 414.00 CAD 04/21/2011 BECCA CACERES, KATIE 414.0 0 CAD 04/21/2011 BRITTANY MIRZA DO 414.00 CAD 04/21/2011 BECCA CACERES, KATIE 414.0 0 CAD 04/21/2011 BECCA CACERES, KATIE 414.0 0 CAD 04/21/2011 BRITTANY MIRZA DO 414.00 CAD 04/21/2011 BECCA CACERES, KATIE 414.0 0 CAD 04/21/2011 BECCA CACERES, KATIE 414.0 0 CAD 04/21/2011 BECCA CACERES, KATIE 414.0 0 CAD 08/19/2011 BRITTANY MIRZA DO K 530.11 REFLUX ESOPHAGITIS 08/19/2011 KATIE HUDSON MD 530.1 1 REFLUX ESOPHAGITIS 08/19/2011 530.11 REF LUX ESOPHAGITIS 08/19/2011 KATIE HUDSON MD 530.1 1 REFLUX ESOPHAGITIS 08/19/2011 KATIE HUDSON MD 530.1 1 REFLUX ESOPHAGITIS 08/19/2011 KATIE HUDSON MD 530.1 1 REFLUX ESOPHAGITIS 08/19/2011 KATIE HUDSON MD 530.1 1 REFLUX ESOPHAGITIS 08/19/2011 BRITTANY MIRZA DO 530.11 REFLUX ESOPHAGITIS 08/19/2011 KATIE HUDSON MD 530.1 1 REFLUX ESOPHAGITIS 08/19/2011 BRITTANY MIRZA DO 530.11 REFLUX ESOPHAGITIS 08/19/2011 AKTIE HUDSON MD 530.1 1 REFLUX ESOPHAGITIS 08/19/2011 KATIE HUDSON MD 530.1 1 REFLUX ESOPHAGITIS 08/19/2011 BRITTANY MIRZA DO 530.11 REFLUX ESOPHAGITIS 08/19/2011 KATIE HUDSON MD 530.1 1 REFLUX ESOPHAGITIS 08/19/2011 KATIE HUDSON MD 530.1 1 REFLUX ESOPHAGITIS 08/19/2011 KATIE HUDSON MD 530.1 1 REFLUX ESOPHAGITIS 03/16/2012 BRITTANY MIRZA DO 788.1 [...] HUDSON MD8.1 DYSURIA 03/16/2012 BRITTANY MIRZA DO K 788.1 DYSURIA 03/16/2012 KATIE HUDSON MD8.1 DYSURIA 03/16/2012 KATIE HUDSON MD8.1 DYSURIA 03/16/2012 KATIE HUDSON MD.1 DYSURIA 03/22/2012 BRITTANY MIRZA DO 733.92 CHONDROMALACIA 03/22/2012 KATIE HUDSON MD 733.9 2 CHONDROMALACIA 03/22/2012 733.92 CHO NDROMALACIA 03/22/2012 KATIE HUDSON MD 733.9 2 CHONDROMALACIA 03/22/2012 KATIE HUDSON MD 733.9 2 CHONDROMALACIA 03/22/2012 KATIE HUDSON MD 733.9 2 CHONDROMALACIA 03/22/2012 BRITTANY MIRZA DO 733.92 CHONDROMALACIA 03/22/2012 KATIE HUDSON MD 733.9 2 CHONDROMALACIA 03/22/2012 BRITTANY MIRZA DO 733.92 CHONDROMALACIA 03/22/2012 KATIE HUDSON MD 733.9 2 CHONDROMALACIA 03/22/2012 KATIE HUDSON MD 733.9 2 CHONDROMALACIA 03/22/2012 BRITTANY MIRZA DO 733.92 CHONDROMALACIA 03/22/2012 KATIE HUDSON MD 733.9 2 CHONDROMALACIA 03/22/2012 KATIE HUDSON MD 733.9 2 CHONDROMALACIA 03/22/2012 KATIE HUDSON MD 733.9 2 CHONDROMALACIA 04/18/2012 BRITTANY MIRZA DO 356.9 NEUROPATHY 04/18/2012 KATIE HUDSON MD 356.9 NEUROPATHY 04/18/2012 356.9 NEUR OPATHY 04/18/2012 KATIE HUDSON MD 356.9 NEUROPATHY 04/18/2012 KATIE HUDSON MD 356.9 NEUROPATHY 04/18/2012 KATIE HUDSON MD 356.9 NEUROPATHY 04/18/2012 BRITTANY MIRZA DO 356.9 NEUROPATHY 04/18/2012 KATIE HUDSON MD 356.9 NEUROPATHY 04/18/2012 BRITTANY MIRZA DO K 356.9 NEUROPATHY 04/18/2012 KATIE HUDSON MD 356.9 NEUROPATHY 04/18/2012 KATIE HUDSON MD 356.9 NEUROPATHY 04/18/2012 BRITTANY MIRZA DO K 356.9 NEUROPATHY 04/18/2012 KATIE HUDSON MD 356.9 NEUROPATHY 04/18/2012 KATIE HUDSON MD 356.9 NEUROPATHY 04/18/2012 KATIE HUDSON MD 356.9 NEUROPATHY 10/25/2012 525.9 UNSP ECIFIED DISORDER OF THE TEETH AND SUPPORTING STRUCTURES [...] OF THE TEETH AND SUPPORTING STRUCTURES 10/25/2012 KATEI HUDSON MD 525.9 UNSPECIFIED DISORDER OF THE [...] DERMATOPHYTOSIS OF NAIL 03/10/2014 KATIE HUDSON MD V03.8 2 PCV-13 (PREVNAR) DX 03/10/2014 KATIE HUDSON MD 110.1 DERMATOPHYTOSIS OF NAIL 03/10/2014 KATIE HUDSON MD V03.8 2 PCV-13 (PREVNAR) DX 06/12/2014 KATIE HUDSON MD 716.9 0 UNSPECIFIED ARTHROPATHY SITE UNSPECIFIED 09/18/2018 ALTHEA NEWMAN DO Ot E11.9 TYPE 2 DIABETES MELLITUS WITHOUT COMPLIC 09/18/2018 ALTHEA NEWMAN DO Ot E66.01 MORBID (SEVERE) OBESITY DUE TO EXCESS CA 09/18/2018 ALTHEA NEWMAN DO Ot E78.00 PURE HYPERCHOLESTEROLEMIA, UNSPECIFIED 09/18/2018 ALTHEA NEWMAN DO Ot H00.01 6 HORDEOLUM EXTERNUM LEFT EYE, UNSPECIFIED 09/18/2018 ALTHEA NEWMAN DO Ot H00.03 4 ABSCESS OF LEFT UPPER EYELID 09/18/2018 ALTHEA NEWMAN DO Ot H00.03 5 ABSCESS OF LEFT LOWER EYELID 09/18/2018 ALTHEA NEWMAN DO, Ot H01.00 6 UNSPECIFIED BLEPHARITIS LEFT EYE, UNSPEC 09/18/2018 ALTHEA NEWMAN DO Ot I10 ESSENTIAL (PRIMARY) HYPERTENSION 09/18/2018 ALTHEA NEWMAN DO Ot 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 09/18/2018 ALTHEA NEWMAN DO, Ot J44.9 CHRONIC OBSTRUCTIVE PULMONARY DISEASE, U 09/18/2018 ALTHEA NEWMAN DO Ot L03.21 1 CELLULITIS OF FACE 09/18/2018 ALTHEA NEWMAN DO, Ot Z68.42 BODY MASS INDEX (BMI) 45.0-49.9, ADULT 09/18/2018 ALTHEA NEWMAN DO, Ot Z79.4 CUSTOMER ACCOUNT ADMINISTRATOR (CURRENT) USE OF INSULIN 09/18/2018 ALTHEA NEWMAN DO, Ot Z87.89 1 PERSONAL HISTORY OF NICOTINE DEPENDENCE 10/19/2018 EVELYN SAMPSON DO, Ot E11.40 TYPE 2 DIABETES MELLITUS WITH DIABETIC N 10/19/2018 EVELYN SAMPSON DO, Ot E66.01 MORBID (SEVERE) OBESITY DUE TO EXCESS CA 10/19/2018 EVELYN SAMPSON DO, Ot E78.00 PURE HYPERCHOLESTEROLEMIA, UNSPECIFIED 10/19/2018 EVELYN SAMPSON DO, Ot F32.9 MAJOR DEPRESSIVE DISORDER, SINGLE EPISOD 10/19/2018 EVELYN SAMPSON DO, Ot I1 0 ESSENTIAL (PRIMARY) HYPERTENSION 10/19/2018 EVELYN SAMPSON DO, Ot J44.9 CHRONIC OBSTRUCTIVE PULMONARY DISEASE, U 10/19/2018 EVELYN SAMPSON DO, Ot L08.9 LOCAL INFECTION OF THE SKIN AND SUBCUTAN 10/19/2018 EVELYN SAMPSON DO, Ot N39.0 URINARY TRACT INFECTION, SITE NOT SPECIF 10/19/2018 EVELYN SAMPSON DO, Ot R30.0 DYSURIA 10/19/2018 EVELYN SAMPSON DO, Ot T14.8XXA OTHER INJURY OF UNSPECIFIED BODY REGION, 10/19/2018 EVELYN SAMPSON DO, Ot W57.XXXA BIT/STUNG BY NONVENOM INSECT OTH NONVE 10/19/2018 EVELYN SAMPSON DO, Ot Z79.84 CUSTOMER ACCOUNT ADMINISTRATOR (CURRENT) USE OF ORAL HYPOGLYC 10/19/2018 EVELYN SAMPSON DO, Ot Z86.73 PRSNL HX OF TIA (TIA), AND CEREB INFRC W 10/19/2018 EVELYN SAMPSON DO, Ot Z87.440 PERSONAL HISTORY OF URINARY (TRACT) INFE 10/19/2018 EVELYN SAMPSON DO, Ot Z87.891 PERSONAL HISTORY OF NICOTINE DEPENDENCE 10/19/2018 EVELYN SAMPSON DO, Ot Z90.49 ACQUIRED ABSENCE OF OTHER SPECIFIED PART 10/19/2018 EVELYN SAMPSON DO, Ot Z90.89 ACQUIRED ABSENCE OF OTHER ORGANS 10/19/2018 EVELYN SAMPSON DO, Ot Z91.041 RADIOGRAPHIC DYE ALLERGY STATUS 10/19/2018 EVELYN SAMPSON DO, Ot Z98.51 TUBAL LIGATION STATUS 10/25/2018 EVELYN SAMPSON DO, Ot E11.40 TYPE 2 DIABETES MELLITUS WITH DIABETIC N 10/25/2018 EVELYN SAMPSON DO, Ot E66.01 MORBID (SEVERE) OBESITY DUE TO EXCESS CA 10/25/2018 EVELYN SAMPSON DO, Ot E78.00 PURE HYPERCHOLESTEROLEMIA, UNSPECIFIED 10/25/2018 EVELYN SAMPSON DO, Ot F32.9 MAJOR DEPRESSIVE DISORDER, SINGLE EPISOD 10/25/2018 EVELYN SAMPSON DO, Ot I1 0 ESSENTIAL (PRIMARY) HYPERTENSION 10/25/2018 EVELYN SAMPSON DO, Ot J44.9 CHRONIC OBSTRUCTIVE PULMONARY DISEASE, U 10/25/2018 EVELYN SAMPSON DO, Ot L08.9 LOCAL INFECTION OF THE SKIN AND SUBCUTAN 10/25/2018 EVELYN SAMPSON DO, Ot N39.0 URINARY TRACT INFECTION, SITE NOT SPECIF 10/25/2018 EVELYN SAMPSON DO, Ot R30.0 DYSURIA 10/25/2018 EVELYN SAMPSON DO, Ot T14.8XXA OTHER INJURY OF UNSPECIFIED BODY REGION, 10/25/2018 EVELYN SAMPSON DO, Ot W57.XXXA BIT/STUNG BY NONVENOM INSECT OTH NONVE 10/25/2018 EVELYN SAMPSON DO, Ot Z79.84 INTERMEDIATE (CURRENT) USE OF ORAL HYPOGLYC 10/25/2018 EVELYN SAMPSON DO, Ot Z86.73 PRSNL HX OF TIA (TIA), AND CEREB INFRC W 10/25/2018 EVELYN SAMPSON DO, Ot Z87.440 PERSONAL HISTORY OF URINARY (TRACT) INFE 10/25/2018 EVELYN SAMPSON DO, Ot Z87.891 PERSONAL HISTORY OF NICOTINE DEPENDENCE 10/25/2018 EVELYN SAMPSON DO, Ot Z90.49 ACQUIRED ABSENCE OF OTHER SPECIFIED PART 10/25/2018 EVELYN SAMPSON DO, Ot Z90.89 ACQUIRED ABSENCE OF OTHER ORGANS 10/25/2018 EVELYN SAMPSON DO, Ot Z91.041 RADIOGRAPHIC DYE ALLERGY STATUS 10/25/2018 EVELYN SAMPSON DO, Ot Z98.51 TUBAL LIGATION STATUS 10/26/2018 EVELYN SAMPSON DO, Ot E11.40 TYPE 2 DIABETES MELLITUS WITH DIABETIC N 10/26/2018 EVELYN SAMPSON DO, Ot E66.01 MORBID (SEVERE) OBESITY DUE TO EXCESS CA 10/26/2018 EVELYN SAMPSON DO, Ot E78.00 PURE HYPERCHOLESTEROLEMIA, UNSPECIFIED 10/26/2018 EVELYN SAMPSON DO, Ot F32.9 MAJOR DEPRESSIVE DISORDER, SINGLE EPISOD 10/26/2018 EVELYN SAMPSON DO, Ot I1 0 ESSENTIAL (PRIMARY) HYPERTENSION 10/26/2018 EVELYN SAMPSON DO, Ot J44.9 CHRONIC OBSTRUCTIVE PULMONARY DISEASE, U 10/26/2018 EVELYN SAMPSON DO, Ot L08.9 LOCAL INFECTION OF THE SKIN AND SUBCUTAN 10/26/2018 EVELYN SAMPSON DO, Ot N39.0 URINARY TRACT INFECTION, SITE NOT SPECIF 10/26/2018 EVELYN SAMPSON DO, Ot R30.0 DYSURIA 10/26/2018 EVELYN SAMPSON DO, Ot T14.8XXA OTHER INJURY OF UNSPECIFIED BODY REGION, 10/26/2018 EVELYN SAMPSON DO, Ot W57.XXXA BIT/STUNG BY NONVENOM INSECT OTH NONVE 10/26/2018 EVELYN SAMPSON DO, Ot Z79.84 INTERMEDIATE (CURRENT) USE OF ORAL HYPOGLYC 10/26/2018 EVELYN SAMPSON DO, Ot Z86.73 PRSNL HX OF TIA (TIA), AND CEREB INFRC W 10/26/2018 EVELYN SAMPSON DO, Ot Z87.440 PERSONAL HISTORY OF URINARY (TRACT) INFE 10/26/2018 EVELYN SAMPSON DO, Ot Z87.891 PERSONAL HISTORY OF NICOTINE DEPENDENCE 10/26/2018 EVELYN SAMPSON DO, Ot Z90.49 ACQUIRED ABSENCE OF OTHER SPECIFIED PART 10/26/2018 EVELYN SAMPSON DO, Ot Z90.89 ACQUIRED ABSENCE OF OTHER ORGANS 10/26/2018 EVELYN SAMPSON DO Ot Z91.041 RADIOGRAPHIC DYE ALLERGY STATUS 10/26/2018 EVELYN SAMPSON DO Ot Z98.51 TUBAL LIGATION STATUS 11/10/2018 KATIE BYERS MD E11.9 TYPE 2 DIABETES MELLITUS WITHOUT COMPLIC 11/10/2018 KATIE BYERS MD E66.01 MORBID (SEVERE) OBESITY DUE TO EXCESS CA 11/10/2018 KATIE BYERS MD E78.00 PURE HYPERCHOLESTEROLEMIA, UNSPECIFIED 11/10/2018 KATIE BYERS MD F32.9 MAJOR DEPRESSIVE DISORDER, SINGLE EPISOD 11/10/2018 KATIE BYERS MD G62.9 POLYNEUROPATHY, UNSPECIFIED 11/10/2018 KATIE BYERS MD I10 ESSENTIAL (PRIMARY) HYPERTENSION 11/10/2018 KATIE BYERS MD J44.9 CHRONIC OBSTRUCTIVE PULMONARY DISEASE, U 11/10/2018 KATIE BYERS MD N39.0 URINARY TRACT INFECTION, SITE NOT SPECIF 11/10/2018 KATIE BYERS MD R10.9 UNSPECIFIED ABDOMINAL PAIN 11/10/2018 KATIE BYERS MD Z79.4 CUSTOMER ACCOUNT ADMINISTRATOR (CURRENT) USE OF INSULIN 11/10/2018 KATIE BYERS MD Z86.73 PRSNL HX OF TIA (TIA), AND CEREB INFRC W 11/10/2018 KATIE BYERS MD Z87.891 PERSONAL HISTORY OF NICOTINE DEPENDENCE 11/10/2018 KATIE BYERS MD Z90.49 ACQUIRED ABSENCE OF OTHER SPECIFIED PART 11/10/2018 KATIE BYERS MD Z90.89 ACQUIRED ABSENCE OF OTHER ORGANS 11/10/2018 KATIE BYERS MD Z91.041 RADIOGRAPHIC DYE ALLERGY STATUS 11/10/2018 KATIE BYERS MD Z98.51 TUBAL LIGATION STATUS 11/14/2018 KATIE BYERS MD E11.9 TYPE 2 DIABETES MELLITUS WITHOUT COMPLIC 11/14/2018 KATIE BYERS MD E66.01 MORBID (SEVERE) OBESITY DUE TO EXCESS CA 11/14/2018 KATIE BYERS MD E78.00 PURE HYPERCHOLESTEROLEMIA, UNSPECIFIED 11/14/2018 KATIE BYERS MD F32.9 MAJOR DEPRESSIVE DISORDER, SINGLE EPISOD 11/14/2018 KATIE BYERS MD G62.9 POLYNEUROPATHY, UNSPECIFIED 11/14/2018 KATIE BYERS MD I10 ESSENTIAL (PRIMARY) HYPERTENSION 11/14/2018 KATIE BYERS MD J44.9 CHRONIC OBSTRUCTIVE PULMONARY DISEASE, U 11/14/2018 KATIE BYERS MD N39.0 URINARY TRACT INFECTION, SITE NOT SPECIF 11/14/2018 KATIE BYERS MD R10.9 UNSPECIFIED ABDOMINAL PAIN 11/14/2018 KATIE BYERS MD Z79.4 INTERMEDIATE (CURRENT) USE OF INSULIN 11/14/2018 KATIE BYERS MD Z86.73 PRSNL HX OF TIA (TIA), AND CEREB INFRC W 11/14/2018 KATIE BYERS MD Z87.891 PERSONAL HISTORY OF NICOTINE DEPENDENCE 11/14/2018 KATIE BYERS MD Z90.49 ACQUIRED ABSENCE OF OTHER SPECIFIED PART 11/14/2018 KATIE BYERS MD Z90.89 ACQUIRED ABSENCE OF OTHER ORGANS 11/14/2018 KATIE BYERS MD Z91.041 RADIOGRAPHIC DYE ALLERGY STATUS 11/14/2018 KATIE BYERS MD Z98.51 TUBAL LIGATION STATUS 11/20/2018 JEFFY CERVANTES MD Ot E11.40 TYPE 2 DIABETES MELLITUS WITH DIABETIC N 11/20/2018 JEFFY CERVANTES MD Ot E66 .9 OBESITY, UNSPECIFIED 11/20/2018 JEFFY CERVANTES MD Ot E78.00 PURE HYPERCHOLESTEROLEMIA, UNSPECIFIED 11/20/2018 JEFFY CERVANTES MD Ot E86 .0 DEHYDRATION 11/20/2018 JEFFY CERVANTES MD Ot F17.210 NICOTINE DEPENDENCE, CIGARETTES, UNCOMPL 11/20/2018 JEFFY CERVANTES MD, Ot F32 .9 MAJOR DEPRESSIVE DISORDER, SINGLE EPISOD 11/20/2018 JEFFY CERVANTES MD, Ot I10 ESSENTIAL (PRIMARY) HYPERTENSION 11/20/2018 JEFFY CERVANTES MD, Ot J44 .9 CHRONIC OBSTRUCTIVE PULMONARY DISEASE, U 11/20/2018 JEFFY CERVANTES MD, Ot K25 .9 GASTRIC ULCER, UNSP ACUTE OR CHRONIC, 11/20/2018 JEFFY CERVANTES MD Ot K29.60 OTHER GASTRITIS WITHOUT BLEEDING 11/20/2018 JEFFY CERVANTES MD Ot K31.89 OTHER DISEASES OF STOMACH AND DUODENUM 11/20/2018 JEFFY CERVANTES MD, Ot K44 .9 DIAPHRAGMATIC HERNIA WITHOUT OBSTRUCTION 11/20/2018 JEFFY CERVANTES MD, Ot K56 .7 ILEUS, UNSPECIFIED 11/20/2018 JEFFY CERVANTES MD, Ot M17 .0 BILATERAL PRIMARY OSTEOARTHRITIS OF KNEE 11/20/2018 JEFFY CERVANTES MD Ot M25.551 PAIN IN RIGHT HIP 11/20/2018 JEFFY CERVANTES MD, Ot N17 .9 ACUTE KIDNEY FAILURE, UNSPECIFIED 11/20/2018 JEFFY CERVANTES MD Ot N28 .9 DISORDER OF KIDNEY AND URETER, UNSPECIFI 11/20/2018 JEFFY CERVANTES MD Ot S22.41XA MULTIPLE FRACTURES OF RIBS, RIGHT SIDE, 11/20/2018 JEFFY CERVANTES MD Ot S80.02XA CONTUSION OF LEFT KNEE, INITIAL ENCOUNTE 11/20/2018 JEFFY CERVANTES MD Ot T18.2XXA FOREIGN BODY IN STOMACH, INITIAL ENCOUNT 11/20/2018 JEFFY CERVANTES MD Ot W18.2XXA FALL IN (INTO) SHOWER OR EMPTY BATHTUB, 11/20/2018 JEFFY CERVANTES MD Ot Y92.002 BATHRM OF UNSP NON-INSTITUT RESDNCE SNGL 11/20/2018 JEFFY CERVANTES MD, Ot Z68.42 BODY MASS INDEX (BMI) 45.0-49.9, ADULT 11/20/2018 JEFFY CREVANTES MD Ot Z86.73 PRSNL HX OF TIA (TIA), AND CEREB INFRC W 11/20/2018 JEFFY CERVANTES MD, Ot Z87.440 PERSONAL HISTORY OF URINARY (TRACT) INFE 11/20/2018 JEFFY CERVANTES MD, Ot Z91.041 RADIOGRAPHIC DYE ALLERGY STATUS 11/20/2018 JEFFY CERVANTES MD Ot E11.40 TYPE 2 DIABETES MELLITUS WITH DIABETIC N 11/20/2018 JEFFY CERVANTES MD Ot E66 .9 OBESITY, UNSPECIFIED 11/20/2018 JEFFY CERVANTES MD Ot E78.00 PURE HYPERCHOLESTEROLEMIA, UNSPECIFIED 11/20/2018 JEFFY CERVANTES MD Ot E86 .0 DEHYDRATION 11/20/2018 JEFFY CERVANTES MD Ot F17.210 NICOTINE DEPENDENCE, CIGARETTES, UNCOMPL 11/20/2018 JEFFY CERVANTES MD Ot F32 .9 MAJOR DEPRESSIVE DISORDER, SINGLE EPISOD 11/20/2018 JEFFY CERVANTES MD Ot I10 ESSENTIAL (PRIMARY) HYPERTENSION 11/20/2018 JEFFY CERVANTES MD Ot J44 .9 CHRONIC OBSTRUCTIVE PULMONARY DISEASE, U 11/20/2018 JEFFY CERVANTES MD Ot K25 .9 GASTRIC ULCER, UNSP ACUTE OR CHRONIC, 11/20/2018 JEFFY CERVANTES MD Ot K29.60 OTHER GASTRITIS WITHOUT BLEEDING 11/20/2018 JEFFY CERVANTES MD Ot K44 .9 DIAPHRAGMATIC HERNIA WITHOUT OBSTRUCTION 11/20/2018 JEFFY CERVANTES MD Ot K56 .7 ILEUS, UNSPECIFIED 11/20/2018 JEFFY CERVANTES MD Ot M17 .0 BILATERAL PRIMARY OSTEOARTHRITIS OF KNEE 11/20/2018 JEFFY CERVANTES MD Ot M19.91 PRIMARY OSTEOARTHRITIS, UNSPECIFIED SITE 11/20/2018 JEFFY CERVANTES MD Ot M25.551 PAIN IN RIGHT HIP 11/20/2018 JEFFY CERVANTES MD Ot N28 .9 DISORDER OF KIDNEY AND URETER, UNSPECIFI 11/20/2018 JEFFY CERVANTES MD Ot S22.41XA MULTIPLE FRACTURES OF RIBS, RIGHT SIDE, 11/20/2018 JEFFY CERVANTES MD Ot S80.02XA CONTUSION OF LEFT KNEE, INITIAL ENCOUNTE 11/20/2018 JEFFY CERVANTES MD Ot T18.2XXA FOREIGN BODY IN STOMACH, INITIAL ENCOUNT 11/20/2018 JEFFY CERVANTES MD Ot W18.2XXA FALL IN (INTO) SHOWER OR EMPTY BATHTUB, 11/20/2018 JEFFY CERVANTES MD Ot W19.XXXA UNSPECIFIED FALL, INITIAL ENCOUNTER 11/20/2018 JEFFY CERVANTES MD Ot Y92.002 BATHRM OF [facility] 11/20/2018 JEFFY CERVANTES MD, Ot Z68.42 BODY MASS INDEX (BMI) 45.0-49.9, ADULT 11/20/2018 JEFFY CERVANTES MD, Ot Z86.73 PRSNL HX OF TIA (TIA), AND CEREB INFRC W 11/20/2018 JEFFY CERVANTES MD Ot Z87.440 PERSONAL HISTORY OF URINARY (TRACT) INFE 12/09/2018 ROVENSTINE DO, KARTIK Yates Ot E11.42 TYPE 2 DIABETES MELLITUS WITH DIABETIC P 12/09/2018 ROVENSTINE DOKARTIK Ot E66.01 MORBID (SEVERE) OBESITY DUE TO EXCESS CA 12/09/2018 ROVENSTINE DOKARTIK Ot E78.00 PURE HYPERCHOLESTEROLEMIA, UNSPECIFIED 12/09/2018 ROVENSTINE DOKARTIK Ot F32.9 MAJOR DEPRESSIVE DISORDER, SINGLE EPISOD 12/09/2018 ROVENSTINE DOKARTIK Ot I10 ESSENTIAL (PRIMARY) HYPERTENSION 12/09/2018 ROVENSTINE DOKARTIK Ot J44.9 CHRONIC OBSTRUCTIVE PULMONARY DISEASE, U 12/09/2018 ROVENSTINE DOKARTIK Ot R10.84 GENERALIZED ABDOMINAL PAIN 12/09/2018 ROVENSTINE DOKARTIK Ot R11.2 NAUSEA WITH VOMITING, UNSPECIFIED 12/09/2018 ROVENSTINE DOKARTIK Ot Z68.42 BODY MASS INDEX (BMI) 45.0-49.9, ADULT 12/09/2018 ROVENSTINE DOKARTIK Ot Z79.84 INTERMEDIATE (CURRENT) USE OF ORAL HYPOGLYC 12/09/2018 ROVENSTINE DOKARTIK Ot Z86.73 PRSNL HX OF TIA (TIA), AND CEREB INFRC W 12/09/2018 ROVENSTINE DO, KARTIK Yates Ot Z87.891 PERSONAL HISTORY OF NICOTINE DEPENDENCE 12/09/2018 ROVENSTINE DOKARTIK Ot Z90.49 ACQUIRED ABSENCE OF OTHER SPECIFIED PART 12/09/2018 ROVENSTINE DOKARTIK Ot Z90.89 ACQUIRED ABSENCE OF OTHER ORGANS 12/09/2018 ROVENSTINE DO KARTIK Trudy Ot Z91.041 RADIOGRAPHIC DYE ALLERGY STATUS 12/09/2018 ROVENSTINE DO KARTIK Trudy Ot Z98.51 TUBAL LIGATION STATUS 12/12/2018 ROVENSTINE DO KARTIK L Ot E11.42 TYPE 2 DIABETES MELLITUS WITH DIABETIC P 12/12/2018 ROVENSTINE DO, KARTIK Trudy Ot E66.01 MORBID (SEVERE) OBESITY DUE TO EXCESS CA 12/12/2018 ROVENSTINE DO, KARTIK L Ot E78.00 PURE HYPERCHOLESTEROLEMIA, UNSPECIFIED 12/12/2018 ROVENSTINE DO, KARTIK L Ot F32.9 MAJOR DEPRESSIVE DISORDER, SINGLE EPISOD 12/12/2018 ROVENSTINE DO KARTIK L Ot I10 ESSENTIAL (PRIMARY) HYPERTENSION 12/12/2018 ROVENSTINE DO, KARTIK L Ot J44.9 CHRONIC OBSTRUCTIVE PULMONARY DISEASE, U 12/12/2018 ROVENSTINE DO KARTIK L Ot R10.84 GENERALIZED ABDOMINAL PAIN 12/12/2018 ROVENSTINE DO KARTIK L Ot R11.2 NAUSEA WITH VOMITING, UNSPECIFIED 12/12/2018 ROVENSTINE DO KARTIK L Ot Z68.42 BODY MASS INDEX (BMI) 45.0-49.9, ADULT 12/12/2018 OMAIRAVENSTINE DO KARTIK Trudy Ot Z79.84 INTERMEDIATE (CURRENT) USE OF ORAL HYPOGLYC 12/12/2018 ROVENSTINE DO KARTIK L Ot Z86.73 PRSNL HX OF TIA (TIA), AND CEREB INFRC W 12/12/2018 ROVENSTINE DO KARTIK L Ot Z87.891 PERSONAL HISTORY OF NICOTINE DEPENDENCE 12/12/2018 ROVENSTINE DO KARTIK L Ot Z90.49 ACQUIRED ABSENCE OF OTHER SPECIFIED PART 12/12/2018 ROVENSTINE DO KARTIK L Ot Z90.89 ACQUIRED ABSENCE OF OTHER ORGANS 12/12/2018 ROVENSTINE DO KARTIK L Ot Z91.041 RADIOGRAPHIC DYE ALLERGY STATUS 12/12/2018 ROVENSTINE DO KARTIK L Ot Z98.51 TUBAL LIGATION STATUS 12/20/2018 ROVENSTINE DO KARTIK L Ot E11.42 TYPE 2 DIABETES MELLITUS WITH DIABETIC P 12/20/2018 ROVENSTINE DOKARTIK Ot E66.01 MORBID (SEVERE) OBESITY DUE TO EXCESS CA 12/20/2018 ROVENSTINE DO, KARTIK Yates Ot E78.00 PURE HYPERCHOLESTEROLEMIA, UNSPECIFIED 12/20/2018 ROVENSTINE DO KARTIK Trudy Ot F32.9 MAJOR DEPRESSIVE DISORDER, SINGLE EPISOD 12/20/2018 ROVENSTINE DO KARTIK L Ot I10 ESSENTIAL (PRIMARY) HYPERTENSION 12/20/2018 ROVENSTINE DO KARTIK Trudy Ot J44.9 CHRONIC OBSTRUCTIVE PULMONARY DISEASE, U 12/20/2018 ROVENSTINE DO KARTIK Trudy Ot R10.84 GENERALIZED ABDOMINAL PAIN 12/20/2018 ROVENSTINE DO KARTIK Trudy Ot R11.2 NAUSEA WITH VOMITING, UNSPECIFIED 12/20/2018 ROVENSTINE DO KARTIK Yates Ot Z68.42 BODY MASS INDEX (BMI) 45.0-49.9, ADULT 12/20/2018 ROVENSTINE DO KARTIK Trudy Ot Z79.84 INTERMEDIATE (CURRENT) USE OF ORAL HYPOGLYC 12/20/2018 ROVENSTINE DO KARTIK Trudy Ot Z86.73 PRSNL HX OF TIA (TIA), AND CEREB INFRC W 12/20/2018 ROVENSTINE DO KARTIK Trudy Ot Z87.891 PERSONAL HISTORY OF NICOTINE DEPENDENCE 12/20/2018 ROVENSTINE DO KATRIK Trudy Ot Z90.49 ACQUIRED ABSENCE OF OTHER SPECIFIED PART 12/20/2018 ROVENSTINE DO KARTIK Trudy Ot Z90.89 ACQUIRED ABSENCE OF OTHER ORGANS 12/20/2018 ROVENSTINE DO KARTIK Trudy Ot Z91.041 RADIOGRAPHIC DYE ALLERGY STATUS 12/20/2018 ROVENSTINE DO KARTIK Trudy Ot Z98.51 TUBAL LIGATION STATUS 05/15/2019 PATY HERNADEZ ALTHEA Ot E11.40 TYPE 2 DIABETES MELLITUS WITH DIABETIC N 05/15/2019 PATY HERNADEZ ALTHEA Ot E66.01 MORBID (SEVERE) OBESITY DUE TO EXCESS CA 05/15/2019 PATY HERNADEZ ALTHEA Ot E78.00 PURE HYPERCHOLESTEROLEMIA, UNSPECIFIED 05/15/2019 PATY HERNADEZ ALTHEA Ot F32.9 MAJOR DEPRESSIVE DISORDER, SINGLE EPISOD 05/15/2019 PATY HERNADEZ ALTHEA Ot I10 ESSENTIAL (PRIMARY) HYPERTENSION 05/15/2019 PATY HERNADEZ ALTHEA Ot I25.10 ATHSCL HEART DISEASE OF [place] CORONARY 05/15/2019 NEWMAN DO, ALTHEA Ot I25.2 OLD MYOCARDIAL INFARCTION 05/15/2019 NEWMAN DO, ALTHEA Ot 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 05/15/2019 NEWMAN DO, ALTHEA Ot J44.9 CHRONIC OBSTRUCTIVE PULMONARY DISEASE, U 05/15/2019 NEWMAN DO, ALTHEA Ot M19.91 PRIMARY OSTEOARTHRITIS, UNSPECIFIED SITE 05/15/2019 NEWMAN DO, ALTHEA Ot R00.1 BRADYCARDIA, UNSPECIFIED 05/15/2019 NEWMAN DO, ALTHEA Ot R07.2 PRECORDIAL PAIN 05/15/2019 NEWMAN DO, ATLHEA Ot R11.2 NAUSEA WITH VOMITING, UNSPECIFIED 05/15/2019 NEWMAN DO, ALTHEA Ot R21 RASH AND OTHER NONSPECIFIC SKIN ERUPTION 05/15/2019 NEWMAN DO, ALTHEA Ot Z68.41 BODY MASS INDEX (BMI) 40.0-44.9, ADULT 05/15/2019 NEWMAN DO, ALTHEA Ot Z79.4 CUSTOMER ACCOUNT ADMINISTRATOR (CURRENT) USE OF INSULIN 05/16/2019 NEWMAN DO, ALTHEA Ot E11.40 TYPE 2 DIABETES MELLITUS WITH DIABETIC N 05/16/2019 NEWMAN DO, ALTHEA Ot E66.01 MORBID (SEVERE) OBESITY DUE TO EXCESS CA 05/16/2019 NEWMAN DO, ALTHEA Ot E78.00 PURE HYPERCHOLESTEROLEMIA, UNSPECIFIED 05/16/2019 NEWMAN DO, ALTHEA Ot E78.5 HYPERLIPIDEMIA, UNSPECIFIED 05/16/2019 NWEMAN DO, ALTHEA Ot F32.9 MAJOR DEPRESSIVE DISORDER, SINGLE EPISOD 05/16/2019 NEWMAN DO, ALTHEA Ot I10 ESSENTIAL (PRIMARY) HYPERTENSION 05/16/2019 NEWMAN DO, ALTHEA Ot I25.10 ATHSCL HEART DISEASE OF [place] CORONARY 05/16/2019 NEWMAN DO, ALTHEA Ot I25.2 OLD MYOCARDIAL INFARCTION 05/16/2019 NEWMAN DO, ALTHEA Ot 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84 CUSTOMER ACCOUNT ADMINISTRATOR (CURRENT) USE OF ORAL HYPOGLYC 05/16/2019 PATY DO, ALTHEA Ot Z87.89 1 PERSONAL HISTORY OF NICOTINE DEPENDENCE 05/16/2019 PATY HERNADEZ, ALTHEA Ot E11.40 TYPE 2 DIABETES MELLITUS WITH DIABETIC N 05/16/2019 PATY HERNADEZ ALTHEA Ot E66.01 MORBID (SEVERE) OBESITY DUE TO EXCESS CA 05/16/2019 PATY DO, ALTHEA Ot E78.00 PURE HYPERCHOLESTEROLEMIA, UNSPECIFIED 05/16/2019 PATY DO ALTHEA Ot E78.5 HYPERLIPIDEMIA, UNSPECIFIED 05/16/2019 NEWMAN DO, ALTHEA Ot F32.9 MAJOR DEPRESSIVE DISORDER, SINGLE EPISOD 05/16/2019 PATY HERNADEZ, ALTHEA Ot I10 ESSENTIAL (PRIMARY) HYPERTENSION 05/16/2019 PATY HERNADEZ, ALTHEA Ot I25.10 ATHSCL HEART DISEASE OF [place] CORONARY 05/16/2019 PATY HERNADEZ, ALTHEA Ot I25.2 OLD MYOCARDIAL INFARCTION 05/16/2019 PATY HERNADEZ, ALTHEA Ot 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 05/16/2019 PATY HERNADEZ, ALTHEA Ot J44.9 CHRONIC OBSTRUCTIVE PULMONARY DISEASE, U 05/16/2019 PATY HERNADEZ, ALTHEA Ot M19.91 PRIMARY OSTEOARTHRITIS, UNSPECIFIED SITE 05/16/2019 PATY DO, ALTHEA Ot R00.1 BRADYCARDIA, UNSPECIFIED 05/16/2019 NEWMAN DO, ALTHEA Ot R07.2 PRECORDIAL PAIN 05/16/2019 PATY DO, ALTHEA Ot R11.2 NAUSEA WITH VOMITING, UNSPECIFIED 05/16/2019 NEWMAN DO, ALTHEA Ot R21 RASH AND OTHER NONSPECIFIC SKIN ERUPTION 05/16/2019 PATY HERNADEZ ALTHEA Ot Z68.41 BODY MASS INDEX (BMI) 40.0-44.9, ADULT 05/16/2019 ALTHEA NEWMAN DO Ot Z79.4 INTERMEDIATE (CURRENT) USE OF INSULIN 05/16/2019 ALTHEA NEWMAN DO Ot Z79.84 INTERMEDIATE (CURRENT) USE OF ORAL HYPOGLYC 05/16/2019 ALTHEA NEWMAN DO Ot Z87.89 1 PERSONAL HISTORY OF NICOTINE DEPENDENCE 06/11/2019 BLAYNE MCKEON DO Ot E11. 42 TYPE 2 DIABETES MELLITUS WITH DIABETIC P 06/11/2019 BLAYNE MCKEON DO Ot E66. 01 MORBID (SEVERE) OBESITY DUE TO EXCESS CA 06/11/2019 BLAYNE MCKEON DO Ot E78. 00 PURE HYPERCHOLESTEROLEMIA, UNSPECIFIED 06/11/2019 BLAYNE MCKEON DO Ot E86. 0 DEHYDRATION 06/11/2019 BLAYNE MCKEON DO Ot F32. 9 MAJOR DEPRESSIVE DISORDER, SINGLE EPISOD 06/11/2019 BLAYNE MCKEON DO Ot G89. 29 OTHER CHRONIC PAIN 06/11/2019 BLAYNE MCKEON DO Ot I10 ESSENTIAL (PRIMARY) HYPERTENSION 06/11/2019 BLAYNE MCKEON DO Ot M25.561 PAIN IN RIGHT KNEE 06/11/2019 BLAYNE MCKEON DO Ot M54. 5 LOW BACK PAIN 06/11/2019 BLAYNE MCKEON DO Ot R30. 0 DYSURIA 06/11/2019 BLAYNE MCKEON DO Ot Z68. 41 BODY MASS INDEX (BMI) 40.0-44.9, ADULT 06/11/2019 BLAYNE MCKEON DO Ot Z79. 84 INTERMEDIATE (CURRENT) USE OF ORAL HYPOGLYC 06/11/2019 BLAYNE MCKEON DO Ot Z86. 73 PRSNL HX OF TIA (TIA), AND CEREB INFRC W 06/11/2019 BLAYNE MCKEON DO Ot Z87.891 PERSONAL HISTORY OF NICOTINE DEPENDENCE 06/11/2019 BLAYNE MCKEON DO Ot Z90. 49 ACQUIRED ABSENCE OF OTHER SPECIFIED PART 06/11/2019 BLAYNE MCEKON DO Ot Z90. 89 ACQUIRED ABSENCE OF OTHER ORGANS 06/11/2019 BLAYNE MCKEON DO Ot Z91.041 RADIOGRAPHIC DYE ALLERGY STATUS 06/11/2019 BLAYNE MCEKON DO Ot Z98. 51 TUBAL LIGATION STATUS 06/14/2019 BLAYNE MCKEON DO Ot E11. 42 TYPE 2 DIABETES MELLITUS WITH DIABETIC P 06/14/2019 BLAYNE MCKEON DO Ot E66. 01 MORBID (SEVERE) OBESITY DUE TO EXCESS CA 06/14/2019 BLAYNE MCKEON DO Ot E78. 00 PURE HYPERCHOLESTEROLEMIA, UNSPECIFIED 06/14/2019 BLAYNE MCKEON DO Ot E86. 0 DEHYDRATION 06/14/2019 BLAYNE MCKEON DO Ot F32. 9 MAJOR DEPRESSIVE DISORDER, SINGLE EPISOD 06/14/2019 BLAYNE MCKEON DO Ot G89. 29 OTHER CHRONIC PAIN 06/14/2019 BLAYNE MCKEON DO Ot I10 ESSENTIAL (PRIMARY) HYPERTENSION 06/14/2019 BLAYNE MCKEON DO Ot M25.561 PAIN IN RIGHT KNEE 06/14/2019 BLAYNE MCKEON DO Ot M54. 5 LOW BACK PAIN 06/14/2019 BLAYNE MCKEON DO Ot R30. 0 DYSURIA 06/14/2019 BLAYNE MCKEON DO Ot Z68. 41 BODY MASS INDEX (BMI) 40.0-44.9, ADULT 06/14/2019 BLAYNE MCKEON DO Ot Z79. 84 CUSTOMER ACCOUNT ADMINISTRATOR (CURRENT) USE OF ORAL HYPOGLYC 06/14/2019 BLAYNE MCKEON DO Ot Z86. 73 PRSNL HX OF TIA (TIA), AND CEREB INFRC W 06/14/2019 BLAYNE MCKEON DO Ot Z87.891 PERSONAL HISTORY OF NICOTINE DEPENDENCE 06/14/2019 BLAYNE MCKEON DO Ot Z90. 49 ACQUIRED ABSENCE OF OTHER SPECIFIED PART 06/14/2019 BLAYNE MCKEON DO Ot Z90. 89 ACQUIRED ABSENCE OF OTHER ORGANS 06/14/2019 BLAYNE MCKEON DO Ot Z91.041 RADIOGRAPHIC DYE ALLERGY STATUS 06/14/2019 BLAYNE MCKEON DO Ot Z98. 51 TUBAL LIGATION STATUS 08/20/2019 JUDSTKARTIK BARNES DO Ot E11.40 TYPE 2 DIABETES MELLITUS WITH DIABETIC N 08/20/2019 JUDSTKARTIK BARNES DO Ot E66.01 MORBID (SEVERE) OBESITY DUE TO EXCESS CA 08/20/2019 OMAIRAVENSTINE KARTIK HERNADEZ Ot E78.00 PURE HYPERCHOLESTEROLEMIA, UNSPECIFIED 08/20/2019 JUDSTKARTIK BARNES DO Ot F32.9 MAJOR DEPRESSIVE DISORDER, SINGLE EPISOD 08/20/2019 ROVENSTKARTIK BARNES DO Ot I10 ESSENTIAL (PRIMARY) HYPERTENSION 08/20/2019 ROVENSTINE DO, KARTIK Trudy Ot K52.9 NONINFECTIVE GASTROENTERITIS AND COLITIS 08/20/2019 ROVENSTINE DO, KARTIK L Ot L70.9 ACNE, UNSPECIFIED 08/20/2019 ROVENSTINE DO, KARTIK L Ot R11.2 NAUSEA WITH VOMITING, UNSPECIFIED 08/20/2019 ROVENSTINE DO, KARTIK L Ot Z68.41 BODY MASS INDEX (BMI) 40.0-44.9, ADULT 08/20/2019 ROVENSTINE DO, KARTIK Yates Ot Z79.84 CUSTOMER ACCOUNT ADMINISTRATOR (CURRENT) USE OF ORAL HYPOGLYC 08/20/2019 ROVENSTINE DO, KARTIK Yates Ot Z86.73 PRSNL HX OF TIA (TIA), AND CEREB INFRC W 08/20/2019 ROVENSTINE DO, KARTIK Yates Ot Z87.891 PERSONAL HISTORY OF NICOTINE DEPENDENCE 08/20/2019 ROVENSTINE DO, KARTIK Yates Ot Z91.041 RADIOGRAPHIC DYE ALLERGY STATUS 08/22/2019 ROVENSTINE DO, KARTIK Yates Ot E11.40 TYPE 2 DIABETES MELLITUS WITH DIABETIC N 08/22/2019 ROVENSTINE DO, KARTIK L Ot E66.01 MORBID (SEVERE) OBESITY DUE TO EXCESS CA 08/22/2019 ROVENSTINE DO, KARTIK L Ot E78.00 PURE HYPERCHOLESTEROLEMIA, UNSPECIFIED 08/22/2019 ROVENSTINE DO, KARTIK L Ot F32.9 MAJOR DEPRESSIVE DISORDER, SINGLE EPISOD 08/22/2019 ROVENSTINE DO, KARTIK L Ot I10 ESSENTIAL (PRIMARY) HYPERTENSION 08/22/2019 ROVENSTINE DO, KARTIK L Ot K52.9 NONINFECTIVE GASTROENTERITIS AND COLITIS 08/22/2019 ROVENSTINE DO, KARTIK L Ot L70.9 ACNE, UNSPECIFIED 08/22/2019 ROVENSTINE DO, KARTIK L Ot R11.2 NAUSEA WITH VOMITING, UNSPECIFIED 08/22/2019 ROVENSTINE DO, KARTIK Yates Ot Z68.41 BODY MASS INDEX (BMI) 40.0-44.9, ADULT 08/22/2019 ROVENSTINE DO, KARTIK Yates Ot Z79.84 INTERMEDIATE (CURRENT) USE OF ORAL HYPOGLYC 08/22/2019 ROVENSTINE DO, KARTIK Yates Ot Z86.73 PRSNL HX OF TIA (TIA), AND CEREB INFRC W 08/22/2019 OMAIRAANDREWGABRIELLE HERNADEZ KARTIK Trudy Ot Z87.891 PERSONAL HISTORY OF NICOTINE DEPENDENCE 08/22/2019 LUL HERNADEZ KARTIK Trudy Ot Z91.041 RADIOGRAPHIC DYE ALLERGY STATUS Procedures Code Description [place] [address] ROUT INE VENIPUNCTURE 03/16/2012 12289 UA W / CULTURE IF INDICATED 03/16/2012 48601 URIN E DRUG SCREEN (IN-HOUSE) 03/16/2012 16952 A1C (IN-HOUSE) 03/16/2012 89700 CBC 03/16/2012 86171 CMP 03/16/2012 35477 LIPI D PANEL 03/16/2012 [id number] GF R CALC (RESULT ONLY) 03/16/2012 14042 CULT URE URINE 03/18/201281385 JOIN T INJECTION- LARGE JOINT (SPECIFY MEDCIN DESCRIPTION) 03/22 64256 ROUT INE VENIPUNCTURE 03/08/2013 99223 A1C (IN-HOUSE) 03/08/2013 [id number] GF R CALC (RESULT ONLY) 03/08/2013 85774 CMP 03/08/2013 26029 LIPI D PANEL 03/08/2013 22549 JOIN T INJECTION- LARGE JOINT (SPECIFY MEDCIN DESCRIPTION) 06/06 42586 UA W / CULTURE IF INDICATED 06/06/2013 26913 CULT URE URINE 06/08/2013 Urology Juilan Holbrook 09/26/2013 43779 A1C (IN-HOUSE) 09/26/2013 03656 UA W / CULTURE IF INDICATED 09/26/2013 26506 CULT URE URINE 09/28/2013 13532 OXIM ETRY - OVERNIGHT 10/07/2013 83841 A1C (IN-HOUSE) 02/06/2014 32646 JOIN T INJECTION- LARGE JOINT (SPECIFY MEDCIN DESCRIPTION) 02/06 [id number] DEPO MEDROL 80 MG INJ 02/06/2014 26170 ROUT INE VENIPUNCTURE 03/10/2014 [id number] GF R CALC (RESULT ONLY) 03/10/2014 31921 CMP 03/10/2014 [id number] EX CISION OF STOMACH, PYLORUS, ENDO, DIAG 11/18/2018 [id number] EX TIRPATION OF MATTER FROM STOMACH, PYLO 11/18/2018 Results Test Result Range Comp. Metabolic Panel (14) - 01/14/16 17 :38 Glucose, Serum 165 mg/dL 65-99 BUN 17 [...] IU/L 0-32 Microalb/Creat Ratio, Rand Ur - 7 08:04 Creatinine, Urine 184.8 mg/dL Not Estab. Microalbumin, Urine 56.6 ug/mL Not Estab . Microalb/Creat Ratio 30.6 mg/g creat 0.0 -30.0 Urine Culture, Routine - 06/03/16 08:04 Urine Culture, Routine Note CULTURE, URINE - 01/26/17 15:01 Urine Culture, Routine Final report NRG Result 1 Escherichia coli NRG Antimicrobial Susceptibility N RG Urine Culture, Routine - 01/26/17 15:01 Urine Culture, Routine Note CMP - 10/06/17 16:29 GLUCOSE 121 mg/dL 65-99 UREA NITROGEN (BUN) 23 mg/dL 7-25 CREATININE 0.90 mg/dL 0.50-0.99 eGFR NON-AFR. PRYDEINIG 69 mL/min/1.73m2 > OR = 60 eGFR 79 mL/min/1.73m2 > OR = 60 BUN/CREATININE RATIO NOT APPLICABLE (calc) 6-22 SODIUM 139 mmol/L 135-146 POTASSIUM 4.0 mmol/L 3.5-5.3 CHLORIDE 101 mmol/L 98-110 CARBON DIOXIDE 26 mmol/L 20-31 CALCIUM 9.1 mg/dL 8.6-10.4 PROTEIN, TOTAL 7.5 g/dL 6.1-8.1 ALBUMIN 3.9 g/dL 3.6-5.1 GLOBULIN 3.6 g/dL (calc) 1.9-3.7 ALBUMIN/GLOBULIN RATIO 1.1 (calc) 1.0-2. 5 BILIRUBIN, TOTAL 0.6 mg/dL 0.2-1.2 ALKALINE PHOSPHATASE 61 U/L 33-130 AST 42 U/L 10-35 ALT 26 U/L 6-29 CBC - 03/29/18 15:09 WHITE BLOOD CELL COUNT 6.5 Thousand/uL 3 .8-10.8 RED BLOOD CELL COUNT 4.17 Million/uL 3.8 0-5.10 HEMOGLOBIN 13.4 g/dL 11.7-15.5 HEMATOCRIT 39.1 % 35.0-45.0 MCV 93.8 fL 80.0-100.0 MCH 32.1 pg 27.0-33.0 MCHC 34.3 g/dL 32.0-36.0 RDW 12.4 % 11.0-15.0 PLATELET COUNT 250 Thousand/uL 140-400 MPV 9.2 fL 7.5-12.5 ABSOLUTE NEUTROPHILS 4225 cells/uL 1500- 7800 ABSOLUTE LYMPHOCYTES 1697 cells/uL 850-3 900 ABSOLUTE MONOCYTES 397 cells/uL 200-950 ABSOLUTE EOSINOPHILS 150 cells/uL 15-500 ABSOLUTE BASOPHILS 33 cells/uL 0-200 NEUTROPHILS 65 % NRG LYMPHOCYTES 26.1 % NRG MONOCYTES 6.1 % NRG EOSINOPHILS 2.3 % NRG BASOPHILS 0.5 % NRG Complete blood count (CBC) with automate d white blood cell (WBC) differential - 09/17/18 18:00 Blood leukocytes automated count (number/volume) 9.1 10*3/uL 4.3-11.0 Blood erythrocytes automated count (number/volume) 3.92 10*6/uL 4.35-5.85 Venous blood hemoglobin measurement (mass/volume) 13.0 g/dL 11.5-16.0 Blood hematocrit (volume fraction) 39 % 35-52 Automated erythrocyte mean corpuscular volume 100 [foz_us] 80-99 Automated erythrocyte mean corpuscular h emoglobin (mass per erythrocyte) 33 pg 25-34 Automated erythrocyte mean corpuscular h emoglobin concentration measurement (mass/volume) 33 g/dL 32-36 Automated erythrocyte distribution width ratio 13. 7 % 10.0- 14.5 Automated blood platelet count (count/volume) 235 10*3/uL 130-400 Automated blood platelet mean volume measurement 9.0 [foz_us] 7.4-10.4 Automated blood neutrophils/100 leukocytes 62 % 42-75 Automated blood lymphocytes/100 leukocytes 29 % 12-44 Blood monocytes/100 leukocytes 8 % 0-12 Automated blood eosinophils/100 leukocytes 1 % 0-10 Automated blood basophils/100 leukocytes 0 % 0-10 Blood neutrophils automated count (number/volume) 5.6 10*3 1.8-7.8 Blood lymphocytes automated count (number/volume) 2.7 10*3 1.0-4.0 Blood monocytes automated count (number/volume) 0. 7 10*3 0.0-1.0 Automated eosinophil count 0.1 10*3/uL 0 .0-0.3 Automated blood basophil count (count/volume) 0.0 10*3/uL 0.0-0.1 Blood lactic acid measurement (moles/vol ume) - 09/17/18 18:00 Blood lactic acid measurement (moles/volume) 1.56 mmol/L 0.50-2.00 Comprehensive metabolic panel - 09/17/18 18:00 Serum or plasma sodium measurement (moles/volume) 142 mmol/L 135-145 Serum or plasma potassium measurement (moles/volume) 4.3 mmol/L 3.6-5.0 Serum or plasma chloride measurement (moles/volume) 104 mmol/L 98-107 Carbon dioxide 26 mmol/L 21-32 Serum or plasma anion gap determination (moles/volume) 12 mmol/L 5-14 Serum or plasma urea nitrogen measurement (mass/volume ) 29 mg/dL 7-18 Serum or plasma creatinine measurement (mass/volume) 1.04 mg/dL 0.60-1.30 Serum or plasma urea nitrogen/creatinine mass ratio 28 NRG Serum or plasma creatinine measurement w ith calculation of estimated glomerular filtration rate 54 NRG Serum or plasma glucose measurement (mass/volume) 163 mg/dL 70-105 Serum or plasma calcium measurement (mass/volume) 9.4 mg/dL 8.5-10.1 Serum or plasma total bilirubin measurement (mass/volu me) 0.6 mg/dL 0.1-1.0 Serum or plasma alkaline phosphatase olivia surement (enzymatic activity/volume) 68 U/L 40-136 Serum or plasma aspartate aminotransfera se measurement (enzymatic activity/volume) 14 U/L 5-34 Serum or plasma alanine aminotransferase measurement (enzymatic activity/volume) 14 U/L 0-55 Serum or plasma protein measurement (mass/volume) 7.6 g/dL 6.4-8.2 Serum or plasma albumin measurement (mass/volume) 3.8 g/dL 3.2-4.5 CALCIUM CORRECTED 9.6 mg/dL 8.5-10.1 Erythrocyte sedimentation rate by ginny gren method - 09/17/18 18:00 Erythrocyte sedimentation rate by westergren method 12 mm 0- 30 Serum or plasma C reactive protein measu rement (mass/volume) - 09/17/18 18:00 Serum or plasma C reactive protein measurement (mass/v olume) 0.65 mg/dL 0.00-0.50 Bacterial blood culture - 09/17/18 18:00 Bacterial blood culture NG NRG Hemoglobin A1c - 09/17/18 18:00 Blood hemoglobin A1C measurement (mass/volume) 7.9 % 4.0-5.6 MEAN BLOOD GLUCOSE 180 % <=126 Gram stain microscopy - 09/17/18 18:00 Gram stain microscopy Many Gram positive cocci in clusters NRG Bacteria identification in wound by cult ure - 09/17/18 18:00 Bacteria identification in wound by culture SEE CO MMEN NRG FREE TEXT EXTERNAL SUSCEPTIBILITY REPORTED 09/20/18 12:35 NRG QUANTITY OF GROWTH . NR FREE TEXT ENTRY 2 ID REPORTED 09/19/18 15:40 NRG Dirithromycin susceptibility test by dis k diffusion - 09/17/18 18:00 Oxacillin susceptibility test by minimum inhibitory co ncentration > NRG Clindamycin susceptibility test by minimum inhibitory concentration <= NRG Erythromycin susceptibility test by minimum inhibitory concentration > NRG Trimethoprim/sulfamethoxazole susceptibi lity test by minimum inhibitoryconcentration > NRG Vancomycin susceptibility test by minimum inhibitory c oncentration 1 NRG Levofloxacin susceptibility test by minimum inhibitory concentration 4 NRG Rifampin susceptibility test by minimum inhibitory con centration <= NRG Cefazolin susceptibility test by minimum inhibitory co ncentration > NRG Linezolid susceptibility test by minimum inhibitory co ncentration <= NRG Penicillin G susceptibility test by minimum inhibitory concentration > NRG Moxifloxacin susceptibility test by minimum inhibitory concentration 1 NRG Minocycline susc GLORIA <= NRG Bacterial blood culture - 09/17/18 18:51 Bacterial blood culture NG NRG Capillary blood glucose measurement by g lucometer (mass/volume) - 09/18/18 05:18 Capillary blood glucose measurement by glucometer (mas s/volume) 316 mg/dL 70-110 Complete blood count (CBC) with automate d white blood cell (WBC) differential - 09/18/18 05:46 Blood leukocytes automated count (number/volume) 6.5 10*3/uL 4.3-11.0 Blood erythrocytes automated count (number/volume) 3.79 10*6/uL 4.35-5.85 Venous blood hemoglobin measurement (mass/volume) 12.4 g/dL 11.5-16.0 Blood hematocrit (volume fraction) 37 % 35-52 Automated erythrocyte mean corpuscular volume 98 [ foz_us] 80-99 Automated erythrocyte mean corpuscular h emoglobin (mass per erythrocyte) 33 pg 25-34 Automated erythrocyte mean corpuscular h emoglobin concentration measurement (mass/volume) 34 g/dL 32-36 Automated erythrocyte distribution width ratio 13. 8 % 10.0- 14.5 Automated blood platelet count (count/volume) 226 10*3/uL 130-400 Automated blood platelet mean volume measurement 9.3 [foz_us] 7.4-10.4 Automated blood neutrophils/100 leukocytes 81 % 42-75 Automated blood lymphocytes/100 leukocytes 18 % 12-44 Blood monocytes/100 leukocytes 1 % 0-12 Automated blood eosinophils/100 leukocytes 0 % 0-10 Automated blood basophils/100 leukocytes 0 % 0-10 Blood neutrophils automated count (number/volume) 5.2 10*3 1.8-7.8 Blood lymphocytes automated count (number/volume) 1.1 10*3 1.0-4.0 Blood monocytes automated count (number/volume) 0. 1 10*3 0.0-1.0 Automated eosinophil count 0.0 10*3/uL 0 .0-0.3 Automated blood basophil count (count/volume) 0.0 10*3/uL 0.0-0.1 Comprehensive metabolic panel - 09/18/18 05:46 Serum or plasma sodium measurement (moles/volume) 134 mmol/L 135-145 Serum or plasma potassium measurement (moles/volume) 4.2 mmol/L 3.6-5.0 Serum or plasma chloride measurement (moles/volume) 104 mmol/L 98-107 Carbon dioxide 21 mmol/L 21-32 Serum or plasma anion gap determination (moles/volume) 9 mmol/L 5-14 Serum or plasma urea nitrogen measurement (mass/volume ) 27 mg/dL 7-18 Serum or plasma creatinine measurement (mass/volume) 1.05 mg/dL 0.60-1.30 Serum or plasma urea nitrogen/creatinine mass ratio 26 NRG Serum or plasma creatinine measurement w ith calculation of estimated glomerular filtration rate 53 NRG Serum or plasma glucose measurement (mass/volume) 317 mg/dL 70-105 Serum or plasma calcium measurement (mass/volume) 9.0 mg/dL 8.5-10.1 Serum or plasma total bilirubin measurement (mass/volu me) 0.5 mg/dL 0.1-1.0 Serum or plasma alkaline phosphatase olivia surement (enzymatic activity/volume) 62 U/L 40-136 Serum or plasma aspartate aminotransfera se measurement (enzymatic activity/volume) 14 U/L 5-34 Serum or plasma alanine aminotransferase measurement (enzymatic activity/volume) 14 U/L 0-55 Serum or plasma protein measurement (mass/volume) 6.9 g/dL 6.4-8.2 Serum or plasma albumin measurement (mass/volume) 3.4 g/dL 3.2-4.5 CALCIUM CORRECTED 9.5 mg/dL 8.5-10.1 Capillary blood glucose measurement by g lucometer (mass/volume) - 09/18/18 11:03 Capillary blood glucose measurement by glucometer (mas s/volume) 261 mg/dL 70-110 Capillary blood glucose measurement by g lucometer (mass/volume) - 09/18/18 16:35 Capillary blood glucose measurement by glucometer (mas s/volume) 301 mg/dL 70-110 Complete urinalysis with reflex to cultu re - 10/19/18 13:45 Urine color determination YELLOW NRG Urine clarity determination CLOUDY NR G Urine pH measurement by test strip 6.0 5-9 Specific gravity of urine by test strip 1.025 1.016-1.022 Urine protein assay by test strip, semi-quantitative 2+ NEGATIVE Urine glucose detection by automated test strip NE GATIVE NEGATIVE Erythrocytes detection in urine sediment by light micr oscopy TRACE NEGATIVE Urine ketones detection by automated test strip NE GATIVE NEGATIVE Urine nitrite detection by test strip NEGATIVE NEGATIVE Urine total bilirubin detection by test strip NEGA TIVE NEGATIVE Urine urobilinogen measurement by automated test strip (mass/volume) 0.2 mg/dL NORMAL Urine leukocyte esterase detection by dipstick TRA CE NEGATIVE Automated urine sediment erythrocyte cou nt by microscopy (number/high power field) [HPF] NRG Automated urine sediment leukocyte count by microscopy (number/high power field) [HPF] NRG Bacteria detection in urine sediment by light microsco py LARGE NRG Squamous epithelial cells detection in u rine sediment by light microscopy 10-25 NRG Crystals detection in urine sediment by light microsco py NONE NRG Casts detection in urine sediment by light microscopy NONE NRG Mucus detection in urine sediment by light microscopy NONE NRG Complete urinalysis with reflex to culture YES NRG Bacterial urine culture - 10/19/18 13:45 Bacterial urine culture [id number] NRG COLONY COUNT >100,000/ML NRG FTX;REPORTABLE SUSCEPTIBILITY REPORTED 10/22 12:30 NRG Dirithromycin susceptibility test by dis k diffusion - 10/19/18 13:45 Gentamicin susceptibility test by minimum inhibitory c oncentration <= NRG Trimethoprim/sulfamethoxazole susceptibi lity test by minimum inhibitoryconcentration <= NRG Levofloxacin susceptibility test by minimum inhibitory concentration <= NRG Ampicillin susceptibility test by minimum inhibitory c oncentration > NRG Cefazolin susceptibility test by minimum inhibitory co ncentration > NRG Ceftriaxone susceptibility test by minimum inhibitory concentration > NRG Ciprofloxacin susceptibility test by minimum inhibitor y concentration <= NRG Meropenem susceptibility test by minimum inhibitory co ncentration <= NRG Nitrofurantoin susceptibility test by mi nimum inhibitory concentration > NRG Amoxicillin and clavulanate potassium susc GLORIA > NRG Blood CBC with ordered manual differenti al panel - 11/10/18 16:10 Blood leukocytes automated count (number/volume) 7.6 10*3/uL 4.3-11.0 Blood erythrocytes automated count (number/volume) 4.10 10*6/uL 4.35-5.85 Venous blood hemoglobin measurement (mass/volume) 13.5 g/dL 11.5-16.0 Blood hematocrit (volume fraction) 40 % 35-52 Automated erythrocyte mean corpuscular volume 98 [ foz_us] 80-99 Automated erythrocyte mean corpuscular h emoglobin (mass per erythrocyte) 33 pg 25-34 Automated erythrocyte mean corpuscular h emoglobin concentration measurement (mass/volume) 34 g/dL 32-36 Automated erythrocyte distribution width ratio 12. 8 % 10.0- 14.5 Automated blood platelet count (count/volume) 241 10*3/uL 130-400 Automated blood platelet mean volume measurement 9.2 [foz_us] 7.4-10.4 Blood monocytes/100 leukocytes 5 % NRG Manual blood segmented neutrophils/100 leukocytes 51 % NRG Blood band neutrophils/100 leukocytes 15 % NRG Manual blood lymphocytes/100 leukocytes 28 % NRG Manual eosinophils/100 leukocytes in nose 1 % NRG Blood erythrocyte morphology finding identification NORMAL [facility] Comprehensive metabolic panel - 11/10/18 16:10 Serum or plasma sodium measurement (moles/volume) 137 mmol/L 135-145 Serum or plasma potassium measurement (moles/volume) 4.9 mmol/L 3.6-5.0 Serum or plasma chloride measurement (moles/volume) 98 mmol/L 98-107 Carbon dioxide 23 mmol/L 21-32 Serum or plasma anion gap determination (moles/volume) 16 mmol/L 5-14 Serum or plasma urea nitrogen measurement (mass/volume ) 23 mg/dL 7-18 Serum or plasma creatinine measurement (mass/volume) 0.92 mg/dL 0.60-1.30 Serum or plasma urea nitrogen/creatinine mass ratio 25 NRG Serum or plasma creatinine measurement w ith calculation of estimated glomerular filtration rate > NRG Serum or plasma glucose measurement (mass/volume) 184 mg/dL 70-105 Serum or plasma calcium measurement (mass/volume) 9.2 mg/dL 8.5-10.1 Serum or plasma total bilirubin measurement (mass/volu me) 0.3 mg/dL 0.1-1.0 Serum or plasma alkaline phosphatase olivia surement (enzymatic activity/volume) 70 U/L 40-136 Serum or plasma aspartate aminotransfera se measurement (enzymatic activity/volume) 16 U/L 5-34 Serum or plasma alanine aminotransferase measurement (enzymatic activity/volume) 15 U/L 0-55 Serum or plasma protein measurement (mass/volume) 7.9 g/dL 6.4-8.2 Serum or plasma albumin measurement (mass/volume) 3.8 g/dL 3.2-4.5 CALCIUM CORRECTED 9.4 mg/dL 8.5-10.1 Serum or plasma C reactive protein measu rement (mass/volume) - 11/10/18 16:10 Serum or plasma C reactive protein measurement (mass/v olume) 0.29 mg/dL 0.00-0.50 Blood lactic acid measurement (moles/vol ume) - 11/10/18 16:29 Blood lactic acid measurement (moles/volume) 2.69 mmol/L 0.50-2.00 Complete urinalysis with reflex to cultu re - 11/10/18 16:29 Urine color determination YELLOW NRG Urine clarity determination CLOUDY NR G Urine pH measurement by test strip 6.0 5-9 Specific gravity of urine by test strip 1.020 1.016-1.022 Urine protein assay by test strip, semi-quantitative TRACE NEGATIVE Urine glucose detection by automated test strip NE GATIVE NEGATIVE Erythrocytes detection in urine sediment by light micr oscopy 2+ NEGATIVE Urine ketones detection by automated test strip NE GATIVE NEGATIVE Urine nitrite detection by test strip POSITIVE NEGATIVE Urine total bilirubin detection by test strip NEGA TIVE NEGATIVE Urine urobilinogen measurement by automated test strip (mass/volume) 0.2 mg/dL NORMAL Urine leukocyte esterase detection by dipstick 3+ NEGATIVE Automated urine sediment erythrocyte cou nt by microscopy (number/high power field) [HPF] NRG Automated urine sediment leukocyte count by microscopy (number/high power field) TNTC NRG Bacteria detection in urine sediment by light microsco py LARGE NRG Squamous epithelial cells detection in u rine sediment by light microscopy 5-10 NRG Crystals detection in urine sediment by light microsco py NONE NRG Casts detection in urine sediment by light microscopy NONE NRG Mucus detection in urine sediment by light microscopy NEGATIVE NRG Complete urinalysis with reflex to culture YES NRG Complete urinalysis with reflex to cultu re - 11/10/18 17:30 Urine color determination YELLOW NRG Urine clarity determination CLOUDY NR G Urine pH measurement by test strip 6.0 5-9 Specific gravity of urine by test strip 1.010 1.016-1.022 Urine protein assay by test strip, semi-quantitative NEGATIVE NEGATIVE Urine glucose detection by automated test strip NE GATIVE NEGATIVE Erythrocytes detection in urine sediment by light micr oscopy 1+ NEGATIVE Urine ketones detection by automated test strip NE GATIVE NEGATIVE Urine nitrite detection by test strip POSITIVE NEGATIVE Urine total bilirubin detection by test strip NEGA TIVE NEGATIVE Urine urobilinogen measurement by automated test strip (mass/volume) 0.2 mg/dL NORMAL Urine leukocyte esterase detection by dipstick 2+ NEGATIVE Automated urine sediment erythrocyte cou nt by microscopy (number/high power field) [HPF] NRG Automated urine sediment leukocyte count by microscopy (number/high power field) > [HPF] NRG Bacteria detection in urine sediment by light microsco py LARGE NRG Squamous epithelial cells detection in u rine sediment by light microscopy 0-2 NRG Crystals detection in urine sediment by light microsco py NONE NRG Casts detection in urine sediment by light microscopy NONE NRG Mucus detection in urine sediment by light microscopy SMALL NRG Complete urinalysis with reflex to culture YES NRG Bacterial urine culture - 11/10/18 17:30 Bacterial urine culture [id number] NRG COLONY COUNT >100,000/ML NRG FTX;REPORTABLE SUSCEPTIBILITY REPORTED 11-13-18 05. NRG Dirithromycin susceptibility test by dis k diffusion - 11/10/18 17:30 Gentamicin susceptibility test by minimum inhibitory c oncentration <= NRG Levofloxacin susceptibility test by minimum inhibitory concentration <= NRG Ampicillin susceptibility test by minimum inhibitory c oncentration > NRG Cefazolin susceptibility test by minimum inhibitory co ncentration > NRG Ceftriaxone susceptibility test by minimum inhibitory concentration <= NRG Ciprofloxacin susceptibility test by minimum inhibitor y concentration <= NRG Meropenem susceptibility test by minimum inhibitory co ncentration <= NRG Nitrofurantoin susceptibility test by mi nimum inhibitory concentration > NRG Amoxicillin and clavulanate potassium susc GLORIA > NRG Serum or plasma lactate measurement (mol es/volume) - 11/10/18 18:55 Serum or plasma lactate measurement (moles/volume) 2.65 mmol/L 0.50-2.00 Capillary blood glucose measurement by g lucometer (mass/volume) - 11/17/18 20:28 Capillary blood glucose measurement by glucometer (mas s/volume) 312 mg/dL 70-110 Complete blood count (CBC) with automate d white blood cell (WBC) differential - 11/17/18 20:37 Blood leukocytes automated count (number/volume) 6.4 10*3/uL 4.3-11.0 Blood erythrocytes automated count (number/volume) 3.53 10*6/uL 4.35-5.85 Venous blood hemoglobin measurement (mass/volume) 11.6 g/dL 11.5-16.0 Blood hematocrit (volume fraction) 34 % 35-52 Automated erythrocyte mean corpuscular volume 98 [ foz_us] 80-99 Automated erythrocyte mean corpuscular h emoglobin (mass per erythrocyte) 33 pg 25-34 Automated erythrocyte mean corpuscular h emoglobin concentration measurement (mass/volume) 34 g/dL 32-36 Automated erythrocyte distribution width ratio 13. 3 % 10.0- 14.5 Automated blood platelet count (count/volume) 173 10*3/uL 130-400 Automated blood platelet mean volume measurement 9.5 [foz_us] 7.4-10.4 Automated blood neutrophils/100 leukocytes 63 % 42-75 Automated blood lymphocytes/100 leukocytes 26 % 12-44 Blood monocytes/100 leukocytes 7 % 0-12 Automated blood eosinophils/100 leukocytes 4 % 0-10 Automated blood basophils/100 leukocytes 0 % 0-10 Blood neutrophils automated count (number/volume) 4.1 10*3 1.8-7.8 Blood lymphocytes automated count (number/volume) 1.7 10*3 1.0-4.0 Blood monocytes automated count (number/volume) 0. 4 10*3 0.0-1.0 Automated eosinophil count 0.2 10*3/uL 0 .0-0.3 Automated blood basophil count (count/volume) 0.0 10*3/uL 0.0-0.1 PT panel in platelet poor plasma by coag ulation assay - 11/17/18 20:37 Prothrombin time (PT) in platelet poor plasma by coagu lation assay 14.8 s 12.2-14.7 INR in platelet poor plasma or blood by coagulation as say 1.1 0.8-1.4 Activated partial thromboplastin time (a PTT) in platelet poor plasma bycoagulation assay - 11/17/18 20:37 Activated partial thromboplastin time (a PTT) in platelet poor plasma bycoagulation assay 30 s 24-35 Comprehensive metabolic panel - 11/17/18 20:37 Serum or plasma sodium measurement (moles/volume) 134 mmol/L 135-145 Serum or plasma potassium measurement (moles/volume) 5.3 mmol/L 3.6-5.0 Serum or plasma chloride measurement (moles/volume) 107 mmol/L 98-107 Carbon dioxide 15 mmol/L 21-32 Serum or plasma anion gap determination (moles/volume) 12 mmol/L 5-14 Serum or plasma urea nitrogen measurement (mass/volume ) 35 mg/dL 7-18 Serum or plasma creatinine measurement (mass/volume) 2.13 mg/dL 0.60-1.30 Serum or plasma urea nitrogen/creatinine mass ratio 16 NRG Serum or plasma creatinine measurement w ith calculation of estimated glomerular filtration rate 23 NRG Serum or plasma glucose measurement (mass/volume) 131 mg/dL 70-105 Serum or plasma calcium measurement (mass/volume) 8.5 mg/dL 8.5-10.1 Serum or plasma total bilirubin measurement (mass/volu me) 0.2 mg/dL 0.1-1.0 Serum or plasma alkaline phosphatase olivia surement (enzymatic activity/volume) 53 U/L 40-136 Serum or plasma aspartate aminotransfera se measurement (enzymatic activity/volume) 14 U/L 5-34 Serum or plasma alanine aminotransferase measurement (enzymatic activity/volume) 11 U/L 0-55 Serum or plasma protein measurement (mass/volume) 6.4 g/dL 6.4-8.2 Serum or plasma albumin measurement (mass/volume) 3.1 g/dL 3.2-4.5 CALCIUM CORRECTED 9.2 mg/dL 8.5-10.1 Magnesium - 11/17/18 20:37 Magnesium 1.3 mg/dL 1.8-2.4 Serum or plasma creatine kinase measurem ent (enzymatic activity/volume) - 11/17/18 20:37 Serum or plasma creatine kinase measurem ent (enzymatic activity/volume) 91 U/L 29-168 Serum or plasma troponin i.cardiac measu rement (mass/volume) - 11/17/18 20:37 Serum or plasma troponin i.cardiac measurement (mass/v olume) < ng/mL <0.028 Complete urinalysis with reflex to cultu re - 11/17/18 20:53 Urine color determination YELLOW NRG Urine clarity determination CLEAR NR G Urine pH measurement by test strip 5 5-9 Specific gravity of urine by test strip 1.015 1.016-1.022 Urine protein assay by test strip, semi-quantitative 1+ NEGATIVE Urine glucose detection by automated test strip NE GATIVE NEGATIVE Erythrocytes detection in urine sediment by light micr oscopy NEGATIVE NEGATIVE Urine ketones detection by automated test strip NE GATIVE NEGATIVE Urine nitrite detection by test strip NEGATIVE NEGATIVE Urine total bilirubin detection by test strip NEGA TIVE NEGATIVE Urine urobilinogen measurement by automated test strip (mass/volume) NORMAL NORMAL Urine leukocyte esterase detection by dipstick NEG ATIVE NEGATIVE Automated urine sediment erythrocyte cou nt by microscopy (number/high power field) RARE NRG Automated urine sediment leukocyte count by microscopy (number/high power field) RARE NRG Bacteria detection in urine sediment by light microsco py TRACE NRG Squamous epithelial cells detection in u rine sediment by light microscopy >50 NRG Crystals detection in urine sediment by light microsco py NONE NRG Casts detection in urine sediment by light microscopy NONE NRG Mucus detection in urine sediment by light microscopy NEGATIVE NRG Complete urinalysis with reflex to culture NO NRG Serum or plasma troponin i.cardiac measu rement (mass/volume) - 11/17/18 22:42 Serum or plasma troponin i.cardiac measurement (mass/v olume) < ng/mL <0.028 Complete blood count (CBC) with automate d white blood cell (WBC) differential - 11/18/18 05:38 Blood leukocytes automated count (number/volume) 5.9 10*3/uL 4.3-11.0 Blood erythrocytes automated count (number/volume) 3.58 10*6/uL 4.35-5.85 Venous blood hemoglobin measurement (mass/volume) 11.7 g/dL 11.5-16.0 Blood hematocrit (volume fraction) 35 % 35-52 Automated erythrocyte mean corpuscular volume 98 [ foz_us] 80-99 Automated erythrocyte mean corpuscular h emoglobin (mass per erythrocyte) 33 pg 25-34 Automated erythrocyte mean corpuscular h emoglobin concentration measurement (mass/volume) 34 g/dL 32-36 Automated erythrocyte distribution width ratio 13. 4 % 10.0- 14.5 Automated blood platelet count (count/volume) 176 10*3/uL 130-400 Automated blood platelet mean volume measurement 9.1 [foz_us] 7.4-10.4 Automated blood neutrophils/100 leukocytes 71 % 42-75 Automated blood lymphocytes/100 leukocytes 19 % 12-44 Blood monocytes/100 leukocytes 7 % 0-12 Automated blood eosinophils/100 leukocytes 4 % 0-10 Automated blood basophils/100 leukocytes 0 % 0-10 Blood neutrophils automated count (number/volume) 4.2 10*3 1.8-7.8 Blood lymphocytes automated count (number/volume) 1.1 10*3 1.0-4.0 Blood monocytes automated count (number/volume) 0. 4 10*3 0.0-1.0 Automated eosinophil count 0.2 10*3/uL 0 .0-0.3 Automated blood basophil count (count/volume) 0.0 10*3/uL 0.0-0.1 Comprehensive metabolic panel - 11/18/18 05:38 Serum or plasma sodium measurement (moles/volume) 135 mmol/L 135-145 Serum or plasma potassium measurement (moles/volume) 5.0 mmol/L 3.6-5.0 Serum or plasma chloride measurement (moles/volume) 110 mmol/L 98-107 Carbon dioxide 16 mmol/L 21-32 Serum or plasma anion gap determination (moles/volume) 9 mmol/L 5-14 Serum or plasma urea nitrogen measurement (mass/volume ) 26 mg/dL 7-18 Serum or plasma creatinine measurement (mass/volume) 1.54 mg/dL 0.60-1.30 Serum or plasma urea nitrogen/creatinine mass ratio 17 NRG Serum or plasma creatinine measurement w ith calculation of estimated glomerular filtration rate 34 NRG Serum or plasma glucose measurement (mass/volume) 154 mg/dL 70-105 Serum or plasma calcium measurement (mass/volume) 8.2 mg/dL 8.5-10.1 Serum or plasma total bilirubin measurement (mass/volu me) 0.2 mg/dL 0.1-1.0 Serum or plasma alkaline phosphatase olivia surement (enzymatic activity/volume) 58 U/L 40-136 Serum or plasma aspartate aminotransfera se measurement (enzymatic activity/volume) 10 U/L 5-34 Serum or plasma alanine aminotransferase measurement (enzymatic activity/volume) 11 U/L 0-55 Serum or plasma protein measurement (mass/volume) 6.2 g/dL 6.4-8.2 Serum or plasma albumin measurement (mass/volume) 3.0 g/dL 3.2-4.5 CALCIUM CORRECTED 9.0 mg/dL 8.5-10.1 Magnesium - 11/18/18 05:38 Magnesium 1.2 mg/dL 1.8-2.4 Serum or plasma troponin i.cardiac measu rement (mass/volume) - 11/18/18 05:38 Serum or plasma troponin i.cardiac measurement (mass/v olume) < ng/mL <0.028 Whole blood basic metabolic panel - 09/02 10:20 Serum or plasma sodium measurement (moles/volume) 134 mmol/L 135-145 Serum or plasma potassium measurement (moles/volume) 4.6 mmol/L 3.6-5.0 Serum or plasma chloride measurement (moles/volume) 108 mmol/L 98-107 Carbon dioxide 18 mmol/L 21-32 Serum or plasma anion gap determination (moles/volume) 8 mmol/L 5-14 Serum or plasma urea nitrogen measurement (mass/volume ) 20 mg/dL 7-18 Serum or plasma creatinine measurement (mass/volume) 1.27 mg/dL 0.60-1.30 Serum or plasma urea nitrogen/creatinine mass ratio 16 NRG Serum or plasma creatinine measurement w ith calculation of estimated glomerular filtration rate 42 NRG Serum or plasma glucose measurement (mass/volume) 195 mg/dL 70-105 Serum or plasma calcium measurement (mass/volume) 8.3 mg/dL 8.5-10.1 Complete blood count (CBC) with automate d white blood cell (WBC) differential - 11/20/18 05:24 Blood leukocytes automated count (number/volume) 5.0 10*3/uL 4.3-11.0 Blood erythrocytes automated count (number/volume) 3.36 10*6/uL 4.35-5.85 Venous blood hemoglobin measurement (mass/volume) 11.0 g/dL 11.5-16.0 Blood hematocrit (volume fraction) 33 % 35-52 Automated erythrocyte mean corpuscular volume 97 [ foz_us] 80-99 Automated erythrocyte mean corpuscular h emoglobin (mass per erythrocyte) 33 pg 25-34 Automated erythrocyte mean corpuscular h emoglobin concentration measurement (mass/volume) 34 g/dL 32-36 Automated erythrocyte distribution width ratio 13. 0 % 10.0- 14.5 Automated blood platelet count (count/volume) 172 10*3/uL 130-400 Automated blood platelet mean volume measurement 9.7 [foz_us] 7.4-10.4 Automated blood neutrophils/100 leukocytes 43 % 42-75 Automated blood lymphocytes/100 leukocytes 40 % 12-44 Blood monocytes/100 leukocytes 9 % 0-12 Automated blood eosinophils/100 leukocytes 7 % 0-10 Automated blood basophils/100 leukocytes 0 % 0-10 Blood neutrophils automated count (number/volume) 2.1 10*3 1.8-7.8 Blood lymphocytes automated count (number/volume) 2.0 10*3 1.0-4.0 Blood monocytes automated count (number/volume) 0. 5 10*3 0.0-1.0 Automated eosinophil count 0.4 10*3/uL 0 .0-0.3 Automated blood basophil count (count/volume) 0.0 10*3/uL 0.0-0.1 Whole blood basic metabolic panel - 10/03 05:24 Serum or plasma sodium measurement (moles/volume) 135 mmol/L 135-145 Serum or plasma potassium measurement (moles/volume) 4.7 mmol/L 3.6-5.0 Serum or plasma chloride measurement (moles/volume) 109 mmol/L 98-107 Carbon dioxide 17 mmol/L 21-32 Serum or plasma anion gap determination (moles/volume) 9 mmol/L 5-14 Serum or plasma urea nitrogen measurement (mass/volume ) 16 mg/dL 7-18 Serum or plasma creatinine measurement (mass/volume) 0.93 mg/dL 0.60-1.30 Serum or plasma urea nitrogen/creatinine mass ratio 17 NRG Serum or plasma creatinine measurement w ith calculation of estimated glomerular filtration rate > NRG Serum or plasma glucose measurement (mass/volume) 161 mg/dL 70-105 Serum or plasma calcium measurement (mass/volume) 8.5 mg/dL 8.5-10.1 Complete blood count (CBC) with automate d white blood cell (WBC) differential - 12/08/18 11:40 Blood leukocytes automated count (number/volume) 6.6 10*3/uL 4.3-11.0 Blood erythrocytes automated count (number/volume) 3.80 10*6/uL 4.35-5.85 Venous blood hemoglobin measurement (mass/volume) 12.3 g/dL 11.5-16.0 Blood hematocrit (volume fraction) 37 % 35-52 Automated erythrocyte mean corpuscular volume 97 [ foz_us] 80-99 Automated erythrocyte mean corpuscular h emoglobin (mass per erythrocyte) 32 pg 25-34 Automated erythrocyte mean corpuscular h emoglobin concentration measurement (mass/volume) 33 g/dL 32-36 Automated erythrocyte distribution width ratio 13. 5 % 10.0- 14.5 Automated blood platelet count (count/volume) 222 10*3/uL 130-400 Automated blood platelet mean volume measurement 9.5 [foz_us] 7.4-10.4 Automated blood neutrophils/100 leukocytes 56 % 42-75 Automated blood lymphocytes/100 leukocytes 34 % 12-44 Blood monocytes/100 leukocytes 7 % 0-12 Automated blood eosinophils/100 leukocytes 2 % 0-10 Automated blood basophils/100 leukocytes 0 % 0-10 Blood neutrophils automated count (number/volume) 3.7 10*3 1.8-7.8 Blood lymphocytes automated count (number/volume) 2.2 10*3 1.0-4.0 Blood monocytes automated count (number/volume) 0. 5 10*3 0.0-1.0 Automated eosinophil count 0.2 10*3/uL 0 .0-0.3 Automated blood basophil count (count/volume) 0.0 10*3/uL 0.0-0.1 Comprehensive metabolic panel - 12/08/18 11:40 Serum or plasma sodium measurement (moles/volume) 139 mmol/L 135-145 Serum or plasma potassium measurement (moles/volume) 4.0 mmol/L 3.6-5.0 Serum or plasma chloride measurement (moles/volume) 104 mmol/L 98-107 Carbon dioxide 17 mmol/L 21-32 Serum or plasma anion gap determination (moles/volume) 18 mmol/L 5-14 Serum or plasma urea nitrogen measurement (mass/volume ) 23 mg/dL 7-18 Serum or plasma creatinine measurement (mass/volume) 0.99 mg/dL 0.60-1.30 Serum or plasma urea nitrogen/creatinine mass ratio 23 NRG Serum or plasma creatinine measurement w ith calculation of estimated glomerular filtration rate 57 NRG Serum or plasma glucose measurement (mass/volume) 239 mg/dL 70-105 Serum or plasma calcium measurement (mass/volume) 8.7 mg/dL 8.5-10.1 Serum or plasma total bilirubin measurement (mass/volu me) 0.2 mg/dL 0.1-1.0 Serum or plasma alkaline phosphatase olivia surement (enzymatic activity/volume) 75 U/L 40-136 Serum or plasma aspartate aminotransfera se measurement (enzymatic activity/volume) 15 U/L 5-34 Serum or plasma alanine aminotransferase measurement (enzymatic activity/volume) 15 U/L 0-55 Serum or plasma protein measurement (mass/volume) 7.0 g/dL 6.4-8.2 Serum or plasma albumin measurement (mass/volume) 3.4 g/dL 3.2-4.5 CALCIUM CORRECTED 9.2 mg/dL 8.5-10.1 Complete blood count (CBC) with automate d white blood cell (WBC) differential - 05/14/19 18:35 Blood leukocytes automated count (number/volume) 8.7 10*3/uL 4.3-11.0 Blood erythrocytes automated count (number/volume) 4.36 10*6/uL 4.35-5.85 Venous blood hemoglobin measurement (mass/volume) 14.0 g/dL 11.5-16.0 Blood hematocrit (volume fraction) 41 % 35-52 Automated erythrocyte mean corpuscular volume 94 [ foz_us] 80-99 Automated erythrocyte mean corpuscular h emoglobin (mass per erythrocyte) 32 pg 25-34 Automated erythrocyte mean corpuscular h emoglobin concentration measurement (mass/volume) 34 g/dL 32-36 Automated erythrocyte distribution width ratio 13. 3 % 10.0- 14.5 Automated blood platelet count (count/volume) 260 10*3/uL 130-400 Automated blood platelet mean volume measurement 8.9 [foz_us] 7.4-10.4 Automated blood neutrophils/100 leukocytes 66 % 42-75 Automated blood lymphocytes/100 leukocytes 26 % 12-44 Blood monocytes/100 leukocytes 6 % 0-12 Automated blood eosinophils/100 leukocytes 2 % 0-10 Automated blood basophils/100 leukocytes 0 % 0-10 Blood neutrophils automated count (number/volume) 5.7 10*3 1.8-7.8 Blood lymphocytes automated count (number/volume) 2.2 10*3 1.0-4.0 Blood monocytes automated count (number/volume) 0. 5 10*3 0.0-1.0 Automated eosinophil count 0.2 10*3/uL 0 .0-0.3 Automated blood basophil count (count/volume) 0.0 10*3/uL 0.0-0.1 PT panel in platelet poor plasma by coag ulation assay - 05/14/19 18:35 Prothrombin time (PT) in platelet poor plasma by coagu lation assay 13.7 s 12.2-14.7 INR in platelet poor plasma or blood by coagulation as say 1.0 0.8-1.4 Activated partial thromboplastin time (a PTT) in platelet poor plasma bycoagulation assay - 05/14/19 18:35 Activated partial thromboplastin time (a PTT) in platelet poor plasma bycoagulation assay 29 s 24-35 Comprehensive metabolic panel - 05/14/19 18:35 Serum or plasma sodium measurement (moles/volume) 136 mmol/L 135-145 Serum or plasma potassium measurement (moles/volume) 4.6 mmol/L 3.6-5.0 Serum or plasma chloride measurement (moles/volume) 98 mmol/L 98-107 Carbon dioxide 22 mmol/L 21-32 Serum or plasma anion gap determination (moles/volume) 16 mmol/L 5-14 Serum or plasma urea nitrogen measurement (mass/volume ) 18 mg/dL 7-18 Serum or plasma creatinine measurement (mass/volume) 1.02 mg/dL 0.60-1.30 Serum or plasma urea nitrogen/creatinine mass ratio 18 NRG Serum or plasma creatinine measurement w ith calculation of estimated glomerular filtration rate 55 NRG Serum or plasma glucose measurement (mass/volume) 158 mg/dL 70-105 Serum or plasma calcium measurement (mass/volume) 9.5 mg/dL 8.5-10.1 Serum or plasma total bilirubin measurement (mass/volu me) 0.5 mg/dL 0.1-1.0 Serum or plasma alkaline phosphatase olivia surement (enzymatic activity/volume) 69 U/L 40-136 Serum or plasma aspartate aminotransfera se measurement (enzymatic activity/volume) 17 U/L 5-34 Serum or plasma alanine aminotransferase measurement (enzymatic activity/volume) 11 U/L 0-55 Serum or plasma protein measurement (mass/volume) 7.9 g/dL 6.4-8.2 Serum or plasma albumin measurement (mass/volume) 3.9 g/dL 3.2-4.5 CALCIUM CORRECTED 9.6 mg/dL 8.5-10.1 TROPONIN I FS - 05/14/19 18:35 TROPONIN I FS < 0.30 <0.30 PROBNP FS - 05/14/19 18:35 PROBNP FS 274.7 pg/mL <75.0 Serum or plasma troponin i.cardiac measu rement (mass/volume) - 05/14/19 22:00 Serum or plasma troponin i.cardiac measurement (mass/v olume) < ng/mL <0.028 Capillary blood glucose measurement by g lucometer (mass/volume) - 05/15/19 06:06 Capillary blood glucose measurement by glucometer (mas s/volume) 146 mg/dL 70-110 Complete blood count (CBC) with automate d white blood cell (WBC) differential - 05/15/19 06:21 Blood leukocytes automated count (number/volume) 7.3 10*3/uL 4.3-11.0 Blood erythrocytes automated count (number/volume) 3.98 10*6/uL 4.35-5.85 Venous blood hemoglobin measurement (mass/volume) 12.6 g/dL 11.5-16.0 Blood hematocrit (volume fraction) 37 % 35-52 Automated erythrocyte mean corpuscular volume 94 [ foz_us] 80-99 Automated erythrocyte mean corpuscular h emoglobin (mass per erythrocyte) 32 pg 25-34 Automated erythrocyte mean corpuscular h emoglobin concentration measurement (mass/volume) 34 g/dL 32-36 Automated erythrocyte distribution width ratio 13. 7 % 10.0- 14.5 Automated blood platelet count (count/volume) 217 10*3/uL 130-400 Automated blood platelet mean volume measurement 8.9 [foz_us] 7.4-10.4 Automated blood neutrophils/100 leukocytes 58 % 42-75 Automated blood lymphocytes/100 leukocytes 28 % 12-44 Blood monocytes/100 leukocytes 9 % 0-12 Automated blood eosinophils/100 leukocytes 4 % 0-10 Automated blood basophils/100 leukocytes 0 % 0-10 Blood neutrophils automated count (number/volume) 4.2 10*3 1.8-7.8 Blood lymphocytes automated count (number/volume) 2.1 10*3 1.0-4.0 Blood monocytes automated count (number/volume) 0. 7 10*3 0.0-1.0 Automated eosinophil count 0.3 10*3/uL 0 .0-0.3 Automated blood basophil count (count/volume) 0.0 10*3/uL 0.0-0.1 Comprehensive metabolic panel - 05/15/19 06:21 Serum or plasma sodium measurement (moles/volume) 136 mmol/L 135-145 Serum or plasma potassium measurement (moles/volume) 3.8 mmol/L 3.6-5.0 Serum or plasma chloride measurement (moles/volume) 104 mmol/L 98-107 Carbon dioxide 23 mmol/L 21-32 Serum or plasma anion gap determination (moles/volume) 9 mmol/L 5-14 Serum or plasma urea nitrogen measurement (mass/volume ) 17 mg/dL 7-18 Serum or plasma creatinine measurement (mass/volume) 0.88 mg/dL 0.60-1.30 Serum or plasma urea nitrogen/creatinine mass ratio 19 NRG Serum or plasma creatinine measurement w ith calculation of estimated glomerular filtration rate > NRG Serum or plasma glucose measurement (mass/volume) 148 mg/dL 70-105 Serum or plasma calcium measurement (mass/volume) 8.9 mg/dL 8.5-10.1 Serum or plasma total bilirubin measurement (mass/volu me) 0.4 mg/dL 0.1-1.0 Serum or plasma alkaline phosphatase olivia surement (enzymatic activity/volume) 60 U/L 40-136 Serum or plasma aspartate aminotransfera se measurement (enzymatic activity/volume) 15 U/L 5-34 Serum or plasma alanine aminotransferase measurement (enzymatic activity/volume) 11 U/L 0-55 Serum or plasma protein measurement (mass/volume) 6.9 g/dL 6.4-8.2 Serum or plasma albumin measurement (mass/volume) 3.4 g/dL 3.2-4.5 CALCIUM CORRECTED 9.4 mg/dL 8.5-10.1 Serum or plasma troponin i.cardiac measu rement (mass/volume) - 05/15/19 06:21 Serum or plasma troponin i.cardiac measurement (mass/v olume) < ng/mL <0.028 Lipid 1996 panel - 05/15/19 06:21 Serum or plasma triglyceride measurement (mass/volume) 139 mg/dL <150 Serum or plasma cholesterol measurement (mass/volume) 96 mg/dL < 200 Serum or plasma cholesterol in HDL measurement (mass/v olume) 27 mg/dL 40-60 Cholesterol in LDL [mass/volume] in serum or plasma by direct assay 46 mg/dL 1-129 Serum or plasma cholesterol in VLDL measurement (mass/ volume) 28 mg/dL 5-40 Capillary blood glucose measurement by g lucometer (mass/volume) - 05/15/19 11:37 Capillary blood glucose measurement by glucometer (mas s/volume) 190 mg/dL 70-110 Capillary blood glucose measurement by g lucometer (mass/volume) - 05/15/19 16:01 Capillary blood glucose measurement by glucometer (mas s/volume) 165 mg/dL 70-110 Capillary blood glucose measurement by g lucometer (mass/volume) - 05/15/19 20:09 Capillary blood glucose measurement by glucometer (mas s/volume) 184 mg/dL 70-110 Capillary blood glucose measurement by g lucometer (mass/volume) - 05/16/19 05:29 Capillary blood glucose measurement by glucometer (mas s/volume) 126 mg/dL 70-110 Capillary blood glucose measurement by g lucometer (mass/volume) - 05/16/19 11:26 Capillary blood glucose measurement by glucometer (mas s/volume) 155 mg/dL 70-110 Capillary blood glucose measurement by g lucometer (mass/volume) - 05/16/19 15:56 Capillary blood glucose measurement by glucometer (mas s/volume) 164 mg/dL 70-110 Complete blood count (CBC) with automate d white blood cell (WBC) differential - 06/11/19 17:21 Blood leukocytes automated count (number/volume) 7.3 10*3/uL 4.3-11.0 Blood erythrocytes automated count (number/volume) 3.92 10*6/uL 4.35-5.85 Venous blood hemoglobin measurement (mass/volume) 12.6 g/dL 11.5-16.0 Blood hematocrit (volume fraction) 37 % 35-52 Automated erythrocyte mean corpuscular volume 95 [ foz_us] 80-99 Automated erythrocyte mean corpuscular h emoglobin (mass per erythrocyte) 32 pg 25-34 Automated erythrocyte mean corpuscular h emoglobin concentration measurement (mass/volume) 34 g/dL 32-36 Automated erythrocyte distribution width ratio 13. 8 % 10.0- 14.5 Automated blood platelet count (count/volume) 243 10*3/uL 130-400 Automated blood platelet mean volume measurement 8.7 [foz_us] 7.4-10.4 Automated blood neutrophils/100 leukocytes 59 % 42-75 Automated blood lymphocytes/100 leukocytes 32 % 12-44 Blood monocytes/100 leukocytes 7 % 0-12 Automated blood eosinophils/100 leukocytes 2 % 0-10 Automated blood basophils/100 leukocytes 0 % 0-10 Blood neutrophils automated count (number/volume) 4.4 10*3 1.8-7.8 Blood lymphocytes automated count (number/volume) 2.3 10*3 1.0-4.0 Blood monocytes automated count (number/volume) 0. 5 10*3 0.0-1.0 Automated eosinophil count 0.1 10*3/uL 0 .0-0.3 Automated blood basophil count (count/volume) 0.0 10*3/uL 0.0-0.1 Complete urinalysis with reflex to cultu re - 06/11/19 17:21 Urine color determination YELLOW NRG Urine clarity determination CLEAR NR G Urine pH measurement by test strip 5.5 5-9 Specific gravity of urine by test strip >= 1.016-1.022 Urine protein assay by test strip, semi-quantitative NEGATIVE NEGATIVE Urine glucose detection by automated test strip NE GATIVE NEGATIVE Erythrocytes detection in urine sediment by light micr oscopy NEGATIVE NEGATIVE Urine ketones detection by automated test strip NE GATIVE NEGATIVE Urine nitrite detection by test strip NEGATIVE NEGATIVE Urine total bilirubin detection by test strip NEGA TIVE NEGATIVE Urine urobilinogen measurement by automated test strip (mass/volume) 0.2 mg/dL < = 1.0 Urine leukocyte esterase detection by dipstick NEG ATIVE NEGATIVE Automated urine sediment erythrocyte cou nt by microscopy (number/high power field) NONE NRG Automated urine sediment leukocyte count by microscopy (number/high power field) [HPF] NRG Bacteria detection in urine sediment by light microsco py NEGATIVE NRG Squamous epithelial cells detection in u rine sediment by light microscopy 2-5 NRG Crystals detection in urine sediment by light microsco py NONE NRG Casts detection in urine sediment by light microscopy NONE NRG Mucus detection in urine sediment by light microscopy SMALL NRG Complete urinalysis with reflex to culture NO [facility] Comprehensive metabolic panel - 06/11/19 17:21 Serum or plasma sodium measurement (moles/volume) 140 mmol/L 135-145 Serum or plasma potassium measurement (moles/volume) 4.1 mmol/L 3.6-5.0 Serum or plasma chloride measurement (moles/volume) 106 mmol/L 98-107 Carbon dioxide 19 mmol/L 21-32 Serum or plasma anion gap determination (moles/volume) 15 mmol/L 5-14 Serum or plasma urea nitrogen measurement (mass/volume ) 19 mg/dL 7-18 Serum or plasma creatinine measurement (mass/volume) 0.88 mg/dL 0.60-1.30 Serum or plasma urea nitrogen/creatinine mass ratio 22 NRG Serum or plasma creatinine measurement w ith calculation of estimated glomerular filtration rate > NRG Serum or plasma glucose measurement (mass/volume) 101 mg/dL 70-105 Serum or plasma calcium measurement (mass/volume) 8.7 mg/dL 8.5-10.1 Serum or plasma total bilirubin measurement (mass/volu me) 0.4 mg/dL 0.1-1.0 Serum or plasma alkaline phosphatase olivia surement (enzymatic activity/volume) 56 U/L 40-136 Serum or plasma aspartate aminotransfera se measurement (enzymatic activity/volume) 14 U/L 5-34 Serum or plasma alanine aminotransferase measurement (enzymatic activity/volume) 12 U/L 0-55 Serum or plasma protein measurement (mass/volume) 7.1 g/dL 6.4-8.2 Serum or plasma albumin measurement (mass/volume) 3.6 g/dL 3.2-4.5 CALCIUM CORRECTED 9.0 mg/dL 8.5-10.1 Complete blood count (CBC) with automate d white blood cell (WBC) differential - 08/20/19 13:00 Blood leukocytes automated count (number/volume) 6.6 10*3/uL 4.3-11.0 Blood erythrocytes automated count (number/volume) 3.89 10*6/uL 4.35-5.85 Venous blood hemoglobin measurement (mass/volume) 12.6 g/dL 11.5-16.0 Blood hematocrit (volume fraction) 38 % 35-52 Automated erythrocyte mean corpuscular volume 97 [ foz_us] 80-99 Automated erythrocyte mean corpuscular h emoglobin (mass per erythrocyte) 32 pg 25-34 Automated erythrocyte mean corpuscular h emoglobin concentration measurement (mass/volume) 33 g/dL 32-36 Automated erythrocyte distribution width ratio 13. 2 % 10.0- 14.5 Automated blood platelet count (count/volume) 217 10*3/uL 130-400 Automated blood platelet mean volume measurement 9.0 [foz_us] 7.4-10.4 Automated blood neutrophils/100 leukocytes 69 % 42-75 Automated blood lymphocytes/100 leukocytes 23 % 12-44 Blood monocytes/100 leukocytes 6 % 0-12 Automated blood eosinophils/100 leukocytes 2 % 0-10 Automated blood basophils/100 leukocytes 0 % 0-10 Blood neutrophils automated count (number/volume) 4.5 10*3 1.8-7.8 Blood lymphocytes automated count (number/volume) 1.5 10*3 1.0-4.0 Blood monocytes automated count (number/volume) 0. 4 10*3 0.0-1.0 Automated eosinophil count 0.1 10*3/uL 0 .0-0.3 Automated blood basophil count (count/volume) 0.0 10*3/uL 0.0-0.1 Comprehensive metabolic panel - 08/20/19 13:00 Serum or plasma sodium measurement (moles/volume) 137 mmol/L 135-145 Serum or plasma potassium measurement (moles/volume) 3.9 mmol/L 3.6-5.0 Serum or plasma chloride measurement (moles/volume) 102 mmol/L 98-107 Carbon dioxide 21 mmol/L 21-32 Serum or plasma anion gap determination (moles/volume) 14 mmol/L 5-14 Serum or plasma urea nitrogen measurement (mass/volume ) 17 mg/dL 7-18 Serum or plasma creatinine measurement (mass/volume) 0.80 mg/dL 0.60-1.30 Serum or plasma urea nitrogen/creatinine mass ratio 21 NRG Serum or plasma creatinine measurement w ith calculation of estimated glomerular filtration rate > NRG Serum or plasma glucose measurement (mass/volume) 154 mg/dL 70-105 Serum or plasma calcium measurement (mass/volume) 8.4 mg/dL 8.5-10.1 Serum or plasma total bilirubin measurement (mass/volu me) 0.4 mg/dL 0.1-1.0 Serum or plasma alkaline phosphatase olivia surement (enzymatic activity/volume) 54 U/L 40-136 Serum or plasma aspartate aminotransfera se measurement (enzymatic activity/volume) 12 U/L 5-34 Serum or plasma alanine aminotransferase measurement (enzymatic activity/volume) 7 U/L 0-55 Serum or plasma protein measurement (mass/volume) 6.7 g/dL 6.4-8.2 Serum or plasma albumin measurement (mass/volume) 3.4 g/dL 3.2-4.5 CALCIUM CORRECTED 8.9 mg/dL 8.5-10.1 Encounters ACCT No. Visit Date/Time Discharge Status Pt. Type Provider Facility Loc./Unit Complaint [id number] 06/08/2016 03:06:00 Document Registration [id number] 09/18/2019 14:54:00 15:28:00 DIS Emergency JUAN LUIS CACERES, KARLEY Funes [facility] ER FS SKIN INFECTION [id number] 08/20/2019 12:51:00 15:00:00 DIS Emergency ROVENSTKARTIK BARNES DO [facility] ER FS N,V,D [id number] 06/11/2019 17:18:00 18:45:00 DIS Emergency BLAYNE MCKEON DO [facility] ER FS BACK PAIN [id number] 05/14/2019 20:50:00 12:18:00 DIS Inpatient ALTHEA NEWMAN DO, [facility] 4TH NAUSEA,VOMITING,CHEST/T HROAT TIGHTNESS [id number] 12/08/2018 23:38:00 019 00:36:00 DIS Emergency ROVENSTINE KARTIK HERNADEZ [facility] ER FS NAUSEA; VOMITIN G [id number] 11/17/2018 22:20:00 019 11:19:00 DIS Inpatient BILLY CACERES, JEFFY Vazquez [facility] 4TH ELEANOR, DEHYDRATION,FALLS ELECTROLYTE DISTURBANCES,FB [id number] 11/10/2018 16:01:00 21:03:00 DIS Emergency ZEESHAN CACERESMELVIN [facility] ER FS ABD PAIN [id number] 10/19/2018 11:49:00 019 14:35:00 DIS Emergency EVELYN SAMPSON DO [facility] ER FS URINARY PAIN; RASH [id number] 09/17/2018 20:37:00 019 18:00:00 DIS Inpatient ALTHEA NEWMAN DO, [facility] 4TH EYE PAIN AND DRAINAGE [id number] 01/15/2016 07:06:00 Document Registration [id number] 06/12/2014 14:34:00 06/12/2014 23:59: 59 CLS Outpatient KATIE HUDSON MD [id number] 03/10/2014 13:49:00 03/10/2014 23:59: 59 CLS Outpatient KATIE HUDSON MD [id number] 02/06/2014 14:56:00 02/06/2014 23:59: 59 CLS Outpatient BRITTANY MIRZA DO [id number] 02/06/2014 14:01:00 02/06/2014 23:59: 59 CLS Outpatient KATIE HUDSON MD [id number] 09/26/2013 13:12:00 09/26/2013 23:59: 59 CLS Outpatient KATIE HUDSON MD [id number] 09/26/2013 13:12:00 09/26/2013 23:59: 59 CLS Outpatient KATIE HUDSON MD [id number] 09/26/2013 12:43:00 09/26/2013 23:59: 59 CLS Outpatient BRITTANY MIRZA DO [id number] 06/06/2013 14:02:00 06/06/2013 23:59: 59 CLS Outpatient KATIE HUDSON MD [id number] 06/06/2013 13:04:00 06/06/2013 23:59: 59 CLS Outpatient BRITTANY MIRZA DO [id number] 03/08/2013 14:26:00 03/08/2013 23:59: 59 CLS Outpatient KATIE HUDSON MD [id number] 03/08/2013 14:26:00 03/08/2013 23:59: 59 CLS Outpatient KATIE HUDSON MD [id number] 10/25/2012 15:19:00 10/25/2012 23:59: 59 CLS Outpatient KATIE HUDSON MD [id number] 03/22/2012 13:00:00 03/22/2012 23:59: 59 CLS Outpatient BRITTANY MIRZA DO [id number] 03/16/2012 10:37:00 03/16/2012 23:59: 59 [place] [id number] 08/19/2011 09:42:00 08/19/2011 23:59:5 9 CLS Outpatient KATIE HUDSON MD [id number] 10/25/2012 15:19:00 Document Registration [id number] 06/27/2019 16:00:00 06/27/2019 23:59:5 9 CLS Outpatient KATIE HUDSON MD [facility] [id number] 03/29/2018 14:20:00 Document Registration [id number] 10/06/2017 16:00:00 Document Registration [id number] 01/26/2017 15:00:00 Document Registration [id number] 01/29/2017 16:06:00 Document Registration
== END 2019-09-18 15:28 | disposition home or self-care (01) ==
LOC: EDUNIT# 14:52 → ER FS 14:54
DX: S80.861A Insect bite (nonvenomous), right lower leg, initial encounter (principal); S80.862A Insect bite (nonvenomous), left lower leg, initial encounter; S40.861A Insect bite (nonvenomous) of right upper arm, initial encounter; S40.862A Insect bite (nonvenomous) of left upper arm, initial encounter; S00.86XA Insect bite (nonvenomous) of other part of head, initial encounter; J44.9 Chronic obstructive pulmonary disease, unspecified; I10 Essential (primary) hypertension; E11.40 Type 2 diabetes mellitus with diabetic neuropathy, unspecified; E66.01 Morbid (severe) obesity due to excess calories; F32.9 Major depressive disorder, single episode, unspecified; Z86.73 Personal history of transient ischemic attack (TIA), and cerebral infarction without residual deficits; Z91.041 Radiographic dye allergy status; Z79.84 Long term (current) use of oral hypoglycemic drugs; Z87.891 Personal history of nicotine dependence; W57.XXXA Bitten or stung by nonvenomous insect and other nonvenomous arthropods, initial encounter
CPT/HCPCS: 99283

== ENCOUNTER 2019-11-12 12:19 | Emergency (ER) | payer MEDICAID ==
[~2019-11-12 12:19] MED LIST changes: +PERM60CR17 TP
[2019-11-12] MEDS ORDERED: NS IV 1000 ML 1,000 ML IV STA (12:27)
[2019-11-12] MEDS ORDERED: ONDANSETRON 4 MG/2 ML (SDV) Z0FRAN IVP ONE (12:30)
--- NOTE | 2019-11-12 12:33 | ED General ---
General Chief Complaint: Respiratory Problems Stated Complaint: RESP DIST Source of Information: Patient, RN/MD Exam Limitations: No Limitations History of Present Illness Date Seen by Provider: Nov 12, 2019 Time Seen by Provider: 12:20 Initial Comments This patient is a 64-year-old female presents to the emerge department complaining of nausea vomiting diarrhea lisping on-off past several days. Patient states that she just feels so weak now from all the vomiting and diarrhea patient has dry mucous membranes. Patient also states she has long history of cardiac disease and breathing issues related to her heart and wears 3 L by nasal cannula daily 24 hours a day or she doesn't breathe well. Patient states that she was dry heaving so hard this morning was causing her to cough EMS reports the patient had diminished breath sounds so they gave her a DuoNeb and Solu-Medrol patient is satting 97% on her 3 L by nasal cannula at this time. Does not present with a cough denies any significant cough. Other when she was dry heaving. Patient states she just feels dry. We'll do medical evaluation treatment is needed. Timing/Duration: 3-4 Days Associated Systoms: Nausea/Vomiting Allergies and Home Medications Allergies Uncoded Allergies: IV CONTRAST (Adverse Reaction, Mild, HIVES, 09/17/18) Home Medications Amitriptyline HCl 50 Mg Tablet, 50 MG PO HS, (Reported) Atorvastatin Calcium 40 Mg Tablet, 40 MG PO HS, (Reported) Gabapentin 600 Mg Tablet, 600 MG PO TID, (Reported) Ibuprofen 800 Mg Tablet, 800 MG PO TID, (Reported) Liraglutide 0.6 Mg/0.1 Ml Pen.injctr, 1.8 MG SC DAILY, (Reported) Loperamide HCl 2 Mg Tablet, 2 MG PO BID PRN Prescribed by: KARTIK MCCARTY on 08/20/19 1433 Losartan Potassium 50 Mg Tablet, 50 MG PO DAILY, (Reported) Metformin HCl 1,000 Mg Tablet, 1,000 MG PO BID, (Reported) LAST FILLED #60 02-20-19 Mupirocin 22 Gm Oint...g., 22 GM TP DAILY Prescribed by: KARTIK MCCARTY on 08/20/19 1433 Mupirocin 22 Gm Oint...g., 22 GM TP BID Prescribed by: KARLEY MCKNIGHT on 09/18/19 1508 Ondansetron 4 Mg Tab.rapdis, 4 MG PO Q6H PRN for NAUSEA/VOMITING-1ST LINE, (Reported) Ondansetron 4 Mg Tab.rapdis, 4 MG PO TID Prescribed by: KARTIK MCCARTY on 08/20/19 1433 Oxybutynin Chloride 5 Mg Tablet, 5 MG PO TID, (Reported) Permethrin 60 Gm Cream..g., 60 GM TP DAILY Prescribed by: KARLEY MCKNIGHT on 09/18/19 1508 Phenazopyridine HCl 200 Mg Tablet, 1 TAB PO Q8H Prescribed by: LINDA CISNEROS on 06/11/19 1827 Sulfamethoxazole/Trimethoprim 1 Each Tablet, 1 EACH PO BID Prescribed by: KARTIK MCCARTY on 08/20/19 1433 Sulfamethoxazole/Trimethoprim 1 Each Tablet, 1 EACH PO BID Prescribed by: KARTIK MCCARTY on 08/20/19 1433 Patient Home Medication List Home Medication List Reviewed: Yes Review of Systems Review of Systems Constitutional: see HPI, weakness EENTM: No see HPI, No no symptoms reported, No ear discharge, No hearing loss, No ear pain, No blurred vision, No double vision, No eye pain, No tearing, No vision loss, No dental problems, No hoarseness, No mouth pain, No mouth swelling, No epistaxis, No nose congestion, No nose pain, No throat pain, No throat swelling, No other Respiratory: No no symptoms reported, No see HPI, No cough, No dyspnea on exertion, No hemoptysis, No orthopnea, No phlegm, No short of breath, No stridor, No wheezing, No other Cardiovascular: No no symptoms reported, No see HPI, No chest pain, No edema, No Hx of Intervention, No palpitations, No syncope, No vascular heart diseas, No other Gastrointestinal: No RUQ, No LUQ, No RLQ, No LLQ, No no symptoms reported; see HPI; No abdominal pain, No constipation; diarrhea; No dysphagia, No hematemesis, No heartburn, No jaundice, No loss of appetite, No melena; nausea, vomiting; No other Genitourinary: No no symptoms reported, No see HPI, No decreased output, No discharge, No dysuria, No frequency, No hematuria, No hesitancy, No incontinence, No nocturia, No pain, No other Musculoskeletal: No no symptoms reported, No see HPI, No back pain, No gout, No joint pain, No joint swelling, No muscle pain, No muscle stiffness, No muscle cramps, No muscle twitching, No muscle weakness, No neck pain, No other Skin: No no symptoms reported, No see HPI, No change in color, No change in hair/nails, No dryness, No hx of skin cancer, No lesions, No lumps, No pruritus, No rash, No other Psychiatric/Neurological: Denies No Symptoms Reported, Denies See HPI, Denies Anxiety, Denies Depressed, Denies Emotional Problems, Denies Headache, Denies Numbness, Denies Paresthesia, Denies Pre-Existing Deficit, Denies Seizure, Denies Tingling, Denies Tremors, Denies Weakness, Denies Other All Other Systems Reviewed Negative Unless Noted: Yes Past Mfaayoz-Yoovrh-Lnpjhs Hx Patient Social History Type Used: Cigarettes Former Smoker, Quit: Dec 07, 1994 2nd Hand Smoke Exposure: No Recent Hopitalizations: No Immunizations Up To Date Tetanus Booster (TDap): Unknown Date of Pneumonia Vaccine: Apr 17, 2015 Seasonal Allergies Seasonal Allergies: No Past Medical History Surgeries: Yes (CYSTOSCOPIES, DILITATION URETHRAL STRICTURE) Appendectomy, Bladder Surgery, Section, Eye Surgery, Gallbladder, Tonsillectomy, Tubal Ligation Respiratory: Yes COPD Cardiac: Yes High Cholesterol, Hypertension Neurological: Yes (CVA W/ R SIDED WEAKNESS) Neuropathy, Stroke Genitourinary: Yes (TRIGONITIS) UTI-Chronic Gastrointestinal: No Musculoskeletal: Yes (CHRONIC KNEE PAIN) Arthritis Endocrine: Yes (MORBID OBESITY) Diabetes, Insulin dep HEENT: No (prior cataract surgeries) Cancer: No Psychosocial: Yes Depression Integumentary: Yes (L ORBITAL CELLULITIS, 2018 CHEEK CELLULITIS) Recent Skin Changes Blood Disorders: No Family Medical History Patient reports no known family medical history. No Pertinent Family Hx Physical Exam Vital Signs Vital Signs - First Documented 11/12/19 12:19 Temp 36.6 Pulse 67 Resp 18 B/P (MAP) 131/82 (98) Pulse Ox 99 O2 Delivery Room Air Capillary Refill : Height, Weight, BMI Height: 5'6.00" Weight: 290lbs. 1.0oz. 131.953852mt; 43.00 BMI Method:Stated General Appearance: No Apparent Distress, WD/WN HEENT: Other (dry mucous membranes.) Respiratory: Chest Non Tender, Lungs Clear, Normal Breath Sounds, No Accessory Muscle Use, No Respiratory Distress Cardiovascular: Regular Rate, Rhythm, No Edema, No Gallop, No JVD, No Murmur, Normal Peripheral Pulses Gastrointestinal: Normal Bowel Sounds, No Organomegaly, No Pulsatile Mass, Non Tender, Soft Skin: Normal Color, Warm/Dry Progress/Results/Core Measures Suspected Sepsis SIRS Temperature: Pulse: Respiratory Rate: Laboratory Tests 11/12/19 12:25: White Blood Count 8.5 Blood Pressure / Mean: Laboratory Tests 11/12/19 12:25: Creatinine 1.21, INR Comment 1.2, Platelet Count 222, Total Bilirubin 0.4 Results/Orders Lab Results Laboratory Tests Test 11/12/19 12:25 11/12/19 14:50 Range/Units White Blood Count 8.5 4.3-11.0 10^3/uL Red Blood Count 4.13 L 4.35-5.85 10^6/uL Hemoglobin 13.4 11.5-16.0 G/DL Hematocrit 39 35-52 % Mean Corpuscular Volume 94 80-99 FL Mean Corpuscular Hemoglobin 32 25-34 PG Mean Corpuscular Hemoglobin Concent 35 32-36 G/DL Red Cell Distribution Width 13.5 10.0-14.5 % Platelet Count 222 130-400 10^3/uL Mean Platelet Volume 9.1 7.4-10.4 FL Neutrophils (%) (Auto) 59 42-75 % Lymphocytes (%) (Auto) 35 12-44 % Monocytes (%) (Auto) 6 0-12 % Eosinophils (%) (Auto) 1 0-10 % Basophils (%) (Auto) 0 0-10 % Neutrophils # (Auto) 5.0 1.8-7.8 X 10^3 Lymphocytes # (Auto) 2.9 1.0-4.0 X 10^3 Monocytes # (Auto) 5.0 H 0.0-1.0 X 10^3 Eosinophils # (Auto) 0.1 0.0-0.3 10^3/uL Basophils # (Auto) 0.0 0.0-0.1 10^3/uL Prothrombin Time 15.1 H 12.2-14.7 SEC INR Comment 1.2 0.8-1.4 Sodium Level 138 135-145 MMOL/L Potassium Level 3.5 L 3.6-5.0 MMOL/L Chloride Level 100 98-107 MMOL/L Carbon Dioxide Level 25 21-32 MMOL/L Anion Gap 13 5-14 MMOL/L Blood Urea Nitrogen 35 H 7-18 MG/DL Creatinine 1.21 0.60-1.30 MG/DL Estimat Glomerular Filtration Rate 45 BUN/Creatinine Ratio 29 Glucose Level 205 H 70-105 MG/DL Calcium Level 9.0 8.5-10.1 MG/DL Corrected Calcium 9.2 8.5-10.1 MG/DL Total Bilirubin 0.4 0.1-1.0 MG/DL Aspartate Amino Transf (AST/SGOT) 16 5-34 U/L Alanine Aminotransferase (ALT/SGPT) 13 0-55 U/L Alkaline Phosphatase 53 40-136 U/L Troponin I < 0.30 <0.30 NG/ML Pro-B-Type Natriuretic Peptide 111.6 H <75.0 PG/ML Total Protein 6.9 6.4-8.2 GM/DL Albumin 3.7 3.2-4.5 GM/DL Urine Color YELLOW Urine Clarity CLEAR Urine pH 6.0 5-9 Urine Specific Colman >1.030 1.016-1.022 Urine Protein 1+ H NEGATIVE Urine Glucose (UA) NEGATIVE NEGATIVE Urine Ketones TRACE H NEGATIVE Urine Nitrite POSITIVE H NEGATIVE Urine Bilirubin NEGATIVE NEGATIVE Urine Urobilinogen 0.2 < = 1.0 MG/DL Urine Leukocyte Esterase NEGATIVE NEGATIVE Urine RBC (Auto) NEGATIVE NEGATIVE Urine RBC NONE /HPF Urine WBC 2-5 /HPF Urine Squamous Epithelial Cells 2-5 /HPF Urine Crystals NONE /LPF Urine Bacteria LARGE H /HPF Urine Casts NONE /LPF Urine Mucus NEGATIVE /LPF Urine Culture Indicated YES My Orders Orders - KARLEY MCKNIGHT MD Cbc With Automated Diff (11/12/19 12:27) Comprehensive Metabolic Panel (11/12/19 12:27) Ekg Tracing (11/12/19 12:27) Urinalysis (11/12/19 12:27) Troponin I Fs (11/12/19 12:27) Probnp Fs (11/12/19 12:27) Protime With Inr (11/12/19 12:27) Ed Iv/Invasive Line Start (11/12/19 12:27) Ns Iv 1000 Ml (Sodium Chloride 0.9%) (11/12/19 12:27) Ondansetron Injection (Zofran Injectio (11/12/19 12:30) Acute Abd Series (11/12/19 12:27) Urine Culture (11/12/19 14:50) Medications Given in ED Current Medications Medications Dose Ordered Sig/Suzi Route Start Time Stop Time Status Last Admin Dose Admin Ondansetron HCl 4 mg ONCE ONCE IVP 11/12/19 12:30 11/12/19 12:31 DC 11/12/19 14:46 4 MG Vital Signs/I&O 11/12/19 12:19 Temp 36.6 Pulse 67 Resp 18 B/P (MAP) 131/82 (98) Pulse Ox 99 O2 Delivery Room Air Capillary Refill : Progress Note : Time: 15:02 Progress Note Negative for any acute findings. Patient does have a mild urinary tract infection nitrate positive. Has had no vomiting in the emergency department. Chronic conditions. Be stable. Patient will be discharged home. Encourage by mouth fluids and oral rehydration. Zofran as needed for nausea. May take Pepto-Bismol as needed for diarrhea. Take medications as prescribed for UTI. Continue all home medications and home oxygen. Follow-up with PCP in 2-3 days. ECG Initial ECG Impression Date: Nov 12, 2019 Initial ECG Impression Time: 14:43 Initial ECG Rate: 61 Initial ECG Rhythm: Normal Sinus Initial ECG Intervals: Normal Initial ECG Impression: Normal Comment Sinus rhythm heart rate 61 nonspecific EKG changes. Departure Impression Primary Impression: UTI (urinary tract infection) Additional Impression: Nausea vomiting and diarrhea Disposition: 01 HOME, SELF-CARE Condition: Stable Departure-Patient Inst. Decision time for Depature: 15:04 Referrals: [facility] (PCP/Family) Primary Care Physician Patient Instructions: Urinary Tract Infection, Adult (DC), Nausea and Vomiting, Adult Add. Discharge Instructions: Encourage by mouth fluids and oral rehydration. Zofran as needed for nausea. May take Pepto-Bismol as needed for diarrhea. Take medications as prescribed for UTI. Continue all home medications and home oxygen. Follow-up with PCP in 2-3 days. All discharge instructions reviewed with patient and/or family. Voiced understanding. Scripts Cephalexin (Keflex) 500 Mg Capsule 500 MG PO BID, #10 CAP Prov: KARLEY MCKNIGHT MD 11/12/19 Ondansetron (Ondansetron Odt) 4 Mg Tab.rapdis 4 MG PO BID, #10 TAB 0 Refills Prov: KARLEY MCKNIGHT MD 11/12/19 KARLEY MCKNIGHT MD Nov 12, 2019 12:33
[2019-11-12 12:49] LABS: BASOPHILS % (AUTO) 0 % (0-10); EOSINOPHILS # (AUTO) 0.1 10^3/uL (0.0-0.3); EOSINOPHILS % (AUTO) 1 % (0-10); HEMATOCRIT 39 % (35-52); HEMOGLOBIN 13.4 G/DL (11.5-16.0); LYMPHOCYTES # (AUTO) 2.9 X 10^3 (1.0-4.0); LYMPHOCYTES % (AUTO) 35 % (12-44); MEAN CORPUSCULAR HEMOGLOBIN 32 PG (25-34); MEAN CORPUSCULAR HGB CONC 35 G/DL (32-36); MEAN CORPUSCULAR VOLUME 94 FL (80-99); MEAN PLATELET VOLUME 9.1 FL (7.4-10.4); MONOCYTES % (AUTO) 6 % (0-12); NEUTROPHILS % (AUTO) 59 % (42-75); PLATELET COUNT 222 10^3/uL (130-400); RED CELL DISTRIBUTION WIDTH 13.5 % (10.0-14.5); WHITE BLOOD COUNT 8.5 10^3/uL (4.3-11.0)
[2019-11-12 13:10] LABS: BILIRUBIN,TOTAL 0.4 MG/DL (0.1-1.0); BUN/CREATININE RATIO 29; CARBON DIOXIDE 25 MMOL/L (21-32); CHLORIDE 100 MMOL/L (98-107); CREATININE SERUM 1.21 MG/DL (0.60-1.30); GFR ESTIMATED 45; GLUCOSE 205 MG/DL (70-105); POTASSIUM 3.5 MMOL/L (3.6-5.0); SODIUM 138 MMOL/L (135-145)
[2019-11-12 13:11] LABS: ALANINE AMINOTRANSFERASE 13 U/L (0-55); ALBUMIN 3.7 GM/DL (3.2-4.5); ALKALINE PHOSPHATASE 53 U/L (40-136); TOTAL PROTEIN 6.9 GM/DL (6.4-8.2)
[2019-11-12 13:28] LABS: INR 1.2 (0.8-1.4); PROTHROMBIN TIME PATIENT 15.1 SEC (12.2-14.7)
--- NOTE | 2019-11-12 14:45 | Diagnostic Imaging Report ---
INDICATION: Abdominal pain with nausea and vomiting. Cough. FINDINGS: Upright and supine abdomen shows no evidence of free air. No distended bowel loops are demonstrated. There does not appear to be significant stool burden. There is some discoid atelectasis in the left lung base. Lung bases are otherwise clear. There are no pathologic calcifications demonstrated. Moderate severe degenerative changes noted in the lumbosacral spine. IMPRESSION: 1. No acute abnormalities demonstrated. 2. Mild discoid atelectasis in the left lung base. Dictated by: Dictated on workstation # [id number]
[2019-11-12 15:00] LABS: BACTERIA,URINE LARGE /HPF; BILIRUBIN,URINE NEGATIVE (NEGATIVE); CLARITY,URINE CLEAR; COLOR,URINE YELLOW; GLUCOSE, URINE (UA) NEGATIVE (NEGATIVE); KETONES,URINE TRACE (NEGATIVE); LEUKOCYTE ESTERASE ,URINE NEGATIVE (NEGATIVE); NITRITE,URINE POSITIVE (NEGATIVE); PROTEIN,URINE 1+ (NEGATIVE)
[2019-11-12] MEDS ORDERED: CEPH-507 PO (15:06)
[2019-11-12] MEDS ORDERED: ONDA4TAB11 PO (15:06)
[2019-11-12 15:19] VITALS: BP 134/78
--- OUTSIDE RECORDS SUMMARY | 2019-11-12 16:19 | XMS REPORT ---
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 Name Role Phone KATIE HUDSON Unavailable PROBLEMS Type Condition ICD9-CM Code GYS39-[place] Code Onset Dates Condition S tatus SNOMED Code Problem Diabetes E11.9 Active 74578851 Problem Arthritis M19.90 Active 7406496 Problem Morbid obesity E66.01 Active 38325 6002 Problem Venous insufficiency I87.2 Active 55362761 Problem CAD (coronary artery disease) I25.10 Active 61607032 Problem Other chronic pain G89.29 Active 8 0635335 Problem Hyperlipemia E78.5 Active 5037541 4 Problem Osteoarthritis of knees, bilateral M17.0 Active 025709876 Problem Essential hypertension I10 Active 11211237 Problem Type 2 diabetes mellitus wit h other specified complication, without long-term current use of insulin E11.69 Active 49099730 ALLERGIES No Information ENCOUNTERS Encounter Location Date Diagnosis [place] [address] [facility] [id number] [address] [place] [address] Oct, Type 2 diabetes mellitus wit h other specified complication, without long-term current use of insulin E11.69 ; Venous insufficiency I87.2 ; Low back pain M54.5 and Other chronic pain G89.29 [place] [id number] [facility] [id number] [address] [place] [address] Oct, [facility] [address] [facility] [id number] [address] [place] [address] Sep, [place] [address] [facility] [id number] [address] [place] [address] August, [facility] [address] [facility] [id number] [address] [place] [address] August, [facility] [address] [id number] [address] [place] [address], [place] [address] August, [facility] [address] [id number] [address] [place] [address], [place] [address] August, [facility] [address] [id number] [address] [place] [address], [place] [address] August, [facility] [address] [id number] [address] [place] [address] August, [facility] [address] [id number] [address] [place] [address], [place] [address] August, [facility] [address] [id number] [address] [place] [address] August, Diabetes E11.9 [facility] [address] [id number] [address] [place] [address] August, [facility] [address] [id number] [address] [place] [address] August, [facility] [address] [id number] [address] [place] [address] August, [facility] [address] [id number] [address] [place] [address] Jul, [facility] [address] [id number] [address] [place] [address] Jul, [facility] [address] [id number] [address] [place] [address] 15 Jul, 2019 [facility] [address] [id number] [address] [place] [address] 10 Jul, 2019 [facility] [address] [id number] [address] [place] [address] 16 Jun, 2019 [facility] [address] [id number] [address] [place] [id number] 16 Jun, 2019 [facility] [address] [id number] [address] [place] [address] Jun, Diabetes E11.9 ; Skin infect ion L08.9 and Essential hypertension I10 [facility] [address] [address] May, [facility] [address] [facility] [id number] [address] [place] [address] May, [facility] [address] [address] May, [facility] [address] [place] [id number] [place] [address] Apr, [facility] [address] [address] Mar, [facility] [address] [address] Mar, [facility] [address] [address] Feb, [facility] [address] [address] Nov, [facility] [address] [address] Nov, Diabetes E11.9 and Syncope, unspecified syncope type R55 [place] [address] [address] Nov, Osteoarthritis of knees, natan ateral M17.0 [facility] [address] [place] [id number] [address] [place] [address] Oct, Diabetes E11.9 ; CAD (guardado ry artery disease) I25.10 ; Essential hypertension I10 and Hyperlipemia E78.5 [facility] [address] [place] [id number] [address] [place] [address] Sep, [facility] [address] [place] [id number] [place] [address] Jul, [facility] [address] [facility] [id number] [address] [place] [address] Apr, [facility] [address] [address] Mar, Pustular lesion L08.9 and En counter for immunization Z23 [facility] [address] [place] [id number] [place] [address] Feb, [facility] [address] [place] [id number] [place] [address] Dec, [facility] [address] [place] [id number] [place] [address] Dec, [facility] [address] [address] Dec, Diabetes E11.9 ; Essential h ypertension I10 ; Arthritis M19.90 ; Urinary frequency R35.0 ; Routine adult health maintenance Z00.00 and BMI 45.0- 49.9, adult Z68.42 [facility] [address] [address] Dec, [facility] [address] [address] Dec, [facility] [address] [address] Oct, [facility] [address] [place] [id number] [place] [address] Sep, Diabetes E11.9 [facility] [address] [place] [id number] [address] [place] [address] Sep, Diabetes E11.9 ; Hyperlipemi a E78.5 ; CAD (coronary artery disease) I25.10 ; Essential hypertension I10 and BMI 45.0-49.9, adult Z68.42 [facility] [address] [place] [id number] [address] [place] [address] Sep, [place] [address] [facility] [id number] [address] [place] [address] August, [facility] [address] [facility] [id number] [address] [place] [address] Jan, Dysuria R30.0 [place] [address] [place] [id number] [address] [place] [address] Jan, Dysuria R30.0 [facility] [address] [place] [id number] [address] [place] [address] Jan, Osteoarthritis of knees, natan ateral M17.0 [place] [address] [place] [id number] [address] [place] [address] Nov, Dysuria R30.0 [place] [address] [facility] [id number] [address] [place] [address] Oct, Blood in urine R31.9 ; Dysur ia R30.0 ; Pharyngeal dysphagia R13.13 ; Acute cystitis with hematuria N30.01 ; CAD (coronary artery disease) I25.10 and Diabetes E11.9 [place] [address] [facility] [id number] [address] [place] [address] Oct, [place] [address] [facility] [id number] [address] [place] [address] Sep, Arthritis M19.90 ; Blood in urine R31.9 ; Diabetes E11.9 ; Acute cystitis with hematuria N30.01 and Pharyngoesophageal dysphagia R13.14 [facility] [address] [facility] [id number] [address] [place] [address] 29 Sep, 2016 Osteoarthritis of knees, natan ateral M17.0 [place] [address] [place] [id number] [address] [place] [address] Sep, Osteoarthritis of knees, natan ateral M17.0 [place] [address] [place] [id number] [address] [place] [address] August, Arthritis M19.90 [place] [address] [id number] [address] [place] [address] Jul, Arthritis M19.90 [facility] [address] [id number] [address] [place] [address] Jun, Arthritis M19.90 [facility] [address] [id number] [address] [place] [address] Jun, [facility] [address] [id number] [address] [place] [address] Jun, [facility] [address] [id number] [address] [place] [address] May, Diabetes E11.9 ; Dysuria R30 .0 and Arthritis M19.90 [facility] [address] [id number] [address] [place] [address] Apr, [facility] [address] [id number] [address] [place] [address] Apr, Arthritis M19.90 [facility] [address] [id number] [address] [place] [address] Mar, Arthritis M19.90 [facility] [address] [id number] [address] [place] [address] Feb, [facility] [address] [id number] [address] [place] [address] Jan, [facility] [address] [id number] [address] [place] [address] Dec, Diabetes E11.9 and Arthritis M19.90 [facility] [address] [id number] [address] [place] [address] Dec, [facility] [address] [facility] [id number] [address] [place] [address] Nov, Arthritis M19.90 [facility] [address] [id number] [address] [place] [address] Nov, [facility] [address] [facility] [id number] [address] [place] [address] Oct, Arthritis M19.90 [facility] [address] [facility] [id number] [address] [place] [address] Sep, Osteoarthritis of knees, natan ateral M17.0 [facility] [address] [facility] [id number] [address] [place] [address] Sep, Osteoarthritis of knees, natan ateral M17.0 [place] [address] [facility] [id number] [address] [place] [address] August, Arthritis M19.90 [place] [address] [facility] [id number] [address] [place] [address] August, [place] [address] [facility] [id number] [address] [place] [address] Jul, Hyperlipemia E78.5 [place] [address] [place] [id number] [address] [place] [address] Jul, Encounter for well woman exa m Z01.419 ; Morbid obesity E66.01 ; Encounter for screening for malignant neoplasm of cervix Z12.4 and Encounter for screening mammogram for breast cancer Z12.31 [place] [address] [place] [id number] [address] [place] [address] Jul, Arthritis M19.90 ; Diabetes E11.9 ; Blood in urine R31.9 and UTI (urinary tract infection) N39.0 [place] [address] [facility] [id number] [address] [place] [address] Jul, [place] [address] [facility] [id number] [address] [place] [address] Jun, Arthritis M19.90 [place] [address] [facility] [id number] [address] [place] [address] May, Arthritis M19.90 [place] [address] [facility] [id number] [address] [place] [address] May, [facility] [address] [id number] [address] [place] [address] Apr, [facility] [address] [facility] [id number] [address] [place] [address] Apr, Arthritis M19.90 ; Diabetes E11.9 and Morbid obesity E66.01 [facility] [address] [facility] [id number] [address] [place] [address] Apr, [facility] [address] [facility] [id number] [address] [place] [address] Apr, Dyspareunia N94.1 [facility] [address] [facility] [id number] [address] [place] [address] Apr, [facility] [address] [facility] [id number] [address] [place] [address] Apr, [facility] [address] [facility] [id number] [address] [place] [address] Apr, Osteoarthritis of knees, natan ateral M17.0 [facility] [address] [facility] [id number] [address] [place] [address] Apr, Diabetes E11.9 and CAD (elysia nary artery disease) I25.10 [facility] [address] [facility] [id number] [address] [place] [address] Mar, [facility] [address] [facility] [id number] [address] [place] [address] Feb, [facility] [address] [facility] [id number] [address] [place] [address] Jan, [facility] [address] [facility] [id number] [address] [place] [address] Jan, [facility] [address] [facility] [id number] [address] [place] [address] Jan, [facility] [address] [facility] [id number] [address] [place] [address] Jan, Osteoarthritis of knees, natan ateral M17.0 [facility] [address] [id number] [address] [place] [address] 30 Dec, 2014 [facility] [address] [id number] [address] [place] [address] Dec, [facility] [address] [id number] [address] [place] [address] Dec, [facility] [address] [id number] [address] [place] [address] 08 Dec, 2014 Diabetes mellitus 250.00 and UTI (urinary tract infection) 599.0 [facility] [address] [id number] [address] [place] [address] Dec, [facility] [address] [id number] [address] [place] [address] Nov, [facility] [address] [id number] [address] [place] [address] Oct, [facility] [address] [id number] [address] [place] [address] Oct, [facility] [address] [id number] [address] [place] [address] Oct, [facility] [address] [id number] [address] [place] [address] Oct, [facility] [address] [id number] [address] [place] [address] Oct, [facility] [address] [id number] [address] [place] [address] Sep, [facility] [address] [id number] [address] [place] [address] August, [facility] [address] [id number] [address] [place] [address] August, [facility] [address] [id number] [address] [place] [address] August, [facility] [address] [id number] [address] [place] [address], [place] [address] Jul, [facility] [address] [id number] [address] [place] [address], [place] [address] Jul, [facility] [address] [id number] [address] [place] [address], [place] [address] Jul, [facility] [address] [id number] [address] [place] [address], [place] [address] Jun, [facility] [address] [id number] [address] [place] [address], [place] [address] Jun, [facility] [address] [id number] [address] [place] [address], [place] [address] Jun, [facility] [address] [id number] [address] [place] [address], [place] [address] Jun, [facility] [address] [id number] [address] [place] [address], [place] [address] Jun, [facility] [address] [id number] [address] [place] [address], [place] [address] Jun, [facility] [address] [id number] [address] [place] [address], [place] [address] Jun, [facility] [address] [id number] [address] [place] [address], [place] [address] Jun, [facility] [address] [id number] [address] [place] [address], [place] [address] May, [facility] [address] [id number] [address] [place] [address], [place] [address] May, [facility] [address] [id number] [address] [place] [address], [place] [address] May, [facility] [address] [id number] [address] [place] [address], [place] [address] May, [facility] [address] [id number] [address] [place] [address], [place] [address] May, 2014 [facility] [address] [id number] [address] [place] [address], [place] [address] May, 2014 [facility] [address] [id number] [address] [place] [address], [place] [address] May, 2014 [facility] [address] [id number] [address] [place] [address], [place] [address] May, 2014 [facility] [address] [id number] [address] [place] [address], [place] [address] May, 2014 [facility] [address] [id number] [address] [place] [address], [place] [address] May, 2014 [facility] [address] [id number] [address] [place] [address], [place] [address] May, 2014 [facility] [address] [id number] [address] [place] [address], [place] [address] May, [facility] [address] [id number] [address] [place] [address], [place] [address] Apr, [facility] [address] [id number] [address] [place] [address], [place] [address] Apr, [facility] [address] [id number] [address] [place] [address], [place] [address] Mar, [facility] [address] [id number] [address] [place] [address], [place] [address] Mar, [facility] [address] [id number] [address] [place] [address], [place] [address] Mar, [facility] [address] [id number] [address] [place] [address], [place] [address] Mar, [facility] [address] [id number] [address] [place] [address], [place] [id number] Mar, [facility] [address] [id number] [address] [place] [address], [place] [id number] 16 Mar, 2014 [facility] [address] [id number] [address] [place] [address], [place] [id number] Feb, [facility] [address] [id number] [address] [place] [address], [place] [id number] Feb, [facility] [address] [id number] [address] [place] [address], [place] [id number] Feb, [facility] [address] [id number] [address] [place] [address], [place] [id number] Feb, [facility] [address] [id number] [address] [place] [address], [place] [id number] Feb, [facility] [address] [id number] [address] [place] [address], [place] [id number] Feb, [facility] [address] [id number] [address] [place] [address], [place] [id number] Feb, [facility] [address] [id number] [address] [place] [address], [place] [id number] Feb, [facility] [address] [id number] [address] [place] [address], [place] [id number] Feb, [facility] [address] [id number] [address] [place] [address], [place] [id number] Jan, [facility] [address] [id number] [address] [place] [address], [place] [id number] Jan, [facility] [address] [id number] [address] [place] [address], [place] [id number] Jan, [facility] [address] [id number] [address] [place] [address], [place] [id number] Jan, [facility] [address] [id number] [address] [place] [address], [place] [id number] Jan, [facility] [address] [id number] [address] [place] [address], [place] [id number] Jan, [facility] [address] [id number] [facility] [place] [id number] 17 Jan, 2014 [facility] [address] [id number] [address] [place] [address], [place] [id number] 17 Jan, 2014 [facility] [address] [id number] [address] [place] [address], [place] [id number] Jan, [facility] [address] [id number] [address] [place] [address], [place] [id number] Jan, [facility] [address] [id number] [address] [place] [address], [place] [id number] Dec, [facility] [address] [id number] [address] [place] [address], [place] [id number] Dec, [facility] [address] [id number] [address] [place] [address], [place] [id number] Dec, [facility] [address] [id number] [address] [place] [address], [place] [id number] Dec, [facility] [address] [id number] [address] [place] [address], [place] [id number] Nov, [facility] [address] [id number] [address] [place] [address], [place] [id number] Nov, [facility] [address] [id number] [address] [place] [address], [place] [id number] Nov, [facility] [address] [id number] [address] [place] [address], [place] [id number] Nov, [facility] [address] [id number] [address] [place] [address], [place] [id number] Nov, [facility] [address] [id number] [address] [place] [address], [place] [id number] Nov, [facility] [address] [id number] [address] [place] [address], [place] [id number] Nov, [facility] [address] [id number] [address] [place] [address], [place] [id number] Nov, [facility] [address] [id number] [facility] [place] [id number] Nov, [facility] [facility] [address] [id number] [address] [place] [address], [place] [id number] Oct, [facility] [address] [id number] [facility] [place] [address] Oct, [facility] [address] [id number] [address] [place] [address], [place] [id number] Sep, [facility] [address] [id number] [address] [place] [address], [place] [id number] Sep, [facility] [address] [id number] [address] [place] [address], [place] [address] Sep, [facility] [address] [id number] [address] [place] [address], [place] [address] Sep, [facility] [address] [id number] [address] [place] [address], [place] [id number] Sep, [facility] [address] [id number] [address] [place] [address], [place] [id number] Sep, [facility] [address] [id number] [address] [place] [address], [place] [address] Sep, [facility] [address] [id number] [address] [place] [address], [place] [address] Sep, [facility] [address] [id number] [address] [place] [address], [place] [id number] Sep, [facility] [address] [id number] [address] [place] [address], [place] [address] Sep, [facility] [address] [id number] [address] [place] [address], [place] [address] Sep, [facility] [address] [id number] [address] [place] [address], [place] [address] Sep, [facility] [address] [id number] [address] [place] [address], [place] [id number] Sep, [facility] [address] [id number] [address] [place] [address], [place] [address] Sep, [facility] [address] [id number] [address] [place] [address], [place] [address] August, [facility] [address] [id number] [address] [place] [address], [place] [id number] August, [facility] [address] [id number] [address] [place] [address], [place] [address] August, [facility] [address] [id number] [address] [place] [address], [place] [id number] August, [facility] [address] [id number] [address] [place] [address], [place] [id number] Jul, [facility] [address] [id number] [address] [place] [address], [place] [address] Jul, [facility] [address] [id number] [address] [place] [address], [place] [id number] Jul, [facility] [address] [id number] [address] [place] [address], [place] [id number] Jul, [facility] [address] [id number] [address] [place] [address], [place] [address] Jun, [facility] [address] [id number] [address] [place] [address], [place] [address] Jun, [facility] [address] [id number] [address] [place] [address], [place] [id number] May, [facility] [address] [id number] [address] [place] [address], [place] [id number] May, [facility] [address] [id number] [address] [place] [address], [place] [address] May, [facility] [address] [id number] [address] [place] [address], [place] [id number] May, [facility] [address] [id number] [address] [place] [address], [place] [address] May, [facility] [address] [id number] [address] [place] [address], [place] [address] May, [facility] [address] [id number] [address] [place] [address], [place] [address] May, [facility] [address] [id number] [address] [place] [address], [place] [address] May, [facility] [address] [id number] [address] [place] [address], [place] [id number] May, [facility] [address] [id number] [address] [place] [address], [place] [id number] Apr, [facility] [address] [id number] [address] [place] [address], [place] [id number] Apr, [facility] [address] [id number] [address] [place] [address], [place] [address] Apr, [facility] [address] [id number] [address] [place] [address], [place] [address] Apr, [facility] [address] [id number] [address] [place] [address], [place] [id number] Apr, [facility] [address] [id number] [address] [place] [address], [place] [address] Mar, [facility] [address] [id number] [address] [place] [address], [place] [address] Mar, [facility] [address] [id number] [address] [place] [address], [place] [address] Feb, [facility] [address] [id number] [address] [place] [address], [place] [address] Feb, [facility] [address] [id number] [address] [place] [address], [place] [address] Feb, [facility] [address] [id number] [address] [place] [address], [place] [address] Feb, [facility] [address] [id number] [address] [place] [address], [place] [id number] Feb, [facility] [address] [id number] [address] [place] [address], [place] [id number] Feb, [facility] [address] [id number] [address] [place] [address], [place] [id number] Feb, [facility] [address] [id number] [address] [place] [address], [place] [address] Feb, [facility] [address] [id number] [address] [place] [address], [place] [address] Feb, [facility] [address] [id number] [address] [place] [address], [place] [address] Jan, [facility] [address] [id number] [address] [place] [address], [place] [address] Jan, [facility] [address] [id number] [address] [place] [address], [place] [address] Jan, [facility] [address] [id number] [address] [place] [address], [place] [id number] Jan, [facility] [address] [id number] [address] [place] [address], [place] [id number] Jan, [facility] [address] [id number] [address] [place] [address], [place] [address] Dec, [facility] [address] [id number] [address] [place] [address], [place] [address] Dec, [facility] [address] [id number] [address] [place] [address], [place] [address] Nov, [facility] [address] [id number] [address] [place] [address], [place] [id number] Nov, [facility] [address] [id number] [address] [place] [address], [place] [id number] Oct, [facility] [address] [id number] [address] [place] [address], [place] [id number] Oct, [facility] [address] [id number] [address] [place] [address], [place] [id number] Oct, [facility] [address] [id number] [address] [place] [address], [place] [address] Sep, [facility] [address] [id number] [address] [place] [address], [place] [address] Sep, [facility] [address] [id number] [address] [place] [address], [place] [id number] Sep, [facility] [address] [id number] [address] [place] [address], [place] [address] August, [facility] [address] [id number] [address] [place] [address], [place] [address] August, [facility] [address] [id number] [address] [place] [address], [place] [id number] August, [facility] [address] [id number] [address] [place] [address], [place] [address] August, [facility] [address] [id number] [address] [place] [address], [place] [id number] Jul, [facility] [address] [id number] [address] [place] [address], [place] [address] Jun, [facility] [address] [id number] [address] [place] [address], [place] [address] Jun, [facility] [address] [id number] [address] [place] [address], [place] [id number] 05 Jun, 2012 [facility] [address] [id number] [address] [place] [address], [place] [id number] May, [facility] [address] [id number] [address] [place] [address], [place] [id number] May, [facility] [address] [id number] [address] [place] [address], [place] [id number] 04 May, 2012 [facility] [address] [id number] [address] [place] [address], [place] [id number] May, [facility] [address] [id number] [address] [place] [address], [place] [address] Apr, [facility] [address] [id number] [address] [place] [address], [place] [address] Apr, [facility] [address] [id number] [address] [place] [address], [place] [id number] Apr, [facility] [address] [id number] [address] [place] [address], [place] [address] Apr, [facility] [address] [id number] [address] [place] [address], [place] [address] Apr, [facility] [address] [id number] [address] [place] [address], [place] [address] Mar, [facility] [address] [id number] [address] [place] [address], [place] [address] Mar, [facility] [address] [id number] [address] [place] [address], [place] [id number] Mar, [facility] [address] [id number] [address] [place] [address], [place] [address] Mar, [facility] [address] [id number] [address] [place] [address], [place] [address] Mar, [facility] [address] [id number] [address] [place] [address], [place] [address] Mar, [facility] [address] [id number] [address] [place] [address], [place] [address] Mar, [facility] [address] [id number] [address] [place] [address], [place] [address] Feb, [facility] [address] [id number] [address] [place] [address], [place] [address] Feb, [facility] [address] [id number] [address] [place] [address], [place] [address] Feb, [facility] [address] [id number] [address] [place] [address], [place] [address] Feb, [facility] [address] [id number] [address] [place] [address], [place] [id number] Feb, [facility] [address] [id number] [address] [place] [address], [place] [id number] Feb, [facility] [address] [id number] [address] [place] [address], [place] [address] Feb, [facility] [address] [id number] [address] [place] [address], [place] [id number] Feb, [facility] [address] [id number] [address] [place] [address], [place] [id number] Jan, [facility] [address] [id number] [address] [place] [address], [place] [address] Jan, [facility] [address] [id number] [address] [place] [address], [place] [id number] Jan, [facility] [address] [id number] [address] [place] [address], [place] [id number] Jan, [facility] [address] [id number] [address] [place] [address], [place] [id number] 27 Dec, 2011 [facility] [address] [id number] [address] [place] [address], [place] [id number] 25 Sep2011 [facility] [address] [id number] [address] [place] [address], [place] [id number] 18 Sep2011 [facility] [address] [id number] [address] [place] [address] [id number] 13 Sep2011 [facility] [address] [id number] [address] [place] [address], [place] [id number] 11 Sep2011 [facility] [address] [id number] [address] [place] [address], [place] [address] Oct, [facility] [address] [id number] [address] [place] [address], [place] [address] Oct, [facility] [address] [id number] [address] [place] [address], [place] [id number] Sep, [facility] [address] [id number] [address] [place] [address], [place] [id number] Sep, [facility] [address] [id number] [address] [place] [address], [place] [address] August, [facility] [address] [id number] [address] [place] [address], [place] [address] August, [facility] [address] [id number] [address] [place] [address], [place] [id number] Jul, [facility] [address] [id number] [address] [place] [address], [place] [id number] Jun, [facility] [address] [id number] [address] [place] [address], [place] [id number] Jun, [facility] [address] [id number] [address] [place] [address], [place] [id number] Jun, [facility] [address] [id number] [address] [place] [address], [place] [address] Jun, [facility] [address] [id number] [address] [place] [address], [place] [id number] Jun, [facility] [address] [id number] [address] [place] [address], [place] [address] May, [facility] [address] [id number] [address] [place] [address], [place] [address] May, [facility] [address] [id number] [address] [place] [address], [place] [id number] 20 May, 2011 [facility] [address] [id number] [address] [place] [address], [place] [id number] 14 May, 2011 [facility] [address] [id number] [address] [place] [address], [place] [id number] 13 May, 2011 [facility] [address] [id number] [address] [place] [address], [place] [id number] 03 May, 2011 [facility] [address] [id number] [address] [place] [address], [place] [id number] 02 May, 2011 [facility] [address] [id number] [address] [place] [address], [place] [address] May, [facility] [address] [id number] [address] [place] [address], [place] [id number] Apr, [facility] [address] [id number] [address] [place] [address], [place] [id number] Mar, [facility] [address] [id number] [address] [place] [address], [place] [id number] Mar, [facility] [address] [id number] [address] [place] [address], [place] [id number] Mar, [facility] [address] [id number] [address] [place] [address], [place] [id number] 15 Mar, 2011 [facility] [address] [id number] [address] [place] [address], [place] [id number] Mar, [facility] [address] [id number] [address] [place] [address], [place] [id number] 17 Jan, 2011 [facility] [address] [id number] [address] [place] [address], [place] [id number] Jan, [facility] [address] [id number] [address] [place] [address], [place] [id number] Jan, [facility] [address] [id number] [address] [place] [address], [place] [id number] August, [facility] [address] [id number] [address] [place] [address], [place] [id number] 13 Mar, 2010 [facility] [address] [id number] [address] [address] Feb, [facility] [address] [facility] [id number] [address] [place] [id number] Jan, [facility] [address] [facility] [id number] [address] [place] [id number] Jan, IMMUNIZATIONS No Known Immunizations SOCIAL HISTORY Never Assessed REASON FOR VISIT PLAN OF CARE VITAL SIGNS MEDICATIONS No Known Medications RESULTS No Results PROCEDURES No Known [...]
--- OUTSIDE RECORDS SUMMARY | 2019-11-12 16:20 | XMS REPORT ---
Author Author Talia Arnett Doctor Organization [facility] Address Unknown Phone Unavailable Care Team Providers Care Desktop Publishing Associate Name Role Phone Migration, Doctor Unavailable Unavailable PROBLEMS Type Condition ICD9-CM Code WOW01-ZR Code Onset Dates Condition S tatus SNOMED Code Problem Diabetes E11.9 Active 66473055 Problem Arthritis M19.90 Active 3928314 Problem Morbid obesity E66.01 Active 57277 6002 Problem Venous insufficiency I87.2 Active 60887535 Problem CAD (coronary artery disease) I25.10 Active 72670678 Problem Other chronic pain G89.29 Active 8 4063775 Problem Hyperlipemia E78.5 Active 6914133 4 Problem Osteoarthritis of knees, bilateral M17.0 Active 674003020 Problem Essential hypertension I10 Active 23779805 Problem Type 2 diabetes mellitus wit h other specified complication, without long-term current use of insulin E11.69 Active 60613319 ALLERGIES No Information ENCOUNTERS Encounter Location Date Diagnosis [facility] [address] [facility] [place] [id number] [address] [place] [phone] Oct, Type 2 diabetes mellitus wit h other specified complication, without long-term current use of insulin E11.69 ; Venous insufficiency I87.2 ; Low back pain M54.5 and Other chronic pain G89.29 [facility] [address] [facility] [place] [id number] [address] [place] [phone] Oct, [facility] [address] [facility] [place] [id number] [address] [place] [phone] Sep, [facility] [address] [facility] [place] [id number] [address] [place] [address] August, [facility] [address] [facility] [place] [id number] [address] [place] [phone] August, [facility] [address] [facility] [place] [id number] [address] [place] [phone] August, [facility] [address] [id number] [address] [place] [phone] August, [facility] [address] [id number] [address] [place] [id number] August, [facility] [address] [id number] [address] [place] [phone] August, [facility] [address] [id number] [address] [place] [address] August, [facility] [address] [id number] [address] [place] [phone] August, Diabetes E11.9 [facility] [address] [id number] [address] [place] [phone] August, [facility] [address] [id number] [address] [place] [phone] August, [facility] [address] [id number] [address] [place] [phone] August, [facility] [address] [id number] [address] [place] [address] Jul, [facility] [address] [id number] [address] [place] [phone] Jul, [facility] [address] [id number] [address] [place] [id number] 15 Jul, 2019 [facility] [address] [id number] [address] [place] [phone] Jul, [facility] [address] [id number] [address] [place] [phone] 16 Jun, 2019 [facility] [address] [id number] [address] [place] [id number] Jun, [facility] [address] [id number] [address] [place] [phone] 12 Jun, 2019 Diabetes E11.9 ; Skin infect ion L08.9 and Essential hypertension I10 [facility] [address] [facility] [place] [id number] [address] [place] [address] May, [facility] [address] [facility] [place] [id number] [address] [place] [phone] May, [facility] [address] [facility] [place] [id number] [address] [place] [phone] May, [facility] [address] [facility] [place] [id number] [address] [place] [phone] Apr, [facility] [address] [facility] [place] [id number] [address] [place] [phone] Mar, [facility] [address] [facility] [place] [id number] [place] [address] Mar, [facility] [address] [place] [id number] [place] [address] Feb, [facility] [address] [address] Nov, [facility] [address] [facility] [place] [id number] [address] Nov, Diabetes E11.9 and Syncope, unspecified syncope type R55 [facility] [address] [facility] [place] [id number] [place] [address] Nov, Osteoarthritis of knees, natan ateral M17.0 [facility] [address] [facility] [place] [id number] [address] [place] [address] Oct, Diabetes E11.9 ; CAD (guardado ry artery disease) I25.10 ; Essential hypertension I10 and Hyperlipemia E78.5 [facility] [address] [facility] [place] [id number] [address] [place] [address] Sep, [facility] [address] [facility] [place] [id number] [address] [place] [address] Jul, [facility] [address] [place] [id number] [address] [place] [address] Apr, [facility] [address] [place] [id number] [address] [place] [address] Mar, Pustular lesion L08.9 and En counter for immunization Z23 [facility] [address] [facility] [place] [id number] [address] [place] [address] Feb, [facility] [address] [address] Dec, [facility] [address] [place] [id number] [place] [address] Dec, [place] [address] [address] Dec, Diabetes E11.9 ; Essential h ypertension I10 ; Arthritis M19.90 ; Urinary frequency R35.0 ; Routine adult health maintenance Z00.00 and BMI 45.0- 49.9, adult Z68.42 [place] [address] [address] Dec, [facility] [address] [address] Dec, [facility] [address] [place] [id number] [address] [place] [phone] Oct, [facility] [address] [place] [id number] [address] [place] [address] Sep, Diabetes E11.9 [facility] [address] [address] Sep, Diabetes E11.9 ; Hyperlipemi a E78.5 ; CAD (coronary artery disease) I25.10 ; Essential hypertension I10 and BMI 45.0-49.9, adult Z68.42 [facility] [address] [place] [id number] [address] [place] [address] Sep, [facility] [address] [address] August, [place] [id number] [place] [address] Jan, Dysuria R30.0 [place] [address] [place] [id number] [address] [place] [address] Jan, Dysuria R30.0 [place] [address] [place] [id number] [place] [address] Jan, Osteoarthritis of knees, natan ateral M17.0 [place] [address] [place] [id number] [address] [place] [address] Nov, Dysuria R30.0 [place] [address] [address] Oct, Blood in urine R31.9 ; Dysur ia R30.0 ; Pharyngeal dysphagia R13.13 ; Acute cystitis with hematuria N30.01 ; CAD (coronary artery disease) I25.10 and Diabetes E11.9 [place] [address] [address] Oct, [place] [address] [address] Sep, Arthritis M19.90 ; Blood in urine R31.9 ; Diabetes E11.9 ; Acute cystitis with hematuria N30.01 and Pharyngoesophageal dysphagia R13.14 [place] [id number] [place] [address] Sep, Osteoarthritis of knees, natan ateral M17.0 [place] [address] [place] [id number] [address] [place] [address] Sep, Osteoarthritis of knees, natan ateral M17.0 [place] [address] [place] [id number] [address] [place] [address] August, Arthritis M19.90 [place] [address] [place] [id number] [place] [address] Jul, Arthritis M19.90 [facility] [address] [id number] [address] [place] [address] Jun, Arthritis M19.90 [facility] [address] [id number] [address] [place] [address] Jun, [facility] [address] [id number] [address] [place] [address] Jun, [facility] [address] [id number] [address] [place] [phone] May, Diabetes E11.9 ; Dysuria R30 .0 and Arthritis M19.90 [facility] [address] [id number] [address] [place] [phone] Apr, [facility] [address] [id number] [address] [place] [address] Apr, Arthritis M19.90 [facility] [address] [id number] [address] [place] [address] Mar, Arthritis M19.90 [facility] [address] [id number] [address] [place] [phone] Feb, [facility] [address] [id number] [address] [place] [phone] Jan, [facility] [address] [id number] [address] [place] [address] Dec, Diabetes E11.9 and Arthritis M19.90 [facility] [address] [id number] [address] [place] [address] Dec, [facility] [address] [id number] [address] [place] [id number] Nov, Arthritis M19.90 [facility] [address] [id number] [address] [place] [id number] Nov, [facility] [address] [id number] [address] [place] [id number] Oct, Arthritis M19.90 [facility] [address] [facility] [place] [id number] [address] [place] [phone] Sep, Osteoarthritis of knees, natan ateral M17.0 [facility] [address] [id number] [address] [place] [address] 09 Sep, 2015 Osteoarthritis of knees, natan ateral M17.0 [facility] [address] [facility] [place] [id number] [address] [place] [address] August, Arthritis M19.90 [facility] [address] [id number] [address] [place] [phone] August, [facility] [address] [facility] [place] [id number] [address] [place] [address] Jul, Hyperlipemia E78.5 [facility] [address] [facility] [place] [id number] [address] [place] [address] Jul, Encounter for well woman exa m Z01.419 ; Morbid obesity E66.01 ; Encounter for screening for malignant neoplasm of cervix Z12.4 and Encounter for screening mammogram for breast cancer Z12.31 [place] [address] [facility] [place] [id number] [address] [place] [address] Jul, Arthritis M19.90 ; Diabetes E11.9 ; Blood in urine R31.9 and UTI (urinary tract infection) N39.0 [facility] [address] [facility] [place] [id number] [address] [place] [id number] Jul, [facility] [address] [facility] [place] [id number] [address] [place] [phone] Jun, Arthritis M19.90 [facility] [address] [facility] [place] [id number] [address] [place] [address] May, Arthritis M19.90 [facility] [address] [facility] [place] [id number] [address] [place] [id number] May, [facility] [address] [facility] [place] [id number] [address] [place] [address] Apr, [facility] [address] [id number] [address] [place] [phone] Apr, Arthritis M19.90 ; Diabetes E11.9 and Morbid obesity E66.01 [facility] [address] [id number] [address] [place] [address] Apr, [facility] [address] [id number] [address] [place] [address] Apr, Dyspareunia N94.1 [facility] [address] [id number] [address] [place] [id number] Apr, [facility] [address] [id number] [address] [place] [id number] 15 Apr, 2015 [facility] [address] [id number] [address] [place] [id number] Apr, Osteoarthritis of knees, natan ateral M17.0 [facility] [address] [id number] [address] [place] [id number] 14 Apr, 2015 Diabetes E11.9 and CAD (elysia nary artery disease) I25.10 [facility] [address] [id number] [address] [place] [id number] 08 Mar, 2015 [facility] [address] [id number] [address] [place] [phone] Feb, [facility] [address] [id number] [address] [place] [address] 30 Jan, 2015 [facility] [address] [id number] [address] [place] [phone] Jan, [facility] [address] [id number] [address] [place] [phone] Jan, [facility] [address] [id number] [address] [place] [phone] Jan, Osteoarthritis of knees, natan ateral M17.0 [facility] [address] [id number] [address] [place] [address], [place] [address] Dec, [facility] [address] [id number] [address] [place] [phone] Dec, [facility] [address] [id number] [address] [place] [phone] Dec, [facility] [address] [id number] [address] [place] [address] Dec, Diabetes mellitus 250.00 and UTI (urinary tract infection) 599.0 [facility] [address] [id number] [address] [place] [address], [place] [address] Dec, [facility] [address] [id number] [address] [place] [phone] Nov, [facility] [address] [id number] [address] [place] [phone] Oct, [facility] [address] [id number] [address] [place] [phone] Oct, [facility] [address] [id number] [address] [place] [phone] Oct, [facility] [address] [id number] [address] [place] [address] Oct, [facility] [address] [id number] [address] [place] [phone] Oct, [facility] [address] [id number] [address] [place] [phone] Sep, [facility] [address] [id number] [address] [place] [address], [place] [address] August, [facility] [address] [id number] [address] [place] [phone] August, [facility] [address] [id number] [address] [place] [phone] August, [facility] [address] [id number] [address] [place] [address], [place] [address] 29 Jul, 2014 [facility] [address] [id number] [address] [place] [address], [place] [address] 14 Jul, 2014 [facility] [address] [id number] [address] [place] [address], [place] [address] 13 Jul, 2014 [facility] [address] [id number] [address] [place] [address], [place] [address] Jun, [facility] [address] [id number] [address] [place] [address], [place] [address] 24 Jun, 2014 [facility] [address] [id number] [address] [place] [address], [place] [address] Jun, [facility] [address] [id number] [address] [place] [address], [place] [address] Jun, [facility] [address] [id number] [address] [place] [address], [place] [address] 24 Jun, 2014 [facility] [address] [id number] [address] [place] [address], [place] [address] Jun, [facility] [address] [id number] [address] [place] [address], [place] [address] Jun, [facility] [address] [id number] [address] [place] [address], [place] [address] Jun, [facility] [address] [id number] [address] [place] [address], [place] [address] May, [facility] [address] [id number] [address] [place] [address], [place] [address] May, [facility] [address] [id number] [address] [place] [address], [place] [address] May, [facility] [address] [id number] [address] [place] [address], [place] [address] May, [facility] [address] [id number] [address] [place] [address], [place] [address] May, [facility] [address] [id number] [address] [place] [address], [place] [address] May, 2014 [facility] [address] [id number] [address] [place] [address], [place] [address] May, 2014 [facility] [address] [id number] [address] [place] [address], [place] [address] May, 2014 [facility] [address] [id number] [address] [place] [address], [place] [address] May, 2014 [facility] [address] [id number] [address] [place] [address], [place] [address] May, 2014 [facility] [address] [id number] [address] [place] [address], [place] [address] May, 2014 [facility] [address] [id number] [address] [place] [address], [place] [address] May, 2014 [facility] [address] [id number] [address] [place] [address], [place] [address] Apr, [facility] [address] [id number] [address] [place] [address], [place] [address] Apr, [facility] [address] [id number] [address] [place] [address], [place] [address] Mar, [facility] [address] [id number] [address] [place] [address], [place] [address] Mar, [facility] [address] [id number] [address] [place] [address], [place] [address] Mar, [facility] [address] [id number] [address] [place] [address], [place] [address] Mar, [facility] [address] [id number] [address] [place] [address], [place] [address] Mar, [facility] [address] [id number] [address] [place] [address], [place] [address] Mar, [facility] [address] [id number] [address] [place] [address], [place] [address] Feb, [facility] [address] [id number] [address] [place] [address], [place] [address] Feb, [facility] [address] [id number] [address] [place] [address], [place] [address] Feb, [facility] [address] [id number] [address] [place] [address], [place] [address] Feb, [facility] [address] [id number] [address] [place] [address], [place] [address] Feb, [facility] [address] [id number] [address] [place] [address], [place] [address] Feb, [facility] [address] [id number] [address] [place] [address], [place] [address] Feb, [facility] [address] [id number] [address] [place] [address], [place] [address] Feb, [facility] [address] [id number] [address] [place] [address], [place] [address] Feb, [facility] [address] [id number] [address] [place] [address], [place] [address] Jan, [facility] [address] [id number] [address] [place] [address], [place] [address] Jan, [facility] [address] [id number] [address] [place] [address], [place] [address] Jan, [facility] [address] [id number] [address] [place] [address], [place] [address] Jan, [facility] [address] [id number] [address] [place] [address], [place] [address] Jan, [facility] [address] [id number] [address] [place] [address], [place] [address] Jan, [facility] [address] [id number] [address] [place] [address], [place] [address] Jan, [facility] [address] [id number] [address] [place] [address], [place] [id number] 17 Jan, 2014 [facility] [address] [id number] [address] [place] [address], [place] [address] Jan, [facility] [address] [id number] [address] [place] [address], [place] [address] Jan, [facility] [address] [id number] [address] [place] [address], [place] [address] Dec, [facility] [address] [id number] [address] [place] [address], [place] [address] Dec, [facility] [address] [id number] [address] [place] [address], [place] [address] Dec, [facility] [address] [id number] [address] [place] [address], [place] [address] Dec, [facility] [address] [id number] [address] [place] [address], [place] [address] Nov, [facility] [address] [id number] [address] [place] [address], [place] [address] Nov, [facility] [address] [id number] [address] [place] [address], [place] [address] Nov, [facility] [address] [id number] [address] [place] [address], [place] [address] Nov, [facility] [address] [id number] [address] [place] [address], [place] [address] Nov, [facility] [address] [id number] [address] [place] [address], [place] [address] Nov, [facility] [address] [id number] [address] [place] [address], [place] [address] Nov, [facility] [address] [id number] [address] [place] [address], [place] [address] Nov, [facility] [address] [id number] [address] [place] [address], [place] [address] Nov, [facility] [address] [id number] [facility] [place] [address] Oct, [facility] [address] [id number] [address] [place] [address], [place] [address] Oct, [facility] [address] [id number] [address] [place] [address], [place] [address] Sep, [facility] [address] [id number] [address] [place] [address], [place] [address] Sep, [facility] [address] [id number] [address] [place] [address], [place] [address] Sep, [facility] [address] [id number] [address] [place] [address], [place] [address] Sep, [facility] [address] [id number] [address] [place] [address], [place] [address] Sep, [facility] [address] [id number] [address] [place] [address], [place] [address] Sep, [facility] [address] [id number] [address] [place] [address], [place] [address] Sep, [facility] [address] [id number] [address] [place] [address], [place] [address] Sep, [facility] [address] [id number] [address] [place] [address], [place] [address] Sep, [facility] [address] [id number] [address] [place] [address], [place] [address] Sep, [facility] [address] [id number] [address] [place] [address], [place] [address] Sep, [facility] [address] [id number] [address] [place] [address], [place] [address] Sep, [facility] [address] [id number] [address] [place] [address], [place] [address] Sep, [facility] [address] [id number] [address] [place] [address], [place] [address] Sep, [facility] [address] [id number] [address] [place] [address], [place] [address] August, [facility] [address] [id number] [address] [place] [address], [place] [address] August, [facility] [address] [id number] [address] [place] [address], [place] [address] August, [facility] [address] [id number] [address] [place] [address], [place] [address] August, [facility] [address] [id number] [address] [place] [address], [place] [address] Jul, [facility] [address] [id number] [address] [place] [address], [place] [address] Jul, [facility] [address] [id number] [address] [place] [address], [place] [address] Jul, [facility] [address] [id number] [address] [place] [address], [place] [address] Jul, [facility] [address] [id number] [address] [place] [address], [place] [address] Jun, [facility] [address] [id number] [address] [place] [address], [place] [address] Jun, [facility] [address] [id number] [address] [place] [address], [place] [address] May, [facility] [address] [id number] [address] [place] [address], [place] [address] May, [facility] [address] [id number] [address] [place] [address], [place] [address] May, [facility] [address] [id number] [address] [place] [address], [place] [address] May, [facility] [address] [id number] [address] [place] [address], [place] [address] May, [facility] [address] [id number] [address] [place] [address], [place] [address] May, [facility] [address] [id number] [address] [place] [address], [place] [address] May, [facility] [address] [id number] [address] [place] [address], [place] [address] May, [facility] [address] [id number] [address] [place] [address], [place] [address] May, [facility] [address] [id number] [address] [place] [address], [place] [address] Apr, [facility] [address] [id number] [address] [place] [address], [place] [address] Apr, [facility] [address] [id number] [address] [place] [address], [place] [address] Apr, [facility] [address] [id number] [address] [place] [address], [place] [address] Apr, [facility] [address] [id number] [address] [place] [address], [place] [address] Apr, [facility] [address] [id number] [address] [place] [address], [place] [address] Mar, [facility] [address] [id number] [address] [place] [address], [place] [address] Mar, [facility] [address] [id number] [address] [place] [address], [place] [address] Feb, [facility] [address] [id number] [address] [place] [address], [place] [address] Feb, [facility] [address] [id number] [address] [place] [address], [place] [address] Feb, [facility] [address] [id number] [address] [place] [address], [place] [address] Feb, [facility] [address] [id number] [address] [place] [address], [place] [address] Feb, [facility] [address] [id number] [address] [place] [address], [place] [address] Feb, [facility] [address] [id number] [address] [place] [address], [place] [address] Feb, [facility] [address] [id number] [address] [place] [address], [place] [address] Feb, [facility] [address] [id number] [address] [place] [address], [place] [address] Feb, [facility] [address] [id number] [address] [place] [address], [place] [address] Jan, [facility] [address] [id number] [address] [place] [address], [place] [address] Jan, [facility] [address] [id number] [address] [place] [address], [place] [address] Jan, [facility] [address] [id number] [address] [place] [address], [place] [address] Jan, [facility] [address] [id number] [address] [place] [address], [place] [address] Jan, [facility] [address] [id number] [address] [place] [address], [place] [address] Dec, [facility] [address] [id number] [address] [place] [address], [place] [address] Dec, [facility] [address] [id number] [address] [place] [address], [place] [address] Nov, [facility] [address] [id number] [address] [place] [address], [place] [address] Nov, [facility] [address] [id number] [address] [place] [address], [place] [address] Oct, [facility] [address] [id number] [address] [place] [address], [place] [address] Oct, [facility] [address] [id number] [address] [place] [address], [place] [address] Oct, [facility] [address] [id number] [address] [place] [address], [place] [address] Sep, [facility] [address] [id number] [address] [place] [address], [place] [address] Sep, [facility] [address] [id number] [address] [place] [address], [place] [address] Sep, [facility] [address] [id number] [address] [place] [address], [place] [address] August, [facility] [address] [id number] [address] [place] [address], [place] [address] August, [facility] [address] [id number] [address] [place] [address], [place] [address] August, [facility] [address] [id number] [address] [place] [address], [place] [address] August, [facility] [address] [id number] [address] [place] [address], [place] [address] Jul, [facility] [address] [id number] [address] [place] [address], [place] [address] Jun, [facility] [address] [id number] [address] [place] [address], [place] [address] Jun, [facility] [address] [id number] [address] [place] [address], [place] [address] Jun, [facility] [address] [id number] [address] [place] [address], [place] [address] May, [facility] [address] [id number] [address] [place] [address], [place] [address] May, [facility] [address] [id number] [address] [place] [address], [place] [address] May, [facility] [address] [id number] [address] [place] [address], [place] [address] May, [facility] [address] [id number] [address] [place] [address], [place] [address] Apr, [facility] [address] [id number] [address] [place] [address], [place] [address] Apr, [facility] [address] [id number] [address] [place] [address], [place] [address] Apr, [facility] [address] [id number] [address] [place] [address], [place] [address] Apr, [facility] [address] [id number] [address] [place] [address], [place] [address] Apr, [facility] [address] [id number] [address] [place] [address], [place] [address] Mar, [facility] [address] [id number] [address] [place] [address], [place] [address] Mar, [facility] [address] [id number] [address] [place] [address], [place] [address] Mar, [facility] [address] [id number] [address] [place] [address], [place] [address] Mar, [facility] [address] [id number] [address] [place] [address], [place] [address] Mar, [facility] [address] [id number] [address] [place] [address], [place] [address] Mar, [facility] [address] [id number] [address] [place] [address], [place] [address] Mar, [facility] [address] [id number] [address] [place] [address], [place] [address] Feb, [facility] [address] [id number] [address] [place] [address], [place] [address] Feb, [facility] [address] [id number] [address] [place] [address], [place] [address] Feb, [facility] [address] [id number] [address] [place] [address], [place] [address] Feb, [facility] [address] [id number] [address] [place] [address], [place] [address] Feb, [facility] [address] [id number] [address] [place] [address], [place] [address] Feb, [facility] [address] [id number] [address] [place] [address], [place] [address] Feb, [facility] [address] [id number] [address] [place] [address], [place] [address] Feb, [facility] [address] [id number] [address] [place] [address], [place] [address] Jan, [facility] [address] [id number] [address] [place] [address], [place] [address] Jan, [facility] [address] [id number] [address] [place] [address], [place] [address] Jan, [facility] [address] [id number] [address] [place] [address], [place] [address] Jan, [facility] [address] [id number] [address] [place] [address], [place] [address] 27 Dec, 2011 [facility] [address] [id number] [address] [place] [address], [place] [address] 25 Dec, 2011 [facility] [address] [id number] [address] [place] [address], [place] [address] 18 Sep2011 [facility] [address] [id number] [address] [place] [address], [place] [address] 13 Dec, 2011 [facility] [address] [id number] [address] [place] [address], [place] [address] 11 Dec, 2011 [facility] [address] [id number] [address] [place] [address], [place] [address] 19 Oct, 2011 [facility] [address] [id number] [address] [place] [address] [place] [address] Oct, [facility] [address] [id number] [address] [place] [address], [place] [address] Sep, [facility] [address] [id number] [address] [place] [address], [place] [address] Sep, [facility] [address] [id number] [address] [place] [address], [place] [address] August, [facility] [address] [id number] [address] [place] [address], [place] [address] August, [facility] [address] [id number] [address] [place] [address], [place] [address] Jul, [facility] [address] [id number] [address] [place] [address], [place] [address] Jun, [facility] [address] [id number] [address] [place] [address], [place] [address] Jun, [facility] [address] [id number] [address] [place] [address], [place] [address] Jun, [facility] [address] [id number] [address] [place] [address], [place] [address] Jun, [facility] [address] [id number] [address] [place] [address], [place] [address] Jun, [facility] [address] [id number] [address] [place] [address], [place] [address] 24 May, 2011 [facility] [address] [id number] [address] [place] [address], [place] [address] May, [facility] [address] [id number] [address] [place] [address], [place] [address] 20 May, 2011 [facility] [address] [id number] [address] [place] [address], [place] [address] 14 May, 2011 [facility] [address] [id number] [address] [place] [address], [place] [address] 13 May, 2011 [facility] [address] [id number] [address] [place] [address], [place] [address] 03 May, 2011 [facility] [address] [id number] [address] [place] [address], [place] [address] May, [facility] [address] [id number] [address] [place] [address], [place] [address] May, [facility] [address] [id number] [address] [place] [address], [place] [address] Apr, [facility] [address] [id number] [address] [place] [address], [place] [address] Mar, [facility] [address] [id number] [address] [place] [address], [place] [address] Mar, [facility] [address] [id number] [address] [place] [address], [place] [address] Mar, [facility] [address] [id number] [address] [place] [address], [place] [address] Mar, [facility] [address] [id number] [address] [place] [address], [place] [address] Mar, [facility] [address] [id number] [address] [place] [address], [place] [address] Jan, [facility] [address] [id number] [address] [place] [address], [place] [address] Jan, [facility] [address] [id number] [address] [place] [address], [place] [address] Jan, [facility] [address] [id number] [address] [place] [address], [place] [address] August, [facility] [address] [id number] [address] [place] [address], [place] [address] Mar, [facility] [address] [id number] [address] [place] [address], [place] [address] Feb, [facility] [address] [id number] [address] [place] [address] 14 Jan, 2010 [facility] [address] [facility] [place] [id number] [address] [place] [address] 11 Jan, 2010 IMMUNIZATIONS No Known Immunizations SOCIAL HISTORY Never Assessed REASON FOR VISIT PLAN OF CARE VITAL SIGNS Temperature 97.9 degrees Fahrenheit 2012-10-25 Heart Rate 77 bpm 2012-10-25 Respiratory Rate 22 2012-10-25 Blood pressure systolic 108 mmHg 2012-10-25 Blood pressure diastolic 62 mmHg 2012-10-25 MEDICATIONS No Known Medications RESULTS No Results PROCEDURES Procedure Date Ordered Result Body Site MEASURE BLOOD OXYGEN LEVEL October 25, 2012 GLYCATED HEMOGLOBIN TEST October 25, 2012 DRAIN/INJECT, JOINT/BURSA October 25, 2012 INSTRUCTIONS MEDICATIONS ADMINISTERED No Known Medications MEDICAL [...]
--- OUTSIDE RECORDS SUMMARY | 2019-11-12 16:20 | XMS REPORT ---
Author Author Talia HUDSON Organization [facility] Address [address] [place] [address] Care Team Providers Care Respiratory Director Name Role Phone KATIE HUDSON Unavailable PROBLEMS Type Condition ICD9-CM Code [id number] Code Onset Dates Condition S tatus SNOMED Code Problem Diabetes E11.9 Active 93166255 Problem Arthritis M19.90 Active 8200879 Problem Morbid obesity E66.01 Active 06323 6002 Problem Venous insufficiency I87.2 Active 78710285 Problem CAD (coronary artery disease) I25.10 Active 76206579 Problem Other chronic pain G89.29 Active 8 9478284 Problem Hyperlipemia E78.5 Active 0996374 4 Problem Osteoarthritis of knees, bilateral M17.0 Active 162746333 Problem Essential hypertension I10 Active 49060926 Problem Type 2 diabetes mellitus wit h other specified complication, without long-term current use of insulin E11.69 Active [id number] ALLERGIES No Information ENCOUNTERS Encounter Location Date Diagnosis [place] [address] [facility] [id number] [address] [place] [address] Oct, Type 2 diabetes mellitus wit h other specified complication, without long-term current use of insulin E11.69 ; Venous insufficiency I87.2 ; Low back pain M54.5 and Other chronic pain G89.29 [place] [address] [facility] [id number] [address] [place] [address] Oct, [facility] [address] [facility] [id number] [address] [place] [address] Sep, [place] [address] [facility] [id number] [address] [place] [address] August, [facility] [address] [facility] [id number] [address] [place] [address] August, [facility] [address] [id number] [address] [place] [address], [place] [address] August, [facility] [address] [id number] [address] [place] [address], [place] [address] August, [facility] [address] [id number] [address] [place] [address], [place] [address] August, [facility] [address] [id number] [address] [place] [address] August, [facility] [address] [id number] [address] [place] [address], [place] [address] August, [facility] [address] [id number] [address] [place] [address] August, Diabetes E11.9 [facility] [address] [id number] [address] [place] [address] August, [facility] [address] [id number] [address] [place] [address] August, [facility] [address] [id number] [address] [place] [address] August, [facility] [address] [id number] [address] [place] [address] Jul, [facility] [address] [id number] [address] [place] [address] Jul, [facility] [address] [id number] [address] [place] [address] 15 Jul, 2019 [facility] [address] [id number] [address] [place] [address] 10 Jul, 2019 [facility] [address] [id number] [address] [place] [address] 16 Jun, 2019 [facility] [address] [id number] [address] [place] [address] 16 Jun, 2019 [facility] [address] [id number] [address] [place] [address] Jun, Diabetes E11.9 ; Skin infect ion L08.9 and Essential hypertension I10 [facility] [address] [address] May, [facility] [address] [facility] [id number] [address] [place] [address] May, [facility] [address] [address] May, [facility] [address] [place] [id number] [place] [address] Apr, [facility] [address] [address] Mar, [facility] [address] [address] Mar, [facility] [address] [address] Feb, [facility] [address] [address] Nov, [facility] [address] [address] Nov, Diabetes E11.9 and Syncope, unspecified syncope type R55 [place] [address] [address] Nov, Osteoarthritis of knees, natan ateral M17.0 [facility] [address] [place] [id number] [address] [place] [address] Oct, Diabetes E11.9 ; CAD (guardado ry artery disease) I25.10 ; Essential hypertension I10 and Hyperlipemia E78.5 [facility] [address] [place] [id number] [address] [place] [address] Sep, [facility] [address] [place] [id number] [place] [address] Jul, [facility] [address] [facility] [id number] [address] [place] [address] Apr, [facility] [address] [address] Mar, Pustular lesion L08.9 and En counter for immunization Z23 [facility] [address] [place] [id number] [place] [address] Feb, [facility] [address] [place] [id number] [place] [address] Dec, [facility] [address] [place] [id number] [place] [address] Dec, [facility] [address] [address] Dec, Diabetes E11.9 ; Essential h ypertension I10 ; Arthritis M19.90 ; Urinary frequency R35.0 ; Routine adult health maintenance Z00.00 and BMI 45.0- 49.9, adult Z68.42 [facility] [address] [address] Dec, [facility] [address] [address] Dec, [facility] [address] [address] Oct, [facility] [address] [place] [id number] [place] [address] Sep, Diabetes E11.9 [facility] [address] [place] [id number] [address] [place] [address] Sep, Diabetes E11.9 ; Hyperlipemi a E78.5 ; CAD (coronary artery disease) I25.10 ; Essential hypertension I10 and BMI 45.0-49.9, adult Z68.42 [facility] [address] [place] [id number] [address] [place] [address] Sep, [place] [address] [facility] [id number] [address] [place] [address] August, [facility] [address] [facility] [id number] [address] [place] [address] Jan, Dysuria R30.0 [place] [address] [place] [id number] [address] [place] [address] Jan, Dysuria R30.0 [facility] [address] [place] [id number] [address] [place] [address] Jan, Osteoarthritis of knees, natan ateral M17.0 [place] [address] [place] [id number] [address] [place] [address] Nov, Dysuria R30.0 [place] [address] [facility] [id number] [address] [place] [address] Oct, Blood in urine R31.9 ; Dysur ia R30.0 ; Pharyngeal dysphagia R13.13 ; Acute cystitis with hematuria N30.01 ; CAD (coronary artery disease) I25.10 and Diabetes E11.9 [place] [address] [facility] [id number] [address] [place] [address] Oct, [place] [address] [facility] [id number] [address] [place] [address] Sep, Arthritis M19.90 ; Blood in urine R31.9 ; Diabetes E11.9 ; Acute cystitis with hematuria N30.01 and Pharyngoesophageal dysphagia R13.14 [facility] [address] [facility] [id number] [address] [place] [address] 29 Sep, 2016 Osteoarthritis of knees, natan ateral M17.0 [place] [address] [place] [id number] [address] [place] [address] Sep, Osteoarthritis of knees, natan ateral M17.0 [place] [address] [place] [id number] [address] [place] [address] August, Arthritis M19.90 [place] [address] [id number] [address] [place] [address] Jul, Arthritis M19.90 [facility] [address] [id number] [address] [place] [address] Jun, Arthritis M19.90 [facility] [address] [id number] [address] [place] [address] Jun, [facility] [address] [id number] [address] [place] [address] Jun, [facility] [address] [id number] [address] [place] [address] May, Diabetes E11.9 ; Dysuria R30 .0 and Arthritis M19.90 [facility] [address] [id number] [address] [place] [address] Apr, [facility] [address] [id number] [address] [place] [address] Apr, Arthritis M19.90 [facility] [address] [id number] [address] [place] [address] Mar, Arthritis M19.90 [facility] [address] [id number] [address] [place] [address] Feb, [facility] [address] [id number] [address] [place] [address] Jan, [facility] [address] [id number] [address] [place] [address] Dec, Diabetes E11.9 and Arthritis M19.90 [facility] [address] [id number] [address] [place] [address] Dec, [facility] [address] [facility] [id number] [address] [place] [address] Nov, Arthritis M19.90 [facility] [address] [id number] [address] [place] [address] Nov, [facility] [address] [facility] [id number] [address] [place] [address] Oct, Arthritis M19.90 [facility] [address] [facility] [id number] [address] [place] [address] Sep, Osteoarthritis of knees, natan ateral M17.0 [facility] [address] [facility] [id number] [address] [place] [address] Sep, Osteoarthritis of knees, natan ateral M17.0 [place] [address] [facility] [id number] [address] [place] [address] August, Arthritis M19.90 [place] [address] [facility] [id number] [address] [place] [address] August, [place] [address] [facility] [id number] [address] [place] [address] Jul, Hyperlipemia E78.5 [place] [address] [place] [id number] [address] [place] [address] Jul, Encounter for well woman exa m Z01.419 ; Morbid obesity E66.01 ; Encounter for screening for malignant neoplasm of cervix Z12.4 and Encounter for screening mammogram for breast cancer Z12.31 [place] [address] [place] [id number] [address] [place] [address] Jul, Arthritis M19.90 ; Diabetes E11.9 ; Blood in urine R31.9 and UTI (urinary tract infection) N39.0 [place] [address] [facility] [id number] [address] [place] [address] Jul, [place] [address] [facility] [id number] [address] [place] [address] Jun, Arthritis M19.90 [place] [address] [facility] [id number] [address] [place] [address] May, Arthritis M19.90 [place] [address] [facility] [id number] [address] [place] [address] May, [facility] [address] [id number] [address] [place] [address] Apr, [facility] [address] [facility] [id number] [address] [place] [address] Apr, Arthritis M19.90 ; Diabetes E11.9 and Morbid obesity E66.01 [facility] [address] [facility] [id number] [address] [place] [address] Apr, [facility] [address] [facility] [id number] [address] [place] [address] Apr, Dyspareunia N94.1 [facility] [address] [facility] [id number] [address] [place] [address] Apr, [facility] [address] [facility] [id number] [address] [place] [address] Apr, [facility] [address] [facility] [id number] [address] [place] [address] Apr, Osteoarthritis of knees, natan ateral M17.0 [facility] [address] [facility] [id number] [address] [place] [address] Apr, Diabetes E11.9 and CAD (elysia nary artery disease) I25.10 [facility] [address] [facility] [id number] [address] [place] [address] Mar, [facility] [address] [facility] [id number] [address] [place] [address] Feb, [facility] [address] [facility] [id number] [address] [place] [address] Jan, [facility] [address] [facility] [id number] [address] [place] [address] Jan, [facility] [address] [facility] [id number] [address] [place] [address] Jan, [facility] [address] [facility] [id number] [address] [place] [address] Jan, Osteoarthritis of knees, natan ateral M17.0 [facility] [address] [id number] [address] [place] [address] 30 Dec, 2014 [facility] [address] [id number] [address] [place] [address] Dec, [facility] [address] [id number] [address] [place] [address] Dec, [facility] [address] [id number] [address] [place] [address] 08 Dec, 2014 Diabetes mellitus 250.00 and UTI (urinary tract infection) 599.0 [facility] [address] [id number] [address] [place] [address] Dec, [facility] [address] [id number] [address] [place] [address] Nov, [facility] [address] [id number] [address] [place] [address] Oct, [facility] [address] [id number] [address] [place] [address] Oct, [facility] [address] [id number] [address] [place] [address] Oct, [facility] [address] [id number] [address] [place] [address] Oct, [facility] [address] [id number] [address] [place] [address] Oct, [facility] [address] [id number] [address] [place] [address] Sep, [facility] [address] [id number] [address] [place] [address] August, [facility] [address] [id number] [address] [place] [address] August, [facility] [address] [id number] [address] [place] [address] August, [facility] [address] [id number] [address] [place] [address], [place] [address] Jul, [facility] [address] [id number] [address] [place] [address], [place] [address] Jul, [facility] [address] [id number] [address] [place] [address], [place] [address] Jul, [facility] [address] [id number] [address] [place] [address], [place] [address] Jun, [facility] [address] [id number] [address] [place] [address], [place] [address] Jun, [facility] [address] [id number] [address] [place] [address], [place] [address] Jun, [facility] [address] [id number] [address] [place] [address], [place] [address] Jun, [facility] [address] [id number] [address] [place] [address], [place] [address] Jun, [facility] [address] [id number] [address] [place] [address], [place] [address] Jun, [facility] [address] [id number] [address] [place] [address], [place] [address] Jun, [facility] [address] [id number] [address] [place] [address], [place] [address] Jun, [facility] [address] [id number] [address] [place] [address], [place] [address] May, [facility] [address] [id number] [address] [place] [address], [place] [address] May, [facility] [address] [id number] [address] [place] [address], [place] [address] May, [facility] [address] [id number] [address] [place] [address], [place] [address] May, [facility] [address] [id number] [address] [place] [address], [place] [address] May, 2014 [facility] [address] [id number] [address] [place] [address], [place] [address] May, 2014 [facility] [address] [id number] [address] [place] [address], [place] [address] May, 2014 [facility] [address] [id number] [address] [place] [address], [place] [address] May, 2014 [facility] [address] [id number] [address] [place] [address], [place] [address] May, 2014 [facility] [address] [id number] [address] [place] [address], [place] [address] May, 2014 [facility] [address] [id number] [address] [place] [address], [place] [address] May, 2014 [facility] [address] [id number] [address] [place] [address], [place] [address] May, [facility] [address] [id number] [address] [place] [address], [place] [address] Apr, [facility] [address] [id number] [address] [place] [address], [place] [address] Apr, [facility] [address] [id number] [address] [place] [address], [place] [address] Mar, [facility] [address] [id number] [address] [place] [address], [place] [address] Mar, [facility] [address] [id number] [address] [place] [address], [place] [address] Mar, [facility] [address] [id number] [address] [place] [address], [place] [address] Mar, [facility] [address] [id number] [address] [place] [address], [place] [address] Mar, [facility] [address] [id number] [address] [place] [address], [place] [address] 16 Mar, 2014 [facility] [address] [id number] [address] [place] [address], [place] [address] Feb, [facility] [address] [id number] [address] [place] [address], [place] [address] Feb, [facility] [address] [id number] [address] [place] [address], [place] [address] Feb, [facility] [address] [id number] [address] [place] [address], [place] [address] Feb, [facility] [address] [id number] [address] [place] [address], [place] [address] Feb, [facility] [address] [id number] [address] [place] [address], [place] [address] Feb, [facility] [address] [id number] [address] [place] [address], [place] [address] Feb, [facility] [address] [id number] [address] [place] [address], [place] [address] Feb, [facility] [address] [id number] [address] [place] [address], [place] [address] Feb, [facility] [address] [id number] [address] [place] [address], [place] [address] Jan, [facility] [address] [id number] [address] [place] [address], [place] [address] Jan, [facility] [address] [id number] [address] [place] [address], [place] [address] Jan, [facility] [address] [id number] [address] [place] [address], [place] [address] Jan, [facility] [address] [id number] [address] [place] [address], [place] [address] Jan, [facility] [address] [id number] [address] [place] [address], [place] [address] Jan, [facility] [address] [id number] [facility] [place] [address] 17 Jan, 2014 [facility] [address] [id number] [address] [place] [address], [place] [address] 17 Jan, 2014 [facility] [address] [id number] [address] [place] [address], [place] [address] Jan, [facility] [address] [id number] [address] [place] [address], [place] [address] Jan, [facility] [address] [id number] [address] [place] [address], [place] [address] Dec, [facility] [address] [id number] [address] [place] [address], [place] [address] Dec, [facility] [address] [id number] [address] [place] [address], [place] [address] Dec, [facility] [address] [id number] [address] [place] [address], [place] [address] Dec, [facility] [address] [id number] [address] [place] [address], [place] [address] Nov, [facility] [address] [id number] [address] [place] [address], [place] [address] Nov, [facility] [address] [id number] [address] [place] [address], [place] [address] Nov, [facility] [address] [id number] [address] [place] [address], [place] [address] Nov, [facility] [address] [id number] [address] [place] [address], [place] [address] Nov, [facility] [address] [id number] [address] [place] [address], [place] [address] Nov, [facility] [address] [id number] [address] [place] [address], [place] [address] Nov, [facility] [address] [id number] [address] [place] [address], [place] [address] Nov, [facility] [address] [id number] [facility] [place] [address] Nov, [facility] [address] [id number] [address] [place] [address], [place] [address] Oct, [facility] [address] [id number] [facility] [place] [address] Oct, [facility] [address] [id number] [address] [place] [address], [place] [address] Sep, [facility] [address] [id number] [address] [place] [address], [place] [address] Sep, [facility] [address] [id number] [address] [place] [address], [place] [address] Sep, [facility] [address] [id number] [address] [place] [address], [place] [address] Sep, [facility] [address] [id number] [address] [place] [address], [place] [address] Sep, [facility] [address] [id number] [address] [place] [address], [place] [address] Sep, [facility] [address] [id number] [address] [place] [address], [place] [address] Sep, [facility] [address] [id number] [address] [place] [address], [place] [address] Sep, [facility] [address] [id number] [address] [place] [address], [place] [address] Sep, [facility] [address] [id number] [address] [place] [address], [place] [address] Sep, [facility] [address] [id number] [address] [place], [place] [address], [place] [address] Sep, [facility] [address] [id number] [address] [place] [address], [place] [address] Sep, [facility] [address] [id number] [address] [place] [address], [place] [address] Sep, [facility] [address] [id number] [address] [place] [address], [place] [address] Sep, [facility] [address] [id number] [address] [place] [address], [place] [address] August, [facility] [address] [id number] [address] [place] [address], [place] [address] August, [facility] [address] [id number] [address] [place] [address], [place] [address] August, [facility] [address] [id number] [address] [place] [address], [place] [address] August, [facility] [address] [id number] [address] [place] [address], [place] [address] Jul, [facility] [address] [id number] [address] [place] [address], [place] [address] Jul, [facility] [address] [id number] [address] [place] [address], [place] [address] Jul, [facility] [address] [id number] [address] [place] [address], [place] [address] Jul, [facility] [address] [id number] [address] [place] [address], [place] [address] Jun, [facility] [address] [id number] [address] [place] [address], [place] [address] Jun, [facility] [address] [id number] [address] [place] [address], [place] [address] May, [facility] [address] [id number] [address] [place] [address], [place] [address] May, [facility] [address] [id number] [address] [place] [address], [place] [address] May, [facility] [address] [id number] [address] [place] [address], [place] [address] May, [facility] [address] [id number] [address] [place] [address], [place] [address] May, [facility] [address] [id number] [address] [place] [address], [place] [address] May, [facility] [address] [id number] [address] [place] [address], [place] [address] May, [facility] [address] [id number] [address] [place] [address], [place] [address] May, [facility] [address] [id number] [address] [place] [address], [place] [address] May, [facility] [address] [id number] [address] [place] [address], [place] [address] Apr, [facility] [address] [id number] [address] [place] [address], [place] [address] Apr, [facility] [address] [id number] [address] [place] [address], [place] [address] Apr, [facility] [address] [id number] [address] [place] [address], [place] [address] Apr, [facility] [address] [id number] [address] [place] [address], [place] [address] Apr, [facility] [address] [id number] [address] [place] [address], [place] [address] Mar, [facility] [address] [id number] [address] [place] [address], [place] [address] Mar, [facility] [address] [id number] [address] [place] [address], [place] [address] Feb, [facility] [address] [id number] [address] [place] [address], [place] [address] Feb, [facility] [address] [id number] [address] [place] [address], [place] [address] Feb, [facility] [address] [id number] [address] [place] [address], [place] [address] Feb, [facility] [address] [id number] [address] [place] [address], [place] [address] Feb, [facility] [address] [id number] [address] [place] [address], [place] [address] Feb, [facility] [address] [id number] [address] [place] [address], [place] [address] Feb, [facility] [address] [id number] [address] [place] [address], [place] [address] Feb, [facility] [address] [id number] [address] [place] [address], [place] [address] Feb, [facility] [address] [id number] [address] [place] [address], [place] [address] Jan, [facility] [address] [id number] [address] [place] [address], [place] [address] Jan, [facility] [address] [id number] [address] [place] [address], [place] [address] Jan, [facility] [address] [id number] [address] [place] [address], [place] [address] Jan, [facility] [address] [id number] [address] [place] [address], [place] [address] Jan, [facility] [address] [id number] [address] [place] [address], [place] [address] Dec, [facility] [address] [id number] [address] [place] [address], [place] [address] Dec, [facility] [address] [id number] [address] [place] [address], [place] [address] Nov, [facility] [address] [id number] [address] [place] [address], [place] [address] Nov, [facility] [address] [id number] [address] [place] [address], [place] [address] Oct, [facility] [address] [id number] [address] [place] [address], [place] [address] Oct, [facility] [address] [id number] [address] [place] [address], [place] [address] Oct, [facility] [address] [id number] [address] [place] [address], [place] [address] Sep, [facility] [address] [id number] [address] [place] [address], [place] [address] Sep, [facility] [address] [id number] [address] [place] [address], [place] [address] Sep, [facility] [address] [id number] [address] [place] [address], [place] [address] August, [facility] [address] [id number] [address] [place] [address], [place] [address] August, [facility] [address] [id number] [address] [place] [address], [place] [address] August, [facility] [address] [id number] [address] [place] [address], [place] [address] August, [facility] [address] [id number] [address] [place] [address], [place] [address] Jul, [facility] [address] [id number] [address] [place] [address], [place] [address] Jun, [facility] [address] [id number] [address] [place] [address], [place] [address] Jun, [facility] [address] [id number] [address] [place] [address], [place] [address] 05 Jun, 2012 [facility] [address] [id number] [address] [place] [address], [place] [address] May, [facility] [address] [id number] [address] [place] [address], [place] [address] May, [facility] [address] [id number] [address] [place] [address], [place] [address] 04 May, 2012 [facility] [address] [id number] [address] [place] [address], [place] [address] May, [facility] [address] [id number] [address] [place] [address], [place] [address] Apr, [facility] [address] [id number] [address] [place] [address], [place] [address] Apr, [facility] [address] [id number] [address] [place] [address], [place] [address] Apr, [facility] [address] [id number] [address] [place] [address], [place] [address] Apr, [facility] [address] [id number] [address] [place] [address], [place] [address] Apr, [facility] [address] [id number] [address] [place] [address], [place] [address] Mar, [facility] [address] [id number] [address] [place] [address], [place] [address] Mar, [facility] [address] [id number] [address] [place] [address], [place] [address] Mar, [facility] [address] [id number] [address] [place] [address], [place] [address] Mar, [facility] [address] [id number] [address] [place] [address], [place] [address] Mar, [facility] [address] [id number] [address] [place] [address], [place] [address] Mar, [facility] [address] [id number] [address] [place] [address], [place] [address] Mar, [facility] [address] [id number] [address] [place] [address], [place] [address] Feb, [facility] [address] [id number] [address] [place] [address], [place] [address] Feb, [facility] [address] [id number] [address] [place] [address], [place] [address] Feb, [facility] [address] [id number] [address] [place] [address], [place] [address] Feb, [facility] [address] [id number] [address] [place] [address], [place] [address] Feb, [facility] [address] [id number] [address] [place] [address], [place] [address] Feb, [facility] [address] [id number] [address] [place] [address], [place] [address] Feb, [facility] [address] [id number] [address] [place] [address], [place] [address] Feb, [facility] [address] [id number] [address] [place] [address], [place] [address] Jan, [facility] [address] [id number] [address] [place] [address], [place] [address] Jan, [facility] [address] [id number] [address] [place] [address], [place] [address] Jan, [facility] [address] [id number] [address] [place] [address], [place] [address] Jan, [facility] [address] [id number] [address] [place] [address], [place] [address] 27 Dec, 2011 [facility] [address] [id number] [address] [place] [address], [place] [address] 25 Sep2011 [facility] [address] [id number] [address] [place] [address], [place] [address] 18 Sep2011 [facility] [address] [id number] [address] [place] [address], [place] [address] 13 Sep2011 [facility] [address] [id number] [address] [place] [address], [place] [address] 11 Sep2011 [facility] [address] [id number] [address] [place] [address], [place] [address] Oct, [facility] [address] [id number] [address] [place] [address], [place] [address] Oct, [facility] [address] [id number] [address] [place] [address], [place] [address] Sep, [facility] [address] [id number] [address] [place] [address], [place] [address] Sep, [facility] [address] [id number] [address] [place] [address], [place] [address] August, [facility] [address] [id number] [address] [place] [address], [place] [address] August, [facility] [address] [id number] [address] [place] [address], [place] [address] Jul, [facility] [address] [id number] [address] [place] [address], [place] [address] Jun, [facility] [address] [id number] [address] [place] [address], [place] [address] Jun, [facility] [address] [id number] [address] [place] [address], [place] [address] Jun, [facility] [address] [id number] [address] [place] [address], [place] [address] Jun, [facility] [address] [id number] [address] [place] [address], [place] [address] Jun, [facility] [address] [id number] [address] [place] [address], [place] [address] May, [facility] [address] [id number] [address] [place] [address], [place] [address] May, [facility] [address] [id number] [address] [place] [address], [place] [address] 20 May, 2011 [facility] [address] [id number] [address] [place] [address], [place] [address] 14 May, 2011 [facility] [address] [id number] [address] [place] [address], [place] [address] 13 May, 2011 [facility] [address] [id number] [address] [place] [address], [place] [address] 03 May, 2011 [facility] [address] [id number] [address] [place] [address], [place] [address] 02 May, 2011 [facility] [address] [id number] [address] [place] [address], [place] [address] May, [facility] [address] [id number] [address] [place] [address], [place] [address] Apr, [facility] [address] [id number] [address] [place] [address], [place] [address] Mar, [facility] [address] [id number] [address] [place] [address], [place] [address] Mar, [facility] [address] [id number] [address] [place] [address], [place] [address] Mar, [facility] [address] [id number] [address] [place] [address], [place] [address] 15 Mar, 2011 [facility] [address] [id number] [address] [place] [address], [place] [address] Mar, [facility] [address] [id number] [address] [place] [address], [place] [address] 17 Jan, 2011 [facility] [address] [id number] [address] [place] [address], [place] [address] Jan, [facility] [address] [id number] [address] [place] [address], [place] [address] Jan, [facility] [address] [id number] [address] [place] [address], [place] [address] August, [facility] [address] [id number] [address] [place] [address], [place] [address] 13 Mar, 2010 [facility] [address] [id number] [address] [address] Feb, [facility] [address] [facility] [id number] [address] [place] [address] Jan, [facility] [address] [facility] [id number] [address] [place] [address] Jan, IMMUNIZATIONS No Known Immunizations SOCIAL HISTORY [...]
--- OUTSIDE RECORDS SUMMARY | 2019-11-12 16:20 | XMS REPORT ---
Author Author Talia HUDSON Organization 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 Name Role Phone KATIE HUDSON Unavailable PROBLEMS Type Condition ICD9-CM Code XMC91-UQ Code Onset Dates Condition S tatus SNOMED Code Problem Diabetes E11.9 Active 27992112 Problem Arthritis M19.90 Active 5736804 Problem Morbid obesity E66.01 Active 94414 6002 Problem Venous insufficiency I87.2 Active 46770098 Problem CAD (coronary artery disease) I25.10 Active 16309400 Problem Other chronic pain G89.29 Active 8 0415421 Problem Hyperlipemia E78.5 Active 6250148 4 Problem Osteoarthritis of knees, bilateral M17.0 Active 157192019 Problem Essential hypertension I10 Active 84443020 Problem Type 2 diabetes mellitus wit h other specified complication, without long-term current use of insulin E11.69 Active 88318364 ALLERGIES No Information ENCOUNTERS Encounter Location Date Diagnosis [place] [address] [facility] [id number] [address] [place] [id number] Oct, Type 2 diabetes mellitus wit h other specified complication, without long-term current use of insulin E11.69 ; Venous insufficiency I87.2 ; Low back pain M54.5 and Other chronic pain G89.29 [facility] [address] [facility] [id number] [address] [place] [phone] Oct, [facility] [address] [facility] [id number] [address] [place] [address] Sep, [place] [address] [facility] [id number] [address] [place] [address] August, [facility] [address] [facility] [id number] [address] [place] [phone] August, [facility] [address] [id number] [address] [place] [address], [place] [address] August, [facility] [address] [id number] [address] [place] [address], [place] [address] August, [facility] [address] [id number] [address] [place] [address], [place] [address] August, [facility] [address] [id number] [address] [place] [phone] August, [facility] [address] [id number] [address] [place] [address], [place] [address] August, [facility] [address] [id number] [address] [place] [address] August, Diabetes E11.9 [facility] [address] [id number] [address] [place] [address] August, [facility] [address] [id number] [address] [place] [address] August, [facility] [address] [id number] [address] [place] [address] August, [facility] [address] [id number] [address] [place] [id number] Jul, [facility] [address] [id number] [address] [place] [address] Jul, [facility] [address] [id number] [address] [place] [id number] 15 Jul, 2019 [facility] [address] [id number] [address] [place] [address] 10 Jul, 2019 [facility] [address] [id number] [address] [place] [address] 16 Jun, 2019 [facility] [address] [id number] [address] [place] [phone] 16 Jun, 2019 [facility] [address] [id number] [address] [place] [address] Jun, Diabetes E11.9 ; Skin infect ion L08.9 and Essential hypertension I10 [facility] [address] [address] May, [facility] [address] [facility] [id number] [address] [place] [address] May, [facility] [address] [address] May, [facility] [address] [place] [id number] [place] [address] Apr, [facility] [address] [address] Mar, [facility] [address] [address] Mar, [facility] [address] [address] Feb, [facility] [address] [address] Nov, [facility] [address] [address] Nov, Diabetes E11.9 and Syncope, unspecified syncope type R55 [place] [address] [address] Nov, Osteoarthritis of knees, natan ateral M17.0 [facility] [address] [place] [id number] [address] [place] [address] Oct, Diabetes E11.9 ; CAD (guardado ry artery disease) I25.10 ; Essential hypertension I10 [address]5 [facility] [address] [place] [id number] [address] [place] [address] Sep, [facility] [address] [place] [id number] [place] [address] Jul, [facility] [address] [facility] [id number] [address] [place] [address] Apr, [facility] [address] [address] Mar, Pustular lesion L08.9 and En counter for immunization Z23 [facility] [address] [place] [id number] [place] [phone] Feb, [facility] [address] [place] [id number] [place] [address] Dec, [facility] [address] [place] [id number] [place] [address] Dec, [facility] [address] [address] Dec, Diabetes E11.9 ; Essential h ypertension I10 ; Arthritis M19.90 ; Urinary frequency R35.0 ; Routine adult health maintenance Z00.00 and BMI 45.0- 49.9, adult Z68.42 [facility] [address] [address] Dec, [facility] [address] [address] Dec, [facility] [address] [address] Oct, [facility] [address] [place] [id number] [place] [address] Sep, Diabetes E11.9 [facility] [address] [place] [id number] [address] [place] [address] Sep, Diabetes E11.9 ; Hyperlipemi a E78.5 ; CAD (coronary artery disease) I25.10 ; Essential hypertension I10 and BMI 45.0-49.9, adult Z68.42 [facility] [address] [place] [id number] [address] [place] [address] Sep, [place] [address] [facility] [id number] [address] [place] [address] August, [facility] [address] [facility] [id number] [address] [place] [address] Jan, Dysuria R30.0 [place] [address] [place] [id number] [address] [place] [address] Jan, Dysuria R30.0 [facility] [address] [place] [id number] [address] [place] [address] Jan, Osteoarthritis of knees, natan ateral M17.0 [place] [address] [place] [id number] [address] [place] [address] Nov, Dysuria R30.0 [place] [address] [facility] [id number] [address] [place] [address] Oct, Blood in urine R31.9 ; Dysur ia R30.0 ; Pharyngeal dysphagia R13.13 ; Acute cystitis with hematuria N30.01 ; CAD (coronary artery disease) I25.10 and Diabetes E11.9 [place] [address] [facility] [id number] [address] [place] [address] Oct, [place] [address] [facility] [id number] [address] [place] [address] Sep, Arthritis M19.90 ; Blood in urine R31.9 ; Diabetes E11.9 ; Acute cystitis with hematuria N30.01 and Pharyngoesophageal dysphagia R13.14 [facility] [address] [facility] [id number] [address] [place] [address] 29 Sep, 2016 Osteoarthritis of knees, natan ateral M17.0 [place] [address] [place] [id number] [address] [place] [address] Sep, Osteoarthritis of knees, natan ateral M17.0 [place] [address] [place] [id number] [address] [place] [address] August, Arthritis M19.90 [place] [address] [id number] [address] [place] [address] Jul, Arthritis M19.90 [facility] [address] [id number] [address] [place] [address] Jun, Arthritis M19.90 [facility] [address] [id number] [address] [place] [id number] Jun, [facility] [address] [id number] [address] [place] [address] Jun, [facility] [address] [id number] [address] [place] [address] May, Diabetes E11.9 ; Dysuria R30 [address] [facility] [address] [id number] [address] [place] [address] Apr, [facility] [address] [id number] [address] [place] [address] Apr, Arthritis M19.90 [facility] [address] [id number] [address] [place] [address] Mar, Arthritis M19.90 [facility] [address] [id number] [address] [place] [id number] Feb, [facility] [address] [id number] [address] [place] [id number] Jan, [facility] [address] [id number] [address] [place] [address] Dec, Diabetes E11.[address] [facility] [address] [id number] [address] [place] [phone] Dec, [facility] [address] [facility] [id number] [address] [place] [address] Nov, Arthritis M19.90 [facility] [address] [id number] [address] [place] [id number] Nov, [facility] [address] [facility] [id number] [address] [place] [address] Oct, Arthritis M19.90 [facility] [address] [facility] [id number] [address] [place] [address] Sep, Osteoarthritis of knees, natan ateral M17.0 [facility] [address] [facility] [id number] [address] [place] [address] Sep, Osteoarthritis of knees, natan ateral M17.0 [place] [address] [facility] [id number] [address] [place] [address] August, Arthritis M19.90 [place] [address] [facility] [id number] [address] [place] [address] August, [place] [address] [facility] [id number] [address] [place] [address] Jul, Hyperlipemia E78.5 [place] [address] [place] [id number] [address] [place] [address] Jul, Encounter for well woman exa m Z01.419 ; Morbid obesity E66.01 ; Encounter for screening for malignant neoplasm of cervix Z12.4 and Encounter for screening mammogram for breast cancer Z12.31 [place] [address] [place] [id number] [address] [place] [address] Jul, Arthritis M19.90 ; Diabetes E11.9 ; Blood in urine R31.9 and UTI (urinary tract infection) N39.0 [place] [address] [facility] [id number] [address] [place] [address] Jul, [place] [address] [facility] [id number] [address] [place] [address] Jun, Arthritis M19.90 [place] [address] [facility] [id number] [address] [place] [address] May, Arthritis M19.90 [place] [address] [facility] [id number] [address] [place] [address] May, [facility] [address] [id number] [address] [place] [id number] Apr, [facility] [address] [facility] [id number] [address] [place] [address] Apr, Arthritis M19.90 ; Diabetes E11.9 and Morbid obesity E66.01 [facility] [address] [facility] [id number] [address] [place] [address] Apr, [facility] [address] [facility] [id number] [address] [place] [address] Apr, Dyspareunia N94.1 [facility] [address] [facility] [id number] [address] [place] [address] Apr, [facility] [address] [facility] [id number] [address] [place] [address] Apr, [facility] [address] [facility] [id number] [address] [place] [address] Apr, Osteoarthritis of knees, natan ateral M17.0 [facility] [address] [facility] [id number] [address] [place] [address] Apr, Diabetes E11.9 and CAD ([place] n[place] artery disease) I25.10 [facility] [address] [facility] [id number] [address] [place] [address] Mar, [facility] [address] [facility] [id number] [address] [place] [id number] Feb, [facility] [address] [facility] [id number] [address] [place] [address] Jan, [facility] [address] [facility] [id number] [address] [place] [address] Jan, [facility] [address] [facility] [id number] [address] [place] [address] Jan, [facility] [address] [facility] [id number] [address] [place] [address] Jan, Osteoarthritis of knees, natan ateral M17.0 [facility] [address] [id number] [address] [place] [address] 30 Dec, 2014 [facility] [address] [id number] [address] [place] [address] Dec, [facility] [address] [id number] [address] [place] [address] Dec, [facility] [address] [id number] [address] [place] [id number] 08 Dec, 2014 Diabetes mellitus 250.00 and UTI (urinary tract infection) 599.0 [facility] [address] [id number] [address] [place] [address] Dec, [facility] [address] [id number] [address] [place] [address] Nov, [facility] [address] [id number] [address] [place] [phone] Oct, [facility] [address] [id number] [address] [place] [phone] Oct, [facility] [address] [id number] [address] [place] [address] Oct, [facility] [address] [id number] [address] [place] [address] Oct, [facility] [address] [id number] [address] [place] [phone] Oct, [facility] [address] [id number] [address] [place] [id number] Sep, [facility] [address] [id number] [address] [place] [id number] August, [facility] [address] [id number] [address] [place] [phone] August, [facility] [address] [id number] [address] [place] [phone] August, [facility] [address] [id number] [address] [place] [address], [place] [address] Jul, [facility] [address] [id number] [address] [place] [address], [place] [address] Jul, [facility] [address] [id number] [address] [place] [address], [place] [address] Jul, [facility] [address] [id number] [address] [place] [address], [place] [address] Jun, [facility] [address] [id number] [address] [place] [address], [place] [address] Jun, [facility] [address] [id number] [address] [place] [address], [place] [address] Jun, [facility] [address] [id number] [address] [place] [address], [place] [address] Jun, [facility] [address] [id number] [address] [place] [address], [place] [address] Jun, [facility] [address] [id number] [address] [place] [address], [place] [address] Jun, [facility] [address] [id number] [address] [place] [address], [place] [address] Jun, [facility] [address] [id number] [address] [place] [address], [place] [address] Jun, [facility] [address] [id number] [address] [place] [address], [place] [address] May, [facility] [address] [id number] [address] [place] [address], [place] [address] May, [facility] [address] [id number] [address] [place] [address], [place] [address] May, [facility] [address] [id number] [address] [place] [address], [place] [address] May, [facility] [address] [id number] [address] [place] [address], [place] [address] May, 2014 [facility] [address] [id number] [address] [place] [address], [place] [address] May, 2014 [facility] [address] [id number] [address] [place] [address], [place] [address] May, 2014 [facility] [address] [id number] [address] [place] [address], [place] [address] May, 2014 [facility] [address] [id number] [address] [place] [address], [place] [address] May, 2014 [facility] [address] [id number] [address] [place] [address], [place] [address] May, 2014 [facility] [address] [id number] [address] [place] [address], [place] [address] May, 2014 [facility] [address] [id number] [address] [place] [address], [place] [address] May, [facility] [address] [id number] [address] [place] [address], [place] [address] Apr, [facility] [address] [id number] [address] [place] [address], [place] [address] Apr, [facility] [address] [id number] [address] [place] [address], [place] [address] Mar, [facility] [address] [id number] [address] [place] [address], [place] [address] Mar, [facility] [address] [id number] [address] [place] [address], [place] [address] Mar, [facility] [address] [id number] [address] [place] [address], [place] [address] Mar, [facility] [address] [id number] [address] [place] [address], [place] [address] Mar, [facility] [address] [id number] [address] [place] [address], [place] [address] 16 Mar, 2014 [facility] [address] [id number] [address] [place] [address], [place] [address] Feb, [facility] [address] [id number] [address] [place] [address], [place] [address] Feb, [facility] [address] [id number] [address] [place] [address], [place] [address] Feb, [facility] [address] [id number] [address] [place] [address], [place] [address] Feb, [facility] [address] [id number] [address] [place] [address], [place] [address] Feb, [facility] [address] [id number] [address] [place] [address], [place] [address] Feb, [facility] [address] [id number] [address] [place] [address], [place] [address] Feb, [facility] [address] [id number] [address] [place] [address], [place] [address] Feb, [facility] [address] [id number] [address] [place] [address], [place] [address] Feb, [facility] [address] [id number] [address] [place] [address], [place] [address] Jan, [facility] [address] [id number] [address] [place] [address], [place] [address] Jan, [facility] [address] [id number] [address] [place] [address], [place] [address] Jan, [facility] [address] [id number] [address] [place] [address], [place] [address] Jan, [facility] [address] [id number] [address] [place] [address], [place] [address] Jan, [facility] [address] [id number] [address] [place] [address], [place] [address] Jan, [facility] [address] [id number] [place] [address] 17 Jan, 2014 [facility] [address] [id number] [address] [place] [address], [place] [address] 17 Jan, 2014 [facility] [address] [id number] [address] [place] [address], [place] [address] Jan, [facility] [address] [id number] [address] [place] [address], [place] [address] Jan, [facility] [address] [id number] [address] [place] [address], [place] [address] Dec, [facility] [address] [id number] [address] [place] [address], [place] [address] Dec, [facility] [address] [id number] [address] [place] [address], [place] [address] Dec, [facility] [address] [id number] [address] [place] [address], [place] [address] Dec, [facility] [address] [id number] [address] [place] [address], [place] [address] Nov, [facility] [address] [id number] [address] [place] [address], [place] [address] Nov, [facility] [address] [id number] [address] [place] [address], [place] [address] Nov, [facility] [address] [id number] [address] [place] [address], [place] [address] Nov, [facility] [address] [id number] [address] [place] [address], [place] [address] Nov, [facility] [address] [id number] [address] [place] [address], [place] [id number] Nov, [facility] [address] [id number] [address] [place] [address], [place] [address] Nov, [facility] [address] [id number] [address] [place] [address], [place] [address] Nov, [facility] [address] [id number] [facility] [address] Nov, [facility] [address] [id number] [address] [place] [address], [place] [address] Oct, [facility] [address] [id number] [facility] [address] Oct, [facility] [address] [id number] [address] [place] [address], [place] [address] Sep, [facility] [address] [id number] [address] [place] [address], [place] [address] Sep, [facility] [address] [id number] [address] [place] [address], [place] [address] Sep, [facility] [address] [id number] [address] [place] [address], [place] [address] Sep, [facility] [address] [id number] [address] [place] [address], [place] [address] Sep, [facility] [address] [id number] [address] [place] [address], [place] [address] Sep, [facility] [address] [id number] [address] [place] [address], [place] [address] Sep, [facility] [address] [id number] [address] [place] [address], [place] [address] Sep, [facility] [address] [id number] [address] [place] [address], [place] [address] Sep, [facility] [address] [id number] [address] [place] [address], [place] [address] Sep, [facility] [address] [id number] [address] [place] [address], [place] [address] Sep, [facility] [address] [id number] [address] [place] [address], [place] [address] Sep, [facility] [address] [id number] [address] [place] [address], [place] [address] Sep, [facility] [address] [id number] [address] [place] [address], [place] [address] Sep, [facility] [address] [id number] [address] [place] [address], [place] [address] August, [facility] [address] [id number] [address] [place] [address], [place] [address] August, [facility] [address] [id number] [address] [place] [address], [place] [address] August, [facility] [address] [id number] [address] [place] [address], [place] [address] August, [facility] [address] [id number] [address] [place] [address], [place] [address] Jul, [facility] [address] [id number] [address] [place] [address], [place] [address] Jul, [facility] [address] [id number] [address] [place] [address], [place] [address] Jul, [facility] [address] [id number] [address] [place] [address], [place] [address] Jul, [facility] [address] [id number] [address] [place] [address], [place] [address] Jun, [facility] [address] [id number] [address] [place] [address], [place] [address] Jun, [facility] [address] [id number] [address] [place] [address], [place] [address] May, [facility] [address] [id number] [address] [place] [address], [place] [address] May, [facility] [address] [id number] [address] [place] [address], [place] [address] May, [facility] [address] [id number] [address] [place] [address], [place] [address] May, [facility] [address] [id number] [address] [place] [address], [place] [address] May, [facility] [address] [id number] [address] [place] [address], [place] [address] May, [facility] [address] [id number] [address] [place] [address], [place] [address] May, [facility] [address] [id number] [address] [place] [address], [place] [address] May, [facility] [address] [id number] [address] [place] [address], [place] [address] May, [facility] [address] [id number] [address] [place] [address], [place] [address] Apr, [facility] [address] [id number] [address] [place] [address], [place] [address] Apr, [facility] [address] [id number] [address] [place] [address], [place] [address] Apr, [facility] [address] [id number] [address] [place] [address], [place] [address] Apr, [facility] [address] [id number] [address] [place] [address], [place] [address] Apr, [facility] [address] [id number] [address] [place] [address], [place] [address] Mar, [facility] [address] [id number] [address] [place] [address], [place] [address] Mar, [facility] [address] [id number] [address] [place] [address], [place] [address] Feb, [facility] [address] [id number] [address] [place] [address], [place] [address] Feb, [facility] [address] [id number] [address] [place] [address], [place] [address] Feb, [facility] [address] [id number] [address] [place] [address], [place] [address] Feb, [facility] [address] [id number] [address] [place] [address], [place] [address] Feb, [facility] [address] [id number] [address] [place] [address], [place] [address] Feb, [facility] [address] [id number] [address] [place] [address], [place] [address] Feb, [facility] [address] [id number] [address] [place] [address], [place] [address] Feb, [facility] [address] [id number] [address] [place] [address], [place] [address] Feb, [facility] [address] [id number] [address] [place] [address], [place] [address] Jan, [facility] [address] [id number] [address] [place] [address], [place] [address] Jan, [facility] [address] [id number] [address] [place] [address], [place] [address] Jan, [facility] [address] [id number] [address] [place] [address], [place] [address] Jan, [facility] [address] [id number] [address] [place] [address], [place] [address] Jan, [facility] [address] [id number] [address] [place] [address], [place] [address] Dec, [facility] [address] [id number] [address] [place] [address], [place] [address] Dec, [facility] [address] [id number] [address] [place] [address], [place] [address] Nov, [facility] [address] [id number] [address] [place] [address], [place] [address] Nov, [facility] [address] [id number] [address] [place] [address], [place] [address] Oct, [facility] [address] [id number] [address] [place] [address], [place] [address] Oct, [facility] [address] [id number] [address] [place] [address], [place] [address] Oct, [facility] [address] [id number] [address] [place] [address], [place] [address] Sep, [facility] [address] [id number] [address] [place] [address], [place] [address] Sep, [facility] [address] [id number] [address] [place] [address], [place] [address] Sep, [facility] [address] [id number] [address] [place] [address], [place] [address] August, [facility] [address] [id number] [address] [place] [address], [place] [address] August, [facility] [address] [id number] [address] [place] [address], [place] [address] August, [facility] [address] [id number] [address] [place] [address], [place] [address] August, [facility] [address] [id number] [address] [place] [address], [place] [address] Jul, [facility] [address] [id number] [address] [place] [address], [place] [address] Jun, [facility] [address] [id number] [address] [place] [address], [place] [address] Jun, [facility] [address] [id number] [address] [place] [address], [place] [address] 05 Jun, 2012 [facility] [address] [id number] [address] [place] [address], [place] [address] May, [facility] [address] [id number] [address] [place] [address], [place] [address] May, [facility] [address] [id number] [address] [place] [address], [place] [address] 04 May, 2012 [facility] [address] [id number] [address] [place] [address], [place] [address] May, [facility] [address] [id number] [address] [place] [address], [place] [address] Apr, [facility] [address] [id number] [address] [place] [address], [place] [address] Apr, [facility] [address] [id number] [address] [place] [address], [place] [address] Apr, [facility] [address] [id number] [address] [place] [address], [place] [address] Apr, [facility] [address] [id number] [address] [place] [address], [place] [address] Apr, [facility] [address] [id number] [address] [place] [address], [place] [address] Mar, [facility] [address] [id number] [address] [place] [address], [place] [address] Mar, [facility] [address] [id number] [address] [place] [address], [place] [address] Mar, [facility] [address] [id number] [address] [place] [address], [place] [address] Mar, [facility] [address] [id number] [address] [place] [address], [place] [address] Mar, [facility] [address] [id number] [address] [place] [address], [place] [address] Mar, [facility] [address] [id number] [address] [place] [address], [place] [address] Mar, [facility] [address] [id number] [address] [place] [address], [place] [address] Feb, [facility] [address] [id number] [address] [place] [address], [place] [address] Feb, [facility] [address] [id number] [address] [place] [address], [place] [address] Feb, [facility] [address] [id number] [address] [place] [address], [place] [address] Feb, [facility] [address] [id number] [address] [place] [address], [place] [address] Feb, [facility] [address] [id number] [address] [place] [address], [place] [address] Feb, [facility] [address] [id number] [address] [place] [address], [place] [address] Feb, [facility] [address] [id number] [address] [place] [address], [place] [address] Feb, [facility] [address] [id number] [address] [place] [address], [place] [address] Jan, [facility] [address] [id number] [address] [place] [address], [place] [address] Jan, [facility] [address] [id number] [address] [place] [address], [place] [address] Jan, [facility] [address] [id number] [address] [place] [address], [place] [address] Jan, [facility] [address] [id number] [address] [place] [address], [place] [address] 27 Dec, 2011 [facility] [address] [id number] [address] [place] [address], [place] [address] 25 Sep2011 [facility] [address] [id number] [address] [place] [address], [place] [address] 18 Sep2011 [facility] [address] [id number] [address] [place] [address] [address] 13 Sep2011 [facility] [address] [id number] [address] [place] [address], [place] [address] 11 Sep2011 [facility] [address] [id number] [address] [place] [address], [place] [address] Oct, [facility] [address] [id number] [address] [place] [address], [place] [address] Oct, [facility] [address] [id number] [address] [place] [address], [place] [address] Sep, [facility] [address] [id number] [address] [place] [address], [place] [address] Sep, [facility] [address] [id number] [address] [place] [address], [place] [address] August, [facility] [address] [id number] [address] [place] [address], [place] [address] August, [facility] [address] [id number] [address] [place] [address], [place] [address] Jul, [facility] [address] [id number] [address] [place] [address], [place] [address] Jun, [facility] [address] [id number] [address] [place] [address], [place] [address] Jun, [facility] [address] [id number] [address] [place] [address], [place] [address] Jun, [facility] [address] [id number] [address] [place] [address], [place] [address] Jun, [facility] [address] [id number] [address] [place] [address], [place] [address] Jun, [facility] [address] [id number] [address] [place] [address], [place] [address] May, [facility] [address] [id number] [address] [place] [address], [place] [address] May, [facility] [address] [id number] [address] [place] [address], [place] [address] 20 May, 2011 [facility] [address] [id number] [address] [place] [address], [place] [address] 14 May, 2011 [facility] [address] [id number] [address] [place] [address], [place] [address] 13 May, 2011 [facility] [address] [id number] [address] [place] [address], [place] [address] 03 May, 2011 [facility] [address] [id number] [address] [place] [address], [place] [address] 02 May, 2011 [facility] [address] [id number] [address] [place] [address], [place] [address] May, [facility] [address] [id number] [address] [place] [address], [place] [address] Apr, [facility] [address] [id number] [address] [place] [address], [place] [address] Mar, [facility] [address] [id number] [address] [place] [address], [place] [address] Mar, [facility] [address] [id number] [address] [place] [address], [place] [address] Mar, [facility] [address] [id number] [address] [place] [address], [place] [address] 15 Mar, 2011 [facility] [address] [id number] [address] [place] [address], [place] [address] Mar, [facility] [address] [id number] [address] [place] [address], [place] [address] 17 Jan, 2011 [facility] [address] [id number] [address] [place] [address], [place] [address] Jan, [facility] [address] [id number] [address] [place] [address], [place] [address] Jan, [facility] [address] [id number] [address] [place] [address], [place] [address] August, [facility] [address] [id number] [address] [place] [address], [place] [address] 13 Mar, 2010 [facility] [address] [id number] [address] [address] Feb, [facility] [address] [facility] [id number] [address] [place] [address] Jan, [facility] [address] [facility] [id number] [address] [place] [address] Jan, IMMUNIZATIONS No Known Immunizations SOCIAL HISTORY [...]
--- OUTSIDE RECORDS SUMMARY | 2019-11-12 16:21 | XMS REPORT ---
Author Author Talia HUDSON Organization [facility] Address [address] [place] [address] Care Team Providers Care Sole Trimmer Name Role Phone KATIE HUDSON Unavailable PROBLEMS Type Condition ICD9-CM Code [id number] Code Onset Dates Condition S tatus SNOMED Code Problem Diabetes E11.9 Active [id number] Problem Arthritis M19.90 Active 0130083 Problem Morbid obesity E66.01 Active 72325 6002 Problem Venous insufficiency I87.2 Active 62337829 Problem CAD (coronary artery disease) I25.10 Active 40313925 Problem Other chronic pain G89.29 Active 8 0897725 Problem Hyperlipemia E78.5 Active 3247781 4 Problem Osteoarthritis of knees, bilateral M17.0 Active 118910156 Problem Essential hypertension I10 Active 75411310 Problem Type 2 diabetes mellitus wit h other specified complication, without long-term current use of insulin E11.69 Active 52943693 ALLERGIES No Information ENCOUNTERS Encounter Location Date Diagnosis [place] [address] [address] [facility] [id number] [address] [place] [address] Oct, Type 2 diabetes mellitus wit h other specified complication, without long-term current use of insulin E11.69 ; Venous insufficiency I87.2 ; Low back pain M54.5 and Other chronic pain G89.29 [place] [address] [facility] [id number] [address] [place] [address] Oct, [facility] [address] [facility] [id number] [address] [place] [phone] Sep, [place] [address] [address] [facility] [id number] [address] [place] [phone] August, [facility] [address] [facility] [id number] [address] [place] [address] August, [facility] [address] [id number] [address] [place] [address], [place] [address] August, [facility] [address] [id number] [address] [place] [address], [place] [address] August, [facility] [address] [id number] [address] [place] [address], [place] [address] August, [facility] [address] [id number] [address] [place] [phone] August, [facility] [address] [id number] [address] [place] [address], [place] [address] August, [facility] [address] [id number] [address] [place] [address] August, Diabetes E11.9 [facility] [address] [id number] [address] [place] [address] August, [facility] [address] [id number] [address] [place] [address] August, [facility] [address] [id number] [address] [place] [address] August, [facility] [address] [id number] [address] [place] [id number] Jul, [facility] [address] [id number] [address] [place] [id number] Jul, [facility] [address] [id number] [address] [place] [id number] 15 Jul, 2019 [facility] [address] [id number] [address] [place] [id number] 10 Jul, 2019 [facility] [address] [id number] [address] [place] [phone] 16 Jun, 2019 [facility] [address] [id number] [address] [place] [phone] 16 Jun, 2019 [facility] [address] [id number] [address] [place] [address] Jun, Diabetes E11.9 ; Skin infect ion L08.9 and Essential hypertension I10 [facility] [address] [address] May, [facility] [address] [facility] [id number] [address] [place] [address] May, [facility] [address] [address] May, [facility] [address] [place] [id number] [place] [address] Apr, [facility] [address] [address] Mar, [facility] [address] [address] Mar, [facility] [address] [address] Feb, [facility] [address] [address] Nov, [facility] [address] [address] Nov, Diabetes E11.9 and Syncope, unspecified syncope type R55 [place] [address] [address] Nov, Osteoarthritis of knees, natan ateral M17.0 [facility] [address] [place] [id number] [address] [place] [address] Oct, Diabetes E11.9 ; CAD (guardado ry artery disease) I25.10 ; Essential hypertension I10 and Hyperlipemia E78.5 [facility] [address] [place] [id number] [address] [place] [address] Sep, [facility] [address] [place] [id number] [place] [address] Jul, [facility] [address] [facility] [id number] [address] [place] [address] Apr, [facility] [address] [address] Mar, Pustular lesion L08.9 and En counter for immunization Z23 [facility] [address] [place] [id number] [place] [address] Feb, [facility] [address] [place] [id number] [place] [address] Dec, [facility] [address] [place] [id number] [place] [address] Dec, [facility] [address] [address] Dec, Diabetes E11.9 ; Essential h ypertension I10 ; Arthritis M19.90 ; Urinary frequency R35.0 ; Routine adult health maintenance Z00.00 and BMI 45.0- 49.9, adult Z68.42 [facility] [address] [address] Dec, [facility] [address] [address] Dec, [facility] [address] [address] Oct, [facility] [address] [place] [id number] [place] [address] Sep, Diabetes E11.9 [facility] [address] [place] [id number] [address] [place] [address] Sep, Diabetes E11.9 ; Hyperlipemi a E78.5 ; CAD (coronary artery disease) I25.10 ; Essential hypertension I10 and BMI 45.0-49.9, adult Z68.42 [facility] [address] [place] [id number] [address] [place] [address] Sep, [place] [address] [facility] [id number] [address] [place] [id number] August, [facility] [address] [facility] [id number] [address] [place] [id number] Jan, Dysuria R30.0 [place] [address] [place] [id number] [address] [place] [address] Jan, Dysuria R30.0 [facility] [address] [place] [id number] [address] [place] [address] Jan, Osteoarthritis of knees, natan ateral M17.0 [place] [address] [place] [id number] [address] [place] [address] Nov, Dysuria R30.0 [place] [address] [address] [facility] [id number] [address] [place] [address] Oct, Blood in urine R31.9 ; Dysur ia R30.0 ; Pharyngeal dysphagia R13.13 ; Acute cystitis with hematuria N30.01 ; CAD (coronary artery disease) I25.10 and Diabetes E11.9 [place] [address] [address] [facility] [id number] [address] [place] [address] Oct, [place] [address] [address] [facility] [id number] [address] [place] [address] Sep, Arthritis M19.90 ; Blood in urine R31.9 ; Diabetes E11.9 ; Acute cystitis with hematuria N30.01 and Pharyngoesophageal dysphagia R13.14 [facility] [address] [facility] [id number] [address] [place] [id number] 29 Sep, 2016 Osteoarthritis of knees, natan ateral M17.0 [place] [address] [place] [id number] [address] [place] [id number] Sep, Osteoarthritis of knees, natan ateral M17.0 [place] [address] [place] [id number] [address] [place] [address] August, Arthritis M19.90 [place] [address] [id number] [address] [place] [address] Jul, Arthritis M19.90 [facility] [address] [id number] [address] [place] [address] Jun, Arthritis M19.90 [facility] [address] [id number] [address] [place] [address] Jun, [facility] [address] [id number] [address] [place] [address] Jun, [facility] [address] [id number] [address] [place] [address] May, Diabetes E11.9 ; Dysuria R30 .0 and Arthritis M19.90 [facility] [address] [id number] [address] [place] [address] Apr, [facility] [address] [id number] [address] [place] [address] Apr, Arthritis M19.90 [facility] [address] [id number] [address] [place] [address] Mar, Arthritis M19.90 [facility] [address] [id number] [address] [place] [address] Feb, [facility] [address] [id number] [address] [place] [address] Jan, [facility] [address] [id number] [address] [place] [address] Dec, Diabetes E11.9 and Arthritis M19.90 [facility] [address] [id number] [address] [place] [address] Dec, [facility] [address] [facility] [id number] [address] [place] [address] Nov, Arthritis M19.90 [facility] [address] [id number] [address] [place] [address] Nov, [facility] [address] [facility] [id number] [address] [place] [address] Oct, Arthritis M19.90 [facility] [address] [facility] [id number] [address] [place] [id number] Sep, Osteoarthritis of knees, natan ateral M17.0 [facility] [address] [facility] [id number] [address] [place] [id number] Sep, Osteoarthritis of knees, natan ateral M17.0 [place] [address] [address] [facility] [id number] [address] [place] [address] August, Arthritis M19.90 [place] [address] [facility] [id number] [address] [place] [address] August, [place] [address] [address] [facility] [id number] [address] [place] [id number] Jul, Hyperlipemia E78.5 [place] [address] [place] [id number] [address] [place] [address] Jul, Encounter for well woman exa m Z01.419 ; Morbid obesity E66.01 ; Encounter for screening for malignant neoplasm of cervix Z12.4 and Encounter for screening mammogram for breast cancer Z12.31 [place] [address] [place] [id number] [address] [place] [address] Jul, Arthritis M19.90 ; Diabetes E11.9 ; Blood in urine R31.9 and UTI (urinary tract infection) N39.0 [place] [address] [facility] [id number] [address] [place] [address] Jul, [place] [address] [facility] [id number] [address] [place] [address] Jun, Arthritis M19.90 [place] [address] [facility] [id number] [address] [place] [address] May, Arthritis M19.90 [place] [address] [address] [facility] [id number] [address] [place] [address] May, [facility] [address] [id number] [address] [place] [address] Apr, [facility] [address] [facility] [id number] [address] [place] [address] Apr, Arthritis M19.90 ; Diabetes E11.9 and Morbid obesity E66.01 [facility] [address] [facility] [id number] [address] [place] [address] Apr, [facility] [address] [facility] [id number] [address] [place] [address] Apr, Dyspareunia N94.1 [facility] [address] [facility] [id number] [address] [place] [phone] Apr, [facility] [address] [facility] [id number] [address] [place] [id number] Apr, [facility] [address] [facility] [id number] [address] [place] [id number] Apr, Osteoarthritis of knees, natan ateral M17.0 [facility] [address] [facility] [id number] [address] [place] [id number] Apr, Diabetes E11.9 and CAD (elysia nary artery disease) I25.10 [facility] [address] [facility] [id number] [address] [place] [phone] Mar, [facility] [address] [facility] [id number] [address] [place] [id number] Feb, [facility] [address] [facility] [id number] [address] [place] [id number] Jan, [facility] [address] [facility] [id number] [address] [place] [id number] Jan, [facility] [address] [facility] [id number] [address] [place] [phone] Jan, [facility] [address] [facility] [id number] [address] [place] [id number] Jan, Osteoarthritis of knees, natan ateral M17.0 [facility] [address] [id number] [address] [place] [id number] 30 Dec, 2014 [facility] [address] [id number] [address] [place] [id number] Dec, [facility] [address] [id number] [address] [place] [id number] Dec, [facility] [address] [id number] [address] [place] [id number] 08 Dec, 2014 Diabetes mellitus 250.00 and UTI (urinary tract infection) 599.0 [facility] [address] [id number] [address] [place] [id number] Dec, [facility] [address] [id number] [address] [place] [address] Nov, [facility] [address] [id number] [address] [place] [address] Oct, [facility] [address] [id number] [address] [place] [address] Oct, [facility] [address] [id number] [address] [place] [address] Oct, [facility] [address] [id number] [address] [place] [address] Oct, [facility] [address] [id number] [address] [place] [id number] Oct, [facility] [address] [id number] [address] [place] [id number] Sep, [facility] [address] [id number] [address] [place] [phone] August, [facility] [address] [id number] [address] [place] [address] August, [facility] [address] [id number] [address] [place] [phone] August, [facility] [address] [id number] [address] [place] [address], [place] [address] Jul, [facility] [address] [id number] [address] [place] [address], [place] [address] Jul, [facility] [address] [id number] [address] [place] [address], [place] [address] Jul, [facility] [address] [id number] [address] [place] [address], [place] [address] Jun, [facility] [address] [id number] [address] [place] [address], [place] [address] Jun, [facility] [address] [id number] [address] [place] [address], [place] [address] Jun, [facility] [address] [id number] [address] [place] [address], [place] [address] Jun, [facility] [address] [id number] [address] [place] [address], [place] [address] Jun, [facility] [address] [id number] [address] [place] [address], [place] [address] Jun, [facility] [address] [id number] [address] [place] [address], [place] [address] Jun, [facility] [address] [id number] [address] [place] [address], [place] [address] Jun, [facility] [address] [id number] [address] [place] [address], [place] [address] May, [facility] [address] [id number] [address] [place] [address], [place] [address] May, [facility] [address] [id number] [address] [place] [address], [place] [address] May, [facility] [address] [id number] [address] [place] [address], [place] [address] May, [facility] [address] [id number] [address] [place] [address], [place] [address] May, 2014 [facility] [address] [id number] [address] [place] [address], [place] [address] May, 2014 [facility] [address] [id number] [address] [place] [address], [place] [address] May, 2014 [facility] [address] [id number] [address] [place] [address], [place] [address] May, 2014 [facility] [address] [id number] [address] [place] [address], [place] [address] May, 2014 [facility] [address] [id number] [address] [place] [address], [place] [address] May, 2014 [facility] [address] [id number] [address] [place] [address], [place] [address] May, 2014 [facility] [address] [id number] [address] [place] [address], [place] [address] May, [facility] [address] [id number] [address] [place] [address], [place] [address] Apr, [facility] [address] [id number] [address] [place] [address], [place] [address] Apr, [facility] [address] [id number] [address] [place] [address], [place] [address] Mar, [facility] [address] [id number] [address] [place] [address], [place] [address] Mar, [facility] [address] [id number] [address] [place] [address], [place] [address] Mar, [facility] [address] [id number] [address] [place] [address], [place] [address] Mar, [facility] [address] [id number] [address] [place] [address], [place] [address] Mar, [facility] [address] [id number] [address] [place] [address], [place] [address] 16 Mar, 2014 [facility] [address] [id number] [address] [place] [address], [place] [address] Feb, [facility] [address] [id number] [address] [place] [address], [place] [address] Feb, [facility] [address] [id number] [address] [place] [address], [place] [address] Feb, [facility] [address] [id number] [address] [place] [address], [place] [address] Feb, [facility] [address] [id number] [address] [place] [address], [place] [address] Feb, [facility] [address] [id number] [address] [place] [address], [place] [address] Feb, [facility] [address] [id number] [address] [place] [address], [place] [address] Feb, [facility] [address] [id number] [address] [place] [address], [place] [address] Feb, [facility] [address] [id number] [address] [place] [address], [place] [address] Feb, [facility] [address] [id number] [address] [place] [address], [place] [address] Jan, [facility] [address] [id number] [address] [place] [address], [place] [address] Jan, [facility] [address] [id number] [address] [place] [address], [place] [address] Jan, [facility] [address] [id number] [address] [place] [address], [place] [address] Jan, [facility] [address] [id number] [address] [place] [address], [place] [address] Jan, [facility] [address] [id number] [address] [place] [address], [place] [address] Jan, [facility] [address] [id number] [facility] [place] [address] 17 Jan, 2014 [facility] [address] [id number] [address] [place] [address], [place] [address] 17 Jan, 2014 [facility] [address] [id number] [address] [place] [address], [place] [address] Jan, [facility] [address] [id number] [address] [place] [address], [place] [address] Jan, [facility] [address] [id number] [address] [place] [address], [place] [address] Dec, [facility] [address] [id number] [address] [place] [address], [place] [address] Dec, [facility] [address] [id number] [address] [place] [address], [place] [address] Dec, [facility] [address] [id number] [address] [place] [address], [place] [address] Dec, [facility] [address] [id number] [address] [place] [address], [place] [address] Nov, [facility] [address] [id number] [address] [place] [address], [place] [address] Nov, [facility] [address] [id number] [address] [place] [address], [place] [address] Nov, [facility] [address] [id number] [address] [place] [address], [place] [address] Nov, [facility] [address] [id number] [address] [place] [address], [place] [address] Nov, [facility] [address] [id number] [address] [place] [address], [place] [address] Nov, [facility] [address] [id number] [address] [place] [address], [place] [address] Nov, [facility] [address] [id number] [address] [place] [address], [place] [address] Nov, [facility] [address] [id number] [facility] [place] [address] Nov, [facility] [address] [id number] [address] [place] [address], [place] [address] Oct, [facility] [address] [id number] [facility] [place] [address] Oct, [facility] [address] [id number] [address] [place] [address], [place] [address] Sep, [facility] [address] [id number] [address] [place] [address], [place] [address] Sep, [facility] [address] [id number] [address] [place] [address], [place] [address] Sep, [facility] [address] [id number] [address] [place] [address], [place] [address] Sep, [facility] [address] [id number] [address] [place] [address], [place] [address] Sep, [facility] [address] [id number] [address] [place] [address], [place] [address] Sep, [facility] [address] [id number] [address] [place] [address], [place] [address] Sep, [facility] [address] [id number] [address] [place] [address], [place] [address] Sep, [facility] [address] [id number] [address] [place] [address], [place] [address] Sep, [facility] [address] [id number] [address] [place] [address], [place] [address] Sep, [facility] [address] [id number] [address] [place] [address], [place] [address] Sep, [facility] [address] [id number] [address] [place] [address], [place] [address] Sep, [facility] [address] [id number] [address] [place] [address], [place] [address] Sep, [facility] [address] [id number] [address] [place] [address], [place] [address] Sep, [facility] [address] [id number] [address] [place] [address], [place] [address] August, [facility] [address] [id number] [address] [place] [address], [place] [address] August, [facility] [address] [id number] [address] [place] [address], [place] [address] August, [facility] [address] [id number] [address] [place] [address], [place] [address] August, [facility] [address] [id number] [address] [place] [address], [place] [address] Jul, [facility] [address] [id number] [address] [place] [address], [place] [address] Jul, [facility] [address] [id number] [address] [place] [address], [place] [address] Jul, [facility] [address] [id number] [address] [place] [address], [place] [address] Jul, [facility] [address] [id number] [address] [place] [address], [place] [address] Jun, [facility] [address] [id number] [address] [place] [address], [place] [address] Jun, [facility] [address] [id number] [address] [place] [address], [place] [address] May, [facility] [address] [id number] [address] [place] [address], [place] [address] May, [facility] [address] [id number] [address] [place] [address], [place] [address] May, [facility] [address] [id number] [address] [place] [address], [place] [address] May, [facility] [address] [id number] [address] [place] [address], [place] [address] May, [facility] [address] [id number] [address] [place] [address], [place] [address] May, [facility] [address] [id number] [address] [place] [address], [place] [address] May, [facility] [address] [id number] [address] [place] [address], [place] [address] May, [facility] [address] [id number] [address] [place] [address], [place] [address] May, [facility] [address] [id number] [address] [place] [address], [place] [address] Apr, [facility] [address] [id number] [address] [place] [address], [place] [address] Apr, [facility] [address] [id number] [address] [place] [address], [place] [address] Apr, [facility] [address] [id number] [address] [place] [address], [place] [address] Apr, [facility] [address] [id number] [address] [place] [address], [place] [address] Apr, [facility] [address] [id number] [address] [place] [address], [place] [address] Mar, [facility] [address] [id number] [address] [place] [address], [place] [address] Mar, [facility] [address] [id number] [address] [place] [address], [place] [address] Feb, [facility] [address] [id number] [address] [place] [address], [place] [address] Feb, [facility] [address] [id number] [address] [place] [address], [place] [address] Feb, [facility] [address] [id number] [address] [place] [address], [place] [address] Feb, [facility] [address] [id number] [address] [place] [address], [place] [address] Feb, [facility] [address] [id number] [address] [place] [address], [place] [address] Feb, [facility] [address] [id number] [address] [place] [address], [place] [address] Feb, [facility] [address] [id number] [address] [place] [address], [place] [address] Feb, [facility] [address] [id number] [address] [place] [address], [place] [address] Feb, [facility] [address] [id number] [address] [place] [address], [place] [address] Jan, [facility] [address] [id number] [address] [place] [address], [place] [address] Jan, [facility] [address] [id number] [address] [place] [address], [place] [address] Jan, [facility] [address] [id number] [address] [place] [address], [place] [address] Jan, [facility] [address] [id number] [address] [place] [address], [place] [address] Jan, [facility] [address] [id number] [address] [place] [address], [place] [address] Dec, [facility] [address] [id number] [address] [place] [address], [place] [address] Dec, [facility] [address] [id number] [address] [place] [address], [place] [address] Nov, [facility] [address] [id number] [address] [place] [address], [place] [address] Nov, [facility] [address] [id number] [address] [place] [address], [place] [address] Oct, [facility] [address] [id number] [address] [place] [address], [place] [address] Oct, [facility] [address] [id number] [address] [place] [address], [place] [address] Oct, [facility] [address] [id number] [address] [place] [address], [place] [address] Sep, [facility] [address] [id number] [address] [place] [address], [place] [address] Sep, [facility] [address] [id number] [address] [place] [address], [place] [address] Sep, [facility] [address] [id number] [address] [place] [address], [place] [address] August, [facility] [address] [id number] [address] [place] [address], [place] [address] August, [facility] [address] [id number] [address] [place] [address], [place] [address] August, [facility] [address] [id number] [address] [place] [address], [place] [address] August, [facility] [address] [id number] [address] [place] [address], [place] [address] Jul, [facility] [address] [id number] [address] [place] [address], [place] [address] Jun, [facility] [address] [id number] [address] [place] [address], [place] [address] Jun, [facility] [address] [id number] [address] [place] [address], [place] [address] 05 Jun, 2012 [facility] [address] [id number] [address] [place] [address], [place] [address] May, [facility] [address] [id number] [address] [place] [address], [place] [address] May, [facility] [address] [id number] [address] [place] [address], [place] [address] 04 May, 2012 [facility] [address] [id number] [address] [place] [address], [place] [address] May, [facility] [address] [id number] [address] [place] [address], [place] [address] Apr, [facility] [address] [id number] [address] [place] [address], [place] [address] Apr, [facility] [address] [id number] [address] [place] [address], [place] [address] Apr, [facility] [address] [id number] [address] [place] [address], [place] [address] Apr, [facility] [address] [id number] [address] [place] [address], [place] [address] Apr, [facility] [address] [id number] [address] [place] [address], [place] [address] Mar, [facility] [address] [id number] [address] [place] [address], [place] [address] Mar, [facility] [address] [id number] [address] [place] [address], [place] [address] Mar, [facility] [address] [id number] [address] [place] [address], [place] [address] Mar, [facility] [address] [id number] [address] [place] [address], [place] [address] Mar, [facility] [address] [id number] [address] [place] [address], [place] [address] Mar, [facility] [address] [id number] [address] [place] [address], [place] [address] Mar, [facility] [address] [id number] [address] [place] [address], [place] [address] Feb, [facility] [address] [id number] [address] [place] [address], [place] [address] Feb, [facility] [address] [id number] [address] [place] [address], [place] [address] Feb, [facility] [address] [id number] [address] [place] [address], [place] [address] Feb, [facility] [address] [id number] [address] [place] [address], [place] [address] Feb, [facility] [address] [id number] [address] [place] [address], [place] [address] Feb, [facility] [address] [id number] [address] [place] [address], [place] [address] Feb, [facility] [address] [id number] [address] [place] [address], [place] [address] Feb, [facility] [address] [id number] [address] [place] [address], [place] [address] Jan, [facility] [address] [id number] [address] [place] [address], [place] [address] Jan, [facility] [address] [id number] [address] [place] [address], [place] [address] Jan, [facility] [address] [id number] [address] [place] [address], [place] [address] Jan, [facility] [address] [id number] [address] [place] [address], [place] [address] 27 Dec, 2011 [facility] [address] [id number] [address] [place] [address], [place] [address] 25 Sep2011 [facility] [address] [id number] [address] [place] [address] [address] 18 Sep2011 [facility] [address] [id number] [address] [place] [address] [address] 13 Sep2011 [facility] [address] [id number] [address] [place] [address] [address] 11 Sep2011 [facility] [address] [id number] [address] [place] [address], [place] [address] Oct, [facility] [address] [id number] [address] [place] [address], [place] [address] Oct, [facility] [address] [id number] [address] [place] [address], [place] [address] Sep, [facility] [address] [id number] [address] [place] [address], [place] [address] Sep, [facility] [address] [id number] [address] [place] [address], [place] [address] August, [facility] [address] [id number] [address] [place] [address], [place] [address] August, [facility] [address] [id number] [address] [place] [address], [place] [address] Jul, [facility] [address] [id number] [address] [place] [address], [place] [address] Jun, [facility] [address] [id number] [address] [place] [address], [place] [address] Jun, [facility] [address] [id number] [address] [place] [address], [place] [address] Jun, [facility] [address] [id number] [address] [place] [address], [place] [address] Jun, [facility] [address] [id number] [address] [place] [address], [place] [address] Jun, [facility] [address] [id number] [address] [place] [address], [place] [address] May, [facility] [address] [id number] [address] [place] [address], [place] [address] May, [facility] [address] [id number] [address] [place] [address], [place] [address] 20 May, 2011 [facility] [address] [id number] [address] [place] [address], [place] [address] 14 May, 2011 [facility] [address] [id number] [address] [place] [address], [place] [address] 13 May, 2011 [facility] [address] [id number] [address] [place] [address], [place] [address] 03 May, 2011 [facility] [address] [id number] [address] [place] [address], [place] [address] 02 May, 2011 [facility] [address] [id number] [address] [place] [address], [place] [address] May, [facility] [address] [id number] [address] [place] [address], [place] [address] Apr, [facility] [address] [id number] [address] [place] [address], [place] [address] Mar, [facility] [address] [id number] [address] [place] [address], [place] [address] Mar, [facility] [address] [id number] [address] [place] [address], [place] [address] Mar, [facility] [address] [id number] [address] [place] [address], [place] [address] 15 Mar, 2011 [facility] [address] [id number] [address] [place] [address], [place] [address] Mar, [facility] [address] [id number] [address] [place] [address], [place] [address] 17 Jan, 2011 [facility] [address] [id number] [address] [place] [address], [place] [address] Jan, [facility] [address] [id number] [address] [place] [address], [place] [address] Jan, [facility] [address] [id number] [address] [place] [address], [place] [address] August, [facility] [address] [id number] [address] [place] [address], [place] [address] 13 Mar, 2010 [facility] [address] [id number] [address] [address] Feb, [facility] [address] [facility] [id number] [address] [place] [address] Jan, [facility] [address] [facility] [id number] [address] [place] [address] Jan, IMMUNIZATIONS No Known Immunizations SOCIAL HISTORY [...]
--- OUTSIDE RECORDS SUMMARY | 2019-11-12 16:21 | XMS REPORT ---
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 Name Role Phone Migration, Doctor Unavailable Unavailable PROBLEMS Type Condition ICD9-CM Code SLZ14-XV Code Onset Dates Condition S tatus SNOMED Code Problem Diabetes E11.9 Active 86315357 Problem Arthritis M19.90 Active 6707305 Problem Morbid obesity E66.01 Active 90727 6002 Problem Venous insufficiency I87.2 Active 94037981 Problem CAD (coronary artery disease) I25.10 Active 11840327 Problem Other chronic pain G89.29 Active 8 7400228 Problem Hyperlipemia E78.5 Active 3366484 4 Problem Osteoarthritis of knees, bilateral M17.0 Active 759339150 Problem Essential hypertension I10 Active 60587412 Problem Type 2 diabetes mellitus wit h other specified complication, without long-term current use of insulin E11.69 Active 92294624 ALLERGIES No Information ENCOUNTERS Encounter Location Date Diagnosis [facility] [address] [facility] [id number] [address] [place] [phone] Oct, Type 2 diabetes mellitus wit h other specified complication, without long-term current use of insulin E11.69 ; Venous insufficiency I87.2 ; Low back pain M54.5 and Other chronic pain G89.29 [facility] [address] [facility] [id number] [address] [place] [phone] Oct, [facility] [address] [facility] [id number] [address] [place] [phone] Sep, [facility] [address] [facility] [id number] [address] [place] [phone] August, [facility] [address] [facility] [id number] [address] [place] [phone] August, [facility] [address] [facility] [id number] [address] [place] [phone] August, [facility] [address] [id number] [address] [place] [phone] August, [facility] [address] [id number] [address] [place] [phone] August, [facility] [address] [id number] [address] [place] [phone] August, [facility] [address] [id number] [address] [place] [phone] August, [facility] [address] [id number] [address] [place] [phone] August, Diabetes E11.9 [facility] [address] [id number] [address] [place] [phone] August, [facility] [address] [id number] [address] [place] [phone] August, [facility] [address] [id number] [address] [place] [phone] August, [facility] [address] [id number] [address] [place] [phone] Jul, [facility] [address] [id number] [address] [place] [phone] Jul, [facility] [address] [id number] [address] [place] [phone] 15 Jul, 2019 [facility] [address] [id number] [address] [place] [phone] Jul, [facility] [address] [id number] [address] [place] [phone] 16 Jun, 2019 [facility] [address] [id number] [address] [place] [phone] Jun, [facility] [address] [id number] [address] [place] [phone] 12 Jun, 2019 Diabetes E11.9 ; Skin infect ion L08.9 and Essential hypertension I10 [facility] [address] [facility] [id number] [address] [place] [phone] May, [facility] [address] [facility] [id number] [address] [place] [phone] May, [facility] [address] [facility] [id number] [address] [place] [phone] May, [facility] [address] [facility] [id number] [address] [place] [phone] Apr, [facility] [address] [facility] [id number] [address] [place] [phone] Mar, [facility] [address] [facility] [id number] [place] [id number] Mar, [facility] [address] [place] [id number] [place] [phone] Feb, [facility] [address] [address] Nov, [facility] [address] [facility] [id number] [address] Nov, Diabetes E11.9 and Syncope, unspecified syncope type R55 [facility] [address] [facility] [id number] [place] [phone] Nov, Osteoarthritis of knees, natan ateral M17.0 [facility] [address] [facility] [id number] [address] [place] [phone] Oct, Diabetes E11.9 ; CAD (guardado ry artery disease) I25.10 ; Essential hypertension I10 and Hyperlipemia E78.5 [facility] [address] [facility] [id number] [address] [place] [phone] Sep, [facility] [address] [facility] [id number] [address] [place] [phone] Jul, [facility] [address] [place] [id number] [address] [place] [address] Apr, [facility] [address] [place] [id number] [address] [place] [address] Mar, Pustular lesion L08.9 and En counter for immunization Z23 [facility] [address] [facility] [id number] [address] [place] [phone] Feb, [facility] [address] [address] Dec, [facility] [address] [place] [id number] [place] [address] Dec, [place] [address] [address] Dec, Diabetes E11.9 ; Essential h ypertension I10 ; Arthritis M19.90 ; Urinary frequency R35.0 ; Routine adult health maintenance Z00.00 and BMI 45.0- 49.9, adult Z68.42 [place] [address] [address] Dec, [facility] [address] [address] Dec, [facility] [address] [place] [id number] [address] [place] [phone] Oct, [facility] [address] [place] [id number] [address] [place] [address] Sep, Diabetes E11.9 [facility] [address] [address] Sep, Diabetes E11.9 ; Hyperlipemi a E78.5 ; CAD (coronary artery disease) I25.10 ; Essential hypertension I10 and BMI 45.0-49.9, adult Z68.42 [facility] [address] [place] [id number] [address] [place] [phone] Sep, [facility] [address] [address] August, [place] [id number] [place] [address] Jan, Dysuria R30.0 [place] [address] [place] [id number] [address] [place] [address] Jan, Dysuria R30.0 [place] [address] [place] [id number] [place] [address] Jan, Osteoarthritis of knees, natan ateral M17.0 [place] [address] [place] [id number] [address] [place] [phone] Nov, Dysuria R30.0 [place] [address] [address] Oct, Blood in urine R31.9 ; Dysur ia R30.0 ; Pharyngeal dysphagia R13.13 ; Acute cystitis with hematuria N30.01 ; CAD (coronary artery disease) I25.10 and Diabetes E11.9 [place] [address] [address] Oct, [place] [address] [address] Sep, Arthritis M19.90 ; Blood in urine R31.9 ; Diabetes E11.9 ; Acute cystitis with hematuria N30.01 and Pharyngoesophageal dysphagia R13.14 [place] [id number] [place] [address] Sep, Osteoarthritis of knees, natan ateral M17.0 [place] [address] [place] [id number] [address] [place] [address] Sep, Osteoarthritis of knees, natan ateral M17.0 [place] [address] [place] [id number] [address] [place] [address] August, Arthritis M19.90 [place] [address] [place] [id number] [place] [address] Jul, Arthritis M19.90 [facility] [address] [id number] [address] [place] [address] Jun, Arthritis M19.90 [facility] [address] [id number] [address] [place] [address] Jun, [facility] [address] [id number] [address] [place] [address] Jun, [facility] [address] [id number] [address] [place] [address] May, Diabetes E11.9 ; Dysuria R30 .0 and Arthritis M19.90 [facility] [address] [id number] [address] [place] [address] Apr, [facility] [address] [id number] [address] [place] [address] Apr, Arthritis M19.90 [facility] [address] [id number] [address] [place] [address] Mar, Arthritis M19.90 [facility] [address] [id number] [address] [place] [phone] Feb, [facility] [address] [id number] [address] [place] [phone] Jan, [facility] [address] [id number] [address] [place] [address] Dec, Diabetes E11.9 and Arthritis M19.90 [facility] [address] [id number] [address] [place] [id number] Dec, [facility] [address] [id number] [address] [place] [address] Nov, Arthritis M19.90 [facility] [address] [id number] [address] [place] [phone] Nov, [facility] [address] [id number] [address] [place] [address] Oct, Arthritis M19.90 [facility] [address] [facility] [id number] [address] [place] [address] Sep, Osteoarthritis of knees, natan ateral M17.0 [facility] [address] [id number] [address] [place] [phone] 09 Sep, 2015 Osteoarthritis of knees, natan ateral M17.0 [facility] [address] [facility] [id number] [address] [place] [address] August, Arthritis M19.90 [facility] [address] [id number] [address] [place] [address] August, [facility] [address] [facility] [id number] [address] [place] [address] Jul, Hyperlipemia E78.5 [facility] [address] [facility] [id number] [address] [place] [address] Jul, Encounter for well woman exa m Z01.419 ; Morbid obesity E66.01 ; Encounter for screening for malignant neoplasm of cervix Z12.4 and Encounter for screening mammogram for breast cancer Z12.31 [place] [address] [facility] [id number] [address] [place] [address] Jul, Arthritis M19.90 ; Diabetes E11.9 ; Blood in urine R31.9 and UTI (urinary tract infection) N39.0 [facility] [address] [facility] [id number] [address] [place] [phone] Jul, [facility] [address] [facility] [id number] [address] [place] [phone] Jun, Arthritis M19.90 [facility] [address] [facility] [id number] [address] [place] [address] May, Arthritis M19.90 [facility] [address] [facility] [id number] [address] [place] [phone] May, [facility] [address] [facility] [id number] [address] [place] [phone] Apr, [facility] [address] [id number] [address] [place] [address] Apr, Arthritis M19.90 ; Diabetes E11.9 and Morbid obesity E66.01 [facility] [address] [id number] [address] [place] [phone] Apr, [facility] [address] [id number] [address] [place] [address] Apr, Dyspareunia N94.1 [facility] [address] [id number] [address] [place] [phone] Apr, [facility] [address] [id number] [address] [place] [phone] 15 Apr, 2015 [facility] [address] [id number] [address] [place] [phone] Apr, Osteoarthritis of knees, natan ateral M17.0 [facility] [address] [id number] [address] [place] [phone] 14 Apr, 2015 Diabetes E11.9 and CAD (elysia nary artery disease) I25.10 [facility] [address] [id number] [address] [place] [phone] 08 Mar, 2015 [facility] [address] [id number] [address] [place] [phone] Feb, [facility] [address] [id number] [address] [place] [phone] 30 Jan, 2015 [facility] [address] [id number] [address] [place] [phone] Jan, [facility] [address] [id number] [address] [place] [phone] Jan, [facility] [address] [id number] [address] [place] [phone] Jan, Osteoarthritis of knees, natan ateral M17.0 [facility] [address] [id number] [address] [place] [address], [place] [address] Dec, [facility] [address] [id number] [address] [place] [phone] Dec, [facility] [address] [id number] [address] [place] [address] Dec, [facility] [address] [id number] [address] [place] [address] Dec, Diabetes mellitus 250.00 and UTI (urinary tract infection) 599.0 [facility] [address] [id number] [address] [place] [address], [place] [address] Dec, [facility] [address] [id number] [address] [place] [phone] Nov, [facility] [address] [id number] [address] [place] [phone] Oct, [facility] [address] [id number] [address] [place] [phone] Oct, [facility] [address] [id number] [address] [place] [phone] Oct, [facility] [address] [id number] [address] [place] [phone] Oct, [facility] [address] [id number] [address] [place] [phone] Oct, [facility] [address] [id number] [address] [place] [phone] Sep, [facility] [address] [id number] [address] [place] [address], [place] [address] August, [facility] [address] [id number] [address] [place] [phone] August, [facility] [address] [id number] [address] [place] [phone] August, [facility] [address] [id number] [address] [place] [address], [place] [address] 29 Jul, 2014 [facility] [address] [id number] [address] [place] [address], [place] [address] 14 Jul, 2014 [facility] [address] [id number] [address] [place] [address], [place] [address] 13 Jul, 2014 [facility] [address] [id number] [address] [place] [address], [place] [address] Jun, [facility] [address] [id number] [address] [place] [address], [place] [address] 24 Jun, 2014 [facility] [address] [id number] [address] [place] [address], [place] [address] Jun, [facility] [address] [id number] [address] [place] [address], [place] [address] Jun, [facility] [address] [id number] [address] [place] [address], [place] [address] 24 Jun, 2014 [facility] [address] [id number] [address] [place] [address], [place] [address] Jun, [facility] [address] [id number] [address] [place] [address], [place] [address] Jun, [facility] [address] [id number] [address] [place] [address], [place] [address] Jun, [facility] [address] [id number] [address] [place] [address], [place] [address] May, [facility] [address] [id number] [address] [place] [address], [place] [address] May, [facility] [address] [id number] [address] [place] [address], [place] [address] May, [facility] [address] [id number] [address] [place] [address], [place] [address] May, [facility] [address] [id number] [address] [place] [address], [place] [address] May, [facility] [address] [id number] [address] [place] [address], [place] [address] May, 2014 [facility] [address] [id number] [address] [place] [address], [place] [address] May, 2014 [facility] [address] [id number] [address] [place] [address], [place] [address] May, 2014 [facility] [address] [id number] [address] [place] [address], [place] [address] May, 2014 [facility] [address] [id number] [address] [place] [address], [place] [address] May, 2014 [facility] [address] [id number] [address] [place] [address], [place] [address] May, 2014 [facility] [address] [id number] [address] [place] [address], [place] [address] May, 2014 [facility] [address] [id number] [address] [place] [address], [place] [address] Apr, [facility] [address] [id number] [address] [place] [address], [place] [address] Apr, [facility] [address] [id number] [address] [place] [address], [place] [address] Mar, [facility] [address] [id number] [address] [place] [address], [place] [address] Mar, [facility] [address] [id number] [address] [place] [address], [place] [address] Mar, [facility] [address] [id number] [address] [place] [address], [place] [address] Mar, [facility] [address] [id number] [address] [place] [address], [place] [address] Mar, [facility] [address] [id number] [address] [place] [address], [place] [address] Mar, [facility] [address] [id number] [address] [place] [address], [place] [address] Feb, [facility] [address] [id number] [address] [place] [address], [place] [address] Feb, [facility] [address] [id number] [address] [place] [address], [place] [address] Feb, [facility] [address] [id number] [address] [place] [address], [place] [address] Feb, [facility] [address] [id number] [address] [place] [address], [place] [address] Feb, [facility] [address] [id number] [address] [place] [address], [place] [address] Feb, [facility] [address] [id number] [address] [place] [address], [place] [address] Feb, [facility] [address] [id number] [address] [place] [address], [place] [address] Feb, [facility] [address] [id number] [address] [place] [address], [place] [id number] Feb, [facility] [address] [id number] [address] [place] [address], [place] [address] Jan, [facility] [address] [id number] [address] [place] [address], [place] [address] Jan, [facility] [address] [id number] [address] [place] [address], [place] [address] Jan, [facility] [address] [id number] [address] [place] [address], [place] [address] Jan, [facility] [address] [id number] [address] [place] [address], [place] [address] Jan, [facility] [address] [id number] [address] [place] [address], [place] [address] Jan, [facility] [address] [id number] [address] [place] [address], [place] [id number] Jan, [facility] [address] [id number] [address] [place] [address], [place] [id number] 17 Jan, 2014 [facility] [address] [id number] [address] [place] [address], [place] [address] Jan, [facility] [address] [id number] [address] [place] [address], [place] [address] Jan, [facility] [address] [id number] [address] [place] [address], [place] [id number] Dec, [facility] [address] [id number] [address] [place] [address], [place] [id number] Dec, [facility] [address] [id number] [address] [place] [address], [place] [address] Dec, [facility] [address] [id number] [address] [place] [address], [place] [address] Dec, [facility] [address] [id number] [address] [place] [address], [place] [address] Nov, [facility] [address] [id number] [address] [place] [address], [place] [id number] Nov, [facility] [address] [id number] [address] [place] [address], [place] [address] Nov, [facility] [address] [id number] [address] [place] [address], [place] [address] Nov, [facility] [address] [id number] [address] [place] [address], [place] [address] Nov, [facility] [address] [id number] [address] [place] [address], [place] [address] Nov, [facility] [address] [id number] [address] [place] [address], [place] [address] Nov, [facility] [address] [id number] [address] [place] [address], [place] [address] Nov, [facility] [address] [id number] [address] [place] [address], [place] [address] Nov, [facility] [address] [id number] [facility] [place] [address] Oct, [facility] [address] [id number] [address] [place] [address], [place] [id number] Oct, [facility] [address] [id number] [address] [place] [address], [place] [address] Sep, [facility] [address] [id number] [address] [place] [address], [place] [address] Sep, [facility] [address] [id number] [address] [place] [address], [place] [address] Sep, [facility] [address] [id number] [address] [place] [address], [place] [id number] Sep, [facility] [address] [id number] [address] [place] [address], [place] [id number] Sep, [facility] [address] [id number] [address] [place] [address], [place] [id number] Sep, [facility] [address] [id number] [address] [place] [address], [place] [id number] Sep, [facility] [address] [id number] [address] [place] [address], [place] [address] Sep, [facility] [address] [id number] [address] [place] [address], [place] [address] Sep, [facility] [address] [id number] [address] [place] [address], [place] [address] Sep, [facility] [address] [id number] [address] [place] [address], [place] [address] Sep, [facility] [address] [id number] [address] [place] [address], [place] [address] Sep, [facility] [address] [id number] [address] [place] [address], [place] [address] Sep, [facility] [address] [id number] [address] [place] [address], [place] [address] Sep, [facility] [address] [id number] [address] [place] [address], [place] [address] August, [facility] [address] [id number] [address] [place] [address], [place] [address] August, [facility] [address] [id number] [address] [place] [address], [place] [address] August, [facility] [address] [id number] [address] [place] [address], [place] [address] August, [facility] [address] [id number] [address] [place] [address], [place] [address] Jul, [facility] [address] [id number] [address] [place] [address], [place] [address] Jul, [facility] [address] [id number] [address] [place] [address], [place] [address] Jul, [facility] [address] [id number] [address] [place] [address], [place] [address] Jul, [facility] [address] [id number] [address] [place] [address], [place] [address] Jun, [facility] [address] [id number] [address] [place] [address], [place] [address] Jun, [facility] [address] [id number] [address] [place] [address], [place] [address] May, [facility] [address] [id number] [address] [place] [address], [place] [address] May, [facility] [address] [id number] [address] [place] [address], [place] [address] May, [facility] [address] [id number] [address] [place] [address], [place] [address] May, [facility] [address] [id number] [address] [place] [address], [place] [address] May, [facility] [address] [id number] [address] [place] [address], [place] [address] May, [facility] [address] [id number] [address] [place] [address], [place] [address] May, [facility] [address] [id number] [address] [place] [address], [place] [address] May, [facility] [address] [id number] [address] [place] [address], [place] [address] May, [facility] [address] [id number] [address] [place] [address], [place] [address] Apr, [facility] [address] [id number] [address] [place] [address], [place] [address] Apr, [facility] [address] [id number] [address] [place] [address], [place] [address] Apr, [facility] [address] [id number] [address] [place] [address], [place] [address] Apr, [facility] [address] [id number] [address] [place] [address], [place] [address] Apr, [facility] [address] [id number] [address] [place] [address], [place] [address] Mar, [facility] [address] [id number] [address] [place] [address], [place] [address] Mar, [facility] [address] [id number] [address] [place] [address], [place] [address] Feb, [facility] [address] [id number] [address] [place] [address], [place] [address] Feb, [facility] [address] [id number] [address] [place] [address], [place] [address] Feb, [facility] [address] [id number] [address] [place] [address], [place] [address] Feb, [facility] [address] [id number] [address] [place] [address], [place] [address] Feb, [facility] [address] [id number] [address] [place] [address], [place] [address] Feb, [facility] [address] [id number] [address] [place] [address], [place] [address] Feb, [facility] [address] [id number] [address] [place] [address], [place] [address] Feb, [facility] [address] [id number] [address] [place] [address], [place] [address] Feb, [facility] [address] [id number] [address] [place] [address], [place] [address] Jan, [facility] [address] [id number] [address] [place] [address], [place] [address] Jan, [facility] [address] [id number] [address] [place] [address], [place] [address] Jan, [facility] [address] [id number] [address] [place] [address], [place] [address] Jan, [facility] [address] [id number] [address] [place] [address], [place] [address] Jan, [facility] [address] [id number] [address] [place] [address], [place] [address] Dec, [facility] [address] [id number] [address] [place] [address], [place] [address] Dec, [facility] [address] [id number] [address] [place] [address], [place] [address] Nov, [facility] [address] [id number] [address] [place] [address], [place] [address] Nov, [facility] [address] [id number] [address] [place] [address], [place] [address] Oct, [facility] [address] [id number] [address] [place] [address], [place] [address] Oct, [facility] [address] [id number] [address] [place] [address], [place] [address] Oct, [facility] [address] [id number] [address] [place] [address], [place] [address] Sep, [facility] [address] [id number] [address] [place] [address], [place] [address] Sep, [facility] [address] [id number] [address] [place] [address], [place] [address] Sep, [facility] [address] [id number] [address] [place] [address], [place] [address] August, [facility] [address] [id number] [address] [place] [address], [place] [address] August, [facility] [address] [id number] [address] [place] [address], [place] [address] August, [facility] [address] [id number] [address] [place] [address], [place] [address] August, [facility] [address] [id number] [address] [place] [address], [place] [address] Jul, [facility] [address] [id number] [address] [place] [address], [place] [address] Jun, [facility] [address] [id number] [address] [place] [address], [place] [address] Jun, [facility] [address] [id number] [address] [place] [address], [place] [address] Jun, [facility] [address] [id number] [address] [place] [address], [place] [address] May, [facility] [address] [id number] [address] [place] [address], [place] [address] May, [facility] [address] [id number] [address] [place] [address], [place] [address] May, [facility] [address] [id number] [address] [place] [address], [place] [address] May, [facility] [address] [id number] [address] [place] [address], [place] [address] Apr, [facility] [address] [id number] [address] [place] [address], [place] [address] Apr, [facility] [address] [id number] [address] [place] [address], [place] [address] Apr, [facility] [address] [id number] [address] [place] [address], [place] [address] Apr, [facility] [address] [id number] [address] [place] [address], [place] [address] Apr, [facility] [address] [id number] [address] [place] [address], [place] [address] Mar, [facility] [address] [id number] [address] [place] [address], [place] [address] Mar, [facility] [address] [id number] [address] [place] [address], [place] [address] Mar, [facility] [address] [id number] [address] [place] [address], [place] [address] Mar, [facility] [address] [id number] [address] [place] [address], [place] [address] Mar, [facility] [address] [id number] [address] [place] [address], [place] [address] Mar, [facility] [address] [id number] [address] [place] [address], [place] [address] Mar, [facility] [address] [id number] [address] [place] [address], [place] [address] Feb, [facility] [address] [id number] [address] [place] [address], [place] [address] Feb, [facility] [address] [id number] [address] [place] [address], [place] [address] Feb, [facility] [address] [id number] [address] [place] [address], [place] [address] Feb, [facility] [address] [id number] [address] [place] [address], [place] [address] Feb, [facility] [address] [id number] [address] [place] [address], [place] [address] Feb, [facility] [address] [id number] [address] [place] [address], [place] [address] Feb, [facility] [address] [id number] [address] [place] [address], [place] [address] Feb, [facility] [address] [id number] [address] [place] [address], [place] [address] Jan, [facility] [address] [id number] [address] [place] [address], [place] [address] Jan, [facility] [address] [id number] [address] [place] [address], [place] [address] Jan, [facility] [address] [id number] [address] [place] [address], [place] [address] Jan, [facility] [address] [id number] [address] [place] [address], [place] [address] 27 Dec, 2011 [facility] [address] [id number] [address] [place] [address], [place] [address] 25 Dec, 2011 [facility] [address] [id number] [address] [place] [address] [address] 18 Sep2011 [facility] [address] [id number] [address] [place] [address], [place] [address] 13 Dec, 2011 [facility] [address] [id number] [address] [place] [address], [place] [address] 11 Dec, 2011 [facility] [address] [id number] [address] [place] [address], [place] [address] 19 Oct, 2011 [facility] [address] [id number] [address] [place] [address] [place] [address] Oct, [facility] [address] [id number] [address] [place] [address], [place] [address] Sep, [facility] [address] [id number] [address] [place] [address], [place] [address] Sep, [facility] [address] [id number] [address] [place] [address], [place] [address] August, [facility] [address] [id number] [address] [place] [address], [place] [address] August, [facility] [address] [id number] [address] [place] [address], [place] [address] Jul, [facility] [address] [id number] [address] [place] [address], [place] [address] Jun, [facility] [address] [id number] [address] [place] [address], [place] [address] Jun, [facility] [address] [id number] [address] [place] [address], [place] [address] Jun, [facility] [address] [id number] [address] [place] [address], [place] [address] Jun, [facility] [address] [id number] [address] [place] [address], [place] [address] Jun, [facility] [address] [id number] [address] [place] [address], [place] [address] 24 May, 2011 [facility] [address] [id number] [address] [place] [address], [place] [address] May, [facility] [address] [id number] [address] [place] [address], [place] [address] 20 May, 2011 [facility] [address] [id number] [address] [place] [address], [place] [address] 14 May, 2011 [facility] [address] [id number] [address] [place] [address], [place] [address] 13 May, 2011 [facility] [address] [id number] [address] [place] [address], [place] [address] 03 May, 2011 [facility] [address] [id number] [address] [place] [address], [place] [address] May, [facility] [address] [id number] [address] [place] [address], [place] [address] May, [facility] [address] [id number] [address] [place] [address], [place] [address] Apr, [facility] [address] [id number] [address] [place] [address], [place] [address] Mar, [facility] [address] [id number] [address] [place] [address], [place] [address] Mar, [facility] [address] [id number] [address] [place] [address], [place] [address] Mar, [facility] [address] [id number] [address] [place] [address], [place] [address] Mar, [facility] [address] [id number] [address] [place] [address], [place] [address] Mar, [facility] [address] [id number] [address] [place] [address], [place] [address] Jan, [facility] [address] [id number] [address] [place] [address], [place] [address] Jan, [facility] [address] [id number] [address] [place] [address], [place] [address] Jan, [facility] [address] [id number] [address] [place] [address], [place] [address] August, [facility] [address] [id number] [address] [place] [address], [place] [address] Mar, [facility] [address] [id number] [address] [place] [address], [place] [address] Feb, [facility] [address] [id number] [address] [place] [address] 14 Jan, 2010 [facility] [address] [facility] [id number] [address] [place] [address] 11 Jan, 2010 IMMUNIZATIONS No Known Immunizations [...]
--- OUTSIDE RECORDS SUMMARY | 2019-11-12 16:21 | XMS REPORT ---
Author Author Talia HUDSON Organization [facility] Address [address] [place] [address] Care Team Providers Care Show Card Letterer Name Role Phone KATIE HUDSON Unavailable PROBLEMS Type Condition ICD9-CM Code TNN82-UT Code Onset Dates Condition S tatus SNOMED Code Problem Diabetes E11.9 Active 05339183 Problem Arthritis M19.90 Active 4913554 Problem Morbid obesity E66.01 Active 68416 6002 Problem Venous insufficiency I87.2 Active 51040908 Problem CAD (coronary artery disease) I25.10 Active 21278023 Problem Other chronic pain G89.29 Active 8 8076380 Problem Hyperlipemia E78.5 Active 2544177 4 Problem Osteoarthritis of knees, bilateral M17.0 Active 807131579 Problem Essential hypertension I10 Active 40930952 Problem Type 2 diabetes mellitus wit h other specified complication, without long-term current use of insulin E11.69 Active 11813633 ALLERGIES No Information ENCOUNTERS Encounter Location Date Diagnosis [place] [address] [address] [facility] [id number] [address] [place] [address] Oct, Type 2 diabetes mellitus wit h other specified complication, without long-term current use of insulin E11.69 ; Venous insufficiency I87.2 ; Low back pain M54.5 and Other chronic pain G89.29 [place] [address] [facility] [id number] [address] [place] [address] Oct, [facility] [address] [facility] [id number] [address] [place] [address] Sep, [place] [address] [facility] [id number] [address] [place] [address] August, [facility] [address] [facility] [id number] [address] [place] [address] August, [facility] [address] [id number] [address] [place] [address], [place] [address] August, [facility] [address] [id number] [address] [place] [address], [place] [address] August, [facility] [address] [id number] [address] [place] [address], [place] [address] August, [facility] [address] [id number] [address] [place] [address] August, [facility] [address] [id number] [address] [place] [address], [place] [address] August, [facility] [address] [id number] [address] [place] [address] August, Diabetes E11.9 [facility] [address] [id number] [address] [place] [address] August, [facility] [address] [id number] [address] [place] [address] August, [facility] [address] [id number] [address] [place] [address] August, [facility] [address] [id number] [address] [place] [address] Jul, [facility] [address] [id number] [address] [place] [address] Jul, [facility] [address] [id number] [address] [place] [address] 15 Jul, 2019 [facility] [address] [id number] [address] [place] [address] 10 Jul, 2019 [facility] [address] [id number] [address] [place] [address] 16 Jun, 2019 [facility] [address] [id number] [address] [place] [address] 16 Jun, 2019 [facility] [address] [id number] [address] [place] [address] Jun, Diabetes E11.9 ; Skin infect ion L08.9 and Essential hypertension I10 [facility] [address] [address] May, [facility] [address] [facility] [id number] [address] [place] [address] May, [facility] [address] [address] May, [facility] [address] [place] [id number] [place] [address] Apr, [facility] [address] [address] Mar, [facility] [address] [address] Mar, [facility] [address] [address] Feb, [facility] [address] [address] Nov, [facility] [address] [address] Nov, Diabetes E11.9 and Syncope, unspecified syncope type R55 [place] [address] [address] Nov, Osteoarthritis of knees, natan ateral M17.0 [facility] [address] [place] [id number] [address] [place] [address] Oct, Diabetes E11.9 ; CAD (guardado ry artery disease) I25.10 ; Essential hypertension I10 and Hyperlipemia E78.5 [facility] [address] [place] [id number] [address] [place] [address] Sep, [facility] [address] [place] [id number] [place] [address] Jul, [facility] [address] [facility] [id number] [address] [place] [address] Apr, [facility] [address] [address] Mar, Pustular lesion L08.9 and En counter for immunization Z23 [facility] [address] [place] [id number] [place] [address] Feb, [facility] [address] [place] [id number] [place] [address] Dec, [facility] [address] [place] [id number] [place] [address] Dec, [facility] [address] [address] Dec, Diabetes E11.9 ; Essential h ypertension I10 ; Arthritis M19.90 ; Urinary frequency R35.0 ; Routine adult health maintenance Z00.00 and BMI 45.0- 49.9, adult Z68.42 [facility] [address] [address] Dec, [facility] [address] [address] Dec, [facility] [address] [address] Oct, [facility] [address] [place] [id number] [place] [address] Sep, Diabetes E11.9 [facility] [address] [place] [id number] [address] [place] [address] Sep, Diabetes E11.9 ; Hyperlipemi a E78.5 ; CAD (coronary artery disease) I25.10 ; Essential hypertension I10 and BMI 45.0-49.9, adult Z68.42 [facility] [address] [place] [id number] [address] [place] [address] Sep, [place] [address] [facility] [id number] [address] [place] [address] August, [facility] [address] [facility] [id number] [address] [place] [address] Jan, Dysuria R30.0 [place] [address] [place] [id number] [address] [place] [address] Jan, Dysuria R30.0 [facility] [address] [place] [id number] [address] [place] [address] Jan, Osteoarthritis of knees, natan ateral M17.0 [place] [address] [place] [id number] [address] [place] [address] Nov, Dysuria R30.0 [place] [address] [facility] [id number] [address] [place] [address] Oct, Blood in urine R31.9 ; Dysur ia R30.0 ; Pharyngeal dysphagia R13.13 ; Acute cystitis with hematuria N30.01 ; CAD (coronary artery disease) I25.10 and Diabetes E11.9 [place] [address] [facility] [id number] [address] [place] [address] Oct, [place] [address] [facility] [id number] [address] [place] [address] Sep, Arthritis M19.90 ; Blood in urine R31.9 ; Diabetes E11.9 ; Acute cystitis with hematuria N30.01 and Pharyngoesophageal dysphagia R13.14 [facility] [address] [facility] [id number] [address] [place] [address] 29 Sep, 2016 Osteoarthritis of knees, natan ateral M17.0 [place] [address] [place] [id number] [address] [place] [address] Sep, Osteoarthritis of knees, natan ateral M17.0 [place] [address] [place] [id number] [address] [place] [address] August, Arthritis M19.90 [place] [address] [id number] [address] [place] [address] Jul, Arthritis M19.90 [facility] [address] [id number] [address] [place] [address] Jun, Arthritis M19.90 [facility] [address] [id number] [address] [place] [address] Jun, [facility] [address] [id number] [address] [place] [address] Jun, [facility] [address] [id number] [address] [place] [address] May, Diabetes E11.9 ; Dysuria R30 .0 and Arthritis M19.90 [facility] [address] [id number] [address] [place] [address] Apr, [facility] [address] [id number] [address] [place] [address] Apr, Arthritis M19.90 [facility] [address] [id number] [address] [place] [address] Mar, Arthritis M19.90 [facility] [address] [id number] [address] [place] [address] Feb, [facility] [address] [id number] [address] [place] [address] Jan, [facility] [address] [id number] [address] [place] [address] Dec, Diabetes E11.9 and Arthritis M19.90 [facility] [address] [id number] [address] [place] [address] Dec, [facility] [address] [facility] [id number] [address] [place] [address] Nov, Arthritis M19.90 [facility] [address] [id number] [address] [place] [address] Nov, [facility] [address] [facility] [id number] [address] [place] [address] Oct, Arthritis M19.90 [facility] [address] [facility] [id number] [address] [place] [address] Sep, Osteoarthritis of knees, natan ateral M17.0 [facility] [address] [facility] [id number] [address] [place] [address] Sep, Osteoarthritis of knees, natan ateral M17.0 [place] [address] [facility] [id number] [address] [place] [address] August, Arthritis M19.90 [place] [address] [facility] [id number] [address] [place] [address] August, [place] [address] [facility] [id number] [address] [place] [address] Jul, Hyperlipemia E78.5 [place] [address] [place] [id number] [address] [place] [address] Jul, Encounter for well woman exa m Z01.419 ; Morbid obesity E66.01 ; Encounter for screening for malignant neoplasm of cervix Z12.4 and Encounter for screening mammogram for breast cancer Z12.31 [place] [address] [place] [id number] [address] [place] [address] Jul, Arthritis M19.90 ; Diabetes E11.9 ; Blood in urine R31.9 and UTI (urinary tract infection) N39.0 [place] [address] [facility] [id number] [address] [place] [address] Jul, [place] [address] [facility] [id number] [address] [place] [address] Jun, Arthritis M19.90 [place] [address] [facility] [id number] [address] [place] [address] May, Arthritis M19.90 [place] [address] [facility] [id number] [address] [place] [address] May, [facility] [address] [id number] [address] [place] [address] Apr, [facility] [address] [facility] [id number] [address] [place] [address] Apr, Arthritis M19.90 ; Diabetes E11.9 and Morbid obesity E66.01 [facility] [address] [facility] [id number] [address] [place] [address] Apr, [facility] [address] [facility] [id number] [address] [place] [address] Apr, Dyspareunia N94.1 [facility] [address] [facility] [id number] [address] [place] [address] Apr, [facility] [address] [facility] [id number] [address] [place] [address] Apr, [facility] [address] [facility] [id number] [address] [place] [address] Apr, Osteoarthritis of knees, natan ateral M17.0 [facility] [address] [facility] [id number] [address] [place] [address] Apr, Diabetes E11.9 and CAD (elysia nary artery disease) I25.10 [facility] [address] [facility] [id number] [address] [place] [address] Mar, [facility] [address] [facility] [id number] [address] [place] [address] Feb, [facility] [address] [facility] [id number] [address] [place] [address] Jan, [facility] [address] [facility] [id number] [address] [place] [address] Jan, [facility] [address] [facility] [id number] [address] [place] [address] Jan, [facility] [address] [facility] [id number] [address] [place] [address] Jan, Osteoarthritis of knees, natan ateral M17.0 [facility] [address] [id number] [address] [place] [address] 30 Dec, 2014 [facility] [address] [id number] [address] [place] [address] Dec, [facility] [address] [id number] [address] [place] [address] Dec, [facility] [address] [id number] [address] [place] [address] 08 Dec, 2014 Diabetes mellitus 250.00 and UTI (urinary tract infection) 599.0 [facility] [address] [id number] [address] [place] [address] Dec, [facility] [address] [id number] [address] [place] [address] Nov, [facility] [address] [id number] [address] [place] [address] Oct, [facility] [address] [id number] [address] [place] [address] Oct, [facility] [address] [id number] [address] [place] [address] Oct, [facility] [address] [id number] [address] [place] [address] Oct, [facility] [address] [id number] [address] [place] [address] Oct, [facility] [address] [id number] [address] [place] [address] Sep, [facility] [address] [id number] [address] [place] [address] August, [facility] [address] [id number] [address] [place] [address] August, [facility] [address] [id number] [address] [place] [address] August, [facility] [address] [id number] [address] [place] [address], [place] [address] Jul, [facility] [address] [id number] [address] [place] [address], [place] [address] Jul, [facility] [address] [id number] [address] [place] [address], [place] [address] Jul, [facility] [address] [id number] [address] [place] [address], [place] [address] Jun, [facility] [address] [id number] [address] [place] [address], [place] [address] Jun, [facility] [address] [id number] [address] [place] [address], [place] [address] Jun, [facility] [address] [id number] [address] [place] [address], [place] [address] Jun, [facility] [address] [id number] [address] [place] [address], [place] [address] Jun, [facility] [address] [id number] [address] [place] [address], [place] [address] Jun, [facility] [address] [id number] [address] [place] [address], [place] [address] Jun, [facility] [address] [id number] [address] [place] [address], [place] [address] Jun, [facility] [address] [id number] [address] [place] [address], [place] [address] May, [facility] [address] [id number] [address] [place] [address], [place] [address] May, [facility] [address] [id number] [address] [place] [address], [place] [address] May, [facility] [address] [id number] [address] [place] [address], [place] [address] May, [facility] [address] [id number] [address] [place] [address], [place] [address] May, 2014 [facility] [address] [id number] [address] [place] [address], [place] [address] May, 2014 [facility] [address] [id number] [address] [place] [address], [place] [address] May, 2014 [facility] [address] [id number] [address] [place] [address], [place] [address] May, 2014 [facility] [address] [id number] [address] [place] [address], [place] [address] May, 2014 [facility] [address] [id number] [address] [place] [address], [place] [address] May, 2014 [facility] [address] [id number] [address] [place] [address], [place] [address] May, 2014 [facility] [address] [id number] [address] [place] [address], [place] [address] May, [facility] [address] [id number] [address] [place] [address], [place] [address] Apr, [facility] [address] [id number] [address] [place] [address], [place] [address] Apr, [facility] [address] [id number] [address] [place] [address], [place] [address] Mar, [facility] [address] [id number] [address] [place] [address], [place] [address] Mar, [facility] [address] [id number] [address] [place] [address], [place] [address] Mar, [facility] [address] [id number] [address] [place] [address], [place] [address] Mar, [facility] [address] [id number] [address] [place] [address], [place] [address] Mar, [facility] [address] [id number] [address] [place] [address], [place] [address] 16 Mar, 2014 [facility] [address] [id number] [address] [place] [address], [place] [address] Feb, [facility] [address] [id number] [address] [place] [address], [place] [address] Feb, [facility] [address] [id number] [address] [place] [address], [place] [address] Feb, [facility] [address] [id number] [address] [place] [address], [place] [address] Feb, [facility] [address] [id number] [address] [place] [address], [place] [address] Feb, [facility] [address] [id number] [address] [place] [address], [place] [address] Feb, [facility] [address] [id number] [address] [place] [address], [place] [address] Feb, [facility] [address] [id number] [address] [place] [address], [place] [address] Feb, [facility] [address] [id number] [address] [place] [address], [place] [address] Feb, [facility] [address] [id number] [address] [place] [address], [place] [address] Jan, [facility] [address] [id number] [address] [place] [address], [place] [address] Jan, [facility] [address] [id number] [address] [place] [address], [place] [address] Jan, [facility] [address] [id number] [address] [place] [address], [place] [address] Jan, [facility] [address] [id number] [address] [place] [address], [place] [address] Jan, [facility] [address] [id number] [address] [place] [address], [place] [address] Jan, [facility] [address] [id number] [facility] [place] [address] 17 Jan, 2014 [facility] [address] [id number] [address] [place] [address], [place] [address] 17 Jan, 2014 [facility] [address] [id number] [address] [place] [address], [place] [address] Jan, [facility] [address] [id number] [address] [place] [address], [place] [address] Jan, [facility] [address] [id number] [address] [place] [address], [place] [address] Dec, [facility] [address] [id number] [address] [place] [address], [place] [address] Dec, [facility] [address] [id number] [address] [place] [address], [place] [address] Dec, [facility] [address] [id number] [address] [place] [address], [place] [address] Dec, [facility] [address] [id number] [address] [place] [address], [place] [address] Nov, [facility] [address] [id number] [address] [place] [address], [place] [address] Nov, [facility] [address] [id number] [address] [place] [address], [place] [address] Nov, [facility] [address] [id number] [address] [place] [address], [place] [address] Nov, [facility] [address] [id number] [address] [place] [address], [place] [address] Nov, [facility] [address] [id number] [address] [place] [address], [place] [address] Nov, [facility] [address] [id number] [address] [place] [address], [place] [address] Nov, [facility] [address] [id number] [address] [place] [address], [place] [address] Nov, [facility] [address] [id number] [facility] [place] [address] Nov, [facility] [address] [id number] [address] [place] [address], [place] [address] Oct, [facility] [address] [id number] [facility] [place] [address] Oct, [facility] [address] [id number] [address] [place] [address], [place] [address] Sep, [facility] [address] [id number] [address] [place] [address], [place] [address] Sep, [facility] [address] [id number] [address] [place] [address], [place] [address] Sep, [facility] [address] [id number] [address] [place] [address], [place] [address] Sep, [facility] [address] [id number] [address] [place] [address], [place] [address] Sep, [facility] [address] [id number] [address] [place] [address], [place] [address] Sep, [facility] [address] [id number] [address] [place] [address], [place] [address] Sep, [facility] [address] [id number] [address] [place] [address], [place] [address] Sep, [facility] [address] [id number] [address] [place] [address], [place] [address] Sep, [facility] [address] [id number] [address] [place] [address], [place] [address] Sep, [facility] [address] [id number] [address] [place] [address], [place] [address] Sep, [facility] [facility] [address] [id number] [address] [place] [address], [place] [address] Sep, [facility] [address] [id number] [address] [place] [address], [place] [address] Sep, [facility] [address] [id number] [address] [place] [address], [place] [address] Sep, [facility] [address] [id number] [address] [place] [address], [place] [address] August, [facility] [address] [id number] [address] [place] [address], [place] [address] August, [facility] [address] [id number] [address] [place] [address], [place] [address] August, [facility] [address] [id number] [address] [place] [address], [place] [address] August, [facility] [address] [id number] [address] [place] [address], [place] [address] Jul, [facility] [address] [id number] [address] [place] [address], [place] [address] Jul, [facility] [address] [id number] [address] [place] [address], [place] [address] Jul, [facility] [address] [id number] [address] [place] [address], [place] [address] Jul, [facility] [address] [id number] [address] [place] [address], [place] [address] Jun, [facility] [address] [id number] [address] [place] [address], [place] [address] Jun, [facility] [address] [id number] [address] [place] [address], [place] [address] May, [facility] [address] [id number] [address] [place] [address], [place] [address] May, [facility] [address] [id number] [address] [place] [address], [place] [address] May, [facility] [address] [id number] [address] [place] [address], [place] [address] May, [facility] [address] [id number] [address] [place] [address], [place] [address] May, [facility] [address] [id number] [address] [place] [address], [place] [address] May, [facility] [address] [id number] [address] [place] [address], [place] [address] May, [facility] [address] [id number] [address] [place] [address], [place] [address] May, [facility] [address] [id number] [address] [place] [address], [place] [address] May, [facility] [address] [id number] [address] [place] [address], [place] [address] Apr, [facility] [address] [id number] [address] [place] [address], [place] [address] Apr, [facility] [address] [id number] [address] [place] [address], [place] [address] Apr, [facility] [address] [id number] [address] [place] [address], [place] [address] Apr, [facility] [address] [id number] [address] [place] [address], [place] [address] Apr, [facility] [address] [id number] [address] [place] [address], [place] [address] Mar, [facility] [address] [id number] [address] [place] [address], [place] [address] Mar, [facility] [address] [id number] [address] [place] [address], [place] [address] Feb, [facility] [address] [id number] [address] [place] [address], [place] [address] Feb, [facility] [address] [id number] [address] [place] [address], [place] [address] Feb, [facility] [address] [id number] [address] [place] [address], [place] [address] Feb, [facility] [address] [id number] [address] [place] [address], [place] [address] Feb, [facility] [address] [id number] [address] [place] [address], [place] [address] Feb, [facility] [address] [id number] [address] [place] [address], [place] [address] Feb, [facility] [address] [id number] [address] [place] [address], [place] [address] Feb, [facility] [address] [id number] [address] [place] [address], [place] [address] Feb, [facility] [address] [id number] [address] [place] [address], [place] [address] Jan, [facility] [address] [id number] [address] [place] [address], [place] [address] Jan, [facility] [address] [id number] [address] [place] [address], [place] [address] Jan, [facility] [address] [id number] [address] [place] [address], [place] [address] Jan, [facility] [address] [id number] [address] [place] [address], [place] [address] Jan, [facility] [address] [id number] [address] [place] [address], [place] [address] Dec, [facility] [address] [id number] [address] [place] [address], [place] [address] Dec, [facility] [address] [id number] [address] [place] [address], [place] [address] Nov, [facility] [address] [id number] [address] [place] [address], [place] [address] Nov, [facility] [address] [id number] [address] [place] [address], [place] [address] Oct, [facility] [address] [id number] [address] [place] [address], [place] [address] Oct, [facility] [address] [id number] [address] [place] [address], [place] [address] Oct, [facility] [address] [id number] [address] [place] [address], [place] [address] Sep, [facility] [address] [id number] [address] [place] [address], [place] [address] Sep, [facility] [address] [id number] [address] [place] [address], [place] [address] Sep, [facility] [address] [id number] [address] [place] [address], [place] [address] August, [facility] [address] [id number] [address] [place] [address], [place] [address] August, [facility] [address] [id number] [address] [place] [address], [place] [address] August, [facility] [address] [id number] [address] [place] [address], [place] [address] August, [facility] [address] [id number] [address] [place] [address], [place] [address] Jul, [facility] [address] [id number] [address] [place] [address], [place] [address] Jun, [facility] [address] [id number] [address] [place] [address], [place] [address] Jun, [facility] [address] [id number] [address] [place] [address], [place] [address] 05 Jun, 2012 [facility] [address] [id number] [address] [place] [address], [place] [address] May, [facility] [address] [id number] [address] [place] [address], [place] [address] May, [facility] [address] [id number] [address] [place] [address], [place] [address] 04 May, 2012 [facility] [address] [id number] [address] [place] [address], [place] [address] May, [facility] [address] [id number] [address] [place] [address], [place] [address] Apr, [facility] [address] [id number] [address] [place] [address], [place] [address] Apr, [facility] [address] [id number] [address] [place] [address], [place] [address] Apr, [facility] [address] [id number] [address] [place] [address], [place] [address] Apr, [facility] [address] [id number] [address] [place] [address], [place] [address] Apr, [facility] [address] [id number] [address] [place] [address], [place] [address] Mar, [facility] [address] [id number] [address] [place] [address], [place] [address] Mar, [facility] [address] [id number] [address] [place] [address], [place] [address] Mar, [facility] [address] [id number] [address] [place] [address], [place] [address] Mar, [facility] [address] [id number] [address] [place] [address], [place] [address] Mar, [facility] [address] [id number] [address] [place] [address], [place] [address] Mar, [facility] [address] [id number] [address] [place] [address], [place] [address] Mar, [facility] [address] [id number] [address] [place] [address], [place] [address] Feb, [facility] [address] [id number] [address] [place] [address], [place] [address] Feb, [facility] [address] [id number] [address] [place] [address], [place] [address] Feb, [facility] [address] [id number] [address] [place] [address], [place] [address] Feb, [facility] [address] [id number] [address] [place] [address], [place] [address] Feb, [facility] [address] [id number] [address] [place] [address], [place] [address] Feb, [facility] [address] [id number] [address] [place] [address], [place] [address] Feb, [facility] [address] [id number] [address] [place] [address], [place] [address] Feb, [facility] [address] [id number] [address] [place] [address], [place] [address] Jan, [facility] [address] [id number] [address] [place] [address], [place] [address] Jan, [facility] [address] [id number] [address] [place] [address], [place] [address] Jan, [facility] [address] [id number] [address] [place] [address], [place] [address] Jan, [facility] [address] [id number] [address] [place] [address], [place] [address] 27 Dec, 2011 [facility] [address] [id number] [address] [place] [address], [place] [address] 25 Sep2011 [facility] [address] [id number] [address] [place] [address], [place] [address] 18 Sep2011 [facility] [address] [id number] [address] [place] [address] [address] 13 Sep2011 [facility] [address] [id number] [address] [place] [address], [place] [address] 11 Sep2011 [facility] [address] [id number] [address] [place] [address], [place] [address] Oct, [facility] [address] [id number] [address] [place] [address], [place] [address] Oct, [facility] [address] [id number] [address] [place] [address], [place] [address] Sep, [facility] [address] [id number] [address] [place] [address], [place] [address] Sep, [facility] [address] [id number] [address] [place] [address], [place] [address] August, [facility] [address] [id number] [address] [place] [address], [place] [address] August, [facility] [address] [id number] [address] [place] [address], [place] [address] Jul, [facility] [address] [id number] [address] [place] [address], [place] [address] Jun, [facility] [address] [id number] [address] [place] [address], [place] [address] Jun, [facility] [address] [id number] [address] [place] [address], [place] [address] Jun, [facility] [address] [id number] [address] [place] [address], [place] [address] Jun, [facility] [address] [id number] [address] [place] [address], [place] [address] Jun, [facility] [address] [id number] [address] [place] [address], [place] [address] May, [facility] [address] [id number] [address] [place] [address], [place] [address] May, [facility] [address] [id number] [address] [place] [address], [place] [address] 20 May, 2011 [facility] [address] [id number] [address] [place] [address], [place] [address] 14 May, 2011 [facility] [address] [id number] [address] [place] [address], [place] [address] 13 May, 2011 [facility] [address] [id number] [address] [place] [address], [place] [address] 03 May, 2011 [facility] [address] [id number] [address] [place] [address], [place] [address] 02 May, 2011 [facility] [address] [id number] [address] [place] [address], [place] [address] May, [facility] [address] [id number] [address] [place] [address], [place] [address] Apr, [facility] [address] [id number] [address] [place] [address], [place] [address] Mar, [facility] [address] [id number] [address] [place] [address], [place] [address] Mar, [facility] [address] [id number] [address] [place] [address], [place] [address] Mar, [facility] [address] [id number] [address] [place] [address], [place] [address] 15 Mar, 2011 [facility] [address] [id number] [address] [place] [address], [place] [address] Mar, [facility] [address] [id number] [address] [place] [address], [place] [address] 17 Jan, 2011 [facility] [address] [id number] [address] [place] [address], [place] [address] Jan, [facility] [address] [id number] [address] [place] [address], [place] [address] Jan, [facility] [address] [id number] [address] [place] [address], [place] [address] August, [facility] [address] [id number] [address] [place] [address], [place] [address] 13 Mar, 2010 [facility] [address] [id number] [address] [address] Feb, [facility] [address] [facility] [id number] [address] [place] [address] Jan, [facility] [address] [facility] [id number] [address] [place] [address] Jan, IMMUNIZATIONS No Known Immunizations SOCIAL HISTORY [...]
--- OUTSIDE RECORDS SUMMARY | 2019-11-12 16:22 | XMS REPORT ---
Author Author Talia HUDSON Organization [facility] Address [address] [place] [address] Care Team Providers Care Consultant In [employer] Name Role Phone KATIE HUDSON Unavailable PROBLEMS Type Condition ICD9-CM Code FJR43-EL Code Onset Dates Condition S tatus SNOMED Code Problem Diabetes E11.9 Active 68967707 Problem Arthritis M19.90 Active 7998552 Problem Morbid obesity E66.01 Active 33244 6002 Problem Venous insufficiency I87.2 Active 99411176 Problem CAD (coronary artery disease) I25.10 Active 22276452 Problem Other chronic pain G89.29 Active 8 3546517 Problem Hyperlipemia E78.5 Active 5318821 4 Problem Osteoarthritis of knees, bilateral M17.0 Active 455154847 Problem Essential hypertension I10 Active 67431469 Problem Type 2 diabetes mellitus wit h other specified complication, without long-term current use of insulin E11.69 Active 07139032 ALLERGIES No Information ENCOUNTERS Encounter Location Date Diagnosis [place] [address] [address] [facility] [id number] [address] [place] [phone] Oct, Type 2 diabetes mellitus wit h other specified complication, without long-term current use of insulin E11.69 ; Venous insufficiency I87.2 ; Low back pain M54.5 and Other chronic pain G89.29 [place] [address] [facility] [id number] [address] [place] [address] Oct, [facility] [address] [facility] [id number] [address] [place] [address] Sep, [place] [address] [address] [facility] [id number] [address] [place] [address] August, [facility] [address] [facility] [id number] [address] [place] [address] August, [facility] [address] [id number] [address] [place] [address], [place] [address] August, [facility] [address] [id number] [address] [place] [address], [place] [address] August, [facility] [address] [id number] [address] [place] [address], [place] [address] August, [facility] [address] [id number] [address] [place] [phone] August, [facility] [address] [id number] [address] [place] [address], [place] [address] August, [facility] [address] [id number] [address] [place] [address] August, Diabetes E11.9 [facility] [address] [id number] [address] [place] [address] August, [facility] [address] [id number] [address] [place] [address] August, [facility] [address] [id number] [address] [place] [address] August, [facility] [address] [id number] [address] [place] [address] Jul, [facility] [address] [id number] [address] [place] [address] Jul, [facility] [address] [id number] [address] [place] [phone] 15 Jul, 2019 [facility] [address] [id number] [address] [place] [address] 10 Jul, 2019 [facility] [address] [id number] [address] [place] [phone] 16 Jun, 2019 [facility] [address] [id number] [address] [place] [address] 16 Jun, 2019 [facility] [address] [id number] [address] [place] [address] Jun, Diabetes E11.9 ; Skin infect ion L08.9 and Essential hypertension I10 [facility] [address] [address] May, [facility] [address] [facility] [id number] [address] [place] [address] May, [facility] [address] [address] May, [facility] [address] [place] [id number] [place] [address] Apr, [facility] [address] [address] Mar, [facility] [address] [address] Mar, [facility] [address] [address] Feb, [facility] [address] [address] Nov, [facility] [address] [address] Nov, Diabetes E11.9 and Syncope, unspecified syncope type R55 [place] [address] [address] Nov, Osteoarthritis of knees, natan ateral M17.0 [facility] [address] [place] [id number] [address] [place] [address] Oct, Diabetes E11.9 ; CAD (guardado ry artery disease) I25.10 ; Essential hypertension I10 and Hyperlipemia E78.5 [facility] [address] [place] [id number] [address] [place] [phone] Sep, [facility] [address] [place] [id number] [place] [address] Jul, [facility] [address] [facility] [id number] [address] [place] [address] Apr, [facility] [address] [address] Mar, Pustular lesion L08.9 and En counter for immunization Z23 [facility] [address] [place] [id number] [place] [address] Feb, [facility] [address] [place] [id number] [place] [address] Dec, [facility] [address] [place] [id number] [place] [address] Dec, [facility] [address] [address] Dec, Diabetes E11.9 ; Essential h ypertension I10 ; Arthritis M19.90 ; Urinary frequency R35.0 ; Routine adult health maintenance Z00.00 and BMI 45.0- 49.9, adult Z68.42 [facility] [address] [address] Dec, [facility] [address] [address] Dec, [facility] [address] [address] Oct, [facility] [address] [place] [id number] [place] [address] Sep, Diabetes E11.9 [facility] [address] [place] [id number] [address] [place] [address] Sep, Diabetes E11.9 ; Hyperlipemi a E78.5 ; CAD (coronary artery disease) I25.10 ; Essential hypertension I10 and BMI 45.0-49.9, adult Z68.42 [facility] [address] [place] [id number] [address] [place] [address] Sep, [place] [address] [facility] [id number] [address] [place] [address] August, [facility] [address] [facility] [id number] [address] [place] [phone] Jan, Dysuria R30.0 [place] [address] [address] [place] [id number] [address] [place] [address] Jan, Dysuria R30.0 [facility] [address] [place] [id number] [address] [place] [address] Jan, Osteoarthritis of knees, natan ateral M17.0 [place] [address] [address] [place] [id number] [address] [place] [address] Nov, Dysuria R30.0 [place] [address] [address] [facility] [id number] [address] [place] [address] Oct, Blood in urine R31.9 ; Dysur ia R30.0 ; Pharyngeal dysphagia R13.13 ; Acute cystitis with hematuria N30.01 ; CAD (coronary artery disease) I25.10 and Diabetes E11.9 [place] [address] [address] [facility] [id number] [address] [place] [address] Oct, [place] [address] [address] [facility] [id number] [address] [place] [address] Sep, Arthritis M19.90 ; Blood in urine R31.9 ; Diabetes E11.9 ; Acute cystitis with hematuria N30.01 and Pharyngoesophageal dysphagia R13.14 [facility] [address] [facility] [id number] [address] [place] [address] 29 Sep, 2016 Osteoarthritis of knees, natan ateral M17.0 [place] [address] [place] [id number] [address] [place] [address] Sep, Osteoarthritis of knees, natan ateral M17.0 [place] [address] [address] [place] [id number] [address] [place] [address] August, Arthritis M19.90 [place] [address] [id number] [address] [place] [address] Jul, Arthritis M19.90 [facility] [address] [id number] [address] [place] [address] Jun, Arthritis M19.90 [facility] [address] [id number] [address] [place] [address] Jun, [facility] [address] [id number] [address] [place] [address] Jun, [facility] [address] [id number] [address] [place] [address] May, Diabetes E11.9 ; Dysuria R30 .0 and Arthritis M19.90 [facility] [address] [id number] [address] [place] [address] Apr, [facility] [address] [id number] [address] [place] [address] Apr, Arthritis M19.90 [facility] [address] [id number] [address] [place] [address] Mar, Arthritis M19.90 [facility] [address] [id number] [address] [place] [address] Feb, [facility] [address] [id number] [address] [place] [address] Jan, [facility] [address] [id number] [address] [place] [address] Dec, Diabetes E11.9 and Arthritis M19.90 [facility] [address] [id number] [address] [place] [address] Dec, [facility] [address] [facility] [id number] [address] [place] [address] Nov, Arthritis M19.90 [facility] [address] [id number] [address] [place] [address] Nov, [facility] [address] [facility] [id number] [address] [place] [address] Oct, Arthritis M19.90 [facility] [address] [facility] [id number] [address] [place] [address] Sep, Osteoarthritis of knees, natan ateral M17.0 [facility] [address] [facility] [id number] [address] [place] [address] Sep, Osteoarthritis of knees, natan ateral M17.0 [place] [address] [facility] [id number] [address] [place] [address] August, Arthritis M19.90 [place] [address] [facility] [id number] [address] [place] [address] August, [place] [address] [facility] [id number] [address] [place] [address] Jul, Hyperlipemia E78.5 [place] [address] [place] [id number] [address] [place] [address] Jul, Encounter for well woman exa m Z01.419 ; Morbid obesity E66.01 ; Encounter for screening for malignant neoplasm of cervix Z12.4 and Encounter for screening mammogram for breast cancer Z12.31 [place] [address] [place] [id number] [address] [place] [address] Jul, Arthritis M19.90 ; Diabetes E11.9 ; Blood in urine R31.9 and UTI (urinary tract infection) N39.0 [place] [address] [address] [facility] [id number] [address] [place] [address] Jul, [place] [address] [facility] [id number] [address] [place] [address] Jun, Arthritis M19.90 [place] [address] [facility] [id number] [address] [place] [address] May, Arthritis M19.90 [place] [address] [facility] [id number] [address] [place] [address] May, [facility] [address] [id number] [address] [place] [address] Apr, [facility] [address] [facility] [id number] [address] [place] [address] Apr, Arthritis M19.90 ; Diabetes E11.9 and Morbid obesity E66.01 [facility] [address] [facility] [id number] [address] [place] [address] Apr, [facility] [address] [facility] [id number] [address] [place] [address] Apr, Dyspareunia N94.1 [facility] [address] [facility] [id number] [address] [place] [address] Apr, [facility] [address] [facility] [id number] [address] [place] [address] Apr, [facility] [address] [facility] [id number] [address] [place] [address] Apr, Osteoarthritis of knees, natan ateral M17.0 [facility] [address] [facility] [id number] [address] [place] [address] Apr, Diabetes E11.9 and CAD (elysia nary artery disease) I25.10 [facility] [address] [facility] [id number] [address] [place] [address] Mar, [facility] [address] [facility] [id number] [address] [place] [address] Feb, [facility] [address] [facility] [id number] [address] [place] [address] Jan, [facility] [address] [facility] [id number] [address] [place] [address] Jan, [facility] [address] [facility] [id number] [address] [place] [address] Jan, [facility] [address] [facility] [id number] [address] [place] [address] Jan, Osteoarthritis of knees, natan ateral M17.0 [facility] [address] [id number] [address] [place] [address] 30 Dec, 2014 [facility] [address] [id number] [address] [place] [address] Dec, [facility] [address] [id number] [address] [place] [address] Dec, [facility] [address] [id number] [address] [place] [phone] 08 Dec, 2014 Diabetes mellitus 250.00 and UTI (urinary tract infection) 599.0 [facility] [address] [id number] [address] [place] [address] Dec, [facility] [address] [id number] [address] [place] [address] Nov, [facility] [address] [id number] [address] [place] [address] Oct, [facility] [address] [id number] [address] [place] [address] Oct, [facility] [address] [id number] [address] [place] [phone] Oct, [facility] [address] [id number] [address] [place] [address] Oct, [facility] [address] [id number] [address] [place] [address] Oct, [facility] [address] [id number] [address] [place] [address] Sep, [facility] [address] [id number] [address] [place] [address] August, [facility] [address] [id number] [address] [place] [address] August, [facility] [address] [id number] [address] [place] [address] August, [facility] [address] [id number] [address] [place] [address], [place] [address] Jul, [facility] [address] [id number] [address] [place] [address], [place] [address] Jul, [facility] [address] [id number] [address] [place] [address], [place] [address] Jul, [facility] [address] [id number] [address] [place] [address], [place] [address] Jun, [facility] [address] [id number] [address] [place] [address], [place] [address] Jun, [facility] [address] [id number] [address] [place] [address], [place] [address] Jun, [facility] [address] [id number] [address] [place] [address], [place] [address] Jun, [facility] [address] [id number] [address] [place] [address], [place] [address] Jun, [facility] [address] [id number] [address] [place] [address], [place] [address] Jun, [facility] [address] [id number] [address] [place] [address], [place] [address] Jun, [facility] [address] [id number] [address] [place] [address], [place] [address] Jun, [facility] [address] [id number] [address] [place] [address], [place] [address] May, [facility] [address] [id number] [address] [place] [address], [place] [address] May, [facility] [address] [id number] [address] [place] [address], [place] [address] May, [facility] [address] [id number] [address] [place] [address], [place] [address] May, [facility] [address] [id number] [address] [place] [address], [place] [address] May, 2014 [facility] [address] [id number] [address] [place] [address], [place] [address] May, 2014 [facility] [address] [id number] [address] [place] [address], [place] [address] May, 2014 [facility] [address] [id number] [address] [place] [address], [place] [address] May, 2014 [facility] [address] [id number] [address] [place] [address], [place] [address] May, 2014 [facility] [address] [id number] [address] [place] [address], [place] [address] May, 2014 [facility] [address] [id number] [address] [place] [address], [place] [address] May, 2014 [facility] [address] [id number] [address] [place] [address], [place] [address] May, [facility] [address] [id number] [address] [place] [address], [place] [address] Apr, [facility] [address] [id number] [address] [place] [address], [place] [address] Apr, [facility] [address] [id number] [address] [place] [address], [place] [address] Mar, [facility] [address] [id number] [address] [place] [address], [place] [address] Mar, [facility] [address] [id number] [address] [place] [address], [place] [address] Mar, [facility] [address] [id number] [address] [place] [address], [place] [address] Mar, [facility] [address] [id number] [address] [place] [address], [place] [address] Mar, [facility] [address] [id number] [address] [place] [address], [place] [id number] 16 Mar, 2014 [facility] [address] [id number] [address] [place] [address], [place] [address] Feb, [facility] [address] [id number] [address] [place] [address], [place] [address] Feb, [facility] [address] [id number] [address] [place] [address], [place] [address] Feb, [facility] [address] [id number] [address] [place] [address], [place] [address] Feb, [facility] [address] [id number] [address] [place] [address], [place] [address] Feb, [facility] [address] [id number] [address] [place] [address], [place] [address] Feb, [facility] [address] [id number] [address] [place] [address], [place] [address] Feb, [facility] [address] [id number] [address] [place] [address], [place] [address] Feb, [facility] [address] [id number] [address] [place] [address], [place] [address] Feb, [facility] [address] [id number] [address] [place] [address], [place] [address] Jan, [facility] [address] [id number] [address] [place] [address], [place] [address] Jan, [facility] [address] [id number] [address] [place] [address], [place] [address] Jan, [facility] [address] [id number] [address] [place] [address], [place] [address] Jan, [facility] [address] [id number] [address] [place] [address], [place] [address] Jan, [facility] [address] [id number] [address] [place] [address], [place] [address] Jan, [facility] [address] [id number] [facility] [place] [address] 17 Jan, 2014 [facility] [address] [id number] [address] [place] [address], [place] [address] 17 Jan, 2014 [facility] [address] [id number] [address] [place] [address], [place] [address] Jan, [facility] [address] [id number] [address] [place] [address], [place] [address] Jan, [facility] [address] [id number] [address] [place] [address], [place] [address] Dec, [facility] [address] [id number] [address] [place] [address], [place] [address] Dec, [facility] [address] [id number] [address] [place] [address], [place] [address] Dec, [facility] [address] [id number] [address] [place] [address], [place] [address] Dec, [facility] [address] [id number] [address] [place] [address], [place] [address] Nov, [facility] [address] [address] [id number] [address] [place] [address], [place] [address] Nov, [facility] [address] [id number] [address] [place] [address], [place] [address] Nov, [facility] [address] [id number] [address] [place] [address], [place] [address] Nov, [facility] [address] [id number] [address] [place] [address], [place] [address] Nov, [facility] [address] [id number] [address] [place] [address], [place] [address] Nov, [facility] [address] [id number] [address] [place] [address], [place] [address] Nov, [facility] [address] [id number] [address] [place] [address], [place] [address] Nov, [facility] [address] [id number] [facility] [place] [address] Nov, [facility] [address] [id number] [address] [place] [address], [place] [address] Oct, [facility] [address] [id number] [facility] [place] [address] Oct, [facility] [address] [id number] [address] [place] [address], [place] [address] Sep, [facility] [address] [id number] [address] [place] [address], [place] [address] Sep, [facility] [address] [id number] [address] [place] [address], [place] [address] Sep, [facility] [address] [id number] [address] [place] [address], [place] [address] Sep, [facility] [address] [id number] [address] [place] [address], [place] [address] Sep, [facility] [address] [id number] [address] [place] [address], [place] [address] Sep, [facility] [address] [id number] [address] [place] [address], [place] [address] Sep, [facility] [address] [id number] [address] [place] [address], [place] [address] Sep, [facility] [address] [id number] [address] [place] [address], [place] [address] Sep, [facility] [address] [id number] [address] [place] [address], [place] [address] Sep, [facility] [address] [id number] [address] [place] [address], [place] [address] Sep, [facility] [address] [id number] [address] [place] [address], [place] [address] Sep, [facility] [address] [id number] [address] [place] [address], [place] [address] Sep, [facility] [address] [id number] [address] [place] [address], [place] [address] Sep, [facility] [address] [id number] [address] [place] [address], [place] [address] August, [facility] [address] [id number] [address] [place] [address], [place] [address] August, [facility] [address] [id number] [address] [place] [address], [place] [address] August, [facility] [address] [id number] [address] [place] [address], [place] [address] August, [facility] [address] [id number] [address] [place] [address], [place] [address] Jul, [facility] [address] [id number] [address] [place] [address], [place] [address] Jul, [facility] [address] [id number] [address] [place] [address], [place] [address] Jul, [facility] [address] [id number] [address] [place] [address], [place] [address] Jul, [facility] [address] [id number] [address] [place] [address], [place] [address] Jun, [facility] [address] [id number] [address] [place] [address], [place] [address] Jun, [facility] [address] [id number] [address] [place] [address], [place] [address] May, [facility] [address] [id number] [address] [place] [address], [place] [address] May, [facility] [address] [id number] [address] [place] [address], [place] [address] May, [facility] [address] [id number] [address] [place] [address], [place] [address] May, [facility] [address] [id number] [address] [place] [address], [place] [address] May, [facility] [address] [id number] [address] [place] [address], [place] [address] May, [facility] [address] [id number] [address] [place] [address], [place] [address] May, [facility] [address] [id number] [address] [place] [address], [place] [address] May, [facility] [address] [id number] [address] [place] [address], [place] [address] May, [facility] [address] [id number] [address] [place] [address], [place] [address] Apr, [facility] [address] [id number] [address] [place] [address], [place] [address] Apr, [facility] [address] [id number] [address] [place] [address], [place] [address] Apr, [facility] [address] [id number] [address] [place] [address], [place] [address] Apr, [facility] [address] [id number] [address] [place] [address], [place] [address] Apr, [facility] [address] [id number] [address] [place] [address], [place] [address] Mar, [facility] [address] [id number] [address] [place] [address], [place] [address] Mar, [facility] [address] [id number] [address] [place] [address], [place] [address] Feb, [facility] [address] [id number] [address] [place] [address], [place] [address] Feb, [facility] [address] [id number] [address] [place] [address], [place] [address] Feb, [facility] [address] [id number] [address] [place] [address], [place] [address] Feb, [facility] [address] [id number] [address] [place] [address], [place] [address] Feb, [facility] [address] [id number] [address] [place] [address], [place] [address] Feb, [facility] [address] [id number] [address] [place] [address], [place] [address] Feb, [facility] [address] [id number] [address] [place] [address], [place] [address] Feb, [facility] [address] [id number] [address] [place] [address], [place] [address] Feb, [facility] [address] [id number] [address] [place] [address], [place] [address] Jan, [facility] [address] [id number] [address] [place] [address], [place] [address] Jan, [facility] [address] [id number] [address] [place] [address], [place] [address] Jan, [facility] [address] [id number] [address] [place] [address], [place] [address] Jan, [facility] [address] [id number] [address] [place] [address], [place] [address] Jan, [facility] [address] [id number] [address] [place] [address], [place] [address] Dec, [facility] [address] [id number] [address] [place] [address], [place] [address] Dec, [facility] [address] [id number] [address] [place] [address], [place] [address] Nov, [facility] [address] [id number] [address] [place] [address], [place] [address] Nov, [facility] [address] [id number] [address] [place] [address], [place] [address] Oct, [facility] [address] [id number] [address] [place] [address], [place] [address] Oct, [facility] [address] [id number] [address] [place] [address], [place] [address] Oct, [facility] [address] [id number] [address] [place] [address], [place] [address] Sep, [facility] [address] [id number] [address] [place] [address], [place] [address] Sep, [facility] [address] [id number] [address] [place] [address], [place] [address] Sep, [facility] [address] [id number] [address] [place] [address], [place] [address] August, [facility] [address] [id number] [address] [place] [address], [place] [address] August, [facility] [address] [id number] [address] [place] [address], [place] [address] August, [facility] [address] [id number] [address] [place] [address], [place] [address] August, [facility] [address] [id number] [address] [place] [address], [place] [address] Jul, [facility] [address] [id number] [address] [place] [address], [place] [address] Jun, [facility] [address] [id number] [address] [place] [address], [place] [address] Jun, [facility] [address] [id number] [address] [place] [address], [place] [address] 05 Jun, 2012 [facility] [address] [id number] [address] [place] [address], [place] [address] May, [facility] [address] [id number] [address] [place] [address], [place] [address] May, [facility] [address] [id number] [address] [place] [address], [place] [address] 04 May, 2012 [facility] [address] [id number] [address] [place] [address], [place] [address] May, [facility] [address] [id number] [address] [place] [address], [place] [address] Apr, [facility] [address] [id number] [address] [place] [address], [place] [address] Apr, [facility] [address] [id number] [address] [place] [address], [place] [address] Apr, [facility] [address] [id number] [address] [place] [address], [place] [address] Apr, [facility] [address] [id number] [address] [place] [address], [place] [address] Apr, [facility] [address] [id number] [address] [place] [address], [place] [address] Mar, [facility] [address] [id number] [address] [place] [address], [place] [address] Mar, [facility] [address] [id number] [address] [place] [address], [place] [address] Mar, [facility] [address] [id number] [address] [place] [address], [place] [address] Mar, [facility] [address] [id number] [address] [place] [address], [place] [address] Mar, [facility] [address] [id number] [address] [place] [address], [place] [address] Mar, [facility] [address] [id number] [address] [place] [address], [place] [address] Mar, [facility] [address] [id number] [address] [place] [address], [place] [address] Feb, [facility] [address] [id number] [address] [place] [address], [place] [address] Feb, [facility] [address] [id number] [address] [place] [address], [place] [address] Feb, [facility] [address] [id number] [address] [place] [address], [place] [address] Feb, [facility] [address] [id number] [address] [place] [address], [place] [address] Feb, [facility] [address] [id number] [address] [place] [address], [place] [address] Feb, [facility] [address] [id number] [address] [place] [address], [place] [address] Feb, [facility] [address] [id number] [address] [place] [address], [place] [address] Feb, [facility] [address] [id number] [address] [place] [address], [place] [address] Jan, [facility] [address] [id number] [address] [place] [address], [place] [address] Jan, [facility] [address] [id number] [address] [place] [address], [place] [address] Jan, [facility] [address] [id number] [address] [place] [address], [place] [address] Jan, [facility] [address] [id number] [address] [place] [address], [place] [address] 27 Dec, 2011 [facility] [address] [id number] [address] [place] [address], [place] [address] 25 Sep2011 [facility] [address] [id number] [address] [place] [address] [address] 18 Sep2011 [facility] [address] [id number] [address] [place] [address], [place] [address] 13 Sep2011 [facility] [address] [id number] [address] [place] [address] [address] 11 Sep2011 [facility] [address] [id number] [address] [place] [address], [place] [address] Oct, [facility] [address] [id number] [address] [place] [address], [place] [address] Oct, [facility] [address] [id number] [address] [place] [address], [place] [address] Sep, [facility] [address] [id number] [address] [place] [address], [place] [address] Sep, [facility] [address] [id number] [address] [place] [address], [place] [address] August, [facility] [address] [id number] [address] [place] [address], [place] [address] August, [facility] [address] [id number] [address] [place] [address], [place] [address] Jul, [facility] [address] [id number] [address] [place] [address], [place] [address] Jun, [facility] [address] [id number] [address] [place] [address], [place] [address] Jun, [facility] [address] [id number] [address] [place] [address], [place] [address] Jun, [facility] [address] [id number] [address] [place] [address], [place] [address] Jun, [facility] [address] [id number] [address] [place] [address], [place] [address] Jun, [facility] [address] [id number] [address] [place] [address], [place] [address] May, [facility] [address] [id number] [address] [place] [address], [place] [address] May, [facility] [address] [id number] [address] [place] [address], [place] [address] 20 May, 2011 [facility] [address] [id number] [address] [place] [address], [place] [address] 14 May, 2011 [facility] [address] [id number] [address] [place] [address], [place] [address] 13 May, 2011 [facility] [address] [id number] [address] [place] [address], [place] [address] 03 May, 2011 [facility] [address] [id number] [address] [place] [address], [place] [address] 02 May, 2011 [facility] [address] [id number] [address] [place] [address], [place] [address] May, [facility] [address] [id number] [address] [place] [address], [place] [address] Apr, [facility] [address] [id number] [address] [place] [address], [place] [address] Mar, [facility] [address] [id number] [address] [place] [address], [place] [address] Mar, [facility] [address] [id number] [address] [place] [address], [place] [address] Mar, [facility] [address] [id number] [address] [place] [address], [place] [address] 15 Mar, 2011 [facility] [address] [id number] [address] [place] [address], [place] [address] Mar, [facility] [address] [id number] [address] [place] [address], [place] [address] 17 Jan, 2011 [facility] [address] [id number] [address] [place] [address], [place] [address] Jan, [facility] [address] [id number] [address] [place] [address], [place] [address] Jan, [facility] [address] [id number] [address] [place] [address], [place] [address] August, [facility] [address] [id number] [address] [place] [address], [place] [address] 13 Mar, 2010 [facility] [address] [id number] [address] [address] Feb, [facility] [address] [facility] [id number] [address] [place] [address] Jan, [facility] [address] [facility] [id number] [address] [place] [address] Jan, IMMUNIZATIONS No Known Immunizations SOCIAL HISTORY [...]
--- OUTSIDE RECORDS SUMMARY | 2019-11-12 16:22 | XMS REPORT ---
Author Author Talia HUDSON Organization [facility] [place] Address [address] [place] [address] Care Team Providers Care Automatic I Threading Machine Feeder Name Role Phone KATIE HUDSON Unavailable PROBLEMS Type Condition ICD9-CM Code LPV64-YM Code Onset Dates Condition S tatus SNOMED Code Problem Diabetes E11.9 Active 98030651 Problem Arthritis M19.90 Active 9068375 Problem Morbid obesity E66.01 Active 86334 6002 Problem Venous insufficiency I87.2 Active 37995426 Problem CAD (coronary artery disease) I25.10 Active 42358480 Problem Other chronic pain G89.29 Active 8 3877176 Problem Hyperlipemia E78.5 Active 7565555 4 Problem Osteoarthritis of knees, bilateral M17.0 Active 844660581 Problem Essential hypertension I10 Active 76959039 Problem Type 2 diabetes mellitus wit h other specified complication, without long-term current use of insulin E11.69 Active 98860156 ALLERGIES No Information ENCOUNTERS Encounter Location Date Diagnosis [place] [address] [address] [facility] [id number] [address] [place] [phone] Oct, Type 2 diabetes mellitus wit h other specified complication, without long-term current use of insulin E11.69 ; Venous insufficiency I87.2 ; Low back pain M54.5 and Other chronic pain G89.29 [place] [address] [facility] [id number] [address] [place] [phone] Oct, [facility] [place] [address] [facility] [id number] [address] [place] [id number] Sep, [place] [address] [address] [facility] [id number] [address] [place] [phone] August, [facility] [place] [address] [facility] [id number] [address] [place] [phone] August, [facility] [address] [id number] [address] [place] [address], [place] [address] August, [facility] [place] [address] [id number] [address] [place] [address], [place] [address] August, [facility] [address] [id number] [address] [place] [address], [place] [address] August, [facility] [place] [address] [id number] [address] [place] [phone] August, [facility] [place] [address] [id number] [address] [place] [address], [place] [address] August, [facility] [place] [address] [id number] [address] [place] [id number] August, Diabetes E11.9 [facility] [place] [address] [id number] [address] [place] [phone] August, [facility] [place] [address] [id number] [address] [place] [phone] August, [facility] [place] [address] [id number] [address] [place] [id number] August, [facility] [place] [address] [id number] [address] [place] [id number] Jul, [facility] [place] [address] [id number] [address] [place] [phone] Jul, [facility] [place] [address] [id number] [address] [place] [phone] 15 Jul, 2019 [facility] [place] [address] [id number] [address] [place] [id number] 10 Jul, 2019 [facility] [place] [address] [id number] [address] [place] [phone] 16 Jun, 2019 [facility] [place] [address] [id number] [address] [place] [phone] 16 Jun, 2019 [facility] [place] [address] [id number] [address] [place] [phone] Jun, Diabetes E11.9 ; Skin infect ion L08.9 and Essential hypertension I10 [facility] [place] [address] [address] May, [facility] [place] [address] [facility] [id number] [address] [place] [phone] May, [facility] [place] [address] [address] May, [facility] [place] [address] [place] [id number] [place] [phone] Apr, [facility] [place] [address] [address] Mar, [facility] [place] [address] [address] Mar, [facility] [place] [address] [address] Feb, [facility] [place] [address] [address] Nov, [facility] [place] [address] [address] Nov, Diabetes E11.9 and Syncope, unspecified syncope type R55 [place] [address] [address] Nov, Osteoarthritis of knees, natan ateral M17.0 [facility] [place] [address] [place] [id number] [address] [place] [phone] Oct, Diabetes E11.9 ; CAD (guardado ry artery disease) I25.10 ; Essential hypertension I10 and Hyperlipemia E78.5 [facility] [place] [address] [place] [id number] [address] [place] [phone] Sep, [facility] [place] [address] [place] [id number] [place] [address] Jul, [facility] [place] [address] [facility] [id number] [address] [place] [phone] Apr, [facility] [place] [address] [address] Mar, Pustular lesion L08.9 and En counter for immunization Z23 [facility] [place] [address] [place] [id number] [place] [phone] Feb, [facility] [place] [address] [place] [id number] [place] [phone] Dec, [facility] [place] [address] [place] [id number] [place] [phone] Dec, [facility] [place] [address] [address] Dec, Diabetes E11.9 ; Essential h ypertension I10 ; Arthritis M19.90 ; Urinary frequency R35.0 ; Routine adult health maintenance Z00.00 and BMI 45.0- 49.9, adult Z68.42 [facility] [place] [address] [address] Dec, [facility] [place] [address] [address] Dec, [facility] [place] [address] [address] Oct, [facility] [place] [address] [place] [id number] [place] [phone] Sep, Diabetes E11.9 [facility] [place] [address] [place] [id number] [address] [place] [phone] Sep, Diabetes E11.9 ; Hyperlipemi a E78.5 ; CAD (coronary artery disease) I25.10 ; Essential hypertension I10 and BMI 45.0-49.9, adult Z68.42 [facility] [place] [address] [place] [id number] [address] [place] [phone] Sep, [place] [address] [facility] [id number] [address] [place] [phone] August, [facility] [place] [address] [facility] [id number] [address] [place] [id number] Jan, Dysuria R30.0 [place] [address] [address] [place] [id number] [address] [place] [phone] Jan, Dysuria R30.0 [facility] [place] [address] [place] [id number] [address] [place] [phone] Jan, Osteoarthritis of knees, natan ateral M17.0 [place] [address] [address] [place] [id number] [address] [place] [phone] Nov, Dysuria R30.0 [place] [address] [address] [facility] [id number] [address] [place] [id number] Oct, Blood in urine R31.9 ; Dysur ia R30.0 ; Pharyngeal dysphagia R13.13 ; Acute cystitis with hematuria N30.01 ; CAD (coronary artery disease) I25.10 and Diabetes E11.9 [place] [address] [address] [facility] [id number] [address] [place] [phone] Oct, [place] [address] [address] [facility] [id number] [address] [place] [phone] Sep, Arthritis M19.90 ; Blood in urine R31.9 ; Diabetes E11.9 ; Acute cystitis with hematuria N30.01 and Pharyngoesophageal dysphagia R13.14 [facility] [place] [address] [facility] [id number] [address] [place] [phone] 29 Sep, 2016 Osteoarthritis of knees, natan ateral M17.0 [place] [address] [address] [place] [id number] [address] [place] [phone] Sep, Osteoarthritis of knees, natan ateral M17.0 [place] [address] [address] [place] [id number] [address] [place] [address] August, Arthritis M19.90 [place] [address] [id number] [address] [place] [id number] Jul, Arthritis M19.90 [facility] [place] [address] [id number] [address] [place] [phone] Jun, Arthritis M19.90 [facility] [place] [address] [id number] [address] [place] [phone] Jun, [facility] [place] [address] [id number] [address] [place] [id number] Jun, [facility] [place] [address] [id number] [address] [place] [address] May, Diabetes E11.9 ; Dysuria R30 .0 and Arthritis M19.90 [facility] [place] [address] [id number] [address] [place] [phone] Apr, [facility] [place] [address] [id number] [address] [place] [phone] Apr, Arthritis M19.90 [facility] [place] [address] [id number] [address] [place] [id number] Mar, Arthritis M19.90 [facility] [place] [address] [id number] [address] [place] [phone] Feb, [facility] [place] [address] [id number] [address] [place] [phone] Jan, [facility] [place] [address] [id number] [address] [place] [address] Dec, Diabetes E11.9 and Arthritis M19.90 [facility] [place] [address] [id number] [address] [place] [id number] Dec, [facility] [place] [address] [facility] [id number] [address] [place] [id number] Nov, Arthritis M19.90 [facility] [place] [address] [id number] [address] [place] [id number] Nov, [facility] [place] [address] [facility] [id number] [address] [place] [id number] Oct, Arthritis M19.90 [facility] [place] [address] [facility] [id number] [address] [place] [id number] Sep, Osteoarthritis of knees, natan ateral M17.0 [facility] [place] [address] [facility] [id number] [address] [place] [address] Sep, Osteoarthritis of knees, natan ateral M17.0 [place] [address] [address] [facility] [id number] [address] [place] [id number] August, Arthritis M19.90 [place] [address] [address] [facility] [id number] [address] [place] [phone] August, [place] [address] [address] [facility] [id number] [address] [place] [id number] Jul, Hyperlipemia E78.5 [place] [address] [address] [place] [id number] [address] [place] [address] Jul, Encounter for well woman exa m Z01.419 ; Morbid obesity E66.01 ; Encounter for screening for malignant neoplasm of cervix Z12.4 and Encounter for screening mammogram for breast cancer Z12.31 [place] [address] [address] [place] [id number] [address] [place] [address] Jul, Arthritis M19.90 ; Diabetes E11.9 ; Blood in urine R31.9 and UTI (urinary tract infection) N39.0 [place] [address] [address] [facility] [id number] [address] [place] [id number] Jul, [place] [address] [address] [facility] [id number] [address] [place] [address] Jun, Arthritis M19.90 [place] [address] [address] [facility] [id number] [address] [place] [id number] May, Arthritis M19.90 [place] [address] [address] [facility] [id number] [address] [place] [id number] May, [facility] [place] [address] [id number] [address] [place] [phone] Apr, [facility] [place] [address] [facility] [id number] [address] [place] [id number] Apr, Arthritis M19.90 ; Diabetes E11.9 and Morbid obesity E66.01 [facility] [place] [address] [facility] [id number] [address] [place] [phone] Apr, [facility] [place] [address] [facility] [id number] [address] [place] [phone] Apr, Dyspareunia N94.1 [facility] [place] [address] [facility] [id number] [address] [place] [phone] Apr, [facility] [place] [address] [facility] [id number] [address] [place] [phone] Apr, [facility] [place] [address] [facility] [id number] [address] [place] [id number] Apr, Osteoarthritis of knees, natan ateral M17.0 [facility] [place] [address] [facility] [id number] [address] [place] [phone] Apr, Diabetes E11.9 and CAD (elysia nary artery disease) I25.10 [facility] [place] [address] [facility] [id number] [address] [place] [id number] Mar, [facility] [place] [address] [facility] [id number] [address] [place] [id number] Feb, [facility] [place] [address] [facility] [id number] [address] [place] [id number] Jan, [facility] [place] [address] [facility] [id number] [address] [place] [phone] Jan, [facility] [place] [address] [facility] [id number] [address] [place] [id number] Jan, [facility] [place] [address] [facility] [id number] [address] [place] [id number] Jan, Osteoarthritis of knees, natan ateral M17.0 [facility] [place] [address] [id number] [address] [place] [id number] [address], [address] [facility] [address] [id number] [address] [place] [id number] Dec, [facility] [place] [address] [id number] [address] [place] [id number] Dec, [facility] [place] [address] [id number] [address] [place] [id number] 08 Dec, 2014 Diabetes mellitus 250.00 and UTI (urinary tract infection) 599.0 [facility] [place] [address] [id number] [address] [place] [id number] Dec, [facility] [place] [address] [id number] [address] [place] [phone] Nov, [facility] [place] [address] [id number] [address] [place] [phone] Oct, [facility] [place] [address] [id number] [address] [place] [id number] Oct, [facility] [place] [address] [id number] [address] [place] [id number] Oct, [facility] [place] [address] [id number] [address] [place] [phone] Oct, [facility] [address] [id number] [address] [place] [phone] Oct, [facility] [address] [id number] [address] [place] [phone] Sep, [facility] [address] [id number] [address] [place] [id number] August, [facility] [address] [id number] [address] [place] [id number] August, [facility] [place] [address] [id number] [address] [place] [phone] August, [facility] [address] [id number] [address] [place] [address], [place] [address] Jul, [facility] [address] [id number] [address] [place] [address], [place] [address] Jul, [facility] [address] [id number] [address] [place] [address], [place] [address] Jul, [facility] [address] [id number] [address] [place] [address], [place] [id number] Jun, [facility] [address] [id number] [address] [place] [address], [place] [address] Jun, [facility] [address] [id number] [address] [place] [address], [place] [address] Jun, [facility] [address] [id number] [address] [place] [address], [place] [address] Jun, [facility] [address] [id number] [address] [place] [address], [place] [address] Jun, [facility] [address] [id number] [address] [place] [address], [place] [address] Jun, [facility] [address] [id number] [address] [place] [address], [place] [address] Jun, [facility] [address] [id number] [address] [place] [address], [place] [address] Jun, [facility] [address] [id number] [address] [place] [address], [place] [address] May, [facility] [address] [id number] [address] [place] [address], [place] [address] May, [facility] [address] [id number] [address] [place] [address], [place] [address] May, [facility] [address] [id number] [address] [place] [address], [place] [address] May, [facility] [address] [id number] [address] [place] [address], [place] [address] May, 2014 [facility] [address] [id number] [address] [place] [address], [place] [address] May, 2014 [facility] [address] [id number] [address] [place] [address], [place] [address] May, 2014 [facility] [address] [id number] [address] [place] [address], [place] [address] May, 2014 [facility] [address] [id number] [address] [place] [address], [place] [address] May, 2014 [facility] [address] [id number] [address] [place] [address], [place] [address] May, 2014 [facility] [address] [id number] [address] [place] [address], [place] [address] May, 2014 [facility] [address] [id number] [address] [place] [address], [place] [address] May, [facility] [address] [id number] [address] [place] [address], [place] [address] Apr, [facility] [address] [id number] [address] [place] [address], [place] [address] Apr, [facility] [address] [id number] [address] [place] [address], [place] [address] Mar, [facility] [address] [id number] [address] [place] [address], [place] [address] Mar, [facility] [address] [id number] [address] [place] [address], [place] [address] Mar, [facility] [address] [id number] [address] [place] [address], [place] [address] Mar, [facility] [address] [id number] [address] [place] [address], [place] [address] Mar, [facility] [address] [id number] [address] [place] [address], [place] [address] 16 Mar, 2014 [facility] [address] [id number] [address] [place] [address], [place] [address] Feb, [facility] [address] [id number] [address] [place] [address], [place] [address] Feb, [facility] [address] [id number] [address] [place] [address], [place] [address] Feb, [facility] [address] [id number] [address] [place] [address], [place] [address] Feb, [facility] [address] [id number] [address] [place] [address], [place] [address] Feb, [facility] [address] [id number] [address] [place] [address], [place] [address] Feb, [facility] [address] [id number] [address] [place] [address], [place] [address] Feb, [facility] [address] [id number] [address] [place] [address], [place] [address] Feb, [facility] [address] [id number] [address] [place] [address], [place] [address] Feb, [facility] [address] [id number] [address] [place] [address], [place] [address] Jan, [facility] [address] [id number] [address] [place] [address], [place] [address] Jan, [facility] [address] [id number] [address] [place] [address], [place] [address] Jan, [facility] [address] [id number] [address] [place] [address], [place] [address] Jan, [facility] [address] [id number] [address] [place] [address], [place] [address] Jan, [facility] [address] [id number] [address] [place] [address], [place] [address] Jan, [facility] [address] [id number] [facility] [place] [address] 17 Jan, 2014 [facility] [address] [id number] [address] [place] [address], [place] [address] 17 Jan, 2014 [facility] [address] [id number] [address] [place] [address], [place] [address] Jan, [facility] [address] [id number] [address] [place] [address], [place] [address] Jan, [facility] [address] [id number] [address] [place] [address], [place] [address] Dec, [facility] [address] [id number] [address] [place] [address], [place] [address] Dec, [facility] [address] [id number] [address] [place] [address], [place] [address] Dec, [facility] [address] [id number] [address] [place] [address], [place] [address] Dec, [facility] [address] [id number] [address] [place] [address], [place] [address] Nov, [facility] [address] [id number] [address] [place] [address], [place] [address] Nov, [facility] [address] [id number] [address] [place] [address], [place] [address] Nov, [facility] [address] [id number] [address] [place] [address], [place] [address] Nov, [facility] [address] [id number] [address] [place] [address], [place] [address] Nov, [facility] [address] [id number] [address] [place] [address], [place] [address] Nov, [facility] [address] [id number] [address] [place] [address], [place] [address] Nov, [facility] [address] [id number] [address] [place] [address], [place] [address] Nov, [facility] [address] [id number] [facility] [place] [address] Nov, [facility] [address] [id number] [address] [place] [address], [place] [address] Oct, [facility] [address] [id number] [facility] [place] [address] Oct, [facility] [address] [id number] [address] [place] [address], [place] [address] Sep, [facility] [address] [id number] [address] [place] [address], [place] [address] Sep, [facility] [address] [id number] [address] [place] [address], [place] [address] Sep, [facility] [address] [id number] [address] [place] [address], [place] [address] Sep, [facility] [address] [id number] [address] [place] [address], [place] [address] Sep, [facility] [address] [id number] [address] [place] [address], [place] [address] Sep, [facility] [address] [id number] [address] [place] [address], [place] [address] Sep, [facility] [address] [id number] [address] [place] [address], [place] [address] Sep, [facility] [address] [id number] [address] [place] [address], [place] [address] Sep, [facility] [address] [id number] [address] [place] [address], [place] [address] Sep, [facility] [address] [id number] [address] [place] [address], [place] [address] Sep, [facility] [address] [id number] [address] [place] [address], [place] [address] Sep, [facility] [address] [id number] [address] [place] [address], [place] [address] Sep, [facility] [address] [id number] [address] [place] [address], [place] [address] Sep, [facility] [address] [id number] [address] [place] [address], [place] [address] August, [facility] [address] [id number] [address] [place] [address], [place] [address] August, [facility] [address] [id number] [address] [place] [address], [place] [address] August, [facility] [address] [id number] [address] [place] [address], [place] [address] August, [facility] [address] [id number] [address] [place] [address], [place] [address] Jul, [facility] [address] [id number] [address] [place] [address], [place] [address] Jul, [facility] [address] [id number] [address] [place] [address], [place] [address] Jul, [facility] [address] [id number] [address] [place] [address], [place] [address] Jul, [facility] [address] [id number] [address] [place] [address], [place] [address] Jun, [facility] [address] [id number] [address] [place] [address], [place] [address] Jun, [facility] [address] [id number] [address] [place] [address], [place] [address] May, [facility] [address] [id number] [address] [place] [address], [place] [address] May, [facility] [address] [id number] [address] [place] [address], [place] [address] May, [facility] [address] [id number] [address] [place] [address], [place] [address] May, [facility] [address] [id number] [address] [place] [address], [place] [address] May, [facility] [address] [id number] [address] [place] [address], [place] [address] May, [facility] [address] [id number] [address] [place] [address], [place] [address] May, [facility] [address] [id number] [address] [place] [address], [place] [address] May, [facility] [address] [id number] [address] [place] [address], [place] [address] May, [facility] [address] [id number] [address] [place] [address], [place] [address] Apr, [facility] [address] [id number] [address] [place] [address], [place] [address] Apr, [facility] [address] [id number] [address] [place] [address], [place] [address] Apr, [facility] [address] [id number] [address] [place] [address], [place] [address] Apr, [facility] [address] [id number] [address] [place] [address], [place] [address] Apr, [facility] [address] [id number] [address] [place] [address], [place] [address] Mar, [facility] [address] [id number] [address] [place] [address], [place] [address] Mar, [facility] [address] [id number] [address] [place] [address], [place] [address] Feb, [facility] [address] [id number] [address] [place] [address], [place] [address] Feb, [facility] [address] [id number] [address] [place] [address], [place] [address] Feb, [facility] [address] [id number] [address] [place] [address], [place] [address] Feb, [facility] [address] [id number] [address] [place] [address], [place] [address] Feb, [facility] [address] [id number] [address] [place] [address], [place] [address] Feb, [facility] [address] [id number] [address] [place] [address], [place] [address] Feb, [facility] [address] [id number] [address] [place] [address], [place] [address] Feb, [facility] [address] [id number] [address] [place] [address], [place] [address] Feb, [facility] [address] [id number] [address] [place] [address], [place] [address] Jan, [facility] [address] [id number] [address] [place] [address], [place] [address] Jan, [facility] [address] [id number] [address] [place] [address], [place] [address] Jan, [facility] [address] [id number] [address] [place] [address], [place] [address] Jan, [facility] [address] [id number] [address] [place] [address], [place] [address] Jan, [facility] [address] [id number] [address] [place] [address], [place] [address] Dec, [facility] [address] [id number] [address] [place] [address], [place] [address] Dec, [facility] [address] [id number] [address] [place] [address], [place] [address] Nov, [facility] [address] [id number] [address] [place] [address], [place] [address] Nov, [facility] [address] [id number] [address] [place] [address], [place] [address] Oct, [facility] [address] [id number] [address] [place] [address], [place] [address] Oct, [facility] [address] [id number] [address] [place] [address], [place] [address] Oct, [facility] [address] [id number] [address] [place] [address], [place] [address] Sep, [facility] [address] [id number] [address] [place] [address], [place] [address] Sep, [facility] [address] [id number] [address] [place] [address], [place] [address] Sep, [facility] [address] [id number] [address] [place] [address], [place] [address] August, [facility] [address] [id number] [address] [place] [address], [place] [address] August, [facility] [address] [id number] [address] [place] [address], [place] [address] August, [facility] [address] [id number] [address] [place] [address], [place] [address] August, [facility] [address] [id number] [address] [place] [address], [place] [address] Jul, [facility] [address] [id number] [address] [place] [address], [place] [address] Jun, [facility] [address] [id number] [address] [place] [address], [place] [address] Jun, [facility] [address] [id number] [address] [place] [address], [place] [address] 05 Jun, 2012 [facility] [address] [id number] [address] [place] [address], [place] [address] May, [facility] [address] [id number] [address] [place] [address], [place] [address] May, [facility] [address] [id number] [address] [place] [address], [place] [address] 04 May, 2012 [facility] [address] [id number] [address] [place] [address], [place] [address] May, [facility] [address] [id number] [address] [place] [address], [place] [address] Apr, [facility] [address] [id number] [address] [place] [address], [place] [address] Apr, [facility] [address] [id number] [address] [place] [address], [place] [address] Apr, [facility] [address] [id number] [address] [place] [address], [place] [address] Apr, [facility] [address] [id number] [address] [place] [address], [place] [address] Apr, [facility] [address] [id number] [address] [place] [address], [place] [address] Mar, [facility] [address] [id number] [address] [place] [address], [place] [address] Mar, [facility] [address] [id number] [address] [place] [address], [place] [address] Mar, [facility] [address] [id number] [address] [place] [address], [place] [address] Mar, [facility] [address] [id number] [address] [place] [address], [place] [address] Mar, [facility] [address] [id number] [address] [place] [address], [place] [address] Mar, [facility] [address] [id number] [address] [place] [address], [place] [address] Mar, [facility] [address] [id number] [address] [place] [address], [place] [address] Feb, [facility] [address] [id number] [address] [place] [address], [place] [address] Feb, [facility] [address] [id number] [address] [place] [address], [place] [address] Feb, [facility] [address] [id number] [address] [place] [address], [place] [address] Feb, [facility] [address] [id number] [address] [place] [address], [place] [address] Feb, [facility] [address] [id number] [address] [place] [address], [place] [address] Feb, [facility] [address] [id number] [address] [place] [address], [place] [address] Feb, [facility] [address] [id number] [address] [place] [address], [place] [address] Feb, [facility] [address] [id number] [address] [place] [address], [place] [address] Jan, [facility] [address] [id number] [address] [place] [address], [place] [address] Jan, [facility] [address] [id number] [address] [place] [address], [place] [address] Jan, [facility] [address] [id number] [address] [place] [address], [place] [address] Jan, [facility] [address] [id number] [address] [place] [address], [place] [address] 27 Dec, 2011 [facility] [address] [id number] [address] [place] [address], [place] [address] 25 Sep2011 [facility] [address] [id number] [address] [place] [address] [address] 18 Sep2011 [facility] [address] [id number] [address] [place] [address], [place] [address] 13 Sep2011 [facility] [address] [id number] [address] [place] [address] [address] 11 Sep2011 [facility] [address] [id number] [address] [place] [address], [place] [address] Oct, [facility] [address] [id number] [address] [place] [address], [place] [address] Oct, [facility] [address] [id number] [address] [place] [address], [place] [address] Sep, [facility] [address] [id number] [address] [place] [address], [place] [address] Sep, [facility] [address] [id number] [address] [place] [address], [place] [address] August, [facility] [address] [id number] [address] [place] [address], [place] [address] August, [facility] [address] [id number] [address] [place] [address], [place] [address] Jul, [facility] [address] [id number] [address] [place] [address], [place] [address] Jun, [facility] [address] [id number] [address] [place] [address], [place] [address] Jun, [facility] [address] [id number] [address] [place] [address], [place] [address] Jun, [facility] [address] [id number] [address] [place] [address], [place] [address] Jun, [facility] [address] [id number] [address] [place] [address], [place] [address] Jun, [facility] [address] [id number] [address] [place] [address], [place] [address] May, [facility] [address] [id number] [address] [place] [address], [place] [address] May, [facility] [address] [id number] [address] [place] [address], [place] [address] 20 May, 2011 [facility] [address] [id number] [address] [place] [address], [place] [address] 14 May, 2011 [facility] [address] [id number] [address] [place] [address], [place] [address] 13 May, 2011 [facility] [address] [id number] [address] [place] [address], [place] [address] 03 May, 2011 [facility] [address] [id number] [address] [place] [address], [place] [address] 02 May, 2011 [facility] [address] [id number] [address] [place] [address], [place] [address] May, [facility] [address] [id number] [address] [place] [address], [place] [address] Apr, [facility] [address] [id number] [address] [place] [address], [place] [address] Mar, [facility] [address] [id number] [address] [place] [address], [place] [address] Mar, [facility] [address] [id number] [address] [place] [address], [place] [address] Mar, [facility] [address] [id number] [address] [place] [address], [place] [id number] 15 Mar, 2011 [facility] [address] [id number] [address] [place] [address], [place] [id number] Mar, [facility] [address] [id number] [address] [place] [address], [place] [id number] 17 Jan, 2011 [facility] [address] [id number] [address] [place] [address], [place] [address] Jan, [facility] [address] [id number] [address] [place] [address], [place] [address] Jan, [facility] [address] [id number] [address] [place] [address], [place] [address] August, [facility] [address] [id number] [address] [place] [address], [place] [id number] 13 Mar, 2010 [facility] [address] [id number] [address] [address] Feb, [facility] [place] [address] [facility] [id number] [address] [place] [id number] Jan, [facility] [place] [address] [facility] [id number] [address] [place] [id number] Jan, IMMUNIZATIONS No Known Immunizations SOCIAL HISTORY [...]
--- OUTSIDE RECORDS SUMMARY | 2019-11-12 16:22 | XMS REPORT ---
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 Name Role Phone KATIE HUDSON Unavailable PROBLEMS Type Condition ICD9-CM Code XHS44-ZN Code Onset Dates Condition S tatus SNOMED Code Problem Diabetes E11.9 Active 60551743 Problem Arthritis M19.90 Active 5617706 Problem Morbid obesity E66.01 Active 48421 6002 Problem Venous insufficiency I87.2 Active 68670583 Problem CAD (coronary artery disease) I25.10 Active 42641878 Problem Other chronic pain G89.29 Active 8 1321195 Problem Hyperlipemia E78.5 Active 4133617 4 Problem Osteoarthritis of knees, bilateral M17.0 Active 766424716 Problem Essential hypertension I10 Active 98784001 Problem Type 2 diabetes mellitus wit h other specified complication, without long-term current use of insulin E11.69 Active 19463419 ALLERGIES No Information ENCOUNTERS Encounter Location Date Diagnosis [place] [address] [address] [facility] [id number] [address] [place] [address] Oct, Type 2 diabetes mellitus wit h other specified complication, without long-term current use of insulin E11.69 ; Venous insufficiency I87.2 ; Low back pain M54.5 and Other chronic pain G89.29 [place] [address] [facility] [id number] [address] [place] [phone] Oct, [facility] [address] [facility] [id number] [address] [place] [address] Sep, [place] [address] [address] [facility] [id number] [address] [place] [address] August, [facility] [address] [facility] [id number] [address] [place] [address] August, [facility] [address] [id number] [address] [place] [address], [place] [address] August, [facility] [address] [id number] [address] [place] [address], [place] [id number] August, [facility] [address] [id number] [address] [place] [address], [place] [address] August, [facility] [address] [id number] [address] [place] [address] August, [facility] [address] [id number] [address] [place] [address], [place] [address] August, [facility] [address] [id number] [address] [place] [address] August, Diabetes E11.9 [facility] [address] [id number] [address] [place] [id number] August, [facility] [address] [id number] [address] [place] [address] August, [facility] [address] [id number] [address] [place] [phone] August, [facility] [address] [id number] [address] [place] [address] Jul, [facility] [address] [id number] [address] [place] [phone] Jul, [facility] [address] [id number] [address] [place] [id number] 15 Jul, 2019 [facility] [address] [id number] [address] [place] [phone] 10 Jul, 2019 [facility] [address] [id number] [address] [place] [id number] 16 Jun, 2019 [facility] [address] [id number] [address] [place] [id number] 16 Jun, 2019 [facility] [address] [id number] [address] [place] [address] Jun, Diabetes E11.9 ; Skin infect ion L08.9 and Essential hypertension I10 [facility] [address] [id number] May, [facility] [address] [facility] [id number] [address] [place] [address] May, [facility] [address] [address] May, [facility] [address] [place] [id number] [place] [address] Apr, [facility] [address] [address] Mar, [facility] [address] [id number] Mar, [facility] [address] [id number] Feb, [facility] [address] [address] Nov, [facility] [address] [address] Nov, Diabetes E11.9 and Syncope, unspecified syncope type R55 [place] [address] [address] Nov, Osteoarthritis of knees, natan ateral M17.0 [facility] [address] [place] [id number] [address] [place] [address] Oct, Diabetes E11.9 ; CAD (guardado ry artery disease) I25.10 ; Essential hypertension I10 and Hyperlipemia E78.5 [facility] [address] [place] [id number] [address] [place] [address] Sep, [facility] [address] [place] [id number] [place] [address] Jul, [facility] [address] [facility] [id number] [address] [place] [address] Apr, [facility] [address] [address] Mar, Pustular lesion L08.9 and En counter for immunization Z23 [facility] [address] [place] [id number] [place] [address] Feb, [facility] [address] [place] [id number] [place] [address] Dec, [facility] [address] [place] [id number] [place] [address] Dec, [facility] [address] [address] Dec, Diabetes E11.9 ; Essential h ypertension I10 ; Arthritis M19.90 ; Urinary frequency R35.0 ; Routine adult health maintenance Z00.00 and BMI 45.0- 49.9, adult Z68.42 [facility] [address] [address] Dec, [facility] [address] [address] Dec, [facility] [address] [address] Oct, [facility] [address] [place] [id number] [place] [address] Sep, Diabetes E11.9 [facility] [address] [place] [id number] [address] [place] [address] Sep, Diabetes E11.9 ; Hyperlipemi a E78.5 ; CAD (coronary artery disease) I25.10 ; Essential hypertension I10 and BMI 45.0-49.9, adult Z68.42 [facility] [address] [place] [id number] [address] [place] [address] Sep, [place] [address] [facility] [id number] [address] [place] [address] August, [facility] [address] [facility] [id number] [address] [place] [address] Jan, Dysuria R30.0 [place] [address] [address] [place] [id number] [address] [place] [address] Jan, Dysuria R30.0 [facility] [address] [place] [id number] [address] [place] [address] Jan, Osteoarthritis of knees, natan ateral M17.0 [place] [address] [address] [place] [id number] [address] [place] [address] Nov, Dysuria R30.0 [place] [address] [address] [facility] [id number] [address] [place] [address] Oct, Blood in urine R31.9 ; Dysur ia R30.0 ; Pharyngeal dysphagia R13.13 ; Acute cystitis with hematuria N30.01 ; CAD (coronary artery disease) I25.10 and Diabetes E11.9 [place] [address] [address] [facility] [id number] [address] [place] [address] Oct, [place] [address] [address] [facility] [id number] [address] [place] [address] Sep, Arthritis M19.90 ; Blood in urine R31.9 ; Diabetes E11.9 ; Acute cystitis with hematuria N30.01 and Pharyngoesophageal dysphagia R13.14 [facility] [address] [facility] [id number] [address] [place] [address] 29 Sep, 2016 Osteoarthritis of knees, natan ateral M17.0 [place] [address] [address] [place] [id number] [address] [place] [address] Sep, Osteoarthritis of knees, natan ateral M17.0 [place] [address] [address] [place] [id number] [address] [place] [address] August, Arthritis M19.90 [place] [address] [id number] [address] [place] [address] Jul, Arthritis M19.90 [facility] [address] [id number] [address] [place] [address] Jun, Arthritis M19.90 [facility] [address] [id number] [address] [place] [address] Jun, [facility] [address] [id number] [address] [place] [address] Jun, [facility] [address] [id number] [address] [place] [address] May, Diabetes E11.9 ; Dysuria R30 .0 and Arthritis M19.90 [facility] [address] [id number] [address] [place] [address] Apr, [facility] [address] [id number] [address] [place] [address] Apr, Arthritis M19.90 [facility] [address] [id number] [address] [place] [address] Mar, Arthritis M19.90 [facility] [address] [id number] [address] [place] [address] Feb, [facility] [address] [id number] [address] [place] [address] Jan, [facility] [address] [id number] [address] [place] [address] Dec, Diabetes E11.9 and Arthritis M19.90 [facility] [address] [id number] [address] [place] [address] Dec, [facility] [address] [facility] [id number] [address] [place] [address] Nov, Arthritis M19.90 [facility] [address] [id number] [address] [place] [address] Nov, [facility] [address] [facility] [id number] [address] [place] [address] Oct, Arthritis M19.90 [facility] [address] [facility] [id number] [address] [place] [address] Sep, Osteoarthritis of knees, natan ateral M17.0 [facility] [address] [facility] [id number] [address] [place] [address] Sep, Osteoarthritis of knees, natan ateral M17.0 [place] [address] [address] [facility] [id number] [address] [place] [address] August, Arthritis M19.90 [place] [address] [address] [facility] [id number] [address] [place] [address] August, [place] [address] [address] [facility] [id number] [address] [place] [address] Jul, Hyperlipemia E78.5 [place] [address] [place] [id number] [address] [place] [address] Jul, Encounter for well woman exa m Z01.419 ; Morbid obesity E66.01 ; Encounter for screening for malignant neoplasm of cervix Z12.4 and Encounter for screening mammogram for breast cancer Z12.31 [place] [address] [place] [id number] [address] [place] [address] Jul, Arthritis M19.90 ; Diabetes E11.9 ; Blood in urine R31.9 and UTI (urinary tract infection) N39.0 [place] [address] [facility] [id number] [address] [place] [address] Jul, [place] [address] [facility] [id number] [address] [place] [address] Jun, Arthritis M19.90 [place] [address] [facility] [id number] [address] [place] [address] May, Arthritis M19.90 [place] [address] [address] [facility] [id number] [address] [place] [address] May, [facility] [address] [id number] [address] [place] [address] Apr, [facility] [address] [facility] [id number] [address] [place] [address] Apr, Arthritis M19.90 ; Diabetes E11.9 and Morbid obesity E66.01 [facility] [address] [facility] [id number] [address] [place] [address] Apr, [facility] [address] [facility] [id number] [address] [place] [address] Apr, Dyspareunia N94.1 [facility] [address] [facility] [id number] [address] [place] [address] Apr, [facility] [address] [facility] [id number] [address] [place] [address] Apr, [facility] [address] [facility] [id number] [address] [place] [address] Apr, Osteoarthritis of knees, natan ateral M17.0 [facility] [address] [facility] [id number] [address] [place] [address] Apr, Diabetes E11.9 and CAD (elysia nary artery disease) I25.10 [facility] [address] [facility] [id number] [address] [place] [address] Mar, [facility] [address] [facility] [id number] [address] [place] [address] Feb, [facility] [address] [facility] [id number] [address] [place] [address] Jan, [facility] [address] [facility] [id number] [address] [place] [address] Jan, [facility] [address] [facility] [id number] [address] [place] [address] Jan, [facility] [address] [facility] [id number] [address] [place] [address] Jan, Osteoarthritis of knees, natan ateral M17.0 [facility] [address] [id number] [address] [place] [address] 30 Dec, 2014 [facility] [address] [id number] [address] [place] [address] Dec, [facility] [address] [id number] [address] [place] [address] Dec, [facility] [address] [id number] [address] [place] [address] 08 Dec, 2014 Diabetes mellitus 250.00 and UTI (urinary tract infection) 599.0 [facility] [address] [id number] [address] [place] [address] Dec, [facility] [address] [id number] [address] [place] [address] Nov, [facility] [address] [id number] [address] [place] [address] Oct, [facility] [address] [id number] [address] [place] [address] Oct, [facility] [address] [id number] [address] [place] [address] Oct, [facility] [address] [id number] [address] [place] [address] Oct, [facility] [address] [id number] [address] [place] [address] Oct, [facility] [address] [id number] [address] [place] [address] Sep, [facility] [address] [id number] [address] [place] [address] August, [facility] [address] [id number] [address] [place] [address] August, [facility] [address] [id number] [address] [place] [address] August, [facility] [address] [id number] [address] [place] [address], [place] [id number] Jul, [facility] [address] [id number] [address] [place] [address], [place] [id number] Jul, [facility] [address] [id number] [address] [place] [address], [place] [address] Jul, [facility] [address] [id number] [address] [place] [address], [place] [id number] Jun, [facility] [address] [id number] [address] [place] [address], [place] [address] Jun, [facility] [address] [id number] [address] [place] [address], [place] [address] Jun, [facility] [address] [id number] [address] [place] [address], [place] [id number] Jun, [facility] [address] [id number] [address] [place] [address], [place] [id number] Jun, [facility] [address] [id number] [address] [place] [address], [place] [address] Jun, [facility] [address] [id number] [address] [place] [address], [place] [id number] Jun, [facility] [address] [id number] [address] [place] [address], [place] [id number] Jun, [facility] [address] [id number] [address] [place] [address], [place] [id number] May, [facility] [address] [id number] [address] [place] [address], [place] [id number] May, [facility] [address] [id number] [address] [place] [address], [place] [id number] May, [facility] [address] [id number] [address] [place] [address], [place] [id number] May, [facility] [address] [id number] [address] [place] [address], [place] [id number] May, 2014 [facility] [address] [id number] [address] [place] [address], [place] [id number] May, 2014 [facility] [address] [id number] [address] [place] [address], [place] [id number] May, 2014 [facility] [address] [id number] [address] [place] [address], [place] [address] May, 2014 [facility] [address] [id number] [address] [place] [address], [place] [id number] May, 2014 [facility] [address] [id number] [address] [place] [address], [place] [id number] May, 2014 [facility] [address] [id number] [address] [place] [address], [place] [address] May, 2014 [facility] [address] [id number] [address] [place] [address], [place] [id number] May, [facility] [address] [id number] [address] [place] [address], [place] [id number] Apr, [facility] [address] [id number] [address] [place] [address], [place] [id number] Apr, [facility] [address] [id number] [address] [place] [address], [place] [id number] Mar, [facility] [address] [id number] [address] [place] [address], [place] [id number] Mar, [facility] [address] [id number] [address] [place] [address], [place] [id number] Mar, [facility] [address] [id number] [address] [place] [address], [place] [id number] Mar, [facility] [address] [id number] [address] [place] [address], [place] [address] Mar, [facility] [address] [id number] [address] [place] [address], [place] [id number] 16 Mar, 2014 [facility] [address] [id number] [address] [place] [address], [place] [id number] Feb, [facility] [address] [id number] [address] [place] [address], [place] [id number] Feb, [facility] [address] [id number] [address] [place] [address], [place] [id number] Feb, [facility] [address] [id number] [address] [place] [address], [place] [id number] Feb, [facility] [address] [id number] [address] [place] [address], [place] [id number] Feb, [facility] [address] [id number] [address] [place] [address], [place] [address] Feb, [facility] [address] [id number] [address] [place] [address], [place] [address] Feb, [facility] [address] [id number] [address] [place] [address], [place] [id number] Feb, [facility] [address] [id number] [address] [place] [address], [place] [id number] Feb, [facility] [address] [id number] [address] [place] [address], [place] [id number] Jan, [facility] [address] [id number] [address] [place] [address], [place] [id number] Jan, [facility] [address] [id number] [address] [place] [address], [place] [id number] Jan, [facility] [address] [id number] [address] [place] [address], [place] [address] Jan, [facility] [address] [id number] [address] [place] [address], [place] [address] Jan, [facility] [address] [id number] [address] [place] [address], [place] [id number] Jan, [facility] [address] [id number] [facility] [id number] 17 Jan, 2014 [facility] [address] [id number] [address] [place] [address], [place] [id number] 17 Jan, 2014 [facility] [address] [id number] [address] [place] [address], [place] [address] Jan, [facility] [address] [id number] [address] [place] [address], [place] [id number] Jan, [facility] [address] [id number] [address] [place] [address], [place] [id number] Dec, [facility] [address] [id number] [address] [place] [address], [place] [id number] Dec, [facility] [address] [id number] [address] [place] [address], [place] [id number] Dec, [facility] [address] [id number] [address] [place] [address], [place] [id number] Dec, [facility] [address] [id number] [address] [place] [address], [place] [id number] Nov, [facility] [address] [id number] [address] [place] [address], [place] [id number] Nov, [facility] [address] [id number] [address] [place] [address], [place] [id number] Nov, [facility] [address] [id number] [address] [place] [address], [place] [address] Nov, [facility] [address] [id number] [address] [place] [address], [place] [address] Nov, [facility] [address] [id number] [address] [place] [address], [place] [id number] Nov, [facility] [address] [id number] [address] [place] [address], [place] [id number] Nov, [facility] [address] [id number] [address] [place] [address], [place] [address] Nov, [facility] [address] [id number] [facility] [id number] Nov, [facility] [address] [id number] [address] [place] [address], [place] [id number] Oct, [facility] [address] [id number] [facility] [address] Oct, [facility] [address] [id number] [address] [place] [address], [place] [address] Sep, [facility] [address] [id number] [address] [place] [address], [place] [id number] Sep, [facility] [address] [id number] [address] [place] [address], [place] [id number] Sep, [facility] [address] [id number] [address] [place] [address], [place] [id number] Sep, [facility] [address] [id number] [address] [place] [address], [place] [id number] Sep, [facility] [address] [id number] [address] [place] [address], [place] [id number] Sep, [facility] [address] [id number] [address] [place] [address], [place] [id number] Sep, [facility] [address] [id number] [address] [place] [address], [place] [id number] Sep, [facility] [address] [id number] [address] [place] [address], [place] [id number] Sep, [facility] [address] [id number] [address] [place] [address], [place] [id number] Sep, [facility] [address] [id number] [address] [place] [address], [place] [address] Sep, [facility] [facility] [address] [id number] [address] [place] [address], [place] [id number] Sep, [facility] [address] [id number] [address] [place] [address], [place] [address] Sep, [facility] [address] [id number] [address] [place] [address], [place] [address] Sep, [facility] [address] [id number] [address] [place] [address], [place] [address] August, [facility] [address] [id number] [address] [place] [address], [place] [address] August, [facility] [address] [id number] [address] [place] [address], [place] [address] August, [facility] [address] [id number] [address] [place] [address], [place] [address] August, [facility] [address] [id number] [address] [place] [address], [place] [address] Jul, [facility] [address] [id number] [address] [place] [address], [place] [id number] Jul, [facility] [address] [id number] [address] [place] [address], [place] [address] Jul, [facility] [address] [id number] [address] [place] [address], [place] [id number] Jul, [facility] [address] [id number] [address] [place] [address], [place] [address] Jun, [facility] [address] [id number] [address] [place] [address], [place] [address] Jun, [facility] [address] [id number] [address] [place] [address], [place] [address] May, [facility] [address] [id number] [address] [place] [address], [place] [address] May, [facility] [address] [id number] [address] [place] [address], [place] [address] May, [facility] [address] [id number] [address] [place] [address], [place] [address] May, [facility] [address] [id number] [address] [place] [address], [place] [id number] May, [facility] [address] [id number] [address] [place] [address], [place] [address] May, [facility] [address] [id number] [address] [place] [address], [place] [address] May, [facility] [address] [id number] [address] [place] [address], [place] [address] May, [facility] [address] [id number] [address] [place] [address], [place] [address] May, [facility] [address] [id number] [address] [place] [address], [place] [address] Apr, [facility] [address] [id number] [address] [place] [address], [place] [address] Apr, [facility] [address] [id number] [address] [place] [address], [place] [address] Apr, [facility] [address] [id number] [address] [place] [address], [place] [address] Apr, [facility] [address] [id number] [address] [place] [address], [place] [address] Apr, [facility] [address] [id number] [address] [place] [address], [place] [address] Mar, [facility] [address] [id number] [address] [place] [address], [place] [address] Mar, [facility] [address] [id number] [address] [place] [address], [place] [address] Feb, [facility] [address] [id number] [address] [place] [address], [place] [address] Feb, [facility] [address] [id number] [address] [place] [address], [place] [id number] Feb, [facility] [address] [id number] [address] [place] [address], [place] [address] Feb, [facility] [address] [id number] [address] [place] [address], [place] [id number] Feb, [facility] [address] [id number] [address] [place] [address], [place] [address] Feb, [facility] [address] [id number] [address] [place] [address], [place] [id number] Feb, [facility] [address] [id number] [address] [place] [address], [place] [address] Feb, [facility] [address] [id number] [address] [place] [address], [place] [address] Feb, [facility] [address] [id number] [address] [place] [address], [place] [id number] Jan, [facility] [address] [id number] [address] [place] [address], [place] [address] Jan, [facility] [address] [id number] [address] [place] [address], [place] [id number] Jan, [facility] [address] [id number] [address] [place] [address], [place] [id number] Jan, [facility] [address] [id number] [address] [place] [address], [place] [address] Jan, [facility] [address] [id number] [address] [place] [address], [place] [id number] Dec, [facility] [address] [id number] [address] [place] [address], [place] [address] Dec, [facility] [address] [id number] [address] [place] [address], [place] [address] Nov, [facility] [address] [id number] [address] [place] [address], [place] [address] Nov, [facility] [address] [id number] [address] [place] [address], [place] [id number] Oct, [facility] [address] [id number] [address] [place] [address], [place] [address] Oct, [facility] [address] [id number] [address] [place] [address], [place] [address] Oct, [facility] [address] [id number] [address] [place] [address], [place] [id number] Sep, [facility] [address] [id number] [address] [place] [address], [place] [address] Sep, [facility] [address] [id number] [address] [place] [address], [place] [id number] Sep, [facility] [address] [id number] [address] [place] [address], [place] [address] August, [facility] [address] [id number] [address] [place] [address], [place] [address] August, [facility] [address] [id number] [address] [place] [address], [place] [address] August, [facility] [address] [id number] [address] [place] [address], [place] [address] August, [facility] [address] [id number] [address] [place] [address], [place] [address] Jul, [facility] [address] [id number] [address] [place] [address], [place] [address] Jun, [facility] [address] [id number] [address] [place] [address], [place] [address] Jun, [facility] [address] [id number] [address] [place] [address], [place] [address] 05 Jun, 2012 [facility] [address] [id number] [address] [place] [address], [place] [address] May, [facility] [address] [id number] [address] [place] [address], [place] [address] May, [facility] [address] [id number] [address] [place] [address], [place] [id number] 04 May, 2012 [facility] [address] [id number] [address] [place] [address], [place] [id number] May, [facility] [address] [id number] [address] [place] [address], [place] [address] Apr, [facility] [address] [id number] [address] [place] [address], [place] [address] Apr, [facility] [address] [id number] [address] [place] [address], [place] [address] Apr, [facility] [address] [id number] [address] [place] [address], [place] [address] Apr, [facility] [address] [id number] [address] [place] [address], [place] [address] Apr, [facility] [address] [id number] [address] [place] [address], [place] [address] Mar, [facility] [address] [id number] [address] [place] [address], [place] [address] Mar, [facility] [address] [id number] [address] [place] [address], [place] [id number] Mar, [facility] [address] [id number] [address] [place] [address], [place] [address] Mar, [facility] [address] [id number] [address] [place] [address], [place] [address] Mar, [facility] [address] [id number] [address] [place] [address], [place] [address] Mar, [facility] [address] [id number] [address] [place] [address], [place] [address] Mar, [facility] [address] [id number] [address] [place] [address], [place] [address] Feb, [facility] [address] [id number] [address] [place] [address], [place] [address] Feb, [facility] [address] [id number] [address] [place] [address], [place] [address] Feb, [facility] [address] [id number] [address] [place] [address], [place] [address] Feb, [facility] [address] [id number] [address] [place] [address], [place] [address] Feb, [facility] [address] [id number] [address] [place] [address], [place] [address] Feb, [facility] [address] [id number] [address] [place] [address], [place] [address] Feb, [facility] [address] [id number] [address] [place] [address], [place] [address] Feb, [facility] [address] [id number] [address] [place] [address], [place] [address] Jan, [facility] [address] [id number] [address] [place] [address], [place] [address] Jan, [facility] [address] [id number] [address] [place] [address], [place] [address] Jan, [facility] [address] [id number] [address] [place] [address], [place] [id number] Jan, [facility] [address] [id number] [address] [place] [address], [place] [id number] 27 Dec, 2011 [facility] [address] [id number] [address] [place] [address], [place] [id number] 25 Sep2011 [facility] [address] [id number] [address] [place] [address] [id number] 18 Sep2011 [facility] [address] [id number] [address] [place] [address], [place] [id number] 13 Sep2011 [facility] [address] [id number] [address] [place] [address] [id number] 11 Sep2011 [facility] [address] [id number] [address] [place] [address], [place] [address] Oct, [facility] [address] [id number] [address] [place] [address], [place] [address] Oct, [facility] [address] [id number] [address] [place] [address], [place] [address] Sep, [facility] [address] [id number] [address] [place] [address], [place] [address] Sep, [facility] [address] [id number] [address] [place] [address], [place] [address] August, [facility] [address] [id number] [address] [place] [address], [place] [address] August, [facility] [address] [id number] [address] [place] [address], [place] [address] Jul, [facility] [address] [id number] [address] [place] [address], [place] [address] Jun, [facility] [address] [id number] [address] [place] [address], [place] [id number] Jun, [facility] [address] [id number] [address] [place] [address], [place] [address] Jun, [facility] [address] [id number] [address] [place] [address], [place] [address] Jun, [facility] [address] [id number] [address] [place] [address], [place] [address] Jun, [facility] [address] [id number] [address] [place] [address], [place] [address] May, [facility] [address] [id number] [address] [place] [address], [place] [address] May, [facility] [address] [id number] [address] [place] [address], [place] [id number] 20 May, 2011 [facility] [address] [id number] [address] [place] [address], [place] [id number] 14 May, 2011 [facility] [address] [id number] [address] [place] [address], [place] [address] 13 May, 2011 [facility] [address] [id number] [address] [place] [address], [place] [id number] 03 May, 2011 [facility] [address] [id number] [address] [place] [address], [place] [address] 02 May, 2011 [facility] [address] [id number] [address] [place] [address], [place] [address] May, [facility] [address] [id number] [address] [place] [address], [place] [address] Apr, [facility] [address] [id number] [address] [place] [address], [place] [address] Mar, [facility] [address] [id number] [address] [place] [address], [place] [address] Mar, [facility] [address] [id number] [address] [place] [address], [place] [address] Mar, [facility] [address] [id number] [address] [place] [address], [place] [address] 15 Mar, 2011 [facility] [address] [id number] [address] [place] [address], [place] [address] Mar, [facility] [address] [id number] [address] [place] [address], [place] [id number] 17 Jan, 2011 [facility] [address] [id number] [address] [place] [address], [place] [address] Jan, [facility] [address] [id number] [address] [place] [address], [place] [id number] Jan, [facility] [address] [id number] [address] [place] [address], [place] [address] August, [facility] [address] [id number] [address] [place] [address], [place] [id number] 13 Mar, 2010 [facility] [address] [id number] [address] [address] Feb, [facility] [address] [facility] [id number] [address] [place] [id number] Jan, [facility] [address] [facility] [id number] [address] [place] [id number] Jan, IMMUNIZATIONS No Known Immunizations SOCIAL HISTORY [...]
--- OUTSIDE RECORDS SUMMARY | 2019-11-12 16:22 | XMS REPORT ---
Author Author Talia HUDSON Organization [facility] Address [address] [place] [address] Care Team Providers Care Work Adjustment Instructor Name Role Phone KATIE HUDSON Unavailable PROBLEMS Type Condition ICD9-CM Code [id number] Code Onset Dates Condition S tatus SNOMED Code Problem CAD (coronary artery disease) I25.10 Active 65341214 Problem Osteoarthritis of knees, bilateral M17.0 Active 849438392 Problem Essential hypertension I10 Active 50569216 Problem Diabetes E11.9 Active 03088669 Problem Arthritis M19.90 Active 4911154 Problem Morbid obesity E66.01 Active 27389 6002 Problem Hyperlipemia E78.5 Active 5655478 4 ALLERGIES No Information ENCOUNTERS Encounter Location Date Diagnosis [facility] [address] [id number] [address] [place] [address] Sep, [facility] [address] [facility]NOTE [facility]] [id number] [address] [place] [address] August, [facility] [address] [facility]NOTE [facility]] [id number] [address] [place] [address] August, [facility] [address] [facility]] [id number] [address] [place] [address] August, [facility] [address] [id number] [address] [place] [address] August, [facility] [address] [facility]] [id number] [address] [place] [address] August, [facility] [address] [facility]] [id number] [address] [place] [phone] August, [facility] [address] [facility]] [id number] [address] [place] [address] August, [facility] [address] [id number] [address] [place] [address] August, Diabetes E11.9 [facility] [address] [id number] [address] [place] [address] August, [facility] [address] [id number] [address] [place] [phone] August, [facility] [address] [id number] [address] [place] [address] August, [facility] [address] [id number] [address] [place] [address] Jul, [facility] [address] [id number] [address] [place] [address] Jul, [facility] [address] [facility]] [id number] [address] [place] [address] Jul, [facility] [address] [id number] [address] [place] [address] Jul, [facility] [address] [id number] [address] [place] [address] Jun, [facility] [address] [facility]] [id number] [address] [place] [phone] Jun, [facility] [address] [facility]] [id number] [address] [place] [address] Jun, Diabetes E11.9 ; Skin infect ion L08.9 and Essential hypertension I10 [facility] [address] [id number] [address] [place] [address] May, [facility] [address] [id number] [address] [place] [address] May, [facility] [address] [id number] [address] [place] [address] May, [facility] [address] [id number] [address] [place] [address] Apr, [facility] [address] [facility]] [id number] [address] [place] [address] Mar, [facility] [address] [place] [id number] [place] [address] Mar, [facility] [address] [facility]] [id number] [address] [place] [phone] Feb, [facility] [address] [address] Nov, [facility] [address] [address] Nov, Diabetes E11.9 and Syncope, unspecified syncope type R55 [place] [address] [place] [id number] [place] [address] Nov, Osteoarthritis of knees, natan ateral M17.0 [place] [address] [address] Oct, Diabetes E11.9 ; CAD (guardado ry artery disease) I25.10 ; Essential hypertension I10 and Hyperlipemia E78.5 [place] [address] [address] Sep, [facility] [address] [place] [id number] [address] [place] [address] Jul, [facility] [address] [address] Apr, [facility] [address] [address] Mar, Pustular lesion L08.9 and En counter for immunization Z23 [place] [address] [place] [id number] [address] [place] [address] Feb, [facility] [address] [place] [id number] [address] [place] [address] Dec, [facility] [address] [place] [address] Dec, [facility] [address] [place] [id number] [place] [address] Dec, Diabetes E11.9 ; Essential h ypertension I10 ; Arthritis M19.90 ; Urinary frequency R35.0 ; Routine adult health maintenance Z00.00 and BMI 45.0- 49.9, adult Z68.42 [facility] [address] [address] 18 Dec, 2017 [facility] [address] [address] 04 Dec, 2017 [facility] [address] [address] Oct, [facility] [address] [address] Sep, Diabetes E11.9 [facility] [address] [address] Sep, Diabetes E11.9 ; Hyperlipemi a E78.5 ; CAD (coronary artery disease) I25.10 ; Essential hypertension I10 and BMI 45.0-49.9, adult Z68.42 [facility] [address] [address] Sep, [facility] [address] [address] August, [facility] [address] [address] Jan, Dysuria R30.0 [place] [address] [address] Jan, Dysuria R30.0 [facility] [address] [address] Jan, Osteoarthritis of knees, natan ateral M17.0 [facility] [address] [place] [id number] [place] [address] Nov, Dysuria R30.0 [place] [address] [place] [id number] [place] [address] Oct, Blood in urine R31.9 ; Dysur ia R30.0 ; Pharyngeal dysphagia R13.13 ; Acute cystitis with hematuria N30.01 ; CAD (coronary artery disease) I25.10 and Diabetes E11.9 [place] [address] [address] Oct, [place] [address] [place] [id number] [place] [address] Sep, Arthritis M19.90 ; Blood in urine R31.9 ; Diabetes E11.9 ; Acute cystitis with hematuria N30.01 and Pharyngoesophageal dysphagia R13.14 [place] [address] [address] Sep, Osteoarthritis of knees, natan ateral M17.0 [place] [address] [address] Sep, Osteoarthritis of knees, natan ateral M17.0 [place] [address] [place] [id number] [address] [place] [address] August, Arthritis M19.90 [place] [address] [place] [id number] [address] [place] [address] Jul, Arthritis M19.90 [place] [address] [place] [id number] [address] [place] [address] Jun, Arthritis M19.90 [place] [address] [address] Jun, [place] [address] [place] [id number] [address] [place] [address] Jun, [place] [address] [place] [id number] [address] [place] [address] May, Diabetes E11.9 ; Dysuria R30 .0 and Arthritis M19.90 [facility] [address] [id number] [address] [place] [address] Apr, [facility] [address] [id number] [address] [place] [address] Apr, Arthritis M19.90 [facility] [address] [id number] [address] [place] [address] Mar, Arthritis M19.90 [facility] [address] [id number] [address] [place] [address] Feb, [facility] [address] [id number] [address] [place] [address] Jan, [facility] [address] [id number] [address] [place] [address] Dec, Diabetes E11.9 and Arthritis M19.90 [facility] [address] [id number] [address] [place] [address] Dec, [facility] [address] [id number] [address] [place] [address] Nov, Arthritis M19.90 [facility] [address] [id number] [address] [place] [address] Nov, [facility] [address] [id number] [address] [place] [address] Oct, Arthritis M19.90 [facility] [address] [id number] [address] [place] [address] Sep, Osteoarthritis of knees, natan ateral M17.0 [facility] [address] [id number] [address] [place] [address] Sep, Osteoarthritis of knees, natan ateral M17.0 [facility] [address] [facility]] [id number] [address] [place] [address] August, Arthritis M19.90 [place] [address] [id number] [address] [place] [address] August, [facility] [address] [id number] [address] [place] [address] Jul, Hyperlipemia E78.5 [facility] [address] [id number] [address] [place] [address] Jul, Encounter for well woman exa m Z01.419 ; Morbid obesity E66.01 ; Encounter for screening for malignant neoplasm of cervix Z12.4 and Encounter for screening mammogram for breast cancer Z12.31 [facility] [address] [facility]] [id number] [address] [place] [address] Jul, Arthritis M19.90 ; Diabetes E11.9 ; Blood in urine R31.9 and UTI (urinary tract infection) N39.0 [facility] [address] [facility]] [id number] [address] [place] [address] Jul, [facility] [address] [facility]] [id number] [address] [place] [address] Jun, Arthritis M19.90 [facility] [address] [facility]] [id number] [address] [place] [address] May, Arthritis M19.90 [facility] [address] [facility]] [id number] [address] [place] [address] May, [facility] [address] [facility]] [id number] [address] [place] [address] Apr, [facility] [address] [id number] [address] [place] [address] Apr, Arthritis M19.90 ; Diabetes E11.9 and Morbid obesity E66.01 [facility] [address] [facility]] [id number] [address] [place] [address] Apr, [facility] [address] [facility]] [id number] [address] [place] [address] Apr, Dyspareunia N94.1 [facility] [address] [id number] [address] [place] [address] 15 Apr, 2015 [facility] [address] [id number] [address] [place] [id number] 15 Apr, 2015 [facility] [address] [id number] [address] [place] [address] 14 Apr, 2015 Osteoarthritis of knees, natan ateral M17.0 [facility] [address] [id number] [address] [place] [address] 14 Apr, 2015 Diabetes E11.9 and CAD (elysia nary artery disease) I25.10 [facility] [address] [id number] [address] [place] [address] 08 Mar, 2015 [facility] [address] [id number] [address] [place] [address] Feb, [facility] [address] [id number] [address] [place] [address] Jan, [facility] [address] [id number] [address] [place] [address] Jan, [facility] [address] [id number] [address] [place] [address] Jan, [facility] [address] [id number] [address] [place] [address] 15 Jan, 2015 Osteoarthritis of knees, natan ateral M17.0 [facility] [address] [id number] [address] [place] [address] 30 Dec, 2014 [facility] [address] [id number] [address] [place] [id number] 17 Dec, 2014 [facility] [address] [id number] [address] [place] [address] 10 Dec, 2014 [facility] [address] [id number] [address] [place] [id number] 08 Dec, 2014 Diabetes mellitus 250.00 and UTI (urinary tract infection) 599.0 [facility] [address] [id number] [address] [place] [address], [place] [address] Dec, [facility] [address] [id number] [address] [place] [address], [place] [address] Nov, [facility] [address] [id number] [address] [place] [address], [place] [address] Oct, [facility] [address] [id number] [address] [place] [address], [place] [address] Oct, [facility] [address] [id number] [address] [place] [address], [place] [address] Oct, [facility] [address] [id number] [address] [place] [address], [place] [address] Oct, [facility] [address] [id number] [address] [place] [address], [place] [address] Oct, [facility] [address] [id number] [address] [place] [address], [place] [address] Sep, [facility] [address] [id number] [address] [place] [address], [place] [address] August, [facility] [address] [id number] [address] [place] [address], [place] [address] August, [facility] [address] [id number] [address] [place] [address], [place] [address] August, [facility] [address] [id number] [address] [place] [address], [place] [address] Jul, [facility] [address] [id number] [address] [place] [address], [place] [address] Jul, [facility] [address] [id number] [address] [place] [address], [place] [address] Jul, [facility] [address] [id number] [address] [place] [address], [place] [address] Jun, [facility] [address] [id number] [address] [place] [address], [place] [address] Jun, [facility] [address] [id number] [address] [place] [address], [place] [address] Jun, [facility] [address] [id number] [address] [place] [address], [place] [address] Jun, [facility] [address] [id number] [address] [place] [address], [place] [address] Jun, [facility] [address] [id number] [address] [place] [address], [place] [address] Jun, [facility] [address] [id number] [address] [place] [address], [place] [address] Jun, [facility] [address] [id number] [address] [place] [address], [place] [address] Jun, [facility] [address] [id number] [address] [place] [address], [place] [address] May, 2014 [facility] [address] [id number] [address] [place] [address], [place] [address] May, 2014 [facility] [address] [id number] [address] [place] [address], [place] [address] May, 2014 [facility] [address] [id number] [address] [place] [address], [place] [address] May, [facility] [address] [id number] [address] [place] [address], [place] [address] May, 2014 [facility] [address] [id number] [address] [place] [address], [place] [address] May, 2014 [facility] [address] [id number] [address] [place] [address], [place] [address] May, 2014 [facility] [address] [id number] [address] [place] [address], [place] [address] May, 2014 [facility] [address] [id number] [address] [place] [address], [place] [address] May, 2014 [facility] [address] [id number] [address] [place] [address], [place] [address] May, 2014 [facility] [address] [id number] [address] [place] [address], [place] [address] May, [facility] [address] [id number] [address] [place] [address], [place] [address] May, [facility] [address] [id number] [address] [place] [address], [place] [address] Apr, [facility] [address] [id number] [address] [place] [address], [place] [address] Apr, [facility] [address] [id number] [address] [place] [address], [place] [address] Mar, [facility] [address] [id number] [address] [place] [address], [place] [address] Mar, [facility] [address] [id number] [address] [place] [address], [place] [address] Mar, [facility] [address] [id number] [address] [place] [address], [place] [address] Mar, [facility] [address] [id number] [address] [place] [address], [place] [address] Mar, [facility] [address] [id number] [address] [place] [address], [place] [address] Mar, [facility] [address] [id number] [address] [place] [address], [place] [address] Feb, [facility] [address] [id number] [address] [place] [address], [place] [address] Feb, [facility] [address] [id number] [address] [place] [address], [place] [address] Feb, [facility] [address] [id number] [address] [place] [address], [place] [address] Feb, [facility] [address] [id number] [address] [place] [address], [place] [address] 18 Feb, 2014 [facility] [address] [id number] [address] [place] [address], [place] [address] Feb, [facility] [address] [id number] [address] [place] [address], [place] [address] Feb, [facility] [address] [id number] [address] [place] [address], [place] [address] Feb, [facility] [address] [id number] [address] [place] [address], [place] [address] Feb, [facility] [address] [id number] [address] [place] [address], [place] [address] Jan, [facility] [address] [id number] [address] [place] [address], [place] [address] Jan, [facility] [address] [id number] [address] [place] [address], [place] [address] Jan, [facility] [address] [id number] [address] [place] [address], [place] [address] Jan, [facility] [address] [id number] [address] [place] [address], [place] [address] Jan, [facility] [address] [id number] [address] [place] [address], [place] [address] Jan, [facility] [address] [id number] [address] [place] [address], [place] [address] Jan, [facility] [address] [id number] [address] [place] [address], [place] [address] 17 Jan, 2014 [facility] [address] [id number] [address] [place] [address], [place] [address] Jan, [facility] [address] [id number] [address] [place] [address], [place] [address] Jan, [facility] [address] [id number] [address] [place] [address], [place] [address] 19 Dec, 2013 [facility] [address] [id number] [facility] [place] [address] Dec, [facility] [address] [id number] [facility] [place] [address] Dec, [facility] [address] [id number] [facility] [place] [address] Dec, [facility] [address] [id number] [address] [place] [address], [place] [address] Nov, [facility] [address] [id number] [address] [place] [address], [place] [address] Nov, [facility] [address] [id number] [address] [place] [address], [place] [address] Nov, [facility] [address] [id number] [address] [place] [address], [place] [address] Nov, [facility] [address] [id number] [address] [place] [address], [place] [address] Nov, [facility] [address] [id number] [address] [place] [address], [place] [address] Nov, [facility] [address] [id number] [address] [place] [address], [place] [address] Nov, [facility] [address] [id number] [address] [place] [address], [place] [address] Nov, [facility] [address] [id number] [address] [place] [address], [place] [address] Nov, [facility] [address] [id number] [address] [place] [address], [place] [address] Oct, [facility] [address] [id number] [address] [place] [address], [place] [address] Oct, [facility] [address] [id number] [address] [place] [address], [place] [address] Sep, [facility] [address] [id number] [address] [place] [address], [place] [address] Sep, [facility] [address] [id number] [facility] [place] [address] Sep, [facility] [address] [id number] [address] [place] [address], [place] [address] Sep, [facility] [address] [id number] [address] [place] [address], [place] [address] Sep, [facility] [address] [id number] [address] [place] [address], [place] [address] Sep, [facility] [address] [id number] [address] [place] [address], [place] [address] Sep, [facility] [address] [id number] [address] [place] [address], [place] [address] Sep, [facility] [address] [id number] [address] [place] [address], [place] [address] Sep, [facility] [address] [id number] [address] [place] [address], [place] [address] Sep, [facility] [address] [id number] [address] [place] [address], [place] [address] Sep, [facility] [address] [id number] [address] [place] [address], [place] [address] Sep, [facility] [address] [id number] [address] [place] [address], [place] [address] Sep, [facility] [address] [id number] [address] [place] [address], [place] [address] Sep, [facility] [address] [id number] [address] [place] [address], [place] [address] August, [facility] [address] [id number] [address] [place] [address], [place] [address] August, [facility] [address] [id number] [address] [place] [address], [place] [address] August, [facility] [address] [id number] [address] [place] [address], [place] [address] August, [facility] [address] [id number] [address] [place] [address], [place] [address] Jul, [facility] [address] [id number] [address] [place] [address], [place] [address] Jul, [facility] [address] [id number] [address] [place] [address], [place] [address] Jul, [facility] [address] [id number] [address] [place] [address], [place] [address] Jul, [facility] [address] [id number] [address] [place] [address], [place] [address] Jun, [facility] [address] [id number] [address] [place] [address], [place] [address] Jun, [facility] [address] [id number] [address] [place] [address], [place] [address] May, [facility] [address] [id number] [address] [place] [address], [place] [address] May, [facility] [address] [id number] [address] [place] [address], [place] [address] May, [facility] [address] [id number] [address] [place] [address], [place] [address] May, [facility] [address] [id number] [address] [place] [address], [place] [address] May, [facility] [address] [id number] [address] [place] [address], [place] [address] May, [facility] [address] [id number] [address] [place] [address], [place] [address] May, [facility] [address] [id number] [address] [place] [address], [place] [address] May, [facility] [address] [id number] [address] [place] [address], [place] [address] May, [facility] [address] [id number] [address] [place] [address], [place] [address] Apr, [facility] [address] [id number] [address] [place] [address], [place] [address] Apr, [facility] [address] [id number] [address] [place] [address], [place] [address] Apr, [facility] [address] [id number] [address] [place] [address], [place] [address] Apr, [facility] [address] [id number] [address] [place] [address], [place] [address] Apr, [facility] [address] [id number] [address] [place] [address], [place] [address] Mar, [facility] [address] [id number] [address] [place] [address], [place] [address] Mar, [facility] [address] [id number] [address] [place] [address], [place] [address] Feb, [facility] [address] [id number] [address] [place] [address], [place] [address] Feb, [facility] [address] [id number] [address] [place] [address], [place] [address] Feb, [facility] [address] [id number] [address] [place] [address], [place] [address] Feb, [facility] [address] [id number] [address] [place] [address], [place] [address] Feb, [facility] [address] [id number] [address] [place] [address], [place] [address] Feb, [facility] [address] [id number] [address] [place] [address], [place] [address] Feb, [facility] [address] [id number] [address] [place] [address], [place] [address] Feb, [facility] [address] [id number] [address] [place] [address], [place] [address] Feb, [facility] [address] [id number] [address] [place] [address], [place] [address] Jan, [facility] [address] [id number] [address] [place] [address], [place] [address] Jan, [facility] [address] [id number] [address] [place] [address], [place] [address] Jan, [facility] [address] [id number] [address] [place] [address], [place] [address] Jan, [facility] [address] [id number] [address] [place] [address], [place] [address] Jan, [facility] [address] [id number] [address] [place] [address], [place] [address] Dec, [facility] [address] [id number] [address] [place] [address], [place] [address] Dec, [facility] [address] [id number] [address] [place] [address], [place] [address] Nov, [facility] [address] [id number] [address] [place] [address], [place] [address] Nov, [facility] [address] [id number] [address] [place] [address], [place] [address] Oct, [facility] [address] [id number] [address] [place] [address], [place] [address] Oct, [facility] [address] [id number] [address] [place] [address], [place] [address] Oct, [facility] [address] [id number] [address] [place] [address], [place] [address] Sep, [facility] [address] [id number] [address] [place] [address], [place] [address] Sep, [facility] [address] [id number] [address] [place] [address], [place] [address] Sep, [facility] [address] [id number] [address] [place] [address], [place] [address] August, [facility] [address] [id number] [address] [place] [address], [place] [address] August, [facility] [address] [id number] [address] [place] [address], [place] [address] August, [facility] [address] [id number] [address] [place] [address], [place] [address] August, [facility] [address] [id number] [address] [place] [address], [place] [address] Jul, [facility] [address] [id number] [address] [place] [address], [place] [address] Jun, [facility] [address] [id number] [address] [place] [address], [place] [address] Jun, [facility] [address] [id number] [address] [place] [address], [place] [address] Jun, [facility] [address] [id number] [address] [place] [address], [place] [address] May, [facility] [address] [id number] [address] [place] [address], [place] [address] May, [facility] [address] [id number] [address] [place] [address], [place] [address] May, [facility] [address] [id number] [address] [place] [address], [place] [address] May, [facility] [address] [id number] [address] [place] [address], [place] [address] Apr, [facility] [address] [id number] [address] [place] [address], [place] [address] Apr, [facility] [address] [id number] [address] [place] [address], [place] [address] Apr, [facility] [address] [id number] [address] [place] [address], [place] [address] Apr, [facility] [address] [id number] [address] [place] [address], [place] [address] Apr, [facility] [address] [id number] [address] [place] [address], [place] [address] Mar, [facility] [address] [id number] [address] [place] [address], [place] [address] Mar, [facility] [address] [id number] [address] [place] [address], [place] [address] Mar, [facility] [address] [id number] [address] [place] [address], [place] [address] Mar, [facility] [address] [id number] [address] [place] [address], [place] [address] Mar, [facility] [address] [id number] [address] [place] [address], [place] [address] Mar, [facility] [address] [id number] [address] [place] [address], [place] [address] Mar, [facility] [address] [id number] [address] [place] [address], [place] [address] Feb, [facility] [address] [id number] [address] [place] [address], [place] [address] Feb, [facility] [address] [id number] [address] [place] [address], [place] [address] Feb, [facility] [address] [id number] [address] [place] [address], [place] [address] Feb, [facility] [address] [id number] [address] [place] [address], [place] [address] Feb, [facility] [address] [id number] [address] [place] [address], [place] [address] Feb, [facility] [address] [id number] [address] [place] [address], [place] [address] Feb, [facility] [address] [id number] [address] [place] [address], [place] [address] Feb, [facility] [address] [id number] [address] [place] [address], [place] [address] Jan, [facility] [address] [id number] [address] [place] [address], [place] [address] Jan, [facility] [address] [id number] [address] [place] [address], [place] [address] Jan, [facility] [address] [id number] [address] [place] [address], [place] [address] Jan, [facility] [address] [id number] [address] [place] [address], [place] [address] 27 Dec, 2011 [facility] [address] [id number] [address] [place] [address], [place] [address] 25 Dec, 2011 [facility] [address] [id number] [address] [place] [address], [place] [address] 18 Dec, 2011 [facility] [address] [id number] [address] [place] [address], [place] [address] 13 Dec, 2011 [facility] [address] [id number] [address] [place] [address], [place] [address] 11 Dec, 2011 [facility] [address] [id number] [address] [place] [address], [place] [address] Oct, [facility] [address] [id number] [address] [place] [address], [place] [address] Oct, [facility] [address] [id number] [address] [place] [address], [place] [address] Sep, [facility] [address] [id number] [address] [place] [address], [place] [address] Sep, [facility] [address] [id number] [address] [place] [address], [place] [address] August, [facility] [address] [id number] [address] [place] [address], [place] [address] August, [facility] [address] [id number] [address] [place] [address], [place] [address] 04 Jul, 2011 [facility] [address] [id number] [address] [place] [address], [place] [address] 28 Jun, 2011 [facility] [address] [id number] [address] [place] [address], [place] [address] Jun, [facility] [address] [id number] [address] [place] [address], [place] [address] 23 Jun, 2011 [facility] [address] [id number] [address] [place] [address], [place] [address] 19 Jun, 2011 [facility] [address] [id number] [address] [place] [address], [place] [address] 2011 [facility] [address] [id number] [address] [place] [address], [place] [address] 24 May, 2011 [facility] [address] [id number] [address] [place] [address], [place] [address] 22 May, 2011 [facility] [address] [id number] [address] [place] [address], [place] [address] 20 May, 2011 [facility] [address] [id number] [address] [place] [address], [place] [address] 14 May, 2011 [facility] [address] [id number] [address] [place] [address], [place] [address] 13 May, 2011 [facility] [address] [id number] [address] [place] [address], [place] [address] 03 May, 2011 [facility] [address] [id number] [address] [place] [address], [place] [address] 02 May, 2011 [facility] [address] [id number] [address] [place] [address], [place] [address] 02 May, 2011 [facility] [address] [id number] [address] [place] [address], [place] [address] Apr, [facility] [address] [id number] [address] [place] [address] Mar, [facility] [address] [id number] [address] [place] [address] Mar, [facility] [address] [id number] [address] [place] [address] Mar, [facility] [address] [id number] [address] [place] [id number] Mar, [facility] [address] [id number] [address] [place] [address] Mar, [facility] [address] [id number] [address] [place] [address] Jan, [facility] [address] [id number] [address] [place] [address] Jan, [facility] [address] [id number] [address] [place] [address] Jan, [facility] [address] [id number] [address] [place] [address] August, [facility] [address] [id number] [address] [place] [id number] Mar, [facility] [address] [id number] [address] [place] [address] Feb, [facility] [address] [id number] [address] [place] [id number] Jan, [facility] [address] [id number] [address] [place] [id number] Jan, IMMUNIZATIONS No Known Immunizations SOCIAL HISTORY [...]
--- OUTSIDE RECORDS SUMMARY | 2019-11-12 16:23 | XMS REPORT ---
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 Name Role Phone KATIE HUDSON Unavailable PROBLEMS Type Condition ICD9-CM Code [id number] Code Onset Dates Condition S tatus SNOMED Code Problem CAD (coronary artery disease) I25.10 Active 20028824 Problem Osteoarthritis of knees, bilateral M17.0 Active 877110043 Problem Essential hypertension I10 Active 85548119 Problem Diabetes E11.9 Active 08827657 Problem Arthritis M19.90 Active 7959439 Problem Morbid obesity E66.01 Active 07524 6002 Problem Hyperlipemia E78.5 Active 7037091 4 ALLERGIES No Information ENCOUNTERS Encounter Location Date Diagnosis [facility] [address] [id number] [address] [place] [phone] Sep, [facility] [address] [facility] [id number] [place] [phone] August, [facility] [address] [facility] [id number] [place] [phone] August, [facility] [address] [facility] [id number] [place] [phone] August, [facility] [address] [id number] [address] [place] [phone] August, [facility] [address] [facility] [id number] [place] [phone] August, [facility] [address] [facility] [id number] [place] [phone] August, [facility] [address] [facility] [id number] [place] [phone] August, [facility] [address] [id number] [address] [place] [address] August, Diabetes E11.9 [facility] [address] [id number] [address] [place] [phone] August, [facility] [address] [id number] [address] [place] [phone] August, [facility] [address] [id number] [address] [place] [phone] August, [facility] [address] [id number] [address] [place] [phone] Jul, [facility] [address] [id number] [address] [place] [phone] Jul, [facility] [address] [facility] [id number] [place] [phone] Jul, [facility] [address] [id number] [address] [place] [phone] Jul, [facility] [address] [id number] [address] [place] [address] Jun, [facility] [address] [facility] [id number] [place] [phone] Jun, [facility] [address] [facility] [id number] [place] [address] Jun, Diabetes E11.9 ; Skin infect ion L08.9 and Essential hypertension I10 [facility] [address] [id number] [address] [place] [phone] May, [facility] [address] [id number] [address] [place] [phone] May, [facility] [address] [id number] [address] [place] [address] May, [facility] [address] [id number] [address] [place] [phone] Apr, [facility] [address] [facility] [id number] [place] [phone] Mar, [facility] [address] [place] [id number] [place] [address] Mar, [facility] [address] [facility] [id number] [place] [address] Feb, [facility] [address] [address] Nov, [facility] [address] [address] Nov, Diabetes E11.9 and Syncope, unspecified syncope type R55 [facility] [address] [id number] [place] [address] Nov, Osteoarthritis of knees, natan ateral M17.0 [facility] [address] [address] Oct, Diabetes E11.9 ; CAD (guardado ry artery disease) I25.10 ; Essential hypertension I10 and Hyperlipemia E78.5 [facility] [address] [address] Sep, [facility] [address] [place] [id number] [address] [place] [address] Jul, [facility] [address] [address] Apr, [facility] [address] [address] Mar, Pustular lesion L08.9 and En counter for immunization Z23 [facility] [address] [place] [id number] [address] [place] [address] Feb, [facility] [address] [place] [id number] [address] [place] [address] Dec, [facility] [address] [place] [address] Dec, [facility] [address] [id number] [place] [address] Dec, Diabetes E11.9 ; Essential h ypertension I10 ; Arthritis M19.90 ; Urinary frequency R35.0 ; Routine adult health maintenance Z00.00 and BMI 45.0- 49.9, adult Z68.42 [facility] [address] [address] 18 Dec, 2017 [facility] [address] [address] 04 Dec, 2017 [facility] [address] [address] Oct, [facility] [address] [address] Sep, Diabetes E11.9 [facility] [address] [address] Sep, Diabetes E11.9 ; Hyperlipemi a E78.5 ; CAD (coronary artery disease) I25.10 ; Essential hypertension I10 and BMI 45.0-49.9, adult Z68.42 [facility] [address] [address] Sep, [facility] [address] [address] August, [facility] [address] [address] Jan, Dysuria R30.0 [facility] [address] [phone] Jan, Dysuria R30.0 [facility] [address] [address] Jan, Osteoarthritis of knees, natan ateral M17.0 [facility] [address] [place] [id number] [place] [address] Nov, Dysuria R30.0 [facility] [address] [address] [id number] [place] [address] Oct, Blood in urine R31.9 ; Dysur ia R30.0 ; Pharyngeal dysphagia R13.13 ; Acute cystitis with hematuria N30.01 ; CAD (coronary artery disease) I25.10 and Diabetes E11.9 [facility] [address] [address] Oct, [facility] [address] [place] [id number] [place] [address] Sep, Arthritis M19.90 ; Blood in urine R31.9 ; Diabetes E11.9 ; Acute cystitis with hematuria N30.01 and Pharyngoesophageal dysphagia R13.14 [facility] [address] [address] Sep, Osteoarthritis of knees, natan ateral M17.0 [facility] [address] [address] Sep, Osteoarthritis of knees, natan ateral M17.0 [facility] [address] [place] [id number] [address] [place] [address] August, Arthritis M19.90 [facility] [address] [place] [id number] [address] [place] [address] Jul, Arthritis M19.90 [facility] [address] [place] [id number] [address] [place] [address] Jun, Arthritis M19.90 [facility] [address] [address] Jun, [facility] [address] [place] [id number] [address] [place] [address] Jun, [facility] [address] [place] [id number] [address] [place] [address] May, Diabetes E11.9 ; Dysuria R30 .0 and Arthritis M19.90 [facility] [address] [id number] [address] [place] [address] Apr, [facility] [address] [id number] [address] [place] [address] Apr, Arthritis M19.90 [facility] [address] [id number] [address] [place] [address] Mar, Arthritis M19.90 [facility] [address] [id number] [address] [place] [address] Feb, [facility] [address] [id number] [address] [place] [address] Jan, [facility] [address] [id number] [address] [place] [address] Dec, Diabetes E11.9 and Arthritis M19.90 [facility] [address] [id number] [address] [place] [address] Dec, [facility] [address] [id number] [address] [place] [address] Nov, Arthritis M19.90 [facility] [address] [id number] [address] [place] [address] Nov, [facility] [address] [id number] [address] [place] [phone] Oct, Arthritis M19.90 [facility] [address] [id number] [address] [place] [address] Sep, Osteoarthritis of knees, natan ateral M17.0 [facility] [address] [id number] [address] [place] [address] Sep, Osteoarthritis of knees, natan ateral M17.0 [facility] [address] [facility] [id number] [place] [address] August, Arthritis M19.90 [place] [id number] [id number] [address] [place] [address] August, [facility] [address] [id number] [address] [place] [address] Jul, Hyperlipemia E78.5 [facility] [address] [id number] [address] [place] [address] Jul, Encounter for well woman exa m Z01.419 ; Morbid obesity E66.01 ; Encounter for screening for malignant neoplasm of cervix Z12.4 and Encounter for screening mammogram for breast cancer Z12.31 [facility] [address] [facility] [id number] [place] [id number] Jul, Arthritis M19.90 ; Diabetes E11.9 ; Blood in urine R31.9 and UTI (urinary tract infection) N39.0 [facility] [address] [facility] [id number] [place] [address] Jul, [facility] [address] [facility] [id number] [place] [address] Jun, Arthritis M19.90 [facility] [address] [facility] [id number] [place] [address] May, Arthritis M19.90 [facility] [address] [facility] [id number] [place] [address] May, [facility] [address] [facility] [id number] [place] [address] Apr, [facility] [address] [id number] [address] [place] [address] Apr, Arthritis M19.90 ; Diabetes E11.9 and Morbid obesity E66.01 [facility] [address] [facility] [id number] [place] [address] Apr, [facility] [address] [facility] [id number] [place] [address] Apr, Dyspareunia N94.1 [facility] [address] [id number] [address] [place] [phone] 15 Apr, 2015 [facility] [address] [id number] [address] [place] [id number] 15 Apr, 2015 [facility] [address] [id number] [address] [place] [address] 14 Apr, 2015 Osteoarthritis of knees, natan ateral M17.0 [facility] [address] [id number] [address] [place] [address] 14 Apr, 2015 Diabetes E11.9 and CAD (elysia nary artery disease) I25.10 [facility] [address] [id number] [address] [place] [phone] 08 Mar, 2015 [facility] [address] [id number] [address] [place] [phone] Feb, [facility] [address] [id number] [address] [place] [phone] Jan, [facility] [address] [id number] [address] [place] [phone] Jan, [facility] [address] [id number] [address] [place] [phone] Jan, [facility] [address] [id number] [address] [place] [phone] 15 Jan, 2015 Osteoarthritis of knees, natan ateral M17.0 [facility] [address] [id number] [address] [place] [id number] 30 Dec, 2014 [facility] [address] [id number] [address] [place] [phone] 17 Dec, 2014 [facility] [address] [id number] [address] [place] [id number] 10 Dec, 2014 [facility] [address] [id number] [address] [place] [id number] 08 Dec, 2014 Diabetes mellitus 250.00 and UTI (urinary tract infection) 599.0 [facility] [address] [id number] [address] [place] [address], [place] [address] Dec, [facility] [address] [id number] [address] [place] [address], [place] [address] Nov, [facility] [address] [id number] [address] [place] [address], [place] [address] Oct, [facility] [address] [id number] [address] [place] [address], [place] [address] Oct, [facility] [address] [id number] [address] [place] [address], [place] [address] Oct, [facility] [address] [id number] [address] [place] [address], [place] [address] Oct, [facility] [address] [id number] [address] [place] [address], [place] [address] Oct, [facility] [address] [id number] [address] [place] [address], [place] [address] Sep, [facility] [address] [id number] [address] [place] [address], [place] [address] August, [facility] [address] [id number] [address] [place] [address], [place] [address] August, [facility] [address] [id number] [address] [place] [address], [place] [address] August, [facility] [address] [id number] [address] [place] [address], [place] [address] Jul, [facility] [address] [id number] [address] [place] [address], [place] [address] Jul, [facility] [address] [id number] [address] [place] [address], [place] [address] Jul, [facility] [address] [id number] [address] [place] [address], [place] [address] Jun, [facility] [address] [id number] [address] [place] [address], [place] [address] Jun, [facility] [address] [id number] [address] [place] [address], [place] [address] Jun, [facility] [address] [id number] [address] [place] [address], [place] [address] Jun, [facility] [address] [id number] [address] [place] [address], [place] [address] Jun, [facility] [address] [id number] [address] [place] [address], [place] [address] Jun, [facility] [address] [id number] [address] [place] [address], [place] [address] Jun, [facility] [address] [id number] [address] [place] [address], [place] [address] Jun, [facility] [address] [id number] [address] [place] [address], [place] [address] May, 2014 [facility] [address] [id number] [address] [place] [address], [place] [address] May, 2014 [facility] [address] [id number] [address] [place] [address], [place] [address] May, 2014 [facility] [address] [id number] [address] [place] [address], [place] [id number] May, [facility] [address] [id number] [address] [place] [address], [place] [address] May, 2014 [facility] [address] [id number] [address] [place] [address], [place] [address] May, 2014 [facility] [address] [id number] [address] [place] [address], [place] [address] May, 2014 [facility] [address] [id number] [address] [place] [address], [place] [address] May, 2014 [facility] [address] [id number] [address] [place] [address], [place] [address] May, 2014 [facility] [address] [id number] [address] [place] [address], [place] [address] May, 2014 [facility] [address] [id number] [address] [place] [address], [place] [address] May, [facility] [address] [id number] [address] [place] [address], [place] [address] May, [facility] [address] [id number] [address] [place] [address], [place] [address] Apr, [facility] [address] [id number] [address] [place] [address], [place] [address] Apr, [facility] [address] [id number] [address] [place] [address], [place] [address] Mar, [facility] [address] [id number] [address] [place] [address], [place] [address] Mar, [facility] [address] [id number] [address] [place] [address], [place] [address] Mar, [facility] [address] [id number] [address] [place] [address], [place] [address] Mar, [facility] [address] [id number] [address] [place] [address], [place] [address] Mar, [facility] [address] [id number] [address] [place] [address], [place] [address] Mar, [facility] [address] [id number] [address] [place] [address], [place] [address] Feb, [facility] [address] [id number] [address] [place] [address], [place] [address] Feb, [facility] [address] [id number] [address] [place] [address], [place] [address] Feb, [facility] [address] [id number] [address] [place] [address], [place] [address] Feb, [facility] [address] [id number] [address] [place] [address], [place] [address] 18 Feb, 2014 [facility] [address] [id number] [address] [place] [address], [place] [address] Feb, [facility] [address] [id number] [address] [place] [address], [place] [address] Feb, [facility] [address] [id number] [address] [place] [address], [place] [address] Feb, [facility] [address] [id number] [address] [place] [address], [place] [address] Feb, [facility] [address] [id number] [address] [place] [address], [place] [address] Jan, [facility] [address] [id number] [address] [place] [address], [place] [address] Jan, [facility] [address] [id number] [address] [place] [address], [place] [address] Jan, [facility] [address] [id number] [address] [place] [address], [place] [address] Jan, [facility] [address] [id number] [address] [place] [address], [place] [address] Jan, [facility] [address] [id number] [address] [place] [address], [place] [address] Jan, [facility] [address] [id number] [address] [place] [address], [place] [address] Jan, [facility] [address] [id number] [address] [place] [address], [place] [id number] 17 Jan, 2014 [facility] [address] [id number] [address] [place] [address], [place] [address] Jan, [facility] [address] [id number] [address] [place] [address], [place] [address] Jan, [facility] [address] [id number] [address] [place] [address], [place] [id number] 19 Dec, 2013 [facility] [address] [id number] [facility] [place] [address] Dec, [facility] [address] [id number] [facility] [place] [address] Dec, [facility] [address] [id number] [facility] [place] [address] Dec, [facility] [address] [id number] [address] [place] [address], [place] [address] Nov, [facility] [address] [id number] [address] [place] [address], [place] [address] Nov, [facility] [address] [id number] [address] [place] [address], [place] [address] Nov, [facility] [address] [id number] [address] [place] [address], [place] [address] Nov, [facility] [address] [id number] [address] [place] [address], [place] [address] Nov, [facility] [address] [id number] [address] [place] [address], [place] [address] Nov, [facility] [address] [id number] [address] [place] [address], [place] [address] Nov, [facility] [address] [id number] [address] [place] [address], [place] [address] Nov, [facility] [address] [id number] [address] [place] [address], [place] [address] Nov, [facility] [address] [id number] [address] [place] [address], [place] [address] Oct, [facility] [address] [id number] [address] [place] [address], [place] [address] Oct, [facility] [address] [id number] [address] [place] [address], [place] [address] Sep, [facility] [address] [id number] [address] [place] [address], [place] [address] Sep, [facility] [address] [id number] [facility] [place] [address] Sep, [facility] [address] [id number] [address] [place] [address], [place] [address] Sep, [facility] [address] [id number] [address] [place] [address], [place] [address] Sep, [facility] [address] [id number] [address] [place] [address], [place] [address] Sep, [facility] [address] [id number] [address] [place] [address], [place] [address] Sep, [facility] [address] [id number] [address] [place] [address], [place] [address] Sep, [facility] [address] [id number] [address] [place] [address], [place] [address] Sep, [facility] [address] [id number] [address] [place] [address], [place] [address] Sep, [facility] [address] [id number] [address] [place] [address], [place] [address] Sep, [facility] [address] [id number] [address] [place] [address], [place] [id number] Sep, [facility] [address] [id number] [address] [place] [address], [place] [address] Sep, [facility] [address] [id number] [address] [place] [address], [place] [address] Sep, [facility] [address] [id number] [address] [place] [address], [place] [address] August, [facility] [address] [id number] [address] [place] [address], [place] [address] August, [facility] [address] [id number] [address] [place] [address], [place] [address] August, [facility] [address] [id number] [address] [place] [address], [place] [address] August, [facility] [address] [id number] [address] [place] [address], [place] [address] Jul, [facility] [address] [id number] [address] [place] [address], [place] [address] Jul, [facility] [address] [id number] [address] [place] [address], [place] [address] Jul, [facility] [address] [id number] [address] [place] [address], [place] [address] Jul, [facility] [address] [id number] [address] [place] [address], [place] [address] Jun, [facility] [address] [id number] [address] [place] [address], [place] [address] Jun, [facility] [address] [id number] [address] [place] [address], [place] [address] May, [facility] [address] [id number] [address] [place] [address], [place] [address] May, [facility] [address] [id number] [address] [place] [address], [place] [address] May, [facility] [address] [id number] [address] [place] [address], [place] [address] May, [facility] [address] [id number] [address] [place] [address], [place] [address] May, [facility] [address] [id number] [address] [place] [address], [place] [address] May, [facility] [address] [id number] [address] [place] [address], [place] [address] May, [facility] [address] [id number] [address] [place] [address], [place] [address] May, [facility] [address] [id number] [address] [place] [address], [place] [address] May, [facility] [address] [id number] [address] [place] [address], [place] [address] Apr, [facility] [address] [id number] [address] [place] [address], [place] [address] Apr, [facility] [address] [id number] [address] [place] [address], [place] [address] Apr, [facility] [address] [id number] [address] [place] [address], [place] [address] Apr, [facility] [address] [id number] [address] [place] [address], [place] [address] Apr, [facility] [address] [id number] [address] [place] [address], [place] [address] Mar, [facility] [address] [id number] [address] [place] [address], [place] [address] Mar, [facility] [address] [id number] [address] [place] [address], [place] [address] Feb, [facility] [address] [id number] [address] [place] [address], [place] [address] Feb, [facility] [address] [id number] [address] [place] [address], [place] [address] Feb, [facility] [address] [id number] [address] [place] [address], [place] [address] Feb, [facility] [address] [id number] [address] [place] [address], [place] [address] Feb, [facility] [address] [id number] [address] [place] [address], [place] [address] Feb, [facility] [address] [id number] [address] [place] [address], [place] [address] Feb, [facility] [address] [id number] [address] [place] [address], [place] [address] Feb, [facility] [address] [id number] [address] [place] [address], [place] [address] Feb, [facility] [address] [id number] [address] [place] [address], [place] [address] Jan, [facility] [address] [id number] [address] [place] [address], [place] [address] Jan, [facility] [address] [id number] [address] [place] [address], [place] [address] Jan, [facility] [address] [id number] [address] [place] [address], [place] [address] Jan, [facility] [address] [id number] [address] [place] [address], [place] [address] Jan, [facility] [address] [id number] [address] [place] [address], [place] [address] Dec, [facility] [address] [id number] [address] [place] [address], [place] [address] Dec, [facility] [address] [id number] [address] [place] [address], [place] [address] Nov, [facility] [address] [id number] [address] [place] [address], [place] [address] Nov, [facility] [address] [id number] [address] [place] [address], [place] [address] Oct, [facility] [address] [id number] [address] [place] [address], [place] [address] Oct, [facility] [address] [id number] [address] [place] [address], [place] [address] Oct, [facility] [address] [id number] [address] [place] [address], [place] [address] Sep, [facility] [address] [id number] [address] [place] [address], [place] [address] Sep, [facility] [address] [id number] [address] [place] [address], [place] [address] Sep, [facility] [address] [id number] [address] [place] [address], [place] [address] August, [facility] [address] [id number] [address] [place] [address], [place] [address] August, [facility] [address] [id number] [address] [place] [address], [place] [address] August, [facility] [address] [id number] [address] [place] [address], [place] [address] August, [facility] [address] [id number] [address] [place] [address], [place] [address] Jul, [facility] [address] [id number] [address] [place] [address], [place] [address] Jun, [facility] [address] [id number] [address] [place] [address], [place] [address] Jun, [facility] [address] [id number] [address] [place] [address], [place] [address] Jun, [facility] [address] [id number] [address] [place] [address], [place] [address] May, [facility] [address] [id number] [address] [place] [address], [place] [address] May, [facility] [address] [id number] [address] [place] [address], [place] [address] May, [facility] [address] [id number] [address] [place] [address], [place] [address] May, [facility] [address] [id number] [address] [place] [address], [place] [address] Apr, [facility] [address] [id number] [address] [place] [address], [place] [address] Apr, [facility] [address] [id number] [address] [place] [address], [place] [address] Apr, [facility] [address] [id number] [address] [place] [address], [place] [address] Apr, [facility] [address] [id number] [address] [place] [address], [place] [address] Apr, [facility] [address] [id number] [address] [place] [address], [place] [address] Mar, [facility] [address] [id number] [address] [place] [address], [place] [address] Mar, [facility] [address] [id number] [address] [place] [address], [place] [address] Mar, [facility] [address] [id number] [address] [place] [address], [place] [address] Mar, [facility] [address] [id number] [address] [place] [address], [place] [address] Mar, [facility] [address] [id number] [address] [place] [address], [place] [address] Mar, [facility] [address] [id number] [address] [place] [address], [place] [address] Mar, [facility] [address] [id number] [address] [place] [address], [place] [address] Feb, [facility] [address] [id number] [address] [place] [address], [place] [address] Feb, [facility] [address] [id number] [address] [place] [address], [place] [address] Feb, [facility] [address] [id number] [address] [place] [address], [place] [address] Feb, [facility] [address] [id number] [address] [place] [address], [place] [address] Feb, [facility] [address] [id number] [address] [place] [address], [place] [address] Feb, [facility] [address] [id number] [address] [place] [address], [place] [address] Feb, [facility] [address] [id number] [address] [place] [address], [place] [address] Feb, [facility] [address] [id number] [address] [place] [address], [place] [address] Jan, [facility] [address] [id number] [address] [place] [address], [place] [address] Jan, [facility] [address] [id number] [address] [place] [address], [place] [address] Jan, [facility] [address] [id number] [address] [place] [address], [place] [address] Jan, [facility] [address] [id number] [address] [place] [address], [place] [address] 27 Dec, 2011 [facility] [address] [id number] [address] [place] [address], [place] [address] 25 Dec, 2011 [facility] [address] [id number] [address] [place] [address], [place] [address] 18 Dec, 2011 [facility] [address] [id number] [address] [place] [address], [place] [address] 13 Dec, 2011 [facility] [address] [id number] [address] [place] [address], [place] [address] 11 Dec, 2011 [facility] [address] [id number] [address] [place] [address], [place] [address] Oct, [facility] [address] [id number] [address] [place] [address], [place] [address] Oct, [facility] [address] [id number] [address] [place] [address], [place] [address] Sep, [facility] [address] [id number] [address] [place] [address], [place] [address] Sep, [facility] [address] [id number] [address] [place] [address], [place] [address] August, [facility] [address] [id number] [address] [place] [address], [place] [address] August, [facility] [address] [id number] [address] [place] [address], [place] [address] 04 Jul, 2011 [facility] [address] [id number] [address] [place] [address], [place] [address] 28 Jun, 2011 [facility] [address] [id number] [address] [place] [address], [place] [address] Jun, [facility] [address] [id number] [address] [place] [address], [place] [address] 23 Jun, 2011 [facility] [address] [id number] [address] [place] [address], [place] [address] 19 Jun, 2011 [facility] [address] [id number] [address] [place] [address], [place] [address] 2011 [facility] [address] [id number] [address] [place] [address], [place] [address] 24 May, 2011 [facility] [address] [id number] [address] [place] [address], [place] [address] 22 May, 2011 [facility] [address] [id number] [address] [place] [address], [place] [address] 20 May, 2011 [facility] [address] [id number] [address] [place] [address], [place] [address] 14 May, 2011 [facility] [address] [id number] [address] [place] [address], [place] [address] 13 May, 2011 [facility] [address] [id number] [address] [place] [address], [place] [address] 03 May, 2011 [facility] [address] [id number] [address] [place] [address], [place] [address] 02 May, 2011 [facility] [address] [id number] [address] [place] [address], [place] [address] 02 May, 2011 [facility] [address] [id number] [address] [place] [address], [place] [address] Apr, [facility] [address] [id number] [address] [place] [id number] Mar, [facility] [address] [id number] [address] [place] [id number] Mar, [facility] [address] [id number] [address] [place] [id number] Mar, [facility] [address] [id number] [address] [place] [id number] Mar, [facility] [address] [id number] [address] [place] [id number] Mar, [facility] [address] [id number] [address] [place] [id number] Jan, [facility] [address] [id number] [address] [place] [id number] Jan, [facility] [address] [id number] [address] [place] [id number] Jan, [facility] [address] [id number] [address] [place] [id number] August, [facility] [address] [id number] [address] [place] [id number] Mar, [facility] [address] [id number] [address] [place] [id number] Feb, [facility] [address] [id number] [address] [place] [id number] Jan, [facility] [address] [id number] [address] [place] [id number] Jan, IMMUNIZATIONS No Known Immunizations SOCIAL HISTORY [...]
--- OUTSIDE RECORDS SUMMARY | 2019-11-12 16:23 | XMS REPORT ---
Author Author Talia HUDSON Organization [facility] [place] Address [address] [place] [address] Care Team Providers Care Tube Dispatcher Name Role Phone KATIE HUDSON Unavailable PROBLEMS Type Condition ICD9-CM Code VBA50-NQ Code Onset Dates Condition S tatus SNOMED Code Problem CAD (coronary artery disease) I25.10 Active 22953378 Problem Osteoarthritis of knees, bilateral M17.0 Active 703397474 Problem Essential hypertension I10 Active 06288663 Problem Diabetes E11.9 Active 52043439 Problem Arthritis M19.90 Active 4418111 Problem Morbid obesity E66.01 Active 26668 6002 Problem Hyperlipemia E78.5 Active 5146444 4 ALLERGIES No Information ENCOUNTERS Encounter Location Date Diagnosis [facility] [place] [address] [id number] [address] [place] [address] Sep, [facility] [place] [address] [facility] [id number] [address] [place] [address] August, [facility] [place] [address] [facility] [id number] [address] [place] [address] August, [facility] [place] [address] [facility] [id number] [address] [place] [address] August, [facility] [place] [address] [id number] [address] [place] [address] August, [facility] [place] [address] [facility] [id number] [address] [place] [address] August, [facility] [place] [address] [facility] [id number] [address] [place] [address] August, [facility] [place] [address] [facility] [id number] [address] [place] [address] August, [facility] [place] [address] [id number] [address] [place] [address] August, Diabetes E11.9 [facility] [place] [address] [id number] [address] [place] [address] August, [facility] [place] [address] [id number] [address] [place] [address] August, [facility] [place] [address] [id number] [address] [place] [address] August, [facility] [place] [address] [id number] [address] [place] [address] Jul, [facility] [place] [address] [id number] [address] [place] [address] Jul, [facility] [place] [address] [facility] [id number] [address] [place] [address] Jul, [facility] [place] [address] [id number] [address] [place] [address] Jul, [facility] [place] [address] [id number] [address] [place] [address] Jun, [facility] [place] [address] [facility] [id number] [address] [place] [address] Jun, [facility] [place] [address] [facility] [id number] [address] [place] [address] Jun, Diabetes E11.9 ; Skin infect ion L08.9 and Essential hypertension I10 [facility] [place] [address] [id number] [address] [place] [address] May, [facility] [place] [address] [id number] [address] [place] [address] May, [facility] [place] [address] [id number] [address] [place] [address] May, [facility] [place] [address] [id number] [address] [place] [address] Apr, [facility] [place] [address] [facility] [id number] [address] [place] [address] Mar, [facility] [place] [address] [place] [id number] [place] [address] Mar, [facility] [place] [address] [facility] [id number] [address] [place] [address] Feb, [facility] [place] [address] [address] Nov, [facility] [place] [address] [address] Nov, Diabetes E11.9 and Syncope, unspecified syncope type R55 [place] [address] [place] [id number] [place] [address] Nov, Osteoarthritis of knees, natan ateral M17.0 [place] [address] [address] Oct, Diabetes E11.9 ; CAD (guardado ry artery disease) I25.10 ; Essential hypertension I10 and Hyperlipemia E78.5 [place] [address] [address] Sep, [facility] [place] [address] [place] [id number] [address] [place] [address] Jul, [facility] [place] [address] [address] Apr, [facility] [place] [address] [address] Mar, Pustular lesion L08.9 and En counter for immunization Z23 [place] [address] [place] [id number] [address] [place] [address] Feb, [facility] [place] [address] [place] [id number] [address] [place] [address] Dec, [facility] [place] [address] [place] [address] Dec, [facility] [place] [address] [place] [id number] [place] [address] Dec, Diabetes E11.9 ; Essential h ypertension I10 ; Arthritis M19.90 ; Urinary frequency R35.0 ; Routine adult health maintenance Z00.00 and BMI 45.0- 49.9, adult Z68.42 [facility] [place] [address] [address] 18 Dec, 2017 [facility] [place] [address] [address] 04 Dec, 2017 [facility] [place] [address] [address] Oct, [facility] [place] [address] [address] Sep, Diabetes E11.9 [facility] [place] [address] [address] Sep, Diabetes E11.9 ; Hyperlipemi a E78.5 ; CAD (coronary artery disease) I25.10 ; Essential hypertension I10 and BMI 45.0-49.9, adult Z68.42 [facility] [place] [address] [address] Sep, [facility] [place] [address] [address] August, [facility] [place] [address] [address] Jan, Dysuria R30.0 [place] [address] [address] Jan, Dysuria R30.0 [facility] [place] [address] [address] Jan, Osteoarthritis of knees, natan ateral M17.0 [facility] [place] [address] [place] [id number] [place] [address] Nov, Dysuria R30.0 [place] [address] [place] [id number] [place] [address] Oct, Blood in urine R31.9 ; Dysur ia R30.0 ; Pharyngeal dysphagia R13.13 ; Acute cystitis with hematuria N30.01 ; CAD (coronary artery disease) I25.10 and Diabetes E11.9 [place] [address] [address] Oct, [place] [address] [place] [id number] [place] [address] Sep, Arthritis M19.90 ; Blood in urine R31.9 ; Diabetes E11.9 ; Acute cystitis with hematuria N30.01 and Pharyngoesophageal dysphagia R13.14 [place] [address] [address] Sep, Osteoarthritis of knees, natan ateral M17.0 [place] [address] [address] Sep, Osteoarthritis of knees, natan ateral M17.0 [place] [address] [place] [id number] [address] [place] [address] August, Arthritis M19.90 [place] [address] [place] [id number] [address] [place] [address] Jul, Arthritis M19.90 [place] [address] [place] [id number] [address] [place] [address] Jun, Arthritis M19.90 [place] [address] [address] Jun, [place] [address] [place] [id number] [address] [place] [address] Jun, [place] [address] [place] [id number] [address] [place] [address] May, Diabetes E11.9 ; Dysuria R30 .0 and Arthritis M19.90 [facility] [place] [address] [id number] [address] [place] [address] Apr, [facility] [place] [address] [id number] [address] [place] [address] Apr, Arthritis M19.90 [facility] [place] [address] [id number] [address] [place] [address] Mar, Arthritis M19.90 [facility] [place] [address] [id number] [address] [place] [address] Feb, [facility] [place] [address] [id number] [address] [place] [address] Jan, [facility] [place] [address] [id number] [address] [place] [address] Dec, Diabetes E11.9 and Arthritis M19.90 [facility] [place] [address] [id number] [address] [place] [address] Dec, [facility] [place] [address] [id number] [address] [place] [address] Nov, Arthritis M19.90 [facility] [place] [address] [id number] [address] [place] [address] Nov, [facility] [place] [address] [id number] [address] [place] [address] Oct, Arthritis M19.90 [facility] [place] [address] [id number] [address] [place] [address] Sep, Osteoarthritis of knees, natan ateral M17.0 [facility] [place] [address] [id number] [address] [place] [address] Sep, Osteoarthritis of knees, natan ateral M17.0 [facility] [place] [address] [facility] [id number] [address] [place] [address] August, Arthritis M19.90 [place] [id number] [id number] [address] [place] [address] August, [facility] [place] [address] [id number] [address] [place] [address] Jul, Hyperlipemia E78.5 [facility] [place] [address] [id number] [address] [place] [address] Jul, Encounter for well woman exa m Z01.419 ; Morbid obesity E66.01 ; Encounter for screening for malignant neoplasm of cervix Z12.4 and Encounter for screening mammogram for breast cancer Z12.31 [facility] [place] [address] [facility] [id number] [address] [place] [address] Jul, Arthritis M19.90 ; Diabetes E11.9 ; Blood in urine R31.9 and UTI (urinary tract infection) N39.0 [facility] [place] [address] [facility] [id number] [address] [place] [address] Jul, [facility] [place] [address] [facility] [id number] [address] [place] [address] Jun, Arthritis M19.90 [facility] [place] [address] [facility] [id number] [address] [place] [address] May, Arthritis M19.90 [facility] [place] [address] [facility] [id number] [address] [place] [address] May, [facility] [place] [address] [facility] [id number] [address] [place] [address] Apr, [facility] [place] [address] [id number] [address] [place] [address] Apr, Arthritis M19.90 ; Diabetes E11.9 and Morbid obesity E66.01 [facility] [place] [address] [facility] [id number] [address] [place] [address] Apr, [facility] [place] [address] [facility] [id number] [address] [place] [address] Apr, Dyspareunia N94.1 [facility] [place] [address] [id number] [address] [place] [address] 15 Apr, 2015 [facility] [place] [address] [id number] [address] [place] [address] 15 Apr, 2015 [facility] [place] [address] [id number] [address] [place] [address] 14 Apr, 2015 Osteoarthritis of knees, natan ateral M17.0 [facility] [place] [address] [id number] [address] [place] [address] 14 Apr, 2015 Diabetes E11.9 and CAD (elysia nary artery disease) I25.10 [facility] [place] [address] [id number] [address] [place] [address] 08 Mar, 2015 [facility] [place] [address] [id number] [address] [place] [address] Feb, [facility] [place] [address] [id number] [address] [place] [address] Jan, [facility] [place] [address] [id number] [address] [place] [address] Jan, [facility] [place] [address] [id number] [address] [place] [address] Jan, [facility] [place] [address] [id number] [address] [place] [address] 15 Jan, 2015 Osteoarthritis of knees, natan ateral M17.0 [facility] [place] [address] [id number] [address] [place] [address] 30 Dec, 2014 [facility] [place] [address] [id number] [address] [place] [address] 17 Dec, 2014 [facility] [place] [address] [id number] [address] [place] [address] 10 Dec, 2014 [facility] [place] [address] [id number] [address] [place] [phone] 08 Dec, 2014 Diabetes mellitus 250.00 and UTI (urinary tract infection) 599.0 [facility] [address] [id number] [address] [place] [address], [place] [address] Dec, [facility] [address] [id number] [address] [place] [address], [place] [address] Nov, [facility] [address] [id number] [address] [place] [address], [place] [address] Oct, [facility] [address] [id number] [address] [place] [address], [place] [address] Oct, [facility] [address] [id number] [address] [place] [address], [place] [address] Oct, [facility] [address] [id number] [address] [place] [address], [place] [address] Oct, [facility] [address] [id number] [address] [place] [address], [place] [address] Oct, [facility] [address] [id number] [address] [place] [address], [place] [address] Sep, [facility] [address] [id number] [address] [place] [address], [place] [address] August, [facility] [address] [id number] [address] [place] [address], [place] [address] August, [facility] [address] [id number] [address] [place] [address], [place] [address] August, [facility] [address] [id number] [address] [place] [address], [place] [address] Jul, [facility] [address] [id number] [address] [place] [address], [place] [address] Jul, [facility] [address] [id number] [address] [place] [address], [place] [address] Jul, [facility] [address] [id number] [address] [place] [address], [place] [address] Jun, [facility] [address] [id number] [address] [place] [address], [place] [address] Jun, [facility] [address] [id number] [address] [place] [address], [place] [address] Jun, [facility] [address] [id number] [address] [place] [address], [place] [address] Jun, [facility] [address] [id number] [address] [place] [address], [place] [address] Jun, [facility] [address] [id number] [address] [place] [address], [place] [address] Jun, [facility] [address] [id number] [address] [place] [address], [place] [address] Jun, [facility] [address] [id number] [address] [place] [address], [place] [address] Jun, [facility] [address] [id number] [address] [place] [address], [place] [address] May, 2014 [facility] [address] [id number] [address] [place] [address], [place] [address] May, 2014 [facility] [address] [id number] [address] [place] [address], [place] [address] May, 2014 [facility] [address] [id number] [address] [place] [address], [place] [address] May, [facility] [address] [id number] [address] [place] [address], [place] [address] May, 2014 [facility] [address] [id number] [address] [place] [address], [place] [address] May, 2014 [facility] [address] [id number] [address] [place] [address], [place] [address] May, 2014 [facility] [address] [id number] [address] [place] [address], [place] [address] May, 2014 [facility] [address] [id number] [address] [place] [address], [place] [address] May, 2014 [facility] [address] [id number] [address] [place] [address], [place] [address] May, 2014 [facility] [address] [id number] [address] [place] [address], [place] [address] May, [facility] [address] [id number] [address] [place] [address], [place] [address] May, [facility] [address] [id number] [address] [place] [address], [place] [address] Apr, [facility] [address] [id number] [address] [place] [address], [place] [address] Apr, [facility] [address] [id number] [address] [place] [address], [place] [address] Mar, [facility] [address] [id number] [address] [place] [address], [place] [address] Mar, [facility] [address] [id number] [address] [place] [address], [place] [address] Mar, [facility] [address] [id number] [address] [place] [address], [place] [address] Mar, [facility] [address] [id number] [address] [place] [address], [place] [address] Mar, [facility] [address] [id number] [address] [place] [address], [place] [address] Mar, [facility] [address] [id number] [address] [place] [address], [place] [address] Feb, [facility] [address] [id number] [address] [place] [address], [place] [address] Feb, [facility] [address] [id number] [address] [place] [address], [place] [address] Feb, [facility] [address] [id number] [address] [place] [address], [place] [address] Feb, [facility] [address] [id number] [address] [place] [address], [place] [address] 18 Feb, 2014 [facility] [address] [id number] [address] [place] [address], [place] [address] Feb, [facility] [address] [id number] [address] [place] [address], [place] [address] Feb, [facility] [address] [id number] [address] [place] [address], [place] [address] Feb, [facility] [address] [id number] [address] [place] [address], [place] [address] Feb, [facility] [address] [id number] [address] [place] [address], [place] [address] Jan, [facility] [address] [id number] [address] [place] [address], [place] [address] Jan, [facility] [address] [id number] [address] [place] [address], [place] [address] Jan, [facility] [address] [id number] [address] [place] [address], [place] [address] Jan, [facility] [address] [id number] [address] [place] [address], [place] [address] Jan, [facility] [address] [id number] [address] [place] [address], [place] [address] Jan, [facility] [address] [id number] [address] [place] [address], [place] [address] Jan, [facility] [address] [id number] [address] [place] [address], [place] [address] 17 Jan, 2014 [facility] [address] [id number] [address] [place] [address], [place] [address] Jan, [facility] [address] [id number] [address] [place] [address], [place] [address] Jan, [facility] [address] [id number] [address] [place] [address], [place] [address] 19 Dec, 2013 [facility] [address] [id number] [address] [address] Dec, [facility] [address] [id number] [facility] [address] Dec, [facility] [address] [id number] [address] [address] Dec, [facility] [address] [id number] [address] [place] [address], [place] [address] Nov, [facility] [address] [id number] [address] [place] [address], [place] [address] Nov, [facility] [address] [id number] [address] [place] [address], [place] [address] Nov, [facility] [address] [id number] [address] [place] [address], [place] [address] Nov, [facility] [address] [id number] [address] [place] [address], [place] [address] Nov, [facility] [address] [id number] [address] [place] [address], [place] [address] Nov, [facility] [address] [id number] [address] [place] [address], [place] [address] Nov, [facility] [address] [id number] [address] [place] [address], [place] [address] Nov, [facility] [address] [id number] [address] [place] [address], [place] [address] Nov, [facility] [address] [id number] [address] [place] [address], [place] [address] Oct, [facility] [address] [id number] [address] [place] [address], [place] [address] Oct, [facility] [address] [id number] [address] [place] [address], [place] [address] Sep, [facility] [address] [id number] [address] [place] [address], [place] [address] Sep, [facility] [address] [id number] [address] [address] Sep, [facility] [address] [id number] [address] [place] [address], [place] [address] Sep, [facility] [address] [id number] [address] [place] [address], [place] [address] Sep, [facility] [address] [id number] [address] [place] [address], [place] [address] Sep, [facility] [address] [id number] [address] [place] [address], [place] [address] Sep, [facility] [address] [id number] [address] [place] [address], [place] [address] Sep, [facility] [address] [id number] [address] [place] [address], [place] [address] Sep, [facility] [address] [id number] [address] [place] [address], [place] [address] Sep, [facility] [address] [id number] [address] [place] [address], [place] [address] Sep, [facility] [address] [id number] [address] [place] [address], [place] [address] Sep, [facility] [address] [id number] [address] [place] [address], [place] [address] Sep, [facility] [address] [id number] [address] [place] [address], [place] [address] Sep, [facility] [address] [id number] [address] [place] [address], [place] [address] August, [facility] [address] [id number] [address] [place] [address], [place] [address] August, [facility] [address] [id number] [address] [place] [address], [place] [address] August, [facility] [address] [id number] [address] [place] [address], [place] [address] August, [facility] [address] [id number] [address] [place] [address], [place] [address] Jul, [facility] [address] [id number] [address] [place] [address], [place] [address] Jul, [facility] [address] [id number] [address] [place] [address], [place] [address] Jul, [facility] [address] [id number] [address] [place] [address], [place] [address] Jul, [facility] [address] [id number] [address] [place] [address], [place] [address] Jun, [facility] [address] [id number] [address] [place] [address], [place] [address] Jun, [facility] [address] [id number] [address] [place] [address], [place] [address] May, [facility] [address] [id number] [address] [place] [address], [place] [address] May, [facility] [address] [id number] [address] [place] [address], [place] [address] May, [facility] [address] [id number] [address] [place] [address], [place] [address] May, [facility] [address] [id number] [address] [place] [address], [place] [address] May, [facility] [address] [id number] [address] [place] [address], [place] [address] May, [facility] [address] [id number] [address] [place] [address], [place] [address] May, [facility] [address] [id number] [address] [place] [address], [place] [address] May, [facility] [address] [id number] [address] [place] [address], [place] [address] May, [facility] [address] [id number] [address] [place] [address], [place] [address] Apr, [facility] [address] [id number] [address] [place] [address], [place] [address] Apr, [facility] [address] [id number] [address] [place] [address], [place] [address] Apr, [facility] [address] [id number] [address] [place] [address], [place] [address] Apr, [facility] [address] [id number] [address] [place] [address], [place] [address] Apr, [facility] [address] [id number] [address] [place] [address], [place] [address] Mar, [facility] [address] [id number] [address] [place] [address], [place] [address] Mar, [facility] [address] [id number] [address] [place] [address], [place] [address] Feb, [facility] [address] [id number] [address] [place] [address], [place] [address] Feb, [facility] [address] [id number] [address] [place] [address], [place] [address] Feb, [facility] [address] [id number] [address] [place] [address], [place] [address] Feb, [facility] [address] [id number] [address] [place] [address], [place] [address] Feb, [facility] [address] [id number] [address] [place] [address], [place] [address] Feb, [facility] [address] [id number] [address] [place] [address], [place] [address] Feb, [facility] [address] [id number] [address] [place] [address], [place] [address] Feb, [facility] [address] [id number] [address] [place] [address], [place] [address] Feb, [facility] [address] [id number] [address] [place] [address], [place] [address] Jan, [facility] [address] [id number] [address] [place] [address], [place] [address] Jan, [facility] [address] [id number] [address] [place] [address], [place] [address] Jan, [facility] [address] [id number] [address] [place] [address], [place] [address] Jan, [facility] [address] [id number] [address] [place] [address], [place] [address] Jan, [facility] [address] [id number] [address] [place] [address], [place] [address] Dec, [facility] [address] [id number] [address] [place] [address], [place] [address] Dec, [facility] [address] [id number] [address] [place] [address], [place] [address] Nov, [facility] [address] [id number] [address] [place] [address], [place] [address] Nov, [facility] [address] [id number] [address] [place] [address], [place] [address] Oct, [facility] [address] [id number] [address] [place] [address], [place] [address] Oct, [facility] [address] [id number] [address] [place] [address], [place] [address] Oct, [facility] [address] [id number] [address] [place] [address], [place] [address] Sep, [facility] [address] [id number] [address] [place] [address], [place] [address] Sep, [facility] [address] [id number] [address] [place] [address], [place] [address] Sep, [facility] [address] [id number] [address] [place] [address], [place] [address] August, [facility] [address] [id number] [address] [place] [address], [place] [address] August, [facility] [address] [id number] [address] [place] [address], [place] [address] August, [facility] [address] [id number] [address] [place] [address], [place] [address] August, [facility] [address] [id number] [address] [place] [address], [place] [address] Jul, [facility] [address] [id number] [address] [place] [address], [place] [address] Jun, [facility] [address] [id number] [address] [place] [address], [place] [address] Jun, [facility] [address] [id number] [address] [place] [address], [place] [address] Jun, [facility] [address] [id number] [address] [place] [address], [place] [address] May, [facility] [address] [id number] [address] [place] [address], [place] [address] May, [facility] [address] [id number] [address] [place] [address], [place] [address] May, [facility] [address] [id number] [address] [place] [address], [place] [address] May, [facility] [address] [id number] [address] [place] [address], [place] [address] Apr, [facility] [address] [id number] [address] [place] [address], [place] [address] Apr, [facility] [address] [id number] [address] [place] [address], [place] [address] Apr, [facility] [address] [id number] [address] [place] [address], [place] [address] Apr, [facility] [address] [id number] [address] [place] [address], [place] [address] Apr, [facility] [address] [id number] [address] [place] [address], [place] [address] Mar, [facility] [address] [id number] [address] [place] [address], [place] [address] Mar, [facility] [address] [id number] [address] [place] [address], [place] [address] Mar, [facility] [address] [id number] [address] [place] [address], [place] [address] Mar, [facility] [address] [id number] [address] [place] [address], [place] [address] Mar, [facility] [address] [id number] [address] [place] [address], [place] [address] Mar, [facility] [address] [id number] [address] [place] [address], [place] [address] Mar, [facility] [address] [id number] [address] [place] [address], [place] [address] Feb, [facility] [address] [id number] [address] [place] [address], [place] [address] Feb, [facility] [address] [id number] [address] [place] [address], [place] [address] Feb, [facility] [address] [id number] [address] [place] [address], [place] [address] Feb, [facility] [address] [id number] [address] [place] [address], [place] [address] Feb, [facility] [address] [id number] [address] [place] [address], [place] [address] Feb, [facility] [address] [id number] [address] [place] [address], [place] [address] Feb, [facility] [address] [id number] [address] [place] [address], [place] [address] Feb, [facility] [address] [id number] [address] [place] [address], [place] [address] Jan, [facility] [address] [id number] [address] [place] [address], [place] [address] Jan, [facility] [address] [id number] [address] [place] [address], [place] [address] Jan, [facility] [address] [id number] [address] [place] [address], [place] [address] Jan, [facility] [address] [id number] [address] [place] [address], [place] [address] 27 Dec, 2011 [facility] [address] [id number] [address] [place] [address], [place] [address] 25 Dec, 2011 [facility] [address] [id number] [address] [place] [address], [place] [address] 18 Dec, 2011 [facility] [address] [id number] [address] [place] [address], [place] [address] 13 Dec, 2011 [facility] [address] [id number] [address] [place] [address], [place] [address] 11 Dec, 2011 [facility] [address] [id number] [address] [place] [address], [place] [address] Oct, [facility] [address] [id number] [address] [place] [address], [place] [address] Oct, [facility] [address] [id number] [address] [place] [address], [place] [address] Sep, [facility] [address] [id number] [address] [place] [address], [place] [address] Sep, [facility] [address] [id number] [address] [place] [address], [place] [address] August, [facility] [address] [id number] [address] [place] [address], [place] [address] August, [facility] [address] [id number] [address] [place] [address], [place] [address] 04 Jul, 2011 [facility] [address] [id number] [address] [place] [address], [place] [address] 28 Jun, 2011 [facility] [address] [id number] [address] [place] [address], [place] [address] Jun, [facility] [address] [id number] [address] [place] [address], [place] [address] 23 Jun, 2011 [facility] [address] [id number] [address] [place] [address], [place] [address] 19 Jun, 2011 [facility] [address] [id number] [address] [place] [address], [place] [address] 2011 [facility] [address] [id number] [address] [place] [address], [place] [address] 24 May, 2011 [facility] [address] [id number] [address] [place] [address], [place] [address] 22 May, 2011 [facility] [address] [id number] [address] [place] [address], [place] [address] 20 May, 2011 [facility] [address] [id number] [address] [place] [address], [place] [address] 14 May, 2011 [facility] [address] [id number] [address] [place] [address], [place] [address] 13 May, 2011 [facility] [address] [id number] [address] [place] [address], [place] [address] 03 May, 2011 [facility] [address] [id number] [address] [place] [address], [place] [address] 02 May, 2011 [facility] [address] [id number] [address] [place] [address], [place] [address] 02 May, 2011 [facility] [address] [id number] [address] [place] [address], [place] [address] Apr, [facility] [place] [address] [id number] [address] [place] [address] Mar, [facility] [place] [address] [id number] [address] [place] [address] Mar, [facility] [place] [address] [id number] [address] [place] [address] Mar, [facility] [place] [address] [id number] [address] [place] [address] Mar, [facility] [place] [address] [id number] [address] [place] [address] Mar, [facility] [place] [address] [id number] [address] [place] [address] Jan, [facility] [place] [address] [id number] [address] [place] [address] Jan, [facility] [place] [address] [id number] [address] [place] [address] Jan, [facility] [place] [address] [id number] [address] [place] [address] August, [facility] [place] [address] [id number] [address] [place] [address] Mar, [facility] [place] [address] [id number] [address] [place] [address] Feb, [facility] [place] [address] [id number] [address] [place] [address] Jan, [facility] [place] [address] [id number] [address] [place] [id number] Jan, IMMUNIZATIONS No Known Immunizations SOCIAL HISTORY [...]
--- OUTSIDE RECORDS SUMMARY | 2019-11-12 16:35 | XMS REPORT | Continuity of Care Document ---
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 Drug Allergy 06/23/2009 Yes IV CONTRAST IV CONTRAST Mild HIVES 09/17/2018 Yes No Known Drug Allergies [id number] Drug Allergy Unknown N/A 09/17/2018 Medications There [...] MD 250.0 2 DIABETES II UNCONTROLLED 05/26/2009 KATEI HUDSON MD 278.0 1 MORBID OBESITY 05/26/2009 KATIE HUDSON MD 428.0 CONGESTIVE HEART FAILURE, UNSPECIFIED 05/26/2009 KATIE HUDSON MD 250.0 2 DIABETES II UNCONTROLLED 05/26/2009 KATIE HUDSON MD 278.0 1 MORBID OBESITY 05/26/2009 KATIE HUDSON MD 428.0 CONGESTIVE HEART FAILURE, UNSPECIFIED 05/26/2009 KATIE HUDSON MD 250.0 2 DIABETES II UNCONTROLLED 05/26/2009 KATIE HUDOSN MD 278.0 1 MORBID OBESITY 05/26/2009 KATIE [...] 2 Chondromalacia 11/16/2010 BRITTANY MIRZA DO V72.31 Health 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 Agent 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, Routine 11/16/2010 KATIE HUDSON MD V72.3 1 Health 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 Agent Exam, Routine 11/16/2010 V72.31 Health 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 Agent Exam, Routine 11/16/2010 KATIE HUDSON MD V72.3 1 Health 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 Agent Exam, Routine 11/16/2010 KATIE HUDSON MD V72.3 1 Health 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 Agent Exam, Routine 11/16/2010 KATIE HUDSON MD V72.3 1 Health 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 Agent Exam, Routine 11/16/2010 KATIE HUDSON MD V72.3 1 Health 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 Agent Exam, Routine 11/16/2010 YUKI HERNADEZ, BRITTANY Vazquez V72.31 Health 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 Agent Exam, Routine 11/16/2010 BECCA CACERES, KATIE V72.3 1 Health 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 Agent Exam, Routine 11/16/2010 YUKI HERNADEZ, BRITTANY Vazquez V72.31 Health 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 Agent Exam, Routine 11/16/2010 BECCA CACERES, KATIE V72.3 1 Health 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 Agent Exam, Routine 11/16/2010 KATIE HUDSON MD V72.3 1 Health 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 Agent Exam, Routine 11/16/2010 YUKI HERNADEZ, BRITTANY Vazquez V72.31 Health 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 Agent Exam, Routine 11/16/2010 KATIE HUDSON MD V72.3 1 Health 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 Agent Exam, Routine 11/16/2010 KATIE HUDSON MD V72.3 1 Health 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 Agent Exam, Routine 11/16/2010 KATIE HUDSON MD V72.3 1 Health 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 Agent Exam, Routine 01/25/2011 BRITTANY MIRZA DO V04.81 [...] ADULT 09/18/2018 ALTHEA NEWMAN DO, Ot Z79.4 LYFT DRIVER (CURRENT) USE OF INSULIN 09/18/2018 ALTHEA NEWMAN [...] NONVE 10/19/2018 EVELYN SAMPSON DO, Ot Z79.84 LYFT DRIVER (CURRENT) USE OF ORAL HYPOGLYC 10/19/2018 EEVLYN SAMPSON DO, Ot Z86.73 PRSNL HX OF [...] Ot Z91.041 RADIOGRAPHIC DYE ALLERGY STATUS 10/19/2018 EVEYLN SAMPSON DO, Ot Z98.51 TUBAL LIGATION STATUS [...] NONVE 10/25/2018 EVELYN SAMPSON DO, Ot Z79.84 USP (CURRENT) USE OF ORAL HYPOGLYC 10/25/2018 EVELYN [...] (SEVERE) OBESITY DUE TO EXCESS CA 10/26/2018 EEVLYN SAMPSON DO, Ot E78.00 PURE HYPERCHOLESTEROLEMIA, UNSPECIFIED [...] NONVE 10/26/2018 EVELYN SAMPSON DO, Ot Z79.84 USP (CURRENT) USE OF ORAL HYPOGLYC 10/26/2018 EVELYN [...] ABDOMINAL PAIN 11/10/2018 KATIE BYERS MD Z79.4 LYFT DRIVER (CURRENT) USE OF INSULIN 11/10/2018 KATIE BYERS [...] ABDOMINAL PAIN 11/14/2018 KATIE BYERS MD Z79.4 USP (CURRENT) USE OF INSULIN 11/14/2018 KATIE BYERS [...] INDEX (BMI) 45.0-49.9, ADULT 11/20/2018 JEFFY CERVANTES MD Ot Z86.73 PRSNL HX OF TIA [...] JEFFY CERVANTES MD Ot Y92.[address] [facility] SNGL 11/20/2018 JEFFY CERVANTES MD, Ot [...] 45.0-49.9, ADULT 12/09/2018 ROVENSTINE DOKARTIK Ot Z79.84 USP (CURRENT) USE OF ORAL HYPOGLYC 12/09/2018 ROVENSTINE [...] 12/12/2018 OMAIRAVENSTINE DO KARTIK Trudy Ot Z79.84 USP (CURRENT) USE OF ORAL HYPOGLYC 12/12/2018 ROVENSTINE [...] 12/20/2018 ROVENSTINE DO KARTIK Trudy Ot Z79.84 USP (CURRENT) USE OF ORAL HYPOGLYC 12/20/2018 ROVENSTINE DO KARTIK Trudy Ot Z86.73 PRSNL HX OF TIA (TIA), AND CEREB INFRC W 12/20/2018 ROVENSTINE DO KARTIK Trudy Ot Z87.891 PERSONAL HISTORY OF NICOTINE DEPENDENCE 12/20/2018 ROVENSTINE DO KARTIK Trudy Ot Z90.49 ACQUIRED ABSENCE OF OTHER [...] ALTHEA Ot I25.10 ATHSCL HEART DISEASE OF [place] CORONARY 05/15/2019 NEWMAN DO, ALTHEA Ot I25.2 OLD MYOCARDIAL INFARCTION 05/15/2019 NEWMAN DO, ALTHEA Ot 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 05/15/2019 NEWMAN DO, ALTHEA Ot J44.9 CHRONIC OBSTRUCTIVE PULMONARY DISEASE, U 05/15/2019 NEWMAN DO, ALTHEA Ot M19.91 PRIMARY OSTEOARTHRITIS, UNSPECIFIED SITE 05/15/2019 NEWMAN DO, ALTHEA Ot R00.1 BRADYCARDIA, UNSPECIFIED 05/15/2019 NEWMAN DO, ALTHEA Ot R07.2 PRECORDIAL PAIN 05/15/2019 NEWMAN DO, ALTHEA Ot R11.2 NAUSEA WITH VOMITING, UNSPECIFIED 05/15/2019 NEWMAN DO, ALTHEA Ot R21 RASH AND OTHER NONSPECIFIC SKIN ERUPTION 05/15/2019 NEWMAN DO, ALTHEA Ot Z68.41 BODY MASS INDEX (BMI) 40.0-44.9, ADULT 05/15/2019 NEWMAN DO, ALTHEA Ot Z79.4 LYFT DRIVER (CURRENT) USE OF INSULIN 05/16/2019 NEWMAN DO, ALTHEA Ot E11.40 TYPE 2 DIABETES MELLITUS WITH DIABETIC N 05/16/2019 NEWMAN DO, ALTHEA Ot E66.01 MORBID (SEVERE) OBESITY DUE TO EXCESS CA 05/16/2019 NEWMAN DO, ALTHEA Ot E78.00 PURE HYPERCHOLESTEROLEMIA, UNSPECIFIED 05/16/2019 NEWMAN DO, ALTHEA Ot E78.5 HYPERLIPIDEMIA, UNSPECIFIED 05/16/2019 NEWMAN DO, ALTHEA Ot F32.9 MAJOR DEPRESSIVE DISORDER, SINGLE EPISOD 05/16/2019 NEWMAN DO, ALTHEA Ot I10 ESSENTIAL (PRIMARY) HYPERTENSION 05/16/2019 NEWMAN DO, ALTHEA Ot I25.10 ATHSCL HEART DISEASE OF [place] CORONARY 05/16/2019 NEWMAN DO, ALTHEA Ot I25.2 [...] ADULT 05/16/2019 PATY HERNADEZ ALTHEA Ot Z79.84 LYFT DRIVER (CURRENT) USE OF ORAL HYPOGLYC 05/16/2019 PATY [...] ALTHEA Ot I25.10 ATHSCL HEART DISEASE OF [place] CORONARY 05/16/2019 PATY HERNADEZ, ALTHEA Ot I25.2 [...] ADULT 05/16/2019 ALTHEA NEWMAN DO Ot Z79.4 USP (CURRENT) USE OF INSULIN 05/16/2019 ALTHEA NEWMAN DO Ot Z79.84 USP (CURRENT) USE OF ORAL HYPOGLYC 05/16/2019 ALTHEA [...] 06/11/2019 BLAYNE MCKEON DO Ot Z79. 84 USP (CURRENT) USE OF ORAL HYPOGLYC 06/11/2019 BLAYNE MCKEON DO Ot Z86. 73 PRSNL HX OF TIA (TIA), AND CEREB INFRC W 06/11/2019 BLAYNE MCKEON DO Ot Z87.891 PERSONAL HISTORY OF NICOTINE DEPENDENCE 06/11/2019 BLAYNE MCKEON DO Ot Z90. 49 ACQUIRED ABSENCE OF OTHER SPECIFIED PART 06/11/2019 BLAYNE MCKEON DO Ot Z90. 89 ACQUIRED ABSENCE OF OTHER ORGANS 06/11/2019 BLAYNE MCKEON DO Ot Z91.041 RADIOGRAPHIC DYE ALLERGY STATUS 06/11/2019 BLAYNE MCKEON DO Ot Z98. 51 TUBAL [...] 06/14/2019 BLAYNE MCKEON DO Ot Z79. 84 LYFT DRIVER (CURRENT) USE OF ORAL HYPOGLYC 06/14/2019 BLAYNE [...] 08/20/2019 ROVENSTINE DO, KARTIK Yates Ot Z79.84 LYFT DRIVER (CURRENT) USE OF ORAL HYPOGLYC 08/20/2019 ROVENSTINE [...] 08/22/2019 ROVENSTINE DO, KARTIK Yates Ot Z79.84 USP (CURRENT) USE OF ORAL HYPOGLYC 08/22/2019 ROVENSTINE DO, KARTIK Yates Ot Z86.73 PRSNL HX OF TIA (TIA), AND CEREB INFRC W 08/22/2019 ROVENSTINE DO, KARTIK Yates Ot Z87.891 PERSONAL HISTORY OF NICOTINE DEPENDENCE 08/22/2019 ROVENSTINE DOKARTIK Ot Z91.041 RADIOGRAPHIC DYE ALLERGY STATUS 09/20/2019 KARLEY MCKNIGHT MD, Ot E11.40 TYPE 2 DIABETES MELLITUS WITH DIABETIC N 09/20/2019 KARLEY MCKNIGHT MD, Ot E66.01 MORBID (SEVERE) OBESITY DUE TO EXCESS CA 09/20/2019 KARLEY MCKNIGHT MD, Ot F32.9 MAJOR DEPRESSIVE DISORDER, SINGLE EPISOD 09/20/2019 KARLEY MCKNIGHT MD, Ot I1 0 ESSENTIAL (PRIMARY) HYPERTENSION 09/20/2019 KARLEY MCKNIGHT MD, Ot J44.9 CHRONIC OBSTRUCTIVE PULMONARY DISEASE, U 09/20/2019 KARLEY MCKNIGHT MD, Ot L98.9 DISORDER OF THE SKIN AND SUBCUTANEOUS TI 09/20/2019 KARLEY MCKNIGHT MD, Ot S00.86XA INSECT BITE (NONVENOMOUS) OF OTHER PART 09/20/2019 KARLEY MCKNIGHT MD, Ot S40.861A INSECT BITE (NONVENOMOUS) OF RIGHT UPPER 09/20/2019 KARLEY MCKNIGHT MD, Ot S40.862A INSECT BITE (NONVENOMOUS) OF LEFT UPPER 09/20/2019 KARLEY MCKNIGHT MD, Ot S80.861A INSECT BITE (NONVENOMOUS), RIGHT LOWER L 09/20/2019 KARLEY MCKNIGHT MD, Ot S80.862A INSECT BITE (NONVENOMOUS), LEFT LOWER LE 09/20/2019 KARLEY MCKNIGHT MD, Ot W57.XXXA BIT/STUNG BY NONVENOM INSECT OTH NONVE 09/20/2019 KARLEY MCKNIGHT MD Ot Z79.84 USP (CURRENT) USE OF ORAL HYPOGLYC 09/20/2019 KARLEY MCKNIGHT MD, Ot Z86.73 PRSNL HX OF TIA (TIA), AND CEREB INFRC W 09/20/2019 KARLEY MCKNIGHT MD, Ot Z87.891 PERSONAL HISTORY OF NICOTINE DEPENDENCE 09/20/2019 KARLEY MCKNIGHT MD, Ot Z91.041 RADIOGRAPHIC DYE ALLERGY STATUS Procedures Code Description [place] [address] ROUT INE VENIPUNCTURE 03/16/2012 55253 UA W / CULTURE IF INDICATED 03/16/2012 81717 URIN E DRUG SCREEN (IN-HOUSE) 03/16/2012 39574 A1C (IN-HOUSE) 03/16/2012 43493 CBC 03/16/2012 21092 CMP 03/16/2012 86137 LIPI D PANEL 03/16/2012 8693979 GF R CALC (RESULT ONLY) 03/16/2012 70320 CULT URE URINE 03/18/201220246 JOIN T INJECTION- LARGE JOINT (SPECIFY MEDCIN DESCRIPTION) 03/22 73512 ROUT INE VENIPUNCTURE 03/08/2013 06391 A1C (IN-HOUSE) 03/08/2013 4797336 GF R CALC (RESULT ONLY) 03/08/2013 29382 CMP 03/08/2013 93353 LIPI D PANEL 03/08/201382209 JOIN T INJECTION- LARGE JOINT (SPECIFY MEDCIN DESCRIPTION) 06/06 52979 UA W / CULTURE IF INDICATED 06/06/2013 68661 CULT URE URINE 06/08/2013 Urology [facility] 09/26/2013 97145 A1C (IN-HOUSE) 09/26/2013 51753 UA W / CULTURE IF INDICATED 09/26/2013 25390 CULT URE URINE 09/28/2013 41195 OXIM ETRY - OVERNIGHT 10/07/2013 62685 A1C (IN-HOUSE) 02/06/2014 36036 JOIN T INJECTION- LARGE JOINT (SPECIFY MEDCIN DESCRIPTION) 02/06 J1040 DEPO MEDROL 80 MG INJ 02/06/2014 90307 ROUT INE VENIPUNCTURE 03/10/2014 8741652 GF R CALC (RESULT ONLY) 03/10/2014 83037 CMP 03/10/2014 [id number] EX CISION OF STOMACH, PYLORUS, ENDO, DIAG 11/18/2018 [id number] EX TIRPATION OF MATTER FROM STOMACH, PYLO [...] IU/L 0-32 Microalb/Creat Ratio, Randm Ur - 7 08:04 Creatinine, Urine 184.8 [...] 7-25 CREATININE 0.90 mg/dL 0.50-0.99 eGFR NON-AFR. IRANIAN 69 mL/min/1.73m2 > OR = 60 eGFR [...] 09/20/18 12:35 NRG QUANTITY OF GROWTH . [facility] FREE TEXT ENTRY 2 ID REPORTED 09/19/18 [...] culture - 10/19/18 13:45 Bacterial urine culture [id number] NRG COLONY COUNT >100,000/ML NRG FTX;REPORTABLE SUSCEPTIBILITY [...] NRG Blood erythrocyte morphology finding identification NORMAL [facility] Comprehensive metabolic panel - 11/10/18 16:10 [...] culture - 11/10/18 17:30 Bacterial urine culture [id number] NRG COLONY COUNT >100,000/ML NRG FTX;REPORTABLE SUSCEPTIBILITY [...] urinalysis with reflex to culture NO NRG Comprehensive metabolic panel - 06/11/19 17:21 Serum [...] Status Pt. Type Provider Facility Loc./Unit Complaint [id number] 06/08/2016 03:06:00 Document Registration [id number] 09/18/2019 14:54:00 15:28:00 DIS Outpatient JUAN LUIS CACERES, KARLEY Funes [facility] FS SKIN INFECTION [id number] 08/20/2019 12:51:00 15:00:00 DIS Emergency KARTIK MCCARTY DO [facility] FS N,V,D [id number] 06/11/2019 17:18:00 18:45:00 DIS Emergency BLAYNE MCKEON DO [facility] FS BACK PAIN [id number] 05/14/2019 20:50:00 12:18:00 DIS Inpatient ALTHEA NEWMAN DO, V [facility] 4TH NAUSEA,VOMITING,CHEST/T HROAT TIGHTNESS [id number] 12/08/2018 23:38:00 00:36:00 DIS Emergency KARTIK MCCARTY DO [facility] ER FS NAUSEA; VOMITIN G [id number] 11/17/2018 22:20:00 11:19:00 DIS Inpatient BILLY CACERES, JEFFY Vazquez [facility] 4TH ELEANOR, DEHYDRATION,FALLS ELECTROLYTE DISTURBANCES,FB [id number] 11/10/2018 16:01:00 21:03:00 DIS Emergency ZEESHAN CACERES, MELVIN Lopez [facility] FS ABD PAIN [id number] 10/19/2018 11:49:00 14:35:00 DIS Emergency EVELYN SAMPSON DO [facility] FS URINARY PAIN; RASH [id number] 09/17/2018 20:37:00 06/04/2 019 18:00:00 DIS Inpatient ALTHEA NEWMAN DO [facility] 4TH EYE PAIN AND DRAINAGE [id number] 01/15/2016 07:06:00 Document Registration [id number] 06/12/2014 14:34:00 06/12/2014 23:59: 59 CLS Outpatient KATIE HUDSON MD [id number] 03/10/2014 13:49:00 03/10/2014 23:59: 59 CLS Outpatient KATIE HUDSON MD [id number] 02/06/2014 14:56:00 02/06/2014 23:59: 59 CLS Outpatient BRITTANY MIRZA DO [id number] 02/06/2014 14:01:00 02/06/2014 23:59: 59 CLS Outpatient KATIE HUDSON MD [id number] 09/26/2013 13:12:00 09/26/2013 23:59: 59 CLS Outpatient KATIE HUDSON MD [id number] 09/26/2013 13:12:00 09/26/2013 23:59: 59 CLS Outpatient KATIE HUDSON MD [id number] 09/26/2013 12:43:00 09/26/2013 23:59: 59 CLS Outpatient BRITTANY MIRZA DO [id number] 06/06/2013 14:02:00 06/06/2013 23:59: 59 CLS Outpatient KATIE HUDSON MD [id number] 06/06/2013 13:04:00 06/06/2013 23:59: 59 CLS Outpatient BRITTANY MIRZA DO [id number] 03/08/2013 14:26:00 03/08/2013 23:59: 59 CLS Outpatient KATIE HUDSON MD [id number] 03/08/2013 14:26:00 03/08/2013 23:59: 59 CLS Outpatient KATIE HUDSON MD [id number] 10/25/2012 15:19:00 10/25/2012 23:59: 59 CLS Outpatient KATIE HUDSON MD [id number] 03/22/2012 13:00:00 03/22/2012 23:59: 59 CLS Outpatient BRITTANY MIRZA DO [id number] 03/16/2012 10:37:00 03/16/2012 23:59: 59 [place] [id number] 08/19/2011 09:42:00 08/19/2011 23:59:5 9 CLS Outpatient KATIE HUDSON MD [id number] 10/25/2012 15:19:00 Document Registration [id number] 10/22/2019 14:40:00 10/22/2019 23:59:5 9 CLS Outpatient KATIE HUDSON MD [facility] [id number] 03/29/2018 14:20:00 Document Registration [id number] 10/06/2017 16:00:00 Document Registration [id number] 01/26/2017 15:00:00 Document Registration [id number] 01/29/2017 16:06:00 Document Registration
== END 2019-11-12 15:19 | disposition home or self-care (01) ==
LOC: EDUNIT# 12:19 → ER FS 12:21
DX: N39.0 Urinary tract infection, site not specified (principal); R11.2 Nausea with vomiting, unspecified; R19.7 Diarrhea, unspecified; E66.01 Morbid (severe) obesity due to excess calories; Z68.41 Body mass index [BMI] 40.0-44.9, adult; Z91.041 Radiographic dye allergy status; I10 Essential (primary) hypertension; E78.00 Pure hypercholesterolemia, unspecified; E11.8 Type 2 diabetes mellitus with unspecified complications; F32.9 Major depressive disorder, single episode, unspecified; Z87.891 Personal history of nicotine dependence; Z86.73 Personal history of transient ischemic attack (TIA), and cerebral infarction without residual deficits; Z79.84 Long term (current) use of oral hypoglycemic drugs
CPT/HCPCS: 36415; 74022; 80053; 81000; 83880; 84484; 85025; 85610; 87077; 87088; 93005

== ENCOUNTER 2020-01-10 14:58 | Emergency (ER) | payer MEDICAID ==
[~2020-01-10] VITALS: Ht 167.7 cm; Wt 117.9 kg
[~2020-01-10 14:58] MED LIST changes: +CEPH-507 PO
--- NOTE | 2020-01-10 15:13 | ED GU-Female ---
General Chief Complaint: - Urinary Stated Complaint: BACK PAIN; UTI Nursing Triage Note: Patient states she was treated for a UTI 2 weeks ago, completed a 5 day course of antibiotics, states her symptoms briefly improved, then returned and worsened. She reports right lower back/flank pain and pain with urination. Nursing Sepsis Screen: No Definite Risk Source: patient Exam Limitations: no limitations History of Present Illness Date Seen by Provider: Jan 10, 2020 Time Seen by Provider: 15:00 Initial Comments The patient is a morbidly obese 64-year-old female who presents for evaluation of UTI symptoms as well as some right flank pain over the last 3 days. Kika trinh 2 weeks ago she was diagnosed with UTI and was prescribed antibiotics for 5 days and initially her symptoms improved. Then she noticed them starting to return and then eventually noticed the flank pain. She reports having had pyelonephritis and UTIs many times in the past and states that this feels the same. Because of her weight and her chronic knee issues she does not ambulate. She states that she lives with her son. She is alert and oriented 4, calm, and appears to be in no distress this time. Allergies and Home Medications Allergies Uncoded Allergies: IV CONTRAST (Adverse Reaction, Mild, HIVES, 09/17/18) Home Medications Amitriptyline HCl 50 Mg Tablet, 50 MG PO HS, (Reported) Atorvastatin Calcium 40 Mg Tablet, 40 MG PO HS, (Reported) Cephalexin 500 Mg Capsule, 500 MG PO BID Prescribed by: KARLEY MCKNIGHT on 11/12/19 1506 Gabapentin 600 Mg Tablet, 600 MG PO TID, (Reported) Ibuprofen 800 Mg Tablet, 800 MG PO TID, (Reported) Liraglutide 0.6 Mg/0.1 Ml Pen.injctr, 1.8 MG SC DAILY, (Reported) Loperamide HCl 2 Mg Tablet, 2 MG PO BID PRN Prescribed by: KARTIK MCCARTY on 08/20/19 1433 Losartan Potassium 50 Mg Tablet, 50 MG PO DAILY, (Reported) Metformin HCl 1,000 Mg Tablet, 1,000 MG PO BID, (Reported) LAST FILLED #60 02-20-19 Mupirocin 22 Gm Oint...g., 22 GM TP DAILY Prescribed by: KARTIK MCCARTY on 08/20/19 1433 Mupirocin 22 Gm Oint...g., 22 GM TP BID Prescribed by: KARLEY MCKNIGHT on 09/18/19 1508 Ondansetron 4 Mg Tab.rapdis, 4 MG PO Q6H PRN for NAUSEA/VOMITING-1ST LINE, (Reported) Ondansetron 4 Mg Tab.rapdis, 4 MG PO TID Prescribed by: KARTIK MCCARTY on 08/20/19 1433 Ondansetron 4 Mg Tab.rapdis, 4 MG PO BID Prescribed by: KARLEY MCKNIGHT on 11/12/19 1506 Oxybutynin Chloride 5 Mg Tablet, 5 MG PO TID, (Reported) Permethrin 60 Gm Cream..g., 60 GM TP DAILY Prescribed by: KARLEY MCKNIGHT on 09/18/19 1508 Phenazopyridine HCl 200 Mg Tablet, 1 TAB PO Q8H Prescribed by: LINDA CISNEROS on 06/11/19 1827 Sulfamethoxazole/Trimethoprim 1 Each Tablet, 1 EACH PO BID Prescribed by: KARTIK MCCARTY on 08/20/19 1433 Sulfamethoxazole/Trimethoprim 1 Each Tablet, 1 EACH PO BID Prescribed by: KARTIK MCCARTY on 08/20/19 1433 Patient Home Medication List Home Medication List Reviewed: Yes Review of Systems Review of Systems Constitutional: no symptoms reported EENTM: no symptoms reported Respiratory: no symptoms reported Cardiovascular: no symptoms reported Gastrointestinal: no symptoms reported Genitourinary: burning, flank pain (right) Musculoskeletal: no symptoms reported Skin: no symptoms reported Psychiatric/Neurological: No Symptoms Reported Endocrine: No Symptoms Reported Hematologic/Lymphatic: No Symptoms Reported All Other Systemes Reviewed Negative Unless Noted: Yes Past Yruwycu-Jbqkzy-Vebgka Hx Past Med/Social Hx: Reviewed Nursing Past Med/Soc Hx Patient Social History Alcohol Use: Denies Use Recreational Drug Use: No Smoking Status: Former Smoker Type Used: Cigarettes Former Smoker, Quit: Dec 07, 1994 2nd Hand Smoke Exposure: No Recent Foreign Travel: No Contact w/Someone Who Travel: No Recent Infectious Disease Expo: No Recent Hopitalizations: No Physical Abuse: No Sexual Abuse: No Mistreated: No Fear: No Immunizations Up To Date Tetanus Booster (TDap): Unknown Date of Pneumonia Vaccine: Apr 17, 2015 Seasonal Allergies Seasonal Allergies: No Past Medical History Surgeries: Yes (CYSTOSCOPIES, DILITATION URETHRAL STRICTURE) Appendectomy, Bladder Surgery, Section, Eye Surgery, Gallbladder, Tonsillectomy, Tubal Ligation Respiratory: Yes COPD Cardiac: Yes High Cholesterol, Hypertension Neurological: Yes (CVA W/ R SIDED WEAKNESS) Neuropathy, Stroke Genitourinary: Yes (TRIGONITIS) UTI-Chronic Gastrointestinal: No Musculoskeletal: Yes (CHRONIC KNEE PAIN) Arthritis Endocrine: Yes (MORBID OBESITY) Diabetes, Insulin dep HEENT: No (prior cataract surgeries) Cancer: No Psychosocial: Yes Depression Integumentary: Yes (L ORBITAL CELLULITIS, 2018 CHEEK CELLULITIS) Recent Skin Changes Blood Disorders: No Family Medical History Patient reports no known family medical history. No Pertinent Family Hx Physical Exam Vital Signs Vital Signs - First Documented 01/10/20 15:00 Temp 36.2 Pulse 70 Resp 20 B/P (MAP) 120/74 (89) Pulse Ox 97 O2 Delivery Room Air Capillary Refill : Less Than 3 Seconds Height, Weight, BMI Height: 5'6.00" Weight: 290lbs. 1.0oz. 131.647701nm; 41.00 BMI Method:Stated General Appearance: WD/WN, no apparent distress, obese HEENT: PERRL/EOMI, normal ENT inspection Neck: full range of motion, normal inspection Cardiovascular: regular rate, rhythm, no edema, no JVD Respiratory: lungs clear, normal breath sounds, no respiratory distress, no accessory muscle use Gastrointestinal: normal bowel sounds, non tender, soft, no pulsatile mass Back: no vertebral tenderness, CVA tenderness (R) Extremities: non-tender, normal inspection, no pedal edema Neurologic/Psychiatric: no motor/sensory deficits, alert, normal mood/affect, oriented x 3 Skin: normal color, warm/dry Progress/Results/Core Measures Suspected Sepsis Recent Fever Within 48 Hours: No Infection Criteria Present: Suspected New Infection New/Unexplained Altered Menta: No Sepsis Screen: No Definite Risk SIRS Temperature: Pulse: 70 Respiratory Rate: 20 Laboratory Tests 01/10/20 15:25: White Blood Count 6.4 Blood Pressure 120 /74 Mean: 89 Laboratory Tests 01/10/20 15:25: Creatinine 0.95, Platelet Count 218, Total Bilirubin 0.4 Results/Orders Lab Results Laboratory Tests Test 01/10/20 15:25 01/10/20 16:10 Range/Units White Blood Count 6.4 4.3-11.0 10^3/uL Red Blood Count 3.83 L 4.35-5.85 10^6/uL Hemoglobin 12.9 11.5-16.0 G/DL Hematocrit 38 35-52 % Mean Corpuscular Volume 99 80-99 FL Mean Corpuscular Hemoglobin 34 25-34 PG Mean Corpuscular Hemoglobin Concent 34 32-36 G/DL Red Cell Distribution Width 13.2 10.0-14.5 % Platelet Count 218 130-400 10^3/uL Mean Platelet Volume 9.3 7.4-10.4 FL Immature Granulocyte % (Auto) 1 % Neutrophils (%) (Auto) 65 42-75 % Lymphocytes (%) (Auto) 27 12-44 % Monocytes (%) (Auto) 6 0-12 % Eosinophils (%) (Auto) 1 0-10 % Basophils (%) (Auto) 0 0-10 % Neutrophils # (Auto) 4.2 1.8-7.8 X 10^3 Lymphocytes # (Auto) 1.7 1.0-4.0 X 10^3 Monocytes # (Auto) 0.4 0.0-1.0 X 10^3 Eosinophils # (Auto) 0.1 0.0-0.3 10^3/uL Basophils # (Auto) 0.0 0.0-0.1 10^3/uL Immature Granulocyte # (Auto) 0.0 0.0-0.1 10^3/uL Sodium Level 137 135-145 MMOL/L Potassium Level 4.7 3.6-5.0 MMOL/L Chloride Level 102 98-107 MMOL/L Carbon Dioxide Level 24 21-32 MMOL/L Anion Gap 11 5-14 MMOL/L Blood Urea Nitrogen 20 H 7-18 MG/DL Creatinine 0.95 0.60-1.30 MG/DL Estimat Glomerular Filtration Rate 59 BUN/Creatinine Ratio 21 Glucose Level 262 H 70-105 MG/DL Calcium Level 8.9 8.5-10.1 MG/DL Corrected Calcium 9.3 8.5-10.1 MG/DL Total Bilirubin 0.4 0.1-1.0 MG/DL Aspartate Amino Transf (AST/SGOT) 17 5-34 U/L Alanine Aminotransferase (ALT/SGPT) 13 0-55 U/L Alkaline Phosphatase 60 40-136 U/L Total Protein 6.7 6.4-8.2 GM/DL Albumin 3.5 3.2-4.5 GM/DL Urine Color YELLOW Urine Clarity SLT CLOUDY Urine pH 6.5 5-9 Urine Specific [place] 1.020 1.016-1.022 Urine Protein TRACE H NEGATIVE Urine Glucose (UA) TRACE H NEGATIVE Urine Ketones TRACE H NEGATIVE Urine Nitrite POSITIVE H NEGATIVE Urine Bilirubin NEGATIVE NEGATIVE Urine Urobilinogen 2.0 < = 1.0 MG/DL Urine Leukocyte Esterase NEGATIVE NEGATIVE Urine RBC (Auto) 2+ H NEGATIVE Urine RBC 10-25 H /HPF Urine WBC 10-25 H /HPF Urine Squamous Epithelial Cells 5-10 /HPF Urine Crystals NONE /LPF Urine Bacteria LARGE H /HPF Urine Casts NONE /LPF Urine Mucus NEGATIVE /LPF Urine Culture Indicated YES My Orders Orders - LINDA CISNEROS DO Ua Culture If Indicated (01/10/20 15:00) Cbc With Automated Diff (01/10/20 15:05) Comprehensive Metabolic Panel (01/10/20 15:05) Ct Abdomen/Pelvis Wo (01/10/20 15:05) Ns Iv 1000 Ml (Sodium Chloride 0.9%) (01/10/20 15:15) Ketorolac Injection (Toradol Injection) (01/10/20 15:15) Urine Culture (01/10/20 16:10) Medications Given in ED Current Medications Medications Dose Ordered Sig/Suzi Route Start Time Stop Time Status Last Admin Dose Admin Ketorolac Tromethamine 30 mg ONCE ONCE IVP 01/10/20 15:15 01/10/20 15:16 DC 01/10/20 15:30 30 MG Vital Signs/I&O 01/10/20 15:00 Temp 36.2 Pulse 70 Resp 20 B/P (MAP) 120/74 (89) Pulse Ox 97 O2 Delivery Room Air Capillary Refill : Less Than 3 Seconds Blood Pressure Mean: 89 Progress Note : Progress Note @1625 - patient updated on lab and imaging results. On my review of the [facility] imaging the right kidney does appear to have some slight inflammatory changes suggesting early acute pyelonephritis. Patient will go home with antibiotics. Advised patient to follow up with her PCP in the next 2-3 days and to return to the emergency Department immediately for new or worsening symptoms. Workup today fails to reveal any emergent pathology. The patient is stable for discharge. Diagnostic Imaging Diagonstic Imaging: CT Comments [facility]. [place], [place] NAME: MORALES WALKER [facility] REC#: [id number] PT STATUS: REG ER : 1955 PHYSICIAN: LINDA CISNEROS DO ADMIT DATE: 01/10/20/ER FS Signed Date of Exam:01/10/20 CT ABDOMEN/PELVIS WO INDICATION: Right flank pain. TECHNIQUE: Multiple contiguous axial images were obtained through the abdomen and pelvis without the use of intravenous contrast. Auto Exposure Controls were utilized during the CT exam to meet ALARA standards for radiation dose reduction. COMPARISON: Comparison is made to previous study of 06/11/2019. FINDINGS: Visualized portions of the lung bases show some mild basilar atelectasis. The liver shows no focal lesions. Spleen is unremarkable. The adrenals and pancreas were normal. Kidneys bilaterally show no hydronephrosis or radiopaque stone. There is no retroperitoneal mass or adenopathy. There is no ascites or abnormal fluid collection. Visualized bowel loops are unremarkable. IMPRESSION: No acute abnormality seen and no change from 06/11/2019. Dictated by: Dictated on workstation # [id number] Dict: 01/10/20 1608 Trans: 01/10/20 1614 [facility] [id number] Interpreted by: ROBERTA COATES MD Electronically signed by: ROBERTA COATES MD 01/10/20 1614 Departure Impression Primary Impression: Acute pyelonephritis Disposition: 01 HOME, SELF-CARE Condition: Stable Departure-Patient Inst. Decision time for Depature: 16:35 Referrals: [facility] [place] (PCP/Family) Primary Care Physician Patient Instructions: Kidney Infection (DC), Urinary Tract Infection, Adult (DC) Add. Discharge Instructions: Take the prescribed medication as directed. Follow-up with your doctor in the next 2-3 days. Return to the emergency Department immediately for new or worsening symptoms. Scripts Levofloxacin (Levofloxacin) 750 Mg Tablet 750 MG PO DAILY for 5 Days, #5 TAB Prov: LINDA ICSNEROS DO 01/10/20 LINDA CISNEROS DO Jan 10, 2020 15:13
[2020-01-10] MEDS ORDERED: KETOROLAC 30 MG/ML VIAL IVP ONE (15:15)
[2020-01-10] MEDS ORDERED: NS IV 1000 ML 1,000 ML IV SCH (15:15)
[2020-01-10 15:46] LABS: HEMATOCRIT 38 % (35-52); HEMOGLOBIN 12.9 G/DL (11.5-16.0); MEAN CORPUSCULAR HEMOGLOBIN 34 PG (25-34); MEAN CORPUSCULAR HGB CONC 34 G/DL (32-36); MEAN CORPUSCULAR VOLUME 99 FL (80-99); MEAN PLATELET VOLUME 9.3 FL (7.4-10.4); PLATELET COUNT 218 10^3/uL (130-400); WHITE BLOOD COUNT 6.4 10^3/uL (4.3-11.0)
[2020-01-10 15:47] LABS: BASOPHILS % (AUTO) 0 % (0-10); EOSINOPHILS # (AUTO) 0.1 10^3/uL (0.0-0.3); EOSINOPHILS % (AUTO) 1 % (0-10); LYMPHOCYTES # (AUTO) 1.7 X 10^3 (1.0-4.0); LYMPHOCYTES % (AUTO) 27 % (12-44); MONOCYTES # (AUTO) 0.4 X 10^3 (0.0-1.0); MONOCYTES % (AUTO) 6 % (0-12); NEUTROPHILS # (AUTO) 4.2 X 10^3 (1.8-7.8); NEUTROPHILS % (AUTO) 65 % (42-75)
[2020-01-10 15:54] LABS: ALBUMIN 3.5 GM/DL (3.2-4.5); BILIRUBIN,TOTAL 0.4 MG/DL (0.1-1.0); CALCIUM 8.9 MG/DL (8.5-10.1); CREATININE SERUM 0.95 MG/DL (0.60-1.30); POTASSIUM 4.7 MMOL/L (3.6-5.0); TOTAL PROTEIN 6.7 GM/DL (6.4-8.2)
--- NOTE | 2020-01-10 16:13 | Diagnostic Imaging Report ---
INDICATION: Right flank pain. TECHNIQUE: Multiple contiguous axial images were obtained through the abdomen and pelvis without the use of intravenous contrast. Auto Exposure Controls were utilized during the CT exam to meet ALARA standards for radiation dose reduction. COMPARISON: Comparison is made to previous study of 06/11/2019. FINDINGS: Visualized portions of the lung bases show some mild basilar atelectasis. The liver shows no focal lesions. Spleen is unremarkable. The adrenals and pancreas were normal. Kidneys bilaterally show no hydronephrosis or radiopaque stone. There is no retroperitoneal mass or adenopathy. There is no ascites or abnormal fluid collection. Visualized bowel loops are unremarkable. IMPRESSION: No acute abnormality seen and no change from 06/11/2019. Dictated by: Dictated on workstation # [id number]
[2020-01-10 16:24] LABS: BILIRUBIN,URINE NEGATIVE (NEGATIVE); CLARITY,URINE SLT CLOUDY; COLOR,URINE YELLOW; GLUCOSE, URINE (UA) TRACE (NEGATIVE); KETONES,URINE TRACE (NEGATIVE); NITRITE,URINE POSITIVE (NEGATIVE); PH,URINE 6.5 (5-9); PROTEIN,URINE TRACE (NEGATIVE)
[2020-01-10 16:25] LABS: BACTERIA,URINE LARGE /HPF; LEUKOCYTE ESTERASE ,URINE NEGATIVE (NEGATIVE)
[2020-01-10] MEDS ORDERED: LEVO750T39 PO (16:36)
[2020-01-10] MEDS ORDERED: cefTRIAXone FOR IV USE 1,000 MG in WATER (STERILE) FOR INJECTION 10 ML IV ONE (16:45)
[2020-01-10 17:05] VITALS: BP 148/66
== END 2020-01-10 17:05 | disposition home or self-care (01) ==
LOC: EDUNIT# 14:58 → ER FS 14:59
DX: N10 Acute pyelonephritis (principal); E66.01 Morbid (severe) obesity due to excess calories; E11.9 Type 2 diabetes mellitus without complications; E78.00 Pure hypercholesterolemia, unspecified; I10 Essential (primary) hypertension; Z68.41 Body mass index [BMI] 40.0-44.9, adult; Z87.891 Personal history of nicotine dependence; Z91.041 Radiographic dye allergy status; Z79.84 Long term (current) use of oral hypoglycemic drugs
CPT/HCPCS: 36415; 51702; 74176; 80053; 81000; 85025; 87077; 87088; 87186

== ENCOUNTER 2020-01-21 13:50 | Emergency (ER) | payer MEDICAID ==
[~2020-01-21] VITALS: Ht 167 cm; Wt 125.0 kg
[~2020-01-21 13:50] MED LIST changes: +LEVO750T39 PO
[2020-01-21 13:59] VITALS: BP 139/98
--- NOTE | 2020-01-21 14:07 | ED General ---
General Chief Complaint: Trauma-Non Activation Stated Complaint: FALL Source of Information: Patient, EMS, EMS Notes Reviewed, Old Records, RN/MD, RN Notes Reviewed Exam Limitations: No Limitations History of Present Illness Date Seen by Provider: Jan 21, 2020 Time Seen by Provider: 13:55 Initial Comments This patient is a 64-year-old female that presents to the emerge department via EMS with concern for possible fall. Patient states she slipped try to get hers elf out of the bathtub. Patient is morbidly obese with poor mobility and viscous around in a chair at home. We'll her family is at work. Patient states that she had a slip sliding out of the bathtub and hit her head. Patient has no obvious signs of injury had no loss of consciousness no specific complaints. Patient states that her chronic conditions and generalized fatigue related to her morbidly obesity and that they're unchanged and this is her chronic state of being. Review of medical records show same. Patient has no injuries and no specific complaints. I did discuss at length with patient about options. Patient be discharged home. I did discuss at length with patient about going into an assisted living facility versus fdc. And also possibly having home health visit with the patient daily. Patient will follow up with her primary care physician and discuss these options further. Patient be discharged home. Timing/Duration: Resolved Prior to Arrival Severity: Mild Associated Systoms: Denies Symptoms Allergies and Home Medications Allergies Uncoded Allergies: IV CONTRAST (Adverse Reaction, Mild, HIVES, 09/17/18) Home Medications Amitriptyline HCl 50 Mg Tablet, 50 MG PO HS, (Reported) Atorvastatin Calcium 40 Mg Tablet, 40 MG PO HS, (Reported) Cephalexin 500 Mg Capsule, 500 MG PO BID Prescribed by: KARLEY MCKNIGHT on 11/12/19 1506 Gabapentin 600 Mg Tablet, 600 MG PO TID, (Reported) Ibuprofen 800 Mg Tablet, 800 MG PO TID, (Reported) Levofloxacin 750 Mg Tablet, 750 MG PO DAILY Prescribed by: LINDA CISNEROS on 01/10/20 1636 Liraglutide 0.6 Mg/0.1 Ml Pen.injctr, 1.8 MG SC DAILY, (Reported) Loperamide HCl 2 Mg Tablet, 2 MG PO BID PRN Prescribed by: KARTIK MCCARTY on 08/20/19 1433 Losartan Potassium 50 Mg Tablet, 50 MG PO DAILY, (Reported) Metformin HCl 1,000 Mg Tablet, 1,000 MG PO BID, (Reported) LAST FILLED #60 02-20-19 Mupirocin 22 Gm Oint...g., 22 GM TP DAILY Prescribed by: KARTIK MCCARTY on 08/20/19 1433 Mupirocin 22 Gm Oint...g., 22 GM TP BID Prescribed by: KARLEY MCKNIGHT on 09/18/19 1508 Ondansetron 4 Mg Tab.rapdis, 4 MG PO Q6H PRN for NAUSEA/VOMITING-1ST LINE, (Reported) Ondansetron 4 Mg Tab.rapdis, 4 MG PO TID Prescribed by: KARTIK MCCARTY on 08/20/19 1433 Ondansetron 4 Mg Tab.rapdis, 4 MG PO BID Prescribed by: KARLEY MCKNIGHT on 11/12/19 1506 Oxybutynin Chloride 5 Mg Tablet, 5 MG PO TID, (Reported) Permethrin 60 Gm Cream..g., 60 GM TP DAILY Prescribed by: KARLEY MCKNIGHT on 09/18/19 1508 Phenazopyridine HCl 200 Mg Tablet, 1 TAB PO Q8H Prescribed by: LINDA CISNEROS on 06/11/19 1827 Sulfamethoxazole/Trimethoprim 1 Each Tablet, 1 EACH PO BID Prescribed by: KARTIK MCCARTY on 08/20/19 1433 Sulfamethoxazole/Trimethoprim 1 Each Tablet, 1 EACH PO BID Prescribed by: KARTIK MCCARTY on 08/20/19 1433 Patient Home Medication List Home Medication List Reviewed: Yes Review of Systems Review of Systems Constitutional: No no symptoms reported; see HPI; No chills, No diaphoresis, No dizziness, No fever, No malaise, No weakness, No weight gain, No weight loss, No other EENTM: No see HPI, No no symptoms reported, No ear discharge, No hearing loss, No ear pain, No blurred vision, No double vision, No eye pain, No tearing, No vision loss, No dental problems, No hoarseness, No mouth pain, No mouth swelling, No epistaxis, No nose congestion, No nose pain, No throat pain, No throat swelling, No other Respiratory: No no symptoms reported, No see HPI, No cough, No dyspnea on exertion, No hemoptysis, No orthopnea, No phlegm, No short of breath, No stridor, No wheezing, No other Cardiovascular: No no symptoms reported, No see HPI, No chest pain, No edema, No Hx of Intervention, No palpitations, No syncope, No vascular heart diseas, No other Gastrointestinal: No RUQ, No LUQ, No RLQ, No LLQ, No no symptoms reported, No see HPI, No abdominal pain, No constipation, No diarrhea, No dysphagia, No hematemesis, No heartburn, No jaundice, No loss of appetite, No melena, No nausea, No vomiting, No other Genitourinary: No no symptoms reported, No see HPI, No decreased output, No discharge, No dysuria, No frequency, No hematuria, No hesitancy, No incontinence, No nocturia, No pain, No other Musculoskeletal: No no symptoms reported, No see HPI, No back pain, No gout, No joint pain, No joint swelling, No muscle pain, No muscle stiffness, No muscle cramps, No muscle twitching, No muscle weakness, No neck pain, No other Skin: No no symptoms reported, No see HPI, No change in color, No change in hair/nails, No dryness, No hx of skin cancer, No lesions, No lumps, No pruritus, No rash, No other Psychiatric/Neurological: Denies No Symptoms Reported, Denies See HPI, Denies Anxiety, Denies Depressed, Denies Emotional Problems, Denies Headache, Denies Numbness, Denies Paresthesia, Denies Pre-Existing Deficit, Denies Seizure, Denies Tingling, Denies Tremors, Denies Weakness, Denies Other Hematologic/Lymphatic: Denies No Symptoms Reported, Denies See HPI, Denies Anemia, Denies Blood Clots, Denies Easy Bleeding, Denies Easy Bruising, Denies Swollen Glands, Denies Other All Other Systems Reviewed Negative Unless Noted: Yes Past Xatargd-Ycnywf-Nkljuw Hx Patient Social History Alcohol Use: Denies Use Recreational Drug Use: No Smoking Status: Former Smoker Type Used: Cigarettes Former Smoker, Quit: Dec 07, 1994 2nd Hand Smoke Exposure: No Recent Hopitalizations: No Physical Abuse: No Sexual Abuse: No Mistreated: No Fear: No Immunizations Up To Date Tetanus Booster (TDap): Unknown Date of Pneumonia Vaccine: Apr 17, 2015 Seasonal Allergies Seasonal Allergies: No Past Medical History Surgeries: Yes (CYSTOSCOPIES, DILITATION URETHRAL STRICTURE) Appendectomy, Bladder Surgery, Section, Eye Surgery, Gallbladder, Tonsillectomy, Tubal Ligation Respiratory: Yes COPD Cardiac: Yes High Cholesterol, Hypertension Neurological: Yes (CVA W/ R SIDED WEAKNESS) Neuropathy, Stroke Genitourinary: Yes (TRIGONITIS) UTI-Chronic Gastrointestinal: No Musculoskeletal: Yes (CHRONIC KNEE PAIN) Arthritis Endocrine: Yes (MORBID OBESITY) Diabetes, Insulin dep HEENT: No (prior cataract surgeries) Cancer: No Psychosocial: Yes Depression Integumentary: Yes (L ORBITAL CELLULITIS, 2018 CHEEK CELLULITIS) Recent Skin Changes Blood Disorders: No Family Medical History Patient reports no known family medical history. No Pertinent Family Hx Physical Exam Vital Signs Capillary Refill : Height, Weight, BMI Height: 5'6.00" Weight: 290lbs. 1.0oz. 131.240752pt; 41.00 BMI Method:Stated General Appearance: No Apparent Distress, WD/WN HEENT: PERRL/EOMI, TMs Normal, Normal ENT Inspection, Pharynx Normal Neck: Full Range of Motion, Normal Inspection, Non Tender, Supple, Carotid Bruit Respiratory: Chest Non Tender, Lungs Clear, Normal Breath Sounds, No Accessory Muscle Use, No Respiratory Distress Cardiovascular: Regular Rate, Rhythm, No Edema, No Gallop, No JVD, No Murmur, Normal Peripheral Pulses Gastrointestinal: Normal Bowel Sounds, No Organomegaly, No Pulsatile Mass, Non Tender, Soft Back: Normal Inspection, No CVA Tenderness, No Vertebral Tenderness Extremity: Normal Capillary Refill, Normal Inspection, Normal Range of Motion, Non Tender, No Calf Tenderness, No Pedal Edema Neurologic/Psychiatric: Alert, Oriented x3, No Motor/Sensory Deficits, Normal Mood/Affect Skin: Normal Color, Warm/Dry Comments Patient is morbidly obese. patient's chronic conditions are stable per patient. Progress/Results/Core Measures Suspected Sepsis SIRS Temperature: Pulse: Respiratory Rate: Blood Pressure / Mean: Results/Orders Vital Signs/I&O Capillary Refill : Progress Note : Time: 14:04 Progress Note This patient is a 64-year-old female that presents to the emerge department via EMS with concern for possible fall. Patient states she slipped try to get herself out of the bathtub. Patient is morbidly obese with poor mobility and viscous around in a chair at home. We'll her family is at work. Patient states that she had a slip sliding out of the bathtub and hit her head. Patient has no obvious signs of injury had no loss of consciousness no specific complaints. Patient states that her chronic conditions and generalized fatigue related to her morbidly obesity and that they're unchanged and this is her chronic state of being. Review of medical records show same. Patient has no injuries and no specific complaints. I did discuss at length with patient about options. Patient be discharged home. I did discuss at length with patient about going into an assisted living facility versus fdc. And also possibly having home health visit with the patient daily. Patient will follow up with her primary care physician and discuss these options further. Patient be discharged home. Departure Impression Primary Impression: General medical exam Additional Impression: Morbid obesity Disposition: 01 HOME, SELF-CARE Condition: Stable Departure-Patient Inst. Referrals: [facility] [place] (PCP/Family) Primary Care Physician Add. Discharge Instructions: Continue all home medical care. Safety in the home when transferring from chair to another furniture or tub. Discuss with your PCP about possibly having home health services come and assist you on activities of daily living. Also discussed with PCP and family about possible placement in assisted living versus fdc. Chronic conditions. Appear to Be stable. All discharge instructions reviewed with patient and/or family. Voiced u nderstanding. KARLEY MKCNIGHT MD Jan 21, 2020 14:07
== END 2020-01-21 14:17 | disposition home or self-care (01) ==
LOC: EDUNIT# 13:50 → ER FS 13:51
DX: E66.01 Morbid (severe) obesity due to excess calories (principal); I10 Essential (primary) hypertension; F32.9 Major depressive disorder, single episode, unspecified; E11.9 Type 2 diabetes mellitus without complications; E78.00 Pure hypercholesterolemia, unspecified; Z68.41 Body mass index [BMI] 40.0-44.9, adult; Z87.891 Personal history of nicotine dependence; Z91.041 Radiographic dye allergy status; Z79.84 Long term (current) use of oral hypoglycemic drugs
CPT/HCPCS: 99283

== ENCOUNTER 2020-10-23 13:19 | Inpatient (IN) | payer MEDICAID ==
[~2020-10-23] VITALS: Ht 167.6 cm; Wt 131.6 kg
[~2020-10-23 13:19] MED LIST changes: -CIPR500T4 PO; +CIPR500T5 PO; -SULF1TAB35 PO; +SULF1TAB38 PO
[2020-10-23 13:59] LABS: WHITE BLOOD COUNT 8.4 10^3/uL (4.3-11.0)
[2020-10-23 14:00] LABS: BASOPHILS % (AUTO) 0 % (0-10); EOSINOPHILS % (AUTO) 1 % (0-10); HEMATOCRIT 40 % (35-52); HEMOGLOBIN 14.1 G/DL (11.5-16.0); LYMPHOCYTES % (AUTO) 23 % (12-44); MEAN CORPUSCULAR HEMOGLOBIN 35 PG (25-34); MEAN CORPUSCULAR HGB CONC 36 G/DL (32-36); MEAN CORPUSCULAR VOLUME 99 FL (80-99); MEAN PLATELET VOLUME 8.9 FL (7.4-10.4); MONOCYTES % (AUTO) 6 % (0-12); NEUTROPHILS % (AUTO) 70 % (42-75); PLATELET COUNT 228 10^3/uL (130-400)
[2020-10-23 14:01] LABS: EOSINOPHILS # (AUTO) 0.1 10^3/uL (0.0-0.3); LYMPHOCYTES # (AUTO) 1.9 X 10^3 (1.0-4.0); MONOCYTES # (AUTO) 0.5 X 10^3 (0.0-1.0); NEUTROPHILS # (AUTO) 5.8 X 10^3 (1.8-7.8)
[2020-10-23 14:23] LABS: ALBUMIN 4.3 GM/DL (3.2-4.5); BILIRUBIN,TOTAL 0.5 MG/DL (0.1-1.0); CALCIUM 8.9 MG/DL (8.5-10.1); CREATININE SERUM 0.95 MG/DL (0.60-1.30); POTASSIUM 4.1 MMOL/L (3.6-5.0); TOTAL PROTEIN 7.1 GM/DL (6.4-8.2)
--- NOTE | 2020-10-23 14:55 | ED General ---
General Chief Complaint: - Urinary Stated Complaint: TROUBLE URINATING Nursing Triage Note: Patient presents to the ED with c/o difficulty and frequency urinating. Patient states on Monday she started urinating frequently and it was burning. She also reports nausea since Monday. Source of Information: Patient History of Present Illness Date Seen by Provider: Oct 23, 2020 Time Seen by Provider: 13:31 Initial Comments 65-year-old female presenting with complaints of over a week of pain difficulty urinating, vomiting, diarrhea. She states that she has been mostly lying down for the last several days. She has had subjective fever chills. She has had recurrent ear infections in the past. She overall felt bad and was having incontinence of urine. She finally was able to get a ride to come to the emergency department today. Timing/Duration: 4-5 Days Associated Systoms: No Chest Pain, No Cough, No Diaphoresis; Fever/Chills (Subjective); No Headaches, No Loss of Appetite; Malaise, Nausea/Vomiting; No Rash, No Seizure, No Shortness of Air, No Syncope; Weakness (Generalized) Allergies and Home Medications Allergies Uncoded Allergies: IV CONTRAST (Adverse Reaction, Mild, HIVES, 09/17/18) Home Medications Amitriptyline HCl 50 Mg Tablet, 50 MG PO HS, (Reported) Atorvastatin Calcium 40 Mg Tablet, 40 MG PO HS, (Reported) Cephalexin 500 Mg Capsule, 500 MG PO BID Prescribed by: KRALEY MCKNIGHT on 11/12/19 1506 Gabapentin 600 Mg Tablet, 600 MG PO TID, (Reported) Ibuprofen 800 Mg Tablet, 800 MG PO TID, (Reported) Levofloxacin 750 Mg Tablet, 750 MG PO DAILY Prescribed by: LINDA CISNEROS on 01/10/20 1636 Liraglutide 0.6 Mg/0.1 Ml Pen.injctr, 1.8 MG SC DAILY, (Reported) Loperamide HCl 2 Mg Tablet, 2 MG PO BID PRN Prescribed by: KARTIK MCCARTY on 08/20/19 1433 Losartan Potassium 50 Mg Tablet, 50 MG PO DAILY, (Reported) Metformin HCl 1,000 Mg Tablet, 1,000 MG PO BID, (Reported) LAST FILLED #60 02-20-19 Mupirocin 22 Gm Oint...g., 22 GM TP DAILY Prescribed by: KARTIK MCCARTY on 08/20/19 1433 Mupirocin 22 Gm Oint...g., 22 GM TP BID Prescribed by: KARLEY MCKNIGHT on 09/18/19 1508 Ondansetron 4 Mg Tab.rapdis, 4 MG PO Q6H PRN for NAUSEA/VOMITING-1ST LINE, (Reported) Ondansetron 4 Mg Tab.rapdis, 4 MG PO TID Prescribed by: KARTIK MCCARTY on 08/20/19 1433 Ondansetron 4 Mg Tab.rapdis, 4 MG PO BID Prescribed by: KARLEY MCKNIGHT on 11/12/19 1506 Oxybutynin Chloride 5 Mg Tablet, 5 MG PO TID, (Reported) Permethrin 60 Gm Cream..g., 60 GM TP DAILY Prescribed by: KARLEY MCKNIGHT on 09/18/19 1508 Phenazopyridine HCl 200 Mg Tablet, 1 TAB PO Q8H Prescribed by: LINDA CISNEROS on 06/11/19 1827 Sulfamethoxazole/Trimethoprim 1 Each Tablet, 1 EACH PO BID Prescribed by: KARTIK MCCARTY on 08/20/19 1433 Sulfamethoxazole/Trimethoprim 1 Each Tablet, 1 EACH PO BID Prescribed by: KARTIK MCCARTY on 08/20/19 1433 Patient Home Medication List Home Medication List Reviewed: Yes Review of Systems Review of Systems Constitutional: see HPI EENTM: no symptoms reported Respiratory: no symptoms reported Cardiovascular: no symptoms reported Gastrointestinal: see HPI Genitourinary: see HPI Musculoskeletal: no symptoms reported Skin: No rash Psychiatric/Neurological: Denies Headache Past Jinlppe-Abziej-Ahpopq Hx Patient Social History Tobacco Use?: No Substance use?: No Alcohol Use?: No Pt feels they are or have been: No Immunizations Up To Date Tetanus Booster (TDap): Unknown Seasonal Allergies Seasonal Allergies: No Past Medical History Surgeries: Yes (CYSTOSCOPIES, DILITATION URETHRAL STRICTURE) Appendectomy, Bladder Surgery, Section, Eye Surgery, Gallbladder, Tonsillectomy, Tubal Ligation Respiratory: Yes COPD Cardiac: Yes High Cholesterol, Hypertension Neurological: Yes (CVA W/ R SIDED WEAKNESS) Neuropathy, Stroke Genitourinary: Yes (TRIGONITIS) UTI-Chronic Gastrointestinal: No Musculoskeletal: Yes (CHRONIC KNEE PAIN) Arthritis Endocrine: Yes (MORBID OBESITY) Diabetes, Insulin dep HEENT: No (prior cataract surgeries) Cancer: No Psychosocial: Yes Depression Integumentary: Yes (L ORBITAL CELLULITIS, 2018 CHEEK CELLULITIS) Recent Skin Changes Blood Disorders: No Family Medical History Patient reports no known family medical history. No Pertinent Family Hx Physical Exam Vital Signs Vital Signs - First Documented 10/23/20 13:57 Temp 36.0 Pulse 74 Resp 15 B/P (MAP) 154/79 (104) Pulse Ox 96 O2 Delivery Room Air Capillary Refill : Less Than 3 Seconds Height, Weight, BMI Height: 5'6.00" Weight: 290lbs. 1.0oz. [id number]; 44.00 BMI Method:Stated General Appearance: Obese HEENT: PERRL/EOMI, Pharynx Normal Neck: Full Range of Motion, Supple Respiratory: Chest Non Tender, No Accessory Muscle Use, No Respiratory Distress, Decreased Breath Sounds Cardiovascular: Regular Rate, Rhythm, Normal Peripheral Pulses Gastrointestinal: Non Tender, Soft Rectal: Deferred Extremity: Normal Capillary Refill Neurologic/Psychiatric: Alert, Oriented x3 Skin: Warm/Dry Focused Exam Lactate Level 10/23/20 13:43: Lactic Acid Level 4.99*H 10/23/20 16:15: Lactic Acid Level 2.69*H Lactic Acid Level Laboratory Tests Test 10/23/20 13:43 10/23/20 16:15 Lactic Acid Level 4.99 MMOL/L (0.50-2.00) *H 2.69 MMOL/L (0.50-2.00) *H Progress/Results/Core Measures Suspected Sepsis SIRS Temperature: Pulse: 74 Respiratory Rate: 15 Laboratory Tests 10/23/20 13:43: White Blood Count 8.4 Blood Pressure 154 /79 Mean: 104 10/23/20 13:43: Lactic Acid Level 4.99*H 10/23/20 16:15: Lactic Acid Level 2.69*H Laboratory Tests 10/23/20 13:43: Creatinine 0.95, Platelet Count 228, Total Bilirubin 0.5 Results/Orders Lab Results Laboratory Tests Test 10/23/20 13:43 10/23/20 14:50 10/23/20 16:15 Range/Units White Blood Count 8.4 4.3-11.0 10^3/uL Red Blood Count 4.00 L 4.35-5.85 10^6/uL Hemoglobin 14.1 11.5-16.0 G/DL Hematocrit 40 35-52 % Mean Corpuscular Volume 99 80-99 FL Mean Corpuscular Hemoglobin 35 H 25-34 PG Mean Corpuscular Hemoglobin Concent 36 32-36 G/DL Red Cell Distribution Width 12.5 10.0-14.5 % Platelet Count 228 130-400 10^3/uL Mean Platelet Volume 8.9 7.4-10.4 FL Immature Granulocyte % (Auto) 1 % Neutrophils (%) (Auto) 70 42-75 % Lymphocytes (%) (Auto) 23 12-44 % Monocytes (%) (Auto) 6 0-12 % Eosinophils (%) (Auto) 1 0-10 % Basophils (%) (Auto) 0 0-10 % Neutrophils # (Auto) 5.8 1.8-7.8 X 10^3 Lymphocytes # (Auto) 1.9 1.0-4.0 X 10^3 Monocytes # (Auto) 0.5 0.0-1.0 X 10^3 Eosinophils # (Auto) 0.1 0.0-0.3 10^3/uL Basophils # (Auto) 0.0 0.0-0.1 10^3/uL Immature Granulocyte # (Auto) 0.0 0.0-0.1 10^3/uL Sodium Level 135 135-145 MMOL/L Potassium Level 4.1 3.6-5.0 MMOL/L Chloride Level 101 98-107 MMOL/L Carbon Dioxide Level 19 L 21-32 MMOL/L Anion Gap 15 H 5-14 MMOL/L Blood Urea Nitrogen 20 H 7-18 MG/DL Creatinine 0.95 0.60-1.30 MG/DL Estimat Glomerular Filtration Rate 59 BUN/Creatinine Ratio 21 Glucose Level 155 H 70-105 MG/DL Lactic Acid Level 4.99 *H 2.69 *H 0.50-2.00 MMOL/L Calcium Level 8.9 8.5-10.1 MG/DL Corrected Calcium 8.7 8.5-10.1 MG/DL Total Bilirubin 0.5 0.1-1.0 MG/DL Aspartate Amino Transf (AST/SGOT) 21 5-34 U/L Alanine Aminotransferase (ALT/SGPT) 20 0-55 U/L Alkaline Phosphatase 54 40-136 U/L Total Protein 7.1 6.4-8.2 GM/DL Albumin 4.3 3.2-4.5 GM/DL Lipase 35 8-78 U/L Urine Color YELLOW Urine Clarity CLOUDY Urine pH 6.0 5-9 Urine Specific [place] >=1.030 1.016-1.022 Urine Protein 2+ H NEGATIVE Urine Glucose (UA) NEGATIVE NEGATIVE Urine Ketones NEGATIVE NEGATIVE Urine Nitrite POSITIVE H NEGATIVE Urine Bilirubin NEGATIVE NEGATIVE Urine Urobilinogen 0.2 < = 1.0 MG/DL Urine Leukocyte Esterase NEGATIVE NEGATIVE Urine RBC (Auto) TRACE-I NEGATIVE Urine RBC 5-10 H /HPF Urine WBC 5-10 H /HPF Urine Squamous Epithelial Cells 10-25 H /HPF Urine Crystals NONE /LPF Urine Bacteria LARGE H /HPF Urine Casts PRESENT /LPF Urine Hyaline Casts 0-2 H /LPF Urine Mucus SMALL H /LPF Urine Culture Indicated YES Urine Opiates Screen NEGATIVE NEGATIVE Urine Oxycodone Screen NEGATIVE NEGATIVE Urine Methadone Screen NEGATIVE NEGATIVE Urine Propoxyphene Screen NEGATIVE NEGATIVE Urine Barbiturates Screen NEGATIVE NEGATIVE Ur Tricyclic Antidepressants Screen NEGATIVE NEGATIVE Urine Phencyclidine Screen NEGATIVE NEGATIVE Urine Amphetamines Screen NEGATIVE NEGATIVE Urine Methamphetamines Screen NEGATIVE NEGATIVE Urine Benzodiazepines Screen POSITIVE H NEGATIVE Urine Cocaine Screen NEGATIVE NEGATIVE Urine Cannabinoids Screen NEGATIVE NEGATIVE My Orders Orders - MIHIR BARNEY MD Ua Culture If Indicated (10/23/20 13:32) Drug Screen Stat (Urine) (10/23/20 13:32) Comprehensive Metabolic Panel (10/23/20 13:34) Lipase (10/23/20 13:34) Ed Iv/Invasive Line Start (10/23/20 13:34) Cbc With Automated Diff (10/23/20 13:34) Blood Culture (10/23/20 13:34) Lactic Acid Analyzer (10/23/20 13:34) Ct Abdomen/Pelvis Wo (10/23/20 14:58) Ns Iv 1000 Ml (Sodium Chloride 0.9%) (10/23/20 14:58) Fentanyl Inj (Sublimaze Injection) (10/23/20 14:58) Ondansetron Injection (Zofran Injectio (10/23/20 14:58) Pantoprazole Injection (Protonix Injecti (10/23/20 14:58) Urine Culture (10/23/20 14:50) Ceftriaxone (Rocephin) (10/23/20 15:13) Ns Iv 1000 Ml (Sodium Chloride 0.9%) (10/23/20 15:13) Vital Signs/I&O 10/23/20 10/23/20 13:57 17:20 Temp 36.0 36.0 Pulse 74 79 Resp 15 15 B/P (MAP) 154/79 (104) 162/78 (104) Pulse Ox 96 98 O2 Delivery Room Air Room Air Capillary Refill : Less Than 3 Seconds Blood Pressure Mean: 104 Progress Note #1: Progress Note Check labs and urine. To be able to get urine specimen the Jones catheter was placed and since patient was stating that she was having incontinence of urine. For the subjective fever chills blood cultures and lactic acid were also ordered. Progress Note #2: Progress Note Labs showed a stable white blood cell count but she does have elevated lactic acid 4.99. Her BUN and creatinine were elevated for dehydration. Her urine showed signs of infection from the Jones catheter specimen obtained during placement. As she was complaining of some mild diffuse abdominal pain on exam a CT scan of abdomen pelvis was also ordered. This did not demonstrate any acute significant anomaly. Will discuss with Dr. Downs for the [facility] clinic about admission since the patient follows with Dr. Celis Progress Note #3: Progress Note Dr. Downs accepted the patient for [facility] admission. Based off prior urine culture results she has had E. coli before that was sensitive to Rocephin so this was started in addition to additional fluids. A repeat lactic acid done prior to transfer showed her lactate had come down to 2.69 from 4.99. Diagnostic Imaging Diagonstic Imaging: CT Plain Films/CT/US/NM/MRI: abdomen, pelvis Comments NAME: MORALES WALKER [facility] REC#: [id number] PT STATUS: REG ER : 1955 PHYSICIAN: MIHIR BARNEY MD ADMIT DATE: 10/23/20/ER FS Draft Date of Exam:10/23/20 CT ABDOMEN/PELVIS WO PROCEDURE: CT abdomen and pelvis without contrast. TECHNIQUE: Multiple contiguous axial images were obtained through the abdomen and pelvis without the use of intravenous contrast. Auto Exposure Controls were utilized during the CT exam to meet ALARA standards for radiation dose reduction. INDICATION: Nausea, vomiting and diarrhea as well as dysuria. COMPARISON: Correlation is made with prior CT from 01/10/2020. FINDINGS: Imaging through lung bases demonstrates some scarring or atelectasis in the left lower lobe. No discrete liver mass is identified. Gallbladder appears to be surgically absent. There is no biliary ductal dilatation. Pancreas and spleen are unremarkable. No adrenal mass is identified. No renal calculi or hydronephrosis is detected. Aorta is nonaneurysmal. There appears to be significant diastasis of the rectus abdominis musculature with laxity of the anterior abdominal wall. The small and large bowel loops appear to be normal caliber. No obstruction is seen. There is no free fluid or fluid collection. The bladder is decompressed by a Jones catheter. Uterus is unremarkable. No inflammatory change is seen. IMPRESSION: Essentially unremarkable noncontrast CT of the abdomen and pelvis. No acute abnormality is detected. Dictated on workstation # [id number] Dict: 10/23/20 1524 Trans: 10/23/20 1529 [facility] [id number] Interpreted by: GLENDY HAYES MD Electronically signed by: Reviewed: Reviewed by [place] Departure Communication (Admissions) Time/Spoke to Admitting Phy: 16:[address] Downs for the [facility] service and he accepted the patient for admission for sepsis and UTI. Treat with Rocephin and IV fluids based off of prior culture results Impression Primary Impression: Sepsis Qualified Codes: A41.9 - Sepsis, unspecified organism Additional Impressions: Cystitis with hematuria Dehydration Nausea vomiting and diarrhea Disposition: 30 STILL A PATIENT Condition: Stable Admissions Decision to Admit Reason: Admit from ER (General) Decision to Admit/Date: Oct 23, 2020 Time/Decision to Admit Time: 16:35 Departure-Patient Inst. Referrals: [facility] (PCP/Family) Primary Care Physician MIHIR BARNEY MD Oct 23, 2020 14:55
[2020-10-23] MEDS ORDERED: NS IV 1000 ML 1,000 ML IV STA ×2 (14:58→15:13)
[2020-10-23] MEDS ORDERED: fentaNYL INJ 100 MCG/2 ML AMP IVP STA (14:58)
[2020-10-23] MEDS ORDERED: ONDANSETRON 4 MG/2 ML (SDV) Z0FRAN IVP STA (14:58)
[2020-10-23] MEDS ORDERED: PANTOPRAZOLE 40 MG (PROTONIX) VIAL IV STA (14:58)
[2020-10-23 15:05] LABS: CLARITY,URINE CLOUDY; COLOR,URINE YELLOW
[2020-10-23 15:06] LABS: BACTERIA,URINE LARGE /HPF; BILIRUBIN,URINE NEGATIVE (NEGATIVE); GLUCOSE, URINE (UA) NEGATIVE (NEGATIVE); HYALINE CASTS, URINE 0-2 /LPF; KETONES,URINE NEGATIVE (NEGATIVE); LEUKOCYTE ESTERASE ,URINE NEGATIVE (NEGATIVE); NITRITE,URINE POSITIVE (NEGATIVE); PROTEIN,URINE 2+ (NEGATIVE)
[2020-10-23 15:09] LABS: AMPHETAMINE SCREEN, URINE NEGATIVE (NEGATIVE); BARBITURATE SCREEN URINE NEGATIVE (NEGATIVE); BENZODIAZEPINES SCREEN URINE POSITIVE (NEGATIVE); CANNABINOID SCREEN, URINE NEGATIVE (NEGATIVE); COCAINE SCREEN URINE NEGATIVE (NEGATIVE); METHADONE STAT NEGATIVE (NEGATIVE); METHAMPHETAMINE SCREEN URINE S NEGATIVE (NEGATIVE); OPIATE SCREEN URINE NEGATIVE (NEGATIVE); OXYCODONE STAT NEGATIVE (NEGATIVE); PROPOXYPHENE STAT NEGATIVE (NEGATIVE); TRICYCLIC ANTIDEPRESSANTS SCRE NEGATIVE (NEGATIVE)
[2020-10-23] MEDS ORDERED: cefTRIAXone 1,000 MG in WATER (STERILE) FOR INJECTION 10 ML IV STA (15:13)
--- NOTE | 2020-10-23 15:29 | Diagnostic Imaging Report ---
PROCEDURE: CT abdomen and pelvis without contrast. TECHNIQUE: Multiple contiguous axial images were obtained through the abdomen and pelvis without the use of intravenous contrast. Auto Exposure Controls were utilized during the CT exam to meet ALARA standards for radiation dose reduction. INDICATION: Nausea, vomiting and diarrhea as well as dysuria. COMPARISON: Correlation is made with prior CT from 01/10/2020. FINDINGS: Imaging through lung bases demonstrates some scarring or atelectasis in the left lower lobe. No discrete liver mass is identified. Gallbladder appears to be surgically absent. There is no biliary ductal dilatation. Pancreas and spleen are unremarkable. No adrenal mass is identified. No renal calculi or hydronephrosis is detected. Aorta is nonaneurysmal. There appears to be significant diastasis of the rectus abdominis musculature with laxity of the anterior abdominal wall. The small and large bowel loops appear to be normal caliber. No obstruction is seen. There is no free fluid or fluid collection. The bladder is decompressed by a Jones catheter. Uterus is unremarkable. No inflammatory change is seen. IMPRESSION: Essentially unremarkable noncontrast CT of the abdomen and pelvis. No acute abnormality is detected. Dictated by: Dictated on workstation # [id number]
[2020-10-23] MEDS ORDERED: NS IV 1000 ML 1,000 ML ONE (18:40)
[2020-10-23] MEDS ORDERED: NS IV 1000 ML 1,000 ML IV SCH (18:45)
[2020-10-23 20:00] VITALS: BP 152/86
[2020-10-23] MEDS ORDERED: ONDANSETRON 4 MG/2 ML (SDV) Z0FRAN IV PRN (21:15)
[2020-10-23] MEDS ORDERED: fentaNYL INJ 100 MCG/2 ML AMP IV PRN (21:30)
[2020-10-23] MEDS: NS IV 1000 ML 1,000 ML IV SCH (21:54)
[2020-10-24] VITALS: BP 143/76
[2020-10-24] MEDS: NS IV 1000 ML 1,000 ML IV SCH ×4 (00:47→20:38)
[2020-10-24 03:55] LABS: BASOPHILS % (AUTO) 0 % (0-10); EOSINOPHILS # (AUTO) 0.1 10^3/uL (0.0-0.3); EOSINOPHILS % (AUTO) 2 % (0-10); HEMATOCRIT 35 % (35-52); LYMPHOCYTES # (AUTO) 2.6 10^3/uL (1.0-4.0); LYMPHOCYTES % (AUTO) 39 % (12-44); MEAN CORPUSCULAR HEMOGLOBIN 35 pg (25-34); MEAN CORPUSCULAR HGB CONC 34 g/dL (32-36); MEAN CORPUSCULAR VOLUME 102 fL (80-99); MONOCYTES # (AUTO) 0.6 10^3/uL (0.0-1.0); MONOCYTES % (AUTO) 9 % (0-12); NEUTROPHILS # (AUTO) 3.2 10^3/uL (1.8-7.8); NEUTROPHILS % (AUTO) 49 % (42-75); PLATELET COUNT 153 10^3/uL (130-400); WHITE BLOOD COUNT 6.5 10^3/uL (4.3-11.0)
[2020-10-24 04:00] VITALS: BP 143/83
[2020-10-24 04:03] LABS: ALBUMIN 3.3 GM/DL (3.2-4.5); POTASSIUM 3.7 MMOL/L (3.6-5.0)
[2020-10-24 04:04] LABS: CALCIUM 7.9 MG/DL (8.5-10.1)
[2020-10-24 04:06] LABS: TOTAL PROTEIN 5.7 GM/DL (6.4-8.2)
[2020-10-24 04:07] LABS: BILIRUBIN,TOTAL 0.4 MG/DL (0.1-1.0)
[2020-10-24 04:09] LABS: CREATININE SERUM 1.04 MG/DL (0.60-1.30)
[2020-10-24 07:15] VITALS: BP 135/88
[2020-10-24 11:30] VITALS: BP 124/83
--- NOTE | 2020-10-24 11:40 | History & Physical-Hospitalist ---
History of Present Illness HPI/Chief Complaint 65-year-old female presenting with complaints of over a week of pain difficulty urinating, vomiting, diarrhea. She states that she has been mostly lying down for the last several days. She has had subjective fever chills. She has had recurrent ear infections in the past. She overall felt bad and was having incontinence of urine. She finally was able to get a ride to come to the emergency department today.Upon my arrival patient reported that she was feeling little better not as weak and denied dysuria grateful for catheter as she has chronic issues with urinary incontinence which had gotten worse over the past several days. She denied chest pain or shortness of breath. Date Seen 10/24/20 Time Seen by a Provider: 07:15 Attending Physician Israel Reece MD [facility] Referring Physician Date of Admission Oct 23, 2020 at 18:10 Home Medications & Allergies Home Medications Reviewed patient Home Medication Reconciliation performed by pharmacy medication reconciliations wildlife biology technician and/or nursing. Patients Allergies have been reviewed. Allergies Allergies Uncoded Allergies IV CONTRAST ( Adverse Reaction, Mild, HIVES, 09/17/18) Past Aedngue-Hswjtu-Bfwnmk Hx Patient Social History Tobacco Use?: No Smoking Status: Never a Smoker Substance use?: No Alcohol Use?: No Pt feels they are or have been: No Immunizations Up To Date Tetanus Booster (TDap): More Than 5 Years Date of Pneumonia Vaccine: Apr 17, 2015 Seasonal Allergies Seasonal Allergies: No Current Status Advance Directives: No Communicates: Verbally Primary Language: Bhutanese Preferred Spoken Language: Bhutanese Is interpretation needed?: No Implanted or Applied Medical D: CPAP Past Medical History Surgeries: Appendectomy, Bladder Surgery, Section, Eye Surgery, Gallbladder, Tonsillectomy, Tubal Ligation COPD High Cholesterol, Hypertension Neuropathy, Stroke UTI-Chronic Arthritis Diabetes, Insulin dep Depression Recent Skin Changes Blood Disorders: No Family Medical History Patient reports no known family medical history. No Pertinent Family Hx Review of Systems Constitutional: see HPI Physical Exam Physical Exam Vital Signs Vital Signs - First Documented 10/23/20 10/23/20 13:57 23:30 Temp 36.0 Pulse 74 Resp 15 B/P (MAP) 154/79 (104) Pulse Ox 96 O2 Delivery Room Air O2 Flow Rate 3.00 Capillary Refill : Less Than 3 Seconds Height, Weight, BMI Height: 5'6.00" Weight: 290lbs. 1.0oz. 131.880414dq; 44.00 BMI Method:Stated General Appearance: No Apparent Distress, Chronically ill, Obese Respiratory: Chest Non Tender, Lungs Clear, Normal Breath Sounds, No Accessory Muscle Use, No Respiratory Distress Cardiovascular: Regular Rate, Rhythm, No Edema, No Gallop, No JVD, No Murmur, Normal Peripheral Pulses Gastrointestinal: Normal Bowel Sounds, No Organomegaly, No Pulsatile Mass, Non Tender, Soft Extremity: No Pedal Edema Results Results/Procedures Labs Laboratory Tests 10/23/20 13:43 10/24/20 03:45 Patient resulted labs reviewed. Assessment/Plan Admission Diagnosis 1. Urinary tract infection with sepsis bladder essentially resolved continue IV fluids and empiric IV antibiotic culture pending. 2. Type 2 diabetes mellitus we did not have Victoza will supplement with insulin scheduled for now. Admission Status: Inpatient Order (span 2 midnights) Reason for Inpatient Admission: See admission diagnosis ISRAEL REECE MD Oct 24, 2020 11:40
[2020-10-24] MEDS: ACETAMINOPHEN 325 MG TABLET PO PRN ×2 (11:57→20:38)
[2020-10-24] MEDS ORDERED: inSUlin ASPART (NovoLOG) 1 UNIT/0.01 ML (CHARGE PER UNIT) SC SCH (12:00)
[2020-10-24] MEDS: inSUlin ASPART (NovoLOG) 1 UNIT/0.01 ML (CHARGE PER UNIT) SC SCH ×3 (12:46→19:54)
[2020-10-24 16:00] VITALS: BP 147/76
[2020-10-24] MEDS: cefTRIAXone 1,000 MG/SWFI 10 ML IV PUSH IV SCH ×2 (17:06)
[2020-10-24 20:35] VITALS: BP 148/89
[2020-10-24] MEDS: MICONAZOLE 2% POWDER (DESENEX AF) 90 GM TOP SCH (21:29)
[2020-10-25] VITALS: BP 135/77
[2020-10-25 04:00] VITALS: BP 125/54
[2020-10-25 07:10] VITALS: BP 147/84
[2020-10-25] MEDS: inSUlin ASPART (NovoLOG) 1 UNIT/0.01 ML (CHARGE PER UNIT) SC SCH ×4 (07:13→20:18)
[2020-10-25] MEDS: NS IV 1000 ML 1,000 ML IV SCH ×4 (07:15→23:30)
[2020-10-25] MEDS: KETOROLAC 30 MG/ML VIAL IV PRN ×2 (07:47→21:45)
[2020-10-25] MEDS: MICONAZOLE 2% POWDER (DESENEX AF) 90 GM TOP SCH ×2 (07:47→20:18)
[2020-10-25 11:45] VITALS: BP 150/94
--- NOTE | 2020-10-25 13:19 | Progress Note - Hospitalist ---
Subjective HPI/CC On Admission Date Seen by Provider: Oct 25, 2020 Time Seen by Provider: 07:30 65-year-old female presenting with complaints of over a week of pain difficulty urinating, vomiting, diarrhea. She states that she has been mostly lying down for the last several days. She has had subjective fever chills. She has had recurrent ear infections in the past. She overall felt bad and was having incontinence of urine. She finally was able to get a ride to come to the emergency department today.Upon my arrival patient reported that she was feeling little better not as weak and denied dysuria grateful for catheter as she has chronic issues with urinary incontinence which had gotten worse over the past several days. She denied chest pain or shortness of breath. Subjective/Events-last exam Appetite improved patient just reports baseline knee pain which she does report improves with past steroid injections. She denies night sweats chills or fever with resolution of diarrhea and no dysuria. Focused Exam Lactate Level 10/23/20 13:43: Lactic Acid Level 4.99*H 10/23/20 16:15: Lactic Acid Level 2.69*H 10/23/20 19:05: Lactic Acid Level 1.28 Objective Exam Vital Signs Vital Signs Date Time Temp Pulse Resp B/P (MAP) Pulse Ox O2 Delivery O2 Flow Rate FiO2 10/25/20 11:45 36.6 64 16 150/94 (112) 95 Room Air 10/24/20 22:22 3.00 Capillary Refill : Less Than 3 Seconds General Appearance: No Apparent Distress, Chronically ill, Obese Respiratory: Chest Non Tender, Lungs Clear, Normal Breath Sounds, No Accessory Muscle Use, No Respiratory Distress Cardiovascular: Regular Rate, Rhythm, No Edema, No Gallop, No JVD, No Murmur, Normal Peripheral Pulses Gastrointestinal: Normal Bowel Sounds, No Organomegaly, No Pulsatile Mass, Non Tender, Soft Extremity: Other (Bilateral knee pain on range of motion no evidence for erythema questionable effusion there does appear to be some mild warmth of the right knee it is difficult to evaluate however due to her morbid obesity. ) Results/Procedures Lab Patient resulted labs reviewed. Assessment/Plan Assessment and Plan Assess & Plan/Chief Complaint 1. Presumed urinary tract infection culture growing Citrobacter which is sensitive to Rocephin continue. 2. Severe deconditioning due to morbid obesity and advanced bilateral OA of the knees presumed. Patient's baseline is being wheelchair-bound Covid testing was performed today and negative via PCR. ISRAEL REECE MD Oct 25, 2020 13:19
[2020-10-25 15:31] VITALS: BP 162/88
[2020-10-25] MEDS: cefTRIAXone 1,000 MG/SWFI 10 ML IV PUSH IV SCH ×2 (16:41)
[2020-10-25 20:21] VITALS: BP 160/81
[2020-10-26 00:02] VITALS: BP 161/91
[2020-10-26 03:43] VITALS: BP 166/81
[2020-10-26] MEDS: inSUlin ASPART (NovoLOG) 1 UNIT/0.01 ML (CHARGE PER UNIT) SC SCH ×3 (05:50→17:22)
[2020-10-26] MEDS: NS IV 1000 ML 1,000 ML IV SCH ×2 (06:15→17:23)
[2020-10-26 07:50] VITALS: BP 163/88
[2020-10-26] MEDS: KETOROLAC 30 MG/ML VIAL IV PRN (08:08)
[2020-10-26] MEDS: MICONAZOLE 2% POWDER (DESENEX AF) 90 GM TOP SCH (08:09)
[2020-10-26] MEDS ORDERED: ASPI-1238 PO (08:51)
[2020-10-26] MEDS ORDERED: TRAM50TA3 PO (08:51)
[2020-10-26] MEDS ORDERED: FLUO40CA PO (08:51)
[2020-10-26 11:24] VITALS: BP 165/102
[2020-10-26] MEDS ORDERED: CEFD300C3 PO (11:39)
--- NOTE | 2020-10-26 11:49 | Discharge Summary ---
Discharge Summary Reconcile Patient Problems Problems Reviewed?: Yes Instructions for Patient Via [facility], Assessment/Instructions Take medications as prescribed. Complete your course of antibiotics even if you are feeling better. Follow-up with your primary care physician in about a week. Return with worsening pain, weakness, or if you feel like you are getting worse. Physician to follow Patient: Vimal Discharge Diet for Home: No Restrictions Hospital Course Date of Admission: Oct 23, 2020 at 18:10 Admission Diagnosis: Urinary tract infection Family Phys[facility] Date of Discharge: 10/26/20 Discharge Diagnosis: Citrobacter urinary tract infection Hospital Course: Talia Mayorga is a 65-year-old female with hypertension, diabetes, osteoarthritis, chronic debility, morbid obesity, who was admitted with a urinary tract in replaced by [facility]. Her urine culture grew Citrobacter which was sensitive to Rocephin. She was transitioned to a course of oral Omnicef to complete as an outpatient. Her course was complicated by a lactic acidosis which resolved with IV fluids. She also had issues with osteoarthritis and chronic debility. She was set up with home health care on discharge. She should follow-up with her primary care physician in about a week. She was discharged home in stable condition. Labs and Pending Lab Test: Laboratory Tests 10/25/20 15:35: Glucometer 170H 10/25/20 20:15: Glucometer 139H 10/26/20 05:45: Glucometer 134H 10/26/20 11:23: Glucometer 175H Microbiology 10/23/20 Urine Culture - Final, Complete Citrobacter freundii complex 10/23/20 Blood Culture - Preliminary, Resulted No growth Home Meds Active Cefdinir 300 Mg Capsule 300 Mg PO BID 7 Days Reported Aspirin EC (Aspirin) 81 Mg Tablet. 81 Mg PO DAILY Fluoxetine HCl 40 Mg Capsule 40 Mg PO BID Tramadol HCl 50 Mg Tablet 50 Mg PO TID PRN Ibuprofen 800 Mg Tablet 800 Mg PO TID PRN Victoza 3-John (Liraglutide) 0.6 Mg/0.1 Ml Pen.injctr 1.8 Mg SC DAILY Gabapentin 600 Mg Tablet 600 Mg PO TID PRN Metformin HCl 1,000 Mg Tablet 1,000 Mg PO BID Losartan Potassium 50 Mg Tablet 50 Mg PO DAILY Oxybutynin Chloride 5 Mg Tablet 5 Mg PO TID PRN Patient Allergies: Uncoded Allergies: IV CONTRAST (Adverse Reaction, Mild, HIVES, 09/17/18) Height (Feet): 5 Height (Inches): 6.00 Weight (Pounds): 290 Weight (Ounces): 1.0 Home Health Need/Face to Face Date of Face to Face: Oct 26, 2020 Clinical Findings: Generalized weakness and fatigue, Muscle weakness, Unsteady gait I have seen Pt [id number]: Yes Discharged To: Home Diagnosis/Conditions: Urinary tract infection Morbid obesity Osteoarthritis HTN T2DM Problems/Diagnosis/Condition: (1) Osteoarthritis (2) UTI (urinary tract infection) (3) Morbid obesity (4) Debility (5) HTN (hypertension) (6) T2DM (type 2 diabetes mellitus) Patient is Homebound due to: Jannet fall risk due to instabilty, Muscle weakness Homebound Status Due to the above stated illness, injury or surgical procedure (medical condition or diagnosis) and associated clinical findings, the patient is homebound because of his/her inability to leave home except with aid of a supportive device and/or person AND leaving the home requires a considerable and taxing effort or is medically contraindicated. Pt req the following assistanc: Aid of another person, [facility] Home Health Nursing Orders Home Health Services Order: Nursing Services, Heat And Vent Aircraft Mechanic-Evaluate & Treat, Physical Therapy-Evaluate & Treat Home Health Infusion Therapy Line Start Date: Oct 23, 2020 Therapy Orders Therapy Orders: OT (must have SN or PT order), Physical Therapy Therapy Specific Orders: Eval assistive deivces, Teach enviro modifications/safety, Gait training, Increase strength/endurance Certify Stmt I certify that this patient is under my care and that I, a nurse practitioner or a physician; a talent assistant working with me, had a face to face encounter that - meets the physician face to face encounter requirements with this patient as dated. Discharge Physical Exam General: Alert, Oriented X3, Cooperative, Other (Obese) HEENT: Atraumatic, EOMI, Mucous Memb Moist/Jayton Lungs: Clear to Auscultation, Normal Air Movement Heart: Regular Rate, Normal S1, Normal S2, No Murmurs Abdomen: Normal Bowel Sounds, Soft, No Tenderness Extremities: Normal Pulses, Other (Bilateral lower extremity edema) Skin: No Rashes, No Significant Lesion Neuro: Normal Speech Psych/Mental Status: Mental Status NL, Mood NL PORSHA ISAACS MD Oct 26, 2020 11:47
[2020-10-26] MEDS: cefTRIAXone 1,000 MG/SWFI 10 ML IV PUSH IV SCH ×2 (16:00)
[2020-10-26 16:05] VITALS: BP 153/88
[2020-10-26 18:15] VITALS: BP 153/88
--- NOTE | 2020-10-28 13:32 | Physician Query Clarification ---
PQ-Uncertain Diagnosis Admission/Discharge Admission Date: Oct 23, 2020 at 18:10 Discharge Date: Oct 26, 2020 at 18:15 Dr. Isaacs, The medical record reflects the following clinical scenario: History/Risk Factors: Cystitis, dehydration, MOB, HTN Clinical Findings: T 36.0, P 74, R 15, Lactic acid 4.99, WBC 8.4 Treatment: IV Ceftriaxone Question: Is Sepsis a clinically valid diagnosis? Sepsis was documented in the ER record with no further documentation in the medical record. Please document a response in Progress Note or Discharge Summary. 1. Yes, clinically valid, condition resolved. 2. No, condition ruled out. 3. Other, with explanation of clinical findings. 4. Undetermined, no explanation for clinical findings. PHYSICIAN RESPONSE Diagnosis clinically valid: No, conditon ruled out Please remember a lack of response to the above will prompt a phone page by CDI/Coding staff. In responding to this query, please exercise your independent professional judgment. The purpose of this communication is to more accurately reflect the complexity of your patients condition. The fact that a question is asked does not imply that any particular answer is desired or expected. Thank you for your timely response to this clarification. Requestors name: Cain THIS PHYSICIAN QUERY FORM IS A PERMANENT PART OF THE MEDICAL RECORD CAIN JORDAN Oct 28, 2020 13:32 PORSHA ISAACS MD Nov 10, 2020 10:27
== END 2020-10-26 18:15 | disposition home health service (06) | DRG 690 ==
LOC: EDUNIT# 13:19 → ER FS 13:20 → CSD 18:10 → 4TH 10-24 19:30 → CSD 10-24 22:17 → 4TH 10-25 14:24
PROVIDERS: ADMIT Internal Medicine; ATTEND Internal Medicine
DX: N30.00 Acute cystitis without hematuria (principal); E87.2 Acidosis; I69.351 Hemiplegia and hemiparesis following cerebral infarction affecting right dominant side; Z68.42 Body mass index [BMI] 45.0-49.9, adult; B96.89 Other specified bacterial agents as the cause of diseases classified elsewhere; E86.0 Dehydration; J44.9 Chronic obstructive pulmonary disease, unspecified; E78.00 Pure hypercholesterolemia, unspecified; I10 Essential (primary) hypertension; E11.40 Type 2 diabetes mellitus with diabetic neuropathy, unspecified; M17.0 Bilateral primary osteoarthritis of knee; E66.01 Morbid (severe) obesity due to excess calories; F32.9 Major depressive disorder, single episode, unspecified; Z79.84 Long term (current) use of oral hypoglycemic drugs; Z79.2 Long term (current) use of antibiotics; Z79.899 Other long term (current) drug therapy
CPT/HCPCS: 36415; 51702; 74176; 80053; 80306; 81000; 82947; 83605; 83690; 85025; 87040; 87077; 87088; 87186; 87636; 94760; 96361; 96374; 96375

== ENCOUNTER 2020-12-24 15:49 | Emergency (ER) | payer MEDICAID ==
[~2020-12-24] VITALS: Ht 167 cm; Wt 121.0 kg
[~2020-12-24 15:49] MED LIST changes: +ASPI-1238 PO; +CEFD300C3 PO; +TRAM50TA3 PO
--- OUTSIDE RECORDS SUMMARY | 2020-12-24 15:52 | XMS REPORT | Clinical Summary ---
Author Author [facility] Organization [facility] Address Unknown Phone Unavailable Care Team Providers Care Pecan Picker Name Role Phone Michelet Knowles MD Unavailable Unavailable Elsi Diaz MD Unavailable Andrew Celis MD PCP Source Comments Some departments are not documenting in the electronic medical record. If you d o not see the information that you expected, contact Release of Information in [facility] [employer] Information Management department at [phone] for further assistan ce in locating additional records.[facility] Allergies Comments Active Allergy Reactions Severity Noted Date Iodinated Contrast Media HIVES 07/20/2011 Medications End Date Status Medication Sig Dispensed Refills Start Date Active furosemide (LASIX) 40 mg Take 40 mg by 0 tablet mouth daily. Active FLUoxetine (PROZAC) 20 mg Take 20 mg by 0 capsule mouth twice daily. Active ibuprofen (MOTRIN) 800 mg Take 800 mg 0 tablet by mouth every 8 hours as needed. Active gabapentin (NEURONTIN) Take 650 mg 0 300 mg capsule by mouth three times daily. Active hydrocodone-acetaminophen Take 1 Tab by 0 (LORTAB) 10-500 mg per mouth every 6 tablet hours as needed. Active tolterodine LA(+) (DETROL Take 4 mg by 0 LA) 4 mg capsule mouth daily. Active clopidogrel (PLAVIX) 75 Take 75 mg by 0 mg mouth daily. Active losartan (COZAAR) 50 mg Take 50 mg by 0 tablet mouth daily. Active aspirin 81 mg chew tablet Take 81 mg by 0 mouth daily. Active INSULIN LISPRO (HUMALOG Inject 10 0 SC) Units into area(s) as directed twice daily. Active nitroglycerin (NITROSTAT) Place 0.3 mg 0 0.3 mg tablet under tongue every 5 minutes as needed. Active Cranberry 400 mg Cap Take by 0 mouth. Active Problems Problem Noted Date Panniculitis 07/20/2011 Surgical History Surgery Date Site/Laterality Comments HX SECTION HX CHOLECYSTECTOMY BLADDER REPAIR Medical History Medical History Date Comments DM (diabetes mellitus) (HCC) 1997 Stroke (HCC) COPD (chronic obstructive pulmonary disease) (HCC) UTI (lower urinary tract infection) Pneumonia Social History Date Tobacco Use Types Packs/Day Years Used Current Some Day Smoker Cigarettes 0.5 40 Comments Alcohol Use Standard Drinks/Week Not Asked 0 (1 standard drink = 0.6 o z pure alcohol) Sex Assigned at Date Recorded Not on file Last Filed Vital Signs Reading Time Taken Comments Vital Sign 123/69 07/20/2011 10:02 AM CDT Blood Pressure 72 07/20/2011 10:02 AM CDT Pulse 36.7 C (98.1 F) 07/20/2011 10:02 AM CDT Temperature 18 07/20/2011 10:02 AM CDT Respiratory Rate - - Oxygen Saturation - - Inhaled Oxygen Concentration 167.8 kg (370 lb) 07/20/2011 10:02 AM CDT Weight 167.6 cm (5' 6") 07/20/2011 10:02 AM CDT Height 59.72 07/20/2011 10:02 AM CDT Body Mass Index Plan of Treatment Health Maintenance Due Date Last Done Comments HIV SCREENING 1970 DTAP/TDAP VACCINES (1 - 1973 Tdap) HEPATITIS C SCREENING 1973 PHYSICAL (COMPREHENSIVE) 1973 EXAM BREAST CANCER SCREENING 1995 COLORECTAL CANCER 2005 SCREENING SHINGLES RECOMBINANT 2005 VACCINE (1 of 2) OSTEOPOROSIS 2020 SCREENING/MONITORING PNEUMONIA (PPSV23) 2020 VACCINE (1 of 1 - PPSV23) INFLUENZA VACCINE 01/15/2021 Results Not on filefrom Last 3 Months Insurance Type Payer Benefit Subscriber ID Effective Phone Address Plan / Dates Group Medicaid [employer] [employer] [id number] [id number] [facility] [phone] (Home) [place], [place] [phone] Advance Directives 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
--- NOTE | 2020-12-24 16:19 | ED GU-Female ---
General Chief Complaint: - Reproductive Stated Complaint: BACK AND LEG PAIN Nursing Triage Note: PT REPORTS BURNING SENSATION WHEN URINATING FOR THE LAST MONTH. PT REPORTS BEING AT THE [facility] OFFICE ALL DAY AND FEELS TIRED. PT HAS NOT ATTEMPTED TO SEE HER PCM FOR THIS COMPLAINT. PT HAS NOT BEEN ON ANY ANTIBIOTICS RECENTLY. Source: patient Exam Limitations: no limitations History of Present Illness Date Seen by Provider: Dec 24, 2020 Time Seen by Provider: 16:00 Initial Comments Patient is a 65-year-old female with history of recurrent urinary tract infectio ns who presents with dysuria for the past month. Reports feeling fatigued patient after spending the day in her wheelchair at local [facility]. She denies fever chills nausea vomiting or sweats. Denies flank pain. No history of kidney stones or kidney infections. Denies dizziness lightheadedness. Reports loose nonproductive cough. Patient is previously tested negative for Covid for cough. No other acute symptoms or complaints. Timing/Duration: just prior to arrival Location: other Radiation: other Activities at Onset: other Sexual Notus History: other Modifying Factors: Improves With Other Associated Symptoms: other Allergies and Home Medications Allergies Uncoded Allergies: IV CONTRAST (Adverse Reaction, Mild, HIVES, 09/17/18) Patient Home Medication List Home Medication List Reviewed: Yes Aspirin (Aspirin EC) 81 Mg Tablet.dr, 81 MG PO DAILY, (Reported) Entered as Reported by: NERIS PRIETO on 10/26/20 0851 Cefdinir (Cefdinir) 300 Mg Capsule, 300 MG PO BID Prescribed by: PORSHA ISAACS on 10/26/20 1139 Fluoxetine HCl (Fluoxetine HCl) 40 Mg Capsule, 40 MG PO BID, (Reported) Entered as Reported by: NERIS PRIETO on 10/26/20 0851 Gabapentin (Gabapentin) 600 Mg Tablet, 600 MG PO TID PRN for NERVE PAIN, (Reported) Entered as Reported by: MINESH CANALES on 09/17/18 1847 Ibuprofen (Ibuprofen) 800 Mg Tablet, 800 MG PO TID PRN for PAIN-MILD (1-4), (Reported) Entered as Reported by: STACIE BERNAL on 05/15/19 1015 Liraglutide (Victoza 3-John) 0.6 Mg/0.1 Ml Pen.injctr, 1.8 MG SC DAILY, (Reported) Entered as Reported by: MINESH CANALES on 09/17/181846 Losartan Potassium (Losartan Potassium) 50 Mg Tablet, 50 MG PO DAILY, (Reported) Entered as Reported by: MINESH CANALES on 09/17/181846 Metformin HCl (Metformin HCl) 1,000 Mg Tablet, 1,000 MG PO BID, (Reported) Entered as Reported by: MINESH CANALES on 09/17/181846 Oxybutynin Chloride (Oxybutynin Chloride) 5 Mg Tablet, 5 MG PO TID PRN for BLADDER SPASMS, (Reported) Entered as Reported by: MINESH CANALES on 09/17/181846 Tramadol HCl (Tramadol HCl) 50 Mg Tablet, 50 MG PO TID PRN for PAIN-MODERATE (5- 7), (Reported) Entered as Reported by: NERIS PRIETO on 10/26/20 0851 Review of Systems Review of Systems Constitutional: see HPI EENTM: see HPI Respiratory: see HPI Cardiovascular: see HPI Gastrointestinal: see HPI Genitourinary: see HPI Musculoskeletal: see HPI Skin: see HPI Psychiatric/Neurological: See HPI Endocrine: See HPI Hematologic/Lymphatic: See HPI All Other Systemes Reviewed Negative Unless Noted: Yes Past [id number] Hx Patient Social History Tobacco Use?: Yes Substance use?: No Alcohol Use?: No Pt feels they are or have been: No Immunizations Up To Date Tetanus Booster (TDap): Unknown First/Initial COVID19 Vaccinat: NA Seasonal Allergies Seasonal Allergies: No Past Medical History Surgery/Hospitalization HX: MRSA APPY C Section Bladder Surgery Stroke with R side residual Cataracts Dilation Urethral structurre HTN Cheek Cellulitis Surgeries: Yes (CYSTOSCOPIES, DILITATION URETHRAL STRICTURE) Appendectomy, Bladder Surgery, Section, Eye Surgery, Gallbladder, Tonsillectomy, Tubal Ligation Respiratory: Yes COPD Cardiac: Yes High Cholesterol, Hypertension Neurological: Yes (CVA W/ R SIDED WEAKNESS) Neuropathy, Stroke Genitourinary: Yes (TRIGONITIS) UTI-Chronic Gastrointestinal: No Musculoskeletal: Yes (CHRONIC KNEE PAIN) Arthritis Endocrine: Yes (MORBID OBESITY) Diabetes, Insulin dep HEENT: No (prior cataract surgeries) Cancer: No Psychosocial: Yes Depression Integumentary: Yes (L ORBITAL CELLULITIS, 2018 CHEEK CELLULITIS) Recent Skin Changes Blood Disorders: No Family Medical History Patient reports no known family medical history. No Pertinent Family Hx Physical Exam Vital Signs Vital Signs - First Documented 12/24/20 16:00 Temp 36.7 Pulse 88 Resp 18 B/P (MAP) 157/72 (100) Pulse Ox 96 O2 Delivery Room Air Capillary Refill : Less Than 3 Seconds Height, Weight, BMI Height: 5'6.00" Weight: 290lbs. 1.0oz. 131.332188mb; 43.00 BMI Method:Stated General Appearance: WD/WN HEENT: PERRL/EOMI, pharynx normal, scleral icterus (R) Neck: non-tender, supple Cardiovascular: normal peripheral pulses, regular rate, rhythm, no edema Respiratory: lungs clear Gastrointestinal: non tender, soft, other (Obesity compromising exam) Back: normal inspection, no CVA tenderness Extremities: normal range of motion, non-tender Progress/Results/Core Measures Suspected Sepsis SIRS Temperature: Pulse: 88 Respiratory Rate: 18 Blood Pressure 157 /72 Mean: 100 Results/Orders Lab Results Laboratory Tests Test 12/24/20 16:06 Range/Units Urine Color YELLOW Urine Clarity CLOUDY Urine pH 6.0 5-9 Urine Specific [place] >=1.030 1.016-1.022 Urine Protein 2+ H NEGATIVE Urine Glucose (UA) NEGATIVE NEGATIVE Urine Ketones TRACE H NEGATIVE Urine Nitrite POSITIVE H NEGATIVE Urine Bilirubin NEGATIVE NEGATIVE Urine Urobilinogen 0.2 < = 1.0 MG/DL Urine Leukocyte Esterase 2+ H NEGATIVE Urine RBC (Auto) 2+ H NEGATIVE Urine RBC RARE /HPF Urine WBC TNTC H /HPF Urine Squamous Epithelial Cells 2-5 /HPF Urine Crystals NONE /LPF Urine Bacteria LARGE H /HPF Urine Casts NONE /LPF Urine Mucus NEGATIVE /LPF Urine Culture Indicated YES My Orders Orders - WEST ELLER DO Ua Culture If Indicated (12/24/20 16:05) Urine Culture (12/24/20 16:06) Vital Signs/I&O 12/24/20 16:00 Temp 36.7 Pulse 88 Resp 18 B/P (MAP) 157/72 (100) Pulse Ox 96 O2 Delivery Room Air Capillary Refill : Less Than 3 Seconds Blood Pressure Mean: 100 Departure Communication (Admissions) Urinary tract infection without evidence of pyelonephritis. Antibiotics given. Recommendations are continue therapeutic pair PCP follow-up. Return precautions reviewed. Patient verbalizes understanding agreement discharge instructions prior to departure. Impression Primary Impression: Urinary tract infection Disposition: 01 HOME, SELF-CARE Condition: Stable Departure-Patient Inst. Decision time for Depature: 16:45 Referrals: [facility]/ (PCP/Family) Primary Care Physician Patient Instructions: Urinary Tract Infection, Adult ED Add. Discharge Instructions: Please increase fluids and take newly prescribed antibiotics as directed. Follow-up with your PCP in 3 to 5 days for reevaluation. Return to the ED if new or worsening symptoms All discharge instructions reviewed with patient and/or family. Voiced understanding. Scripts Cephalexin (Cephalexin) 500 Mg Tablet 500 MG PO TID, #21 TAB Prov: WEST ELLER DO 12/24/20 WEST ELLER DO Dec 24, 2020 16:19
[2020-12-24 16:32] LABS: BILIRUBIN,URINE NEGATIVE (NEGATIVE); CLARITY,URINE CLOUDY; COLOR,URINE YELLOW; GLUCOSE, URINE (UA) NEGATIVE (NEGATIVE); KETONES,URINE TRACE (NEGATIVE); LEUKOCYTE ESTERASE ,URINE 2+ (NEGATIVE); NITRITE,URINE POSITIVE (NEGATIVE); PROTEIN,URINE 2+ (NEGATIVE); RBC,URINE RARE /HPF
[2020-12-24 16:33] LABS: BACTERIA,URINE LARGE /HPF; WBC,URINE TNTC /HPF
[2020-12-24] MEDS ORDERED: CEPH500T PO (16:46)
[2020-12-24 16:53] VITALS: BP 155/70
== END 2020-12-24 16:53 | disposition home or self-care (01) ==
LOC: EDUNIT# 15:49 → ER FS 15:50
DX: N39.0 Urinary tract infection, site not specified (principal); J44.9 Chronic obstructive pulmonary disease, unspecified; I10 Essential (primary) hypertension; F32.9 Major depressive disorder, single episode, unspecified; E66.01 Morbid (severe) obesity due to excess calories; E11.9 Type 2 diabetes mellitus without complications; Z86.73 Personal history of transient ischemic attack (TIA), and cerebral infarction without residual deficits; Z86.14 Personal history of Methicillin resistant Staphylococcus aureus infection; Z68.41 Body mass index [BMI] 40.0-44.9, adult; Z79.899 Other long term (current) drug therapy; Z79.82 Long term (current) use of aspirin
CPT/HCPCS: 81000; 87077; 87088; 87186; 99281

== ENCOUNTER 2021-02-22 13:10 | Inpatient (IN) | payer MEDICAID ==
[~2021-02-22] VITALS: Ht 167.6 cm; Wt 131.6 kg
[~2021-02-22 13:10] MED LIST changes: +CEPH500T PO
--- NOTE | 2021-02-22 13:16 | ED General ---
General Stated Complaint: LT LEG REDNESS/SWELLING/PAIN History of Present Illness Date Seen by Provider: Feb 22, 2021 Time Seen by Provider: 13:16 Initial Comments 65-year-old female presents with left lower extremity redness. She reports that she has some swelling pain and redness in the area. Patient has a previous history of cellulitis. She reports she had some chills and felt feverish throughout the night last night. She denies any nausea, vomiting, cough, shortness of breath. She does have bilateral lower extremity swelling and lymphedema history. Allergies and Home Medications Allergies Uncoded Allergies: IV CONTRAST (Adverse Reaction, Mild, HIVES, 09/17/18) Patient Home Medication List Home Medication List Reviewed: Yes Aspirin (Aspirin EC) 81 Mg Tablet.dr, 81 MG PO DAILY, (Reported) Entered as Reported by: NERIS PRIETO on 10/26/20 0851 Cefdinir (Cefdinir) 300 Mg Capsule, 300 MG PO BID Prescribed by: PORSHA ISAACS on 10/26/20 1139 Cephalexin (Cephalexin) 500 Mg Tablet, 500 MG PO TID Prescribed by: WEST ELLER on 12/24/20 1646 Fluoxetine HCl (Fluoxetine HCl) 40 Mg Capsule, 40 MG PO BID, (Reported) Entered as Reported by: NERIS PRIETO on 10/26/20 0851 Gabapentin (Gabapentin) 600 Mg Tablet, 600 MG PO TID PRN for NERVE PAIN, (Reported) Entered as Reported by: MINESH CANALES on 09/17/181846 Ibuprofen (Ibuprofen) 800 Mg Tablet, 800 MG PO TID PRN for PAIN-MILD (1-4), (Reported) Entered as Reported by: STACIE BERNAL on 05/15/19 1015 Liraglutide (Victoza 3-John) 0.6 Mg/0.1 Ml Pen.injctr, 1.8 MG SC DAILY, (Reported) Entered as Reported by: MINESH CANALES on 09/17/181846 Losartan Potassium (Losartan Potassium) 50 Mg Tablet, 50 MG PO DAILY, (Reported) Entered as Reported by: MINESH CANALES on 09/17/181846 Metformin HCl (Metformin HCl) 1,000 Mg Tablet, 1,000 MG PO BID, (Reported) Entered as Reported by: MINESH CANALES on 09/17/181846 Oxybutynin Chloride (Oxybutynin Chloride) 5 Mg Tablet, 5 MG PO TID PRN for BLADDER SPASMS, (Reported) Entered as Reported by: MINESH CANALES on 09/17/181846 Tramadol HCl (Tramadol HCl) 50 Mg Tablet, 50 MG PO TID PRN for PAIN-MODERATE (5- 7), (Reported) Entered as Reported by: NERIS PRIETO on 10/26/20 0851 Review of Systems Review of Systems Constitutional: chills, fever, malaise Respiratory: No cough, No short of breath Cardiovascular: No chest pain, No palpitations Gastrointestinal: No abdominal pain, No nausea, No vomiting Musculoskeletal: see HPI Skin: see HPI Psychiatric/Neurological: No Symptoms Reported Past Ucvpugm-Phobkq-Eqyglk Hx Immunizations Up To Date Tetanus Booster (TDap): Unknown First/Initial COVID19 Vaccinat: NA Seasonal Allergies Seasonal Allergies: No Past Medical History Surgery/Hospitalization HX: MRSA APPY C Section Bladder Surgery Stroke with R side residual Cataracts Dilation Urethral structurre HTN Cheek Cellulitis Surgeries: Yes (CYSTOSCOPIES, DILITATION URETHRAL STRICTURE) Appendectomy, Bladder Surgery, Section, Eye Surgery, Gallbladder, Tonsillectomy, Tubal Ligation Respiratory: Yes COPD Cardiac: Yes High Cholesterol, Hypertension Neurological: Yes (CVA W/ R SIDED WEAKNESS) Neuropathy, Stroke Genitourinary: Yes (TRIGONITIS) UTI-Chronic Gastrointestinal: No Musculoskeletal: Yes (CHRONIC KNEE PAIN) Arthritis Endocrine: Yes (MORBID OBESITY) Diabetes, Insulin dep HEENT: No (prior cataract surgeries) Cancer: No Psychosocial: Yes Depression Integumentary: Yes (L ORBITAL CELLULITIS, 2018 CHEEK CELLULITIS) Recent Skin Changes Blood Disorders: No Family Medical History Patient reports no known family medical history. No Pertinent Family Hx Physical Exam Vital Signs Vital Signs - First Documented 02/22/21 02/22/21 13:10 15:30 Temp 38.0 Pulse 95 Resp 17 B/P (MAP) 125/57 (79) Pulse Ox 95 O2 Delivery Room Air Capillary Refill : Height, Weight, BMI Height: 5'6.00" Weight: 290lbs. 1.0oz. 131.630642fu; 43.00 BMI Method:Stated General Appearance: No Apparent Distress, WD/WN, Obese Respiratory: Lungs Clear, Normal Breath Sounds Cardiovascular: Regular Rate, Rhythm, No Edema Gastrointestinal: Non Tender, Soft Extremity: Swelling (Bilateral lower extremity 3+ edema) Neurologic/Psychiatric: Alert, No Motor/Sensory Deficits Skin: Other (Cellulitis overlying chronic venous stasis changes on the left lower extremity, from just proximal to the knee down to the foot, tender to touch and warm to touch) Focused Exam Lactate Level 02/22/21 13:49: Lactic Acid Level 2.97*H Lactic Acid Level Laboratory Tests Test 02/22/21 13:49 Lactic Acid Level 2.97 MMOL/L (0.50-2.00) *H Progress/Results/Core Measures Suspected Sepsis SIRS Temperature: Pulse: Respiratory Rate: Laboratory Tests 02/22/21 13:49: White Blood Count 11.1H Blood Pressure / Mean: 02/22/21 13:49: Lactic Acid Level 2.97*H Laboratory Tests 02/22/21 13:49: Creatinine 1.73H, Platelet Count 113L, Total Bilirubin 0.5 Results/Orders Lab Results Laboratory Tests Test 02/22/21 13:49 Range/Units White Blood Count 11.1 H 4.3-11.0 10^3/uL Red Blood Count 3.93 3.80-5.11 10^6/uL Hemoglobin 14.0 11.5-16.0 g/dL Hematocrit 40 35-52 % Mean Corpuscular Volume 103 H 80-99 fL Mean Corpuscular Hemoglobin 36 H 25-34 pg Mean Corpuscular Hemoglobin Concent 35 32-36 g/dL Red Cell Distribution Width 12.5 10.0-14.5 % Platelet Count 113 L 130-400 10^3/uL Mean Platelet Volume 9.2 9.0-12.2 fL Immature Granulocyte % (Auto) 0 % Neutrophils (%) (Auto) 93 H 42-75 % Lymphocytes (%) (Auto) 4 L 12-44 % Monocytes (%) (Auto) 3 0-12 % Eosinophils (%) (Auto) 0 0-10 % Basophils (%) (Auto) 0 0-10 % Neutrophils # (Auto) 10.3 H 1.8-7.8 X 10^3 Lymphocytes # (Auto) 0.5 L 1.0-4.0 X 10^3 Monocytes # (Auto) 0.3 0.0-1.0 X 10^3 Eosinophils # (Auto) 0.0 0.0-0.3 10^3/uL Basophils # (Auto) 0.0 0.0-0.1 10^3/uL Immature Granulocyte # (Auto) 0.1 0.0-0.1 10^3/uL Neutrophils % (Manual) 41 % Lymphocytes % (Manual) 5 % Monocytes % (Manual) 1 % Eosinophils % (Manual) 0 % Basophils % (Manual) 0 % Metamyelocytes % 2 % Band Neutrophils 51 % Platelet Estimate DECREASE Percent Immature Platelet Fraction 1.4 0.0-7.6 % Sodium Level 133 L 135-145 MMOL/L Potassium Level 6.4 H 3.6-5.0 MMOL/L Chloride Level 99 98-107 MMOL/L Carbon Dioxide Level 22 21-32 MMOL/L Anion Gap 12 5-14 MMOL/L Blood Urea Nitrogen 38 H 7-18 MG/DL Creatinine 1.73 H 0.60-1.30 MG/DL Estimat Glomerular Filtration Rate 30 BUN/Creatinine Ratio 22 Glucose Level 224 H 70-105 MG/DL Lactic Acid Level 2.97 *H 0.50-2.00 MMOL/L Calcium Level 8.7 8.5-10.1 MG/DL Corrected Calcium 8.8 8.5-10.1 MG/DL Total Bilirubin 0.5 0.1-1.0 MG/DL Aspartate Amino Transf (AST/SGOT) 20 5-34 U/L Alanine Aminotransferase (ALT/SGPT) 18 0-55 U/L Alkaline Phosphatase 58 40-136 U/L Total Protein 6.7 6.4-8.2 GM/DL Albumin 3.9 3.2-4.5 GM/DL My Orders Orders - DAY ARDON L DO Cbc With Automated Diff (02/22/21 13:11) Comprehensive Metabolic Panel (02/22/21 13:11) Lactic Acid Analyzer (02/22/21 13:11) Ua Culture If Indicated (02/22/21 13:11) Ceftriaxone (Rocephin) (02/22/21 13:30) Manual Differential (02/22/21 13:49) Acetaminophen Tablet (Tylenol Tablet) (02/22/21 14:37) Ns Iv 1000 Ml (Sodium Chloride 0.9%) (02/22/21 14:37) Medications Given in ED Current Medications Medications Dose Ordered Sig/Suzi Route Start Time Stop Time Status Last Admin Dose Admin Ceftriaxone Sodium 1000 mg/ Sterile Water 10 ml @ 200 mls/hr ONCE ONCE IV 02/22/21 13:30 02/22/21 13:32 DC 02/22/21 14:09 200 MLS/HR Vital Signs/I&O 02/22/21 02/22/21 02/22/21 13:10 15:02 15:30 Temp 38.0 38.0 Pulse 95 59 Resp 17 17 B/P (MAP) 125/57 (79) 127/68 Pulse Ox 95 O2 Delivery Room Air Room Air Capillary Refill : Departure Impression Primary Impression: Cellulitis of left lower extremity Additional Impressions: Acute kidney failure Qualified Codes: N17.9 - Acute kidney failure, unspecified Sepsis Qualified Codes: A41.9 - Sepsis, unspecified organism Disposition: 30 STILL A PATIENT Condition: Stable Admissions Decision to Admit Reason: Admit from ER (General) Decision to Admit/Date: Feb 22, 2021 Time/Decision to Admit Time: 14:45 Departure-Patient Inst. Referrals: [facility] (PCP/Family) Primary Care Physician DAY ARDON DO Feb 22, 2021 13:16
[2021-02-22] MEDS ORDERED: cefTRIAXone 1,000 MG in WATER (STERILE) FOR INJECTION 10 ML IV ONE (13:30)
[2021-02-22 14:05] LABS: HEMATOCRIT 40 % (35-52); MEAN CORPUSCULAR HEMOGLOBIN 36 pg (25-34); MEAN CORPUSCULAR HGB CONC 35 g/dL (32-36); MEAN CORPUSCULAR VOLUME 103 fL (80-99); PLATELET COUNT 113 10^3/uL (130-400); WHITE BLOOD COUNT 11.1 10^3/uL (4.3-11.0)
[2021-02-22 14:06] LABS: BASOPHILS % (AUTO) 0 % (0-10); EOSINOPHILS % (AUTO) 0 % (0-10); LYMPHOCYTES # (AUTO) 0.5 X 10^3 (1.0-4.0); LYMPHOCYTES % (AUTO) 4 % (12-44); MEAN PLATELET VOLUME 9.2 fL (9.0-12.2); MONOCYTES # (AUTO) 0.3 X 10^3 (0.0-1.0); MONOCYTES % (AUTO) 3 % (0-12); NEUTROPHILS # (AUTO) 10.3 X 10^3 (1.8-7.8); NEUTROPHILS % (AUTO) 93 % (42-75)
[2021-02-22 14:21] LABS: ALBUMIN 3.9 GM/DL (3.2-4.5); BILIRUBIN,TOTAL 0.5 MG/DL (0.1-1.0); CALCIUM 8.7 MG/DL (8.5-10.1); CREATININE SERUM 1.73 MG/DL (0.60-1.30); POTASSIUM 6.4 MMOL/L (3.6-5.0); TOTAL PROTEIN 6.7 GM/DL (6.4-8.2)
[2021-02-22] MEDS ORDERED: ACETAMINOPHEN 500 MG TAB (TYLENOL) PO STA (14:37)
[2021-02-22] MEDS ORDERED: NS IV 1000 ML 1,000 ML IV STA (14:37)
[2021-02-22 15:13] LABS: BAND NEUTROPHILS 51 %; BASOPHILS % (MANUAL) 0 %; EOSINOPHILS % (MANUAL) 0 %; LYMPHOCYTES % (MANUAL) 5 %; METAMYELOCYTES % 2 %; MONOCYTES % (MANUAL) 1 %; NEUTROPHILS % (MANUAL) 41 %; PLATELET ESTIMATE DECREASE
[2021-02-22] MEDS ORDERED: CATHETER FLUSH 10 ML SYR IV PRN (17:30)
[2021-02-22] MEDS: NS IV 1000 ML 1,000 ML IV SCH (17:30)
[2021-02-22] MEDS ORDERED: FLU QUAD HIGH DOSE 240 MCG/0.7 ML 2021-22 (FLUZONE) IM ONE (18:30)
[2021-02-22] MEDS: HYDROcodone/APAP 5 MG/325 MG (LORTAB) TAB PO PRN (18:36)
[2021-02-22 19:46] VITALS: BP 122/57
[2021-02-22 23:50] LABS: POTASSIUM 4.8 MMOL/L (3.6-5.0)
[2021-02-22 23:51] LABS: CALCIUM 7.9 MG/DL (8.5-10.1)
[2021-02-22 23:56] LABS: CREATININE SERUM 1.4 MG/DL (0.60-1.30)
[2021-02-23 00:02] VITALS: BP 109/66
[2021-02-23] MEDS: ACETAMINOPHEN 500 MG TAB (TYLENOL) PO PRN ×2 (00:33→08:59)
[2021-02-23] MEDS: NS IV 1000 ML 1,000 ML IV SCH ×3 (01:21→17:09)
[2021-02-23] MEDS: HYDROcodone/APAP 5 MG/325 MG (LORTAB) TAB PO PRN ×4 (03:59→22:53)
[2021-02-23 04:22] VITALS: BP 116/71
[2021-02-23] MEDS: inSUlin ASPART (NovoLOG) 1 UNIT/0.01 ML (CHARGE PER UNIT) SC SCH ×4 (05:45→21:38)
[2021-02-23 08:20] VITALS: BP 106/68
[2021-02-23] MEDS ORDERED: ACET-2267 PO (10:35)
[2021-02-23] MEDS ORDERED: AMIT50TA3 PO (10:35)
[2021-02-23] MEDS ORDERED: MULT-1018 PO (10:35)
[2021-02-23 12:08] VITALS: BP 98/64
[2021-02-23] MEDS: cefTRIAXone 1,000 MG/SWFI 10 ML IV PUSH IV SCH ×2 (13:26)
[2021-02-23 16:00] VITALS: BP 102/67
--- NOTE | 2021-02-23 17:07 | History & Physical ---
HPI History of Present Illness: 65 yo F that presented with left swollen and red leg from her knee down. States that it came on pretty suddenly about 3-4 days ago. + pain. States that she has not had anything like this before. She has NIDDM and states that she is not sure what her last A1c was. No recent med changes. States that she noticed a small cut on her leg prior to the swelling. Source: patient Date seen by provider: Feb 23, 2021 Time Seen by Provider: 10:45 Attending Physician Maria Del Rosario Duque MD PCP [place] [place],[facility] Consult Date of Admission Feb 22, 2021 at 16:47 Home Medications Home Medications Reviewed patient Home Medication Reconciliation performed by pharmacy medication reconciliations collections technician and/or nursing. Patients Allergies have been reviewed. Allergies Uncoded Allergies: IV CONTRAST (Adverse Reaction, Mild, HIVES, 09/17/18) [facility] Hx Patient Social History Smoking Status: Light Tobacco Smoker 2nd Hand Smoke Exposure: No Recent Hopitalizations: No Alcohol Use?: Yes Tobacco type used: Cigarettes Have you traveled recently?: No Immunizations Up To Date Tetanus Booster (TDap): Unknown Date of Pneumonia Vaccine: Apr 17, 2015 Past Medical History NIDDM Diabetic Neuropathy Morbid Obesity Family Medical History Significant Family History: No Pertinent Family Hx Family History: Patient reports no known family medical history. Review of Systems ([facility]) Constitutional: chills; No fever; malaise EENTM: no symptoms reported; No mouth pain, No nose congestion, No nose pain Respiratory: no symptoms reported; No cough, No dyspnea on exertion, No short of breath Cardiovascular: no symptoms reported; No chest pain, No edema, No palpitations Gastrointestinal: no symptoms reported; No abdominal pain, No constipation, No diarrhea, No loss of appetite, No nausea, No vomiting Genitourinary: no symptoms reported; No dysuria, No frequency, No hematuria : No Musculoskeletal: joint pain Skin: rash Psychiatric/Neurological: Numbness Reviewed Test Results Reviewed Test Results Lab Laboratory Tests Test 02/22/21 21:04 02/22/21 21:15 02/22/21 23:33 02/23/21 05:38 Range/Units Lactic Acid Level 2.62 *H 1.69 0.50-2.00 MMOL/L Glucometer 217 H 173 H 70-110 MG/DL Sodium Level 134 L 135-145 MMOL/L Potassium Level 4.8 3.6-5.0 MMOL/L Chloride Level 103 98-107 MMOL/L Carbon Dioxide Level 17 L 21-32 MMOL/L Anion Gap 14 5-14 MMOL/L Blood Urea Nitrogen 38 H 7-18 MG/DL Creatinine 1.40 H 0.60-1.30 MG/DL Estimat Glomerular Filtration Rate 38 BUN/Creatinine Ratio 27 Glucose Level 185 H 70-105 MG/DL Calcium Level 7.9 L 8.5-10.1 MG/DL Test 02/23/21 10:29 02/23/21 15:22 02/23/21 20:26 Range/Units Glucometer 212 H 225 H 196 H 70-110 MG/DL Physical Exam-(CHC) Physical Exam Vital Signs VS - Last 72 Hours, by Label 02/22/21 02/22/21 02/22/21 02/22/21 13:10 15:02 15:30 16:30 Temp 38.0 38.0 Pulse 95 59 Resp 17 17 B/P (MAP) 125/57 (79) 127/68 Pulse Ox 95 95 O2 Delivery Room Air Room Air Room Air 02/22/21 02/22/21 02/23/21 02/23/21 19:46 20:00 00:02 00:33 Temp 36.5 38.4 38.4 Pulse 97 101 Resp 22 17 B/P (MAP) 122/57 (78) 109/66 (80) Pulse Ox 94 94 92 O2 Delivery Room Air Room Air Room Air 02/23/21 02/23/21 02/23/21 02/23/21 03:48 04:22 08:00 08:20 Temp 38.6 38.6 36.8 Pulse 104 94 Resp 20 20 B/P (MAP) 116/71 (86) 106/68 (81) Pulse Ox 94 93 O2 Delivery Room Air Room Air Room Air 02/23/21 02/23/21 02/23/21 12:08 16:00 19:41 Temp 36.4 37.0 36.9 Pulse 76 79 82 Resp 18 18 18 B/P (MAP) 98/64 (75) 102/67 (79) 113/73 (86) Pulse Ox 95 95 93 O2 Delivery Room Air Room Air Room Air Capillary Refill : Less Than 3 Seconds General Appearance: WD/WN, no apparent distress, obese HEENT: PERRL/EOMI Neck: non-tender, full range of motion, supple Respiratory: chest non-tender, lungs clear, normal breath sounds, no respiratory distress, no accessory muscle use Cardiovascular: normal peripheral pulses, regular rate, rhythm, no murmur Gastrointestinal: normal bowel sounds, non tender, soft, no organomegaly Back: no CVA tenderness, no vertebral tenderness Extremities: calf tenderness, pedal edema, swelling Neurologic/Psychiatric: pan helper II-XII nml as tested, no motor/sensory deficits, alert, normal mood/affect, oriented x 3 Lymphatic: no adenopathy Assessment/Plan Assessment/Plan Admission Status: Inpatient Order (span 2 midnights) Reason for Inpatient Admission: Patient needs IV antibiotics (1) Cellulitis of left lower extremity Status: Acute Assessment & Plan: - Continue IV antibiotics, venous doppler pending (2) Non-insulin dependent diabetes mellitus Status: Chronic Assessment & Plan: - A1c pending, SSI, Accuchecks (3) 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
[2021-02-23 19:41] VITALS: BP 113/73
[2021-02-23] MEDS: FLUoxetine HCL 20 MG (PROzac) CAP PO SCH (20:21)
[2021-02-23] MEDS: AMITRIPTYLINE 50 MG (ELAVIL) TAB PO SCH (20:22)
[2021-02-23] MEDS ORDERED: NON-FORMULARY MEDICATION 1 EA EA (Fluoxetine HCl 40 MG) PO SCH (21:00)
[2021-02-24 00:12] VITALS: BP 125/77
[2021-02-24] MEDS: NS IV 1000 ML 1,000 ML IV SCH ×3 (01:22→17:50)
[2021-02-24 04:12] VITALS: BP 112/76
[2021-02-24] MEDS: inSUlin ASPART (NovoLOG) 1 UNIT/0.01 ML (CHARGE PER UNIT) SC SCH ×4 (05:48→21:07)
[2021-02-24 08:00] VITALS: BP 110/55
[2021-02-24 08:26] LABS: BASOPHILS % (AUTO) 0 % (0-10); EOSINOPHILS # (AUTO) 0.1 10^3/uL (0.0-0.3); EOSINOPHILS % (AUTO) 1 % (0-10); HEMATOCRIT 35 % (35-52); HEMOGLOBIN 11.9 g/dL (11.5-16.0); LYMPHOCYTES # (AUTO) 0.9 10^3/uL (1.0-4.0); LYMPHOCYTES % (AUTO) 12 % (12-44); MEAN CORPUSCULAR HEMOGLOBIN 35 pg (25-34); MEAN CORPUSCULAR HGB CONC 34 g/dL (32-36); MEAN CORPUSCULAR VOLUME 104 fL (80-99); MEAN PLATELET VOLUME 9.7 fL (9.0-12.2); MONOCYTES # (AUTO) 0.3 10^3/uL (0.0-1.0); MONOCYTES % (AUTO) 4 % (0-12); NEUTROPHILS # (AUTO) 5.8 10^3/uL (1.8-7.8); NEUTROPHILS % (AUTO) 82 % (42-75); WHITE BLOOD COUNT 7.2 10^3/uL (4.3-11.0)
[2021-02-24 08:30] LABS: PLATELET COUNT 88 10^3/uL (130-400)
--- NOTE | 2021-02-24 08:40 | Diagnostic Imaging Report ---
PROCEDURE: US left lower extremity venous. TECHNIQUE: Multiple real-time grayscale images were obtained over the left lower extremity in various projections. Additional duplex Doppler and color Doppler images were also obtained. INDICATION: Swollen red lower extremity. While there is no visualized left lower extremity venous thrombus, compressibility was limited at the mid and lower thigh as well as beyond and augmentation maneuvers could not be performed owing to intolerability. We can see color Doppler blood flow throughout the left lower activity arterial system and no demonstrated thrombus. Impression: Limited by swelling and pain, precluding compressibility and augmentation of the mid to lower venous structures however color Doppler blood flow is preserved and no thrombus or occlusive segment identified. Dictated by: Dictated on workstation # [id number]
[2021-02-24 08:51] LABS: ALBUMIN 2.9 GM/DL (3.2-4.5); BILIRUBIN,TOTAL 0.5 MG/DL (0.1-1.0); CALCIUM 8.1 MG/DL (8.5-10.1); CREATININE SERUM 1.04 MG/DL (0.60-1.30); POTASSIUM 4.3 MMOL/L (3.6-5.0); TOTAL PROTEIN 5.8 GM/DL (6.4-8.2)
[2021-02-24 08:52] LABS: BAND NEUTROPHILS 11 %; BASOPHILS % (MANUAL) 0 %; EOSINOPHILS % (MANUAL) 1 %; LYMPHOCYTES % (MANUAL) 11 %; MONOCYTES % (MANUAL) 1 %; NEUTROPHILS % (MANUAL) 76 %; RBC MORPH NORMAL
[2021-02-24] MEDS: FLUoxetine HCL 20 MG (PROzac) CAP PO SCH ×2 (08:52→20:17)
[2021-02-24] MEDS: ASPIRIN E.C. 81 MG (ECOTRIN) TAB PO SCH (08:52)
[2021-02-24] MEDS: ENOXAPARIN 40 MG/0.4 ML (LOVENOX) SYR SQ SCH ×2 (08:52→20:18)
[2021-02-24] MEDS: HYDROcodone/APAP 5 MG/325 MG (LORTAB) TAB PO PRN ×2 (08:57→20:18)
[2021-02-24 11:50] VITALS: BP 134/70
[2021-02-24] MEDS: cefTRIAXone 1,000 MG/SWFI 10 ML IV PUSH IV SCH ×2 (14:34)
[2021-02-24 16:00] VITALS: BP 121/73
[2021-02-24 20:05] VITALS: BP 143/71
[2021-02-24] MEDS: AMITRIPTYLINE 50 MG (ELAVIL) TAB PO SCH (20:17)
--- NOTE | 2021-02-24 20:41 | Progress Note ---
Subjective Subjective/Events-last exam Patient states that the pain is improving. She is tolerating PO diet and getting to bedside commode Review of Systems General: Fatigue, Malaise Pulmonary: No Dyspnea, No Cough Cardiovascular: Edema; No: Chest Pain, Palpitations Gastrointestinal: No: Nausea, Vomiting, Abdominal Pain, Diarrhea, Constipation Musculoskeletal: leg pain Neurological: Weakness, Incoordination Focused Exam Lactate Level 02/22/21 18:05: Lactic Acid Level 2.32*H 02/22/21 21:04: Lactic Acid Level 2.62*H 02/22/21 23:33: Lactic Acid Level 1.69 Objective Exam Last Set of Vital Signs Vital Signs Date Time Temp Pulse Resp B/P (MAP) Pulse Ox O2 Delivery O2 Flow Rate FiO2 02/24/21 20:05 37.6 75 20 143/71 (95) 96 Room Air Capillary Refill : Less Than 3 Seconds I&O Intake and Output 02/24/21 00:00 Intake Total 3670 ml Balance 3670 ml Intake Oral 1670 ml IV Total 2000 ml # Voids 5 # Bowel Movements 3 General: Alert, Oriented X3, Cooperative, No Acute Distress Lungs: Clear to Auscultation, Normal Air Movement Heart: Regular Rate, No Murmurs Abdomen: Normal Bowel Sounds, Soft, No Tenderness, No Masses Extremities: Other (LLE: erythema and swelling, + lymphedema, moderately ttp) Results/Procedures Lab Laboratory Tests 02/24/21 05:17: Glucometer 152H 02/24/21 08:15: White Blood Count 7.2, Red Blood Count 3.40L, Hemoglobin 11.9, Hematocrit 35, Mean Corpuscular Volume 104H, Mean Corpuscular Hemoglobin 35H, Mean Corpuscular Hemoglobin Concent 34, Red Cell Distribution Width 12.5, Platelet Count 88L, Mean Platelet Volume 9.7, Immature Granulocyte % (Auto) 0, Neutrophils (%) (Auto) 82H, Lymphocytes (%) (Auto) 12, Monocytes (%) (Auto) 4, Eosinophils (%) (Auto) 1, Basophils (%) (Auto) 0, Neutrophils # (Auto) 5.8, Lymphocytes # (Auto) 0.9L, Monocytes # (Auto) 0.3, Eosinophils # (Auto) 0.1, Basophils # (Auto) 0.0, Immature Granulocyte # (Auto) 0.0, Neutrophils % (Manual) 76, Lymphocytes % (Manual) 11, Monocytes % (Manual) 1, Eosinophils % (Manual) 1, Basophils % (Manual) 0, Band Neutrophils 11, Blood Morphology Comment NORMAL, Sodium Level 136, Potassium Level 4.3, Chloride Level 107, Carbon Dioxide Level 19L, Anion Gap 10, Blood Urea Nitrogen 27H, Creatinine 1.04, Estimat Glomerular Filtration Rate 53, BUN/Creatinine Ratio 26, Glucose Level 148H, Calcium Level 8.1L, Corrected Calcium 9.0, Total Bilirubin 0.5, Aspartate Amino Transf (AST/SGOT) 21, Alanine Aminotransferase (ALT/SGPT) 19, Alkaline Phosphatase 56, Total Protein 5.8L, Albumin 2.9L 02/24/21 11:21: Glucometer 228H 02/24/21 16:14: Glucometer 177H 02/24/21 20:26: Glucometer 171H Assessment/Plan Assessment/Plan (1) Cellulitis of left lower extremity Status: Acute Assessment & Plan: - Continue IV antibiotics, venous doppler pending 02/24: Dopple neg for DVT, continue IV antibiotics, elevation when in bed (2) Non-insulin dependent diabetes mellitus Status: Chronic Assessment & Plan: - A1c pending, SSI, Accuchecks (3) Lmg-htlhdxk-blapcrxgp 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
[2021-02-25] VITALS: BP 124/66
[2021-02-25] MEDS: NS IV 1000 ML 1,000 ML IV SCH ×4 (01:42→21:42)
[2021-02-25] MEDS: HYDROcodone/APAP 5 MG/325 MG (LORTAB) TAB PO PRN ×3 (02:12→18:39)
[2021-02-25 04:00] VITALS: BP 116/73
[2021-02-25 05:53] LABS: BASOPHILS % (AUTO) 1 % (0-10); EOSINOPHILS % (AUTO) 2 % (0-10); HEMOGLOBIN 11.6 g/dL (11.5-16.0); MEAN PLATELET VOLUME 9.7 fL (9.0-12.2); MONOCYTES # (AUTO) 0.3 10^3/uL (0.0-1.0)
[2021-02-25 05:54] LABS: EOSINOPHILS # (AUTO) 0.2 10^3/uL (0.0-0.3); HEMATOCRIT 34 % (35-52); LYMPHOCYTES # (AUTO) 1.1 10^3/uL (1.0-4.0); LYMPHOCYTES % (AUTO) 17 % (12-44); MEAN CORPUSCULAR HEMOGLOBIN 36 pg (25-34); MEAN CORPUSCULAR HGB CONC 34 g/dL (32-36); MEAN CORPUSCULAR VOLUME 105 fL (80-99); MONOCYTES % (AUTO) 5 % (0-12); NEUTROPHILS # (AUTO) 4.8 10^3/uL (1.8-7.8); NEUTROPHILS % (AUTO) 75 % (42-75); PLATELET COUNT 105 10^3/uL (130-400); WHITE BLOOD COUNT 6.4 10^3/uL (4.3-11.0)
[2021-02-25 06:00] LABS: ALBUMIN 2.8 GM/DL (3.2-4.5); POTASSIUM 4.1 MMOL/L (3.6-5.0)
[2021-02-25 06:01] LABS: CALCIUM 7.8 MG/DL (8.5-10.1)
[2021-02-25 06:03] LABS: TOTAL PROTEIN 5.6 GM/DL (6.4-8.2)
[2021-02-25] MEDS: inSUlin ASPART (NovoLOG) 1 UNIT/0.01 ML (CHARGE PER UNIT) SC SCH ×4 (06:03→21:42)
[2021-02-25 06:04] LABS: BILIRUBIN,TOTAL 0.4 MG/DL (0.1-1.0)
[2021-02-25 06:06] LABS: CREATININE SERUM 0.9 MG/DL (0.60-1.30)
[2021-02-25 08:00] VITALS: BP 135/62
[2021-02-25] MEDS: ENOXAPARIN 40 MG/0.4 ML (LOVENOX) SYR SQ SCH ×2 (09:28→21:42)
[2021-02-25] MEDS: FLUoxetine HCL 20 MG (PROzac) CAP PO SCH ×2 (09:29→21:41)
[2021-02-25] MEDS: ASPIRIN E.C. 81 MG (ECOTRIN) TAB PO SCH (09:29)
--- NOTE | 2021-02-25 10:16 | Physical Therapy Evaluation ---
PT Evaluation-General Medical Diagnosis Admission Date Feb 22, 2021 at 16:47 Medical Diagnosis: left LE cellulitis/ELEANOR/sepsis Onset Date: Feb 22, 2021 Therapy Diagnosis Therapy Diagnosis: debility/weakness Height/Weight Height (Feet): 5 Height (Inches): 6.00 Weight (Pounds): 290 Weight (Ounces): 1.0 Precautions Precautions/Isolations: Fall Prevention, Standard Precautions Referral Physician: Neto Reason for Referral: Evaluation/Treatment Medical History Pertinent Medical History: Arthritis, CAD, CVA, DM, Neuropathy, Smoking Additional Medical History morbid obesity Current History ER secondary to left LE redness Reviewed History: Yes Social History Home: Single Level Current Living Status: Other Family Prior Prior Level of Function SCALE: Activities may be completed with or without assistive devices. 0-Rqparrxiit-jdpqjli completes the activity by him/herself with no assistance from a helper. 5-Set-up or Clean-up Assistance-helper sets up or cleans up; patient completes activity. [place] assists only prior to or following the activity. 4-Supervision or Touching Assistance-helper provides verbal cues and/or touching/steadying and/or contact guard assistance as patient completes activity. Assistance may be provided throughout the activity or intermittently. 3-Partial/Moderate Assistance-helper does LESS THAN HALF the effort. [place] lifts, holds or supports trunk or limbs, but provides less than half the effort. 2-Substantial/Maximal Assistance-helper does MORE THAN HALF the effort. [place] lifts or holds trunk or limbs and provides more than half the effort. 6-Fhfxgszwz-qvempj does ALL the effort. Patient does none of the effort to complete the activity. Or, the assistance of 2 or more helpers is required for the patient to complete the activity. If activity was not attempted, code reason: 7-Patient Refused. 9-Not Applicable-not attempted and the patient did not perform the activity before the current illness, exacerbation or injury. 10-Not Attempted due to Environmental Limitations-(lack of equipment, weather restraints, etc.). 88-Not Attempted due to Medical Conditions or Safety Concerns. Bed Mobility: 2 Transfers (B,C,W/C): 3 Gait: 3 Stairs: 2 (family assist) Indoor Mobility (Ambulation): Needed Some Help Stairs: Needed Some Help Prior Devices Use: Manual wheelchair, Walker PT Evaluation-Current Subjective Patient agrees to PT. Pain Numeric Pain Scale: 10-Worst Possible Pain Location: Left Location Body Site: Calf Pain Description: Acute, Heavy, Burning, Tightness, Sharp Objective Patient Orientation: Person, Time, Situation Attachments: IV ROM/Strength ROM Lower Extremities bilateral LE limited due to obesity with Left LE increase edema and redness due to cellulitis Strength Lower Extremities no formal testing/left LE 3/5, right LE 3/5 Integumentary/Posture Integumentary severe edema and redness left distal LE Posture trunk flexed due to sedentary lifestyle Neuromuscular (Tone, Coordination, Reflexes) grossly intact Sensory Vision: Functional Hearing: Functional Transfers Roll Left to Right (QC): 1 Lying to Sitting/Side of Bed(Q: 1 Sit to Stand (QC): 2 Chair/Oup-lu-Aczfx Xfer(QC): 2 Gait Mode of Locomotion: Both Anticipated Mode of Locomotion: Both Walk 10 feet (QC): 2 Distance: 10' to recliner Gait Assistive Device: FWW Comments/Gait Description WBOS/shuffle gait sequence Balance Sitting Static: Fair Sitting Dynamic: Fair Standing Static: Fair Standing Dynamic: Fair Picking up an Object (QC): 9 Assessment/Needs 65 y.o. female, will benefit from skilled PT to address functional strength and mobility to improve current LOF. Patient currently limited by severe c/o left LE pain with any movement with noted edema and redness left distal LE. 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 Spray Drier Operator Goals PT Long-Term Goals Time Frame: Mar 13, 2021 Roll Left & Right (QC): 3 Sit to Lying (QC): 3 Lying-Sitting on Side/Bed(QC): 3 Sit to Stand (QC): 3 Chair/Kae-ni-Doull Xfer(QC): 3 Toilet Transfer (QC): 3 Walk 10 feet (QC): 3 Walk 50ft with 2 Turns (QC): 3 PT Plan Problem List Problem List: Activity Tolerance, Functional Strength, Safety, Balance, Gait, Transfer, Bed Mobility, ROM Treatment/Plan Treatment Plan: Continue Plan of Care Treatment Plan: Bed Mobility, Education, Functional Activity Ezra, Functional Strength, Gait, Safety, Therapeutic Exercise, Transfers Treatment Duration: Mar 13, 2021 Frequency: 6 times per week Estimated Hrs Per Day: .25 hour per day Patient and/or Family Agrees t: Yes Time/GCodes Time In: 901 Time Out: 912 Total Billed Treatment Time: 11 Total Billed Treatment 1 visit EVMod 11 min RENATA RYAN PT Feb 25, 2021 10:16
[2021-02-25] MEDS: CEFTRIAXONE 1000 MG/50 ML IV SCH (11:08)
[2021-02-25] MEDS: PRE MIX IV SCH (11:08)
[2021-02-25 11:50] VITALS: BP 135/64
[2021-02-25 16:00] VITALS: BP 115/74
--- NOTE | 2021-02-25 19:02 | Progress Note ---
Subjective Subjective/Events-last exam Patient having increasing pain in LE. Otherwise tolerating PO diet. Redness is increasing up her thigh. Review of Systems Pulmonary: No Dyspnea, No Cough Cardiovascular: No: Chest Pain, Palpitations Gastrointestinal: No: Nausea, Vomiting, Abdominal Pain Musculoskeletal: leg pain Neurological: Weakness, Incoordination Focused Exam Lactate Level 02/22/21 21:04: Lactic Acid Level 2.62*H 02/22/21 23:33: Lactic Acid Level 1.69 Objective Exam Last Set of Vital Signs Vital Signs Date Time Temp Pulse Resp B/P (MAP) Pulse Ox O2 Delivery O2 Flow Rate FiO2 02/25/21 16:00 36.7 79 20 115/74 (88) 98 Room Air Capillary Refill : Less Than 3 Seconds I&O Intake and Output 02/25/21 00:00 Intake Total 2580 ml Output Total 275 ml Balance 2305 ml Intake Oral 1570 ml IV Total 1010 ml Output Urine Total 275 ml # Voids 6 # Bowel Movements 1 General: Alert, Oriented X3, Cooperative, No Acute Distress Lungs: Clear to Auscultation, Normal Air Movement Heart: Regular Rate, No Murmurs Abdomen: Normal Bowel Sounds, Soft, No Tenderness Extremities: Other (LLE with lymphedema and erythema, erythema up to thign on medial side ) Results/Procedures Lab Laboratory Tests 02/24/21 20:26: Glucometer 171H 02/25/21 05:30: White Blood Count 6.4, Red Blood Count 3.26L, Hemoglobin 11.6, Hematocrit 34L, Mean Corpuscular Volume 105H, Mean Corpuscular Hemoglobin 36H, Mean Corpuscular Hemoglobin Concent 34, Red Cell Distribution Width 12.4, Platelet Count 105L, Mean Platelet Volume 9.7, Immature Granulocyte % (Auto) 1, Neutrophils (%) (Auto) 75, Lymphocytes (%) (Auto) 17, Monocytes (%) (Auto) 5, Eosinophils (%) (Auto) 2, Basophils (%) (Auto) 1, Neutrophils # (Auto) 4.8, Lymphocytes # (Auto) 1.1, Monocytes # (Auto) 0.3, Eosinophils # (Auto) 0.2, Basophils # (Auto) 0.0, Immature Granulocyte # (Auto) 0.1, Percent Immature Platelet Fraction 2.4, Sodium Level 135, Potassium Level 4.1, Chloride Level 108H, Carbon Dioxide Level 18L, Anion Gap 9, Blood Urea Nitrogen 23H, Creatinine 0.90, Estimat Glomerular Filtration Rate 63, BUN/Creatinine Ratio 26, Glucose Level 142H, Calcium Level 7.8L, Corrected Calcium 8.8, Total Bilirubin 0.4, Aspartate Amino Transf (AST/SGOT) 24, Alanine Aminotransferase (ALT/SGPT) 19, Alkaline Phosphatase 62, Total Protein 5.6L, Albumin 2.8L 02/25/21 11:03: Glucometer 201H 02/25/21 16:34: Glucometer 167H Assessment/Plan Assessment/Plan (1) Cellulitis of left lower extremity Status: Acute Assessment & Plan: - Continue IV antibiotics, venous doppler pending 02/24: Dopple neg for DVT, continue IV antibiotics, elevation when in bed 02/25: Continue IV antibiotics, Discussed the importance of elevation of LLE and mild compression with MAICO wraps (2) Non-insulin dependent diabetes mellitus Status: Chronic Assessment & Plan: - A1c pending, SSI, Accuchecks (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
[2021-02-25 19:24] VITALS: BP 117/70
[2021-02-25] MEDS: GABAPENTIN 600 MG (NEURONTIN) TAB PO PRN (21:41)
[2021-02-25] MEDS: AMITRIPTYLINE 50 MG (ELAVIL) TAB PO SCH (21:42)
[2021-02-26] VITALS: BP 135/78
[2021-02-26 04:00] VITALS: BP 116/71
[2021-02-26] MEDS: HYDROcodone/APAP 5 MG/325 MG (LORTAB) TAB PO PRN ×3 (04:15→15:11)
[2021-02-26] MEDS: NS IV 1000 ML 1,000 ML IV SCH (05:36)
[2021-02-26 06:01] LABS: BASOPHILS # (AUTO) 0.1 10^3/uL (0.0-0.1); BASOPHILS % (AUTO) 1 % (0-10); EOSINOPHILS # (AUTO) 0.2 10^3/uL (0.0-0.3); EOSINOPHILS % (AUTO) 2 % (0-10); HEMATOCRIT 35 % (35-52); HEMOGLOBIN 11.8 g/dL (11.5-16.0); LYMPHOCYTES # (AUTO) 1.1 10^3/uL (1.0-4.0); LYMPHOCYTES % (AUTO) 14 % (12-44); MEAN CORPUSCULAR HEMOGLOBIN 35 pg (25-34); MEAN CORPUSCULAR HGB CONC 34 g/dL (32-36); MEAN CORPUSCULAR VOLUME 104 fL (80-99); MEAN PLATELET VOLUME 9.6 fL (9.0-12.2); MONOCYTES # (AUTO) 0.4 10^3/uL (0.0-1.0); MONOCYTES % (AUTO) 5 % (0-12); NEUTROPHILS # (AUTO) 6.3 10^3/uL (1.8-7.8); NEUTROPHILS % (AUTO) 77 % (42-75); PLATELET COUNT 118 10^3/uL (130-400); WHITE BLOOD COUNT 8.1 10^3/uL (4.3-11.0)
[2021-02-26 06:07] LABS: ALBUMIN 2.9 GM/DL (3.2-4.5); POTASSIUM 4.1 MMOL/L (3.6-5.0)
[2021-02-26 06:08] LABS: CALCIUM 7.9 MG/DL (8.5-10.1)
[2021-02-26 06:10] LABS: TOTAL PROTEIN 5.7 GM/DL (6.4-8.2)
[2021-02-26 06:11] LABS: BILIRUBIN,TOTAL 0.4 MG/DL (0.1-1.0)
[2021-02-26 06:13] LABS: CREATININE SERUM 0.9 MG/DL (0.60-1.30)
[2021-02-26] MEDS: inSUlin ASPART (NovoLOG) 1 UNIT/0.01 ML (CHARGE PER UNIT) SC SCH ×4 (06:17→20:42)
[2021-02-26 08:00] VITALS: BP 121/57
[2021-02-26] MEDS: FLUoxetine HCL 20 MG (PROzac) CAP PO SCH ×2 (08:51→20:41)
[2021-02-26] MEDS: ENOXAPARIN 40 MG/0.4 ML (LOVENOX) SYR SQ SCH ×2 (08:52→20:37)
[2021-02-26] MEDS: ASPIRIN E.C. 81 MG (ECOTRIN) TAB PO SCH (08:52)
--- NOTE | 2021-02-26 10:46 | Physical Therapy Daily Note ---
PT Daily Note-Current Subjective Patient agrees to PT. She reports she is feeling much better. Pain Numeric Pain Scale: 7 Location: Left Location Body Site: Calf Pain Description: Burning Mental Status Patient Orientation: Normal For Age Attachments: IV Transfers SCALE: Activities may be completed with or without assistive devices. 4-Ajenbueevm-zocwpue completes the activity by him/herself with no assistance from a helper. 5-Set-up or Clean-up Assistance-helper sets up or cleans up; patient completes activity. [place] assists only prior to or following the activity. 4-Supervision or Touching Assistance-helper provides verbal cues and/or touching/steadying and/or contact guard assistance as patient completes activity. Assistance may be provided throughout the activity or intermittently. 3-Partial/Moderate Assistance-helper does LESS THAN HALF the effort. [place] lifts, holds or supports trunk or limbs, but provides less than half the effort. 2-Substantial/Maximal Assistance-helper does MORE THAN HALF the effort. [place] lifts or holds trunk or limbs and provides more than half the effort. 9-Byufqktqg-subiba does ALL the effort. Patient does none of the effort to complete the activity. Or, the assistance of 2 or more helpers is required for the patient to complete the activity. If activity was not attempted, code reason: 7-Patient Refused. 9-Not Applicable-not attempted and the patient did not perform the activity before the current illness, exacerbation or injury. 10-Not Attempted due to Environmental Limitations-(lack of equipment, weather restraints, etc.). 88-Not Attempted due to Medical Conditions or Safety Concerns. Lying to Sitting/Side of Bed(Q: 4 (SBA) Sit to Stand (QC): 4 (SBA) Toilet Transfer (QC): 4 (SBA) Patient requires time to complete tasks Assessment Patient tolerates minimal activity and is on commode with call light in reach PT Longterm Goals Food Technologist Goals PT Longterm Goals Time Frame: Mar 13, 2021 Roll Left & Right (QC): 3 Sit to Lying (QC): 3 Lying-Sitting on Side/Bed(QC): 3 Sit to Stand (QC): 3 Chair/Jwl-fo-Ivesp Xfer(QC): 3 Toilet Transfer (QC): 3 Walk 10 feet (QC): 3 Walk 50ft with 2 Turns (QC): 3 PT Plan Treatment/Plan Treatment Plan: Continue Plan of Care Treatment Plan: Bed Mobility, Education, Functional Activity Ezra, Functional Strength, Gait, Safety, Therapeutic Exercise, Transfers Treatment Duration: Mar 13, 2021 Frequency: 6 times per week Estimated Hrs Per Day: .25 hour per day Patient and/or Family Agrees t: Yes Time/GCodes Time In: 846 Time Out: 859 Total Billed Treatment Time: 13 Total Billed Treatment 1 visit FA 13 min RENATA RYAN PT Feb 26, 2021 10:46
[2021-02-26 12:00] VITALS: BP 126/56
[2021-02-26] MEDS: PRE MIX IV SCH (12:12)
[2021-02-26] MEDS: CEFTRIAXONE 1000 MG/50 ML IV SCH (12:12)
[2021-02-26] MEDS ORDERED: NS IV 1000 ML 1,000 ML IV SCH (13:00)
[2021-02-26 15:21] VITALS: BP 110/67
--- NOTE | 2021-02-26 15:31 | Progress Note ---
Subjective Subjective/Events-last exam Patient feeling better this AM. States that she can get out of bed and stand easier then the previous days. Pain is improving Review of Systems Pulmonary: No Dyspnea, No Cough Cardiovascular: No: Chest Pain, Palpitations Gastrointestinal: No: Nausea, Vomiting, Abdominal Pain, Diarrhea, Constipation Musculoskeletal: leg pain Neurological: Weakness, Incoordination Objective Exam Last Set of Vital Signs Vital Signs Date Time Temp Pulse Resp B/P (MAP) Pulse Ox O2 Delivery O2 Flow Rate FiO2 02/26/21 15:21 36.2 71 18 110/67 (81) 96 Room Air Capillary Refill : Less Than 3 Seconds I&O Intake and Output 02/26/21 00:00 Intake Total 1150 ml Balance 1150 ml Intake Oral 1150 ml # Voids 10 General: Alert, Oriented X3, Cooperative, No Acute Distress Lungs: Clear to Auscultation, Normal Air Movement Heart: Regular Rate, No Murmurs Abdomen: Normal Bowel Sounds, Soft, No Tenderness, No Masses Extremities: Other (LLE: lymphedema with erythema) Results/Procedures Lab Laboratory Tests 02/25/21 16:34: Glucometer 167H 02/25/21 20:51: Glucometer 182H 02/26/21 05:51: White Blood Count 8.1, Red Blood Count 3.34L, Hemoglobin 11.8, Hematocrit 35, Mean Corpuscular Volume 104H, Mean Corpuscular Hemoglobin 35H, Mean Corpuscular Hemoglobin Concent 34, Red Cell Distribution Width 12.3, Platelet Count 118L, Mean Platelet Volume 9.6, Immature Granulocyte % (Auto) 1, Neutrophils (%) (Auto) 77H, Lymphocytes (%) (Auto) 14, Monocytes (%) (Auto) 5, Eosinophils (%) (Auto) 2, Basophils (%) (Auto) 1, Neutrophils # (Auto) 6.3, Lymphocytes # (Auto) 1.1, Monocytes # (Auto) 0.4, Eosinophils # (Auto) 0.2, Basophils # (Auto) 0.1, Immature Granulocyte # (Auto) 0.1, Percent Immature Platelet Fraction 1.9, Sodium Level 136, Potassium Level 4.1, Chloride Level 108H, Carbon Dioxide Level 18L, Anion Gap 10, Blood Urea Nitrogen 18, Creatinine 0.90, Estimat Glomerular Filtration Rate 63, BUN/Creatinine Ratio 20, Glucose Level 164H, Calcium Level 7.9L, Corrected Calcium 8.8, Total Bilirubin 0.4, Aspartate Amino Transf (AST/SGOT) 22, Alanine Aminotransferase (ALT/SGPT) 20, Alkaline Phosphatase 59, Total Protein 5.7L, Albumin 2.9L 02/26/21 05:57: Glucometer 150H 02/26/21 11:36: Glucometer 215H 02/26/21 15:23: Glucometer 166H Assessment/Plan Assessment/Plan (1) Cellulitis of left lower extremity Status: Acute Assessment & Plan: - Continue IV antibiotics, venous doppler pending 02/24: Dopple neg for DVT, continue IV antibiotics, elevation when in bed 02/25: Continue IV antibiotics, Discussed the importance of elevation of LLE and mild compression with MAICO wraps 02/26: LE elevation, continue IV antibiotics (2) Non-insulin dependent diabetes mellitus Status: Chronic Assessment & Plan: - A1c pending, SSI, Accuchecks (3) Yvh-ybksaoe-irfxkvhso 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
[2021-02-26 19:05] VITALS: BP 116/71
[2021-02-26] MEDS: AMITRIPTYLINE 50 MG (ELAVIL) TAB PO SCH (20:41)
[2021-02-27 00:54] VITALS: BP 127/58
[2021-02-27 04:00] VITALS: BP 140/66
[2021-02-27 06:22] LABS: BASOPHILS % (AUTO) 0 % (0-10); EOSINOPHILS # (AUTO) 0.2 10^3/uL (0.0-0.3); EOSINOPHILS % (AUTO) 2 % (0-10); HEMATOCRIT 36 % (35-52); HEMOGLOBIN 12.1 g/dL (11.5-16.0); LYMPHOCYTES # (AUTO) 1.4 10^3/uL (1.0-4.0); LYMPHOCYTES % (AUTO) 17 % (12-44); MEAN CORPUSCULAR HEMOGLOBIN 36 pg (25-34); MEAN CORPUSCULAR HGB CONC 34 g/dL (32-36); MEAN CORPUSCULAR VOLUME 105 fL (80-99); MEAN PLATELET VOLUME 9.1 fL (9.0-12.2); MONOCYTES # (AUTO) 0.4 10^3/uL (0.0-1.0); MONOCYTES % (AUTO) 5 % (0-12); NEUTROPHILS # (AUTO) 5.8 10^3/uL (1.8-7.8); NEUTROPHILS % (AUTO) 69 % (42-75); PLATELET COUNT 148 10^3/uL (130-400); WHITE BLOOD COUNT 8.3 10^3/uL (4.3-11.0)
[2021-02-27 06:37] LABS: POTASSIUM 4.1 MMOL/L (3.6-5.0)
[2021-02-27] MEDS: inSUlin ASPART (NovoLOG) 1 UNIT/0.01 ML (CHARGE PER UNIT) SC SCH ×4 (06:37→21:28)
[2021-02-27 06:42] LABS: CREATININE SERUM 0.87 MG/DL (0.60-1.30)
[2021-02-27 07:27] VITALS: BP 135/76
[2021-02-27] MEDS: HYDROcodone/APAP 5 MG/325 MG (LORTAB) TAB PO PRN ×5 (08:30→22:00)
[2021-02-27] MEDS: ASPIRIN E.C. 81 MG (ECOTRIN) TAB PO SCH (08:30)
[2021-02-27] MEDS: ENOXAPARIN 40 MG/0.4 ML (LOVENOX) SYR SQ SCH ×2 (08:31→21:29)
[2021-02-27] MEDS: FLUoxetine HCL 20 MG (PROzac) CAP PO SCH ×2 (08:31→21:27)
--- NOTE | 2021-02-27 09:40 | Physical Therapy Daily Note ---
PT Daily Note-Current Subjective Pt. in bed, states "I just got back to bed from the chair." Pt. declines getting up again, agrees to bed exercises. She reports significant pain in the L LE, no objective pain rating given. Says she took a pain pill this morning "but it hasn't kicked in yet." Mental Status Patient Orientation: Person, Place, Time, Situation Attachments: IV Transfers SCALE: Activities may be completed with or without assistive devices. 3-Zexzmzbphx-tjgybhp completes the activity by him/herself with no assistance from a helper. 5-Set-up or Clean-up Assistance-helper sets up or cleans up; patient completes activity. [place] assists only prior to or following the activity. 4-Supervision or Touching Assistance-helper provides verbal cues and/or touching/steadying and/or contact guard assistance as patient completes activity. Assistance may be provided throughout the activity or intermittently. 3-Partial/Moderate Assistance-helper does LESS THAN HALF the effort. [place] lifts, holds or supports trunk or limbs, but provides less than half the effort. 2-Substantial/Maximal Assistance-helper does MORE THAN HALF the effort. [place] lifts or holds trunk or limbs and provides more than half the effort. 5-Joryeljvq-dffkyc does ALL the effort. Patient does none of the effort to complete the activity. Or, the assistance of 2 or more helpers is required for the patient to complete the activity. If activity was not attempted, code reason: 7-Patient Refused. 9-Not Applicable-not attempted and the patient did not perform the activity before the current illness, exacerbation or injury. 10-Not Attempted due to Environmental Limitations-(lack of equipment, weather restraints, etc.). 88-Not Attempted due to Medical Conditions or Safety Concerns. Exercises Supine Ex: Ankle pumps, Quad Set, Glut sets, Hip abd/add Supine Reps: 20 Treatments bed exercises 2 x 10 reps, primarily R LE Assessment Current Status: Fair Progress Pt. has minimal active movement in the L LE, patient winces in pain when attempting exercises at the left. Pt. continues to be limited by pain and swelling in the L LE. PT Nursing Home Goals Plaster Machine Operator Goals PT Plaster Machine Operator Goals Time Frame: Mar 13, 2021 Roll Left & Right (QC): 3 Sit to Lying (QC): 3 Lying-Sitting on Side/Bed(QC): 3 Sit to Stand (QC): 3 Chair/Fpz-bz-Nptnn Xfer(QC): 3 Toilet Transfer (QC): 3 Walk 10 feet (QC): 3 Walk 50ft with 2 Turns (QC): 3 PT Plan Treatment/Plan Treatment Plan: Continue Plan of Care Treatment Plan: Bed Mobility, Education, Functional Activity Ezra, Functional Strength, Gait, Safety, Therapeutic Exercise, Transfers Treatment Duration: Mar 13, 2021 Frequency: 6 times per week Estimated Hrs Per Day: .25 hour per day Patient and/or Family Agrees t: Yes Time/GCodes Time In: 0854 Time Out: 903 Total Billed Treatment Time: 10 Total Billed Treatment 1, Ex 10' DEN QUESADA PT Feb 27, 2021 09:40
[2021-02-27 11:28] VITALS: BP 118/75
--- NOTE | 2021-02-27 11:30 | Progress Note - Hospitalist ---
Subjective HPI/CC On Admission Date Seen by Provider: Feb 27, 2021 Time Seen by Provider: 11:00 Subjective/Events-last exam Patient complains of pain in her left leg but otherwise is sitting up in a chair in seems about in her usual state. Review of Systems Musculoskeletal: leg pain Neurological: Weakness Objective Exam Vital Signs Vital Signs Date Time Temp Pulse Resp B/P (MAP) Pulse Ox O2 Delivery O2 Flow Rate FiO2 02/27/21 07:43 Room Air 02/27/21 07:27 36.4 89 22 135/76 (95) 96 Capillary Refill : Less Than 3 Seconds General Appearance: Chronically ill, Obese Neck: Limited Range of Motion Respiratory: Chest Non Tender, Lungs Clear, Normal Breath Sounds, No Accessory Muscle Use, No Respiratory Distress Cardiovascular: Regular Rate, Rhythm, No Gallop, No Murmur Gastrointestinal: Normal Bowel Sounds, Non Tender, Soft Extremity: Calf Tenderness, Inflammation, Pedal Edema Neurologic/Psychiatric: Alert, Oriented x3, Depressed Affect Skin: Normal Color, Warm/Dry Results/Procedures Lab Laboratory Tests 02/27/21 06:03 Patient resulted labs reviewed. Assessment/Plan Assessment and Plan Assess & Plan/Chief Complaint Left lower leg cellulitis on Rocephin no evidence of DVT Type 2 diabetes poor control Morbid obesity D with chronic venous insufficiency Hypertension Nonambulatory Plan to continue Rocephin DVT prophylaxis and physical therapy. GALINDO VILLALOBOS MD Feb 27, 2021 11:30
[2021-02-27 16:47] VITALS: BP 123/72
[2021-02-27 19:13] VITALS: BP 138/70
[2021-02-27] MEDS: AMITRIPTYLINE 50 MG (ELAVIL) TAB PO SCH (21:27)
[2021-02-28 00:30] VITALS: BP 135/72
[2021-02-28 04:00] VITALS: BP 132/63
[2021-02-28] MEDS: HYDROcodone/APAP 5 MG/325 MG (LORTAB) TAB PO PRN ×3 (05:59→21:25)
[2021-02-28] MEDS: inSUlin ASPART (NovoLOG) 1 UNIT/0.01 ML (CHARGE PER UNIT) SC SCH ×4 (06:01→21:26)
[2021-02-28 07:38] VITALS: BP 127/77
[2021-02-28] MEDS: cefTRIAXone 1 GM PRE-MIX 50 ML IV SCH (09:03)
[2021-02-28] MEDS: ENOXAPARIN 40 MG/0.4 ML (LOVENOX) SYR SQ SCH ×2 (09:04→21:24)
[2021-02-28] MEDS: FLUoxetine HCL 20 MG (PROzac) CAP PO SCH ×2 (09:04→21:25)
[2021-02-28] MEDS: ASPIRIN E.C. 81 MG (ECOTRIN) TAB PO SCH (09:04)
--- NOTE | 2021-02-28 11:10 | Progress Note - Hospitalist ---
Subjective HPI/CC On Admission Date Seen by Provider: Feb 28, 2021 Time Seen by Provider: 11:00 Subjective/Events-last exam Patient is without complaint today. She says her leg continues to be very very painful. She is getting ready to have a shower and a bowel movement. She remains cheerful despite all odds Review of Systems Musculoskeletal: leg pain Objective Exam Vital Signs Vital Signs Date Time Temp Pulse Resp B/P (MAP) Pulse Ox O2 Delivery O2 Flow Rate FiO2 02/28/21 12:03 36.0 74 20 112/68 (83) 97 Room Air Capillary Refill : Less Than 3 Seconds General Appearance: No Apparent Distress, Obese HEENT: Other (Or dentition) Neck: Non Tender, Supple Respiratory: Chest Non Tender, Lungs Clear, No Accessory Muscle Use Cardiovascular: Regular Rate, Rhythm, No Gallop Gastrointestinal: Normal Bowel Sounds, Soft Extremity: Calf Tenderness, Inflammation, Other (Use erythema and heat up to proximal calf) Neurologic/Psychiatric: Alert, Oriented x3, No Motor/Sensory Deficits, Normal Mood/Affect Skin: Normal Color, Warm/Dry Results/Procedures Lab Patient resulted labs reviewed. Assessment/Plan Assessment and Plan Assess & Plan/Chief Complaint Left lower leg cellulitis on Rocephin no evidence of DVT Type 2 diabetes poor control Morbid obesity with chronic venous insufficiency Hypertension Nonambulatory Plan to continue Rocephin DVT prophylaxis and physical therapy. GALINDO VILLALOBOS MD Feb 28, 2021 11:10
[2021-02-28 12:03] VITALS: BP 112/68
[2021-02-28 15:26] VITALS: BP 124/60
[2021-02-28] MEDS: ACETAMINOPHEN 500 MG TAB (TYLENOL) PO PRN (16:08)
[2021-02-28 19:14] VITALS: BP 133/62
[2021-02-28] MEDS: AMITRIPTYLINE 50 MG (ELAVIL) TAB PO SCH (21:25)
[2021-03-01] VITALS (7 sets, daily range): BP systolic 107–152; BP diastolic 56–83
[2021-03-01] MEDS: inSUlin ASPART (NovoLOG) 1 UNIT/0.01 ML (CHARGE PER UNIT) SC SCH ×4 (06:21→20:47)
[2021-03-01] MEDS: FLUoxetine HCL 20 MG (PROzac) CAP PO SCH ×2 (08:22→21:33)
[2021-03-01] MEDS: ASPIRIN E.C. 81 MG (ECOTRIN) TAB PO SCH (08:22)
[2021-03-01] MEDS: ENOXAPARIN 40 MG/0.4 ML (LOVENOX) SYR SQ SCH ×2 (08:22→21:32)
[2021-03-01] MEDS: cefTRIAXone 1 GM PRE-MIX 50 ML IV SCH (08:23)
[2021-03-01] MEDS: HYDROcodone/APAP 5 MG/325 MG (LORTAB) TAB PO PRN ×3 (08:41→21:33)
[2021-03-01] MEDS ORDERED: VANCOMYCIN INJECTION 1,000 MG in NS (IVPB) 250 ML IV SCH (10:30)
--- NOTE | 2021-03-01 10:30 | Physical Therapy Daily Note ---
PT Daily Note-Current Subjective Patient in a very good mood and agrees to PT. Mental Status Patient Orientation: Normal For Age Attachments: IV Transfers SCALE: Activities may be completed with or without assistive devices. 6-Rchwtahyca-qayvvtn completes the activity by him/herself with no assistance from a helper. 5-Set-up or Clean-up Assistance-helper sets up or cleans up; patient completes activity. [place] assists only prior to or following the activity. 4-Supervision or Touching Assistance-helper provides verbal cues and/or touching/steadying and/or contact guard assistance as patient completes activity. Assistance may be provided throughout the activity or intermittently. 3-Partial/Moderate Assistance-helper does LESS THAN HALF the effort. [place] lifts, holds or supports trunk or limbs, but provides less than half the effort. 2-Substantial/Maximal Assistance-helper does MORE THAN HALF the effort. [place] lifts or holds trunk or limbs and provides more than half the effort. 2-Epdwzfakp-rjbupc does ALL the effort. Patient does none of the effort to complete the activity. Or, the assistance of 2 or more helpers is required for the patient to complete the activity. If activity was not attempted, code reason: 7-Patient Refused. 9-Not Applicable-not attempted and the patient did not perform the activity before the current illness, exacerbation or injury. 10-Not Attempted due to Environmental Limitations-(lack of equipment, weather restraints, etc.). 88-Not Attempted due to Medical Conditions or Safety Concerns. Lying to Sitting/Side of Bed(Q: 6 Sit to Stand (QC): 4 Chair/Aan-sf-Rdloo Xfer(QC): 4 Gait Training Does the Patient Walk?: Yes Distance: 25' Walk 10 feet (QC): 4 (SBA) Gait Assistive Device: FWW step to gait sequence Assessment Noted redness left LE distal to proximal with weeping. Patient up in recliner with bilateral LE elevated. PT Shelter Goals Medical Affairs Director Goals PT Shelter Goals Time Frame: Mar 13, 2021 Roll Left & Right (QC): 3 Sit to Lying (QC): 3 Lying-Sitting on Side/Bed(QC): 3 Sit to Stand (QC): 3 Chair/Xht-ek-Jjkvr Xfer(QC): 3 Toilet Transfer (QC): 3 Walk 10 feet (QC): 3 Walk 50ft with 2 Turns (QC): 3 PT Plan Treatment/Plan Treatment Plan: Continue Plan of Care Treatment Plan: Bed Mobility, Education, Functional Activity Ezra, Functional Strength, Gait, Safety, Therapeutic Exercise, Transfers Treatment Duration: Mar 13, 2021 Frequency: 6 times per week Estimated Hrs Per Day: .25 hour per day Patient and/or Family Agrees t: Yes Time/GCodes Time In: 927 Time Out: 937 Total Billed Treatment Time: 10 Total Billed Treatment 1 visit FA 10 min RENATA RYAN PT Mar 01, 2021 10:30
[2021-03-01] MEDS ORDERED: PIPERACILLIN/TAZOBACTAM 4.5 GM in NS (IVPB) 100 ML IV NR (11:00)
[2021-03-01] MEDS ORDERED: VANCOMYCIN 2000 MG/NS 500 ML IVPB IV SCH ×2 (11:30)
--- NOTE | 2021-03-01 12:44 | Consultation - Surgery ---
JUVENAL RIOS 03/01/21 1244: History of Present Illness History of Present Illness Patient Consulted On(randolph/time) 03/01/21 12:39 Date Seen by Provider: Mar 01, 2021 Time Seen by Provider: 12:24 Reason for Visit: Cellulitis History of Present Illness Pt is being consulted by surgery for erythema and swelling of the left leg. Pt came to the ED on 02/22 with complaint of erythema and swelling of the left leg. Said that she first noticed the symptoms the day before (02/21). She does have a constant 9/10 pain on the left leg currently. Leg pain at 10/10 upon palpation. Has also had previous occurrence of cellulitis on face in 2018. Allergies and Home Medications Allergies Uncoded Allergies: IV CONTRAST (Adverse Reaction, Mild, HIVES, 09/17/18) Patient Home Medication List Acetaminophen (Tylenol Extra Strength) 500 Mg Tablet, 1,000 MG PO Q8H PRN for PAIN-MILD (1-4), (Reported) Entered as Reported by: DOYLE CARRILLO on 02/23/21 1035 Last Action: Reviewed Amitriptyline HCl (Amitriptyline HCl) 50 Mg Tablet, 50 MG PO HS, (Reported) Entered as Reported by: DOYLE CARRILLO on 02/23/21 103 Last Action: Continued Aspirin (Aspirin EC) 81 Mg Tablet.dr, 81 MG PO DAILY, (Reported) Entered as Reported by: NERIS PRIETO on 10/26/20 08 Last Action: Continued Fluoxetine HCl (Fluoxetine HCl) 40 Mg Capsule, 40 MG PO BID, (Reported) Entered as Reported by: NERIS PRIETO on 10/26/20850 Last Action: Converted Gabapentin (Gabapentin) 600 Mg Tablet, 600 MG PO TID PRN for NERVE PAIN, (Reported) Entered as Reported by: MINESH CANALES on 09/17/181846 Last Action: Continued Ibuprofen (Ibuprofen) 800 Mg Tablet, 800 MG PO TID PRN for PAIN-MILD (1-4), (Reported) Entered as Reported by: STACIE BERNAL on 05/15/19 1015 Last Action: Reviewed Losartan Potassium (Losartan Potassium) 50 Mg Tablet, 50 MG PO DAILY, (Reported) Entered as Reported by: MINESH CANALES on 09/17/181846 Last Action: Reviewed Metformin HCl (Metformin HCl) 1,000 Mg Tablet, 1,000 MG PO BID, (Reported) Entered as Reported by: MINESH CANALES on 09/17/181846 Last Action: Reviewed Multivit-Min/Folic Acid/Biotin (Hair, Skin & Nails Caplet) 1 Each Tablet, 1 EACH PO DAILY, (Reported) Entered as Reported by: DOYLE CARRILLO on 02/23/21 1035 Last Action: Reviewed Oxybutynin Chloride (Oxybutynin Chloride) 5 Mg Tablet, 5 MG PO TID PRN for BLADDER SPASMS, (Reported) Entered as Reported by: MINESH CANALES on 09/17/181846 Last Action: Reviewed Tramadol HCl (Tramadol HCl) 50 Mg Tablet, 50 MG PO TID PRN for PAIN-MODERATE (5- 7), (Reported) Entered as Reported by: NERIS PRIETO on 10/26/20 0851 Last Action: Reviewed Discontinued Medications Cefdinir (Cefdinir) 300 Mg Capsule, 300 MG PO BID Discontinued Reason: Duplicate Order Prescribed by: PORSHA ISAACS on 10/26/20 1139 Last Action: Discontinued Cephalexin (Cephalexin) 500 Mg Tablet, 500 MG PO TID Discontinued Reason: Duplicate Order Prescribed by: WEST ELLER on 12/24/20 1646 Last Action: Discontinued Liraglutide (Victoza 3-John) 0.6 Mg/0.1 Ml Pen.injctr, 1.8 MG SC DAILY, (Reported) Discontinued Reason: Duplicate Order Entered as Reported by: MINESH CANALES on 09/17/181846 Last Action: Discontinued Past Wtlqfsp-Pihucd-Tajhec Hx Patient Social History Smoking Status: Light Tobacco Smoker Former Smoker, Quit: Dec 07, 1994 Type Used: Cigarettes 2nd Hand Smoke Exposure: No Recent Hopitalizations: No Alcohol Use?: Yes Have you traveled recently?: No Immunizations Up To Date Tetanus Booster (TDap): Unknown Date of Pneumonia Vaccine: Apr 17, 2015 Seasonal Allergies Seasonal Allergies: No Surgeries History of Surgeries: Yes (CYSTOSCOPIES, DILITATION URETHRAL STRICTURE) Surgeries: Appendectomy, Bladder Surgery, Section, Eye Surgery, Gall bladder, Tonsillectomy, Tubal Ligation Respiratory History of Respiratory Disorde: Yes Respiratory Disorders: COPD Cardiovascular History of Cardiac Disorders: Yes Cardiac Disorders: High Cholesterol, Hypertension Neurological History of Neurological Disord: Yes (CVA W/ R SIDED WEAKNESS) Neurological Disorders: Neuropathy, Stroke Genitourinary History of Genitourinary Disor: Yes (TRIGONITIS) Genitourinary Disorders: UTI-Chronic Gastrointestinal History of Gastrointestinal Di: No Musculoskeletal History of Musculoskeletal Dis: Yes (CHRONIC KNEE PAIN) Musculoskeletal Disorders: Arthritis Endocrine History of Endocrine Disorders: Yes (MORBID OBESITY) Endocrine Disorders: Diabetes, Insulin dep HEENT History of HEENT Disorders: No (prior cataract surgeries) Cancer History of Cancer: No Psychosocial History of Psychiatric Problem: Yes Behavioral Health Disorders: Depression Integumentary History of Skin or Integumenta: Yes (L ORBITAL CELLULITIS, 2018 CHEEK CELLULITIS) Skin/Integumentary Disorders: Recent Skin Changes Blood Transfusions History of Blood Disorders: No Family Medical History Significant Family History: No Pertinent Family Hx Family Medial History: Patient reports no known family medical history. Review of Systems-General Constitutional: chills, fever EENTM: No hearing loss, No blurred vision Respiratory: No cough; dyspnea on exertion Cardiovascular: No chest pain Gastrointestinal: No abdominal pain; constipation (Pt said she had some constipation last night but drank prune juice to help the constipation); No diarrhea, No dysphagia Genitourinary: No decreased output, No dysuria Musculoskeletal: No back pain, No neck pain Skin: change in color (Left leg erythema. Pt reports that erythema and swelling have decreased since monday (02/22). Pain is still persistent (12/25)), other (Left leg swelling) Physical Exam-General Problems Physical Exam Vital Signs Vital Signs - First Documented 02/23/21 00:02 Temp 38.4 Pulse 101 Resp 17 B/P (MAP) 109/66 (80) Pulse Ox 92 O2 Delivery Room Air Capillary Refill : Less Than 3 Seconds General Appearance: WD/WN, no apparent distress, obese HEENT: PERRL/EOMI; No scleral icterus (R), No scleral icterus (L) Neck: non-tender, full range of motion, supple, normal inspection Respiratory: chest non-tender, lungs clear, normal breath sounds, no respiratory distress, no accessory muscle use Cardiovascular: regular rate, rhythm, no murmur Peripheral Pulses: 2+ Radial Pulses (R), 2+ Radial Pulses (L) Gastrointestinal: normal bowel sounds, non tender Extremities: calf tenderness, inflammation, pedal edema, other (Legs edematous bilaterally. Left leg has erythema and swelling that encompasses the left leg. Erythema extends from inferior portion of patella to the ankle. Diminished sensation in left foot and left leg. Pt can actively lift both legs. left leg 4/5 strength when compared to right. Pain is in the left leg and radiates to the thigh upon palpation. Pt said she has not previously had thigh pain which is a new symptom for her. Pedal pulses are difficult to palpate with swelling.) Neurologic/Psychiatric: alert, normal mood/affect, oriented x 3 Skin: other (Erythema of left leg.) Lymphatic: no adenopathy (Cervical) Data Review Labs Laboratory Tests 02/28/21 15:33: Glucometer 184H 02/28/21 20:19: Glucometer 162H 03/01/21 06:04: Glucometer 174H 03/01/21 11:25: Glucometer 193H Assessment/Plan Assessment/Plan Admission Diagonsis Erythema and Swelling of Left leg Cellulitis CT scan of lower ectremity RONNIE CAO DO 03/01/21 1644: History of Present Illness History of Present Illness Time Seen by Provider: 15:53 History of Present Illness Surgery asked to consult regarding cellulitis of left leg. HPI per ED: 65-year-old female presents with left lower extremity redness. She reports that she has some swelling pain and redness in the area. Patient has a previous history of cellulitis. She reports she had some chills and felt fever brett throughout the night last night. She denies any nausea, vomiting, cough, shortness of breath. She does have bilateral lower extremity swelling and lymphedema history. When I spoke to pt she stated her leg is not worse, but not much better. She told the medicine doctor that there may have been a small cut on the leg before all this started. Pain is severe even with mild palpation. She is not very mobile. Allergies and Home Medications Allergies Uncoded Allergies: IV CONTRAST (Adverse Reaction, Mild, HIVES, 09/17/18) Patient Home Medication List Home Medication List Reviewed: Yes Acetaminophen (Tylenol Extra Strength) 500 Mg Tablet, 1,000 MG PO Q8H PRN for PAIN-MILD (1-4), (Reported) Entered as Reported by: DOYLE CARRILLO on 02/23/21 1035 Last Action: Reviewed Amitriptyline HCl (Amitriptyline HCl) 50 Mg Tablet, 50 MG PO HS, (Reported) Entered as Reported by: DOYLE CARRILLO on 02/23/21 103 Last Action: Continued Aspirin (Aspirin EC) 81 Mg Tablet.dr, 81 MG PO DAILY, (Reported) Entered as Reported by: NERIS PRIETO on 10/26/20850 Last Action: Continued Fluoxetine HCl (Fluoxetine HCl) 40 Mg Capsule, 40 MG PO BID, (Reported) Entered as Reported by: NERIS PRIETO on 10/26/20850 Last Action: Converted Gabapentin (Gabapentin) 600 Mg Tablet, 600 MG PO TID PRN for NERVE PAIN, (Reported) Entered as Reported by: MINESH CANALES on 09/17/181846 Last Action: Continued Ibuprofen (Ibuprofen) 800 Mg Tablet, 800 MG PO TID PRN for PAIN-MILD (1-4), (Reported) Entered as Reported by: STACIE BERNAL on 05/15/19 1015 Last Action: Reviewed Losartan Potassium (Losartan Potassium) 50 Mg Tablet, 50 MG PO DAILY, (Reported) Entered as Reported by: MINESH CANALES on 09/17/181846 Last Action: Reviewed Metformin HCl (Metformin HCl) 1,000 Mg Tablet, 1,000 MG PO BID, (Reported) Entered as Reported by: MINESH CANALES on 09/17/181846 Last Action: Reviewed Multivit-Min/Folic Acid/Biotin (Hair, Skin & Nails Caplet) 1 Each Tablet, 1 EACH PO DAILY, (Reported) Entered as Reported by: DOYLE CARRILLO on 02/23/21 103 Last Action: Reviewed Oxybutynin Chloride (Oxybutynin Chloride) 5 Mg Tablet, 5 MG PO TID PRN for BLADDER SPASMS, (Reported) Entered as Reported by: MINESH CANALES on 09/17/181846 Last Action: Reviewed Tramadol HCl (Tramadol HCl) 50 Mg Tablet, 50 MG PO TID PRN for PAIN-MODERATE (5- 7), (Reported) Entered as Reported by: NERIS PRIETO on 10/26/20850 Last Action: Reviewed Discontinued Medications Cefdinir (Cefdinir) 300 Mg Capsule, 300 MG PO BID Discontinued Reason: Duplicate Order Prescribed by: PORSHA ISAACS on 10/26/20 1139 Last Action: Discontinued Cephalexin (Cephalexin) 500 Mg Tablet, 500 MG PO TID Discontinued Reason: Duplicate Order Prescribed by: WEST ELLER on 12/24/20 1646 Last Action: Discontinued Liraglutide (Victoza 3-John) 0.6 Mg/0.1 Ml Pen.injctr, 1.8 MG SC DAILY, (Reported) Discontinued Reason: Duplicate Order Entered as Reported by: MINESH CANALES on 09/17/18 6737 Last Action: Discontinued Past Qyhbjjo-Cujwzv-Amhypi Hx Patient Social History Smoking Status: Former Smoker Alcohol Use?: No Surgeries History of Surgeries: Yes (cystoscopies) Surgeries: Appendectomy, Bladder Surgery, Section, Gallbladder, Tonsillectomy Respiratory History of Respiratory Disorde: Yes Respiratory Disorders: COPD Cardiovascular History of Cardiac Disorders: Yes Cardiac Disorders: High Cholesterol, Hypertension Neurological History of Neurological Disord: Yes Neurological Disorders: Neuropathy, Stroke Genitourinary History of Genitourinary Disor: Yes (urethral strictures) Gastrointestinal History of Gastrointestinal Di: Yes Gastrointestinal Disorders: Gall Bladder Disease Musculoskeletal History of Musculoskeletal Dis: Yes Musculoskeletal Disorders: Arthritis, Chronic Back Pain Endocrine History of Endocrine Disorders: Yes Endocrine Disorders: Diabetes, Insulin dep HEENT History of HEENT Disorders: Yes (decreasing vision with age and due to DM) Hearing Impairment: Denies Cancer History of Cancer: No Psychosocial History of Psychiatric Problem: No Family Medical History Significant Family History: Diabetes (denies mother or father had), Hypertension (denies mother or father had ) Family Medial History: Patient reports no known family medical history. Review of Systems-General Constitutional: chills, fever EENTM: No hearing loss, No blurred vision Respiratory: No cough; dyspnea on exertion Gastrointestinal: No abdominal pain; constipation (Pt said she had some constipation last night but drank prune juice to help the constipation); No diarrhea, No dysphagia Genitourinary: No decreased output, No dysuria Musculoskeletal: No back pain, No neck pain Skin: change in color (Left leg erythema. Pt reports that erythema and swelling have decreased since monday (02/22). Pain is still persistent (12/25)), other (Left leg swelling) Psychiatric/Neurological: Denies Anxiety, Denies Depressed; Pre-Existing Deficit, Weakness Physical Exam-General Problems Physical Exam General Appearance: WD/WN, no apparent distress, obese (morbidly) Eyes: Bilateral Eye PERRL, Bilateral Eye EOMI HEENT: pharynx normal; No scleral icterus (R), No scleral icterus (L) Neck: non-tender, supple Respiratory: chest non-tender, lungs clear, normal breath sounds, no respiratory distress, no accessory muscle use Cardiovascular: regular rate, rhythm, no murmur Gastrointestinal: normal bowel sounds, non tender, soft, no organomegaly Extremities: calf tenderness, inflammation, pedal edema, other (Legs edematous bilaterally. Left leg has erythema and swelling that encompasses the left leg. Erythema extends from inferior portion of patella to the ankle. Diminished sensation in left foot and left leg. Pt can actively lift both legs. left leg 4/5 strength when compared to right. Pain is in the left leg and radiates to the thigh upon palpation. Pt said she has not previously had thigh pain which is a new symptom for her. Pedal pulses are difficult to palpate with swelling.) Neurologic/Psychiatric: alert, normal mood/affect, oriented x 3 Skin: other (Erythema of left leg, looks like bruising in some areas, venous stasis changes) Lymphatic: no adenopathy (Cervical, axillary ) Data Review Radiology Date of Exam:02/24/21 US VENOUS LOWER EXT LT PROCEDURE: US left lower extremity venous. TECHNIQUE: Multiple real-time grayscale images were obtained over the left lower extremity in various projections. Additional duplex Doppler and color Doppler images were also obtained. INDICATION: Swollen red lower extremity. While there is no visualized left lower extremity venous thrombus, compressibility was limited at the mid and lower thigh as well as beyond and augmentation maneuvers could not be performed owing to intolerability. We can see color Doppler blood flow throughout the left lower activity arterial system and no demonstrated thrombus. Impression: Limited by swelling and pain, precluding compressibility and augmentation of the mid to lower venous structures however color Doppler blood flow is preserved and no thrombus or occlusive segment identified. Dictated by: Dictated on workstation # [id number] Dict: 02/24/21 0835 Trans: 02/24/211723 [facility] [id number] Interpreted by: DAYANA RODRIGUEZ Electronically signed by: DAYANA RODRIGUEZ 02/24/215 Assessment/Plan Assessment/Plan Assessment/Plan Cellulitis Left leg Chronic Venous stasis with hx of Lymphedema Morbid Obesity Hx of decreased mobility Pt has cellulitis of left leg; it does not appear worse (has not gone outside lines drawn 2 days ago). US doppler was done and did not specifically mention no abscess seen, but usually would mention if it was noticed. I didn't see any obvious abscess when I looked at the films. Nothing surgical can be done at this time, would recommend IV ABX, leg elevation and continued monitoring. Supervisory-Addendum Brief Verification & Attestation Participated in pt care: history, MDM, physical Personally performed: exam, history, MDM, supervision of care Care discussed with: Medical Student Procedures: n/a Verification and Attestation of Medical Student E/M Service A medical student performed and documented this service. I then reviewed and verified all information documented by the medical student and made modifications to such information, when appropriate. I personally performed a physical exam, medical decision making and then discussed any differences between the notes and made revisions as necessary to create one note. Ronnie Cao , 03/01/21 , 16:53 JUVENAL RIOS Mar 01, 2021 12:44 RONNIE CAO DO Mar 01, 2021 16:44
--- NOTE | 2021-03-01 12:58 | Progress Note - Hospitalist ---
KATIE ONEAL 03/01/21 1258: Subjective HPI/CC On Admission Date Seen by Provider: Mar 01, 2021 Time Seen by Provider: 08:23 Subjective/Events-last exam Today when I entered the room the patient was moving from the bedside cammode back into bed which was made more difficult do to pain from her LLE. She is in cheerful mood but does complain of pain when touching her left lower leg. The area of errythemia is large, but has not progressed beyond amin that where previously placed. Her skin is warm and turgid, particularly on the lower leg, and a small wound maybe developing at the distal end. Pt has no other complaints at this time. Review of Systems General: No Chills, No Night Sweats, No Fatigue; Appetite HEENT: No Head Aches, No Visual Changes, No Dysphasia, No Sore Throat Pulmonary: No Dyspnea, No Cough, No Pleuritic Chest Pain Cardiovascular: Edema; No: Chest Pain, Palpitations, Lt Headedness Gastrointestinal: No: Nausea, Vomiting, Abdominal Pain, Diarrhea, Constipation, Melena, Hematochezia Genitourinary: No Dysuria, No Frequency, No Incontinence, No Hematuria, No Retention Musculoskeletal: leg pain; No: neck pain, shoulder pain, arm pain, back pain, hand pain Neurological: No: Weakness, Numbness, Change in speech, Confusion Objective Exam Vital Signs Vital Signs Date Time Temp Pulse Resp B/P (MAP) Pulse Ox O2 Delivery O2 Flow Rate FiO2 03/01/21 08:00 36.0 71 16 141/68 (92) 95 Room Air Capillary Refill : Less Than 3 Seconds General Appearance: No Apparent Distress, WD/WN, Obese HEENT: PERRL/EOMI, Pharynx Normal Neck: Full Range of Motion, Non Tender, Supple Respiratory: Chest Non Tender, Lungs Clear, Normal Breath Sounds, No Accessory Muscle Use, No Respiratory Distress Cardiovascular: Regular Rate, Rhythm, No Edema, No Gallop, No Murmur, Normal Peripheral Pulses Gastrointestinal: Normal Bowel Sounds, No Organomegaly, No Pulsatile Mass, Non Tender, Soft Rectal: Deferred Back: No CVA Tenderness, No Vertebral Tenderness Extremity: Normal Capillary Refill, Normal Range of Motion, Inflammation (Errythema and swelling from distal LLE up to left inner inguinal region), Swelling Neurologic/Psychiatric: Alert, Oriented x3, No Motor/Sensory Deficits, Normal 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 Assessment/Plan Assessment and Plan Assess & Plan/Chief Complaint LLE cellulitis - on Ceftriaxone without marked improvement after 7 days Morbid obesity T2DM - poorly controlled HTN Plan - Advance to a more aggressive ABX regimen (+zosyn and vanco) Consult surgery for possible abscess formation of distal LLE Supportive care and pain control Jones cath BISI NEWMAN DO 03/02/21 0548: Subjective Subjective/Events-last exam Pt doing about the same Left leg is painful to walk on Rocephin for the seventh day so will broaden out with Zosyn and Vancomycin Her BMI is [address] Mariee and Wound Care Will monitor her closely Review of Systems Musculoskeletal: leg pain Objective Exam General Appearance: No Apparent Distress, WD/WN, Chronically ill, Obese Respiratory: Lungs Clear Cardiovascular: Regular Rate, Rhythm Extremity: Inflammation (Errythema and swelling from distal LLE up to left inn er inguinal region), Swelling Assessment/Plan Assessment and Plan Assess & Plan/Chief Complaint Assessment: Complicated cellulitis of the left leg Severe lymphedema chronic Morbid obesity Diabetes mellitus Hypertension Plan: DC Rocephin Vancomycin and Zosyn Dr. Mariee consult Supervisory-Addendum Brief Verification & Attestation Participated in pt care: history, MDM, physical Personally performed: exam, history, MDM, supervision of care Care discussed with: Medical Student Procedures: n/a Results interpretation: Verified all documentation Verification and Attestation of Medical Student E/M Service A medical student performed and documented this service in my presence. I reviewed and verified all information documented by the medical student and made modifications to such information, when appropriate. I personally performed the physical exam and medical decision making. Bisi Newman, Mar 02, 2021,05:47 KATIE ONEAL Mar 01, 2021 12:58 BISI NEWMAN DO Mar 02, 2021 05:48
[2021-03-01] MEDS: PIPERACILLIN/TAZOBACTAM (BULK) 4.5 GM in NS (IVPB) 100 ML IV SCH (17:30)
[2021-03-01] MEDS: AMITRIPTYLINE 50 MG (ELAVIL) TAB PO SCH (21:33)
[2021-03-01] MEDS: VANCOMYCIN 1500 MG/NS 500 ML IVPB IV SCH ×2 (22:02)
[2021-03-02] MEDS: PIPERACILLIN/TAZOBACTAM (BULK) 4.5 GM in NS (IVPB) 100 ML IV SCH ×3 (01:51→17:08)
[2021-03-02 04:00] VITALS: BP 147/91
[2021-03-02 05:40] LABS: BASOPHILS % (AUTO) 0 % (0-10); EOSINOPHILS # (AUTO) 0.2 10^3/uL (0.0-0.3); EOSINOPHILS % (AUTO) 4 % (0-10); HEMATOCRIT 33 % (35-52); HEMOGLOBIN 11.2 g/dL (11.5-16.0); LYMPHOCYTES # (AUTO) 1.5 10^3/uL (1.0-4.0); LYMPHOCYTES % (AUTO) 22 % (12-44); MEAN CORPUSCULAR HEMOGLOBIN 35 pg (25-34); MEAN CORPUSCULAR HGB CONC 34 g/dL (32-36); MEAN CORPUSCULAR VOLUME 104 fL (80-99); MEAN PLATELET VOLUME 8.9 fL (9.0-12.2); MONOCYTES # (AUTO) 0.4 10^3/uL (0.0-1.0); MONOCYTES % (AUTO) 6 % (0-12); NEUTROPHILS # (AUTO) 4.6 10^3/uL (1.8-7.8); NEUTROPHILS % (AUTO) 66 % (42-75); PLATELET COUNT 268 10^3/uL (130-400); WHITE BLOOD COUNT 6.9 10^3/uL (4.3-11.0)
[2021-03-02 05:50] LABS: ALBUMIN 2.9 GM/DL (3.2-4.5)
[2021-03-02 05:52] LABS: CALCIUM 8.1 MG/DL (8.5-10.1)
[2021-03-02 05:53] LABS: TOTAL PROTEIN 5.7 GM/DL (6.4-8.2)
[2021-03-02 05:55] LABS: BILIRUBIN,TOTAL 0.4 MG/DL (0.1-1.0)
[2021-03-02 05:56] LABS: CREATININE SERUM 0.89 MG/DL (0.60-1.30)
[2021-03-02] MEDS: inSUlin ASPART (NovoLOG) 1 UNIT/0.01 ML (CHARGE PER UNIT) SC SCH ×4 (06:02→21:00)
--- NOTE | 2021-03-02 07:14 | Progress Note - Surgery ---
JUVENAL RIOS 03/02/21 0714: Subjective Date Seen by a Provider: Mar 02, 2021 Time Seen by a Provider: 06:51 Subjective/Events-last exam Pt laying in the bed when I visited. Cellulitis is still present with erythema. Erythema does not appear to have worsened. Has remained within the boundaries of the amin made 3 days ago. Pt still has complaint of 9/10 pain that radiates to the thigh. Review of Systems General: No Chills, No Night Sweats; Fatigue HEENT: No Head Aches, No Visual Changes Pulmonary: No Dyspnea, No Cough Cardiovascular: No: Chest Pain, Palpitations Gastrointestinal: No: Nausea, Vomiting, Abdominal Pain, Diarrhea Genitourinary: No Dysuria, No Frequency Musculoskeletal: leg pain (Left leg and part of left thigh still painful); No: foot pain Neurological: Weakness Objective Exam Vital Signs Date Time Temp Pulse Resp B/P (MAP) Pulse Ox O2 Delivery O2 Flow Rate FiO2 03/02/21 04:00 36.3 81 18 147/91 (109) 95 Room Air 03/01/21 23:49 36.4 73 18 122/76 (91) 94 Room Air 03/01/21 20:21 36.7 74 18 110/67 (81) 94 Room Air 03/01/21 20:00 95 Room Air 03/01/21 15:30 37.2 71 20 112/68 (83) 94 Room Air 03/01/21 12:00 36.1 70 21 107/56 (73) 96 Room Air 03/01/21 08:00 94 Room Air 03/01/21 08:00 36.0 71 16 141/68 (92) 95 Room Air I & O 03/02/21 07:00 Intake Total 2590 ml Output Total 2 ml Balance 2588 ml Capillary Refill : Less Than 3 Seconds General Appearance: No Apparent Distress, WD/WN, Chronically ill, Obese HEENT: PERRL/EOMI, Pharynx Normal Neck: Full Range of Motion, Non Tender, Supple Respiratory: Chest Non Tender, Lungs Clear, Normal Breath Sounds, No Accessory Muscle Use, No Respiratory Distress Cardiovascular: Regular Rate, Rhythm, No Murmur Peripheral Pulses: 2+ Radial Pulses (R), 2+ Radial Pulses (L) Gastrointestinal: normal bowel sounds, non tender, soft, no organomegaly Extremity: Inflammation (Errythema and swelling from distal LLE up to left inner inguinal region), Pedal Edema, Swelling, Other (skin appears more waxy at distal LLE. Pedal pulses also difficult to palpate.) Neurologic/Psychiatric: Alert, Oriented x3, No Motor/Sensory Deficits, Normal Mood/Affect, emerging technologies director II-XII Norm as Tested Skin: Normal Color, Warm/Dry Lymphatic: No Adenopathy (cervical or axillary) Results Lab Laboratory Tests 03/01/21 11:25: Glucometer 193H 03/01/21 16:13: Glucometer 159H 03/01/21 21:22: Glucometer 198H 03/02/21 05:15: White Blood Count 6.9, Red Blood Count 3.20L, Hemoglobin 11.2L, Hematocrit 33L, Mean Corpuscular Volume 104H, Mean Corpuscular Hemoglobin 35H, Mean Corpuscular Hemoglobin Concent 34, Red Cell Distribution Width 12.5, Platelet Count 268, Mean Platelet Volume 8.9L, Immature Granulocyte % (Auto) 2, Neutrophils (%) (Auto) 66, Lymphocytes (%) (Auto) 22, Monocytes (%) (Auto) 6, Eosinophils (%) (Auto) 4, Basophils (%) (Auto) 0, Neutrophils # (Auto) 4.6, Lymphocytes # (Auto) 1.5, Monocytes # (Auto) 0.4, Eosinophils # (Auto) 0.2, Basophils # (Auto) 0.0, Immature Granulocyte # (Auto) 0.1, Sodium Level 137, Potassium Level 4.0, Chloride Level 105, Carbon Dioxide Level 21, Anion Gap 11, Blood Urea Nitrogen 10, Creatinine 0.89, Estimat Glomerular Filtration Rate 64, BUN/Creatinine Ratio 11, Glucose Level 172H, Calcium Level 8.1L, Corrected Calcium 9.0, Total Bilirubin 0.4, Aspartate Amino Transf (AST/SGOT) 31, Alanine Aminotransferase (ALT/SGPT) 26, Alkaline Phosphatase 60, Total Protein 5.7L, Albumin 2.9L 03/02/21 05:57: Glucometer 168H Assessment/Plan Assessment/Plan Assessment/Plan Cellulitis Left leg Chronic Venous stasis with hx of Lymphedema Morbid Obesity Hx of decreased mobility Pt has cellulitis of left leg. Does not seem worse. has not gone outside lines drawn 2 days ago. US doppler was done (02/24) and did not specifically mention any abscess seen. Nothing surgical can be done at this time. Pt currently on v ancomycin and piperacillin/tazobactam. Continue leg elevation and monitoring. JOE MARIEE DO 03/02/21 1035: Subjective Time Seen by a Provider: 08:51 Subjective/Events-last exam Pt seen and examined; no changes, still has left leg pain. Review of Systems General: No Chills, No Night Sweats; Fatigue Pulmonary: No Dyspnea, No Cough Cardiovascular: No: Chest Pain, Palpitations Gastrointestinal: No: Nausea, Vomiting, Abdominal Pain Musculoskeletal: leg pain (Left leg and part of left thigh still painful) Neurological: Weakness Objective Exam General Appearance: No Apparent Distress, Chronically ill, Obese Respiratory: Lungs Clear, Normal Breath Sounds, No Accessory Muscle Use, No Respiratory Distress Cardiovascular: Regular Rate, Rhythm, No Murmur Gastrointestinal: normal bowel sounds, non tender, soft, no organomegaly Extremity: Inflammation (Errythema and swelling from distal LLE up to left inner inguinal region), Pedal Edema, Swelling, Other (skin appears more waxy at distal LLE. Pedal pulses also difficult to palpate. ?? hemorrhagic bruising sl ighly more) Neurologic/Psychiatric: Alert, Oriented x3 Assessment/Plan Assessment/Plan Assessment/Plan Cellulitis Left leg Chronic Venous stasis with hx of Lymphedema Morbid Obesity Hx of decreased mobility Pt has cellulitis of left leg. Does not seem worse and has not gone outside lines drawn 2 days ago. US doppler was done (02/24) and did not specifically mention any abscess seen. Nothing surgical can be done at this time. Pt currently on vancomycin and piperacillin/tazobactam. Continue leg elevation and monitoring. Supervisory-Addendum Brief Verification & Attestation Participated in pt care: history, MDM, physical Personally performed: exam, history, MDM, supervision of care Care discussed with: Medical Student Procedures: n/a Verification and Attestation of Medical Student E/M Service A medical student performed and documented this service. I then reviewed and verified all information documented by the medical student and made modifications to such information, when appropriate. I personally performed a physical exam, medical decision making and then discussed any differences between the notes and made revisions as necessary to create one note. Joe Mariee , 03/02/21 , 10:35 JUVENAL RIOS Mar 02, 2021 07:14 JOE MARIEE DO Mar 02, 2021 10:35
[2021-03-02 07:45] VITALS: BP 137/67
[2021-03-02] MEDS: FLUoxetine HCL 20 MG (PROzac) CAP PO SCH ×2 (08:39→20:31)
[2021-03-02] MEDS: ASPIRIN E.C. 81 MG (ECOTRIN) TAB PO SCH (08:39)
[2021-03-02] MEDS: ENOXAPARIN 40 MG/0.4 ML (LOVENOX) SYR SQ SCH ×2 (08:39→20:31)
[2021-03-02] MEDS ORDERED: TROUGH ORDER-PHARMACY XX ONE (10:00)
[2021-03-02] MEDS: HYDROcodone/APAP 5 MG/325 MG (LORTAB) TAB PO PRN ×2 (10:02→20:31)
--- NOTE | 2021-03-02 11:23 | Physical Therapy Progress Note ---
Therapy Progress Note Patient declined PT stating, "I've been all over the place in here and my leg is really hurting." Patient did not rate left LE pain. Left LE is elevated. PT will attempt tomorrow a.m. 1 ref ([id number]) RENATA RYAN PT Mar 02, 2021 11:23
[2021-03-02] MEDS: VANCOMYCIN 1500 MG/NS 500 ML IVPB IV SCH ×4 (11:24→23:51)
--- NOTE | 2021-03-02 12:43 | Progress Note - Hospitalist ---
KATIE ONEAL 03/02/21 1243: Subjective HPI/CC On Admission Date Seen by Provider: Mar 02, 2021 Time Seen by Provider: 08:35 Subjective/Events-last exam Today when I visited the pt she was resting comfortably in bed and states that her leg is feeling better today and states "I can wiggle my toes now". She continues to eat & drink without issue and urinary and bowel habits are unchanged. The erythema on her leg is reduced but swelling and pain remains as well as development of subcutaneous hematoma on her distal LLE She has no other concerns at this time and is optimistic regarding her impro vement. Review of Systems General: No Chills, No Night Sweats, No Fatigue; Appetite HEENT: No Head Aches, No Visual Changes, No Dysphasia, No Sore Throat Pulmonary: No Dyspnea, No Cough, No Pleuritic Chest Pain Cardiovascular: Edema; No: Chest Pain, Palpitations, Orthopnea, Lt Headedness Gastrointestinal: No: Nausea, Vomiting, Abdominal Pain, Diarrhea, Constipation, Melena, Hematochezia Genitourinary: No Dysuria, No Frequency, No Incontinence, No Hematuria Musculoskeletal: leg pain; No: neck pain, shoulder pain, arm pain, back pain, hand pain Neurological: No: Weakness, Numbness, Change in speech, Seizures Objective Exam Vital Signs Vital Signs Date Time Temp Pulse Resp B/P (MAP) Pulse Ox O2 Delivery O2 Flow Rate FiO2 03/02/21 08:00 94 Room Air 03/02/21 07:45 37.0 70 16 137/67 (90) Capillary Refill : Less Than 3 Seconds General Appearance: No Apparent Distress, WD/WN, Obese HEENT: PERRL/EOMI, Pharynx Normal Neck: Full Range of Motion, Non Tender, Supple Respiratory: Chest Non Tender, Lungs Clear, Normal Breath Sounds, No Accessory Muscle Use, No Respiratory Distress Cardiovascular: Regular Rate, Rhythm, No Gallop, No Murmur, Normal Peripheral Pulses Gastrointestinal: Normal Bowel Sounds, No Organomegaly, No Pulsatile Mass, Non Tender, Soft Rectal: Deferred Extremity: Normal Capillary Refill, Normal Range of Motion, Inflammation (LLE warm with reduced erythema - left more swollen than right - subcutanious hematoma distal LLE), Swelling Neurologic/Psychiatric: Alert, Oriented x3, No Motor/Sensory Deficits, Normal Mood/Affect, law clerk II-XII Norm as Tested Reflexes: 2+ Bicep (R), 2+ Bicep (L) Skin: Normal Color, Warm/Dry, Erythema (LLE) Lymphatic: No Adenopathy (axillary and cervical) Results/Procedures Lab Laboratory Tests 03/02/21 05:15 Patient resulted labs reviewed. Assessment/Plan Assessment and Plan Assess & Plan/Chief Complaint LLE cellulitis - improving with zosyn and vanc IV Morbid obesity T2DM - poorly controlled HTN Plan - Continue ABX regimen (+zosyn and vanc) Monitor skin changes and distal sub-q hematoma Supportive care and pain control BISI NEWMAN DO 03/03/21 0611: Subjective Subjective/Events-last exam Pt much improved Left leg less edema and erythema Blood blister on the bottom may rupture Will monitor closely Review of Systems General: Fatigue, Malaise Musculoskeletal: leg pain Objective Exam General Appearance: No Apparent Distress, WD/WN, Chronically ill, Obese Extremity: Inflammation (LLE warm with reduced erythema - left more swollen than right - subcutanious hematoma distal LLE), Swelling Assessment/Plan Assessment and Plan Assess & Plan/Chief Complaint Continue broad-spectrum antibiotics Supervisory-Addendum Brief Verification & Attestation Participated in pt care: history, MDM, physical Personally performed: exam, history, MDM, supervision of care Care discussed with: Medical Student Procedures: n/a Results interpretation: Verified all documentation Verification and Attestation of Medical Student E/M Service A medical student performed and documented this service in my presence. I reviewed and verified all information documented by the medical student and made modifications to such information, when appropriate. I personally performed the physical exam and medical decision making. Bisi Newman Mar 03, 2021,06:09 KATIE ONEAL Mar 02, 2021 12:43 BISI NEWMAN DO Mar 03, 2021 06:11
[2021-03-02 15:30] VITALS: BP 137/76
[2021-03-02] MEDS: AMITRIPTYLINE 50 MG (ELAVIL) TAB PO SCH (20:31)
[2021-03-03 00:19] VITALS: BP 116/73
[2021-03-03] MEDS: PIPERACILLIN/TAZOBACTAM (BULK) 4.5 GM in NS (IVPB) 100 ML IV SCH ×3 (00:57→16:18)
[2021-03-03] MEDS: inSUlin ASPART (NovoLOG) 1 UNIT/0.01 ML (CHARGE PER UNIT) SC SCH ×4 (05:59→21:54)
[2021-03-03 06:13] LABS: BASOPHILS % (AUTO) 0 % (0-10); EOSINOPHILS # (AUTO) 0.2 10^3/uL (0.0-0.3); EOSINOPHILS % (AUTO) 3 % (0-10); HEMATOCRIT 36 % (35-52); HEMOGLOBIN 12.2 g/dL (11.5-16.0); LYMPHOCYTES # (AUTO) 1.3 10^3/uL (1.0-4.0); LYMPHOCYTES % (AUTO) 25 % (12-44); MEAN CORPUSCULAR HEMOGLOBIN 36 pg (25-34); MEAN CORPUSCULAR HGB CONC 34 g/dL (32-36); MEAN CORPUSCULAR VOLUME 107 fL (80-99); MEAN PLATELET VOLUME 8.7 fL (9.0-12.2); MONOCYTES # (AUTO) 0.4 10^3/uL (0.0-1.0); MONOCYTES % (AUTO) 7 % (0-12); NEUTROPHILS # (AUTO) 3.4 10^3/uL (1.8-7.8); NEUTROPHILS % (AUTO) 63 % (42-75); PLATELET COUNT 276 10^3/uL (130-400); WHITE BLOOD COUNT 5.3 10^3/uL (4.3-11.0)
[2021-03-03 06:26] LABS: ALBUMIN 3.2 GM/DL (3.2-4.5)
[2021-03-03 06:27] LABS: POTASSIUM 4.3 MMOL/L (3.6-5.0)
[2021-03-03 06:28] LABS: CALCIUM 8.3 MG/DL (8.5-10.1)
[2021-03-03 06:29] LABS: TOTAL PROTEIN 6.2 GM/DL (6.4-8.2)
[2021-03-03 06:31] LABS: BILIRUBIN,TOTAL 0.5 MG/DL (0.1-1.0)
[2021-03-03 06:32] LABS: CREATININE SERUM 1.04 MG/DL (0.60-1.30)
--- NOTE | 2021-03-03 07:49 | Progress Note - Surgery ---
BLANCAJUVENAL 03/03/21 0748: Subjective Date Seen by a Provider: Mar 03, 2021 Time Seen by a Provider: 07:27 Subjective/Events-last exam Pt laying in the bed when I visited. Cellulitis is still present with erythema. Left inguinal region seems to be more erythematous than yesterday. Has remained within the boundaries of the amin made 3 days ago. Pt still has complaint of 9/10 pain that radiates to the thigh. Review of Systems General: No Chills, No Night Sweats; Fatigue (Pt said she feels a little tired but much improved than previously) HEENT: No Head Aches, No Visual Changes Pulmonary: No Dyspnea, No Cough Cardiovascular: No: Chest Pain, Palpitations Gastrointestinal: No: Nausea, Vomiting, Abdominal Pain, Diarrhea Genitourinary: No Frequency Musculoskeletal: leg pain (Left leg and thigh pain at 9/10) Neurological: Weakness (Pt still has some weakness in left leg); No: Numbness, Change in speech, Confusion Objective Exam Vital Signs Date Time Temp Pulse Resp B/P (MAP) Pulse Ox O2 Delivery O2 Flow Rate FiO2 03/03/21 00:19 37.0 73 20 116/73 (87) 92 Room Air 03/02/21 20:00 96 Room Air 03/02/21 15:30 37.2 73 20 137/76 (96) 95 Room Air 03/02/21 08:00 94 Room Air I & O 03/03/21 07:00 Intake Total 1763 ml Output Total 3150 ml Balance -1387 ml Capillary Refill : Less Than 3 Seconds General Appearance: No Apparent Distress, WD/WN, Chronically ill, Obese HEENT: PERRL/EOMI Neck: Full Range of Motion, Normal Inspection, Non Tender, Supple Respiratory: Chest Non Tender, Lungs Clear, Normal Breath Sounds, No Accessory Muscle Use, No Respiratory Distress Cardiovascular: Regular Rate, Rhythm, No Murmur Peripheral Pulses: 2+ Radial Pulses (R), 2+ Radial Pulses (L) Gastrointestinal: normal bowel sounds, non tender, soft, no organomegaly Extremity: Inflammation (skin appears more waxy at distal LLE. Pedal pulses also difficult to palpate. more hemorrhagic bruising and blistering in distal LLE. It appears that the left inguinal region also has a deeper erythematous color compared to yesterday.), Swelling Neurologic/Psychiatric: Alert, Oriented x3, Normal Mood/Affect Skin: Normal Color, Warm/Dry, Erythema (LLE) Lymphatic: No Adenopathy (axillary and cervical) Results Lab Laboratory Tests 03/02/21 09:55: Vancomycin Level Trough 18.1 03/02/21 10:36: Glucometer 186H 03/02/21 15:20: Glucometer 172H 03/02/21 21:25: Glucometer 163H 03/03/21 05:11: Glucometer 157H 03/03/21 06:01: White Blood Count 5.3, Red Blood Count 3.41L, Hemoglobin 12.2, Hematocrit 36, Mean Corpuscular Volume 107H, Mean Corpuscular Hemoglobin 36H, Mean Corpuscular Hemoglobin Concent 34, Red Cell Distribution Width 12.7, Platelet Count 276, Mean Platelet Volume 8.7L, Immature Granulocyte % (Auto) 2, Neutrophils (%) (Auto) 63, Lymphocytes (%) (Auto) 25, Monocytes (%) (Auto) 7, Eosinophils (%) (Auto) 3, Basophils (%) (Auto) 0, Neutrophils # (Auto) 3.4, Lymphocytes # (Auto) 1.3, Monocytes # (Auto) 0.4, Eosinophils # (Auto) 0.2, Basophils # (Auto) 0.0, Immature Granulocyte # (Auto) 0.1, Sodium Level 138, Potassium Level 4.3, Chloride Level 103, Carbon Dioxide Level 25, Anion Gap 10, Blood Urea Nitrogen 10, Creatinine 1.04, Estimat Glomerular Filtration Rate 53, BUN/Creatinine Ratio 10, Glucose Level 176H, Calcium Level 8.3L, Corrected Calcium 8.9, Total Yonatan irubin 0.5, Aspartate Amino Transf (AST/SGOT) 31, Alanine Aminotransferase (ALT/SGPT) 28, Alkaline Phosphatase 56, Total Protein 6.2L, Albumin 3.2 Assessment/Plan Assessment/Plan Assessment/Plan Cellulitis Left leg Chronic Venous stasis with hx of Lymphedema Morbid Obesity Hx of decreased mobility Pt has cellulitis of left leg. Does not seem worse and has not gone outside lines drawn 2 days ago. US doppler was done (02/24) and did not specifically mention any abscess seen. Nothing surgical can be done at this time. Pt currently on vancomycin and piperacillin/tazobactam. Continue leg elevation and monitoring. RONNIE MARIEE DO 03/03/21 1452: Subjective Time Seen by a Provider: 13:13 Subjective/Events-last exam Pt seen and examined, states she still has severe leg pain. Had eaten all her lunch Review of Systems General: No Chills, No Night Sweats; Fatigue (Pt said she feels a little tired but much improved than previously) Pulmonary: No Dyspnea, No Cough Cardiovascular: No: Chest Pain, Palpitations Gastrointestinal: No: Nausea, Vomiting, Abdominal Pain Musculoskeletal: leg pain (Left leg and thigh pain at /10) Objective Exam General Appearance: No Apparent Distress, Chronically ill, Obese Respiratory: Lungs Clear, Normal Breath Sounds, No Accessory Muscle Use, No Respiratory Distress Cardiovascular: Regular Rate, Rhythm, No Murmur Gastrointestinal: non tender, soft, no organomegaly Extremity: Inflammation (skin appears more waxy at distal LLE. Pedal pulses also difficult to palpate. more hemorrhagic bruising and blistering in distal LLE. It appears that the left inguinal region also has a deeper erythematous color compared to yesterday.), Swelling (now appears to have a blister over the hemorrhagic area) Assessment/Plan Assessment/Plan Assessment/Plan Cellulitis Left leg Chronic Venous stasis with hx of Lymphedema Morbid Obesity Hx of decreased mobility Pt has cellulitis of left leg. Does not seem worse and has not gone outside lines drawn 2 days ago. US doppler was done (02/24) and did not specifically mention any abscess seen. Still nothing surgical can be done at this time. Pt currently on vancomycin and piperacillin/tazobactam. Continue leg elevation and monitoring. Supervisory-Addendum Brief Verification & Attestation Participated in pt care: history, MDM, physical Personally performed: exam, history, MDM, supervision of care Care discussed with: Medical Student Procedures: n/a Verification and Attestation of Medical Student E/M Service A medical student performed and documented this service. I then reviewed and verified all information documented by the medical student and made modifications to such information, when appropriate. I personally performed a physical exam, medical decision making and then discussed any differences between the notes and made revisions as necessary to create one note. Ronnie Mariee , 03/03/21 , 15:08 JUVENAL RIOS Mar 03, 2021 07:48 RONNIE MARIEE DO Mar 03, 2021 14:52
[2021-03-03 08:00] VITALS: BP 125/77
[2021-03-03] MEDS: ENOXAPARIN 40 MG/0.4 ML (LOVENOX) SYR SQ SCH ×2 (09:26→21:50)
[2021-03-03] MEDS: ASPIRIN E.C. 81 MG (ECOTRIN) TAB PO SCH (09:26)
[2021-03-03] MEDS: FLUoxetine HCL 20 MG (PROzac) CAP PO SCH ×2 (09:26→21:50)
[2021-03-03] MEDS: HYDROcodone/APAP 5 MG/325 MG (LORTAB) TAB PO PRN ×3 (09:40→21:52)
[2021-03-03] MEDS ORDERED: TROUGH ORDER-PHARMACY XX ONE (10:00)
[2021-03-03] MEDS: VANCOMYCIN 1500 MG/NS 500 ML IVPB IV SCH ×2 (11:08)
--- NOTE | 2021-03-03 12:21 | Progress Note - Hospitalist ---
KATIE ONEAL 03/03/21 1221: Subjective HPI/CC On Admission Date Seen by Provider: Mar 03, 2021 Time Seen by Provider: 08:34 Subjective/Events-last exam Today when I visited the Pt she was using the commode. She continues to report pain from her LLE, made worse with movement or contact. Pt feels that overall her cellulitis seems appears to be improving gradually and is appreciative of the Abx and care she is receiving. There is some increased errythema near the left inguinal area which the pt claims is a result of recent utlra sound to the area. Pt has no other pain or concerns at this time. Review of Systems General: No Chills, No Night Sweats, No Fatigue, No Malaise; Appetite HEENT: No Head Aches, No Visual Changes, No Dysphasia, No Sore Throat Pulmonary: No Dyspnea, No Cough, No Pleuritic Chest Pain Cardiovascular: Edema; No: Chest Pain, Palpitations, Lt Headedness Gastrointestinal: No: Nausea, Vomiting, Abdominal Pain, Diarrhea, Constipation, Melena, Hematochezia Genitourinary: No Dysuria, No Frequency, No Incontinence Musculoskeletal: leg pain; No: neck pain, shoulder pain, arm pain, back pain, hand pain, foot pain Neurological: No: Weakness, Numbness, Change in speech, Confusion Objective Exam Vital Signs Vital Signs Date Time Temp Pulse Resp B/P (MAP) Pulse Ox O2 Delivery O2 Flow Rate FiO2 03/03/21 08:00 36.1 71 21 125/77 (93) 96 Room Air Capillary Refill : Less Than 3 Seconds General Appearance: No Apparent Distress, WD/WN, Obese HEENT: PERRL/EOMI, Pharynx Normal Neck: Full Range of Motion, Non Tender, Supple Respiratory: Chest Non Tender, Lungs Clear, Normal Breath Sounds, No Accessory Muscle Use, No Respiratory Distress Cardiovascular: Regular Rate, Rhythm, No Gallop, No Murmur, Normal Peripheral Pulses Gastrointestinal: Normal Bowel Sounds, No Organomegaly, No Pulsatile Mass, Non Tender Rectal: Deferred Back: No CVA Tenderness, No Vertebral Tenderness Extremity: Normal Capillary Refill, Normal Range of Motion, Inflammation, Swelling Neurologic/Psychiatric: Alert, Oriented x3, No Motor/Sensory Deficits, Normal Mood/Affect, barkeeper II-XII Norm as Tested ( - gradual improvement of the errythema - sub-q hematoma on LLE) Skin: Normal Color, Warm/Dry, Erythema ( - increased near groin - pt states this is due to contact during recent ultra sound of the area) Lymphatic: No Adenopathy (Cervical and axillary) Results/Procedures Lab Laboratory Tests 03/03/21 06:01 Patient resulted labs reviewed. Assessment/Plan Assessment and Plan Assess & Plan/Chief Complaint LLE cellulitis - improving with zosyn and vanc IV Morbid obesity T2DM - poorly controlled HTN Plan - Continue ABX regimen (+zosyn and vanc) Monitor skin changes and distal sub-q hematoma Supportive care and pain control BISI NEWMAN DO 03/04/21 0539: Subjective Subjective/Events-last exam Pt doing well Let leg much improved Predict the blister in the lower part of the leg will open up Appreciate wound care Review of Systems General: Fatigue Musculoskeletal: leg pain Objective Exam General Appearance: No Apparent Distress, WD/WN, Chronically ill, Obese Respiratory: Lungs Clear, Normal Breath Sounds Cardiovascular: Regular Rate, Rhythm Neurologic/Psychiatric: Alert, Oriented x3 Skin: Erythema ( - increased near groin - pt states this is due to contact during recent ultra sound of the area) Assessment/Plan Assessment and Plan Assess & Plan/Chief Complaint Continue broad-spectrum antibiotics Supervisory-Addendum Brief Verification & Attestation Participated in pt care: history, MDM, physical Personally performed: exam, history, MDM, supervision of care Care discussed with: Medical Student Procedures: n/a Results interpretation: Verified all documentation Verification and Attestation of Medical Student E/M Service A medical student performed and documented this service in my presence. I reviewed and verified all information documented by the medical student and made modifications to such information, when appropriate. I personally performed the physical exam and medical decision making. Bisi Newman Mar 04, 2021,05:37 KATIE ONEAL Mar 03, 2021 12:21 BISI NEWMAN DO Mar 04, 2021 05:39
--- NOTE | 2021-03-03 14:31 | Physical Therapy Daily Note ---
PT Daily Note-Current Subjective Pt sitting in recliner upon arrival. Pt agrees to PT for transfer to [facility] then bed. Pain Location: No Pain Reported Mental Status Patient Orientation: Person, Place, Situation Attachments: IV Transfers SCALE: Activities may be completed with or without assistive devices. 9-Pibvihruit-kqzzcbj completes the activity by him/herself with no assistance from a helper. 5-Set-up or Clean-up Assistance-helper sets up or cleans up; patient completes activity. [place] assists only prior to or following the activity. 4-Supervision or Touching Assistance-helper provides verbal cues and/or touching/steadying and/or contact guard assistance as patient completes activity. Assistance may be provided throughout the activity or intermittently. 3-Partial/Moderate Assistance-helper does LESS THAN HALF the effort. [place] lifts, holds or supports trunk or limbs, but provides less than half the effort. 2-Substantial/Maximal Assistance-helper does MORE THAN HALF the effort. [place] lifts or holds trunk or limbs and provides more than half the effort. 8-Watoggrmm-ztfkry does ALL the effort. Patient does none of the effort to complete the activity. Or, the assistance of 2 or more helpers is required for the patient to complete the activity. If activity was not attempted, code reason: 7-Patient Refused. 9-Not Applicable-not attempted and the patient did not perform the activity before the current illness, exacerbation or injury. 10-Not Attempted due to Environmental Limitations-(lack of equipment, weather restraints, etc.). 88-Not Attempted due to Medical Conditions or Safety Concerns. Sit to Stand (QC): 3 Weight Bearing Full Weight Bearing Full Weight Bearing Gait Training Does the Patient Walk?: Yes Distance: 5' Gait Persons Needed: 1 Gait Assistive Device: FWW Treatments TF from recliner to [facility] via SPT. [employer] assists for pericare. Pt amb. from [facility] to E[facility]. Pt transfers to Supine in bed with [employer]'s assistance to lift legs into bed. Pt repositioned to comfort. All needs met, call light in hand. Assessment Current Status: Fair Progress Pt fatigues easily & limited participation in tx. PT Mcc Goals Mcc Goals PT Irrigation Equipment Installer Goals Time Frame: Mar 13, 2021 Roll Left & Right (QC): 3 Sit to Lying (QC): 3 Lying-Sitting on Side/Bed(QC): 3 Sit to Stand (QC): 3 Chair/Scj-zc-Rtirj Xfer(QC): 3 Toilet Transfer (QC): 3 Car Transfer (QC): 3 Does the Patient Walk: Yes Walk 10 feet (QC): 3 Walk 50ft with 2 Turns (QC): 3 Walk 150 ft (QC): 3 Walking 10ft on Uneven Surface: 3 1 Step (curb) (QC): 3 4 Steps (QC): 3 12 Steps (QC): 3 Picking up an Object (QC): 3 Wheel 50 feet with 2 turns (QC: 3 Wheel 150 feet: 3 PT Plan Problem List Problem List: Activity Tolerance, Functional Strength, Safety Treatment/Plan Treatment Plan: Continue Plan of Care Treatment Plan: Bed Mobility, Education, Functional Activity Ezra, Functional Strength, Gait, Safety, Therapeutic Exercise, Transfers Treatment Duration: Mar 13, 2021 Frequency: 6 times per week Estimated Hrs Per Day: .25 hour per day Patient and/or Family Agrees t: Yes Safety Risks/Education Patient Education: Transfer Techniques, Correct Positioning Teaching Recipient: Patient Teaching Methods: Discussion Response to Teaching: Verbalize Understanding Time/GCodes Time In: 1355 Time Out: 1410 Total Billed Treatment Time: 15 Total Billed Treatment 1, FA (15m) GAVIN BURCIAGA PTA Mar 03, 2021 14:31
[2021-03-03 16:14] VITALS: BP 137/70
--- NOTE | 2021-03-03 18:15 | Wound Care Assessment ---
Wound Care Assessment Date Seen by Provider: Mar 03, 2021 Time Seen by Provider: 18:10 Chief Complaint L. lower extremity cellulitis with associated large bullae HPI This pleasant 65 year old lady was admitted to the hospital with cellulitis and sepsis. She states that she began her course with a small blister on her left lower leg which progressed to a large cellulitis encompassing all of her calf and extending to the medial thigh as well. It has been marked by staff and her current area of erythema does not seem to extend further than marking. She has massive associated edema. She is currently appropriately covered with broad spectrum antibiotics (Vancomycin and Zosyn). Her wound healing will be complicated by her obesity, edema, and diabetes. Her latest FSBS's have been 140-170's. She did have a venous doppler which was negative for DVT. Surgery was consulted. No surgical intervention felt necessary at this time. She does have a golf ball sized area of fluctuance anterior ankle that appears to be filled with clear fluid. I'm surprised that this area has not yet drained spontaneously but the patient has been able to protect it thusfar. There is no obvious open wound or weeping noted despite her significant edema at this time. Past Medical History: Admits Diabetes Type II Smoking Status: Former Smoker Review of Systems General: Other (obesity) Exam Vital Signs Date Time Temp Pulse Resp B/P (MAP) Pulse Ox O2 Delivery O2 Flow Rate FiO2 03/03/21 16:14 36.5 63 20 137/70 (92) 97 Room Air Capillary Refill : Less Than 3 Seconds General Appearance: WD/WN, no apparent distress, obese HEENT: PERRL/EOMI Neck: full range of motion Cardiovascular: other (3+ edema) Respiratory: no respiratory distress, no accessory muscle use Extremities: normal range of motion Neurologic/Psychiatric: alert, normal mood/affect, oriented x 3 Skin: warm/dry, ecchymosis (anterior ankle) Skin Problem Location: lower extremities (left) Skin Character: bullous (large bullae (golfball sized) to anterior left ankle), erythema (significant erythema of entire left calf extending to medial thigh), swelling (massive edema 3+ to RLE mid-thigh), tenderness, warm Results Laboratory Tests 03/02/21 21:25: Glucometer 163H 03/03/21 05:11: Glucometer 157H 03/03/21 06:01: White Blood Count 5.3, Red Blood Count 3.41L, Hemoglobin 12.2, Hematocrit 36, Mean Corpuscular Volume 107H, Mean Corpuscular Hemoglobin 36H, Mean Corpuscular Hemoglobin Concent 34, Red Cell Distribution Width 12.7, Platelet Count 276, Mean Platelet Volume 8.7L, Immature Granulocyte % (Auto) 2, Neutrophils (%) (Auto) 63, Lymphocytes (%) (Auto) 25, Monocytes (%) (Auto) 7, Eosinophils (%) (Auto) 3, Basophils (%) (Auto) 0, Neutrophils # (Auto) 3.4, Lymphocytes # (Auto) 1.3, Monocytes # (Auto) 0.4, Eosinophils # (Auto) 0.2, Basophils # (Auto) 0.0, Immature Granulocyte # (Auto) 0.1, Sodium Level 138, Potassium Level 4.3, Chloride Level 103, Carbon Dioxide Level 25, Anion Gap 10, Blood Urea Nitrogen 10, Creatinine 1.04, Estimat Glomerular Filtration Rate 53, BUN/Creatinine Ratio 10, Glucose Level 176H, Calcium Level 8.3L, Corrected Calcium 8.9, Total Bilirubin 0.5, Aspartate Amino Transf (AST/SGOT) 31, Alanine Aminotransferase (ALT/SGPT) 28, Alkaline Phosphatase 56, Total Protein 6.2L, Albumin 3.2 03/03/21 10:12: Vancomycin Level Trough 25.4*H 03/03/21 10:55: Glucometer 174H 03/03/21 16:10: Glucometer 145H Assessment/Plan/Dx Assessment: 1. Cellulitis LLE 2. Associated bullae L. anterior ankle (likely full thickness injury as some underlying ecchymotic changes in periwound) Plan: 1. No current open wound 2. Broad spectrum antibiotics per primary team's capable hands 3. Protect bullae as much as possible at this time. No dressing needed currently 4. If bullae does drain, leave roof of bullae covering bed and contact wound care nurse (or physician) for new dressing recommendations 5. Adequate glycemic control recommended 6. Elevate LLE above level of heart as much as possible (barbara. when lying in bed). With massive edema, would prefer elevation 2 hours at a time, 3 times daily and while sleeping at HS. BALTAZAR HUERTA MD Mar 03, 2021 18:15
[2021-03-03] MEDS: AMITRIPTYLINE 50 MG (ELAVIL) TAB PO SCH (21:51)
[2021-03-03 23:30] VITALS: BP 123/72
[2021-03-04] MEDS: PIPERACILLIN/TAZOBACTAM (BULK) 4.5 GM in NS (IVPB) 100 ML IV SCH ×4 (01:47→23:59)
[2021-03-04] MEDS: inSUlin ASPART (NovoLOG) 1 UNIT/0.01 ML (CHARGE PER UNIT) SC SCH ×4 (06:24→21:56)
[2021-03-04] MEDS ORDERED: TROUGH ORDER-PHARMACY XX ONE (07:00)
--- NOTE | 2021-03-04 07:29 | Progress Note - Surgery ---
JUVENAL RIOS 03/04/21 0729: Subjective Date Seen by a Provider: Mar 04, 2021 Time Seen by a Provider: 06:56 Subjective/Events-last exam Pt laying in the bed when I visited. Cellulitis, erythema, and swelling is still present without an apparent change since yesterday. Left inguinal region josefina thema also appears to have no change since yesterday. Erythema still remains within the boundaries of the amin made 4 days ago. Pt still has complaint of 9/10 pain that radiates to the thigh. Review of Systems General: No Chills, No Night Sweats; Fatigue HEENT: No Head Aches, No Visual Changes Pulmonary: No Dyspnea, No Cough Cardiovascular: No: Chest Pain, Palpitations Gastrointestinal: No: Nausea, Vomiting, Abdominal Pain, Diarrhea Genitourinary: No Dysuria, No Frequency Musculoskeletal: leg pain (Left leg and thigh pain (9/10)) Neurological: Weakness (Some weakness in left lower extremity); No: Numbness Objective Exam Vital Signs Date Time Temp Pulse Resp B/P (MAP) Pulse Ox O2 Delivery O2 Flow Rate FiO2 03/03/21 23:30 36.6 73 18 123/72 (89) 94 Room Air 03/03/21 20:45 96 Room Air 03/03/21 16:14 36.5 63 20 137/70 (92) 97 Room Air 03/03/21 08:00 36.1 71 21 125/77 (93) 96 Room Air 03/03/21 08:00 94 Room Air I & O 03/04/21 07:00 Intake Total 1740 ml Output Total 1150 ml Balance 590 ml Capillary Refill : Less Than 3 Seconds General Appearance: No Apparent Distress, WD/WN, Chronically ill, Obese HEENT: PERRL/EOMI Neck: Full Range of Motion, Normal Inspection, Non Tender, Supple Respiratory: Chest Non Tender, Lungs Clear, Normal Breath Sounds, No Accessory Muscle Use, No Respiratory Distress Cardiovascular: Regular Rate, Rhythm, No Murmur Peripheral Pulses: 2+ Radial Pulses (R), 2+ Radial Pulses (L) Gastrointestinal: normal bowel sounds, non tender, soft Extremity: Inflammation (skin appears more waxy at distal LLE. Pedal pulses also difficult to palpate. more hemorrhagic bruising and blistering in distal LLE.), Swelling (now appears to have a blister over the hemorrhagic area. Blisters appear more fluid filled than yesterday.) Neurologic/Psychiatric: Alert, Oriented x3 Skin: Erythema (Left inguinal and groin erythema has not changed since yesterday. Also does not exceed boundaries of the amin made.) Lymphatic: No Adenopathy (Cervical and axillary) Results Lab Laboratory Tests 03/03/21 10:12: Vancomycin Level Trough 25.4*H 03/03/21 10:55: Glucometer 174H 03/03/21 16:10: Glucometer 145H 03/03/21 20:13: Glucometer 173H 03/04/21 06:22: Glucometer 153H Assessment/Plan Assessment/Plan Assessment/Plan Cellulitis Left leg Chronic Venous stasis with hx of Lymphedema Morbid Obesity Hx of decreased mobility Pt has cellulitis of left leg. Does not seem worse and has not gone outside lines drawn 4 days ago. US doppler was done (02/24) and did not specifically mention any abscess seen. Still nothing surgical can be done at this time. Pt currently on vancomycin and piperacillin/tazobactam. Continue leg elevation and monitoring. JOE MARIEE DO 03/04/21 1259: Subjective Time Seen by a Provider: 11:57 Subjective/Events-last exam Pt seen and examined, no changes and still has leg pain (same). Review of Systems General: Fatigue Pulmonary: No Dyspnea, No Cough Cardiovascular: No: Chest Pain, Palpitations Gastrointestinal: No: Nausea, Vomiting, Abdominal Pain Musculoskeletal: leg pain (Left leg and thigh pain (12/25)) Objective Exam General Appearance: Chronically ill, Obese Respiratory: Lungs Clear, Normal Breath Sounds, No Accessory Muscle Use, No Respiratory Distress Cardiovascular: Regular Rate, Rhythm, No Murmur Gastrointestinal: non tender, soft Extremity: Inflammation (skin appears more waxy at distal LLE. Pedal pulses also difficult to palpate. more hemorrhagic bruising and blistering in distal LLE.), Swelling (now appears to have a blister over the hemorrhagic area. Blisters appear more fluid filled than yesterday.), Other (no worse than yesterday) Assessment/Plan Assessment/Plan Assessment/Plan Cellulitis Left leg Chronic Venous stasis with hx of Lymphedema Morbid Obesity Hx of decreased mobility Pt has cellulitis of left leg. Does not seem worse and has not gone outside lines drawn 4 days ago. US doppler was done (02/24) and did not specifically mention any abscess seen. Still nothing surgical can be done at this time. Pt currently on vancomycin and piperacillin/tazobactam. Continue leg elevation and monitoring. Supervisory-Addendum Brief Verification & Attestation Participated in pt care: history, MDM, physical Personally performed: exam, history, MDM, supervision of care Care discussed with: Medical Student Procedures: n/a Verification and Attestation of Medical Student E/M Service A medical student performed and documented this service. I then reviewed and verified all information documented by the medical student and made modifications to such information, when appropriate. I personally performed a physical exam, medical decision making and then discussed any differences between the notes and made revisions as necessary to create one note. Joe Mariee , 03/04/21 , 12:59 JUVENAL RIOS Mar 04, 2021 07:29 JOE MARIEE DO Mar 04, 2021 12:59
[2021-03-04 07:31] LABS: BASOPHILS % (AUTO) 1 % (0-10); EOSINOPHILS # (AUTO) 0.2 10^3/uL (0.0-0.3); EOSINOPHILS % (AUTO) 3 % (0-10); HEMATOCRIT 35 % (35-52); HEMOGLOBIN 11.6 g/dL (11.5-16.0); LYMPHOCYTES # (AUTO) 1.4 10^3/uL (1.0-4.0); LYMPHOCYTES % (AUTO) 30 % (12-44); MEAN CORPUSCULAR HEMOGLOBIN 35 pg (25-34); MEAN CORPUSCULAR HGB CONC 33 g/dL (32-36); MEAN CORPUSCULAR VOLUME 106 fL (80-99); MEAN PLATELET VOLUME 8.9 fL (9.0-12.2); MONOCYTES # (AUTO) 0.4 10^3/uL (0.0-1.0); MONOCYTES % (AUTO) 9 % (0-12); NEUTROPHILS # (AUTO) 2.6 10^3/uL (1.8-7.8); NEUTROPHILS % (AUTO) 56 % (42-75); PLATELET COUNT 265 10^3/uL (130-400); WHITE BLOOD COUNT 4.6 10^3/uL (4.3-11.0)
[2021-03-04 08:03] LABS: BILIRUBIN,TOTAL 0.5 MG/DL (0.1-1.0); CALCIUM 8.3 MG/DL (8.5-10.1); CREATININE SERUM 0.95 MG/DL (0.60-1.30); POTASSIUM 4.1 MMOL/L (3.6-5.0); TOTAL PROTEIN 6.1 GM/DL (6.4-8.2); VANCOMYCIN,TROUGH 12.9 UG/ML (10.0-20.0)
[2021-03-04 08:45] VITALS: BP 128/59
--- NOTE | 2021-03-04 09:52 | Physical Therapy Progress Note ---
Therapy Progress Note Patient declined PT stating she is too tired and has had a long week. PT will attempt in a.m. 1 ref RENATA RYAN PT Mar 04, 2021 09:52
[2021-03-04] MEDS: VANCOMYCIN 1500 MG/NS 500 ML IVPB IV SCH ×2 (09:53)
[2021-03-04] MEDS: FLUoxetine HCL 20 MG (PROzac) CAP PO SCH ×2 (09:58→20:03)
[2021-03-04] MEDS: ASPIRIN E.C. 81 MG (ECOTRIN) TAB PO SCH (09:58)
[2021-03-04] MEDS: HYDROcodone/APAP 5 MG/325 MG (LORTAB) TAB PO PRN ×3 (09:59→23:59)
[2021-03-04] MEDS: ENOXAPARIN 40 MG/0.4 ML (LOVENOX) SYR SQ SCH ×2 (09:59→20:03)
--- NOTE | 2021-03-04 14:53 | Progress Note - Surgery ---
Subjective Date Seen by a Provider: Mar 04, 2021 Time Seen by a Provider: 08:26 Subjective/Events-last exam Today when I visited the pt she was eating breakfast in bed. She confirms continued improvement to the pain and swelling in her LLE, however it remains very sensitive to touch. The heat which was previously felt coming from the leg is now gone and the erythema is improved. The distal bulla is appearing more clear today but remains intact. Review of Systems General: No Chills, No Night Sweats, No Fatigue, No Malaise; Appetite HEENT: No Head Aches, No Visual Changes, No Dysphasia, No Sore Throat Pulmonary: No Dyspnea, No Cough, No Pleuritic Chest Pain Cardiovascular: Edema; No: Chest Pain, Palpitations, Lt Headedness Gastrointestinal: No: Nausea, Vomiting, Abdominal Pain, Diarrhea, Constipation, Melena, Hematochezia Genitourinary: No Dysuria, No Frequency, No Incontinence, No Hematuria Musculoskeletal: leg pain; No: neck pain, shoulder pain, arm pain, back pain Neurological: No: Weakness, Numbness, Change in speech, Confusion Objective Exam Vital Signs Date Time Temp Pulse Resp B/P (MAP) Pulse Ox O2 Delivery O2 Flow Rate FiO2 03/04/21 08:45 36.8 64 20 128/59 (82) 95 Room Air 03/04/21 08:00 Room Air 03/03/21 23:30 36.6 73 18 123/72 (89) 94 Room Air 03/03/21 20:45 96 Room Air 03/03/21 16:14 36.5 63 20 137/70 (92) 97 Room Air I & O 03/04/21 07:00 Intake Total 1740 ml Output Total 1150 ml Balance 590 ml Capillary Refill : Less Than 3 Seconds General Appearance: Chronically ill, Obese HEENT: PERRL/EOMI Neck: Full Range of Motion, Normal Inspection, Non Tender, Supple Respiratory: Lungs Clear, Normal Breath Sounds, No Accessory Muscle Use, No Respiratory Distress Cardiovascular: Regular Rate, Rhythm, No Murmur Peripheral Pulses: 2+ Radial Pulses (R), 2+ Radial Pulses (L) Gastrointestinal: non tender, soft Extremity: Inflammation (skin appears more waxy at distal LLE. Pedal pulses also difficult to palpate. more hemorrhagic bruising and blistering in distal LLE.), Swelling (now appears to have a blister over the hemorrhagic area. Blisters appear more fluid filled than yesterday.), Other (no worse than yesterday) Neurologic/Psychiatric: Alert, Oriented x3 Skin: Erythema (Left inguinal and groin erythema has not changed since yesterday. Also does not exceed boundaries of the amin made.) Lymphatic: No Adenopathy (Cervical and axillary) Results Lab Laboratory Tests 03/03/21 16:10: Glucometer 145H 03/03/21 20:13: Glucometer 173H 03/04/21 06:22: Glucometer 153H 03/04/21 07:25: White Blood Count 4.6, Red Blood Count 3.30L, Hemoglobin 11.6, Hematocrit 35, Mean Corpuscular Volume 106H, Mean Corpuscular Hemoglobin 35H, Mean Corpuscular Hemoglobin Concent 33, Red Cell Distribution Width 13.1, Platelet Count 265, Mean Platelet Volume 8.9L, Immature Granulocyte % (Auto) 1, Neutrophils (%) (Auto) 56, Lymphocytes (%) (Auto) 30, Monocytes (%) (Auto) 9, Eosinophils (%) (Auto) 3, Basophils (%) (Auto) 1, Neutrophils # (Auto) 2.6, Lymphocytes # (Auto) 1.4, Monocytes # (Auto) 0.4, Eosinophils # (Auto) 0.2, Basophils # (Auto) 0.0, Immature Granulocyte # (Auto) 0.0, Sodium Level 137, Potassium Level 4.1, Chloride Level 104, Carbon Dioxide Level 22, Anion Gap 11, Blood Urea Nitrogen 10, Creatinine 0.95, Estimat Glomerular Filtration Rate 59, BUN/Creatinine Ratio 11, Glucose Level 170H, Calcium Level 8.3L, Corrected Calcium 9.1, Total Bilirubin 0.5, Aspartate Amino Transf (AST/SGOT) 28, Alanine Aminotransferase (ALT/SGPT) 27, Alkaline Phosphatase 47, Total Protein 6.1L, Albumin 3.0L, Vancomycin Level Trough 12.9 03/04/21 10:28: Glucometer 234H Assessment/Plan Assessment/Plan Assessment/Plan Cellulitis Left leg Chronic Venous stasis with hx of Lymphedema Morbid Obesity Hx of decreased mobility Pt has cellulitis of left leg. Does not seem worse and has not gone outside lines drawn 4 days ago. US doppler was done (02/24) and did not specifically mention any abscess seen. Still nothing surgical can be done at this time. Pt currently on vancomycin and piperacillin/tazobactam. Continue leg elevation and monitoring. KATIE ONEAL Mar 04, 2021 14:53
--- NOTE | 2021-03-04 14:57 | Progress Note - Hospitalist ---
KATIE ONEAL 03/04/21 1457: Subjective HPI/CC On Admission Date Seen by Provider: Mar 04, 2021 Time Seen by Provider: 08:26 Subjective/Events-last exam Today when I visited the pt she was eating breakfast in bed. She confirms continued improvement to the pain and swelling in her LLE, however it remains very sensitive to touch. The heat which was previously felt coming from the leg is now gone and the erythema is improved. The distal bulla is appearing more clear today but remains intact. Review of Systems General: No Chills, No Night Sweats, No Fatigue, No Malaise; Appetite HEENT: No Head Aches, No Visual Changes, No Dysphasia, No Sore Throat Pulmonary: No Dyspnea, No Cough, No Pleuritic Chest Pain Cardiovascular: No: Chest Pain, Palpitations, Edema, Lt Headedness Gastrointestinal: No: Nausea, Vomiting, Abdominal Pain, Diarrhea, Constipation, Melena, Hematochezia Genitourinary: No Dysuria, No Frequency, No Incontinence, No Hematuria Musculoskeletal: leg pain; No: neck pain, shoulder pain, arm pain, back pain Neurological: No: Weakness, Numbness, Change in speech, Confusion Objective Exam Vital Signs Vital Signs Date Time Temp Pulse Resp B/P (MAP) Pulse Ox O2 Delivery O2 Flow Rate FiO2 03/04/21 08:45 36.8 64 20 128/59 (82) 95 Room Air Capillary Refill : Less Than 3 Seconds General Appearance: No Apparent Distress, WD/WN, Obese HEENT: PERRL/EOMI, Pharynx Normal Neck: Full Range of Motion, Non Tender, Supple Respiratory: Chest Non Tender, Lungs Clear, Normal Breath Sounds, No Accessory Muscle Use, No Respiratory Distress Cardiovascular: Regular Rate, Rhythm, No Edema, No Gallop, No Murmur, Normal Peripheral Pulses Gastrointestinal: Normal Bowel Sounds, No Organomegaly, No Pulsatile Mass, Non Tender, Soft Rectal: Deferred Extremity: Normal Capillary Refill, Normal Range of Motion, Inflammation (Still some errythema present, but greatly improved), Swelling Neurologic/Psychiatric: Alert, Oriented x3, No Motor/Sensory Deficits, Normal 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 Assessment/Plan Assessment and Plan Assess & Plan/Chief Complaint LLE cellulitis - improving with zosyn and vanc IV Morbid obesity T2DM - poorly controlled HTN Plan - Continue ABX regimen (+zosyn and vanc) Monitor skin changes and distal bulla Supportive care and pain control BISI NEWMAN DO 03/05/21 0549: Subjective Subjective/Events-last exam Left leg much improved IV antibiotics continue Discharge plan for tomorrow Objective Exam General Appearance: No Apparent Distress, WD/WN, Chronically ill, Obese Extremity: Swelling Assessment/Plan Assessment and Plan Assess & Plan/Chief Complaint Discharge tomorrow Supervisory-Addendum Brief Verification & Attestation Participated in pt care: history, MDM, physical Personally performed: exam, history, MDM, supervision of care Care discussed with: Medical Student Procedures: n/a Results interpretation: Verified all documentation Verification and Attestation of Medical Student E/M Service A medical student performed and documented this service in my presence. I reviewed and verified all information documented by the medical student and made modifications to such information, when appropriate. I personally performed the physical exam and medical decision making. Bisi Newman, Mar 05, 2021,05:48 KATIE ONEAL Mar 04, 2021 14:57 BISI NEWMAN DO Mar 05, 2021 05:49
[2021-03-04 16:00] VITALS: BP 115/56
[2021-03-04] MEDS: AMITRIPTYLINE 50 MG (ELAVIL) TAB PO SCH (20:03)
[2021-03-04] MEDS: GABAPENTIN 600 MG (NEURONTIN) TAB PO PRN (20:07)
[2021-03-05] VITALS: BP 117/59
[2021-03-05] MEDS: inSUlin ASPART (NovoLOG) 1 UNIT/0.01 ML (CHARGE PER UNIT) SC SCH ×4 (06:09→20:57)
[2021-03-05 06:43] LABS: BASOPHILS % (AUTO) 1 % (0-10); EOSINOPHILS # (AUTO) 0.2 10^3/uL (0.0-0.3); EOSINOPHILS % (AUTO) 5 % (0-10); HEMATOCRIT 34 % (35-52); LYMPHOCYTES # (AUTO) 1.6 10^3/uL (1.0-4.0); LYMPHOCYTES % (AUTO) 35 % (12-44); MEAN CORPUSCULAR HEMOGLOBIN 35 pg (25-34); MEAN CORPUSCULAR HGB CONC 33 g/dL (32-36); MEAN CORPUSCULAR VOLUME 108 fL (80-99); MEAN PLATELET VOLUME 9.1 fL (9.0-12.2); MONOCYTES # (AUTO) 0.5 10^3/uL (0.0-1.0); MONOCYTES % (AUTO) 11 % (0-12); NEUTROPHILS # (AUTO) 2.2 10^3/uL (1.8-7.8); NEUTROPHILS % (AUTO) 48 % (42-75); PLATELET COUNT 295 10^3/uL (130-400); WHITE BLOOD COUNT 4.6 10^3/uL (4.3-11.0)
[2021-03-05 07:10] LABS: ALBUMIN 2.9 GM/DL (3.2-4.5); BILIRUBIN,TOTAL 0.5 MG/DL (0.1-1.0); CALCIUM 8.2 MG/DL (8.5-10.1); CREATININE SERUM 0.96 MG/DL (0.60-1.30); POTASSIUM 3.9 MMOL/L (3.6-5.0); TOTAL PROTEIN 5.9 GM/DL (6.4-8.2)
--- NOTE | 2021-03-05 07:30 | Progress Note - Surgery ---
JUVENAL RIOS 03/05/21 0730: Subjective Date Seen by a Provider: Mar 05, 2021 Time Seen by a Provider: 07:13 Subjective/Events-last exam Patient was laying in bed when I visited. Cellulitis, erythema, and swelling is still present without an apparent change since yesterday. No change also in the left inguinal region erythema. Erythema is still within the boundaries of the amin made 5 days ago. Pt still has complaint of 9/10 pain that radiates to the thigh. Review of Systems General: No Chills, No Night Sweats, No Fatigue HEENT: No Head Aches, No Visual Changes Pulmonary: No Dyspnea, No Cough Cardiovascular: No: Chest Pain, Palpitations Gastrointestinal: No: Nausea, Vomiting, Abdominal Pain, Diarrhea Genitourinary: No Dysuria, No Frequency Musculoskeletal: leg pain (Left leg and thigh pain (9/10)); No: back pain Neurological: Weakness (Some weakness in LLE); No: Numbness Objective Exam Vital Signs Date Time Temp Pulse Resp B/P (MAP) Pulse Ox O2 Delivery O2 Flow Rate FiO2 03/05/21 00:00 36.8 72 18 117/59 (78) 96 Room Air 03/04/21 20:05 Room Air 03/04/21 16:00 36.1 79 20 115/56 (75) 92 Room Air 03/04/21 08:45 36.8 64 20 128/59 (82) 95 Room Air 03/04/21 08:00 Room Air I & O 03/05/21 07:00 Intake Total 2090 ml Output Total 500 ml Balance 1590 ml Capillary Refill : Less Than 3 Seconds General Appearance: No Apparent Distress, WD/WN, Chronically ill, Obese HEENT: PERRL/EOMI, Pharynx Normal Neck: Full Range of Motion, Normal Inspection, Non Tender, Supple Respiratory: Chest Non Tender, Lungs Clear, Normal Breath Sounds, No Accessory Muscle Use, No Respiratory Distress Cardiovascular: Regular Rate, Rhythm, No Murmur Peripheral Pulses: 2+ Radial Pulses (R), 2+ Radial Pulses (L) Gastrointestinal: normal bowel sounds, non tender, soft Extremity: Inflammation (Hemorrhagic bruising and blistering in distal LLE.), Swelling (Bliseters over the hemorrhagic area. Pedal pulses difficult to palpate.), Other (Overall does not appear worse than yesterday.) Neurologic/Psychiatric: Alert, Oriented x3, Normal Mood/Affect Skin: Erythema (Left inguinal and groin erythema has not changed since yesterday. Also does not exceed boundaries of the amin made.) Lymphatic: No Adenopathy (cervical and axillary) Results Lab Laboratory Tests 03/04/21 10:28: Glucometer 234H 03/04/21 15:51: Glucometer 196H 03/04/21 20:32: Glucometer 192H 03/05/21 05:35: Glucometer 137H 03/05/21 05:58: White Blood Count 4.6, Red Blood Count 3.11L, Hemoglobin 11.0L, Hematocrit 34L, Mean Corpuscular Volume 108H, Mean Corpuscular Hemoglobin 35H, Mean Corpuscular Hemoglobin Concent 33, Red Cell Distribution Width 13.2, Platelet Count 295, Mean Platelet Volume 9.1, Immature Granulocyte % (Auto) 1, Neutrophils (%) (Auto) 48, Lymphocytes (%) (Auto) 35, Monocytes (%) (Auto) 11, Eosinophils (%) ( Auto) 5, Basophils (%) (Auto) 1, Neutrophils # (Auto) 2.2, Lymphocytes # (Auto) 1.6, Monocytes # (Auto) 0.5, Eosinophils # (Auto) 0.2, Basophils # (Auto) 0.0, Immature Granulocyte # (Auto) 0.0, Sodium Level 137, Potassium Level 3.9, Chloride Level 104, Carbon Dioxide Level 21, Anion Gap 12, Blood Urea Nitrogen 16, Creatinine 0.96, Estimat Glomerular Filtration Rate 58, BUN/Creatinine Ratio 17, Glucose Level 156H, Calcium Level 8.2L, Corrected Calcium 9.1, Total Bili roberts 0.5, Aspartate Amino Transf (AST/SGOT) 22, Alanine Aminotransferase (ALT/SGPT) 23, Alkaline Phosphatase 48, Total Protein 5.9L, Albumin 2.9L Assessment/Plan Assessment/Plan Assessment/Plan Cellulitis Left leg Chronic Venous stasis with hx of Lymphedema Morbid Obesity Hx of decreased mobility Pt has cellulitis of left leg. Does not seem worse and has not gone outside lines drawn 5 days ago. US doppler was done (02/24) and did not specifically mention any abscess seen. Still nothing surgical can be done at this time. Pt currently on vancomycin and piperacillin/tazobactam. Continue leg elevation and monitoring. JOE CAO DO 03/05/21 0953: Subjective Time Seen by a Provider: 09:26 Subjective/Events-last exam Pt seen and examined, no changes or new complaints Review of Systems General: No Chills, No Night Sweats; Fatigue Pulmonary: No Dyspnea, No Cough Cardiovascular: No: Chest Pain, Palpitations Gastrointestinal: No: Nausea, Vomiting, Abdominal Pain Musculoskeletal: leg pain (Left leg and thigh pain (12/25)) Objective Exam General Appearance: No Apparent Distress, Chronically ill, Obese Respiratory: Lungs Clear, Normal Breath Sounds, No Accessory Muscle Use, No Respiratory Distress Cardiovascular: Regular Rate, Rhythm, No Murmur Gastrointestinal: non tender, soft Extremity: Inflammation (Hemorrhagic bruising and blistering in distal LLE.), Swelling (Blisters over the hemorrhagic area. Pedal pulses difficult to palpate.), Other (Overall does not appear worse than yesterday. blister does look like minimally more fluid) Skin: Erythema (Left inguinal and groin erythema has not changed since . Also does not exceed boundaries of the amin made.) Assessment/Plan Assessment/Plan Assessment/Plan Cellulitis Left leg Chronic Venous stasis with hx of Lymphedema Morbid Obesity Hx of decreased mobility Pt has cellulitis of left leg. Does not seem worse and has not gone outside lines drawn 5 days ago. US doppler was done (02/24) and did not specifically mention any abscess seen. Still nothing surgical can be done at this time and therefore will sign off and reconsult if needed. Supervisory-Addendum Brief Verification & Attestation Participated in pt care: history, MDM, physical Personally performed: exam, history, MDM, supervision of care Care discussed with: Medical Student Procedures: n/a Verification and Attestation of Medical Student E/M Service A medical student performed and documented this service. I then reviewed and verified all information documented by the medical student and made modifications to such information, when appropriate. I personally performed a physical exam, medical decision making and then discussed any differences between the notes and made revisions as necessary to create one note. Joe Cao , 03/05/21 , 09:52 JUVENAL RIOS Mar 05, 2021 07:30 JOE CAO DO Mar 05, 2021 09:53
[2021-03-05 08:20] VITALS: BP 126/65
[2021-03-05] MEDS: ASPIRIN E.C. 81 MG (ECOTRIN) TAB PO SCH (08:56)
[2021-03-05] MEDS: FLUoxetine HCL 20 MG (PROzac) CAP PO SCH ×2 (08:56→21:06)
[2021-03-05] MEDS: ENOXAPARIN 40 MG/0.4 ML (LOVENOX) SYR SQ SCH ×2 (08:56→21:06)
[2021-03-05] MEDS: PIPERACILLIN/TAZOBACTAM (BULK) 4.5 GM in NS (IVPB) 100 ML IV SCH ×2 (08:57→16:54)
[2021-03-05] MEDS: VANCOMYCIN 1500 MG/NS 500 ML IVPB IV SCH ×2 (09:07)
[2021-03-05] MEDS: HYDROcodone/APAP 5 MG/325 MG (LORTAB) TAB PO PRN ×3 (09:13→23:04)
--- NOTE | 2021-03-05 10:22 | Physical Therapy Daily Note ---
PT Daily Note-Current Subjective Patient reluctantly agrees to PT. Mental Status Patient Orientation: Normal For Age Transfers SCALE: Activities may be completed with or without assistive devices. 0-Hupqxsgncl-ajcvsne completes the activity by him/herself with no assistance from a helper. 5-Set-up or Clean-up Assistance-helper sets up or cleans up; patient completes activity. [place] assists only prior to or following the activity. 4-Supervision or Touching Assistance-helper provides verbal cues and/or touching/steadying and/or contact guard assistance as patient completes activity. Assistance may be provided throughout the activity or intermittently. 3-Partial/Moderate Assistance-helper does LESS THAN HALF the effort. [place] lifts, holds or supports trunk or limbs, but provides less than half the effort. 2-Substantial/Maximal Assistance-helper does MORE THAN HALF the effort. [place] lifts or holds trunk or limbs and provides more than half the effort. 5-Dcnkvigci-saxebi does ALL the effort. Patient does none of the effort to complete the activity. Or, the assistance of 2 or more helpers is required for the patient to complete the activity. If activity was not attempted, code reason: 7-Patient Refused. 9-Not Applicable-not attempted and the patient did not perform the activity before the current illness, exacerbation or injury. 10-Not Attempted due to Environmental Limitations-(lack of equipment, weather restraints, etc.). 88-Not Attempted due to Medical Conditions or Safety Concerns. Lying to Sitting/Side of Bed(Q: 6 Sit to Stand (QC): 6 Chair/Lpu-db-Yvcqz Xfer(QC): 6 Weight Bearing Full Weight Bearing Full Weight Bearing Gait Training Distance: 10' Walk 10 feet (QC): 5 Gait Assistive Device: FWW WBOS due to obesity/functional gait sequence Assessment Patient is currently at [facility] with gross motor skills. PT to dismiss patient from services at this time. PT [place] Guide Goals [place] Or [place] Guide Goals PT [place] Guide Goals Time Frame: Mar 13, 2021 Roll Left & Right (QC): 3 Sit to Lying (QC): 3 Lying-Sitting on Side/Bed(QC): 3 Sit to Stand (QC): 3 Chair/Fhu-je-Rryjs Xfer(QC): 3 Toilet Transfer (QC): 3 Car Transfer (QC): 3 Does the Patient Walk: Yes Walk 10 feet (QC): 3 Walk 50ft with 2 Turns (QC): 3 Walk 150 ft (QC): 3 Walking 10ft on Uneven Surface: 3 1 Step (curb) (QC): 3 4 Steps (QC): 3 12 Steps (QC): 3 Picking up an Object (QC): 3 Wheel 50 feet with 2 turns (QC: 3 Wheel 150 feet: 3 PT Plan Treatment/Plan Treatment Plan: Discontinue PT Treatment Plan: Bed Mobility, Education, Functional Activity Ezra, Functional Strength, Gait, Safety, Therapeutic Exercise, Transfers Treatment Duration: Mar 13, 2021 Frequency: 6 times per week Estimated Hrs Per Day: .25 hour per day Patient and/or Family Agrees t: Yes Time/GCodes Time In: 851 Time Out: 900 Total Billed Treatment Time: 9 Total Billed Treatment 1 visit FA 9 min RENATA RYAN PT Mar 05, 2021 10:22
[2021-03-05 11:59] VITALS: BP 116/62
--- NOTE | 2021-03-05 13:42 | Progress Note - Hospitalist ---
KATIE ONEAL 03/05/21 1342: Subjective HPI/CC On Admission Date Seen by Provider: Mar 05, 2021 Time Seen by Provider: 08:34 Subjective/Events-last exam When I visited the pt today she was sleeping in bed. She states she is still having pain from her LLE and not improved much since yesterday. Her LLE does exhibit some increase erythema which has transitioned more laterally. The distal bulla remains intact and about the same size and appears more serous fluid filled than blood filled. She continues to tolerate a normal diet and bowel and urinary functions remain unaffected. She does state that she would like to take a bath today. She states that once D/C she does have her son at home who can assist somewhat in her care. creative services writer also working with pt to set up home health. Review of Systems General: No Chills, No Night Sweats; Fatigue, Appetite HEENT: No Head Aches, No Visual Changes, No Dysphasia, No Sore Throat Pulmonary: No Dyspnea, No Cough, No Pleuritic Chest Pain Cardiovascular: Edema; No: Chest Pain, Palpitations, Lt Headedness Gastrointestinal: No: Nausea, Vomiting, Abdominal Pain, Diarrhea, Constipation Genitourinary: No Dysuria, No Frequency, No Incontinence, No Hematuria Musculoskeletal: leg pain; No: neck pain, back pain Neurological: No: Weakness, Numbness, Change in speech Objective Exam Vital Signs Vital Signs Date Time Temp Pulse Resp B/P (MAP) Pulse Ox O2 Delivery O2 Flow Rate FiO2 03/05/21 11:59 36.5 65 22 116/62 (80) 97 Room Air Capillary Refill : Less Than 3 Seconds General Appearance: No Apparent Distress, WD/WN, Obese HEENT: PERRL/EOMI, Pharynx Normal Neck: Full Range of Motion, Non Tender, Supple Respiratory: Chest Non Tender, Lungs Clear, Normal Breath Sounds, No Accessory Muscle Use, No Respiratory Distress Cardiovascular: Regular Rate, Rhythm, No Edema, No Gallop, No Murmur, Normal Peripheral Pulses Gastrointestinal: Normal Bowel Sounds, No Organomegaly, No Pulsatile Mass, Non Tender, Soft Rectal: Deferred Extremity: Normal Capillary Refill, Normal Range of Motion, Inflammation (LLE - more laterally now), Swelling Neurologic/Psychiatric: Alert, Oriented x3, No Motor/Sensory Deficits Skin: Normal Color, Warm/Dry, Erythema (Latteral LLE) Lymphatic: No Adenopathy Results/Procedures Lab Laboratory Tests 03/05/21 05:58 Patient resulted labs reviewed. Assessment/Plan Assessment and Plan Assess & Plan/Chief Complaint LLE cellulitis - improving with zosyn and vanc IV Morbid obesity T2DM - poorly controlled HTN Plan - Continue ABX regimen (+zosyn and vanc) Monitor skin changes and distal bulla Supportive care and pain control Bariatric consult BISI NEWMAN DO 03/06/21 0622: Subjective Subjective/Events-last exam Patient very slow to recover Morbid obesity precludes activity Review of Systems Musculoskeletal: leg pain Objective Exam General Appearance: No Apparent Distress, WD/WN, Chronically ill, Obese Respiratory: Lungs Clear Extremity: Inflammation (LLE - more laterally now), Swelling Assessment/Plan Assessment and Plan Assess & Plan/Chief Complaint IV abx Supervisory-Addendum Brief Verification & Attestation Participated in pt care: history, MDM, physical Personally performed: exam, history, MDM, supervision of care Care discussed with: Medical Student Procedures: n/a Results interpretation: Verified all documentation Verification and Attestation of Medical Student E/M Service A medical student performed and documented this service in my presence. I reviewed and verified all information documented by the medical student and made modifications to such information, when appropriate. I personally performed the physical exam and medical decision making. Bisi Newman Mar 06, 2021,06:21 KATIE ONEAL Mar 05, 2021 13:42 BISI NEWMAN DO Mar 06, 2021 06:22
--- NOTE | 2021-03-05 13:51 | Occupational Therapy Eval ---
OT Evaluation-General/PLF Medical Diagnosis Admission Date Feb 22, 2021 at 16:47 Medical Diagnosis: left LE cellulitis/ELEANOR/sepsis Onset Date: Feb 22, 2021 Therapy Diagnosis Therapy Diagnosis: Impaired adls Height/Weight Height (Feet): 5 Height (Inches): 6.00 Weight (Pounds): 290 Weight (Ounces): 1.0 Precautions Precautions/Isolations: Fall Prevention, Standard Precautions Referral Physician: Neto Referral Reason: Evaluation/Treatment Medical History Pertinent Medical History: Arthritis, CAD, CVA, DM, Neuropathy, Smoking Current History presents to ER with LLE swelling/redness. Pt reports living in multilevel home with son and grandkids. All needs met on main level. She verbalizes being indep with adls and iadls at w/c level. She uses a walker when ambulating. Reviewed History: Yes Social History Home: Multilevel Current Living Status: Other Family ADL-Prior Level of Function SCALE: Activities may be completed with or without assistive devices. 1-Veclqjehod-edzwgnt completes the activity by him/herself with no assistance from a helper. 5-Set-up or Clean-up Assistance-helper sets up or cleans up; patient completes activity. [place] assists only prior to or following the activity. 4-Supervision or Touching Assistance-helper provides verbal cues and/or touching/steadying and/or contact guard assistance as patient completes activity. Assistance may be provided throughout the activity or intermittently. 3-Partial/Moderate Assistance-helper does LESS THAN HALF the effort. [place] lifts, holds or supports trunk or limbs, but provides less than half the effort. 2-Substantial/Maximal Assistance-helper does MORE THAN HALF the effort. [place] lifts or holds trunk or limbs and provides more than half the effort. 1-Zrtdzouzi-tjtwbi does ALL the effort. Patient does none of the effort to complete the activity. Or, the assistance of 2 or more helpers is required for the patient to complete the activity. If activity was not attempted, code reason: 7-Patient Refused. 9-Not Applicable-not attempted and the patient did not perform the activity before the current illness, exacerbation or injury. 10-Not Attempted due to Environmental Limitations-(lack of equipment, weather restraints, etc.). 88-Not Attempted due to Medical Conditions or Safety Concerns. Self Care: Independent Functional Cognition: Unknown DME/Equipment: Bath Bench, Tub/Shower Drive Self: Yes OT Current Status Subjective Pt reports pain in LLE. Significant amount of edema, redness and notable wounds. Appearance Left sitting in chair, all needs within reach, [employer] in room. Mental Status/Objective Patient Orientation: Person, Situation Current Hearing Aids: No Dentures/Partials: No Hand Dominance: Right Upper Extremity ROM Yonatan shoulders: ~110 degrees. Unsure actual range as pt gives little effort. Upper Extremity Strength 4/5 grossly ADL-Treatment Eating (QC): 6 On/Off Footwear (QC): 1 Pt transferring from shower w/c to recliner with SBA at OT arrival. Once sitting, she declines any further standing tasks. Unable to don shoes secondary to edema and impaired flexibility. Pt likely will need assist to don LB clothing over feet. Balance appears good. Due to body habitus and reduced shoulder ROM, OT unsure if assist will be needed to manage clothing over hips. LLE very tender to touch, OT elevated and supported with pillow at end of session. Education OT Patient Education: Correct positioning, Modified ADL techniques, Progress toward Goal/Update tx plan, Purpose of tx/functional activities, Use of adapted equipment Teaching Recipient: Patient Teaching Methods: Discussion Response to Teaching: Reinforcement Needed OT Care Home Goals Psychologist Social Goals Time Frame: Mar 12, 2021 Oral Hygiene (QC): 5 Toileting Hygiene (QC): 4 Upper Body Dressing (QC): 5 Lower Body Dressing (QC): 4 On/Off Footwear (QC): 3 1=Demonstrate adherence to instructed precautions during ADL tasks. 2=Patient will verbalize/demonstrate understanding of assistive devices/modifications for ADL. 3=Patient will improve strength/tolerance for activity to enable patient to perform ADL's. OT Education/Plan Problem List/Assessment Assessment: Decreased Activ Tolerance, Edema, Impaired I ADL's, Impaired Self- Care Skills, Restricted Funct UE ROM Discharge Recommendations Plan/Recommendations: Continue POC Comment continue to assess Barriers to Progress LLE cellulitis Treatment Plan/Plan of Care Treatment,Training & Education: Yes Patient would benefit from OT for education, treatment and training to promote independence in ADL's, mobility, safety and/or upper extremity function for ADL's. Plan of Care: ADL Retraining, Functional Mobility, UE Funct Exercise/Act Treatment Duration: Mar 12, 2021 Frequency: 5 times per week Estimated Hrs Per Day: .25 hour per day Agreement: Yes Rehab Potential: Fair Time/GCodes Start Time: 13:25 Stop Time: 13:36 Total Time Billed (hr/min): 11 Billed Treatment Time 1, Kiera Turcios OT Mar 05, 2021 13:51
[2021-03-05 16:00] VITALS: BP 147/69
[2021-03-05] MEDS: AMITRIPTYLINE 50 MG (ELAVIL) TAB PO SCH (21:06)
[2021-03-06 00:20] VITALS: BP 112/56
[2021-03-06] MEDS: PIPERACILLIN/TAZOBACTAM (BULK) 4.5 GM in NS (IVPB) 100 ML IV SCH ×3 (00:48→16:39)
[2021-03-06] MEDS: HYDROcodone/APAP 5 MG/325 MG (LORTAB) TAB PO PRN ×3 (04:47→18:39)
[2021-03-06 06:03] LABS: BASOPHILS % (AUTO) 1 % (0-10); EOSINOPHILS # (AUTO) 0.3 10^3/uL (0.0-0.3); EOSINOPHILS % (AUTO) 6 % (0-10); HEMATOCRIT 37 % (35-52); HEMOGLOBIN 12.1 g/dL (11.5-16.0); LYMPHOCYTES # (AUTO) 1.7 10^3/uL (1.0-4.0); LYMPHOCYTES % (AUTO) 40 % (12-44); MEAN CORPUSCULAR HEMOGLOBIN 35 pg (25-34); MEAN CORPUSCULAR HGB CONC 33 g/dL (32-36); MEAN CORPUSCULAR VOLUME 107 fL (80-99); MEAN PLATELET VOLUME 8.9 fL (9.0-12.2); MONOCYTES # (AUTO) 0.5 10^3/uL (0.0-1.0); MONOCYTES % (AUTO) 12 % (0-12); NEUTROPHILS # (AUTO) 1.8 10^3/uL (1.8-7.8); NEUTROPHILS % (AUTO) 41 % (42-75); PLATELET COUNT 280 10^3/uL (130-400); WHITE BLOOD COUNT 4.3 10^3/uL (4.3-11.0)
[2021-03-06 06:12] LABS: ALBUMIN 3.1 GM/DL (3.2-4.5); POTASSIUM 4.1 MMOL/L (3.6-5.0)
[2021-03-06 06:13] LABS: CALCIUM 8.4 MG/DL (8.5-10.1)
[2021-03-06 06:14] LABS: TOTAL PROTEIN 6.4 GM/DL (6.4-8.2)
[2021-03-06 06:16] LABS: BILIRUBIN,TOTAL 0.5 MG/DL (0.1-1.0)
[2021-03-06] MEDS: inSUlin ASPART (NovoLOG) 1 UNIT/0.01 ML (CHARGE PER UNIT) SC SCH ×4 (06:16→21:17)
[2021-03-06 06:18] LABS: CREATININE SERUM 0.93 MG/DL (0.60-1.30)
[2021-03-06 07:51] VITALS: BP 121/76
[2021-03-06] MEDS: ENOXAPARIN 40 MG/0.4 ML (LOVENOX) SYR SQ SCH ×2 (09:01→21:17)
[2021-03-06] MEDS: VANCOMYCIN 1500 MG/NS 500 ML IVPB IV SCH ×2 (09:01)
[2021-03-06] MEDS: FLUoxetine HCL 20 MG (PROzac) CAP PO SCH ×2 (09:01→21:17)
[2021-03-06] MEDS: ASPIRIN E.C. 81 MG (ECOTRIN) TAB PO SCH (09:01)
--- NOTE | 2021-03-06 11:09 | Progress Note - Hospitalist ---
Subjective HPI/CC On Admission Date Seen by Provider: Mar 06, 2021 Time Seen by Provider: 11:15 Subjective/Events-last exam Patient doing the same Left leg is improved Labs stable Review of Systems General: Fatigue, Malaise Objective Exam Vital Signs Vital Signs Date Time Temp Pulse Resp B/P (MAP) Pulse Ox O2 Delivery O2 Flow Rate FiO2 03/07/21 00:00 36.8 64 19 116/72 (87) 93 Room Air Capillary Refill : Less Than 3 Seconds General Appearance: No Apparent Distress, WD/WN, Chronically ill, Obese Respiratory: Lungs Clear Cardiovascular: Regular Rate, Rhythm Extremity: Other (Left leg improved cellulitis with ruptured blister) Results/Procedures Lab Patient resulted labs reviewed. Assessment/Plan Assessment and Plan Assess & Plan/Chief Complaint Assessment: Severe complicated left leg cellulitis Super morbid obesity Chronic lymphedema Plan: IV antibiotics ALTHEA NEWMAN DO Mar 06, 2021 11:09
[2021-03-06] MEDS: NYSTATIN CREAM (MYCOSTATIN) 30 GM TUBE TP SCH ×2 (12:36→21:18)
[2021-03-06 16:00] VITALS: BP 129/68
[2021-03-06] MEDS: GABAPENTIN 600 MG (NEURONTIN) TAB PO PRN ×2 (18:03→21:32)
[2021-03-06] MEDS: AMITRIPTYLINE 50 MG (ELAVIL) TAB PO SCH (21:17)
[2021-03-06] MEDS: TRIAMCINOLONE 0.1% CR (KENALOG) 15 GM TUBE TOP SCH (21:18)
[2021-03-06] MEDS: ACETAMINOPHEN 500 MG TAB (TYLENOL) PO PRN (21:32)
[2021-03-07] VITALS: BP 116/72
[2021-03-07] MEDS: PIPERACILLIN/TAZOBACTAM (BULK) 4.5 GM in NS (IVPB) 100 ML IV SCH ×3 (01:25→17:37)
[2021-03-07] MEDS: HYDROcodone/APAP 5 MG/325 MG (LORTAB) TAB PO PRN ×3 (01:26→17:36)
[2021-03-07] MEDS: inSUlin ASPART (NovoLOG) 1 UNIT/0.01 ML (CHARGE PER UNIT) SC SCH ×4 (05:54→21:18)
[2021-03-07 07:46] LABS: BASOPHILS % (AUTO) 1 % (0-10); EOSINOPHILS # (AUTO) 0.2 10^3/uL (0.0-0.3); EOSINOPHILS % (AUTO) 5 % (0-10); HEMATOCRIT 34 % (35-52); HEMOGLOBIN 11.4 g/dL (11.5-16.0); LYMPHOCYTES # (AUTO) 1.7 10^3/uL (1.0-4.0); LYMPHOCYTES % (AUTO) 46 % (12-44); MEAN CORPUSCULAR HEMOGLOBIN 35 pg (25-34); MEAN CORPUSCULAR HGB CONC 33 g/dL (32-36); MEAN CORPUSCULAR VOLUME 107 fL (80-99); MEAN PLATELET VOLUME 8.8 fL (9.0-12.2); MONOCYTES # (AUTO) 0.4 10^3/uL (0.0-1.0); MONOCYTES % (AUTO) 11 % (0-12); NEUTROPHILS # (AUTO) 1.4 10^3/uL (1.8-7.8); NEUTROPHILS % (AUTO) 37 % (42-75); PLATELET COUNT 287 10^3/uL (130-400); WHITE BLOOD COUNT 3.7 10^3/uL (4.3-11.0)
[2021-03-07 07:58] LABS: ALBUMIN 3.1 GM/DL (3.2-4.5); POTASSIUM 4.3 MMOL/L (3.6-5.0)
[2021-03-07 07:59] LABS: CALCIUM 8.2 MG/DL (8.5-10.1)
[2021-03-07 08:00] LABS: TOTAL PROTEIN 5.8 GM/DL (6.4-8.2)
[2021-03-07 08:02] VITALS: BP 125/85
[2021-03-07 08:02] LABS: BILIRUBIN,TOTAL 0.4 MG/DL (0.1-1.0)
[2021-03-07] MEDS: ASPIRIN E.C. 81 MG (ECOTRIN) TAB PO SCH (09:11)
[2021-03-07] MEDS: VANCOMYCIN 1500 MG/NS 500 ML IVPB IV SCH ×2 (09:11)
[2021-03-07] MEDS: FLUoxetine HCL 20 MG (PROzac) CAP PO SCH ×2 (09:11→21:16)
[2021-03-07] MEDS: TRIAMCINOLONE 0.1% CR (KENALOG) 15 GM TUBE TOP SCH ×2 (09:12→21:18)
[2021-03-07] MEDS: NYSTATIN CREAM (MYCOSTATIN) 30 GM TUBE TP SCH ×3 (09:12→21:18)
[2021-03-07] MEDS: ENOXAPARIN 40 MG/0.4 ML (LOVENOX) SYR SQ SCH ×2 (09:12→21:17)
--- NOTE | 2021-03-07 10:52 | Progress Note - Hospitalist ---
Subjective HPI/CC On Admission Date Seen by Provider: Mar 07, 2021 Time Seen by Provider: 11:00 Subjective/Events-last exam Patient about the same Left leg much improved Labs stable Review of Systems Musculoskeletal: leg pain Objective Exam Vital Signs Vital Signs Date Time Temp Pulse Resp B/P (MAP) Pulse Ox O2 Delivery O2 Flow Rate FiO2 03/07/21 15:47 36.8 57 20 118/62 (80) 98 Room Air Capillary Refill : Less Than 3 Seconds General Appearance: No Apparent Distress, WD/WN, Chronically ill, Obese Respiratory: Lungs Clear, Normal Breath Sounds Cardiovascular: Regular Rate, Rhythm Extremity: Other (Improved erythema) Neurologic/Psychiatric: Alert, Oriented x3, No Motor/Sensory Deficits, Normal Mood/Affect Results/Procedures Lab Laboratory Tests 03/07/21 07:15 Patient resulted labs reviewed. Assessment/Plan Assessment and Plan Assess & Plan/Chief Complaint Assessment: Severe complicated left leg cellulitis Super morbid obesity Chronic lymphedema Plan: IV antibiotics 03/07/2021: Supportive care and IV antibiotics ALTHEA NEWMAN DO Mar 07, 2021 10:52
[2021-03-07 15:47] VITALS: BP 118/62
[2021-03-07] MEDS: AMITRIPTYLINE 50 MG (ELAVIL) TAB PO SCH (21:16)
[2021-03-07] MEDS: GABAPENTIN 600 MG (NEURONTIN) TAB PO PRN (21:51)
[2021-03-07 23:30] VITALS: BP 112/69
[2021-03-08] MEDS: HYDROcodone/APAP 5 MG/325 MG (LORTAB) TAB PO PRN ×4 (00:39→23:34)
[2021-03-08] MEDS: PIPERACILLIN/TAZOBACTAM (BULK) 4.5 GM in NS (IVPB) 100 ML IV SCH (00:39)
[2021-03-08] MEDS: inSUlin ASPART (NovoLOG) 1 UNIT/0.01 ML (CHARGE PER UNIT) SC SCH ×4 (05:59→20:47)
[2021-03-08 07:30] VITALS: BP 118/71
[2021-03-08 07:47] LABS: BASOPHILS # (AUTO) 0.1 10^3/uL (0.0-0.1); BASOPHILS % (AUTO) 1 % (0-10); EOSINOPHILS # (AUTO) 0.2 10^3/uL (0.0-0.3); EOSINOPHILS % (AUTO) 4 % (0-10); HEMATOCRIT 37 % (35-52); HEMOGLOBIN 12.1 g/dL (11.5-16.0); LYMPHOCYTES # (AUTO) 1.7 10^3/uL (1.0-4.0); LYMPHOCYTES % (AUTO) 43 % (12-44); MEAN CORPUSCULAR HEMOGLOBIN 36 pg (25-34); MEAN CORPUSCULAR HGB CONC 33 g/dL (32-36); MEAN CORPUSCULAR VOLUME 108 fL (80-99); MEAN PLATELET VOLUME 8.8 fL (9.0-12.2); MONOCYTES # (AUTO) 0.4 10^3/uL (0.0-1.0); MONOCYTES % (AUTO) 10 % (0-12); NEUTROPHILS # (AUTO) 1.6 10^3/uL (1.8-7.8); NEUTROPHILS % (AUTO) 41 % (42-75); PLATELET COUNT 279 10^3/uL (130-400); WHITE BLOOD COUNT 3.9 10^3/uL (4.3-11.0)
[2021-03-08 08:09] LABS: ALBUMIN 3.2 GM/DL (3.2-4.5); BILIRUBIN,TOTAL 0.5 MG/DL (0.1-1.0); CALCIUM 8.6 MG/DL (8.5-10.1); CREATININE SERUM 1.25 MG/DL (0.60-1.30); POTASSIUM 4.5 MMOL/L (3.6-5.0); TOTAL PROTEIN 6.2 GM/DL (6.4-8.2)
[2021-03-08] MEDS: FLUoxetine HCL 20 MG (PROzac) CAP PO SCH ×2 (09:05→20:46)
[2021-03-08] MEDS: ENOXAPARIN 40 MG/0.4 ML (LOVENOX) SYR SQ SCH ×2 (09:05→20:47)
[2021-03-08] MEDS: ASPIRIN E.C. 81 MG (ECOTRIN) TAB PO SCH (09:05)
[2021-03-08] MEDS: NYSTATIN CREAM (MYCOSTATIN) 30 GM TUBE TP SCH ×3 (09:06→20:47)
[2021-03-08] MEDS: TRIAMCINOLONE 0.1% CR (KENALOG) 15 GM TUBE TOP SCH ×2 (09:06→20:47)
--- NOTE | 2021-03-08 09:29 | Occupational Ther Daily Note ---
OT Current Status-Daily Note Subjective Pt reports pain as 9/10 in LLE. RN notified. Appearance Remained supine in bed. all needs within reach. ADL-Treatment Therapy Code Descriptions/Definitions Functional [place] Measure: 0=Not Assessed/NA 4=Minimal Assistance 1=Total Assistance 5=Supervision or Setup 2=Maximal Assistance 6=Modified [place] 3=Moderate Assistance 7=Complete IndependenceSCALE: Activities may be completed with or without assistive devices. 5-Pbqktkcpfj-ekiaarc completes the activity by him/herself with no assistance from a helper. 5-Set-up or Clean-up Assistance-helper sets up or cleans up; patient completes activity. [place] assists only prior to or following the activity. 4-Supervision or Touching Assistance-helper provides verbal cues and/or touching/steadying and/or contact guard assistance as patient completes activity. Assistance may be provided throughout the activity or intermittently. 3-Partial/Moderate Assistance-helper does LESS THAN HALF the effort. [place] lifts, holds or supports trunk or limbs, but provides less than half the effort. 2-Substantial/Maximal Assistance-helper does MORE THAN HALF the effort. [place] lifts or holds trunk or limbs and provides more than half the effort. 1-Jyrvfqlkc-lxilvw does ALL the effort. Patient does none of the effort to complete the activity. Or, the assistance of 2 or more helpers is required for the patient to complete the activity. If activity was not attempted, code reason: 7-Patient Refused. 9-Not Applicable-not attempted and the patient did not perform the activity before the current illness, exacerbation or injury. 10-Not Attempted due to Environmental Limitations-(lack of equipment, weather restraints, etc.). 88-Not Attempted due to Medical Conditions or Safety Concerns. Other Treatment Pt refused all OOB/EOB activities due to c/o pain in LLE. Does not appear to be in any distress. Requires encouragement to participate in bed level exercises. Pt completed UE exercises with goal to increase strength and endurance needed for adls and transfers. 10x1 in all planes. Pt often stopping after 5-6 reps, requires cues to continue until completion. Attempt at having pt count reps out loud,but then she speeds through and requires cues to slow pace. Very little effort presented by patient. Able to complete all movements through full range. Education OT Patient Education: Correct positioning, Exercise program, Purpose of tx/functional activities, Rehab process Teaching Recipient: Patient Teaching Methods: Discussion Response to Teaching: Reinforcement Needed OT Hogshead Dumper Goals [facility] Goals Time Frame: Mar 12, 2021 Oral Hygiene (QC): 5 Toileting Hygiene (QC): 4 Upper Body Dressing (QC): 5 Lower Body Dressing (QC): 4 On/Off Footwear (QC): 3 1=Demonstrate adherence to instructed precautions during ADL tasks. 2=Patient will verbalize/demonstrate understanding of assistive devices/modifications for ADL. 3=Patient will improve strength/tolerance for activity to enable patient to perform ADL's. OT Education/Plan Problem List/Assessment Assessment: Decreased Activ Tolerance, Decreased UE Strength, Edema, Impaired I ADL's, Impaired Self-Care Skills Discharge Recommendations Plan/Recommendations: Continue POC Treatment Plan/Plan of Care Treatment,Training & Education: Yes Patient would benefit from OT for education, treatment and training to promote independence in ADL's, mobility, safety and/or upper extremity function for ADL's. Plan of Care: ADL Retraining, Functional Mobility, UE Funct Exercise/Act Treatment Duration: Mar 12, 2021 Frequency: 5 times per week Estimated Hrs Per Day: .25 hour per day Agreement: Yes Rehab Potential: Fair Time/GCodes Start Time: 08:16 Stop Time: 08:26 Total Time Billed (hr/min): 10 Billed Treatment Time 1 visit EX Kiera Rausch OT Mar 08, 2021 09:29
[2021-03-08] MEDS: VANCOMYCIN 1500 MG/NS 500 ML IVPB IV SCH ×2 (11:43)
--- NOTE | 2021-03-08 12:36 | Progress Note ---
Subjective Subjective/Events-last exam Afebrile, states her leg is continuing to improve. Objective Exam Last Set of Vital Signs Vital Signs Date Time Temp Pulse Resp B/P (MAP) Pulse Ox O2 Delivery O2 Flow Rate FiO2 03/08/21 07:30 36.3 78 20 118/71 (87) 98 Room Air Capillary Refill : Less Than 3 Seconds I&O Intake and Output 03/07/21 23:59 Intake Total 2785 ml Output Total 800 ml Balance 1985 ml Intake Oral 2030 ml IV Total 755 ml Output Urine Total 800 ml # Voids 10 General: Alert, No Acute Distress Lungs: Clear to Auscultation, Normal Air Movement Heart: Regular Rate, No Murmurs Extremities: Other (left lower leg with edema and erythema that has receded from drawn lines, has some posterior calf petechiae and anteriorly large dark area where bulla was previuosly, 2+ pedal pulse bilaterally) Neuro: Normal Speech Psych/Mental Status: Mood NL Results/Procedures Lab Laboratory Tests 03/07/21 15:53: Glucometer 146H 03/07/21 19:54: Glucometer 165H 03/08/21 05:11: Glucometer 131H 03/08/21 07:40: White Blood Count 3.9L, Red Blood Count 3.40L, Hemoglobin 12.1, Hematocrit 37, Mean Corpuscular Volume 108H, Mean Corpuscular Hemoglobin 36H, Mean Corpuscular Hemoglobin Concent 33, Red Cell Distribution Width 13.2, Platelet Count 279, Mean Platelet Volume 8.8L, Immature Granulocyte % (Auto) 0, Neutrophils (%) (Auto) 41L, Lymphocytes (%) (Auto) 43, Monocytes (%) (Auto) 10, Eosinophils (%) (Auto) 4, Basophils (%) (Auto) 1, Neutrophils # (Auto) 1.6L, Lymphocytes # (Auto) 1.7, Monocytes # (Auto) 0.4, Eosinophils # (Auto) 0.2, Basophils # (Auto) 0.1, Immature Granulocyte # (Auto) 0.0, Sodium Level 136, Potassium Level 4.5, Chloride Level 102, Carbon Dioxide Level 23, Anion Gap 11, Blood Urea Nitrogen 18, Creatinine 1.25, Estimat Glomerular Filtration Rate 43, BUN/Creatinine Ratio 14, Glucose Level 140H, Calcium Level 8.6, Corrected Calcium 9.2, Total Bilirubin 0.5, Aspartate Amino Transf (AST/SGOT) 19, Alanine Aminotransferase ( ALT/SGPT) 19, Alkaline Phosphatase 42, Total Protein 6.2L, Albumin 3.2 03/08/21 11:00: Glucometer 280H Radiology Date of Exam:02/24/21 US VENOUS LOWER EXT LT PROCEDURE: US left lower extremity venous. TECHNIQUE: Multiple real-time grayscale images were obtained over the left lower extremity in various projections. Additional duplex Doppler and color Doppler images were also obtained. INDICATION: Swollen red lower extremity. While there is no visualized left lower extremity venous thrombus, compressibility was limited at the mid and lower thigh as well as beyond and augmentation maneuvers could not be performed owing to intolerability. We can see color Doppler blood flow throughout the left lower activity arterial system and no demonstrated thrombus. Impression: Limited by swelling and pain, precluding compressibility and augmentation of the mid to lower venous structures however color Doppler blood flow is preserved and no thrombus or occlusive segment identified. Dictated by: Dictated on workstation # [id number] Dict: 02/24/21 0835 Trans: 02/24/21 172 [facility] [id number] Interpreted by: DAYANA RODRIGUEZ Electronically signed by: DAYANA RODRIGUEZ 02/24/21 1724 Assessment/Plan Assessment/Plan (1) Cellulitis of left lower extremity Status: Acute Assessment & Plan: 02/24: Doppler neg for DVT, continue IV antibiotics, elevation when in bed 03/08: continues to improve, has completed course of zosyn and is on vancomycin, awaiting wound care recommendations for ruptured bullae area. 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
[2021-03-08 15:30] VITALS: BP 109/66
[2021-03-08] MEDS: AMITRIPTYLINE 50 MG (ELAVIL) TAB PO SCH (20:46)
[2021-03-08 23:20] VITALS: BP 119/75
[2021-03-09] MEDS: inSUlin ASPART (NovoLOG) 1 UNIT/0.01 ML (CHARGE PER UNIT) SC SCH ×2 (05:52→10:55)
[2021-03-09] MEDS: HYDROcodone/APAP 5 MG/325 MG (LORTAB) TAB PO PRN ×2 (05:52→12:32)
[2021-03-09 06:27] LABS: HEMATOCRIT 35 % (35-52); HEMOGLOBIN 11.5 g/dL (11.5-16.0); MEAN CORPUSCULAR HEMOGLOBIN 35 pg (25-34); MEAN CORPUSCULAR HGB CONC 33 g/dL (32-36); MEAN CORPUSCULAR VOLUME 106 fL (80-99); PLATELET COUNT 278 10^3/uL (130-400); WHITE BLOOD COUNT 3.7 10^3/uL (4.3-11.0)
[2021-03-09 06:46] LABS: CALCIUM 8.5 MG/DL (8.5-10.1); CREATININE SERUM 1.04 MG/DL (0.60-1.30)
[2021-03-09 08:12] VITALS: BP 143/64
[2021-03-09] MEDS: FLUoxetine HCL 20 MG (PROzac) CAP PO SCH (08:23)
[2021-03-09] MEDS: ASPIRIN E.C. 81 MG (ECOTRIN) TAB PO SCH (08:23)
[2021-03-09] MEDS: ENOXAPARIN 40 MG/0.4 ML (LOVENOX) SYR SQ SCH (08:23)
[2021-03-09] MEDS: NYSTATIN CREAM (MYCOSTATIN) 30 GM TUBE TP SCH ×2 (08:29→12:32)
[2021-03-09] MEDS: GABAPENTIN 600 MG (NEURONTIN) TAB PO PRN (08:29)
[2021-03-09] MEDS: TRIAMCINOLONE 0.1% CR (KENALOG) 15 GM TUBE TOP SCH (08:30)
[2021-03-09] MEDS ORDERED: TROUGH ORDER-PHARMACY XX ONE (09:00)
--- NOTE | 2021-03-09 10:12 | Occ Therapy Progress Note ---
Therapy Progress Note Pt sitting in recliner watching TV. DUÁRN introduced self and pt acknowledged. Attempted to engage pt in complete ADLs then pt stated that she is going home today. DURÁN asked if pt had any questions or concerns about ADLs or lower body dressing. Pt stated that she had no concerns and did not need OT. DURÁN educated pt on where to purchase lower body dressing equipment if pt changed her mind. 1 refusal [id number] JACI PARRA Mar 09, 2021 10:12
--- NOTE | 2021-03-09 12:06 | D/C HH Face to Face Order ---
D/C Face to Face Orders Instructions for Patient Via [facility], Patient Instructions/FollowUp: Follow up with primary physician within one week of discharge. Physician to follow Patient: Vimal Discharge Diet for Home: ADA Diet Patient Problems: Cellulitis with ruptured bullae Diabetes Hypertension Obesity Coronary Artery Disease Patient Data-Allergies,Ht & Wt Patient Allergies: Uncoded Allergies: IV CONTRAST (Adverse Reaction, Mild, HIVES, 09/17/18) Height (Feet): 5 Height (Inches): 6.00 Weight (Pounds): 290 Weight (Ounces): 1.0 Home Health Need/Face to Face Date of Face to Face: Mar 09, 2021 Clinical Findings: Pain with ambulation I have seen Pt [id number]: Yes Discharged To: Home Diagnosis/Conditions: See patient problems Patient is Homebound due to: Pain w/ambulation Homebound Status Due to the above stated illness, injury or surgical procedure (medical condition or diagnosis) and associated clinical findings, the patient is homebound because of his/her inability to leave home except with aid of a supportive device and/or person AND leaving the home requires a considerable and taxing effort or is medically contraindicated. Pt req the following assistanc: Aid of another person Home Health Nursing Orders Home Health Services Order: Nursing Services, Physical Therapy-Evaluate & Treat, Wound Care-Eval/Treat Cleanse wound with saline, pat dry apply aquacel with gauze and secure with roller gauze daily. Certify Stmt I certify that this patient is under my care and that I, a nurse practitioner or a physician; a fast food sales assistant working with me, had a face to face encounter that - meets the physician face to face encounter requirements with this patient as dated. CORNELIA MARQUEZ MD Mar 09, 2021 12:04
[2021-03-09 14:44] VITALS: BP 143/64
--- NOTE | 2021-03-09 15:55 | Discharge Summary ---
Discharge Summary Hospital Course Problems/Diagnosis: (1) Cellulitis of left lower extremity Status: Acute Assessment & Plan: 02/24: Doppler neg for DVT, continue IV antibiotics, elevation when in bed 03/08: continues to improve, has completed course of zosyn and is on vancomycin, awaiting wound care recommendations for ruptured bullae area. 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 (4) HTN (hypertension) Status: Chronic Assessment & Plan: - Continue home meds (5) Morbid obesity Status: Acute Hospital Course Date of Admission: Feb 22, 2021 at 16:47 Admission Diagnosis : Family Physician/Provider: Joi/Charli,[facility] Date of Discharge: 03/09/21 Discharge Diagnosis: See problem list Hospital Course: See problem list Labs and Pending Lab Test: Laboratory Tests 03/08/21 20:39: Glucometer 163H 03/09/21 05:21: Glucometer 128H 03/09/21 05:24: White Blood Count 3.7L, Red Blood Count 3.29L, Hemoglobin 11.5, Hematocrit 35, Mean Corpuscular Volume 106H, Mean Corpuscular Hemoglobin 35H, Mean Corpuscular Hemoglobin Concent 33, Red Cell Distribution Width 12.8, Platelet Count 278, Mean Platelet Volume 9.0, Sodium Level 136, Potassium Level 4.0, Chloride Level 102, Carbon Dioxide Level 22, Anion Gap 12, Blood Urea Nitrogen 17, Creatinine 1.04, Estimat Glomerular Filtration Rate 53, BUN/Creatinine Ratio 16, Glucose Level 138H, Calcium Level 8.5 03/09/21 10:50: Glucometer 166H Home Meds Active Reported Hair, Skin & Nails Caplet (Multivit-Min/Folic Acid/Biotin) 1 Each Tablet 1 Each PO DAILY Tylenol Extra Strength (Acetaminophen) 500 Mg Tablet 1,000 Mg PO Q8H PRN Amitriptyline HCl 50 Mg Tablet 50 Mg PO HS Aspirin EC (Aspirin) 81 Mg Tablet.dr 81 Mg PO DAILY Fluoxetine HCl 40 Mg Capsule 40 Mg PO BID Tramadol HCl 50 Mg Tablet 50 Mg PO TID PRN Ibuprofen 800 Mg Tablet 800 Mg PO TID PRN Gabapentin 600 Mg Tablet 600 Mg PO TID PRN Metformin HCl 1,000 Mg Tablet 1,000 Mg PO BID Losartan Potassium 50 Mg Tablet 50 Mg PO DAILY Oxybutynin Chloride 5 Mg Tablet 5 Mg PO TID PRN Assessment/Pt DC Instructions Discharged with home health. Discharge Diet: ADA Diet Activity as Tolerated: Yes Discharge Physical Examination Allergies: Uncoded Allergies: IV CONTRAST (Adverse Reaction, Mild, HIVES, 09/17/18) General Appearance: No Apparent Distress Respiratory: Lungs Clear, Normal Breath Sounds Cardiovascular: Regular Rate, Rhythm, No Murmur Extremity: Other (erythema of left lower leg continues to recede from lines, area of bullae wrapped in gauze with no drainage) Neurologic/Psychiatric: Alert, Normal Mood/Affect CORNELIA MARQUEZ MD Mar 09, 2021 15:55
--- NOTE | 2021-03-15 14:24 | Physician Query Clarification ---
PQ-Uncertain Diagnosis Admission/Discharge Admission Date: Feb 22, 2021 at 16:47 Discharge Date: Mar 09, 2021 at 14:44 Dr. Lewis, The medical record reflects the following clinical scenario: History/Risk Factors: Cellulitis LLE, ELEANOR Clinical Findings: Lactic acid 2.97, WBC 11.1, T 38.0, P 95, R 17, BP 125/57 Treatment: IV Ceftriazone, IV Vancomycin, IV Piperacillin Question: Is sepsis a clinically valid diagnosis? Sepsis was documented in the ER record and Wound note with no further documentation in the medical record. Please document a response in Progress Note or Discharge Summary. 1. Yes, clinically valid, condition resolved. 2. No, condition ruled out. 3. Other, with explanation of clinical findings. 4. Undetermined, no explanation for clinical findings. PHYSICIAN RESPONSE Diagnosis clinically valid: Yes, Conditon resolved Please remember a lack of response to the above will prompt a phone page by CDI/Coding staff. In responding to this query, please exercise your independent professional judgment. The purpose of this communication is to more accurately reflect the complexity of your patients condition. The fact that a question is asked does not imply that any particular answer is desired or expected. Thank you for your timely response to this clarification. Requestors name: Cain THIS PHYSICIAN QUERY FORM IS A PERMANENT PART OF THE MEDICAL RECORD CAIN JORDAN Mar 15, 2021 14:24 CORNELIA LEWIS MD Mar 19, 2021 02:08
== END 2021-03-09 14:44 | disposition home health service (06) | DRG 872 ==
LOC: EDUNIT# 13:10 → ER FS 13:11 → 4TH 16:47
PROVIDERS: ADMIT Family Medicine; ATTEND Family Medicine
DX: A41.9 Sepsis, unspecified organism (principal); L03.116 Cellulitis of left lower limb; N17.9 Acute kidney failure, unspecified; Z68.42 Body mass index [BMI] 45.0-49.9, adult; I69.351 Hemiplegia and hemiparesis following cerebral infarction affecting right dominant side; R23.8 Other skin changes; I87.2 Venous insufficiency (chronic) (peripheral); E66.01 Morbid (severe) obesity due to excess calories; I10 Essential (primary) hypertension; J44.9 Chronic obstructive pulmonary disease, unspecified; E78.00 Pure hypercholesterolemia, unspecified; E11.40 Type 2 diabetes mellitus with diabetic neuropathy, unspecified; Z79.84 Long term (current) use of oral hypoglycemic drugs; E11.65 Type 2 diabetes mellitus with hyperglycemia; M17.10 Unilateral primary osteoarthritis, unspecified knee; F32.A Depression, unspecified; F17.210 Nicotine dependence, cigarettes, uncomplicated; Z91.041 Radiographic dye allergy status; Z79.82 Long term (current) use of aspirin
CPT/HCPCS: 36415; 80048; 80053; 80202; 82947; 83036; 83605; 85007; 85025; 85027; 96374; 99284

== ENCOUNTER → 2021-04-14 | Outpatient (CLI) | payer MEDICAID ==
[~2021-04-14] MED LIST changes: +ACET-2267 PO; +MULT-1018 PO
[2021-04-14 17:48] LABS: BILIRUBIN,URINE NEGATIVE (NEGATIVE); CLARITY,URINE CLEAR; COLOR,URINE YELLOW; GLUCOSE, URINE (UA) NEGATIVE (NEGATIVE); KETONES,URINE NEGATIVE (NEGATIVE); LEUKOCYTE ESTERASE ,URINE NEGATIVE (NEGATIVE); NITRITE,URINE POSITIVE (NEGATIVE); PROTEIN,URINE 2+ (NEGATIVE)
[2021-04-14 17:53] LABS: BACTERIA,URINE LARGE /HPF; SQUAMOUS EPITHELIAL CELL,UR RARE /HPF
== END ==
LOC: IHC 17:35
PROVIDERS: ATTEND Internal Medicine
DX: R82.90 Unspecified abnormal findings in urine (principal)
CPT/HCPCS: 81000; 87088

== ENCOUNTER 2021-04-20 13:34 | Emergency (ER) | payer MEDICAID ==
[2021-04-20 13:34] VITALS: BP 145/70
[~2021-04-20 13:34] MED LIST changes: -FLT11013 IH
--- NOTE | 2021-04-20 13:42 | ED Dyspnea ---
General Stated Complaint: SOB; COVID+ Source of Information: Patient, EMS Exam Limitations: No Limitations History of Present Illness Date Seen by Provider: Apr 20, 2021 Time Seen by Provider: 13:35 Initial Comments 65-year-old female with past medical history of diabetes, hypertension, hyperlipidemia, CAD without stenting coming in via EMS from home due to shortness of breath. She began having a cough last Monday and became positive for COVID on after testing. Cough has progressed, is nonproductive, and she is feeling more short of breath specifically with exertion this week. Her home health nurse was concerned that she had pneumonia in her lungs so referred her here. No fevers, vomiting, recent diarrhea, rash, or any other concerns. She is saying she is having some chest discomfort associated with this which has been constant going on for the past week. Otherwise denying any other acute complaints. Allergies and Home Medications Allergies Uncoded Allergies: IV CONTRAST (Adverse Reaction, Mild, HIVES, 09/17/18) Patient Home Medication List Home Medication List Reviewed: Yes Acetaminophen (Tylenol Extra Strength) 500 Mg Tablet, 1,000 MG PO Q8H PRN for PAIN-MILD (1-4), (Reported) Entered as Reported by: DOYLE CARRILLO on 02/23/21 1035 Amitriptyline HCl (Amitriptyline HCl) 50 Mg Tablet, 50 MG PO HS, (Reported) Entered as Reported by: DOYLE CARRILLO on 02/23/21 1035 Aspirin (Aspirin EC) 81 Mg Tablet.dr, 81 MG PO DAILY, (Reported) Entered as Reported by: NERIS PRIETO on 10/26/20 0851 Fluoxetine HCl (Fluoxetine HCl) 40 Mg Capsule, 40 MG PO BID, (Reported) Entered as Reported by: NERIS PRIETO on 10/26/20 0851 Fluticasone Propionate (Flovent Hfa 110 mcg) 1 Ea Aero, 2-4 PUFF IH BID Prescribed by: CRISTY MCKINLEY on 04/20/21 1443 Gabapentin (Gabapentin) 600 Mg Tablet, 600 MG PO TID PRN for NERVE PAIN, (Reported) Entered as Reported by: MINESH CANALES on 09/17/18 1847 Ibuprofen (Ibuprofen) 800 Mg Tablet, 800 MG PO TID PRN for PAIN-MILD (1-4), (Reported) Entered as Reported by: STACIE BERNAL on 05/15/19 1015 Losartan Potassium (Losartan Potassium) 50 Mg Tablet, 50 MG PO DAILY, (Reported) Entered as Reported by: MINESH CANALES on 09/17/181846 Metformin HCl (Metformin HCl) 1,000 Mg Tablet, 1,000 MG PO BID, (Reported) Entered as Reported by: MINESH CANALES on 09/17/181846 Multivit-Min/Folic Acid/Biotin (Hair, Skin & Nails Caplet) 1 Each Tablet, 1 EACH PO DAILY, (Reported) Entered as Reported by: DOYLE CARRILLO on 02/23/21 1035 Oxybutynin Chloride (Oxybutynin Chloride) 5 Mg Tablet, 5 MG PO TID PRN for BLADDER SPASMS, (Reported) Entered as Reported by: MINESH CANALES on 09/17/181846 Tramadol HCl (Tramadol HCl) 50 Mg Tablet, 50 MG PO TID PRN for PAIN-MODERATE (5- 7), (Reported) Entered as Reported by: NERIS PRIETO on 10/26/20 0851 Review of Systems Review of Systems Constitutional: No chills, No fever EENTM: No blurred vision Respiratory: cough, dyspnea on exertion, short of breath Cardiovascular: chest pain Gastrointestinal: No abdominal pain, No diarrhea, No nausea, No vomiting Genitourinary: dysuria Musculoskeletal: no symptoms reported Skin: no symptoms reported Psychiatric/Neurological: No Symptoms Reported Endocrine: No Symptoms Reported Hematologic/Lymphatic: No Symptoms Reported All Other Systems Reviewed Negative Unless Noted: Yes Past Zlgquzc-Gjeveo-Wvzsln Hx Patient Social History Tobacco Use?: No Smoking Status: Former Smoker Immunizations Up To Date Tetanus Booster (TDap): Unknown First/Initial COVID19 Vaccinat: NA Second COVID19 Vaccination Get: NA Third COVID19 Vaccination Date: NA Seasonal Allergies Seasonal Allergies: No Past Medical History Surgery/Hospitalization HX: MRSA APPY C Section Bladder Surgery Stroke with R side residual Cataracts Dilation Urethral structurre HTN Cheek Cellulitis Surgeries: Yes (cystoscopies) Appendectomy, Bladder Surgery, Section, Gallbladder, Tonsillectomy Respiratory: Yes COPD Cardiac: Yes High Cholesterol, Hypertension Neurological: Yes Neuropathy, Stroke Genitourinary: Yes (urethral strictures) UTI-Chronic Gastrointestinal: Yes Gall Bladder Disease Musculoskeletal: Yes Arthritis, Chronic Back Pain Endocrine: Yes Diabetes, Insulin dep HEENT: Yes (decreasing vision with age and due to DM) Hearing Impairment: Denies Cancer: No Psychosocial: No Depression Integumentary: Yes (L ORBITAL CELLULITIS, 2018 CHEEK CELLULITIS) Recent Skin Changes Blood Disorders: No Family Medical History Patient reports no known family medical history. Diabetes, Hypertension Physical Exam Vital Signs Vital Signs - First Documented 04/20/21 13:34 Temp 36.0 Pulse 90 Resp 20 B/P (MAP) 145/70 (95) Pulse Ox 97 O2 Delivery Room Air Capillary Refill : Height, Weight, BMI Height: 5'6.00" Weight: 290lbs. 1.0oz. 131.150482hb; 43.06 BMI Method:Stated General Appearance: No Apparent Distress, WD/WN HEENT: PERRL/EOMI, Normal ENT Inspection, Pharynx Normal Neck: Full Range of Motion, Normal Inspection, Non Tender, Supple Respiratory: Chest Non Tender, No Accessory Muscle Use, No Respiratory Distress, Rales Cardiovascular: Regular Rate, Rhythm, Normal Peripheral Pulses Gastrointestinal: Normal Bowel Sounds, Non Tender, Soft; No Distended, No Guarding Extremity: Normal Inspection, Normal Range of Motion, Non Tender, No Calf Tend erness, Pedal Edema Neurologic/Psychiatric: Alert, No Motor/Sensory Deficits, Normal Mood/Affect Skin: Normal Color, Warm/Dry Lymphatic: No Adenopathy Progress/Results/Core Measures Results/Orders Lab Results Laboratory Tests Test 04/20/21 13:41 04/20/21 13:45 04/20/21 14:15 Range/Units Sodium Level 142 135-145 MMOL/L Potassium Level 4.7 3.6-5.0 MMOL/L Chloride Level 106 98-107 MMOL/L Carbon Dioxide Level 24 21-32 MMOL/L Anion Gap 12 5-14 MMOL/L Blood Urea Nitrogen 30 H 7-18 MG/DL Creatinine 1.21 0.60-1.30 MG/DL Estimat Glomerular Filtration Rate 45 BUN/Creatinine Ratio 25 Glucose Level 158 H 70-105 MG/DL Calcium Level 9.1 8.5-10.1 MG/DL Corrected Calcium 9.0 8.5-10.1 MG/DL Total Bilirubin 0.4 0.1-1.0 MG/DL Aspartate Amino Transf (AST/SGOT) 28 5-34 U/L Alanine Aminotransferase (ALT/SGPT) 32 0-55 U/L Alkaline Phosphatase 62 40-136 U/L Troponin I < 0.30 <0.30 NG/ML Pro-B-Type Natriuretic Peptide 78.6 H <75.0 PG/ML Total Protein 7.1 6.4-8.2 GM/DL Albumin 4.1 3.2-4.5 GM/DL White Blood Count 4.7 4.3-11.0 10^3/uL Red Blood Count 4.23 3.80-5.11 10^6/uL Hemoglobin 14.6 11.5-16.0 g/dL Hematocrit 43 35-52 % Mean Corpuscular Volume 101 H 80-99 fL Mean Corpuscular Hemoglobin 35 H 25-34 pg Mean Corpuscular Hemoglobin Concent 34 32-36 g/dL Red Cell Distribution Width 12.6 10.0-14.5 % Platelet Count 131 130-400 10^3/uL Mean Platelet Volume 9.5 9.0-12.2 fL Immature Granulocyte % (Auto) 0 % Neutrophils (%) (Auto) 41 L 42-75 % Lymphocytes (%) (Auto) 46 H 12-44 % Monocytes (%) (Auto) 10 0-12 % Eosinophils (%) (Auto) 3 0-10 % Basophils (%) (Auto) 0 0-10 % Neutrophils # (Auto) 1.9 1.8-7.8 X 10^3 Lymphocytes # (Auto) 2.2 1.0-4.0 X 10^3 Monocytes # (Auto) 0.5 0.0-1.0 X 10^3 Eosinophils # (Auto) 0.1 0.0-0.3 10^3/uL Basophils # (Auto) 0.0 0.0-0.1 10^3/uL Immature Granulocyte # (Auto) 0.0 0.0-0.1 10^3/uL Urine Color YELLOW Urine Clarity CLOUDY Urine pH 6.0 5-9 Urine Specific [place] >=1.030 1.016-1.022 Urine Protein 2+ H NEGATIVE Urine Glucose (UA) NEGATIVE NEGATIVE Urine Ketones TRACE H NEGATIVE Urine Nitrite POSITIVE H NEGATIVE Urine Bilirubin 1+ H NEGATIVE Urine Urobilinogen 0.2 < = 1.0 MG/DL Urine Leukocyte Esterase 2+ H NEGATIVE Urine RBC (Auto) NEGATIVE NEGATIVE Urine RBC RARE /HPF Urine WBC 50-100 H /HPF Urine Squamous Epithelial Cells 2-5 /HPF Urine Crystals NONE /LPF Urine Bacteria LARGE H /HPF Urine Casts NONE /LPF Urine Mucus NEGATIVE /LPF Urine Culture Indicated YES My Orders Orders - CRISTY MCKINLEY MD Chest 1 View Ap/Pa Only (04/20/21 13:40) Comprehensive Metabolic Panel (04/20/21 13:40) Ua Culture If Indicated (04/20/21 13:40) Probnp Fs (04/20/21 13:40) Troponin I Fs (04/20/21 13:40) Ed Iv/Invasive Line Start (04/20/21 13:40) Ekg Tracing (04/20/21 13:40) Monitor-Rhythm Ecg Trace Only (04/20/21 13:40) Albuterol/Ipra Inhalation Soln (Duoneb I (04/20/21 13:45) Cbc With Automated Diff (04/20/21 13:45) Covid-19 External Lab Results (04/20/21 14:20) Isolation Central Supply Req (04/20/21 14:20) Medications Given in ED Current Medications Medications Dose Ordered Sig/Suzi Route Start Time Stop Time Status Last Admin Dose Admin Albuterol/ Ipratropium 3 ml ONCE ONCE INH 04/20/21 13:45 04/20/21 13:46 DC 04/20/21 13:59 3 ML Vital Signs/I&O 04/20/21 13:34 Temp 36.0 Pulse 90 Resp 20 B/P (MAP) 145/70 (95) Pulse Ox 97 O2 Delivery Room Air Progress Progress Note : Progress Note 65-year-old female that is been diagnosed with COVID now day 7 of symptoms coming in for cough and increasing shortness of breath. ABCs were intact and vitals were stable on presentation. She did have some crackles on exam with so me mild wheezing. Given a DuoNeb treatment with oxygen 100% on room air. She is typically wheelchair-bound but can get around some with a walker. Even with moving around in the room her oxygen stays above 95%. Chest x-ray on my interpretation without any obvious pneumonia or other abnormality. Basic labs reassuring including normal cardiac biomarkers and undetectable troponin. Urinalysis is concerning for infection so she will be given a course of antibiotics. Overall I believe she is stable for discharge with outpatient follow-up. She was sent home with strict return precautions. Initial ECG Impression Date: Apr 20, 2021 Initial ECG Impression Time: 13:35 Initial ECG Rate: 76 Initial ECG Rhythm: Normal Sinus Comment Narrow QRS, borderline left axis deviation, no significant ST changes, some T wave flattening in the high lateral lead aVL Diagnostic Imaging Diagonstic Imaging: Xray Plain Films/CT/US/NM/MRI: chest Comments [facility] [place], [place] NAME: MORALES WALKER [facility] REC#: [id number] PT STATUS: REG ER : 1955 PHYSICIAN: CRISTY MCKINLEY MD ADMIT DATE: 04/20/21/ER FS Signed Date of Exam:04/20/21 CHEST 1 VIEW AP/PA ONLY Indication: Shortness of breath Portable chest 2:00 PM Heart size and pulmonary vascularity are normal. Lungs are clear. There are no effusions or pneumothoraces. IMPRESSION: Negative chest Dictated by: Dictated on workstation # [id number] Dict: 04/20/21 1414 Trans: 04/20/21 1414 TCB [id number] Interpreted by: CATHIE PIKE MD Electronically signed by: CATHIE PIKE MD 04/20/21 1414 Departure Impression Primary Impression: COVID-19 Additional Impressions: UTI (urinary tract infection) Qualified Codes: N30.00 - Acute cystitis without hematuria Dyspnea Qualified Codes: R06.00 - Dyspnea, unspecified Disposition: 01 HOME, SELF-CARE Condition: Stable Departure-Patient Inst. Decision time for Depature: 14:56 Referrals: KATIE HUDSON MD (PCP/Family) Primary Care Physician Patient Instructions: COVID-19 ED, Urinary Tract Infection, Adult (DC) Add. Discharge Instructions: You were seen in the emergency department after you were diagnosed with COVID and are short of breath. Your chest x-ray is clear and it does not look like you have pneumonia at this time. I have sent a prescription steroid inhaler that you can use which in some studies has been helping people with COVID get better sooner. Please call your regular doctor and follow-up within the next several days especially if you are not feeling better. I recommend buying a pulse oximeter at a pharmacy near you to check your oxygen, and if it is below 90 and you are unable to get it to at least 90% then come back to the ER. You do have a urinary tract infection for which AN antibiotic was also sent to your pharmacy. You at the first dose of the antibiotic in the emergency department so you will not be due for another dose for 12 hours. Scripts Cefdinir (Cefdinir) 300 Mg Capsule 300 MG PO BID for 7 Days, #14 CAP 0 Refills Prov: CRISTY MCKINLEY MD 04/20/21 Fluticasone Propionate (Flovent Hfa 110 mcg) 1 Ea Aero 2-4 PUFF IH BID for 14 Days, #1 EA Prov: CRISTY MCKINLEY MD 04/20/21 CRISTY MCKINLEY MD Apr 20, 2021 13:42
[2021-04-20] MEDS ORDERED: RT-ALBUTEROL/IPRATROPIUM 3 ML (DUONEB) VIAL INH ONE (13:45)
--- NOTE | 2021-04-20 14:16 | Diagnostic Imaging Report ---
Indication: Shortness of breath Portable chest 2:00 PM Heart size and pulmonary vascularity are normal. Lungs are clear. There are no effusions or pneumothoraces. IMPRESSION: Negative chest Dictated by: Dictated on workstation # [id number]
[2021-04-20 14:21] LABS: HEMATOCRIT 43 % (35-52); HEMOGLOBIN 14.6 g/dL (11.5-16.0); MEAN CORPUSCULAR HEMOGLOBIN 35 pg (25-34); MEAN CORPUSCULAR VOLUME 101 fL (80-99); WHITE BLOOD COUNT 4.7 10^3/uL (4.3-11.0)
[2021-04-20 14:22] LABS: BASOPHILS % (AUTO) 0 % (0-10); EOSINOPHILS # (AUTO) 0.1 10^3/uL (0.0-0.3); EOSINOPHILS % (AUTO) 3 % (0-10); LYMPHOCYTES # (AUTO) 2.2 X 10^3 (1.0-4.0); LYMPHOCYTES % (AUTO) 46 % (12-44); MEAN CORPUSCULAR HGB CONC 34 g/dL (32-36); MEAN PLATELET VOLUME 9.5 fL (9.0-12.2); MONOCYTES # (AUTO) 0.5 X 10^3 (0.0-1.0); MONOCYTES % (AUTO) 10 % (0-12); NEUTROPHILS # (AUTO) 1.9 X 10^3 (1.8-7.8); NEUTROPHILS % (AUTO) 41 % (42-75); PLATELET COUNT 131 10^3/uL (130-400)
[2021-04-20 14:31] LABS: ALANINE AMINOTRANSFERASE 32 U/L (0-55); ALKALINE PHOSPHATASE 62 U/L (40-136); BILIRUBIN,TOTAL 0.4 MG/DL (0.1-1.0); BUN/CREATININE RATIO 25; CALCIUM 9.1 MG/DL (8.5-10.1); CARBON DIOXIDE 24 MMOL/L (21-32); CHLORIDE 106 MMOL/L (98-107); CREATININE SERUM 1.21 MG/DL (0.60-1.30); GFR ESTIMATED 45; GLUCOSE 158 MG/DL (70-105); POTASSIUM 4.7 MMOL/L (3.6-5.0); SODIUM 142 MMOL/L (135-145)
[2021-04-20 14:32] LABS: ALBUMIN 4.1 GM/DL (3.2-4.5); TOTAL PROTEIN 7.1 GM/DL (6.4-8.2)
[2021-04-20] MEDS ORDERED: FLT11013 IH (14:43)
[2021-04-20 14:47] LABS: BILIRUBIN,URINE 1+ (NEGATIVE); CLARITY,URINE CLOUDY; COLOR,URINE YELLOW; GLUCOSE, URINE (UA) NEGATIVE (NEGATIVE); KETONES,URINE TRACE (NEGATIVE); LEUKOCYTE ESTERASE ,URINE 2+ (NEGATIVE); NITRITE,URINE POSITIVE (NEGATIVE); PROTEIN,URINE 2+ (NEGATIVE)
[2021-04-20 14:53] LABS: BACTERIA,URINE LARGE /HPF; RBC,URINE RARE /HPF; WBC,URINE 50-100 /HPF
[2021-04-20] MEDS ORDERED: CEFD300C3 PO (14:56)
[2021-04-20] MEDS ORDERED: CEFDINIR 300 MG (OMNICEF) CAP PO ONE (15:00)
== END 2021-04-20 15:33 | disposition home or self-care (01) ==
LOC: EDUNIT# 13:34 → ER FS 13:36
DX: U07.1 COVID-19 (principal); N39.0 Urinary tract infection, site not specified; R06.00 Dyspnea, unspecified; J44.9 Chronic obstructive pulmonary disease, unspecified; I10 Essential (primary) hypertension; F32.9 Major depressive disorder, single episode, unspecified; E11.9 Type 2 diabetes mellitus without complications; Z86.73 Personal history of transient ischemic attack (TIA), and cerebral infarction without residual deficits; Z87.891 Personal history of nicotine dependence; Z79.82 Long term (current) use of aspirin; Z79.899 Other long term (current) drug therapy
CPT/HCPCS: 36415; 71045; 80053; 81000; 83880; 84484; 85025; 87077; 87088; 87186; 93005; 93041

== ENCOUNTER → 2021-04-20 | Outpatient (CLI) | payer MEDICAID ==
[~2021-04-20] MED LIST changes: +FLT11013 IH
== END ==
LOC: IHC 13:35
PROVIDERS: ATTEND Internal Medicine
DX: J44.9 Chronic obstructive pulmonary disease, unspecified (principal)
CPT/HCPCS: 83036

== ENCOUNTER 2021-06-21 13:00 | Emergency (ER) | payer MEDICAID ==
[~2021-06-21] VITALS: Ht 167 cm; Wt 130.0 kg
[~2021-06-21 13:00] MED LIST changes: +FLT11013 IH
--- NOTE | 2021-06-21 13:05 | ED Abdominal Pain ---
General Stated Complaint: N/V/D History of Present Illness Date Seen by Provider: Jun 21, 2021 Time Seen by Provider: 13:04 Initial Comments 66 yr F with PMH of cholecystectomy, HTN, DM/ obesity, is here with c/o nausea, vomiting, abdominal pain, for the past 5 days, which has progressively worsening. Pt also c/o dysuria with hematuria sometimes. Pt's last meal was yesterday dinner where she ate spaghetti and meatballs. Pt has not eaten anything today. Denies chest pain, fever, SOB, headache, URI symptoms. No known sick contacts. Allergies and Home Medications Allergies Uncoded Allergies: IV CONTRAST (Adverse Reaction, Mild, HIVES, 09/17/18) Patient Home Medication List Home Medication List Reviewed: Yes Acetaminophen (Tylenol Extra Strength) 500 Mg Tablet, 1,000 MG PO Q8H PRN for PAIN-MILD (1-4), (Reported) Entered as Reported by: DOYLE CARRILLO on 02/23/21 1035 Amitriptyline HCl (Amitriptyline HCl) 50 Mg Tablet, 50 MG PO HS, (Reported) Entered as Reported by: DOYLE CARRILLO on 02/23/21 1035 Aspirin (Aspirin EC) 81 Mg Tablet.dr, 81 MG PO DAILY, (Reported) Entered as Reported by: NERIS PRIETO on 10/26/20 0851 Cefdinir (Cefdinir) 300 Mg Capsule, 300 MG PO BID Prescribed by: CRISTY MCKINLEY on 04/20/21 1456 Fluoxetine HCl (Fluoxetine HCl) 40 Mg Capsule, 40 MG PO BID, (Reported) Entered as Reported by: NERIS PRIETO on 10/26/20 0851 Fluticasone Propionate (Flovent Hfa 110 mcg) 1 Ea Aero, 2-4 PUFF IH BID Prescribed by: CRISTY MCKINLEY on 04/20/21 1443 Gabapentin (Gabapentin) 600 Mg Tablet, 600 MG PO TID PRN for NERVE PAIN, (Reported) Entered as Reported by: MINESH CANALES on 09/17/18 1847 Ibuprofen (Ibuprofen) 800 Mg Tablet, 800 MG PO TID PRN for PAIN-MILD (1-4), (Reported) Entered as Reported by: STACIE BERNAL on 05/15/19 1015 Losartan Potassium (Losartan Potassium) 50 Mg Tablet, 50 MG PO DAILY, (Reported) Entered as Reported by: MINESH CANALES on 09/17/181846 Metformin HCl (Metformin HCl) 1,000 Mg Tablet, 1,000 MG PO BID, (Reported) Entered as Reported by: MINESH CANALES on 09/17/181846 Multivit-Min/Folic Acid/Biotin (Hair, Skin & Nails Caplet) 1 Each Tablet, 1 EACH PO DAILY, (Reported) Entered as Reported by: DOYLE CARRILLO on 02/23/21 1035 Oxybutynin Chloride (Oxybutynin Chloride) 5 Mg Tablet, 5 MG PO TID PRN for BLADDER SPASMS, (Reported) Entered as Reported by: MINESH CANALES on 09/17/181846 Tramadol HCl (Tramadol HCl) 50 Mg Tablet, 50 MG PO TID PRN for PAIN-MODERATE (5- 7), (Reported) Entered as Reported by: NERIS PRIETO on 10/26/20 0851 Review of Systems Review of Systems Constitutional: no symptoms reported EENTM: No Symptoms Reported Respiratory: No Symptoms Reported Cardiovascular: No Symptoms Reported Gastrointestinal: Abdominal Pain, Diarrhea, Nausea, Poor Appetite, Poor Fluid Intake, Vomiting Genitourinary: Burning Musculoskeletal: no symptoms reported Skin: no symptoms reported Psychiatric/Neurological: No Symptoms Reported Endocrine: No Symptoms Reported Hematologic/Lymphatic: No Symptoms Reported Past Bxisdqe-Kgxaag-Joyowv Hx Immunizations Up To Date Tetanus Booster (TDap): Unknown First/Initial COVID19 Vaccinat: NA Second COVID19 Vaccination Get: NA Third COVID19 Vaccination Date: NA Seasonal Allergies Seasonal Allergies: No Past Medical History Surgery/Hospitalization HX: MRSA APPY C Section Bladder Surgery Stroke with R side residual Cataracts Dilation Urethral structurre HTN Cheek Cellulitis Surgeries: Yes (cystoscopies) Appendectomy, Bladder Surgery, Section, Gallbladder, Tonsillectomy Respiratory: Yes COPD Cardiac: Yes High Cholesterol, Hypertension Neurological: Yes Neuropathy, Stroke Genitourinary: Yes (urethral strictures) UTI-Chronic Gastrointestinal: Yes Gall Bladder Disease Musculoskeletal: Yes Arthritis, Chronic Back Pain Endocrine: Yes Diabetes, Insulin dep HEENT: Yes (decreasing vision with age and due to DM) Hearing Impairment: Denies Cancer: No Psychosocial: No Depression Integumentary: Yes (L ORBITAL CELLULITIS, 2018 CHEEK CELLULITIS) Recent Skin Changes Blood Disorders: No Family Medical History Patient reports no known family medical history. Diabetes, Hypertension Physical Exam Vital Signs Vital Signs - First Documented 06/21/21 13:06 Temp 36.4 Pulse 71 Resp 18 B/P (MAP) 138/80 (99) Pulse Ox 96 O2 Delivery Nasal Cannula Capillary Refill : Height/Weight/BMI Height: 5'6.00" Weight: 290lbs. 1.0oz. 131.099530fh; 43.06 BMI Method:Stated General Appearance: WD/WN, mild distress HEENT: PERRL/EOMI, normal ENT inspection, TMs normal Neck: non-tender, full range of motion, supple, normal inspection Respiratory: lungs clear, normal breath sounds Cardiovascular: regular rate, rhythm, no edema Gastrointestinal: normal bowel sounds, soft, no organomegaly, no pulsatile mass, tenderness (suprapubic pain and right sided CVA tenderness) Extremities: normal range of motion Back: normal inspection, no CVA tenderness, no vertebral tenderness Neurologic/Psychiatric: alert, normal mood/affect, oriented x 3 Skin: normal color Lymphatic: no adenopathy Progress/Results/Core Measures Results/Orders Lab Results Laboratory Tests Test 06/21/21 13:05 06/21/21 13:45 06/21/21 13:55 Range/Units White Blood Count 5.0 4.3-11.0 10^3/uL Red Blood Count 4.22 3.80-5.11 10^6/uL Hemoglobin 14.4 11.5-16.0 g/dL Hematocrit 42 35-52 % Mean Corpuscular Volume 99 80-99 fL Mean Corpuscular Hemoglobin 34 25-34 pg Mean Corpuscular Hemoglobin Concent 35 32-36 g/dL Red Cell Distribution Width 12.5 10.0-14.5 % Platelet Count 148 130-400 10^3/uL Mean Platelet Volume 8.8 L 9.0-12.2 fL Immature Granulocyte % (Auto) 0 % Neutrophils (%) (Auto) 62 42-75 % Lymphocytes (%) (Auto) 30 12-44 % Monocytes (%) (Auto) 7 0-12 % Eosinophils (%) (Auto) 1 0-10 % Basophils (%) (Auto) 0 0-10 % Neutrophils # (Auto) 3.1 1.8-7.8 10^3/uL Lymphocytes # (Auto) 1.5 1.0-4.0 10^3/uL Monocytes # (Auto) 0.4 0.0-1.0 10^3/uL Eosinophils # (Auto) 0.1 0.0-0.3 10^3/uL Basophils # (Auto) 0.0 0.0-0.1 10^3/uL Immature Granulocyte # (Auto) 0.0 0.0-0.1 10^3/uL Sodium Level 138 135-145 MMOL/L Potassium Level 4.1 3.6-5.0 MMOL/L Chloride Level 102 98-107 MMOL/L Carbon Dioxide Level 25 21-32 MMOL/L Anion Gap 11 5-14 MMOL/L Blood Urea Nitrogen 25 H 7-18 MG/DL Creatinine 1.09 0.60-1.30 MG/DL Estimat Glomerular Filtration Rate 56 BUN/Creatinine Ratio 23 Glucose Level 195 H 70-105 MG/DL Calcium Level 9.1 8.5-10.1 MG/DL Corrected Calcium 8.9 8.5-10.1 MG/DL Total Bilirubin 0.6 0.1-1.0 MG/DL Aspartate Amino Transf (AST/SGOT) 25 5-34 U/L Alanine Aminotransferase (ALT/SGPT) 25 0-55 U/L Alkaline Phosphatase 47 40-136 U/L Troponin I < 0.30 <0.30 NG/ML Total Protein 7.1 6.4-8.2 GM/DL Albumin 4.2 3.2-4.5 GM/DL Lipase 40 8-78 U/L Urine Color ORANGE Urine Clarity SL CLOUDY Urine pH 6.5 5-9 Urine Specific [place] 1.025 H 1.016-1.022 Urine Protein 2+ H NEGATIVE Urine Glucose (UA) NEGATIVE NEGATIVE Urine Ketones NEGATIVE NEGATIVE Urine Nitrite POSITIVE H NEGATIVE Urine Bilirubin NEGATIVE NEGATIVE Urine Urobilinogen 0.2 < = 1.0 MG/DL Urine Leukocyte Esterase NEGATIVE NEGATIVE Urine RBC (Auto) TRACE-I H NEGATIVE Urine RBC 0-2 /HPF Urine WBC 2-5 /HPF Urine Squamous Epithelial Cells 0-2 /HPF Urine Crystals NONE /LPF Urine Bacteria LARGE H /HPF Urine Casts NONE /LPF Urine Mucus SMALL H /LPF Urine Culture Indicated YES My Orders Orders - ILDEFONSO HU MD Comprehensive Metabolic Panel (06/21/21 13:05) Lipase (06/21/21 13:05) Ua Culture If Indicated (06/21/21 13:05) Ed Iv/Invasive Line Start (06/21/21 13:05) Cbc With Automated Diff (06/21/21 13:05) Ct Abdomen/Pelvis Wo (06/21/21 13:05) Ed Iv/Invasive Line Start (06/21/21 13:05) Ns Iv 1000 Ml (Sodium Chloride 0.9%) (06/21/21 13:15) Troponin I Fs (06/21/21 13:05) Ondansetron Injection (Zofran Injectio (06/21/21 13:45) Coronavirus Sars-Cov-2 So 2019 (06/21/21 13:34) Urine Culture (06/21/21 13:45) Medications Given in ED Current Medications Medications Dose Ordered Sig/Suzi Route Start Time Stop Time Status Last Admin Dose Admin Ondansetron HCl 4 mg ONCE ONCE IVP 06/21/21 13:45 06/21/21 13:46 DC 06/21/21 13:55 4 MG Vital Signs/I&O 06/21/21 13:06 Temp 36.4 Pulse 71 Resp 18 B/P (MAP) 138/80 (99) Pulse Ox 96 O2 Delivery Nasal Cannula Progress Progress Note : Progress Note 1. UTI: - CT ABD: normal - Labs:unremarkable - UA: positive for bacteria, nitrities - NS IVF bolus - Zofran 4mg iv STAT - Prescription for Nitrofurantoin 100mg BID for 7 days Diagnostic Imaging Diagonstic Imaging: CT Plain Films/CT/US/NM/MRI: abdomen Comments [facility] [place] [place], [place] NAME: MORALES WALKER [facility] REC#: [id number] PT STATUS: REG ER : 1955 PHYSICIAN: ILDEFONSO HU MD ADMIT DATE: 06/21/21/ER FS Draft Date of Exam:06/21/21 CT ABDOMEN/PELVIS WO PROCEDURE: CT abdomen and pelvis without contrast. TECHNIQUE: Multiple contiguous axial images were obtained through the abdomen and pelvis without the use of intravenous contrast. Auto Exposure Controls were utilized during the CT exam to meet ALARA standards for radiation dose reduction. INDICATION: Abdominal pain. FINDINGS: There is no hydroureteronephrosis. No radiopaque urinary tract calculi. The aorta is nonaneurysmal. The liver and bile ducts are unremarkable. The gallbladder is contracted or absent. No biliary dilatation. The spleen, adrenals, and pancreas are unremarkable. There are nonaneurysmal atherosclerotic vascular calcifications. There is no diverticulitis. Some generalized bulging and thinning of the anterior abdominal wall is chronic. No focal abdominal wall defect or christelle hernia. No rectus sheath collection. No ascites, abscess, hematoma, or acute fluid collection. The uterus and adnexa are unremarkable. No focal inflammatory process found. Bony structures are nonacute. The lung bases are nonacute. IMPRESSION: No obstructive features, inflammatory processes, hemorrhage, fluid collections, edema, or acute abnormalities found. Stable from prior. Dictated on workstation # [id number] Dict: 06/21/21 1330 Trans: 06/21/21 1355 [id number] Interpreted by: DAYANA RODRIGUEZ Electronically signed by: Departure Impression Primary Impression: Urinary tract infection Qualified Codes: N39.0 - Urinary tract infection, site not specified; R31.9 - Hematuria, unspecified Disposition: HOME, SELF-CARE Condition: Stable Departure-Patient Inst. Referrals: KATIE HUDSON MD (PCP/Family) Primary Care Physician Patient Instructions: Urinary Tract Infection, Adult (DC), Urinary Tract Infection, Adult ED Add. Discharge Instructions: Adequate hydration Nitrofurantoin 100mg BID for 7 days - F/u with PCP Scripts Nitrofurantoin Monohyd/M-Cryst (Nitrofurantoin [place]-Mcr 100 mg) 100 Mg Capsule 100 MG PO BID for 7 Days, #14 CAP Prov: ILDEFONSO HU MD 06/21/21 ILDEFONSO HU MD Jun 21, 2021 13:05
[2021-06-21 13:06] VITALS: BP 138/80
[2021-06-21 13:14] LABS: BASOPHILS % (AUTO) 0 % (0-10); EOSINOPHILS # (AUTO) 0.1 10^3/uL (0.0-0.3); EOSINOPHILS % (AUTO) 1 % (0-10); HEMATOCRIT 42 % (35-52); HEMOGLOBIN 14.4 g/dL (11.5-16.0); LYMPHOCYTES # (AUTO) 1.5 10^3/uL (1.0-4.0); LYMPHOCYTES % (AUTO) 30 % (12-44); MEAN CORPUSCULAR HEMOGLOBIN 34 pg (25-34); MEAN CORPUSCULAR HGB CONC 35 g/dL (32-36); MEAN CORPUSCULAR VOLUME 99 fL (80-99); MEAN PLATELET VOLUME 8.8 fL (9.0-12.2); MONOCYTES # (AUTO) 0.4 10^3/uL (0.0-1.0); MONOCYTES % (AUTO) 7 % (0-12); NEUTROPHILS # (AUTO) 3.1 10^3/uL (1.8-7.8); NEUTROPHILS % (AUTO) 62 % (42-75); PLATELET COUNT 148 10^3/uL (130-400)
[2021-06-21] MEDS ORDERED: NS IV 1000 ML 1,000 ML IV SCH (13:15)
[2021-06-21 13:32] LABS: BUN/CREATININE RATIO 23; CALCIUM 9.1 MG/DL (8.5-10.1); CARBON DIOXIDE 25 MMOL/L (21-32); CHLORIDE 102 MMOL/L (98-107); CREATININE SERUM 1.09 MG/DL (0.60-1.30); GFR ESTIMATED 56; GLUCOSE 195 MG/DL (70-105); POTASSIUM 4.1 MMOL/L (3.6-5.0); SODIUM 138 MMOL/L (135-145)
[2021-06-21 13:33] LABS: ALANINE AMINOTRANSFERASE 25 U/L (0-55); ALBUMIN 4.2 GM/DL (3.2-4.5); ALKALINE PHOSPHATASE 47 U/L (40-136); BILIRUBIN,TOTAL 0.6 MG/DL (0.1-1.0); LIPASE 40 U/L (8-78); TOTAL PROTEIN 7.1 GM/DL (6.4-8.2)
[2021-06-21] MEDS ORDERED: ONDANSETRON 4 MG/2 ML (SDV) Z0FRAN IVP ONE (13:45)
--- NOTE | 2021-06-21 13:56 | Diagnostic Imaging Report ---
PROCEDURE: CT abdomen and pelvis without contrast. TECHNIQUE: Multiple contiguous axial images were obtained through the abdomen and pelvis without the use of intravenous contrast. Auto Exposure Controls were utilized during the CT exam to meet ALARA standards for radiation dose reduction. INDICATION: Abdominal pain. FINDINGS: There is no hydroureteronephrosis. No radiopaque urinary tract calculi. The aorta is nonaneurysmal. The liver and bile ducts are unremarkable. The gallbladder is contracted or absent. No biliary dilatation. The spleen, adrenals, and pancreas are unremarkable. There are nonaneurysmal atherosclerotic vascular calcifications. There is no diverticulitis. Some generalized bulging and thinning of the anterior abdominal wall is chronic. No focal abdominal wall defect or christelle hernia. No rectus sheath collection. No ascites, abscess, hematoma, or acute fluid collection. The uterus and adnexa are unremarkable. No focal inflammatory process found. Bony structures are nonacute. The lung bases are nonacute. IMPRESSION: No obstructive features, inflammatory processes, hemorrhage, fluid collections, edema, or acute abnormalities found. Stable from prior. Dictated by: Dictated on workstation # [id number]
[2021-06-21 14:00] LABS: BILIRUBIN,URINE NEGATIVE (NEGATIVE); CLARITY,URINE SL CLOUDY; COLOR,URINE ORANGE; GLUCOSE, URINE (UA) NEGATIVE (NEGATIVE); KETONES,URINE NEGATIVE (NEGATIVE); LEUKOCYTE ESTERASE ,URINE NEGATIVE (NEGATIVE); NITRITE,URINE POSITIVE (NEGATIVE); PH,URINE 6.5 (5-9); PROTEIN,URINE 2+ (NEGATIVE)
[2021-06-21 14:06] LABS: BACTERIA,URINE LARGE /HPF; RBC,URINE 0-2 /HPF; SQUAMOUS EPITHELIAL CELL,UR 0-2 /HPF
[2021-06-21] MEDS ORDERED: NITR100C10 PO (14:51)
== END 2021-06-21 15:00 | disposition home or self-care (01) ==
LOC: EDUNIT# 13:00 → ER FS 13:01
DX: N39.0 Urinary tract infection, site not specified (principal); Z20.822 Contact with and (suspected) exposure to COVID-19
CPT/HCPCS: 36415; 74176; 80053; 81000; 83690; 84484; 85025; 87088; 87635; 87636

== ENCOUNTER 2021-06-29 13:59 | Observation (INO) | payer MEDICAID ==
[~2021-06-29] VITALS: Ht 167.6 cm; Wt 131.6 kg
[~2021-06-29 13:59] MED LIST changes: +NITR100C10 PO
[2021-06-29] MEDS ORDERED: NS IV 1000 ML 1,000 ML IV STA ×2 (14:08→16:17)
[2021-06-29] MEDS ORDERED: ONDANSETRON 4 MG/2 ML (SDV) Z0FRAN IVP STA (14:08)
[2021-06-29] MEDS ORDERED: cefTRIAXone 1 GM PRE-MIX 50 ML IV STA (14:08)
[2021-06-29] MEDS ORDERED: KETOROLAC 30 MG/ML VIAL IVP STA (14:08)
--- NOTE | 2021-06-29 14:12 | ED General ---
General Stated Complaint: DIARRHEA Source of Information: Patient, EMS, Old Records History of Present Illness Date Seen by Provider: Jun 29, 2021 Time Seen by Provider: 13:56 Initial Comments 66 yo female presenting with complaint of continued nausea and diarrhea since being seen last June 21 in the ED. She states she finished the course of antibiotics but she was still having abdominal pain, back pain and nausea as well as pain with urination. She has been having diarrhea 4-5 times a day. She states she has not followed up in the clinic because Dr. Hudson is only in the office on Monday and Monday. She reports calling to the clinic today and she reports they told her to go to the hospital to be admitted for IV fluids and IV antibiotics. However EMS states that they called the clinic and the clinic told EMS that the patient had informed the clinic that she was calling 911 because she wanted to be admitted. She denies having fever. She says she is just started to have a little cough. She has had pain in her back around her kidneys. She has diffuse abdominal cramping pain. She continues to have pain with urination as well as having multiple diarrhea stools a day. Timing/Duration: 1 Week (more than a week) Severity: Severe Modifying Factors: worse with Eating Associated Systoms: No Chest Pain; Cough (Mild cough started today); No Diaphoresis, No Fever/Chills, No Headaches; Malaise, Nausea/Vomiting (Nausea but no vomiting just some dry heaves); No Seizure, No Shortness of Air, No Syncope Allergies and Home Medications Allergies Uncoded Allergies: IV CONTRAST (Adverse Reaction, Mild, HIVES, 09/17/18) Patient Home Medication List Home Medication List Reviewed: Yes Acetaminophen (Tylenol Extra Strength) 500 Mg Tablet, 1,000 MG PO Q8H PRN for PAIN-MILD (1-4), (Reported) Entered as Reported by: DOYLE CARRILLO on 02/23/21 1035 Amitriptyline HCl (Amitriptyline HCl) 50 Mg Tablet, 50 MG PO HS, (Reported) Entered as Reported by: DOYLE CARRILLO on 02/23/21 1035 Aspirin (Aspirin EC) 81 Mg Tablet.dr, 81 MG PO DAILY, (Reported) Entered as Reported by: NERIS PRIETO on 10/26/20 0851 Cefdinir (Cefdinir) 300 Mg Capsule, 300 MG PO BID Prescribed by: CRISTY MCKINLEY on 04/20/21 1456 Fluoxetine HCl (Fluoxetine HCl) 40 Mg Capsule, 40 MG PO BID, (Reported) Entered as Reported by: NERIS PRIETO on 10/26/20 0851 Fluticasone Propionate (Flovent Hfa 110 mcg) 1 Ea Aero, 2-4 PUFF IH BID Prescribed by: CRISTY MCKINLEY on 04/20/21 1443 Gabapentin (Gabapentin) 600 Mg Tablet, 600 MG PO TID PRN for NERVE PAIN, (Reported) Entered as Reported by: MINESH CANALES on 09/17/181846 Ibuprofen (Ibuprofen) 800 Mg Tablet, 800 MG PO TID PRN for PAIN-MILD (1-4), (Reported) Entered as Reported by: STACIE BERNAL on 05/15/19 1015 Losartan Potassium (Losartan Potassium) 50 Mg Tablet, 50 MG PO DAILY, (Reported) Entered as Reported by: MINESH CANALES on 09/17/181846 Metformin HCl (Metformin HCl) 1,000 Mg Tablet, 1,000 MG PO BID, (Reported) Entered as Reported by: MINESH CANALES on 09/17/181846 Multivit-Min/Folic Acid/Biotin (Hair, Skin & Nails Caplet) 1 Each Tablet, 1 EACH PO DAILY, (Reported) Entered as Reported by: DOYLE CARRILLO on 02/23/21 1035 Nitrofurantoin Monohyd/M-Cryst (Nitrofurantoin [place]-Mcr 100 mg) 100 Mg Capsule, 100 MG PO BID Prescribed by: ILDEFONSO HU MD on 06/21/21 1451 Oxybutynin Chloride (Oxybutynin Chloride) 5 Mg Tablet, 5 MG PO TID PRN for BLADDER SPASMS, (Reported) Entered as Reported by: MINESH CANALES on 09/17/181846 Tramadol HCl (Tramadol HCl) 50 Mg Tablet, 50 MG PO TID PRN for PAIN-MODERATE (5- 7), (Reported) Entered as Reported by: NERIS PRIETO on 10/26/20 0851 Review of Systems Review of Systems Constitutional: see HPI EENTM: no symptoms reported Respiratory: see HPI Cardiovascular: no symptoms reported Gastrointestinal: see HPI Genitourinary: see HPI Musculoskeletal: no symptoms reported Skin: No rash Psychiatric/Neurological: Anxiety Past Nuguooy-Jznmei-Dowjay Hx Immunizations Up To Date Tetanus Booster (TDap): Unknown First/Initial COVID19 Vaccinat: NA Second COVID19 Vaccination Get: NA Third COVID19 Vaccination Date: NA Seasonal Allergies Seasonal Allergies: No Past Medical History Surgery/Hospitalization HX: MRSA APPY C Section Bladder Surgery Stroke with R side residual Cataracts Dilation Urethral structurre HTN Cheek Cellulitis Surgeries: Yes (cystoscopies) Appendectomy, Bladder Surgery, Section, Gallbladder, Tonsillectomy Respiratory: Yes COPD Cardiac: Yes High Cholesterol, Hypertension Neurological: Yes Neuropathy, Stroke Genitourinary: Yes (urethral strictures) UTI-Chronic Gastrointestinal: Yes Gall Bladder Disease Musculoskeletal: Yes Arthritis, Chronic Back Pain Endocrine: Yes Diabetes, Insulin dep HEENT: Yes (decreasing vision with age and due to DM) Hearing Impairment: Denies Cancer: No Psychosocial: No Depression Integumentary: Yes (L ORBITAL CELLULITIS, 2018 CHEEK CELLULITIS) Recent Skin Changes Blood Disorders: No Family Medical History Patient reports no known family medical history. Diabetes, Hypertension Physical Exam Vital Signs Vital Signs - First Documented 06/29/21 06/29/21 15:50 16:25 Temp 36.3 Pulse 79 Resp 18 B/P (MAP) 138/74 (95) Pulse Ox 99 O2 Delivery Room Air Capillary Refill : Height, Weight, BMI Height: 5'6.00" Weight: 290lbs. 1.0oz. 131.779609ns; 46.00 BMI Method:Stated General Appearance: No Apparent Distress, Obese HEENT: PERRL/EOMI, Pharynx Normal, Moist Mucous Membranes Neck: Full Range of Motion, Normal Inspection, Non Tender, Supple Respiratory: Chest Non Tender, Lungs Clear, Normal Breath Sounds, No Accessory Muscle Use, No Respiratory Distress Cardiovascular: Regular Rate, Rhythm, Normal Peripheral Pulses Gastrointestinal: Normal Bowel Sounds, No Pulsatile Mass, Non Tender, Soft Rectal: Deferred Extremity: Normal Capillary Refill, Normal Range of Motion, Pedal Edema (1+ pitting edema to BLE with obese extremities) Neurologic/Psychiatric: Alert, Oriented x3 Skin: Normal Color, Warm/Dry Focused Exam Lactate Level 06/29/21 14:10: Lactic Acid Level 3.15*H 06/29/21 16:00: Lactic Acid Level 1.20 Lactic Acid Level Laboratory Tests Test 06/29/21 14:10 06/29/21 16:00 Lactic Acid Level 3.15 MMOL/L (0.50-2.00) *H 1.20 MMOL/L (0.50-2.00) Progress/Results/Core Measures Suspected Sepsis SIRS Temperature: Pulse: Respiratory Rate: Laboratory Tests 06/29/21 14:00: White Blood Count 5.4 Blood Pressure / Mean: 06/29/21 14:10: Lactic Acid Level 3.15*H 06/29/21 16:00: Lactic Acid Level 1.20 Laboratory Tests 06/29/21 14:00: Platelet Count 142 06/29/21 14:10: Creatinine 0.88, Total Bilirubin 0.6 Results/Orders Lab Results Laboratory Tests Test 06/29/21 14:00 06/29/21 14:10 06/29/21 14:13 06/29/21 15:31 Range/Units White Blood Count 5.4 4.3-11.0 10^3/uL Red Blood Count 4.13 3.80-5.11 10^6/uL Hemoglobin 14.4 11.5-16.0 g/dL Hematocrit 43 35-52 % Mean Corpuscular Volume 104 H 80-99 fL Mean Corpuscular Hemoglobin 35 H 25-34 pg Mean Corpuscular Hemoglobin Concent 33 32-36 g/dL Red Cell Distribution Width 12.9 10.0-14.5 % Platelet Count 142 130-400 10^3/uL Mean Platelet Volume 9.6 9.0-12.2 fL Immature Granulocyte % (Auto) 0 % Neutrophils (%) (Auto) 62 42-75 % Lymphocytes (%) (Auto) 30 12-44 % Monocytes (%) (Auto) 6 0-12 % Eosinophils (%) (Auto) 2 0-10 % Basophils (%) (Auto) 0 0-10 % Neutrophils # (Auto) 3.4 1.8-7.8 10^3/uL Lymphocytes # (Auto) 1.6 1.0-4.0 10^3/uL Monocytes # (Auto) 0.3 0.0-1.0 10^3/uL Eosinophils # (Auto) 0.1 0.0-0.3 10^3/uL Basophils # (Auto) 0.0 0.0-0.1 10^3/uL Immature Granulocyte # (Auto) 0.0 0.0-0.1 10^3/uL Sodium Level 138 135-145 MMOL/L Potassium Level 4.7 3.6-5.0 MMOL/L Chloride Level 102 98-107 MMOL/L Carbon Dioxide Level 22 21-32 MMOL/L Anion Gap 14 5-14 MMOL/L Blood Urea Nitrogen 20 H 7-18 MG/DL Creatinine 0.88 0.60-1.30 MG/DL Estimat Glomerular Filtration Rate 72 BUN/Creatinine Ratio 23 Glucose Level 252 H 70-105 MG/DL Lactic Acid Level 3.15 *H 0.50-2.00 MMOL/L Calcium Level 8.9 8.5-10.1 MG/DL Corrected Calcium 8.9 8.5-10.1 MG/DL Total Bilirubin 0.6 0.1-1.0 MG/DL Aspartate Amino Transf (AST/SGOT) 18 5-34 U/L Alanine Aminotransferase (ALT/SGPT) 23 0-55 U/L Alkaline Phosphatase 54 40-136 U/L Total Protein 6.4 6.4-8.2 GM/DL Albumin 4.0 3.2-4.5 GM/DL Lipase 38 8-78 U/L Serum Alcohol < 10 <10 MG/DL Glucometer 238 H 70-110 MG/DL Urine Color YELLOW Urine Clarity TURBID Urine pH 6.0 5-9 Urine Specific Blair >=1.030 1.016-1.022 Urine Protein 2+ H NEGATIVE Urine Glucose (UA) TRACE H NEGATIVE Urine Ketones NEGATIVE NEGATIVE Urine Nitrite POSITIVE H NEGATIVE Urine Bilirubin 1+ H NEGATIVE Urine Urobilinogen 0.2 < = 1.0 MG/DL Urine Leukocyte Esterase NEGATIVE NEGATIVE Urine RBC (Auto) TRACE-I H NEGATIVE Urine RBC NONE /HPF Urine WBC 5-10 H /HPF Urine Squamous Epithelial Cells RARE /HPF Urine Crystals NONE /LPF Urine Bacteria LARGE H /HPF Urine Casts PRESENT /LPF Urine Hyaline Casts 0-2 H /LPF Urine Mucus MODERATE H /LPF Urine Culture Indicated YES Urine Opiates Screen NEGATIVE NEGATIVE Urine Oxycodone Screen NEGATIVE NEGATIVE Urine Methadone Screen NEGATIVE NEGATIVE Urine Propoxyphene Screen NEGATIVE NEGATIVE Urine Barbiturates Screen NEGATIVE NEGATIVE Ur Tricyclic Antidepressants Screen NEGATIVE NEGATIVE Urine Phencyclidine Screen NEGATIVE NEGATIVE Urine Amphetamines Screen NEGATIVE NEGATIVE Urine Methamphetamines Screen NEGATIVE NEGATIVE Urine Benzodiazepines Screen POSITIVE H NEGATIVE Urine Cocaine Screen NEGATIVE NEGATIVE Urine Cannabinoids Screen NEGATIVE NEGATIVE Test 06/29/21 16:00 Range/Units Lactic Acid Level 1.20 0.50-2.00 MMOL/L My Orders Orders - MIHIR BARNEY MD Comprehensive Metabolic Panel (06/29/21 14:05) Lipase (06/29/21 14:05) Ua Culture If Indicated (06/29/21 14:05) Ed Iv/Invasive Line Start (06/29/21 14:05) Cbc With Automated Diff (06/29/21 14:05) Ct Abdomen/Pelvis Wo (06/29/21 14:05) Blood Culture (06/29/21 14:05) Accucheck Stat ONCE (06/29/21 14:05) Drug Screen Stat (Urine) (06/29/21 14:05) Alcohol (06/29/21 14:05) Lactic Acid Analyzer (06/29/21 14:05) Stool Culture (06/29/21 14:05) Fecal Wbc (06/29/21 14:05) C Difficile Ag + Toxin A/B. (06/29/21 14:05) Isolation Central Supply Req (06/29/21 14:05) Ns Iv 1000 Ml (Sodium Chloride 0.9%) (06/29/21 14:08) Ketorolac Injection (Toradol Injection) (06/29/21 14:08) Ceftriaxone 1 Gm Pre-Mix (Rocephin 1 Gm (06/29/21 14:08) Ondansetron Injection (Zofran Injectio (06/29/21 14:08) Urine Culture (06/29/21 15:31) Ns Iv 1000 Ml (Sodium Chloride 0.9%) (06/29/21 16:17) Vital Signs/I&O 06/29/21 06/29/21 06/29/21 15:50 16:25 16:48 Temp 36.3 36.3 Pulse 79 86 Resp 18 16 B/P (MAP) 138/74 (95) 168/78 Pulse Ox 99 97 O2 Delivery Room Air Capillary Refill : Progress Note #1: Progress Note Vitals appear stable without signs of acute significant illness. Will repeat testing that was done a week ago to see if there is any acute significant changes. Had a blood cultures and lactic acid. Order stool studies to check for C. difficile and infection in her stool. Repeat the CT scan to look for signs of colitis, diverticulitis, pyelonephritis, bowel obstruction, abscess Progress Note #2: Progress Note Labs show stable CBC and Chemistry other than elevated glucose 252 and lactic acid to 3.15. UA shows elevated specific gravity up to greater than 1.030. She has continued nitrates, leukocyte esterase, large amount of bacteria present in her urine. She has not been able to provide any diarrhea at this point. Her heart rate and blood pressure remained stable. CT scan of the abdomen and pelvis is not show any acute blockage or signs of pyelonephritis. She does have inflammation around the bladder consistent with some cystitis. Will order a 2nd L of NS for her elevated lactic acid and concentrated UA. Check with Dr. Duque for [facility] about possible observation admit for IV fluids and antibiotics to help treat UTI and hydrate her. 1628 Dr. Duque accepted pt for obs admit for IV antibiotics and IVF. With her elevated Lactic acid initially a repeat was done and it did come down to 1.2 so this is likely more dehydration than sepsis but will use the sepsis order set to ensure she gets fluids and antibiotics to treat her urine infection that is not responding to the po antibiotics from last week. Diagnostic Imaging Diagonstic Imaging: CT Plain Films/CT/US/NM/MRI: abdomen, pelvis Comments [facility]. [place], [place] NAME: MORALES WALKER [facility] REC#: [id number] PT STATUS: REG ER : 1955 PHYSICIAN: MIHIR BARNEY MD ADMIT DATE: 06/29/21/ER FS Draft Date of Exam:06/29/21 CT ABDOMEN/PELVIS WO CLINICAL INDICATION: Patient with diffuse abdominal pain with nausea vomiting, diarrhea and dysuria. Patient with history of cholecystectomy and . Exam: CT exam of the abdomen and pelvis is performed without IV or oral contrast using stone protocol. Coronal and sagittal reformatted images were created. Auto Exposure Controls were utilized during the CT exam to meet ALARA standards for radiation dose reduction. Comparisons: CT scan of abdomen and pelvis without contrast dated 06/21/2021. Findings: There are parenchymal bands involving both lung bases with the left side more the right which may related to atelectasis and/or scarring. There are hypertrophic spurs involving the lateral acetabular regions. There is lower lumbar spine facet arthropathy/hypertrophy. There are hypertrophic spurs involving the visualized lower thoracic spine and lumbar spine. The liver, spleen and adrenal glands are unremarkable and stable. Atrophic changes of the pancreas is again noted. Both kidneys are unremarkable with no stones or hydronephrosis. The bladder has small amount of fluid within it. There is nonspecific bladder wall thickening which is at least roughly 8 mm. There is mild fat stranding adjacent to the bladder. Again noted exophytic fibroid involving the top of the fundus of the uterus which measures at least 1.8 cm in transverse dimension. Otherwise uterus and adnexal structures show no significant abnormality. There is no intra-abdominal free air or free fluid. There is no intestinal obstruction. There is no lymphadenopathy. Again seen diastases of the anterior abdominal wall muscles. Otherwise extraabdominal and extrapelvic soft tissue structures are unremarkable. IMPRESSION: 1: There is small amount of fluid in the bladder. There is bladder wall thickening with mild adjacent fat stranding. These findings are nonspecific, but may be related to cystitis. Otherwise, incomplete distention may be considered. 2: Otherwise, stable CT scan of abdomen and pelvis with no interval acute abdominal or pelvic process. There is no intestinal obstruction. No significant stool load. 3: There are no urinary tract stones seen. There is no intestinal obstruction. Dictated on workstation # [id number] Dict: 06/29/21 1438 Trans: 06/29/21 1448 [facility] [id number] Interpreted by: ALANNAH HERRMANN MD Electronically signed by: Reviewed: Reviewed by De Departure Communication (Admissions) Time/Spoke to Admitting Phy: 16:28 d/w Dr. Duque for [facility] service and she accepted pt for observation admit for hydration and IV antibiotics. Impression Primary Impression: Cystitis without hematuria Additional Impressions: Nausea alone Diarrhea Qualified Codes: R19.7 - Diarrhea, unspecified Dysuria Diffuse abdominal pain Elevated lactic acid level Dehydration Disposition: 30 STILL A PATIENT Condition: Stable Admissions Decision to Admit Reason: Admit from ER (General) Decision to Admit/Date: Jun 29, 2021 Time/Decision to Admit Time: 16:28 Departure-Patient Inst. Referrals: KATIE HUDSON MD (PCP) Primary Care Physician MIHIR BARNEY MD Jun 29, 2021 14:12
[2021-06-29 14:15] LABS: BASOPHILS % (AUTO) 0 % (0-10); EOSINOPHILS # (AUTO) 0.1 10^3/uL (0.0-0.3); EOSINOPHILS % (AUTO) 2 % (0-10); HEMATOCRIT 43 % (35-52); HEMOGLOBIN 14.4 g/dL (11.5-16.0); LYMPHOCYTES # (AUTO) 1.6 10^3/uL (1.0-4.0); LYMPHOCYTES % (AUTO) 30 % (12-44); MEAN CORPUSCULAR HEMOGLOBIN 35 pg (25-34); MEAN CORPUSCULAR HGB CONC 33 g/dL (32-36); MEAN CORPUSCULAR VOLUME 104 fL (80-99); MEAN PLATELET VOLUME 9.6 fL (9.0-12.2); MONOCYTES # (AUTO) 0.3 10^3/uL (0.0-1.0); MONOCYTES % (AUTO) 6 % (0-12); NEUTROPHILS # (AUTO) 3.4 10^3/uL (1.8-7.8); NEUTROPHILS % (AUTO) 62 % (42-75); PLATELET COUNT 142 10^3/uL (130-400); WHITE BLOOD COUNT 5.4 10^3/uL (4.3-11.0)
[2021-06-29 14:47] LABS: BUN/CREATININE RATIO 23; CALCIUM 8.9 MG/DL (8.5-10.1); CARBON DIOXIDE 22 MMOL/L (21-32); CHLORIDE 102 MMOL/L (98-107); CREATININE SERUM 0.88 MG/DL (0.60-1.30); GFR ESTIMATED 72; GLUCOSE 252 MG/DL (70-105); POTASSIUM 4.7 MMOL/L (3.6-5.0); SODIUM 138 MMOL/L (135-145)
[2021-06-29 14:48] LABS: ALANINE AMINOTRANSFERASE 23 U/L (0-55); ALKALINE PHOSPHATASE 54 U/L (40-136); BILIRUBIN,TOTAL 0.6 MG/DL (0.1-1.0); LIPASE 38 U/L (8-78); TOTAL PROTEIN 6.4 GM/DL (6.4-8.2)
--- NOTE | 2021-06-29 14:48 | Diagnostic Imaging Report ---
CLINICAL INDICATION: Patient with diffuse abdominal pain with nausea vomiting, diarrhea and dysuria. Patient with history of cholecystectomy and . Exam: CT exam of the abdomen and pelvis is performed without IV or oral contrast using stone protocol. Coronal and sagittal reformatted images were created. Auto Exposure Controls were utilized during the CT exam to meet ALARA standards for radiation dose reduction. Comparisons: CT scan of abdomen and pelvis without contrast dated 06/21/2021. Findings: There are parenchymal bands involving both lung bases with the left side more the right which may related to atelectasis and/or scarring. There are hypertrophic spurs involving the lateral acetabular regions. There is lower lumbar spine facet arthropathy/hypertrophy. There are hypertrophic spurs involving the visualized lower thoracic spine and lumbar spine. The liver, spleen and adrenal glands are unremarkable and stable. Atrophic changes of the pancreas is again noted. Both kidneys are unremarkable with no stones or hydronephrosis. The bladder has small amount of fluid within it. There is nonspecific bladder wall thickening which is at least roughly 8 mm. There is mild fat stranding adjacent to the bladder. Again noted exophytic fibroid involving the top of the fundus of the uterus which measures at least 1.8 cm in transverse dimension. Otherwise uterus and adnexal structures show no significant abnormality. There is no intra-abdominal free air or free fluid. There is no intestinal obstruction. There is no lymphadenopathy. Again seen diastases of the anterior abdominal wall muscles. Otherwise extraabdominal and extrapelvic soft tissue structures are unremarkable. IMPRESSION: 1: There is small amount of fluid in the bladder. There is bladder wall thickening with mild adjacent fat stranding. These findings are nonspecific, but may be related to cystitis. Otherwise, incomplete distention may be considered. 2: Otherwise, stable CT scan of abdomen and pelvis with no interval acute abdominal or pelvic process. There is no intestinal obstruction. No significant stool load. 3: There are no urinary tract stones seen. There is no intestinal obstruction. Dictated by: Dictated on workstation # [id number]
[2021-06-29 15:43] LABS: CLARITY,URINE TURBID; COLOR,URINE YELLOW; GLUCOSE, URINE (UA) TRACE (NEGATIVE); KETONES,URINE NEGATIVE (NEGATIVE); LEUKOCYTE ESTERASE ,URINE NEGATIVE (NEGATIVE); NITRITE,URINE POSITIVE (NEGATIVE); PROTEIN,URINE 2+ (NEGATIVE)
[2021-06-29 16:00] LABS: BACTERIA,URINE LARGE /HPF; HYALINE CASTS, URINE 0-2 /LPF; SQUAMOUS EPITHELIAL CELL,UR RARE /HPF
[2021-06-29 16:01] LABS: BILIRUBIN,URINE 1+ (NEGATIVE)
[2021-06-29 16:03] LABS: AMPHETAMINE SCREEN, URINE NEGATIVE (NEGATIVE); BARBITURATE SCREEN URINE NEGATIVE (NEGATIVE); BENZODIAZEPINES SCREEN URINE POSITIVE (NEGATIVE); CANNABINOID SCREEN, URINE NEGATIVE (NEGATIVE); COCAINE SCREEN URINE NEGATIVE (NEGATIVE); METHADONE STAT NEGATIVE (NEGATIVE); METHAMPHETAMINE SCREEN URINE S NEGATIVE (NEGATIVE); OPIATE SCREEN URINE NEGATIVE (NEGATIVE); OXYCODONE STAT NEGATIVE (NEGATIVE); PROPOXYPHENE STAT NEGATIVE (NEGATIVE); TRICYCLIC ANTIDEPRESSANTS SCRE NEGATIVE (NEGATIVE)
[2021-06-29 18:21] VITALS: BP 155/93
[2021-06-29] MEDS ORDERED: ONDANSETRON 4 MG/2 ML (SDV) Z0FRAN IV PRN (18:30)
[2021-06-29] MEDS: NS IV 1000 ML 1,000 ML IV SCH (18:44)
[2021-06-29 20:10] VITALS: BP 151/86
[2021-06-29] MEDS: HYDROcodone/APAP 5 MG/325 MG (LORTAB) TAB PO PRN (22:48)
[2021-06-29 23:54] VITALS: BP 152/83
[2021-06-30] MEDS: NS IV 1000 ML 1,000 ML IV SCH ×3 (01:48→12:46)
[2021-06-30 03:54] VITALS: BP 132/81
[2021-06-30] MEDS: inSUlin ASPART (NovoLOG) 1 UNIT/0.01 ML (CHARGE PER UNIT) SC SCH ×4 (05:27→21:13)
[2021-06-30 05:57] LABS: BASOPHILS % (AUTO) 0 % (0-10); EOSINOPHILS # (AUTO) 0.1 10^3/uL (0.0-0.3); EOSINOPHILS % (AUTO) 3 % (0-10); HEMATOCRIT 36 % (35-52); HEMOGLOBIN 12.3 g/dL (11.5-16.0); LYMPHOCYTES # (AUTO) 2.2 10^3/uL (1.0-4.0); LYMPHOCYTES % (AUTO) 46 % (12-44); MEAN CORPUSCULAR HEMOGLOBIN 35 pg (25-34); MEAN CORPUSCULAR HGB CONC 34 g/dL (32-36); MEAN CORPUSCULAR VOLUME 103 fL (80-99); MEAN PLATELET VOLUME 9.3 fL (9.0-12.2); MONOCYTES # (AUTO) 0.4 10^3/uL (0.0-1.0); MONOCYTES % (AUTO) 8 % (0-12); NEUTROPHILS # (AUTO) 2.1 10^3/uL (1.8-7.8); NEUTROPHILS % (AUTO) 43 % (42-75); PLATELET COUNT 133 10^3/uL (130-400); WHITE BLOOD COUNT 4.9 10^3/uL (4.3-11.0)
[2021-06-30 06:06] LABS: POTASSIUM 4.2 MMOL/L (3.6-5.0)
[2021-06-30 06:12] LABS: CREATININE SERUM 0.87 MG/DL (0.60-1.30)
[2021-06-30 07:52] VITALS: BP 143/87
[2021-06-30] MEDS: cefTRIAXone 1 GM/50 ML (PRE-MIX) IV SCH (08:10)
[2021-06-30 11:57] VITALS: BP 147/75
--- NOTE | 2021-06-30 12:07 | History & Physical ---
NICOLE BREAUX III MED STUDENT 06/30/21 1207: HPI History of Present Illness: Pt is 66yo female who presented to the ED w/ complaints of nausea and persistent diarrhea since June 21. Describes having 4-5 episodes of loose stool per day. Is still able to keep fluids and food down w/o vomiting, however continues to have diarrhea. notes that she was seen about 2 months ago and required antibiotics for a lower extremity cellulitis which she finished. Does endorse chronic back and knee pain that is unchanged in severity. Does endorse to having significant dysuria over the last 2 weeks with hematuria at the beginning of this period. Denies any fevers, chills, chest pain, headaches, weakness. Admits to some increased swelling in bilateral lower extremities and generalized abdominal pain that she could not localize. Source: patient Exam Limitations: no limitations Date seen by provider: Jun 30, 2021 Time Seen by Provider: 11:00 Attending Physician Maria Del Rosario Devine MD PCP Andrew Celis MD Consult Date of Admission Jun 29, 2021 at 18:14 Home Medications Home Medications Reviewed patient Home Medication Reconciliation performed by pharmacy medication reconciliations rv repair technician and/or nursing. Patients Allergies have been reviewed. Allergies Uncoded Allergies: IV CONTRAST (Adverse Reaction, Mild, HIVES, 09/17/18) XDH-Amrvbh-Ratoan Hx Patient Social History Smoking Status: Former Smoker 2nd Hand Smoke Exposure: No Recent Hopitalizations: No Alcohol Use?: Yes Have you traveled recently?: No Immunizations Up To Date Tetanus Booster (TDap): Unknown Influenza Vaccine Up-to-Date: No; Not Current First/Initial COVID19 Vaccinat: NOT VACCINATED Second COVID19 Vaccination Get: NA Third COVID19 Vaccination Date: NA Past Medical History NIDDM Diabetic Neuropathy Morbid Obesity Family Medical History Significant Family History: Diabetes, Hypertension Family History: Patient reports no known family medical history. Review of Systems ([facility]) Constitutional: chills (occasional); No dizziness, No fever, No malaise, No weakness EENTM: no symptoms reported Respiratory: No cough, No hemoptysis, No phlegm; short of breath (baseline shortness of breath, has not worsened); No wheezing Cardiovascular: No chest pain; edema; No Hx of Intervention, No syncope Gastrointestinal: abdominal pain (generalized), diarrhea; No hematemesis, No heartburn, No loss of appetite; nausea; No vomiting Genitourinary: dysuria; No frequency; hematuria; No hesitancy, No incontinence; pain Musculoskeletal: back pain (chronic), joint pain (chronic knee pain) Skin: no symptoms reported Psychiatric/Neurological: No Symptoms Reported Reviewed Test Results Reviewed Test Results Lab 06/30/21 06/30/21 06/30/21 06/30/21 03:54 07:52 08:30 11:57 Temp 36.6 36.7 36.0 Pulse 62 62 64 Resp 18 18 20 B/P (MAP) 132/81 (98) 143/87 (105) 147/75 (99) Pulse Ox 93 95 92 O2 Delivery Room Air Room Air Room Air Room Air 06/30/21 00:00 Intake Total 600 ml Balance 600 ml Laboratory Tests Test 06/29/21 14:00 06/29/21 14:10 06/29/21 14:13 06/29/21 15:31 Range/Units White Blood Count 5.4 4.3-11.0 10^3/uL Red Blood Count 4.13 3.80-5.11 10^6/uL Hemoglobin 14.4 11.5-16.0 g/dL Hematocrit 43 35-52 % Mean Corpuscular Volume 104 H 80-99 fL Mean Corpuscular Hemoglobin 35 H 25-34 pg Mean Corpuscular Hemoglobin Concent 33 32-36 g/dL Red Cell Distribution Width 12.9 10.0-14.5 % Platelet Count 142 130-400 10^3/uL Mean Platelet Volume 9.6 9.0-12.2 fL Immature Granulocyte % (Auto) 0 % Neutrophils (%) (Auto) 62 42-75 % Lymphocytes (%) (Auto) 30 12-44 % Monocytes (%) (Auto) 6 0-12 % Eosinophils (%) (Auto) 2 0-10 % Basophils (%) (Auto) 0 0-10 % Neutrophils # (Auto) 3.4 1.8-7.8 10^3/uL Lymphocytes # (Auto) 1.6 1.0-4.0 10^3/uL Monocytes # (Auto) 0.3 0.0-1.0 10^3/uL Eosinophils # (Auto) 0.1 0.0-0.3 10^3/uL Basophils # (Auto) 0.0 0.0-0.1 10^3/uL Immature Granulocyte # (Auto) 0.0 0.0-0.1 10^3/uL Sodium Level 138 135-145 MMOL/L Potassium Level 4.7 3.6-5.0 MMOL/L Chloride Level 102 98-107 MMOL/L Carbon Dioxide Level 22 21-32 MMOL/L Anion Gap 14 5-14 MMOL/L Blood Urea Nitrogen 20 H 7-18 MG/DL Creatinine 0.88 0.60-1.30 MG/DL Estimat Glomerular Filtration Rate 72 BUN/Creatinine Ratio 23 Glucose Level 252 H 70-105 MG/DL Lactic Acid Level 3.15 *H 0.50-2.00 MMOL/L Calcium Level 8.9 8.5-10.1 MG/DL Corrected Calcium 8.9 8.5-10.1 MG/DL Total Bilirubin 0.6 0.1-1.0 MG/DL Aspartate Amino Transf (AST/SGOT) 18 5-34 U/L Alanine Aminotransferase (ALT/SGPT) 23 0-55 U/L Alkaline Phosphatase 54 40-136 U/L Total Protein 6.4 6.4-8.2 GM/DL Albumin 4.0 3.2-4.5 GM/DL Lipase 38 8-78 U/L Serum Alcohol < 10 <10 MG/DL Glucometer 238 H 70-110 MG/DL Urine Color YELLOW Urine Clarity TURBID Urine pH 6.0 5-9 Urine Specific [place] >=1.030 1.016-1.022 Urine Protein 2+ H NEGATIVE Urine Glucose (UA) TRACE H NEGATIVE Urine Ketones NEGATIVE NEGATIVE Urine Nitrite POSITIVE H NEGATIVE Urine Bilirubin 1+ H NEGATIVE Urine Urobilinogen 0.2 < = 1.0 MG/DL Urine Leukocyte Esterase NEGATIVE NEGATIVE Urine RBC (Auto) TRACE-I H NEGATIVE Urine RBC NONE /HPF Urine WBC 5-10 H /HPF Urine Squamous Epithelial Cells RARE /HPF Urine Crystals NONE /LPF Urine Bacteria LARGE H /HPF Urine Casts PRESENT /LPF Urine Hyaline Casts 0-2 H /LPF Urine Mucus MODERATE H /LPF Urine Culture Indicated YES Urine Opiates Screen NEGATIVE NEGATIVE Urine Oxycodone Screen NEGATIVE NEGATIVE Urine Methadone Screen NEGATIVE NEGATIVE Urine Propoxyphene Screen NEGATIVE NEGATIVE Urine Barbiturates Screen NEGATIVE NEGATIVE Ur Tricyclic Antidepressants Screen NEGATIVE NEGATIVE Urine Phencyclidine Screen NEGATIVE NEGATIVE Urine Amphetamines Screen NEGATIVE NEGATIVE Urine Methamphetamines Screen NEGATIVE NEGATIVE Urine Benzodiazepines Screen POSITIVE H NEGATIVE Urine Cocaine Screen NEGATIVE NEGATIVE Urine Cannabinoids Screen NEGATIVE NEGATIVE Test 06/29/21 16:00 06/30/21 05:20 06/30/21 05:29 06/30/21 11:12 Range/Units Lactic Acid Level 1.20 0.50-2.00 MMOL/L Glucometer 152 H 242 H 70-110 MG/DL White Blood Count 4.9 4.3-11.0 10^3/uL Red Blood Count 3.54 L 3.80-5.11 10^6/uL Hemoglobin 12.3 11.5-16.0 g/dL Hematocrit 36 35-52 % Mean Corpuscular Volume 103 H 80-99 fL Mean Corpuscular Hemoglobin 35 H 25-34 pg Mean Corpuscular Hemoglobin Concent 34 32-36 g/dL Red Cell Distribution Width 12.7 10.0-14.5 % Platelet Count 133 130-400 10^3/uL Mean Platelet Volume 9.3 9.0-12.2 fL Immature Granulocyte % (Auto) 0 % Neutrophils (%) (Auto) 43 42-75 % Lymphocytes (%) (Auto) 46 H 12-44 % Monocytes (%) (Auto) 8 0-12 % Eosinophils (%) (Auto) 3 0-10 % Basophils (%) (Auto) 0 0-10 % Neutrophils # (Auto) 2.1 1.8-7.8 10^3/uL Lymphocytes # (Auto) 2.2 1.0-4.0 10^3/uL Monocytes # (Auto) 0.4 0.0-1.0 10^3/uL Eosinophils # (Auto) 0.1 0.0-0.3 10^3/uL Basophils # (Auto) 0.0 0.0-0.1 10^3/uL Immature Granulocyte # (Auto) 0.0 0.0-0.1 10^3/uL Sodium Level 135 135-145 MMOL/L Potassium Level 4.2 3.6-5.0 MMOL/L Chloride Level 108 H 98-107 MMOL/L Carbon Dioxide Level 18 L 21-32 MMOL/L Anion Gap 9 5-14 MMOL/L Blood Urea Nitrogen 19 H 7-18 MG/DL Creatinine 0.87 0.60-1.30 MG/DL Estimat Glomerular Filtration Rate 73 BUN/Creatinine Ratio 22 Glucose Level 135 H 70-105 MG/DL Calcium Level 8.0 L 8.5-10.1 MG/DL Radiology CT ABDOMEN/PELVIS WO CLINICAL INDICATION: Patient with diffuse abdominal pain with nausea vomiting, diarrhea and dysuria. Patient with history of cholecystectomy and . Exam: CT exam of the abdomen and pelvis is performed without IV or oral contrast using stone protocol. Coronal and sagittal reformatted images were created. Auto Exposure Controls were utilized during the CT exam to meet ALARA standards for radiation dose reduction. Comparisons: CT scan of abdomen and pelvis without contrast dated 06/21/2021. Findings: There are parenchymal bands involving both lung bases with the left side more the right which may related to atelectasis and/or scarring. There are hypertrophic spurs involving the lateral acetabular regions. There is lower lumbar spine facet arthropathy/hypertrophy. There are hypertrophic spurs involving the visualized lower thoracic spine and lumbar spine. The liver, spleen and adrenal glands are unremarkable and stable. Atrophic changes of the pancreas is again noted. Both kidneys are unremarkable with no stones or hydronephrosis. The bladder has small amount of fluid within it. There is nonspecific bladder wall thickening which is at least roughly 8 mm. There is mild fat stranding adjacent to the bladder. Again noted exophytic fibroid involving the top of the fundus of the uterus which measures at least 1.8 cm in transverse dimension. Otherwise uterus and adnexal structures show no significant abnormality. There is no intra-abdominal free air or free fluid. There is no intestinal obstruction. There is no lymphadenopathy. Again seen diastases of the anterior abdominal wall muscles. Otherwise extraabdominal and extrapelvic soft tissue structures are unremarkable. IMPRESSION: 1: There is small amount of fluid in the bladder. There is bladder wall thickening with mild adjacent fat stranding. These findings are nonspecific, but may be related to cystitis. Otherwise, incomplete distention may be considered. 2: Otherwise, stable CT scan of abdomen and pelvis with no interval acute abdominal or pelvic process. There is no intestinal obstruction. No significant stool load. 3: There are no urinary tract stones seen. There is no intestinal obstruction. Physical Exam-([facility]) Physical Exam Vital Signs VS - Last 72 Hours, by Label 06/29/21 06/29/21 06/29/21 06/29/21 15:50 16:25 16:48 18:21 Temp 36.3 36.3 36.4 Pulse 79 86 65 Resp 18 16 18 B/P (MAP) 138/74 (95) 168/78 155/93 (113) Pulse Ox 99 97 97 O2 Delivery Room Air Room Air 06/29/21 06/29/21 06/29/21 06/29/21 18:22 20:00 20:10 23:54 Temp 36.4 36.6 Pulse 65 64 Resp 18 20 B/P (MAP) 151/86 (107) 152/83 (106) Pulse Ox 98 93 O2 Delivery Room Air Room Air Room Air Room Air 06/30/21 06/30/21 06/30/21 06/30/21 03:54 07:52 08:30 11:57 Temp 36.6 36.7 36.0 Pulse 62 62 64 Resp 18 18 20 B/P (MAP) 132/81 (98) 143/87 (105) 147/75 (99) Pulse Ox 93 95 92 O2 Delivery Room Air Room Air Room Air Room Air Capillary Refill : General Appearance: WD/WN, no apparent distress, obese Eyes: Bilateral Eye Normal Inspection, Bilateral Eye PERRL, Bilateral Eye EOMI HEENT: PERRL/EOMI, pharynx normal Neck: non-tender, full range of motion, supple Respiratory: chest non-tender, lungs clear, normal breath sounds, no respiratory distress, no accessory muscle use Cardiovascular: normal peripheral pulses, regular rate, rhythm, no edema, no gallop, no murmur Peripheral Pulses: 2+ Radial Pulses (R), 2+ Radial Pulses (L) Gastrointestinal: normal bowel sounds, non tender, soft; No distended, No guarding, No rebound Back: normal inspection, decreased range of motion (from body habitus ), other (some reported lower back pain) Extremities: normal capillary refill, pedal edema (non-pitting edema in bilateral lower extremities to mid-whelan. ), swelling (likely chronic), other (tender to palpation in bilateral lower extremities ) Neurologic/Psychiatric: business transformation manager II-XII nml as tested, alert, normal mood/affect, oriented x 3 Skin: normal color, warm/dry Lymphatic: no adenopathy Assessment/Plan Assessment/Plan (1) Urinary tract infection Status: Acute Assessment & Plan: Pt reports about a 2 week history of significant dysuria and hematuria that was present initially. Hematuria has since resolved but dysuria is still present. Starting to get better now that antibiotics have been started. 06/30 - started on rocephin in the ED. Urine likely representing infection w/ + nitrites, 5-10 WBC and large bacteria. Preliminary reading of gram negative rods. Plan for a 5 day duration of antibiotic treatment. Given reported history of hematuria will observe in the hospital one more night to determine bacteria and be sure of appropriate antibiotic regiment on d/c. (2) Diarrhea Status: Acute Assessment & Plan: Pt reports having 4-5 episodes of loose stool since June 21. Reports getting antibiotics about 2 months ago for a lower extremity cellulitis. 06/30 - Pt has had 1 BM since admission to the hospital. Initial concern for possible C diff infection given amount of diarrhea and previous antibiotic treatment. However with minimal BM since admission, concern for c diff is lower. Electrolytes grossly unremarkable on admission and this AM. Initially on 1 50mL/hr of NS maintenance fluid. Will decrease to 75ml/hr given pt tolerance of PO intake. Qualifiers: Qualified Codes: R19.7 - Diarrhea, unspecified (3) Lactic acidosis Status: Resolved Assessment & Plan: On admission to the ED, lactic acid elevated at 3.15. However following administration of supplemental fluids and recheck the LA decreased to 1.20 likely representing dehydration from the significant reported diarrhea MUCK [employer] BLASTING vs systemic infection and sepsis. MARIA DEL ROSARIO DEVINE MD 06/30/21 1236: Home Medications Allergies Uncoded Allergies: IV CONTRAST (Adverse Reaction, Mild, HIVES, 09/17/18) [id number] Hx Past Medical History HTN IDDM Chronic pain Family Medical History Family History: Patient reports no known family medical history. Review of Systems ([facility]) Constitutional: chills (occasional); No fever, No malaise EENTM: no symptoms reported; No mouth pain, No nose congestion Respiratory: No cough; short of breath (baseline shortness of breath, has not worsened) Cardiovascular: no symptoms reported; No chest pain, No palpitations Gastrointestinal: abdominal pain (generalized), diarrhea; No hematemesis, No heartburn, No loss of appetite, No melena; nausea; No vomiting Genitourinary: dysuria, frequency, hematuria Musculoskeletal: back pain (chronic), joint pain (chronic knee pain) Skin: no symptoms reported; No lesions, No rash Psychiatric/Neurological: No Symptoms Reported; Denies Anxiety, Denies Depressed Physical Exam-([facility]) Physical Exam General Appearance: no apparent distress, obese HEENT: PERRL/EOMI Neck: non-tender, full range of motion, supple Respiratory: chest non-tender, lungs clear, normal breath sounds, no respiratory distress, no accessory muscle use Cardiovascular: normal peripheral pulses, regular rate, rhythm, no murmur Gastrointestinal: normal bowel sounds, non tender, soft; No distended, No guarding, No rebound Back: no CVA tenderness, no vertebral tenderness Extremities: normal capillary refill, pedal edema (non-pitting edema in bilateral lower extremities to mid-whelan. ), swelling (likely chronic), other (tender to palpation in bilateral lower extremities ) Neurologic/Psychiatric: business transformation manager II-XII nml as tested, alert, normal mood/affect, oriented x 3 Skin: normal color, warm/dry Lymphatic: no adenopathy Assessment/Plan Assessment/Plan Admission Status: Observation (1) Urinary tract infection Status: Acute Assessment & Plan: Pt reports about a 2 week history of significant dysuria and hematuria that was present initially. Hematuria has since resolved but dysuria is still present. Starting to get better now that antibiotics have been started. 06/30 - started on rocephin in the ED. Urine likely representing infection w/ + nitrites, 5-10 WBC and large bacteria. Preliminary reading of gram negative rods. Plan for a 5 day duration of antibiotic treatment. Given reported history of hematuria will observe in the hospital one more night to determine bacteria and be sure of appropriate antibiotic regiment on d/c. (2) Diarrhea Status: Acute Assessment & Plan: Pt reports having 4-5 episodes of loose stool since June 21. Reports getting antibiotics about 2 months ago for a lower extremity cellulitis. 06/30 - Pt has had 1 BM since admission to the hospital. Initial concern for possible C diff infection given amount of diarrhea and previous antibiotic treatment. However with minimal BM since admission, concern for c diff is lower. Electrolytes grossly unremarkable on admission and this AM. Initially on 150mL/hr of NS maintenance fluid. Will decrease to 75ml/hr given pt tolerance of PO intake. Qualifiers: Qualified Codes: R19.7 - Diarrhea, unspecified (3) Lactic acidosis Status: Resolved Assessment & Plan: On admission to the ED, lactic acid elevated at 3.15. However following administration of supplemental fluids and recheck the LA decreased to 1.20 likely representing dehydration from the significant reported diarrhea MUCK MINER BLASTING vs systemic infection and sepsis. Supervisory-Addendum Brief Verification & Attestation Participated in pt care: history, physical Personally performed: exam, history Care discussed with: Medical Student Procedures: n/a Verification and Attestation of Medical Student E/M Service A medical student performed and documented this service in my presence. I reviewed and verified all information documented by the medical student and made modifications to such information, when appropriate. I personally performed the physical exam and medical decision making. Maria Del Rosario Devine, Jun 30, 2021,12:40 UTI: Patient's initial LA was elevated but patient was not septic, likely 2/2 to moderate dehydration. Culture pending. Due to recurrent UTIs will wait for culture results prior to d/c. Likely home tomorrow Diarrhea: Improving, patient only had 1 BM since admission and it was soft but not watery. Not likely consistent with C diff. NICOLE BREAUX III MED STUDENT Jun 30, 2021 12:07 MARIA DEL ROSARIO DEVINE MD Jun 30, 2021 12:36
[2021-06-30] MEDS ORDERED: FLT11013 IH (12:36)
[2021-06-30 15:33] VITALS: BP 140/71
[2021-06-30 19:35] VITALS: BP 112/84
[2021-06-30] MEDS: HYDROcodone/APAP 5 MG/325 MG (LORTAB) TAB PO PRN (21:13)
[2021-06-30 23:49] VITALS: BP 142/78
[2021-07-01 04:15] VITALS: BP 169/86
[2021-07-01] MEDS: inSUlin ASPART (NovoLOG) 1 UNIT/0.01 ML (CHARGE PER UNIT) SC SCH ×3 (05:37→16:27)
[2021-07-01 06:10] LABS: BASOPHILS % (AUTO) 0 % (0-10); EOSINOPHILS # (AUTO) 0.2 10^3/uL (0.0-0.3); EOSINOPHILS % (AUTO) 4 % (0-10); HEMATOCRIT 41 % (35-52); LYMPHOCYTES % (AUTO) 42 % (12-44); MEAN CORPUSCULAR HEMOGLOBIN 35 pg (25-34); MEAN CORPUSCULAR HGB CONC 34 g/dL (32-36); MEAN CORPUSCULAR VOLUME 103 fL (80-99); MEAN PLATELET VOLUME 9.2 fL (9.0-12.2); MONOCYTES # (AUTO) 0.4 10^3/uL (0.0-1.0); MONOCYTES % (AUTO) 8 % (0-12); NEUTROPHILS # (AUTO) 2.1 10^3/uL (1.8-7.8); NEUTROPHILS % (AUTO) 46 % (42-75); PLATELET COUNT 134 10^3/uL (130-400); WHITE BLOOD COUNT 4.6 10^3/uL (4.3-11.0)
[2021-07-01 06:24] LABS: POTASSIUM 4.6 MMOL/L (3.6-5.0)
[2021-07-01 06:25] LABS: CALCIUM 8.9 MG/DL (8.5-10.1)
[2021-07-01 06:30] LABS: CREATININE SERUM 0.9 MG/DL (0.60-1.30)
[2021-07-01] MEDS: cefTRIAXone 1 GM/50 ML (PRE-MIX) IV SCH (08:58)
[2021-07-01 11:15] VITALS: BP 127/79
--- NOTE | 2021-07-01 12:54 | Discharge Summary ---
Discharge Summary Reconcile Patient Problems Problems Reviewed?: Yes Instructions for Patient Via [employer], Assessment/Instructions UTI: Gram neg likely Ecoli Diarrhea Lactic Acidosis: Resolved IDDM HTN Physician to follow Patient: Walkerbelen Discharge Diet for Home: ADA Diet Hospital Course Date of Admission: Jun 29, 2021 at 18:14 Admission Diagnosis : Family Physician/Provider: Andrew Celis MD Date of Discharge: 07/01/21 Discharge Diagnosis: UTI likely Ecoli Diarrhea: Resolved Lactic Acidosis: Resolved IDDM HTN Hospital Course: 66 yo F that was admitted with UTI symptoms and mild lactic acidosis. LA resolved with initial fluid hydration and was WNL by AM. Patient remained HDS throughout admission. Urine culture returned with Gram Neg rods likely ecoli that was yu sensitive. Patient transitioned to PO antibiotics and will be D.c with . Labs and Pending Lab Test: Laboratory Tests 06/30/21 15:36: Glucometer 140H 06/30/21 20:58: Glucometer 187H 07/01/21 05:34: Glucometer 134H 07/01/21 05:44: White Blood Count 4.6, Red Blood Count 4.01, Hemoglobin 14.0, Hematocrit 41, Mean Corpuscular Volume 103H, Mean Corpuscular Hemoglobin 35H, Mean Corpuscular Hemoglobin Concent 34, Red Cell Distribution Width 12.7, Platelet Count 134, Mean Platelet Volume 9.2, Immature Granulocyte % (Auto) 0, Neutrophils (%) (Auto) 46, Lymphocytes (%) (Auto) 42, Monocytes (%) (Auto) 8, Eosinophils (%) (Auto) 4, Basophils (%) (Auto) 0, Neutrophils # (Auto) 2.1, Lymphocytes # (Auto) 2.0, Monocytes # (Auto) 0.4, Eosinophils # (Auto) 0.2, Basophils # (Auto) 0.0, Immature Granulocyte # (Auto) 0.0, Sodium Level 137, Potassium Level 4.6, Chloride Level 107, Carbon Dioxide Level 20L, Anion Gap 10, Blood Urea Nitrogen 16, Creatinine 0.90, Estimat Glomerular Filtration Rate 71, BUN/Creatinine Ratio 18, Glucose Level 149H, Calcium Level 8.9 07/01/21 11:12: Glucometer 222H Microbiology 06/29/21 Blood Culture - Preliminary, Resulted No growth 06/29/21 Urine Culture - Preliminary, Resulted Gram Negative Deven Home Meds Active Reported Flovent Hfa 110 mcg (Fluticasone Propionate) 1 Ea Aero 2-4 Puff IH BID PRN Hair, Skin & Nails Caplet (Multivit-Min/Folic Acid/Biotin) 1 Each Tablet 1 Each PO DAILY Tylenol Extra Strength (Acetaminophen) 500 Mg Tablet 1,000 Mg PO Q8H PRN Amitriptyline HCl 50 Mg Tablet 50 Mg PO HS Aspirin EC (Aspirin) 81 Mg Tablet.dr 81 Mg PO DAILY Fluoxetine HCl 40 Mg Capsule 40 Mg PO BID Tramadol HCl 50 Mg Tablet 50 Mg PO TID PRN Ibuprofen 800 Mg Tablet 800 Mg PO TID PRN Gabapentin 600 Mg Tablet 600 Mg PO TID PRN Metformin HCl 1,000 Mg Tablet 1,000 Mg PO BID WITH MEALS Losartan Potassium 50 Mg Tablet 50 Mg PO DAILY Oxybutynin Chloride 5 Mg Tablet 5 Mg PO TID PRN Patient Allergies: Uncoded Allergies: IV CONTRAST (Adverse Reaction, Mild, HIVES, 09/17/18) Height (Feet): 5 Height (Inches): 6.00 Weight (Pounds): 290 Weight (Ounces): 1.0 New Medications: Cefdinir (Cefdinir) 300 Mg Capsule 300 MG PO BID for 4 Days, #8 CAP Continued Medications: Acetaminophen (Tylenol Extra Strength) 500 Mg Tablet 1000 MG PO Q8H PRN for PAIN-MILD (1-4), TAB Amitriptyline HCl (Amitriptyline HCl) 50 Mg Tablet 50 MG PO HS, TAB Aspirin (Aspirin EC) 81 Mg Tablet.dr 81 MG PO DAILY, TAB Fluoxetine HCl (Fluoxetine HCl) 40 Mg Capsule 40 MG PO BID, CAP Fluticasone Propionate (Flovent Hfa 110 mcg) 1 Ea Aero 2-4 PUFF IH BID PRN for SHORTNESS OF BREATH, EA Gabapentin (Gabapentin) 600 Mg Tablet 600 MG PO TID PRN for NERVE PAIN, TAB Ibuprofen (Ibuprofen) 800 Mg Tablet 800 MG PO TID PRN for PAIN-MILD (1-4), TAB Losartan Potassium (Losartan Potassium) 50 Mg Tablet 50 MG PO DAILY, TAB Metformin HCl (Metformin HCl) 1,000 Mg Tablet 1000 MG PO BID WITH MEALS, TAB Multivit-Min/Folic Acid/Biotin (Hair, Skin & Nails Caplet) 1 Each Tablet 1 EACH PO DAILY, TAB Oxybutynin Chloride (Oxybutynin Chloride) 5 Mg Tablet 5 MG PO TID PRN for OVERACTIVE BLADDER, TAB Tramadol HCl (Tramadol HCl) 50 Mg Tablet 50 MG PO TID PRN for PAIN-MODERATE (5-7), TAB Home Health Need/Face to Face Date of Face to Face: Jul 01, 2021 Clinical Findings: Generalized weakness and fatigue, Instability, Muscle weakness, Unsteady gait I have seen Pt [id number]: Yes Discharged To: Home Diagnosis/Conditions: See above Patient is Homebound due to: Muscle weakness Homebound Status Due to the above stated illness, injury or surgical procedure (medical condition or diagnosis) and associated clinical findings, the patient is homebound because of his/her inability to leave home except with aid of a supportive device and/or person AND leaving the home requires a considerable and taxing effort or is medically contraindicated. Pt req the following assistanc: Aid of another person, Walker Home Health Nursing Orders Home Health Services Order: Nursing Services, Physical Therapy-Evaluate & Treat Home Health Infusion Therapy Line Start Date: Jun 29, 2021 Certify Stmt I certify that this patient is under my care and that I, a nurse practitioner or a physician; a geriatric nurse assistant working with me, had a face to face encounter that - meets the physician face to face encounter requirements with this patient as dated. Discharge Physical Exam General: Alert, Oriented X3, No Acute Distress Lungs: Clear to Auscultation, Normal Air Movement Heart: Regular Rate, No Murmurs Abdomen: Normal Bowel Sounds, Soft, No Tenderness, No Masses Extremities: Other (2+ pitting edema) Skin: No Rashes Neuro: Normal Speech, Cranial Nerves 3-12 NL Psych/Mental Status: Mental Status NL, Mood NL MARIA DEL ROSARIO DEVINE MD Jul 01, 2021 12:51
[2021-07-01] MEDS ORDERED: CEFD300C3 PO (12:56)
[2021-07-01] MEDS: HYDROcodone/APAP 5 MG/325 MG (LORTAB) TAB PO PRN (13:11)
[2021-07-01 15:57] VITALS: BP 133/77
== END 2021-07-01 16:54 | disposition home or self-care (01) ==
LOC: EDUNIT# 13:59 → ER FS 14:01 → 4TH 18:14
PROVIDERS: ADMIT Family Medicine; ATTEND Family Medicine
DX: N30.90 Cystitis, unspecified without hematuria (principal); E66.01 Morbid (severe) obesity due to excess calories; E11.10 Type 2 diabetes mellitus with ketoacidosis without coma; E86.0 Dehydration; R19.7 Diarrhea, unspecified; I10 Essential (primary) hypertension; R30.0 Dysuria; Z87.891 Personal history of nicotine dependence; Z79.84 Long term (current) use of oral hypoglycemic drugs; Z68.42 Body mass index [BMI] 45.0-49.9, adult
CPT/HCPCS: 36415; 74176; 80048 ×2; 80053; 80306; 81000; 82947 ×3; 83605; 83690; 85025 ×3; 87040; 87088; 87186; 96374; 96375; 99284; G0378; G0480; 80320

== ENCOUNTER → 2021-07-12 | Outpatient (CLI) | payer MEDICAID ==
[2021-07-12 17:32] LABS: BILIRUBIN,URINE NEGATIVE (NEGATIVE); CLARITY,URINE CLEAR; COLOR,URINE YELLOW; GLUCOSE, URINE (UA) NEGATIVE (NEGATIVE); KETONES,URINE NEGATIVE (NEGATIVE); LEUKOCYTE ESTERASE ,URINE NEGATIVE (NEGATIVE); NITRITE,URINE NEGATIVE (NEGATIVE); PROTEIN,URINE 2+ (NEGATIVE)
[2021-07-12 17:41] LABS: BACTERIA,URINE TRACE /HPF; SQUAMOUS EPITHELIAL CELL,UR RARE /HPF; WBC,URINE RARE /HPF
== END ==
LOC: IHC 16:18
PROVIDERS: ATTEND Internal Medicine
DX: R82.90 Unspecified abnormal findings in urine (principal)
CPT/HCPCS: 81000

== ENCOUNTER 2021-07-20 11:58 | Emergency (ER) | payer MEDICAID ==
[~2021-07-20] VITALS: Ht 167 cm; Wt 141.0 kg
[2021-07-20] MEDS ORDERED: FUROSEMIDE 40 MG/4 ML INJ (LASIX) IVP STA (12:08)
[2021-07-20] MEDS ORDERED: morphine INJ 10 MG/ML 1ML (SYR OR VIAL) IVP STA (12:08)
[2021-07-20] MEDS ORDERED: KETOROLAC 30 MG/ML VIAL IVP STA (12:08)
--- NOTE | 2021-07-20 12:16 | ED General ---
General Stated Complaint: HALEY LEG SWELLING Source of Information: Patient, EMS, Old Records History of Present Illness Date Seen by Provider: Jul 20, 2021 Time Seen by Provider: 11:58 Initial Comments 66-year-old female presenting with complaints of increased pain and swelling in bilateral lower extremities. She has chronic swelling but has been worse in the last week. She was seen by Dr. Hudson on Monday and was prescribed Lasix or furosemide. She has not picked that up yet and states someone is supposed to get it from the pharmacy this evening. Since she has not taken any Lasix for the last several days the swelling has worsened in her legs. She also has had several falls over the weekend and has bruising to the right lower extremity. She states that she has increased pain with trying to stand or bear weight. She denies losing consciousness. She has been taking ibuprofen for pain but states it has not been helping Timing/Duration: 1 Week, Getting Worse Severity: Moderate Modifying Factors: worse with Movement Associated Systoms: No Chest Pain, No Cough, No Diaphoresis, No Fever/Chills, No Headaches, No Loss of Appetite, No Malaise, No Nausea/Vomiting, No Rash, No Seizure; Shortness of Air; No Syncope, No Weakness Allergies and Home Medications Allergies Uncoded Allergies: IV CONTRAST (Adverse Reaction, Mild, HIVES, 09/17/18) Patient Home Medication List Home Medication List Reviewed: Yes Acetaminophen (Tylenol Extra Strength) 500 Mg Tablet, 1,000 MG PO Q8H PRN for PAIN-MILD (1-4), (Reported) Entered as Reported by: DOYLE CARRILLO on 02/23/21 1035 Amitriptyline HCl (Amitriptyline HCl) 50 Mg Tablet, 50 MG PO HS, (Reported) Entered as Reported by: DOYLE CARRILLO on 02/23/21 1035 Aspirin (Aspirin EC) 81 Mg Tablet.dr, 81 MG PO DAILY, (Reported) Entered as Reported by: NERIS PRIETO on 10/26/20 0851 Cefdinir (Cefdinir) 300 Mg Capsule, 300 MG PO BID Prescribed by: MARIA DEL ROSARIO DEVINE on 07/01/21 1256 Fluoxetine HCl (Fluoxetine HCl) 40 Mg Capsule, 40 MG PO BID, (Reported) Entered as Reported by: NERIS PRIETO on 10/26/20 0851 Fluticasone Propionate (Flovent Hfa 110 mcg) 1 Ea Aero, 2-4 PUFF IH BID PRN for SHORTNESS OF BREATH, (Reported) Entered as Reported by: DOYLE CARRILLO on 06/30/21 1236 Gabapentin (Gabapentin) 600 Mg Tablet, 600 MG PO TID PRN for NERVE PAIN, (Reported) Entered as Reported by: MINESH CANALES on 09/17/181846 Hydrocodone/Acetaminophen (Hydrocodone-Acetamin 5-325 mg) 1 Each Tablet, 1 TAB PO Q4H PRN for PAIN-SEVERE (8-10) Prescribed by: MIHIR BARNEY on 07/20/21 1404 Ibuprofen (Ibuprofen) 800 Mg Tablet, 800 MG PO TID PRN for PAIN-MILD (1-4), (Reported) Entered as Reported by: STACIE BERNAL on 05/15/19 1015 Losartan Potassium (Losartan Potassium) 50 Mg Tablet, 50 MG PO DAILY, (Reported) Entered as Reported by: MINESH CANALES on 09/17/181846 Metformin HCl (Metformin HCl) 1,000 Mg Tablet, 1,000 MG PO BID WITH MEALS, (Reported) Entered as Reported by: MINESH CANALES on 09/17/181846 Multivit-Min/Folic Acid/Biotin (Hair, Skin & Nails Caplet) 1 Each Tablet, 1 EACH PO DAILY, (Reported) Entered as Reported by: DOYLE CARRILLO on 02/23/21 1035 Oxybutynin Chloride (Oxybutynin Chloride) 5 Mg Tablet, 5 MG PO TID PRN for OVERACTIVE BLADDER, (Reported) Entered as Reported by: MINESH CANALES on 09/17/181846 Tramadol HCl (Tramadol HCl) 50 Mg Tablet, 50 MG PO TID PRN for PAIN-MODERATE (5- 7), (Reported) Entered as Reported by: NERIS PRIETO on 10/26/20 0851 Review of Systems Review of Systems Constitutional: No chills, No fever; malaise EENTM: no symptoms reported Respiratory: see HPI Cardiovascular: no symptoms reported Gastrointestinal: no symptoms reported Genitourinary: no symptoms reported Musculoskeletal: other (Pain in bilateral lower extremities from swelling as well as falling) Skin: change in color (bruising to RLE) Psychiatric/Neurological: Anxiety Past Ubysoys-Xhngop-Yekikt Hx Immunizations Up To Date Tetanus Booster (TDap): Unknown First/Initial COVID19 Vaccinat: NOT VACCINATED Second COVID19 Vaccination Get: NA Third COVID19 Vaccination Date: NA Seasonal Allergies Seasonal Allergies: No Past Medical History Surgery/Hospitalization HX: MRSA APPY C Section Bladder Surgery Stroke with R side residual Cataracts Dilation Urethral structurre HTN Cheek Cellulitis Surgeries: Yes (cystoscopies) Appendectomy, Bladder Surgery, Section, Gallbladder, Tonsillectomy Respiratory: Yes COPD Cardiac: Yes High Cholesterol, Hypertension Neurological: Yes Neuropathy, Stroke Genitourinary: Yes (urethral strictures) UTI-Chronic Gastrointestinal: Yes Gall Bladder Disease Musculoskeletal: Yes Arthritis, Chronic Back Pain Endocrine: Yes Diabetes, Insulin dep HEENT: Yes (decreasing vision with age and due to DM) Hearing Impairment: Denies Cancer: No Psychosocial: No Depression Integumentary: Yes (L ORBITAL CELLULITIS, 2018 CHEEK CELLULITIS) Recent Skin Changes Blood Disorders: No Family Medical History Patient reports no known family medical history. Diabetes, Hypertension Physical Exam Vital Signs Vital Signs - First Documented 07/20/21 12:30 Temp 36.4 Pulse 70 Resp 14 B/P (MAP) 155/91 (112) Pulse Ox 97 O2 Delivery Room Air Capillary Refill : Height, Weight, BMI Height: 5'6.00" Weight: 290lbs. 1.0oz. 131.724530jz; 48.72 BMI Method:Stated General Appearance: Mild Distress, Obese (morbid obesity) HEENT: PERRL/EOMI, Pharynx Normal Neck: Full Range of Motion, Normal Inspection, Non Tender, Supple Respiratory: Chest Non Tender, Lungs Clear, Normal Breath Sounds, No Accessory Muscle Use, No Respiratory Distress Cardiovascular: Regular Rate, Rhythm, Normal Peripheral Pulses Gastrointestinal: Normal Bowel Sounds, No Pulsatile Mass, Non Tender, Soft Rectal: Deferred Extremity: Normal Capillary Refill, Pedal Edema (3+ BLE pitting edema), Other (tender to palpation BLE, bruising to right lower extremity) Neurologic/Psychiatric: Alert, Oriented x3, 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 Norm as Tested Skin: Warm/Dry, Ecchymosis (RLE) Progress/Results/Core Measures Suspected Sepsis SIRS Temperature: Pulse: Respiratory Rate: Laboratory Tests 07/20/21 12:10: White Blood Count 4.3 Blood Pressure / Mean: Laboratory Tests 07/20/21 12:10: Creatinine 0.98, Platelet Count 143, Total Bilirubin 0.4 Results/Orders Lab Results Laboratory Tests Test 07/20/21 12:10 07/20/21 13:17 Range/Units White Blood Count 4.3 4.3-11.0 10^3/uL Red Blood Count 3.73 L 3.80-5.11 10^6/uL Hemoglobin 13.0 11.5-16.0 g/dL Hematocrit 38 35-52 % Mean Corpuscular Volume 102 H 80-99 fL Mean Corpuscular Hemoglobin 35 H 25-34 pg Mean Corpuscular Hemoglobin Concent 34 32-36 g/dL Red Cell Distribution Width 12.8 10.0-14.5 % Platelet Count 143 130-400 10^3/uL Mean Platelet Volume 8.5 L 9.0-12.2 fL Immature Granulocyte % (Auto) 0 % Neutrophils (%) (Auto) 46 42-75 % Lymphocytes (%) (Auto) 40 12-44 % Monocytes (%) (Auto) 9 0-12 % Eosinophils (%) (Auto) 4 0-10 % Basophils (%) (Auto) 1 0-10 % Neutrophils # (Auto) 2.0 1.8-7.8 10^3/uL Lymphocytes # (Auto) 1.7 1.0-4.0 10^3/uL Monocytes # (Auto) 0.4 0.0-1.0 10^3/uL Eosinophils # (Auto) 0.2 0.0-0.3 10^3/uL Basophils # (Auto) 0.0 0.0-0.1 10^3/uL Immature Granulocyte # (Auto) 0.0 0.0-0.1 10^3/uL Sodium Level 139 135-145 MMOL/L Potassium Level 5.0 3.6-5.0 MMOL/L Chloride Level 102 98-107 MMOL/L Carbon Dioxide Level 25 21-32 MMOL/L Anion Gap 12 5-14 MMOL/L Blood Urea Nitrogen 21 H 7-18 MG/DL Creatinine 0.98 0.60-1.30 MG/DL Estimat Glomerular Filtration Rate 64 BUN/Creatinine Ratio 21 Glucose Level 189 H 70-105 MG/DL Calcium Level 8.6 8.5-10.1 MG/DL Corrected Calcium 8.8 8.5-10.1 MG/DL Total Bilirubin 0.4 0.1-1.0 MG/DL Aspartate Amino Transf (AST/SGOT) 17 5-34 U/L Alanine Aminotransferase (ALT/SGPT) 16 0-55 U/L Alkaline Phosphatase 57 40-136 U/L Total Protein 6.2 L 6.4-8.2 GM/DL Albumin 3.7 3.2-4.5 GM/DL Urine Color YELLOW Urine Clarity CLEAR Urine pH 6.0 5-9 Urine Specific [place]anan 1.020 1.016-1.022 Urine Protein NEGATIVE NEGATIVE Urine Glucose (UA) NEGATIVE NEGATIVE Urine Ketones NEGATIVE NEGATIVE Urine Nitrite NEGATIVE NEGATIVE Urine Bilirubin NEGATIVE NEGATIVE Urine Urobilinogen 0.2 < = 1.0 MG/DL Urine Leukocyte Esterase NEGATIVE NEGATIVE Urine RBC (Auto) NEGATIVE NEGATIVE Urine RBC NONE /HPF Urine WBC 2-5 /HPF Urine Squamous Epithelial Cells 2-5 /HPF Urine Crystals NONE /LPF Urine Bacteria NEGATIVE /HPF Urine Casts NONE /LPF Urine Mucus NEGATIVE /LPF Urine Culture Indicated NO My Orders Orders - MIHIR BARNEY MD Comprehensive Metabolic Panel (07/20/21 12:08) Ua Culture If Indicated (07/20/21 12:08) Ed Iv/Invasive Line Start (07/20/21 12:08) Cbc With Automated Diff (07/20/21 12:08) Tibia Fibula 2 View Bilateral (07/20/21 12:08) Furosemide Injection (Lasix Injection) (07/20/21 12:08) Ketorolac Injection (Toradol Injection) (07/20/21 12:08) Morphine Injection (Morphine Injection (07/20/21 12:08) Vital Signs/I&O 07/20/21 07/20/21 12:30 14:13 Temp 36.4 Pulse 70 66 Resp 14 B/P (MAP) 155/91 (112) Pulse Ox 97 96 O2 Delivery Room Air Room Air Capillary Refill : Progress Note #1: Progress Note Check basic labs to ensure the electrolytes and kidney function look okay. X- rays of bilateral lower extremities to check for possible bony injury with her falls over the weekend and bruising on the right lower extremity. Progress Note #2: Progress Note Xrays do not show any acute fracture of BLE. She has stable labs. She is having good urine output since getting Lasix dose. Reassured pt and advised to follow up with clinic for continued concerns Diagnostic Imaging Diagonstic Imaging: Xray Plain Films/CT/US/NM/MRI: leg Comments [facility] [place], [place] NAME: MORALES WALKER [facility] REC#: [id number] PT STATUS: REG ER : 1955 PHYSICIAN: MIHIR BARNEY MD ADMIT DATE: 07/20/21/ER FS Signed Date of Exam:07/20/21 TIBIA FIBULA 2 VIEW BILATERAL CLINICAL HISTORY: Pain and swelling in both legs. COMPARISON: 11/17/2018. TECHNIQUE: Eight views of the bilateral tibia and fibula. FINDINGS: There is no acute fracture or dislocation of the bilateral tibia and fibula. Alignment is anatomic. No focal osseous lesions are seen. There is generalized soft tissue edema and inflammation throughout the included lower extremities. IMPRESSION: 1. No acute fracture or dislocation in the bilateral tibia and fibula. 2. Diffuse lower extremity edema bilaterally. Findings may represent cellulitis or sequelae of congestive heart failure. Recommend correlation with patient symptoms and history and follow-up as indicated. Dictated by: Dictated on workstation # [id number] Dict: 07/20/21 1252 Trans: 07/20/21 1258 [id number] Interpreted by: OMAR CARDENAS DO Electronically signed by: OMAR CARDENAS DO 07/20/21 1258 Reviewed: Reviewed by Me Departure Impression Primary Impression: Bilateral leg pain Additional Impressions: Bilateral lower extremity edema Frequent falls Disposition: 01 HOME, SELF-CARE Condition: Stable Departure-Patient Inst. Decision time for Depature: 13:42 Referrals: KATIE HUDSON MD (PCP/Family) Primary Care Physician Patient Instructions: Dependent Edema (DC), Muscle Strain ED, Muscle and Bone Pain (DC) Add. Discharge Instructions: Take the furosemide or Lasix as prescribed by Dr. Hudson. This will help to decrease the fluid in your legs and decrease your swelling. Follow up with clinic for continued pain and problems Continue taking your Tramadol, Ibuprofen, Gabapentin, Amitriptylline medicines. These will help with leg pain and neuropathy. Scripts Hydrocodone/Acetaminophen (Hydrocodone-Acetamin 5-325 mg) 1 Each Tablet 1 TAB PO Q4H PRN for PAIN-SEVERE (8-10) for 3 Days, #15 TAB 0 Refills Prov: MIHIR BARNEY MD 07/20/21 MIHIR BARNEY MD Jul 20, 2021 12:16
[2021-07-20 12:17] LABS: BASOPHILS % (AUTO) 1 % (0-10); EOSINOPHILS # (AUTO) 0.2 10^3/uL (0.0-0.3); EOSINOPHILS % (AUTO) 4 % (0-10); HEMATOCRIT 38 % (35-52); LYMPHOCYTES # (AUTO) 1.7 10^3/uL (1.0-4.0); LYMPHOCYTES % (AUTO) 40 % (12-44); MEAN CORPUSCULAR HEMOGLOBIN 35 pg (25-34); MEAN CORPUSCULAR HGB CONC 34 g/dL (32-36); MEAN CORPUSCULAR VOLUME 102 fL (80-99); MEAN PLATELET VOLUME 8.5 fL (9.0-12.2); MONOCYTES # (AUTO) 0.4 10^3/uL (0.0-1.0); MONOCYTES % (AUTO) 9 % (0-12); NEUTROPHILS % (AUTO) 46 % (42-75); PLATELET COUNT 143 10^3/uL (130-400); WHITE BLOOD COUNT 4.3 10^3/uL (4.3-11.0)
[2021-07-20 12:30] VITALS: BP 155/91
[2021-07-20 12:37] LABS: ALBUMIN 3.7 GM/DL (3.2-4.5); BILIRUBIN,TOTAL 0.4 MG/DL (0.1-1.0); CALCIUM 8.6 MG/DL (8.5-10.1); CREATININE SERUM 0.98 MG/DL (0.60-1.30); TOTAL PROTEIN 6.2 GM/DL (6.4-8.2)
--- NOTE | 2021-07-20 12:57 | Diagnostic Imaging Report ---
CLINICAL HISTORY: Pain and swelling in both legs. COMPARISON: 11/17/2018. TECHNIQUE: Eight views of the bilateral tibia and fibula. FINDINGS: There is no acute fracture or dislocation of the bilateral tibia and fibula. Alignment is anatomic. No focal osseous lesions are seen. There is generalized soft tissue edema and inflammation throughout the included lower extremities. IMPRESSION: 1. No acute fracture or dislocation in the bilateral tibia and fibula. 2. Diffuse lower extremity edema bilaterally. Findings may represent cellulitis or sequelae of congestive heart failure. Recommend correlation with patient symptoms and history and follow-up as indicated. Dictated by: Dictated on workstation # [id number]
[2021-07-20 13:20] LABS: BILIRUBIN,URINE NEGATIVE (NEGATIVE); CLARITY,URINE CLEAR; COLOR,URINE YELLOW; GLUCOSE, URINE (UA) NEGATIVE (NEGATIVE); KETONES,URINE NEGATIVE (NEGATIVE); LEUKOCYTE ESTERASE ,URINE NEGATIVE (NEGATIVE); NITRITE,URINE NEGATIVE (NEGATIVE); PROTEIN,URINE NEGATIVE (NEGATIVE)
[2021-07-20 13:36] LABS: BACTERIA,URINE NEGATIVE /HPF
[2021-07-20] MEDS ORDERED: ACHD5005 PO (14:02)
== END 2021-07-20 14:00 | disposition home or self-care (01) ==
LOC: EDUNIT# 11:58 → ER FS 11:59
DX: M79.605 Pain in left leg (principal); M79.604 Pain in right leg; R60.9 Edema, unspecified; R29.6 Repeated falls; E66.01 Morbid (severe) obesity due to excess calories; Z68.42 Body mass index [BMI] 45.0-49.9, adult
CPT/HCPCS: 36415; 80053; 81000; 85025

== ENCOUNTER 2021-08-05 14:42 | Emergency (ER) | payer MEDICAID ==
[2021-08-05] MEDS ORDERED: HYDROcodone/APAP 5 MG/325 MG (LORTAB) TAB PO ONE (15:00)
--- NOTE | 2021-08-05 15:09 | ED Chest Pain ---
General Chief Complaint: Chest Wall Stated Complaint: RIB PAIN Source: patient Exam Limitations: no limitations History of Present Illness Date Seen by Provider: Aug 05, 2021 Time Seen by Provider: 15:45 Initial Comments Patient is a 66-year-old female presents with left anterior lower rib pain after falling from standing yesterday and hitting the edge of her bathtub 5 days. Patient reports pain with deep palpation. Denies shortness of breath, cough cough, fever, abdominal pain. Pain is worse with palpation. Patient has not taken any [id number] pain medication. No other symptoms or complaints. Patient is not currently on anticoagulation therapy. Timing/Duration: 1-3 hours Severity/Quality: moderate Location: substernal, other Radiation: other Prior CP/Workup: other Modifying Factors: improves with other Allergies and Home Medications Allergies Uncoded Allergies: IV CONTRAST (Adverse Reaction, Mild, HIVES, 09/17/18) Patient Home Medication List Home Medication List Reviewed: Yes Acetaminophen (Tylenol Extra Strength) 500 Mg Tablet, 1,000 MG PO Q8H PRN for PAIN-MILD (1-4), (Reported) Entered as Reported by: DOYLE CARRILLO on 02/23/21 1035 Amitriptyline HCl (Amitriptyline HCl) 50 Mg Tablet, 50 MG PO HS, (Reported) Entered as Reported by: DOYLE CARRILLO on 02/23/21 1035 Aspirin (Aspirin EC) 81 Mg Tablet.dr, 81 MG PO DAILY, (Reported) Entered as Reported by: NERIS PRIETO on 10/26/20 0851 Cefdinir (Cefdinir) 300 Mg Capsule, 300 MG PO BID Prescribed by: MARIA DEL ROSARIO DEVINE on 07/01/21 1256 Fluoxetine HCl (Fluoxetine HCl) 40 Mg Capsule, 40 MG PO BID, (Reported) Entered as Reported by: NERIS PRIETO on 10/26/20 0851 Fluticasone Propionate (Flovent Hfa 110 mcg) 1 Ea Aero, 2-4 PUFF IH BID PRN for SHORTNESS OF BREATH, (Reported) Entered as Reported by: DOYLE CARRILLO on 06/30/21 1236 Gabapentin (Gabapentin) 600 Mg Tablet, 600 MG PO TID PRN for NERVE PAIN, (Reported) Entered as Reported by: MINESH CANALES on 09/17/18 1847 Hydrocodone/Acetaminophen (Hydrocodone-Acetamin 5-325 mg) 1 Each Tablet, 1 TAB PO Q4H PRN for PAIN-SEVERE (8-10) Prescribed by: MIHIR BARNEY on 07/20/21 1404 Ibuprofen (Ibuprofen) 800 Mg Tablet, 800 MG PO TID PRN for PAIN-MILD (1-4), (Reported) Entered as Reported by: STACIE BERNAL on 05/15/19 1015 Losartan Potassium (Losartan Potassium) 50 Mg Tablet, 50 MG PO DAILY, (Reported) Entered as Reported by: MINESH CANALES on 09/17/18 1847 Metformin HCl (Metformin HCl) 1,000 Mg Tablet, 1,000 MG PO BID WITH MEALS, (Reported) Entered as Reported by: MINESH CANALES on 09/17/18 184 Multivit-Min/Folic Acid/Biotin (Hair, Skin & Nails Caplet) 1 Each Tablet, 1 EACH PO DAILY, (Reported) Entered as Reported by: DOYLE CARRILLO on 02/23/21 1035 Oxybutynin Chloride (Oxybutynin Chloride) 5 Mg Tablet, 5 MG PO TID PRN for OVERACTIVE BLADDER, (Reported) Entered as Reported by: MINESH CANALES on 09/17/18 184 Tramadol HCl (Tramadol HCl) 50 Mg Tablet, 50 MG PO TID PRN for PAIN-MODERATE (5- 7), (Reported) Entered as Reported by: NERIS PRIETO on 10/26/20 0851 Review of Systems Review of Systems Constitutional: see HPI EENTM: See HPI Respiratory: See HPI Cardiovascular: See HPI Gastrointestinal: See HPI Genitourinary: See HPI Musculoskeletal: see HPI Skin: see HPI Psychiatric/Neurological: See HPI Endocrine: See HPI Hematologic/Lymphatic: See HPI All Other Systems Reviewed Negative Unless Noted: Yes Past Otttesr-Quvmpa-Htaegf Hx Patient Social History Tobacco Use?: Yes Substance use?: No Alcohol Use?: No Pt feels they are or have been: No Immunizations Up To Date Tetanus Booster (TDap): Unknown First/Initial COVID19 Vaccinat: NOT VACCINATED Second COVID19 Vaccination Get: NOT VACCINATED Third COVID19 Vaccination Date: NOT VACCINATED Seasonal Allergies Seasonal Allergies: No Past Medical History Surgery/Hospitalization HX: MRSA APPY C Section Bladder Surgery Stroke with R side residual Cataracts Dilation Urethral structurre HTN Cheek Cellulitis Surgeries: Yes (cystoscopies) Appendectomy, Bladder Surgery, Section, Gallbladder, Tonsillectomy Respiratory: Yes COPD Cardiac: Yes High Cholesterol, Hypertension Neurological: Yes Neuropathy, Stroke Genitourinary: Yes (urethral strictures) UTI-Chronic Gastrointestinal: Yes Gall Bladder Disease Musculoskeletal: Yes Arthritis, Chronic Back Pain Endocrine: Yes Diabetes, Insulin dep HEENT: Yes (decreasing vision with age and due to DM) Hearing Impairment: Denies Cancer: No Psychosocial: No Depression Integumentary: Yes (L ORBITAL CELLULITIS, 2018 CHEEK CELLULITIS) Recent Skin Changes Blood Disorders: No Family Medical History Patient reports no known family medical history. Diabetes, Hypertension Physical Exam Vital Signs Capillary Refill : Height, Weight, BMI Height: 5'6.00" Weight: 290lbs. 1.0oz. 131.541450lz; 50.00 BMI Method:Stated General Appearance: No Apparent Distress Respiratory: Chest Non Tender, Lungs Clear, Other (Left anterior chest wall pain/tenderness to palpation. No crepitus or subcutaneous emphysema) Cardiovascular: Regular Rate, Rhythm, No Edema Neurologic/Psychiatric: Alert, Oriented x3, Normal Mood/Affect Focused Exam Sepsis Stage: Ruled Out Progress/Results/Core Measures Results/Orders My Orders Orders - WEST ELLER DO Ribs 2-3 View Left (08/05/21 14:58) Chest 1 View Ap/Pa Only (08/05/21 14:58) Hydrocodone/Apap 5/325 Tablet (Lortab 5 (08/05/21 15:00) Departure Communication (Admissions) PA chest/left rib series: Pending Patient with reproducible chest wall pain. Vital signs stable. Will obtain chest x-ray/rib series to rule out underlying fracture or pneumothorax. Exam otherwise reassuring. Dissipate discharge home on pain medication with PCP follow-up if negative. Impression Primary Impression: Chest wall pain Additional Impression: Chest wall injury Disposition: HOME, SELF-CARE Condition: Stable Departure-Patient Inst. Decision time for Depature: 15:08 Referrals: KATIE HUDSON MD (PCP) Primary Care Physician Patient Instructions: Blunt Chest Trauma Add. Discharge Instructions: You were evaluated in the emergency department for chest pain. Chest x-ray and rib series was ordered which does not show evidence of an obvious displaced rib fracture. Please take newly prescribed medications as directed and follow-up with your PCP in 3 to 5 days for reevaluation. Return to the ED if new or worsening symptoms. All discharge instructions reviewed with patient and/or family. Voiced understanding. Scripts Hydrocodone/Acetaminophen (Hydrocodone-Acetamin 5-325 mg) 5 Mg-325 Mg Tablet 1 TAB PO Q4H PRN for PAIN-MODERATE (5-7), #14 TAB Prov: WEST ELLER DO 08/05/21 WEST LELER DO Aug 05, 2021 15:09
[2021-08-05] MEDS ORDERED: ACHD5005 PO (15:10)
--- NOTE | 2021-08-05 15:21 | Diagnostic Imaging Report ---
INDICATION: trauma COMPARISON: 04/20/2021 FINDINGS: Single frontal view of the chest demonstrates normal heart size and pulmonary vascularity. The lungs are well aerated and clear. No large pleural effusion or pneumothorax is seen. The visualized osseous structures show no acute abnormalities. IMPRESSION: 1. No acute cardiopulmonary process. Dictated by: Dictated on workstation # [id number]
--- NOTE | 2021-08-05 15:26 | Diagnostic Imaging Report ---
INDICATION: Recent fall. Left-sided chest pain. COMPARISON: 04/20/2021. FINDINGS: Multiple radiographic views of the left ribs were obtained. There are chronic-appearing deformities of the lateral left fifth through eighth ribs consistent with old healed fractures. No displaced acute-appearing rib deformities are seen. Included portions of the left lung are clear. IMPRESSION: 1. Multiple old healed left-sided rib fractures. No gross acute osseous abnormality is seen. Dictated by: Dictated on workstation # [id number]
[2021-08-05 16:01] LABS: BASOPHILS % (AUTO) 0 % (0-10); EOSINOPHILS # (AUTO) 0.1 10^3/uL (0.0-0.3); EOSINOPHILS % (AUTO) 2 % (0-10); HEMATOCRIT 37 % (35-52); HEMOGLOBIN 12.9 g/dL (11.5-16.0); LYMPHOCYTES # (AUTO) 1.8 10^3/uL (1.0-4.0); LYMPHOCYTES % (AUTO) 32 % (12-44); MEAN CORPUSCULAR HEMOGLOBIN 35 pg (25-34); MEAN CORPUSCULAR HGB CONC 35 g/dL (32-36); MEAN CORPUSCULAR VOLUME 100 fL (80-99); MEAN PLATELET VOLUME 8.7 fL (9.0-12.2); MONOCYTES # (AUTO) 0.6 10^3/uL (0.0-1.0); MONOCYTES % (AUTO) 11 % (0-12); NEUTROPHILS % (AUTO) 54 % (42-75); PLATELET COUNT 145 10^3/uL (130-400); WHITE BLOOD COUNT 5.6 10^3/uL (4.3-11.0)
[2021-08-05 16:25] LABS: BILIRUBIN,TOTAL 0.3 MG/DL (0.1-1.0); CALCIUM 8.7 MG/DL (8.5-10.1); CREATININE SERUM 1.04 MG/DL (0.60-1.30); POTASSIUM 4.8 MMOL/L (3.6-5.0); TOTAL PROTEIN 6.4 GM/DL (6.4-8.2)
[2021-08-05] MEDS ORDERED: ONDANSETRON 4 MG/2 ML (SDV) Z0FRAN IVP ONE (16:45)
[2021-08-05] MEDS ORDERED: fentaNYL INJ 100 MCG/2 ML AMP IVP ONE (16:45)
--- NOTE | 2021-08-05 16:47 | Diagnostic Imaging Report ---
EXAMINATION: CT chest, abdomen and pelvis without intravenous contrast. TECHNIQUE: Multiple contiguous axial images were obtained through the chest, abdomen and pelvis without intravenous contrast. All CT scans use one or more of the following dose optimizing techniques: automated exposure control, MA and/or KvP adjustment based on patient size and exam type or iterative reconstruction. HISTORY: Chest and abdomen injury. COMPARISON: 06/01/2021 FINDINGS: There is no edema or pneumonia. No pleural effusion. No pneumothorax. There is mild left base atelectasis or scarring. There is no axillary or supraclavicular lymphadenopathy. There is no mediastinal lymphadenopathy. Heart size is normal. There are no coronary artery calcifications. No pericardial effusion. Aorta is normal in caliber. Alpha node is made of a calcified ductus bump. The liver is normal without focal lesion. There is no biliary ductal dilation. Gallbladder is not seen. Pancreas is normal. Spleen is normal. Adrenal glands are normal. The kidneys are normal. There is no hydronephrosis. Urinary bladder is normal. Bowel is normal in caliber without obstruction or inflammation. No free fluid or air. No abdominal or pelvic lymphadenopathy. Aorta is normal in caliber without aneurysm. There are no suspicious osseus lesions. There are old left-sided rib fractures. No acute rib fracture is seen. There is a hemangioma in T9. IMPRESSION: 1. No acute traumatic injury in the chest, abdomen or pelvis. Dictated by: Dictated on workstation # [id number]
[2021-08-05 17:18] VITALS: BP 150/81
== END 2021-08-05 17:20 | disposition home or self-care (01) ==
LOC: EDUNIT# 14:42 → ER FS 14:45
DX: S29.9XXA Unspecified injury of thorax, initial encounter (principal); Z28.310 Unvaccinated for COVID-19; W01.198A Fall on same level from slipping, tripping and stumbling with subsequent striking against other object, initial encounter
CPT/HCPCS: 36415; 71045; 71100; 71250; 74176; 80053; 85025

== ENCOUNTER 2021-08-14 15:08 | Inpatient (IN) | payer MEDICAID ==
[~2021-08-14] VITALS: Ht 167.7 cm; Wt 148.0 kg
[2021-08-14] MEDS ORDERED: morphine INJ 10 MG/ML 1ML (SYR OR VIAL) IVP STA (15:15)
[2021-08-14 15:27] LABS: BASOPHILS # (AUTO) 0.1 10^3/uL (0.0-0.1); BASOPHILS % (AUTO) 1 % (0-10); EOSINOPHILS # (AUTO) 0.2 10^3/uL (0.0-0.3); EOSINOPHILS % (AUTO) 1 % (0-10); HEMATOCRIT 44 % (35-52); HEMOGLOBIN 14.6 g/dL (11.5-16.0); LYMPHOCYTES % (AUTO) 7 % (12-44); MEAN CORPUSCULAR HEMOGLOBIN 35 pg (25-34); MEAN CORPUSCULAR HGB CONC 33 g/dL (32-36); MEAN CORPUSCULAR VOLUME 105 fL (80-99); MEAN PLATELET VOLUME 8.9 fL (9.0-12.2); MONOCYTES # (AUTO) 0.5 10^3/uL (0.0-1.0); MONOCYTES % (AUTO) 3 % (0-12); NEUTROPHILS # (AUTO) 12.7 10^3/uL (1.8-7.8); NEUTROPHILS % (AUTO) 88 % (42-75); PLATELET COUNT 129 10^3/uL (130-400); WHITE BLOOD COUNT 14.5 10^3/uL (4.3-11.0)
--- NOTE | 2021-08-14 15:42 | ED General ---
General Chief Complaint: Skin/Wound Problems Stated Complaint: RT LEG CELLULITIS Nursing Triage Note: Patient reports increased swelling, redness and pain in her right lower leg since yesterday. Source of Information: Patient, EMS, Old Records History of Present Illness Date Seen by Provider: Aug 14, 2021 Time Seen by Provider: 15:08 Initial Comments 66-year-old female presenting with complaints of right leg pain, redness, swelling that has progressively worsened in the last 24 hours. She has had systemic chills but no fever. She has a history of MRSA and cellulitis in the left leg in the past. She denies any trauma to the leg. She has had ibuprofen at home for pain with little improvement. Due to the pain worsening as well as swelling and redness getting bad in the last 24 hours EMS was activated to bring her to the emergency department. She states that in the past she has had be admitted to the hospital for IV antibiotics Timing/Duration: 24 Hours Severity: Severe Associated Systoms: No Chest Pain, No Cough, No Diaphoresis; Fever/Chills (Chills but no fever); No Headaches, No Loss of Appetite, No Malaise, No Nausea/Vomiting, No Rash, No Seizure, No Shortness of Air, No Syncope, No Weakness Allergies and Home Medications Allergies Uncoded Allergies: IV CONTRAST (Adverse Reaction, Mild, HIVES, 09/17/18) Patient Home Medication List Home Medication List Reviewed: Yes Acetaminophen (Tylenol Extra Strength) 500 Mg Tablet, 1,000 MG PO Q8H PRN for PAIN-MILD (1-4), (Reported) Entered as Reported by: DOYLE CARRILLO on 02/23/21 1035 Amitriptyline HCl (Amitriptyline HCl) 50 Mg Tablet, 50 MG PO HS, (Reported) Entered as Reported by: DOYLE CARRILLO on 02/23/21 1035 Aspirin (Aspirin EC) 81 Mg Tablet.dr, 81 MG PO DAILY, (Reported) Entered as Reported by: NERIS PRIETO on 10/26/20 0851 Cefdinir (Cefdinir) 300 Mg Capsule, 300 MG PO BID Prescribed by: MARIA DEL ROSARIO DEVINE on 07/01/21 1256 Fluoxetine HCl (Fluoxetine HCl) 40 Mg Capsule, 40 MG PO BID, (Reported) Entered as Reported by: NERIS PRIETO on 10/26/20 0851 Fluticasone Propionate (Flovent Hfa 110 mcg) 1 Ea Aero, 2-4 PUFF IH BID PRN for SHORTNESS OF BREATH, (Reported) Entered as Reported by: DOYLE CARRILLO on 06/30/21 1236 Gabapentin (Gabapentin) 600 Mg Tablet, 600 MG PO TID PRN for NERVE PAIN, (Reported) Entered as Reported by: MINESH CANALES on 09/17/181846 Hydrocodone/Acetaminophen (Hydrocodone-Acetamin 5-325 mg) 1 Each Tablet, 1 TAB PO Q4H PRN for PAIN-SEVERE (8-10) Prescribed by: MIHIR BARNEY on 07/20/21 1404 Hydrocodone/Acetaminophen (Hydrocodone-Acetamin 5-325 mg) 5 Mg-325 Mg Tablet, 1 TAB PO Q4H PRN for PAIN-MODERATE (5-7) Prescribed by: WEST ELLER on 08/05/21 1510 Ibuprofen (Ibuprofen) 800 Mg Tablet, 800 MG PO TID PRN for PAIN-MILD (1-4), (Reported) Entered as Reported by: STACIE BERNAL on 05/15/19 1015 Losartan Potassium (Losartan Potassium) 50 Mg Tablet, 50 MG PO DAILY, (Reported) Entered as Reported by: MINESH CANALES on 09/17/181846 Metformin HCl (Metformin HCl) 1,000 Mg Tablet, 1,000 MG PO BID WITH MEALS, (Reported) Entered as Reported by: MINESH CANALES on 09/17/181846 Multivit-Min/Folic Acid/Biotin (Hair, Skin & Nails Caplet) 1 Each Tablet, 1 EACH PO DAILY, (Reported) Entered as Reported by: DOYLE CARRILLO on 02/23/21 1035 Oxybutynin Chloride (Oxybutynin Chloride) 5 Mg Tablet, 5 MG PO TID PRN for OVERACTIVE BLADDER, (Reported) Entered as Reported by: MINESH CANALES on 09/17/181846 Tramadol HCl (Tramadol HCl) 50 Mg Tablet, 50 MG PO TID PRN for PAIN-MODERATE (5- 7), (Reported) Entered as Reported by: NERIS PRIETO on 10/26/20 0851 Review of Systems Review of Systems Constitutional: chills; No fever; malaise EENTM: no symptoms reported Respiratory: no symptoms reported Cardiovascular: no symptoms reported Gastrointestinal: no symptoms reported Genitourinary: no symptoms reported Musculoskeletal: muscle pain (Pain in the right lower extremity where she has swelling, redness, increased warmth) Skin: change in color (Pain in the right lower extremity where she has swelling, redness, increased warmth) Psychiatric/Neurological: Anxiety Hematologic/Lymphatic: Denies Blood Clots Past Hkunozg-Nlguii-Eisowy Hx Patient Social History Tobacco Use?: No Substance use?: No Alcohol Use?: No Pt feels they are or have been: No Immunizations Up To Date Tetanus Booster (TDap): Unknown First/Initial COVID19 Vaccinat: NOT VACCINATED Second COVID19 Vaccination Get: NOT VACCINATED Third COVID19 Vaccination Date: NOT VACCINATED Seasonal Allergies Seasonal Allergies: No Past Medical History Surgery/Hospitalization HX: MRSA APPY C Section Bladder Surgery Stroke with R side residual Cataracts Dilation Urethral structurre HTN Cheek Cellulitis Surgeries: Yes (cystoscopies) Appendectomy, Bladder Surgery, Section, Gallbladder, Tonsillectomy Respiratory: Yes COPD Cardiac: Yes High Cholesterol, Hypertension Neurological: Yes Neuropathy, Stroke Genitourinary: Yes (urethral strictures) UTI-Chronic Gastrointestinal: Yes Gall Bladder Disease Musculoskeletal: Yes Arthritis, Chronic Back Pain Endocrine: Yes Diabetes, Insulin dep HEENT: Yes (decreasing vision with age and due to DM) Hearing Impairment: Denies Cancer: No Psychosocial: No Depression Integumentary: Yes (L ORBITAL CELLULITIS, 2018 CHEEK CELLULITIS) Recent Skin Changes Blood Disorders: No Family Medical History Patient reports no known family medical history. Diabetes, Hypertension Physical Exam Vital Signs Vital Signs - First Documented 08/14/21 15:10 Temp 36.1 Pulse 79 Resp 16 B/P (MAP) 141/69 (93) Pulse Ox 96 O2 Delivery Room Air Capillary Refill : Less Than 3 Seconds Height, Weight, BMI Height: 5'6.00" Weight: 290lbs. 1.0oz. 131.019333vm; 48.00 BMI Method:Stated General Appearance: Anxious, Obese HEENT: PERRL/EOMI, Pharynx Normal Neck: Full Range of Motion, Normal Inspection, Non Tender, Supple Respiratory: Lungs Clear, Normal Breath Sounds, No Accessory Muscle Use, No Respiratory Distress Cardiovascular: Regular Rate, Rhythm, Normal Peripheral Pulses Gastrointestinal: Normal Bowel Sounds, No Pulsatile Mass, Non Tender, Soft; No Distended, No Guarding, No Rebound, No Tenderness; Other (obese abdomen) Rectal: Deferred Extremity: Inflammation (RLE), Pedal Edema (BLE but worse on right leg with w eeping fluid present), Swelling (right lower extremity) Neurologic/Psychiatric: Alert, Oriented x3, testing shaking shipping II-XII Norm as Tested Skin: Warm/Dry Focused Exam Sepsis Stage: Sepsis Possible Source: Skin/Soft Tissue Lactate Level 08/14/21 15:20: Lactic Acid Level 5.43*H 08/14/21 16:30: Time of Focused Exam: 16:05 Respiratory: Chest Non Tender, Lungs Clear, Normal Breath Sounds, No Accessory Muscle Use, No Respiratory Distress Cardiovascular: Regular Rate, Rhythm, Normal Peripheral Pulses Capillary Refill: Less Than 3 Seconds Peripheral Pulses: 2+ Dorsalis Pedis (R), 2+ Left Dors-Pedis (L), 2+ Radial Pulses (R), 2+ Radial Pulses (L) Skin: warm/dry, other (Erythema with increased warmth and swelling to the right lower extremity. There is some serous drainage from the skin.) Lactic Acid Level Laboratory Tests Test 08/14/21 15:20 08/14/21 16:30 Lactic Acid Level 5.43 MMOL/L (0.50-2.00) *H Within 3hrs of presentation: Admin fluids, Admin ABX, Blood cultures prior to ABX's, Focus exam, Lactate level Progress/Results/Core Measures Suspected Sepsis SIRS Temperature: Pulse: 79 Respiratory Rate: 16 Laboratory Tests 08/14/21 15:20: White Blood Count 14.5H Blood Pressure 141 /69 Mean: 93 08/14/21 15:20: Lactic Acid Level 5.43*H 08/14/21 16:30: Laboratory Tests 08/14/21 15:20: Creatinine 1.52H, Platelet Count 129L, Total Bilirubin 0.2 Results/Orders Lab Results Laboratory Tests Test 08/14/21 15:20 08/14/21 16:30 Range/Units White Blood Count 14.5 H 4.3-11.0 10^3/uL Red Blood Count 4.20 3.80-5.11 10^6/uL Hemoglobin 14.6 11.5-16.0 g/dL Hematocrit 44 35-52 % Mean Corpuscular Volume 105 H 80-99 fL Mean Corpuscular Hemoglobin 35 H 25-34 pg Mean Corpuscular Hemoglobin Concent 33 32-36 g/dL Red Cell Distribution Width 13.7 10.0-14.5 % Platelet Count 129 L 130-400 10^3/uL Mean Platelet Volume 8.9 L 9.0-12.2 fL Immature Granulocyte % (Auto) 0 % Neutrophils (%) (Auto) 88 H 42-75 % Lymphocytes (%) (Auto) 7 L 12-44 % Monocytes (%) (Auto) 3 0-12 % Eosinophils (%) (Auto) 1 0-10 % Basophils (%) (Auto) 1 0-10 % Neutrophils # (Auto) 12.7 H 1.8-7.8 10^3/uL Lymphocytes # (Auto) 1.0 1.0-4.0 10^3/uL Monocytes # (Auto) 0.5 0.0-1.0 10^3/uL Eosinophils # (Auto) 0.2 0.0-0.3 10^3/uL Basophils # (Auto) 0.1 0.0-0.1 10^3/uL Immature Granulocyte # (Auto) 0.1 0.0-0.1 10^3/uL Neutrophils % (Manual) 83 % Lymphocytes % (Manual) 13 % Monocytes % (Manual) 1 % Band Neutrophils 3 % Percent Immature Platelet Fraction 0.0-7.6 % Sodium Level 137 135-145 MMOL/L Potassium Level 4.5 3.6-5.0 MMOL/L Chloride Level 102 98-107 MMOL/L Carbon Dioxide Level 22 21-32 MMOL/L Anion Gap 13 5-14 MMOL/L Blood Urea Nitrogen 25 H 7-18 MG/DL Creatinine 1.52 H 0.60-1.30 MG/DL Estimat Glomerular Filtration Rate 38 BUN/Creatinine Ratio 16 Glucose Level 167 H 70-105 MG/DL Lactic Acid Level 5.43 *H 0.50-2.00 MMOL/L Calcium Level 9.2 8.5-10.1 MG/DL Corrected Calcium 9.3 8.5-10.1 MG/DL Total Bilirubin 0.2 0.1-1.0 MG/DL Aspartate Amino Transf (AST/SGOT) 24 5-34 U/L Alanine Aminotransferase (ALT/SGPT) 23 0-55 U/L Alkaline Phosphatase 88 40-136 U/L C-Reactive Protein 0.92 H <0.50 MG/DL Total Protein 6.6 6.4-8.2 GM/DL Albumin 3.9 3.2-4.5 GM/DL My Orders Orders - MIHIR BARNEY MD Cbc With Automated Diff (08/14/21 15:15) Comprehensive Metabolic Panel (08/14/21 15:15) Blood Culture (08/14/21 15:15) Ua Culture If Indicated (08/14/21 15:15) Ed Iv/Invasive Line Start (08/14/21 15:15) Crp Fs (08/14/21 15:15) Lactic Acid Analyzer (08/14/21 15:15) Morphine Injection (Morphine Injection (08/14/21 15:15) Manual Differential (08/14/21 15:20) Ns Iv 1000 Ml (Sodium Chloride 0.9%) (08/14/21 15:53) Vancomycin Injection (Vancomycin Injecti (08/14/21 15:53) Ed Admission (Communication) (08/14/21 15:59) Piperacillin Sodium/Tazobactam (Zosyn Vi (08/14/21 16:02) Vital Signs/I&O 08/14/21 15:10 Temp 36.1 Pulse 79 Resp 16 B/P (MAP) 141/69 (93) Pulse Ox 96 O2 Delivery Room Air Capillary Refill : Less Than 3 Seconds Blood Pressure Mean: 93 Progress Note #1: Progress Note Obtain labs including blood cultures and lactic acid. Will review prior visits to see what antibiotic would be best for her cellulitis in the right lower extremity. Progress Note #2: Time: 15:45 Progress Note Lactic acid came back elevated at 5.43. CBC shows elevated white blood cell count of 14.5. She has chemistry with dehydration showing creatinine up to 1.52 with a baseline usually around 1-1.2. Her vitals remained stable and she has heart rate in the 80s sinus rhythm and normal blood pressure 134/77 oxygen 98 to 100% on room air. Hemodynamically she is stable and could go to a floor bed. Will check with Dr. Oneal the on-call physician for [facility] since the patient follows with Dr. Hudson [id number] Dr. Oneal accepted patient for admission. She will place queued orders on the patient. She requested that Zosyn be added in addition to the vancomycin that I had ordered on the patient. I did also place 2 L of normal saline for her elevated lactic acid. Departure Communication (Admissions) Time/Spoke to Admitting Phy: 15:[address] Oneal the on-call physician for [facility] and she accepted the patient for admission. Will start Zosyn and vancomycin for antibiotic coverage. Giving IV fluids for her elevated lactic acid. She is hemodynamically stable and should be fine for going to the medical surgical unit. Impression Primary Impression: Cellulitis of right lower extremity Additional Impressions: Sepsis Qualified Codes: A41.9 - Sepsis, unspecified organism Dehydration Disposition: 30 STILL A PATIENT Condition: Stable Admissions Decision to Admit Reason: Admit from ER (General) Decision to Admit/Date: Aug 14, 2021 Time/Decision to Admit Time: 15:59 Departure-Patient Inst. Referrals: KATIE HUDSON MD (PCP/Family) Primary Care Physician MIHIR BARNEY MD Aug 14, 2021 15:42
[2021-08-14 15:47] LABS: BAND NEUTROPHILS 3 %; LYMPHOCYTES % (MANUAL) 13 %; MONOCYTES % (MANUAL) 1 %; NEUTROPHILS % (MANUAL) 83 %
[2021-08-14 15:48] LABS: ALBUMIN 3.9 GM/DL (3.2-4.5); BILIRUBIN,TOTAL 0.2 MG/DL (0.1-1.0); CALCIUM 9.2 MG/DL (8.5-10.1); CREATININE SERUM 1.52 MG/DL (0.60-1.30); POTASSIUM 4.5 MMOL/L (3.6-5.0); TOTAL PROTEIN 6.6 GM/DL (6.4-8.2)
[2021-08-14] MEDS ORDERED: NS IV 1000 ML 1,000 ML IV STA (15:53)
[2021-08-14] MEDS ORDERED: VANCOMYCIN INJECTION 1,500 MG in NS IV 500 ML 500 ML IV STA (15:53)
[2021-08-14] MEDS ORDERED: PIPERACILLIN SODIUM/TAZOBACTAM 4.5 GM in NS (IVPB) 100 ML IV STA (16:02)
[2021-08-14] MEDS ORDERED: NALOXONE 0.4 MG/ML 1 ML (NARCAN) VIAL IV PRN (17:30)
[2021-08-14] MEDS ORDERED: VANCOMYCIN INJECTION 0.1 MG in NS (IVPB) 250 ML IV SCH (17:30)
[2021-08-14] MEDS ORDERED: PATIENT MAY USE OWN MEDS, ALL PO SCH (17:30)
[2021-08-14] MEDS ORDERED: diphenhydrAMINE 25 MG TAB (BENADRYL) PO PRN (17:30)
[2021-08-14] MEDS ORDERED: diphenhydrAMINE 50 MG/ML INJ (BENADRYL) IVP PRN (17:30)
[2021-08-14] MEDS ORDERED: ANTACID SUSP 30 ML UDC (MYLANTA) PO PRN (17:30)
[2021-08-14] MEDS ORDERED: polyethylene glycoL POWDER 17 GM (MIRALAX) PACK PO PRN (17:30)
[2021-08-14] MEDS ORDERED: ONDANSETRON 4 MG (ZOFRAN) ORAL DISSOLVE TAB PO PRN (17:30)
[2021-08-14] MEDS ORDERED: ACETAMINOPHEN 325 MG TABLET PO PRN (17:30)
[2021-08-14] MEDS ORDERED: BISACODYL 10 MG SUPP (DULCOLAX) PR PRN (17:30)
[2021-08-14] MEDS ORDERED: ONDANSETRON 4 MG/2 ML (SDV) Z0FRAN IV PRN (17:30)
[2021-08-14 19:04] VITALS: BP 141/69
[2021-08-14] MEDS ORDERED: RT-ALBUTEROL/IPRATROPIUM 3 ML (DUONEB) VIAL INH PRN (19:30)
[2021-08-14] MEDS: morphine INJ 4 MG/ML 1 ML (VIAL/SYRINGE) IV PRN (19:41)
[2021-08-14] MEDS: NS IV 1000 ML 1,000 ML IV SCH (19:42)
[2021-08-14] MEDS: DOCUSATE SODIUM 100 MG (COLACE) CAP PO SCH (19:43)
[2021-08-14 20:19] VITALS: BP 127/73
[2021-08-14] MEDS: inSUlin ASPART (NovoLOG) 1 UNIT/0.01 ML (CHARGE PER UNIT) SC SCH (20:27)
[2021-08-14] MEDS: ENOXAPARIN 60 MG/0.6 ML (LOVENOX) SYR SC SCH (20:37)
[2021-08-14] MEDS: PIPERACILLIN SODIUM/TAZOBACTAM 4.5 GM in NS (IVPB) 100 ML IV SCH (21:24)
--- NOTE | 2021-08-14 22:00 | CONSULTATION REPORT ---
DATE OF SERVICE: ATTENDING PRIMARY CARE PHYSICIAN: Dr. Andrew Celis. HISTORY OF PRESENT ILLNESS: The patient is a 66-year-old female, who presented to [facility] with right leg pain, redness and swelling, which started approximately 1 day ago and has worsened in severity over that timeframe. She has had a history of cellulitis of the left lower extremity in the past and was found to be MRSA. She does not report any trauma or any puncture wounds or lacerations to the lower extremity. There is no fluctuance to indicate any abscess. PAST MEDICAL HISTORY: Hypertension, hypercholesterolemia, neuropathy, history of stroke, chronic urinary tract infection, degenerative joint disease, insulin-dependent diabetes. PAST SURGICAL HISTORY: Appendectomy, bladder suspension, laparoscopic cholecystectomy, tonsillectomy, section. ALLERGIES: IV CONTRAST. MEDICATIONS: Amitriptyline 50 mg daily, aspirin 81 mg daily, cefdinir 300 mg b.i.d., fluoxetine 40 mg b.i.d., fluticasone propionate 2 to 4 puffs b.i.d., gabapentin 600 mg t.i.d. p.r.n., hydrocodone p.r.n., losartan 50 mg daily, metformin 1000 mg b.i.d., oxybutynin 5 mg t.i.d. p.r.n., tramadol p.r.n. SOCIAL HISTORY: Negative smoke, negative alcohol. FAMILY HISTORY: Noncontributory. VITAL SIGNS: Temperature 36.3, blood pressure 127/73, pulse 85, respirations 20, pulse ox 94% on room air. REVIEW OF SYSTEMS: Obese female, currently in no acute distress. She is not experiencing any shortness of breath or difficulty breathing. No chest pain, palpitations, diaphoresis. No nausea, vomiting, no diarrhea or constipation. No fever, chills, no recent inadvertent weight loss. All other review of systems negative. PHYSICAL EXAMINATION: CHEST: Few scattered rales bilaterally. HEART: Regular, no murmurs. EXTREMITIES: There is a redness, swelling, erythema along the ankle distribution of the right leg and more proximally. There is no fluctuance to indicate any abscess. No current drainage. HEENT: No scleral icterus. NECK: No cervical lymphadenopathy. SKIN: Warm, dry. LABORATORY DATA: WBC 14.5, hemoglobin 14.6, hematocrit 44, platelets 129, BUN 25, creatinine 1.52. ASSESSMENT AND PLAN: A 66-year-old female with cellulitis of the right lower extremity. She has had a history of cellulitis of the left lower extremity, which was found to be MRSA. We will recommend continued medical management with gram-positive and gram-negative coverage with Zosyn as well as MRSA coverage with vancomycin and tight glycemic control. We will also recommend a mild compression of the forefoot all the way to above the knee as well as leg elevation as well. We will continue to monitor her progress. Job ID: [id number] DocumentID: [id number] Dictated Date: 08/14/2021 20:43:32 Clamshell Engineer Date: 08/14/2021 21:58:41 Dictated By: VIKI THOMPSON MD
[2021-08-14] MEDS: MELATONIN 3 MG TABLET PO PRN (22:46)
[2021-08-14 23:51] VITALS: BP 131/76
[2021-08-15] MEDS: NS IV 1000 ML 1,000 ML IV SCH ×2 (02:24→11:43)
[2021-08-15 04:14] VITALS: BP 120/75
[2021-08-15] MEDS: PIPERACILLIN SODIUM/TAZOBACTAM 4.5 GM in NS (IVPB) 100 ML IV SCH ×3 (05:51→21:01)
[2021-08-15 05:52] LABS: BASOPHILS % (AUTO) 0 % (0-10); EOSINOPHILS # (AUTO) 0.3 10^3/uL (0.0-0.3); EOSINOPHILS % (AUTO) 3 % (0-10); HEMATOCRIT 39 % (35-52); HEMOGLOBIN 12.9 g/dL (11.5-16.0); LYMPHOCYTES # (AUTO) 0.9 10^3/uL (1.0-4.0); LYMPHOCYTES % (AUTO) 7 % (12-44); MEAN CORPUSCULAR HEMOGLOBIN 35 pg (25-34); MEAN CORPUSCULAR HGB CONC 33 g/dL (32-36); MEAN CORPUSCULAR VOLUME 106 fL (80-99); MEAN PLATELET VOLUME 9.3 fL (9.0-12.2); MONOCYTES # (AUTO) 0.5 10^3/uL (0.0-1.0); MONOCYTES % (AUTO) 3 % (0-12); NEUTROPHILS # (AUTO) 11.8 10^3/uL (1.8-7.8); NEUTROPHILS % (AUTO) 87 % (42-75); PLATELET COUNT 114 10^3/uL (130-400); WHITE BLOOD COUNT 13.6 10^3/uL (4.3-11.0)
[2021-08-15] MEDS: inSUlin ASPART (NovoLOG) 1 UNIT/0.01 ML (CHARGE PER UNIT) SC SCH ×4 (05:52→20:57)
[2021-08-15 06:00] LABS: ALBUMIN 3.1 GM/DL (3.2-4.5); POTASSIUM 4.3 MMOL/L (3.6-5.0)
[2021-08-15 06:01] LABS: CALCIUM 8.1 MG/DL (8.5-10.1)
[2021-08-15 06:02] LABS: TOTAL PROTEIN 5.5 GM/DL (6.4-8.2)
[2021-08-15 06:04] LABS: BILIRUBIN,TOTAL 0.3 MG/DL (0.1-1.0)
[2021-08-15 06:06] LABS: CREATININE SERUM 1.38 MG/DL (0.60-1.30)
--- NOTE | 2021-08-15 06:25 | History & Physical-Hospitalist ---
History of Present Illness HPI/Chief Complaint Chief complaint: Right leg cellulitis History of present illness: This is a 66-year-old white female of [facility] who presented to the ER with complaints of right leg pain found to have severe cellulitis in need of IV antibiotics Dr. THOMPSON has been consulted in case abscess forms. Patient is maintained on anticoagulation. Patient reports that she has had this issue before but it is worse every time it occurs. Her BMI of 53 causes lymphedema and subsequent high risk for cellulitis. Home medications were reviewed and restarted. Source: patient Exam Limitations: no limitations Date Seen 08/15/21 Time Seen by a Provider: 11:30 Attending Physician Bisi Oneal DO PCP Andrew Celsi MD Referring Physician Date of Admission Aug 14, 2021 at 17:23 Home Medications & Allergies Home Medications Reviewed patient Home Medication Reconciliation performed by pharmacy medication reconciliations instructional media services technician and/or nursing. Patients Allergies have been reviewed. Allergies Allergies Uncoded Allergies IV CONTRAST ( Adverse Reaction, Mild, HIVES, 09/17/18) Past Imznonn-Tqdsfp-Bulery Hx Patient Social History Marrital Status: single Employed/Student: retired Tobacco Use?: No Smoking Status: Unknown if Ever Smoked Use of E-Cig and/or Vaping dev: No Substance use?: No Alcohol Use?: No Alcohol Frequency: Rarely Pt feels they are or have been: No Immunizations Up To Date First/Initial COVID19 Vaccinat: NOT VACCINATED Second COVID19 Vaccination Get: NOT VACCINATED Tetanus Booster (TDap): More Than 5 Years Date of Pneumonia Vaccine: Apr 17, 2015 Seasonal Allergies Seasonal Allergies: No Current Status status: No status: No Advance Directives: No Communicates: Does Not Communicate Primary Language: Romanian Preferred Spoken Language: Romanian Is interpretation needed?: No Past Medical History Surgeries: Appendectomy, Bladder Surgery, Section, Gallbladder, Tonsillectomy COPD High Cholesterol, Hypertension Neuropathy, Stroke UTI-Chronic Gall Bladder Disease Arthritis, Chronic Back Pain Diabetes, Insulin dep Hearing Impairment: Denies Depression Recent Skin Changes Blood Disorders: No HTN IDDM Chronic pain Family Medical History Patient reports no known family medical history. Diabetes, Hypertension Review of Systems Constitutional: see HPI, malaise, weakness EENTM: no symptoms reported Respiratory: no symptoms reported Cardiovascular: no symptoms reported Gastrointestinal: no symptoms reported Genitourinary: no symptoms reported Musculoskeletal: back pain, joint pain, muscle pain, muscle stiffness, muscle cramps Skin: no symptoms reported Psychiatric/Neurological: Depressed All Other Systems Reviewed Negative Unless Noted: Yes Physical Exam Physical Exam Vital Signs Vital Signs - First Documented 08/14/21 08/14/21 15:10 19:04 Temp 36.1 Pulse 79 Resp 16 B/P (MAP) 141/69 (93) Pulse Ox 96 O2 Delivery Room Air FiO2 21 Capillary Refill : Less Than 3 Seconds Height, Weight, BMI Height: 5'6.00" Weight: 290lbs. 1.0oz. 131.624122ah; 52.62 BMI Method:Stated General Appearance: No Apparent Distress, Anxious, Chronically ill, Obese Eyes: Right Eye Normal Inspection, Right Eye PERRL HEENT: PERRL/EOMI, Normal ENT Inspection, Pharynx Normal, Moist Mucous Membranes Neck: Full Range of Motion, Normal Inspection, Non Tender Respiratory: Chest Non Tender, Lungs Clear, Normal Breath Sounds, No Accessory Muscle Use, No Respiratory Distress Cardiovascular: Regular Rate, Rhythm, No Gallop, No JVD, No Murmur, Normal Peripheral Pulses Gastrointestinal: Normal Bowel Sounds, No Organomegaly, No Pulsatile Mass, Non Tender, Soft Back: Normal Inspection, No CVA Tenderness, No Vertebral Tenderness Extremity: Normal Capillary Refill, Normal Inspection, Normal Range of Motion, Non Tender, No Calf Tenderness (Except right leg), Calf Tenderness (Right leg), Pedal Edema Neurologic/Psychiatric: Alert, Oriented x3, No Motor/Sensory Deficits, Normal Mood/Affect Skin: Normal Color, Warm/Dry, Rash (Erythema right leg) Lymphatic: No Adenopathy Results Results/Procedures Labs Laboratory Tests 08/14/21 15:20 08/15/21 05:35 Patient resulted labs reviewed. Assessment/Plan Admission Diagnosis Assessment: Right leg cellulitis Diabetes BMI 53 Hypertension Hyperlipidemia CVA history Plan: IV antibiotics Dr. THOMPSON consult Supportive care Admission Status: Inpatient Order (span 2 midnights) Reason for Inpatient Admission: Right leg cellulitis Clinical Quality Measures DVT/VTE Risk/Contraindication: Contraindications-Mechi: Other *list below* Other: cellulitis BISI ONEAL DO August 15, 2021 06:25
[2021-08-15 07:33] VITALS: BP 110/69
[2021-08-15] MEDS: DOCUSATE SODIUM 100 MG (COLACE) CAP PO SCH ×2 (08:19→20:55)
[2021-08-15] MEDS: ENOXAPARIN 60 MG/0.6 ML (LOVENOX) SYR SC SCH ×2 (08:19→20:56)
[2021-08-15] MEDS: morphine INJ 4 MG/ML 1 ML (VIAL/SYRINGE) IV PRN ×2 (09:06→14:04)
--- NOTE | 2021-08-15 09:47 | Progress Note ---
Subjective Date Seen by a Provider: August 15, 2021 Time Seen by a Provider: 08:50 Subjective/Events-last exam Patient seen with Dr. Mackey. Patient reports right lower extremity pain. Denies any fever/chill, nausea/vomiting. Tolerating diet. Focused Exam Lactate Level 08/14/21 15:20: Lactic Acid Level 5.43*H 08/14/21 16:30: Lactic Acid Level 5.53*H Time of Focused Exam: 16:05 Objective Exam Vital Signs Date Time Temp Pulse Resp B/P (MAP) Pulse Ox O2 Delivery O2 Flow Rate FiO2 08/15/21 08:00 Room Air 08/15/21 07:33 37.1 83 20 110/69 (83) 94 Room Air 08/15/21 04:14 36.8 87 17 120/75 (90) 94 Room Air 08/14/21 23:51 36.8 85 20 131/76 (94) 94 Room Air 08/14/21 20:19 36.3 85 20 127/73 (91) 94 Room Air 08/14/21 19:40 Room Air 08/14/21 19:04 36.1 79 96 21 08/14/21 17:55 Room Air 08/14/21 16:39 36.8 79 16 123/76 94 Room Air 08/14/21 15:10 36.1 79 16 141/69 (93) 96 Room Air I & O 08/15/21 07:00 Intake Total 1220 ml Output Total 600 ml Balance 620 ml Capillary Refill : Less Than 3 Seconds General Appearance: No Apparent Distress, WD/WN, Obese Neck: Normal Inspection, Supple Respiratory: No Accessory Muscle Use, No Respiratory Distress Gastrointestinal: normal bowel sounds, non tender, soft Extremity: Other (Right lower extremity redness/erythema and edema of foot and distal half of lower extremity. There are a couple areas that are weeping serous fluid.) Neurologic/Psychiatric: Alert, Oriented x3 Results Lab Laboratory Tests 08/14/21 15:20: White Blood Count 14.5H, Red Blood Count 4.20, Hemoglobin 14.6, Hematocrit 44, Mean Corpuscular Volume 105H, Mean Corpuscular Hemoglobin 35H, Mean Corpuscular Hemoglobin Concent 33, Red Cell Distribution Width 13.7, Platelet Count 129L, Mean Platelet Volume 8.9L, Immature Granulocyte % (Auto) 0, Neutrophils (%) (Auto) 88H, Lymphocytes (%) (Auto) 7L, Monocytes (%) (Auto) 3, Eosinophils (%) (Auto) 1, Basophils (%) (Auto) 1, Neutrophils # (Auto) 12.7H, Lymphocytes # (Auto) 1.0, Monocytes # (Auto) 0.5, Eosinophils # (Auto) 0.2, Basophils # (Auto) 0.1, Immature Granulocyte # (Auto) 0.1, Neutrophils % (Manual) 83, Lymphocytes % (Manual) 13, Monocytes % (Manual) 1, Band Neutrophils 3, Percent Immature Platelet Fraction , Sodium Level 137, Potassium Level 4.5, Chloride Level 102, Carbon Dioxide Level 22, Anion Gap 13, Blood Urea Nitrogen 25H, Creatinine 1.52H , Estimat Glomerular Filtration Rate 38, BUN/Creatinine Ratio 16, Glucose Level 167H, Lactic Acid Level 5.43*H, Calcium Level 9.2, Corrected Calcium 9.3, Total Bilirubin 0.2, Aspartate Amino Transf (AST/SGOT) 24, Alanine Aminotransferase (ALT/SGPT) 23, Alkaline Phosphatase 88, C-Reactive Protein 0.92H, Total Protein 6.6, Albumin 3.9 08/14/21 16:30: Lactic Acid Level 5.53*H 08/14/21 20:23: Glucometer 174H 08/15/21 05:34: Glucometer 174H 08/15/21 05:35: White Blood Count 13.6H, Red Blood Count 3.67L, Hemoglobin 12.9, Hematocrit 39, Mean Corpuscular Volume 106H, Mean Corpuscular Hemoglobin 35H, Mean Corpuscular Hemoglobin Concent 33, Red Cell Distribution Width 13.5, Platelet Count 114L, Mean Platelet Volume 9.3, Immature Granulocyte % (Auto) 1, Neutrophils (%) (Auto) 87H, Lymphocytes (%) (Auto) 7L, Monocytes (%) (Auto) 3, Eosinophils (%) (Auto) 3, Basophils (%) (Auto) 0, Neutrophils # (Auto) 11.8H, Lymphocytes # (Auto) 0.9L, Monocytes # (Auto) 0.5, Eosinophils # (Auto) 0.3, Basophils # (Auto) 0.0, Immature Granulocyte # (Auto) 0.1, Sodium Level 138, Potassium Level 4.3, Chloride Level 107, Carbon Dioxide Level 19L, Anion Gap 12, Blood Urea Nitrogen 26H, Creatinine 1.38H, Estimat Glomerular Filtration Rate 42, BUN/ Creatinine Ratio 19, Glucose Level 185H, Calcium Level 8.1L, Corrected Calcium 8.8, Total Bilirubin 0.3, Aspartate Amino Transf (AST/SGOT) 22, Alanine Aminotransferase (ALT/SGPT) 26, Alkaline Phosphatase 86, Total Protein 5.5L, Albumin 3.1L Assessment/Plan Assessment/Plan Assess & Plan/Chief Complaint A 66-year-old female with cellulitis of the right lower extremity, history of MRSA VSS WBC down to 13.6 Continue IV abx Pain meds PRN Compression with shine wrap and elevation of right lower extremity Labs in AM Clinical Quality Measures DVT/VTE Risk/Contraindication: Contraindications-Mechi: Other *list below* Other: cellulitis 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
[2021-08-15 11:22] VITALS: BP 116/72
[2021-08-15] MEDS ORDERED: OXYBUTYNIN (DITROPAN) 5 MG TAB PO PRN (13:00)
[2021-08-15] MEDS ORDERED: FLUTICASONE 110 MCG (FLOVENT) 12 GM NON-FORMULARY IH PRN (13:00)
[2021-08-15] MEDS ORDERED: FLUTICASONE 100 MCG 14's (ARNUITY) IH PRN (13:15)
[2021-08-15 16:06] VITALS: BP 131/77
[2021-08-15] MEDS: metFORMIN 500 MG (GLUCOPHAGE) TAB PO SCH (17:02)
[2021-08-15] MEDS: VANCOMYCIN 1500 MG/NS 500 ML IVPB IV SCH ×2 (17:03)
[2021-08-15 20:00] VITALS: BP 160/68
[2021-08-15] MEDS: MELATONIN 3 MG TABLET PO PRN (20:56)
[2021-08-15] MEDS: AMITRIPTYLINE 25 MG (ELAVIL) TAB PO SCH (20:56)
[2021-08-15] MEDS: FLUoxetine HCL 20 MG (PROzac) CAP PO SCH (20:56)
[2021-08-16] VITALS: BP 135/61
[2021-08-16 04:00] VITALS: BP 139/61
[2021-08-16] MEDS: inSUlin ASPART (NovoLOG) 1 UNIT/0.01 ML (CHARGE PER UNIT) SC SCH ×4 (05:21→21:00)
[2021-08-16] MEDS: PIPERACILLIN SODIUM/TAZOBACTAM 4.5 GM in NS (IVPB) 100 ML IV SCH ×3 (05:26→21:00)
[2021-08-16 05:37] LABS: BASOPHILS % (AUTO) 0 % (0-10); EOSINOPHILS # (AUTO) 0.3 10^3/uL (0.0-0.3); EOSINOPHILS % (AUTO) 2 % (0-10); HEMATOCRIT 40 % (35-52); HEMOGLOBIN 12.7 g/dL (11.5-16.0); LYMPHOCYTES # (AUTO) 1.4 10^3/uL (1.0-4.0); LYMPHOCYTES % (AUTO) 9 % (12-44); MEAN CORPUSCULAR HEMOGLOBIN 35 pg (25-34); MEAN CORPUSCULAR HGB CONC 32 g/dL (32-36); MEAN CORPUSCULAR VOLUME 109 fL (80-99); MEAN PLATELET VOLUME 10.8 fL (9.0-12.2); MONOCYTES # (AUTO) 1.1 10^3/uL (0.0-1.0); MONOCYTES % (AUTO) 7 % (0-12); NEUTROPHILS # (AUTO) 11.9 10^3/uL (1.8-7.8); NEUTROPHILS % (AUTO) 79 % (42-75); PLATELET COUNT 78 10^3/uL (130-400); WHITE BLOOD COUNT 15.1 10^3/uL (4.3-11.0)
[2021-08-16 05:49] LABS: ALBUMIN 2.9 GM/DL (3.2-4.5); POTASSIUM 4.9 MMOL/L (3.6-5.0)
[2021-08-16 05:50] LABS: CALCIUM 7.9 MG/DL (8.5-10.1)
[2021-08-16 05:52] LABS: TOTAL PROTEIN 5.5 GM/DL (6.4-8.2)
[2021-08-16 05:53] LABS: BILIRUBIN,TOTAL 0.4 MG/DL (0.1-1.0)
[2021-08-16 05:55] LABS: CREATININE SERUM 1.23 MG/DL (0.60-1.30)
--- NOTE | 2021-08-16 06:14 | Progress Note - Hospitalist ---
Subjective HPI/CC On Admission Date Seen by Provider: August 16, 2021 Time Seen by Provider: 09:30 Chief complaint: Right leg cellulitis History of present illness: This is a 66-year-old white female of [facility] who presented to the ER with complaints of right leg pain found to have severe cellulitis in need of IV antibiotics Dr. THOMPSON has been consulted in case abscess forms. Patient is maintained on anticoagulation. Patient reports that she has had this issue before but it is worse every time it occurs. Her BMI of 53 causes lymphedema and subsequent high risk for cellulitis. Home medications were reviewed and restarted. Subjective/Events-last exam Patient doing about the same Pain is about the same Reviewed meds and labs IV antibiotics continue Appreciate general surgery consultation Review of Systems General: Fatigue, Malaise Musculoskeletal: leg pain Focused Exam Lactate Level 08/14/21 15:20: Lactic Acid Level 5.43*H 08/14/21 16:30: Lactic Acid Level 5.53*H Time of Focused Exam: 16:05 Objective Exam Vital Signs Vital Signs Date Time Temp Pulse Resp B/P (MAP) Pulse Ox O2 Delivery O2 Flow Rate FiO2 08/16/21 10:47 97 Nasal Cannula 2.00 08/16/21 07:55 37.4 84 16 118/56 (76) 08/14/21 19:04 21 Capillary Refill : Less Than 3 Seconds General Appearance: No Apparent Distress, WD/WN, Chronically ill, Obese Respiratory: Lungs Clear, Normal Breath Sounds Cardiovascular: Regular Rate, Rhythm Neurologic/Psychiatric: Alert, Oriented x3, No Motor/Sensory Deficits, Normal Mood/Affect Results/Procedures Lab Laboratory Tests 08/16/21 04:57 Patient resulted labs reviewed. Assessment/Plan Assessment and Plan Assess & Plan/Chief Complaint Assessment: Right leg cellulitis Diabetes BMI 53 Hypertension Hyperlipidemia CVA history Plan: IV antibiotics Dr. THOMPSON consult Supportive care 08/16/2021: Supportive care IV antibiotics PT and OT Clinical Quality Measures DVT/VTE Risk/Contraindication: Contraindications-Mechi: Other *list below* Other: cellulitis ALTHEA NEWMAN DO August 16, 2021 06:14
[2021-08-16 07:55] VITALS: BP 118/56
[2021-08-16] MEDS: ENOXAPARIN 60 MG/0.6 ML (LOVENOX) SYR SC SCH ×2 (09:10→21:00)
[2021-08-16] MEDS: DOCUSATE SODIUM 100 MG (COLACE) CAP PO SCH ×2 (09:10→21:01)
[2021-08-16] MEDS: ASPIRIN E.C. 81 MG (ECOTRIN) TAB PO SCH (09:10)
[2021-08-16] MEDS: metFORMIN 500 MG (GLUCOPHAGE) TAB PO SCH ×2 (09:10→19:16)
[2021-08-16] MEDS: LOSARTAN 50 MG (COZAAR) TAB PO SCH (09:10)
[2021-08-16] MEDS: FLUoxetine HCL 20 MG (PROzac) CAP PO SCH ×2 (09:10→21:01)
--- NOTE | 2021-08-16 10:10 | Occupational Therapy Eval ---
OT Evaluation-General/PLF Medical Diagnosis Admission Date Aug 14, 2021 at 17:23 Medical Diagnosis: RLE cellulitis, dehydration Onset Date: Aug 14, 2021 Therapy Diagnosis Therapy Diagnosis: decreased ADL status Height/Weight Height (Feet): 5 Height (Inches): 6.00 Weight (Pounds): 290 Weight (Ounces): 1.0 Precautions Precautions/Isolations: Fall Prevention, Standard Precautions Referral Physician: Randal Referral Reason: Evaluation/Treatment Medical History Pertinent Medical History: Arthritis, CAD, CVA, DM, Neuropathy, Smoking Additional Medical History COPD, HTN, neuropathy, CVA, chronic UTI, arthritis, DM, depression Current History ED c/o R leg pain, found to have severe cellulitis requiring antibiotics. Social History Home: Multilevel Current Living Status: Children (son) Entry Into Home: Stairs Without Railing Steps Into Home: 3 Pt able to reside on 1st level ADL-Prior Level of Function SCALE: Activities may be completed with or without assistive devices. 6-Xsjydieljj-qolyqbb completes the activity by him/herself with no assistance from a helper. 5-Set-up or Clean-up Assistance-helper sets up or cleans up; patient completes activity. [place] assists only prior to or following the activity. 4-Supervision or Touching Assistance-helper provides verbal cues and/or touching/steadying and/or contact guard assistance as patient completes activity. Assistance may be provided throughout the activity or intermittently. 3-Partial/Moderate Assistance-helper does LESS THAN HALF the effort. [place] lifts, holds or supports trunk or limbs, but provides less than half the effort. 2-Substantial/Maximal Assistance-helper does MORE THAN HALF the effort. [place] lifts or holds trunk or limbs and provides more than half the effort. 3-Nniddiium-chyzek does ALL the effort. Patient does none of the effort to complete the activity. Or, the assistance of 2 or more helpers is required for the patient to complete the activity. If activity was not attempted, code reason: 7-Patient Refused. 9-Not Applicable-not attempted and the patient did not perform the activity before the current illness, exacerbation or injury. 10-Not Attempted due to Environmental Limitations-(lack of equipment, weather restraints, etc.). 88-Not Attempted due to Medical Conditions or Safety Concerns. ADL PLOF Comments Pt reports IND with ADLs and functional mobility, using walker at baseline. She has a tub/shower with SC. Self Care: Independent Functional Cognition: Independent DME/Equipment: Bath Chair, Tub/Shower OT Current Status Subjective Pt in bed, agreeable to OT Tx. Pt adamently refused all OOB/EOB activities on this date due to RLE being wrapped and pain with movement. Mental Status/Objective Patient Orientation: Person, Place, Situation Attachments: IV Current Hand Dominance: Right Upper Extremity ROM WFL, BUE shoulder flexion to approx 150 degrees Upper Extremity Coordination WFL Upper Extremity Strength grossly 3+/5 ADL-Treatment Eating (QC): 6 (IND with breakfast.) Oral Hygiene (QC): 5 (per clinical judgment.) On/Off Footwear (QC): 7 (Pt refused task due to R leg pain with movement.) Toileting Hygiene (QC): 1 (per nursing report total assist.) Other Treatments Pt in bed, in reclined position eating breakfast. OT encouraged pt to elevate HOB or sit EOB for safety with eating, pt refused. Pt continued to eat fruit in reclined position throughout conversation. Pt provided information about PLOF an d home set up, indicating she lives with her son in 2 story house, but she is able to stay on just the 1st level. Pt finished breakfast, OT encouraged pt to attempt to sit EOB or transfer to recliner, but she again refused, c/o RLE pain with movement. Pt agreeable to only UE exercises at bed level in order to increase strength and activity tolerance. Pt completed x10 reps each of the following: shoulder flexion, front punch, and elbow flexion/extension. OT positioned tray table to pt's comfort. Post tx, pt in bed, call light in reach and all needs met. Education OT Patient Education: Correct positioning, Energy conservation, Exercise program, Modified ADL techniques, Progress toward Goal/Update tx plan, Purpose of tx/functional activities, Rehab process Teaching Recipient: Patient Teaching Methods: Discussion Response to Teaching: Verbalize Understanding OT Wheel Presser Goals Halfway Goals Time Frame: September 03, 2021 Eating (QC): 6 Oral Hygiene (QC): 5 Toileting Hygiene (QC): 4 Shower/Bathe Self (QC): 4 Upper Body Dressing (QC): 5 Lower Body Dressing (QC): 4 On/Off Footwear (QC): 3 Additional Goals: 1-Demonstrate ADL Tasks, 2-Verbalize Understanding, 3- ImproveStrength/Ezra 1=Demonstrate adherence to instructed precautions during ADL tasks. 2=Patient will verbalize/demonstrate understanding of assistive devices/modifications for ADL. 3=Patient will improve strength/tolerance for activity to enable patient to perform ADL's. OT Education/Plan Problem List/Assessment Assessment: Decreased Activ Tolerance, Decreased UE Strength, Impaired Bed Mobility, Impaired Funct Balance, Impaired I ADL's, Impaired Self-Care Skills Discharge Recommendations Plan/Recommendations: Continue POC Treatment Plan/Plan of Care Patient would benefit from OT for education, treatment and training to promote independence in ADL's, mobility, safety and/or upper extremity function for ADL's. Plan of Care: ADL Retraining, Functional Mobility, UE Funct Exercise/Act Treatment Duration: September 03, 2021 Frequency: 3 times per week (3-5 times per wek) Rehab Potential: Guarded Time/GCodes Start Time: 09:30 Stop Time: 09:40 Total Time Billed (hr/min): 10 Billed Treatment Time 1, DAVID BRANTLEY OT August 16, 2021 10:10
--- NOTE | 2021-08-16 11:44 | Physical Therapy Evaluation ---
PT Evaluation-General Medical Diagnosis Admission Date Aug 14, 2021 at 17:23 Medical Diagnosis: RLE cellulitis, dehydration Onset Date: Aug 14, 2021 Therapy Diagnosis Therapy Diagnosis: Impaired mobility, strength Height/Weight Height (Feet): 5 Height (Inches): 6.00 Weight (Pounds): 290 Weight (Ounces): 1.0 Precautions Precautions/Isolations: Fall Prevention, Standard Precautions Referral Physician: Kimmy Reason for Referral: Evaluation/Treatment Medical History Pertinent Medical History: Arthritis, CAD, COPD, CVA, DM, Neuropathy, Smoking Additional Medical History Surgeries: Appendectomy, Bladder Surgery, Section, Gallbladder, Tonsillectomy. High Cholesterol, Hypertension, Neuropathy, UTI-Chronic, Gall Bladder Disease, Chronic Back Pain Diabetes (Insulin dep), Depression Reviewed History: Yes Social History Home: [facility] Current Living Status: Children (son) Entry Into Home: Stairs Without Railing PT Steps Into Home: 3 Prior Prior Level of Function SCALE: Activities may be completed with or without assistive devices. 8-Omrosubzke-ymjnkoc completes the activity by him/herself with no assistance from a helper. 5-Set-up or Clean-up Assistance-helper sets up or cleans up; patient completes activity. [place] assists only prior to or following the activity. 4-Supervision or Touching Assistance-helper provides verbal cues and/or touching/steadying and/or contact guard assistance as patient completes activity. Assistance may be provided throughout the activity or intermittently. 3-Partial/Moderate Assistance-helper does LESS THAN HALF the effort. [place] lifts, holds or supports trunk or limbs, but provides less than half the effort. 2-Substantial/Maximal Assistance-helper does MORE THAN HALF the effort. [place] lifts or holds trunk or limbs and provides more than half the effort. 8-Yidlpsgsk-thrfxo does ALL the effort. Patient does none of the effort to complete the activity. Or, the assistance of 2 or more helpers is required for the patient to complete the activity. If activity was not attempted, code reason: 7-Patient Refused. 9-Not Applicable-not attempted and the patient did not perform the activity before the current illness, exacerbation or injury. 10-Not Attempted due to Environmental Limitations-(lack of equipment, weather restraints, etc.). 88-Not Attempted due to Medical Conditions or Safety Concerns. Bed Mobility: 6 Transfers (B,C,W/C): 6 Gait: 6 Stairs: 6 Indoor Mobility (Ambulation): Independent Stairs: Independent Prior Devices Use: Walker PT Evaluation-Current Subjective Patient was in bed upon entering. She refused any out of bed activity or even sitting to the side of the bed. Pain Numeric Pain Scale: 9 Location: Right Location Body Site: Calf Pt/Family Goals To be independent at home. Objective Patient Orientation: Person, Place, Situation ROM/Strength ROM Lower Extremities Significantly impaired R>L Strength Lower Extremities R LE: Unable to assess MMT due to lack of AROM. L LE: (hip flexion 3+/5, Knee extension 3+/5, Knee flexion 4-/5, DF 4/5) Integumentary/Posture Bowel Incontinence: No Bladder Incontinence: No Sensory Vision: Functional Hearing: Functional Hand Dominance: Right Sensation Right Lower Extremit: Intact Sensation Left Lower Extremity: Intact Transfers Patient refused to transfer at this time. Bed exercises were given. Gait Does the Patient Walk?: No and Walking Goal IS indicated Treatment LE strengthening: Ankle pumps (20reps), Heel slides (10reps) , SLR (10reps), Glute sets (10reps) Assessment/Needs Patient significantly lacks ROM and strength in the R and L LE, although had more active ROM on the L. Patient refused to attempt to get out of bed at this time, and seemed unmotivated with LE exercises. Patient was left in bed with call light tray and all needs met. 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 Time Frame: August 23, 2021 Roll Left & Right (QC): 6 Sit to Lying (QC): 6 Lying-Sitting on Side/Bed(QC): 6 Sit to Stand (QC): 6 Chair/Mlo-by-Fhcee Xfer(QC): 6 Toilet Transfer (QC): 6 Car Transfer (QC): 6 Walk 10 feet (QC): 4 Walk 50ft with 2 Turns (QC): 4 PT Plan Problem List Problem List: Activity Tolerance, Functional Strength, Safety, Balance, Gait, Transfer, Bed Mobility, ROM Treatment/Plan Treatment Plan: Continue Plan of Care Treatment Plan: Bed Mobility, Education, Functional Activity Ezra, Functional Strength, Group Therapy, Gait, Safety, Therapeutic Exercise, Transfers Treatment Duration: August 23, 2021 Frequency: 6 times per week Estimated Hrs Per Day: .25 hour per day Patient and/or Family Agrees t: Yes Safety Risks/Education Patient Education: Correct Positioning, Safety Issues Teaching Recipient: Patient Teaching Methods: Discussion Response to Teaching: Verbalize Understanding Discharge Recommendations Plan To work on strengthening and mobility to be independent at home. Time/GCodes Time In: 1107 Time Out: 1117 Total Billed Treatment Time: 10 Total Billed Treatment 1 visit EVM 10min MARCO FRNACO PT August 16, 2021 11:43
[2021-08-16 11:50] VITALS: BP 112/62
[2021-08-16 16:07] VITALS: BP 120/55
--- NOTE | 2021-08-16 17:00 | Progress Note ---
Subjective Date Seen by a Provider: August 16, 2021 Time Seen by a Provider: 16:30 Subjective/Events-last exam Patient seen with Dr. Mackey. Patient reports doing ok. Still reports pain of the right lower extremity. Denies any fever/chills. Tolerating diet. Focused Exam Lactate Level 08/14/21 15:20: Lactic Acid Level 5.43*H 08/14/21 16:30: Lactic Acid Level 5.53*H Time of Focused Exam: 16:05 Objective Exam Vital Signs Date Time Temp Pulse Resp B/P (MAP) Pulse Ox O2 Delivery O2 Flow Rate FiO2 08/16/21 16:07 36.5 82 20 120/55 (76) 100 Nasal Cannula 2.00 08/16/21 11:50 37.2 82 16 112/62 (79) 95 Nasal Cannula 2.00 08/16/21 10:47 97 Nasal Cannula 2.00 08/16/21 08:21 Nasal Cannula 2.00 08/16/21 07:55 37.4 84 16 118/56 (76) 95 Nasal Cannula 2.00 08/16/21 05:25 37.7 08/16/21 05:24 37.7 08/16/21 04:00 38.3 96 19 139/61 (87) 89 Room Air 08/16/21 03:55 38.3 08/16/21 00:00 37.8 95 21 135/61 (85) 91 Room Air 08/15/21 20:55 Room Air 08/15/21 20:00 37.5 99 18 160/68 (98) 96 Room Air I & O 08/16/21 07:00 Intake Total 2817 ml Output Total 1350 ml Balance 1467 ml Capillary Refill : Less Than 3 Seconds General Appearance: No Apparent Distress, WD/WN, Obese Neck: Normal Inspection, Supple Respiratory: No Accessory Muscle Use, No Respiratory Distress Cardiovascular: Regular Rate, Rhythm, No Edema Gastrointestinal: normal bowel sounds, non tender, soft Extremity: Other (Continue mild redness/erythema of the right distal half of the lower extremity and foot. Edema improved.) Neurologic/Psychiatric: Alert, Oriented x3 Results Lab Laboratory Tests 08/15/21 20:26: Glucometer 221H 08/16/21 04:57: White Blood Count 15.1H, Red Blood Count 3.61L, Hemoglobin 12.7, Hematocrit 40, Mean Corpuscular Volume 109H, Mean Corpuscular Hemoglobin 35H, Mean Corpuscular Hemoglobin Concent 32, Red Cell Distribution Width 13.7, Platelet Count 78L, Mean Platelet Volume 10.8, Immature Granulocyte % (Auto) 3, Neutrophils (%) (Auto) 79H, Lymphocytes (%) (Auto) 9L, Monocytes (%) (Auto) 7, Eosinophils (%) (Auto) 2, Basophils (%) (Auto) 0, Neutrophils # (Auto) 11.9H, Lymphocytes # (Auto) 1.4, Monocytes # (Auto) 1.1H, Eosinophils # (Auto) 0.3, Basophils # (Auto) 0.0, Immature Granulocyte # (Auto) 0.5H, Sodium Level 136, Potassium Level 4.9, Chloride Level 109H, Carbon Dioxide Level 16L, Anion Gap 11, Blood Urea Nitrogen 25H, Creatinine 1.23, Estimat Glomerular Filtration Rate 48, BUN/Creatinine Ratio 20, Glucose Level 164H, Calcium Level 7.9L, Corrected Calcium 8.8, Total Bilirubin 0.4, Aspartate Amino Transf (AST/SGOT) 25, Alanine Aminotransferase (ALT/SGPT) 25, Alkaline Phosphatase 88, Total Protein 5.5L, Albumin 2.9L 08/16/21 05:17: Glucometer 168H 08/16/21 10:56: Glucometer 230H 08/16/21 15:35: Glucometer 219H Microbiology 08/14/21 Blood Culture - Preliminary, Resulted No growth Assessment/Plan Assessment/Plan Assess & Plan/Chief Complaint A 66-year-old female with cellulitis of the right lower extremity, 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
[2021-08-16] MEDS: VANCOMYCIN 1500 MG/NS 500 ML IVPB IV SCH ×2 (17:08)
[2021-08-16 20:53] VITALS: BP 114/69
[2021-08-16] MEDS: AMITRIPTYLINE 25 MG (ELAVIL) TAB PO SCH (21:01)
[2021-08-17] VITALS (8 sets, daily range): BP systolic 111–131; BP diastolic 56–72
--- NOTE | 2021-08-17 05:20 | Progress Note - Hospitalist ---
Subjective HPI/CC On Admission Date Seen by Provider: August 17, 2021 Time Seen by Provider: 09:00 Chief complaint: Right leg cellulitis History of present illness: This is a 66-year-old white female of [facility] who presented to the ER with complaints of right leg pain found to have severe cellulitis in need of IV antibiotics Dr. THOMPSON has been consulted in case abscess forms. Patient is maintained on anticoagulation. Patient reports that she has had this issue before but it is worse every time it occurs. Her BMI of 53 causes lymphedema and subsequent high risk for cellulitis. Home medications were reviewed and restarted. Subjective/Events-last exam Pt very sedentary Refuses therapy Gets around at home with a wheelchair and walker Antibiotics continue Lymphedema is a risk for recurrent cellulitis Review of Systems General: Fatigue, Malaise Neurological: Weakness Focused Exam Lactate Level Time of Focused Exam: 16:05 Objective Exam Vital Signs Vital Signs Date Time Temp Pulse Resp B/P (MAP) Pulse Ox O2 Delivery O2 Flow Rate FiO2 08/18/21 03:31 36.6 82 20 121/59 (79) 95 Nasal Cannula 2.00 08/17/21 09:52 32 Capillary Refill : Less Than 3 Seconds General Appearance: No Apparent Distress, WD/WN, Chronically ill, Obese Respiratory: Lungs Clear, Normal Breath Sounds Cardiovascular: Regular Rate, Rhythm Neurologic/Psychiatric: Alert, Oriented x3, Depressed Affect Results/Procedures Lab Laboratory Tests 08/17/21 05:47 Patient resulted labs reviewed. Assessment/Plan Assessment and Plan Assess & Plan/Chief Complaint Assessment: Right leg cellulitis Diabetes BMI 53 Hypertension Hyperlipidemia CVA history Plan: IV antibiotics Dr. THOMPSON consult Supportive care 08/16/2021: Supportive care IV antibiotics PT and OT 08/17/2021: Supportive care Therapy Clinical Quality Measures DVT/VTE Risk/Contraindication: Contraindications-Mechi: Other *list below* Other: cellulitis ALTHEA NEWMAN DO August 17, 2021 05:19
[2021-08-17 05:57] LABS: BASOPHILS # (AUTO) 0.1 10^3/uL (0.0-0.1); BASOPHILS % (AUTO) 1 % (0-10); EOSINOPHILS # (AUTO) 0.2 10^3/uL (0.0-0.3); EOSINOPHILS % (AUTO) 1 % (0-10); HEMATOCRIT 37 % (35-52); HEMOGLOBIN 12.3 g/dL (11.5-16.0); LYMPHOCYTES # (AUTO) 1.3 10^3/uL (1.0-4.0); LYMPHOCYTES % (AUTO) 9 % (12-44); MEAN CORPUSCULAR HEMOGLOBIN 35 pg (25-34); MEAN CORPUSCULAR HGB CONC 33 g/dL (32-36); MEAN CORPUSCULAR VOLUME 104 fL (80-99); MEAN PLATELET VOLUME 9.4 fL (9.0-12.2); MONOCYTES # (AUTO) 1.2 10^3/uL (0.0-1.0); MONOCYTES % (AUTO) 9 % (0-12); NEUTROPHILS # (AUTO) 10.3 10^3/uL (1.8-7.8); NEUTROPHILS % (AUTO) 75 % (42-75); PLATELET COUNT 102 10^3/uL (130-400); WHITE BLOOD COUNT 13.6 10^3/uL (4.3-11.0)
[2021-08-17 06:05] LABS: ALBUMIN 2.9 GM/DL (3.2-4.5); POTASSIUM 3.9 MMOL/L (3.6-5.0)
[2021-08-17 06:06] LABS: CALCIUM 7.8 MG/DL (8.5-10.1)
[2021-08-17 06:07] LABS: TOTAL PROTEIN 5.5 GM/DL (6.4-8.2)
[2021-08-17 06:09] LABS: BILIRUBIN,TOTAL 0.6 MG/DL (0.1-1.0)
[2021-08-17 06:11] LABS: CREATININE SERUM 1.02 MG/DL (0.60-1.30)
[2021-08-17] MEDS: inSUlin ASPART (NovoLOG) 1 UNIT/0.01 ML (CHARGE PER UNIT) SC SCH ×4 (06:12→20:19)
[2021-08-17] MEDS: PIPERACILLIN SODIUM/TAZOBACTAM 4.5 GM in NS (IVPB) 100 ML IV SCH ×3 (06:26→21:42)
[2021-08-17] MEDS: FLUoxetine HCL 20 MG (PROzac) CAP PO SCH ×2 (08:22→20:26)
[2021-08-17] MEDS: LOSARTAN 50 MG (COZAAR) TAB PO SCH (08:22)
[2021-08-17] MEDS: metFORMIN 500 MG (GLUCOPHAGE) TAB PO SCH ×2 (08:22→16:59)
[2021-08-17] MEDS: ENOXAPARIN 60 MG/0.6 ML (LOVENOX) SYR SC SCH ×2 (08:22→20:26)
[2021-08-17] MEDS: ASPIRIN E.C. 81 MG (ECOTRIN) TAB PO SCH (08:22)
[2021-08-17] MEDS: DOCUSATE SODIUM 100 MG (COLACE) CAP PO SCH ×2 (08:22→20:26)
--- NOTE | 2021-08-17 11:46 | Physical Therapy Daily Note ---
PT Daily Note-Current Subjective Patient in bed upon entry and consented to treat. Patient appeared more motivated today and was willing to get out of bed. Pt reports that she used commode just prior. Pain Numeric Pain Scale: 8 Location: Right Location Body Site: Calf Appearance Patient was left in bed with call light, tray, and all needs met. Nursing notif ied to assist putting purewick back in place. Mental Status Patient Orientation: Person, Place, Situation Attachments: Oxygen purewick Transfers SCALE: Activities may be completed with or without assistive devices. 4-Mcfbnakscj-nioogqo completes the activity by him/herself with no assistance f rom a helper. 5-Set-up or Clean-up Assistance-helper sets up or cleans up; patient completes activity. [place] assists only prior to or following the activity. 4-Supervision or Touching Assistance-helper provides verbal cues and/or touching/steadying and/or contact guard assistance as patient completes activity. Assistance may be provided throughout the activity or intermittently. 3-Partial/Moderate Assistance-helper does LESS THAN HALF the effort. [place] lifts, holds or supports trunk or limbs, but provides less than half the effort. 2-Substantial/Maximal Assistance-helper does MORE THAN HALF the effort. [place] lifts or holds trunk or limbs and provides more than half the effort. 1-Kxcitgity-bxlojg does ALL the effort. Patient does none of the effort to complete the activity. Or, the assistance of 2 or more helpers is required for the patient to complete the activity. If activity was not attempted, code reason: 7-Patient Refused. 9-Not Applicable-not attempted and the patient did not perform the activity before the current illness, exacerbation or injury. 10-Not Attempted due to Environmental Limitations-(lack of equipment, weather restraints, etc.). 88-Not Attempted due to Medical Conditions or Safety Concerns. Sit to Lying (QC): 1 Lying to Sitting/Side of Bed(Q: 1 Gait Training Does the Patient Walk?: No and Walking Goal IS indicated Exercises Supine Ex: Ankle pumps (20), Glut sets, Heel Slides, Straight leg raise Supine Reps: 10 Treatments LE strengthening and ROM. Transfers. Assessment Current Status: Poor Progress Standing was deferred today, as patient unsuccessfully attempted to stand with max assist x2. Patient needs 2 person assist to transfer lying<->sitting. Patient lacks significant ROM in both LE (R>L). She only has a few degrees of ROM in R knee and Hip. PT Penitentiary Goals Penitentiary Goals PT Penitentiary Goals Time Frame: August 23, 2021 Roll Left & Right (QC): 6 Sit to Lying (QC): 6 Lying-Sitting on Side/Bed(QC): 6 Sit to Stand (QC): 6 Chair/Bpb-iw-Wbkoi Xfer(QC): 6 Toilet Transfer (QC): 6 Car Transfer (QC): 6 Walk 10 feet (QC): 4 Walk 50ft with 2 Turns (QC): 4 PT Plan Problem List Problem List: Activity Tolerance, Functional Strength, Safety, Balance, Gait, Transfer, Bed Mobility, ROM Treatment/Plan Treatment Plan: Continue Plan of Care Treatment Plan: Bed Mobility, Education, Functional Activity Ezra, Functional Strength, Group Therapy, Gait, Safety, Therapeutic Exercise, Transfers Treatment Duration: August 23, 2021 Frequency: 6 times per week Estimated Hrs Per Day: .25 hour per day Patient and/or Family Agrees t: Yes Safety Risks/Education Patient Education: Transfer Techniques, Correct Positioning, Safety Issues Teaching Recipient: Patient Teaching Methods: Discussion Response to Teaching: Verbalize Understanding Time/GCodes Time In: 1116 Time Out: 1132 Total Billed Treatment Time: 16 Total Billed Treatment 1 visit FA 16min MARCO FRANCO PT August 17, 2021 11:46
--- NOTE | 2021-08-17 12:04 | Occ Therapy Progress Note ---
Therapy Progress Note OT tx attempted, upon OT arrival pt indicates she has already completed therapy today. OT educated pt on purpose/benefit of OT vs PT, encouraging pt to participate in OT tx. Pt continued to declined tx at this time, stating she would like to rest. OT will attempt tx again at next available time. 1, refusal [id number] DAVID ODELL OT August 17, 2021 12:04
[2021-08-17] MEDS: VANCOMYCIN 1500 MG/NS 500 ML IVPB IV SCH ×2 (12:12)
[2021-08-17] MEDS ORDERED: TROUGH ORDER-PHARMACY XX ONE (15:00)
--- NOTE | 2021-08-17 16:07 | Progress Note ---
Subjective Date Seen by a Provider: August 17, 2021 Time Seen by a Provider: 13:00 Subjective/Events-last exam weak with minimal ambulation otherwise doing well. no fever/chills. Focused Exam Lactate Level 08/14/21 16:30: Lactic Acid Level 5.53*H Time of Focused Exam: 16:05 Objective Exam Vital Signs Date Time Temp Pulse Resp B/P (MAP) Pulse Ox O2 Delivery O2 Flow Rate FiO2 08/17/21 11:19 36.2 82 18 124/56 (78) 94 Nasal Cannula 2.00 08/17/21 09:52 36.6 83 96 32 08/17/21 08:53 Nasal Cannula 2.00 08/17/21 08:22 Nasal Cannula 2.00 08/17/21 08:18 96 Nasal Cannula 3.00 08/17/21 07:31 36.6 96 18 121/62 (81) 96 Nasal Cannula 3.00 08/17/21 04:59 36.6 89 18 111/65 (80) 93 Nasal Cannula 3.00 08/17/21 00:00 36.2 82 20 118/72 (87) 95 Nasal Cannula 3.00 08/16/21 20:56 Nasal Cannula 3.00 08/16/21 20:53 36.0 88 20 114/69 (84) 95 Nasal Cannula 2.00 08/16/21 16:07 36.5 82 20 120/55 (76) 100 Nasal Cannula 2.00 I & O 08/17/21 07:00 Intake Total 1125 ml Output Total 1150 ml Balance -25 ml Capillary Refill : Less Than 3 Seconds General Appearance: No Apparent Distress HEENT: PERRL/EOMI Neck: Full Range of Motion Respiratory: Chest Non Tender, Decreased Breath Sounds Cardiovascular: Regular Rate, Rhythm Gastrointestinal: non tender, soft Extremity: Inflammation, Pedal Edema Neurologic/Psychiatric: Alert, Oriented x3 Skin: Normal Color Lymphatic: No Adenopathy Results Lab Laboratory Tests 08/16/21 20:24: Glucometer 192H 08/17/21 05:47: White Blood Count 13.6H, Red Blood Count 3.56L, Hemoglobin 12.3, Hematocrit 37, Mean Corpuscular Volume 104H, Mean Corpuscular Hemoglobin 35H, Mean Corpuscular Hemoglobin Concent 33, Red Cell Distribution Width 13.4, Platelet Count 102L, Mean Platelet Volume 9.4, Immature Granulocyte % (Auto) 4, Neutrophils (%) (Auto) 75, Lymphocytes (%) (Auto) 9L, Monocytes (%) (Auto) 9, Eosinophils (%) (Auto) 1, Basophils (%) (Auto) 1, Neutrophils # (Auto) 10.3H, Lymphocytes # (Auto) 1.3, Monocytes # (Auto) 1.2H, Eosinophils # (Auto) 0.2, Basophils # (Auto) 0.1, Immature Granulocyte # (Auto) 0.6H, Sodium Level 138, Potassium Level 3.9, Chloride Level 107, Carbon Dioxide Level 19L, Anion Gap 12, Blood Urea Nitrogen 24H, Creatinine 1.02, Estimat Glomerular Filtration Rate 61, BUN/Creatinine Ratio 24, Glucose Level 150H, Calcium Level 7.8L, Corrected Calcium 8.7, Total Bilirubin 0.6, Aspartate Amino Transf (AST/SGOT) 16, Alanine Aminotransferase (ALT/SGPT) 23, Alkaline Phosphatase 79, Total Protein 5.5L, Albumin 2.9L, Vancomycin Level Trough 15.2 08/17/21 11:15: Glucometer 233H 08/17/21 15:39: Glucometer 199H Microbiology 08/14/21 Blood Culture - Preliminary, Resulted No growth Assessment/Plan Assessment/Plan Assess & Plan/Chief Complaint chronic venous insufficiency with overlying cellulitis. iv abx. compression and elevation. PT/OT Clinical Quality Measures DVT/VTE Risk/Contraindication: Contraindications-Mechi: Other *list below* Other: cellulitis VIKI THOMPSON MD August 17, 2021 16:07
[2021-08-17] MEDS: RT-ALBUTEROL/IPRATROPIUM 3 ML (DUONEB) VIAL INH SCH (20:21)
[2021-08-17] MEDS: AMITRIPTYLINE 25 MG (ELAVIL) TAB PO SCH (20:26)
[2021-08-18 03:31] VITALS: BP 121/59
[2021-08-18 05:21] LABS: BASOPHILS # (AUTO) 0.1 10^3/uL (0.0-0.1); BASOPHILS % (AUTO) 1 % (0-10); EOSINOPHILS # (AUTO) 0.3 10^3/uL (0.0-0.3); EOSINOPHILS % (AUTO) 2 % (0-10); HEMATOCRIT 36 % (35-52); HEMOGLOBIN 12.2 g/dL (11.5-16.0); LYMPHOCYTES # (AUTO) 1.3 10^3/uL (1.0-4.0); LYMPHOCYTES % (AUTO) 11 % (12-44); MEAN CORPUSCULAR HEMOGLOBIN 35 pg (25-34); MEAN CORPUSCULAR HGB CONC 34 g/dL (32-36); MEAN CORPUSCULAR VOLUME 103 fL (80-99); MEAN PLATELET VOLUME 9.2 fL (9.0-12.2); MONOCYTES # (AUTO) 0.9 10^3/uL (0.0-1.0); MONOCYTES % (AUTO) 8 % (0-12); NEUTROPHILS # (AUTO) 8.9 10^3/uL (1.8-7.8); NEUTROPHILS % (AUTO) 76 % (42-75); PLATELET COUNT 117 10^3/uL (130-400); WHITE BLOOD COUNT 11.7 10^3/uL (4.3-11.0)
[2021-08-18 05:24] LABS: ALBUMIN 2.9 GM/DL (3.2-4.5)
[2021-08-18 05:25] LABS: POTASSIUM 4.1 MMOL/L (3.6-5.0)
[2021-08-18 05:26] LABS: CALCIUM 8.3 MG/DL (8.5-10.1)
[2021-08-18 05:27] LABS: TOTAL PROTEIN 5.6 GM/DL (6.4-8.2)
[2021-08-18 05:29] LABS: BILIRUBIN,TOTAL 0.6 MG/DL (0.1-1.0)
[2021-08-18 05:30] LABS: CREATININE SERUM 0.94 MG/DL (0.60-1.30)
[2021-08-18] MEDS: inSUlin ASPART (NovoLOG) 1 UNIT/0.01 ML (CHARGE PER UNIT) SC SCH ×4 (05:32→21:06)
--- NOTE | 2021-08-18 05:46 | Progress Note - Hospitalist ---
Subjective HPI/CC On Admission Date Seen by Provider: August 18, 2021 Time Seen by Provider: 09:30 Chief complaint: Right leg cellulitis History of present illness: This is a 66-year-old white female of [facility] who presented to the ER with complaints of right leg pain found to have severe cellulitis in need of IV antibiotics Dr. THOMPSON has been consulted in case abscess forms. Patient is maintained on anticoagulation. Patient reports that she has had this issue before but it is worse every time it occurs. Her BMI of 53 causes lymphedema and subsequent high risk for cellulitis. Home medications were reviewed and restarted. Subjective/Events-last exam Pt is doing about the same No concerns at this point Evacuated bowels today IV antibiotics tolerated Discharge for tomorrow Review of Systems Musculoskeletal: leg pain Focused Exam Time of Focused Exam: 16:05 Objective Exam Vital Signs Vital Signs Date Time Temp Pulse Resp B/P (MAP) Pulse Ox O2 Delivery O2 Flow Rate FiO2 08/19/21 03:57 37.1 81 18 123/58 (79) 92 Nasal Cannula 2.00 08/17/21 09:52 32 Capillary Refill : Less Than 3 Seconds General Appearance: No Apparent Distress, WD/WN, Chronically ill, Obese Respiratory: Lungs Clear, Normal Breath Sounds Cardiovascular: Regular Rate, Rhythm, No Edema Neurologic/Psychiatric: Alert, Oriented x3 Results/Procedures Lab Laboratory Tests 08/18/21 05:05 Patient resulted labs reviewed. Assessment/Plan Assessment and Plan Assess & Plan/Chief Complaint Assessment: Right leg cellulitis Diabetes BMI 53 Hypertension Hyperlipidemia CVA history Plan: IV antibiotics Dr. THOMPSON consult Supportive care 08/16/2021: Supportive care IV antibiotics PT and OT 08/17/2021: Supportive care Therapy 08/18/2021: Much improved status Discharge plan tomorrow Clinical Quality Measures DVT/VTE Risk/Contraindication: Contraindications-Mechi: Other *list below* Other: cellulitis ALTHEA NEWMAN DO August 18, 2021 05:46
[2021-08-18] MEDS: PIPERACILLIN SODIUM/TAZOBACTAM 4.5 GM in NS (IVPB) 100 ML IV SCH ×3 (06:04→21:11)
[2021-08-18] MEDS: RT-ALBUTEROL/IPRATROPIUM 3 ML (DUONEB) VIAL INH SCH ×2 (07:22→20:21)
[2021-08-18] MEDS: metFORMIN 500 MG (GLUCOPHAGE) TAB PO SCH ×2 (07:58→17:16)
[2021-08-18] MEDS: LOSARTAN 50 MG (COZAAR) TAB PO SCH (07:58)
[2021-08-18] MEDS: ASPIRIN E.C. 81 MG (ECOTRIN) TAB PO SCH (07:58)
[2021-08-18] MEDS: FLUoxetine HCL 20 MG (PROzac) CAP PO SCH ×2 (07:59→21:08)
[2021-08-18 08:00] VITALS: BP 133/62
[2021-08-18] MEDS: ENOXAPARIN 60 MG/0.6 ML (LOVENOX) SYR SC SCH ×2 (08:00→21:06)
[2021-08-18] MEDS: DOCUSATE SODIUM 100 MG (COLACE) CAP PO SCH ×2 (08:19→21:00)
[2021-08-18] MEDS: GABAPENTIN 600 MG (NEURONTIN) TAB PO PRN ×2 (09:06→16:23)
[2021-08-18] MEDS: VANCOMYCIN 1500 MG/NS 500 ML IVPB IV SCH ×2 (11:26)
[2021-08-18 11:35] VITALS: BP 129/61
--- NOTE | 2021-08-18 12:04 | Physical Therapy Daily Note ---
PT Daily Note-Current Subjective Pt laying Supine in bed upon arrival. Pt declines tx at first but after encouragement Pain Location: Right Comment: Reported pain w/movement of R LE Mental Status Patient Orientation: Person, Place, Situation Attachments: Other-See Comments (Negin) Transfers SCALE: Activities may be completed with or without assistive devices. 1-Rsfmglyter-cyijbjh completes the activity by him/herself with no assistance f rom a helper. 5-Set-up or Clean-up Assistance-helper sets up or cleans up; patient completes activity. [place] assists only prior to or following the activity. 4-Supervision or Touching Assistance-helper provides verbal cues and/or touching/steadying and/or contact guard assistance as patient completes activity. Assistance may be provided throughout the activity or intermittently. 3-Partial/Moderate Assistance-helper does LESS THAN HALF the effort. [place] lifts, holds or supports trunk or limbs, but provides less than half the effort. 2-Substantial/Maximal Assistance-helper does MORE THAN HALF the effort. [place] lifts or holds trunk or limbs and provides more than half the effort. 7-Vhotcnnna-ekqblj does ALL the effort. Patient does none of the effort to complete the activity. Or, the assistance of 2 or more helpers is required for the patient to complete the activity. If activity was not attempted, code reason: 7-Patient Refused. 9-Not Applicable-not attempted and the patient did not perform the activity before the current illness, exacerbation or injury. 10-Not Attempted due to Environmental Limitations-(lack of equipment, weather restraints, etc.). 88-Not Attempted due to Medical Conditions or Safety Concerns. Roll Left & Right (QC): 2 Sit to Lying (QC): 2 Lying to Sitting/Side of Bed(Q: 2 Sit to Stand (QC): 3 Chair/Ubp-pr-Lfazh Xfer(QC): 3 Toilet Transfer (QC): 3 Weight Bearing Full Weight Bearing Full Weight Bearing Treatments Pt requires assist x2 for supine <--> EOB. Sitting independent on EOB. Dependent with donning/doffing socks. With bed height elevated, pt able to go sit to stand with min A. Min A to transfer from EOB to BSC using FWW. Pt required assistance to manipulate clothing and cleanse self after BM. Pt transferred to EOB using FWW with min A. After pt in supine, pt used headboard with foot of bed elevated was able to pull self with assist x2 up in bed. After session, pt lying in bed with call light/phone in reach. All needs met in room. Assessment Current Status: Fair Progress Cries out w/movement of R LE but moves well. PT Long-Term Goals Long-Term Goals PT German Tutor Goals Time Frame: August 23, 2021 Roll Left & Right (QC): 6 Sit to Lying (QC): 6 Lying-Sitting on Side/Bed(QC): 6 Sit to Stand (QC): 6 Chair/Wms-nj-Tfntq Xfer(QC): 6 Toilet Transfer (QC): 6 Car Transfer (QC): 6 Walk 10 feet (QC): 4 Walk 50ft with 2 Turns (QC): 4 PT Plan Problem List Problem List: Activity Tolerance, Functional Strength, Gait, Transfer Treatment/Plan Treatment Plan: Continue Plan of Care Treatment Plan: Bed Mobility, Education, Functional Activity Ezra, Functional Strength, Group Therapy, Gait, Safety, Therapeutic Exercise, Transfers Treatment Duration: August 23, 2021 Frequency: 6 times per week Estimated Hrs Per Day: .25 hour per day Patient and/or Family Agrees t: Yes Safety Risks/Education Patient Education: Transfer Techniques, Correct Positioning, Safety Issues Teaching Recipient: Patient Teaching Methods: Discussion Response to Teaching: Verbalize Understanding Time/GCodes Time In: 1100 Time Out: 1123 Total Billed Treatment Time: 23 Total Billed Treatment 1, FA x2 (23m) GAVIN BURCIAGA PTA August 18, 2021 12:04
--- NOTE | 2021-08-18 13:15 | Occupational Ther Daily Note ---
OT Current Status-Daily Note Subjective Pt alert, lying in bed. Pt agrees to therapy. Pt c/o pain with movement of R LE. Mental Status/Objective Patient Orientation: Person, Place, Time, Situation Attachments: IV, Oxygen ADL-Treatment Pt requires assist x2 for supine <--> EOB. Sitting independent on EOB. Dependent with donning/doffing socks. With bed height elevated, pt able to go sit to stand with min A. Min A to transfer from EOB to [facility] using FWW. Pt required assistance to manipulate clothing and cleanse self after BM. Pt transferred to EOB using FWW with min A. After pt in supine, pt used headboard with foot of bed elevated was able to pull self with assist x2 up in bed. After session, pt lying in bed with call light/phone in reach. All needs met in room. Therapy Code Descriptions/Definitions Functional [place] Measure: 0=Not Assessed/NA 4=Minimal Assistance 1=Total Assistance 5=Supervision or Setup 2=Maximal Assistance 6=Modified [place] 3=Moderate Assistance 7=Complete IndependenceSCALE: Activities may be completed with or without assistive devices. 9-Wiazvyltaz-adqvgwa completes the activity by him/herself with no assistance from a helper. 5-Set-up or Clean-up Assistance-helper sets up or cleans up; patient completes activity. [place] assists only prior to or following the activity. 4-Supervision or Touching Assistance-helper provides verbal cues and/or touching/steadying and/or contact guard assistance as patient completes activity. Assistance may be provided throughout the activity or intermittently. 3-Partial/Moderate Assistance-helper does LESS THAN HALF the effort. [place] lifts, holds or supports trunk or limbs, but provides less than half the effort. 2-Substantial/Maximal Assistance-helper does MORE THAN HALF the effort. [place] lifts or holds trunk or limbs and provides more than half the effort. 1-Wyuelbfrd-fwsmjq does ALL the effort. Patient does none of the effort to complete the activity. Or, the assistance of 2 or more helpers is required for the patient to complete the activity. If activity was not attempted, code reason: 7-Patient Refused. 9-Not Applicable-not attempted and the patient did not perform the activity before the current illness, exacerbation or injury. 10-Not Attempted due to Environmental Limitations-(lack of equipment, weather restraints, etc.). 88-Not Attempted due to Medical Conditions or Safety Concerns. Toileting Hygiene (QC): 1 (one person to assist to stand and one person to cleanse) OT Assisted Goals Wind Turbine Engineer Goals Time Frame: September 03, 2021 Eating (QC): 6 Oral Hygiene (QC): 5 Toileting Hygiene (QC): 4 Shower/Bathe Self (QC): 4 Upper Body Dressing (QC): 5 Lower Body Dressing (QC): 4 On/Off Footwear (QC): 3 Additional Goals: 1-Demonstrate ADL Tasks, 2-Verbalize Understanding, 3- ImproveStrength/Ezra 1=Demonstrate adherence to instructed precautions during ADL tasks. 2=Patient will verbalize/demonstrate understanding of assistive devices/modifications for ADL. 3=Patient will improve strength/tolerance for activity to enable patient to perform ADL's. OT Education/Plan Problem List/Assessment Assessment: Decreased Activ Tolerance, Impaired Bed Mobility, Impaired Self- Care Skills Discharge Recommendations Plan/Recommendations: Continue POC Treatment Plan/Plan of Care Patient would benefit from OT for education, treatment and training to promote independence in ADL's, mobility, safety and/or upper extremity function for ADL's. Plan of Care: ADL Retraining, Functional Mobility, UE Funct Exercise/Act Treatment Duration: September 03, 2021 Frequency: 3 times per week (3-5 times per wek) Rehab Potential: Poor Time/GCodes Start Time: 11:00 Stop Time: 11:23 Total Time Billed (hr/min): 23 Billed Treatment Time 1 visit-ADL 1 (13 min) FA 1 (10 min) JACI PARRA August 18, 2021 13:15
[2021-08-18 15:52] VITALS: BP 115/56
[2021-08-18 20:00] VITALS: BP 136/61
[2021-08-18] MEDS: MELATONIN 3 MG TABLET PO PRN (21:07)
[2021-08-18] MEDS: AMITRIPTYLINE 25 MG (ELAVIL) TAB PO SCH (21:08)
[2021-08-18 23:50] VITALS: BP 113/53
[2021-08-19 03:57] VITALS: BP 123/58
[2021-08-19] MEDS: inSUlin ASPART (NovoLOG) 1 UNIT/0.01 ML (CHARGE PER UNIT) SC SCH ×4 (05:12→21:00)
[2021-08-19] MEDS: PIPERACILLIN SODIUM/TAZOBACTAM 4.5 GM in NS (IVPB) 100 ML IV SCH ×3 (05:21→21:54)
[2021-08-19 06:10] LABS: BASOPHILS # (AUTO) 0.1 10^3/uL (0.0-0.1); BASOPHILS % (AUTO) 1 % (0-10); EOSINOPHILS # (AUTO) 0.3 10^3/uL (0.0-0.3); EOSINOPHILS % (AUTO) 3 % (0-10); HEMATOCRIT 36 % (35-52); HEMOGLOBIN 11.9 g/dL (11.5-16.0); LYMPHOCYTES # (AUTO) 1.6 10^3/uL (1.0-4.0); LYMPHOCYTES % (AUTO) 17 % (12-44); MEAN CORPUSCULAR HEMOGLOBIN 34 pg (25-34); MEAN CORPUSCULAR HGB CONC 33 g/dL (32-36); MEAN CORPUSCULAR VOLUME 103 fL (80-99); MEAN PLATELET VOLUME 9.6 fL (9.0-12.2); MONOCYTES # (AUTO) 0.5 10^3/uL (0.0-1.0); MONOCYTES % (AUTO) 6 % (0-12); NEUTROPHILS # (AUTO) 6.6 10^3/uL (1.8-7.8); NEUTROPHILS % (AUTO) 72 % (42-75); PLATELET COUNT 137 10^3/uL (130-400); WHITE BLOOD COUNT 9.1 10^3/uL (4.3-11.0)
[2021-08-19 06:24] LABS: ALBUMIN 2.7 GM/DL (3.2-4.5); POTASSIUM 4.5 MMOL/L (3.6-5.0)
[2021-08-19 06:25] LABS: CALCIUM 8.4 MG/DL (8.5-10.1)
[2021-08-19 06:26] LABS: TOTAL PROTEIN 5.5 GM/DL (6.4-8.2)
[2021-08-19 06:28] LABS: BILIRUBIN,TOTAL 0.4 MG/DL (0.1-1.0)
[2021-08-19 06:30] LABS: CREATININE SERUM 0.97 MG/DL (0.60-1.30)
[2021-08-19] MEDS: RT-ALBUTEROL/IPRATROPIUM 3 ML (DUONEB) VIAL INH SCH ×2 (07:54→21:27)
[2021-08-19 08:00] VITALS: BP 123/60
[2021-08-19] MEDS: ASPIRIN E.C. 81 MG (ECOTRIN) TAB PO SCH (08:52)
[2021-08-19] MEDS: metFORMIN 500 MG (GLUCOPHAGE) TAB PO SCH ×2 (08:52→17:19)
[2021-08-19] MEDS: ENOXAPARIN 60 MG/0.6 ML (LOVENOX) SYR SC SCH ×2 (08:52→21:03)
[2021-08-19] MEDS: FLUoxetine HCL 20 MG (PROzac) CAP PO SCH ×2 (08:53→21:03)
[2021-08-19] MEDS: DOCUSATE SODIUM 100 MG (COLACE) CAP PO SCH ×2 (08:53→21:00)
[2021-08-19] MEDS: LOSARTAN 50 MG (COZAAR) TAB PO SCH (08:53)
[2021-08-19] MEDS: GABAPENTIN 600 MG (NEURONTIN) TAB PO PRN ×2 (08:58→14:16)
--- NOTE | 2021-08-19 09:21 | Occupational Ther Daily Note ---
OT Current Status-Daily Note Subjective Pt alert, lying in bed. Pt agrees to therapy. C/o R LE pain with movement. Mental Status/Objective Patient Orientation: Person, Place, Time, Situation Attachments: IV, Oxygen (2L) ADL-Treatment Pt min A for supine <--> EOB. Sitting independent on EOB. Dependent with donning/doffing socks. With bed height elevated, pt able to go sit to stand with min A. CGA to transfer from EOB to [facility] using FWW. Pt required assistance to manipulate clothing and cleanse self after urination. CGA for pt to transfer using FWW from BSC to recliner. Therapy Code Descriptions/Definitions Functional [place] Measure: 0=Not Assessed/NA 4=Minimal Assistance 1=Total Assistance 5=Supervision or Setup 2=Maximal Assistance 6=Modified [place] 3=Moderate Assistance 7=Complete IndependenceSCALE: Activities may be completed with or without assistive devices. 6-Rxhglkvony-rgrpgwl completes the activity by him/herself with no assistance from a helper. 5-Set-up or Clean-up Assistance-helper sets up or cleans up; patient completes activity. [place] assists only prior to or following the activity. 4-Supervision or Touching Assistance-helper provides verbal cues and/or touching/steadying and/or contact guard assistance as patient completes activity. Assistance may be provided throughout the activity or intermittently. 3-Partial/Moderate Assistance-helper does LESS THAN HALF the effort. [place] lifts, holds or supports trunk or limbs, but provides less than half the effort. 2-Substantial/Maximal Assistance-helper does MORE THAN HALF the effort. [place] lifts or holds trunk or limbs and provides more than half the effort. 8-Knfbiiqnv-aqzdwp does ALL the effort. Patient does none of the effort to complete the activity. Or, the assistance of 2 or more helpers is required for the patient to complete the activity. If activity was not attempted, code reason: 7-Patient Refused. 9-Not Applicable-not attempted and the patient did not perform the activity before the current illness, exacerbation or injury. 10-Not Attempted due to Environmental Limitations-(lack of equipment, weather restraints, etc.). 88-Not Attempted due to Medical Conditions or Safety Concerns. Toileting Hygiene (QC): 1 (one person to stand and one person to cleanse and manipulate clothing.) Toilet Transfer (QC): 4 OT Purchase Order Checker Goals Shelter Goals Time Frame: September 03, 2021 Eating (QC): 6 Oral Hygiene (QC): 5 Toileting Hygiene (QC): 4 Shower/Bathe Self (QC): 4 Upper Body Dressing (QC): 5 Lower Body Dressing (QC): 4 On/Off Footwear (QC): 3 Additional Goals: 1-Demonstrate ADL Tasks, 2-Verbalize Understanding, 3- ImproveStrength/Ezra 1=Demonstrate adherence to instructed precautions during ADL tasks. 2=Patient will verbalize/demonstrate understanding of assistive devices/modifications for ADL. 3=Patient will improve strength/tolerance for activity to enable patient to perform ADL's. OT Education/Plan Problem List/Assessment Assessment: Decreased Activ Tolerance, Decreased Safety Aware, Impaired Self- Care Skills Discharge Recommendations Plan/Recommendations: Continue POC Treatment Plan/Plan of Care Patient would benefit from OT for education, treatment and training to promote independence in ADL's, mobility, safety and/or upper extremity function for ADL's. Plan of Care: ADL Retraining, Functional Mobility, UE Funct Exercise/Act Treatment Duration: September 03, 2021 Frequency: 3 times per week (3-5 times per wek) Rehab Potential: Poor Time/GCodes Start Time: 08:34 Stop Time: 08:49 Total Time Billed (hr/min): 15 Billed Treatment Time 1 visit-ADL 1 (15 min) JACI PARRA August 19, 2021 09:21
--- NOTE | 2021-08-19 10:15 | Physical Therapy Daily Note ---
PT Daily Note-Current Subjective Patient agrees to PT. Mental Status Patient Orientation: Normal For Age Attachments: Oxygen, IV Transfers SCALE: Activities may be completed with or without assistive devices. 4-Rjivxtolnv-qscoihj completes the activity by him/herself with no assistance from a helper. 5-Set-up or Clean-up Assistance-helper sets up or cleans up; patient completes activity. [place] assists only prior to or following the activity. 4-Supervision or Touching Assistance-helper provides verbal cues and/or touching/steadying and/or contact guard assistance as patient completes activity. Assistance may be provided throughout the activity or intermittently. 3-Partial/Moderate Assistance-helper does LESS THAN HALF the effort. [place] lifts, holds or supports trunk or limbs, but provides less than half the effort. 2-Substantial/Maximal Assistance-helper does MORE THAN HALF the effort. [place] lifts or holds trunk or limbs and provides more than half the effort. 0-Rfiolmepy-ubbfxq does ALL the effort. Patient does none of the effort to complete the activity. Or, the assistance of 2 or more helpers is required for the patient to complete the activity. If activity was not attempted, code reason: 7-Patient Refused. 9-Not Applicable-not attempted and the patient did not perform the activity before the current illness, exacerbation or injury. 10-Not Attempted due to Environmental Limitations-(lack of equipment, weather restraints, etc.). 88-Not Attempted due to Medical Conditions or Safety Concerns. Lying to Sitting/Side of Bed(Q: 3 Sit to Stand (QC): 3 Chair/Zru-ve-Afymm Xfer(QC): 3 Weight Bearing Full Weight Bearing Full Weight Bearing Gait Training Distance: 5' x 2 Gait Persons Needed: 1 (CGA) Gait Assistive Device: FWW Assessment Patient required assistance with toileting [facility] Patient then ambulated to recliner. Patient up in recliner with needs met. PT Asset Management Coordinator Goals Asset Management Coordinator Goals PT Asset Management Coordinator Goals Time Frame: August 23, 2021 Roll Left & Right (QC): 6 Sit to Lying (QC): 6 Lying-Sitting on Side/Bed(QC): 6 Sit to Stand (QC): 6 Chair/Hgc-fr-Okmzx Xfer(QC): 6 Toilet Transfer (QC): 6 Car Transfer (QC): 6 Walk 10 feet (QC): 4 Walk 50ft with 2 Turns (QC): 4 PT Plan Treatment/Plan Treatment Plan: Continue Plan of Care Treatment Plan: Bed Mobility, Education, Functional Activity Ezra, Functional Strength, Group Therapy, Gait, Safety, Therapeutic Exercise, Transfers Treatment Duration: August 23, 2021 Frequency: 6 times per week Estimated Hrs Per Day: .25 hour per day Patient and/or Family Agrees t: Yes Time/GCodes Time In: 838 Time Out: 848 Total Billed Treatment Time: 10 Total Billed Treatment 1 visit FA 10 min RENATA RYAN PT August 19, 2021 10:15
--- NOTE | 2021-08-19 10:45 | Progress Note - Hospitalist ---
Subjective HPI/CC On Admission Date Seen by Provider: August 19, 2021 Time Seen by Provider: 11:30 Chief complaint: Right leg cellulitis History of present illness: This is a 66-year-old white female of [facility] who presented to the ER with complaints of right leg pain found to have severe cellulitis in need of IV antibiotics Dr. THOMPSON has been consulted in case abscess forms. Patient is maintained on anticoagulation. Patient reports that she has had this issue before but it is worse every time it occurs. Her BMI of 53 causes lymphedema and subsequent high risk for cellulitis. Home medications were reviewed and restarted. Subjective/Events-last exam Pt was set for discharge today but her right leg is worse Initiated Nystatin and Triamcinolone cream BID Dr. Thompson will also be consulted Lovenox of 60 mg subQ Q 12 hours has been maintained for DVT prophylaxis Review of Systems Musculoskeletal: leg pain Focused Exam Time of Focused Exam: 16:05 Objective Exam Vital Signs Vital Signs Date Time Temp Pulse Resp B/P (MAP) Pulse Ox O2 Delivery O2 Flow Rate FiO2 08/19/21 23:44 37.4 84 20 121/58 (79) 96 Nasal Cannula 2.00 08/17/21 09:52 32 Capillary Refill : Less Than 3 Seconds General Appearance: No Apparent Distress, WD/WN, Chronically ill, Obese Respiratory: Lungs Clear, Normal Breath Sounds Cardiovascular: Regular Rate, Rhythm Extremity: Calf Tenderness (Left), Pedal Edema, Swelling Neurologic/Psychiatric: Alert, Oriented x3 Results/Procedures Lab Patient resulted labs reviewed. Assessment/Plan Assessment and Plan Assess & Plan/Chief Complaint Assessment: Right leg cellulitis Diabetes BMI 53 Hypertension Hyperlipidemia CVA history Plan: IV antibiotics Dr. THOMPSON consult Supportive care 08/16/2021: Supportive care IV antibiotics PT and OT 08/17/2021: Supportive care Therapy 08/18/2021: Much improved status Discharge plan tomorrow 08/19/2021: Hold discharge Dr. THOMPSON to evaluate leg Continue antibiotics Nystatin and triamcinolone for venous stasis dermatitis Clinical Quality Measures DVT/VTE Risk/Contraindication: Contraindications-Mechi: Other *list below* Other: cellulitis ALTHEA NEWMAN DO August 19, 2021 10:45
[2021-08-19] MEDS: NYSTATIN CREAM (MYCOSTATIN) 30 GM TUBE TP SCH ×2 (14:16→21:04)
--- NOTE | 2021-08-19 14:53 | Progress Note ---
Subjective Date Seen by a Provider: August 19, 2021 Time Seen by a Provider: 14:25 Subjective/Events-last exam Patient seen with Dr. Mackey. Patient reports right lower extremity still painful. Denies any fever/chills. Tolerating diet. Focused Exam Time of Focused Exam: 16:05 Objective Exam Vital Signs Date Time Temp Pulse Resp B/P (MAP) Pulse Ox O2 Delivery O2 Flow Rate FiO2 08/19/21 09:00 Nasal Cannula 2.00 08/19/21 08:00 36.5 77 18 123/60 (81) 95 Nasal Cannula 2.00 08/19/21 07:57 95 Nasal Cannula 2.00 08/19/21 03:57 37.1 81 18 123/58 (79) 92 Nasal Cannula 2.00 08/18/21 23:50 37.1 81 20 113/53 (73) 93 Nasal Cannula 2.00 08/18/21 20:21 96 Nasal Cannula 2.00 08/18/21 20:00 36.3 77 20 136/61 (86) 95 Nasal Cannula 2.00 08/18/21 19:45 Nasal Cannula 2.00 08/18/21 15:52 36.0 73 22 115/56 (75) 97 Nasal Cannula 2.00 l I & O 08/19/21 07:00 Intake Total 2615 ml Output Total 1550 ml Balance 1065 ml Capillary Refill : Less Than 3 Seconds General Appearance: No Apparent Distress, WD/WN, Obese Neck: Normal Inspection, Supple Respiratory: No Accessory Muscle Use, No Respiratory Distress Gastrointestinal: normal bowel sounds, non tender, soft Extremity: Other (Right foot edema. Distal half of right lower extremity has multiple petechial hemorrhage of the capillaries of the skin as well as areas of eccyhomosis.) Neurologic/Psychiatric: Alert, Oriented x3 Skin: Normal Color, Warm/Dry Results Lab Laboratory Tests 08/18/21 15:28: Glucometer 185H 08/18/21 20:11: Glucometer 204H 08/19/21 05:08: Glucometer 153H 08/19/21 05:40: White Blood Count 9.1, Red Blood Count 3.48L, Hemoglobin 11.9, Hematocrit 36, Mean Corpuscular Volume 103H, Mean Corpuscular Hemoglobin 34, Mean Corpuscular Hemoglobin Concent 33, Red Cell Distribution Width 13.0, Platelet Count 137, Mean Platelet Volume 9.6, Immature Granulocyte % (Auto) 2, Neutrophils (%) (Auto) 72, Lymphocytes (%) (Auto) 17, Monocytes (%) (Auto) 6, Eosinophils (%) (Auto) 3, Basophils (%) (Auto) 1, Neutrophils # (Auto) 6.6, Lymphocytes # (Auto) 1.6, Monocytes # (Auto) 0.5, Eosinophils # (Auto) 0.3, Basophils # (Auto) 0.1, Immature Granulocyte # (Auto) 0.2H, Sodium Level 137, Potassium Level 4.5, Chloride Level 105, Carbon Dioxide Level 21, Anion Gap 11, Blood Urea Nitrogen 21H, Creatinine 0.97, Estimat Glomerular Filtration Rate 64, BUN/Creatinine Ratio 22, Glucose Level 152H, Calcium Level 8.4L, Corrected Calcium 9.4, Total B ilirubin 0.4, Aspartate Amino Transf (AST/SGOT) 13, Alanine Aminotransferase (ALT/SGPT) 17, Alkaline Phosphatase 78, Total Protein 5.5L, Albumin 2.7L 08/19/21 11:05: Glucometer 229H Microbiology 08/14/21 Blood Culture - Preliminary, Resulted No growth Assessment/Plan Assessment/Plan Assess & Plan/Chief Complaint A 66-year-old female with cellulitis of the right lower extremity, history of MRSA VSS WBC 9.1 Continue IV abx Pain meds PRN continue compression with shine wrap and elevation of right lower extremity Clinical Quality Measures DVT/VTE Risk/Contraindication: Contraindications-Mechi: Other *list below* Other: cellulitis HEATHER LARRY [id number] ADMINISTRATOR August 19, 2021 14:52
[2021-08-19 16:00] VITALS: BP 120/58
[2021-08-19] MEDS: TRIAMCINOLONE 0.1% CR (KENALOG) 80 GM TUBE TP SCH (21:00)
[2021-08-19] MEDS ORDERED: guaiFENesin/DM (ROBITUSSIN DM) 10 ML UDC PO PRN (21:00)
[2021-08-19] MEDS ORDERED: guaiFENesin/CODEINE (ROBITUSSIN AC) 10ML UDC PO PRN (21:00)
[2021-08-19] MEDS: AMITRIPTYLINE 25 MG (ELAVIL) TAB PO SCH (21:03)
[2021-08-19] MEDS: MELATONIN 3 MG TABLET PO PRN (21:03)
[2021-08-19 23:44] VITALS: BP 121/58
[2021-08-20] MEDS: PIPERACILLIN SODIUM/TAZOBACTAM 4.5 GM in NS (IVPB) 100 ML IV SCH ×2 (06:00→14:17)
[2021-08-20] MEDS: inSUlin ASPART (NovoLOG) 1 UNIT/0.01 ML (CHARGE PER UNIT) SC SCH ×3 (06:00→15:27)
[2021-08-20 06:13] LABS: BASOPHILS % (AUTO) 1 % (0-10); EOSINOPHILS # (AUTO) 0.3 10^3/uL (0.0-0.3); EOSINOPHILS % (AUTO) 3 % (0-10); HEMATOCRIT 36 % (35-52); LYMPHOCYTES # (AUTO) 1.5 10^3/uL (1.0-4.0); LYMPHOCYTES % (AUTO) 19 % (12-44); MEAN CORPUSCULAR HEMOGLOBIN 35 pg (25-34); MEAN CORPUSCULAR HGB CONC 33 g/dL (32-36); MEAN CORPUSCULAR VOLUME 104 fL (80-99); MEAN PLATELET VOLUME 9.5 fL (9.0-12.2); MONOCYTES # (AUTO) 0.4 10^3/uL (0.0-1.0); MONOCYTES % (AUTO) 5 % (0-12); NEUTROPHILS # (AUTO) 5.8 10^3/uL (1.8-7.8); NEUTROPHILS % (AUTO) 71 % (42-75); PLATELET COUNT 158 10^3/uL (130-400); WHITE BLOOD COUNT 8.1 10^3/uL (4.3-11.0)
[2021-08-20 06:29] LABS: ALBUMIN 2.8 GM/DL (3.2-4.5); POTASSIUM 4.7 MMOL/L (3.6-5.0)
[2021-08-20 06:30] LABS: CALCIUM 8.6 MG/DL (8.5-10.1)
[2021-08-20 06:31] LABS: TOTAL PROTEIN 5.8 GM/DL (6.4-8.2)
[2021-08-20 06:33] LABS: BILIRUBIN,TOTAL 0.3 MG/DL (0.1-1.0)
[2021-08-20 06:35] LABS: CREATININE SERUM 0.97 MG/DL (0.60-1.30)
--- NOTE | 2021-08-20 07:02 | Progress Note - Hospitalist ---
Subjective HPI/CC On Admission Date Seen by Provider: August 20, 2021 Time Seen by Provider: 10:30 Chief complaint: Right leg cellulitis History of present illness: This is a 66-year-old white female of [facility] who presented to the ER with complaints of right leg pain found to have severe cellulitis in need of IV antibiotics Dr. THOMPSON has been consulted in case abscess forms. Patient is maintained on anticoagulation. Patient reports that she has had this issue before but it is worse every time it occurs. Her BMI of 53 causes lymphedema and subsequent high risk for cellulitis. Home medications were reviewed and restarted. Focused Exam Time of Focused Exam: 16:05 Objective Exam Vital Signs Vital Signs Date Time Temp Pulse Resp B/P (MAP) Pulse Ox O2 Delivery O2 Flow Rate FiO2 08/20/21 08:13 93 Nasal Cannula 2.00 08/20/21 07:59 36.4 68 18 130/60 (83) 08/17/21 09:52 32 Capillary Refill : Less Than 3 Seconds Results/Procedures Lab Laboratory Tests 08/20/21 06:06 Patient resulted labs reviewed. Assessment/Plan Assessment and Plan Assess & Plan/Chief Complaint Assessment: Right leg cellulitis Diabetes BMI 53 Hypertension Hyperlipidemia CVA history Plan: IV antibiotics Dr. THOMPSON consult Supportive care 08/16/2021: Supportive care IV antibiotics PT and OT 08/17/2021: Supportive care Therapy 08/18/2021: Much improved status Discharge plan tomorrow 08/19/2021: Hold discharge Dr. THOMPSON to evaluate leg Continue antibiotics Nystatin and triamcinolone for venous stasis dermatitis Clinical Quality Measures DVT/VTE Risk/Contraindication: Contraindications-Mechi: Other *list below* Other: cellulitis ALTHEA NEWMAN DO August 20, 2021 07:02
[2021-08-20 07:59] VITALS: BP 130/60
[2021-08-20] MEDS: RT-ALBUTEROL/IPRATROPIUM 3 ML (DUONEB) VIAL INH SCH (08:13)
[2021-08-20] MEDS: ASPIRIN E.C. 81 MG (ECOTRIN) TAB PO SCH (08:54)
[2021-08-20] MEDS: DOCUSATE SODIUM 100 MG (COLACE) CAP PO SCH ×2 (08:54→08:56)
[2021-08-20] MEDS: LOSARTAN 50 MG (COZAAR) TAB PO SCH (08:54)
[2021-08-20] MEDS: FLUoxetine HCL 20 MG (PROzac) CAP PO SCH (08:54)
[2021-08-20] MEDS: ENOXAPARIN 60 MG/0.6 ML (LOVENOX) SYR SC SCH (08:54)
[2021-08-20] MEDS: metFORMIN 500 MG (GLUCOPHAGE) TAB PO SCH ×2 (08:55→17:52)
[2021-08-20] MEDS: NYSTATIN CREAM (MYCOSTATIN) 30 GM TUBE TP SCH ×2 (08:57→14:18)
--- NOTE | 2021-08-20 09:52 | Physical Therapy Daily Note ---
PT Daily Note-Current Subjective Patient agrees to PT. Pain Numeric Pain Scale: 10-Worst Possible Pain Location: Right Location Body Site: Calf Pain Description: Pressure, Chronic, Sharp Comment: pain meds issued Mental Status Patient Orientation: Normal For Age Attachments: Oxygen, IV Transfers SCALE: Activities may be completed with or without assistive devices. 2-Skkmpqfffq-nhlbhcs completes the activity by him/herself with no assistance from a helper. 5-Set-up or Clean-up Assistance-helper sets up or cleans up; patient completes activity. [place] assists only prior to or following the activity. 4-Supervision or Touching Assistance-helper provides verbal cues and/or touching/steadying and/or contact guard assistance as patient completes activity. Assistance may be provided throughout the activity or intermittently. 3-Partial/Moderate Assistance-helper does LESS THAN HALF the effort. [place] lifts, holds or supports trunk or limbs, but provides less than half the effort. 2-Substantial/Maximal Assistance-helper does MORE THAN HALF the effort. [place] lifts or holds trunk or limbs and provides more than half the effort. 6-Loehucegw-khcmgc does ALL the effort. Patient does none of the effort to complete the activity. Or, the assistance of 2 or more helpers is required for the patient to complete the activity. If activity was not attempted, code reason: 7-Patient Refused. 9-Not Applicable-not attempted and the patient did not perform the activity before the current illness, exacerbation or injury. 10-Not Attempted due to Environmental Limitations-(lack of equipment, weather restraints, etc.). 88-Not Attempted due to Medical Conditions or Safety Concerns. Lying to Sitting/Side of Bed(Q: 4 Sit to Stand (QC): 4 Chair/Imz-fm-Sowoe Xfer(QC): 4 SBA with all mobility Weight Bearing Full Weight Bearing Full Weight Bearing Gait Training Distance: 10' Walk 10 feet (QC): 4 Gait Assistive Device: FWW WBOS due to morbid obesity Assessment Patient requires time to complete all functional tasks and is up in recliner with needs met. PT Prison Goals Prison Goals PT Sheeter Machine Operator Goals Time Frame: August 23, 2021 Roll Left & Right (QC): 6 Sit to Lying (QC): 6 Lying-Sitting on Side/Bed(QC): 6 Sit to Stand (QC): 6 Chair/Ioy-la-Mhfes Xfer(QC): 6 Toilet Transfer (QC): 6 Car Transfer (QC): 6 Walk 10 feet (QC): 4 Walk 50ft with 2 Turns (QC): 4 PT Plan Treatment/Plan Treatment Plan: Continue Plan of Care Treatment Plan: Bed Mobility, Education, Functional Activity Ezra, Functional Strength, Group Therapy, Gait, Safety, Therapeutic Exercise, Transfers Treatment Duration: August 23, 2021 Frequency: 6 times per week Estimated Hrs Per Day: .25 hour per day Patient and/or Family Agrees t: Yes Time/GCodes Time In: 903 Time Out: 914 Total Billed Treatment Time: 11 Total Billed Treatment 1 visit FA 14 min RENATA RYAN PT August 20, 2021 09:52
--- NOTE | 2021-08-20 10:19 | Occupational Ther Daily Note ---
OT Current Status-Daily Note Subjective Pt up in recliner, eyes closed. Pt initially declined OT services, but with moderate encouragement, pt slightly agreeable. As pt drank coffee, pt opened eyes more and appeared more alert. Mental Status/Objective Patient Orientation: Person, Place, Situation Attachments: IV ADL-Treatment Therapy Code Descriptions/Definitions Functional [place] Measure: 0=Not Assessed/NA 4=Minimal Assistance 1=Total Assistance 5=Supervision or Setup 2=Maximal Assistance 6=Modified [place] 3=Moderate Assistance 7=Complete IndependenceSCALE: Activities may be completed with or without assistive devices. 8-Fizvvfotqa-uomruly completes the activity by him/herself with no assistance from a helper. 5-Set-up or Clean-up Assistance-helper sets up or cleans up; patient completes activity. [place] assists only prior to or following the activity. 4-Supervision or Touching Assistance-helper provides verbal cues and/or touching/steadying and/or contact guard assistance as patient completes activity. Assistance may be provided throughout the activity or intermittently. 3-Partial/Moderate Assistance-helper does LESS THAN HALF the effort. [place] lifts, holds or supports trunk or limbs, but provides less than half the effort. 2-Substantial/Maximal Assistance-helper does MORE THAN HALF the effort. [place] lifts or holds trunk or limbs and provides more than half the effort. 6-Sbytiftrg-izbcgx does ALL the effort. Patient does none of the effort to complete the activity. Or, the assistance of 2 or more helpers is required for the patient to complete the activity. If activity was not attempted, code reason: 7-Patient Refused. 9-Not Applicable-not attempted and the patient did not perform the activity before the current illness, exacerbation or injury. 10-Not Attempted due to Environmental Limitations-(lack of equipment, weather restraints, etc.). 88-Not Attempted due to Medical Conditions or Safety Concerns. Eating (QC): 6 (6) Other Treatment Pt up in recliner, agreeable to OT Tx with encouragement. Pt declined ADLs and UE exercises, but her breakfast tray arrived, she was agreeable to eating breakfast. Pt requests OT to set up her tray, but with encouragement, she agreed to completing task herself. Pt able to drink coffee independently, open butter container, spread butter on pancakes, and use utensils to cut food and bring to mouth. Pt declined further OT tx at this time. Post tx, pt up in recliner, call light in reach and all needs met. Education OT Patient Education: Correct positioning, Modified ADL techniques, Progress toward Goal/Update tx plan, Purpose of tx/functional activities Teaching Recipient: Patient Teaching Methods: Discussion Response to Teaching: Reinforcement Needed OT Long-Term Goals Long-Term Goals Time Frame: September 03, 2021 Eating (QC): 6 Oral Hygiene (QC): 5 Toileting Hygiene (QC): 4 Shower/Bathe Self (QC): 4 Upper Body Dressing (QC): 5 Lower Body Dressing (QC): 4 On/Off Footwear (QC): 3 Additional Goals: 1-Demonstrate ADL Tasks, 2-Verbalize Understanding, 3- ImproveStrength/[place] 1=Demonstrate adherence to instructed precautions during ADL tasks. 2=Patient will verbalize/demonstrate understanding of assistive devices/modifications for ADL. 3=Patient will improve strength/tolerance for activity to enable patient to perform ADL's. OT Education/Plan Problem List/Assessment Assessment: Decreased Activ Tolerance, Decreased UE Strength, Impaired Funct Balance, Impaired I ADL's, Impaired Self-Care Skills Discharge Recommendations Plan/Recommendations: Continue POC Treatment Plan/Plan of Care Patient would benefit from OT for education, treatment and training to promote independence in ADL's, mobility, safety and/or upper extremity function for ADL's. Plan of Care: ADL Retraining, Functional Mobility, UE Funct Exercise/Act Treatment Duration: September 03, 2021 Frequency: 3 times per week (3-5 times per wek) Rehab Potential: Poor Time/GCodes Start Time: 10:05 Stop Time: 10:15 Total Time Billed (hr/min): 10 Billed Treatment Time 1, ADL DAVID ODELL OT August 20, 2021 10:19
--- NOTE | 2021-08-20 10:21 | Progress Note ---
Subjective Date Seen by a Provider: August 20, 2021 Time Seen by a Provider: 10:00 Subjective/Events-last exam doing ok. always complains of pain. does not ambulate well. redness/cellulitis improving. wbc normalized. Focused Exam Time of Focused Exam: 16:05 Objective Exam Vital Signs Date Time Temp Pulse Resp B/P (MAP) Pulse Ox O2 Delivery O2 Flow Rate FiO2 08/20/21 08:13 93 Nasal Cannula 2.00 08/20/21 08:00 Nasal Cannula 2.00 08/20/21 07:59 36.4 68 18 130/60 (83) 97 Nasal Cannula 2.00 08/19/21 23:44 37.4 84 20 121/58 (79) 96 Nasal Cannula 2.00 08/19/21 21:27 94 Nasal Cannula 2.00 08/19/21 20:50 Nasal Cannula 2.00 08/19/21 16:00 36.2 74 20 120/58 (78) 96 Nasal Cannula 2.00 I & O 08/20/21 07:00 Intake Total 2350 ml Output Total 2250 ml Balance 100 ml Capillary Refill : Less Than 3 Seconds General Appearance: No Apparent Distress HEENT: PERRL/EOMI Neck: Full Range of Motion Respiratory: Decreased Breath Sounds Cardiovascular: Regular Rate, Rhythm Gastrointestinal: normal bowel sounds, non tender, soft Extremity: Swelling, Other (decreased redness, erythema, edema) Skin: Normal Color Lymphatic: No Adenopathy Results Lab Laboratory Tests 08/19/21 11:05: Glucometer 229H 08/19/21 15:44: Glucometer 175H 08/19/21 20:55: Glucometer 152H 08/20/21 05:54: Glucometer 154H 08/20/21 06:06: White Blood Count 8.1, Red Blood Count 3.45L, Hemoglobin 12.0, Hematocrit 36, Mean Corpuscular Volume 104H, Mean Corpuscular Hemoglobin 35H, Mean Corpuscular Hemoglobin Concent 33, Red Cell Distribution Width 12.9, Platelet Count 158, Mean Platelet Volume 9.5, Immature Granulocyte % (Auto) 1, Neutrophils (%) (Auto) 71, Lymphocytes (%) (Auto) 19, Monocytes (%) (Auto) 5, Eosinophils (%) (Auto) 3, Basophils (%) (Auto) 1, Neutrophils # (Auto) 5.8, Lymphocytes # (Auto) 1.5, Monocytes # (Auto) 0.4, Eosinophils # (Auto) 0.3, Basophils # (Auto) 0.0, Immature Granulocyte # (Auto) 0.1, Sodium Level 137, Potassium Level 4.7, Chloride Level 103, Carbon Dioxide Level 23, Anion Gap 11, Blood Urea Nitrogen 23H, Creatinine 0.97, Estimat Glomerular Filtration Rate 64, BUN/Creatinine Ratio 24, Glucose Level 148H, Calcium Level 8.6, Corrected Calcium 9.6, Total Bilirubin 0.3, Aspartate Amino Transf (AST/SGOT) 15, Alanine Aminotransferase (ALT/SGPT) 18, Alkaline Phosphatase 73, Total Protein 5.8L, Albumin 2.8L Microbiology 08/14/21 Blood Culture - Preliminary, Resulted No growth Assessment/Plan Assessment/Plan Assess & Plan/Chief Complaint chronic venous insufficiency with overlying cellulitis. iv abx. compression and elevation. PT/OT Clinical Quality Measures DVT/VTE Risk/Contraindication: Contraindications-Mechi: Other *list below* Other: cellulitis VIKI THOMPSON MD August 20, 2021 10:21
[2021-08-20] MEDS ORDERED: AMOX1TAB12 PO (11:22)
[2021-08-20] MEDS ORDERED: NYST15CR TP (11:22)
[2021-08-20] MEDS ORDERED: TR1C15 TP (11:22)
[2021-08-20] MEDS ORDERED: OXC5T PO (11:22)
[2021-08-20] MEDS ORDERED: RIVA10TA PO (11:24)
--- NOTE | 2021-08-20 11:26 | Discharge Summary ---
Discharge Summary Hospital Course Was the Problem List Reviewed?: Yes Problems/Dx: (1) Debility Status: Acute (2) Cellulitis of left lower extremity Status: Acute (3) HTN (hypertension) Status: Chronic (4) Non-insulin dependent diabetes mellitus Status: Chronic (5) DVT prophylaxis Status: Acute (6) Dyspnea Status: Acute Hospital Course Date of Admission: Aug 14, 2021 at 17:23 Admission Diagnosis : Family Physician/Provider: Andrew Celis MD Date of Discharge: 08/20/21 Discharge Diagnosis: Right leg cellulitis, super morbid obesity, immobile state requiring long-term DVT prophylaxis, sepsis Hospital Course: Pt had a lengthy hospital course for 7 days after she was admitted for right lower extremity cellulitis. She was placed on broad spectrum antibiotics. General surgery was consulted, no abscess formation. She was maintained on Lovenox for DVT prophylaxis. Due to the super morbid obesity and chronic sedentary status her prognosis remains poor. She will complete Augmentin. I did place her on Xarelto 10 mg low dose for DVT prophylaxis due to such an immobile state. Labs and Pending Lab Test: Laboratory Tests 08/19/21 15:44: Glucometer 175H 08/19/21 20:55: Glucometer 152H 08/20/21 05:54: Glucometer 154H 08/20/21 06:06: White Blood Count 8.1, Red Blood Count 3.45L, Hemoglobin 12.0, Hematocrit 36, Mean Corpuscular Volume 104H, Mean Corpuscular Hemoglobin 35H, Mean Corpuscular Hemoglobin Concent 33, Red Cell Distribution Width 12.9, Platelet Count 158, Me an Platelet Volume 9.5, Immature Granulocyte % (Auto) 1, Neutrophils (%) (Auto) 71, Lymphocytes (%) (Auto) 19, Monocytes (%) (Auto) 5, Eosinophils (%) (Auto) 3, Basophils (%) (Auto) 1, Neutrophils # (Auto) 5.8, Lymphocytes # (Auto) 1.5, Monocytes # (Auto) 0.4, Eosinophils # (Auto) 0.3, Basophils # (Auto) 0.0, Immature Granulocyte # (Auto) 0.1, Sodium Level 137, Potassium Level 4.7, Chloride Level 103, Carbon Dioxide Level 23, Anion Gap 11, Blood Urea Nitrogen 23H, Creatinine 0.97, Estimat Glomerular Filtration Rate 64, BUN/Creatinine Ratio 24, Glucose Level 148H, Calcium Level 8.6, Corrected Calcium 9.6, Total Bilirubin 0.3, Aspartate Amino Transf (AST/SGOT) 15, Alanine Aminotransferase (ALT/SGPT) 18, Alkaline Phosphatase 73, Total Protein 5.8L, Albumin 2.8L Microbiology 08/14/21 Blood Culture - Preliminary, Resulted No growth Home Meds Active Xarelto (Rivaroxaban) 10 Mg Tablet 10 Mg PO DAILY Amox Tr-K Clv 875-125 mg Tab (Amoxicillin/Potassium Clav) 875 Mg-125 Mg Tablet 1 Each PO BID Triamcinolone Acetonide 0.1% Cream (Triamcinolone Acet) 0.1 % Cr 0 Gm TP BID Nystatin 100,000 Unit/Gram Cream..g. 0 Gm TP BID apply to legs Oxyir Tablet (Oxycodone HCl) 5 Mg Tab 7.5 Mg PO Q4HR PRN Reported Flovent Hfa 110 mcg (Fluticasone Propionate) 1 Ea Aero 2-4 Puff IH BID PRN Amitriptyline HCl 50 Mg Tablet 50 Mg PO HS LAST FILLED 06-28-2021 #30/ DAY SUPPLY Aspirin EC (Aspirin) 81 Mg Tablet.dr 81 Mg PO DAILY Fluoxetine HCl 40 Mg Capsule 40 Mg PO BID Ibuprofen 800 Mg Tablet 800 Mg PO TID PRN Gabapentin 600 Mg Tablet 600 Mg PO TID PRN Metformin HCl 1,000 Mg Tablet 1,000 Mg PO BID WITH MEALS Losartan Potassium 50 Mg Tablet 50 Mg PO DAILY Oxybutynin Chloride 5 Mg Tablet 5 Mg PO TID PRN Assessment/Pt Instructions PCP in 1 week Discharge Planning: <30 minutes discharge planning Discharge Instructions Discharge Diet: ADA Diet Discharge Physical Examination Vital Signs Vital Signs Date Time Temp Pulse Resp B/P (MAP) Pulse Ox O2 Delivery O2 Flow Rate FiO2 08/20/21 08:13 93 Nasal Cannula 2.00 08/20/21 07:59 36.4 68 18 130/60 (83) 08/17/21 09:52 32 General Appearance: No Apparent Distress, WD/WN, Chronically ill Skin: Other (Much improved cellulitis right leg) Allergies: Uncoded Allergies: IV CONTRAST (Adverse Reaction, Mild, HIVES, 09/17/18) Discharge Summary Date of Admission Aug 14, 2021 at 17:23 Date of Discharge Discharge Date: August 20, 2021 Admission Diagnosis Assessment: Right leg cellulitis Diabetes BMI 53 Hypertension Hyperlipidemia CVA history Plan: IV antibiotics Dr. THOMPSON consult Supportive care Discharge Diagnosis Assessment: Right leg cellulitis Diabetes BMI 53 Hypertension Hyperlipidemia CVA history Plan: IV antibiotics Dr. THOMPSON consult Supportive care 08/16/2021: Supportive care IV antibiotics PT and OT 08/17/2021: Supportive care Therapy 08/18/2021: Much improved status Discharge plan tomorrow 08/19/2021: Hold discharge Dr. THOMPSON to evaluate leg Continue antibiotics Nystatin and triamcinolone for venous stasis dermatitis Clinical Quality Measures DVT/VTE Risk/Contraindication: Contraindications-Mechi: Other *list below* Other: cellulitis ALTHEA NEWMAN DO August 20, 2021 11:26
--- NOTE | 2021-08-20 11:32 | D/C HH Face to Face Order ---
D/C HH Face to Face Orders Reconcile Patient Problems Problems Reviewed?: Yes Instructions for Patient HH Patient Instructions/FollowUp: PCP 1 week Physician to follow Patient: [facility] Discharge Diet for Home: No Restrictions Patient Problems: Debility Right leg cellulitis Patient Data-Allergies,Ht & Wt Patient Allergies: Uncoded Allergies: IV CONTRAST (Adverse Reaction, Mild, HIVES, 09/17/18) Height (Feet): 5 Height (Inches): 6.00 Weight (Pounds): 290 Weight (Ounces): 1.0 Home Health Need/Face to Face Date of Face to Face: August 20, 2021 Clinical Findings: Generalized weakness and fatigue, Instability, Muscle weakness, Pain with ambulation, Unsteady gait I have seen Pt [id number]: Yes Discharged To: Home Diagnosis/Conditions: Debility Patient is Homebound due to: Jannet fall risk due to instabilty, Muscle weakness Homebound Status Due to the above stated illness, injury or surgical procedure (medical condition or diagnosis) and associated clinical findings, the patient is homebound because of his/her inability to leave home except with aid of a supp ortive device and/or person AND leaving the home requires a considerable and taxing effort or is medically contraindicated. Pt req the following assistanc: Walker, Wheelchair Home Health Nursing Orders Home Health Services Order: Nursing Services, Box Attacher-Evaluate & Treat, Physical Therapy-Evaluate & Treat Home Health Infusion Therapy Line Start Date: Aug 14, 2021 Certify Stmt I certify that this patient is under my care and that I, a nurse practitioner or a physician; a physical therapist assistant working with me, had a face to face encounter that - meets the physician face to face encounter requirements with this patient as dated. ALTHEA NEWMAN DO August 20, 2021 11:32
[2021-08-20] MEDS: TRIAMCINOLONE 0.1% CR (KENALOG) 80 GM TUBE TP SCH (11:58)
[2021-08-20 16:07] VITALS: BP 121/55
[2021-08-20 19:47] VITALS: BP 121/55
== END 2021-08-20 19:45 | disposition home health service (06) | DRG 872 ==
LOC: EDUNIT# 15:08 → ER FS 15:09 → 4TH 17:23
PROVIDERS: ADMIT Internal Medicine; ATTEND Internal Medicine
DX: A41.9 Sepsis, unspecified organism (principal); L03.115 Cellulitis of right lower limb; Z68.43 Body mass index [BMI] 50.0-59.9, adult; E86.0 Dehydration; J44.9 Chronic obstructive pulmonary disease, unspecified; I10 Essential (primary) hypertension; E11.40 Type 2 diabetes mellitus with diabetic neuropathy, unspecified; Z79.4 Long term (current) use of insulin; Z28.310 Unvaccinated for COVID-19; R53.81 Other malaise; R06.00 Dyspnea, unspecified; E66.01 Morbid (severe) obesity due to excess calories; Z86.73 Personal history of transient ischemic attack (TIA), and cerebral infarction without residual deficits; E78.5 Hyperlipidemia, unspecified; M19.90 Unspecified osteoarthritis, unspecified site; G89.29 Other chronic pain; M54.9 Dorsalgia, unspecified; F32.A Depression, unspecified
CPT/HCPCS: 36415; 80053; 80202; 82947; 83605; 85007; 85025; 85027; 86141; 87040; 94640; 94760; 96374; 96375

== ENCOUNTER 2021-08-24 19:02 | Emergency (ER) | payer MEDICAID ==
[~2021-08-24 19:02] MED LIST changes: +AMOX1TAB12 PO; +NYST15CR TP; +OXC5T PO; +RIVA10TA PO; +TR1C15 TP
--- NOTE | 2021-08-24 19:08 | ED Integumentary General ---
General Stated Complaint: LEG SWELLING History of Present Illness Date Seen by Provider: August 24, 2021 Time Seen by Provider: 19:08 Initial Comments 66-year-old female presents with right leg pain and erythema and warmth. Patient was recently discharged from [facility] on 08/20/2021 after a 7-day stay in the ER due to right leg cellulitis. Patient was discharged on Augmentin. She had had significant improvement in her cellulitis while she was in the hospital on IV antibiotics. Patient has significant morbid obesity and poor ambulation status. Due to her poor ambulation status she was also started on Xarelto for DVT prophylaxis. Patient had negative blood cultures. She comes in today because the symptoms of gotten worse over the last couple days. She also complains of some mild nausea and some back and neck pain. She thinks her back and neck pain are related to her staying in a hospital bed. Patient does not have any reported injury or new activity. Allergies and Home Medications Allergies Uncoded Allergies: IV CONTRAST (Adverse Reaction, Mild, HIVES, 09/17/18) Patient Home Medication List Home Medication List Reviewed: Yes Amitriptyline HCl (Amitriptyline HCl) 50 Mg Tablet, 50 MG PO HS, (Reported) Entered as Reported by: DOYLE CARRILLO on 02/23/21 1035 Amoxicillin/Potassium Clav (Amox Tr-K Clv 875-125 mg Tab) 875 Mg-125 Mg Tablet, 1 EACH PO BID Prescribed by: ALTHEA NEWMAN on 08/20/21 1122 Aspirin (Aspirin EC) 81 Mg Tablet.dr, 81 MG PO DAILY, (Reported) Entered as Reported by: NERIS PRIETO on 10/26/20 0851 Fluoxetine HCl (Fluoxetine HCl) 40 Mg Capsule, 40 MG PO BID, (Reported) Entered as Reported by: NERIS PRIETO on 10/26/20 0851 Fluticasone Propionate (Flovent Hfa 110 mcg) 1 Ea Aero, 2-4 PUFF IH BID PRN for SHORTNESS OF BREATH, (Reported) Entered as Reported by: DOYLE CARRILLO on 06/30/21 1236 Gabapentin (Gabapentin) 600 Mg Tablet, 600 MG PO TID PRN for NERVE PAIN, (Reported) Entered as Reported by: MINESH CANALES on 09/17/18 1847 Ibuprofen (Ibuprofen) 800 Mg Tablet, 800 MG PO TID PRN for PAIN-MILD (1-4), (Reported) Entered as Reported by: STACIE BERNAL on 05/15/19 1015 Losartan Potassium (Losartan Potassium) 50 Mg Tablet, 50 MG PO DAILY, (Reported) Entered as Reported by: MINESH CANALES on 09/17/181846 Metformin HCl (Metformin HCl) 1,000 Mg Tablet, 1,000 MG PO BID WITH MEALS, (Reported) Entered as Reported by: MINESH CANALES on 09/17/181846 Nystatin (Nystatin) 100,000 Unit/Gram Cream..g., 0 GM TP BID Prescribed by: ALTHEA NEWMAN on 08/20/21 112 Oxybutynin Chloride (Oxybutynin Chloride) 5 Mg Tablet, 5 MG PO TID PRN for OVERACTIVE BLADDER, (Reported) Entered as Reported by: MINESH CANALES on 09/17/181846 Oxycodone Hcl (Oxyir Tablet) 5 Mg Tab, 7.5 MG PO Q4HR PRN for PAIN-SEE DOSE INSTRUCTIONS Prescribed by: ALTHEA NEWMAN on 08/20/21 112 Rivaroxaban (Xarelto) 10 Mg Tablet, 10 MG PO DAILY Prescribed by: ALTHEA NEWMAN on 08/20/21 112 Triamcinolone Acet (Triamcinolone Acetonide 0.1% Cream) 0.1 % Cr, 0 GM TP BID Prescribed by: ALTHEA NEWMAN on 08/20/21 112 Review of Systems Review of Systems Constitutional: No chills, No fever Respiratory: No cough Cardiovascular: no symptoms reported Gastrointestinal: no symptoms reported Genitourinary: no symptoms reported Musculoskeletal: see HPI Skin: no symptoms reported Psychiatric/Neurological: No Symptoms Reported Endocrine: No Symptoms Reported Hematologic/Lymphatic: No Symptoms Reported Past Aquhrvj-Bbniec-Uxdjeq Hx Immunizations Up To Date Tetanus Booster (TDap): Unknown First/Initial COVID19 Vaccinat: NOT VACCINATED Second COVID19 Vaccination Get: NOT VACCINATED Third COVID19 Vaccination Date: NOT VACCINATED Seasonal Allergies Seasonal Allergies: No Past Medical History Surgery/Hospitalization HX: MRSA APPY C Section Bladder Surgery Stroke with R side residual Cataracts Dilation Urethral structurre HTN Cheek Cellulitis Surgeries: Yes (cystoscopies) Appendectomy, Bladder Surgery, Section, Gallbladder, Tonsillectomy Respiratory: Yes COPD Cardiac: Yes High Cholesterol, Hypertension Neurological: Yes Neuropathy, Stroke Genitourinary: Yes (urethral strictures) UTI-Chronic Gastrointestinal: Yes Gall Bladder Disease Musculoskeletal: Yes Arthritis, Chronic Back Pain Endocrine: Yes Diabetes, Insulin dep HEENT: Yes (decreasing vision with age and due to DM) Hearing Impairment: Denies Cancer: No Psychosocial: No Depression Integumentary: Yes (L ORBITAL CELLULITIS, 2018 CHEEK CELLULITIS) Recent Skin Changes Blood Disorders: No Family Medical History Patient reports no known family medical history. Diabetes, Hypertension Physical Exam Vital Signs Vital Signs - First Documented 08/24/21 19:06 Temp 37.2 Pulse 76 Resp 20 B/P (MAP) 155/67 (96) Pulse Ox 94 O2 Delivery Room Air Capillary Refill : General Appearance: no apparent distress, obese (Morbid) Cardiovascular: normal peripheral pulses, regular rate, rhythm Respiratory: lungs clear, normal breath sounds Gastrointestinal: non tender, soft Extremities: normal capillary refill, swelling (Bilateral 3+ edema ) Neurologic/Psychiatric: alert, normal mood/affect, oriented x 3 Skin Problem Location: lower extremities (Bilateral venous stasis with some mild erythema and improving cellulitis right leg) Skin Problem Character: erythema, rash Progress/Results/Core Measures Results/Orders Lab Results Laboratory Tests Test 08/24/21 19:12 Range/Units White Blood Count 5.6 4.3-11.0 10^3/uL Red Blood Count 3.60 L 3.80-5.11 10^6/uL Hemoglobin 12.7 11.5-16.0 g/dL Hematocrit 36 35-52 % Mean Corpuscular Volume 100 H 80-99 fL Mean Corpuscular Hemoglobin 35 H 25-34 pg Mean Corpuscular Hemoglobin Concent 35 32-36 g/dL Red Cell Distribution Width 12.9 10.0-14.5 % Platelet Count 298 130-400 10^3/uL Mean Platelet Volume 9.0 9.0-12.2 fL Immature Granulocyte % (Auto) 0 % Neutrophils (%) (Auto) 62 42-75 % Lymphocytes (%) (Auto) 30 12-44 % Monocytes (%) (Auto) 7 0-12 % Eosinophils (%) (Auto) 1 0-10 % Basophils (%) (Auto) 1 0-10 % Neutrophils # (Auto) 3.5 1.8-7.8 10^3/uL Lymphocytes # (Auto) 1.7 1.0-4.0 10^3/uL Monocytes # (Auto) 0.4 0.0-1.0 10^3/uL Eosinophils # (Auto) 0.1 0.0-0.3 10^3/uL Basophils # (Auto) 0.0 0.0-0.1 10^3/uL Immature Granulocyte # (Auto) 0.0 0.0-0.1 10^3/uL Sodium Level 141 135-145 MMOL/L Potassium Level 3.9 3.6-5.0 MMOL/L Chloride Level 104 98-107 MMOL/L Carbon Dioxide Level 22 21-32 MMOL/L Anion Gap 15 H 5-14 MMOL/L Blood Urea Nitrogen 22 H 7-18 MG/DL Creatinine 0.91 0.60-1.30 MG/DL Estimat Glomerular Filtration Rate 70 BUN/Creatinine Ratio 24 Glucose Level 171 H 70-105 MG/DL Lactic Acid Level 1.50 0.50-2.00 MMOL/L Calcium Level 8.6 8.5-10.1 MG/DL Corrected Calcium 8.9 8.5-10.1 MG/DL Total Bilirubin 0.5 0.1-1.0 MG/DL Aspartate Amino Transf (AST/SGOT) 26 5-34 U/L Alanine Aminotransferase (ALT/SGPT) 16 0-55 U/L Alkaline Phosphatase 58 40-136 U/L C-Reactive Protein < 0.30 <0.50 MG/DL Total Protein 6.4 6.4-8.2 GM/DL Albumin 3.6 3.2-4.5 GM/DL Lipase 14 8-78 U/L My Orders Orders - ARDON,DAY L DO Cbc With Automated Diff (08/24/21 19:08) Comprehensive Metabolic Panel (08/24/21 19:08) Lipase (08/24/21 19:08) Ua Culture If Indicated (08/24/21 19:08) Blood Culture (08/24/21 19:08) Crp Fs (08/24/21 19:08) Lactic Acid Analyzer (08/24/21 19:08) Ondansetron Injection (Zofran Injectio (08/24/21 19:15) Ed Iv/Invasive Line Start (5/10/22 19:08) Ceftriaxone 1 Gm Pre-Mix (Rocephin 1 Gm (08/24/21 19:47) Ketorolac Injection (Toradol Injection) (08/24/21 19:47) Medications Given in ED Current Medications Medications Dose Ordered Sig/Suzi Route Start Time Stop Time Status Last Admin Dose Admin Ondansetron HCl 4 mg ONCE ONCE IVP 08/24/21 19:15 08/24/21 19:16 DC 08/24/21 19:17 4 MG Vital Signs/I&O 08/24/21 08/24/21 19:06 20:10 Temp 37.2 Pulse 76 71 Resp 20 20 B/P (MAP) 155/67 (96) 141/69 Pulse Ox 94 96 O2 Delivery Room Air Room Air 08/25/21 00:00 Intake Total 50 ml Balance 50 ml Progress Progress Note : Progress Note I reviewed patient's discharge summary where she still has some mild erythema on her leg. Patient's labs continue to improve. Patient should continue her treatment from hospital discharge and follow-up with her primary care provider. At this time patient does not warrant further admission. Patient has chronic bilateral lower extremity venous stasis and will likely always have some mild erythema to her legs. Patient will be discharged home Departure Impression Primary Impression: Venous stasis dermatitis of right lower extremity Additional Impression: Cellulitis of right lower limb Disposition: 01 HOME, SELF-CARE Condition: Stable Departure-Patient Inst. Referrals: KATIE HUDSON MD (PCP/Family) Primary Care Physician Patient Instructions: Cellulitis (Skin Infection), Adult (DC), Lymphedema (DC) Add. Discharge Instructions: Continue your current treatment from discharge from the hospital Follow-up with your primary care provider on Monday of this week for recheck of symptoms DAY ARDON DO August 24, 2021 19:08
[2021-08-24] MEDS ORDERED: ONDANSETRON 4 MG/2 ML (SDV) Z0FRAN IVP ONE (19:15)
[2021-08-24 19:24] LABS: BASOPHILS % (AUTO) 1 % (0-10); EOSINOPHILS # (AUTO) 0.1 10^3/uL (0.0-0.3); EOSINOPHILS % (AUTO) 1 % (0-10); HEMATOCRIT 36 % (35-52); HEMOGLOBIN 12.7 g/dL (11.5-16.0); LYMPHOCYTES # (AUTO) 1.7 10^3/uL (1.0-4.0); LYMPHOCYTES % (AUTO) 30 % (12-44); MEAN CORPUSCULAR HEMOGLOBIN 35 pg (25-34); MEAN CORPUSCULAR HGB CONC 35 g/dL (32-36); MEAN CORPUSCULAR VOLUME 100 fL (80-99); MONOCYTES # (AUTO) 0.4 10^3/uL (0.0-1.0); MONOCYTES % (AUTO) 7 % (0-12); NEUTROPHILS # (AUTO) 3.5 10^3/uL (1.8-7.8); NEUTROPHILS % (AUTO) 62 % (42-75); PLATELET COUNT 298 10^3/uL (130-400); WHITE BLOOD COUNT 5.6 10^3/uL (4.3-11.0)
[2021-08-24] MEDS ORDERED: KETOROLAC 30 MG/ML VIAL IVP STA (19:47)
[2021-08-24] MEDS ORDERED: cefTRIAXone 1 GM PRE-MIX 50 ML IV STA (19:47)
[2021-08-24 19:52] LABS: CARBON DIOXIDE 22 MMOL/L (21-32); CHLORIDE 104 MMOL/L (98-107); POTASSIUM 3.9 MMOL/L (3.6-5.0); SODIUM 141 MMOL/L (135-145)
[2021-08-24 19:53] LABS: ALANINE AMINOTRANSFERASE 16 U/L (0-55); ALBUMIN 3.6 GM/DL (3.2-4.5); ALKALINE PHOSPHATASE 58 U/L (40-136); BILIRUBIN,TOTAL 0.5 MG/DL (0.1-1.0); BUN/CREATININE RATIO 24; CALCIUM 8.6 MG/DL (8.5-10.1); CREATININE SERUM 0.91 MG/DL (0.60-1.30); GFR ESTIMATED 70; GLUCOSE 171 MG/DL (70-105); LIPASE 14 U/L (8-78); TOTAL PROTEIN 6.4 GM/DL (6.4-8.2)
[2021-08-24 20:10] VITALS: BP 141/69
== END 2021-08-24 20:22 | disposition home or self-care (01) ==
LOC: EDUNIT# 19:02 → ER FS 19:03
DX: I87.2 Venous insufficiency (chronic) (peripheral) (principal); L03.115 Cellulitis of right lower limb; E11.40 Type 2 diabetes mellitus with diabetic neuropathy, unspecified; E11.39 Type 2 diabetes mellitus with other diabetic ophthalmic complication; E66.01 Morbid (severe) obesity due to excess calories; Z79.4 Long term (current) use of insulin; Z28.310 Unvaccinated for COVID-19; Z86.718 Personal history of other venous thrombosis and embolism; Z79.01 Long term (current) use of anticoagulants
CPT/HCPCS: 36415; 80053; 83605; 83690; 85025; 86141; 87040

== ENCOUNTER 2021-11-24 08:37 | Inpatient (IN) | payer MEDICAID ==
[~2021-11-24] VITALS: Ht 167.7 cm; Wt 154.3 kg
[2021-11-24] VITALS (7 sets, daily range): BP systolic 86–113; BP diastolic 51–66
[2021-11-24] MEDS ORDERED: ONDANSETRON 4 MG/2 ML (SDV) Z0FRAN IVP ONE (09:00)
[2021-11-24] MEDS ORDERED: NS IV 1000 ML 1,000 ML IV SCH (09:00)
[2021-11-24] MEDS ORDERED: fentaNYL INJ 100 MCG/2 ML AMP IVP ONE (09:00)
[2021-11-24 09:17] LABS: HEMATOCRIT 38 % (35-52); HEMOGLOBIN 12.7 g/dL (11.5-16.0); MEAN CORPUSCULAR HEMOGLOBIN 35 pg (25-34); MEAN CORPUSCULAR HGB CONC 33 g/dL (32-36); MEAN CORPUSCULAR VOLUME 105 fL (80-99); MEAN PLATELET VOLUME 9.4 fL (9.0-12.2); PLATELET COUNT 118 10^3/uL (130-400); WHITE BLOOD COUNT 15.5 10^3/uL (4.3-11.0)
[2021-11-24 09:18] LABS: BASOPHILS # (AUTO) 0.1 10^3/uL (0.0-0.1); BASOPHILS % (AUTO) 1 % (0-10); EOSINOPHILS % (AUTO) 0 % (0-10); LYMPHOCYTES # (AUTO) 0.5 X 10^3 (1.0-4.0); LYMPHOCYTES % (AUTO) 3 % (12-44); MONOCYTES # (AUTO) 0.5 X 10^3 (0.0-1.0); MONOCYTES % (AUTO) 3 % (0-12); NEUTROPHILS # (AUTO) 14.1 X 10^3 (1.8-7.8); NEUTROPHILS % (AUTO) 91 % (42-75)
--- NOTE | 2021-11-24 09:22 | Diagnostic Imaging Report ---
INDICATION: Shortness of breath Portable chest 9:12 AM Heart and mediastinum are normal. Lungs are clear. There are no effusions or pneumothoraces. IMPRESSION: No acute abnormalities in the chest. Dictated by: Dictated on workstation # [id number]
[2021-11-24] MEDS ORDERED: PIPERACILLIN SODIUM/TAZOBACTAM 4.5 GM in NS (IVPB) 100 ML IV ONE (09:30)
--- NOTE | 2021-11-24 09:33 | ED General ---
General Chief Complaint: General Problems/Pain Stated Complaint: FALL Nursing Triage Note: Patient presents to the ED via EMS with c/o right hip pain. States she fell out of bed last night and was unable to get up. Reports she laid on the floor all night until her sons helped her up. Source of Information: Patient Exam Limitations: No Limitations History of Present Illness Date Seen by Provider: Nov 24, 2021 Time Seen by Provider: 09:00 Initial Comments Patient is a 66-year-old female presents with multiple medical complaints. Patient reports feeling dizzy, chills, sweats with urinary frequency and dysuria this morning. This was accompanied with lightheadedness and syncopal episode wh ile attempting to use the bathroom. Patient did fall backwards striking her head landing on her right hip. She reports mild posterior headache, denies neck pain or back pain. She reports right hip pain with inability to stand or weight. Timing/Duration: 4-6 Hours Severity: Mild Modifying Factors: improves with Other Associated Systoms: Other Allergies and Home Medications Allergies Uncoded Allergies: IV CONTRAST (Adverse Reaction, Mild, HIVES, 09/17/18) Patient Home Medication List Home Medication List Reviewed: Yes Amitriptyline HCl (Amitriptyline HCl) 50 Mg Tablet, 50 MG PO HS, (Reported) Entered as Reported by: DOYLE CARRILLO on 02/23/21 1035 Amoxicillin/Potassium Clav (Amox Tr-K Clv 875-125 mg Tab) 875 Mg-125 Mg Tablet, 1 EACH PO BID Prescribed by: ALTHEA NEWMAN on 08/20/21 1122 Aspirin (Aspirin EC) 81 Mg Tablet.dr, 81 MG PO DAILY, (Reported) Entered as Reported by: NERIS PRIETO on 10/26/20 0851 Fluoxetine HCl (Fluoxetine HCl) 40 Mg Capsule, 40 MG PO BID, (Reported) Entered as Reported by: NERIS PRIETO on 10/26/20 0851 Fluticasone Propionate (Flovent Hfa 110 mcg) 1 Ea Aero, 2-4 PUFF IH BID PRN for SHORTNESS OF BREATH, (Reported) Entered as Reported by: DOYLE CARRILLO on 06/30/21 1236 Gabapentin (Gabapentin) 600 Mg Tablet, 600 MG PO TID PRN for NERVE PAIN, (Reported) Entered as Reported by: MINESH CANALES on 6/3/19 1847 Ibuprofen (Ibuprofen) 800 Mg Tablet, 800 MG PO TID PRN for PAIN-MILD (1-4), (Reported) Entered as Reported by: STACIE BERNAL on 05/15/19 1015 Losartan Potassium (Losartan Potassium) 50 Mg Tablet, 50 MG PO DAILY, (Reported) Entered as Reported by: MINESH CANALES on 09/17/181846 Metformin HCl (Metformin HCl) 1,000 Mg Tablet, 1,000 MG PO BID WITH MEALS, (Reported) Entered as Reported by: MINESH CANALES on 09/17/181846 Nystatin (Nystatin) 100,000 Unit/Gram Cream..g., 0 GM TP BID Prescribed by: ALTHEA NEWMAN on 08/20/211121 Oxybutynin Chloride (Oxybutynin Chloride) 5 Mg Tablet, 5 MG PO TID PRN for OVERACTIVE BLADDER, (Reported) Entered as Reported by: MINESH CANALES on 09/17/181846 Oxycodone Hcl (Oxyir Tablet) 5 Mg Tab, 7.5 MG PO Q4HR PRN for PAIN-SEE DOSE INSTRUCTIONS Prescribed by: ALTHEA NEWMAN on 08/20/21 112 Rivaroxaban (Xarelto) 10 Mg Tablet, 10 MG PO DAILY Prescribed by: ALTHEA NEWMAN on 08/20/21 1124 Triamcinolone Acet (Triamcinolone Acetonide 0.1% Cream) 0.1 % Cr, 0 GM TP BID Prescribed by: ALTHEA NEWMAN on 08/20/211121 Review of Systems Review of Systems Constitutional: see HPI EENTM: see HPI Respiratory: see HPI Cardiovascular: see HPI Gastrointestinal: see HPI Genitourinary: see HPI Musculoskeletal: see HPI Skin: see HPI Psychiatric/Neurological: See HPI Hematologic/Lymphatic: See HPI Immunological/Allergic: see HPI All Other Systems Reviewed Negative Unless Noted: Yes Past Cbswpxo-Vxuvhk-Ptvwzc Hx Patient Social History Tobacco Use?: No Substance use?: No Alcohol Use?: No Pt feels they are or have been: No Immunizations Up To Date Tetanus Booster (TDap): Unknown First/Initial COVID19 Vaccinat: NOT VACCINATED Second COVID19 Vaccination Get: NOT VACCINATED Third COVID19 Vaccination Date: NOT VACCINATED Seasonal Allergies Seasonal Allergies: No Past Medical History Surgery/Hospitalization HX: MRSA APPY C Section Bladder Surgery Stroke with R side residual Cataracts Dilation Urethral structurre HTN Cheek Cellulitis Surgeries: Yes (cystoscopies) Appendectomy, Bladder Surgery, Section, Gallbladder, Tonsillectomy Respiratory: Yes COPD Cardiac: Yes High Cholesterol, Hypertension Neurological: Yes Neuropathy, Stroke Genitourinary: Yes (urethral strictures) UTI-Chronic Gastrointestinal: Yes Gall Bladder Disease Musculoskeletal: Yes Arthritis, Chronic Back Pain Endocrine: Yes Diabetes, Insulin dep HEENT: Yes (decreasing vision with age and due to DM) Hearing Impairment: Denies Cancer: No Psychosocial: No Depression Integumentary: Yes (L ORBITAL CELLULITIS, 2018 CHEEK CELLULITIS) Recent Skin Changes Blood Disorders: No Family Medical History Patient reports no known family medical history. Diabetes, Hypertension Physical Exam Vital Signs Vital Signs - First Documented 11/24/21 11/24/21 08:58 12:59 Temp 36.7 Pulse 95 Resp 16 B/P (MAP) 80/44 (56) Pulse Ox 94 O2 Delivery Room Air O2 Flow Rate 2.50 Capillary Refill : Less Than 3 Seconds Height, Weight, BMI Height: 5'6.00" Weight: 290lbs. 1.0oz. 131.485594tc; 52.62 BMI Method:Stated General Appearance: No Apparent Distress, WD/WN, Anxious Eyes: Bilateral Eye Normal Inspection, Bilateral Eye PERRL HEENT: PERRL/EOMI, Normal ENT Inspection, Pharynx Normal Neck: Full Range of Motion, Non Tender Respiratory: Lungs Clear Cardiovascular: Other (Edema) Gastrointestinal: Soft, Other (exam impeded by body habitus) Extremity: Swelling (R leg swelling and redness. ), Other Neurologic/Psychiatric: Alert, Oriented x3, nurses' registry director II-XII Norm as Tested Skin: Normal Color, Warm/Dry, Rash (Cellulitis of bilateral lower extremities extending from feet up to proximal thighs.) Focused Exam Sepsis Stage: Ruled Out Lactate Level 11/24/21 08:47: Lactic Acid Level 5.34*H 11/24/21 10:59: Lactic Acid Level 3.48*H Lactic Acid Level Laboratory Tests Test 11/24/21 08:47 11/24/21 10:59 Lactic Acid Level 5.34 MMOL/L (0.50-2.00) *H 3.48 MMOL/L (0.50-2.00) *H Progress/Results/Core Measures Suspected Sepsis SIRS Temperature: Pulse: 95 Respiratory Rate: 16 Laboratory Tests 11/24/21 08:47: White Blood Count 15.5H Blood Pressure 80 /44 Mean: 56 11/24/21 08:47: Lactic Acid Level 5.34*H 11/24/21 10:59: Lactic Acid Level 3.48*H Laboratory Tests 11/24/21 08:47: Creatinine 1.85H, Platelet Count 118L, Total Bilirubin 0.6 Results/Orders Lab Results Laboratory Tests Test 11/24/21 08:47 11/24/21 09:21 11/24/21 09:55 11/24/21 10:59 Range/Units White Blood Count 15.5 H 4.3-11.0 10^3/uL Red Blood Count 3.63 L 3.80-5.11 10^6/uL Hemoglobin 12.7 11.5-16.0 g/dL Hematocrit 38 35-52 % Mean Corpuscular Volume 105 H 80-99 fL Mean Corpuscular Hemoglobin 35 H 25-34 pg Mean Corpuscular Hemoglobin Concent 33 32-36 g/dL Red Cell Distribution Width 13.7 10.0-14.5 % Platelet Count 118 L 130-400 10^3/uL Mean Platelet Volume 9.4 9.0-12.2 fL Immature Granulocyte % (Auto) 2 % Neutrophils (%) (Auto) 91 H 42-75 % Lymphocytes (%) (Auto) 3 L 12-44 % Monocytes (%) (Auto) 3 0-12 % Eosinophils (%) (Auto) 0 0-10 % Basophils (%) (Auto) 1 0-10 % Neutrophils # (Auto) 14.1 H 1.8-7.8 X 10^3 Lymphocytes # (Auto) 0.5 L 1.0-4.0 X 10^3 Monocytes # (Auto) 0.5 0.0-1.0 X 10^3 Eosinophils # (Auto) 0.0 0.0-0.3 10^3/uL Basophils # (Auto) 0.1 0.0-0.1 10^3/uL Immature Granulocyte # (Auto) 0.3 H 0.0-0.1 10^3/uL Neutrophils % (Manual) 58 % Lymphocytes % (Manual) 3 % Monocytes % (Manual) 4 % Eosinophils % (Manual) 0 % Basophils % (Manual) 0 % Metamyelocytes % 1 % Band Neutrophils 34 % Percent Immature Platelet Fraction 1.8 0.0-7.6 % Sodium Level 134 L 135-145 MMOL/L Potassium Level 6.0 H 3.6-5.0 MMOL/L Chloride Level 100 98-107 MMOL/L Carbon Dioxide Level 17 L 21-32 MMOL/L Anion Gap 17 H 5-14 MMOL/L Blood Urea Nitrogen 37 H 7-18 MG/DL Creatinine 1.85 H 0.60-1.30 MG/DL Estimat Glomerular Filtration Rate 30 BUN/Creatinine Ratio 20 Glucose Level 307 H 70-105 MG/DL Lactic Acid Level 5.34 *H 3.48 *H 0.50-2.00 MMOL/L Calcium Level 8.6 8.5-10.1 MG/DL Corrected Calcium 8.9 8.5-10.1 MG/DL Total Bilirubin 0.6 0.1-1.0 MG/DL Aspartate Amino Transf (AST/SGOT) 57 H 5-34 U/L Alanine Aminotransferase (ALT/SGPT) 72 H 0-55 U/L Alkaline Phosphatase 99 40-136 U/L Troponin I < 0.30 <0.30 NG/ML Pro-B-Type Natriuretic Peptide 806.3 H <125.0 PG/ML Total Protein 6.2 L 6.4-8.2 GM/DL Albumin 3.6 3.2-4.5 GM/DL Influenza Type A (RT-PCR) Not Detected Not Detecte Influenza Type B (RT-PCR) Not Detected Not Detecte SARS-CoV-2 RNA (RT-PCR) Not Detected Not Detecte Urine Color ORANGE Urine Clarity TURBID Urine pH 5.5 5-9 Urine Specific [place] 1.020 1.016-1.022 Urine Protein 2+ H NEGATIVE Urine Glucose (UA) NEGATIVE NEGATIVE Urine Ketones TRACE H NEGATIVE Urine Nitrite POSITIVE H NEGATIVE Urine Bilirubin NEGATIVE NEGATIVE Urine Urobilinogen 1.0 < = 1.0 MG/DL Urine Leukocyte Esterase 3+ H NEGATIVE Urine RBC (Auto) TRACE-I H NEGATIVE Urine RBC NONE /HPF Urine WBC 50-100 H /HPF Urine Squamous Epithelial Cells 2-5 /HPF Urine Crystals NONE /LPF Urine Bacteria LARGE H /HPF Urine Casts PRESENT /LPF Urine Hyaline Casts 0-2 H /LPF Urine Mucus NEGATIVE /LPF Urine Culture Indicated YES My Orders Orders - WEST ELLER DO Cbc With Automated Diff (11/24/21 08:56) Comprehensive Metabolic Panel (11/24/21 08:56) Catheter(Urinary) Insert & Ass 03,15 (11/24/21 08:56) Lactic Acid Analyzer (11/24/21 08:56) Blood Culture (11/24/21 08:56) Chest 1 View Ap/Pa Only (11/24/21 08:56) Ekg Tracing (11/24/21 08:56) Probnp Fs (11/24/21 08:56) Troponin I Fs (11/24/21 08:56) Ns Iv 1000 Ml (Sodium Chloride 0.9%) (11/24/21 09:00) Covid 19 Inhouse Test (11/24/21 08:56) Ua Culture If Indicated (11/24/21 08:56) Influenza A And B By Pcr (11/24/21 08:56) Isolation Central Supply Req (11/24/21 08:56) Ct Head Wo (11/24/21 08:56) Pelvis With Right Hip 2-3 View (11/24/21 08:56) Fentanyl Inj (Sublimaze Injection) (11/24/21 09:00) Ondansetron Injection (Zofran Injectio (11/24/21 09:00) Manual Differential (11/24/21 08:47) Ns Iv 1000 Ml (Sodium Chloride 0.9%) (11/24/21 09:30) Piperacillin Sodium/Tazobactam (Zosyn Vi (11/24/21 09:30) Blood Culture (11/24/21 09:45) Vancomycin Injection (Vancomycin Injecti (11/24/21 10:15) Urine Culture (11/24/21 09:55) Medications Given in ED Current Medications Medications Dose Ordered Sig/Suzi Route Start Time Stop Time Status Last Admin Dose Admin Fentanyl Citrate 50 mcg ONCE ONCE IVP 11/24/21 09:00 11/24/21 09:02 DC 11/24/21 09:41 50 MCG Ondansetron HCl 4 mg ONCE ONCE IVP 11/24/21 09:00 11/24/21 09:02 DC 11/24/21 09:41 4 MG Piperacillin Sod/ Tazobactam Sod 4.5 gm/Sodium Chloride 100 ml @ 200 mls/hr ONCE ONCE IV 11/24/21 09:30 11/24/21 09:59 DC 11/24/21 09:41 200 MLS/HR Vancomycin HCl 1000 mg/Sodium Chloride 250 ml @ 250 mls/hr ONCE ONCE IV 11/24/21 10:15 11/24/21 11:14 DC 11/24/21 10:21 250 MLS/HR Vital Signs/I&O 11/24/21 11/24/21 08:58 12:59 Temp 36.7 36.7 Pulse 95 82 Resp 16 16 B/P (MAP) 80/44 (56) 116/58 Pulse Ox 94 94 O2 Delivery Room Air Nasal Cannula O2 Flow Rate 2.50 Capillary Refill : Less Than 3 Seconds Blood Pressure Mean: 56 Departure Communication (Admissions) EKG: Sinus rhythm, rate 87, no acute ST-T wave changes, normal [place], QRS, QTc intervals. Chest x-ray: No acute cardiopulmonary disease on preliminary ED review. Patient with cellulitis of bilateral lower extremities, generalized weakness with hypotension likely secondary to volume depletion and sepsis due to UTI and cellulitis. IV fluids and broad spectrum antibiotics given. IV fluids bolus adjusted according to ideal body weight. Heart rate and blood pressure improved. Will admit to [facility] hospitalist service at [facility]. Impression Primary Impression: Severe sepsis Additional Impressions: Cellulitis Cellulitis of right lower extremity Cellulitis of left lower extremity Hyperkalemia Acute renal insufficiency Morbid obesity Disposition: ADMITTED INPATIENT Condition: Critical Admissions Decision to Admit Reason: Admit from ER (General) Decision to Admit/Date: Nov 24, 2021 Time/Decision to Admit Time: 11:00 Transfer Transfer Reason: Exceeds level of care Time Spoke to Accepting Phy: 11:00 Method of Transfer: EMS Departure-Patient Inst. Referrals: KATIE HUDSON MD (PCP) Primary Care Physician WEST ELLER DO Nov 24, 2021 09:33
[2021-11-24 09:36] LABS: SODIUM 134 MMOL/L (135-145)
[2021-11-24 09:37] LABS: ALANINE AMINOTRANSFERASE 72 U/L (0-55); ALKALINE PHOSPHATASE 99 U/L (40-136); BILIRUBIN,TOTAL 0.6 MG/DL (0.1-1.0); BUN/CREATININE RATIO 20; CALCIUM 8.6 MG/DL (8.5-10.1); CARBON DIOXIDE 17 MMOL/L (21-32); CHLORIDE 100 MMOL/L (98-107); CREATININE SERUM 1.85 MG/DL (0.60-1.30); GFR ESTIMATED 30; GLUCOSE 307 MG/DL (70-105)
[2021-11-24 09:38] LABS: ALBUMIN 3.6 GM/DL (3.2-4.5); TOTAL PROTEIN 6.2 GM/DL (6.4-8.2)
--- NOTE | 2021-11-24 09:40 | Diagnostic Imaging Report ---
INDICATION: Fall. TIME OF EXAM: 9:29 AM FINDINGS: AP view of the pelvis and 2 views right hip were obtained. Hip alignment is normal. Right femoral head and neck are intact. No fractures are seen. Rami appear intact. IMPRESSION: No acute abnormality is detected. Dictated by: Dictated on workstation # [id number]
--- NOTE | 2021-11-24 09:43 | Diagnostic Imaging Report ---
PROCEDURE: CT head without contrast. TECHNIQUE: Multiple contiguous axial images were obtained through the brain without the use of intravenous contrast. Auto Exposure Controls were utilized during the CT exam to meet ALARA standards for radiation dose reduction. INDICATION: Fall. Comparison is made with prior head CT from 11/17/2018. Ventricular size and sulcal pattern appears stable. There appears to be periventricular low attenuation consistent with chronic microvascular ischemia. There is no midline shift. No acute intra-axial or extra-axial hemorrhage is detected. Cisterns are patent. Visualized paranasal sinuses are clear. IMPRESSION: Changes of chronic microvascular ischemia. No acute intracranial process is detected. Dictated by: Dictated on workstation # [id number]
[2021-11-24 10:02] LABS: BILIRUBIN,URINE NEGATIVE (NEGATIVE); CLARITY,URINE TURBID; COLOR,URINE ORANGE; GLUCOSE, URINE (UA) NEGATIVE (NEGATIVE); KETONES,URINE TRACE (NEGATIVE); LEUKOCYTE ESTERASE ,URINE 3+ (NEGATIVE); NITRITE,URINE POSITIVE (NEGATIVE); PH,URINE 5.5 (5-9); PROTEIN,URINE 2+ (NEGATIVE)
[2021-11-24] MEDS: NS IV 1000 ML 1,000 ML IV SCH ×3 (10:11→16:00)
[2021-11-24 10:14] LABS: BACTERIA,URINE LARGE /HPF; HYALINE CASTS, URINE 0-2 /LPF; WBC,URINE 50-100 /HPF
[2021-11-24] MEDS ORDERED: VANCOMYCIN INJECTION 1,000 MG in NS (IVPB) 250 ML IV ONE (10:15)
[2021-11-24 10:46] LABS: NEUTROPHILS % (MANUAL) 58 %
[2021-11-24 10:47] LABS: BAND NEUTROPHILS 34 %; BASOPHILS % (MANUAL) 0 %; EOSINOPHILS % (MANUAL) 0 %; LYMPHOCYTES % (MANUAL) 3 %; METAMYELOCYTES % 1 %; MONOCYTES % (MANUAL) 4 %
--- NOTE | 2021-11-24 14:48 | History & Physical-Hospitalist ---
FIDELINA GOMEZ 11/24/21 1448: History of Present Illness HPI/Chief Complaint CC:Severe sepsis secondary to UTI and B/L LE cellulitis HPI: 66 yr old F presented to [facility] ER this morning post fall. Patient reports feeling dizzy, chills, sweats with urinary frequency and dysuria this morning. This was accompanied with lightheadedness and syncopal episode while attempting to use the bathroom. Pt spent most of night on bathroom floor. Patient did fall backwards striking her head landing on her right hip. Pt claims she has mild/moderate MIGUEL, back pain, BL LE pain (7/10). She reports right hip pain with inability to stand and numbness to distal Rt LE.. Pt denies any N/V. Source: patient Exam Limitations: no limitations Date Seen 11/24/21 Time Seen by a Provider: 14:30 Attending Physician Andrew Celis MD PCP Admitting Physician: Bisi Newman DO Attending Physician: Bisi Newman DO Referring Physician Date of Admission Nov 24, 2021 at 14:15 Home Medications & Allergies Home Medications Reviewed patient Home Medication Reconciliation performed by pharmacy medication reconciliations nanotechnology engineering technician and/or nursing. Patients Allergies have been reviewed. Allergies Allergies Uncoded Allergies IV CONTRAST ( Adverse Reaction, Mild, HIVES, 09/17/18) Past Ayhnsjq-Qcpcnm-Keafgt Hx Patient Social History Marrital Status: Number of Children: 1 Tobacco Use?: No Substance use?: No Alcohol Use?: No Pt feels they are or have been: No Immunizations Up To Date First/Initial COVID19 Vaccinat: NOT VACCINATED Second COVID19 Vaccination Get: NOT VACCINATED Tetanus Booster (TDap): More Than 5 Years Date of Pneumonia Vaccine: Apr 17, 2015 Seasonal Allergies Seasonal Allergies: No Current Status status: No Advance Directives: No Primary Language: Cameroonian Preferred Spoken Language: Cameroonian Past Medical History Surgeries: Appendectomy, Bladder Surgery, Section, Gallbladder, Tonsillectomy COPD High Cholesterol, Hypertension Neuropathy, Stroke UTI-Chronic Gall Bladder Disease Arthritis, Chronic Back Pain Diabetes, Insulin dep Hearing Impairment: Denies Depression Recent Skin Changes Blood Disorders: No HTN IDDM Chronic pain Family Medical History Patient reports no known family medical history. Diabetes, Hypertension Review of Systems Constitutional: chills, diaphoresis, dizziness, fever, malaise, weakness EENTM: no symptoms reported Respiratory: cough, wheezing Cardiovascular: chest pain, edema, Hx of Intervention, syncope, other (Unable to palpate dorsalis pedis or post tibial pulse in BL LE due to edema) Gastrointestinal: RUQ, abdominal pain (RUQ); No constipation, No diarrhea, No jaundice, No nausea, No vomiting Genitourinary: dysuria, frequency Musculoskeletal: joint pain, joint swelling, muscle pain, muscle weakness Skin: change in color (B/L LE errythema and edema.), change in hair/nails, lesions, rash (BL LE) Psychiatric/Neurological: Numbness (Rt LE L4-S1 ) Physical Exam Physical Exam Vital Signs Vital Signs - First Documented 11/24/21 11/24/21 08:58 12:59 Temp 36.7 Pulse 95 Resp 16 B/P (MAP) 80/44 (56) Pulse Ox 94 O2 Delivery Room Air O2 Flow Rate 2.50 Capillary Refill : Less Than 3 Seconds Height, Weight, BMI Height: 5'6.00" Weight: 290lbs. 1.0oz. 131.198684vb; 52.62 BMI Method:Stated General Appearance: Moderate Distress, Obese Eyes: Left Eye Abnormal EOM; Bilateral Eye PERRL Neck: Non Tender, Supple, Limited Range of Motion Respiratory: Chest Non Tender, No Accessory Muscle Use, Wheezing Cardiovascular: Regular Rate, Rhythm, No Gallop Gastrointestinal: Normal Bowel Sounds, No Organomegaly, No Pulsatile Mass, Soft, Tenderness (RUQ) Back: Decreased Range of Motion, Vertebral Tenderness Extremity: Calf Tenderness, Inflammation, Pedal Edema, Slow Capillary Refill, Swelling, Other (B/L cellulitis from foot to proximal thigh) Neurologic/Psychiatric: Alert, Oriented x3, Sensory Deficit, Other (nystagmus in L eye) Skin: Ecchymosis, Erythema, Rash Results Results/Procedures Labs Laboratory Tests 11/24/21 08:47 Patient resulted labs reviewed. Assessment/Plan Admission Diagnosis Sepsis secondary to UTI and B/L cellulitis of LE Admission Status: Inpatient Order (span 2 midnights) Reason for Inpatient Admission: sepsis Assessment and Plan 1) Sepsis * obtain Urine and Blood cultures * serial CBC and CMP * restart vanc and zoysn IV * restart NS IV bag * keep kingston cath in place * repeat lactic acid collection * supportive care and pain control for UTI and cellulitis 2) RUQ pain * RUQ abdominal US * restart statin therapy 3) DM * monitor with POC glucose * start insulin therapy 4) Cellulitis * B/L wound culture * apply topical abx * apply wraps to prevent further irritation and control swelling 5)COPD * start duoneb therapy * continue O2 * monitor PO2 BISI NEWMAN DO 11/24/212116: History of Present Illness HPI/Chief Complaint CC: Severe sepsis from UTI and lower extremity cellulitis HPI: This is a morbidly obese 66WF who presents from home after being doing down all night after a fall. Patient was hypotensive and met criteria for severe sepsis from UTI and cellulitis of her legs. Rhabdo also noted. Past Tgxrkzb-Zvjoym-Aciyfm Hx Family Medical History Patient reports no known family medical history. Review of Systems Constitutional: see HPI Physical Exam Physical Exam General Appearance: Anxious, Chronically ill, Moderate Distress, Obese, Other (ill) Respiratory: Lungs Clear, Normal Breath Sounds Cardiovascular: Tachycardia Neurologic/Psychiatric: Alert, Oriented x3, Depressed Affect Assessment/Plan Admission Diagnosis Assessment: Severe sepsis UTI Lower extremity cellulitis Obesity Found down at home Rhabdomyolysis ELEANOR Plan: Monitor LA Pain control IVFIV abx Admission Status: Inpatient Order (span 2 midnights) Reason for Inpatient Admission: sepsis Diagnosis/Problems Diagnosis/Problems (1) Severe sepsis Status: Acute (2) Urinary tract infection Status: Acute (3) Debility Status: Acute (4) Morbid obesity Status: Acute (5) Dehydration Status: Acute (6) Nausea vomiting and diarrhea Status: Acute Supervisory-Addendum Brief Verification & Attestation Participated in pt care: history, MDM, physical Personally performed: exam, history, MDM, supervision of care Care discussed with: Medical Student Procedures: n/a Results interpretation: Verified all documentation Verification and Attestation of Medical Student E/M Service A medical student performed and documented this service in my presence. I reviewed and verified all information documented by the medical student and made modifications to such information, when appropriate. I personally performed the physical exam and medical decision making. Bisi Newman, Nov 24, 2021,21:14 FIDELINA GOMEZ Nov 24, 2021 14:48 BISI NEWMAN DO Nov 24, 2021 21:17
--- NOTE | 2021-11-24 14:59 | Tele-ICU Consult ---
History of Present Illness History of Present Illness Date Seen by Provider: Nov 24, 2021 Time Seen by Provider: 14:51 History of Present Illness 66 yo F with morbid obesity, comes to ED with weakness, urinary frequency and dysuria, also had syncopal episode hypotension-80/44 U/A has 50-100 WBC's During syncope hit head and right hip, CT head just shows microvascular changes and CT hip ok Also has redness and swelling or RLE Started on IV Vancomycin and IV Zosyn, getting IVF LA 5.34 now 3.48, Cr 1.85, WBC 15.5, mild elevation of AST/ALT 57/72, troponin is normal, BNP 806, potassium is 6.0 PMH Hx of MRSA sepsis, CVA with right residual weakness, HTN, HDL, COPD, depression, Hx of uretheral stricture, chronic UTI Allergies and Home Medications Allergies Uncoded Allergies: IV CONTRAST (Adverse Reaction, Mild, HIVES, 09/17/18) Home Medications Amitriptyline HCl 50 Mg Tablet, 50 MG PO HS, (Reported) LAST FILLED 06-28-2021 #30/30 DAY SUPPLY Amoxicillin/Potassium Clav 875 Mg-125 Mg Tablet, 1 EACH PO BID Prescribed by: ALTHEA NEWMAN on 08/20/211121 Aspirin 81 Mg Tablet.dr, 81 MG PO DAILY, (Reported) Fluoxetine HCl 40 Mg Capsule, 40 MG PO BID, (Reported) Fluticasone Propionate 1 Ea Aero, 2-4 PUFF IH BID PRN for SHORTNESS OF BREATH, (Reported) Gabapentin 600 Mg Tablet, 600 MG PO TID PRN for NERVE PAIN, (Reported) Ibuprofen 800 Mg Tablet, 800 MG PO TID PRN for PAIN-MILD (1-4), (Reported) Losartan Potassium 50 Mg Tablet, 50 MG PO DAILY, (Reported) Metformin HCl 1,000 Mg Tablet, 1,000 MG PO BID WITH MEALS, (Reported) Nystatin 100,000 Unit/Gram Cream..g., 0 GM TP BID apply to legs Prescribed by: ALTHEA NEWMAN on 08/20/211121 Oxybutynin Chloride 5 Mg Tablet, 5 MG PO TID PRN for OVERACTIVE BLADDER, (Reported) Oxycodone Hcl 5 Mg Tab, 7.5 MG PO Q4HR PRN for PAIN-SEE DOSE INSTRUCTIONS Prescribed by: ALTHEA NEWMAN on 5/6/22 1123 Rivaroxaban 10 Mg Tablet, 10 MG PO DAILY Prescribed by: ALTHEA NEWMAN on 08/20/21 1124 Triamcinolone Acet 0.1 % Cr, 0 GM TP BID Prescribed by: ALTHEA NEWMAN on 08/20/21 1122 Past Medical/Social/Family Hx Patient Social History Tobacco Use?: No Substance use?: No Alcohol Use?: No Pt stated abuse/neglect: No Immunizations Up To Date First/Initial COVID19 Vaccinat: NOT VACCINATED Second COVID19 Vaccination Get: NOT VACCINATED Tetanus Booster (TDap): More Than 5 Years Date of Pneumonia Vaccine: Apr 17, 2015 Current Status status: No Advance Directives: No Primary Language: Frisian Preferred Spoken Language: Frisian Past Medical History HTN IDDM Chronic pain Review of Systems Constitutional: see HPI EENTM: see HPI Respiratory: see HPI Cardiovascular: see HPI Gastrointestinal: see HPI Genitourinary: see HPI Musculoskeletal: see HPI Skin: see HPI Psychiatric/Neurological: See HPI Focused Exam Lactate Level 11/24/21 08:47: Lactic Acid Level 5.34*H 11/24/21 10:59: Lactic Acid Level 3.48*H Height, Weight, BMI Height: 5'6.00" Weight: 290lbs. 1.0oz. 131.034652he; 52.62 BMI Method:Stated Lactic Acid Level Laboratory Tests Test 11/24/21 10:59 Lactic Acid Level 3.48 MMOL/L (0.50-2.00) *H Exam Exam Patient acknowledged, consented, and participated in this virtual visit which was conducted using real time audio/video Vital Signs Date Time Temp Pulse Resp B/P (MAP) Pulse Ox O2 Delivery O2 Flow Rate FiO2 11/24/21 12:59 36.7 82 16 116/58 94 Nasal Cannula 2.50 11/24/21 08:58 36.7 95 16 80/44 (56) 94 Room Air Height & Weight Height: 5'6.00" Weight: 290lbs. 1.0oz. 131.878375kz; 52.62 BMI Method:Stated General Appearance: No Apparent Distress, WD/WN, Anxious HEENT: PERRL/EOMI, Normal ENT Inspection, Pharynx Normal Neck: Full Range of Motion, Non Tender Respiratory: Lungs Clear Cardiovascular: Other (Edema) Capillary Refill: Less Than 3 Seconds Gastrointestinal: normal bowel sounds, non tender, soft Extremity: Swelling (R leg swelling and redness. ), Other Neurologic/Psychiatric: Alert, Oriented x3, center customer service associate II-XII Norm as Tested Skin: Normal Color, Warm/Dry, Rash (Cellulitis of bilateral lower extremities extending from feet up to proximal thighs.) Results Lab Laboratory Tests 11/24/21 08:47 Assessment/Plan Assessment/Plan urosepsis and RLE cellulitis, morbid obesity will continue IVF, abx, potassium is 6- will give insulin D50W and NaHCO3 Critical Care: Critically Ill Patient Time spent with patient (mins): 30 ZACH EWING MD Nov 24, 2021 14:59
[2021-11-24] MEDS ORDERED: ONDANSETRON 4 MG/2 ML (SDV) Z0FRAN IV PRN (15:00)
[2021-11-24] MEDS ORDERED: diphenhydrAMINE 25 MG TAB (BENADRYL) PO PRN (15:00)
[2021-11-24] MEDS ORDERED: ANTACID SUSP 30 ML UDC (MYLANTA) PO PRN (15:00)
[2021-11-24] MEDS ORDERED: NS IV 500 ML 500 ML IV PRN (15:00)
[2021-11-24] MEDS ORDERED: morphine INJ 4 MG/ML 1 ML (VIAL/SYRINGE) IV PRN (15:00)
[2021-11-24] MEDS ORDERED: ONDANSETRON 4 MG (ZOFRAN) ORAL DISSOLVE TAB PO PRN (15:00)
[2021-11-24] MEDS ORDERED: BISACODYL 10 MG SUPP (DULCOLAX) PR PRN (15:00)
[2021-11-24] MEDS ORDERED: VANCOMYCIN INJECTION 0.1 MG in NS (IVPB) 250 ML IV SCH (15:00)
[2021-11-24] MEDS ORDERED: diphenhydrAMINE 50 MG/ML INJ (BENADRYL) IVP PRN (15:00)
[2021-11-24] MEDS ORDERED: polyethylene glycoL POWDER 17 GM (MIRALAX) PACK PO PRN (15:00)
[2021-11-24] MEDS ORDERED: LORazepam 0.5 MG (ATIVAN) TABLET PO PRN (15:00)
[2021-11-24] MEDS ORDERED: inSUlin (REGULAR) HUMAN 1 UNIT/0.01 ML (CHARGE PER UNIT) SC NR (15:15)
[2021-11-24] MEDS ORDERED: DEXTROSE 50% 50 ML (IMS) SYR IV NR (15:15)
[2021-11-24] MEDS ORDERED: SODIUM BICARB 8.4% 50 MEQ/50 ML (ABBOTT) SYR IV NR (15:30)
[2021-11-24] MEDS ORDERED: VANCOMYCIN 1 GM/NS 250 ML IVPB IV NR ×2 (16:00)
[2021-11-24] MEDS ORDERED: VANCOMYCIN 2000 MG/NS 500 ML IVPB IV NR ×2 (16:00)
[2021-11-24] MEDS: ENOXAPARIN 60 MG/0.6 ML (LOVENOX) SYR SC SCH (16:01)
[2021-11-24] MEDS: CEFEPIME 1,000 MG/NS 50 ML IVPB IV SCH ×2 (16:01)
[2021-11-24] MEDS ORDERED: RT-ALBUTEROL/IPRATROPIUM 3 ML (DUONEB) VIAL INH PRN (16:45)
[2021-11-24 17:54] LABS: ALBUMIN 2.9 GM/DL (3.2-4.5); BILIRUBIN,TOTAL 0.6 MG/DL (0.1-1.0); CALCIUM 7.6 MG/DL (8.5-10.1); CREATININE SERUM 1.99 MG/DL (0.60-1.30); POTASSIUM 5.9 MMOL/L (3.6-5.0); TOTAL PROTEIN 5.2 GM/DL (6.4-8.2)
[2021-11-24] MEDS: RT-ALBUTEROL/IPRATROPIUM 3 ML (DUONEB) VIAL INH SCH (20:41)
[2021-11-24] MEDS: FAMOTIDINE 20 MG (PEPCID) TABLET PO SCH (20:42)
[2021-11-24] MEDS: DOCUSATE SODIUM 100 MG (COLACE) CAP PO SCH (20:43)
[2021-11-24] MEDS ORDERED: inSUlin ASPART (NovoLOG) 1 UNIT/0.01 ML (CHARGE PER UNIT) ONE (20:57)
[2021-11-24] MEDS: inSUlin ASPART (NovoLOG) 1 UNIT/0.01 ML (CHARGE PER UNIT) SC SCH (20:58)
[2021-11-24] MEDS ORDERED: CEFEPIME INJECTION 2,000 MG in NS (IVPB) 50 ML IV SCH (21:00)
[2021-11-25] MEDS: NS IV 1000 ML 1,000 ML IV SCH ×3 (00:08→16:17)
[2021-11-25] MEDS: CEFEPIME 1,000 MG/NS 50 ML IVPB IV SCH ×6 (00:08→16:17)
[2021-11-25] MEDS: ENOXAPARIN 60 MG/0.6 ML (LOVENOX) SYR SC SCH ×2 (03:47→16:17)
[2021-11-25 04:34] LABS: BASOPHILS % (AUTO) 0 % (0-10); HEMOGLOBIN 11.1 g/dL (11.5-16.0); MEAN PLATELET VOLUME 9.3 fL (9.0-12.2)
[2021-11-25 04:37] LABS: EOSINOPHILS % (AUTO) 0 % (0-10); HEMATOCRIT 34 % (35-52); LYMPHOCYTES # (AUTO) 1.1 10^3/uL (1.0-4.0); LYMPHOCYTES % (AUTO) 7 % (12-44); MEAN CORPUSCULAR HEMOGLOBIN 34 pg (25-34); MEAN CORPUSCULAR HGB CONC 33 g/dL (32-36); MEAN CORPUSCULAR VOLUME 105 fL (80-99); MONOCYTES # (AUTO) 0.5 10^3/uL (0.0-1.0); MONOCYTES % (AUTO) 3 % (0-12); NEUTROPHILS # (AUTO) 14.2 10^3/uL (1.8-7.8); NEUTROPHILS % (AUTO) 88 % (42-75); PLATELET COUNT 105 10^3/uL (130-400); WHITE BLOOD COUNT 16.1 10^3/uL (4.3-11.0)
[2021-11-25 05:01] LABS: ALBUMIN 2.9 GM/DL (3.2-4.5); BILIRUBIN,TOTAL 0.5 MG/DL (0.1-1.0); CALCIUM 7.8 MG/DL (8.5-10.1); CREATININE SERUM 1.84 MG/DL (0.60-1.30); MAGNESIUM 1.7 MG/DL (1.6-2.4); PHOSPHORUS 2.7 MG/DL (2.3-4.7); POTASSIUM 5.1 MMOL/L (3.6-5.0); TOTAL PROTEIN 5.3 GM/DL (6.4-8.2)
[2021-11-25] MEDS: inSUlin ASPART (NovoLOG) 1 UNIT/0.01 ML (CHARGE PER UNIT) SC SCH ×4 (05:38→21:41)
[2021-11-25] MEDS ORDERED: POTASSIUM CL 10MEQ/50ML IVPB 50 ML IV SCH (06:00)
[2021-11-25] MEDS ORDERED: KCL 20 MEQ TAB (K-DUR) PO SCH (06:00)
[2021-11-25] MEDS ORDERED: MAGNESIUM 1 GM/100 ML IVPB 100 ML IV SCH (06:00)
[2021-11-25] MEDS: RT-ALBUTEROL/IPRATROPIUM 3 ML (DUONEB) VIAL INH SCH ×2 (07:28→21:01)
[2021-11-25] MEDS: DOCUSATE SODIUM 100 MG (COLACE) CAP PO SCH ×2 (07:54→21:41)
--- NOTE | 2021-11-25 12:41 | Progress Note - Hospitalist ---
FIDELINA GOMEZ 11/25/21 1241: Subjective HPI/CC On Admission Date Seen by Provider: Nov 25, 2021 Time Seen by Provider: 11:00 CC: Severe sepsis from UTI and lower extremity cellulitis HPI: This is a morbidly obese 66WF who presents from home after being doing down all night after a fall. Patient was hypotensive and met criteria for severe sepsis from UTI and cellulitis of her legs. Rhabdo also noted. Subjective/Events-last exam HPI: 66 F day 2 ICU admission for severe sepsis Pt denies fever, N/V, chest pain or palpitations, fever or MIGUEL Pt confirms low back and BL LE pain 10/24 and SOB on exertion O2 continued Urine and Blood cultures pending Review of Systems General: No Chills, No Night Sweats; Fatigue; No Appetite HEENT: No Head Aches, No Dysphasia Pulmonary: Dyspnea, Cough Cardiovascular: Edema; No: Chest Pain, Palpitations Gastrointestinal: Abdominal Pain (RUQ & LUQ), Constipation; No: Nausea, Vomiting Genitourinary: No Dysuria Musculoskeletal: back pain, leg pain, foot pain Neurological: Weakness, Numbness (Rt LE L4-S1) Focused Exam Lactate Level 11/24/21 19:35: Lactic Acid Level 2.83*H 11/24/21 22:42: Lactic Acid Level 2.32*H 11/25/21 01:08: Lactic Acid Level 1.64 Objective Exam Vital Signs Vital Signs Date Time Temp Pulse Resp B/P (MAP) Pulse Ox O2 Delivery O2 Flow Rate FiO2 11/25/21 12:00 92 15 109/53 91 Nasal Cannula 4.00 11/25/21 12:00 36.5 Capillary Refill : Less Than 3 Seconds General Appearance: Mild Distress, Obese HEENT: No PERRL/EOMI (Lt eye nystagmus) Neck: Non Tender, Supple Respiratory: Chest Non Tender, No Accessory Muscle Use, No Respiratory Distress, Wheezing Cardiovascular: Regular Rate, Rhythm, No Gallop, No JVD, No Murmur, Other (un able to palpate LE pulses due to edema) Gastrointestinal: Normal Bowel Sounds, No Organomegaly, No Pulsatile Mass, Soft Back: Vertebral Tenderness (lumbar ) Extremity: Calf Tenderness, Inflammation, Pedal Edema, Slow Capillary Refill (BL LE), Swelling Neurologic/Psychiatric: Alert, Oriented x3, Sensory Deficit (rt LE) Skin: Normal Color, Warm/Dry Results/Procedures Lab Laboratory Tests 11/24/21 17:25 11/25/21 04:29 Patient resulted labs reviewed. Assessment/Plan Assessment and Plan Assess & Plan/Chief Complaint 1) Sepsis * Urine and Blood pending * serial CBC and CMP * continue abx and fluids * keep kingston cath in place * supportive care and pain control * vasopresson if BP falls 2) RUQ pain * RUQ abdominal US * continue statin therapy 3) DM * monitor with POC glucose * continue insulin therapy 4) Cellulitis * B/L wound culture * apply topical abx * apply wraps to prevent further irritation and control swelling 5)COPD * start duoneb therapy * continue O2 * monitor PO2 Clinical Quality Measures DVT/VTE Risk/Contraindication: Contraindications-Mechi: Other *list below* Other: leg cellulitis BISI NEWMAN DO 11/25/212109: Subjective Subjective/Events-last exam Patient much better but appears to be very declined Moved to cardiac stepdown Supportive care Supervisory-Addendum Brief Verification & Attestation Participated in pt care: history, MDM, physical Personally performed: exam, history, MDM, supervision of care Care discussed with: Medical Student Procedures: n/a Results interpretation: Verified all documentation Verification and Attestation of Medical Student E/M Service A medical student performed and documented this service in my presence. I reviewed and verified all information documented by the medical student and made modifications to such information, when appropriate. I personally performed the physical exam and medical decision making. Bisi Newman Nov 25, 2021,21:10 FIDELINA GOMEZ Nov 25, 2021 12:41 BISI NEWMAN DO Nov 25, 2021 21:10
[2021-11-25] MEDS ORDERED: VANCOMYCIN 1500 MG/NS 500 ML IVPB IV SCH ×2 (16:00)
[2021-11-25] MEDS: ACETAMINOPHEN 325 MG TABLET PO PRN (21:41)
[2021-11-25] MEDS: FAMOTIDINE 20 MG (PEPCID) TABLET PO SCH (21:41)
[2021-11-26] MEDS: NS IV 1000 ML 1,000 ML IV SCH ×3 (00:10→12:05)
[2021-11-26] MEDS: CEFEPIME 1,000 MG/NS 50 ML IVPB IV SCH ×8 (00:10→22:14)
[2021-11-26] MEDS: ENOXAPARIN 60 MG/0.6 ML (LOVENOX) SYR SC SCH ×2 (03:22→16:25)
[2021-11-26 05:00] LABS: BASOPHILS # (AUTO) 0.1 10^3/uL (0.0-0.1); BASOPHILS % (AUTO) 1 % (0-10); MEAN CORPUSCULAR VOLUME 106 fL (80-99)
[2021-11-26 05:02] LABS: EOSINOPHILS # (AUTO) 0.1 10^3/uL (0.0-0.3); EOSINOPHILS % (AUTO) 1 % (0-10); HEMATOCRIT 33 % (35-52); HEMOGLOBIN 10.8 g/dL (11.5-16.0); LYMPHOCYTES # (AUTO) 0.9 10^3/uL (1.0-4.0); LYMPHOCYTES % (AUTO) 7 % (12-44); MEAN CORPUSCULAR HEMOGLOBIN 35 pg (25-34); MEAN CORPUSCULAR HGB CONC 33 g/dL (32-36); MEAN PLATELET VOLUME 9.4 fL (9.0-12.2); MONOCYTES # (AUTO) 0.6 10^3/uL (0.0-1.0); MONOCYTES % (AUTO) 5 % (0-12); NEUTROPHILS # (AUTO) 10.5 10^3/uL (1.8-7.8); NEUTROPHILS % (AUTO) 85 % (42-75); PLATELET COUNT 100 10^3/uL (130-400); WHITE BLOOD COUNT 12.4 10^3/uL (4.3-11.0)
[2021-11-26 05:23] LABS: ALBUMIN 2.7 GM/DL (3.2-4.5); BILIRUBIN,TOTAL 0.6 MG/DL (0.1-1.0); CALCIUM 7.7 MG/DL (8.5-10.1); CREATININE SERUM 1.42 MG/DL (0.60-1.30); MAGNESIUM 1.8 MG/DL (1.6-2.4); POTASSIUM 4.5 MMOL/L (3.6-5.0); TOTAL PROTEIN 5.3 GM/DL (6.4-8.2)
[2021-11-26] MEDS: inSUlin ASPART (NovoLOG) 1 UNIT/0.01 ML (CHARGE PER UNIT) SC SCH ×4 (05:31→20:37)
[2021-11-26] MEDS: RT-ALBUTEROL/IPRATROPIUM 3 ML (DUONEB) VIAL INH SCH ×2 (08:29→19:22)
[2021-11-26] MEDS: DOCUSATE SODIUM 100 MG (COLACE) CAP PO SCH ×2 (10:01→20:15)
[2021-11-26] MEDS: ACETAMINOPHEN 325 MG TABLET PO PRN ×2 (10:05→14:30)
[2021-11-26] MEDS ORDERED: MAGNESIUM CITRATE 300 ML BTL PO NR (11:00)
[2021-11-26] MEDS ORDERED: BISACODYL 10 MG SUPP (DULCOLAX) PR NR (11:00)
--- NOTE | 2021-11-26 11:24 | Progress Note - Hospitalist ---
FIDELINA GOMEZ 11/26/21 1124: Subjective HPI/CC On Admission Date Seen by Provider: Nov 26, 2021 Time Seen by Provider: 11:00 CC: Severe sepsis from UTI and lower extremity cellulitis HPI: This is a morbidly obese 66WF who presents from home after being doing down all night after a fall. Patient was hypotensive and met criteria for severe sepsis from UTI and cellulitis of her legs. Rhabdo also noted. Subjective/Events-last exam HPI: 66 F day 3 admission for severe sepsis Pt denies fever, N/V, chest pain or palpitations, fever or MIGUEL Pt confirms low back and BL LE muscle pain 7/10 and SOB on exertion, and constipation and distention O2 continued Abx continued Urine and Blood cultures showed Klebsiella and Staph. Aureus Review of Systems General: No Chills, No Night Sweats; Fatigue, Malaise HEENT: No Head Aches Pulmonary: No Dyspnea, No Cough Cardiovascular: No: Chest Pain, Palpitations Gastrointestinal: Constipation; No: Nausea, Vomiting, Abdominal Pain Genitourinary: No Dysuria Musculoskeletal: back pain, leg pain, foot pain Neurological: Weakness, Numbness (Rt. LE) Focused Exam Lactate Level 11/24/21 19:35: Lactic Acid Level 2.83*H 11/24/21 22:42: Lactic Acid Level 2.32*H 11/25/21 01:08: Lactic Acid Level 1.64 Objective Exam Vital Signs Vital Signs Date Time Temp Pulse Resp B/P (MAP) Pulse Ox O2 Delivery O2 Flow Rate FiO2 11/26/21 08:29 92 Nasal Cannula 4.00 11/26/21 08:00 36.8 90 15 125/62 Capillary Refill : Less Than 3 Seconds General Appearance: Mild Distress, Obese Neck: Non Tender, Supple Respiratory: Chest Non Tender, Lungs Clear, Normal Breath Sounds, No Accessory Muscle Use, No Respiratory Distress Cardiovascular: Regular Rate, Rhythm, No Gallop, No JVD, No Murmur Gastrointestinal: No Organomegaly, No Pulsatile Mass, Non Tender, Abnormal Bowel Sounds (hypoactive), Distended Back: Vertebral Tenderness Extremity: Calf Tenderness, Inflammation, Pedal Edema, Slow Capillary Refill (BL LE), Swelling Neurologic/Psychiatric: Alert, Oriented x3, Sensory Deficit (Rt LE) Skin: Warm/Dry, Ecchymosis (BL Feet), Erythema (BL LE) Results/Procedures Lab Laboratory Tests 11/26/21 04:49 Patient resulted labs reviewed. Assessment/Plan Assessment and Plan Assess & Plan/Chief Complaint 1) Sepsis * Urine and Blood confirmed pathogens * serial CBC and CMP * continue abx and fluids * keep knigston cath in place * supportive care and pain control 3) DM * monitor with POC glucose * continue insulin therapy 4) Cellulitis * B/L wound culture * apply topical abx * apply wraps to prevent further irritation and control swelling 5)COPD * start duoneb therapy * continue O2 * monitor PO2 6) Constipation * start suppository and stool softener PT/OT ordered Transfer to 4th floor if beds available Clinical Quality Measures DVT/VTE Risk/Contraindication: Contraindications-Mechi: Other *list below* Other: leg cellulitis BISI NEWMAN DO 11/26/212156: Subjective Subjective/Events-last exam Pt is doing a lot better Transferring to 4th floor No other new concerns Antibiotics maintained Review of Systems General: Fatigue, Malaise Musculoskeletal: leg pain Objective Exam General Appearance: No Apparent Distress, WD/WN, Obese Respiratory: Lungs Clear, Normal Breath Sounds Cardiovascular: Regular Rate, Rhythm Extremity: Calf Tenderness, Inflammation, Pedal Edema Assessment/Plan Assessment and Plan Assess & Plan/Chief Complaint IV abx Pain control Lovenox Supervisory-Addendum Brief Verification & Attestation Participated in pt care: history, MDM, physical Personally performed: exam, history, MDM, supervision of care Care discussed with: Medical Student Procedures: n/a Results interpretation: Verified all documentation Verification and Attestation of Medical Student E/M Service A medical student performed and documented this service in my presence. I reviewed and verified all information documented by the medical student and made modifications to such information, when appropriate. I personally performed the physical exam and medical decision making. Bisi Newman Nov 26, 2021,21:55 FIDELINA GOMEZ Nov 26, 2021 11:24 BISI NEWMAN DO Nov 26, 2021 21:57
[2021-11-26] MEDS ORDERED: TROUGH ORDER-PHARMACY XX NR (15:00)
[2021-11-26] MEDS ORDERED: VANCOMYCIN 2000 MG/NS 500 ML IVPB IV SCH ×2 (17:00)
[2021-11-26] MEDS: FAMOTIDINE 20 MG (PEPCID) TABLET PO SCH (20:15)
[2021-11-26] MEDS: MELATONIN 3 MG TABLET PO PRN (23:40)
[2021-11-27] MEDS: CEFEPIME 1,000 MG/NS 50 ML IVPB IV SCH ×8 (04:26→21:24)
[2021-11-27] MEDS: ENOXAPARIN 60 MG/0.6 ML (LOVENOX) SYR SC SCH ×2 (04:27→16:37)
[2021-11-27] MEDS: inSUlin ASPART (NovoLOG) 1 UNIT/0.01 ML (CHARGE PER UNIT) SC SCH ×5 (05:49→21:24)
[2021-11-27 06:06] LABS: BASOPHILS % (AUTO) 1 % (0-10)
[2021-11-27 06:08] LABS: BASOPHILS # (AUTO) 0.1 10^3/uL (0.0-0.1); EOSINOPHILS # (AUTO) 0.1 10^3/uL (0.0-0.3); EOSINOPHILS % (AUTO) 1 % (0-10); HEMATOCRIT 32 % (35-52); HEMOGLOBIN 10.5 g/dL (11.5-16.0); LYMPHOCYTES # (AUTO) 0.8 10^3/uL (1.0-4.0); LYMPHOCYTES % (AUTO) 7 % (12-44); MEAN CORPUSCULAR HEMOGLOBIN 35 pg (25-34); MEAN CORPUSCULAR HGB CONC 33 g/dL (32-36); MEAN CORPUSCULAR VOLUME 105 fL (80-99); MEAN PLATELET VOLUME 9.6 fL (9.0-12.2); MONOCYTES # (AUTO) 0.8 10^3/uL (0.0-1.0); MONOCYTES % (AUTO) 7 % (0-12); NEUTROPHILS # (AUTO) 8.9 10^3/uL (1.8-7.8); NEUTROPHILS % (AUTO) 83 % (42-75); PLATELET COUNT 115 10^3/uL (130-400); WHITE BLOOD COUNT 10.7 10^3/uL (4.3-11.0)
[2021-11-27 06:35] LABS: ALBUMIN 2.6 GM/DL (3.2-4.5); BILIRUBIN,TOTAL 0.7 MG/DL (0.1-1.0); CALCIUM 8.1 MG/DL (8.5-10.1); MAGNESIUM 1.7 MG/DL (1.6-2.4); POTASSIUM 4.4 MMOL/L (3.6-5.0); TOTAL PROTEIN 5.6 GM/DL (6.4-8.2)
[2021-11-27] MEDS: DOCUSATE SODIUM 100 MG (COLACE) CAP PO SCH ×2 (08:08→19:53)
[2021-11-27 10:55] VITALS: BP 142/67
[2021-11-27] MEDS: RT-ALBUTEROL/IPRATROPIUM 3 ML (DUONEB) VIAL INH SCH ×2 (10:55→19:30)
--- NOTE | 2021-11-27 11:50 | Progress Note - Hospitalist ---
Subjective HPI/CC On Admission Date Seen by Provider: Nov 27, 2021 Time Seen by Provider: 10:00 CC: Severe sepsis from UTI and lower extremity cellulitis HPI: This is a morbidly obese 66WF who presents from home after being doing down all night after a fall. Patient was hypotensive and met criteria for severe sepsis from UTI and cellulitis of her legs. Rhabdo also noted. Subjective/Events-last exam Patient extremely weak denies shortness of breath or chest pain. Focused Exam Lactate Level 11/24/21 19:35: Lactic Acid Level 2.83*H 11/24/21 22:42: Lactic Acid Level 2.32*H 11/25/21 01:08: Lactic Acid Level 1.64 Objective Exam Vital Signs Vital Signs Date Time Temp Pulse Resp B/P (MAP) Pulse Ox O2 Delivery O2 Flow Rate FiO2 11/27/21 11:33 37.2 92 20 138/66 93 Nasal Cannula 2.00 11/27/21 10:55 2 Capillary Refill : Less Than 3 Seconds General Appearance: Chronically ill, Obese Respiratory: Chest Non Tender, Lungs Clear, Normal Breath Sounds, No Accessory Muscle Use, No Respiratory Distress Cardiovascular: Regular Rate, Rhythm, No Edema, No Gallop, No JVD, No Murmur, Normal Peripheral Pulses Gastrointestinal: Normal Bowel Sounds, Non Tender, Soft Extremity: Other (3+ edema with some ecchymosis in the toes of the left foot which are warm with chronic venous insufficiency change. No ulceration noted.) Results/Procedures Lab Laboratory Tests 11/27/21 05:15 Patient resulted labs reviewed. Assessment/Plan Assessment and Plan Assess & Plan/Chief Complaint Assess & Plan/Chief Complaint 1) Sepsis Urine and Blood confirmed pathogens serial CBC and CMP continue abx and fluids keep kingston cath in place supportive care and pain control 11/27/2021: Blood culture growing staph aureus methicillin sensitive urine growing Klebsiella pneumonia and Klebsiella aerogenes we will discontinue vancomycin continuing cefepime. 3) DM monitor with POC glucose continue insulin therapy 4) Cellulitis B/L wound culture apply topical abx apply wraps to prevent further irritation and control swelling 5)COPD start duoneb therapy continue O2 monitor PO2 6) Constipation start suppository and stool softener PT/OT ordered Critical Care Critically Ill Patient Clinical Quality Measures DVT/VTE Risk/Contraindication: Contraindications-Mechi: Other *list below* Other: leg cellulitis REECE,ISRAEL D MD Nov 27, 2021 11:50
[2021-11-27] MEDS: MELATONIN 3 MG TABLET PO PRN (19:53)
[2021-11-27] MEDS: FAMOTIDINE 20 MG (PEPCID) TABLET PO SCH (19:53)
[2021-11-28] MEDS: CEFEPIME 1,000 MG/NS 50 ML IVPB IV SCH ×8 (03:43→21:31)
[2021-11-28] MEDS: ENOXAPARIN 60 MG/0.6 ML (LOVENOX) SYR SC SCH ×2 (03:43→16:35)
[2021-11-28] MEDS: inSUlin ASPART (NovoLOG) 1 UNIT/0.01 ML (CHARGE PER UNIT) SC SCH ×4 (05:00→21:46)
[2021-11-28 05:29] LABS: MEAN CORPUSCULAR HEMOGLOBIN 35 pg (25-34); MEAN PLATELET VOLUME 9.4 fL (9.0-12.2)
[2021-11-28 05:31] LABS: BASOPHILS % (AUTO) 0 % (0-10); EOSINOPHILS # (AUTO) 0.2 10^3/uL (0.0-0.3); EOSINOPHILS % (AUTO) 2 % (0-10); HEMATOCRIT 31 % (35-52); HEMOGLOBIN 10.5 g/dL (11.5-16.0); LYMPHOCYTES # (AUTO) 0.9 10^3/uL (1.0-4.0); LYMPHOCYTES % (AUTO) 10 % (12-44); MEAN CORPUSCULAR HGB CONC 33 g/dL (32-36); MEAN CORPUSCULAR VOLUME 104 fL (80-99); MONOCYTES # (AUTO) 0.5 10^3/uL (0.0-1.0); MONOCYTES % (AUTO) 6 % (0-12); NEUTROPHILS # (AUTO) 7.4 10^3/uL (1.8-7.8); NEUTROPHILS % (AUTO) 81 % (42-75); PLATELET COUNT 142 10^3/uL (130-400); WHITE BLOOD COUNT 9.1 10^3/uL (4.3-11.0)
[2021-11-28 05:41] LABS: ALBUMIN 2.6 GM/DL (3.2-4.5); POTASSIUM 4.3 MMOL/L (3.6-5.0)
[2021-11-28 05:42] LABS: CALCIUM 8.5 MG/DL (8.5-10.1)
[2021-11-28 05:43] LABS: TOTAL PROTEIN 5.7 GM/DL (6.4-8.2)
[2021-11-28 05:45] LABS: BILIRUBIN,TOTAL 0.7 MG/DL (0.1-1.0)
[2021-11-28 05:47] LABS: CREATININE SERUM 0.87 MG/DL (0.60-1.30)
[2021-11-28 05:50] LABS: MAGNESIUM 1.8 MG/DL (1.6-2.4)
[2021-11-28] MEDS: DOCUSATE SODIUM 100 MG (COLACE) CAP PO SCH ×2 (08:03→21:31)
[2021-11-28] MEDS: RT-ALBUTEROL/IPRATROPIUM 3 ML (DUONEB) VIAL INH SCH ×2 (10:06→20:49)
[2021-11-28] MEDS ORDERED: TROUGH ORDER-PHARMACY XX NR (16:00)
[2021-11-28] MEDS: MELATONIN 3 MG TABLET PO PRN (21:31)
[2021-11-28] MEDS: FAMOTIDINE 20 MG (PEPCID) TABLET PO SCH (21:31)
[2021-11-29] MEDS: ENOXAPARIN 60 MG/0.6 ML (LOVENOX) SYR SC SCH ×2 (03:51→17:22)
[2021-11-29] MEDS: CEFEPIME 1,000 MG/NS 50 ML IVPB IV SCH ×8 (03:51→22:49)
[2021-11-29 05:23] LABS: BASOPHILS # (AUTO) 0.1 10^3/uL (0.0-0.1); BASOPHILS % (AUTO) 1 % (0-10); EOSINOPHILS # (AUTO) 0.2 10^3/uL (0.0-0.3); EOSINOPHILS % (AUTO) 3 % (0-10); HEMATOCRIT 32 % (35-52); HEMOGLOBIN 10.7 g/dL (11.5-16.0); LYMPHOCYTES # (AUTO) 1.3 10^3/uL (1.0-4.0); LYMPHOCYTES % (AUTO) 17 % (12-44); MEAN CORPUSCULAR HEMOGLOBIN 35 pg (25-34); MEAN CORPUSCULAR HGB CONC 33 g/dL (32-36); MEAN CORPUSCULAR VOLUME 106 fL (80-99); MEAN PLATELET VOLUME 9.7 fL (9.0-12.2); MONOCYTES # (AUTO) 0.3 10^3/uL (0.0-1.0); MONOCYTES % (AUTO) 5 % (0-12); NEUTROPHILS # (AUTO) 5.5 10^3/uL (1.8-7.8); NEUTROPHILS % (AUTO) 73 % (42-75); PLATELET COUNT 151 10^3/uL (130-400); WHITE BLOOD COUNT 7.5 10^3/uL (4.3-11.0)
[2021-11-29 05:38] LABS: CREATININE SERUM 0.84 MG/DL (0.60-1.30); POTASSIUM 4.2 MMOL/L (3.6-5.0)
[2021-11-29 05:39] LABS: ALBUMIN 2.6 GM/DL (3.2-4.5); BILIRUBIN,TOTAL 0.4 MG/DL (0.1-1.0); CALCIUM 8.8 MG/DL (8.5-10.1); MAGNESIUM 1.6 MG/DL (1.6-2.4); TOTAL PROTEIN 5.9 GM/DL (6.4-8.2)
[2021-11-29] MEDS: inSUlin ASPART (NovoLOG) 1 UNIT/0.01 ML (CHARGE PER UNIT) SC SCH ×4 (06:00→22:50)
[2021-11-29] MEDS: RT-ALBUTEROL/IPRATROPIUM 3 ML (DUONEB) VIAL INH SCH ×2 (08:02→21:39)
[2021-11-29] MEDS: DOCUSATE SODIUM 100 MG (COLACE) CAP PO SCH ×2 (09:29→22:50)
--- NOTE | 2021-11-29 10:35 | Progress Note ---
Subjective Subjective/Events-last exam States she is feeling okay. When asked if she feel she is getting stronger, she says "I don't know". Objective Exam Last Set of Vital Signs Vital Signs Date Time Temp Pulse Resp B/P (MAP) Pulse Ox O2 Delivery O2 Flow Rate FiO2 11/29/21 08:44 94 Nasal Cannula 2.00 11/29/21 07:18 36.3 81 16 133/63 11/27/21 10:55 2 Capillary Refill : Less Than 3 Seconds I&O Intake and Output 11/29/21 00:00 Intake Total 1040 ml Output Total 2700 ml Balance -1660 ml Intake Oral 890 ml IV Total 150 ml Output Urine Total 2700 ml # Bowel Movements 1 General: Alert Lungs: Clear to Auscultation Heart: Regular Rate, Other (3/6 early systolic murmur) Abdomen: Normal Bowel Sounds Extremities: Other (Left leg 2+ pitting edema with erythema, bruising over toes; right leg 1+ pitting edema with mild erythema compared to left) Neuro: Other (oriented to self only) Results/Procedures Lab Laboratory Tests 11/28/21 11:04: Glucometer 260H 11/28/21 16:07: Vancomycin Level Trough 8.7L 11/28/21 16:25: Glucometer 191H 11/28/21 20:51: Glucometer 244H 11/29/21 05:15: White Blood Count 7.5, Red Blood Count 3.05L, Hemoglobin 10.7L, Hematocrit 32L, Mean Corpuscular Volume 106H, Mean Corpuscular Hemoglobin 35H, Mean Corpuscular Hemoglobin Concent 33, Red Cell Distribution Width 13.6, Platelet Count 151, Mean Platelet Volume 9.7, Immature Granulocyte % (Auto) 3, Neutrophils (%) (Auto) 73, Lymphocytes (%) (Auto) 17, Monocytes (%) (Auto) 5, Eosinophils (%) (Auto) 3, Basophils (%) (Auto) 1, Neutrophils # (Auto) 5.5, Lymphocytes # (Auto) 1.3, Monocytes # (Auto) 0.3, Eosinophils # (Auto) 0.2, Basophils # (Auto) 0.1, Immature Granulocyte # (Auto) 0.2H, Sodium Level 138, Potassium Level 4.2, Chloride Level 108H, Carbon Dioxide Level 23, Anion Gap 7, Blood Urea Nitrogen 24H, Creatinine 0.84, Estimat Glomerular Filtration Rate 77, BUN/Creatinine Ratio 29, Glucose Level 158H, Calcium Level 8.8, Corrected Calcium 9.9, Magnesium Level 1.6, Total Bilirubin 0.4, Aspartate Amino Transf (AST/SGOT) 27, Alanine Aminotransferase (ALT/SGPT) 38, Alkaline Phosphatase 91, Total Protein 5.9L, Albumin 2.6L Microbiology 11/24/21 Urine Culture - Final, Complete Klebsiella aerogenes Klebsiella pneumoniae 11/24/21 Blood Culture - Preliminary, Resulted No growth 11/24/21 MRSA Screen - Final, Complete MRSA not isolated Assessment/Plan Assessment/Plan Assessment & Plan 1) Sepsis 11/27/2021: Blood culture growing staph aureus methicillin sensitive urine growing Klebsiella pneumonia and Klebsiella aerogenes, discontinued vancomycin, continued cefepime. 2) DM monitor with POC glucose continue insulin therapy 3) Cellulitis Cefepime 4)COPD start duoneb therapy continue O2 as needed 5) Altered mental status 11/29- son concerned about possible stroke, states for last 2 days she has been different than before, this pm when nurse called me, her mental status sounded worse than this morning, stroke eval done and she does have elevated NIH score but this seems to be related to global confusion and pain in legs, CT head remains with only microvascular changes noted, same as earlier in admission. Even if stroke seen, not a TPA candidate due to timing. Suspect metabolic encephalopathy from sepsis along with possibly some effect of oxycodone. No serious electrolyte abnormalities seen and her vitals are not markedly abnormal either. Attempted to call son this evening to update, no answer. 6) HTN- resume home losartan 7) CAD- resume home aspirin and atorvastatin and furosemide 8) History of CVA- with reported residual right side weakness per clinic record, on rivaroxaban at home for unclear reason, resume for now 9) Peripheral neuropathy- resume home gabapentin 10) Recurrent UTIs/urinary problems- referred outpatient prior to admit to Dr. Meadows, holding anticholinergic given altered mental status 11) Fall at home- pelvis and right hip xray okay 12) Debility- PT/OT, likely to need nursing facility on d/c 13) DVT prophylaxis- rivaroxaban Clinical Quality Measures DVT/VTE Risk/Contraindication: Contraindications-Mechi: Other *list below* Other: leg cellulitis CORNELIA MARQUEZ MD Nov 29, 2021 10:35
--- NOTE | 2021-11-29 11:13 | Physical Therapy Evaluation ---
PT Evaluation-General Medical Diagnosis Admission Date Nov 24, 2021 at 14:15 Medical Diagnosis: severe sepsis Onset Date: Nov 24, 2021 Therapy Diagnosis Therapy Diagnosis: severe weakness/debility Height/Weight Height (Feet): 5 Height (Inches): 6.00 Weight (Pounds): 290 Weight (Ounces): 1.0 Precautions Precautions/Isolations: Fall Prevention, Standard Precautions, Pressure Ulcer Referral Physician: Joshua Reason for Referral: Evaluation/Treatment Medical History Pertinent Medical History: Arthritis, CAD, COPD, CVA, DM, Neuropathy, Smoking Additional Medical History super obesity Current History EMS secondary patient rolled OOB and was on the floor over night Reviewed History: Yes Social History Home: Single Level Current Living Status: Children Entry Into Home: Ramp Prior Prior Level of Function SCALE: Activities may be completed with or without assistive devices. 1-Ybmphiqwbg-rxxefhq completes the activity by him/herself with no assistance from a helper. 5-Set-up or Clean-up Assistance-helper sets up or cleans up; patient completes activity. [place] assists only prior to or following the activity. 4-Supervision or Touching Assistance-helper provides verbal cues and/or touching/steadying and/or contact guard assistance as patient completes activity. Assistance may be provided throughout the activity or intermittently. 3-Partial/Moderate Assistance-helper does LESS THAN HALF the effort. [place] lifts, holds or supports trunk or limbs, but provides less than half the effort. 2-Substantial/Maximal Assistance-helper does MORE THAN HALF the effort. [place] lifts or holds trunk or limbs and provides more than half the effort. 8-Qkedvtbxu-bxfnbc does ALL the effort. Patient does none of the effort to complete the activity. Or, the assistance of 2 or more helpers is required for the patient to complete the activity. If activity was not attempted, code reason: 7-Patient Refused. 9-Not Applicable-not attempted and the patient did not perform the activity before the current illness, exacerbation or injury. 10-Not Attempted due to Environmental Limitations-(lack of equipment, weather restraints, etc.). 88-Not Attempted due to Medical Conditions or Safety Concerns. unable to determine due to patient's current cognitive function PT Evaluation-Current Objective Patient Orientation: Confused (delayed responses ) ROM/Strength ROM Lower Extremities bilateral limited due to severe edema and obesity Strength Lower Extremities 2-/5 grossly bilateral LE Integumentary/Posture Integumentary refer to nursing notes Bowel Incontinence: Yes Bladder Incontinence: Jones Cath Neuromuscular (Tone, Coordination, Reflexes) diminished coordination with gross motor skills (per RN, patient able to feed self on this date) Sensory Vision: Functional Hearing: Functional Transfers Roll Left to Right (QC): 1 (x 2) Sit to Lying (QC): 1 (x 2) Lying to Sitting/Side of Bed(Q: 1 (x 2) Sit to Stand (QC): 88 Chair/Vdb-xh-Xpzrf Xfer(QC): 88 Gait Does the Patient Walk?: No and Walking Goal NOT indicated Balance Sitting Static: Poor Sitting Dynamic: Poor Assessment/Needs Patient is severely debilitated and demonstrated delayed responses to all questions. Patient is currently not safe or able to perform OOB activity. Patient sat EOB x 5 min with mod assist to maintain. Patient very confused. Rehab Potential: Guarded PT Employee Benefits Specialist Goals [facility] Goals PT [facility] Goals Time Frame: Dec 18, 2021 Roll Left & Right (QC): 3 Sit to Lying (QC): 3 Lying-Sitting on Side/Bed(QC): 3 Sit to Stand (QC): 3 Chair/Tqj-sa-Pfgvl Xfer(QC): 3 PT Plan Problem List Problem List: Activity Tolerance, Functional Strength, Safety, Balance, Gait, Transfer, Bed Mobility, ROM Treatment/Plan Treatment Plan: Continue Plan of Care Treatment Plan: Bed Mobility, Education, Functional Activity Ezra, Functional Strength, Gait, Safety, Therapeutic Exercise, Transfers Treatment Duration: Dec 18, 2021 Frequency: 6 times per week Estimated Hrs Per Day: .25 hour per day Time/GCodes Time In: 1047 Time Out: 1103 Total Billed Treatment Time: 16 Total Billed Treatment 1 visit EVMod 16 min RENATA RYAN PT Nov 29, 2021 11:13
--- NOTE | 2021-11-29 11:29 | Occupational Therapy Eval ---
OT Evaluation-General/PLF Medical Diagnosis Admission Date Nov 24, 2021 at 14:15 Medical Diagnosis: severe sepsis Onset Date: Nov 24, 2021 Therapy Diagnosis Therapy Diagnosis: reduced adl status Height/Weight Height (Feet): 5 Height (Inches): 6.00 Weight (Pounds): 290 Weight (Ounces): 1.0 Precautions Precautions/Isolations: Fall Prevention, Standard Precautions, Pressure Ulcer Referral Physician: Joshua Referral Reason: Evaluation/Treatment Medical History Pertinent Medical History: Arthritis, CAD, COPD, CVA, DM, Neuropathy, Smoking Current History Pt presents with c/o dizziness and syncopal episode while using bathroom. Pt very confused, flat affect. Per chart, she lives in a multilevel home (able to stay on main level) with her son. Unsure of assist level for adls. Reviewed History: Yes Social History Home: Multilevel Current Living Status: Children Entry Into Home: Ramp ADL-Prior Level of Function SCALE: Activities may be completed with or without assistive devices. 3-Radjpodyfq-rzqdjvk completes the activity by him/herself with no assistance from a helper. 5-Set-up or Clean-up Assistance-helper sets up or cleans up; patient completes activity. [place] assists only prior to or following the activity. 4-Supervision or Touching Assistance-helper provides verbal cues and/or touching/steadying and/or contact guard assistance as patient completes activity. Assistance may be provided throughout the activity or intermittently. 3-Partial/Moderate Assistance-helper does LESS THAN HALF the effort. [place] lifts, holds or supports trunk or limbs, but provides less than half the effort. 2-Substantial/Maximal Assistance-helper does MORE THAN HALF the effort. [place] lifts or holds trunk or limbs and provides more than half the effort. 5-Kfuepoabc-rzyyqu does ALL the effort. Patient does none of the effort to complete the activity. Or, the assistance of 2 or more helpers is required for the patient to complete the activity. If activity was not attempted, code reason: 7-Patient Refused. 9-Not Applicable-not attempted and the patient did not perform the activity before the current illness, exacerbation or injury. 10-Not Attempted due to Environmental Limitations-(lack of equipment, weather restraints, etc.). 88-Not Attempted due to Medical Conditions or Safety Concerns. DME/Equipment: Bath Chair, Tub/Shower OT Current Status Subjective Pt presents with flat affect and very slow processing speed. Very confused, requires repetition and simplification of commands. Appearance Pt returned to supine in bed, all needs within reach. Mental Status/Objective Patient Orientation: Confused Attachments: Jones Catheter, IV, Oxygen Current Upper Extremity ROM Pt unable to follow directions ADL-Treatment Eating (QC): 5 (per nursing report) Lower Body Dressing (QC): 1 (per clinical judgment) On/Off Footwear (QC): 1 Toileting Hygiene (QC): 1 Supine<>sit: dependent x2. Very debilitated and confused. Slow processing speed with all cues. Once sitting EOB, min-mod a required to maintain balance for safety as pt often listing posteriorly or attempting to slide further to the edge. Pt not safe for any OOB activity at this time. Once returned to supine, pt incontinent of stool. Dependent to roll R/L and for concetta care. Education OT Patient Education: Correct positioning, Modified ADL techniques, Purpose of tx/functional activities, Reviewed precautions, Safety issues, Transfer techni ques Teaching Recipient: Patient Teaching Methods: Discussion Response to Teaching: Unable to Return Demonstration, Unable to Comprehend, Reinforcement Needed OT [facility] Goals Salvager Helper Goals Time Frame: Dec 20, 2021 Oral Hygiene (QC): 4 Toileting Hygiene (QC): 3 Shower/Bathe Self (QC): 3 Upper Body Dressing (QC): 3 Lower Body Dressing (QC): 3 Additional Goals: 1-Demonstrate ADL Tasks, 2-Verbalize Understanding, 3- ImproveStrength/Ezra 1=Demonstrate adherence to instructed precautions during ADL tasks. 2=Patient will verbalize/demonstrate understanding of assistive devices/modifications for ADL. 3=Patient will improve strength/tolerance for activity to enable patient to perform ADL's. OT Education/Plan Problem List/Assessment Assessment: Decreased Activ Tolerance, Decreased Safety Aware, Decreased UE Strength, Dependent Transfers, Edema, Impaired Bed Mobility, Impaired Cognition, Impaired Funct Balance, Impaired Self-Care Skills, Restricted Funct UE ROM Discharge Recommendations Plan/Recommendations: Continue POC Therapy Discharge Recommendati: Post Acute OT Target Placement Ongoing assessment warranted. Unsure how much assistance with adls pt requires at baseline. Treatment Plan/Plan of Care Treatment,Training & Education: Yes Patient would benefit from OT for education, treatment and training to promote independence in ADL's, mobility, safety and/or upper extremity function for ADL's. Plan of Care: ADL Retraining, Caregiver Training, Cognitive Retraining, Functional Mobility, Group Exercise/Act as Ind, UE Funct Exercise/Act, W/C Management Training Treatment Duration: Dec 20, 2021 Frequency: 3 times per week (3-5x/week) Estimated Hrs Per Day: .25 hour per day Rehab Potential: Guarded Time/GCodes Start Time: 10:47 Stop Time: 11:04 Total Time Billed (hr/min): 17 Billed Treatment Time [address] OT Nov 29, 2021 11:29
[2021-11-29] MEDS ORDERED: ATOR40TA70 PO (14:03)
[2021-11-29] MEDS ORDERED: FURO40TA4 PO (14:04)
[2021-11-29] MEDS ORDERED: RIVA10TA PO (14:04)
[2021-11-29] MEDS ORDERED: AMIT50TA3 PO (14:05)
[2021-11-29] MEDS ORDERED: ACET-2267 PO (14:08)
--- NOTE | 2021-11-29 15:51 | Diagnostic Imaging Report ---
PROCEDURE: CT head wo r/o stroke. TECHNIQUE: Multiple contiguous axial images were obtained through the brain without the use of intravenous contrast. Auto Exposure Controls were utilized during the CT exam to meet ALARA standards for radiation dose reduction. INDICATION: Mental status changes, confusion. Comparison is made with recent head CT from 11/24/2021. FINDINGS: Ventricular size and sulcal pattern appear stable. Extensive periventricular low attenuation is noted consistent with chronic microvascular ischemia. No midline shift is identified. No acute intra-axial or extra-axial hemorrhage is detected. Cisterns are patent. Visualized paranasal sinuses are clear. IMPRESSION: Stable chronic changes when compared with exam from 11/24/2021. No acute intracranial process is detected. Results were called to Shannan, patient's nurse, prior to this dictation at 3:47 p.m. Dictated by: Dictated on workstation # [id number]
[2021-11-29 16:00] VITALS: BP 139/82
[2021-11-29] MEDS ORDERED: GABAPENTIN 600 MG (NEURONTIN) TAB PO PRN (19:45)
[2021-11-29 20:12] VITALS: BP 124/72
[2021-11-29] MEDS: FAMOTIDINE 20 MG (PEPCID) TABLET PO SCH (22:50)
[2021-11-30 00:46] VITALS: BP 164/81
[2021-11-30 03:55] VITALS: BP 143/74
[2021-11-30] MEDS ORDERED: NS (IVPB) 50 ML ONE (04:21)
[2021-11-30] MEDS: CEFEPIME 1,000 MG/NS 50 ML IVPB IV SCH ×8 (04:30→23:02)
[2021-11-30 05:43] LABS: BASOPHILS % (AUTO) 1 % (0-10); EOSINOPHILS # (AUTO) 0.2 10^3/uL (0.0-0.3); EOSINOPHILS % (AUTO) 2 % (0-10); HEMATOCRIT 33 % (35-52); HEMOGLOBIN 10.8 g/dL (11.5-16.0); LYMPHOCYTES # (AUTO) 1.1 10^3/uL (1.0-4.0); LYMPHOCYTES % (AUTO) 16 % (12-44); MEAN CORPUSCULAR HEMOGLOBIN 34 pg (25-34); MEAN CORPUSCULAR HGB CONC 33 g/dL (32-36); MEAN CORPUSCULAR VOLUME 104 fL (80-99); MEAN PLATELET VOLUME 9.7 fL (9.0-12.2); MONOCYTES # (AUTO) 0.4 10^3/uL (0.0-1.0); MONOCYTES % (AUTO) 6 % (0-12); NEUTROPHILS # (AUTO) 4.8 10^3/uL (1.8-7.8); NEUTROPHILS % (AUTO) 73 % (42-75); PLATELET COUNT 202 10^3/uL (130-400); WHITE BLOOD COUNT 6.6 10^3/uL (4.3-11.0)
[2021-11-30 05:56] LABS: ALBUMIN 2.6 GM/DL (3.2-4.5); POTASSIUM 4.1 MMOL/L (3.6-5.0)
[2021-11-30 05:59] LABS: TOTAL PROTEIN 6.1 GM/DL (6.4-8.2)
[2021-11-30 06:01] LABS: BILIRUBIN,TOTAL 0.4 MG/DL (0.1-1.0)
[2021-11-30 06:02] LABS: CREATININE SERUM 0.84 MG/DL (0.60-1.30)
[2021-11-30 06:05] LABS: MAGNESIUM 1.4 MG/DL (1.6-2.4)
[2021-11-30] MEDS: inSUlin ASPART (NovoLOG) 1 UNIT/0.01 ML (CHARGE PER UNIT) SC SCH ×4 (06:35→21:17)
[2021-11-30] MEDS: RT-ALBUTEROL/IPRATROPIUM 3 ML (DUONEB) VIAL INH SCH ×2 (07:13→19:15)
[2021-11-30 07:43] VITALS: BP 148/69
[2021-11-30] MEDS ORDERED: MAGNESIUM OXIDE (MAG-OX)400 MG TAB PO ONE (08:15)
[2021-11-30] MEDS: ASPIRIN E.C. 81 MG (ECOTRIN) TAB PO SCH (09:54)
[2021-11-30] MEDS: FUROSEMIDE 40 MG (LASIX) TAB PO SCH (09:54)
[2021-11-30] MEDS: LOSARTAN 50 MG (COZAAR) TAB PO SCH (09:55)
[2021-11-30] MEDS: RIVAROXABAN 10 MG TABLET (XARELTO) PO SCH (09:55)
[2021-11-30] MEDS: DOCUSATE SODIUM 100 MG (COLACE) CAP PO SCH ×2 (09:55→19:20)
--- NOTE | 2021-11-30 10:25 | Progress Note ---
Subjective Subjective/Events-last exam Pt alert, and answers verbally but not meaningfully. When asked if she could tell me her name, she said "I don't know". She attempted to answer phone while I was in the room by holding it to her ear without pressing the answer button, and then nodded as if having a conversation for some time while there was no one on the line. Objective Exam Last Set of Vital Signs Vital Signs Date Time Temp Pulse Resp B/P (MAP) Pulse Ox O2 Delivery O2 Flow Rate FiO2 11/30/21 07:43 36.7 75 18 148/69 (95) 94 Room Air 11/30/21 07:13 21 11/30/21 03:55 1.00 Capillary Refill : Less Than 3 Seconds I&O Intake and Output 11/30/21 00:00 Intake Total 1150 ml Output Total 3300 ml Balance -2150 ml Intake Oral 1000 ml IV Total 150 ml Output Urine Total 3300 ml # Bowel Movements 1 General: Alert, No Acute Distress Lungs: Clear to Auscultation Heart: Regular Rate Abdomen: Normal Bowel Sounds, Soft Extremities: Other (bilateral pitting edema, marked erythema with some blistering over whelan on left) Neuro: Other (alert, disoriented, answers in one or two words, mostly yes, no or I don't know, unable to follow instructions for EOM testing, but does move eyes in all directions) Results/Procedures Lab Laboratory Tests 11/29/21 11:11: Glucometer 242H 11/29/21 16:04: Glucometer 258H 11/29/21 16:39: Glucometer 259H 11/29/21 20:49: Glucometer 186H 11/30/21 05:22: White Blood Count 6.6, Red Blood Count 3.15L, Hemoglobin 10.8L, Hematocrit 33L, Mean Corpuscular Volume 104H, Mean Corpuscular Hemoglobin 34, Mean Corpuscular Hemoglobin Concent 33, Red Cell Distribution Width 13.3, Platelet Count 202, Mean Platelet Volume 9.7, Immature Granulocyte % (Auto) 2, Neutrophils (%) (Auto) 73, Lymphocytes (%) (Auto) 16, Monocytes (%) (Auto) 6, Eosinophils (%) (Auto) 2, Basophils (%) (Auto) 1, Neutrophils # (Auto) 4.8, Lymphocytes # (Auto) 1.1, Monocytes # (Auto) 0.4, Eosinophils # (Auto) 0.2, Basophils # (Auto) 0.0, Immature Granulocyte # (Auto) 0.1, Sodium Level 136, Potassium Level 4.1, Chloride Level 105, Carbon Dioxide Level 21, Anion Gap 10, Blood Urea Nitrogen 20H, Creatinine 0.84, Estimat Glomerular Filtration Rate 77, BUN/Creatinine Ratio 24, Glucose Level 185H, Calcium Level 9.0, Corrected Calcium 10.1, Magnesium Level 1.4L, Total Bilirubin 0.4, Aspartate Amino Transf (AST/SGOT) 27, Alanine Aminotransferase (ALT/SGPT) 35, Alkaline Phosphatase 104, Total Protein 6.1L, Albumin 2.6L 11/30/21 06:07: Glucometer 188H Microbiology 11/24/21 Urine Culture - Final, Complete Klebsiella aerogenes Klebsiella pneumoniae 11/24/21 Blood Culture - Final, Complete No growth 11/24/21 MRSA Screen - Final, Complete MRSA not isolated Assessment/Plan Assessment/Plan Assessment & Plan 1) Sepsis 11/27/2021: Blood culture growing staph aureus methicillin sensitive urine growing Klebsiella pneumonia and Klebsiella aerogenes, discontinued vancomycin, continued cefepime. 2) DM monitor with POC glucose continue insulin therapy 3) Cellulitis Cefepime 4)COPD start duoneb therapy continue O2 as needed 5) Altered mental status 11/29- son concerned about possible stroke, states for last 2 days she has been different than before, this pm when nurse called me, her mental status sounded worse than this morning, stroke eval done and she does have elevated NIH score but this seems to be related to global confusion and pain in legs, CT head remains with only microvascular changes noted, same as earlier in admission. Even if stroke seen, not a TPA candidate due to timing. Suspect metabolic encephalopathy from sepsis along with possibly some effect of oxycodone. No serious electrolyte abnormalities seen and her vitals are not markedly abnormal either. Attempted to call son this evening to update, no answer. 11/30- Talked to son today while in patient room, discussed lab results, vital signs and CT without clear explanation besides possibly delirium secondary to infection which is being treated. Discussed obtaining MRI although not highly suspicious there will be findings to explain status, however, she is too large for the MRI. 6) HTN- resume home losartan 7) CAD- resume home aspirin and atorvastatin and furosemide 8) History of CVA- with reported residual right side weakness per clinic record, on rivaroxaban at home for unclear reason, resume for now 9) Peripheral neuropathy- resume home gabapentin 10) Recurrent UTIs/urinary problems- referred outpatient prior to admit to Dr. Meadows, holding anticholinergic given altered mental status 11) Fall at home- pelvis and right hip xray okay 12) Debility- PT/OT, likely to need nursing facility on d/c 13) DVT prophylaxis- rivaroxaban Clinical Quality Measures DVT/VTE Risk/Contraindication: Contraindications-Mechi: Other *list below* Other: leg cellulitis CORNELIA MARQUEZ MD Nov 30, 2021 10:25
--- NOTE | 2021-11-30 10:26 | Occupational Ther Daily Note ---
OT Current Status-Daily Note Subjective Pt's eyes open and looking at therapist though did not respond to questions or directions. Nrsg in room. Mental Status/Objective Patient Orientation: Person, Confused Attachments: Jones Catheter, IV ADL-Treatment Therapy Code Descriptions/Definitions Functional Bibb Measure: 0=Not Assessed/NA 4=Minimal Assistance 1=Total Assistance 5=Supervision or Setup 2=Maximal Assistance 6=Modified Bibb 3=Moderate Assistance 7=Complete IndependenceSCALE: Activities may be completed with or without assistive devices. 0-Dqzndtvkyw-psvcwnr completes the activity by him/herself with no assistance from a helper. 5-Set-up or Clean-up Assistance-helper sets up or cleans up; patient completes activity. [place] assists only prior to or following the activity. 4-Supervision or Touching Assistance-helper provides verbal cues and/or touching/steadying and/or contact guard assistance as patient completes activity. Assistance may be provided throughout the activity or intermittently. 3-Partial/Moderate Assistance-helper does LESS THAN HALF the effort. [place] lifts, holds or supports trunk or limbs, but provides less than half the effort. 2-Substantial/Maximal Assistance-helper does MORE THAN HALF the effort. [place] lifts or holds trunk or limbs and provides more than half the effort. 9-Tgzrsodww-fnuhml does ALL the effort. Patient does none of the effort to complete the activity. Or, the assistance of 2 or more helpers is required for the patient to complete the activity. If activity was not attempted, code reason: 7-Patient Refused. 9-Not Applicable-not attempted and the patient did not perform the activity before the current illness, exacerbation or injury. 10-Not Attempted due to Environmental Limitations-(lack of equipment, weather restraints, etc.). 88-Not Attempted due to Medical Conditions or Safety Concerns. Toileting Hygiene (QC): 1 (Pt incontinent of bowel. Assist x2-3 to roll then cleanse for toileting.) Other Treatment Attempted to assist pt to EOB, max A x2. Pt then leaning back and scooting hips forward while sitting EOB, would not stop motion with verbal/physical cues. Pt was positioned back into bed for safety. After pt was cleaned up from bowel incontinence, pt was positioned in bed. Safety measures in place. Call light/phone in reach at end of session. All needs met. OT [facility] Goals Nurse Reviewer Goals Time Frame: Dec 20, 2021 Oral Hygiene (QC): 4 Toileting Hygiene (QC): 3 Shower/Bathe Self (QC): 3 Upper Body Dressing (QC): 3 Lower Body Dressing (QC): 3 Additional Goals: 1-Demonstrate ADL Tasks, 2-Verbalize Understanding, 3-ImproveStrength/Ezra 1=Demonstrate adherence to instructed precautions during ADL tasks. 2=Patient will verbalize/demonstrate understanding of assistive devices/modifications for ADL. 3=Patient will improve strength/tolerance for activity to enable patient to per form ADL's. OT Education/Plan Problem List/Assessment Assessment: Decreased Activ Tolerance, Decreased Safety Aware, Decreased UE Strength, Dependent Transfers, Impaired Bed Mobility, Impaired Cognition, Impair ed Coordination, Impaired Funct Balance, Impaired I ADL's, Impaired Self-Care Skills, Restricted Funct UE ROM Discharge Recommendations Plan/Recommendations: Continue POC Treatment Plan/Plan of Care Patient would benefit from OT for education, treatment and training to promote independence in ADL's, mobility, safety and/or upper extremity function for ADL's. Plan of Care: ADL Retraining, Caregiver Training, Cognitive Retraining, F unctional Mobility, Group Exercise/Act as Ind, UE Funct Exercise/Act, W/C Management Training Treatment Duration: Dec 20, 2021 Frequency: 3 times per week (3-5x/week) Estimated Hrs Per Day: .25 hour per day Rehab Potential: Guarded Time/GCodes Start Time: 09:50 Stop Time: 10:05 Total Time Billed (hr/min): 15 Billed Treatment Time 1 visit-FA 1 (15 min) JACI PARRA Nov 30, 2021 10:26
--- NOTE | 2021-11-30 10:39 | Physical Therapy Daily Note ---
PT Daily Note-Current Subjective Patient alert with eyes open but not giving verbal responses except for yelling when moved. Mental Status Patient Orientation: Eyes Open Transfers SCALE: Activities may be completed with or without assistive devices. 0-Alaftlpswf-pdibcwa completes the activity by him/herself with no assistance from a helper. 5-Set-up or Clean-up Assistance-helper sets up or cleans up; patient completes activity. [place] assists only prior to or following the activity. 4-Supervision or Touching Assistance-helper provides verbal cues and/or touching/steadying and/or contact guard assistance as patient completes activity. Assistance may be provided throughout the activity or intermittently. 3-Partial/Moderate Assistance-helper does LESS THAN HALF the effort. [place] lifts, holds or supports trunk or limbs, but provides less than half the effort. 2-Substantial/Maximal Assistance-helper does MORE THAN HALF the effort. [place] lifts or holds trunk or limbs and provides more than half the effort. 3-Uewbmujro-pyrhfn does ALL the effort. Patient does none of the effort to complete the activity. Or, the assistance of 2 or more helpers is required for the patient to complete the activity. If activity was not attempted, code reason: 7-Patient Refused. 9-Not Applicable-not attempted and the patient did not perform the activity before the current illness, exacerbation or injury. 10-Not Attempted due to Environmental Limitations-(lack of equipment, weather restraints, etc.). 88-Not Attempted due to Medical Conditions or Safety Concerns. Roll Left & Right (QC): 1 (x 3) Sit to Lying (QC): 1 (x 3) Lying to Sitting/Side of Bed(Q: 1 (x 3) Assessment Attempted to sit patient EOB, however, patient extending body and unable to safely attain seated position. Dependent assist of 3 with all mobility. Patient not verbally responding to any questions asked by RN. Patient incontinent BM requiring dependent assist to cleanse and reposition (x 3 people) PT Call Center Supervisor Goals Call Center Supervisor Goals PT Care Home Goals Time Frame: Dec 18, 2021 Roll Left & Right (QC): 3 Sit to Lying (QC): 3 Lying-Sitting on Side/Bed(QC): 3 Sit to Stand (QC): 3 Chair/Mnr-fu-Dvyko Xfer(QC): 3 PT Plan Treatment/Plan Treatment Plan: Modify Plan, see comments Treatment Plan: Bed Mobility, Education, Functional Activity Ezra, Functional Strength, Gait, Safety, Therapeutic Exercise, Transfers Treatment Duration: Dec 18, 2021 Frequency: 5 times per week (due to current status and unable to actively participate with skilled PT) Estimated Hrs Per Day: .25 hour per day Time/GCodes Time In: 950 Time Out: 1004 Total Billed Treatment Time: 14 Total Billed Treatment 1visit FA 14 min RENATA RYAN PT Nov 30, 2021 10:39
[2021-11-30 11:20] VITALS: BP 144/87
[2021-11-30 15:28] VITALS: BP 144/65
[2021-11-30 19:09] VITALS: BP 164/74
[2021-11-30] MEDS: FAMOTIDINE 20 MG (PEPCID) TABLET PO SCH (21:17)
[2021-12-01] VITALS (7 sets, daily range): BP systolic 132–183; BP diastolic 56–88
[2021-12-01 05:26] LABS: BASOPHILS % (AUTO) 0 % (0-10); EOSINOPHILS # (AUTO) 0.2 10^3/uL (0.0-0.3); EOSINOPHILS % (AUTO) 3 % (0-10); HEMATOCRIT 33 % (35-52); HEMOGLOBIN 11.1 g/dL (11.5-16.0); LYMPHOCYTES # (AUTO) 1.3 10^3/uL (1.0-4.0); LYMPHOCYTES % (AUTO) 19 % (12-44); MEAN CORPUSCULAR HEMOGLOBIN 34 pg (25-34); MEAN CORPUSCULAR HGB CONC 34 g/dL (32-36); MEAN CORPUSCULAR VOLUME 103 fL (80-99); MEAN PLATELET VOLUME 9.4 fL (9.0-12.2); MONOCYTES # (AUTO) 0.4 10^3/uL (0.0-1.0); MONOCYTES % (AUTO) 6 % (0-12); NEUTROPHILS # (AUTO) 4.7 10^3/uL (1.8-7.8); NEUTROPHILS % (AUTO) 70 % (42-75); PLATELET COUNT 236 10^3/uL (130-400); WHITE BLOOD COUNT 6.6 10^3/uL (4.3-11.0)
[2021-12-01 05:37] LABS: ALBUMIN 2.7 GM/DL (3.2-4.5); POTASSIUM 3.7 MMOL/L (3.6-5.0)
[2021-12-01 05:38] LABS: CALCIUM 8.6 MG/DL (8.5-10.1)
[2021-12-01 05:40] LABS: TOTAL PROTEIN 6.2 GM/DL (6.4-8.2)
[2021-12-01 05:41] LABS: BILIRUBIN,TOTAL 0.5 MG/DL (0.1-1.0)
[2021-12-01 05:43] LABS: CREATININE SERUM 0.83 MG/DL (0.60-1.30)
[2021-12-01 05:46] LABS: MAGNESIUM 1.4 MG/DL (1.6-2.4)
[2021-12-01] MEDS: inSUlin ASPART (NovoLOG) 1 UNIT/0.01 ML (CHARGE PER UNIT) SC SCH ×4 (05:51→21:04)
[2021-12-01] MEDS: CEFEPIME 1,000 MG/NS 50 ML IVPB IV SCH ×4 (05:52→09:22)
[2021-12-01] MEDS: RT-ALBUTEROL/IPRATROPIUM 3 ML (DUONEB) VIAL INH SCH ×2 (07:09→22:12)
[2021-12-01] MEDS: DOCUSATE SODIUM 100 MG (COLACE) CAP PO SCH ×2 (09:00→20:01)
[2021-12-01] MEDS: ASPIRIN E.C. 81 MG (ECOTRIN) TAB PO SCH (09:22)
[2021-12-01] MEDS: LOSARTAN 50 MG (COZAAR) TAB PO SCH (09:22)
[2021-12-01] MEDS: FUROSEMIDE 40 MG (LASIX) TAB PO SCH (09:22)
[2021-12-01] MEDS: RIVAROXABAN 10 MG TABLET (XARELTO) PO SCH (09:22)
--- NOTE | 2021-12-01 11:30 | Physical Therapy Daily Note ---
PT Daily Note-Current Subjective Patient in bed pre tx, agrees to PT, has 10/10 pain in bottom. Appearance Patient in bed post tx with nurse call, phone, tray, all needs met. Laying on left side with pillow support for pressure relief. Mental Status Patient Orientation: Person, Place, Situation Attachments: Oxygen, IV Transfers SCALE: Activities may be completed with or without assistive devices. 7-Dewfyvpxis-oofgari completes the activity by him/herself with no assistance from a helper. 5-Set-up or Clean-up Assistance-helper sets up or cleans up; patient completes activity. [place] assists only prior to or following the activity. 4-Supervision or Touching Assistance-helper provides verbal cues and/or touching/steadying and/or contact guard assistance as patient completes activity. Assistance may be provided throughout the activity or intermittently. 3-Partial/Moderate Assistance-helper does LESS THAN HALF the effort. [place] lifts, holds or supports trunk or limbs, but provides less than half the effort. 2-Substantial/Maximal Assistance-helper does MORE THAN HALF the effort. [place] lifts or holds trunk or limbs and provides more than half the effort. 1-Kow[place]vins-dfcvuk does ALL the effort. Patient does none of the effort to complete the activity. Or, the assistance of 2 or more helpers is required for the patient to complete the activity. If activity was not attempted, code reason: 7-Patient Refused. 9-Not Applicable-not attempted and the patient did not perform the activity before the current illness, exacerbation or injury. 10-Not Attempted due to Environmental Limitations-(lack of equipment, weather restraints, etc.). 88-Not Attempted due to Medical Conditions or Safety Concerns. Roll Left & Right (QC): 1 Sit to Lying (QC): 1 Assist of 2 for supine to sit, patient was not able to sit straight up on the side of the bed for more than a couple of seconds due to pain in bottom, she didn't lean forcefully backward like yesterday though. She was only able to sit for a couple of minutes before needing to lay back down (assist of 2). Exercises Supine Ex: Ankle pumps, Quad Set, Heel Slides Supine Reps: 10 Treatments sitting, LE ROM Assessment Current Status: Poor Progress still needs assist of 2 people for supine <-> sit. PT Mcfp Goals Mcfp Goals PT Pharmacy Clinical Specialist Goals Time Frame: Dec 18, 2021 Roll Left & Right (QC): 3 Sit to Lying (QC): 3 Lying-Sitting on Side/Bed(QC): 3 Sit to Stand (QC): 3 Chair/Qof-by-Uibdo Xfer(QC): 3 PT Plan Problem List Problem List: Activity Tolerance, Functional Strength, Safety, Balance, Gait, Transfer, Bed Mobility, ROM Treatment/Plan Treatment Plan: Continue Plan of Care Treatment Plan: Bed Mobility, Education, Functional Activity Ezra, Functional Strength, Gait, Safety, Therapeutic Exercise, Transfers Treatment Duration: Dec 18, 2021 Frequency: 5 times per week (due to current status and unable to actively participate with skilled PT) Estimated Hrs Per Day: .25 hour per day Safety Risks/Education Patient Education: Correct Positioning, Safety Issues Teaching Recipient: Patient Teaching Methods: Demonstration, Discussion Response to Teaching: Reinforcement Needed Time/GCodes Time In: 1103 Time Out: 1115 Total Billed Treatment Time: 12 Total Billed Treatment 1 visit FA MARCO FLOWER PT Dec 01, 2021 11:30
--- NOTE | 2021-12-01 11:40 | Occupational Ther Daily Note ---
OT Current Status-Daily Note Subjective Pt more alert today though is continuing to display confusion when following directions. Pt agrees to therapy. Son present in room. Mental Status/Objective Patient Orientation: Person, Place, Time, Situation Attachments: IV ADL-Treatment Therapy Code Descriptions/Definitions Functional [place] Measure: 0=Not Assessed/NA 4=Minimal Assistance 1=Total Assistance 5=Supervision or Setup 2=Maximal Assistance 6=Modified [place] 3=Moderate Assistance 7=Complete IndependenceSCALE: Activities may be completed with or without assistive devices. 3-Ommazgtjlk-znccwdp completes the activity by him/herself with no assistance from a helper. 5-Set-up or Clean-up Assistance-helper sets up or cleans up; patient completes activity. [place] assists only prior to or following the activity. 4-Supervision or Touching Assistance-helper provides verbal cues and/or touching/steadying and/or contact guard assistance as patient completes activity. Assistance may be provided throughout the activity or intermittently. 3-Partial/Moderate Assistance-helper does LESS THAN HALF the effort. [place] lifts, holds or supports trunk or limbs, but provides less than half the effort. 2-Substantial/Maximal Assistance-helper does MORE THAN HALF the effort. [place] lifts or holds trunk or limbs and provides more than half the effort. 0-Uxtauentr-jikoyy does ALL the effort. Patient does none of the effort to complete the activity. Or, the assistance of 2 or more helpers is required for the patient to complete the activity. If activity was not attempted, code reason: 7-Patient Refused. 9-Not Applicable-not attempted and the patient did not perform the activity before the current illness, exacerbation or injury. 10-Not Attempted due to Environmental Limitations-(lack of equipment, weather restraints, etc.). 88-Not Attempted due to Medical Conditions or Safety Concerns. Other Treatment Pt did attempt to assist with rolling to side and sitting up on EOB, continues to need 2-3 people for bed mobility. While sitting on EOB, pt could not maintain upright position, either had to lean toward L side or back. Pt stated that her legs and buttocks hurt, this was why she couldn't sit up. Pt then began to lay back down on own. Pt then completed 2 B UE exercises with hand over hand assist due to pt unable to follow verbal/gestural instructions. Pt assist to scoot self up in bed with foot of bed inclined. After session, pt lying in bed with call light/phone in reach. All needs met in room. OT [facility] Goals [facility] Goals Time Frame: Dec 20, 2021 Oral Hygiene (QC): 4 Toileting Hygiene (QC): 3 Shower/Bathe Self (QC): 3 Upper Body Dressing (QC): 3 Lower Body Dressing (QC): 3 Additional Goals: 1-Demonstrate ADL Tasks, 2-Verbalize Understanding, 3- ImproveStrength/Ezra 1=Demonstrate adherence to instructed precautions during ADL tasks. 2=Patient will verbalize/demonstrate understanding of assistive devices/modifications for ADL. 3=Patient will improve strength/tolerance for activity to enable patient to perform ADL's. OT Education/Plan Problem List/Assessment Assessment: Decreased Activ Tolerance, Decreased Safety Aware, Decreased UE Strength, Dependent Transfers, Edema, Impaired Bed Mobility, Impaired Cognition, Impaired Coordination, Impaired Funct Balance, Impaired Self-Care Skills Discharge Recommendations Plan/Recommendations: Continue POC Treatment Plan/Plan of Care Patient would benefit from OT for education, treatment and training to promote independence in ADL's, mobility, safety and/or upper extremity function for ADL's. Plan of Care: ADL Retraining, Caregiver Training, Cognitive Retraining, Functional Mobility, Group Exercise/Act as Ind, UE Funct Exercise/Act, W/C Management Training Treatment Duration: Dec 20, 2021 Frequency: 3 times per week (3-5x/week) Estimated Hrs Per Day: .25 hour per day Rehab Potential: Guarded Time/GCodes Start Time: 11:05 Stop Time: 11:15 Total Time Billed (hr/min): 10 Billed Treatment Time 1 visit-FA 1 (10 min) JACI PARRA Dec 01, 2021 11:40
--- NOTE | 2021-12-01 12:20 | Progress Note ---
Subjective Subjective/Events-last exam Pt states she is feeling good. She has two sons in the room with her and they note she is way better than yesterday. She is able to have a conversation with me this morning and knows that she is in the hospital in [place] and is able to read the date off the board in her room when asked the date. Objective Exam Last Set of Vital Signs Vital Signs Date Time Temp Pulse Resp B/P (MAP) Pulse Ox O2 Delivery O2 Flow Rate FiO2 12/01/21 11:25 36.8 78 20 141/74 (96) 92 Room Air 12/01/21 08:00 2.00 11/30/21 07:13 21 Capillary Refill : Less Than 3 Seconds I&O Intake and Output 12/01/21 00:00 Intake Total 940 ml Output Total 5140 ml Balance -4200 ml Intake Oral 940 ml Output Urine Total 5140 ml # Bowel Movements 3 General: Alert, No Acute Distress Lungs: Clear to Auscultation, Normal Air Movement Heart: Regular Rate Abdomen: Normal Bowel Sounds, Soft Extremities: Other (bilateral leg edema and erythema, greater on left over lower [place]) Neuro: Normal Speech, Other (orineted to self, "hospital" and able to read date) Psych/Mental Status: Mood NL Results/Procedures Lab Laboratory Tests 11/30/21 20:22: Glucometer 223H 12/01/21 05:05: White Blood Count 6.6, Red Blood Count 3.23L, Hemoglobin 11.1L, Hematocrit 33L, Mean Corpuscular Volume 103H, Mean Corpuscular Hemoglobin 34, Mean Corpuscular Hemoglobin Concent 34, Red Cell Distribution Width 13.3, Platelet Count 236, Mean Platelet Volume 9.4, Immature Granulocyte % (Auto) 2, Neutrophils (%) (Auto) 70, Lymphocytes (%) (Auto) 19, Monocytes (%) (Auto) 6, Eosinophils (%) (Auto) 3, Basophils (%) (Auto) 0, Neutrophils # (Auto) 4.7, Lymphocytes # (Auto) 1.3, Monocytes # (Auto) 0.4, Eosinophils # (Auto) 0.2, Basophils # (Auto) 0.0, Immature Granulocyte # (Auto) 0.1, Sodium Level 138, Potassium Level 3.7, Chloride Level 102, Carbon Dioxide Level 25, Anion Gap 11, Blood Urea Nitrogen 20H, Creatinine 0.83, Estimat Glomerular Filtration Rate 78, BUN/Creatinine Ratio 24, Glucose Level 179H, Calcium Level 8.6, Corrected Calcium 9.6, Magnesium Level 1.4L, Total Bilirubin 0.5, Aspartate Amino Transf (AST/SGOT) 23, Alanine Aminotransferase (ALT/SGPT) 32, Alkaline Phosphatase 82, Total Protein 6.2L, Albumin 2.7L 12/01/21 05:43: Glucometer 175H 12/01/21 10:55: Glucometer 283H Microbiology 11/24/21 Urine Culture - Final, Complete Klebsiella aerogenes Klebsiella pneumoniae 11/24/21 Blood Culture - Final, Complete No growth 11/24/21 MRSA Screen - Final, Complete MRSA not isolated Assessment/Plan Assessment/Plan Assessment & Plan 1) Sepsis 11/27/2021: Blood culture growing staph aureus methicillin sensitive urine growing Klebsiella pneumonia and Klebsiella aerogenes, discontinued vancomycin, continued cefepime. 2) DM monitor with POC glucose continue insulin therapy 3) Cellulitis Cefepime 4)COPD start duoneb therapy continue O2 as needed 5) Altered mental status 11/29- son concerned about possible stroke, states for last 2 days she has been different than before, this pm when nurse called me, her mental status sounded worse than this morning, stroke eval done and she does have elevated NIH score but this seems to be related to global confusion and pain in legs, CT head remains with only microvascular changes noted, same as earlier in admission. Even if stroke seen, not a TPA candidate due to timing. Suspect metabolic encephalopathy from sepsis along with possibly some effect of oxycodone. No serious electrolyte abnormalities seen and her vitals are not markedly abnormal either. Attempted to call son this evening to update, no answer. 11/30- Talked to son today while in patient room, discussed lab results, vital signs and CT without clear explanation besides possibly delirium secondary to infection which is being treated. Discussed obtaining MRI although not highly suspicious there will be findings to explain status, however, she is too large for the MRI. 12/01- markedly improved, near baseline 6) HTN- resume home losartan 7) CAD- resume home aspirin and atorvastatin and furosemide 8) History of CVA- with reported residual right side weakness per clinic record, on rivaroxaban at home for unclear reason, resume for now 9) Peripheral neuropathy- resume home gabapentin 10) Recurrent UTIs/urinary problems- referred outpatient prior to admit to Dr. Meadows, holding anticholinergic given altered mental status 11) Fall at home- pelvis and right hip xray okay 12) Debility- PT/OT, likely to need nursing facility on d/c 13) DVT prophylaxis- rivaroxaban Clinical Quality Measures DVT/VTE Risk/Contraindication: Contraindications-Mechi: Other *list below* Other: leg cellulitis CORNELIA MARQUEZ MD Dec 01, 2021 12:20
[2021-12-01] MEDS: MICONAZOLE 2% POWDER (DESENEX AF) 90 GM TOP SCH (20:28)
[2021-12-01] MEDS: FAMOTIDINE 20 MG (PEPCID) TABLET PO SCH (20:28)
[2021-12-02 03:45] VITALS: BP 146/82
[2021-12-02 06:19] LABS: BASOPHILS # (AUTO) 0.1 10^3/uL (0.0-0.1); BASOPHILS % (AUTO) 1 % (0-10); EOSINOPHILS # (AUTO) 0.2 10^3/uL (0.0-0.3); EOSINOPHILS % (AUTO) 2 % (0-10); HEMATOCRIT 35 % (35-52); HEMOGLOBIN 11.6 g/dL (11.5-16.0); LYMPHOCYTES # (AUTO) 1.8 10^3/uL (1.0-4.0); LYMPHOCYTES % (AUTO) 20 % (12-44); MEAN CORPUSCULAR HEMOGLOBIN 34 pg (25-34); MEAN CORPUSCULAR HGB CONC 33 g/dL (32-36); MEAN CORPUSCULAR VOLUME 104 fL (80-99); MEAN PLATELET VOLUME 9.6 fL (9.0-12.2); MONOCYTES # (AUTO) 0.5 10^3/uL (0.0-1.0); MONOCYTES % (AUTO) 6 % (0-12); NEUTROPHILS # (AUTO) 6.1 10^3/uL (1.8-7.8); NEUTROPHILS % (AUTO) 70 % (42-75); PLATELET COUNT 294 10^3/uL (130-400); WHITE BLOOD COUNT 8.7 10^3/uL (4.3-11.0)
[2021-12-02 06:27] LABS: ALBUMIN 2.9 GM/DL (3.2-4.5); POTASSIUM 3.4 MMOL/L (3.6-5.0)
[2021-12-02 06:28] LABS: CALCIUM 8.6 MG/DL (8.5-10.1)
[2021-12-02 06:29] LABS: TOTAL PROTEIN 6.5 GM/DL (6.4-8.2)
[2021-12-02 06:31] LABS: BILIRUBIN,TOTAL 0.5 MG/DL (0.1-1.0)
[2021-12-02 06:33] LABS: CREATININE SERUM 0.97 MG/DL (0.60-1.30)
[2021-12-02 06:36] LABS: MAGNESIUM 1.5 MG/DL (1.6-2.4)
[2021-12-02] MEDS: inSUlin ASPART (NovoLOG) 1 UNIT/0.01 ML (CHARGE PER UNIT) SC SCH ×2 (06:36→11:42)
[2021-12-02] MEDS ORDERED: metFORMIN 500 MG (GLUCOPHAGE) TAB PO SCH (08:00)
[2021-12-02 08:41] VITALS: BP 144/85
[2021-12-02] MEDS: ASPIRIN E.C. 81 MG (ECOTRIN) TAB PO SCH (09:18)
[2021-12-02] MEDS: RIVAROXABAN 10 MG TABLET (XARELTO) PO SCH (09:18)
[2021-12-02] MEDS: FUROSEMIDE 40 MG (LASIX) TAB PO SCH (09:18)
[2021-12-02] MEDS: LOSARTAN 50 MG (COZAAR) TAB PO SCH (09:18)
[2021-12-02] MEDS: MICONAZOLE 2% POWDER (DESENEX AF) 90 GM TOP SCH (09:19)
[2021-12-02] MEDS: DOCUSATE SODIUM 100 MG (COLACE) CAP PO SCH (09:22)
--- NOTE | 2021-12-02 09:37 | Physical Therapy Daily Note ---
PT Daily Note-Current Subjective Patient agrees to PT. She is more alert and oriented. Mental Status Patient Orientation: Person, Time, Situation Attachments: Jones Catheter, IV Transfers SCALE: Activities may be completed with or without assistive devices. 1-Ydljwwrpsc-elvvpfc completes the activity by him/herself with no assistance from a helper. 5-Set-up or Clean-up Assistance-helper sets up or cleans up; patient completes activity. [place] assists only prior to or following the activity. 4-Supervision or Touching Assistance-helper provides verbal cues and/or touching/steadying and/or contact guard assistance as patient completes activity. Assistance may be provided throughout the activity or intermittently. 3-Partial/Moderate Assistance-helper does LESS THAN HALF the effort. [place] lifts, holds or supports trunk or limbs, but provides less than half the effort. 2-Substantial/Maximal Assistance-helper does MORE THAN HALF the effort. [place] lifts or holds trunk or limbs and provides more than half the effort. 4-Xctmvkdzd-ybudiv does ALL the effort. Patient does none of the effort to complete the activity. Or, the assistance of 2 or more helpers is required for the patient to complete the activity. If activity was not attempted, code reason: 7-Patient Refused. 9-Not Applicable-not attempted and the patient did not perform the activity before the current illness, exacerbation or injury. 10-Not Attempted due to Environmental Limitations-(lack of equipment, weather restraints, etc.). 88-Not Attempted due to Medical Conditions or Safety Concerns. Lying to Sitting/Side of Bed(Q: 3 Sit to Stand (QC): 3 Chair/Cck-df-Lzovf Xfer(QC): 3 Gait Training Distance: 10' Walk 10 feet (QC): 4 Gait Assistive Device: FWW Assessment Patient up in recliner. Improved on this date. Patient requests a shower. Nursing notified. PT to continue to increase activity as tolerated by patient. PT Mcc Goals Mcc Goals PT [place]orgue Technician Goals Time Frame: Dec 18, 2021 Roll Left & Right (QC): 3 Sit to Lying (QC): 3 Lying-Sitting on Side/Bed(QC): 3 Sit to Stand (QC): 3 Chair/Rbc-pc-Xrehv Xfer(QC): 3 PT Plan Treatment/Plan Treatment Plan: Continue Plan of Care Treatment Plan: Bed Mobility, Education, Functional Activity Ezra, Functional Strength, Gait, Safety, Therapeutic Exercise, Transfers Treatment Duration: Dec 18, 2021 Frequency: 5 times per week (due to current status and unable to actively participate with skilled PT) Estimated Hrs Per Day: .25 hour per day Time/GCodes Time In: 831 Time Out: 845 Total Billed Treatment Time: 14 Total Billed Treatment 1 visit FA 14 min RENATA RYAN PT Dec 02, 2021 09:37
--- NOTE | 2021-12-02 09:56 | Occupational Ther Daily Note ---
OT Current Status-Daily Note Subjective Pt more alert today, lying in bed eating breakfast. Pt agrees to therapy. Mental Status/Objective Patient Orientation: Person, Place, Time Attachments: [place] Catheter, IV, Oxygen ADL-Treatment Therapy Code Descriptions/Definitions Functional [place] Measure: 0=Not Assessed/NA 4=Minimal Assistance 1=Total Assistance 5=Supervision or Setup 2=Maximal Assistance 6=Modified [place] 3=Moderate Assistance 7=Complete IndependenceSCALE: Activities may be completed with or without assistive devices. 8-Tvakeryytw-zvkndyi completes the activity by him/herself with no assistance from a helper. 5-Set-up or Clean-up Assistance-helper sets up or cleans up; patient completes activity. [place] assists only prior to or following the activity. 4-Supervision or Touching Assistance-helper provides verbal cues and/or touching/steadying and/or contact guard assistance as patient completes activity. Assistance may be provided throughout the activity or intermittently. 3-Partial/Moderate Assistance-helper does LESS THAN HALF the effort. [place] lifts, holds or supports trunk or limbs, but provides less than half the effort. 2-Substantial/Maximal Assistance-helper does MORE THAN HALF the effort. [place] lifts or holds trunk or limbs and provides more than half the effort. 7-Kyktoyfyj-mcxtri does ALL the effort. Patient does none of the effort to complete the activity. Or, the assistance of 2 or more helpers is required for the patient to complete the activity. If activity was not attempted, code reason: 7-Patient Refused. 9-Not Applicable-not attempted and the patient did not perform the activity before the current illness, exacerbation or injury. 10-Not Attempted due to Environmental Limitations-(lack of equipment, weather restraints, etc.). 88-Not Attempted due to Medical Conditions or Safety Concerns. Other Treatment Min A for supine to EOB. Pt stated that she wanted to get into recliner. CGA to min A for sit to stand and transfer using FWW from EOB to recliner. Assist x2 to scoot back into recliner. After therapy, pt sitting in recliner with call light and phone in reach. Nrsg made aware that pt wants shower. All needs met. OT [facility] Goals Hand Candy Cutter Goals Time Frame: Dec 20, 2021 Oral Hygiene (QC): 4 Toileting Hygiene (QC): 3 Shower/Bathe Self (QC): 3 Upper Body Dressing (QC): 3 Lower Body Dressing (QC): 3 Additional Goals: 1-Demonstrate ADL Tasks, 2-Verbalize Understanding, 3- ImproveStrength/Ezra 1=Demonstrate adherence to instructed precautions during ADL tasks. 2=Patient will verbalize/demonstrate understanding of assistive devices/modifications for ADL. 3=Patient will improve strength/tolerance for activity to enable patient to perform ADL's. OT Education/Plan Problem List/Assessment Assessment: Decreased Activ Tolerance, Decreased Safety Aware, Decreased UE Strength, Impaired Bed Mobility, Impaired Cognition, Impaired Self-Care Skills, Restricted Funct UE ROM Discharge Recommendations Plan/Recommendations: Continue POC Treatment Plan/Plan of Care Patient would benefit from OT for education, treatment and training to promote independence in ADL's, mobility, safety and/or upper extremity function for ADL's. Plan of Care: ADL Retraining, Caregiver Training, Cognitive Retraining, Functional Mobility, Group Exercise/Act as Ind, UE Funct Exercise/Act, W/C Management Training Treatment Duration: Dec 20, 2021 Frequency: 3 times per week (3-5x/week) Estimated Hrs Per Day: .25 hour per day Rehab Potential: Guarded Time/GCodes Start Time: 08:30 Stop Time: 08:46 Total Time Billed (hr/min): 16 Billed Treatment Time 1 visit-FA 1 (16 min) JACI PARRA Dec 02, 2021 09:56
[2021-12-02] MEDS: RT-ALBUTEROL/IPRATROPIUM 3 ML (DUONEB) VIAL INH SCH (09:59)
[2021-12-02 12:08] VITALS: BP 127/68
[2021-12-02] MEDS ORDERED: CEFD300C3 PO (12:32)
[2021-12-02] MEDS ORDERED: HYDR25TA4 PO (12:32)
--- NOTE | 2021-12-02 13:07 | Discharge Inst-Skilled Nursing ---
Discharge Inst-Skilled NF Patient Instructions Patient Problems: 1) Sepsis Blood culture growing staph aureus methicillin sensitive urine growing Klebsiella pneumonia and Klebsiella aerogenes, discontinued vancomycin, continued cefepime for 5 days, discharged on cefdinir for 5 further days. 2) DM 3) Cellulitis 4)COPD 5) Altered mental status 12/01- markedly improved, near baseline 6) HTN 7) CAD 8) History of CVA 9) Peripheral neuropathy 10) Recurrent UTIs/urinary problems 11) Fall at home- pelvis and right hip xray okay 12) Debility Consult/Follow Up/Orders Follow up appt.: Follow up with primary provider within a week of discharge. Follow up with Dr. Meadows as previously referred. Skilled NF Admit to: Certifications SNF I certify that SNF services are required to be given on an inpatient basis because of the above named patient's need for mcc care on a continuing basis for the conditions(s) for which he/she was receiving inpatient hospital services prior to his/her transfer to the SNF. [facility] Facility Order: Nursing Services, Running Specialist-Evaluate & Treat, Physical Therapy-Evaluate & Treat, Wound Care-Eval/Treat Oxygen Delivery Method: Room Air Discharge Diet: ADA Diet Daily Activity as Tolerated: Yes Discharge Medications New, Converted or Re-Newed RX: Transmitted to Pharmacy New Medications: Cefdinir (Cefdinir) 300 Mg Capsule 300 MG PO BID for 5 Days, #10 CAP Hydrochlorothiazide (Hydrochlorothiazide) 25 Mg Tablet 25 MG PO DAILY, #30 TAB 0 Refills Continued Medications: Acetaminophen (Tylenol Extra Strength) 500 Mg Tablet 1000 MG PO Q8H PRN for PAIN-MILD (1-4), TAB TAKES 2 (500MG) TABS Amitriptyline HCl (Amitriptyline HCl) 50 Mg Tablet 50 MG PO DAILY Aspirin (Aspirin EC) 81 Mg Tablet.dr 81 MG PO DAILY, TAB Atorvastatin Calcium (Atorvastatin Calcium) 40 Mg Tablet 40 MG PO HS Fluoxetine HCl (Fluoxetine HCl) 40 Mg Capsule 40 MG PO BID, CAP Furosemide (Furosemide) 40 Mg Tablet 40 MG PO DAILY Gabapentin (Gabapentin) 600 Mg Tablet 600 MG PO TID PRN for NERVE PAIN, TAB Ibuprofen (Ibuprofen) 800 Mg Tablet 800 MG PO TID PRN for PAIN-MILD (1-4), TAB Losartan Potassium (Losartan Potassium) 50 Mg Tablet 50 MG PO DAILY, TAB Metformin HCl (Metformin HCl) 1,000 Mg Tablet 1000 MG PO BID WITH MEALS, TAB Oxybutynin Chloride (Oxybutynin Chloride) 5 Mg Tablet 5 MG PO TID PRN for OVERACTIVE BLADDER, TAB Rivaroxaban (Xarelto) 10 Mg Tablet 10 MG PO DAILY Cornelia Lewis Dec 02, 2021 13:04 CORNELIA LEWIS MD Dec 02, 2021 13:07
--- NOTE | 2021-12-02 13:09 | Discharge Summary ---
Discharge Summary Hospital Course Hospital Course Date of Admission: Nov 24, 2021 at 14:15 Admission Diagnosis : Family Physician/Provider: Andrew Celis MD Date of Discharge: 12/02/21 Discharge Diagnosis: 1) Sepsis Blood culture growing staph aureus methicillin sensitive urine growing Klebsiella pneumonia and Klebsiella aerogenes, discontinued vancomycin, continued cefepime, discharged on cefdinir. 2) DM 3) Cellulitis 4)COPD 5) Altered mental status 11/29- son concerned about possible stroke, states for last 2 days she has b een different than before, this pm when nurse called me, her mental status sounded worse than this morning, stroke eval done and she does have elevated NIH score but this seems to be related to global confusion and pain in legs, CT head remains with only microvascular changes noted, same as earlier in admission. Even if stroke seen, not a TPA candidate due to timing. Suspect metabolic encephalopathy from sepsis along with possibly some effect of oxycodone. No serious electrolyte abnormalities seen and her vitals are not markedly abnormal either. Attempted to call son this evening to update, no answer. 11/30- Talked to son today while in patient room, discussed lab results, vital signs and CT without clear explanation besides possibly delirium secondary to in fection which is being treated. Discussed obtaining MRI although not highly suspicious there will be findings to explain status, however, she is too large for the MRI. 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 Meadows, holding anticholinergic given altered mental status 11) Fall at home- pelvis and right hip xray okay 12) Debility- PT/OT, discharged to [facility] stay Hospital Course: See discharge diagnoses Labs and Pending Lab Test: Laboratory Tests 12/01/21 15:28: Glucometer 260H 12/01/21 20:52: Glucometer 313H 12/02/21 05:30: Glucometer 204H 12/02/21 05:49: White Blood Count 8.7, Red Blood Count 3.37L, Hemoglobin 11.6, Hematocrit 35, Mean Corpuscular Volume 104H, Mean Corpuscular Hemoglobin 34, Mean Corpuscular Hemoglobin Concent 33, Red Cell Distribution Width 13.4, Platelet Count 294, Mean Platelet Volume 9.6, Immature Granulocyte % (Auto) 1, Neutrophils (%) (Auto) 70, Lymphocytes (%) (Auto) 20, Monocytes (%) (Auto) 6, Eosinophils (%) (Auto) 2, Basophils (%) (Auto) 1, Neutrophils # (Auto) 6.1, Lymphocytes # (Auto) 1.8, Monocytes # (Auto) 0.5, Eosinophils # (Auto) 0.2, Basophils # (Auto) 0.1, Immature Granulocyte # (Auto) 0.1, Sodium Level 135, Potassium Level 3.4L, Chloride Level 98, Carbon Dioxide Level 25, Anion Gap 12, Blood Urea Nitrogen 25H, Creatinine 0.97, Estimat Glomerular Filtration Rate 64, BUN/Creatinine Ratio 26, Glucose Level 211H, Calcium Level 8.6, Corrected Calcium 9.5, Magnesium Level 1.5L, Total Bilirubin 0.5, Aspartate Amino Transf (AST/SGOT) 25, Alanine Aminotransferase (ALT/SGPT) 34, Alkaline Phosphatase 92, Total Protein 6.5, Albumin 2.9L 12/02/21 11:24: Glucometer 277H Microbiology 11/24/21 Urine Culture - Final, Complete Klebsiella aerogenes Klebsiella pneumoniae 11/24/21 Blood Culture - Final, Complete No growth 11/24/21 MRSA Screen - Final, Complete MRSA not isolated Home Meds Active Cefdinir 300 Mg Capsule 300 Mg PO BID 5 Days Hydrochlorothiazide 25 Mg Tablet 25 Mg PO DAILY Reported Tylenol Extra Strength (Acetaminophen) 500 Mg Tablet 1,000 Mg PO Q8H PRN TAKES 2 (500MG) TABS Amitriptyline HCl 50 Mg Tablet 50 Mg PO DAILY Furosemide 40 Mg Tablet 40 Mg PO DAILY Xarelto (Rivaroxaban) 10 Mg Tablet 10 Mg PO DAILY Atorvastatin Calcium 40 Mg Tablet 40 Mg PO HS Aspirin EC (Aspirin) 81 Mg Tablet.dr 81 Mg PO DAILY Fluoxetine HCl 40 Mg Capsule 40 Mg PO BID Ibuprofen 800 Mg Tablet 800 Mg PO TID PRN Gabapentin 600 Mg Tablet 600 Mg PO TID PRN Metformin HCl 1,000 Mg Tablet 1,000 Mg PO BID WITH MEALS Losartan Potassium 50 Mg Tablet 50 Mg PO DAILY Oxybutynin Chloride 5 Mg Tablet 5 Mg PO TID PRN Assessment/Pt DC Instructions Follow up with primary provider within a week of discharge. Discharge Diet: ADA Diet Activity as Tolerated: Yes Discharge Physical Examination Allergies: Uncoded Allergies: IV CONTRAST (Adverse Reaction, Mild, HIVES, 09/17/18) General Appearance: Obese Respiratory: Lungs Clear, Normal Breath Sounds Cardiovascular: Regular Rate, Rhythm Extremity: Other (Small amount of pedal edema, bilateral erythema with left greater than right, but significantly improved from prior, dark areas where blistering had occurred and now appear to be resolving over left whelan) Neurologic/Psychiatric: Alert, Normal Mood/Affect Clinical Quality Measures DVT/VTE Risk/Contraindication: Contraindications-Mechi: Other *list below* Other: leg cellulitis CORNELIA MARQUEZ MD Dec 02, 2021 13:09
[2021-12-02 15:00] VITALS: BP 127/68
== END 2021-12-02 15:00 | DRG 872 ==
LOC: EDUNIT# 08:37 → ER FS 08:38 → ICU 14:15 → CSD 11-25 15:02 → 4TH 11-26 16:19
PROVIDERS: ADMIT Internal Medicine; ATTEND Family Medicine
DX: A41.01 Sepsis due to Methicillin susceptible Staphylococcus aureus (principal); N39.0 Urinary tract infection, site not specified; L03.116 Cellulitis of left lower limb; L03.115 Cellulitis of right lower limb; Z68.43 Body mass index [BMI] 50.0-59.9, adult; N17.9 Acute kidney failure, unspecified; I69.351 Hemiplegia and hemiparesis following cerebral infarction affecting right dominant side; M62.82 Rhabdomyolysis; Z20.822 Contact with and (suspected) exposure to COVID-19; R65.20 Severe sepsis without septic shock; E86.9 Volume depletion, unspecified; N28.9 Disorder of kidney and ureter, unspecified; E66.01 Morbid (severe) obesity due to excess calories; J44.9 Chronic obstructive pulmonary disease, unspecified; I10 Essential (primary) hypertension; E78.00 Pure hypercholesterolemia, unspecified; I25.10 Atherosclerotic heart disease of native coronary artery without angina pectoris; E11.42 Type 2 diabetes mellitus with diabetic polyneuropathy; K59.00 Constipation, unspecified; I87.2 Venous insufficiency (chronic) (peripheral); Z79.84 Long term (current) use of oral hypoglycemic drugs; Z28.310 Unvaccinated for COVID-19; Z91.041 Radiographic dye allergy status; Z79.01 Long term (current) use of anticoagulants; Z79.82 Long term (current) use of aspirin; Z83.3 Family history of diabetes mellitus; Z82.49 Family history of ischemic heart disease and other diseases of the circulatory system
CPT/HCPCS: 36415; 51702; 70450; 71045; 73502; 80053; 80202; 81000; 82550; 82805; 82947; 83605; 83735; 83880; 84100; 84145; 84484; 85007; 85025; 85027; 87040; 87077; 87081; 87088; 87186; 87636; 93005; 94640; 94760; 96374; 96375

== ENCOUNTER 2022-01-24 08:09 | Emergency (ER) | payer MEDICAID ==
[~2022-01-24] VITALS: Ht 167.7 cm; Wt 118.8 kg
--- NOTE | 2022-01-24 08:25 | ED Fall/Injury ---
General Stated Complaint: SLIPPED/FELL Source: patient Exam Limitations: no limitations History of Present Illness Date Seen by Provider: Jan 24, 2022 Time Seen by Provider: 08:10 Initial Comments 66-year-old female with past medical history of diabetes, hypertension, hyperlipidemia, CAD, and chronic right leg wound coming in via EMS from home after she fell. She says she was try to get out of bed, slipped, landed on her back. She is complaining of neck and back pain at this time which is moderate, throbbing, better with rest, worse with movement. Does not take any blood thinners at this time. [facility], and family believes that that was premature and that she requires more care at this time. The patient is stating that she would like to go back home. She was in the [facility] for roughly 3 weeks after her right thigh wound was debrided at [facility]. She is otherwise denying any fever, chest pain, shortness of breath, abdominal pain, nausea, vomiting, diarrhea, new focal weakness or numbness, or any other concerns. She has had a previous stroke on the right side but she states she is at her baseline. She does endorse a productive cough. Allergies and Home Medications Allergies Uncoded Allergies: IV CONTRAST (Adverse Reaction, Mild, HIVES, 09/17/18) Patient Home Medication List Home Medication List Reviewed: Yes Acetaminophen (Tylenol Extra Strength) 500 Mg Tablet, 1,000 MG PO Q8H PRN for PAIN-MILD (1-4), (Reported) Entered as Reported by: FERNANDO ARELLANO on 11/29/21 1408 Amitriptyline HCl (Amitriptyline HCl) 50 Mg Tablet, 50 MG PO DAILY, (Reported) Entered as Reported by: FERNANDO ARELLANO on 11/29/21 1405 Aspirin (Aspirin EC) 81 Mg Tablet.dr, 81 MG PO DAILY, (Reported) Entered as Reported by: NERIS PRIETO on 10/26/20 0851 Atorvastatin Calcium (Atorvastatin Calcium) 40 Mg Tablet, 40 MG PO HS, (Reported) Entered as Reported by: FERNANDO ARELLANO on 11/29/21 1403 Cefdinir (Cefdinir) 300 Mg Capsule, 300 MG PO BID Prescribed by: CORNELIA MARQUEZ on 12/02/21 1232 Fluoxetine HCl (Fluoxetine HCl) 40 Mg Capsule, 40 MG PO BID, (Reported) Entered as Reported by: NERIS PRIETO on 10/26/20 0851 Furosemide (Furosemide) 40 Mg Tablet, 40 MG PO DAILY, (Reported) Entered as Reported by: FENRANDO ARELLANO on 11/29/21 1404 Gabapentin (Gabapentin) 600 Mg Tablet, 600 MG PO TID PRN for NERVE PAIN, (Reported) Entered as Reported by: MINESH CANALES on 09/17/181846 Hydrochlorothiazide (Hydrochlorothiazide) 25 Mg Tablet, 25 MG PO DAILY Prescribed by: CORNELIA MARQUEZ on 12/02/21 1232 Ibuprofen (Ibuprofen) 800 Mg Tablet, 800 MG PO TID PRN for PAIN-MILD (1-4), (Reported) Entered as Reported by: SATCIE BERNAL on 05/15/19 1015 Losartan Potassium (Losartan Potassium) 50 Mg Tablet, 50 MG PO DAILY, (Reported) Entered as Reported by: MINESH CANALES on 09/17/181846 Metformin HCl (Metformin HCl) 1,000 Mg Tablet, 1,000 MG PO BID WITH MEALS, (Reported) Entered as Reported by: MINESH CANALES on 09/17/181846 Oxybutynin Chloride (Oxybutynin Chloride) 5 Mg Tablet, 5 MG PO TID PRN for OVERACTIVE BLADDER, (Reported) Entered as Reported by: MINESH CANALES on 09/17/181846 Rivaroxaban (Xarelto) 10 Mg Tablet, 10 MG PO DAILY, (Reported) Entered as Reported by: FERNANDO ARELLANO on 11/29/21 1404 Review of Systems Review of Systems Constitutional: No fever Ears, Nose, Mouth, Throat: no symptoms reported Respiratory: cough; No short of breath Cardiovascular: no symptoms reported Gastrointestinal: no symptoms reported Genitourinary: no symptoms reported Musculoskeletal: see HPI Skin: see HPI (wound to right leg) Psychiatric/Neurological: No Symptoms Reported All Other Systems Reviewed Negative Unless Noted: Yes Past Upnusta-Uvzkmu-Gbrtep Hx Patient Social History Substance use?: No Immunizations Up To Date Tetanus Booster (TDap): Unknown First/Initial COVID19 Vaccinat: NOT VACCINATED Second COVID19 Vaccination Get: NOT VACCINATED Third COVID19 Vaccination Date: NOT VACCINATED Seasonal Allergies Seasonal Allergies: No Past Medical History Surgery/Hospitalization HX: MRSA APPY C Section Bladder Surgery Stroke with R side residual Cataracts Dilation Urethral structurre HTN Cheek Cellulitis Surgeries: Yes (cystoscopies) Appendectomy, Bladder Surgery, Section, Gallbladder, Tonsillectomy Respiratory: Yes COPD Cardiac: Yes High Cholesterol, Hypertension Neurological: Yes Neuropathy, Stroke Genitourinary: Yes (urethral strictures) UTI-Chronic Gastrointestinal: Yes Gall Bladder Disease Musculoskeletal: Yes Arthritis, Chronic Back Pain Endocrine: Yes Diabetes, Insulin dep HEENT: Yes (decreasing vision with age and due to DM) Hearing Impairment: Denies Cancer: No Psychosocial: No Depression Integumentary: Yes (L ORBITAL CELLULITIS, 2018 CHEEK CELLULITIS) Recent Skin Changes Blood Disorders: No Family Medical History Patient reports no known family medical history. Diabetes, Hypertension Physical Exam Vital Signs Vital Signs - First Documented 01/24/22 08:09 Temp 36.0 Pulse 89 Resp 17 B/P (MAP) 116/53 (74) O2 Delivery Room Air Capillary Refill : Height, Weight, BMI Height: 5'6.00" Weight: 290lbs. 1.0oz. 131.999376qm; 54.86 BMI Method:Stated General Appearance: WD/WN, no apparent distress HEENT: PERRL/EOMI, normal ENT inspection, pharynx normal Neck: non-tender, full range of motion, supple, normal inspection Cardiovascular: regular rate, rhythm, no edema, no murmur Respiratory: chest non-tender, lungs clear, normal breath sounds, no respiratory distress, no accessory muscle use Gastrointestinal: normal bowel sounds, non tender, soft; No distended, No guarding, No rebound Back: normal inspection, no CVA tenderness, no vertebral tenderness (paravertebral tenderness in mid thoracic and upper lumbar region) Extremities: normal range of motion, non-tender, no calf tenderness, normal capillary refill, pedal edema, other (bruising to the left whelan, wound to right anterior thigh with healthy appearing pink granulation tissue, no drainage or cellulitis noted) Neurologic/Psychiatric: no motor/sensory deficits, alert, normal mood/affect Skin: normal color, warm/dry Lymphatic: no adenopathy Ventura Coma Score Best Eye Response: (4) Open Spontaneously Best Verbal Response: (5) Oriented Best Motor Response: (6) Obeys Commands Progress/Results/Core Measures Results/Orders Lab Results Laboratory Tests Test 01/24/22 08:31 Range/Units White Blood Count 6.3 4.3-11.0 10^3/uL Red Blood Count 2.81 L 3.80-5.11 10^6/uL Hemoglobin 9.4 L 11.5-16.0 g/dL Hematocrit 28 L 35-52 % Mean Corpuscular Volume 98 80-99 fL Mean Corpuscular Hemoglobin 34 25-34 pg Mean Corpuscular Hemoglobin Concent 34 32-36 g/dL Red Cell Distribution Width 11.9 10.0-14.5 % Platelet Count 136 130-400 10^3/uL Mean Platelet Volume 9.8 9.0-12.2 fL Immature Granulocyte % (Auto) 0 % Neutrophils (%) (Auto) 49 42-75 % Lymphocytes (%) (Auto) 37 12-44 % Monocytes (%) (Auto) 9 0-12 % Eosinophils (%) (Auto) 4 0-10 % Basophils (%) (Auto) 0 0-10 % Neutrophils # (Auto) 3.1 1.8-7.8 10^3/uL Lymphocytes # (Auto) 2.4 1.0-4.0 10^3/uL Monocytes # (Auto) 0.6 0.0-1.0 10^3/uL Eosinophils # (Auto) 0.3 0.0-0.3 10^3/uL Basophils # (Auto) 0.0 0.0-0.1 10^3/uL Immature Granulocyte # (Auto) 0.0 0.0-0.1 10^3/uL Prothrombin Time 14.0 12.2-14.7 SEC INR Comment 1.0 0.8-1.4 Activated Partial Thromboplast Time 23 L 24-35 SEC Sodium Level 132 L 135-145 MMOL/L Potassium Level 4.1 3.6-5.0 MMOL/L Chloride Level 90 L 98-107 MMOL/L Carbon Dioxide Level 21 21-32 MMOL/L Anion Gap 21 H 5-14 MMOL/L Blood Urea Nitrogen 61 H 7-18 MG/DL Creatinine 3.60 H 0.60-1.30 MG/DL Estimat Glomerular Filtration Rate 13 BUN/Creatinine Ratio 17 Glucose Level 178 H 70-105 MG/DL Calcium Level 8.0 L 8.5-10.1 MG/DL My Orders Orders - CRISTY MCKINLEY MD Basic Metabolic Panel (01/24/22 08:16) Cbc With Automated Diff (01/24/22 08:16) Protime With Inr (01/24/22 08:16) Partial Thromboplastin Time (01/24/22 08:16) Ct Head/Cervical Spine Wo (01/24/22 08:16) Ct Thoracic/Lumbar Spine Wo (01/24/22 08:16) Chest 1 View Ap/Pa Only (01/24/22 08:16) Acetaminophen Tablet (Tylenol Tablet) (01/24/22 08:30) Ct Pelvis Wo (01/24/22 08:40) Lactated Ringers (Lr 1000 Ml Iv Solution (01/24/22 10:17) Medications Given in ED Current Medications Medications Dose Ordered Sig/Suzi Route Start Time Stop Time Status Last Admin Dose Admin Acetaminophen 1,000 mg ONCE ONCE PO 01/24/22 08:30 01/24/22 08:31 DC 01/24/22 08:26 1,000 MG Vital Signs/I&O 01/24/22 08:09 Temp 36.0 Pulse 89 Resp 17 B/P (MAP) 116/53 (74) O2 Delivery Room Air Progress Progress Note : Progress Note 66-year-old female with above history coming in after mechanical fall at home. ABCs were intact, GCS 15, vital stable on presentation. Physical exam with some superficial bruising to the shins and back pain to palpation. CT head, cervical spine, thoracic spine, lumbar spine, and pelvis ordered. These are negative for any acute abnormalities including any fracture. Likely all just superficial bruising and discomfort. Given Tylenol for pain. Creatinine elevated from baseline, patient states hasn't been taking in as much at home given her debility. Given IV fluids here as this is likely prerenal. She is tolerating PO. The patient states she is too deconditioned to really walk or be able to get up at home. [facility] was just [facility] and is requesting to go back because she feels like it was possibly a little too soon to go home. We contacted [facility] and they will take the patient back under their care. Diagnostic Imaging Diagonstic Imaging: Xray (chest), CT (head, c/t/l spine, pelvis) Comments NAME: MORALES WALKER MED REC#: [id number] PT STATUS: REG ER : 1955 PHYSICIAN: CRISTY MCKINLEY MD ADMIT DATE: 01/24/22/ER FS Draft Date of Exam:01/24/22 CT HEAD/CERVICAL SPINE WO PROCEDURE: CT head and CT cervical spine without contrast. TECHNIQUE: Multiple contiguous axial images were obtained through the brain and cervical spine without the use of intravenous contrast. Sagittal and coronal reformations through the cervical spine were then performed. Auto Exposure Controls were utilized during the CT exam to meet ALARA standards for radiation dose reduction. INDICATION: Fall. Correlation is made prior head CT 11/29/2021. The ventricles and sulci are stable in appearance. Moderate periventricular low-attenuation is noted consistent with chronic microvascular ischemia. There is no sulcal effacement or midline shift. No acute intra-axial or extra-axial hemorrhage is detected. Cisterns are patent. Visualized paranasal sinuses are clear. IMPRESSION: Stable noncontrast head CT since exam from 11/29/2021. There are changes of chronic microvascular ischemia. No acute intracranial process is detected. CT CERVICAL SPINE: There is some straightening of the normal cervical lordotic curvature. Multilevel degenerative disc disease is noted with variable disc space narrowing and marginal spurring. No fractures are identified. Prevertebral tissues are within normal limits. Odontoid is intact. IMPRESSION: Cervical spondylosis. No acute bony abnormality is detected. Dictated on workstation # [id number] Dict: 01/24/22 0859 Trans: 01/24/22 0909 [facility] [id number] Interpreted by: GLENDY HAYES MD Electronically signed by: NAME: MORALES WALKER [facility] REC#: [id number] PT STATUS: REG ER : 1955 PHYSICIAN: CRISTY MCKINLEY MD ADMIT DATE: 01/24/22/ER FS Draft Date of Exam:01/24/22 CT THORACIC/LUMBAR SPINE WO PROCEDURE: CT thoracic and lumbar spine without contrast. TECHNIQUE: Multiple contiguous axial images were obtained through the thoracic and lumbar spine without the use of intravenous contrast. Sagittal and coronal reformations were then performed. All CT scans use one or more of the following dose optimizing techniques: automated exposure control, MA and/or KvP adjustment based on a patient size and exam type, or iterative reconstruction. INDICATION: Back pain. Trauma. Fall. COMPARISON: CT chest, abdomen, and pelvis without contrast on 08/05/2021. FINDINGS: Moderate right apex lumbar scoliosis. Alignment is otherwise normal. Vertebral body heights are preserved. No fractures. Benign hemangioma in the T9 vertebral body. Bridging anterior osteophytes throughout most of the midthoracic spine. Moderate to severe degenerative endplate changes in the lumbar spine are greatest at L3-L4. No high-grade spinal canal stenosis is evident by CT. Chronic left 8th and 9th posterior rib fractures. Visualized pelvis is intact. Mild atelectasis in the left lung base is partially visualized. Visualized paravertebral soft tissues are otherwise unremarkable. IMPRESSION: 1. No acute CT findings in the thoracic or lumbar spine. 2. Spondylotic changes are greatest at L3-L4. No high-grade spinal canal stenosis is evident by CT. Dictated on workstation # [id number] Dict: 01/24/22918 Trans: 01/24/22928 [id number] Interpreted by: MARANDA MCCLELLAND MD Electronically signed by: [facility] [place], [place] NAME: WALKER,MORALES A MED REC#: [id number] PT STATUS: REG ER : 1955 PHYSICIAN: CRISTY MCKINLEY MD ADMIT DATE: 01/24/22/ER FS Draft Date of Exam:01/24/22 CHEST 1 VIEW AP/PA ONLY INDICATION: Worsening cough AP view of chest is obtained with comparison made to study of 11/24/2021. FINDINGS: Heart size and pulmonary vascularity are within normal limits, and the lungs are clear, bilaterally. IMPRESSION: Unremarkable chest. Dictated on workstation # [id number] Dict: 01/24/22923 Trans: 01/24/22925 CV [id number] Interpreted by: DAYANA JOHNSON MD Electronically signed by: NAME: MORALES WALKER MED REC#: [id number] PT STATUS: REG ER : 1955 PHYSICIAN: CRISTY MCKINLEY MD ADMIT DATE: 01/24/22/ER FS Draft Date of Exam:01/24/22 CT PELVIS WO PROCEDURE: CT pelvis without contrast. TECHNIQUE: Multiple contiguous axial images were obtained through the pelvis without the use of intravenous contrast. Sagittal and coronal reformations were performed. Auto Exposure Controls were utilized during the CT exam to meet ALARA standards for radiation dose reduction. INDICATION: Fall. Correlation made with earlier radiographs as well as compared with CT performed 08/05/2021. FINDINGS: There are degenerative changes to the visualized lower lumbar spine. Sacrococcygeal segments appeared maintained and aligned anatomically no presacral or pre-coccygeal fluid collection. There is no intra or extraperitoneal pelvic hemorrhage. There are arthritic changes to the bilateral hips. The bilateral superior and inferior pubic rami . There are degenerative changes to the symphysis and SI joints without diastases. Proximal femurs are intact. No acetabular injury. No pelvic fracture apparent. No joint effusion or loose body apparent. IMPRESSION: Degenerative changes but no pelvic fracture, hemorrhage or dislocation. Dictated on workstation # [id number] Dict: 01/24/22919 Trans: 01/24/22927 CV [id number] Interpreted by: DAYANA RODRIGUEZ Electronically signed by: Departure Impression Primary Impression: Back pain Qualified Codes: M54.50 - Low back pain, unspecified Additional Impression: Fall Qualified Codes: W19.XXXA - Unspecified fall, initial encounter Disposition: 01 HOME, SELF-CARE (to [facility]) Condition: Stable Departure-Patient Inst. Decision time for Depature: 10:15 Referrals: KATIE HUDSON MD (PCP/Family) Primary Care Physician Patient Instructions: Preventing Falls ED Add. Discharge Instructions: The CT of your head, neck, T-spine, L-spine, and pelvis were all negative for any fractures or anything acute. Fortunately this is likely just bruising which will hurt. Take Tylenol as needed for pain, he can also try ice or heating pad. Follow-up with your regular doctor if things are not improving. CRISTY MCKINLEY MD Jan 24, 2022 08:25
[2022-01-24] MEDS ORDERED: ACETAMINOPHEN 500 MG TAB (TYLENOL) PO ONE (08:30)
[2022-01-24 08:48] LABS: BASOPHILS % (AUTO) 0 % (0-10); EOSINOPHILS # (AUTO) 0.3 10^3/uL (0.0-0.3); EOSINOPHILS % (AUTO) 4 % (0-10); HEMATOCRIT 28 % (35-52); HEMOGLOBIN 9.4 g/dL (11.5-16.0); LYMPHOCYTES # (AUTO) 2.4 10^3/uL (1.0-4.0); LYMPHOCYTES % (AUTO) 37 % (12-44); MEAN CORPUSCULAR HEMOGLOBIN 34 pg (25-34); MEAN CORPUSCULAR HGB CONC 34 g/dL (32-36); MEAN CORPUSCULAR VOLUME 98 fL (80-99); MEAN PLATELET VOLUME 9.8 fL (9.0-12.2); MONOCYTES # (AUTO) 0.6 10^3/uL (0.0-1.0); MONOCYTES % (AUTO) 9 % (0-12); NEUTROPHILS # (AUTO) 3.1 10^3/uL (1.8-7.8); NEUTROPHILS % (AUTO) 49 % (42-75); PLATELET COUNT 136 10^3/uL (130-400); WHITE BLOOD COUNT 6.3 10^3/uL (4.3-11.0)
--- NOTE | 2022-01-24 09:09 | Diagnostic Imaging Report ---
PROCEDURE: CT head and CT cervical spine without contrast. TECHNIQUE: Multiple contiguous axial images were obtained through the brain and cervical spine without the use of intravenous contrast. Sagittal and coronal reformations through the cervical spine were then performed. Auto Exposure Controls were utilized during the CT exam to meet ALARA standards for radiation dose reduction. INDICATION: Fall. Correlation is made prior head CT 11/29/2021. The ventricles and sulci are stable in appearance. Moderate periventricular low-attenuation is noted consistent with chronic microvascular ischemia. There is no sulcal effacement or midline shift. No acute intra-axial or extra-axial hemorrhage is detected. Cisterns are patent. Visualized paranasal sinuses are clear. IMPRESSION: Stable noncontrast head CT since exam from 11/29/2021. There are changes of chronic microvascular ischemia. No acute intracranial process is detected. CT CERVICAL SPINE: There is some straightening of the normal cervical lordotic curvature. Multilevel degenerative disc disease is noted with variable disc space narrowing and marginal spurring. No fractures are identified. Prevertebral tissues are within normal limits. Odontoid is intact. IMPRESSION: Cervical spondylosis. No acute bony abnormality is detected. Dictated by: Dictated on workstation # [id number]
--- NOTE | 2022-01-24 09:26 | Diagnostic Imaging Report ---
INDICATION: Worsening cough AP view of chest is obtained with comparison made to study of 11/24/2021. FINDINGS: Heart size and pulmonary vascularity are within normal limits, and the lungs are clear, bilaterally. IMPRESSION: Unremarkable chest. Dictated by: Dictated on workstation # [id number]
--- NOTE | 2022-01-24 09:28 | Diagnostic Imaging Report ---
PROCEDURE: CT pelvis without contrast. TECHNIQUE: Multiple contiguous axial images were obtained through the pelvis without the use of intravenous contrast. Sagittal and coronal reformations were performed. Auto Exposure Controls were utilized during the CT exam to meet ALARA standards for radiation dose reduction. INDICATION: Fall. Correlation made with earlier radiographs as well as compared with CT performed 08/05/2021. FINDINGS: There are degenerative changes to the visualized lower lumbar spine. Sacrococcygeal segments appeared maintained and aligned anatomically no presacral or pre-coccygeal fluid collection. There is no intra or extraperitoneal pelvic hemorrhage. There are arthritic changes to the bilateral hips. The bilateral superior and inferior pubic rami . There are degenerative changes to the symphysis and SI joints without diastases. Proximal femurs are intact. No acetabular injury. No pelvic fracture apparent. No joint effusion or loose body apparent. IMPRESSION: Degenerative changes but no pelvic fracture, hemorrhage or dislocation. Dictated by: Dictated on workstation # [id number]
--- NOTE | 2022-01-24 09:29 | Diagnostic Imaging Report ---
PROCEDURE: CT thoracic and lumbar spine without contrast. TECHNIQUE: Multiple contiguous axial images were obtained through the thoracic and lumbar spine without the use of intravenous contrast. Sagittal and coronal reformations were then performed. All CT scans use one or more of the following dose optimizing techniques: automated exposure control, MA and/or KvP adjustment based on a patient size and exam type, or iterative reconstruction. INDICATION: Back pain. Trauma. Fall. COMPARISON: CT chest, abdomen, and pelvis without contrast on 08/05/2021. FINDINGS: Moderate right apex lumbar scoliosis. Alignment is otherwise normal. Vertebral body heights are preserved. No fractures. Benign hemangioma in the T9 vertebral body. Bridging anterior osteophytes throughout most of the midthoracic spine. Moderate to severe degenerative endplate changes in the lumbar spine are greatest at L3-L4. No high-grade spinal canal stenosis is evident by CT. Chronic left 8th and 9th posterior rib fractures. Visualized pelvis is intact. Mild atelectasis in the left lung base is partially visualized. Visualized paravertebral soft tissues are otherwise unremarkable. IMPRESSION: 1. No acute CT findings in the thoracic or lumbar spine. 2. Spondylotic changes are greatest at L3-L4. No high-grade spinal canal stenosis is evident by CT. Dictated by: Dictated on workstation # [id number]
[2022-01-24 10:14] LABS: CREATININE SERUM 3.6 MG/DL (0.60-1.30); POTASSIUM 4.1 MMOL/L (3.6-5.0)
[2022-01-24] MEDS ORDERED: LACTATED RINGERS 1,000 ML IV STA (10:17)
[2022-01-24 11:18] VITALS: BP 104/59
== END 2022-01-24 11:18 | disposition home or self-care (01) ==
LOC: EDUNIT# 08:09 → ER FS 08:11
DX: S80.12XA Contusion of left lower leg, initial encounter (principal); M54.50 Low back pain, unspecified; M54.6 Pain in thoracic spine; Z28.310 Unvaccinated for COVID-19; W18.30XA Fall on same level, unspecified, initial encounter
CPT/HCPCS: 36415; 70450; 71045; 72125; 72128; 72131; 72192; 80048; 85025; 85610; 85730

== ENCOUNTER → 2022-01-24 | Outpatient (CLI) | payer MEDICAID ==
[~2022-01-24] MED LIST changes: +FURO40TA4 PO; +HYDR25TA4 PO; +LEVO750T PO; -LEVO750T39 PO; -NYST15CR TP; +NYST15CR35 TP
[2022-01-24 13:16] LABS: BILIRUBIN,URINE NEGATIVE (NEGATIVE); CLARITY,URINE CLOUDY; COLOR,URINE YELLOW; GLUCOSE, URINE (UA) NEGATIVE (NEGATIVE); KETONES,URINE NEGATIVE (NEGATIVE); LEUKOCYTE ESTERASE ,URINE TRACE (NEGATIVE); NITRITE,URINE NEGATIVE (NEGATIVE); PH,URINE 5.5 (5-9); PROTEIN,URINE NEGATIVE (NEGATIVE)
[2022-01-24 13:27] LABS: BACTERIA,URINE TRACE /HPF; WBC,URINE 0-2 /HPF
[2022-01-24 13:28] LABS: TRICHOMONAS,URINE FEW /HPF
[2022-01-24 13:38] LABS: AMPHETAMINE SCREEN, URINE NEGATIVE (NEGATIVE); BARBITURATE SCREEN URINE NEGATIVE (NEGATIVE); BENZODIAZEPINES SCREEN URINE NEGATIVE (NEGATIVE); CANNABINOID SCREEN, URINE NEGATIVE (NEGATIVE); COCAINE SCREEN URINE NEGATIVE (NEGATIVE); METHADONE STAT NEGATIVE (NEGATIVE); OPIATE SCREEN URINE POSITIVE (NEGATIVE); OXYCODONE STAT NEGATIVE (NEGATIVE); PROPOXYPHENE STAT NEGATIVE (NEGATIVE); TRICYCLIC ANTIDEPRESSANTS SCRE POSITIVE (NEGATIVE)
== END ==
LOC: LAB FS 12:54
PROVIDERS: ATTEND Pediatrics
DX: R45.1 Restlessness and agitation (principal)
CPT/HCPCS: 80306; 81000

== ENCOUNTER → 2022-02-25 | Outpatient (CLI) | payer MEDICAID ==
[2022-02-25 14:02] LABS: BILIRUBIN,URINE NEGATIVE (NEGATIVE); CLARITY,URINE CLOUDY; COLOR,URINE YELLOW; GLUCOSE, URINE (UA) NEGATIVE (NEGATIVE); KETONES,URINE NEGATIVE (NEGATIVE); LEUKOCYTE ESTERASE ,URINE 3+ (NEGATIVE); NITRITE,URINE NEGATIVE (NEGATIVE); PROTEIN,URINE NEGATIVE (NEGATIVE)
[2022-02-25 14:08] LABS: BACTERIA,URINE LARGE /HPF; SQUAMOUS EPITHELIAL CELL,UR 0-2 /HPF; WBC,URINE 50-100 /HPF
== END ==
LOC: LAB FS 13:50
PROVIDERS: ATTEND Pediatrics
DX: R30.0 Dysuria (principal)
CPT/HCPCS: 81000; 87077; 87088; 87186

== ENCOUNTER 2022-05-02 05:14 | Emergency (ER) | payer MEDICAID ==
[2022-05-02 05:47] LABS: BASOPHILS % (AUTO) 0 % (0-10); EOSINOPHILS # (AUTO) 0.3 10^3/uL (0.0-0.3); EOSINOPHILS % (AUTO) 5 % (0-10); HEMATOCRIT 22 % (35-52); LYMPHOCYTES # (AUTO) 1.8 10^3/uL (1.0-4.0); LYMPHOCYTES % (AUTO) 32 % (12-44); MEAN CORPUSCULAR HEMOGLOBIN 32 pg (25-34); MEAN CORPUSCULAR HGB CONC 32 g/dL (32-36); MEAN CORPUSCULAR VOLUME 99 fL (80-99); MEAN PLATELET VOLUME 9.4 fL (9.0-12.2); MONOCYTES # (AUTO) 0.5 10^3/uL (0.0-1.0); MONOCYTES % (AUTO) 9 % (0-12); NEUTROPHILS # (AUTO) 3.1 10^3/uL (1.8-7.8); NEUTROPHILS % (AUTO) 54 % (42-75); PLATELET COUNT 181 10^3/uL (130-400); WHITE BLOOD COUNT 5.8 10^3/uL (4.3-11.0)
--- NOTE | 2022-05-02 06:00 | ED Trauma-Multisystem ---
General Chief Complaint: Trauma-Non Activation Stated Complaint: FALL Nursing Triage Note: Left head/face, left ribs, bilateral hips Source of Information: Patient, EMS (USHA MILIAN MD) History of Present Illness Date Seen by Provider: May 02, 2022 Time Seen by Provider: 05:12 Initial Comments 66-year-old female patient with history of depression, arthritis, chronic back pain, hypertension, hyperlipidemia, COPD, CHF, diabetes mellitus, CVA, ne uropathy, chronic UTI brought in by EMS because of 2 falls. Patient is morbidly obese and using electrical scooter for moving around. Patient states she had a fall last night because of problem with her balance without loss of consciousness and had another fall from her bed this morning when she decided to get to the scooter to go to the bathroom. Patient denies loss of consciousness and complaining of pain in left side of ribs and bilateral legs and rated her pain 9/10. Patient complaining of pain in her knees and hips. Patient denies focal neurodeficit. Patient complaining of chronic cough and shortness of breath and denies recent change. Patient denies chest pain, nausea and vomiting, urinary symptoms, fever and chills, sick exposure. Patient states she has had chronic wound in right thigh after she had a procedure about 4- 5 months ago. Occurred: Just Prior to Arrival (USHA MILIAN MD) Allergies and Home Medications Allergies Uncoded Allergies: IV CONTRAST (Adverse Reaction, Mild, HIVES, 09/17/18) Patient Home Medication List Home Medication List Reviewed: Yes (USHA MILIAN MD) Acetaminophen (Tylenol Extra Strength) 500 Mg Tablet, 1,000 MG PO Q8H PRN for PAIN-MILD (1-4), (Reported) Entered as Reported by: FERNANDO ARELLANO on 11/29/21 1408 Amitriptyline HCl (Amitriptyline HCl) 50 Mg Tablet, 50 MG PO DAILY, (Reported) Entered as Reported by: FERNANDO ARELLANO on 11/29/21 1405 Aspirin (Aspirin EC) 81 Mg Tablet.dr, 81 MG PO DAILY, (Reported) Entered as Reported by: NERIS PRIETO on 10/26/20 0851 Atorvastatin Calcium (Atorvastatin Calcium) 40 Mg Tablet, 40 MG PO HS, (Reported) Entered as Reported by: FERNANDO ARELLANO on 11/29/21 1403 Cefdinir (Cefdinir) 300 Mg Capsule, 300 MG PO BID Prescribed by: CORNELIA MARQUEZ on 12/02/21 1232 Fluoxetine HCl (Fluoxetine HCl) 40 Mg Capsule, 40 MG PO BID, (Reported) Entered as Reported by: NERIS PRIETO on 10/26/20 0851 Furosemide (Furosemide) 40 Mg Tablet, 40 MG PO DAILY, (Reported) Entered as Reported by: FERNANDO ARELLANO on 11/29/21 1404 Gabapentin (Gabapentin) 600 Mg Tablet, 600 MG PO TID PRN for NERVE PAIN, (Reported) Entered as Reported by: MINESH CANALES on 09/17/18 184 Hydrochlorothiazide (Hydrochlorothiazide) 25 Mg Tablet, 25 MG PO DAILY Prescribed by: CORNELIA MARQUEZ on 12/02/21 123 Ibuprofen (Ibuprofen) 800 Mg Tablet, 800 MG PO TID PRN for PAIN-MILD (1-4), (Reported) Entered as Reported by: STACIE BERNAL on 05/15/19 1015 Losartan Potassium (Losartan Potassium) 50 Mg Tablet, 50 MG PO DAILY, (Reported) Entered as Reported by: MINESH CANALES on 09/17/181846 Metformin HCl (Metformin HCl) 1,000 Mg Tablet, 1,000 MG PO BID WITH MEALS, (Reported) Entered as Reported by: MINESH CANALES on 09/17/181846 Oxybutynin Chloride (Oxybutynin Chloride) 5 Mg Tablet, 5 MG PO TID PRN for OVERACTIVE BLADDER, (Reported) Entered as Reported by: MINESH CANALES on 09/17/181846 Rivaroxaban (Xarelto) 10 Mg Tablet, 10 MG PO DAILY, (Reported) Entered as Reported by: FERNANDO ARELLANO on 11/29/21 140 Review of Systems Review of Systems Constitutional: see HPI Eyes: See HPI Ears: See HPI Nose: See HPI Mouth: See HPI Throat: See HPI Respiratory: see HPI Cardiovascular: See HPI Gastrointestinal: see HPI Genitourinary: see HPI Musculoskeletal: see HPI Psychiatric/Neurological: See HPI (USHA MILIAN MD) All Other Systems Reviewed Negative Unless Noted: Yes (USHA MILIAN MD) Past Gtojddv-Tnowwm-Tnbjhi Hx Patient Social History Tobacco Use?: Yes Tobacco type used: Cigarettes Smoking Status: Current Everyday Smoker Use of E-Cig and/or Vaping dev: No Substance use?: No Alcohol Use?: No Pt feels they are or have been: No (USHA MILIAN MD) Immunizations Up To Date Tetanus Booster (TDap): Unknown First/Initial COVID19 Vaccinat: NOT VACCINATED Second COVID19 Vaccination Get: NOT VACCINATED Third COVID19 Vaccination Date: NOT VACCINATED (USHA MILIAN MD) Seasonal Allergies Seasonal Allergies: No (USHA MILIAN MD) Past Medical History Surgery/Hospitalization HX: MRSA APPY C Section Bladder Surgery Stroke with R side residual Cataracts Dilation Urethral structurre HTN Cheek Cellulitis Surgeries: Yes (cystoscopies) Appendectomy, Bladder Surgery, Section, Gallbladder, Tonsillectomy Respiratory: Yes COPD Cardiac: Yes High Cholesterol, Hypertension Neurological: Yes Neuropathy, Stroke Genitourinary: Yes (urethral strictures) UTI-Chronic Gastrointestinal: Yes Gall Bladder Disease Musculoskeletal: Yes Arthritis, Chronic Back Pain Endocrine: Yes Diabetes, Insulin dep HEENT: Yes (decreasing vision with age and due to DM) Hearing Impairment: Denies Cancer: No Psychosocial: No Depression Integumentary: Yes (L ORBITAL CELLULITIS, 2018 CHEEK CELLULITIS) Recent Skin Changes Blood Disorders: No (USHA MILIAN MD) Family Medical History Patient reports no known family medical history. Diabetes, Hypertension (USHA MILIAN MD) Physical Exam Vital Signs Vital Signs - First Documented 05/02/22 05:14 Temp 36.2 Pulse 79 Resp 20 B/P (MAP) 121/72 (88) Pulse Ox 99 O2 Delivery Room Air ([facility]) Height, Weight, BMI Height: 5'6.00" Weight: 290lbs. 1.0oz. 131.417009dx; 42.00 BMI Method:Stated General Appearance: Anxious, Mild Distress, Obese (Morbid obesity) Head: Other (Left periorbital old ecchymosis) Eyes: Bilateral Eye Normal Inspection, Bilateral Eye PERRL Ears, Nose, Throat: Hearing Grossly Normal, No Evidence of ENT Injury Neck: Full Range of Motion, Normal Inspection, Non Tender, Supple Cardiovascular: Regular Rate, Rhythm, No Edema Respiratory: Lungs Clear, Normal Breath Sounds, No Accessory Muscle Use, No Respiratory Distress, Other (Tenderness of left lateral chest wall without ecchymosis or subcutaneous emphysema or deformity) Gastrointestinal: Normal Bowel Sounds, No Organomegaly, Non Tender, Soft Back: Normal Inspection, No CVA Tenderness, No Vertebral Tenderness Extremity: Normal Capillary Refill, Normal Range of Motion, Other (Multiple old and new ecchymosis and contusion of bilateral upper and lower extremities, large hematoma in anterior of both legs, old wound of right medial side of thigh without signs of infection) Neurologic/Psychiatric: Alert, Oriented x3, No Motor/Sensory Deficits Skin: Warm/Dry, Ecchymosis, Pallor, Other (Erythema of right lower extremity) (USHA MILIAN MD) Focused Exam Lactate Level 05/02/22 05:20: Lactic Acid Level 4.54*H (DAY WANG L DO) Lactic Acid Level Laboratory Tests Test 05/02/22 05:20 Lactic Acid Level 4.54 MMOL/L (0.50-2.00) *H (REVADAY L DO) Progress/Results/Core Measures Results/Orders Lab Results Laboratory Tests Test 05/02/22 05:20 05/02/22 05:44 Range/Units White Blood Count 5.8 4.3-11.0 10^3/uL Red Blood Count 2.19 L 3.80-5.11 10^6/uL Hemoglobin 7.0 L 11.5-16.0 g/dL Hematocrit 22 L 35-52 % Mean Corpuscular Volume 99 80-99 fL Mean Corpuscular Hemoglobin 32 25-34 pg Mean Corpuscular Hemoglobin Concent 32 32-36 g/dL Red Cell Distribution Width 15.2 H 10.0-14.5 % Platelet Count 181 130-400 10^3/uL Mean Platelet Volume 9.4 9.0-12.2 fL Immature Granulocyte % (Auto) 0 % Neutrophils (%) (Auto) 54 42-75 % Lymphocytes (%) (Auto) 32 12-44 % Monocytes (%) (Auto) 9 0-12 % Eosinophils (%) (Auto) 5 0-10 % Basophils (%) (Auto) 0 0-10 % Neutrophils # (Auto) 3.1 1.8-7.8 10^3/uL Lymphocytes # (Auto) 1.8 1.0-4.0 10^3/uL Monocytes # (Auto) 0.5 0.0-1.0 10^3/uL Eosinophils # (Auto) 0.3 0.0-0.3 10^3/uL Basophils # (Auto) 0.0 0.0-0.1 10^3/uL Immature Granulocyte # (Auto) 0.0 0.0-0.1 10^3/uL Prothrombin Time 15.5 H 12.2-14.7 SEC INR Comment 1.2 0.8-1.4 Activated Partial Thromboplast Time 29 24-35 SEC Sodium Level 139 135-145 MMOL/L Potassium Level 5.5 H 3.6-5.0 MMOL/L Chloride Level 103 98-107 MMOL/L Carbon Dioxide Level 21 21-32 MMOL/L Anion Gap 15 H 5-14 MMOL/L Blood Urea Nitrogen 50 H 7-18 MG/DL Creatinine 2.93 H 0.60-1.30 MG/DL Estimat Glomerular Filtration Rate 17 BUN/Creatinine Ratio 17 Glucose Level 171 H 70-105 MG/DL Lactic Acid Level 4.54 *H 0.50-2.00 MMOL/L Calcium Level 8.7 8.5-10.1 MG/DL Corrected Calcium 9.2 8.5-10.1 MG/DL Magnesium Level 1.8 1.6-2.4 MG/DL Total Bilirubin 0.2 0.1-1.0 MG/DL Aspartate Amino Transf (AST/SGOT) 17 5-34 U/L Alanine Aminotransferase (ALT/SGPT) 15 0-55 U/L Alkaline Phosphatase 67 40-136 U/L Troponin I < 0.30 <0.30 NG/ML Pro-B-Type Natriuretic Peptide 2194.0 H <125.0 PG/ML Total Protein 5.6 L 6.4-8.2 GM/DL Albumin 3.4 3.2-4.5 GM/DL Urine Color YELLOW Urine Clarity CLOUDY Urine pH 6.0 5-9 Urine Specific [place] 1.015 L 1.016-1.022 Urine Protein NEGATIVE NEGATIVE Urine Glucose (UA) NEGATIVE NEGATIVE Urine Ketones TRACE H NEGATIVE Urine Nitrite POSITIVE H NEGATIVE Urine Bilirubin NEGATIVE NEGATIVE Urine Urobilinogen 0.2 < = 1.0 MG/DL Urine Leukocyte Esterase TRACE H NEGATIVE Urine RBC (Auto) NEGATIVE NEGATIVE Urine RBC RARE /HPF Urine WBC 5-10 H /HPF Urine Squamous Epithelial Cells 0-2 /HPF Urine Renal Epithelial Cells RARE /HPF Urine Crystals NONE /LPF Urine Bacteria LARGE H /HPF Urine Casts PRESENT /LPF Urine Hyaline Casts RARE /LPF Urine Mucus SMALL H /LPF Urine Culture Indicated CULTURE PENDING Urine Opiates Screen NEGATIVE NEGATIVE Urine Oxycodone Screen NEGATIVE NEGATIVE Urine Methadone Screen NEGATIVE NEGATIVE Urine Propoxyphene Screen NEGATIVE NEGATIVE Urine Barbiturates Screen NEGATIVE NEGATIVE Ur Tricyclic Antidepressants Screen POSITIVE H NEGATIVE Urine Phencyclidine Screen NEGATIVE NEGATIVE Urine Amphetamines Screen NEGATIVE NEGATIVE Urine Methamphetamines Screen NEGATIVE NEGATIVE Urine Benzodiazepines Screen NEGATIVE NEGATIVE Urine Cocaine Screen NEGATIVE NEGATIVE Urine Cannabinoids Screen NEGATIVE NEGATIVE (WANG,DAY L DO) Medications Given in ED Current Medications Medications Dose Ordered Sig/Suzi Route Start Time Stop Time Status Last Admin Dose Admin Ceftriaxone Sodium 2000 mg/ Sodium Chloride 50 ml @ 100 mls/hr ONCE ONCE IV 05/02/22 06:30 05/02/22 06:59 DC 05/02/22 06:27 100 MLS/HR Vancomycin HCl 1000 mg/Sodium Chloride 250 ml @ 250 mls/hr ONCE ONCE IV 05/02/22 06:30 05/02/22 07:29 DC 05/02/22 06:33 250 MLS/HR (WANG,DAY L DO) Vital Signs/I&O 05/02/22 05:14 Temp 36.2 Pulse 79 Resp 20 B/P (MAP) 121/72 (88) Pulse Ox 99 O2 Delivery Room Air (WANG,DAY L DO) Progress Progress Note : Progress Note 66-year-old female patient with multiple medical problem and morbid obesity and wheelchair-bound brought in by EMS because of falls this morning and last night with complaining of pain in face and left chest and bilateral hip and knees. Patient was alert and oriented. Labs showed hemoglobin of 7.0 with previous hemoglobin of 9.4. White count was in normal range. Patient had elevation of BUN of 50 and creatinine of 2.9 with episode of elevation of BUN/creatinine previously. Patient had BNP of almost 2200 with previous BNP of 800. Patient had unremarkable troponin. Potassium was 5.5 and albuterol inhaler was ordered. X-ray of the knees showed severe arthritis without acute fracture. X-ray of tibia-fibula was unremarkable. Patient had lactic of 4.5 with UTI and treated with Rocephin and vancomycin. 1 L of IV fluid was ordered. Patient has pending CT head, cervical spine, facial bones, chest, abdomen and pelvis. Patient care transferred to incoming ER physician Dr. Wang incoming ER physician at 0700. (USHA MILIAN MD) Progress Note : Progress Note 0745 patient's care was assumed from previous physician. Patient's evaluation and work-up and plan was finished upon assumption of care. I facilitated transfer. Patient was accepted by Dr. Lechuga at [facility] which is where she requested to go since he is her physician. She was transferred via EMS in stable condition (DAY WANG DO) Initial ECG Impression Date: May 02, 2022 Initial ECG Impression Time: 05:48 Initial ECG Rhythm: Normal Sinus Initial ECG Intervals EKG interpreted by me. EKG at 0548 showed normal sinus rhythm at rate of 79, low voltage QRS, normal NV interval of 188 and QT interval of 378, no acute ST and T wave elevation. (USHA MILIAN MD) Critical Care Note Critical Care Total Time (minutes) 65 (USHA MILIAN MD) Departure Impression Primary Impression: Severe sepsis Additional Impressions: UTI (urinary tract infection) Qualified Codes: N39.0 - Urinary tract infection, site not specified; R31.9 - Hematuria, unspecified Anemia CHF exacerbation Qualified Codes: I50.9 - Heart failure, unspecified Frequent falls Acute on chronic renal failure Qualified Codes: N17.9 - Acute kidney failure, unspecified; N18.9 - Chronic kidney disease, unspecified Morbid obesity Disposition: 02 XFER SHT-TRM HOSP Condition: Improved Transfer Transfer Reason: Patient preference Time Spoke to Accepting Phy: 07:47 Transfer Progress Notes pt accepted to [facility] Lechuga pt transferred in stable condition (DAY WANG DO) Departure-Patient Inst. Referrals: KATIE HUDSON MD (PCP/Family) Primary Care Physician USHA MILIAN MD May 02, 2022 06:00 DAY WANG DO May 02, 2022 07:51
[2022-05-02 06:02] LABS: BILIRUBIN,URINE NEGATIVE (NEGATIVE); COLOR,URINE YELLOW; GLUCOSE, URINE (UA) NEGATIVE (NEGATIVE); KETONES,URINE TRACE (NEGATIVE); LEUKOCYTE ESTERASE ,URINE TRACE (NEGATIVE); NITRITE,URINE POSITIVE (NEGATIVE); PROTEIN,URINE NEGATIVE (NEGATIVE)
[2022-05-02 06:12] LABS: BUN/CREATININE RATIO 17; CALCIUM 8.7 MG/DL (8.5-10.1); CARBON DIOXIDE 21 MMOL/L (21-32); CHLORIDE 103 MMOL/L (98-107); CREATININE SERUM 2.93 MG/DL (0.60-1.30); GFR ESTIMATED 17; GLUCOSE 171 MG/DL (70-105); POTASSIUM 5.5 MMOL/L (3.6-5.0); SODIUM 139 MMOL/L (135-145)
[2022-05-02 06:13] LABS: ALANINE AMINOTRANSFERASE 15 U/L (0-55); ALBUMIN 3.4 GM/DL (3.2-4.5); ALKALINE PHOSPHATASE 67 U/L (40-136); BILIRUBIN,TOTAL 0.2 MG/DL (0.1-1.0); TOTAL PROTEIN 5.6 GM/DL (6.4-8.2)
[2022-05-02 06:15] LABS: MAGNESIUM 1.8 MG/DL (1.6-2.4)
[2022-05-02 06:17] LABS: INR 1.2 (0.8-1.4); PROTHROMBIN TIME PATIENT 15.5 SEC (12.2-14.7)
[2022-05-02 06:28] LABS: CLARITY,URINE CLOUDY; RBC,URINE RARE /HPF
[2022-05-02 06:29] LABS: RENAL EPITHELIAL CELLS,URINE RARE /HPF; SQUAMOUS EPITHELIAL CELL,UR 0-2 /HPF
[2022-05-02 06:30] LABS: BACTERIA,URINE LARGE /HPF
[2022-05-02] MEDS ORDERED: VANCOMYCIN INJECTION 1,000 MG in NS (IVPB) 250 ML IV ONE (06:30)
[2022-05-02] MEDS ORDERED: cefTRIAXone 2,000 MG in NS (IVPB) 50 ML IV ONE (06:30)
[2022-05-02] MEDS ORDERED: NS IV 1000 ML 1,000 ML IV SCH (06:30)
[2022-05-02 06:32] LABS: HYALINE CASTS, URINE RARE /LPF
[2022-05-02 06:38] LABS: AMPHETAMINE SCREEN, URINE NEGATIVE (NEGATIVE); BARBITURATE SCREEN URINE NEGATIVE (NEGATIVE); BENZODIAZEPINES SCREEN URINE NEGATIVE (NEGATIVE); CANNABINOID SCREEN, URINE NEGATIVE (NEGATIVE); COCAINE SCREEN URINE NEGATIVE (NEGATIVE); METHADONE STAT NEGATIVE (NEGATIVE); OPIATE SCREEN URINE NEGATIVE (NEGATIVE); OXYCODONE STAT NEGATIVE (NEGATIVE); PROPOXYPHENE STAT NEGATIVE (NEGATIVE); TRICYCLIC ANTIDEPRESSANTS SCRE POSITIVE (NEGATIVE)
--- NOTE | 2022-05-02 06:46 | Diagnostic Imaging Report ---
PROCEDURE: CT head, face, and cervical spine without contrast. TECHNIQUE: Multiple contiguous axial images were obtained through the head, neck, and facial bones without the use of intravenous contrast. Sagittal and coronal reformations through the cervical spine and facial bones were also performed. Auto Exposure Controls were utilized during the CT exam to meet ALARA standards for radiation dose reduction. INDICATION: Fall. Head and neck pain. Facial bruising. COMPARISON: 01/24/2022. FINDINGS: CT head: The ventricles and cortical sulci are age-appropriate. There is no midline shift or mass-effect. No acute intracranial hemorrhage is seen. There is no CT evidence of acute territorial ischemia. No focal masses or collections are present. The calvarium is intact. CT face: No acute facial fractures are visualized. The mandible, zygomatic arches, and pterygoid plates are intact. The bilateral TMJ demonstrate normal articulation. No nasal bone fractures. The bony nasal septum is slightly deviated to the right without fracture. The paranasal sinuses and mastoid air cells are well pneumatized. The globes and orbits are symmetric and unremarkable. No evidence of orbital rim fracture. CT cervical spine: No acute fracture or dislocation is seen in the cervical spine. No focal osseous lesions. There is straightening of the cervical spine. Vertebral body heights are well-maintained. The craniocervical junction is well-maintained. Soft tissues of the neck are unremarkable. The included lung apices are clear. IMPRESSION: 1. No hemorrhage or focal intra-axial mass. No CT evidence of large acute territorial ischemia. 2. No acute fracture or dislocation in the cervical spine. 3. No acute facial fractures. Dictated by: Dictated on workstation # [id number]
--- NOTE | 2022-05-02 06:47 | Diagnostic Imaging Report ---
CLINICAL HISTORY: Fall. Bilateral knee pain. COMPARISON: 11/17/2018. TECHNIQUE: 6 views of the bilateral knees. FINDINGS: There is no acute fracture or dislocation of the bilateral knees. Severe degenerative changes are seen in the bilateral knees with joint space narrowing, marginal osteophytes, and subchondral sclerosis. No large joint effusion. IMPRESSION: 1. No acute fracture or dislocation of bilateral knees. 2. Severe degenerative changes in both knees. Dictated by: Dictated on workstation # [id number]
--- NOTE | 2022-05-02 06:48 | Diagnostic Imaging Report ---
CLINICAL HISTORY: Fall. Bilateral lower leg pain. COMPARISON: 07/20/2021. TECHNIQUE: 4 views of the bilateral tibia and fibula.. FINDINGS: There is no acute fracture or dislocation of the bilateral tibia and fibula. Alignment is anatomic. No focal osseous lesions. There is generalized soft tissue edema. IMPRESSION: 1. No acute fracture or dislocation in the bilateral tibia and fibula. Dictated by: Dictated on workstation # [id number]
[2022-05-02 07:54] VITALS: BP 145/70
--- NOTE | 2022-05-02 09:01 | Diagnostic Imaging Report ---
PROCEDURE: CT chest and abdomen without contrast. TECHNIQUE: Axial images were obtained from the thoracic inlet through the iliac crest without the administration of intravenous contrast. Auto Exposure Controls were utilized during the CT exam to meet ALARA standards for radiation dose reduction. INDICATION: Fall. Chest and abdominal pain. COMPARISON: 08/05/2021. CT chest: The heart size is within normal limits. No pericardial effusion is present. There is calcified aortic and coronary atherosclerotic plaque without aneurysm. There is no mediastinal, hilar, or axillary lymphadenopathy. The lungs demonstrate no pulmonary nodules or masses. There are no focal areas of consolidation. Small amount of bibasilar atelectasis is seen. No pneumothoraces are present. No central endobronchial obstructing lesions are identified. There are no pleural effusions. No acute osseous abnormalities. CT abdomen and pelvis: The liver, spleen, pancreas, adrenal glands, and kidneys have a normal noncontrast CT appearance. There is no pathologically enlarged mesenteric or retroperitoneal adenopathy. The included bowel loops are nondilated. There is no free fluid or free air. The urinary bladder is decompressed with a Jones in place. No acute osseous abnormalities. IMPRESSION: 1. No acute abnormalities in the chest, abdomen and pelvis. Dictated by: Dictated on workstation # [id number]
== END 2022-05-02 08:16 | disposition short-term general hospital (02) ==
LOC: EDUNIT# 05:14 → ER FS 05:18
DX: N39.0 Urinary tract infection, site not specified (principal); R65.20 Severe sepsis without septic shock; D64.9 Anemia, unspecified; R29.6 Repeated falls; M25.552 Pain in left hip; M25.551 Pain in right hip; M25.561 Pain in right knee; M25.562 Pain in left knee; R07.89 Other chest pain; I13.0 Hypertensive heart and chronic kidney disease with heart failure and stage 1 through stage 4 chronic kidney disease, or unspecified chronic kidney disease; E11.22 Type 2 diabetes mellitus with diabetic chronic kidney disease; N18.9 Chronic kidney disease, unspecified; I50.9 Heart failure, unspecified; N17.9 Acute kidney failure, unspecified; J44.9 Chronic obstructive pulmonary disease, unspecified; E66.01 Morbid (severe) obesity due to excess calories; F17.210 Nicotine dependence, cigarettes, uncomplicated; Z68.41 Body mass index [BMI] 40.0-44.9, adult; Z79.4 Long term (current) use of insulin; Z28.310 Unvaccinated for COVID-19
CPT/HCPCS: 36415; 51702; 70450; 70486; 71250; 72125; 74176; 80053; 80306; 81000; 83605; 83735; 83880; 84484; 85025; 85610; 85730; 87040; 87077; 87088; 93005

== ENCOUNTER 2022-06-24 11:57 | Emergency (ER) | payer MEDICAID ==
[2022-06-24 12:01] VITALS: BP 107/82
--- NOTE | 2022-06-24 12:10 | ED GU-Female ---
General Chief Complaint: - Reproductive Stated Complaint: BACK PAIN Nursing Triage Note: Patient has presented to ER by EMS with cc of frequent urination for the last 2 days and she complains of mid back pain for the last 3 days. History of Present Illness Date Seen by Provider: Jun 24, 2022 Time Seen by Provider: 12:04 Initial Comments 67-year-old female with PMH of DM2/HTN/morbid obesity/recurrent UTI, is brought in by EMS with complaints of left flank pain which has been going on for the past week but has been worsening over the past 2 days. This is associated with urinary incontinence and chills. Denies fever, dysuria, hematuria, chest pain, palpitations, abdominal pain, diarrhea or constipation. Allergies and Home Medications Allergies Uncoded Allergies: IV CONTRAST (Adverse Reaction, Mild, HIVES, 09/17/18) Patient Home Medication List Home Medication List Reviewed: Yes Acetaminophen (Tylenol Extra Strength) 500 Mg Tablet, 1,000 MG PO Q8H PRN for PAIN-MILD (1-4), (Reported) Entered as Reported by: FERNANDO ARELLANO on 11/29/21 1408 Amitriptyline HCl (Amitriptyline HCl) 50 Mg Tablet, 50 MG PO DAILY, (Reported) Entered as Reported by: FERNANDO ARELLANO on 11/29/21 1405 Aspirin (Aspirin EC) 81 Mg Tablet.dr, 81 MG PO DAILY, (Reported) Entered as Reported by: NERIS PRIETO on 10/26/20 0851 Atorvastatin Calcium (Atorvastatin Calcium) 40 Mg Tablet, 40 MG PO HS, (Reported) Entered as Reported by: FERNANDO ARELLANO on 11/29/21 1403 Cefdinir (Cefdinir) 300 Mg Capsule, 300 MG PO BID Prescribed by: CORNELIA MARQUEZ on 12/02/21 1232 Fluoxetine HCl (Fluoxetine HCl) 40 Mg Capsule, 40 MG PO BID, (Reported) Entered as Reported by: NERIS PRIETO on 10/26/20 0851 Furosemide (Furosemide) 40 Mg Tablet, 40 MG PO DAILY, (Reported) Entered as Reported by: FERNANDO ARELLANO on 11/29/21 1404 Gabapentin (Gabapentin) 600 Mg Tablet, 600 MG PO TID PRN for NERVE PAIN, (Reported) Entered as Reported by: MINESH CANALES on 09/17/18 1847 Hydrochlorothiazide (Hydrochlorothiazide) 25 Mg Tablet, 25 MG PO DAILY Prescribed by: CORNELIA MARQUEZ on 12/02/21 1232 Ibuprofen (Ibuprofen) 800 Mg Tablet, 800 MG PO TID PRN for PAIN-MILD (1-4), (Reported) Entered as Reported by: STACIE BERNAL on 05/15/19 1015 Losartan Potassium (Losartan Potassium) 50 Mg Tablet, 50 MG PO DAILY, (Reported) Entered as Reported by: MINESH CANALES on 09/17/18 184 Metformin HCl (Metformin HCl) 1,000 Mg Tablet, 1,000 MG PO BID WITH MEALS, (Repo rted) Entered as Reported by: MINESH CANALES on 09/17/181846 Oxybutynin Chloride (Oxybutynin Chloride) 5 Mg Tablet, 5 MG PO TID PRN for OVERACTIVE BLADDER, (Reported) Entered as Reported by: MINESH CANALES on 09/17/181846 Rivaroxaban (Xarelto) 10 Mg Tablet, 10 MG PO DAILY, (Reported) Entered as Reported by: FERNANDO ARELLANO on 11/29/21 1404 Review of Systems Review of Systems Constitutional: chills EENTM: no symptoms reported Respiratory: no symptoms reported Cardiovascular: no symptoms reported Gastrointestinal: no symptoms reported Genitourinary: frequency, flank pain, incontinence Musculoskeletal: no symptoms reported Skin: no symptoms reported Psychiatric/Neurological: No Symptoms Reported Endocrine: No Symptoms Reported Hematologic/Lymphatic: No Symptoms Reported Past Qagxixp-Uttcut-Vbgjcg Hx Patient Social History Tobacco Use?: No Use of E-Cig and/or Vaping dev: No Substance use?: No Alcohol Use?: No Immunizations Up To Date Tetanus Booster (TDap): Unknown First/Initial COVID19 Vaccinat: NOT VACCINATED Second COVID19 Vaccination Get: NOT VACCINATED Third COVID19 Vaccination Date: NOT VACCINATED Seasonal Allergies Seasonal Allergies: No Past Medical History Surgery/Hospitalization HX: MRSA APPY C Section Bladder Surgery Stroke with R side residual Cataracts Dilation Urethral structurre HTN Cheek Cellulitis Surgeries: Yes (cystoscopies) Appendectomy, Bladder Surgery, Section, Gallbladder, Tonsillectomy Respiratory: Yes COPD Cardiac: Yes High Cholesterol, Hypertension Neurological: Yes Neuropathy, Stroke Genitourinary: Yes (urethral strictures) UTI-Chronic Gastrointestinal: Yes Gall Bladder Disease Musculoskeletal: Yes Arthritis, Chronic Back Pain Endocrine: Yes Diabetes, Insulin dep HEENT: Yes (decreasing vision with age and due to DM) Hearing Impairment: Denies Cancer: No Psychosocial: No Depression Integumentary: Yes (L ORBITAL CELLULITIS, 2018 CHEEK CELLULITIS) Recent Skin Changes Blood Disorders: No Family Medical History Patient reports no known family medical history. Diabetes, Hypertension Physical Exam Vital Signs Vital Signs - First Documented 06/24/22 12:01 Temp 36.7 Pulse 71 Resp 18 B/P (MAP) 107/82 (90) Pulse Ox 98 O2 Delivery Room Air Capillary Refill : Height, Weight, BMI Height: 5'6.00" Weight: 290lbs. 1.0oz. [id number]; BMI Method:Stated General Appearance: WD/WN, no apparent distress, obese HEENT: PERRL/EOMI Neck: full range of motion Cardiovascular: regular rate, rhythm Respiratory: chest non-tender, lungs clear, normal breath sounds Gastrointestinal: normal bowel sounds, non tender, soft Back: normal inspection, no vertebral tenderness, CVA tenderness (L) Extremities: normal range of motion Neurologic/Psychiatric: alert, normal mood/affect, oriented x 3 Skin: normal color Focused Exam Lactate Level 06/24/22 12:34: Lactic Acid Level 1.72 Lactic Acid Level Laboratory Tests Test 06/24/22 12:34 Lactic Acid Level 1.72 MMOL/L (0.50-2.00) Progress/Results/Core Measures Suspected Sepsis SIRS Temperature: Pulse: 71 Respiratory Rate: 18 Laboratory Tests 06/24/22 12:34: White Blood Count 4.6 Blood Pressure 107 /82 Mean: 90 06/24/22 12:34: Lactic Acid Level 1.72 Laboratory Tests 06/24/22 12:34: Creatinine 2.51H, Platelet Count 154, Total Bilirubin 0.5 Results/Orders Lab Results Laboratory Tests Test 06/24/22 12:00 06/24/22 12:34 Range/Units Urine Color YELLOW Urine Clarity CLEAR Urine pH 6.5 5-9 Urine Specific Randall 1.015 L 1.016-1.022 Urine Protein NEGATIVE NEGATIVE Urine Glucose (UA) NEGATIVE NEGATIVE Urine Ketones NEGATIVE NEGATIVE Urine Nitrite NEGATIVE NEGATIVE Urine Bilirubin NEGATIVE NEGATIVE Urine Urobilinogen 0.2 < = 1.0 MG/DL Urine Leukocyte Esterase TRACE H NEGATIVE Urine RBC (Auto) NEGATIVE NEGATIVE Urine RBC NONE /HPF Urine WBC 2-5 /HPF Urine Squamous Epithelial Cells 2-5 /HPF Urine Crystals NONE /LPF Urine Bacteria MODERATE H /HPF Urine Casts NONE /LPF Urine Mucus NEGATIVE /LPF Urine Other clue cell /HPF Urine Culture Indicated NO White Blood Count 4.6 4.3-11.0 10^3/uL Red Blood Count 2.87 L 3.80-5.11 10^6/uL Hemoglobin 9.1 L 11.5-16.0 g/dL Hematocrit 27 L 35-52 % Mean Corpuscular Volume 95 80-99 fL Mean Corpuscular Hemoglobin 32 25-34 pg Mean Corpuscular Hemoglobin Concent 34 32-36 g/dL Red Cell Distribution Width 14.0 10.0-14.5 % Platelet Count 154 130-400 10^3/uL Mean Platelet Volume 9.0 9.0-12.2 fL Immature Granulocyte % (Auto) 0 % Neutrophils (%) (Auto) 53 42-75 % Lymphocytes (%) (Auto) 34 12-44 % Monocytes (%) (Auto) 9 0-12 % Eosinophils (%) (Auto) 3 0-10 % Basophils (%) (Auto) 0 0-10 % Neutrophils # (Auto) 2.5 1.8-7.8 10^3/uL Lymphocytes # (Auto) 1.6 1.0-4.0 10^3/uL Monocytes # (Auto) 0.4 0.0-1.0 10^3/uL Eosinophils # (Auto) 0.1 0.0-0.3 10^3/uL Basophils # (Auto) 0.0 0.0-0.1 10^3/uL Immature Granulocyte # (Auto) 0.0 0.0-0.1 10^3/uL Sodium Level 139 135-145 MMOL/L Potassium Level 5.0 3.6-5.0 MMOL/L Chloride Level 103 98-107 MMOL/L Carbon Dioxide Level 25 21-32 MMOL/L Anion Gap 11 5-14 MMOL/L Blood Urea Nitrogen 34 H 7-18 MG/DL Creatinine 2.51 H 0.60-1.30 MG/DL Estimat Glomerular Filtration Rate 20 BUN/Creatinine Ratio 14 Glucose Level 178 H 70-105 MG/DL Lactic Acid Level 1.72 0.50-2.00 MMOL/L Calcium Level 8.9 8.5-10.1 MG/DL Corrected Calcium 9.1 8.5-10.1 MG/DL Total Bilirubin 0.5 0.1-1.0 MG/DL Aspartate Amino Transf (AST/SGOT) 18 5-34 U/L Alanine Aminotransferase (ALT/SGPT) 15 0-55 U/L Alkaline Phosphatase 69 40-136 U/L Total Protein 6.6 6.4-8.2 GM/DL Albumin 3.8 3.2-4.5 GM/DL Lipase 34 8-78 U/L My Orders Orders - ILDEFONSO HU MD Ct Abdomen/Pelvis Wo (06/24/22 12:10) Cbc With Automated Diff (06/24/22 12:10) Comprehensive Metabolic Panel (06/24/22 12:10) Lactic Acid Analyzer (06/24/22 12:10) Lipase (06/24/22 12:10) Ua Culture If Indicated (06/24/22 12:10) Ceftriaxone 1 Gm Pre-Mix (Rocephin 1 Gm (06/24/22 12:38) Ketorolac Injection (Toradol Injection) (06/24/22 12:45) Medications Given in ED Current Medications Medications Dose Ordered Sig/Suzi Route Start Time Stop Time Status Last Admin Dose Admin Ketorolac Tromethamine 15 mg ONCE ONCE IVP 06/24/22 12:45 06/24/22 12:46 DC 06/24/22 12:46 15 MG Vital Signs/I&O 06/24/22 12:01 Temp 36.7 Pulse 71 Resp 18 B/P (MAP) 107/82 (90) Pulse Ox 98 O2 Delivery Room Air Capillary Refill : Blood Pressure Mean: 90 Progress Note : Progress Note 1. ACUTE CYSTITIS : - CT ABDOMEN WITHOUT CONTRAST (patient has contrast allergy): unremarkable -UA is positive for leukocyte esterase and bacteria -Labs unremarkable -Ceftriaxone 1 g IV stat in ER, Toradol 15 mg IV stat for pain control - Prescription for Cefpodoxime 100mg bid for 7 days -Advised adequate hydration with water -Tylenol as needed pain -Follow-up with PCP in the next 7 days -Urinary incontinence due to the UTI -The patient was seen in the ED, and treated appropriately to presentation at a specific point in time. Patient is informed that there is a possibility that disease and illness can evolve and change in acuity rapidly or slowly after patient is discharged from the ER. Precautionary advice given to the patient for immediate return to ER if symptoms worsen or do not resolve, and to seek emergency care sooner rather than later. Pt also advised on the importance of PCP follow up and compliance with management and follow up plan with PCP and/or specialist, as this is part of the management plan. Pt verbally expressed understanding. Diagnostic Imaging Diagonstic Imaging: CT Plain Films/CT/US/NM/MRI: abdomen Comments [facility] [place], [place] NAME: MORALES WALKER [facility] REC#: [id number] PT STATUS: REG ER : 1955 PHYSICIAN: ILDEFONSO HU MD ADMIT DATE: 06/24/22/ER FS Draft Date of Exam:06/24/22 CT ABDOMEN/PELVIS WO INDICATION: Left flank pain. TECHNIQUE: Multiple contiguous axial images were obtained through the abdomen and pelvis without the use of intravenous contrast. Auto Exposure Controls were utilized during the CT exam to meet ALARA standards for radiation dose reduction. Comparison made to 05/02/2022. FINDINGS: Visualized portions of the lung bases are clear. There were no pleural fluid collections. There is no free intraperitoneal air. The liver shows no focal lesion. Spleen appears unremarkable. Adrenals and pancreas appear unremarkable. The kidneys bilaterally show no radiopaque stone or hydronephrosis. Visualized bowel loops show no overt obstruction. There is no pelvic mass or free fluid. IMPRESSION: No acute abnormality visualized in the abdomen or pelvis. Dictated on workstation # [id number] Dict: 06/24/22 1249 Trans: 06/24/22 1252 [id number] Interpreted by: ROBERTA COATES MD Electronically signed by: Departure Impression Primary Impression: Acute cystitis without hematuria Additional Impression: Urinary incontinence Qualified Codes: R32 - Unspecified urinary incontinence Disposition: HOME, SELF-CARE Condition: Stable Departure-Patient Inst. Referrals: NICOLE ACHARYA MD (PCP) Primary Care Physician Patient Instructions: Urinary Tract Infection, Adult (DC), Urinary Incontinence, Female (DC) Add. Discharge Instructions: Prescription for Cefpodoxime 100mg bid for 7 days -Advised adequate hydration with water -Tylenol as needed pain, Lidoderm patch which is over the counter, heat application -Follow-up with PCP in the next 7 days All discharge instructions reviewed with patient and/or family. Voiced understanding. Scripts Cefpodoxime Proxetil (Cefpodoxime Proxetil) 100 Mg Tablet 100 MG PO BID for 7 Days, #14 TAB Prov: ILDEFONSO HU MD 06/24/22 ILDEFONSO HU MD Jun 24, 2022 12:10
[2022-06-24 12:17] LABS: BILIRUBIN,URINE NEGATIVE (NEGATIVE); CLARITY,URINE CLEAR; COLOR,URINE YELLOW; GLUCOSE, URINE (UA) NEGATIVE (NEGATIVE); KETONES,URINE NEGATIVE (NEGATIVE); LEUKOCYTE ESTERASE ,URINE TRACE (NEGATIVE); NITRITE,URINE NEGATIVE (NEGATIVE); PH,URINE 6.5 (5-9); PROTEIN,URINE NEGATIVE (NEGATIVE)
[2022-06-24 12:22] LABS: BACTERIA,URINE MODERATE /HPF
[2022-06-24 12:23] LABS: URINE OTHER clue cell /HPF
[2022-06-24] MEDS ORDERED: cefTRIAXone 1 GM PRE-MIX 50 ML IV STA (12:38)
[2022-06-24 12:39] LABS: BASOPHILS % (AUTO) 0 % (0-10); EOSINOPHILS # (AUTO) 0.1 10^3/uL (0.0-0.3); EOSINOPHILS % (AUTO) 3 % (0-10); HEMATOCRIT 27 % (35-52); HEMOGLOBIN 9.1 g/dL (11.5-16.0); LYMPHOCYTES # (AUTO) 1.6 10^3/uL (1.0-4.0); LYMPHOCYTES % (AUTO) 34 % (12-44); MEAN CORPUSCULAR HEMOGLOBIN 32 pg (25-34); MEAN CORPUSCULAR HGB CONC 34 g/dL (32-36); MEAN CORPUSCULAR VOLUME 95 fL (80-99); MONOCYTES # (AUTO) 0.4 10^3/uL (0.0-1.0); MONOCYTES % (AUTO) 9 % (0-12); NEUTROPHILS # (AUTO) 2.5 10^3/uL (1.8-7.8); NEUTROPHILS % (AUTO) 53 % (42-75); PLATELET COUNT 154 10^3/uL (130-400); WHITE BLOOD COUNT 4.6 10^3/uL (4.3-11.0)
[2022-06-24] MEDS ORDERED: KETOROLAC 15 MG/ML VIAL IVP ONE (12:45)
--- NOTE | 2022-06-24 12:53 | Diagnostic Imaging Report ---
INDICATION: Left flank pain. TECHNIQUE: Multiple contiguous axial images were obtained through the abdomen and pelvis without the use of intravenous contrast. Auto Exposure Controls were utilized during the CT exam to meet ALARA standards for radiation dose reduction. Comparison made to 05/02/2022. FINDINGS: Visualized portions of the lung bases are clear. There were no pleural fluid collections. There is no free intraperitoneal air. The liver shows no focal lesion. Spleen appears unremarkable. Adrenals and pancreas appear unremarkable. The kidneys bilaterally show no radiopaque stone or hydronephrosis. Visualized bowel loops show no overt obstruction. There is no pelvic mass or free fluid. IMPRESSION: No acute abnormality visualized in the abdomen or pelvis. Dictated by: Dictated on workstation # [id number]
[2022-06-24 12:58] LABS: BILIRUBIN,TOTAL 0.5 MG/DL (0.1-1.0); CALCIUM 8.9 MG/DL (8.5-10.1); CREATININE SERUM 2.51 MG/DL (0.60-1.30); TOTAL PROTEIN 6.6 GM/DL (6.4-8.2)
[2022-06-24 12:59] LABS: ALBUMIN 3.8 GM/DL (3.2-4.5)
[2022-06-24] MEDS ORDERED: CEFP100T2 PO (13:17)
== END 2022-06-24 13:30 | disposition home or self-care (01) ==
LOC: EDUNIT# 11:57 → ER FS 11:58
DX: N30.00 Acute cystitis without hematuria (principal); R32 Unspecified urinary incontinence; E66.01 Morbid (severe) obesity due to excess calories; E11.9 Type 2 diabetes mellitus without complications; Z79.4 Long term (current) use of insulin; Z28.310 Unvaccinated for COVID-19
CPT/HCPCS: 36415; 74176; 80053; 81000; 83605; 83690; 85025

== ENCOUNTER 2022-06-28 13:47 | Emergency (ER) | payer MEDICAID ==
[~2022-06-28 13:47] MED LIST changes: +CEFP100T2 PO
[2022-06-28] MEDS ORDERED: morphine INJ 10 MG/ML 1ML (SYR OR VIAL) IM STA (14:13)
[2022-06-28] MEDS ORDERED: KETOROLAC 30 MG/ML VIAL IM STA (14:13)
[2022-06-28] MEDS ORDERED: DOXYCYCLINE 100 MG (VIBRAMYCIN) TABLET PO STA (14:15)
--- NOTE | 2022-06-28 14:22 | ED Lower Extremity ---
General Chief Complaint: Lower Extremity Stated Complaint: RT LEG PAIN Nursing Triage Note: Patient reports right leg swelling and pain since yesterday. She states she recently had a blood clot removed from her right leg. Source: patient, EMS History of Present Illness Date Seen by Provider: Jun 28, 2022 Time Seen by Provider: 13:55 Initial Comments 67 yo female presenting by EMS with complaints of pain in right thigh x 2 days but notes that both of her thighs have been hurting, just worse on right side around old scar tissue. She has a history of a blood clot that had to be removed there "a long time ago" but could not tell me when specifically. She is taking a blood thinner for blood clots in her medical history. She was here 4 days ago and treated for UTI. She felt the pain was worse today so she had EMS transport her to be evaluated. She denies fever, redness to her leg, acute trauma to her legs. She is morbidly obese and does not ambulate very much. She is requesting medicine for pain in her leg and also wants the staff to clean her and change her as she has had a bowel movement and urinated on herself due to the pain in her leg. Onset: yesterday Severity: severe Pain/Injury Location: right thigh Method of Injury: unknown Modifying Factors: Worse With Movement Allergies and Home Medications Allergies Uncoded Allergies: IV CONTRAST (Adverse Reaction, Mild, HIVES, 09/17/18) Patient Home Medication List Home Medication List Reviewed: Yes Acetaminophen (Tylenol Extra Strength) 500 Mg Tablet, 1,000 MG PO Q8H PRN for PAIN-MILD (1-4), (Reported) Entered as Reported by: FERNANDO ARELLANO on 11/29/21 1408 Amitriptyline HCl (Amitriptyline HCl) 50 Mg Tablet, 50 MG PO DAILY, (Reported) Entered as Reported by: FERNANDO ARELLANO on 11/29/21 1405 Aspirin (Aspirin EC) 81 Mg Tablet.dr, 81 MG PO DAILY, (Reported) Entered as Reported by: NERIS PRIETO on 10/26/20 0851 Atorvastatin Calcium (Atorvastatin Calcium) 40 Mg Tablet, 40 MG PO HS, (Reported) Entered as Reported by: FERNANDO ARELLANO on 11/29/21 1403 Cefdinir (Cefdinir) 300 Mg Capsule, 300 MG PO BID Prescribed by: CORNELIA MARQUEZ on 12/02/21 1232 Cefpodoxime Proxetil (Cefpodoxime Proxetil) 100 Mg Tablet, 100 MG PO BID Prescribed by: ILDEFONSO HU MD on 06/24/22 1317 Doxycycline Hyclate (Doxycycline Hyclate) 100 Mg Tablet, 100 MG PO BID Prescribed by: MIHIR BARNEY on 06/28/22 1550 Fluoxetine HCl (Fluoxetine HCl) 40 Mg Capsule, 40 MG PO BID, (Reported) Entered as Reported by: NERIS PRIETO on 10/26/20 0851 Furosemide (Furosemide) 40 Mg Tablet, 40 MG PO DAILY, (Reported) Entered as Reported by: FERNANDO ARELLANO on 11/29/21 1404 Gabapentin (Gabapentin) 600 Mg Tablet, 600 MG PO TID PRN for NERVE PAIN, (Reported) Entered as Reported by: MINESH CANALES on 09/17/181846 Hydrochlorothiazide (Hydrochlorothiazide) 25 Mg Tablet, 25 MG PO DAILY Prescribed by: CORNELIA MARQUEZ on 12/02/21 1232 Ibuprofen (Ibuprofen) 800 Mg Tablet, 800 MG PO TID PRN for PAIN-MILD (1-4), (Reported) Entered as Reported by: STACIE BERNAL on 05/15/19 1015 Losartan Potassium (Losartan Potassium) 50 Mg Tablet, 50 MG PO DAILY, (Reported) Entered as Reported by: MINESH CANALES on 09/17/181846 Metformin HCl (Metformin HCl) 1,000 Mg Tablet, 1,000 MG PO BID WITH MEALS, (Reported) Entered as Reported by: MINESH CANALES on 09/17/181846 Oxybutynin Chloride (Oxybutynin Chloride) 5 Mg Tablet, 5 MG PO TID PRN for OVERACTIVE BLADDER, (Reported) Entered as Reported by: MINESH CANALES on 09/17/181846 Rivaroxaban (Xarelto) 10 Mg Tablet, 10 MG PO DAILY, (Reported) Entered as Reported by: FERNANDO ARELLANO on 11/29/21 1404 Review of Systems Constitutional: chills; No fever; malaise EENTM: no symptoms reported Respiratory: no symptoms reported Cardiovascular: no symptoms reported Gastrointestinal: no symptoms reported Genitourinary: see HPI Musculoskeletal: see HPI Skin: No change in color Psychiatric/Neurological: Anxiety Past Uzphkni-Dhximr-Zvwkdf Hx Patient Social History Tobacco Use?: No Substance use?: No Alcohol Use?: No Pt feels they are or have been: No Immunizations Up To Date Tetanus Booster (TDap): Unknown First/Initial COVID19 Vaccinat: NOT VACCINATED Second COVID19 Vaccination Get: NOT VACCINATED Third COVID19 Vaccination Date: NOT VACCINATED Seasonal Allergies Seasonal Allergies: No Past Medical History Surgery/Hospitalization HX: MRSA APPY C Section Bladder Surgery Stroke with R side residual Cataracts Dilation Urethral structurre HTN Cheek Cellulitis DVT right leg Surgeries: Yes (cystoscopies) Appendectomy, Bladder Surgery, Section, Gallbladder, Tonsillectomy Respiratory: Yes COPD Cardiac: Yes High Cholesterol, Hypertension Neurological: Yes Neuropathy, Stroke Genitourinary: Yes (urethral strictures) UTI-Chronic Gastrointestinal: Yes Gall Bladder Disease Musculoskeletal: Yes Arthritis, Chronic Back Pain Endocrine: Yes Diabetes, Insulin dep HEENT: Yes (decreasing vision with age and due to DM) Hearing Impairment: Denies Cancer: No Psychosocial: No Depression Integumentary: Yes (L ORBITAL CELLULITIS, 2018 CHEEK CELLULITIS) Recent Skin Changes Blood Disorders: No Family Medical History Patient reports no known family medical history. Diabetes, Hypertension Physical Exam Vital Signs Vital Signs - First Documented 06/28/22 13:52 Temp 36.7 Pulse 71 Resp 18 B/P (MAP) 145/73 (97) Pulse Ox 100 O2 Delivery Room Air Capillary Refill : Less Than 3 Seconds Height, Weight, BMI Height: 5'6.00" Weight: 290lbs. 1.0oz. 131.024219zn; BMI Method:Stated General Appearance: no apparent distress, obese HEENT: PERRL/EOMI Neck: non-tender, full range of motion, supple, normal inspection Cardiovascular: normal peripheral pulses, regular rate, rhythm Respiratory: chest non-tender, lungs clear, normal breath sounds Legs: right leg soft tissue tenderness (she complains of tenderness with light palpation of her thigh on my exam, but was noted by the nursing staff as they cleaned feces and urine off of her lack and groin that she did not react with them cleaning and scrubbing the area to remove dried feces) Neurologic/Psychiatric: alert, oriented x 3 Skin: normal color, warm/dry Progress/Results/Core Measures Results/Orders My Orders Orders - MIHIR BARNEY MD Us Venous Lower Ext Haley (06/28/22 13:59) Ketorolac Injection (Toradol Injection) (06/28/22 14:13) Morphine Injection (Morphine Injection (06/28/22 14:13) Doxycycline Hyclate Tablet (Vibramycin T (06/28/22 14:15) Vital Signs/I&O 06/28/22 06/28/22 13:52 15:56 Temp 36.7 Pulse 71 72 Resp 18 16 B/P (MAP) 145/73 (97) 137/75 Pulse Ox 100 98 O2 Delivery Room Air Room Air Blood Pressure Mean: 97 Progress Progress Note #1: Progress Note Potential diagnosis of DVT in lower extremity, scar tissue, malingering, musculoskeletal strain and pain. Order bilatel LE ultrasounds to look for signs of acute DVT. Toradol 30 mg IM with Morphine 4 mg IM for pain. On review of her prior culture results she has had E. Coli resistant to cephalosporins but susceptible to minocycline so will change to doxycycline to provide more specific coverage for her UTI diagnosed June 24. Progress Note #2: Progress Note Ultrasound of BLE was a limited exam due to patient's body habitus but no definite DVT process seen. Continue on her home medicines and check with Dr. Acharya for follow up about her increased thigh pain. Change her antibiotic to doxycycline based on her most recent urine culture. Diagnostic Imaging Diagonstic Imaging: Ultrasound Plain Films/CT/US/NM/MRI: leg Comments [facility], [place] NAME: MORALES WALKER [facility] REC#: [id number] PT STATUS: REG ER : 1955 PHYSICIAN: MIHIR BARNEY MD ADMIT DATE: 06/28/22/ER FS Signed Date of Exam:06/28/22 US VENOUS LOWER EXT HALEY PROCEDURE: US Venous Lower Ext Haley. INDICATION: Bilateral leg pain TECHNIQUE: Multiple real-time grayscale images were obtained over the lower extremities in various projections, bilaterally. Additional duplex Doppler and color Doppler images were also obtained. CORRELATION STUDY: None FINDINGS: Significant limitations on this study given patient's underlying body habitus and lower extremity edema. Color and grayscale sonographic images demonstrate no intraluminal defect within the visualized portion of the common femoral, superficial femoral and/or popliteal veins to suggest thrombus formation. These vessels demonstrate normal response to compression and augmentation. Bilateral lower extremity edema, right greater than left. IMPRESSION: 1. Significant limitations on this bilateral lower extremity venous Doppler examination. No definitive evidence for deep venous thrombosis. Dictated by: Dictated on workstation # [id number] Dict: 06/28/22 1550 Trans: 06/28/22 1552 DO [id number] Interpreted by: URSULA RUBY DO Electronically signed by: URSULA RUBY DO 06/28/22 155 Reviewed: Reviewed by Me Departure Impression Primary Impression: Acute thigh pain Qualified Codes: M79.651 - Pain in right thigh Additional Impression: Pain of left thigh Disposition: HOME, SELF-CARE Condition: Stable Departure-Patient Inst. Decision time for Depature: 15:49 Referrals: NICOLE ACHARYA MD (PCP) Primary Care Physician Patient Instructions: Muscle and Bone Pain (DC) Add. Discharge Instructions: Based on your last urine culture you should respond better by taking Doxycyline antibiotic instead of the Cephalosporin medicine you started 4 days ago. The ultrasound was not showing a blood clot in either leg. The pain may be from scar tissue or muscle pain. Check back with Dr. Acharya about your pain and symptoms. All discharge instructions reviewed with patient and/or family. Voiced understanding. Scripts Doxycycline Hyclate (Doxycycline Hyclate) 100 Mg Tablet 100 MG PO BID for UTI for 10 Days, #20 TAB 0 Refills Prov: MIHIR BARNEY MD 06/28/22 MIHIR BARNEY MD Jun 28, 2022 14:22
[2022-06-28] MEDS ORDERED: DOXY100T2 PO (15:50)
--- NOTE | 2022-06-28 15:53 | Diagnostic Imaging Report ---
PROCEDURE: US Venous Lower Ext Yonatan. INDICATION: Bilateral leg pain TECHNIQUE: Multiple real-time grayscale images were obtained over the lower extremities in various projections, bilaterally. Additional duplex Doppler and color Doppler images were also obtained. CORRELATION STUDY: None FINDINGS: Significant limitations on this study given patient's underlying body habitus and lower extremity edema. Color and grayscale sonographic images demonstrate no intraluminal defect within the visualized portion of the common femoral, superficial femoral and/or popliteal veins to suggest thrombus formation. These vessels demonstrate normal response to compression and augmentation. Bilateral lower extremity edema, right greater than left. IMPRESSION: 1. Significant limitations on this bilateral lower extremity venous Doppler examination. No definitive evidence for deep venous thrombosis. Dictated by: Dictated on workstation # [id number]
[2022-06-28 15:56] VITALS: BP 137/75
== END 2022-06-28 16:00 | disposition home or self-care (01) ==
LOC: EDUNIT# 13:47 → ER FS 13:53
DX: M79.651 Pain in right thigh (principal); M79.652 Pain in left thigh; E66.01 Morbid (severe) obesity due to excess calories; E11.9 Type 2 diabetes mellitus without complications; Z79.4 Long term (current) use of insulin; Z86.718 Personal history of other venous thrombosis and embolism; Z79.01 Long term (current) use of anticoagulants; Z28.310 Unvaccinated for COVID-19
CPT/HCPCS: 93970

== ENCOUNTER 2022-07-08 13:13 | Emergency (ER) | payer MEDICAID ==
[~2022-07-08 13:13] MED LIST changes: +DOXY100T2 PO
--- NOTE | 2022-07-08 13:20 | ED Fall/Injury ---
General Stated Complaint: BREAST INJ Source: patient, EMS, old records Exam Limitations: no limitations History of Present Illness Date Seen by Provider: Jul 08, 2022 Time Seen by Provider: 13:14 Initial Comments 67yoF with PMH of morbid obesity, CVA, DVT on blood thinners, HTN, DM coming in via EMS from home after she was standing from her wheelchair getting ready to go to the bathroom, her shirt caught onto the edge of the wheelchair, and she fell to the ground. Happened roughly an hour prior to arrival. Called EMS, patient was on the floor with her caregivers. Did hit the left side of her face and lef t side of her chest wall on the ground. Did not pass out, remembers all events, no nausea or vomiting, no neck or back pain that is new, no new weakness or numbness. Otherwise denying any other acute complaints. Allergies and Home Medications Allergies Uncoded Allergies: IV CONTRAST (Adverse Reaction, Mild, HIVES, 09/17/18) Patient Home Medication List Home Medication List Reviewed: Yes Acetaminophen (Tylenol Extra Strength) 500 Mg Tablet, 1,000 MG PO Q8H PRN for PAIN-MILD (1-4), (Reported) Entered as Reported by: FERNANDO ARELLANO on 11/29/21 1408 Amitriptyline HCl (Amitriptyline HCl) 50 Mg Tablet, 50 MG PO DAILY, (Reported) Entered as Reported by: FERNANDO ARELLANO on 11/29/21 1405 Aspirin (Aspirin EC) 81 Mg Tablet.dr, 81 MG PO DAILY, (Reported) Entered as Reported by: NERIS PRIETO on 10/26/20 0851 Atorvastatin Calcium (Atorvastatin Calcium) 40 Mg Tablet, 40 MG PO HS, (Reported) Entered as Reported by: FERNANDO ARELLANO on 11/29/21 1403 Cefdinir (Cefdinir) 300 Mg Capsule, 300 MG PO BID Prescribed by: CORNELIA MARQUEZ on 12/02/21 1232 Cefpodoxime Proxetil (Cefpodoxime Proxetil) 100 Mg Tablet, 100 MG PO BID Prescribed by: ILDEFONSO HU MD on 06/24/22 1317 Doxycycline Hyclate (Doxycycline Hyclate) 100 Mg Tablet, 100 MG PO BID Prescribed by: MIHIR BARNEY on 06/28/22 1550 Fluoxetine HCl (Fluoxetine HCl) 40 Mg Capsule, 40 MG PO BID, (Reported) Entered as Reported by: NERIS PRIETO on 10/26/20 0851 Furosemide (Furosemide) 40 Mg Tablet, 40 MG PO DAILY, (Reported) Entered as Reported by: FERNANDO ARELLANO on 11/29/21 1404 Gabapentin (Gabapentin) 600 Mg Tablet, 600 MG PO TID PRN for NERVE PAIN, (Repo rted) Entered as Reported by: MINESH CANALES on 09/17/18 184 Hydrochlorothiazide (Hydrochlorothiazide) 25 Mg Tablet, 25 MG PO DAILY Prescribed by: CORNELIA MARQUEZ on 12/02/21 1232 Ibuprofen (Ibuprofen) 800 Mg Tablet, 800 MG PO TID PRN for PAIN-MILD (1-4), (Reported) Entered as Reported by: STACIE BERNAL on 05/15/19 1015 Losartan Potassium (Losartan Potassium) 50 Mg Tablet, 50 MG PO DAILY, (Reported) Entered as Reported by: MINESH CANALES on 09/17/18 184 Metformin HCl (Metformin HCl) 1,000 Mg Tablet, 1,000 MG PO BID WITH MEALS, (Reported) Entered as Reported by: MINESH CANALES on 09/17/181846 Oxybutynin Chloride (Oxybutynin Chloride) 5 Mg Tablet, 5 MG PO TID PRN for OVERACTIVE BLADDER, (Reported) Entered as Reported by: MINESH CANALES on 09/17/181846 Rivaroxaban (Xarelto) 10 Mg Tablet, 10 MG PO DAILY, (Reported) Entered as Reported by: FERNANDO ARELLANO on 11/29/21 1404 Review of Systems Review of Systems Constitutional: No fever Eyes: No Symptoms Reported Ears, Nose, Mouth, Throat: no symptoms reported Respiratory: no symptoms reported Cardiovascular: no symptoms reported Gastrointestinal: no symptoms reported Genitourinary: no symptoms reported Skin: no symptoms reported Psychiatric/Neurological: No Symptoms Reported All Other Systems Reviewed Negative Unless Noted: Yes Past Nydiiww-Qhoafw-Udomel Hx Immunizations Up To Date Tetanus Booster (TDap): Unknown First/Initial COVID19 Vaccinat: NOT VACCINATED Second COVID19 Vaccination Get: NOT VACCINATED Third COVID19 Vaccination Date: NOT VACCINATED Seasonal Allergies Seasonal Allergies: No Past Medical History Surgery/Hospitalization HX: MRSA APPY C Section Bladder Surgery Stroke with R side residual Cataracts Dilation Urethral structurre HTN Cheek Cellulitis DVT right leg Surgeries: Yes (cystoscopies) Appendectomy, Bladder Surgery, Section, Gallbladder, Tonsillectomy Respiratory: Yes COPD Cardiac: Yes High Cholesterol, Hypertension Neurological: Yes Neuropathy, Stroke Genitourinary: Yes (urethral strictures) UTI-Chronic Gastrointestinal: Yes Gall Bladder Disease Musculoskeletal: Yes Arthritis, Chronic Back Pain Endocrine: Yes Diabetes, Insulin dep HEENT: Yes (decreasing vision with age and due to DM) Hearing Impairment: Denies Cancer: No Psychosocial: No Depression Integumentary: Yes (L ORBITAL CELLULITIS, 2018 CHEEK CELLULITIS) Recent Skin Changes Blood Disorders: No Family Medical History Patient reports no known family medical history. Diabetes, Hypertension Physical Exam Vital Signs Vital Signs - First Documented 07/08/22 13:13 Temp 36.2 Pulse 75 Resp 16 B/P (MAP) 152/83 (106) Pulse Ox 96 O2 Delivery Room Air Capillary Refill : Height, Weight, BMI Height: 5'6.00" Weight: 290lbs. 1.0oz. [id number]; BMI Method:Stated General Appearance: no apparent distress, obese, other (Smells of urine) HEENT: PERRL/EOMI, normal ENT inspection, pharynx normal Neck: non-tender, full range of motion, supple, normal inspection Cardiovascular: regular rate, rhythm, no murmur Respiratory: chest non-tender, lungs clear, normal breath sounds, no respiratory distress, no accessory muscle use Gastrointestinal: normal bowel sounds, non tender, soft; No distended, No guarding, No rebound Back: normal inspection, no CVA tenderness, no vertebral tenderness Extremities: normal range of motion, non-tender, normal inspection, no calf tenderness, normal capillary refill Neurologic/Psychiatric: editing internship II-XII nml as tested, alert, normal mood/affect, oriented x 3, other (Patient at her baseline) Skin: normal color, warm/dry [place] Coma Score Best Eye Response: (4) Open Spontaneously Best Verbal Response: (5) Oriented Best Motor Response: (6) Obeys Commands Progress/Results/Core Measures Results/Orders My Orders Orders - CRISTY MCKINLEY MD Ct Head/Cervical Spine Wo (07/08/22 13:16) Chest 1 View Ap/Pa Only (07/08/22 13:16) Acetaminophen Tablet (Tylenol Tablet) (07/08/22 13:30) Medications Given in ED Current Medications Medications Dose Ordered Sig/Suzi Route Start Time Stop Time Status Last Admin Dose Admin Acetaminophen 1,000 mg ONCE ONCE PO 07/08/22 13:30 07/08/22 13:31 DC 07/08/22 13:39 1,000 MG Vital Signs/I&O 07/08/22 13:13 Temp 36.2 Pulse 75 Resp 16 B/P (MAP) 152/83 (106) Pulse Ox 96 O2 Delivery Room Air Progress Progress Note : Progress Note 67-year-old female presenting after mechanical fall essentially tripping. ABCs were intact, GCS 15, vital stable on presentation. Physical exam with no obvious bruising or open wounds that are new. Neuro exam unremarkable and she is at her baseline. CT head and cervical spine ordered mostly due to age and she is on blood thinners. On my interpretation I do not see any large intracranial hemorrhage or obvious cervical spine fracture, pending radiology review. Chest x-ray also similar to prior with no acute abnormalities including no obvious pneumothorax. On review of the radiology read, they agree with these findings. Patient given Tylenol for pain control. Patient given essentially a bed bath by nursing since she smells of urine. I believe she is otherwise stable for discharge with outpatient follow-up. She was sent home with strict return precautions. The patient does reportedly have caregivers. Diagnostic Imaging Diagonstic Imaging: Xray (chest), CT (head and cspine) Comments NAME: MORALES WALKER [facility] REC#: [id number] PT STATUS: REG ER : 1955 PHYSICIAN: CRISTY MCKINLEY MD ADMIT DATE: 07/08/22/ER FS Draft Date of Exam:07/08/22 CHEST 1 VIEW AP/PA ONLY HISTORY: Fall with left chest pain. TECHNIQUE: Frontal view of the chest COMPARISON: 01/24/2022 FINDINGS: There is stable mild cardiomegaly which is unchanged since prior study. There is aortic atherosclerosis. Lung volumes are normal. No consolidation is seen. No joint effusion or pneumothorax is seen. There appear to be old left-sided rib fractures. No definite acute fracture is seen. IMPRESSION: 1. Old left-sided rib fractures with no acute abnormality seen in the chest. Dictated on workstation # [id number] Dict: 07/08/22 1340 Trans: 07/08/22 1349 [id number] Interpreted by: GEORGI FITZGERALD MD Electronically signed by: NAME: MORALES WALKER [facility] REC#: [id number] PT STATUS: REG ER : 1955 PHYSICIAN: CRISTY MCKINLEY MD ADMIT DATE: 07/08/22/ER FS Draft Date of Exam:07/08/22 CT HEAD/CERVICAL SPINE WO PROCEDURE: CT head and CT cervical spine without contrast. TECHNIQUE: Multiple contiguous axial images were obtained through the brain and cervical spine without the use of intravenous contrast. Sagittal and coronal reformations through the cervical spine were then performed. Auto Exposure Controls were utilized during the CT exam to meet ALARA standards for radiation dose reduction. INDICATION: Anticoagulated patient fell and struck head. COMPARISON: The study is compared with exams 05/02/2022. FINDINGS: CT HEAD: There is no intracranial hemorrhage, hydrocephalus, cerebral edema, mass, mass effect, nor evidence for an elevation of the intracerebral pressures. There is no calvarial fracture deformity. There are no abnormal extra-axial fluid collections. No change from prior. Some chronic white matter disease, likely small vessel sequelae, is stable. Cerebral cortical volume is stable and unremarkable for age. No hemo-sinus or pneumocephalus. There are no abnormal extra-axial collections. CT CERVICAL SPINE: Neck is held in flexion with loss of normal cervical lordosis. This is unchanged from prior. No facet dislocation or christelle listhesis. Craniocervical relationship and the central skull base are intact. No cervical spinal fracture or traumatic malalignment. IMPRESSION: Stable chronic findings at CT head and cervical spine. Dictated on workstation # [id number] Dict: 07/08/22 1343 Trans: 07/08/22 1354 [id number] Departure Impression Primary Impression: Frequent falls Additional Impression: Chest wall pain Disposition: 01 HOME, SELF-CARE Condition: Stable Departure-Patient Inst. Decision time for Depature: 14:10 Referrals: NICOLE ACHARYA MD (PCP) Primary Care Physician Patient Instructions: Preventing Falls in Older Adults Add. Discharge Instructions: Take Tylenol as needed for pain, you can also ice the area or use a heating pad, whichever feels better. Follow-up with your regular doctor if having other concerns. CRISTY MCKINLEY MD Jul 08, 2022 13:20
[2022-07-08] MEDS ORDERED: ACETAMINOPHEN 500 MG TAB (TYLENOL) PO ONE (13:30)
--- NOTE | 2022-07-08 13:43 | Diagnostic Imaging Report ---
HISTORY: Fall with left chest pain. TECHNIQUE: Frontal view of the chest COMPARISON: 01/24/2022 FINDINGS: There is stable mild cardiomegaly which is unchanged since prior study. There is aortic atherosclerosis. Lung volumes are normal. No consolidation is seen. No joint effusion or pneumothorax is seen. There appear to be old left-sided rib fractures. No definite acute fracture is seen. IMPRESSION: 1. Old left-sided rib fractures with no acute abnormality seen in the chest. Dictated by: Dictated on workstation # [id number]
--- NOTE | 2022-07-08 13:55 | Diagnostic Imaging Report ---
PROCEDURE: CT head and CT cervical spine without contrast. TECHNIQUE: Multiple contiguous axial images were obtained through the brain and cervical spine without the use of intravenous contrast. Sagittal and coronal reformations through the cervical spine were then performed. Auto Exposure Controls were utilized during the CT exam to meet ALARA standards for radiation dose reduction. INDICATION: Anticoagulated patient fell and struck head. COMPARISON: The study is compared with exams 05/02/2022. FINDINGS: CT HEAD: There is no intracranial hemorrhage, hydrocephalus, cerebral edema, mass, mass effect, nor evidence for an elevation of the intracerebral pressures. There is no calvarial fracture deformity. There are no abnormal extra-axial fluid collections. No change from prior. Some chronic white matter disease, likely small vessel sequelae, is stable. Cerebral cortical volume is stable and unremarkable for age. No hemo-sinus or pneumocephalus. There are no abnormal extra-axial collections. CT CERVICAL SPINE: Neck is held in flexion with loss of normal cervical lordosis. This is unchanged from prior. No facet dislocation or christelle listhesis. Craniocervical relationship and the central skull base are intact. No cervical spinal fracture or traumatic malalignment. IMPRESSION: Stable chronic findings at CT head and cervical spine. Dictated by: Dictated on workstation # [id number]
[2022-07-08 14:13] VITALS: BP 152/83
== END 2022-07-08 14:13 | disposition home or self-care (01) ==
LOC: EDUNIT# 13:13 → ER FS 13:14
DX: R07.89 Other chest pain (principal); R29.6 Repeated falls; E66.01 Morbid (severe) obesity due to excess calories; Z28.310 Unvaccinated for COVID-19; Z86.718 Personal history of other venous thrombosis and embolism; Z79.01 Long term (current) use of anticoagulants; W01.198A Fall on same level from slipping, tripping and stumbling with subsequent striking against other object, initial encounter; W23.1XXA Caught, crushed, jammed, or pinched between stationary objects, initial encounter
CPT/HCPCS: 70450; 71045; 72125

== ENCOUNTER → 2022-07-27 | Outpatient (CLI) | payer MEDICAID ==
[2022-07-27 13:22] LABS: BILIRUBIN,URINE NEGATIVE (NEGATIVE); CLARITY,URINE CLOUDY; COLOR,URINE YELLOW; GLUCOSE, URINE (UA) NEGATIVE (NEGATIVE); KETONES,URINE NEGATIVE (NEGATIVE); LEUKOCYTE ESTERASE ,URINE TRACE (NEGATIVE); NITRITE,URINE NEGATIVE (NEGATIVE); PROTEIN,URINE NEGATIVE (NEGATIVE); RBC,URINE RARE /HPF
[2022-07-27 13:23] LABS: BACTERIA,URINE LARGE /HPF
== END ==
LOC: IHC 12:39
PROVIDERS: ATTEND Pediatrics
DX: N18.4 Chronic kidney disease, stage 4 (severe) (principal); N17.9 Acute kidney failure, unspecified
CPT/HCPCS: 81000; 87077; 87088

== ENCOUNTER 2022-08-22 10:46 | Emergency (ER) | payer MEDICAID ==
--- NOTE | 2022-08-22 11:02 | ED GU-Female ---
General Chief Complaint: - Reproductive Stated Complaint: UTI SYMPTOMS; RASH Source: patient, EMS, old records Exam Limitations: no limitations History of Present Illness Date Seen by Provider: August 22, 2022 Time Seen by Provider: 10:48 Initial Comments 67yoF coming in due to burning with urination for the past week and itchy skin for the past couple of months. She has not reached out to her PCP as of yet. No fever, n/v/d, weakness, numbness, chest pain, SOB, or any other concerns. Nobody else in the house has itchy skin or rash. Allergies and Home Medications Allergies Uncoded Allergies: IV CONTRAST (Adverse Reaction, Mild, HIVES, 09/17/18) Patient Home Medication List Home Medication List Reviewed: Yes Acetaminophen (Tylenol Extra Strength) 500 Mg Tablet, 1,000 MG PO Q8H PRN for PAIN-MILD (1-4), (Reported) Entered as Reported by: FERNANDO ARELLANO on 11/29/21 1408 Amitriptyline HCl (Amitriptyline HCl) 50 Mg Tablet, 50 MG PO DAILY, (Reported) Entered as Reported by: FERNANDO ARELLANO on 11/29/21 1405 Aspirin (Aspirin EC) 81 Mg Tablet.dr, 81 MG PO DAILY, (Reported) Entered as Reported by: NERIS PRIETO on 10/26/20 0851 Atorvastatin Calcium (Atorvastatin Calcium) 40 Mg Tablet, 40 MG PO HS, (Reported) Entered as Reported by: FERNANDO ARELLANO on 11/29/21 1403 Cefdinir (Cefdinir) 300 Mg Capsule, 300 MG PO BID Prescribed by: CORNELIA MARQUEZ on 12/02/21 1232 Cefpodoxime Proxetil (Cefpodoxime Proxetil) 100 Mg Tablet, 100 MG PO BID Prescribed by: ILDEFONSO HU MD on 06/24/22 1317 Doxycycline Hyclate (Doxycycline Hyclate) 100 Mg Tablet, 100 MG PO BID Prescribed by: MIHIR BARNEY on 06/28/22 1550 Fluoxetine HCl (Fluoxetine HCl) 40 Mg Capsule, 40 MG PO BID, (Reported) Entered as Reported by: NERIS PRIETO on 10/26/20 0851 Furosemide (Furosemide) 40 Mg Tablet, 40 MG PO DAILY, (Reported) Entered as Reported by: FERNANDO ARELLANO on 11/29/21 1404 Gabapentin (Gabapentin) 600 Mg Tablet, 600 MG PO TID PRN for NERVE PAIN, (Reported) Entered as Reported by: MINESH CANALES on 09/17/181846 Hydrochlorothiazide (Hydrochlorothiazide) 25 Mg Tablet, 25 MG PO DAILY Prescribed by: CORNELIA MARQUEZ on 12/02/21 1232 Ibuprofen (Ibuprofen) 800 Mg Tablet, 800 MG PO TID PRN for PAIN-MILD (1-4), (Reported) Entered as Reported by: STACIE BERNAL on 05/15/19 1015 Losartan Potassium (Losartan Potassium) 50 Mg Tablet, 50 MG PO DAILY, (Reported) Entered as Reported by: MINESH CANALES on 09/17/181846 Metformin HCl (Metformin HCl) 1,000 Mg Tablet, 1,000 MG PO BID WITH MEALS, (Reported) Entered as Reported by: MINESH CANALES on 09/17/181846 Oxybutynin Chloride (Oxybutynin Chloride) 5 Mg Tablet, 5 MG PO TID PRN for OVERACTIVE BLADDER, (Reported) Entered as Reported by: MINESH CANALES on 09/17/181846 Rivaroxaban (Xarelto) 10 Mg Tablet, 10 MG PO DAILY, (Reported) Entered as Reported by: FERNANDO ARELLANO on 11/29/21 1404 Review of Systems Review of Systems Constitutional: No fever EENTM: no symptoms reported Respiratory: no symptoms reported Cardiovascular: no symptoms reported Gastrointestinal: no symptoms reported Genitourinary: see HPI Musculoskeletal: no symptoms reported Skin: see HPI Psychiatric/Neurological: No Symptoms Reported Endocrine: No Symptoms Reported Past Vimhggb-Ldxocb-Brabgj Hx Patient Social History Tobacco Use?: No Use of E-Cig and/or Vaping dev: No Substance use?: No Alcohol Use?: No Pt feels they are or have been: No Immunizations Up To Date Tetanus Booster (TDap): Unknown First/Initial COVID19 Vaccinat: NOT VACCINATED Second COVID19 Vaccination Get: NOT VACCINATED Third COVID19 Vaccination Date: NOT VACCINATED Seasonal Allergies Seasonal Allergies: No Past Medical History Surgery/Hospitalization HX: MRSA APPY C Section Bladder Surgery Stroke with R side residual Cataracts Dilation Urethral structurre HTN Cheek Cellulitis DVT right leg Surgeries: Yes (cystoscopies) Appendectomy, Bladder Surgery, Section, Gallbladder, Tonsillectomy Respiratory: Yes COPD Cardiac: Yes High Cholesterol, Hypertension Neurological: Yes Neuropathy, Stroke Genitourinary: Yes (urethral strictures) UTI-Chronic Gastrointestinal: Yes Gall Bladder Disease Musculoskeletal: Yes Arthritis, Chronic Back Pain Endocrine: Yes Diabetes, Insulin dep HEENT: Yes (decreasing vision with age and due to DM) Hearing Impairment: Denies Cancer: No Psychosocial: No Depression Integumentary: Yes (L ORBITAL CELLULITIS, 2018 CHEEK CELLULITIS) Recent Skin Changes Blood Disorders: No Family Medical History Patient reports no known family medical history. Diabetes, Hypertension Physical Exam Vital Signs Capillary Refill : Height, Weight, BMI Height: 5'6.00" Weight: 290lbs. 1.0oz. [id number]; BMI Method:Stated General Appearance: WD/WN, no apparent distress HEENT: PERRL/EOMI, normal ENT inspection, pharynx normal Neck: non-tender, full range of motion, supple, normal inspection Cardiovascular: regular rate, rhythm Respiratory: chest non-tender, lungs clear, normal breath sounds, no re spiratory distress, no accessory muscle use Gastrointestinal: normal bowel sounds, non tender, soft; No distended, No guarding, No rebound Back: normal inspection, no CVA tenderness Extremities: normal range of motion, non-tender, normal inspection, no calf tenderness, normal capillary refill Neurologic/Psychiatric: no motor/sensory deficits, alert, normal mood/affect Skin: warm/dry, other (areas of excoriation where she is able to reach, no rash where her hands can't reach, hands and feet normal, genitalia normal, oral muco sa normal) Lymphatic: no adenopathy Progress/Results/Core Measures Suspected Sepsis SIRS Temperature: Pulse: Respiratory Rate: Blood Pressure / Mean: Results/Orders Lab Results Laboratory Tests Test 08/22/22 10:50 Range/Units Urine Color YELLOW Urine Clarity TURBID Urine pH 5.5 5-9 Urine Specific [place] 1.025 H 1.016-1.022 Urine Protein 1+ H NEGATIVE Urine Glucose (UA) NEGATIVE NEGATIVE Urine Ketones NEGATIVE NEGATIVE Urine Nitrite POSITIVE H NEGATIVE Urine Bilirubin NEGATIVE NEGATIVE Urine Urobilinogen 0.2 < = 1.0 MG/DL Urine Leukocyte Esterase TRACE H NEGATIVE Urine RBC (Auto) 3+ H NEGATIVE Urine RBC >100 H /HPF Urine WBC 5-10 H /HPF Urine Squamous Epithelial Cells 5-10 /HPF Urine Crystals NONE /LPF Urine Bacteria MODERATE H /HPF Urine Casts NONE /LPF Urine Mucus SMALL H /LPF Urine Culture Indicated YES Urine Opiates Screen POSITIVE H NEGATIVE Urine Oxycodone Screen NEGATIVE NEGATIVE Urine Methadone Screen NEGATIVE NEGATIVE Urine Propoxyphene Screen NEGATIVE NEGATIVE Urine Barbiturates Screen NEGATIVE NEGATIVE Ur Tricyclic Antidepressants Screen NEGATIVE NEGATIVE Urine Phencyclidine Screen NEGATIVE NEGATIVE Urine Amphetamines Screen NEGATIVE NEGATIVE Urine Methamphetamines Screen NEGATIVE NEGATIVE Urine Benzodiazepines Screen NEGATIVE NEGATIVE Urine Cocaine Screen NEGATIVE NEGATIVE Urine Cannabinoids Screen NEGATIVE NEGATIVE My Orders Orders - CRISTY MCKINLEY MD Drug Screen Stat (Urine) (08/22/22 10:56) Ua Culture If Indicated (08/22/22 10:56) Urine Culture (08/22/22 10:50) Cefdinir Capsule (Omnicef Capsule) (08/22/22 11:30) Vital Signs/I&O Capillary Refill : Progress Note : Progress Note 67-year-old female with above history coming in due to burning with urination and itchy skin. ABCs were intact and vitals were stable on presentation. Physical exam with some excoriations on her arms, chest, and upper neck where she is able to reach. There is no rash or amin anywhere where she is unable to reach which makes me think that this is all self driven. No red flags including no mucosal involvement, no fever, no palms or soles involvement, no fever, no new medications, Nikolsky negative. I will recommend lotion with a barrier cream as well as cetirizine for itchiness. Her urinalysis on my interpretation is concerning for infection. Given cefdinir here and will go home with a prescription. I believe she is otherwise stable for discharge with outpatient follow-up. She was sent home with strict return precautions Departure Impression Primary Impression: Cystitis without hematuria Additional Impression: Pruritic condition Disposition: HOME, SELF-CARE Condition: Stable Departure-Patient Inst. Decision time for Depature: 11:35 Referrals: NICOLE ACHARYA MD (PCP) Primary Care Physician Patient Instructions: Urinary Tract Infection, Adult ED Add. Discharge Instructions: The itchiness is likely just dry skin or allergies. An allergy medicine was sent to your pharmacy as well as antibiotics for your UTI. Put lotion on all of the areas as well to help with the dryness. Follow-up with your regular doctor regarding the rash. Scripts Cetirizine HCl (Cetirizine HCl) 10 Mg Tablet 10 MG PO DAILY for 30 Days, #30 TAB Prov: CRISTY MCKINLEY MD 08/22/22 Cefdinir (Cefdinir) 300 Mg Capsule 300 MG PO BID for 7 Days, #14 CAP 0 Refills Prov: CRISTY MCKINLEY MD 08/22/22 CRISTY MCKINLEY MD August 22, 2022 11:02
[2022-08-22 11:04] LABS: BILIRUBIN,URINE NEGATIVE (NEGATIVE); CLARITY,URINE TURBID; COLOR,URINE YELLOW; GLUCOSE, URINE (UA) NEGATIVE (NEGATIVE); KETONES,URINE NEGATIVE (NEGATIVE); LEUKOCYTE ESTERASE ,URINE TRACE (NEGATIVE); NITRITE,URINE POSITIVE (NEGATIVE); PH,URINE 5.5 (5-9); PROTEIN,URINE 1+ (NEGATIVE)
[2022-08-22 11:12] LABS: BACTERIA,URINE MODERATE /HPF; RBC,URINE >100 /HPF
[2022-08-22 11:18] LABS: AMPHETAMINE SCREEN, URINE NEGATIVE (NEGATIVE); BARBITURATE SCREEN URINE NEGATIVE (NEGATIVE); BENZODIAZEPINES SCREEN URINE NEGATIVE (NEGATIVE); CANNABINOID SCREEN, URINE NEGATIVE (NEGATIVE); COCAINE SCREEN URINE NEGATIVE (NEGATIVE); METHADONE STAT NEGATIVE (NEGATIVE); OPIATE SCREEN URINE POSITIVE (NEGATIVE); OXYCODONE STAT NEGATIVE (NEGATIVE); PROPOXYPHENE STAT NEGATIVE (NEGATIVE); TRICYCLIC ANTIDEPRESSANTS SCRE NEGATIVE (NEGATIVE)
[2022-08-22] MEDS ORDERED: CEFD300C3 PO (11:29)
[2022-08-22] MEDS ORDERED: CETI10TA17 PO (11:29)
[2022-08-22] MEDS ORDERED: CEFDINIR 300 MG (OMNICEF) CAP PO ONE (11:30)
[2022-08-22 11:46] VITALS: BP 138/59
== END 2022-08-22 12:46 | disposition home or self-care (01) ==
LOC: EDUNIT# 10:46 → ER FS 10:47
DX: N30.90 Cystitis, unspecified without hematuria (principal); L29.9 Pruritus, unspecified; Z28.310 Unvaccinated for COVID-19
CPT/HCPCS: 80306; 81000; 87088; 99283

== ENCOUNTER 2022-09-11 22:31 | Emergency (ER) | payer MEDICAID ==
[~2022-09-11] VITALS: Ht 167.7 cm; Wt 125.0 kg
[~2022-09-11 22:31] MED LIST changes: +CETI10TA17 PO
--- NOTE | 2022-09-11 22:40 | ED General ---
General Stated Complaint: NAUSEA|VOMITING Source of Information: Patient, EMS Exam Limitations: No Limitations History of Present Illness Date Seen by Provider: September 11, 2022 Time Seen by Provider: 22:30 Initial Comments 67-year-old female presents via EMS for lower abdominal pain, burning with urination and vomiting. Symptoms started this morning. She states she has frequent urinary tract infections and has been on antibiotics most recently August 22 from our emergency department. She denies any fevers or chills. Emesis is nonbloody nonbilious. Abdominal pain is lower, suprapubic. No hematuria. She has vomited 2 times. She received 4 mg of Zofran in route via EMS. All other systems reviewed and negative except documented per HPI. Voice recognition software was used to help create this chart Allergies and Home Medications Allergies Uncoded Allergies: IV CONTRAST (Adverse Reaction, Mild, HIVES, 09/17/18) Patient Home Medication List Home Medication List Reviewed: Yes Acetaminophen (Tylenol Extra Strength) 500 Mg Tablet, 1,000 MG PO Q8H PRN for PAIN-MILD (1-4), (Reported) Entered as Reported by: FERNANDO ARELLANO on 11/29/21 1408 Amitriptyline HCl (Amitriptyline HCl) 50 Mg Tablet, 50 MG PO DAILY, (Reported) Entered as Reported by: FERNANDO ARELLANO on 11/29/21 1405 Aspirin (Aspirin EC) 81 Mg Tablet.dr, 81 MG PO DAILY, (Reported) Entered as Reported by: NERIS PRIETO on 10/26/20 0851 Atorvastatin Calcium (Atorvastatin Calcium) 40 Mg Tablet, 40 MG PO HS, (Reported) Entered as Reported by: FERNANDO ARELLANO on 11/29/21 1403 Cefdinir (Cefdinir) 300 Mg Capsule, 300 MG PO BID Prescribed by: CORNELIA MARQUEZ on 12/02/21 1232 Cefdinir (Cefdinir) 300 Mg Capsule, 300 MG PO BID Prescribed by: CRISTY MCKINLEY on 08/22/22 1129 Cefpodoxime Proxetil (Cefpodoxime Proxetil) 100 Mg Tablet, 100 MG PO BID Prescribed by: ILDEFONSO HU MD on 06/24/22 1317 Cetirizine HCl (Cetirizine HCl) 10 Mg Tablet, 10 MG PO DAILY Prescribed by: CRISTY MCKINLEY on 08/22/22 1129 Doxycycline Hyclate (Doxycycline Hyclate) 100 Mg Tablet, 100 MG PO BID Prescribed by: MIHIR BARNEY on 06/28/22 1550 Fluoxetine HCl (Fluoxetine HCl) 40 Mg Capsule, 40 MG PO BID, (Reported) Entered as Reported by: NERIS PRIETO on 10/26/20 0851 Furosemide (Furosemide) 40 Mg Tablet, 40 MG PO DAILY, (Reported) Entered as Reported by: FERNANDO ARELLANO on 11/29/21 1404 Gabapentin (Gabapentin) 600 Mg Tablet, 600 MG PO TID PRN for NERVE PAIN, (R eported) Entered as Reported by: MINESH CANALES on 09/17/181846 Hydrochlorothiazide (Hydrochlorothiazide) 25 Mg Tablet, 25 MG PO DAILY Prescribed by: CORNELIA MARQUEZ on 12/02/21 1232 Ibuprofen (Ibuprofen) 800 Mg Tablet, 800 MG PO TID PRN for PAIN-MILD (1-4), (Reported) Entered as Reported by: STACIE BERNAL on 05/15/19 1015 Losartan Potassium (Losartan Potassium) 50 Mg Tablet, 50 MG PO DAILY, (Reported) Entered as Reported by: MINESH CANALES on 09/17/181846 Metformin HCl (Metformin HCl) 1,000 Mg Tablet, 1,000 MG PO BID WITH MEALS, (Reported) Entered as Reported by: MINESH CANALES on 09/17/181846 Oxybutynin Chloride (Oxybutynin Chloride) 5 Mg Tablet, 5 MG PO TID PRN for OVERACTIVE BLADDER, (Reported) Entered as Reported by: MINESH CANALES on 09/17/181846 Rivaroxaban (Xarelto) 10 Mg Tablet, 10 MG PO DAILY, (Reported) Entered as Reported by: FERNANDO ARELLANO on 11/29/21 1404 Review of Systems Review of Systems Constitutional: see HPI Past Rrrqsfn-Xgoygq-Snfuuv Hx Patient Social History Tobacco Use?: No Use of E-Cig and/or Vaping dev: No Substance use?: No Alcohol Use?: No Immunizations Up To Date Tetanus Booster (TDap): Unknown First/Initial COVID19 Vaccinat: NOT VACCINATED Second COVID19 Vaccination Get: NOT VACCINATED Third COVID19 Vaccination Date: NOT VACCINATED Seasonal Allergies Seasonal Allergies: No Past Medical History Surgery/Hospitalization HX: MRSA APPY C Section Bladder Surgery Stroke with R side residual Cataracts Dilation Urethral structurre HTN Cheek Cellulitis DVT right leg Surgeries: Yes (cystoscopies) Appendectomy, Bladder Surgery, Section, Gallbladder, Tonsillectomy Respiratory: Yes COPD Cardiac: Yes High Cholesterol, Hypertension Neurological: Yes Neuropathy, Stroke Genitourinary: Yes (urethral strictures) UTI-Chronic Gastrointestinal: Yes Gall Bladder Disease Musculoskeletal: Yes Arthritis, Chronic Back Pain Endocrine: Yes Diabetes, Insulin dep HEENT: Yes (decreasing vision with age and due to DM) Hearing Impairment: Denies Cancer: No Psychosocial: No Depression Integumentary: Yes (L ORBITAL CELLULITIS, 2018 CHEEK CELLULITIS) Recent Skin Changes Blood Disorders: No Family Medical History Patient reports no known family medical history. Diabetes, Hypertension Physical Exam Vital Signs Capillary Refill : Height, Weight, BMI Height: 5'6.00" Weight: 290lbs. 1.0oz. [id number]; BMI Method:Stated General Appearance: No Apparent Distress, WD/WN Eyes: Bilateral Eye Normal Inspection, Bilateral Eye PERRL, Bilateral Eye EOMI HEENT: Normal ENT Inspection, Pharynx Normal Neck: Full Range of Motion, Normal Inspection, Non Tender, Supple Respiratory: Chest Non Tender, Lungs Clear, Normal Breath Sounds, No Accessory Muscle Use, No Respiratory Distress Cardiovascular: Regular Rate, Rhythm, No Murmur, Normal Peripheral Pulses Gastrointestinal: Normal Bowel Sounds, Non Tender, Soft Neurologic/Psychiatric: Alert, Oriented x3, No Motor/Sensory Deficits Skin: Normal Color, Warm/Dry Progress/Results/Core Measures Suspected Sepsis SIRS Temperature: Pulse: Respiratory Rate: Laboratory Tests 09/11/22 22:39: White Blood Count 5.1 Blood Pressure / Mean: Laboratory Tests 09/11/22 22:39: Creatinine 2.49H, Platelet Count 163, Total Bilirubin 0.5 Results/Orders Lab Results Laboratory Tests Test 09/11/22 22:39 Range/Units White Blood Count 5.1 4.3-11.0 10^3/uL Red Blood Count 2.97 L 3.80-5.11 10^6/uL Hemoglobin 9.5 L 11.5-16.0 g/dL Hematocrit 29 L 35-52 % Mean Corpuscular Volume 97 80-99 fL Mean Corpuscular Hemoglobin 32 25-34 pg Mean Corpuscular Hemoglobin Concent 33 32-36 g/dL Red Cell Distribution Width 13.5 10.0-14.5 % Platelet Count 163 130-400 10^3/uL Mean Platelet Volume 8.8 L 9.0-12.2 fL Immature Granulocyte % (Auto) 0 % Neutrophils (%) (Auto) 54 42-75 % Lymphocytes (%) (Auto) 36 12-44 % Monocytes (%) (Auto) 7 0-12 % Eosinophils (%) (Auto) 2 0-10 % Basophils (%) (Auto) 0 0-10 % Neutrophils # (Auto) 2.8 1.8-7.8 10^3/uL Lymphocytes # (Auto) 1.9 1.0-4.0 10^3/uL Monocytes # (Auto) 0.4 0.0-1.0 10^3/uL Eosinophils # (Auto) 0.1 0.0-0.3 10^3/uL Basophils # (Auto) 0.0 0.0-0.1 10^3/uL Immature Granulocyte # (Auto) 0.0 0.0-0.1 10^3/uL Urine Color YELLOW Urine Clarity CLEAR Urine pH 6.0 5-9 Urine Specific Kingsley 1.020 1.016-1.022 Urine Protein TRACE H NEGATIVE Urine Glucose (UA) NEGATIVE NEGATIVE Urine Ketones NEGATIVE NEGATIVE Urine Nitrite NEGATIVE NEGATIVE Urine Bilirubin NEGATIVE NEGATIVE Urine Urobilinogen 0.2 < = 1.0 MG/DL Urine Leukocyte Esterase TRACE H NEGATIVE Urine RBC (Auto) TRACE-I H NEGATIVE Urine RBC NONE /HPF Urine WBC >100 H /HPF Urine Squamous Epithelial Cells 25-50 H /HPF Urine Crystals NONE /LPF Urine Bacteria LARGE H /HPF Urine Casts NONE /LPF Urine Mucus NEGATIVE /LPF Urine Culture Indicated NO Sodium Level 138 135-145 MMOL/L Potassium Level 4.4 3.6-5.0 MMOL/L Chloride Level 107 98-107 MMOL/L Carbon Dioxide Level 20 L 21-32 MMOL/L Anion Gap 11 5-14 MMOL/L Blood Urea Nitrogen 38 H 7-18 MG/DL Creatinine 2.49 H 0.60-1.30 MG/DL Estimat Glomerular Filtration Rate 21 BUN/Creatinine Ratio 15 Glucose Level 211 H 70-105 MG/DL Calcium Level 8.5 8.5-10.1 MG/DL Corrected Calcium 8.7 8.5-10.1 MG/DL Total Bilirubin 0.5 0.1-1.0 MG/DL Aspartate Amino Transf (AST/SGOT) 15 5-34 U/L Alanine Aminotransferase (ALT/SGPT) 12 0-55 U/L Alkaline Phosphatase 65 40-136 U/L Total Protein 6.3 L 6.4-8.2 GM/DL Albumin 3.7 3.2-4.5 GM/DL My Orders Orders - EBONY COURTNEY DO Cbc With Automated Diff (09/11/22 22:36) Comprehensive Metabolic Panel (09/11/22 22:36) Ua Culture If Indicated (09/11/22 22:36) Rocephin 1gm/50 Ml Iv (1xdose) (09/11/22 23:30) Vital Signs/I&O Capillary Refill : Departure Communication (Admissions) Patient is hemodynamically stable with normal vital signs. She is nontoxic with nonsurgical abdominal exam. Mild suprapubic tenderness. She is not tachyc ardic, afebrile. Previous urine culture reviewed and only grew normal clifford. She has completed her antibiotics. We will go ahead and treat her with Keflex here given her symptoms consistent with UTI and history of. Given IV Rocephin prior to discharge. Discharged with p.o. Keflex and Zofran. Impression Primary Impression: UTI (urinary tract infection) Qualified Codes: N30.01 - Acute cystitis with hematuria Additional Impression: Nausea vomiting and diarrhea Disposition: HOME, SELF-CARE Condition: Stable Departure-Patient Inst. Referrals: NICOLE ACHARYA MD (PCP) Primary Care Physician Patient Instructions: Nausea and Vomiting, Adult, Urinary Tract Infection, Adult ED Add. Discharge Instructions: Take the antibiotics as prescribed until they are gone. Increase your fluids and rest. Use Zofran as needed by dissolving under your tongue for nausea. Follow-up with your primary doctor for any nonemergent needs Scripts Ondansetron (Ondansetron Odt) 8 Mg Tab.rapdis 8 MG SL Q6H PRN for NAUSEA/VOMITING for 5 Days, #20 TAB Prov: EBONY COURTNEY DO 09/11/22 Cephalexin (Cephalexin) 500 Mg Tablet 500 MG PO BID for 5 Days, #10 TAB Prov: SHERWINEBONY LOPES DO 09/11/22 EBONY COURTNEY DO September 11, 2022 22:40
[2022-09-11 22:42] LABS: BASOPHILS % (AUTO) 0 % (0-10); EOSINOPHILS # (AUTO) 0.1 10^3/uL (0.0-0.3); EOSINOPHILS % (AUTO) 2 % (0-10); HEMATOCRIT 29 % (35-52); HEMOGLOBIN 9.5 g/dL (11.5-16.0); LYMPHOCYTES # (AUTO) 1.9 10^3/uL (1.0-4.0); LYMPHOCYTES % (AUTO) 36 % (12-44); MEAN CORPUSCULAR HEMOGLOBIN 32 pg (25-34); MEAN CORPUSCULAR HGB CONC 33 g/dL (32-36); MEAN CORPUSCULAR VOLUME 97 fL (80-99); MEAN PLATELET VOLUME 8.8 fL (9.0-12.2); MONOCYTES # (AUTO) 0.4 10^3/uL (0.0-1.0); MONOCYTES % (AUTO) 7 % (0-12); NEUTROPHILS # (AUTO) 2.8 10^3/uL (1.8-7.8); NEUTROPHILS % (AUTO) 54 % (42-75); PLATELET COUNT 163 10^3/uL (130-400); WHITE BLOOD COUNT 5.1 10^3/uL (4.3-11.0)
[2022-09-11 22:43] LABS: BILIRUBIN,URINE NEGATIVE (NEGATIVE); CLARITY,URINE CLEAR; COLOR,URINE YELLOW; GLUCOSE, URINE (UA) NEGATIVE (NEGATIVE); KETONES,URINE NEGATIVE (NEGATIVE); LEUKOCYTE ESTERASE ,URINE TRACE (NEGATIVE); NITRITE,URINE NEGATIVE (NEGATIVE); PROTEIN,URINE TRACE (NEGATIVE)
[2022-09-11 22:48] LABS: BACTERIA,URINE LARGE /HPF; SQUAMOUS EPITHELIAL CELL,UR 25-50 /HPF; WBC,URINE >100 /HPF
[2022-09-11 23:08] LABS: ALBUMIN 3.7 GM/DL (3.2-4.5); BILIRUBIN,TOTAL 0.5 MG/DL (0.1-1.0); CALCIUM 8.5 MG/DL (8.5-10.1); CREATININE SERUM 2.49 MG/DL (0.60-1.30); POTASSIUM 4.4 MMOL/L (3.6-5.0); TOTAL PROTEIN 6.3 GM/DL (6.4-8.2)
[2022-09-11] MEDS ORDERED: CEPH500T PO (23:19)
[2022-09-11] MEDS ORDERED: ONDA8TAB13 SL (23:19)
[2022-09-11] MEDS ORDERED: cefTRIAXone IV/IM 1,000 MG in NS (IVPB) 50 ML IV ONE (23:30)
[2022-09-11 23:51] VITALS: BP 131/65
== END 2022-09-11 23:51 | disposition home or self-care (01) ==
LOC: EDUNIT# 22:34 → ER FS 22:35
DX: N39.0 Urinary tract infection, site not specified (principal); R11.2 Nausea with vomiting, unspecified; R19.7 Diarrhea, unspecified; E11.40 Type 2 diabetes mellitus with diabetic neuropathy, unspecified; Z79.4 Long term (current) use of insulin; Z28.310 Unvaccinated for COVID-19
CPT/HCPCS: 36415; 80053; 81000; 85025

== ENCOUNTER 2022-09-23 18:26 | Emergency (ER) | payer MEDICAID ==
[~2022-09-23 18:26] MED LIST changes: +ONDA8TAB13 SL
--- NOTE | 2022-09-23 18:30 | ED GU-Female ---
General Chief Complaint: - Reproductive Stated Complaint: UTI History of Present Illness Date Seen by Provider: Sep 23, 2022 Time Seen by Provider: 18:30 Initial Comments 67-year-old female with a PMH of a recent UTI treated with Cipro for 7 days, and completed treatment 2 days ago, is here with continuing dysuria and polyuria, lower pelvic pain, and bilateral flank pain. Pain is constant, and nonradiating. Pain is more in the pelvic area rather than flanks. Denies fever and chills, abdominal pain, nausea and vomiting, diarrhea. Patient was brought in by EMS because she did not have a ride and cannot drive. Patient only drinks 2 to 3 glasses of water per day. Allergies and Home Medications Allergies Uncoded Allergies: IV CONTRAST (Adverse Reaction, Mild, HIVES, 09/17/18) Patient Home Medication List Home Medication List Reviewed: Yes Acetaminophen (Tylenol Extra Strength) 500 Mg Tablet, 1,000 MG PO Q8H PRN for PAIN-MILD (1-4), (Reported) Entered as Reported by: FERNANDO ARELLANO on 11/29/21 1408 Amitriptyline HCl (Amitriptyline HCl) 50 Mg Tablet, 50 MG PO DAILY, (Reported) Entered as Reported by: FERNANDO ARELLANO on 11/29/21 1405 Aspirin (Aspirin EC) 81 Mg Tablet.dr, 81 MG PO DAILY, (Reported) Entered as Reported by: NERIS PRIETO on 10/26/20 0851 Atorvastatin Calcium (Atorvastatin Calcium) 40 Mg Tablet, 40 MG PO HS, (Reported) Entered as Reported by: FERNANDO ARELLANO on 11/29/21 1403 Cefdinir (Cefdinir) 300 Mg Capsule, 300 MG PO BID Prescribed by: CORNELIA MARQUEZ on 12/02/21 1232 Cefdinir (Cefdinir) 300 Mg Capsule, 300 MG PO BID Prescribed by: CRISTY MCKINLEY on 08/22/22 1129 Cefpodoxime Proxetil (Cefpodoxime Proxetil) 100 Mg Tablet, 100 MG PO BID Prescribed by: ILDEFONSO HU MD on 06/24/22 1317 Cephalexin (Cephalexin) 500 Mg Tablet, 500 MG PO BID Prescribed by: EBONY COURTNEY MD on 09/11/22 2319 Cetirizine HCl (Cetirizine HCl) 10 Mg Tablet, 10 MG PO DAILY Prescribed by: CRISTY MCKINLEY on 08/22/22 1129 Doxycycline Hyclate (Doxycycline Hyclate) 100 Mg Tablet, 100 MG PO BID Prescribed by: MIHIR BARNEY on 06/28/22 1550 Fluoxetine HCl (Fluoxetine HCl) 40 Mg Capsule, 40 MG PO BID, (Reported) Entered as Reported by: NERIS PRIETO on 10/26/20 0851 Furosemide (Furosemide) 40 Mg Tablet, 40 MG PO DAILY, (Reported) Entered as Reported by: FERNANDO ARELLANO on 11/29/21 1404 Gabapentin (Gabapentin) 600 Mg Tablet, 600 MG PO TID PRN for NERVE PAIN, (Reported) Entered as Reported by: MINESH CANALES on 09/17/181846 Hydrochlorothiazide (Hydrochlorothiazide) 25 Mg Tablet, 25 MG PO DAILY Prescribed by: CORNELIA MARQUEZ on 12/02/21 1232 Ibuprofen (Ibuprofen) 800 Mg Tablet, 800 MG PO TID PRN for PAIN-MILD (1-4), (Reported) Entered as Reported by: STACIE BERNAL on 05/15/19 1015 Losartan Potassium (Losartan Potassium) 50 Mg Tablet, 50 MG PO DAILY, (Reported) Entered as Reported by: MINESH CANALES on 09/17/181846 Metformin HCl (Metformin HCl) 1,000 Mg Tablet, 1,000 MG PO BID WITH MEALS, (Reported) Entered as Reported by: MINESH CANALES on 09/17/181846 Ondansetron (Ondansetron Odt) 8 Mg Tab.rapdis, 8 MG SL Q6H PRN for NAUSEA/VOMITING Prescribed by: EBONY COURTNEY MD on 09/11/22 2319 Oxybutynin Chloride (Oxybutynin Chloride) 5 Mg Tablet, 5 MG PO TID PRN for OVERACTIVE BLADDER, (Reported) Entered as Reported by: MINESH CANALES on 09/17/181846 Rivaroxaban (Xarelto) 10 Mg Tablet, 10 MG PO DAILY, (Reported) Entered as Reported by: FERNANDO ARELLANO on 11/29/21 1404 Review of Systems Review of Systems Constitutional: no symptoms reported EENTM: no symptoms reported Respiratory: no symptoms reported Cardiovascular: no symptoms reported Gastrointestinal: no symptoms reported Genitourinary: see HPI, burning, dysuria, frequency, flank pain, pain, urgency Musculoskeletal: no symptoms reported Skin: no symptoms reported Psychiatric/Neurological: No Symptoms Reported Endocrine: No Symptoms Reported Hematologic/Lymphatic: No Symptoms Reported Past Ilyjysw-Rnwsly-Yelkux Hx Immunizations Up To Date Tetanus Booster (TDap): Unknown First/Initial COVID19 Vaccinat: NOT VACCINATED Second COVID19 Vaccination Get: NOT VACCINATED Third COVID19 Vaccination Date: NOT VACCINATED Seasonal Allergies Seasonal Allergies: No Past Medical History Surgery/Hospitalization HX: MRSA APPY C Section Bladder Surgery Stroke with R side residual Cataracts Dilation Urethral structurre HTN Cheek Cellulitis DVT right leg Venous stasis LE DM Type II COPD AKF on Chronic Renal Failure Surgeries: Yes (cystoscopies) Appendectomy, Bladder Surgery, Section, Gallbladder, Tonsillectomy Respiratory: Yes COPD Cardiac: Yes High Cholesterol, Hypertension Neurological: Yes Neuropathy, Stroke Genitourinary: Yes (urethral strictures) UTI-Chronic Gastrointestinal: Yes Gall Bladder Disease Musculoskeletal: Yes Arthritis, Chronic Back Pain Endocrine: Yes Diabetes, Insulin dep HEENT: Yes (decreasing vision with age and due to DM) Hearing Impairment: Denies Cancer: No Psychosocial: No Depression Integumentary: Yes (L ORBITAL CELLULITIS, 2018 CHEEK CELLULITIS) Recent Skin Changes Blood Disorders: No Family Medical History Patient reports no known family medical history. Diabetes, Hypertension Physical Exam Vital Signs Capillary Refill : Height, Weight, BMI Height: 5'6.00" Weight: 290lbs. 1.0oz. 131.706852qc; 44.00 BMI Method:Stated General Appearance: WD/WN, mild distress, obese HEENT: PERRL/EOMI Neck: full range of motion Cardiovascular: regular rate, rhythm Respiratory: lungs clear Gastrointestinal: normal bowel sounds, non tender, soft Pelvic: normal external exam, other (Tenderness in the suprapubic area) Back: normal inspection, CVA tenderness (R) (Mild), CVA tenderness (L) (Mild mild) Extremities: normal range of motion Neurologic/Psychiatric: alert, oriented x 3 Skin: normal color Progress/Results/Core Measures Suspected Sepsis SIRS Temperature: Pulse: Respiratory Rate: Blood Pressure / Mean: Results/Orders My Orders Orders - ILDEFONSO HU MD Ua Culture If Indicated (09/23/22 18:31) Vital Signs/I&O Capillary Refill : Progress Note : Progress Note 1. ACUTE CYSTITIS WITH EARLY PYELONEPHRITIS DEVELOPING: - UA: Positive for nitrates, leukocyte esterase, RBC, WBC -Patient is afebrile, without any nausea or vomiting. In the ER patient's vitals are stable and she is afebrile. - Toradol im STAT in ER -Patient just finished a 7-day course of ciprofloxacin 2 days ago. -Prescription given for cefpodoxime 200 mg twice daily for 7 days -Adequate hydration advised, advised to drink 8 to 10 glasses of water per day -Follow-up with PCP within the next 7 days. -The patient was seen in the ED, and treated appropriately to presentation at a specific point in time. Patient is informed that there is a possibility that disease and illness can evolve and change in acuity rapidly or slowly after patient is discharged from the ER. Precautionary advice given to the patient for immediate return to ER if symptoms worsen or do not resolve, and to seek emergency care sooner rather than later. Pt also advised on the importance of PCP follow up and compliance with management and follow up plan with PCP and/or specialist, as this is part of the management plan. Pt verbally expressed understanding. Departure Impression Primary Impression: Acute cystitis without hematuria Disposition: HOME, SELF-CARE Condition: Stable Departure-Patient Inst. Referrals: NICOLE ACHARYA MD (PCP) Primary Care Physician Patient Instructions: Urinary Tract Infection, Adult (DC), Acute Cystitis (DC) Add. Discharge Instructions: -Prescription given for cefpodoxime 200 mg twice daily for 7 days -Adequate hydration advised, advised to drink 8 to 10 glasses of water per day -Follow-up with PCP within the next 7 days. All discharge instructions reviewed with patient and/or family. Voiced understanding. Scripts Cefpodoxime Proxetil (Cefpodoxime Proxetil) 200 Mg Tablet 200 MG PO BID for 7 Days, #14 TAB Prov: ILDEFONSO HU MD 09/23/22 ILDEFONSO HU MD Sep 23, 2022 18:30
[2022-09-23 18:37] LABS: BILIRUBIN,URINE NEGATIVE (NEGATIVE); CLARITY,URINE CLOUDY; COLOR,URINE YELLOW; GLUCOSE, URINE (UA) NEGATIVE (NEGATIVE); KETONES,URINE NEGATIVE (NEGATIVE); LEUKOCYTE ESTERASE ,URINE 1+ (NEGATIVE); NITRITE,URINE POSITIVE (NEGATIVE); PROTEIN,URINE 2+ (NEGATIVE)
[2022-09-23 18:40] LABS: BACTERIA,URINE LARGE /HPF; SQUAMOUS EPITHELIAL CELL,UR >50 /HPF; WBC,URINE >100 /HPF
[2022-09-23] MEDS ORDERED: KETOROLAC 30 MG/ML VIAL IM ONE (18:45)
[2022-09-23] MEDS ORDERED: CEFP200T2 PO (18:51)
[2022-09-23 19:00] VITALS: BP 127/61
== END 2022-09-23 19:00 | disposition home or self-care (01) ==
LOC: EDUNIT# 18:26 → ER FS 18:27
DX: N30.00 Acute cystitis without hematuria (principal); E11.9 Type 2 diabetes mellitus without complications; Z79.4 Long term (current) use of insulin; Z28.310 Unvaccinated for COVID-19
CPT/HCPCS: 81000; 99284

== ENCOUNTER 2022-10-08 14:23 | Emergency (ER) | payer MEDICAID ==
[~2022-10-08] VITALS: Ht 167.7 cm; Wt 120.2 kg
[~2022-10-08 14:23] MED LIST changes: +CEFP200T2 PO
[2022-10-08] MEDS ORDERED: cefTRIAXone IV/IM 1,000 MG in NS (IVPB) 50 ML IV ONE (14:30)
[2022-10-08] MEDS ORDERED: ACETAMINOPHEN 500 MG TAB (TYLENOL) PO ONE (14:30)
[2022-10-08 14:34] VITALS: BP 162/84
--- NOTE | 2022-10-08 14:35 | ED GU-Female ---
General Chief Complaint: - Reproductive Stated Complaint: NAUSEA Source: patient, EMS, old records Exam Limitations: no limitations History of Present Illness Date Seen by Provider: Oct 08, 2022 Time Seen by Provider: 14:26 Initial Comments 67-year-old female with past medical history of chronic UTIs, A-fib, hypertension, hyperlipidemia coming in via EMS from home due to burning with urination. She did finish her antibiotics from recently, but the burning is now back and worse. Has had nausea for couple weeks as well. Denies any fever, chest pain, shortness of breath, severe abdominal pain, focal weakness or numbness, or any other concerns. Allergies and Home Medications Allergies Uncoded Allergies: IV CONTRAST (Adverse Reaction, Mild, HIVES, 09/17/18) Patient Home Medication List Home Medication List Reviewed: Yes Acetaminophen (Tylenol Extra Strength) 500 Mg Tablet, 1,000 MG PO Q8H PRN for PAIN-MILD (1-4), (Reported) Entered as Reported by: FERNANDO ARELLANO on 11/29/21 1408 Amitriptyline HCl (Amitriptyline HCl) 50 Mg Tablet, 50 MG PO DAILY, (Reported) Entered as Reported by: FERNANDO ARELLANO on 11/29/21 1405 Aspirin (Aspirin EC) 81 Mg Tablet.dr, 81 MG PO DAILY, (Reported) Entered as Reported by: NERIS PRIETO on 10/26/20 0851 Atorvastatin Calcium (Atorvastatin Calcium) 40 Mg Tablet, 40 MG PO HS, (Reported) Entered as Reported by: FERNANDO ARELLANO on 11/29/21 1403 Cefdinir (Cefdinir) 300 Mg Capsule, 300 MG PO BID Prescribed by: CORNELIA MARQUEZ on 12/02/21 1232 Cefdinir (Cefdinir) 300 Mg Capsule, 300 MG PO BID Prescribed by: CRISTY MCKINLEY on 08/22/22 1129 Cefpodoxime Proxetil (Cefpodoxime Proxetil) 100 Mg Tablet, 100 MG PO BID Prescribed by: ILDEFONSO HU MD on 06/24/22 1317 Cefpodoxime Proxetil (Cefpodoxime Proxetil) 200 Mg Tablet, 200 MG PO BID Prescribed by: ILDEFONSO HU MD on 09/23/22 1851 Cephalexin (Cephalexin) 500 Mg Tablet, 500 MG PO BID Prescribed by: EBONY COURTNEY MD on 09/11/222318 Cetirizine HCl (Cetirizine HCl) 10 Mg Tablet, 10 MG PO DAILY Prescribed by: CRISTY MCKINLEY on 08/22/22 1129 Doxycycline Hyclate (Doxycycline Hyclate) 100 Mg Tablet, 100 MG PO BID Prescribed by: MIHIR BARNEY on 06/28/22 1550 Fluoxetine HCl (Fluoxetine HCl) 40 Mg Capsule, 40 MG PO BID, (Reported) Entered as Reported by: NERIS PRIETO on 10/26/20 0851 Furosemide (Furosemide) 40 Mg Tablet, 40 MG PO DAILY, (Reported) Entered as Reported by: FERNANDO ARELLANO on 11/29/21 1404 Gabapentin (Gabapentin) 600 Mg Tablet, 600 MG PO TID PRN for NERVE PAIN, (Reported) Entered as Reported by: MINESH CANALES on 09/17/181846 Hydrochlorothiazide (Hydrochlorothiazide) 25 Mg Tablet, 25 MG PO DAILY Prescribed by: CORNELIA MARQUEZ on 12/02/21 1232 Ibuprofen (Ibuprofen) 800 Mg Tablet, 800 MG PO TID PRN for PAIN-MILD (1-4), (Reported) Entered as Reported by: STACIE BERNAL on 05/15/19 1015 Losartan Potassium (Losartan Potassium) 50 Mg Tablet, 50 MG PO DAILY, (Reported) Entered as Reported by: MINESH CANALES on 09/17/181846 Metformin HCl (Metformin HCl) 1,000 Mg Tablet, 1,000 MG PO BID WITH MEALS, (Reported) Entered as Reported by: MINESH CANALES on 09/17/181846 Ondansetron (Ondansetron Odt) 8 Mg Tab.rapdis, 8 MG SL Q6H PRN for NAUSEA/VOMITING Prescribed by: EBONY COURTNEY MD on 09/11/222318 Oxybutynin Chloride (Oxybutynin Chloride) 5 Mg Tablet, 5 MG PO TID PRN for OVERACTIVE BLADDER, (Reported) Entered as Reported by: MINESH CANALES on 09/17/181846 Rivaroxaban (Xarelto) 10 Mg Tablet, 10 MG PO DAILY, (Reported) Entered as Reported by: FERNANDO ARELLANO on 8/15/22 1404 Review of Systems Review of Systems Constitutional: No fever EENTM: no symptoms reported Respiratory: no symptoms reported Cardiovascular: no symptoms reported Gastrointestinal: no symptoms reported Genitourinary: see HPI Musculoskeletal: no symptoms reported Skin: no symptoms reported Past Xsyqmum-Pljrra-Psmvxm Hx Patient Social History Tobacco Use?: No Use of E-Cig and/or Vaping dev: No Substance use?: No Alcohol Use?: No Pt feels they are or have been: No Immunizations Up To Date Tetanus Booster (TDap): Unknown First/Initial COVID19 Vaccinat: NOT VACCINATED Second COVID19 Vaccination Get: NOT VACCINATED Third COVID19 Vaccination Date: NOT VACCINATED Seasonal Allergies Seasonal Allergies: No Past Medical History Surgery/Hospitalization HX: MRSA APPY C Section Bladder Surgery Stroke with R side residual Cataracts Dilation Urethral structurre HTN Cheek Cellulitis DVT right leg Frequent UTIs Venous stasis LE DM Type II COPD AKF on Chronic Renal Failure Surgeries: Yes (cystoscopies) Appendectomy, Bladder Surgery, Section, Gallbladder, Tonsillectomy Respiratory: Yes COPD Cardiac: Yes High Cholesterol, Hypertension Neurological: Yes Neuropathy, Stroke Genitourinary: Yes (urethral strictures) UTI-Chronic Gastrointestinal: Yes Gall Bladder Disease Musculoskeletal: Yes Arthritis, Chronic Back Pain Endocrine: Yes Diabetes, Insulin dep HEENT: Yes (decreasing vision with age and due to DM) Hearing Impairment: Denies Cancer: No Psychosocial: No Depression Integumentary: Yes (L ORBITAL CELLULITIS, 2018 CHEEK CELLULITIS) Recent Skin Changes Blood Disorders: No Family Medical History Patient reports no known family medical history. Diabetes, Hypertension Physical Exam Vital Signs Vital Signs - First Documented 10/08/22 14:34 Temp 36.2 Pulse 71 Resp 18 B/P (MAP) 162/84 (110) Pulse Ox 97 O2 Delivery Room Air Capillary Refill : Height, Weight, BMI Height: 5'6.00" Weight: 290lbs. 1.0oz. [id number]; 44.00 BMI Method:Stated General Appearance: WD/WN, no apparent distress HEENT: PERRL/EOMI, normal ENT inspection, pharynx normal Neck: non-tender, full range of motion, supple, normal inspection Cardiovascular: irregularly irregular Respiratory: chest non-tender, lungs clear, normal breath sounds, no respiratory distress, no accessory muscle use Gastrointestinal: normal bowel sounds, non tender, soft; No distended, No guarding, No rebound Back: normal inspection, no CVA tenderness Extremities: normal range of motion, non-tender, normal inspection, no pedal edema, no calf tenderness, normal capillary refill Neurologic/Psychiatric: no motor/sensory deficits, alert, normal mood/affect Skin: normal color, warm/dry Progress/Results/Core Measures Suspected Sepsis SIRS Temperature: Pulse: Respiratory Rate: Laboratory Tests 10/08/22 14:36: White Blood Count 4.2L Blood Pressure / Mean: Laboratory Tests 10/08/22 14:36: Creatinine 2.33H, Platelet Count 133, Total Bilirubin 0.5 Results/Orders Lab Results Laboratory Tests Test 10/08/22 14:36 Range/Units White Blood Count 4.2 L 4.3-11.0 10^3/uL Red Blood Count 3.02 L 3.80-5.11 10^6/uL Hemoglobin 9.9 L 11.5-16.0 g/dL Hematocrit 30 L 35-52 % Mean Corpuscular Volume 99 80-99 fL Mean Corpuscular Hemoglobin 33 25-34 pg Mean Corpuscular Hemoglobin Concent 33 32-36 g/dL Red Cell Distribution Width 13.7 10.0-14.5 % Platelet Count 133 130-400 10^3/uL Mean Platelet Volume 8.4 L 9.0-12.2 fL Immature Granulocyte % (Auto) 0 % Neutrophils (%) (Auto) 57 42-75 % Lymphocytes (%) (Auto) 32 12-44 % Monocytes (%) (Auto) 8 0-12 % Eosinophils (%) (Auto) 2 0-10 % Basophils (%) (Auto) 0 0-10 % Neutrophils # (Auto) 2.4 1.8-7.8 10^3/uL Lymphocytes # (Auto) 1.3 1.0-4.0 10^3/uL Monocytes # (Auto) 0.3 0.0-1.0 10^3/uL Eosinophils # (Auto) 0.1 0.0-0.3 10^3/uL Basophils # (Auto) 0.0 0.0-0.1 10^3/uL Immature Granulocyte # (Auto) 0.0 0.0-0.1 10^3/uL Urine Color YELLOW Urine Clarity CLOUDY Urine pH 6.0 5-9 Urine Specific [place] 1.020 1.016-1.022 Urine Protein 2+ H NEGATIVE Urine Glucose (UA) NEGATIVE NEGATIVE Urine Ketones NEGATIVE NEGATIVE Urine Nitrite NEGATIVE NEGATIVE Urine Bilirubin NEGATIVE NEGATIVE Urine Urobilinogen 0.2 < = 1.0 MG/DL Urine Leukocyte Esterase TRACE H NEGATIVE Urine RBC (Auto) 2+ H NEGATIVE Urine RBC 5-10 H /HPF Urine WBC 25-50 H /HPF Urine Squamous Epithelial Cells 25-50 H /HPF Urine Crystals NONE /LPF Urine Bacteria LARGE H /HPF Urine Casts NONE /LPF Urine Mucus NEGATIVE /LPF Urine Culture Indicated NO Sodium Level 136 135-145 MMOL/L Potassium Level 4.1 3.6-5.0 MMOL/L Chloride Level 105 98-107 MMOL/L Carbon Dioxide Level 21 21-32 MMOL/L Anion Gap 10 5-14 MMOL/L Blood Urea Nitrogen 29 H 7-18 MG/DL Creatinine 2.33 H 0.60-1.30 MG/DL Estimat Glomerular Filtration Rate 22 BUN/Creatinine Ratio 12 Glucose Level 181 H 70-105 MG/DL Calcium Level 8.6 8.5-10.1 MG/DL Corrected Calcium 8.8 8.5-10.1 MG/DL Magnesium Level 1.6 1.6-2.4 MG/DL Total Bilirubin 0.5 0.1-1.0 MG/DL Aspartate Amino Transf (AST/SGOT) 14 5-34 U/L Alanine Aminotransferase (ALT/SGPT) 12 0-55 U/L Alkaline Phosphatase 61 40-136 U/L Total Protein 6.1 L 6.4-8.2 GM/DL Albumin 3.7 3.2-4.5 GM/DL Lipase 34 8-78 U/L My Orders Orders - CRISTY MCKINLEY MD Cbc With Automated Diff (10/08/22 14:30) Comprehensive Metabolic Panel (10/08/22 14:30) Lipase (10/08/22 14:30) Magnesium (10/08/22 14:30) Ua Culture If Indicated (10/08/22 14:30) Ceftriaxone Iv/Im (Rocephin Iv/Im) (10/08/22 14:30) Acetaminophen Tablet (Tylenol Tablet) (10/08/22 14:30) Medications Given in ED Current Medications Medications Dose Ordered Sig/Suzi Route Start Time Stop Time Status Last Admin Dose Admin Acetaminophen 1,000 mg ONCE ONCE PO 10/08/22 14:30 10/08/22 14:32 DC 10/08/22 14:44 1,000 MG Ceftriaxone Sodium 1000 mg/ Sodium Chloride 50 ml @ 100 mls/hr ONCE ONCE IV 10/08/22 14:30 10/08/22 14:59 DC 10/08/22 14:44 100 MLS/HR Vital Signs/I&O 10/08/22 14:34 Temp 36.2 Pulse 71 Resp 18 B/P (MAP) 162/84 (110) Pulse Ox 97 O2 Delivery Room Air Capillary Refill : Progress Note : Progress Note 67-year-old female presenting for dysuria. ABCs were intact and vitals were sta ble on presentation. Physical exam reassuring with no significant abnormalities. Vital signs essentially unremarkable. An IV was placed by EMS, she was given a liter of fluids by EMS which was completed here with us. She was given Tylenol for any discomfort. She was given Zofran by EMS as well. Basic labs obtained and were significant for hemoglobin of 9.9 which is around her baseline, creatinine around 2.3 which is around her baseline, urinalysis with large amount of bacteria and leukocyte esterase concerning for infection. I reviewed the microbiology data from prior, and she has grown out multiple different bacteria in the past, typically sensitive to 3rd generation cephalosporins. She was given IV ceftriaxone here, we will send a prescription for cefdinir. I believe she is otherwise stable for discharge with outpatient follow-up. She was sent home with strict return precautions Departure Impression Primary Impression: Cystitis with hematuria Disposition: HOME, SELF-CARE Condition: Stable Departure-Patient Inst. Decision time for Depature: 15:20 Referrals: NICOLE ACHARYA MD (PCP) Primary Care Physician Patient Instructions: Acute Cystitis (DC) Add. Discharge Instructions: We will put you on antibiotics for the next week. Please follow-up with your regular doctor. It may be good to follow-up with a urologist given your frequent UTIs. You likely would benefit from topical estrogen to help reduce the number of UTIs you have. Scripts Cefdinir (Cefdinir) 300 Mg Capsule 300 MG PO BID for 7 Days, #14 CAP 0 Refills Prov: CRISTY MCKINLEY MD 10/08/22 CRISTY MCKINLEY MD Oct 08, 2022 14:35
[2022-10-08 14:37] LABS: BASOPHILS % (AUTO) 0 % (0-10); EOSINOPHILS # (AUTO) 0.1 10^3/uL (0.0-0.3); EOSINOPHILS % (AUTO) 2 % (0-10); HEMATOCRIT 30 % (35-52); HEMOGLOBIN 9.9 g/dL (11.5-16.0); LYMPHOCYTES # (AUTO) 1.3 10^3/uL (1.0-4.0); LYMPHOCYTES % (AUTO) 32 % (12-44); MEAN CORPUSCULAR HEMOGLOBIN 33 pg (25-34); MEAN CORPUSCULAR HGB CONC 33 g/dL (32-36); MEAN CORPUSCULAR VOLUME 99 fL (80-99); MEAN PLATELET VOLUME 8.4 fL (9.0-12.2); MONOCYTES # (AUTO) 0.3 10^3/uL (0.0-1.0); MONOCYTES % (AUTO) 8 % (0-12); NEUTROPHILS # (AUTO) 2.4 10^3/uL (1.8-7.8); NEUTROPHILS % (AUTO) 57 % (42-75); PLATELET COUNT 133 10^3/uL (130-400); WHITE BLOOD COUNT 4.2 10^3/uL (4.3-11.0)
[2022-10-08 14:43] LABS: BILIRUBIN,URINE NEGATIVE (NEGATIVE); COLOR,URINE YELLOW; GLUCOSE, URINE (UA) NEGATIVE (NEGATIVE); KETONES,URINE NEGATIVE (NEGATIVE); LEUKOCYTE ESTERASE ,URINE TRACE (NEGATIVE); NITRITE,URINE NEGATIVE (NEGATIVE); PROTEIN,URINE 2+ (NEGATIVE)
[2022-10-08 14:46] LABS: BACTERIA,URINE LARGE /HPF; CLARITY,URINE CLOUDY; SQUAMOUS EPITHELIAL CELL,UR 25-50 /HPF; WBC,URINE 25-50 /HPF
[2022-10-08 14:56] LABS: BILIRUBIN,TOTAL 0.5 MG/DL (0.1-1.0); CALCIUM 8.6 MG/DL (8.5-10.1); CREATININE SERUM 2.33 MG/DL (0.60-1.30); MAGNESIUM 1.6 MG/DL (1.6-2.4); POTASSIUM 4.1 MMOL/L (3.6-5.0)
[2022-10-08 14:57] LABS: ALBUMIN 3.7 GM/DL (3.2-4.5); TOTAL PROTEIN 6.1 GM/DL (6.4-8.2)
[2022-10-08] MEDS ORDERED: CEFD300C3 PO (15:20)
== END 2022-10-08 15:24 | disposition home or self-care (01) ==
LOC: EDUNIT# 14:23 → ER FS 14:24
DX: N30.91 Cystitis, unspecified with hematuria (principal); E11.9 Type 2 diabetes mellitus without complications; Z79.4 Long term (current) use of insulin; Z28.310 Unvaccinated for COVID-19
CPT/HCPCS: 36415; 80053; 81000; 83690; 83735; 85025; 99283

== ENCOUNTER 2022-11-18 21:05 | Emergency (ER) | payer MEDICAID ==
[~2022-11-18] VITALS: Ht 167.7 cm; Wt 123.0 kg
--- NOTE | 2022-11-18 21:09 | ED General ---
General Stated Complaint: LOWER L LEG PAIN/BLEEDING History of Present Illness Date Seen by Provider: Nov 18, 2022 Time Seen by Provider: 21:09 Initial Comments 67-year-old female presents with cellulitis to the left lower leg with an abscess that opened and is draining. Patient reports that she noticed that yesterday and got an abscess that popped open on its own and now is draining. She reports that she has recently been on Keflex for UTI and she is still currently on it. No reports of fever or chills Allergies and Home Medications Allergies Uncoded Allergies: IV CONTRAST (Adverse Reaction, Mild, HIVES, 09/17/18) Patient Home Medication List Home Medication List Reviewed: Yes Acetaminophen (Tylenol Extra Strength) 500 Mg Tablet, 1,000 MG PO Q8H PRN for PAIN-MILD (1-4), (Reported) Entered as Reported by: FERNANDO ARELLANO on 11/29/21 1408 Amitriptyline HCl (Amitriptyline HCl) 50 Mg Tablet, 50 MG PO DAILY, (Reported) Entered as Reported by: FERNANDO ARELLANO on 11/29/21 1405 Aspirin (Aspirin EC) 81 Mg Tablet.dr, 81 MG PO DAILY, (Reported) Entered as Reported by: NERIS PRIETO on 10/26/20 0851 Atorvastatin Calcium (Atorvastatin Calcium) 40 Mg Tablet, 40 MG PO HS, (Reported) Entered as Reported by: FERNANDO ARELLANO on 11/29/21 1403 Cefdinir (Cefdinir) 300 Mg Capsule, 300 MG PO BID Prescribed by: CORNELIA MARQUEZ on 12/02/21 1232 Cefdinir (Cefdinir) 300 Mg Capsule, 300 MG PO BID Prescribed by: CRISTY MCKINLEY on 08/22/22 1129 Cefdinir (Cefdinir) 300 Mg Capsule, 300 MG PO BID Prescribed by: CRISTY MCKINLEY on 10/08/22 1520 Cefpodoxime Proxetil (Cefpodoxime Proxetil) 100 Mg Tablet, 100 MG PO BID Prescribed by: ILDEFONSO HU MD on 06/24/22 1317 Cefpodoxime Proxetil (Cefpodoxime Proxetil) 200 Mg Tablet, 200 MG PO BID Prescribed by: ILDEFONSO HU MD on 09/23/22 1851 Cephalexin (Cephalexin) 500 Mg Tablet, 500 MG PO BID Prescribed by: EBONY COURTNEY MD on 09/11/222318 Cetirizine HCl (Cetirizine HCl) 10 Mg Tablet, 10 MG PO DAILY Prescribed by: CRISTY MCKINLEY on 08/22/22 1129 Clindamycin HCl (Clindamycin HCl) 300 Mg Capsule, 300 MG PO TID Prescribed by: DAY ARDON on 11/18/22 215 Doxycycline Hyclate (Doxycycline Hyclate) 100 Mg Tablet, 100 MG PO BID Prescribed by: MIHIR BARNEY on 06/28/22 1550 Fluoxetine HCl (Fluoxetine HCl) 40 Mg Capsule, 40 MG PO BID, (Reported) Entered as Reported by: NERIS PRIETO on 10/26/20 0851 Furosemide (Furosemide) 40 Mg Tablet, 40 MG PO DAILY, (Reported) Entered as Reported by: FERNANDO ARELLANO on 11/29/21 1404 Gabapentin (Gabapentin) 600 Mg Tablet, 600 MG PO TID PRN for NERVE PAIN, (Reported) Entered as Reported by: MINESH CANALES on 09/17/181846 Hydrochlorothiazide (Hydrochlorothiazide) 25 Mg Tablet, 25 MG PO DAILY Prescribed by: CORNELIA MARQUEZ on 12/02/21 1232 Ibuprofen (Ibuprofen) 800 Mg Tablet, 800 MG PO TID PRN for PAIN-MILD (1-4), (Reported) Entered as Reported by: STACIE BERNAL on 05/15/19 1015 Losartan Potassium (Losartan Potassium) 50 Mg Tablet, 50 MG PO DAILY, (Reported) Entered as Reported by: MINESH CANALES on 09/17/181846 Metformin HCl (Metformin HCl) 1,000 Mg Tablet, 1,000 MG PO BID WITH MEALS, (Reported) Entered as Reported by: MINESH CANALES on 09/17/181846 Ondansetron (Ondansetron Odt) 8 Mg Tab.rapdis, 8 MG SL Q6H PRN for NAUSEA/VOMITING Prescribed by: EBONY COURTNEY MD on 09/11/222318 Oxybutynin Chloride (Oxybutynin Chloride) 5 Mg Tablet, 5 MG PO TID PRN for OVERACTIVE BLADDER, (Reported) Entered as Reported by: MINESH CANALES on 6/3/19 1847 Rivaroxaban (Xarelto) 10 Mg Tablet, 10 MG PO DAILY, (Reported) Entered as Reported by: FERNANDO ARELLANO on 11/29/21 1404 Review of Systems Review of Systems Constitutional: see HPI Respiratory: no symptoms reported Cardiovascular: no symptoms reported Gastrointestinal: no symptoms reported Genitourinary: see HPI Musculoskeletal: see HPI Skin: see HPI Past Utlaenz-Oajgzu-Xopdqv Hx Immunizations Up To Date Tetanus Booster (TDap): Unknown First/Initial COVID19 Vaccinat: NOT VACCINATED Second COVID19 Vaccination Get: NOT VACCINATED Third COVID19 Vaccination Date: NOT VACCINATED Seasonal Allergies Seasonal Allergies: No Past Medical History Surgery/Hospitalization HX: MRSA APPY C Section Bladder Surgery Stroke with R side residual Cataracts Dilation Urethral structurre HTN Cheek Cellulitis DVT right leg Frequent UTIs Venous stasis LE DM Type II COPD AKF on Chronic Renal Failure Surgeries: Yes (cystoscopies) Appendectomy, Bladder Surgery, Section, Gallbladder, Tonsillectomy Respiratory: Yes COPD Cardiac: Yes High Cholesterol, Hypertension Neurological: Yes Neuropathy, Stroke Genitourinary: Yes (urethral strictures) UTI-Chronic Gastrointestinal: Yes Gall Bladder Disease Musculoskeletal: Yes Arthritis, Chronic Back Pain Endocrine: Yes Diabetes, Insulin dep HEENT: Yes (decreasing vision with age and due to DM) Hearing Impairment: Denies Cancer: No Psychosocial: No Depression Integumentary: Yes (L ORBITAL CELLULITIS, 2018 CHEEK CELLULITIS) Recent Skin Changes Blood Disorders: No Family Medical History Patient reports no known family medical history. Diabetes, Hypertension Physical Exam Vital Signs Vital Signs - First Documented 11/18/22 21:07 Temp 36.8 Pulse 77 Resp 20 B/P (MAP) 73/ Pulse Ox 96 O2 Delivery Room Air O2 Flow Rate 139.00 Capillary Refill : Height, Weight, BMI Height: 5'6.00" Weight: 290lbs. 1.0oz. 131.871623ss; 42.00 BMI Method:Stated General Appearance: No Apparent Distress, Obese Respiratory: Lungs Clear, Normal Breath Sounds Cardiovascular: Regular Rate, Rhythm, Normal Peripheral Pulses Gastrointestinal: Non Tender, Soft Neurologic/Psychiatric: Alert, Oriented x3 Skin: Other (Small abscess left calf that has opened and is draining with surrounding cellulitis) Progress/Results/Core Measures Suspected Sepsis SIRS Temperature: Pulse: Respiratory Rate: Laboratory Tests 11/18/22 21:12: White Blood Count 7.1 Blood Pressure / Mean: Laboratory Tests 11/18/22 21:12: Creatinine 2.59H, Platelet Count 142, Total Bilirubin 0.3 Results/Orders Lab Results Laboratory Tests Test 11/18/22 21:12 Range/Units White Blood Count 7.1 4.3-11.0 10^3/uL Red Blood Count 3.18 L 3.80-5.11 10^6/uL Hemoglobin 10.4 L 11.5-16.0 g/dL Hematocrit 30 L 35-52 % Mean Corpuscular Volume 96 80-99 fL Mean Corpuscular Hemoglobin 33 25-34 pg Mean Corpuscular Hemoglobin Concent 34 32-36 g/dL Red Cell Distribution Width 12.8 10.0-14.5 % Platelet Count 142 130-400 10^3/uL Mean Platelet Volume 8.4 L 9.0-12.2 fL Immature Granulocyte % (Auto) 0 % Neutrophils (%) (Auto) 67 42-75 % Lymphocytes (%) (Auto) 25 12-44 % Monocytes (%) (Auto) 6 0-12 % Eosinophils (%) (Auto) 1 0-10 % Basophils (%) (Auto) 0 0-10 % Neutrophils # (Auto) 4.8 1.8-7.8 10^3/uL Lymphocytes # (Auto) 1.8 1.0-4.0 10^3/uL Monocytes # (Auto) 0.4 0.0-1.0 10^3/uL Eosinophils # (Auto) 0.1 0.0-0.3 10^3/uL Basophils # (Auto) 0.0 0.0-0.1 10^3/uL Immature Granulocyte # (Auto) 0.0 0.0-0.1 10^3/uL Sodium Level 136 135-145 MMOL/L Potassium Level 4.0 3.6-5.0 MMOL/L Chloride Level 106 98-107 MMOL/L Carbon Dioxide Level 18 L 21-32 MMOL/L Anion Gap 12 5-14 MMOL/L Blood Urea Nitrogen 37 H 7-18 MG/DL Creatinine 2.59 H 0.60-1.30 MG/DL Estimat Glomerular Filtration Rate 20 BUN/Creatinine Ratio 14 Glucose Level 275 H 70-105 MG/DL Calcium Level 8.3 L 8.5-10.1 MG/DL Corrected Calcium 8.5 8.5-10.1 MG/DL Total Bilirubin 0.3 0.1-1.0 MG/DL Aspartate Amino Transf (AST/SGOT) 16 5-34 U/L Alanine Aminotransferase (ALT/SGPT) 16 0-55 U/L Alkaline Phosphatase 79 40-136 U/L Total Protein 6.2 L 6.4-8.2 GM/DL Albumin 3.7 3.2-4.5 GM/DL My Orders Orders - DAY ARDON DO Cbc With Automated Diff (11/18/22 21:13) Comprehensive Metabolic Panel (11/18/22 21:13) Clindamycin 600 Mg/50 Ml Ivpb (Clindamyc (11/18/22 21:15) Ketorolac Injection (Toradol Injection) (11/18/22 22:01) Medications Given in ED Current Medications Medications Dose Ordered Sig/Suzi Route Start Time Stop Time Status Last Admin Dose Admin Clindamycin Phosphate/Dextrose 50 ml @ 50 mls/hr ONCE ONCE IV 11/18/22 21:15 11/18/22 22:14 11/18/22 21:26 50 MLS/HR Vital Signs/I&O 11/18/22 21:07 Temp 36.8 Pulse 77 Resp 20 B/P (MAP) 73/ Pulse Ox 96 O2 Delivery Room Air O2 Flow Rate 139.00 Capillary Refill : Progress Note : Progress Note Patient's diagnostic studies were ordered reviewed and interpreted by me. Patient's labs were compared to prior labs and appear to be at her baseline. Patient with cellulitis of the left lower extremity with a small abscess that is already open and draining for so no further treatment was indicated. She was given IV clindamycin in the ER. She will be prescribed clindamycin. She did have improvement of the erythema and warmth of elevation of the leg. I discussed with her to keep her leg elevated when not ambulating, she should take the clindamycin as prescribed. She should follow-up with outpatient clinic towards Monday and next week for recheck of her symptoms. Return to the ER with any worsening of her symptoms or other concerns. She was stable and discharged home she is at increased risk of morbidity and mortality based on her social determinants of health. Departure Impression Primary Impression: Abscess of left lower extremity excluding foot Additional Impression: Cellulitis of left lower extremity without foot Disposition: HOME, SELF-CARE Condition: Stable Departure-Patient Inst. Referrals: NICOLE ACHARYA MD (PCP/Family) Primary Care Physician Patient Instructions: Cellulitis (Skin Infection), Adult ED, Skin Abscess Add. Discharge Instructions: Keep legs elevated when not ambulating. Take antibiotics as prescribed. Follow-up with your primary care provider or another provider towards in the next week for recheck of your symptoms Scripts Clindamycin HCl (Clindamycin HCl) 300 Mg Capsule 300 MG PO TID for 10 Days, #30 CAP Prov: DAY ARDON DO 11/18/22 DAY ARDON DO Nov 18, 2022 21:09
[2022-11-18] MEDS ORDERED: CLINDAMYCIN 600 MG/50 ML IVPB 50 ML IV ONE (21:15)
[2022-11-18 21:18] LABS: BASOPHILS % (AUTO) 0 % (0-10); EOSINOPHILS # (AUTO) 0.1 10^3/uL (0.0-0.3); EOSINOPHILS % (AUTO) 1 % (0-10); HEMATOCRIT 30 % (35-52); HEMOGLOBIN 10.4 g/dL (11.5-16.0); LYMPHOCYTES # (AUTO) 1.8 10^3/uL (1.0-4.0); LYMPHOCYTES % (AUTO) 25 % (12-44); MEAN CORPUSCULAR HEMOGLOBIN 33 pg (25-34); MEAN CORPUSCULAR HGB CONC 34 g/dL (32-36); MEAN CORPUSCULAR VOLUME 96 fL (80-99); MEAN PLATELET VOLUME 8.4 fL (9.0-12.2); MONOCYTES # (AUTO) 0.4 10^3/uL (0.0-1.0); MONOCYTES % (AUTO) 6 % (0-12); NEUTROPHILS # (AUTO) 4.8 10^3/uL (1.8-7.8); NEUTROPHILS % (AUTO) 67 % (42-75); PLATELET COUNT 142 10^3/uL (130-400); WHITE BLOOD COUNT 7.1 10^3/uL (4.3-11.0)
[2022-11-18 21:36] LABS: ALBUMIN 3.7 GM/DL (3.2-4.5); BILIRUBIN,TOTAL 0.3 MG/DL (0.1-1.0); CALCIUM 8.3 MG/DL (8.5-10.1); CREATININE SERUM 2.59 MG/DL (0.60-1.30); TOTAL PROTEIN 6.2 GM/DL (6.4-8.2)
[2022-11-18] MEDS ORDERED: CLIN-144 PO (21:59)
[2022-11-18] MEDS ORDERED: KETOROLAC 30 MG/ML VIAL IVP STA (22:01)
[2022-11-18 22:23] VITALS: BP 131/65
== END 2022-11-18 22:23 | disposition home or self-care (01) ==
LOC: EDUNIT# 21:05 → ER FS 21:06
DX: L02.416 Cutaneous abscess of left lower limb (principal); L03.116 Cellulitis of left lower limb; N39.0 Urinary tract infection, site not specified; E11.9 Type 2 diabetes mellitus without complications; E66.9 Obesity, unspecified; Z68.41 Body mass index [BMI] 40.0-44.9, adult; Z79.4 Long term (current) use of insulin; Z28.310 Unvaccinated for COVID-19
CPT/HCPCS: 36415; 80053; 85025; 96365; 96375

== ENCOUNTER 2023-01-01 14:31 | Emergency (ER) | payer MEDICAID ==
[~2023-01-01 14:31] MED LIST changes: +CLIN-144 PO
--- NOTE | 2023-01-01 14:43 | ED General ---
General Chief Complaint: General Problems/Pain Stated Complaint: MALAISE Source of Information: Patient, EMS, Old Records Exam Limitations: No Limitations History of Present Illness Date Seen by Provider: Jan 01, 2023 Time Seen by Provider: 14:32 Initial Comments 67yoF with PMH of chronic UTIs, DM, A-fib, hypertension, hyperlipidemia coming in via EMS from home due to general malaise, nonbloody nonbilious vomiting, nonbloody diarrhea. This has been going on for roughly 3 days. Denies any fever, chest pain, shortness of breath, abdominal pain, focal weakness or numbness, or any other concerns. She does have dysuria. She does not believe she has been on antibiotics for over a month for UTI. EMS reports that her systolic pressure ranged from the 80s to 90s. They started an IV and give her a bolus of IV fluids. Her blood sugar was just above 200. They also gave her Zofran. Allergies and Home Medications Allergies Uncoded Allergies: IV CONTRAST (Adverse Reaction, Mild, HIVES, 09/17/18) Patient Home Medication List Home Medication List Reviewed: Yes Acetaminophen (Tylenol Extra Strength) 500 Mg Tablet, 1,000 MG PO Q8H PRN for PAIN-MILD (1-4), (Reported) Entered as Reported by: FERNANDO ARELLANO on 11/29/21 1408 Amitriptyline HCl (Amitriptyline HCl) 50 Mg Tablet, 50 MG PO DAILY, (Reported) Entered as Reported by: FERNANDO ARELLANO on 11/29/21 1405 Aspirin (Aspirin EC) 81 Mg Tablet.dr, 81 MG PO DAILY, (Reported) Entered as Reported by: NERIS PRIETO on 10/26/20 0851 Atorvastatin Calcium (Atorvastatin Calcium) 40 Mg Tablet, 40 MG PO HS, (Reported) Entered as Reported by: FERNANDO ARELLANO on 11/29/21 1403 Cefdinir (Cefdinir) 300 Mg Capsule, 300 MG PO BID Prescribed by: CORNELIA MARQUEZ on 12/02/21 1232 Cefdinir (Cefdinir) 300 Mg Capsule, 300 MG PO BID Prescribed by: CRISTY MCKINLEY on 08/22/22 1129 Cefdinir (Cefdinir) 300 Mg Capsule, 300 MG PO BID Prescribed by: CRISTY MCKINLEY on 10/08/22 1520 Cefpodoxime Proxetil (Cefpodoxime Proxetil) 100 Mg Tablet, 100 MG PO BID Prescribed by: ILDEFONSO HU MD on 06/24/22 1317 Cefpodoxime Proxetil (Cefpodoxime Proxetil) 200 Mg Tablet, 200 MG PO BID Prescribed by: ILDEFONSO HU MD on 09/23/22 1851 Cephalexin (Cephalexin) 500 Mg Tablet, 500 MG PO BID Prescribed by: EBONY COURTNEY MD on 09/11/22 2319 Cetirizine HCl (Cetirizine HCl) 10 Mg Tablet, 10 MG PO DAILY Prescribed by: CRISTY MCKINLEY on 08/22/22 1129 Clindamycin HCl (Clindamycin HCl) 300 Mg Capsule, 300 MG PO TID Prescribed by: DAY ARDON on 11/18/22 215 Doxycycline Hyclate (Doxycycline Hyclate) 100 Mg Tablet, 100 MG PO BID Prescribed by: MIHIR BARNEY on 06/28/22 1550 Fluoxetine HCl (Fluoxetine HCl) 40 Mg Capsule, 40 MG PO BID, (Reported) Entered as Reported by: NERIS PRIETO on 10/26/20 0851 Furosemide (Furosemide) 40 Mg Tablet, 40 MG PO DAILY, (Reported) Entered as Reported by: FERNANDO ARELLANO on 11/29/21 1404 Gabapentin (Gabapentin) 600 Mg Tablet, 600 MG PO TID PRN for NERVE PAIN, (Reported) Entered as Reported by: MINESH CANALES on 09/17/181846 Hydrochlorothiazide (Hydrochlorothiazide) 25 Mg Tablet, 25 MG PO DAILY Prescribed by: CORNELIA MARQUEZ on 12/02/21 1232 Ibuprofen (Ibuprofen) 800 Mg Tablet, 800 MG PO TID PRN for PAIN-MILD (1-4), (Reported) Entered as Reported by: STACIE BERNAL on 05/15/19 1015 Losartan Potassium (Losartan Potassium) 50 Mg Tablet, 50 MG PO DAILY, (Reported) Entered as Reported by: MINESH CANALES on 09/17/181846 Metformin HCl (Metformin HCl) 1,000 Mg Tablet, 1,000 MG PO BID WITH MEALS, (Reported) Entered as Reported by: MINESH CANALES on 09/17/181846 Ondansetron (Ondansetron Odt) 8 Mg Tab.rapdis, 8 MG SL Q6H PRN for NAUSEA/VOMITING Prescribed by: EBONY COURTNEY MD on 09/11/22 231 Oxybutynin Chloride (Oxybutynin Chloride) 5 Mg Tablet, 5 MG PO TID PRN for OVERACTIVE BLADDER, (Reported) Entered as Reported by: MINESH CANALES on 09/17/181846 Rivaroxaban (Xarelto) 10 Mg Tablet, 10 MG PO DAILY, (Reported) Entered as Reported by: FERNANDO ARELLANO on 11/29/21 1404 Review of Systems Review of Systems Constitutional: No fever EENTM: no symptoms reported Respiratory: no symptoms reported Cardiovascular: no symptoms reported Gastrointestinal: see HPI Genitourinary: see HPI Musculoskeletal: no symptoms reported Skin: no symptoms reported Psychiatric/Neurological: No Symptoms Reported Hematologic/Lymphatic: No Symptoms Reported Past Syasvra-Dkbjqn-Ntelnp Hx Immunizations Up To Date Tetanus Booster (TDap): Unknown First/Initial COVID19 Vaccinat: NOT VACCINATED Second COVID19 Vaccination Get: NOT VACCINATED Third COVID19 Vaccination Date: NOT VACCINATED Seasonal Allergies Seasonal Allergies: No Past Medical History Surgery/Hospitalization HX: MRSA APPY C Section Bladder Surgery Stroke with R side residual Cataracts Dilation Urethral structurre HTN Cheek Cellulitis DVT right leg Frequent UTIs Venous stasis LE DM Type II COPD AKF on Chronic Renal Failure Surgeries: Yes (cystoscopies) Appendectomy, Bladder Surgery, Section, Gallbladder, Tonsillectomy Respiratory: Yes COPD Cardiac: Yes High Cholesterol, Hypertension Neurological: Yes Neuropathy, Stroke Genitourinary: Yes (urethral strictures) UTI-Chronic Gastrointestinal: Yes Gall Bladder Disease Musculoskeletal: Yes Arthritis, Chronic Back Pain Endocrine: Yes Diabetes, Insulin dep HEENT: Yes (decreasing vision with age and due to DM) Hearing Impairment: Denies Cancer: No Psychosocial: No Depression Integumentary: Yes (L ORBITAL CELLULITIS, 2018 CHEEK CELLULITIS) Recent Skin Changes Blood Disorders: No Family Medical History Patient reports no known family medical history. Diabetes, Hypertension Physical Exam Vital Signs Vital Signs - First Documented 01/01/23 14:35 Temp 37.1 Pulse 85 Resp 18 B/P (MAP) 101/45 (63) Pulse Ox 96 O2 Delivery Room Air Capillary Refill : Height, Weight, BMI Height: 5'6.00" Weight: 290lbs. 1.0oz. [id number]; 43.00 BMI Method:Stated General Appearance: Other (Disheveled, malodorous, obese, no acute distress) Eyes: Bilateral Eye Normal Inspection HEENT: PERRL/EOMI, Normal ENT Inspection, Pharynx Normal Neck: Full Range of Motion, Normal Inspection, Non Tender, Supple Respiratory: Chest Non Tender, Lungs Clear, Normal Breath Sounds, No Accessory Muscle Use, No Respiratory Distress Cardiovascular: Regular Rate, Rhythm, Normal Peripheral Pulses Gastrointestinal: Normal Bowel Sounds, Non Tender, Soft; No Distended, No Guarding Back: Normal Inspection, No CVA Tenderness, No Vertebral Tenderness Extremity: Normal Capillary Refill, Normal Inspection, Normal Range of Motion, Non Tender, No Calf Tenderness, Pedal Edema Neurologic/Psychiatric: Alert, Oriented x3, No Motor/Sensory Deficits, Normal Mood/Affect Skin: Normal Color, Warm/Dry Focused Exam Lactate Level 01/01/23 14:40: Lactic Acid Level 2.78*H Lactic Acid Level Laboratory Tests Test 01/01/23 14:40 Lactic Acid Level 2.78 MMOL/L (0.50-2.00) *H Progress/Results/Core Measures Suspected Sepsis SIRS Temperature: Pulse: Respiratory Rate: Laboratory Tests 01/01/23 14:40: White Blood Count 12.6H Blood Pressure / Mean: 01/01/23 14:40: Lactic Acid Level 2.78*H Laboratory Tests 01/01/23 14:40: Creatinine 5.42H, INR Comment 1.1, Platelet Count 51L, Total Bilirubin 0.7 Results/Orders Lab Results Laboratory Tests Test 01/01/23 14:40 Range/Units White Blood Count 12.6 H 4.3-11.0 10^3/uL Red Blood Count 3.25 L 3.80-5.11 10^6/uL Hemoglobin 11.0 L 11.5-16.0 g/dL Hematocrit 33 L 35-52 % Mean Corpuscular Volume 101 H 80-99 fL Mean Corpuscular Hemoglobin 34 25-34 pg Mean Corpuscular Hemoglobin Concent 34 32-36 g/dL Red Cell Distribution Width 13.5 10.0-14.5 % Platelet Count 51 L 130-400 10^3/uL Mean Platelet Volume 10.3 9.0-12.2 fL Immature Granulocyte % (Auto) 1 % Neutrophils (%) (Auto) 83 H 42-75 % Lymphocytes (%) (Auto) 6 L 12-44 % Monocytes (%) (Auto) 10 0-12 % Eosinophils (%) (Auto) 0 0-10 % Basophils (%) (Auto) 0 0-10 % Neutrophils # (Auto) 10.4 H 1.8-7.8 10^3/uL Lymphocytes # (Auto) 0.7 L 1.0-4.0 10^3/uL Monocytes # (Auto) 1.3 H 0.0-1.0 10^3/uL Eosinophils # (Auto) 0.1 0.0-0.3 10^3/uL Basophils # (Auto) 0.0 0.0-0.1 10^3/uL Immature Granulocyte # (Auto) 0.1 0.0-0.1 10^3/uL Neutrophils % (Manual) 8 % Lymphocytes % (Manual) 6 % Monocytes % (Manual) 5 % Eosinophils % (Manual) 1 % Percent Immature Platelet Fraction 6.3 0.0-7.6 % Prothrombin Time 14.5 12.2-14.7 SEC INR Comment 1.1 0.8-1.4 Activated Partial Thromboplast Time 25 24-35 SEC Urine Color YELLOW Urine Clarity TURBID Urine pH 6.0 5-9 Urine Specific [place] 1.010 L 1.016-1.022 Urine Protein 2+ H NEGATIVE Urine Glucose (UA) NEGATIVE NEGATIVE Urine Ketones NEGATIVE NEGATIVE Urine Nitrite NEGATIVE NEGATIVE Urine Bilirubin NEGATIVE NEGATIVE Urine Urobilinogen 0.2 < = 1.0 MG/DL Urine Leukocyte Esterase 3+ H NEGATIVE Urine RBC (Auto) 2+ H NEGATIVE Urine RBC /HPF Urine WBC TNTC H /HPF Urine Crystals NONE /LPF Urine Bacteria /HPF Urine Casts NONE /LPF Urine Mucus NEGATIVE /LPF Urine Culture Indicated NO Sodium Level 132 L 135-145 MMOL/L Potassium Level 3.9 3.6-5.0 MMOL/L Chloride Level 98 98-107 MMOL/L Carbon Dioxide Level 18 L 21-32 MMOL/L Anion Gap 16 H 5-14 MMOL/L Blood Urea Nitrogen 62 H 7-18 MG/DL Creatinine 5.42 H 0.60-1.30 MG/DL Estimat Glomerular Filtration Rate 8 BUN/Creatinine Ratio 11 Glucose Level 275 H 70-105 MG/DL Lactic Acid Level 2.78 *H 0.50-2.00 MMOL/L Calcium Level 8.1 L 8.5-10.1 MG/DL Corrected Calcium 8.8 8.5-10.1 MG/DL Total Bilirubin 0.7 0.1-1.0 MG/DL Aspartate Amino Transf (AST/SGOT) 11 5-34 U/L Alanine Aminotransferase (ALT/SGPT) 8 0-55 U/L Alkaline Phosphatase 97 40-136 U/L Total Protein 6.1 L 6.4-8.2 GM/DL Albumin 3.1 L 3.2-4.5 GM/DL Influenza Type A (RT-PCR) Not Detected Not Detecte Influenza Type B (RT-PCR) Not Detected Not Detecte SARS-CoV-2 RNA (RT-PCR) Not Detected Not Detecte My Orders Orders - CRISTY MCKINLEY MD Cbc With Automated Diff (01/01/23 14:37) Comprehensive Metabolic Panel (01/01/23 14:37) Blood Culture (01/01/23 14:37) Urinalysis (01/01/23 14:37) Urine Culture (01/01/23 14:37) Protime With Inr (01/01/23 14:37) Partial Thromboplastin Time (01/01/23 14:37) Ed Iv/Invasive Line Start (01/01/23 14:37) Vital Signs Adult Sepsis Patie Q15M (01/01/23 14:37) O2 (01/01/23 14:37) Remove Rings In Anticipation O (01/01/23 14:37) Lactic Acid Analyzer (01/01/23 14:37) Influenza A And B By Pcr (01/01/23 14:37) Cefepime Injection (Cefepime Injection) (01/01/23 14:45) Covid 19 Inhouse Test (01/01/23 14:37) Manual Differential (01/01/23 14:40) Ns Iv 1000 Ml (Ns Iv 1000 Ml) (01/01/23 15:15) Medications Given in ED Current Medications Medications Dose Ordered Sig/Suzi Route Start Time Stop Time Status Last Admin Dose Admin Cefepime HCl 1000 mg/Sodium Chloride 50 ml @ 100 mls/hr ONCE ONCE IV 01/01/23 14:45 01/01/23 15:14 DC 01/01/23 15:36 100 MLS/HR Vital Signs/I&O 01/01/23 14:35 Temp 37.1 Pulse 85 Resp 18 B/P (MAP) 101/45 (63) Pulse Ox 96 O2 Delivery Room Air Capillary Refill : Progress Note : Progress Note 67-year-old female with above history coming in due to vomiting and diarrhea. The patient was hypotensive on arrival. For EMS her blood pressure was 80s over 40s continually with repeat reassessment. They placed an IV and give a liter of IV fluids. On arrival here she was 100s over 40s with a map in the 50s. This is much lower than her baseline. When I reviewed the chart, she is typically 160s over 80s. We gave her 1 more liter of IV fluids with continued improvement in her blood pressure. Basic labs were significant for an elevated white blood cell count, significantly elevated creatinine around 5.4 with a baseline around 2, elevated lactic acid around 2.7, and urinalysis with concerns for infection with too numerous to count white blood cells. She was given IV cefepime. I contacted our hospitalist, the concern is we do not have nephrology, and if the patient were to worsen she may need to be transferred emergently for dialysis. Because of this, the patient will need to go to a center that is capable for dialysis. Departure Impression Primary Impression: ARF (acute renal failure) Qualified Codes: N17.8 - Other acute kidney failure Additional Impression: Severe sepsis Disposition: 02 XFER [facility] Condition: Stable Admissions Decision to Admit/Date: Jan 01, 2023 Time/Decision to Admit Time: 16:15 Transfer Transfer Reason: Exceeds level of care (needs nephrology) Transfer Progress Notes Accepted by Dr. Yang as an ER to ER transfer Transfer Facility: [facility] Method of Transfer: Air Departure-Patient Inst. Referrals: NICOLE ACHARYA MD (PCP/Family) Primary Care Physician CRISTY MCKINLEY MD Jan 01, 2023 14:42
[2023-01-01] MEDS ORDERED: CEFEPIME INJECTION 1,000 MG in NS (IVPB) 50 ML 50 ML IV ONE (14:45)
[2023-01-01 14:47] LABS: BASOPHILS % (AUTO) 0 % (0-10); EOSINOPHILS # (AUTO) 0.1 10^3/uL (0.0-0.3); EOSINOPHILS % (AUTO) 0 % (0-10); HEMATOCRIT 33 % (35-52); LYMPHOCYTES # (AUTO) 0.7 10^3/uL (1.0-4.0); LYMPHOCYTES % (AUTO) 6 % (12-44); MEAN CORPUSCULAR HEMOGLOBIN 34 pg (25-34); MEAN CORPUSCULAR HGB CONC 34 g/dL (32-36); MEAN CORPUSCULAR VOLUME 101 fL (80-99); MEAN PLATELET VOLUME 10.3 fL (9.0-12.2); MONOCYTES # (AUTO) 1.3 10^3/uL (0.0-1.0); MONOCYTES % (AUTO) 10 % (0-12); NEUTROPHILS # (AUTO) 10.4 10^3/uL (1.8-7.8); NEUTROPHILS % (AUTO) 83 % (42-75); PLATELET COUNT 51 10^3/uL (130-400); WHITE BLOOD COUNT 12.6 10^3/uL (4.3-11.0)
[2023-01-01 14:48] LABS: BILIRUBIN,URINE NEGATIVE (NEGATIVE); COLOR,URINE YELLOW; GLUCOSE, URINE (UA) NEGATIVE (NEGATIVE); KETONES,URINE NEGATIVE (NEGATIVE); LEUKOCYTE ESTERASE ,URINE 3+ (NEGATIVE); NITRITE,URINE NEGATIVE (NEGATIVE); PROTEIN,URINE 2+ (NEGATIVE)
[2023-01-01 14:52] LABS: CLARITY,URINE TURBID; WBC,URINE TNTC /HPF
[2023-01-01 14:57] LABS: INR 1.1 (0.8-1.4); PROTHROMBIN TIME PATIENT 14.5 SEC (12.2-14.7)
[2023-01-01 15:10] LABS: ALBUMIN 3.1 GM/DL (3.2-4.5); BILIRUBIN,TOTAL 0.7 MG/DL (0.1-1.0); CALCIUM 8.1 MG/DL (8.5-10.1); CREATININE SERUM 5.42 MG/DL (0.60-1.30); POTASSIUM 3.9 MMOL/L (3.6-5.0); TOTAL PROTEIN 6.1 GM/DL (6.4-8.2)
[2023-01-01 15:11] LABS: EOSINOPHILS % (MANUAL) 1 %; LYMPHOCYTES % (MANUAL) 6 %; MONOCYTES % (MANUAL) 5 %; NEUTROPHILS % (MANUAL) 8 %
[2023-01-01] MEDS ORDERED: NS IV 1000 ML 1,000 ML IV STA (15:15)
[2023-01-01] MEDS ORDERED: ACETAMINOPHEN 500 MG TABLET PO ONE (16:45)
[2023-01-01 17:50] VITALS: BP 104/52
== END 2023-01-01 17:50 | disposition short-term general hospital (02) ==
LOC: EDUNIT# 14:31 → ER FS 14:32
DX: N17.9 Acute kidney failure, unspecified (principal); R65.20 Severe sepsis without septic shock; R74.02 Elevation of levels of lactic acid dehydrogenase [LDH]; R79.89 Other specified abnormal findings of blood chemistry; E11.9 Type 2 diabetes mellitus without complications; Z79.4 Long term (current) use of insulin; Z28.310 Unvaccinated for COVID-19; Z20.822 Contact with and (suspected) exposure to COVID-19
CPT/HCPCS: 36415; 80053; 81000; 83605; 85007; 85027; 85610; 85730; 87040; 87088; 87636